=== PATIENT | male | born 1950 | race Caucasian/White ===

== ENCOUNTER 2016-04-27 16:00 | Inpatient (IN) | payer OTHER ==
[~2016-04-27] VITALS: Ht 177.8 cm; Wt 84.8 kg
[~2016-04-27 16:00] MED LIST: ALBUAER2 INH; BRVIN INH; FLUT1INH7 INH; GABA-113 PO; GLC5 PO; IPRASOL4 INH; LEVO50TA PO; OXGN; PRFINS INH; PRLSR20 PO; VERA120T2 PO
[2016-04-27] MEDS ORDERED: IPRA1AER2 PO (16:24)
[2016-04-27] MEDS ORDERED: ALBUT/IPRATROP 3MG/0.5MG NEB 3 ML VIAL INH ONE (16:30)
[2016-04-27 16:40] VITALS: PULSE 87; O2SAT 92
[2016-04-27 17:07] LABS: BASO % 0.5 %; BASO ABS # 0.04 K/uL (0-0.2); COMPLETE YES; EOS % 0.7 %; HEMATOCRIT 43.2 % (42-52); IG% 0.1 %; LYMPH % 16.2 %; LYMPH ABS # 1.19 K/uL (1.2-3.4); MEAN CELL VOLUME 98.6 fL (80-100); MEAN CORPUSCULAR HEMOGLOBIN 35.2 pg (25-34); MEAN CORPUSCULAR HGB CONC 35.6 g/dl (32-36); MEAN PLATELET VOLUME 11.7 fL (7.4-10.4); MONO % 8.3 %; NEUT % 74.2 %; PLATELET COUNT 124 K/uL (130-400); RED BLOOD COUNT 4.38 M/uL (4.7-6.1); WHITE BLOOD COUNT 7.36 K/uL (4.8-10.8)
--- NOTE | 2016-04-27 17:10 | DIAGNOSTIC IMAGING REPORT ---
CHEST ONE VIEW PORTABLE CLINICAL HISTORY: cough/sob dyspnea COMPARISON STUDY: 01/31/2015 FINDINGS: Chronic emphysematous change. Interstitial prominence considered chronic. No acute infiltrate. IMPRESSION: Emphysematous change. Mild chronic interstitial prominence. Electronically signed by: Adrián Vincent M.D. 04/27/2016 5:09 PM Dictated Date/Time: 04/27/2016 5:08 PM
[2016-04-27 17:19] LABS: PARTIAL THROMBOPLASTIN RATIO 1.1; PROTHROMBIN TIME (PATIENT) 10.5 SECONDS (9.0-12.0)
[2016-04-27] MEDS ORDERED: CEFTRIAXONE SOD INJ 1 GM ADDVIAL IV STA (17:22)
[2016-04-27 17:29] LABS: ALT/SGPT 52 U/L (12-78); BLOOD UREA NITROGEN 14 mg/dl (7-18); BUN/CREATININE RATIO 13.1 (10-20); CALCIUM 8.9 mg/dl (8.5-10.1); CARBON DIOXIDE 30 mmol/L (21-32); CHLORIDE 96 mmol/L (98-107); GLUCOSE 119 mg/dl (70-99); POTASSIUM 3.6 mmol/L (3.5-5.1); SODIUM 135 mmol/L (136-145)
[2016-04-27 17:34] LABS: ALB/GLOB RATIO 0.9 (0.9-2); ALKALINE PHOSPHATASE 84 U/L (45-117); AST/SGOT 51 U/L (15-37); CKMB/CK RATIO 2.8 (0-3.0)
--- NOTE | 2016-04-27 18:54 | EMERGENCY ROOM VISIT NOTE ---
History Report prepared by Saad: Shaq Freire Under the Supervision of: Dr. Rajinder Ritchie D.O. First contact with patient: 16:09 Chief Complaint: RESPIRATORY PROBLEMS Stated Complaint: SOB/WHEEZING Nursing Triage Summary: Pt to ED via ALS. Pt reports SOB since Saturday. Hx COPD and wears 4.5l NC at home. SOB increased since Saturday without relief. Upon stroke coordinator arrival, pt SPO2 88-89% 4.5LNC. Given duoneb, albuterol and 125mg solumedrol. Upon arrival to ED, wheezes ascultated bilaterally. Breathing labored. History of Present Illness The patient is a 66 year old male with a history of COPD who presents to the Emergency Room via ALS with complaints of worsening shortness of breath beginning three days prior to arrival. He associates a worsening productive cough for the past four days with today's symptoms. The patient states his symptoms worsen with exertion. It is noted the patient wears 4.5 L nasal canula of oxygen at home. As per EMS, the patient had an oxygen saturation of 88-89% on his 4.5 L NC of oxygen. EMS notes they gave the patient Duoneb, Albuterol, and 125 mg Solu-Medrol. The patient states he uses nebulizers at home. Source of History: patient, EMS Onset: 3 days [facility] Position: other (global) Quality: other (SOB) Timing: worsening Modifying Factors (Worsening): exertion Associated Symptoms: + SOB, + cough (worsening productive) Review of Systems See HPI for pertinent positives & negatives. A total of 10 systems reviewed and were otherwise negative. Past Medical & Surgical Medical Problems: (1) Acute respiratory failure (2) Bronchitis (3) Calculus Of Kidney (4) Diab Willa Wo Compl, Type Ii Or Unspec Type, Not Uncntrld (5) Low blood pressure Family History Cancer Diabetes mellitus Kidney disease Kidney stones Lung disease Social History Smoking Status: Current Every Day Smoker Alcohol Use: heavy Housing Status: lives alone Occupation Status: retired Current/Historical Medications Scheduled Albuterol (Ventolin), 2 PUFFS INH QID Arformoterol Tartrate (Brovana 15MCG/2ML Soln), 15 MCG INH BID Fluticasone Furoate-Vilanterol (Breo Ellipta 200-25 Mcg/INH), 1 PUFF INH QAM Formoterol Fumarate (Perforomist), 20 MCG INH BID Gabapentin (Neurontin), 300 MG PO HS Glipizide (Glipizide), 5 MG PO DAILY Ipratropium-Albuterol (Combivent Respimat), 2 PUFFS PO Q6 Levothyroxine Sodium (Synthroid), 50 MCG PO DAILY Omeprazole (Prilosec), 20 MG PO DAILY Oxygen (Oxygen), 4.5 LITERS NA CONTINOUS Verapamil Sust Rel (Calan Sr Ext Rel), 120 MG PO DAILY Allergies Coded Allergies: Poultry Meal (Verified Allergy, Intermediate, TURKEY - HIVES, RASH, NAUSEA , 04/27/16) Physical Exam Vital Signs Date Time Temp Pulse Resp B/P Pulse Ox O2 Delivery O2 Flow Rate FiO2 04/27/16 18:00 100 22 129/92 96 04/27/16 17:03 87 04/27/16 16:40 87 22 92 Nasal Cannula 5.0 04/27/16 16:22 98 Nasal Cannula 4.5 04/27/16 16:16 98 Nasal Cannula 4.5 04/27/16 16:09 99 Nasal Cannula 4.5 04/27/16 16:09 36.6 86 36 144/86 98 Nasal Cannula 4.5 Physical Exam CONSTITUTIONAL/VITAL SIGNS: Reviewed / noted above. GENERAL: Non-toxic in appearance. INTEGUMENTARY: Warm, dry, and [place]. HEAD: Normocephalic. EYES: without scleral icterus or trauma. ENT/OROPHARYNX: clear and moist. LYMPHADENOPATHY/NECK: Is supple without lymphadenopathy or meningismus. RESPIRATORY: Increased work of breathing. Bilateral expiratory wheezing. CARDIOVASCULAR: Regular rate and rhythm. GI/ABDOMEN: Soft and nontender. No organomegaly or pulsatile mass. No rebound or guarding. Normal bowel sounds. EXTREMITIES: Warm and well perfused. BACK: No CVA tenderness. NEUROLOGICAL: Intact without focal deficits. PSYCHIATRIC: normal affect. MUSCULOSKELETAL: Normally developed with good muscle tone. Medical Decision & Procedures ER Provider Diagnostic Interpretation: X ray results and stated below per my interpretation and radiology interpretation. CHEST ONE VIEW PORTABLE CLINICAL HISTORY: cough/sob dyspnea COMPARISON STUDY: 01/31/2015 FINDINGS: Chronic emphysematous change. Interstitial prominence considered chronic. No acute infiltrate. IMPRESSION: Emphysematous change. Mild chronic interstitial prominence. Electronically signed by: Adrián Vincent M.D. 04/27/2016 5:09 PM Laboratory Results 04/27/16 16:51 Red Blood Count 4.38, Mean Corpuscular Volume 98.6, Mean Corpuscular Hemoglobin 35.2, Mean Corpuscular Hemoglobin Concent 35.6, Mean Platelet Volume 11.7, Neutrophils (%) (Auto) 74.2, Lymphocytes (%) (Auto) 16.2, Monocytes (%) (Auto) 8.3, Eosinophils (%) (Auto) 0.7, Basophils (%) (Auto) 0.5, Neutrophils # (Auto) 5.46, Lymphocytes # (Auto) 1.19, Monocytes # (Auto) 0.61, Eosinophils # (Auto) 0.05, Basophils # (Auto) 0.04 04/27/16 16:51 Test 04/27/16 16:51 White Blood Count 7.36 K/uL (4.8-10.8) Red Blood Count 4.38 M/uL (4.7-6.1) Hemoglobin 15.4 g/dL (14.0-18.0) Hematocrit 43.2 % (42-52) Mean Corpuscular Volume 98.6 fL (80-100) Mean Corpuscular Hemoglobin 35.2 pg (25-34) Mean Corpuscular Hemoglobin Concent 35.6 g/dl (32-36) Platelet Count 124 K/uL (130-400) Mean Platelet Volume 11.7 fL (7.4-10.4) Neutrophils (%) (Auto) 74.2 % Lymphocytes (%) (Auto) 16.2 % Monocytes (%) (Auto) 8.3 % Eosinophils (%) (Auto) 0.7 % Basophils (%) (Auto) 0.5 % Neutrophils # (Auto) 5.46 K/uL (1.4-6.5) Lymphocytes # (Auto) 1.19 K/uL (1.2-3.4) Monocytes # (Auto) 0.61 K/uL (0.11-0.59) Eosinophils # (Auto) 0.05 K/uL (0-0.5) Basophils # (Auto) 0.04 K/uL (0-0.2) RDW Standard Deviation 44.5 fL (36.4-46.3) RDW Coefficient of Variation 12.4 % (11.5-14.5) Immature Granulocyte % (Auto) 0.1 % Immature Granulocyte # (Auto) 0.01 K/uL (0.00-0.02) Prothrombin Time 10.5 SECONDS (9.0-12.0) Prothromb Time International Ratio 1.0 (0.9-1.1) Activated Partial Thromboplast Time 28.1 SECONDS (21.0-31.0) Partial Thromboplastin Ratio 1.1 Anion Gap 9.0 mmol/L (3-11) Est Creatinine Clear Calc Drug Dose 70.1 ml/min Estimated GFR () 81.8 Estimated GFR (Non- 70.6 BUN/Creatinine Ratio 13.1 (10-20) Calcium Level 8.9 mg/dl (8.5-10.1) Total Bilirubin 0.9 mg/dl (0.2-1) Aspartate Amino Transf (AST/SGOT) 51 U/L (15-37) Alanine Aminotransferase (ALT/SGPT) 52 U/L (12-78) Alkaline Phosphatase 84 U/L (45-117) Total Creatine Kinase 130 U/L (39-308) Creatine Kinase MB 3.7 ng/ml (0.5-3.6) Creatine Kinase MB Ratio 2.8 (0-3.0) Troponin I < 0.015 ng/ml (0-0.045) Total Protein 7.5 gm/dl (6.4-8.2) Albumin 3.5 gm/dl (3.4-5.0) Globulin 4.0 gm/dl (2.5-4.0) Albumin/Globulin Ratio 0.9 (0.9-2) Laboratory results as stated above per my review. Medications Administered Medications (Trade) Dose Ordered Sig/Fadi Route Start Time Stop Time Status Last Admin Dose Admin Albuterol/ Ipratropium (Duoneb) 12 ml ONE ONCE INH 04/27/16 16:30 04/27/16 16:31 DC 04/27/16 16:40 12 ML Ceftriaxone Sodium (Rocephin Inj) 1 gm NOW STAT IV 04/27/16 17:22 04/27/16 17:24 DC 04/27/16 18:15 1 GM ECG Indication: SOB/dyspnea Rate (beats per minute): 83 Rhythm: normal sinus Findings: no ectopy, other (no acute injury) ED Course 1616: Previous medical records were reviewed. The patient was evaluated in room B5. A complete history and physical examination was performed. 163: Ordered Duoneb 12 ml INH. 172: Ordered Rocephin Inj 1 gm IV. 184: Reevaluated the patient at this time, and he is feeling better but does not feel comfortable going home. 1851: I spoke to Marissa Geller (Hospitalist) about the patient's case , and she will follow the patient for further evaluation. Medical Decision The differential was considered includes acute myocardial infarction, acute coronary syndrome, myocarditis, pericarditis, pericardial effusions /tamponad, esophageal perforation, pulmonary embolism, pneumonia, pneumothorax, cardiomyopathy, congestive heart, anemia , COPD/asthma exacerbation. This is a 66-year-old male who presents to the ED with a chief complaint of shortness of breath. The patient states that he developed a cough on Saturday, 4 days ago. He also reports increasing shortness of breath over the past several days. He normally uses 4.5 L of nasal cannula oxygen at home. His oxygen saturations at home were 88-99% when EMS arrived on his 4.5 L. The patient received Solu-Medrol IV as well as a DuoNeb treatment in route to the hospital. The reports his cough as being productive but he swallows it. He has not seen what looks like. The patient's physical exam reveals stable vital signs. His oxygen saturations are adequate on his 4.5 L although he does appear to have increased work of breathing and tachypnea and he has expiratory wheezing on exam. A chest x-ray did not show acute disease or pneumonia. EKG shows a normal sinus rhythm. CBC and complete metabolic panel were normal. Troponin is negative. The patient was treated with a one hour DuoNeb treatment here. He was also given IV Rocephin. He was not given steroids because of his diabetes. The patient's saturations did improve during his ED stay. He was still having some mild respiratory complaints at the time of disposition. He did not feel comfortable going home at this point. I spoke with the hospitalist , who will see the patient for further inpatient observation. Consults Time Called: 1850 Consulting Physician: Marissa Geller (Hospitalist) Returned Call: 1851 I spoke to Marissa Geller (Hospitalist) about the patient's case, and she will follow the patient for further evaluation. Impression Primary Impression: COPD (chronic obstructive pulmonary disease) Additional Impression: Bronchitis Scribe Attestation The scribe's documentation has been prepared under my direction and personally reviewed by me in its entirety. I confirm that the note above accurately reflects all work, treatment, procedures, and medical decision making performed by me. Departure Information Dispostion Being Evaluated By Hospitalist (Marissa Geller (Hospitalist)) Referrals Freedom Taylor M.D. (PCP) Problem Qualifiers
[2016-04-27] MEDS ORDERED: METHYLPREDNISOLONE IV 40 MG in SYRINGE 0 ML IV ONE (20:00)
[2016-04-27 20:09] LABS: MAGNESIUM 2.1 mg/dl (1.8-2.4); THYROID STIMULATING HORMONE 0.326 uIu/ml (0.300-4.500)
[2016-04-27 20:17] LABS: ARTERIAL BLD GAS O2 SATURATION 97.2 % (90-95); ARTERIAL BLOOD GAS BASE EXCESS 2.8 mEq/L (-9-1.8); ARTERIAL BLOOD GAS HCO3 29 mmol/L (19-24); ARTERIAL BLOOD GAS PO2 95 mm/Hg (80-95); ARTERIAL BLOOD GAS pH 7.39 (7.35-7.45)
[2016-04-27 20:18] LABS: ALLEN TEST POS (POS); O2 ADMINISTRATION 5 L
[2016-04-27] MEDS ORDERED: ACETAMINOPHEN 325 MG TAB PO PRN (20:30)
[2016-04-27] MEDS ORDERED: LORAZEPAM 2 MG/ML 1 ML VIAL IV PRN ×2 (20:30→22:30)
[2016-04-27] MEDS ORDERED: PROMETHAZINE HCL INJ 12.5 MG in SODIUM CHLORIDE 0.9% 50ML 50 ML IV PRN (20:30)
[2016-04-27] MEDS ORDERED: NITROGLYCERIN 0.4 MG SL PER TAB CHARGE SL PRN (20:30)
[2016-04-27] MEDS ORDERED: GLUCAGON FOR INJ 1 MG VIAL SQ PRN (20:30)
[2016-04-27] MEDS ORDERED: GLUCOSE 40% GEL 15 GM TUBE PO PRN (20:30)
[2016-04-27] MEDS ORDERED: GLUCOSE 10 TABS/TUBE PO PRN (20:30)
[2016-04-27] MEDS ORDERED: DEXTROSE 50% 50 ML SYR IV PRN (20:30)
[2016-04-27] MEDS ORDERED: ONDANSETRON INJ 2 MG/ML 2 ML VIAL IV PRN (20:30)
[2016-04-27] MEDS ORDERED: MoRPHine SULFATE 2 MG/ML CARP IV PRN (20:30)
[2016-04-27] MEDS ORDERED: TRAMADOL HCL 50 MG TAB PO PRN (20:30)
[2016-04-27] MEDS ORDERED: LEVALBUTEROL/IPRATROPIUM NEB INH PRN (20:30)
[2016-04-27] MEDS: IPRATROPIUM BROMIDE NEB SOLN 0.02% 2.5 ML VIAL INH SCH (21:00)
[2016-04-27] MEDS: LEVALBUTEROL 1.25MG/0.5ML NEB INH SCH (21:00)
[2016-04-27] MEDS: INSULIN ASPART 100 UNITS/ML 3 ML PEN SC SCH (21:00)
[2016-04-27] MEDS ORDERED: LEVALBUTEROL/IPRATROPIUM NEB INH SCH (21:00)
[2016-04-27 21:24] VITALS: BP 145/83; PULSE 94; TEMP 36.6; O2SAT 96; Ht 177.8 cm; Wt 84.8 kg
[2016-04-27] MEDS ORDERED: AMPICILLIN/SULBACTAM SOD INJ 3,000 MG in SODIUM CHLORIDE 0.9% 100ML 100 ML IV ONE (21:45)
[2016-04-27] MEDS ORDERED: NSS + 20MEQ KCL 1000ML 1,000 ML IV ONE (22:00)
[2016-04-27] MEDS ORDERED: LORAZEPAM INJ 0.25 MG in SYRINGE 0.125 ML IV PRN (22:30)
[2016-04-27] MEDS ORDERED: IPRATROPIUM BROMIDE NEB SOLN 0.02% 2.5 ML VIAL INH PRN (22:30)
[2016-04-27] MEDS ORDERED: LEVALBUTEROL 1.25MG/0.5ML NEB INH PRN (22:30)
[2016-04-27] MEDS ORDERED: POLYETHYLENE (MIRALAX) 17 GM PACK PO PRN (22:30)
[2016-04-27] MEDS ORDERED: POLYETHYLENE (MIRALAX) 17 GM PACK PO ONE (22:45)
[2016-04-27] MEDS ORDERED: PANTOprazole SOD 40 MG TAB PO ONE (22:53)
[2016-04-27] MEDS ORDERED: DOCUSATE SODIUM 100 MG CAP PO ONE (23:00)
[2016-04-27] MEDS: GABAPENTIN 300 MG CAP PO SCH (23:09)
[2016-04-27 23:15] VITALS: BP 145/81; PULSE 80; TEMP 36.5; O2SAT 95
[2016-04-28] VITALS (10 sets, daily range): BP systolic 126–153; BP diastolic 72–83; PULSE 64–82; TEMP 36.3–36.7; O2SAT 94–97
[2016-04-28] MEDS: LEVALBUTEROL 1.25MG/0.5ML NEB INH SCH ×4 (02:19→19:10)
[2016-04-28] MEDS: IPRATROPIUM BROMIDE NEB SOLN 0.02% 2.5 ML VIAL INH SCH ×4 (02:19→19:10)
[2016-04-28] MEDS ORDERED: INSULIN GLARGINE SOLOSTAR 100 UNITS/ML 3 ML PEN SC ONE (04:53)
[2016-04-28 05:28] LABS: BASO % 0.2 %; BASO ABS # 0.01 K/uL (0-0.2); COMPLETE YES; HEMATOCRIT 38.6 % (42-52); IG% 0.2 %; LYMPH % 9.7 %; LYMPH ABS # 0.42 K/uL (1.2-3.4); MEAN CELL VOLUME 95.5 fL (80-100); MEAN CORPUSCULAR HEMOGLOBIN 34.7 pg (25-34); MEAN CORPUSCULAR HGB CONC 36.3 g/dl (32-36); MEAN PLATELET VOLUME 10.9 fL (7.4-10.4); MONO % 3.2 %; NEUT % 86.7 %; PLATELET COUNT 116 K/uL (130-400); RED BLOOD COUNT 4.04 M/uL (4.7-6.1); WHITE BLOOD COUNT 4.33 K/uL (4.8-10.8)
[2016-04-28 05:55] LABS: BLOOD UREA NITROGEN 17 mg/dl (7-18); BUN/CREATININE RATIO 17.4 (10-20); CALCIUM 8.6 mg/dl (8.5-10.1); CARBON DIOXIDE 34 mmol/L (21-32); CHLORIDE 100 mmol/L (98-107); GLUCOSE 155 mg/dl (70-99); POTASSIUM 4.3 mmol/L (3.5-5.1); SODIUM 139 mmol/L (136-145)
[2016-04-28] MEDS: LEVOTHYROXINE 50 MCG TAB PO SCH (06:06)
--- NOTE | 2016-04-28 06:18 | HISTORY & PHYSICAL EXAMINATION ---
DATE OF ADMISSION: 04/27/2016 PRIMARY CARE DOCTOR: Dr. Schmidt. CHIEF COMPLAINT: Worsening cough, shortness of breath. HISTORY OF PRESENT ILLNESS: Medical history significant for chronic respiratory failure secondary to COPD on home O2, ongoing tobacco abuse, PAT as per records, DM2 on oral meds, hypothyroidism. episodic thrombocytopenia. Recent confinement last January 2015 for COPD exacerbation. Last few days px noted worsening junky cough, sob symptoms. Admits to some coughing w/meals. Describes chest pain described as burning, heartburn like. As per EMS, O2 sats 80s on 4 liters. At the Emergency Room, the patient noted to be in respiratory distress. Px received ceftriaxone and albuterol for COPD exacerbation. MEDICAL HISTORY: As above. Recent visit at [facility] last April 2016. Very severe COPD as per records with FEV 27%. Chest CT contrast January 2016 showed interval resolution, small nodular ground-glass opacities in the lung, probable fibrosis right apex; [address] recommended to assure stability. As per recent [facility] note, ipratropium to added to albuterol nebs. ENT referral for dysphagia swallowing. Patient counseled about smoking cessation> Chest CT in 6 months. Pulmonary rehab routinely. Consider obtaining alpha 1 antitrypsin. Consider NPO versus PSG to rule out sleep apnea to determine oxygen need. SURGERIES: Urologic procedures. HOME MEDICATIONS: IVentolin, Neurontin, glipizide, Combivent, Synthroid, oxygen. Px stopped taking Prilosec weeks ago because he reflux was better. ALLERGIES: poultry. FAMILY HISTORY: Family history of heart disease. PERSONAL AND SOCIAL HISTORY: Pack a day. No chronic intake of alcoholic beverages. 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 REVIEW OF SYSTEMS: As per HPI, all other ROS negative. PHYSICAL EXAMINATION: VITAL SIGNS: Blood pressure noted to be 144/86 pulse rate 86, RR 36 and later 22, temperature 36.6, sats 98 on 4 liters. GENERAL: Noted to be in respiratory distress, looks older for stated age. SKIN: Normal. HEENT: [place] palpebral conjunctivae. Dry mucosa. NECK: Short neck. RESPIRATORY: Expiratory wheezes. CHEST: Regular rate and rhythm. ABDOMEN: Some distention, nontender. EXTREMITIES: No edema. no tenderness NEUROLOGIC: No gross focality. LABS: Hemoglobin 15.1, white cell count 7.3, platelets 124. Sodium 136, potassium 4.6, chloride 96, CO2 of 30, BUN 40, creatinine 1.1, glucose was noted to be 119. trop 0 Hemoglobin A1c from September 2015 was 5.4. Chest x-ray showed emphysema, interstitial prominence. ABG: pH 7.39, pCO2 of 49, pO2 of 95 on 5 liters. EKG: Rate 85, normal sinus rhythm, incomplete right bundle branch block. ASSESSMENT: 1. Acute on chronic hypoxemic respiratory failure secondary to chronic obstructive pulmonary disease exacerbation poss aspiration pneumonitis no sepsis 2. ongoing tobacco abuse 3. DM2 on oral meds, well controlled as of recent HgA1C. 4. chronic thrombocytopenia 5. GERD/heartburn sx px stopped taking home PPI for some weeks now PLAN: PCU supplemental O2 Augmentin for possible aspiration pneumonitis, nebs, steroids. Pulmonary consult for COPD exacerbation, resp failure. Swallow eval. ISS BG goal 140-180, may need basal insulin. Patient due for hemoglobin A1c recheck. Nicotine patch. resume home PPI DVT prophylaxis, SCDs RE thrombocytopenia. Full code. MTDD
[2016-04-28 06:40] LABS: ESTIMATED AVERAGE GLUCOSE 108 mg/dl; HA1C FLAG Normal (Normal)
[2016-04-28] MEDS: INSULIN ASPART 100 UNITS/ML 3 ML PEN SC SCH ×4 (08:55→20:37)
[2016-04-28] MEDS: AMOXICILLIN/CLAVULANATE TAB 875 MG TAB PO SCH ×2 (08:58→16:50)
[2016-04-28] MEDS: VERAPAMIL HCL 120 MG TABCR PO SCH (08:58)
[2016-04-28] MEDS: DOCUSATE SODIUM 100 MG CAP PO SCH (08:58)
[2016-04-28] MEDS: NICOTINE 21 MG/24 HR TDSY TD SCH (08:58)
[2016-04-28] MEDS: PANTOprazole SOD 40 MG TAB PO SCH (08:59)
[2016-04-28] MEDS ORDERED: CONSULT PHARMACY SCH (09:00)
--- NOTE | 2016-04-28 10:29 | Pulmonary Consultation ---
History General Date of Service: Apr 28, 2016. Stated Complaint: Respiratory Failure HPI The patient is a 66 year old male who presents to [facility] with complaints of Respiratory Failure. The patient's primary care provider is Derrell Schmidt M.D.(SÁNCHEZ). 66-year-old male with very severe COPD admitted with acute on chronic respiratory insufficiency/failure. The patient has been experiencing fever, rhinitis, sore throat and progressive dyspnea on exertion/at rest over the last 3-4 days. He is also noted increasing cough but inability to clear her mucous secretions. During our interview the patient denied: Pleurisy, cardiac chest pain, chills or hemoptysis. EMS records note SaO2 of 80s on 4L ED treatment: Ceftriaxone Abulterol AB.39/49/95/295LAa gradient 91 Serum Bicarb: 34 (baseline PaCO2: 60) CXR: hilar fullness with no acute intra-parenchymal changes compared to 2014 CT thorax (01/18/15) emphysema with RUL bronchiectasis vs. nodule Treatment: Incoterm patch Prednisone 40mg Augmentin 875/125 BID Xopenex/Atrovent Nebs Q4 prn Xopenex/Atrovent Nebs Q6 Historian: patient, EMS Review of Systems Constitutional: reports: malaise, weakness Eyes: reports: no symptoms ENT: reports: rhinorrhea, sore throat Cardiovascular: reports: no symptoms Respiratory: reports: MCGILL, cough, shortness of breath Gastrointestinal: reports: other (dysphagia) Genitourinary - Male: reports: no symptoms Musculoskeletal: reports: myalgias Integumentary: reports: no symptoms Neurologic: reports: no symptoms Psychiatric: reports: no symptoms Endocrine: no symptoms Hematologic / Lymphatic: no symptoms Allergic / Immunologic: no symptoms Past Medical History Past Medical History: 1)Very Sever COPD (FEV1: 19%-01/18/15) a.Pulm Rehab: () b.Oximetry (03/14/12) <=88% 40sec 2)ACOS: FEV1 (0.67/19%--0.94/27%) post-bronchodilator 3)O2 dependent3.5L 4)MIRANDA 5)Tobacco abuse 6)DM II 7)Hypothyroidism 8)HTN 9)Neuropathy 10)Colonic poly Past Medical History: COPD, diabetes, hypothyroidism, other Past Surgical History: 1)Urologic 2)Bronchoscopy 3)Colonoscopy/polypectomy 4)PTCA (03/19/08) Sandi Past Surgical History: other Family History Cancer Diabetes mellitus Kidney disease Kidney stones Lung disease Social History Hx Tobacco Use In Past Year?: Yes Smoking Status: Current Every Day Smoker Alcohol: socially, daily, other Drug Use: none Housing status: lives alone Occupational Status: retired Immunizations History of Influenza Vaccine: N/A History of Tetanus Vaccine?: Yes Tetanus Immunization Date: Jul 17, 2010 History of Pneumococcal: Yes Pneumococcal Date: Dec 06, 2008 History of Hepatitis B Vaccine: No History of MDRO History of MDRO: No Allergies Coded Allergies: Poultry Meal (Verified Allergy, Intermediate, TURKEY - HIVES, RASH, NAUSEA , 04/27/16) Current Medications Reported Home Medications Medications Dose Route/Sig Max Daily Dose Days Date Category Combivent Respimat (Ipratropium-Albuterol) 1 Aer Aer 2 Puffs PO Q6 04/27/16 Reported Brovana 15MCG/2ML Soln (Arformoterol Tartrate) Nebu 15 Mcg INH BID 02/02/15 Rx Perforomist (Formoterol Fumarate) 20 Mcg/2 Ml Nebu 20 Mcg INH BID 02/02/15 Rx Breo Ellipta 200-25 Mcg/INH (Fluticasone Furoate-Vilanterol) 1 Inh Inh 1 Puff INH QAM 01/27/15 Reported Glipizide 5 Mg Tab 5 Mg PO DAILY 01/27/15 Reported Calan Sr Ext Rel (Verapamil HCl) 120 Mg Tabcr 120 Mg PO DAILY 07/19/12 Rx Ventolin (Albuterol) Inh 2 Puffs INH QID 5 07/17/12 Reported Synthroid (Levothyroxine Sodium) 50 Mcg Tab 50 Mcg PO DAILY 03/10/12 Reported Oxygen Gas 4.5 Liters NA CONTINOUS 06/14/11 Reported Neurontin (Gabapentin) 300 Mg Cap 300 Mg PO HS 06/14/11 Reported Prilosec (Omeprazole) 20 Mg Capcr 20 Mg PO DAILY 06/28/09 Reported Physical Physical Exam Vital Signs: Date Time Temp Pulse Resp B/P Pulse Ox O2 Delivery O2 Flow Rate FiO2 04/28/16 08:00 Nasal Cannula 4.5 04/28/16 07:48 36.7 82 16 126/76 95 Nasal Cannula 5.0 04/28/16 07:37 81 18 95 Nasal Cannula 5.0 04/28/16 04:21 36.7 82 20 130/74 94 4.5 04/28/16 04:00 Nasal Cannula 4.5 04/28/16 02:20 81 18 97 Nasal Cannula 5.0 04/28/16 00:00 Nasal Cannula 5.0 04/27/16 23:15 36.5 80 18 145/81 95 Room Air 04/27/16 21:24 36.6 94 20 145/83 96 Nasal Cannula 5.0 04/27/16 20:24 98 16 157/82 92 Nasal Cannula 4.5 04/27/16 18:00 100 22 129/92 96 04/27/16 17:03 87 04/27/16 16:40 87 22 92 Nasal Cannula 5.0 04/27/16 16:22 98 Nasal Cannula 4.5 04/27/16 16:16 98 Nasal Cannula 4.5 04/27/16 16:09 99 Nasal Cannula 4.5 04/27/16 16:09 36.6 86 36 144/86 98 Nasal Cannula 4.5 General Appearance: mild distress Head: NORMOCEPHALIC, ATRAUMATIC Eyes: PERRLA, NO DISCHARGE, EOMI, SCLERAE NORMAL ENT: NORMAL EAR EXAM, NORMAL NASAL EXAM, other (posterior pharyngeal erythema) Neck: NORMAL RANGE OF MOTION, NO TENDERNESS, TRACHEA MIDLINE, NO STRIDOR Respiratory: other (decreased breath sounds bilaterally) Cardiovasular: REGULAR RATE/RHYTHM, NORMAL S1S2, NO M/G/R, NO MURMUR, NO GALLOP Abdomen: NON TENDER, NORMAL BOWEL SOUNDS, NO REBOUND, NO MASSES, NO GUARDING, NO ORGANOMEGALY Genitourinary - Male: EXTERNAL GENITALIA NORMAL Back: NORMAL INSPECTION, NO MIDLINE TENDERNESS, NO CVA TENDERNESS, NO PARAVERTEBRAL TTP Upper Extremities: NO EDEMA, NO DEFORMITY, NORMAL ROM Lower Extremities: NO EDEMA, NO DEFORMITY, NORMAL ROM Pulses: carotid (R) (2+), carotid (L) (2+), posterior tibial (R), posterior tibial (L) Neuro: ALERT, ORIENTED x 3, NORMAL MOTOR EXAM, NORMAL SENSATION, NORMAL CEREBELLAR EXAM Reflexes: biceps (R) (2+), bicpes (L) (2+), patellar (R) (2+), patellar (L) (2+ ) Babinski Testing: right (downgoing), left (downgoing) Psychiatric: NORMAL AFFECT, NO SUICIDAL IDEATION, CONTRACTS FOR SAFETY Diagnostics Labs Results Past 24 Hours Test 04/27/16 16:51 04/27/16 20:07 04/27/16 22:55 04/28/16 05:10 Range/Units White Blood Count 7.36 4.33 4.8-10.8 K/uL Red Blood Count 4.38 4.04 4.7-6.1 M/uL Hemoglobin 15.4 14.0 14.0-18.0 g/dL Hematocrit 43.2 38.6 42-52 % Mean Corpuscular Volume 98.6 95.5 80-100 fL Mean Corpuscular Hemoglobin 35.2 34.7 25-34 pg Mean Corpuscular Hemoglobin Concent 35.6 36.3 32-36 g/dl Platelet Count 124 116 130-400 K/uL Mean Platelet Volume 11.7 10.9 7.4-10.4 fL Neutrophils (%) (Auto) 74.2 86.7 % Lymphocytes (%) (Auto) 16.2 9.7 % Monocytes (%) (Auto) 8.3 3.2 % Eosinophils (%) (Auto) 0.7 0.0 % Basophils (%) (Auto) 0.5 0.2 % Neutrophils # (Auto) 5.46 3.75 1.4-6.5 K/uL Lymphocytes # (Auto) 1.19 0.42 1.2-3.4 K/uL Monocytes # (Auto) 0.61 0.14 0.11-0.59 K/uL Eosinophils # (Auto) 0.05 0.00 0-0.5 K/uL Basophils # (Auto) 0.04 0.01 0-0.2 K/uL RDW Standard Deviation 44.5 42.3 36.4-46.3 fL RDW Coefficient of Variation 12.4 12.1 11.5-14.5 % Immature Granulocyte % (Auto) 0.1 0.2 % Immature Granulocyte # (Auto) 0.01 0.01 0.00-0.02 K/uL Prothrombin Time 10.5 9.0-12.0 SECONDS Prothromb Time International Ratio 1.0 0.9-1.1 Activated Partial Thromboplast Time 28.1 21.0-31.0 SECONDS Partial Thromboplastin Ratio 1.1 Sodium Level 135 139 136-145 mmol/L Potassium Level 3.6 4.3 3.5-5.1 mmol/L Chloride Level 96 100 98-107 mmol/L Carbon Dioxide Level 30 34 21-32 mmol/L Anion Gap 9.0 5.0 3-11 mmol/L Blood Urea Nitrogen 14 17 7-18 mg/dl Creatinine 1.10 1.00 0.60-1.40 mg/dl Est Creatinine Clear Calc Drug Dose 70.1 77.1 ml/min Estimated GFR () 81.8 91.8 Estimated GFR (Non- 70.6 79.2 BUN/Creatinine Ratio 13.1 17.4 10-20 Random Glucose 119 155 70-99 mg/dl Estimated Average Glucose 108 mg/dl Hemoglobin A1c 5.4 4.5-5.6 % Calcium Level 8.9 8.6 8.5-10.1 mg/dl Magnesium Level 2.1 1.8-2.4 mg/dl Total Bilirubin 0.9 0.2-1 mg/dl Aspartate Amino Transf (AST/SGOT) 51 15-37 U/L Alanine Aminotransferase (ALT/SGPT) 52 12-78 U/L Alkaline Phosphatase 84 45-117 U/L Total Creatine Kinase 130 39-308 U/L Creatine Kinase MB 3.7 0.5-3.6 ng/ml Creatine Kinase MB Ratio 2.8 0-3.0 Troponin I < 0.015 < 0.015 0-0.045 ng/ml Pro-B-Type Natriuretic Peptide 456 0-900 pg/ml Total Protein 7.5 6.4-8.2 gm/dl Albumin 3.5 3.4-5.0 gm/dl Globulin 4.0 2.5-4.0 gm/dl Albumin/Globulin Ratio 0.9 0.9-2 Thyroid Stimulating Hormone (TSH) 0.326 0.300-4.500 uIu/ml Hepatitis C Antibody Screen NEG NEG Arterial Blood pH 7.39 7.35-7.45 Arterial Blood Partial Pressure CO2 49 35-46 mmHg Arterial Blood Partial Pressure O2 95 80-95 mm/Hg Arterial Blood HCO3 29 19-24 mmol/L Arterial Blood Oxygen Saturation 97.2 90-95 % Arterial Blood Base Excess 2.8 -9-1.8 mEq/L Arterial Blood Gas Delivery 5 L Hussein Test POS POS Bedside Glucose 256 70-99 mg/dl Test 04/28/16 07:25 Range/Units Bedside Glucose 147 70-99 mg/dl Microbiology Results 04/27/16 Blood Culture, Received Pending 04/27/16 Blood Culture, Received Pending Diagnostic Radiology CXR: hilar fullness with no acute intra-parenchymal changes compared to 2014 EKG Interpretation: NORMAL EKG Impression Assessment and Plan 66-year-old male admitted with acute on chronic respiratory insufficiency: #1 Acute COPD/ACOS (Asthma Combined Obstructive Syndrom) flare: At this time agree with continuing prednisone dosing and nebulizers as scheduled. I do suggest as the patient has a history of possibly dysphagia which could cause minimal aspiration and exacerbation that we get more aggressive with his antibiotic regimen and switch to ceftriaxone/Flagyl at this time. Also suggest that we initiate Dornase therapy as well as Tamiflu, obtaining nasal swab for influenza this patient has clinical history suggestive of influenza. Sputum samples are currently pending the patient is unable to produce at this time. Continuation of oxygen support maintaining SaO2 between 88 and 92% #2 Chronic COPD/ACOS: We'll monitor the patient for 24 hours then we initiate outpatient chronic therapy. I will require the [facility] reports. But at this time LAMA/LABA therapy with addition of inhaled corticosteroids would be recommended. Patient is on these then initiation of Daliresp or also be warranted. #3 ID: This patient has history of possible dysphagia/aspiration and clinical history suggestive of influenza we will initiate more aggressive antibiotic regimen as well as Tamiflu. Also place patient in droplet precaution until he is been ruled out for influenza. #4. nodule: Patient does have a history of pulmonary nodule/bronchiectasis previously seen on CAT scan from 01/18/2015. He notes that in the [facility] system is had follow-up CTs which would be nice to obtain. He has also been worked up by bronchoscopy possibly even a/ENB. Patient reports would be helpful to guide future treatment/follow-up. Thank you for this consultation.
[2016-04-28] MEDS: CEFTRIAXONE SOD INJ 2,000 MG in DEXTROSE 5% 50ML 50 ML IV SCH (12:48)
[2016-04-28] MEDS: METRONIDAZOLE / NSS 500 MG in PREMIXED NSS 100 ML IV SCH ×2 (13:45→19:40)
[2016-04-28 14:28] LABS: INFLUENZA A PCR Neg for Influ A (NEG); INFLUENZA B PCR Neg for Influ B (NEG)
--- NOTE | 2016-04-28 14:52 | Progress Note ---
Internal Med Progress Note Date of Service: Apr 28, 2016. Provider Documentation: SUBJECTIVE: Patient is seen and examined at bedside. States having SOB and wheezing associated with dry cough. Denies any chest pain, nausea, dizziness, hemoptysis. Admits to continued smoking at home. OBJECTIVE: Vital Signs-as noted below Physical Exam: General Appearance:Moderately built and nourished, mild resp. distress Head: normocephalic, Atraumatic Eyes: normal inspection, EOMI, PERRLA Neck: supple, Trachea midline Respiratory/Chest: Decreased breath sounds, Expiratory wheezes Cardiovascular: S1, S2, No murmur Abdomen/GI:Soft, Non tender, Bowel sounds present Extremities/Musculoskelatal:normal inspection, no edema Neurologic/Psych:AAOX3, grossly no focal neurological deficits Skin: normal color, warm Lab data as noted below. ASSESSMENT & PLAN: Acute on chronic hypoxemic respiratory failure Acute COPD/Asthma Combined Obstructive Syndrome Exacerbation Current smoker On 4.5L NC oxygen at home PCR influenza:Negative; DC Tamiflu CXR:Emphysematous change. Mild chronic interstitial prominence Continue IV antibiotics, bronchodilators, glucocorticoids Appreciate Pulmonology help Continue oxygen support, Dornase therapy per Pulm Follow up cultures Possible aspiration Swallow eval Continue IV antibiotics Hypothyroidism Continue levothyroxine Tobacco abuse use disorder States tried to quit multiple times but was not successful Nicotine patch. Counselled to quit smoking DM II Well controlled Last A1c:5.4 Hold oral meds ISS, Accu checks Chronic Thrombocytopenia: Continue to monitor DVT PX: SCDs CODE STATUS: Full code. DISPOSITION: continue to monitor PROCEDURES: CT CHEST: JAN 2016: Impression: Interval resolution of small nodular ground glass opacities in the lungs. The patient has developed probable fibrosis in the right apex but [address] scan is recommended to assure stability. Vital Signs: Date Time Temp Pulse Resp B/P Pulse Ox O2 Delivery O2 Flow Rate FiO2 04/28/16 15:54 Nasal Cannula 4.5 04/28/16 14:55 36.3 72 16 138/76 97 Nasal Cannula 4.5 04/28/16 14:40 69 18 96 Nasal Cannula 5.0 04/28/16 12:21 Nasal Cannula 4.5 04/28/16 11:49 36.6 70 16 149/83 96 Nasal Cannula 4.5 04/28/16 08:00 Nasal Cannula 4.5 04/28/16 07:48 36.7 82 16 126/76 95 Nasal Cannula 5.0 04/28/16 07:37 81 18 95 Nasal Cannula 5.0 04/28/16 04:21 36.7 82 20 130/74 94 4.5 04/28/16 04:00 Nasal Cannula 4.5 04/28/16 02:20 81 18 97 Nasal Cannula 5.0 04/28/16 00:00 Nasal Cannula 5.0 04/27/16 23:15 36.5 80 18 145/81 95 Room Air 04/27/16 21:24 36.6 94 20 145/83 96 Nasal Cannula 5.0 04/27/16 20:24 98 16 157/82 92 Nasal Cannula 4.5 04/27/16 18:00 100 22 129/92 96 Lab Results: Results Past 24 Hours Test 04/27/16 20:07 04/27/16 22:55 04/28/16 05:10 04/28/16 07:25 Range/Units Arterial Blood pH 7.39 7.35-7.45 Arterial Blood Partial Pressure CO2 49 35-46 mmHg Arterial Blood Partial Pressure O2 95 80-95 mm/Hg Arterial Blood HCO3 29 19-24 mmol/L Arterial Blood Oxygen Saturation 97.2 90-95 % Arterial Blood Base Excess 2.8 -9-1.8 mEq/L Arterial Blood Gas Delivery 5 L Hussein Test POS POS Bedside Glucose 256 147 70-99 mg/dl White Blood Count 4.33 4.8-10.8 K/uL Red Blood Count 4.04 4.7-6.1 M/uL Hemoglobin 14.0 14.0-18.0 g/dL Hematocrit 38.6 42-52 % Mean Corpuscular Volume 95.5 80-100 fL Mean Corpuscular Hemoglobin 34.7 25-34 pg Mean Corpuscular Hemoglobin Concent 36.3 32-36 g/dl Platelet Count 116 130-400 K/uL Mean Platelet Volume 10.9 7.4-10.4 fL Neutrophils (%) (Auto) 86.7 % Lymphocytes (%) (Auto) 9.7 % Monocytes (%) (Auto) 3.2 % Eosinophils (%) (Auto) 0.0 % Basophils (%) (Auto) 0.2 % Neutrophils # (Auto) 3.75 1.4-6.5 K/uL Lymphocytes # (Auto) 0.42 1.2-3.4 K/uL Monocytes # (Auto) 0.14 0.11-0.59 K/uL Eosinophils # (Auto) 0.00 0-0.5 K/uL Basophils # (Auto) 0.01 0-0.2 K/uL RDW Standard Deviation 42.3 36.4-46.3 fL RDW Coefficient of Variation 12.1 11.5-14.5 % Immature Granulocyte % (Auto) 0.2 % Immature Granulocyte # (Auto) 0.01 0.00-0.02 K/uL Sodium Level 139 136-145 mmol/L Potassium Level 4.3 3.5-5.1 mmol/L Chloride Level 100 98-107 mmol/L Carbon Dioxide Level 34 21-32 mmol/L Anion Gap 5.0 3-11 mmol/L Blood Urea Nitrogen 17 7-18 mg/dl Creatinine 1.00 0.60-1.40 mg/dl Est Creatinine Clear Calc Drug Dose 77.1 ml/min Estimated GFR () 91.8 Estimated GFR (Non- 79.2 BUN/Creatinine Ratio 17.4 10-20 Random Glucose 155 70-99 mg/dl Calcium Level 8.6 8.5-10.1 mg/dl Troponin I < 0.015 0-0.045 ng/ml Test 04/28/16 11:00 04/28/16 11:25 04/28/16 16:06 Range/Units Influenza Type A (RT-PCR) Neg for Influ A NEG Influenza Type A Antigen Neg for Influ A NEG Influenza Type B Antigen Neg for Influ B NEG Influenza Type B (RT-PCR) Neg for Influ B NEG Bedside Glucose 116 155 70-99 mg/dl
[2016-04-28] MEDS: DORNASE ALFA (2500U) 2.5MG/2.5ML INH SCH (19:10)
[2016-04-28] MEDS: GABAPENTIN 300 MG CAP PO SCH (20:36)
[2016-04-28] MEDS ORDERED: OSELTAMIVIR PHOSPHATE SUSP 75 MG/12.5 ML UDP PO SCH (21:00)
[2016-04-29] VITALS (11 sets, daily range): BP systolic 128–161; BP diastolic 75–88; PULSE 68–93; TEMP 36.3–36.7; O2SAT 93–98
[2016-04-29] MEDS: METRONIDAZOLE / NSS 500 MG in PREMIXED NSS 100 ML IV SCH ×4 (02:07→20:02)
[2016-04-29] MEDS: IPRATROPIUM BROMIDE NEB SOLN 0.02% 2.5 ML VIAL INH SCH ×4 (02:23→19:14)
[2016-04-29] MEDS: LEVALBUTEROL 1.25MG/0.5ML NEB INH SCH ×4 (02:23→19:14)
[2016-04-29 05:29] LABS: BASO % 0.1 %; BASO ABS # 0.01 K/uL (0-0.2); COMPLETE YES; EOS % 0.1 %; HEMATOCRIT 39.1 % (42-52); IG% 0.2 %; LYMPH % 7.9 %; LYMPH ABS # 1.12 K/uL (1.2-3.4); MEAN CELL VOLUME 98.2 fL (80-100); MEAN CORPUSCULAR HEMOGLOBIN 34.2 pg (25-34); MEAN CORPUSCULAR HGB CONC 34.8 g/dl (32-36); MEAN PLATELET VOLUME 11.5 fL (7.4-10.4); NEUT % 84.7 %; PLATELET COUNT 119 K/uL (130-400); RED BLOOD COUNT 3.98 M/uL (4.7-6.1); WHITE BLOOD COUNT 14.13 K/uL (4.8-10.8)
[2016-04-29] MEDS: LEVOTHYROXINE 50 MCG TAB PO SCH (05:50)
[2016-04-29 05:55] LABS: BUN/CREATININE RATIO 21.8 (10-20); CALCIUM 8.4 mg/dl (8.5-10.1); POTASSIUM 3.8 mmol/L (3.5-5.1)
[2016-04-29] MEDS: DORNASE ALFA (2500U) 2.5MG/2.5ML INH SCH ×2 (07:29→19:14)
[2016-04-29] MEDS: DOCUSATE SODIUM 100 MG CAP PO SCH (08:15)
[2016-04-29] MEDS: PANTOprazole SOD 40 MG TAB PO SCH (08:16)
[2016-04-29] MEDS: VERAPAMIL HCL 120 MG TABCR PO SCH (08:16)
[2016-04-29] MEDS: INSULIN ASPART 100 UNITS/ML 3 ML PEN SC SCH ×4 (08:17→20:24)
[2016-04-29] MEDS: NICOTINE 21 MG/24 HR TDSY TD SCH (08:19)
[2016-04-29] MEDS ORDERED: INSULIN GLARGINE SOLOSTAR 100 UNITS/ML 3 ML PEN SC SCH (09:00)
[2016-04-29] MEDS: CEFTRIAXONE SOD INJ 2,000 MG in DEXTROSE 5% 50ML 50 ML IV SCH (13:05)
--- NOTE | 2016-04-29 16:38 | Progress Note ---
Internal Med Progress Note Date of Service: Apr 29, 2016. Provider Documentation: SUBJECTIVE: Patient is seen and examined at bedside. Patient says he subjectively feels SOB , wheezing is slightly better. Denies any chest pain. Persistent dry cough. Eager to get discharged. OBJECTIVE: Vital Signs-as noted below Physical Exam: General Appearance:Moderately built and nourished, mild resp. distress Head: normocephalic, Atraumatic Eyes: normal inspection, EOMI, PERRLA Neck: supple, Trachea midline Respiratory/Chest: Decreased breath sounds, Expiratory wheezes Cardiovascular: S1, S2, No murmur Abdomen/GI:Soft, Non tender, Bowel sounds present Extremities/Musculoskelatal:normal inspection, no edema Neurologic/Psych:AAOX3, grossly no focal neurological deficits Skin: normal color, warm Lab data as noted below. ASSESSMENT & PLAN: Acute on chronic hypoxemic respiratory failure Acute COPD/Asthma Combined Obstructive Syndrome Exacerbation Current smoker On 4.5L NC oxygen at home PCR influenza:Negative CXR:Emphysematous change. Mild chronic interstitial prominence Continue IV antibiotics, bronchodilators, glucocorticoids Appreciate Pulmonology help Continue oxygen support, Dornase therapy per Pulm Follow up cultures:Pending Possible aspiration Swallow eval done Continue IV antibiotics Hypothyroidism Continue levothyroxine Tobacco abuse use disorder States tried to quit multiple times but was not successful Nicotine patch. Counselled to quit smoking DM II Well controlled Last A1c:5.4 Hold oral meds ISS, Accu checks Chronic Thrombocytopenia: Continue to monitor DVT PX: SCDs CODE STATUS: Full code. DISPOSITION: continue to monitor PROCEDURES: CT CHEST: JAN 2016: Impression: Interval resolution of small nodular ground glass opacities in the lungs. The patient has developed probable fibrosis in the right apex but [address] scan is recommended to assure stability. Vital Signs: Date Time Temp Pulse Resp B/P Pulse Ox O2 Delivery O2 Flow Rate FiO2 04/29/16 16:00 Nasal Cannula 3.0 04/29/16 15:30 36.3 72 18 128/79 98 Nasal Cannula 4.0 04/29/16 14:39 70 18 96 Nasal Cannula 4.0 04/29/16 12:00 Nasal Cannula 3.0 04/29/16 11:50 36.6 76 20 157/83 97 4.0 04/29/16 08:23 93 18 147/75 94 Nasal Cannula 3.0 04/29/16 08:00 94 Nasal Cannula 3.0 04/29/16 07:22 69 18 94 Nasal Cannula 4.0 04/29/16 07:21 36.3 73 20 131/77 93 4.0 04/29/16 04:00 Nasal Cannula 4.0 04/29/16 03:10 36.7 84 22 131/75 93 Nasal Cannula 4.0 04/29/16 02:24 82 18 98 Nasal Cannula 4.0 04/29/16 00:05 Nasal Cannula 4.0 04/28/16 23:28 36.4 67 18 153/72 94 Nasal Cannula 4.0 04/28/16 20:15 Nasal Cannula 4.0 04/28/16 19:38 36.5 64 18 129/80 95 Nasal Cannula 4.0 04/28/16 19:11 78 18 97 Nasal Cannula 4.0 Lab Results: Results Past 24 Hours Test 04/28/16 19:45 04/29/16 05:15 04/29/16 07:32 04/29/16 11:31 Range/Units Bedside Glucose 221 107 100 70-99 mg/dl White Blood Count 14.13 4.8-10.8 K/uL Red Blood Count 3.98 4.7-6.1 M/uL Hemoglobin 13.6 14.0-18.0 g/dL Hematocrit 39.1 42-52 % Mean Corpuscular Volume 98.2 80-100 fL Mean Corpuscular Hemoglobin 34.2 25-34 pg Mean Corpuscular Hemoglobin Concent 34.8 32-36 g/dl Platelet Count 119 130-400 K/uL Mean Platelet Volume 11.5 7.4-10.4 fL Neutrophils (%) (Auto) 84.7 % Lymphocytes (%) (Auto) 7.9 % Monocytes (%) (Auto) 7.0 % Eosinophils (%) (Auto) 0.1 % Basophils (%) (Auto) 0.1 % Neutrophils # (Auto) 11.97 1.4-6.5 K/uL Lymphocytes # (Auto) 1.12 1.2-3.4 K/uL Monocytes # (Auto) 0.99 0.11-0.59 K/uL Eosinophils # (Auto) 0.01 0-0.5 K/uL Basophils # (Auto) 0.01 0-0.2 K/uL RDW Standard Deviation 44.9 36.4-46.3 fL RDW Coefficient of Variation 12.5 11.5-14.5 % Immature Granulocyte % (Auto) 0.2 % Immature Granulocyte # (Auto) 0.03 0.00-0.02 K/uL Sodium Level 141 136-145 mmol/L Potassium Level 3.8 3.5-5.1 mmol/L Chloride Level 102 98-107 mmol/L Carbon Dioxide Level 33 21-32 mmol/L Anion Gap 6.0 3-11 mmol/L Blood Urea Nitrogen 22 7-18 mg/dl Creatinine 1.00 0.60-1.40 mg/dl Est Creatinine Clear Calc Drug Dose 77.1 ml/min Estimated GFR () 91.8 Estimated GFR (Non- 79.2 BUN/Creatinine Ratio 21.8 10-20 Random Glucose 136 70-99 mg/dl Calcium Level 8.4 8.5-10.1 mg/dl Test 04/29/16 16:23 Range/Units Bedside Glucose 131 70-99 mg/dl Microbiology Results 04/29/16 Gram Stain, Received Pending 04/29/16 Sputum Culture, Received Pending
[2016-04-29] MEDS: GABAPENTIN 300 MG CAP PO SCH (21:09)
[2016-04-30] VITALS (11 sets, daily range): BP systolic 143–188; BP diastolic 78–100; PULSE 61–88; TEMP 36.3–36.6; O2SAT 90–99
[2016-04-30] MEDS: METRONIDAZOLE / NSS 500 MG in PREMIXED NSS 100 ML IV SCH ×2 (01:40→07:49)
[2016-04-30] MEDS: IPRATROPIUM BROMIDE NEB SOLN 0.02% 2.5 ML VIAL INH SCH ×4 (02:15→20:15)
[2016-04-30] MEDS: LEVALBUTEROL 1.25MG/0.5ML NEB INH SCH ×4 (02:15→20:15)
[2016-04-30] MEDS ORDERED: SODIUM CHLORIDE 0.65% NA SOLN 45 ML (OCEAN) ONE (03:25)
[2016-04-30 06:11] LABS: BASO % 0.2 %; BASO ABS # 0.02 K/uL (0-0.2); COMPLETE YES; EOS % 0.1 %; IG% 0.3 %; LYMPH % 15.6 %; LYMPH ABS # 1.73 K/uL (1.2-3.4); MEAN CELL VOLUME 97.6 fL (80-100); MEAN CORPUSCULAR HEMOGLOBIN 33.6 pg (25-34); MEAN CORPUSCULAR HGB CONC 34.4 g/dl (32-36); MEAN PLATELET VOLUME 11.4 fL (7.4-10.4); NEUT % 74.8 %; PLATELET COUNT 131 K/uL (130-400)
[2016-04-30] MEDS: DORNASE ALFA (2500U) 2.5MG/2.5ML INH SCH ×2 (07:21→20:15)
[2016-04-30] MEDS: INSULIN ASPART 100 UNITS/ML 3 ML PEN SC SCH ×4 (07:53→20:59)
[2016-04-30] MEDS: LEVOTHYROXINE 50 MCG TAB PO SCH (07:54)
--- NOTE | 2016-04-30 08:00 | PULMONARY PROGRESS NOTE ---
DATE: 04/30/2016 The patient is comfortable this morning, although he continues to have wheezing and states he generally wheezes all the time. He states he feels 100% better than he did at the time of admission. He has not had any significant cough. States his shortness of breath is improved. When I reviewed his records, he has severe chronic obstructive lung disease on PFTs done last year. He denies any aspiration. He has not had any significant sputum production but occasionally will cough with eating. He also complains of some nasal stuffiness and wondered whether he could use a nasal spray. He continues to smoke at least a pack of cigarettes on a daily basis, had been on pulmonary rehab last year as well. PHYSICAL EXAMINATION: VITAL SIGNS: Stable. His blood pressure is 148/85, oxygen saturation 93% on 4 liters. His weight is 84.3 kilograms. I\T\O's, 845 in, 1250 out. According to nurses' notes, he had a fairly good night last night and is on oxygen at 4 liters per minute. Continues to have some chest congestion, started nasal spray last night. HEENT: Reveals some hyperemia of the nasal mucosa. Posterior pharynx reveals no evidence of thrush. NECK: There is no neck vein distention or HJR. No nodes are noted. Significant hyperinflation of the thorax is noted. CHEST: Muscular hypertrophy of the accessory muscles is noted as well. BREASTS: Normal. No axillary adenopathy noted. HEART: Regular rate and rhythm. No murmurs are heard. LUNGS: Continue to reveal some rhonchi bilateral, wheezing with inspiration and expiration. ABDOMEN: Soft, nontender. EXTREMITIES: He has no cyanosis, clubbing or edema. He did have a PET scan done in 2013 to evaluate a solitary pulmonary nodule, showed no uptake. Apparently, repeat CT scan showed that the left upper lobe nodular density had resolved. Chest x-ray now reveals changes consistent with hyperinflation with some interstitial thickening, especially at the lung bases. No pneumothorax is noted. LABORATORY DATA: White count is 11.1, hemoglobin 14.1, platelet count of 131,000. Blood gas revealed pH 7.39, pCO2 of 49, pO2 of 95 on 5 liters. His CO2 is elevated at 33 on the electrolytes and was 30 at the time of admission. Sugars have been in the 155-221 range. His TSH was normal at 0.326. Liver function studies are unremarkable. IMPRESSION: 1. Respiratory failure with hypercapnia secondary to chronic obstructive pulmonary disease. 2. Severe emphysema GOLD class 4. 3. Diabetes mellitus. RECOMMENDATIONS: 1. At this point, I would continue with his present medications including the prednisone 40 mg daily, Protonix for good reflux prevention and ulcer prophylaxis, and good control of his sugars. 2. At this point, I believe I would continue on the antimicrobial agents, although the blood cultures from 04/27/2016 are unremarkable and there is no evidence of any pneumonia and his white count was normal at the time of admission. I think 5-7 days of metronidazole and ceftriaxone would be appropriate. If there is no evidence of any aspiration pneumonia, then I think the metronidazole could be discontinued, ceftriaxone probably could be reduced to 1 gram daily. 3. Smoking cessation. We discussed this at great length. 4. Consider adding on a long-acting bronchodilator with an inhaled steroid such as Symbicort 160/4.5 two puffs b.i.d. It may help to improve the wheezing, airway edema, and help as a long-acting bronchodilator. Overall, at this point he is stable.
[2016-04-30] MEDS: VERAPAMIL HCL 120 MG TABCR PO SCH (08:06)
[2016-04-30] MEDS: DOCUSATE SODIUM 100 MG CAP PO SCH (08:06)
[2016-04-30] MEDS: NICOTINE 21 MG/24 HR TDSY TD SCH (08:06)
[2016-04-30] MEDS: PANTOprazole SOD 40 MG TAB PO SCH (08:07)
--- NOTE | 2016-04-30 12:54 | Progress Note ---
Internal Med Progress Note Date of Service: Apr 30, 2016. Provider Documentation: SUBJECTIVE: Patient is seen and examined at bedside. SOB, cough, wheezing are improving. Reports chest tightness intermittently. No other complaints. OBJECTIVE: Vital Signs-as noted below Physical Exam: General Appearance:Moderately built and nourished, mild resp. distress Head: normocephalic, Atraumatic Eyes: normal inspection, EOMI, PERRLA Neck: supple, Trachea midline Respiratory/Chest: Decreased breath sounds, Expiratory wheezes Cardiovascular: S1, S2, No murmur Abdomen/GI:Soft, Non tender, Bowel sounds present Extremities/Musculoskelatal:normal inspection, no edema Neurologic/Psych:AAOX3, grossly no focal neurological deficits Skin: normal color, warm Lab data as noted below. ASSESSMENT & PLAN: Acute on chronic hypoxemic respiratory failure Acute COPD/Asthma Combined Obstructive Syndrome Exacerbation Current smoker On 4.5L [place] oxygen at home PCR influenza:Negative CXR:Emphysematous change. Mild chronic interstitial prominence Continue IV antibiotics, bronchodilators, glucocorticoids Appreciate Pulmonology help Continue oxygen support, Dornase therapy per Pulm Blood cultures:No growth to date Follow up sputum cultures Start Symbicort BID DC flagyl as speech eval: no signs of aspiration Hypothyroidism Continue levothyroxine Tobacco abuse use disorder States tried to quit multiple times but was not successful Nicotine patch. Counselled to quit smoking DM II Well controlled Last A1c:5.4 Hold oral meds ISS, Accu checks Chronic Thrombocytopenia: Continue to monitor DVT PX: SCDs CODE STATUS: Full code. DISPOSITION: continue to monitor PROCEDURES: CT CHEST: JAN 2016: Impression: Interval resolution of small nodular ground glass opacities in the lungs. The patient has developed probable fibrosis in the right apex but [address] scan is recommended to assure stability. Vital Signs: Date Time Temp Pulse Resp B/P Pulse Ox O2 Delivery O2 Flow Rate FiO2 04/30/16 12:13 36.6 74 18 159/94 90 Room Air 04/30/16 08:26 36.5 66 18 146/78 99 Room Air 04/30/16 08:00 Nasal Cannula 2.5 04/30/16 07:15 88 18 98 Nasal Cannula 4.0 04/30/16 04:00 Nasal Cannula 4.0 04/30/16 03:58 36.6 69 24 148/85 93 Nasal Cannula 4.0 04/30/16 02:15 74 18 98 Nasal Cannula 4.0 04/30/16 00:08 36.4 67 20 168/82 98 Room Air 04/30/16 00:00 Nasal Cannula 4.0 04/29/16 20:00 Nasal Cannula 3.0 04/29/16 19:27 36.4 68 18 161/88 98 Nasal Cannula 4.0 04/29/16 19:17 75 18 97 Nasal Cannula 4.0 04/29/16 16:00 Nasal Cannula 3.0 04/29/16 15:30 36.3 72 18 128/79 98 Nasal Cannula 4.0 04/29/16 14:39 70 18 96 Nasal Cannula 4.0 Lab Results: Results Past 24 Hours Test 04/29/16 16:23 04/29/16 20:08 04/30/16 05:50 04/30/16 07:52 Range/Units Bedside Glucose 131 167 87 70-99 mg/dl White Blood Count 11.10 4.8-10.8 K/uL Red Blood Count 4.20 4.7-6.1 M/uL Hemoglobin 14.1 14.0-18.0 g/dL Hematocrit 41.0 42-52 % Mean Corpuscular Volume 97.6 80-100 fL Mean Corpuscular Hemoglobin 33.6 25-34 pg Mean Corpuscular Hemoglobin Concent 34.4 32-36 g/dl Platelet Count 131 130-400 K/uL Mean Platelet Volume 11.4 7.4-10.4 fL Neutrophils (%) (Auto) 74.8 % Lymphocytes (%) (Auto) 15.6 % Monocytes (%) (Auto) 9.0 % Eosinophils (%) (Auto) 0.1 % Basophils (%) (Auto) 0.2 % Neutrophils # (Auto) 8.31 1.4-6.5 K/uL Lymphocytes # (Auto) 1.73 1.2-3.4 K/uL Monocytes # (Auto) 1.00 0.11-0.59 K/uL Eosinophils # (Auto) 0.01 0-0.5 K/uL Basophils # (Auto) 0.02 0-0.2 K/uL RDW Standard Deviation 44.6 36.4-46.3 fL RDW Coefficient of Variation 12.4 11.5-14.5 % Immature Granulocyte % (Auto) 0.3 % Immature Granulocyte # (Auto) 0.03 0.00-0.02 K/uL Test 04/30/16 11:44 Range/Units Bedside Glucose 120 70-99 mg/dl
[2016-04-30] MEDS: CEFTRIAXONE SOD INJ 2,000 MG in DEXTROSE 5% 50ML 50 ML IV SCH (13:13)
[2016-04-30] MEDS: GABAPENTIN 300 MG CAP PO SCH (19:45)
[2016-04-30] MEDS: BUDESONIDE/FORMOTEROL FUMARATE 160/4.5 60 PUFFS/INHALER INH SCH (21:04)
[2016-05-01] VITALS (9 sets, daily range): BP systolic 134–180; BP diastolic 76–98; PULSE 59–105; TEMP 36.4–36.6; O2SAT 96–99
[2016-05-01] MEDS: IPRATROPIUM BROMIDE NEB SOLN 0.02% 2.5 ML VIAL INH SCH ×3 (02:08→14:23)
[2016-05-01] MEDS: LEVALBUTEROL 1.25MG/0.5ML NEB INH SCH ×3 (02:08→14:23)
[2016-05-01] MEDS: LEVOTHYROXINE 50 MCG TAB PO SCH (06:12)
[2016-05-01 07:22] LABS: BASO % 0.3 %; BASO ABS # 0.03 K/uL (0-0.2); COMPLETE YES; EOS % 0.7 %; HEMATOCRIT 38.5 % (42-52); IG% 0.3 %; LYMPH % 23.2 %; LYMPH ABS # 2.25 K/uL (1.2-3.4); MEAN CELL VOLUME 98.5 fL (80-100); MEAN CORPUSCULAR HEMOGLOBIN 34.8 pg (25-34); MEAN CORPUSCULAR HGB CONC 35.3 g/dl (32-36); MEAN PLATELET VOLUME 11.5 fL (7.4-10.4); MONO % 9.3 %; NEUT % 66.2 %; PLATELET COUNT 132 K/uL (130-400); RED BLOOD COUNT 3.91 M/uL (4.7-6.1); WHITE BLOOD COUNT 9.68 K/uL (4.8-10.8)
[2016-05-01] MEDS: DORNASE ALFA (2500U) 2.5MG/2.5ML INH SCH (07:30)
--- NOTE | 2016-05-01 07:38 | PROGRESS NOTE ---
DATE: 05/01/2016 PULMONARY PROGRESS NOTE SUBJECTIVE: The patient is very comfortable this morning. He has oxygen at home, has been ambulating in the hallway without difficulty. He states he wants to push himself before possibly going home today. He denies shortness of breath. States he feels as good as he did 6 years ago. He slept very well last night. OBJECTIVE: VITAL SIGNS: Stable. Oxygen saturation 96% on 3 liters. His blood pressure 134/76. I\T\O is 5 in, 192 out. Weight is stable at 84.9 kilograms. He was 86 kilograms on the . HEENT: Unremarkable. No thrush is noted. No adenopathy noted. There is hyperinflation of the thorax with some mild hypertrophy of the accessory muscles of respiration. HEART: Regular rate and rhythm, second heart sound normal. No murmurs heard. LUNGS: Clear with decreased breath sounds. No fremitus is noted. ABDOMEN: Soft, nontender. EXTREMITIES: He has no cyanosis, clubbing or edema. LABORATORY DATA: CBC is pending for today. Yesterday, white count was 11. Sugars have been in the 87 to 211 range. Blood gas did reveal pH 7.39, pCO2 of 49, pO2 of 95 on 5 liters. Chest film showed some hyperinflation with some mild interstitial changes. IMPRESSION: 1. Respiratory failure with hypercapnia, markedly improved. 2. Chronic obstructive pulmonary disease with exacerbation. RECOMMENDATIONS: 1. At this point, I think the ceftriaxone could be discontinued. I continue on Symbicort. Dornase could be discontinued and certainly, we could place him on 40 of prednisone and taper that down over about 7-10 days. 2. Smoking cessation. We discussed this at great length. Overall, he is stable.
[2016-05-01] MEDS: INSULIN ASPART 100 UNITS/ML 3 ML PEN SC SCH ×2 (08:12→11:00)
[2016-05-01] MEDS: VERAPAMIL HCL 120 MG TABCR PO SCH (08:15)
[2016-05-01] MEDS: PANTOprazole SOD 40 MG TAB PO SCH (08:15)
[2016-05-01] MEDS: DOCUSATE SODIUM 100 MG CAP PO SCH (08:15)
[2016-05-01] MEDS: BUDESONIDE/FORMOTEROL FUMARATE 160/4.5 60 PUFFS/INHALER INH SCH (08:15)
[2016-05-01] MEDS: NICOTINE 21 MG/24 HR TDSY TD SCH (08:16)
--- NOTE | 2016-05-01 11:06 | Progress Note ---
Internal Med Progress Note Date of Service: May 01, 2016. Provider Documentation: SUBJECTIVE: The patient was seen and examined Breathing is much better Ambulating well and feels like going home OBJECTIVE: Vital Signs-as noted below Exam: General-No distress at rest Eyes-Normal ENT-normal Neck-Supple Lungs-decreased breath sound bilaterally No crackles Heart-Regular,no murmur appreciated Abdomen-Benign,no masses,bowel sound present Extremities-Trace edema bilaterally Neuro-AAOx3 Lab data as noted below. ASSESSMENT & PLAN: Acute on chronic hypoxemic respiratory failure Secondary to Acute COPD/Asthma Current smoker ,On 4.5L [place] oxygen at home CXR:Emphysematous change. Mild chronic interstitial prominence Has been on IV antibiotics, bronchodilators, glucocorticoids Appreciate Pulmonology input and recommendation Blood cultures:No growth to date Follow up sputum cultures-pin point growth Antibiotic Discontinued,Dornase Discontinued On oral Prednisone -tapering Clinically much better Home this afternoon Tobacco abuse use disorder States tried to quit multiple times but was not successful Continue Nicotine patch. Counselled to quit smoking Hypothyroidism Continue levothyroxine DM I\-type II Well controlled Last A1c:5.4 Hold oral meds ISS, Accu checks Chronic Thrombocytopenia: Platelet count -132 05/01/16 DVT PX: SCDs CODE STATUS: Full code. DISPOSITION: Home this afternoon Vital Signs: Date Time Temp Pulse Resp B/P Pulse Ox O2 Delivery O2 Flow Rate FiO2 05/01/16 08:00 Nasal Cannula 2.5 05/01/16 07:30 80 18 96 Nasal Cannula 4.0 05/01/16 07:07 36.5 63 20 180/90 99 Nasal Cannula 3.0 05/01/16 04:00 Nasal Cannula 2.5 05/01/16 03:44 36.6 105 20 134/76 96 3.0 05/01/16 02:08 80 18 96 Nasal Cannula 4.0 05/01/16 00:21 36.5 85 20 156/78 96 3.0 05/01/16 00:01 Nasal Cannula 2.5 04/30/16 21:04 65 144/93 04/30/16 20:15 73 18 98 Nasal Cannula 4.0 04/30/16 20:00 Nasal Cannula 2.5 04/30/16 19:58 36.3 61 16 188/79 99 188/100 04/30/16 16:00 Nasal Cannula 2.5 04/30/16 15:45 36.6 67 16 143/84 94 04/30/16 14:06 65 18 98 Nasal Cannula 4.0 04/30/16 12:13 36.6 74 18 159/94 90 Room Air 04/30/16 12:00 Nasal Cannula 2.5 Lab Results: Results Past 24 Hours Test 04/30/16 11:44 04/30/16 16:44 05/01/16 06:25 05/01/16 07:23 Range/Units Bedside Glucose 120 211 82 70-99 mg/dl White Blood Count 9.68 4.8-10.8 K/uL Red Blood Count 3.91 4.7-6.1 M/uL Hemoglobin 13.6 14.0-18.0 g/dL Hematocrit 38.5 42-52 % Mean Corpuscular Volume 98.5 80-100 fL Mean Corpuscular Hemoglobin 34.8 25-34 pg Mean Corpuscular Hemoglobin Concent 35.3 32-36 g/dl Platelet Count 132 130-400 K/uL Mean Platelet Volume 11.5 7.4-10.4 fL Neutrophils (%) (Auto) 66.2 % Lymphocytes (%) (Auto) 23.2 % Monocytes (%) (Auto) 9.3 % Eosinophils (%) (Auto) 0.7 % Basophils (%) (Auto) 0.3 % Neutrophils # (Auto) 6.40 1.4-6.5 K/uL Lymphocytes # (Auto) 2.25 1.2-3.4 K/uL Monocytes # (Auto) 0.90 0.11-0.59 K/uL Eosinophils # (Auto) 0.07 0-0.5 K/uL Basophils # (Auto) 0.03 0-0.2 K/uL RDW Standard Deviation 44.4 36.4-46.3 fL RDW Coefficient of Variation 12.4 11.5-14.5 % Immature Granulocyte % (Auto) 0.3 % Immature Granulocyte # (Auto) 0.03 0.00-0.02 K/uL
[2016-05-01] MEDS ORDERED: CEFTRIAXONE SOD INJ 1 GM in DEXTROSE 5% ADD-VANTAGE 50ML 50 ML IV SCH (12:45)
[2016-05-01] MEDS ORDERED: PRD20 PO (14:08)
[2016-05-01] MEDS ORDERED: NCDT21 TD (14:08)
[2016-05-01] MEDS ORDERED: SYMIN INH (14:08)
--- NOTE | 2016-05-01 14:12 | Discharge Instructions ---
Discharge Instructions Date of Service May 01, 2016. Admission Reason for Admission: Respiratory Failure Discharge Discharge Diagnosis / Problem: Acute Respiratory failure,COPD ,On home Oxygen Discharge Goals Goal(s): Prevent Disease Progression Activity Recommendations Activity Limitations: resume your previous activity . Instructions / Follow-Up Instructions / Follow-Up Dr Schmidt on 05/08/16 at 1:00PM .Keep /make appointment with your Lung Doctor. Current Hospital Diet Patient's current hospital diet: Diabetes Type 2 Diet Discharge Diet Recommended Diet: Diabetes Type 2 Diet Pending Studies Studies pending at discharge: no Laboratory Results Hemoglobin A1c Test 04/27/16 16:51 Range/Units Estimated Average Glucose 108 mg/dl Hemoglobin A1c 5.4 4.5-5.6 % Medical Emergencies . Who to Call and When: Medical Emergencies: If at any time you feel your situation is an emergency, please call 911 immediately. . Non-Emergent Contact Non-Emergency issues call your: Primary Care Provider . Past History Medical & Surgical History: (1) COPD (chronic obstructive pulmonary disease) (2) Acute respiratory failure (3) Bronchitis (4) Diab Willa Wo Compl, Type Ii Or Unspec Type, Not Uncntrld . "Provider Documentation" section prepared by Shalini Madsen. VTE Core Measure Inpt VTE Proph given/why not?: SCD's (Thrombocytopenia)
--- NOTE | 2016-05-01 16:59 | Discharge Summary ---
Discharge Summary Date of Service May 01, 2016. Discharge Summary Admission Date: Apr 27, 2016 at 19:49 Discharge Date: May 01, 2016 Discharge Disposition: Home Principal Diagnosis: Acute Respiratory failure,COPD ,On home Oxygen Secondary Diagnoses/Problems: Please see H&P Consultations: Pulmonary Medication Reconciliation New Medications: Budesonide/Formoterol Fumarate (Symbicort 160-4.5 Mcg/Act) 60 Puffs/Inhaler Aero 2 PUFFS INH BID for 30 Days, #60 DOSE Nicotine (Nicotine) 1 Patch Tdsy 1 PATCH TD QAM for 30 Days, #30 Prednisone (Prednisone) 20 Mg Tab 40 MG PO UD for 10 Days, #13 TAB 2 po daily for 2 days,1 and a 1/2 po daily for 3 days,1 po daily for 3 days,1/2 podaily for 3 days Continued Medications: Albuterol (Ventolin) Inh 2 PUFFS INH QID for 5 Days, INHALER Arformoterol Tartrate (Brovana 15MCG/2ML Soln) Nebu 15 MCG INH BID, #60 AMP Formoterol Fumarate (Perforomist) 20 Mcg/2 Ml Nebu 20 MCG INH BID, #60 AMP Gabapentin (Neurontin) 300 Mg Cap 300 MG PO HS, 0 Refills Glipizide (Glipizide) 5 Mg Tab 5 MG PO DAILY Ipratropium-Albuterol (Combivent Respimat) 1 Aer Aer 2 PUFFS PO Q6, #4 Levothyroxine Sodium (Synthroid) 50 Mcg Tab 50 MCG PO DAILY, TAB Omeprazole (Prilosec) 20 Mg Capcr 20 MG PO DAILY, 0 Refills Oxygen (Oxygen) Gas 4.5 LITERS NA CONTINOUS Verapamil Sust Rel (Calan Sr Ext Rel) 120 Mg Tabcr 120 MG PO DAILY, #30 TAB 2 Refills Discontinued Medications: Fluticasone Furoate-Vilanterol (Breo Ellipta 200-25 Mcg/INH) 1 Inh Inh 1 PUFF INH QAM Admission Information HPI (per Admitting provider): DATE OF ADMISSION: 04/27/2016 PRIMARY CARE DOCTOR: Dr. Schmidt. CHIEF COMPLAINT: Worsening cough, shortness of breath. HISTORY OF PRESENT ILLNESS: Medical history significant for chronic respiratory failure secondary to COPD on home O2, ongoing tobacco abuse, PAT as per records, DM2 on oral meds, hypothyroidism. episodic thrombocytopenia. Recent confinement last January 2015 for COPD exacerbation. Last few days px noted worsening junky cough, sob symptoms. Admits to some coughing w/meals. Describes chest pain described as burning, heartburn like. As per EMS, O2 sats 80s on 4 liters. At the Emergency Room, the patient noted to be in respiratory distress. Px received ceftriaxone and albuterol for COPD exacerbation. MEDICAL HISTORY: As above. Recent visit at [facility] last April 2016. Very severe COPD as per records with FEV 27%. Chest CT contrast January 2016 showed interval resolution, small nodular ground-glass opacities in the lung, probable fibrosis right apex; [address] recommended to assure stability. As per recent [facility] note, ipratropium to added to albuterol nebs. ENT referral for dysphagia swallowing. Patient counseled about smoking cessation> Chest CT in 6 months. Pulmonary rehab routinely. Consider obtaining alpha 1 antitrypsin. Consider NPO versus PSG to rule out sleep apnea to determine oxygen need. SURGERIES: Urologic procedures. HOME MEDICATIONS: IVentolin, Neurontin, glipizide, Combivent, Synthroid, oxygen. Px stopped taking Prilosec weeks ago because he reflux was better. ALLERGIES: poultry. FAMILY HISTORY: Family history of heart disease. PERSONAL AND SOCIAL HISTORY: Pack a day. No chronic intake of alcoholic beverages. 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 REVIEW OF SYSTEMS: As per HPI, all other ROS negative. PHYSICAL EXAMINATION: VITAL SIGNS: Blood pressure noted to be 144/86 pulse rate 86, RR 36 and later 22, temperature 36.6, sats 98 on 4 liters. GENERAL: Noted to be in respiratory distress, looks older for stated age. SKIN: Normal. HEENT: [place] palpebral conjunctivae. Dry mucosa. NECK: Short neck. RESPIRATORY: Expiratory wheezes. CHEST: Regular rate and rhythm. ABDOMEN: Some distention, nontender. EXTREMITIES: No edema. no tenderness NEUROLOGIC: No gross focality. LABS: Hemoglobin 15.1, white cell count 7.3, platelets 124. Sodium 136, potassium 4.6, chloride 96, CO2 of 30, BUN 40, creatinine 1.1, glucose was noted to be 119. trop 0 Hemoglobin A1c from September 2015 was 5.4. Chest x-ray showed emphysema, interstitial prominence. ABG: pH 7.39, pCO2 of 49, pO2 of 95 on 5 liters. EKG: Rate 85, normal sinus rhythm, incomplete right bundle branch block. ASSESSMENT: 1. Acute on chronic hypoxemic respiratory failure secondary to chronic obstructive pulmonary disease exacerbation poss aspiration pneumonitis no sepsis 2. ongoing tobacco abuse 3. DM2 on oral meds, well controlled as of recent HgA1C. 4. chronic thrombocytopenia 5. GERD/heartburn sx px stopped taking home PPI for some weeks now PLAN: PCU supplemental O2 Augmentin for possible aspiration pneumonitis, nebs, steroids. Pulmonary consult for COPD exacerbation, resp failure. Swallow eval. ISS BG goal 140-180, may need basal insulin. Patient due for hemoglobin A1c recheck. Nicotine patch. resume home PPI DVT prophylaxis, SCDs RE thrombocytopenia. Full code. Dictated: 04/28/16 0503 Transcribed: 04/28/16 0614 <Electronically signed by Dell Hamilton M.D.> Signed: 04/28/16 1728 ES Dell Hamilton M.D. Hospital Course Acute on chronic hypoxemic respiratory failure Secondary to Acute COPD/Asthma Current smoker ,On 4.5L [place] oxygen at home CXR:Emphysematous change. Mild chronic interstitial prominence Has been on IV antibiotics, bronchodilators, glucocorticoids Appreciate Pulmonology input and recommendation Blood cultures:No growth to date Follow up sputum cultures-pin point growth Antibiotic Discontinued,Dornase Discontinued On oral Prednisone -tapering Clinically much better Home this afternoon Tobacco abuse use disorder States tried to quit multiple times but was not successful Continue Nicotine patch. Counselled to quit smoking Hypothyroidism Continue levothyroxine DM I\\-type II Well controlled Last A1c:5.4 Hold oral meds ISS, Accu checks Chronic Thrombocytopenia: Platelet count -132 05/01/16 DVT PX: SCDs CODE STATUS: Full code. DISPOSITION: Home this afternoon Total time spent on discharge = 35 minutes This includes examination of the patient, discharge planning, medication reconciliation, and communication with other providers. Discharge Instructions Date of Service May 01, 2016. Admission Reason for Admission: Respiratory Failure Discharge Discharge Diagnosis / Problem: Acute Respiratory failure,COPD ,On home Oxygen Discharge Goals Goal(s): Prevent Disease Progression Activity Recommendations Activity Limitations: resume your previous activity . Instructions / Follow-Up Instructions / Follow-Up Dr Schmidt on 05/08/16 at 1:00PM .Keep /make appointment with your Lung Doctor. Current Hospital Diet Patient's current hospital diet: Diabetes Type 2 Diet Discharge Diet Recommended Diet: Diabetes Type 2 Diet Pending Studies Studies pending at discharge: no Laboratory Results Hemoglobin A1c Test 04/27/16 16:51 Range/Units Estimated Average Glucose 108 mg/dl Hemoglobin A1c 5.4 4.5-5.6 % Medical Emergencies . Who to Call and When: Medical Emergencies: If at any time you feel your situation is an emergency, please call 911 immediately. . Non-Emergent Contact Non-Emergency issues call your: Primary Care Provider . Past History Medical & Surgical History: (1) COPD (chronic obstructive pulmonary disease) (2) Acute respiratory failure (3) Bronchitis (4) Diab Willa Wo Compl, Type Ii Or Unspec Type, Not Uncntrld . "Provider Documentation" section prepared by Shalini Madsen. VTE Core Measure Inpt VTE Proph given/why not?: SCD's (Thrombocytopenia) <Electronically signed by Shalini Madsen M.D.> Additional Copies To Derrell Schmidt M.D.(SÁNCHEZ)
[2016-06-30] MEDS ORDERED: Nicotine TD ×2 (09:19→09:55)
[2016-06-30] MEDS ORDERED: FLNIN (09:19)
[2016-06-30] MEDS ORDERED: NYSS5 PO (09:19)
[2016-06-30] MEDS ORDERED: SPRIN INH ×2 (09:19→09:55)
[2016-06-30] MEDS ORDERED: LISI20TA3 PO (09:19)
[2016-06-30] MEDS ORDERED: PRD20 PO (09:25)
== END 2016-05-01 16:00 | disposition home or self-care (01) | DRG 189 ==
LOC: ENRESERVTM → ENRESERVDT → EDBD 16:00 → C.EDB 16:01 → C.MED 19:49
PROVIDERS: ADMIT Internal Medicine; ATTEND Internal Medicine
DX: J96.21 Acute and chronic respiratory failure with hypoxia (principal); J69.0 Pneumonitis due to inhalation of food and vomit; J44.1 Chronic obstructive pulmonary disease with (acute) exacerbation; J44.0 Chronic obstructive pulmonary disease with (acute) lower respiratory infection; J96.22 Acute and chronic respiratory failure with hypercapnia; E03.9 Hypothyroidism, unspecified; E11.40 Type 2 diabetes mellitus with diabetic neuropathy, unspecified; F17.210 Nicotine dependence, cigarettes, uncomplicated; I10 Essential (primary) hypertension; D69.6 Thrombocytopenia, unspecified; G47.33 Obstructive sleep apnea (adult) (pediatric); R91.1 Solitary pulmonary nodule; Z99.81 Dependence on supplemental oxygen; Z79.899 Other long term (current) drug therapy; Z79.84 Long term (current) use of oral hypoglycemic drugs; Z79.51 Long term (current) use of inhaled steroids

== ENCOUNTER 2016-06-22 09:25 | Inpatient (IN) | payer OTHER ==
[2016-06-22] VITALS (8 sets, daily range): BP systolic 132–165; BP diastolic 68–83; PULSE 71–91; TEMP 36.5–37.3; O2SAT 91–98; Ht 172.7 cm; Wt 88.4 kg
[~2016-06-22] VITALS: Ht 172.7 cm; Wt 88.4 kg
[~2016-06-22 09:25] MED LIST changes: -FLUT1INH7 INH; +IPRA1AER2 PO; -IPRASOL4 INH; +NCDT21 TD; +PRD20 PO; +SYMIN INH
[2016-06-22] MEDS ORDERED: ALBUT/IPRATROP 3MG/0.5MG NEB 3 ML VIAL INH ONE (09:45)
[2016-06-22] MEDS ORDERED: WLLSR100 PO (10:07)
[2016-06-22] MEDS ORDERED: LPT40 PO (10:07)
[2016-06-22] MEDS ORDERED: PRED20TA PO (10:07)
[2016-06-22] MEDS ORDERED: VNTHFA/IN PO (10:07)
[2016-06-22] MEDS ORDERED: FLUT115A PO (10:07)
[2016-06-22 10:25] LABS: VEN BLD GAS O2 SATURATION 70.7 %; VEN BLOOD GAS BASE EXCESS 9.1 mmol/L
--- NOTE | 2016-06-22 10:26 | DIAGNOSTIC IMAGING REPORT ---
CHEST ONE VIEW PORTABLE CLINICAL HISTORY: EVALUATE RESPIRATORY DISTRESS. DYSPNEA COMPARISON STUDY: 04/27/2016 FINDINGS: The bones soft tissues and hemidiaphragms are normal. The cardiomediastinal silhouette is normal. The lungs are clear. The pulmonary vasculature is normal. IMPRESSION: Negative chest. Electronically signed by: Adrián Vincent M.D. 06/22/2016 10:25 AM Dictated Date/Time: 06/22/2016 10:24 AM
[2016-06-22 10:31] LABS: BASO % 0.1 %; BASO ABS # 0.01 K/uL (0-0.2); COMPLETE YES; EOS % 0.1 %; HEMATOCRIT 45.7 % (42-52); IG% 0.3 %; LYMPH % 3.7 %; LYMPH ABS # 0.53 K/uL (1.2-3.4); MEAN CELL VOLUME 100.2 fL (80-100); MEAN CORPUSCULAR HEMOGLOBIN 34.6 pg (25-34); MEAN CORPUSCULAR HGB CONC 34.6 g/dl (32-36); MEAN PLATELET VOLUME 11.6 fL (7.4-10.4); MONO % 4.4 %; NEUT % 91.4 %; PLATELET COUNT 158 K/uL (130-400); RED BLOOD COUNT 4.56 M/uL (4.7-6.1); WHITE BLOOD COUNT 14.17 K/uL (4.8-10.8)
[2016-06-22 10:58] LABS: ALT/SGPT 67 U/L (12-78); AST/SGOT 38 U/L (15-37); BLOOD UREA NITROGEN 21 mg/dl (7-18); BUN/CREATININE RATIO 20.7 (10-20); CARBON DIOXIDE 37 mmol/L (21-32); CHLORIDE 98 mmol/L (98-107); GLUCOSE 126 mg/dl (70-99); POTASSIUM 3.9 mmol/L (3.5-5.1); SODIUM 138 mmol/L (136-145)
[2016-06-22 11:07] LABS: ALB/GLOB RATIO 0.9 (0.9-2); ALKALINE PHOSPHATASE 89 U/L (45-117); CKMB/CK RATIO 6.4 (0-3.0)
--- NOTE | 2016-06-22 11:12 | EMERGENCY ROOM VISIT NOTE ---
History Report prepared by Saad: Margie Doyle Under the Supervision of: Dr. Bill Oneal M.D. First contact with patient: 09:38 Chief Complaint: RESPIRATORY PROBLEMS Stated Complaint: SHORTNESS OF BREATH Nursing Triage Summary: pt has copd wears 4 litters of oxygen at all times pt reports more sob since Saturday pt given duoneb and albuterol, 125mg solumedrol prehospital pt has difficulty speaking in complete sentences tachypnea History of Present Illness The patient is a 66 year old male who presents to the Emergency Room via EMS with complaints of worsening shortness of breath starting about 6 days ago. He has a chronic cough. He has a mild chest pain with coughing. He has worsening symptoms with exertion. He was given Albuterol, DuoNeb, and 125 mg Solu Medrol by EMS with some relief. The patient has a history of COPD. He wears 4 L of oxygen at all times. He was admitted in April for similar symptoms. He was recently placed on Combivent. He started having bilateral lower extremity edema about 3-4 days ago. Pt denies LOC, headache, fevers, chills, diaphoresis, visual changes, neck pain, nausea, vomiting, abdominal pain, back pain, melena, hematochezia, urinary symptoms, numbness, weakness, rash, or other complaints. Source of History: patient Onset: about 6 days ago Position: other (global) Quality: other (shortness of breath) Timing: worsening Modifying Factors (Worsening): exertion Modifying Factors (Relieving): other (Albuterol, DuoNeb, and 125 mg Solu Medrol with some relief) Associated Symptoms: + chest pain (with coughing), + cough (chronic) Review of Systems See HPI for pertinent positives and negatives. A total of ten systems were reviewed and were otherwise negative. Past Medical & Surgical Medical Problems: (1) Acute respiratory failure (2) Bronchitis (3) Calculus Of Kidney (4) COPD (chronic obstructive pulmonary disease) (5) Diab Willa Wo Compl, Type Ii Or Unspec Type, Not Uncntrld (6) Low blood pressure (7) Respiratory failure Family History Cancer Diabetes mellitus Kidney disease Kidney stones Lung disease Social History Smoking Status: Current Every Day Smoker Alcohol Use: heavy Housing Status: lives alone Occupation Status: retired Current/Historical Medications Scheduled Arformoterol Tartrate (Brovana 15MCG/2ML Soln), 15 MCG INH BID Atorvastatin (Atorvastatin Calcium), 40 MG PO DAILY Budesonide/Formoterol Fumarate (Symbicort 160-4.5 Mcg/Act), 2 PUFFS INH BID Bupropion HCl (Bupropion HCl Sr), 100 MG PO BID Fluticasone-Salmeterol 115/21 Mcg (Advair Hfa 115/21 Mcg), 2 PUFFS PO DIRECTED Formoterol Fumarate (Perforomist), 20 MCG INH BID Gabapentin (Neurontin), 300 MG PO QAM Glipizide (Glipizide), 2.5 MG PO DAILY Ipratropium-Albuterol (Combivent Respimat), 2 PUFFS PO Q6 Levothyroxine Sodium (Synthroid), 50 MCG PO DAILY Nicotine (Nicotine), 1 PATCH TD QAM Omeprazole (Prilosec), 20 MG PO DAILY Oxygen (Oxygen), 4 LITERS NA CONTINOUS Verapamil Sust Rel (Calan Sr Ext Rel), 120 MG PO DAILY Scheduled PRN Albuterol Hfa (Ventolin Hfa), 2 PUFFS PO QID PRN for Shortness of Breath Allergies Coded Allergies: Poultry Meal (Verified Allergy, Intermediate, TURKEY - HIVES, RASH, NAUSEA , 06/22/16) Physical Exam Vital Signs Date Time Temp Pulse Resp B/P Pulse Ox O2 Delivery O2 Flow Rate FiO2 06/22/16 10:15 93 22 140/97 97 Nebulizer 8.0 06/22/16 10:10 95 Nasal Cannula 4.0 06/22/16 10:04 84 18 94 Nasal Cannula 4.0 06/22/16 09:36 95 Nasal Cannula 4.0 06/22/16 09:35 84 06/22/16 09:29 Nasal Cannula 4.0 06/22/16 09:29 36.7 86 32 162/88 92 Nasal Cannula Physical Exam GENERAL: Awake, alert, uncomfortable appearing, in moderate distress. HENT: Normocephalic, atraumatic. Oropharynx unremarkable. EYES: Normal conjunctiva. Sclera non-icteric. NECK: Supple. No nuchal rigidity. FROM. No JVD. RESPIRATORY: Expiratory wheezes bilaterally. Tachypnea. CARDIAC: Regular rate, normal rhythm. Extremities warm and well perfused. Pulses equal. ABDOMEN: Soft, non-distended. No tenderness to palpation. No rebound or guarding. No masses. RECTAL: Deferred. MUSCULOSKELETAL: Chest examination reveals no tenderness. The back is symmetrical on inspection without obvious abnormality. There is no CVA tenderness to palpation. No joint edema. LOWER EXTREMITIES: Calves are equal size bilaterally and non-tender. 2+ lower extremity edema. No discoloration. NEURO: Normal sensorium. No sensory or motor deficits noted. SKIN: No rash or jaundice noted. Medical Decision & Procedures ER Provider Diagnostic Interpretation: X-ray results as stated below per my and radiologist interpretation: CHEST ONE VIEW PORTABLE CLINICAL HISTORY: EVALUATE RESPIRATORY DISTRESS. DYSPNEA COMPARISON STUDY: 04/27/2016 FINDINGS: The bones soft tissues and hemidiaphragms are normal. The cardiomediastinal silhouette is normal. The lungs are clear. The pulmonary vasculature is normal. IMPRESSION: Negative chest. Electronically signed by: Adrián Vincent M.D. 06/22/2016 10:25 AM Dictated Date/Time: 06/22/2016 10:24 AM Laboratory Results 06/22/16 10:10 Red Blood Count 4.56, Mean Corpuscular Volume 100.2, Mean Corpuscular Hemoglobin 34.6, Mean Corpuscular Hemoglobin Concent 34.6, Mean Platelet Volume 11.6, Neutrophils (%) (Auto) 91.4, Lymphocytes (%) (Auto) 3.7, Monocytes (%) ( Auto) 4.4, Eosinophils (%) (Auto) 0.1, Basophils (%) (Auto) 0.1, Neutrophils # ( Auto) 12.96, Lymphocytes # (Auto) 0.53, Monocytes # (Auto) 0.62, Eosinophils # ( Auto) 0.01, Basophils # (Auto) 0.01 06/22/16 10:10 Test 06/22/16 10:10 White Blood Count 14.17 K/uL (4.8-10.8) Red Blood Count 4.56 M/uL (4.7-6.1) Hemoglobin 15.8 g/dL (14.0-18.0) Hematocrit 45.7 % (42-52) Mean Corpuscular Volume 100.2 fL (80-100) Mean Corpuscular Hemoglobin 34.6 pg (25-34) Mean Corpuscular Hemoglobin Concent 34.6 g/dl (32-36) Platelet Count 158 K/uL (130-400) Mean Platelet Volume 11.6 fL (7.4-10.4) Neutrophils (%) (Auto) 91.4 % Lymphocytes (%) (Auto) 3.7 % Monocytes (%) (Auto) 4.4 % Eosinophils (%) (Auto) 0.1 % Basophils (%) (Auto) 0.1 % Neutrophils # (Auto) 12.96 K/uL (1.4-6.5) Lymphocytes # (Auto) 0.53 K/uL (1.2-3.4) Monocytes # (Auto) 0.62 K/uL (0.11-0.59) Eosinophils # (Auto) 0.01 K/uL (0-0.5) Basophils # (Auto) 0.01 K/uL (0-0.2) RDW Standard Deviation 45.2 fL (36.4-46.3) RDW Coefficient of Variation 12.4 % (11.5-14.5) Immature Granulocyte % (Auto) 0.3 % Immature Granulocyte # (Auto) 0.04 K/uL (0.00-0.02) Venous Blood pH 7.39 (7.36-7.41) Venous Blood Partial Pressure CO2 61 mmHg (38.0-50.0) Venous Blood Partial Pressure O2 38 mmHg Venous Blood HCO3 36 mmol/L Venous Blood Oxygen Saturation 70.7 % Venous Blood Base Excess 9.1 mmol/L Anion Gap 3.0 mmol/L (3-11) Est Creatinine Clear Calc Drug Dose 77.1 ml/min Estimated GFR () 91.8 Estimated GFR (Non- 79.2 BUN/Creatinine Ratio 20.7 (10-20) Calcium Level 9.0 mg/dl (8.5-10.1) Total Bilirubin 0.9 mg/dl (0.2-1) Aspartate Amino Transf (AST/SGOT) 38 U/L (15-37) Alanine Aminotransferase (ALT/SGPT) 67 U/L (12-78) Alkaline Phosphatase 89 U/L (45-117) Total Creatine Kinase 44 U/L (39-308) Creatine Kinase MB 2.8 ng/ml (0.5-3.6) Creatine Kinase MB Ratio 6.4 (0-3.0) Troponin I < 0.015 ng/ml (0-0.045) Pro-B-Type Natriuretic Peptide 391 pg/ml (0-900) Total Protein 7.2 gm/dl (6.4-8.2) Albumin 3.4 gm/dl (3.4-5.0) Globulin 3.8 gm/dl (2.5-4.0) Albumin/Globulin Ratio 0.9 (0.9-2) Laboratory results reviewed by me Medications Administered Medications (Trade) Dose Ordered Sig/Fadi Route Start Time Stop Time Status Last Admin Dose Admin Albuterol/ Ipratropium (Duoneb) 12 ml ONE ONCE INH 06/22/16 09:45 06/22/16 09:46 DC 06/22/16 10:04 12 ML ECG Indication: SOB/dyspnea Rate (beats per minute): 77 Rhythm: sinus with SA Findings: no acute ischemic change, no ectopy ED Course 0938: The patient was evaluated in room C06. A complete history and physical exam was performed. 0945: DuoNeb 12 ml INH 1025: I reevaluated the patient who is resting comfortably. 1051: I discussed the patient's case with Dr. Madsen, from [facility]. 1059: Upon reexamination, the patient was feeling better. I discussed the test results and treatment plan with him. The patient will be evaluated for further management. Medical Decision Triage Nursing notes reviewed. The patient's presentation and history were concerning for breathing difficulties. Etiologies such as pneumonia, COPD, reactive airway disease, CHF, cardiac ischemia, pulmonary embolism, pneumothorax, musculoskeletal, infections, gastrointestinal, as well as others were entertained. The patient presented to the emergency department via EMS and was in respiratory distress. He received breathing treatments and steroids prehospital. Nurse called me into the room when the patient arrived as he was having significant wheezing and work of breathing. The patient has a significant history for COPD. He states he feels like this is similar but worse. He was started on an hour-long treatment and responded very well to this. BiPAP was initially ordered but canceled as the patient did turn around. His chest x-ray revealed no evidence of pneumonia. The patient did have a slight leukocytosis. His LFTs were unremarkable. Troponin and BNP were negative. Venous blood gas did reveal mild CO2 retention. The patient was reassessed several times and was incrementally doing better. ECG was unremarkable. A consultation was made with the [facility] service. The patient was evaluated in the Emergency Room for admission and further treatment of his respiratory distress and COPD exacerbation. The chart was completed utilizing [employer] Speech voice recognition software. Grammatical errors, random word insertions, pronoun errors, and incomplete sentences are an occasional consequence of this system due to software limitations, ambient noise, and hardware issues. Any formal questions or concerns about the content, text, or information contained within the body of this dictation should be directly addressed to the physician for clarification. Consults Time Called: 1050 Consulting Physician: Dr. Madsen, from [facility] Returned Call: 1051 I discussed the patient's case with Dr. Madsen, from [facility]. Impression Primary Impression: Respiratory distress Additional Impression: COPD exacerbation Critical Care I have personally spent greater than 30 minutes of critical care time in the direct management of this patient. This includes bedside care, interpretation of diagnostic studies, and testing, discussion with consultants, patient, and other required patient management activities. This 30 minutes is in excess of all separately billable procedures. Scribe Attestation The scribe's documentation has been prepared under my direction and personally reviewed by me in its entirety. I confirm that the note above accurately reflects all work, treatment, procedures, and medical decision making performed by me. Departure Information Dispostion Being Evaluated By Hospitalist Referrals Derrell Schmidt M.D.([facility]) (PCP) Patient Instructions My [facility] Problem Qualifiers
[2016-06-22] MEDS ORDERED: ONDANSETRON INJ 2 MG/ML 2 ML VIAL IV PRN (11:45)
[2016-06-22] MEDS ORDERED: ACETAMINOPHEN 325 MG TAB PO PRN (11:45)
[2016-06-22] MEDS ORDERED: FUROSEMIDE 40 MG/4 ML VIAL IV STA (11:50)
[2016-06-22] MEDS: IPRATROPIUM BROMIDE/ALBUTEROL respimat INH INH SCH ×3 (12:00→23:15)
[2016-06-22] MEDS ORDERED: ALBUTEROL HFA 8 GM INHALER INH PRN (12:00)
--- NOTE | 2016-06-22 12:33 | HISTORY & PHYSICAL EXAMINATION ---
DATE OF ADMISSION: 06/22/2016 PRIMARY CARE PHYSICIAN: Dr. Schmidt. CHIEF COMPLAINT: Increasing shortness of breath with cough and feeling of chills, since Saturday last. HISTORY OF PRESENT COMPLAINT: He is a 66-year-old male with significant past medical history including end-stage COPD on home oxygen, major depression, tobacco use disorder, benign prostatic hypertrophy, GERD, hypothyroidism, type 2 diabetes, apparently has been complaining of shortness of breath since Saturday last. His increasing has been getting to the point that he could hardly walk a few steps before he gets very short of breath. He does have cough with yellowish phlegm that was noted on Saturday. He denies to have any fever, but he complains to have chills. The condition got worse this morning, he called 911 and was brought to the Emergency Room. He denies to have any chest pain, any palpitation. He does not have any abdominal pain, nausea or vomiting. He denies to have any fever as mentioned earlier, no problem with urine and/or bowel habits, but he does have swelling of the legs which has been getting worse. He denies to any numbness or tingling in the extremities and he does not have any weakness involving any side of the body. In the ER, he was noted to have very short of breath. X-ray did not show any pneumonia, but he was given nebulized bronchodilator, intravenous Solu-Medrol ,antibiotic and will be admitted to telemetry floor. PAST MEDICAL HISTORY: Significant for severe COPD on home oxygen 3.5 liters all the time, major depression, tobacco use disorder with ongoing tobacco use, GERD, benign prostatic hypertrophy, type 2 diabetes and hypothyroidism. PAST SURGICAL HISTORY: Significant for right-sided kidney stone removal and bronchoscopy, years ago. FAMILY HISTORY: Brother has diabetes. Mother had diabetes. SOCIAL HISTORY: He lives alone. He smokes about one pack per day, drinks occasionally and he has been reasonably ambulant. REVIEW OF SYSTEMS: Other systemic review unremarkable except those mentioned in history of present illness. ALLERGIES: POULTRY MEDICATIONS: As an outpatient, he has been on albuterol 2 puffs q.i.d. as needed, Brovana 15 mcg as directed, atorvastatin 40 mg daily, Symbicort 2 puffs b.i.d., bupropion 100 mg b.i.d., Perforomist 20 mcg b.i.d., Neurontin 300 mg in the morning, glipizide 2.5 mg daily, Combivent Respimat 2 puffs q. 6 hourly, Synthroid 50 mcg daily, supposed to take nicotine patch, verapamil SR 120 mg daily, Advair 115/21 two puffs twice daily, omeprazole 20 mg daily, oxygen gas 3.5-4 liters continuous. PHYSICAL EXAMINATION: GENERAL: On examination in the Emergency Room, still having moderate shortness of breath. VITAL SIGNS: Temperature 36.7, pulse is 93, blood pressure 140/97, saturation 97% on 4 liters nasal cannula. HEENT: Unremarkable. NECK: Supple. No JVD, no bruit. CHEST: Decreased breath sounds with wheezing all over. Minimal crackles at the bases. HEART: S1, S2 regular. ABDOMEN: Distended, soft, benign, nontender, no organomegaly. Bowel sounds present. EXTREMITIES: 1+ edema bilaterally. MUSCULOSKELETAL SYSTEM: No acute arthritis involving any joint. CENTRAL NERVOUS SYSTEM: Alert, awake, oriented x3. LABORATORY DATA: Noted today white count was 14.14, H\T\H 15.8/45.7, platelets was 158. Venous blood gas - pH 7.39, pCO2 61 and pO2 38. Chemistry: Sodium 138, potassium 3.9, chloride 98, carbon dioxide 37, BUN 21, creatinine 1.0, random glucose 126. LFTs unremarkable. Troponin less than 0.04. IMAGING DATA: Chest x-ray reported as negative chest. EKG was in sinus rhythm, partial right bundle block, 77 per minute and nonspecific ST-T wave changes. IMPRESSION AND PLAN: 1. Chronic obstructive pulmonary disease exacerbation, most likely secondary to bronchitis of viral etiology. No definite pneumonia. He will be admitted to telemetry unit. He was started with intravenous Solu-Medrol, will continue with that and nebulized bronchodilator and also will give oral Levaquin, as possible infection. Continue his oxygen. 2. Bilateral leg swelling. He may have a component of right heart failure. We will give a small dose of Lasix while in the hospital. Will do an echocardiogram if it not done in the last year or so, to document ventricular function. 3. Major depression. No acute condition at this time. Continue current medications. 4. Diabetes type 2 on oral medications. Will continue with that and put him on sliding scale coverage and check hemoglobin A1c. 5. Gastroesophageal reflux disease. Continue with proton pump inhibitor. 6. Tobacco use disorder. Would give nicotine patch and tobacco cessation program. 7. Deep vein thrombosis prophylaxis with Lovenox. 8. CODE STATUS, he will be a full code. In my clinical judgment, the beneficiary meets criteria as per CMS for two midnights in the hospital. ANNEMARIE
[2016-06-22] MEDS ORDERED: METHYLPREDNISOLONE IV 60 MG in SYRINGE 0 ML IV ONE (14:00)
[2016-06-22] MEDS ORDERED: LEVOFLOXACIN 750 MG TAB PO ONE (14:00)
[2016-06-22] MEDS ORDERED: FUROSEMIDE INJ 40 MG in SYRINGE 0 ML IV ONE (14:00)
[2016-06-22] MEDS: LEVALBUTEROL 1.25MG/0.5ML NEB INH SCH ×3 (14:21→20:40)
[2016-06-22 15:15] LABS: URINE APPEARANCE CLEAR (CLEAR); URINE COLOR ORANGE; URINE NITRITE NEG (NEG); URINE PH 5.5 (4.5-7.5); URINE SPECIFIC GRAVITY 1.028 (1.000-1.030); UROBILINOGEN NEG (NEG)
[2016-06-22 15:24] LABS: MANUAL MICROSCOPIC REQUIRED? NO; REVIEW REQ? NO; URINE BILIRUBIN NEG (NEG)
[2016-06-22] MEDS ORDERED: PNEUMOCOCCAL ADMINISTRATION CHARGE ONE (16:45)
[2016-06-22] MEDS ORDERED: PNEUMOCOCCAL POLYSACCHARIDES 25 MCG/0.5 ML VIAL/SYR IM. ONE (16:45)
[2016-06-22] MEDS: ENOXAPARIN 40 MG/0.4 ML SYR SC SCH (17:15)
[2016-06-22] MEDS: ARFORMOTEROL TART 15MCG/2ML VIAL INH SCH (20:00)
[2016-06-22] MEDS: FORMOTEROL FUMA NEBULIZER SOLN 20 MCG/2 ML VIAL INH SCH (20:00)
[2016-06-22] MEDS: BuPROPion SR 100 MG TABCR PO SCH (20:51)
[2016-06-22] MEDS: METHYLPREDNISOLONE IV 60 MG in SYRINGE 0 ML IV SCH (20:51)
[2016-06-22] MEDS: BUDESONIDE/FORMOTEROL FUMARATE 160/4.5 60 PUFFS/INHALER INH SCH (20:51)
[2016-06-23] VITALS (13 sets, daily range): BP systolic 137–161; BP diastolic 63–80; PULSE 70–84; TEMP 36.5–37.1; O2SAT 95–98
[2016-06-23] MEDS: LEVALBUTEROL 1.25MG/0.5ML NEB INH SCH ×4 (01:59→19:44)
[2016-06-23] MEDS: LEVOTHYROXINE 50 MCG TAB PO SCH (05:43)
[2016-06-23] MEDS: METHYLPREDNISOLONE IV 60 MG in SYRINGE 0 ML IV SCH ×3 (05:44→21:28)
[2016-06-23] MEDS: IPRATROPIUM BROMIDE/ALBUTEROL respimat INH INH SCH ×4 (05:44→23:36)
[2016-06-23] MEDS: ARFORMOTEROL TART 15MCG/2ML VIAL INH SCH ×2 (07:06→19:44)
[2016-06-23] MEDS: FORMOTEROL FUMA NEBULIZER SOLN 20 MCG/2 ML VIAL INH SCH ×2 (07:06→19:44)
[2016-06-23 07:41] LABS: HEMATOCRIT 42.5 % (42-52); MEAN CELL VOLUME 99.8 fL (80-100); MEAN CORPUSCULAR HEMOGLOBIN 33.8 pg (25-34); MEAN CORPUSCULAR HGB CONC 33.9 g/dl (32-36); PLATELET COUNT 144 K/uL (130-400); RED BLOOD COUNT 4.26 M/uL (4.7-6.1); WHITE BLOOD COUNT 13.77 K/uL (4.8-10.8)
[2016-06-23] MEDS: BUDESONIDE/FORMOTEROL FUMARATE 160/4.5 60 PUFFS/INHALER INH SCH ×2 (07:55→20:30)
[2016-06-23] MEDS: NICOTINE 21 MG/24 HR TDSY TD SCH (07:56)
[2016-06-23] MEDS: ENOXAPARIN 40 MG/0.4 ML SYR SC SCH (07:57)
[2016-06-23] MEDS: VERAPAMIL HCL 120 MG TABCR PO SCH (07:59)
[2016-06-23] MEDS: ATORVASTATIN 40 MG TAB PO SCH (08:00)
[2016-06-23] MEDS: PANTOprazole SOD 40 MG TAB PO SCH (08:00)
[2016-06-23] MEDS: BuPROPion SR 100 MG TABCR PO SCH ×2 (08:00→20:30)
[2016-06-23] MEDS: GABAPENTIN 300 MG CAP PO SCH (08:00)
[2016-06-23 08:12] LABS: BUN/CREATININE RATIO 22.7 (10-20); CREATININE 1.2 mg/dl (0.60-1.40); MAGNESIUM 2.3 mg/dl (1.8-2.4); PHOSPHORUS 3.3 mg/dl (2.5-4.9); POTASSIUM 4.2 mmol/L (3.5-5.1)
[2016-06-23 08:27] LABS: CALCIUM 9.1 mg/dl (8.5-10.1)
--- NOTE | 2016-06-23 10:51 | Progress Note ---
Subjective Date of Service: June 23, 2016. Subjective Pt evaluation today including: conversation w/ patient, physical exam, lab review, review of studies, review of inpatient medication list Saw/examined the patient in room 275 +respiratory distress, +SOB states he has been using 4L of O2 at home continuously Today he feels much better than yesterday Denies chest pain, fevers/chills, nausea/vomiting Problem List Medical Problems: (1) Acute bronchitis Status: Acute (2) COPD exacerbation Status: Acute (3) COPD exacerbation Status: Acute (4) Respiratory distress Status: Acute (5) Shortness of breath Status: Acute Review of Systems Constitutional: No chills, No fever, No weakness Respiratory: + cough, + dyspnea at rest, + dyspnea on exertion, + shortness of breath, + sputum, + wheezing, No hemoptysis Cardiac: No chest pain, No edema, No palpitations Abdomen: No diarrhea, No nausea, No vomiting Medications Current Inpatient Medications Medications (Trade) Dose Ordered Sig/Fadi Route Start Time Stop Time Status Last Admin Dose Admin Enoxaparin Sodium (Lovenox Inj) 40 mg QAM SC 06/22/16 14:00 07/22/16 13:59 06/23/16 07:57 40 MG Acetaminophen (Tylenol Tab) 650 mg Q4H PRN PO 06/22/16 11:45 07/22/16 11:44 Ondansetron HCl (Zofran Inj) 4 mg Q6H PRN IV 06/22/16 11:45 07/22/16 11:44 Arformoterol Tartrate (Brovana 15MCG/ 2ML Neb Soln) 15 mcg BIDR INH 06/22/16 20:00 07/22/16 19:59 06/23/16 07:06 15 MCG Atorvastatin Calcium (Lipitor Tab) 40 mg DAILY PO 06/23/16 09:00 07/23/16 08:59 06/23/16 08:00 40 MG Budesonide/ Formoterol Fumarate (Symbicort 160/ 4.5 Inh) 2 puffs BID INH 06/22/16 21:00 07/22/16 20:59 06/23/16 07:55 2 PUFFS Bupropion HCl (Wellbutrin-Sr Tab) 100 mg BID PO 06/22/16 21:00 6/11/17 20:59 06/23/16 08:00 100 MG Formoterol Fumarate (Perforomist 20MCG/2ML Neb Soln) 20 mcg BIDR INH 06/22/16 20:00 07/22/16 19:59 06/23/16 07:06 20 MCG Gabapentin (Neurontin Cap) 300 mg QAM PO 06/23/16 09:00 07/23/16 08:59 06/23/16 08:00 300 MG Glipizide (Glucotrol Tab) 2.5 mg DAILY PO 06/23/16 09:00 07/23/16 08:59 06/23/16 07:59 2.5 MG Albuterol/ Ipratropium (Combivent Respimat Inh) 1 puffs Q6 INH 06/22/16 12:00 07/22/16 11:59 06/22/16 23:15 1 PUFFS Levothyroxine Sodium (Synthroid Tab) 50 mcg DAILYBB PO 06/23/16 06:30 07/23/16 06:29 06/23/16 05:43 50 MCG Nicotine (Nicoderm Cq 21MG Patch) 1 patch QAM TD 06/23/16 09:00 07/23/16 08:59 06/23/16 07:56 1 PATCH Verapamil HCl (Calan-Sr Tab) 120 mg DAILY PO 06/23/16 09:00 07/23/16 08:59 06/23/16 07:59 120 MG Miscellaneous Information (Order Awaiting Action) 1 ea QS N/A 06/22/16 16:00 07/22/16 15:59 Pantoprazole Sodium (Protonix Tab) 40 mg DAILY PO 06/23/16 09:00 07/23/16 08:59 06/23/16 08:00 40 MG Miscellaneous (Remove Nicoderm Patch) 1 ea HS N/A 06/22/16 21:00 07/22/16 20:59 Levalbuterol 1.25 mg 1.25 mg Q6R INH 06/22/16 15:00 07/22/16 14:59 06/23/16 01:59 1.25 MG Methylprednisolone Sodium Succinate/ Syringe (Solu-Medrol IV/ Syringe) 0.96 ml @ 1.5 mls/min Q8H IV 06/22/16 22:00 07/22/16 21:59 06/23/16 05:44 1.5 MLS/MIN Levofloxacin (Levaquin Tab) 750 mg DAILY@11 PO 06/23/16 11:00 06/29/16 10:59 Objective Vital Signs Date Time Temp Pulse Resp B/P Pulse Ox O2 Delivery O2 Flow Rate FiO2 06/23/16 07:33 36.5 78 18 138/76 98 Nasal Cannula 4.0 06/23/16 07:06 82 20 98 Nasal Cannula 4.0 06/23/16 05:05 36.5 76 22 139/78 98 Nasal Cannula 4.0 06/23/16 04:04 Nasal Cannula 4.0 06/23/16 01:59 79 18 95 Nasal Cannula 4.0 06/23/16 00:32 Nasal Cannula 4.0 06/22/16 23:28 36.5 71 22 165/71 97 Nasal Cannula 4.0 06/22/16 20:34 91 18 98 Nasal Cannula 4.0 06/22/16 20:00 Nasal Cannula 4.0 06/22/16 19:20 36.5 84 20 149/83 97 Nasal Cannula 4.0 06/22/16 16:00 95 Nasal Cannula 4.0 06/22/16 15:37 95 Nasal Cannula 4.0 06/22/16 15:05 37.3 77 20 132/68 91 4.0 06/22/16 14:21 78 18 96 Nasal Cannula 4.0 06/22/16 12:12 92 26 132/77 94 Nasal Cannula 4.0 Physical Exam General Appearance: + mild distress (respiratory distress) Respiratory/Chest: no respiratory distress, no accessory muscle use, + respiratory distress, + decreased breath sounds, + wheezing (diffuse end expiratory wheezing) Cardiovascular: regular rate, rhythm, no edema, no murmur Abdomen: normal bowel sounds, non tender, soft, + hernia (reducible, non- tender ventral hernia) Extremities: normal inspection, no pedal edema Neurologic/Psychiatric: no motor/sensory deficits, alert, normal mood/affect Laboratory Results Last 24 Hours Test 06/22/16 15:00 06/23/16 07:14 Urine Color ORANGE Urine Appearance CLEAR Urine pH 5.5 Urine Specific [place] 1.028 Urine Protein 1+ Urine Glucose (UA) TRACE Urine Ketones TRACE Urine Occult Blood NEG Urine Nitrite NEG Urine Bilirubin NEG Urine Urobilinogen NEG Urine Leukocyte Esterase NEG Urine WBC (Auto) 1-5 /hpf Urine RBC (Auto) 0-4 /hpf Urine Hyaline Casts (Auto) 5-10 /lpf Urine Epithelial Cells (Auto) 10-20 /lpf Urine Bacteria (Auto) NEG White Blood Count 13.77 K/uL Red Blood Count 4.26 M/uL Hemoglobin 14.4 g/dL Hematocrit 42.5 % Mean Corpuscular Volume 99.8 fL Mean Corpuscular Hemoglobin 33.8 pg Mean Corpuscular Hemoglobin Concent 33.9 g/dl RDW Standard Deviation 44.0 fL RDW Coefficient of Variation 12.2 % Platelet Count 144 K/uL Mean Platelet Volume 11.0 fL Sodium Level 137 mmol/L Potassium Level 4.2 mmol/L Chloride Level 94 mmol/L Carbon Dioxide Level 40 mmol/L Anion Gap 3.0 mmol/L Blood Urea Nitrogen 27 mg/dl Creatinine 1.20 mg/dl Est Creatinine Clear Calc Drug Dose 65.8 ml/min Estimated GFR () 73.6 Estimated GFR (Non- 63.5 BUN/Creatinine Ratio 22.7 Random Glucose 172 mg/dl Calcium Level 9.1 mg/dl Phosphorus Level 3.3 mg/dl Magnesium Level 2.3 mg/dl Assessment and Plan This is a 66 year old male with a PMH of severe COPD and chronic respiratory failure requiring continuous O2 use at home, tobacco use disorder, depression, ectopic atrial tachycardia, DM2, hypothyroidism, GERD presents with worsening shortness of breath Acute COPD exacerbation Acute on Chronic Respiratory Failure patient presents with significant COPD (he has very severe COPD as per PFTs) uses 3.5L of O2 at home, he bumped it up to 4L continuously still felt significantly short of breath He was given IV solu-medrol, I agree with 60mg q8 for now continue IV Levaquin nebulizers as needed continue inhalers including Brovana, Symbicort, Formoterol, Combivent possible addition of Spiriva as outpatient Tobacco Use Disorder still smokes about 1/2 PPD currently has a nicotine patch on counseled on tobacco cessation Ectopic Atrial Tachycardia monitor for tachycardia with solu-medrol use continue Verapamil monitor in tele for another day or two, as we taper solu-medrol, we can d/c tele DM2 Ha1c in May 2016 = 5.6% well controlled continue low dose glipizide for now Hypothyroid continue Synthroid DVT ppx Lovenox FULL CODE
[2016-06-23] MEDS ORDERED: PERFLUTREN LIPID MICROSPHERE (DEFINITY) IV ONE (11:35)
[2016-06-23] MEDS: LEVOFLOXACIN 750 MG TAB PO SCH ×2 (11:47→12:26)
--- NOTE | 2016-06-23 13:14 | ECHOCARDIOGRAM REPORT ---
*NOTICE TO RECEIVING LIBERTARIAN AGENCY This information is strictly Confidential and protected under [place] law. [place] law prohibits you from making any further disclosure of this information unless further disclosure is expressly permitted by the written consent of the person to whom it pertains or is authorized by law. A general authorization for the release of medical or other information is not sufficient for this purpose. Hospital accepts no responsibility if the information is made available to any other person, INCLUDING THE PATIENT. Interpretation Summary * Name: BRYNN QUIROGA Study Date: 06/23/2016 10:57 AM BP: 132/77 mmHg * Patient Location: [facility]\S\N275\S\2 HR: 92 * : 1950 (M/d/yyyy) Gender: Male Height: 70 in * Age: 66 yrs Ethnicity: [place] Weight: 193 lb * Ordering Physician: Shalini Madsen * Performed By: Ana Almanzar * * Reason For Study: CHF * BSA: 2.1 m2 * The study was technically limited. * Grossly normal valvular structure and function. * -- Conclusions -- * The left ventricular cavity is small. * There is borderline concentric left ventricular hypertrophy. * Left ventricular systolic function is normal. * Ejection Fraction = >70 %. * Grossly normal valvular structure and function. * The study was technically limited. Procedure Details * A complete two-dimensional transthoracic echocardiogram was performed (2D, M-mode, Doppler and color flow Doppler). * The study was technically difficult. * Limited views were obtained. * There were technical limitations due to patient'sPoor acoustic windows secondary to severe lung disease. * A contrast injection of Definity was performed to improve assessment of LV function. * Contrast was injected into an intravenous site in the left arm. * One vial of Definity ultrasound contrast was diluted in normal saline to a total volume of 10 ml. A total of '2' ml of solution was administered during imaging. * Lot # [id number] of Definity utilized for procedure. * Expiration date 05/29. * The attending nurse who injected the contrast agent was TONIE BRAR RN. Left Ventricle * The left ventricular cavity is small. * There is borderline concentric left ventricular hypertrophy. * Ejection Fraction = >70 %. * Left ventricular systolic function is normal. * The left ventricular wall motion is normal. Right Ventricle * The right ventricle is normal size. * The right ventricular systolic function is normal. Atria * The left atrial size is normal. * Right atrial size is normal. * The interatrial septum is intact with no evidence for an atrial septal defect. Mitral Valve * The mitral valve anatomy is normal. * Significant mitral regurgitation is absent. Tricuspid Valve * The tricuspid valve anatomy is normal. * Significant tricuspid regurgitation is absent. Aortic Valve * The aortic valve is not well visualized. * No hemodynamically significant valvular aortic stenosis. * There is no significant aortic regurgitation. Pulmonic Valve * The pulmonic valve is not well visualized. * There is no significant pulmonary regurgitation. Pericardium/Pleural * There is no pericardial effusion. MMode 2D Measurements and Calculations IVSd 1.1 cm IVSs 1.8 cm LVIDd 4.7 cm LVIDs 2.8 cm LVPWd 1.2 cm LVPWs 2.1 cm IVS/LVPW 0.92 FS 40.8 % EDV(Teich) 103.1 ml ESV(Teich) 29.3 ml EF(Teich) 71.6 % EDV(cubed) 104.8 ml ESV(cubed) 21.7 ml EF(cubed) 79.3 % % IVS thick 58.7 % % LVPW thick 72.8 % LV mass(C)d 205.5 grams LV mass(C)dI 100.0 grams/m\S\2 LV mass(C)s 230.1 grams LV mass(C)sI 111.9 grams/m\S\2 SV(Teich) 73.8 ml SI(Teich) 35.9 ml/m\S\2 SV(cubed) 83.1 ml SI(cubed) 40.4 ml/m\S\2 LVOT diam 1.8 cm LVOT area 2.4 cm\S\2 LVAd ap4 33.7 cm\S\2 LVLd ap4 8.3 cm EDV(MOD-sp4) 112.4 ml EDV(sp4-el) 115.7 ml LVAs ap4 17.0 cm\S\2 LVLs ap4 7.3 cm ESV(MOD-sp4) 31.7 ml ESV(sp4-el) 33.3 ml EF(MOD-sp4) 71.8 % EF(sp4-el) 71.2 % LVAd ap2 36.6 cm\S\2 LVLd ap2 8.8 cm EDV(MOD-sp2) 123.0 ml EDV(sp2-el) 129.5 ml LVAs ap2 17.8 cm\S\2 LVLs ap2 7.5 cm ESV(MOD-sp2) 35.8 ml ESV(sp2-el) 36.1 ml EF(MOD-sp2) 70.9 % EF(sp2-el) 72.2 % LVLd %diff 5.2 % EDV(MOD-bp) 120.8 ml LVLs %diff 1.6 % ESV(MOD-bp) 33.1 ml EF(MOD-bp) 72.6 % SV(MOD-sp4) 80.7 ml SI(MOD-sp4) 39.3 ml/m\S\2 SV(MOD-sp2) 87.3 ml SI(MOD-sp2) 42.4 ml/m\S\2 SV(MOD-bp) 87.7 ml SI(MOD-bp) 42.7 ml/m\S\2 SV(sp4-el) 82.4 ml SI(sp4-el) 40.1 ml/m\S\2 SV(sp2-el) 93.5 ml SI(sp2-el) 45.5 ml/m\S\2 Doppler Measurements and Calculations MV E max deborah 108.2 cm/sec MV A max deborah 63.7 cm/sec MV E/A 1.7 MV dec time 0.21 sec Ao V2 max 127.2 cm/sec Ao max PG 6.5 mmHg Ao max PG (full) 3.3 mmHg JANICE(V,A) 1.7 cm\S\2 JANICE(V,D) 1.7 cm\S\2 LV V1 max PG 3.2 mmHg LV V1 max 88.9 cm/sec PA V2 max 100.3 cm/sec PA max PG 4.0 mmHg
[2016-06-24] VITALS (14 sets, daily range): BP systolic 152–177; BP diastolic 69–89; PULSE 67–81; TEMP 36.3–36.7; O2SAT 96–99
[2016-06-24] MEDS: LEVALBUTEROL 1.25MG/0.5ML NEB INH SCH ×5 (01:50→23:03)
[2016-06-24] MEDS: METHYLPREDNISOLONE IV 60 MG in SYRINGE 0 ML IV SCH (05:49)
[2016-06-24] MEDS: LEVOTHYROXINE 50 MCG TAB PO SCH (05:49)
[2016-06-24] MEDS: IPRATROPIUM BROMIDE/ALBUTEROL respimat INH INH SCH (05:50)
[2016-06-24] MEDS: ARFORMOTEROL TART 15MCG/2ML VIAL INH SCH ×2 (06:49→19:00)
[2016-06-24] MEDS: FORMOTEROL FUMA NEBULIZER SOLN 20 MCG/2 ML VIAL INH SCH ×2 (06:49→19:00)
[2016-06-24 07:30] LABS: HEMATOCRIT 42.2 % (42-52); MEAN CELL VOLUME 100.7 fL (80-100); MEAN CORPUSCULAR HEMOGLOBIN 33.4 pg (25-34); MEAN CORPUSCULAR HGB CONC 33.2 g/dl (32-36); MEAN PLATELET VOLUME 11.2 fL (7.4-10.4); PLATELET COUNT 161 K/uL (130-400); RED BLOOD COUNT 4.19 M/uL (4.7-6.1); WHITE BLOOD COUNT 18.05 K/uL (4.8-10.8)
[2016-06-24 07:57] LABS: BUN/CREATININE RATIO 31.5 (10-20); CALCIUM 8.8 mg/dl (8.5-10.1)
[2016-06-24] MEDS: ENOXAPARIN 40 MG/0.4 ML SYR SC SCH (08:46)
[2016-06-24] MEDS: BUDESONIDE/FORMOTEROL FUMARATE 160/4.5 60 PUFFS/INHALER INH SCH ×2 (08:46→20:52)
[2016-06-24] MEDS: NICOTINE 21 MG/24 HR TDSY TD SCH (08:47)
[2016-06-24] MEDS: PANTOprazole SOD 40 MG TAB PO SCH (08:47)
[2016-06-24] MEDS: GABAPENTIN 300 MG CAP PO SCH (08:48)
[2016-06-24] MEDS: VERAPAMIL HCL 120 MG TABCR PO SCH (08:48)
[2016-06-24] MEDS: BuPROPion SR 100 MG TABCR PO SCH ×2 (08:48→20:54)
[2016-06-24] MEDS: ATORVASTATIN 40 MG TAB PO SCH (08:48)
--- NOTE | 2016-06-24 08:54 | Progress Note ---
Subjective Date of Service: June 24, 2016. Subjective Pt evaluation today including: conversation w/ patient, physical exam, lab review, review of studies, review of inpatient medication list Saw/examined the patient in room 275 Still has dyspnea at rest, wheezing denies chest pain/fevers in no acute distress Problem List Medical Problems: (1) Acute bronchitis Status: Acute (2) COPD exacerbation Status: Acute (3) COPD exacerbation Status: Acute (4) Respiratory distress Status: Acute (5) Shortness of breath Status: Acute Review of Systems Constitutional: No chills, No fever Respiratory: + dyspnea at rest, + dyspnea on exertion, + shortness of breath, + wheezing, No cough, No hemoptysis, No sputum Cardiac: No chest pain, No edema, No palpitations Medications Current Inpatient Medications Medications (Trade) Dose Ordered Sig/Fadi Route Start Time Stop Time Status Last Admin Dose Admin Enoxaparin Sodium (Lovenox Inj) 40 mg QAM SC 06/22/16 14:00 07/22/16 13:59 06/23/16 07:57 40 MG Acetaminophen (Tylenol Tab) 650 mg Q4H PRN PO 06/22/16 11:45 07/22/16 11:44 Ondansetron HCl (Zofran Inj) 4 mg Q6H PRN IV 06/22/16 11:45 07/22/16 11:44 Arformoterol Tartrate (Brovana 15MCG/ 2ML Neb Soln) 15 mcg BIDR INH 06/22/16 20:00 07/22/16 19:59 06/24/16 06:49 15 MCG Atorvastatin Calcium (Lipitor Tab) 40 mg DAILY PO 06/23/16 09:00 07/23/16 08:59 06/23/16 08:00 40 MG Budesonide/ Formoterol Fumarate (Symbicort 160/ 4.5 Inh) 2 puffs BID INH 06/22/16 21:00 07/22/16 20:59 06/23/16 20:30 2 PUFFS Bupropion HCl (Wellbutrin-Sr Tab) 100 mg BID PO 06/22/16 21:00 07/22/16 20:59 06/23/16 20:30 100 MG Formoterol Fumarate (Perforomist 20MCG/2ML Neb Soln) 20 mcg BIDR INH 06/22/16 20:00 07/22/16 19:59 06/24/16 06:49 20 MCG Gabapentin (Neurontin Cap) 300 mg QAM PO 06/23/16 09:00 07/23/16 08:59 06/23/16 08:00 300 MG Glipizide (Glucotrol Tab) 2.5 mg DAILY PO 06/23/16 09:00 07/23/16 08:59 06/23/16 07:59 2.5 MG Albuterol/ Ipratropium (Combivent Respimat Inh) 1 puffs Q6 INH 06/22/16 12:00 07/22/16 11:59 06/22/16 23:15 1 PUFFS Levothyroxine Sodium (Synthroid Tab) 50 mcg DAILYBB PO 06/23/16 06:30 07/23/16 06:29 06/24/16 05:49 50 MCG Nicotine (Nicoderm Cq 21MG Patch) 1 patch QAM TD 06/23/16 09:00 07/23/16 08:59 06/23/16 07:56 1 PATCH Verapamil HCl (Calan-Sr Tab) 120 mg DAILY PO 06/23/16 09:00 07/23/16 08:59 06/23/16 07:59 120 MG Miscellaneous Information (Order Awaiting Action) 1 ea QS N/A 06/22/16 16:00 07/22/16 15:59 Pantoprazole Sodium (Protonix Tab) 40 mg DAILY PO 06/23/16 09:00 07/23/16 08:59 06/23/16 08:00 40 MG Miscellaneous (Remove Nicoderm Patch) 1 ea HS N/A 06/22/16 21:00 07/22/16 20:59 06/23/16 20:30 1 EA Levalbuterol (Xopenex 1.25MG/ 0.5ML Neb) 1.25 mg Q6R INH 06/22/16 15:00 07/22/16 14:59 06/24/16 01:50 1.25 MG Levofloxacin 750 mg 750 mg DAILY@11 PO 06/23/16 11:00 06/29/16 10:59 06/23/16 12:26 750 MG Methylprednisolone Sodium Succinate/ Syringe (Solu-Medrol IV/ Syringe) 0.64 ml @ 1.5 mls/min Q8H IV 06/24/16 14:00 07/24/16 13:59 Objective Vital Signs Date Time Temp Pulse Resp B/P Pulse Ox O2 Delivery O2 Flow Rate FiO2 06/24/16 07:31 36.5 72 18 164/89 97 4.0 06/24/16 06:49 71 18 99 Nasal Cannula 4.0 06/24/16 04:10 Nasal Cannula 4.0 06/24/16 02:57 36.6 76 22 167/83 98 Nasal Cannula 4.0 06/24/16 01:50 80 16 96 Nasal Cannula 4.0 06/24/16 00:28 Nasal Cannula 4.0 06/23/16 23:33 36.5 75 22 154/79 97 Nasal Cannula 4.0 06/23/16 20:02 Nasal Cannula 4.0 06/23/16 19:44 84 20 98 Nasal Cannula 4.0 06/23/16 19:14 36.6 70 22 161/80 98 Nasal Cannula 4.0 06/23/16 16:00 95 Nasal Cannula 4.0 06/23/16 15:01 37.1 80 18 137/74 95 06/23/16 14:20 77 20 98 Nasal Cannula 4.0 06/23/16 12:00 95 Nasal Cannula 4.0 06/23/16 11:30 36.5 74 18 153/63 97 Nasal Cannula 4.0 Physical Exam General Appearance: no apparent distress Respiratory/Chest: no respiratory distress, no accessory muscle use, + decreased breath sounds, + wheezing (diffuse end expiratory wheezing) Cardiovascular: regular rate, rhythm, no edema, no murmur Extremities: normal inspection, no pedal edema Skin: normal color Laboratory Results Last 24 Hours Test 06/24/16 07:02 White Blood Count 18.05 K/uL Red Blood Count 4.19 M/uL Hemoglobin 14.0 g/dL Hematocrit 42.2 % Mean Corpuscular Volume 100.7 fL Mean Corpuscular Hemoglobin 33.4 pg Mean Corpuscular Hemoglobin Concent 33.2 g/dl RDW Standard Deviation 44.4 fL RDW Coefficient of Variation 12.1 % Platelet Count 161 K/uL Mean Platelet Volume 11.2 fL Sodium Level 138 mmol/L Potassium Level 4.0 mmol/L Chloride Level 97 mmol/L Carbon Dioxide Level 39 mmol/L Anion Gap 2.0 mmol/L Blood Urea Nitrogen 32 mg/dl Creatinine 1.00 mg/dl Est Creatinine Clear Calc Drug Dose 79.1 ml/min Estimated GFR () 91.8 Estimated GFR (Non- 79.2 BUN/Creatinine Ratio 31.5 Random Glucose 150 mg/dl Calcium Level 8.8 mg/dl Assessment and Plan This is a 66 year old male with a PMH of severe COPD and chronic respiratory failure requiring continuous O2 use at home, tobacco use disorder, depression, ectopic atrial tachycardia, DM2, hypothyroidism, GERD presents with worsening shortness of breath Acute COPD exacerbation Acute on Chronic Respiratory Failure 06/24 severe COPD at this point, we can continue Solu-medrol; I'll taper it to 40mg q8 for now continue IV Levaquin breathing treatments help, can continue nebulizers hold Combivent continue Brovana, Symbicort, Formoterol 06/23 patient presents with significant COPD (he has very severe COPD as per PFTs) uses 3.5L of O2 at home, he bumped it up to 4L continuously still felt significantly short of breath He was given IV solu-medrol, I agree with 60mg q8 for now continue IV Levaquin nebulizers as needed continue inhalers including Brovana, Symbicort, Formoterol, Combivent possible addition of Spiriva as outpatient Tobacco Use Disorder still smokes about 1/2 PPD currently has a nicotine patch on counseled on tobacco cessation Ectopic Atrial Tachycardia monitor for tachycardia with solu-medrol use continue Verapamil monitor in tele for another day or two, as we taper solu-medrol, we can d/c tele DM2 Ha1c in May 2016 = 5.6% well controlled continue low dose glipizide for now Hypothyroid continue Synthroid DVT ppx Lovenox FULL CODE
[2016-06-24] MEDS ORDERED: NURSING VERBAL MED ORDER ONE ×2 (10:00→10:45)
[2016-06-24] MEDS: LEVOFLOXACIN 750 MG TAB PO SCH (10:57)
[2016-06-24] MEDS: METHYLPREDNISOLONE IV 40 MG in SYRINGE 0 ML IV SCH ×2 (13:18→20:55)
[2016-06-24] MEDS ORDERED: LISINOPRIL 5 MG TAB PO ONE (13:45)
[2016-06-25] VITALS (7 sets, daily range): BP systolic 137–175; BP diastolic 74–93; PULSE 70–99; TEMP 36.3–36.7; O2SAT 96–100
[2016-06-25] MEDS: METHYLPREDNISOLONE IV 40 MG in SYRINGE 0 ML IV SCH ×3 (06:12→21:24)
[2016-06-25] MEDS: LEVOTHYROXINE 50 MCG TAB PO SCH (06:13)
[2016-06-25] MEDS: ARFORMOTEROL TART 15MCG/2ML VIAL INH SCH ×2 (07:00→19:59)
[2016-06-25] MEDS: LEVALBUTEROL 1.25MG/0.5ML NEB INH SCH ×4 (07:23→23:27)
[2016-06-25] MEDS: FORMOTEROL FUMA NEBULIZER SOLN 20 MCG/2 ML VIAL INH SCH ×2 (07:23→20:00)
[2016-06-25 07:28] LABS: HEMATOCRIT 44.9 % (42-52); MEAN CELL VOLUME 101.8 fL (80-100); MEAN CORPUSCULAR HGB CONC 33.4 g/dl (32-36); MEAN PLATELET VOLUME 10.9 fL (7.4-10.4); PLATELET COUNT 149 K/uL (130-400); RED BLOOD COUNT 4.41 M/uL (4.7-6.1); WHITE BLOOD COUNT 17.84 K/uL (4.8-10.8)
[2016-06-25] MEDS: BUDESONIDE/FORMOTEROL FUMARATE 160/4.5 60 PUFFS/INHALER INH SCH ×2 (07:49→20:30)
[2016-06-25] MEDS: VERAPAMIL HCL 120 MG TABCR PO SCH (07:49)
[2016-06-25] MEDS: GABAPENTIN 300 MG CAP PO SCH (07:50)
[2016-06-25] MEDS: ATORVASTATIN 40 MG TAB PO SCH (07:50)
[2016-06-25] MEDS: PANTOprazole SOD 40 MG TAB PO SCH (07:50)
[2016-06-25] MEDS: ENOXAPARIN 40 MG/0.4 ML SYR SC SCH (07:50)
[2016-06-25] MEDS: BuPROPion SR 100 MG TABCR PO SCH ×2 (07:50→20:31)
[2016-06-25] MEDS: NICOTINE 21 MG/24 HR TDSY TD SCH (07:50)
[2016-06-25 08:00] LABS: BUN/CREATININE RATIO 31.2 (10-20); CALCIUM 8.9 mg/dl (8.5-10.1); CREATININE 1.1 mg/dl (0.60-1.40); POTASSIUM 4.6 mmol/L (3.5-5.1)
--- NOTE | 2016-06-25 08:33 | Progress Note ---
Subjective Date of Service: June 25, 2016. Subjective Pt evaluation today including: conversation w/ patient, physical exam, lab review, review of studies, review of inpatient medication list Saw/examined the patient in room 275 His breathing is slowly improving; still has productive cough, dyspnea with exertion, back on home O2 Denies chest pain/palpitations Problem List Medical Problems: (1) Acute bronchitis Status: Acute (2) COPD exacerbation Status: Acute (3) COPD exacerbation Status: Acute (4) Respiratory distress Status: Acute (5) Shortness of breath Status: Acute Review of Systems Constitutional: No chills, No fever Respiratory: + cough, + dyspnea on exertion, + shortness of breath, + sputum, + wheezing, No dyspnea at rest, No hemoptysis Cardiac: No chest pain, No palpitations Abdomen: No diarrhea, No nausea, No pain, No vomiting Medications Current Inpatient Medications Medications (Trade) Dose Ordered Sig/Fadi Route Start Time Stop Time Status Last Admin Dose Admin Enoxaparin Sodium (Lovenox Inj) 40 mg QAM SC 06/22/16 14:00 07/22/16 13:59 06/25/16 07:50 40 MG Acetaminophen (Tylenol Tab) 650 mg Q4H PRN PO 06/22/16 11:45 07/22/16 11:44 Ondansetron HCl (Zofran Inj) 4 mg Q6H PRN IV 06/22/16 11:45 07/22/16 11:44 Arformoterol Tartrate (Brovana 15MCG/ 2ML Neb Soln) 15 mcg BIDR INH 06/22/16 20:00 07/22/16 19:59 06/25/16 07:00 15 MCG Atorvastatin Calcium (Lipitor Tab) 40 mg DAILY PO 06/23/16 09:00 07/23/16 08:59 06/25/16 07:50 40 MG Budesonide/ Formoterol Fumarate (Symbicort 160/ 4.5 Inh) 2 puffs BID INH 06/22/16 21:00 07/22/16 20:59 06/25/16 07:49 2 PUFFS Bupropion HCl (Wellbutrin-Sr Tab) 100 mg BID PO 06/22/16 21:00 07/22/16 20:59 06/25/16 07:50 100 MG Formoterol Fumarate (Perforomist 20MCG/2ML Neb Soln) 20 mcg BIDR INH 06/22/16 20:00 07/22/16 19:59 06/24/16 19:00 20 MCG Gabapentin (Neurontin Cap) 300 mg QAM PO 06/23/16 09:00 07/23/16 08:59 06/25/16 07:50 300 MG Glipizide (Glucotrol Tab) 2.5 mg DAILY PO 06/23/16 09:00 07/23/16 08:59 06/25/16 07:50 2.5 MG Albuterol/ Ipratropium (Combivent Respimat Inh) 1 puffs Q6 INH 06/22/16 12:00 07/22/16 11:59 Future Hold 06/22/16 23:15 1 PUFFS Levothyroxine Sodium (Synthroid Tab) 50 mcg DAILYBB PO 06/23/16 06:30 07/23/16 06:29 06/25/16 06:13 50 MCG Nicotine (Nicoderm Cq 21MG Patch) 1 patch QAM TD 06/23/16 09:00 07/23/16 08:59 06/25/16 07:50 1 PATCH Verapamil HCl (Calan-Sr Tab) 120 mg DAILY PO 06/23/16 09:00 07/23/16 08:59 06/25/16 07:49 120 MG Miscellaneous Information (Order Awaiting Action) 1 ea QS N/A 06/22/16 16:00 07/22/16 15:59 Pantoprazole Sodium (Protonix Tab) 40 mg DAILY PO 06/23/16 09:00 07/23/16 08:59 06/25/16 07:50 40 MG Miscellaneous (Remove Nicoderm Patch) 1 ea HS N/A 06/22/16 21:00 07/22/16 20:59 06/23/16 20:30 1 EA Levalbuterol (Xopenex 1.25MG/ 0.5ML Neb) 1.25 mg Q6R INH 06/22/16 15:00 07/22/16 14:59 Future hold 06/24/16 23:03 1.25 MG Levofloxacin 750 mg 750 mg DAILY@11 PO 06/23/16 11:00 06/29/16 10:59 06/24/16 10:57 750 MG Methylprednisolone Sodium Succinate/ Syringe (Solu-Medrol IV/ Syringe) 0.64 ml @ 1.5 mls/min Q8H IV 06/24/16 14:00 07/24/16 13:59 06/25/16 06:12 1.5 MLS/MIN Objective Vital Signs Date Time Temp Pulse Resp B/P Pulse Ox O2 Delivery O2 Flow Rate FiO2 06/25/16 07:12 36.6 81 18 175/93 97 Nasal Cannula 4.0 06/25/16 07:01 77 18 98 Nasal Cannula 4.0 06/25/16 04:28 36.7 99 18 137/74 96 Nasal Cannula 4.0 06/25/16 04:00 Nasal Cannula 4.0 06/25/16 00:00 Nasal Cannula 4.0 06/24/16 23:56 36.6 72 18 165/88 98 Nasal Cannula 4.0 06/24/16 23:03 67 22 98 Nasal Cannula 4.0 06/24/16 20:00 Nasal Cannula 4.0 06/24/16 19:32 36.4 74 18 161/85 99 Nasal Cannula 4.0 06/24/16 19:00 73 22 97 Nasal Cannula 4.0 06/24/16 15:45 99 Nasal Cannula 4.0 06/24/16 15:30 36.7 72 16 152/69 99 4.0 06/24/16 13:50 73 22 97 Nasal Cannula 4.0 06/24/16 12:46 36.3 81 16 177/84 97 Nasal Cannula 4.0 06/24/16 12:00 97 Nasal Cannula 4.0 Physical Exam General Appearance: no apparent distress Respiratory/Chest: no respiratory distress, no accessory muscle use, + decreased breath sounds, + wheezing Cardiovascular: regular rate, rhythm, no edema, no murmur Abdomen: normal bowel sounds, non tender, soft Extremities: normal inspection, no pedal edema Laboratory Results Last 24 Hours Test 06/25/16 07:06 White Blood Count 17.84 K/uL Red Blood Count 4.41 M/uL Hemoglobin 15.0 g/dL Hematocrit 44.9 % Mean Corpuscular Volume 101.8 fL Mean Corpuscular Hemoglobin 34.0 pg Mean Corpuscular Hemoglobin Concent 33.4 g/dl RDW Standard Deviation 45.8 fL RDW Coefficient of Variation 12.2 % Platelet Count 149 K/uL Mean Platelet Volume 10.9 fL Sodium Level 140 mmol/L Potassium Level 4.6 mmol/L Chloride Level 99 mmol/L Carbon Dioxide Level 40 mmol/L Anion Gap 1.0 mmol/L Blood Urea Nitrogen 34 mg/dl Creatinine 1.10 mg/dl Est Creatinine Clear Calc Drug Dose 73.3 ml/min Estimated GFR () 81.8 Estimated GFR (Non- 70.6 BUN/Creatinine Ratio 31.2 Random Glucose 189 mg/dl Calcium Level 8.9 mg/dl Assessment and Plan This is a 66 year old male with a PMH of severe COPD and chronic respiratory failure requiring continuous O2 use at home, tobacco use disorder, depression, ectopic atrial tachycardia, DM2, hypothyroidism, GERD presents with worsening shortness of breath Acute COPD exacerbation Acute on Chronic Respiratory Failure 06/25 Continue Solu-medrol 40mg q8 taper down in 1-2 days continue abx for five days (#3/) continue Brovana, Symbicort, Formoterol nebulizers restart Combivent on discharge would like to discuss Chantix usage prior to discharge for tobacco cessation 06/24 severe COPD at this point, we can continue Solu-medrol; I'll taper it to 40mg q8 for now continue IV Levaquin breathing treatments help, can continue nebulizers hold Combivent continue Brovana, Symbicort, Formoterol 06/23 patient presents with significant COPD (he has very severe COPD as per PFTs) uses 3.5L of O2 at home, he bumped it up to 4L continuously still felt significantly short of breath He was given IV solu-medrol, I agree with 60mg q8 for now continue IV Levaquin nebulizers as needed continue inhalers including Brovana, Symbicort, Formoterol, Combivent possible addition of Spiriva as outpatient Tobacco Use Disorder still smokes about 1/2 PPD currently has a nicotine patch on counseled on tobacco cessation Ectopic Atrial Tachycardia monitor for tachycardia with solu-medrol use continue Verapamil monitor in tele for another day or two, as we taper solu-medrol, we can d/c tele DM2 Ha1c in May 2016 = 5.6% well controlled continue low dose glipizide for now Hypothyroid continue Synthroid DVT ppx Lovenox FULL CODE
[2016-06-25] MEDS ORDERED: LISINOPRIL 5 MG TAB PO ONE (09:00)
[2016-06-25] MEDS: LISINOPRIL 10 MG TAB PO SCH (09:19)
[2016-06-25] MEDS: LEVOFLOXACIN 750 MG TAB PO SCH (11:09)
[2016-06-25] MEDS ORDERED: BENZONATATE 100MG CAP PO ONE (15:00)
[2016-06-25] MEDS: BENZONATATE 100MG CAP PO SCH (20:30)
[2016-06-26] MEDS: METHYLPREDNISOLONE IV 40 MG in SYRINGE 0 ML IV SCH ×3 (05:33→21:38)
[2016-06-26] MEDS: LEVOTHYROXINE 50 MCG TAB PO SCH (05:33)
[2016-06-26 05:54] LABS: HEMATOCRIT 44.5 % (42-52); MEAN CELL VOLUME 101.1 fL (80-100); MEAN CORPUSCULAR HEMOGLOBIN 32.7 pg (25-34); MEAN CORPUSCULAR HGB CONC 32.4 g/dl (32-36); MEAN PLATELET VOLUME 11.1 fL (7.4-10.4); PLATELET COUNT 148 K/uL (130-400); WHITE BLOOD COUNT 14.55 K/uL (4.8-10.8)
[2016-06-26 06:36] LABS: BUN/CREATININE RATIO 33.9 (10-20); CREATININE 0.95 mg/dl (0.60-1.40); POTASSIUM 4.4 mmol/L (3.5-5.1)
[2016-06-26] MEDS: NICOTINE 21 MG/24 HR TDSY TD SCH (07:46)
[2016-06-26] MEDS: LISINOPRIL 10 MG TAB PO SCH (07:46)
[2016-06-26] MEDS: PANTOprazole SOD 40 MG TAB PO SCH (07:46)
[2016-06-26] MEDS: VERAPAMIL HCL 120 MG TABCR PO SCH (07:46)
[2016-06-26] MEDS: BENZONATATE 100MG CAP PO SCH ×3 (07:47→21:37)
[2016-06-26] MEDS: GABAPENTIN 300 MG CAP PO SCH (07:47)
[2016-06-26] MEDS: ENOXAPARIN 40 MG/0.4 ML SYR SC SCH (07:47)
[2016-06-26] MEDS: ATORVASTATIN 40 MG TAB PO SCH (07:47)
[2016-06-26] MEDS: BuPROPion SR 100 MG TABCR PO SCH ×2 (07:47→21:38)
[2016-06-26] MEDS: BUDESONIDE/FORMOTEROL FUMARATE 160/4.5 60 PUFFS/INHALER INH SCH ×2 (07:48→21:36)
[2016-06-26] MEDS: ARFORMOTEROL TART 15MCG/2ML VIAL INH SCH ×2 (07:53→19:37)
[2016-06-26 07:54] VITALS: BP 163/83; PULSE 71; PULSE 76; TEMP 36.7; O2SAT 97; O2SAT 98
[2016-06-26] MEDS: FORMOTEROL FUMA NEBULIZER SOLN 20 MCG/2 ML VIAL INH SCH ×2 (08:00→19:37)
[2016-06-26 09:13] VITALS: O2SAT 97
[2016-06-26] MEDS: LEVOFLOXACIN 750 MG TAB PO SCH (14:17)
[2016-06-26] MEDS: LEVALBUTEROL 1.25MG/0.5ML NEB INH SCH ×3 (14:40→23:07)
[2016-06-26 14:41] VITALS: PULSE 74; O2SAT 99
[2016-06-26 15:45] VITALS: BP 154/88; PULSE 75; TEMP 36.4; O2SAT 98
[2016-06-26] MEDS ORDERED: GLUCOSE 10 TABS/TUBE PO PRN (18:45)
[2016-06-26] MEDS ORDERED: GLUCOSE 40% GEL 15 GM TUBE PO PRN (18:45)
[2016-06-26] MEDS ORDERED: GLUCAGON FOR INJ 1 MG VIAL SQ PRN (18:45)
[2016-06-26] MEDS ORDERED: DEXTROSE 50% 50 ML SYR IV PRN (18:45)
[2016-06-26] MEDS ORDERED: PHARMACY GLYCEMIC MGMT CONSULT PRN (19:09)
[2016-06-26 19:37] VITALS: PULSE 72; O2SAT 99
--- NOTE | 2016-06-26 20:39 | Progress Note ---
Medicine Progress Note Date & Time of Visit: June 26, 2016 at 13:08. Subjective 66 yo M admitted for acute on chronic resp failure 2/2 acute COPD exacerbation -tolerating PO feels "a hair" better than yesterday BM this am ambulatory but dyspnea with exertion is evident Objective Last 8 Hrs Date Time Temp Pulse Resp B/P Pulse Ox O2 Delivery O2 Flow Rate FiO2 06/26/16 09:13 97 Nasal Cannula 4.5 06/26/16 07:54 76 20 97 Nasal Cannula 4.0 06/26/16 07:54 36.7 71 20 163/83 98 Physical Exam: GEN: WNWD, in no acute distress, alert and appropriate, appears easily winded but has no overt conversational dyspnea. Sitting up in bedside chair HEENT: NC/AT, pupils are equal, normal sclerae/conjunctivae, MMM CARDIO: reg rate, S1/2 heard without m/g/r LUNGS: poor air movement with wheezing throughout all lung stevens. ABD: soft, non-tender, non-distended EXTREMITY: 2+ edema bilaterally, extremities are warm and well-perfused NEURO: CN 2-12 grossly intact, sensation intact throughout MUSC: 5/5 strength throughout, no focal deficits SKIN: warm and dry Laboratory Results: 06/26/16 05:20 06/26/16 05:20 Test 06/22/16 10:10 06/22/16 15:00 06/23/16 07:14 06/26/16 05:20 Immature Granulocyte % (Auto) 0.3 % White Blood Count 14.17 K/uL (4.8-10.8) Red Blood Count 4.56 M/uL (4.7-6.1) 4.40 M/uL (4.7-6.1) Hemoglobin 15.8 g/dL (14.0-18.0) Hematocrit 45.7 % (42-52) Mean Corpuscular Volume 100.2 fL (80-100) 101.1 fL (80-100) Mean Corpuscular Hemoglobin 34.6 pg (25-34) 32.7 pg (25-34) Mean Corpuscular Hemoglobin Concent 34.6 g/dl (32-36) 32.4 g/dl (32-36) Platelet Count 158 K/uL (130-400) Mean Platelet Volume 11.6 fL (7.4-10.4) 11.1 fL (7.4-10.4) Neutrophils (%) (Auto) 91.4 % Lymphocytes (%) (Auto) 3.7 % Monocytes (%) (Auto) 4.4 % Eosinophils (%) (Auto) 0.1 % Basophils (%) (Auto) 0.1 % Neutrophils # (Auto) 12.96 K/uL (1.4-6.5) Lymphocytes # (Auto) 0.53 K/uL (1.2-3.4) Monocytes # (Auto) 0.62 K/uL (0.11-0.59) Eosinophils # (Auto) 0.01 K/uL (0-0.5) Basophils # (Auto) 0.01 K/uL (0-0.2) Immature Granulocyte # (Auto) 0.04 K/uL (0.00-0.02) Venous Blood pH 7.39 (7.36-7.41) Venous Blood Partial Pressure CO2 61 mmHg (38.0-50.0) Venous Blood Partial Pressure O2 38 mmHg Venous Blood HCO3 36 mmol/L Venous Blood Oxygen Saturation 70.7 % Venous Blood Base Excess 9.1 mmol/L Total Bilirubin 0.9 mg/dl (0.2-1) Aspartate Amino Transf (AST/SGOT) 38 U/L (15-37) Alanine Aminotransferase (ALT/SGPT) 67 U/L (12-78) Alkaline Phosphatase 89 U/L (45-117) Total Creatine Kinase 44 U/L (39-308) Creatine Kinase MB 2.8 ng/ml (0.5-3.6) Creatine Kinase MB Ratio 6.4 (0-3.0) Troponin I < 0.015 ng/ml (0-0.045) Pro-B-Type Natriuretic Peptide 391 pg/ml (0-900) Total Protein 7.2 gm/dl (6.4-8.2) Albumin 3.4 gm/dl (3.4-5.0) Globulin 3.8 gm/dl (2.5-4.0) Albumin/Globulin Ratio 0.9 (0.9-2) Urine Color ORANGE Urine Appearance CLEAR (CLEAR) Urine pH 5.5 (4.5-7.5) Urine Specific Friedens 1.028 (1.000-1.030) Urine Protein 1+ (NEG) Urine Glucose (UA) TRACE (NEG) Urine Ketones TRACE (NEG) Urine Occult Blood NEG (NEG) Urine Nitrite NEG (NEG) Urine Bilirubin NEG (NEG) Urine Urobilinogen NEG (NEG) Urine Leukocyte Esterase NEG (NEG) Urine WBC (Auto) 1-5 /hpf (0-5) Urine RBC (Auto) 0-4 /hpf (0-4) Urine Hyaline Casts (Auto) 5-10 /lpf (0-5) Urine Epithelial Cells (Auto) 10-20 /lpf (0-5) Urine Bacteria (Auto) NEG (NEG) Phosphorus Level 3.3 mg/dl (2.5-4.9) Magnesium Level 2.3 mg/dl (1.8-2.4) RDW Standard Deviation 44.4 fL (36.4-46.3) RDW Coefficient of Variation 12.0 % (11.5-14.5) Anion Gap 3.0 mmol/L (3-11) Est Creatinine Clear Calc Drug Dose 84.9 ml/min Estimated GFR () 97.7 Estimated GFR (Non- 84.3 BUN/Creatinine Ratio 33.9 (10-20) Calcium Level 9.0 mg/dl (8.5-10.1) Test 06/26/16 20:13 Bedside Glucose 278 mg/dl (70-99) Date/Time Source Procedure Growth Status 06/22/16 10:10 Blood Blood Culture - Preliminary NO GROWTH TO DATE. Resulted Last 24 Hours Test 06/26/16 05:20 White Blood Count 14.55 K/uL Red Blood Count 4.40 M/uL Hemoglobin 14.4 g/dL Hematocrit 44.5 % Mean Corpuscular Volume 101.1 fL Mean Corpuscular Hemoglobin 32.7 pg Mean Corpuscular Hemoglobin Concent 32.4 g/dl RDW Standard Deviation 44.4 fL RDW Coefficient of Variation 12.0 % Platelet Count 148 K/uL Mean Platelet Volume 11.1 fL Sodium Level 139 mmol/L Potassium Level 4.4 mmol/L Chloride Level 97 mmol/L Carbon Dioxide Level 39 mmol/L Anion Gap 3.0 mmol/L Blood Urea Nitrogen 32 mg/dl Creatinine 0.95 mg/dl Est Creatinine Clear Calc Drug Dose 84.9 ml/min Estimated GFR () 97.7 Estimated GFR (Non- 84.3 BUN/Creatinine Ratio 33.9 Random Glucose 217 mg/dl Calcium Level 9.0 mg/dl Assessment & Plan This is a 66 year old male with a PMH of severe COPD and chronic respiratory failure requiring continuous O2 use at home, tobacco use disorder, depression, ectopic atrial tachycardia, DM2, hypothyroidism, GERD presents with worsening shortness of breath Acute on Chronic Respiratory Failure 2/2 Acute COPD exacerbation: still symptomatic with diffuse wheezing on exam. Cont IV steroids, antibiotics, scheduled nebs, home inhalers and avoidance of tobacco. Pulm was consulted as patient is on multiple redundant inhalers and not clinically improving. Tobacco Use Disorder: still smokes about 1/2 PPD, currently has a nicotine patch on, counseled on tobacco cessation Ectopic Atrial Tachycardia: continue Verapamil DM2: HbA1c in May 2016 = 5.6%, stop glipizide and use ISS and Lantus with ongoing IV steroids for better control. Appreciate glycemic pharmacy recs. Hypothyroid: stable, continue Synthroid Leukocytosis: poss 2/2 steroid use vs infection DVT ppx Lovenox FULL CODE Bernie Carey DO [facility] Hospitalist Current Inpatient Medications: Current Inpatient Medications Medications (Trade) Dose Ordered Sig/Fadi Route Start Time Stop Time Status Last Admin Dose Admin Enoxaparin Sodium (Lovenox Inj) 40 mg QAM SC 06/22/16 14:00 07/22/16 13:59 06/26/16 07:47 40 MG Acetaminophen (Tylenol Tab) 650 mg Q4H PRN PO 06/22/16 11:45 07/22/16 11:44 Ondansetron HCl (Zofran Inj) 4 mg Q6H PRN IV 06/22/16 11:45 07/22/16 11:44 Arformoterol Tartrate (Brovana 15MCG/ 2ML Neb Soln) 15 mcg BIDR INH 06/22/16 20:00 07/22/16 19:59 06/26/16 07:53 15 MCG Atorvastatin Calcium (Lipitor Tab) 40 mg DAILY PO 06/23/16 09:00 07/23/16 08:59 06/26/16 07:47 40 MG Budesonide/ Formoterol Fumarate (Symbicort 160/ 4.5 Inh) 2 puffs BID INH 06/22/16 21:00 07/22/16 20:59 06/26/16 07:48 2 PUFFS Bupropion HCl (Wellbutrin-Sr Tab) 100 mg BID PO 06/22/16 21:00 07/22/16 20:59 06/26/16 07:47 100 MG Formoterol Fumarate (Perforomist 20MCG/2ML Neb Soln) 20 mcg BIDR INH 06/22/16 20:00 07/22/16 19:59 06/24/16 19:00 20 MCG Gabapentin (Neurontin Cap) 300 mg QAM PO 06/23/16 09:00 07/23/16 08:59 06/26/16 07:47 300 MG Glipizide (Glucotrol Tab) 2.5 mg DAILY PO 06/23/16 09:00 07/23/16 08:59 06/26/16 07:46 2.5 MG Albuterol/ Ipratropium (Combivent Respimat Inh) 1 puffs Q6 INH 06/22/16 12:00 07/22/16 11:59 Future Hold 06/22/16 23:15 1 PUFFS Levothyroxine Sodium (Synthroid Tab) 50 mcg DAILYBB PO 06/23/16 06:30 07/23/16 06:29 06/26/16 05:33 50 MCG Nicotine (Nicoderm Cq 21MG Patch) 1 patch QAM TD 06/23/16 09:00 07/23/16 08:59 06/26/16 07:46 1 PATCH Verapamil HCl (Calan-Sr Tab) 120 mg DAILY PO 06/23/16 09:00 07/23/16 08:59 06/26/16 07:46 120 MG Miscellaneous Information (Order Awaiting Action) 1 ea QS N/A 06/22/16 16:00 07/22/16 15:59 Pantoprazole Sodium (Protonix Tab) 40 mg DAILY PO 06/23/16 09:00 07/23/16 08:59 06/26/16 07:46 40 MG Miscellaneous (Remove Nicoderm Patch) 1 ea HS N/A 06/22/16 21:00 07/22/16 20:59 06/25/16 20:30 1 EA Levalbuterol (Xopenex 1.25MG/ 0.5ML Neb) 1.25 mg Q6R INH 06/22/16 15:00 07/22/16 14:59 Future hold 06/25/16 23:27 1.25 MG Levofloxacin 750 mg 750 mg DAILY@11 PO 06/23/16 11:00 06/29/16 10:59 06/25/16 11:09 750 MG Methylprednisolone Sodium Succinate/ Syringe (Solu-Medrol IV/ Syringe) 0.64 ml @ 1.5 mls/min Q8H IV 06/24/16 14:00 07/24/16 13:59 06/26/16 05:33 1.5 MLS/MIN Lisinopril (Zestril Tab) 10 mg QAM PO 06/25/16 09:00 07/25/16 08:59 06/26/16 07:46 10 MG Benzonatate (Tessalon Perles Cap) 100 mg TID PO 06/25/16 21:00 07/25/16 20:59 06/26/16 07:47 100 MG
[2016-06-26] MEDS ORDERED: INSULIN GLARGINE SOLOSTAR 100 UNITS/ML 3 ML PEN SC SCH (21:00)
[2016-06-26] MEDS: INSULIN ASPART 100 UNITS/ML 3 ML PEN SC SCH (21:43)
[2016-06-26 23:07] VITALS: PULSE 76; O2SAT 98
[2016-06-27] VITALS (8 sets, daily range): BP systolic 135–183; BP diastolic 70–97; PULSE 70–87; TEMP 36.2–36.5; O2SAT 94–99
[2016-06-27] MEDS: METHYLPREDNISOLONE IV 40 MG in SYRINGE 0 ML IV SCH ×3 (06:09→21:20)
[2016-06-27] MEDS: LEVOTHYROXINE 50 MCG TAB PO SCH (06:09)
[2016-06-27] MEDS: ATORVASTATIN 40 MG TAB PO SCH (07:55)
[2016-06-27] MEDS: GABAPENTIN 300 MG CAP PO SCH (07:55)
[2016-06-27] MEDS: VERAPAMIL HCL 120 MG TABCR PO SCH (07:56)
[2016-06-27] MEDS: FORMOTEROL FUMA NEBULIZER SOLN 20 MCG/2 ML VIAL INH SCH ×2 (07:56→19:07)
[2016-06-27] MEDS: LEVALBUTEROL 1.25MG/0.5ML NEB INH SCH ×3 (07:56→19:07)
[2016-06-27] MEDS: BuPROPion SR 100 MG TABCR PO SCH ×2 (07:56→21:19)
[2016-06-27] MEDS: BENZONATATE 100MG CAP PO SCH (07:56)
[2016-06-27] MEDS: ARFORMOTEROL TART 15MCG/2ML VIAL INH SCH ×2 (07:56→19:07)
[2016-06-27] MEDS: PANTOprazole SOD 40 MG TAB PO SCH (07:57)
[2016-06-27] MEDS: ENOXAPARIN 40 MG/0.4 ML SYR SC SCH (07:58)
[2016-06-27] MEDS: NICOTINE 21 MG/24 HR TDSY TD SCH (07:58)
[2016-06-27] MEDS: LISINOPRIL 10 MG TAB PO SCH (08:01)
[2016-06-27] MEDS: BUDESONIDE/FORMOTEROL FUMARATE 160/4.5 60 PUFFS/INHALER INH SCH ×2 (08:02→21:17)
[2016-06-27] MEDS: INSULIN ASPART 100 UNITS/ML 3 ML PEN SC SCH ×4 (08:07→21:22)
--- NOTE | 2016-06-27 08:17 | Pulmonary Consultation ---
History General Date of Service: June 27, 2016. Stated Complaint: Copd Exacerbation HPI The patient is a 66 year old male who presents to [facility] with complaints of Copd Exacerbation. The patient's primary care provider is Derrell Schmidt M.D.([facility]). 66y/o male with very sever COPD (FEV1: 19%) admitted for COPD on 06/22/2016 with l continued dyspnea. The patient notes dyspnea at rest, non-productive cough, vertigo with standing and chronic rhinitis/sinusitis. I should also not help status episodes of dysphagia. He currently denies: cardiac chest pain, pleurisy , fever, chills, and hemoptysis. Current Work-Up WBC: [id number] VBG (06/22/16) 7.39/61---corrected to7.42/51 CO2: 40 BUN/Cr: 27/1.2------32/0.95 BNP: 391 CXR (06/22/16) WNL EKG (06/22/16) sinus rhythm with RBBB Echo Cardiogram (06/23/2016) LV: EF=>70%, cavity size is decreased, RV: WNL Blood Cx: no growth Previous Work-Up PFT (05/10/15) Spirometry: sever OVD Significant Bronchodilator reversibility Lung volumes show significant air trapping Diffusion capacity moderately reduced CT Thorax (01/18/2015) RUL bronchiectasis Treatment: Solu-Medrol: current dosing 40mg Q8 Levaquin 750mg day 5 of 7 Nicoderm patch Symbicort 160/4.5 2 puffs BID Brovana 15mcg BID (LABA & LAMA) Wellbutrin Perforomist BID if on D/C (LABA) Xopenex I/Os -900 Historian: patient, EMS Review of Systems Constitutional: reports: malaise, weakness Eyes: reports: no symptoms ENT: reports: nasal congestion, rhinorrhea Cardiovascular: reports: no symptoms Respiratory: reports: as stated in HPI Gastrointestinal: reports: no symptoms Genitourinary - Male: reports: no symptoms Musculoskeletal: reports: no symptoms Integumentary: reports: no symptoms Neurologic: reports: no symptoms Psychiatric: reports: no symptoms Endocrine: no symptoms Hematologic / Lymphatic: no symptoms Allergic / Immunologic: no symptoms Past Medical History Past Medical History: 1) Very Sever COPD (FEV1: 19%-01/18/15) a. Pulm Rehab: () b. Oximetry (03/14/12) longest continuous time with SaO2 <=88% was 40sec 2) ACOS: FEV1 (0.67/19%--0.94/27%) post-bronchodilator 3) O2 dependent3.5L 4) MIRANDA 5) Tobacco abuse 6) DM II 7) Hypothyroidism 8) HTN 9) Neuropathy 10) Colonic poly 11) Depression Past Medical History: COPD, diabetes, hypothyroidism, other Past Surgical History: 1) Urologic 2) Bronchoscopy 3) Colonoscopy/polypectomy 4) PTCA (03/19/08) aRaza WNL Past Surgical History: other Family History Cancer Diabetes mellitus Kidney disease Kidney stones Lung disease Cancer Diabetes mellitus Kidney disease Kidney stones Lung disease Social History Hx Tobacco Use In Past Year?: Yes Smoking Status: Current Every Day Smoker Alcohol: socially, daily, other Drug Use: none Housing status: lives alone Occupational Status: retired Hx Tobacco Use In Past Year?: Yes Smoking Status: Current Every Day Smoker Alcohol: socially, daily, other Drug Use: none Housing status: lives alone Occupational Status: retired Immunizations History of Influenza Vaccine: N/A History of Tetanus Vaccine?: Yes Tetanus Immunization Date: Jul 17, 2010 History of Pneumococcal: Yes Pneumococcal Date: Dec 06, 2008 History of Hepatitis B Vaccine: No History of MDRO History of MDRO: No Allergies Coded Allergies: Poultry Meal (Verified Allergy, Intermediate, TURKEY - HIVES, RASH, NAUSEA , 06/24/16) NOT CHICKEN, ONLY TURKEY Current Medications Reported Home Medications Medications Dose Route/Sig Max Daily Dose Days Date Category Ventolin Hfa (Albuterol) 200 Puffs/74859 Mcg Aers 2 Puffs PO QID PRN 06/22/16 Reported Advair Hfa 115/21 Mcg (Fluticasone-Salmeterol 115/21 Mcg) 1 Aer Aer 2 Puffs PO DIRECTED 06/22/16 Reported Bupropion HCl Sr (Bupropion HCl) 100 Mg Tabcr 100 Mg PO BID 06/22/16 Reported Atorvastatin Calcium (Atorvastatin) 40 Mg Tab 40 Mg PO DAILY 06/22/16 Reported Symbicort 160-4.5 Mcg/Act (Budesonide/Formoterol Fumarate) 60 Puffs/Inhaler Aero 2 Puffs INH BID 30 05/01/16 Rx Nicotine 1 Patch Tdsy 1 Patch TD QAM 30 05/01/16 Rx Combivent Respimat (Ipratropium-Albuterol) 1 Aer Aer 2 Puffs PO Q6 04/27/16 Reported Brovana 15MCG/2ML Soln (Arformoterol Tartrate) Nebu 15 Mcg INH BID 02/02/15 Rx Perforomist (Formoterol Fumarate) 20 Mcg/2 Ml Nebu 20 Mcg INH BID 02/02/15 Rx Glipizide 5 Mg Tab 2.5 Mg PO DAILY 01/27/15 Reported Calan Sr Ext Rel (Verapamil HCl) 120 Mg Tabcr 120 Mg PO DAILY 07/19/12 Rx Synthroid (Levothyroxine Sodium) 50 Mcg Tab 50 Mcg PO DAILY 03/10/12 Reported Oxygen Gas 4 Liters NA CONTINOUS 06/14/11 Reported Neurontin (Gabapentin) 300 Mg Cap 300 Mg PO QAM 06/14/11 Reported Prilosec (Omeprazole) 20 Mg Capcr 20 Mg PO DAILY 06/28/09 Reported Physical Physical Exam Vital Signs: Date Time Temp Pulse Resp B/P Pulse Ox O2 Delivery O2 Flow Rate FiO2 06/27/16 00:38 36.4 75 22 183/97 98 Nasal Cannula 4.0 06/27/16 00:00 Nasal Cannula 4.0 06/26/16 23:07 76 20 98 Nasal Cannula 4.0 06/26/16 19:37 72 20 99 Nasal Cannula 4.0 06/26/16 16:20 Nasal Cannula 4.5 06/26/16 15:45 36.4 75 20 154/88 98 4.0 06/26/16 14:41 74 16 99 Nasal Cannula 5.0 06/26/16 09:13 97 Nasal Cannula 4.5 06/26/16 07:54 76 20 97 Nasal Cannula 4.0 06/26/16 07:54 36.7 71 20 163/83 98 General Appearance: moderate distress Head: NORMOCEPHALIC, ATRAUMATIC Eyes: PERRLA, NO DISCHARGE, EOMI, SCLERAE NORMAL, CONJUNCTIVAE NORMAL ENT: NORMAL EAR EXAM, sinus tenderness, sinus erythema Neck: NORMAL RANGE OF MOTION, NO TENDERNESS, TRACHEA MIDLINE, NO STRIDOR, SUPPLE Respiratory: other (Decreased BS bilaterally/thoracic US shows diffuse b-lines globally) Cardiovasular: REGULAR RATE/RHYTHM, NORMAL S1S2, NO M/G/R Abdomen: NON TENDER, NORMAL BOWEL SOUNDS, NO REBOUND, NO MASSES Genitourinary - Male: EXTERNAL GENITALIA NORMAL Back: NORMAL INSPECTION, NO MIDLINE TENDERNESS, NO CVA TENDERNESS, NO PARAVERTEBRAL TTP Upper Extremities: NO EDEMA, NO DEFORMITY, NORMAL ROM Lower Extremities: edema Edema: Bilateral LE (2+) Pulses: carotid (R) (2+), carotid (L) (2+), dorsalis pedis (R) (1+), dorsalis pedis (L) (1+) Neuro: ALERT, ORIENTED x 3, NORMAL MOTOR EXAM, NORMAL SENSATION, NORMAL CEREBELLAR EXAM Reflexes: biceps (R) (2+), bicpes (L) (2+), achilles (R) (2+), achilles (L) (2+ ) Babinski Testing: right (downgoing), left (downgoing) Psychiatric: NORMAL AFFECT, NO SUICIDAL IDEATION, CONTRACTS FOR SAFETY Diagnostics Labs Results Past 24 Hours Test 06/26/16 20:13 06/27/16 07:34 Range/Units Bedside Glucose 278 202 70-99 mg/dl Diagnostic Radiology CXR (06/22/16) WNL EKG EKG (06/22/16) sinus rhythm with RBBB Impression Assessment and Plan 66 y/o male with very sever COPD admitted with acute on chronic respiratory failure: 1) COPD: I agree with is current drug regime but will d/c his Perforomist as it is a LAMA and he already being treated with one. we should also look at other sources of COPD exacerbations in this patient with dysphagia, rhinitis/ sinusitis and history of bronchiectatic changes on CT of the thorax. a) CT of the Thorax b) Nocturnal Oximetry study to evaluate for BiPAP benefit c) Possible bronchoscopy as an out-patient for evaluation of recurrent COPD flairs d) CT sinuses and start on Flonase one puff each nostril BID e) Diuresis: The thoracic US, cardiac echo and physical exam notable for bilateral lower ext edema consistent with volume overload f) Vertigo: lets obtain ortho-static BP (lying, sitting, standing) 2) Smoking: After discussion smoking cessation the patient is still not ready to quite. This is a notable reason for his re-exacerbations 3) MIRANDA: Hx of MIRANDA will obtain the previous study
[2016-06-27] MEDS ORDERED: INSULIN GLARGINE SOLOSTAR 100 UNITS/ML 3 ML PEN SC SCH ×2 (09:00→21:00)
[2016-06-27] MEDS: FLUTICASONE PROPIONATE NA SPR 16 GM BTL SCH ×2 (09:24→21:18)
--- NOTE | 2016-06-27 09:45 | DIAGNOSTIC IMAGING REPORT ---
SINUS CT CT DOSE: HISTORY: Sinusitis. Bronchiectasis. chronic sinusitis with flare TECHNIQUE: Multiaxial CT images of the paranasal sinuses were performed and reformatted in the coronal plane without the use of contrast. COMPARISON: None. FINDINGS: Moderate mucosal thickening of the left maxillary sinus. Minimal mucosal thickening of the ethmoid sinuses. Soft tissue occlusion left ostiomeatal unit. Right ostiomeatal unit is patent. Mild nasal septal displacement to the right. All remaining sinuses are clear. There is no significant bony destructive process. The mastoid air cells are clear. The orbits are unremarkable. IMPRESSION: 1. Moderate mucosal thickening of left maxillary sinus with minimal changes seen within the ethmoids. 2. Soft tissue occlusion left ostiomeatal unit. 3. Sinuses are otherwise clear. Electronically signed by: Adrián Vincent M.D. 06/27/2016 9:44 AM Dictated Date/Time: 06/27/2016 9:41 AM
--- NOTE | 2016-06-27 10:13 | Progress Note ---
Medicine Progress Note Date & Time of Visit: June 27, 2016 at 10:03. Subjective 66 yo M with COPD exacerbation -no improvement from yesterday -pulm saw this morning and ordered CT sinus, CT chest and Flonase -persistent swelling in legs, no worse, but suspect diastolic dysfunction with body wall edema also seen on bedside us performed by pulm this am. -denies cough, fevers, chills overnight -tolerating PO Objective Last 8 Hrs Date Time Temp Pulse Resp B/P Pulse Ox O2 Delivery O2 Flow Rate FiO2 06/27/16 08:05 36.5 78 20 164/82 98 4.0 06/27/16 08:00 Nasal Cannula 4.0 06/27/16 07:57 74 20 99 Nasal Cannula 4.0 Physical Exam: GEN: WNWD, conversational dyspnea, alert and appropriate. Sitting up in bedside chair HEENT: NC/AT, pupils are equal, normal sclerae/conjunctivae, MMM CARDIO: reg rate, S1/2 heard without m/g/r LUNGS: poor air movement with wheezing throughout all lung stevens. ABD: soft, non-tender, non-distended EXTREMITY: 2+ edema bilaterally, extremities are warm and well-perfused NEURO: CN 2-12 grossly intact, sensation intact throughout MUSC: 5/5 strength throughout, no focal deficits SKIN: warm and dry Laboratory Results: 06/26/16 05:20 06/26/16 05:20 Test 06/22/16 10:10 06/22/16 15:00 06/23/16 07:14 06/26/16 05:20 Immature Granulocyte % (Auto) 0.3 % White Blood Count 14.17 K/uL (4.8-10.8) Red Blood Count 4.56 M/uL (4.7-6.1) 4.40 M/uL (4.7-6.1) Hemoglobin 15.8 g/dL (14.0-18.0) Hematocrit 45.7 % (42-52) Mean Corpuscular Volume 100.2 fL (80-100) 101.1 fL (80-100) Mean Corpuscular Hemoglobin 34.6 pg (25-34) 32.7 pg (25-34) Mean Corpuscular Hemoglobin Concent 34.6 g/dl (32-36) 32.4 g/dl (32-36) Platelet Count 158 K/uL (130-400) Mean Platelet Volume 11.6 fL (7.4-10.4) 11.1 fL (7.4-10.4) Neutrophils (%) (Auto) 91.4 % Lymphocytes (%) (Auto) 3.7 % Monocytes (%) (Auto) 4.4 % Eosinophils (%) (Auto) 0.1 % Basophils (%) (Auto) 0.1 % Neutrophils # (Auto) 12.96 K/uL (1.4-6.5) Lymphocytes # (Auto) 0.53 K/uL (1.2-3.4) Monocytes # (Auto) 0.62 K/uL (0.11-0.59) Eosinophils # (Auto) 0.01 K/uL (0-0.5) Basophils # (Auto) 0.01 K/uL (0-0.2) Immature Granulocyte # (Auto) 0.04 K/uL (0.00-0.02) Venous Blood pH 7.39 (7.36-7.41) Venous Blood Partial Pressure CO2 61 mmHg (38.0-50.0) Venous Blood Partial Pressure O2 38 mmHg Venous Blood HCO3 36 mmol/L Venous Blood Oxygen Saturation 70.7 % Venous Blood Base Excess 9.1 mmol/L Total Bilirubin 0.9 mg/dl (0.2-1) Aspartate Amino Transf (AST/SGOT) 38 U/L (15-37) Alanine Aminotransferase (ALT/SGPT) 67 U/L (12-78) Alkaline Phosphatase 89 U/L (45-117) Total Creatine Kinase 44 U/L (39-308) Creatine Kinase MB 2.8 ng/ml (0.5-3.6) Creatine Kinase MB Ratio 6.4 (0-3.0) Troponin I < 0.015 ng/ml (0-0.045) Pro-B-Type Natriuretic Peptide 391 pg/ml (0-900) Total Protein 7.2 gm/dl (6.4-8.2) Albumin 3.4 gm/dl (3.4-5.0) Globulin 3.8 gm/dl (2.5-4.0) Albumin/Globulin Ratio 0.9 (0.9-2) Urine Color ORANGE Urine Appearance CLEAR (CLEAR) Urine pH 5.5 (4.5-7.5) Urine Specific [place] 1.028 (1.000-1.030) Urine Protein 1+ (NEG) Urine Glucose (UA) TRACE (NEG) Urine Ketones TRACE (NEG) Urine Occult Blood NEG (NEG) Urine Nitrite NEG (NEG) Urine Bilirubin NEG (NEG) Urine Urobilinogen NEG (NEG) Urine Leukocyte Esterase NEG (NEG) Urine WBC (Auto) 1-5 /hpf (0-5) Urine RBC (Auto) 0-4 /hpf (0-4) Urine Hyaline Casts (Auto) 5-10 /lpf (0-5) Urine Epithelial Cells (Auto) 10-20 /lpf (0-5) Urine Bacteria (Auto) NEG (NEG) Phosphorus Level 3.3 mg/dl (2.5-4.9) Magnesium Level 2.3 mg/dl (1.8-2.4) RDW Standard Deviation 44.4 fL (36.4-46.3) RDW Coefficient of Variation 12.0 % (11.5-14.5) Anion Gap 3.0 mmol/L (3-11) Est Creatinine Clear Calc Drug Dose 84.9 ml/min Estimated GFR () 97.7 Estimated GFR (Non- 84.3 BUN/Creatinine Ratio 33.9 (10-20) Calcium Level 9.0 mg/dl (8.5-10.1) Test 06/27/16 07:34 Bedside Glucose 202 mg/dl (70-99) Date/Time Source Procedure Growth Status 06/22/16 10:10 Blood Blood Culture - Preliminary NO GROWTH TO DATE. Resulted Last 24 Hours Test 06/26/16 20:13 06/27/16 07:34 Bedside Glucose 278 mg/dl 202 mg/dl Assessment & Plan This is a 66 year old male with a PMH of severe COPD and chronic respiratory failure requiring continuous O2 use at home, tobacco use disorder, depression, ectopic atrial tachycardia, DM2, hypothyroidism, GERD presents with worsening shortness of breath Acute on Chronic Respiratory Failure 2/2 Acute COPD exacerbation: poss 2/2 sinus infection?-still symptomatic with diffuse wheezing on exam. Cont IV steroids, antibiotics, scheduled nebs, home inhalers and avoidance of tobacco. Pulm was consulted and agreed with HEATHER English (Advair order was placed and was dc'd). cont Symbicort and Performist. CT chest and sinuses ordered this am and Flonase added for suspected sinus infection. Hypertension: he doesn't carry a diagnosis as outpatient and is not on antihypertensives typically, however, he is elevated here poss 2/2 steroid use and stress from inability to smoke along with inability to breathe well. Will order PRN hydralazine PO >SBP 160, Lasix one dose was given this morning already so will hold off on any antihypertensives, and then will also put some clonazepam PRN to help with craving anxiety. Tobacco Use Disorder: still smokes about 1/2 PPD, currently has a nicotine patch on, counseled on tobacco cessation Ectopic Atrial Tachycardia: continue Verapamil DM2: HbA1c in May 2016 = 5.6%, stop glipizide and use ISS and Lantus with ongoing IV steroids for better control. Appreciate glycemic pharmacy recs. Hypothyroid: stable, continue Synthroid Leukocytosis: poss 2/2 steroid use vs infection DVT ppx Lovenox FULL CODE Dispo-uncertain at this time. Bernie Carey DO [facility] Hospitalist Consultants: Pulm Current Inpatient Medications: Current Inpatient Medications Medications (Trade) Dose Ordered Sig/Fadi Route Start Time Stop Time Status Last Admin Dose Admin Enoxaparin Sodium (Lovenox Inj) 40 mg QAM SC 06/22/16 14:00 07/22/16 13:59 06/27/16 07:58 40 MG Acetaminophen (Tylenol Tab) 650 mg Q4H PRN PO 06/22/16 11:45 07/22/16 11:44 Ondansetron HCl (Zofran Inj) 4 mg Q6H PRN IV 06/22/16 11:45 07/22/16 11:44 Arformoterol Tartrate (Brovana 15MCG/ 2ML Neb Soln) 15 mcg BIDR INH 06/22/16 20:00 07/22/16 19:59 06/27/16 07:56 15 MCG Atorvastatin Calcium (Lipitor Tab) 40 mg DAILY PO 06/23/16 09:00 07/23/16 08:59 06/27/16 07:55 40 MG Budesonide/ Formoterol Fumarate (Symbicort 160/ 4.5 Inh) 2 puffs BID INH 06/22/16 21:00 07/22/16 20:59 06/27/16 08:02 2 PUFFS Bupropion HCl (Wellbutrin-Sr Tab) 100 mg BID PO 06/22/16 21:00 07/22/16 20:59 06/27/16 07:56 100 MG Formoterol Fumarate (Perforomist 20MCG/2ML Neb Soln) 20 mcg BIDR INH 06/22/16 20:00 07/22/16 19:59 06/24/16 19:00 20 MCG Gabapentin (Neurontin Cap) 300 mg QAM PO 06/23/16 09:00 07/23/16 08:59 06/27/16 07:55 300 MG Albuterol/ Ipratropium (Combivent Respimat Inh) 1 puffs Q6 INH 06/22/16 12:00 07/22/16 11:59 Future Hold 06/22/16 23:15 1 PUFFS Levothyroxine Sodium (Synthroid Tab) 50 mcg DAILYBB PO 06/23/16 06:30 07/23/16 06:29 06/27/16 06:09 50 MCG Nicotine (Nicoderm Cq 21MG Patch) 1 patch QAM TD 06/23/16 09:00 07/23/16 08:59 06/27/16 07:58 1 PATCH Verapamil HCl (Calan-Sr Tab) 120 mg DAILY PO 06/23/16 09:00 07/23/16 08:59 06/27/16 07:56 120 MG Pantoprazole Sodium (Protonix Tab) 40 mg DAILY PO 06/23/16 09:00 07/23/16 08:59 06/27/16 07:57 40 MG Miscellaneous (Remove Nicoderm Patch) 1 ea HS N/A 06/22/16 21:00 07/22/16 20:59 06/26/16 21:00 1 EA Levalbuterol (Xopenex 1.25MG/ 0.5ML Neb) 1.25 mg Q6R INH 06/22/16 15:00 07/22/16 14:59 Future hold 06/26/16 23:07 1.25 MG Levofloxacin 750 mg 750 mg DAILY@11 PO 06/23/16 11:00 06/29/16 10:59 06/26/16 14:17 750 MG Methylprednisolone Sodium Succinate/ Syringe (Solu-Medrol IV/ Syringe) 0.64 ml @ 1.5 mls/min Q8H IV 06/24/16 14:00 07/24/16 13:59 06/27/16 06:09 1.5 MLS/MIN Lisinopril (Zestril Tab) 10 mg QAM PO 06/25/16 09:00 07/25/16 08:59 06/27/16 08:01 10 MG Insulin Aspart (novoLOG ASPART) SLIDING SCALE If C... ACHS SC 06/26/16 21:00 07/26/16 20:59 06/27/16 08:07 17 UNITS Glucose (Glucose 40% Gel) 15-30 GRAMS 15 GRAMS... UD PRN PO 06/26/16 18:45 07/26/16 18:44 Glucose (Glucose Chew Tab) 4-8 Tablets 4 Tabl... UD PRN PO 06/26/16 18:45 07/26/16 18:44 Dextrose (Dextrose 50% 50ML Syringe) 25-50ML OF 50% DW IV FOR... UD PRN IV 06/26/16 18:45 07/26/16 18:44 Glucagon (Glucagon Inj) 1 mg UD PRN SQ 06/26/16 18:45 07/26/16 18:44 Miscellaneous Information (Consult Glycemic Management Pharmacy) 1 ea DAILY PRN N/A 06/26/16 19:09 07/26/16 19:08 Fluticasone Propionate (Flonase Nasal [place]) 1 sprays BID NA 06/27/16 09:00 07/27/16 08:59 06/27/16 09:24 1 SPRAYS Insulin Glargine (Lantus Solostar Pen) 20 unit DAILY SC 06/27/16 09:00 07/27/16 08:59 06/27/16 09:25 20 UNIT Benzonatate 100 mg 100 mg TID PRN PO 06/27/16 14:00 07/27/16 13:59 UNV Furosemide/Syringe (Lasix Inj/ Syringe) 2 ml @ 4 mls/min ONE IV 06/27/16 09:45 07/27/16 09:44 UNV
[2016-06-27] MEDS ORDERED: POTASSIUM CHLORIDE 10 MEQ TABCR PO STA (10:14)
[2016-06-27] MEDS ORDERED: CLONAZEPAM 0.5 MG TAB PO PRN (10:15)
[2016-06-27] MEDS ORDERED: HydrALAZINE 10 MG TAB PO PRN (10:15)
--- NOTE | 2016-06-27 10:21 | DIAGNOSTIC IMAGING REPORT ---
CHEST CT WITHOUT CONTRAST CT DOSE: 1787.13 mGy.cm HISTORY: chronic bronchectasis TECHNIQUE: Multiaxial CT images of the chest were performed without contrast. COMPARISON: Chest CT 01/18/2015. FINDINGS: Mild motion artifact. The central airways are patent. No pleural effusions. No pneumothorax. Emphysema. Right apical scarlike density remains unchanged. There is a tiny linear scarlike density within the left lung apex. There are few subcentimeter nodular densities at the base of the right lower lobe. No mediastinal or hilar lymphadenopathy. Normal caliber thoracic aorta. The heart is normal in size. The visualized liver, spleen, and adrenal glands are unremarkable. Bilateral nephrolithiasis. IMPRESSION: 1. A few subcentimeter nodular densities at the base of the right lower lobe. This favors mild inflammatory/infectious change. 2. Emphysema. 3. Stable scarlike density within the right lung apex. 4. Bilateral nephrolithiasis. Electronically signed by: Joshua Guzman M.D. 06/27/2016 10:20 AM Dictated Date/Time: 06/27/2016 10:15 AM
[2016-06-27] MEDS: LEVOFLOXACIN 750 MG TAB PO SCH (10:38)
--- NOTE | 2016-06-27 10:41 | Pharmacy Progress Note ---
Glycemic Control Intl Consult Date of Service June 27, 2016. Scope Glycemic Pharmacist consulted by Dr Carey on 06/26/16 for glycemic control and to write orders per [facility] inpatient glycemic control protocol Objective Weight (Kilograms): 88.400 Accuchecks BSG (last 24hrs): Test 06/26/16 20:13 06/27/16 07:34 Bedside Glucose 278 mg/dl (70-99) 202 mg/dl (70-99) Recent Pertinent Medications Outpatient Anti-diabetic Regimen: * glipizide 2.5 mg qDay * A1c = 5.6 % 05/2016 Risk Factors for Insulin Resistance: * Steroids: Solu-Medrol 40 mg IV q8 hours * Infection: Levofloxacin 750 mg PO daily for COPD exacerbation * Diet: changed to type 2 diabetic diet Assessment & Plan ASSESSMENT: * ADA & AACE recommend a goal blood sugar range 140-180 mg/dl for the majority of critically ill & non-critically ill patients. However, more stringent targets may be selected in individual cases. Will utilize more stringent goal of 100-140 mg/dl based on patient age & comorbidities. Additionally, tighter glycemic control is warranted to facilitate wound/infection healing. * Mr Villareal was admitted 06/22/16 for a COPD exacerbation. His blood sugars were not checked except for morning fastings which increased each day secondary to steroids use (150 mg/dL, 189 mg/dL, and 217 mg/dL on day of consult). The patient is currently on Solu-Medrol 40 mg IV q8 hours since 06/24/16. Per Dr Carey, the patient has not improved much overnight and will continue IV steroids. * Last night, his blood sugar was 278 mg/dL which improved to 202 mg/L with 7 units of Novolog. Will start aggressive dosing with high dose steroids and several days of hyperglycemia. A weight based stress of 3 was utilized for correctional insulin as well as dosing of Lantus with the understanding that the patient is reasonably insulin sensitive. A scale of Lantus was added in the evening as the patient remained hyperglycemic at lunchtime. A stress of 2 was utilized for blood sugar less than 180 mg/dL and stress of 3 for greater than or equal to 180 mg/dL. PLAN FOR INPATIENT GLYCEMIC CONTROL: * Basal insulin with LANTUS 20 units SQ daily plus scale of Lantus at bedtime. * Correctional Insulin with NOVOLOG per scale ACHS * Goal Range: Low 100 mg/dL - High 140 mg/dL * Correction Factor: 20 mg/dL/unit * Nutritional / Prandial insulin per carb ratio of 1 unit per 6 grams CHO consumed * Please note that the plan above was derived based on current level of insulin resistance and hospital stress. These recommendations are appropriate for inpatient admission only. Plan of care upon discharge will need to be reassessed to avoid potential outpatient hypo/hyperglycemia. Thank you.
[2016-06-27] MEDS ORDERED: FUROSEMIDE INJ 20 MG in SYRINGE 0 ML IV ONE (11:00)
[2016-06-27] MEDS ORDERED: BENZONATATE 100MG CAP PO PRN (14:00)
[2016-06-28] VITALS (12 sets, daily range): BP systolic 123–184; BP diastolic 45–93; PULSE 66–98; TEMP 36.3–36.5; O2SAT 86–99
[2016-06-28] MEDS: LEVALBUTEROL 1.25MG/0.5ML NEB INH SCH ×4 (01:57→19:04)
[2016-06-28] MEDS: METHYLPREDNISOLONE IV 40 MG in SYRINGE 0 ML IV SCH ×3 (06:03→21:57)
[2016-06-28] MEDS: LEVOTHYROXINE 50 MCG TAB PO SCH (06:03)
[2016-06-28 06:17] LABS: HEMATOCRIT 43.4 % (42-52); MEAN CELL VOLUME 99.5 fL (80-100); MEAN CORPUSCULAR HEMOGLOBIN 33.9 pg (25-34); MEAN CORPUSCULAR HGB CONC 34.1 g/dl (32-36); MEAN PLATELET VOLUME 11.1 fL (7.4-10.4); PLATELET COUNT 126 K/uL (130-400); RED BLOOD COUNT 4.36 M/uL (4.7-6.1); WHITE BLOOD COUNT 13.95 K/uL (4.8-10.8)
[2016-06-28 07:16] LABS: BUN/CREATININE RATIO 31.3 (10-20); CALCIUM 8.4 mg/dl (8.5-10.1); CREATININE 0.91 mg/dl (0.60-1.40); MAGNESIUM 2.6 mg/dl (1.8-2.4); POTASSIUM 4.5 mmol/L (3.5-5.1)
[2016-06-28] MEDS: FORMOTEROL FUMA NEBULIZER SOLN 20 MCG/2 ML VIAL INH SCH ×2 (07:16→19:04)
[2016-06-28] MEDS: ARFORMOTEROL TART 15MCG/2ML VIAL INH SCH ×2 (07:16→19:03)
[2016-06-28] MEDS: LISINOPRIL 10 MG TAB PO SCH (07:54)
[2016-06-28] MEDS: BUDESONIDE/FORMOTEROL FUMARATE 160/4.5 60 PUFFS/INHALER INH SCH ×2 (07:54→21:12)
[2016-06-28] MEDS: BuPROPion SR 100 MG TABCR PO SCH ×2 (07:55→21:14)
[2016-06-28] MEDS: PANTOprazole SOD 40 MG TAB PO SCH (07:55)
[2016-06-28] MEDS: GABAPENTIN 300 MG CAP PO SCH (07:56)
[2016-06-28] MEDS: VERAPAMIL HCL 120 MG TABCR PO SCH (07:56)
[2016-06-28] MEDS: ATORVASTATIN 40 MG TAB PO SCH (07:56)
[2016-06-28] MEDS: ENOXAPARIN 40 MG/0.4 ML SYR SC SCH (07:57)
[2016-06-28] MEDS: NICOTINE 21 MG/24 HR TDSY TD SCH (07:58)
[2016-06-28] MEDS: FLUTICASONE PROPIONATE NA SPR 16 GM BTL SCH ×2 (07:58→21:14)
[2016-06-28] MEDS: INSULIN ASPART 100 UNITS/ML 3 ML PEN SC SCH ×4 (08:01→21:21)
[2016-06-28] MEDS: INSULIN GLARGINE SOLOSTAR 100 UNITS/ML 3 ML PEN SC SCH (08:02)
--- NOTE | 2016-06-28 10:08 | Pharmacy Progress Note ---
Glycemic Control: Progress Nt Date of Service June 28, 2016. Scope Glycemic Pharmacist consulted for glycemic control and to write orders per [facility] inpatient glycemic control protocol. Objective Accuchecks BSG (last 24hrs): Test 06/27/16 11:22 06/27/16 16:43 06/27/16 20:19 06/28/16 05:13 Bedside Glucose 232 mg/dl (70-99) 109 mg/dl (70-99) 174 mg/dl (70-99) Random Glucose 220 mg/dl (70-99) Test 06/28/16 07:48 Bedside Glucose 170 mg/dl (70-99) Laboratory Data (last 24hrs) Test 06/28/16 05:13 Anion Gap 2.0 mmol/L BUN/Creatinine Ratio 31.3 Blood Urea Nitrogen 29 mg/dl Creatinine 0.91 mg/dl Potassium Level 4.5 mmol/L Sodium Level 138 mmol/L White Blood Count 13.95 K/uL Recent Pertinent Medications Outpatient Anti-diabetic Regimen: * Glipizide 2.5 mg po daily * A1c = 5.6 % 05/2016 The patient is currently receiving: * Basal insulin: Lantus 20 units qAM with 15-20 units qPM per BSG * Correctional Insulin: Novolog Correction per scale ACHS Goal Range: Low 100 mg/dL - High 140 mg/dL Correction Factor: 20 mg/dL/unit * Prandial insulin: Per carb ratio of 1 unit per 6 grams CHO consumed * Oral Agents: On hold Risk Factors for Insulin Resistance: * Steroids: Methylprednisolone 40 mg IV q8 hours * Infection: Levofloxacin for COPD exacerbation * Diet: T2DM Assessment & Plan ASSESSMENT: 06/27/16 * ADA & AACE recommend a goal blood sugar range 140-180 mg/dl for the majority of critically ill & non-critically ill patients. However, more stringent targets may be selected in individual cases. Will utilize more stringent goal of 100-140 mg/dl based on patient age & comorbidities. Additionally, tighter glycemic control is warranted to facilitate wound/infection healing. * Mr Villareal was admitted 06/22/16 for a COPD exacerbation. His blood sugars were not checked except for morning fastings which increased each day secondary to steroids use (150 mg/dL, 189 mg/dL, and 217 mg/dL on day of consult). The patient is currently on Solu-Medrol 40 mg IV q8 hours since 06/24/16. Per Dr Carey, the patient has not improved much overnight and will continue IV steroids. * Last night, his blood sugar was 278 mg/dL which improved to 202 mg/L with 7 units of Novolog. Will start aggressive dosing with high dose steroids and several days of hyperglycemia. A weight based stress of 3 was utilized for correctional insulin as well as dosing of Lantus with the understanding that the patient is reasonably insulin sensitive. A scale of Lantus was added in the evening as the patient remained hyperglycemic at lunchtime. A stress of 2 was utilized for blood sugar less than 180 mg/dL and stress of 3 for greater than or equal to 180 mg/dL. 06/28/16 * Good outpatient control on orals alone, currently with steroid-induced hyperglycemia. No change to steroids ordered, yet. * BSG's ranging 109-232 mg/dL over the last 24 hours. Total of 77 units of insulin administered yesterday. * Do not anticipate need for basal insulin long-term. But will increase x1 this AM for fasting BSG of 170 mg/dL. Will utilize evening Lantus at lower dose , based on BSG. * No change to Novolog needed for now * Patient will require significant change to regimen if/when steroids tapered PLAN FOR INPATIENT GLYCEMIC CONTROL: * Continue to hold glipizide * Increase Basal insulin with LANTUS * 22 units SQ qAM (1/2 for BSG < 120 mg/dL) * 20 units SQ qPM (hold for BSG < 100 mg/dL, 1/2 for BSG 100-180 mg/dL) * Correctional Insulin with NOVOLOG per scale ACHS or Q6hrs while NPO * Goal Range: Low 100 mg/dL - High 140 mg/dL * Correction Factor: 20 mg/dL/unit * Nutritional / Prandial insulin per carb ratio of 1 unit per 6 grams CHO consumed * Please note that the plan above was derived based on current level of insulin resistance and hospital stress. These recommendations are appropriate for inpatient admission only. Plan of care upon discharge will need to be reassessed to avoid potential outpatient hypo/hyperglycemia. Thank you.
[2016-06-28] MEDS: LEVOFLOXACIN 750 MG TAB PO SCH (10:36)
[2016-06-28] MEDS ORDERED: FENTANYL CITRATE INJ 50 MCG/1 ML 2 ML VIAL ONE (17:46)
[2016-06-28] MEDS ORDERED: MIDAZOLAM HCL 1 MG/ML 2ML VIAL ONE (17:46)
--- NOTE | 2016-06-28 17:46 | Gastrointestinal Consultation ---
Gastrointestinal Consultation Date of Consultation: June 28, 2016 Attending Physician: Dr. Carey Consulting Physician: Case Reason for Consultation: Acute dysphagia secondary to food impaction. History of Present Illness Patient is a 66 year old male who presented to the [facility] on 06/22 secondary to COPD exacerbation. He has been improving from a pulmonary standpoint throughout his hospitalization. He was eating dinner this evening consisting of a pork chop, and developed acute dysphagia and sialorrhea. Dr. Carey contacted me regarding his acute issues. At the time I saw him, he was sitting at his bedside spitting into a bag that contained undigested pieces of food. He was still unable to drink any liquids without regurgitating them. He states that some days he has had difficulty swallowing his pills, however, he has never had a food impaction. He further denies any history of having an EGD. He states that he had previously taken medications for GERD, however, has not had any issues with this in many years. He denies any melena, hematochezia or hematemesis. He has no further complaints. Past Medical/Surgical History Medical Problems: (1) Acute bronchitis Status: Acute (2) COPD exacerbation Status: Acute (3) COPD exacerbation Status: Acute (4) Respiratory distress Status: Acute (5) Shortness of breath Status: Acute Past Medical History: COPD MIRANDA DM II HTN Hypothyroidism Depression Past Surgical History: PTCA in 2008 (WNL) Colonoscopy with polypectomy Family History Cancer Diabetes mellitus Kidney disease Kidney stones Lung disease Social History Smoking Status: Current Every Day Smoker Alcohol Use: heavy Housing Status: lives alone Occupation Status: retired Allergies Coded Allergies: Poultry Meal (Verified Allergy, Intermediate, TURKEY - HIVES, RASH, NAUSEA , 06/24/16) NOT CHICKEN, ONLY TURKEY Current Medications Home Meds and Scripts Medications Dose Route/Sig Max Daily Dose Days Date Category Ventolin Hfa (Albuterol) 200 Puffs/39154 Mcg Aers 2 Puffs PO QID PRN 06/22/16 Reported Advair Hfa 115/21 Mcg (Fluticasone-Salmeterol 115/21 Mcg) 1 Aer Aer 2 Puffs PO DIRECTED 06/22/16 Reported Bupropion HCl Sr (Bupropion HCl) 100 Mg Tabcr 100 Mg PO BID 06/22/16 Reported Atorvastatin Calcium (Atorvastatin) 40 Mg Tab 40 Mg PO DAILY 06/22/16 Reported Symbicort 160-4.5 Mcg/Act (Budesonide/Formoterol Fumarate) 60 Puffs/Inhaler Aero 2 Puffs INH BID 30 05/01/16 Rx Nicotine 1 Patch Tdsy 1 Patch TD QAM 30 05/01/16 Rx Combivent Respimat (Ipratropium-Albuterol) 1 Aer Aer 2 Puffs PO Q6 04/27/16 Reported Brovana 15MCG/2ML Soln (Arformoterol Tartrate) Nebu 15 Mcg INH BID 02/02/15 Rx Perforomist (Formoterol Fumarate) 20 Mcg/2 Ml Nebu 20 Mcg INH BID 02/02/15 Rx Glipizide 5 Mg Tab 2.5 Mg PO DAILY 01/27/15 Reported Calan Sr Ext Rel (Verapamil HCl) 120 Mg Tabcr 120 Mg PO DAILY 07/19/12 Rx Synthroid (Levothyroxine Sodium) 50 Mcg Tab 50 Mcg PO DAILY 03/10/12 Reported Oxygen Gas 4 Liters NA CONTINOUS 06/14/11 Reported Neurontin (Gabapentin) 300 Mg Cap 300 Mg PO QAM 06/14/11 Reported Prilosec (Omeprazole) 20 Mg Capcr 20 Mg PO DAILY 06/28/09 Reported Review of Systems Constitutional: No chills, No fever Eyes: No eye pain ENT: + trouble swallowing, No unusual epistaxis Respiratory: + cough, + dyspnea on exertion, No shortness of breath Cardiac: No chest pain, No edema Abdomen: + dysphagia, + vomiting, No GI bleeding, No diarrhea, No jaundice, No nausea Male : No dysuria, No hematuria Psych: No anxiety Endo: + fatigue Skin: No rash Physical Exam Date Time Temp Pulse Resp B/P Pulse Ox O2 Delivery O2 Flow Rate FiO2 06/28/16 16:38 99 Nasal Cannula 4.0 06/28/16 15:43 36.5 75 18 155/84 98 Nasal Cannula 4.0 06/28/16 14:21 66 18 98 Nasal Cannula 4.0 06/28/16 09:02 69 172/80 74 176/83 84 135/72 06/28/16 08:01 36.5 76 20 184/93 99 4.0 06/28/16 08:00 99 Nasal Cannula 4.0 06/28/16 07:17 68 20 99 Nasal Cannula 4.0 06/28/16 00:00 Nasal Cannula 2.0 06/27/16 23:03 36.5 79 19 158/80 94 86 146/80 84 135/70 06/27/16 20:33 36.4 70 20 154/96 98 73 144/90 86 142/75 06/27/16 19:07 87 20 96 Nasal Cannula 4.0 General Appearance: + mild distress Eyes: normal inspection ENT: normal ENT inspection Neck: supple Respiratory/Chest: + decreased breath sounds (Bilateral bases) Cardiovascular: regular rate, rhythm Abdomen: normal bowel sounds, non tender, soft Extremities: no pedal edema Laboratory Results Last 24 Hours Test 06/27/16 20:19 06/28/16 05:13 06/28/16 07:48 06/28/16 11:26 Bedside Glucose 174 mg/dl 170 mg/dl 201 mg/dl White Blood Count 13.95 K/uL Red Blood Count 4.36 M/uL Hemoglobin 14.8 g/dL Hematocrit 43.4 % Mean Corpuscular Volume 99.5 fL Mean Corpuscular Hemoglobin 33.9 pg Mean Corpuscular Hemoglobin Concent 34.1 g/dl RDW Standard Deviation 43.1 fL RDW Coefficient of Variation 11.8 % Platelet Count 126 K/uL Mean Platelet Volume 11.1 fL Sodium Level 138 mmol/L Potassium Level 4.5 mmol/L Chloride Level 96 mmol/L Carbon Dioxide Level 40 mmol/L Anion Gap 2.0 mmol/L Blood Urea Nitrogen 29 mg/dl Creatinine 0.91 mg/dl Est Creatinine Clear Calc Drug Dose 88.6 ml/min Estimated GFR () 102.9 Estimated GFR (Non- 88.8 BUN/Creatinine Ratio 31.3 Random Glucose 220 mg/dl Calcium Level 8.4 mg/dl Magnesium Level 2.6 mg/dl Test 06/28/16 16:13 Bedside Glucose 201 mg/dl Impression Patient is a 66 year old male who presented for COPD exacerbation with improving symptoms, who developed acute dysphagia from food impaction. Plan Discussed case with Dr. Lainez. Patient will be taken to OR and undergo emergent EGD with removal of food impaction.
--- NOTE | 2016-06-28 17:50 | Progress Note ---
Medicine Progress Note Date & Time of Visit: June 28, 2016 at 17:46. Subjective 66 yo M with COPD exacerbation -pt is doing better today WRT breathing -he is moving air better on exam with still some slight wheezing -he is otherwise asymptomatic --Lasix given yesterday with increased output over the day Objective Last 8 Hrs Date Time Temp Pulse Resp B/P Pulse Ox O2 Delivery O2 Flow Rate FiO2 06/28/16 16:38 99 Nasal Cannula 4.0 06/28/16 15:43 36.5 75 18 155/84 98 Nasal Cannula 4.0 06/28/16 14:21 66 18 98 Nasal Cannula 4.0 Physical Exam: GEN: WNWD, no conversational dyspnea, alert and appropriate. Sitting up in bedside chair, nasal canula in place. HEENT: NC/AT, pupils are equal, normal sclerae/conjunctivae, MMM CARDIO: reg rate, S1/2 heard without m/g/r LUNGS: slight wheezing heard in RLL, otherwise clear and moving air throughout other stevens, although still slightly diminished. ABD: soft, non-tender, non-distended EXTREMITY: edema has resolved bilaterally, extremities are warm and well- perfused NEURO: CN 2-12 grossly intact, sensation intact throughout MUSC: 5/5 strength throughout, no focal deficits SKIN: warm and dry Laboratory Results: 06/28/16 05:13 06/28/16 05:13 Test 06/22/16 10:10 06/22/16 15:00 06/23/16 07:14 06/28/16 05:13 Immature Granulocyte % (Auto) 0.3 % White Blood Count 14.17 K/uL (4.8-10.8) Red Blood Count 4.56 M/uL (4.7-6.1) 4.36 M/uL (4.7-6.1) Hemoglobin 15.8 g/dL (14.0-18.0) Hematocrit 45.7 % (42-52) Mean Corpuscular Volume 100.2 fL (80-100) 99.5 fL (80-100) Mean Corpuscular Hemoglobin 34.6 pg (25-34) 33.9 pg (25-34) Mean Corpuscular Hemoglobin Concent 34.6 g/dl (32-36) 34.1 g/dl (32-36) Platelet Count 158 K/uL (130-400) Mean Platelet Volume 11.6 fL (7.4-10.4) 11.1 fL (7.4-10.4) Neutrophils (%) (Auto) 91.4 % Lymphocytes (%) (Auto) 3.7 % Monocytes (%) (Auto) 4.4 % Eosinophils (%) (Auto) 0.1 % Basophils (%) (Auto) 0.1 % Neutrophils # (Auto) 12.96 K/uL (1.4-6.5) Lymphocytes # (Auto) 0.53 K/uL (1.2-3.4) Monocytes # (Auto) 0.62 K/uL (0.11-0.59) Eosinophils # (Auto) 0.01 K/uL (0-0.5) Basophils # (Auto) 0.01 K/uL (0-0.2) Immature Granulocyte # (Auto) 0.04 K/uL (0.00-0.02) Venous Blood pH 7.39 (7.36-7.41) Venous Blood Partial Pressure CO2 61 mmHg (38.0-50.0) Venous Blood Partial Pressure O2 38 mmHg Venous Blood HCO3 36 mmol/L Venous Blood Oxygen Saturation 70.7 % Venous Blood Base Excess 9.1 mmol/L Total Bilirubin 0.9 mg/dl (0.2-1) Aspartate Amino Transf (AST/SGOT) 38 U/L (15-37) Alanine Aminotransferase (ALT/SGPT) 67 U/L (12-78) Alkaline Phosphatase 89 U/L (45-117) Total Creatine Kinase 44 U/L (39-308) Creatine Kinase MB 2.8 ng/ml (0.5-3.6) Creatine Kinase MB Ratio 6.4 (0-3.0) Troponin I < 0.015 ng/ml (0-0.045) Pro-B-Type Natriuretic Peptide 391 pg/ml (0-900) Total Protein 7.2 gm/dl (6.4-8.2) Albumin 3.4 gm/dl (3.4-5.0) Globulin 3.8 gm/dl (2.5-4.0) Albumin/Globulin Ratio 0.9 (0.9-2) Urine Color ORANGE Urine Appearance CLEAR (CLEAR) Urine pH 5.5 (4.5-7.5) Urine Specific [place] 1.028 (1.000-1.030) Urine Protein 1+ (NEG) Urine Glucose (UA) TRACE (NEG) Urine Ketones TRACE (NEG) Urine Occult Blood NEG (NEG) Urine Nitrite NEG (NEG) Urine Bilirubin NEG (NEG) Urine Urobilinogen NEG (NEG) Urine Leukocyte Esterase NEG (NEG) Urine WBC (Auto) 1-5 /hpf (0-5) Urine RBC (Auto) 0-4 /hpf (0-4) Urine Hyaline Casts (Auto) 5-10 /lpf (0-5) Urine Epithelial Cells (Auto) 10-20 /lpf (0-5) Urine Bacteria (Auto) NEG (NEG) Phosphorus Level 3.3 mg/dl (2.5-4.9) RDW Standard Deviation 43.1 fL (36.4-46.3) RDW Coefficient of Variation 11.8 % (11.5-14.5) Anion Gap 2.0 mmol/L (3-11) Est Creatinine Clear Calc Drug Dose 88.6 ml/min Estimated GFR () 102.9 Estimated GFR (Non- 88.8 BUN/Creatinine Ratio 31.3 (10-20) Calcium Level 8.4 mg/dl (8.5-10.1) Magnesium Level 2.6 mg/dl (1.8-2.4) Test 06/28/16 16:13 Bedside Glucose 201 mg/dl (70-99) Date/Time Source Procedure Growth Status 06/22/16 10:10 Blood Blood Culture - Final NO GROWTH Complete Last 24 Hours Test 06/27/16 20:19 06/28/16 05:13 06/28/16 07:48 06/28/16 11:26 Bedside Glucose 174 mg/dl 170 mg/dl 201 mg/dl White Blood Count 13.95 K/uL Red Blood Count 4.36 M/uL Hemoglobin 14.8 g/dL Hematocrit 43.4 % Mean Corpuscular Volume 99.5 fL Mean Corpuscular Hemoglobin 33.9 pg Mean Corpuscular Hemoglobin Concent 34.1 g/dl RDW Standard Deviation 43.1 fL RDW Coefficient of Variation 11.8 % Platelet Count 126 K/uL Mean Platelet Volume 11.1 fL Sodium Level 138 mmol/L Potassium Level 4.5 mmol/L Chloride Level 96 mmol/L Carbon Dioxide Level 40 mmol/L Anion Gap 2.0 mmol/L Blood Urea Nitrogen 29 mg/dl Creatinine 0.91 mg/dl Est Creatinine Clear Calc Drug Dose 88.6 ml/min Estimated GFR () 102.9 Estimated GFR (Non- 88.8 BUN/Creatinine Ratio 31.3 Random Glucose 220 mg/dl Calcium Level 8.4 mg/dl Magnesium Level 2.6 mg/dl Test 06/28/16 16:13 Bedside Glucose 201 mg/dl Assessment & Plan This is a 66 year old male with a PMH of severe COPD and chronic respiratory failure requiring continuous O2 use at home, tobacco use disorder, depression, ectopic atrial tachycardia, DM2, hypothyroidism, GERD presents with worsening shortness of breath Acute on Chronic Respiratory Failure 2/2 Acute COPD exacerbation: poss 2/2 sinus infection?-still symptomatic with diffuse wheezing on exam. Cont IV steroids, antibiotics, scheduled nebs, home inhalers and avoidance of tobacco. Pulm was consulted and agreed with HEATHER English (Advair order was placed and was dc'd). cont Symbicort and Performist. CT chest and sinuses ordered this am and Flonase added for suspected sinus infection. Hypertension: he doesn't carry a diagnosis as outpatient and is not on antihypertensives typically, however, he is elevated here poss 2/2 steroid use and stress from inability to smoke along with inability to breathe well. Will order PRN hydralazine PO >SBP 160, Lasix one dose was given this morning already so will hold off on any antihypertensives, and then will also put some clonazepam PRN to help with craving anxiety. Tobacco Use Disorder: still smokes about 1/2 PPD, currently has a nicotine patch on, counseled on tobacco cessation Ectopic Atrial Tachycardia: continue Verapamil DM2: HbA1c in May 2016 = 5.6%, stop glipizide and use ISS and Lantus with ongoing IV steroids for better control. Appreciate glycemic pharmacy recs. Hypothyroid: stable, continue Synthroid Leukocytosis: poss 2/2 steroid use vs infection DVT ppx Lovenox FULL CODE Dispo-uncertain at this time. Bernie Carey DO [facility] Hospitalist ADDENDUM: I received a call from the nurse who states that the patient has a pork bolus stuck in his throat that is causing him to regurgitate liquids and causing him discomfort. He has tried to wash it down but can't. Dr. Camp was notified from GI and will see the patient. Nursing staff is aware. DO [facility]: Pulm Current Inpatient Medications: Current Inpatient Medications Medications (Trade) Dose Ordered Sig/Fadi Route Start Time Stop Time Status Last Admin Dose Admin Enoxaparin Sodium (Lovenox Inj) 40 mg QAM SC 06/22/16 14:00 07/22/16 13:59 06/28/16 07:57 40 MG Acetaminophen (Tylenol Tab) 650 mg Q4H PRN PO 06/22/16 11:45 07/22/16 11:44 Ondansetron HCl (Zofran Inj) 4 mg Q6H PRN IV 06/22/16 11:45 07/22/16 11:44 06/28/16 09:59 4 MG Arformoterol Tartrate (Brovana 15MCG/ 2ML Neb Soln) 15 mcg BIDR INH 06/22/16 20:00 07/22/16 19:59 06/28/16 07:16 15 MCG Atorvastatin Calcium (Lipitor Tab) 40 mg DAILY PO 06/23/16 09:00 07/23/16 08:59 06/28/16 07:56 40 MG Budesonide/ Formoterol Fumarate (Symbicort 160/ 4.5 Inh) 2 puffs BID INH 06/22/16 21:00 07/22/16 20:59 06/28/16 07:54 2 PUFFS Bupropion HCl (Wellbutrin-Sr Tab) 100 mg BID PO 06/22/16 21:00 07/22/16 20:59 06/28/16 07:55 100 MG Formoterol Fumarate (Perforomist 20MCG/2ML Neb Soln) 20 mcg BIDR INH 06/22/16 20:00 07/22/16 19:59 06/24/16 19:00 20 MCG Gabapentin (Neurontin Cap) 300 mg QAM PO 06/23/16 09:00 07/23/16 08:59 06/28/16 07:56 300 MG Albuterol/ Ipratropium (Combivent Respimat Inh) 1 puffs Q6 INH 06/22/16 12:00 07/22/16 11:59 Future Hold 06/22/16 23:15 1 PUFFS Levothyroxine Sodium (Synthroid Tab) 50 mcg DAILYBB PO 06/23/16 06:30 07/23/16 06:29 06/28/16 06:03 50 MCG Nicotine (Nicoderm Cq 21MG Patch) 1 patch QAM TD 06/23/16 09:00 07/23/16 08:59 06/28/16 07:58 1 PATCH Verapamil HCl (Calan-Sr Tab) 120 mg DAILY PO 06/23/16 09:00 07/23/16 08:59 06/28/16 07:56 120 MG Pantoprazole Sodium (Protonix Tab) 40 mg DAILY PO 06/23/16 09:00 07/23/16 08:59 06/28/16 07:55 40 MG Miscellaneous (Remove Nicoderm Patch) 1 ea HS N/A 06/22/16 21:00 07/22/16 20:59 06/27/16 21:23 1 EA Levalbuterol (Xopenex 1.25MG/ 0.5ML Neb) 1.25 mg Q6R INH 06/22/16 15:00 07/22/16 14:59 Future hold 06/28/16 14:21 1.25 MG Levofloxacin 750 mg 750 mg DAILY@11 PO 06/23/16 11:00 06/29/16 10:59 06/28/16 10:36 750 MG Methylprednisolone Sodium Succinate/ Syringe (Solu-Medrol IV/ Syringe) 0.64 ml @ 1.5 mls/min Q8H IV 06/24/16 14:00 07/24/16 13:59 06/28/16 13:51 1.5 MLS/MIN Lisinopril (Zestril Tab) 10 mg QAM PO 06/25/16 09:00 07/25/16 08:59 06/28/16 07:54 10 MG Insulin Aspart (novoLOG ASPART) SLIDING SCALE If C... ACHS SC 06/26/16 21:00 07/26/16 20:59 06/28/16 12:08 17 UNITS Glucose (Glucose 40% Gel) 15-30 GRAMS 15 GRAMS... UD PRN PO 06/26/16 18:45 07/26/16 18:44 Glucose (Glucose Chew Tab) 4-8 Tablets 4 Tabl... UD PRN PO 5/16/17 18:45 07/26/16 18:44 Dextrose (Dextrose 50% 50ML Syringe) 25-50ML OF 50% DW IV FOR... UD PRN IV 06/26/16 18:45 07/26/16 18:44 Glucagon (Glucagon Inj) 1 mg UD PRN SQ 06/26/16 18:45 07/26/16 18:44 Miscellaneous Information (Consult Glycemic Management Pharmacy) 1 ea DAILY PRN N/A 06/26/16 19:09 07/26/16 19:08 Fluticasone Propionate (Flonase Nasal [place]) 1 sprays BID NA 06/27/16 09:00 07/27/16 08:59 06/28/16 07:58 1 SPRAYS Benzonatate (Tessalon Perles Cap) 100 mg TID PRN PO 06/27/16 14:00 07/27/16 13:59 Clonazepam (Klonopin Tab) 0.5 mg TID PRN PO 06/27/16 10:15 07/27/16 10:14 Hydralazine HCl (Apresoline Tab) 10 mg Q6H PRN PO 06/27/16 10:15 07/27/16 10:14 Insulin Glargine (Lantus Solostar Pen) DAILY SC 06/28/16 09:00 07/28/16 08:59 06/28/16 08:02 22 UNIT Insulin Glargine (Lantus Solostar Pen) HS ONCE SC 06/28/16 21:00 06/28/16 21:01
[2016-06-28] MEDS ORDERED: ONDANSETRON INJ 2 MG/ML 2 ML VIAL ONE (18:06)
[2016-06-28] MEDS ORDERED: SUCCINYLCHOLINE CHLORIDE 20 MG/ML 10 ML VIAL IV ONE (18:09)
[2016-06-28] MEDS ORDERED: PROPOFOL IV EMULSION 10 MG/ML 20 ML VIAL IV ONE (18:09)
[2016-06-28] MEDS ORDERED: LIDOCAINE HCL 2% 2 ML VIAL (20MG/ML) ONE (18:09)
--- NOTE | 2016-06-28 18:28 | GI REPORT ---
Procedure Date: 06/28/2016 5:53 PM Procedure: Upper GI endoscopy Indications: Foreign body in the esophagus Medicines: Monitored Anesthesia Care Complications: No immediate complications. Estimated Blood Loss: Estimated blood loss: none. Estimated blood loss was minimal. Procedure: Pre-Anesthesia Assessment: - Prior to the procedure, a History and Physical was performed, and patient medications and allergies were reviewed. The patient's tolerance of previous anesthesia was also reviewed. The risks and benefits of the procedure and the sedation options and risks were discussed with the patient. All questions were answered, and informed consent was obtained. Prior Anticoagulants: The patient has taken no previous anticoagulant or antiplatelet agents. ASA Grade Assessment: E - Emergency. After reviewing the risks and benefits, the patient was deemed in satisfactory condition to undergo the procedure. After obtaining informed consent, the endoscope was passed under direct vision. Throughout the procedure, the patient's blood pressure, pulse, and oxygen saturations were monitored continuously. The Scope was introduced through the mouth, and advanced to the antrum of the stomach. The upper GI endoscopy was accomplished without difficulty. The patient tolerated the procedure well. Findings: Food was found in the middle third of the esophagus. Food bolus was advanced with gentle push technique into the stomach. One moderate benign-appearing, intrinsic stenosis was found. This measured 1.2 cm (inner diameter) x 1 cm (in length) and was traversed. A TTS dilator was passed through the scope. Dilation with a 12-13.5-15 mm balloon (to a maximum balloon size of 15 mm) dilator was performed. The dilation site was examined and showed moderate improvement in luminal narrowing. Multiple plaques were found in the upper third of the esophagus. Cells for cytology were obtained by brushing. A medium amount of food (residue) was found in the entire examined stomach. Impression: - Food in the middle third of the esophagus. - Benign-appearing esophageal stenosis. Dilated. - Multiple plaques in the upper third of the esophagus. Cells for cytology obtained. - A medium amount of food (residue) in the stomach. Recommendation: - Return patient to [facility] for ongoing care. - Advance diet as tolerated. - Use Protonix (pantoprazole) 40 mg PO daily. Kirt Camp DO 06/28/2016 6:27:47 PM This report has been signed electronically. Note Initiated On: 06/28/2016 5:53 PM I attest to the content of the Intraoperative Record and orders documented therein, exceptions below
[2016-06-28] MEDS ORDERED: NovoLIN-R INSULIN PER UNIT CHARGE ONE (18:36)
[2016-06-28] MEDS ORDERED: LACTATED RINGER'S 1000ML 1,000 ML IV PRN (18:36)
[2016-06-28] MEDS ORDERED: INSULIN HUMAN REGULAR SC ONE (18:45)
[2016-06-28] MEDS ORDERED: ONDANSETRON INJ 2 MG/ML 2 ML VIAL IV PRN (18:45)
--- NOTE | 2016-06-28 19:08 | Anesthesiology Progress Note ---
Anesthesia Post Op Note Date & Time June 28, 2016 at 19:07 Vital Signs Pain Intensity: 0 Vital Signs Past 12 Hours Date Time Temp Pulse Resp B/P Pulse Ox O2 Delivery O2 Flow Rate FiO2 06/28/16 19:01 133/77 06/28/16 18:58 78 23 06/28/16 18:58 83 23 99 06/28/16 18:56 134/84 06/28/16 18:53 89 21 06/28/16 18:53 93 21 100 06/28/16 18:51 129/72 06/28/16 18:48 94 17 99 06/28/16 18:48 84 17 06/28/16 18:47 94 26 99 06/28/16 18:47 94 26 06/28/16 18:46 128/69 06/28/16 18:42 95 18 06/28/16 18:42 95 18 98 06/28/16 18:41 125/74 06/28/16 18:37 90 27 06/28/16 18:37 91 27 100 06/28/16 18:36 128/73 06/28/16 18:33 126/77 06/28/16 18:32 36.7 90 24 126/77 99 Mask 10 06/28/16 18:32 89 29 99 06/28/16 18:32 85 29 06/28/16 16:38 99 Nasal Cannula 4.0 06/28/16 15:43 36.5 75 18 155/84 98 Nasal Cannula 4.0 06/28/16 14:21 66 18 98 Nasal Cannula 4.0 06/28/16 09:02 69 172/80 74 176/83 84 135/72 06/28/16 08:01 36.5 76 20 184/93 99 4.0 06/28/16 08:00 99 Nasal Cannula 4.0 06/28/16 07:17 68 20 99 Nasal Cannula 4.0 Notes Mental Status: alert / awake / arousable, participated in evaluation Pt Amnestic to Procedure: Yes Nausea / Vomiting: adequately controlled Pain: adequately controlled Airway Patency, RR, SpO2: stable & adequate BP & HR: stable & adequate Hydration State: stable & adequate Anesthetic Complications: no major complications apparent Pt doing well. Back to baseline sat (high 90s on 4L NC). Breathing as labored as at baseline. Gave 10 units regular insulin SQ for glucose 228. Will continue to monitor.
[2016-06-28] MEDS ORDERED: INSULIN GLARGINE SOLOSTAR 100 UNITS/ML 3 ML PEN SC ONE (21:00)
[2016-06-29] VITALS (7 sets, daily range): BP systolic 129–188; BP diastolic 78–82; PULSE 67–88; TEMP 36.5–36.7; O2SAT 90–100
[2016-06-29] MEDS: LEVALBUTEROL 1.25MG/0.5ML NEB INH SCH ×3 (02:22→14:48)
[2016-06-29] MEDS: METHYLPREDNISOLONE IV 40 MG in SYRINGE 0 ML IV SCH ×2 (06:29→14:21)
[2016-06-29] MEDS: LEVOTHYROXINE 50 MCG TAB PO SCH (06:30)
[2016-06-29] MEDS: ARFORMOTEROL TART 15MCG/2ML VIAL INH SCH (07:58)
[2016-06-29] MEDS: FORMOTEROL FUMA NEBULIZER SOLN 20 MCG/2 ML VIAL INH SCH (07:58)
[2016-06-29] MEDS: VERAPAMIL HCL 120 MG TABCR PO SCH (08:25)
[2016-06-29] MEDS: PANTOprazole SOD 40 MG TAB PO SCH (08:25)
[2016-06-29] MEDS: LISINOPRIL 10 MG TAB PO SCH (08:25)
[2016-06-29] MEDS: GABAPENTIN 300 MG CAP PO SCH (08:25)
[2016-06-29] MEDS: ATORVASTATIN 40 MG TAB PO SCH (08:25)
[2016-06-29] MEDS: FLUTICASONE PROPIONATE NA SPR 16 GM BTL SCH ×2 (08:26→21:23)
[2016-06-29] MEDS: BUDESONIDE/FORMOTEROL FUMARATE 160/4.5 60 PUFFS/INHALER INH SCH ×2 (08:26→21:22)
[2016-06-29] MEDS: INSULIN ASPART 100 UNITS/ML 3 ML PEN SC SCH ×4 (08:31→21:31)
[2016-06-29] MEDS: NICOTINE 21 MG/24 HR TDSY TD SCH (08:37)
[2016-06-29] MEDS: ENOXAPARIN 40 MG/0.4 ML SYR SC SCH (08:38)
[2016-06-29] MEDS: INSULIN GLARGINE SOLOSTAR 100 UNITS/ML 3 ML PEN SC SCH ×2 (08:48→21:30)
--- NOTE | 2016-06-29 09:54 | Gastroenterology Progress Note ---
Progress Note Date of Service: June 29, 2016 Subjective Pt evaluation today including: conversation w/ patient, physical exam, chart review, lab review, review of studies, review of inpatient medication list Patient is status post EGD last evening for food bolus. He states that today he is having mild odynophagia in the mid-chest. Mild persistent dysphagia. Findings on EGD of moderate stenosis and possible denisse. Esophageal brushings with rare hyphae. Continues Protonix 40 mg daily. Denies any significant chest pain. Baseline shortness of breath. Review of Systems Constitutional: No chills, No fever Respiratory: + see HPI Cardiac: + see HPI Abdomen: + see HPI Psych: No problem reported Medications Current Inpatient Medications Medications (Trade) Dose Ordered Sig/Fadi Route Start Time Stop Time Status Last Admin Dose Admin Enoxaparin Sodium (Lovenox Inj) 40 mg QAM SC 06/22/16 14:00 07/22/16 13:59 06/29/16 08:38 40 MG Acetaminophen (Tylenol Tab) 650 mg Q4H PRN PO 06/22/16 11:45 07/22/16 11:44 Ondansetron HCl (Zofran Inj) 4 mg Q6H PRN IV 06/22/16 11:45 07/22/16 11:44 06/28/16 09:59 4 MG Arformoterol Tartrate (Brovana 15MCG/ 2ML Neb Soln) 15 mcg BIDR INH 06/22/16 20:00 07/22/16 19:59 06/29/16 07:58 15 MCG Atorvastatin Calcium (Lipitor Tab) 40 mg DAILY PO 06/23/16 09:00 07/23/16 08:59 06/29/16 08:25 40 MG Budesonide/ Formoterol Fumarate (Symbicort 160/ 4.5 Inh) 2 puffs BID INH 06/22/16 21:00 07/22/16 20:59 06/29/16 08:26 2 PUFFS Bupropion HCl (Wellbutrin-Sr Tab) 100 mg BID PO 06/22/16 21:00 07/22/16 20:59 06/28/16 21:14 100 MG Formoterol Fumarate (Perforomist 20MCG/2ML Neb Soln) 20 mcg BIDR INH 06/22/16 20:00 6/11/17 19:59 06/24/16 19:00 20 MCG Gabapentin (Neurontin Cap) 300 mg QAM PO 06/23/16 09:00 07/23/16 08:59 06/29/16 08:25 300 MG Albuterol/ Ipratropium (Combivent Respimat Inh) 1 puffs Q6 INH 06/22/16 12:00 07/22/16 11:59 Future Hold 06/22/16 23:15 1 PUFFS Levothyroxine Sodium (Synthroid Tab) 50 mcg DAILYBB PO 06/23/16 06:30 07/23/16 06:29 06/29/16 06:30 50 MCG Nicotine (Nicoderm Cq 21MG Patch) 1 patch QAM TD 06/23/16 09:00 07/23/16 08:59 06/29/16 08:37 1 PATCH Verapamil HCl (Calan-Sr Tab) 120 mg DAILY PO 06/23/16 09:00 07/23/16 08:59 06/29/16 08:25 120 MG Pantoprazole Sodium (Protonix Tab) 40 mg DAILY PO 06/23/16 09:00 07/23/16 08:59 06/29/16 08:25 40 MG Miscellaneous (Remove Nicoderm Patch) 1 ea HS N/A 06/22/16 21:00 07/22/16 20:59 06/28/16 21:26 1 EA Levalbuterol (Xopenex 1.25MG/ 0.5ML Neb) 1.25 mg Q6R INH 06/22/16 15:00 07/22/16 14:59 Future hold 06/28/16 14:21 1.25 MG Levofloxacin 750 mg 750 mg DAILY@11 PO 06/23/16 11:00 06/29/16 10:59 06/28/16 10:36 750 MG Methylprednisolone Sodium Succinate/ Syringe (Solu-Medrol IV/ Syringe) 0.64 ml @ 1.5 mls/min Q8H IV 06/24/16 14:00 07/24/16 13:59 06/29/16 06:29 1.5 MLS/MIN Lisinopril (Zestril Tab) 10 mg QAM PO 06/25/16 09:00 07/25/16 08:59 06/29/16 08:25 10 MG Insulin Aspart (novoLOG ASPART) SLIDING SCALE If C... ACHS SC 06/26/16 21:00 07/26/16 20:59 06/29/16 08:31 6 UNITS Glucose (Glucose 40% Gel) 15-30 GRAMS 15 GRAMS... UD PRN PO 06/26/16 18:45 07/26/16 18:44 Glucose (Glucose Chew Tab) 4-8 Tablets 4 Tabl... UD PRN PO 06/26/16 18:45 07/26/16 18:44 Dextrose (Dextrose 50% 50ML Syringe) 25-50ML OF 50% DW IV FOR... UD PRN IV 06/26/16 18:45 07/26/16 18:44 Glucagon (Glucagon Inj) 1 mg UD PRN SQ 06/26/16 18:45 07/26/16 18:44 Miscellaneous Information (Consult Glycemic Management Pharmacy) 1 ea DAILY PRN N/A 06/26/16 19:09 07/26/16 19:08 Fluticasone Propionate (Flonase Nasal [place]) 1 sprays BID NA 06/27/16 09:00 07/27/16 08:59 06/29/16 08:26 1 SPRAYS Benzonatate (Tessalon Perles Cap) 100 mg TID PRN PO 06/27/16 14:00 07/27/16 13:59 Clonazepam (Klonopin Tab) 0.5 mg TID PRN PO 06/27/16 10:15 07/27/16 10:14 Hydralazine HCl (Apresoline Tab) 10 mg Q6H PRN PO 06/27/16 10:15 07/27/16 10:14 Insulin Glargine (Lantus Solostar Pen) DAILY SC 06/28/16 09:00 07/28/16 08:59 06/29/16 08:48 22 UNIT Objective Vital Signs Date Time Temp Pulse Resp B/P Pulse Ox O2 Delivery O2 Flow Rate FiO2 06/29/16 07:58 68 18 98 Nasal Cannula 4.0 06/29/16 07:39 36.5 68 18 188/81 100 06/29/16 00:19 36.7 74 20 132/78 90 Room Air 06/29/16 00:00 Nasal Cannula 4.0 5/18/17 21:16 36.5 91 24 134/72 86 Nasal Cannula 4.0 18/17 21:15 36.5 86 20 123/45 97 Nasal Cannula 4.0 18/17 21:14 36.5 73 20 152/77 98 Nasal Cannula 4.0 18/17 20:00 36.3 76 18 137/78 90 Nasal Cannula 4.0 98 18/17 19:30 36.4 85 18 138/78 91 Nasal Cannula 4.0 18/17 19:17 77 22 518/17 19:17 76 22 96 18/17 19:16 139/75 18/17 19:12 79 22 97 18/17 19:12 78 22 18/17 19:11 137/76 18/17 19:09 36.6 18/17 19:07 89 24 18/17 19:07 90 24 97 18/17 19:06 134/78 18/17 19:02 93 29 18/17 19:02 92 29 97 18/17 19:01 133/77 18/17 18:58 78 23 518/17 18:58 83 23 99 18/17 18:56 134/84 18/17 18:53 89 21 18/17 18:53 93 21 100 18/17 18:51 129/72 518/17 18:48 94 17 99 18/17 18:48 84 17 18/17 18:47 94 26 99 518/17 18:47 94 26 518/17 18:46 128/69 518/17 18:42 95 18 5/18/17 18:42 95 18 98 518/17 18:41 125/74 518/17 18:37 90 27 518/17 18:37 91 27 100 518/17 18:36 128/73 518/17 18:33 126/77 518/17 18:32 36.7 90 24 126/77 99 Mask 10 518/17 18:32 89 29 99 518/17 18:32 85 29 518/17 16:38 99 Nasal Cannula 4.0 18/17 15:43 36.5 75 18 155/84 98 Nasal Cannula 4.0 06/28/16 14:21 66 18 98 Nasal Cannula 4.0 Physical Exam General Appearance: no apparent distress Eyes: EOMI ENT: hearing grossly normal Respiratory/Chest: + decreased breath sounds (diffusely) Cardiovascular: regular rate, rhythm, no murmur Abdomen: normal bowel sounds, non tender, soft Neurologic/Psych: alert, normal mood/affect, oriented x 3 Skin: warm/dry Laboratory Results Last 24 Hours Test 06/28/16 11:26 06/28/16 16:13 06/28/16 18:34 06/28/16 20:30 Bedside Glucose 201 mg/dl 201 mg/dl 228 mg/dl 221 mg/dl Test 06/29/16 07:30 Bedside Glucose 138 mg/dl Assessment and Plan Patient is a 66 year old male who presented for COPD exacerbation with improving symptoms, who developed acute dysphagia from food impaction with findings of esophageal stenosis s/p esophageal dilation as well as white, mucosal plaques with rare yeast on brushing. 1. As patient is at high risk for denisse esophagitis with corticosteroid use and rare hyphae on brushing will start Nystatin swish/swallow 5 ml QID x 3 weeks in lieu of Diflucan due to concurrent Lipitor use. 2. Continue Protonix 40 mg daily. 3. Diet as tolerated. 4. Repeat EGD with dilation in the near future if symptoms of dysphagia progress as moderate stenosis was noted. Agree with VIVIEN Gardiner as above Abd: Soft, NT, ND, +BS Continue current therapy Followup in our office if symptoms persist.
[2016-06-29] MEDS: BuPROPion SR 100 MG TABCR PO SCH ×2 (10:06→21:25)
--- NOTE | 2016-06-29 11:39 | Pharmacy Progress Note ---
Glycemic Control: Progress Nt Date of Service June 29, 2016. Scope Glycemic Pharmacist consulted for glycemic control and to write orders per [facility] inpatient glycemic control protocol. Objective Accuchecks BSG (last 24hrs): Test 06/28/16 16:13 06/28/16 18:34 06/28/16 20:30 06/29/16 07:30 Bedside Glucose 201 mg/dl (70-99) 228 mg/dl (70-99) 221 mg/dl (70-99) 138 mg/dl (70-99) Test 06/29/16 11:16 Bedside Glucose 205 mg/dl (70-99) Recent Pertinent Medications Outpatient Anti-diabetic Regimen: * Glipizide 2.5 mg po daily * A1c = 5.6 % 05/2016 The patient is currently receiving: * Basal insulin: Lantus 22 units qAM with 10-20 units qPM per BSG * Correctional Insulin: Novolog Correction per scale ACHS Goal Range: Low 100 mg/dL - High 140 mg/dL Correction Factor: 20 mg/dL/unit * Prandial insulin: Per carb ratio of 1 unit per 6 grams CHO consumed * Oral Agents: On hold Risk Factors for Insulin Resistance: * Steroids: Methylprednisolone 40 mg IV q8 hours * Infection: completed 7 day course of levofloxacin for COPD exacerbation * Diet: T2DM/AHA Assessment & Plan ASSESSMENT: 06/28/16 * Good outpatient control on orals alone, currently with steroid-induced hyperglycemia. No change to steroids ordered, yet. * BSG's ranging 109-232 mg/dL over the last 24 hours. Total of 77 units of insulin administered yesterday. * Do not anticipate need for basal insulin long-term. But will increase x1 this AM for fasting BSG of 170 mg/dL. Will utilize evening Lantus at lower dose , based on BSG. * No change to Novolog needed for now * Patient will require significant change to regimen if/when steroids tapered 06/29/16 * Patient s/p EGD yesterday for food bolus (pork). Received 10 units regular insulin SC in OR - depending on dinner CHO, may have not been enough which contributed to HS hyperglycemia. * No change to steroids ordered today * AM fasting BSG good at 138 mg/dL after receiving a total of 42 units of Lantus yesterday. OK to schedule BID (weight based but decreased dose based on BSG's and stress level) * Most post-prandial BSG's are elevated. Will tighten CHO ratio slightly. PLAN FOR INPATIENT GLYCEMIC CONTROL: * Continue to hold glipizide * Basal insulin with LANTUS 22 units SQ BID * 15 units for BSG 100-119 mg/dL * 8 units for BSG < 100 mg/dL * Correctional Insulin with NOVOLOG per scale ACHS or Q6hrs while NPO * Goal Range: Low 110 mg/dL - High 140 mg/dL * Correction Factor: 20 mg/dL/unit * Nutritional / Prandial insulin per carb ratio of 1 unit per 5 grams CHO consumed * Please note that the plan above was derived based on current level of insulin resistance and hospital stress. These recommendations are appropriate for inpatient admission only. Plan of care upon discharge will need to be reassessed to avoid potential outpatient hypo/hyperglycemia. Thank you.
[2016-06-29] MEDS: NYSTATIN SUSP 500,000 U/5 ML UDC PO SCH ×3 (12:32→21:24)
--- NOTE | 2016-06-29 14:31 | Pulmonology Progress Note ---
Pulmonary Progress Note Date of Service June 29, 2016. Attending Dr. Stoddard Subjective Patient was sleep when I arrived and notes improvement in his SOB today Objective Patietn showing no signs of respiratory compromise at this time VS: Stable on 4L RESP: decreased BS bilaterally CARD: S1 S2 unable to asculated for M/R/G Assessment & Plan 66 y/o male with very sever COPD and admitted for acute on chronic respiratory compromise: 1) COPD: a) CT of the Thorax 06/27/16 compared to 01/18/2015 Emphysema Stable scare density in the RUL ( will need two year f/u: 01/2017) Bilateral nephrolithiasis RLL scar vs. nodule 8mm: high risk patient requires 6-12 month f/u if stable then 18-24 month follow-up b) Nocturnal Oximetry study to evaluate for BiPAP benefit Maximum duration of SaO2 < 89% 350 sec (> 5mins) Now needs arterial PaCO2 > 52 while awake (VB.39/61 corrected 7.43/50 ) requires ABG to determine if he meets criteria c) Possible bronchoscopy as an out-patient for evaluation of recurrent COPD flairs d) Rhinitis/Sinusitis: continue Flonase but advance to two puff each nostril BID CT and obtain out-patient ENT evaluation CT sinus (06/27/16) Moderate mucosal thickening of the left maxillary sinus Soft tissue occlusion of the left ostiomeatal unite e) Diuresis: -2.1L negative at this time. Continue diureses f) Vertigo: lets obtain ortho-static BP (lying, sitting, standing) Diastolic Bp drop of >10mmHg from 96 to 75 Per the [place] [employer] and the [place] [employer] the patient has orthostatic hypotension. I suggest we ask cardiology or neurology for further guidance. g) Medications D/C Brovana and Perforomist as they are LABAs and already in Symbicort and start Spiriva Change Solu Medrol to Prednisone and if stable can be d/c 2) Smoking: Patient is still not ready to d/c smoking. This also makes him ineligible for a lung transplant, this has been explained to him. 3) MIRANDA: Hx of MIRANDA still waiting on previous study but this is not an emergent work-up 4) Dysphagia: EGD (06/28/2016) Food bolus obstruction the middle third of the esophagus and advanced Dilation of benign appearing intrinsic stricture Upper esophageal plagues underwent cytology brushing Rare Hyphae seen on cytologic brushing and patient start on Nystatin Data Medications: Current Inpatient Medications Medications (Trade) Dose Ordered Sig/Fadi Route Start Time Stop Time Status Last Admin Dose Admin Enoxaparin Sodium (Lovenox Inj) 40 mg QAM SC 06/22/16 14:00 07/22/16 13:59 06/29/16 08:38 40 MG Acetaminophen (Tylenol Tab) 650 mg Q4H PRN PO 06/22/16 11:45 07/22/16 11:44 Ondansetron HCl (Zofran Inj) 4 mg Q6H PRN IV 06/22/16 11:45 07/22/16 11:44 06/28/16 09:59 4 MG Arformoterol Tartrate (Brovana 15MCG/ 2ML Neb Soln) 15 mcg BIDR INH 06/22/16 20:00 07/22/16 19:59 06/29/16 07:58 15 MCG Atorvastatin Calcium (Lipitor Tab) 40 mg DAILY PO 06/23/16 09:00 07/23/16 08:59 06/29/16 08:25 40 MG Budesonide/ Formoterol Fumarate (Symbicort 160/ 4.5 Inh) 2 puffs BID INH 06/22/16 21:00 07/22/16 20:59 06/29/16 08:26 2 PUFFS Bupropion HCl (Wellbutrin-Sr Tab) 100 mg BID PO 06/22/16 21:00 07/22/16 20:59 06/29/16 10:06 100 MG Formoterol Fumarate (Perforomist 20MCG/2ML Neb Soln) 20 mcg BIDR INH 06/22/16 20:00 07/22/16 19:59 06/24/16 19:00 20 MCG Gabapentin (Neurontin Cap) 300 mg QAM PO 06/23/16 09:00 07/23/16 08:59 06/29/16 08:25 300 MG Albuterol/ Ipratropium (Combivent Respimat Inh) 1 puffs Q6 INH 06/22/16 12:00 07/22/16 11:59 Future Hold 06/22/16 23:15 1 PUFFS Levothyroxine Sodium (Synthroid Tab) 50 mcg DAILYBB PO 06/23/16 06:30 07/23/16 06:29 06/29/16 06:30 50 MCG Nicotine (Nicoderm Cq 21MG Patch) 1 patch QAM TD 06/23/16 09:00 07/23/16 08:59 06/29/16 08:37 1 PATCH Verapamil HCl (Calan-Sr Tab) 120 mg DAILY PO 06/23/16 09:00 07/23/16 08:59 06/29/16 08:25 120 MG Pantoprazole Sodium (Protonix Tab) 40 mg DAILY PO 06/23/16 09:00 07/23/16 08:59 06/29/16 08:25 40 MG Miscellaneous (Remove Nicoderm Patch) 1 ea HS N/A 06/22/16 21:00 07/22/16 20:59 06/28/16 21:26 1 EA Levalbuterol 1.25 mg 1.25 mg Q6R INH 06/22/16 15:00 07/22/16 14:59 Future hold 06/28/16 14:21 1.25 MG Methylprednisolone Sodium Succinate/ Syringe (Solu-Medrol IV/ Syringe) 0.64 ml @ 1.5 mls/min Q8H IV 06/24/16 14:00 07/24/16 13:59 06/29/16 06:29 1.5 MLS/MIN Lisinopril (Zestril Tab) 10 mg QAM PO 06/25/16 09:00 07/25/16 08:59 06/29/16 08:25 10 MG Insulin Aspart (novoLOG ASPART) SLIDING SCALE If C... ACHS SC 06/26/16 21:00 07/26/16 20:59 06/29/16 12:35 16 UNITS Glucose (Glucose 40% Gel) 15-30 GRAMS 15 GRAMS... UD PRN PO 06/26/16 18:45 07/26/16 18:44 Glucose (Glucose Chew Tab) 4-8 Tablets 4 Tabl... UD PRN PO 06/26/16 18:45 07/26/16 18:44 Dextrose (Dextrose 50% 50ML Syringe) 25-50ML OF 50% DW IV FOR... UD PRN IV 06/26/16 18:45 07/26/16 18:44 Glucagon (Glucagon Inj) 1 mg UD PRN SQ 06/26/16 18:45 07/26/16 18:44 Miscellaneous Information (Consult Glycemic Management Pharmacy) 1 ea DAILY PRN N/A 06/26/16 19:09 07/26/16 19:08 Fluticasone Propionate (Flonase Nasal [place]) 1 sprays BID NA 06/27/16 09:00 07/27/16 08:59 06/29/16 08:26 1 SPRAYS Benzonatate (Tessalon Perles Cap) 100 mg TID PRN PO 06/27/16 14:00 07/27/16 13:59 Clonazepam (Klonopin Tab) 0.5 mg TID PRN PO 06/27/16 10:15 07/27/16 10:14 Hydralazine HCl (Apresoline Tab) 10 mg Q6H PRN PO 06/27/16 10:15 07/27/16 10:14 Nystatin (Mycostatin Susp) 5 ml QID PO 06/29/16 13:00 07/09/16 12:59 06/29/16 12:32 5 ML Insulin Glargine (Lantus Solostar Pen) BID SC 06/29/16 21:00 07/29/16 20:59 I & O: 24-Hour Column 06/29/16 07:59 Intake Total 1375 ml Output Total 1150 ml Balance 225 ml Vital Signs: Date Time Temp Pulse Resp B/P Pulse Ox O2 Delivery O2 Flow Rate FiO2 06/29/16 10:11 67 20 146/78 97 Nasal Cannula 4.0 06/29/16 09:58 98 Nasal Cannula 4.0 06/29/16 07:58 68 18 98 Nasal Cannula 4.0 06/29/16 07:39 36.5 68 18 188/81 100 06/29/16 00:19 36.7 74 20 132/78 90 Room Air 06/29/16 00:00 Nasal Cannula 4.0 06/28/16 21:16 36.5 91 24 134/72 86 Nasal Cannula 4.0 06/28/16 21:15 36.5 86 20 123/45 97 Nasal Cannula 4.0 06/28/16 21:14 36.5 73 20 152/77 98 Nasal Cannula 4.0 5/18/17 20:00 36.3 76 18 137/78 90 Nasal Cannula 4.0 98 18/17 19:30 36.4 85 18 138/78 91 Nasal Cannula 4.0 18/17 19:17 77 22 18/17 19:17 76 22 96 18/17 19:16 139/75 18/17 19:12 79 22 97 18/17 19:12 78 22 18/17 19:11 137/76 18/17 19:09 36.6 18/17 19:07 89 24 18/17 19:07 90 24 97 18/17 19:06 134/78 1817 19:02 93 29 18/17 19:02 92 29 97 18/17 19:01 133/77 18/17 18:58 78 23 18/17 18:58 83 23 99 18/17 18:56 134/84 18/17 18:53 89 21 18/17 18:53 93 21 100 18/17 18:51 129/72 18/17 18:48 94 17 99 18/17 18:48 84 17 06/28/17 18:47 94 26 99 18/17 18:47 94 26 18/17 18:46 128/69 18/17 18:42 95 18 18/17 18:42 95 18 98 18/17 18:41 125/74 18/17 18:37 90 27 18/17 18:37 91 27 100 18/17 18:36 128/73 18/17 18:33 126/77 18/17 18:32 36.7 90 24 126/77 99 Mask 10 18/17 18:32 89 29 99 18/17 18:32 85 29 18/17 16:38 99 Nasal Cannula 4.0 18/17 15:43 36.5 75 18 155/84 98 Nasal Cannula 4.0 18/17 14:21 66 18 98 Nasal Cannula 4.0 Laboratory Results: Last 24 Hours Test 18/17 16:13 18/17 18:34 18/17 20:30 5/19/17 07:30 Bedside Glucose 201 mg/dl 228 mg/dl 221 mg/dl 138 mg/dl Test 06/29/16 11:16 Bedside Glucose 205 mg/dl
[2016-06-29] MEDS ORDERED: LEVALBUTEROL/IPRATROPIUM NEB INH PRN (18:00)
--- NOTE | 2016-06-29 18:05 | Progress Note ---
Medicine Progress Note Date & Time of Visit: June 29, 2016 at 1300. Subjective This is a 66 year old male with a PMH of severe COPD and chronic respiratory failure requiring continuous O2 use at home, tobacco use disorder, depression, ectopic atrial tachycardia, DM2, hypothyroidism, GERD presents with worsening shortness of breath -feels better today -appears breathing is at baseline -s/p food bolus last night and required OR for removal -plaque found with washings consistent with denisse and nystatin swallow was started -EGD dilation of incidental stenosis was found -pt denies pain and is tolerating PO Objective Last 8 Hrs Date Time Temp Pulse Resp B/P Pulse Ox O2 Delivery O2 Flow Rate FiO2 06/29/16 14:51 36.7 88 18 129/79 97 4.0 06/29/16 10:11 67 20 146/78 97 Nasal Cannula 4.0 06/29/16 09:58 98 Nasal Cannula 4.0 Physical Exam: GEN: WNWD, no conversational dyspnea, alert and appropriate. HEENT: NC/AT, pupils are equal, normal sclerae/conjunctivae, MMM CARDIO: reg rate, S1/2 heard without m/g/r LUNGS: slight wheezing heard in RLL, otherwise clear and moving air throughout other stevens, still slightly diminished. ABD: soft, non-tender, non-distended EXTREMITY: edema has resolved bilaterally, extremities are warm and well- perfused NEURO: CN 2-12 grossly intact, sensation intact throughout MUSC: 5/5 strength throughout, no focal deficits SKIN: warm and dry Laboratory Results: 06/28/16 05:13 06/28/16 05:13 Test 06/22/16 10:10 06/22/16 15:00 06/23/16 07:14 06/28/16 05:13 Immature Granulocyte % (Auto) 0.3 % White Blood Count 14.17 K/uL (4.8-10.8) Red Blood Count 4.56 M/uL (4.7-6.1) 4.36 M/uL (4.7-6.1) Hemoglobin 15.8 g/dL (14.0-18.0) Hematocrit 45.7 % (42-52) Mean Corpuscular Volume 100.2 fL (80-100) 99.5 fL (80-100) Mean Corpuscular Hemoglobin 34.6 pg (25-34) 33.9 pg (25-34) Mean Corpuscular Hemoglobin Concent 34.6 g/dl (32-36) 34.1 g/dl (32-36) Platelet Count 158 K/uL (130-400) Mean Platelet Volume 11.6 fL (7.4-10.4) 11.1 fL (7.4-10.4) Neutrophils (%) (Auto) 91.4 % Lymphocytes (%) (Auto) 3.7 % Monocytes (%) (Auto) 4.4 % Eosinophils (%) (Auto) 0.1 % Basophils (%) (Auto) 0.1 % Neutrophils # (Auto) 12.96 K/uL (1.4-6.5) Lymphocytes # (Auto) 0.53 K/uL (1.2-3.4) Monocytes # (Auto) 0.62 K/uL (0.11-0.59) Eosinophils # (Auto) 0.01 K/uL (0-0.5) Basophils # (Auto) 0.01 K/uL (0-0.2) Immature Granulocyte # (Auto) 0.04 K/uL (0.00-0.02) Venous Blood pH 7.39 (7.36-7.41) Venous Blood Partial Pressure CO2 61 mmHg (38.0-50.0) Venous Blood Partial Pressure O2 38 mmHg Venous Blood HCO3 36 mmol/L Venous Blood Oxygen Saturation 70.7 % Venous Blood Base Excess 9.1 mmol/L Total Bilirubin 0.9 mg/dl (0.2-1) Aspartate Amino Transf (AST/SGOT) 38 U/L (15-37) Alanine Aminotransferase (ALT/SGPT) 67 U/L (12-78) Alkaline Phosphatase 89 U/L (45-117) Total Creatine Kinase 44 U/L (39-308) Creatine Kinase MB 2.8 ng/ml (0.5-3.6) Creatine Kinase MB Ratio 6.4 (0-3.0) Troponin I < 0.015 ng/ml (0-0.045) Pro-B-Type Natriuretic Peptide 391 pg/ml (0-900) Total Protein 7.2 gm/dl (6.4-8.2) Albumin 3.4 gm/dl (3.4-5.0) Globulin 3.8 gm/dl (2.5-4.0) Albumin/Globulin Ratio 0.9 (0.9-2) Urine Color ORANGE Urine Appearance CLEAR (CLEAR) Urine pH 5.5 (4.5-7.5) Urine Specific [place] 1.028 (1.000-1.030) Urine Protein 1+ (NEG) Urine Glucose (UA) TRACE (NEG) Urine Ketones TRACE (NEG) Urine Occult Blood NEG (NEG) Urine Nitrite NEG (NEG) Urine Bilirubin NEG (NEG) Urine Urobilinogen NEG (NEG) Urine Leukocyte Esterase NEG (NEG) Urine WBC (Auto) 1-5 /hpf (0-5) Urine RBC (Auto) 0-4 /hpf (0-4) Urine Hyaline Casts (Auto) 5-10 /lpf (0-5) Urine Epithelial Cells (Auto) 10-20 /lpf (0-5) Urine Bacteria (Auto) NEG (NEG) Phosphorus Level 3.3 mg/dl (2.5-4.9) RDW Standard Deviation 43.1 fL (36.4-46.3) RDW Coefficient of Variation 11.8 % (11.5-14.5) Anion Gap 2.0 mmol/L (3-11) Est Creatinine Clear Calc Drug Dose 88.6 ml/min Estimated GFR () 102.9 Estimated GFR (Non- 88.8 BUN/Creatinine Ratio 31.3 (10-20) Calcium Level 8.4 mg/dl (8.5-10.1) Magnesium Level 2.6 mg/dl (1.8-2.4) Test 06/29/16 16:06 Bedside Glucose 195 mg/dl (70-99) Date/Time Source Procedure Growth Status 06/22/16 10:10 Blood Blood Culture - Final NO GROWTH Complete 06/28/16 18:00 Throat Fungal Smear - Final Resulted 06/28/16 18:00 Throat Fungal Culture - Preliminary NO YEAST OR FUNGUS ISOLATED - REPORT ... Resulted Last 24 Hours Test 06/28/16 18:34 06/28/16 20:30 06/29/16 07:30 06/29/16 11:16 Bedside Glucose 228 mg/dl 221 mg/dl 138 mg/dl 205 mg/dl Test 06/29/16 16:06 Bedside Glucose 195 mg/dl Date/Time Source Procedure Growth Status 06/28/16 18:00 Throat Fungal Smear - Final Resulted 06/28/16 18:00 Throat Fungal Culture - Preliminary NO YEAST OR FUNGUS ISOLATED - REPORT ... Resulted Assessment & Plan This is a 66 year old male with a PMH of severe COPD and chronic respiratory failure requiring continuous O2 use at home, tobacco use disorder, depression, ectopic atrial tachycardia, DM2, hypothyroidism, GERD presents with worsening shortness of breath Acute on Chronic Respiratory Failure 2/2 Acute COPD exacerbation: poss 2/2 sinus infection vs denisse esophagitis found incidentally on EGD performed yesterday -still with some SOB and slight wheezing on exam but moving air better. Known FEV1 of 19% on outpatient PFTs. Per pulm, transition IV steroids to PO Prednisone with likely dc in am once stable for 24 hours. Cont Symbicort, add spiriva and flonase, and stop Brovana and Performist. Dc'd Combivent, Started Spiriva and changed nebs to PRN. Strongly recommended quitting smoking. Will need both f/u with pulm and GI as outpatient. Cont Nystatin for denisse esophagitis Dysphagia to solids: food bolus removal in OR last night with findings of esophageal stenosis s/p dilation. Nystatin was started in lieu of fluconazole in setting of concurrent statin use. Repeat EGD as outpatient in a few weeks to ensure resolution of yeast as this is likely cause of recurrent COPD flares. Denisse esophagitis: as above. Hypertension: Cont verapamil and lisinopril (started here) with increase dose to 20mg daily and cont prn hydralazine. BP is elevated here poss 2/2 steroid use and stress from inability to smoke along with inability to breathe well. Will order PRN hydralazine PO >SBP 160. Cont clonazepam PRN to help with craving anxiety. Tobacco Use Disorder: still smokes about 1/2 PPD, currently has a nicotine patch on, counseled on tobacco cessation, benzos prn Ectopic Atrial Tachycardia: continue Verapamil DM2: HbA1c in May 2016 = 5.6%, stop glipizide and use ISS and Lantus with ongoing IV steroids for better control. Appreciate glycemic pharmacy recs. Hypothyroid: stable, continue Synthroid Leukocytosis: poss 2/2 steroid use vs infection DVT ppx Lovenox FULL CODE Dispo-to home in am Bernie Carey DO [facility] Hospitalist ADDENDUM: I received a call from the nurse who states that the patient has a pork bolus stuck in his throat that is causing him to regurgitate liquids and causing him discomfort. He has tried to wash it down but can't. Dr. Camp was notified from GI and will see the patient. Nursing staff is aware. DO [facility]: [place] Current Inpatient Medications: Current Inpatient Medications Medications (Trade) Dose Ordered Sig/Fadi Route Start Time Stop Time Status Last Admin Dose Admin Enoxaparin Sodium (Lovenox Inj) 40 mg QAM SC 06/22/16 14:00 07/22/16 13:59 06/29/16 08:38 40 MG Acetaminophen (Tylenol Tab) 650 mg Q4H PRN PO 06/22/16 11:45 07/22/16 11:44 Ondansetron HCl (Zofran Inj) 4 mg Q6H PRN IV 06/22/16 11:45 07/22/16 11:44 06/28/16 09:59 4 MG Arformoterol Tartrate (Brovana 15MCG/ 2ML Neb Soln) 15 mcg BIDR INH 06/22/16 20:00 07/22/16 19:59 06/29/16 07:58 15 MCG Atorvastatin Calcium (Lipitor Tab) 40 mg DAILY PO 06/23/16 09:00 07/23/16 08:59 06/29/16 08:25 40 MG Budesonide/ Formoterol Fumarate (Symbicort 160/ 4.5 Inh) 2 puffs BID INH 06/22/16 21:00 07/22/16 20:59 06/29/16 08:26 2 PUFFS Bupropion HCl (Wellbutrin-Sr Tab) 100 mg BID PO 06/22/16 21:00 07/22/16 20:59 06/29/16 10:06 100 MG Gabapentin (Neurontin Cap) 300 mg QAM PO 06/23/16 09:00 07/23/16 08:59 06/29/16 08:25 300 MG Albuterol/ Ipratropium (Combivent Respimat Inh) 1 puffs Q6 INH 06/22/16 12:00 07/22/16 11:59 Future Hold 06/22/16 23:15 1 PUFFS Levothyroxine Sodium (Synthroid Tab) 50 mcg DAILYBB PO 06/23/16 06:30 07/23/16 06:29 5/19/17 06:30 50 MCG Nicotine (Nicoderm Cq 21MG Patch) 1 patch QAM TD 06/23/16 09:00 07/23/16 08:59 06/29/16 08:37 1 PATCH Verapamil HCl (Calan-Sr Tab) 120 mg DAILY PO 06/23/16 09:00 07/23/16 08:59 06/29/16 08:25 120 MG Pantoprazole Sodium (Protonix Tab) 40 mg DAILY PO 06/23/16 09:00 07/23/16 08:59 06/29/16 08:25 40 MG Miscellaneous (Remove Nicoderm Patch) 1 ea HS N/A 06/22/16 21:00 07/22/16 20:59 06/28/16 21:26 1 EA Levalbuterol 1.25 mg 1.25 mg Q6R INH 06/22/16 15:00 07/22/16 14:59 Future hold 06/28/16 14:21 1.25 MG Methylprednisolone Sodium Succinate/ Syringe (Solu-Medrol IV/ Syringe) 0.64 ml @ 1.5 mls/min Q8H IV 06/24/16 14:00 07/31/16 13:59 06/29/16 14:21 1.5 MLS/MIN Lisinopril (Zestril Tab) 10 mg QAM PO 06/25/16 09:00 07/25/16 08:59 06/29/16 08:25 10 MG Insulin Aspart (novoLOG ASPART) SLIDING SCALE If C... ACHS SC 06/26/16 21:00 07/26/16 20:59 06/29/16 12:35 16 UNITS Glucose (Glucose 40% Gel) 15-30 GRAMS 15 GRAMS... UD PRN PO 06/26/16 18:45 07/26/16 18:44 Glucose (Glucose Chew Tab) 4-8 Tablets 4 Tabl... UD PRN PO 06/26/16 18:45 07/26/16 18:44 Dextrose (Dextrose 50% 50ML Syringe) 25-50ML OF 50% DW IV FOR... UD PRN IV 06/26/16 18:45 07/26/16 18:44 Glucagon (Glucagon Inj) 1 mg UD PRN SQ 06/26/16 18:45 07/26/16 18:44 Miscellaneous Information (Consult Glycemic Management Pharmacy) 1 ea DAILY PRN N/A 06/26/16 19:09 07/26/16 19:08 Benzonatate (Tessalon Perles Cap) 100 mg TID PRN PO 06/27/16 14:00 07/27/16 13:59 Clonazepam (Klonopin Tab) 0.5 mg TID PRN PO 06/27/16 10:15 07/27/16 10:14 Hydralazine HCl (Apresoline Tab) 10 mg Q6H PRN PO 06/27/16 10:15 07/27/16 10:14 Nystatin (Mycostatin Susp) 5 ml QID PO 06/29/16 13:00 07/09/16 12:59 06/29/16 16:15 5 ML Insulin Glargine (Lantus Solostar Pen) BID SC 06/29/16 21:00 07/29/16 20:59 Fluticasone Propionate (Flonase Nasal [place]) 2 sprays BID NA 06/29/16 21:00 07/29/16 20:59
[2016-06-29] MEDS ORDERED: IPRATROPIUM BROMIDE NEB SOLN 0.02% 2.5 ML VIAL INH PRN (18:15)
[2016-06-29] MEDS ORDERED: LEVALBUTEROL 1.25MG/0.5ML NEB INH PRN (18:15)
[2016-06-30] MEDS: LEVOTHYROXINE 50 MCG TAB PO SCH (06:00)
[2016-06-30 07:53] VITALS: BP_SYST 170; BP_SYST 172; BP_DIAS 83; BP_DIAS 84; PULSE 70; TEMP 36.5; O2SAT 98
[2016-06-30] MEDS: INSULIN ASPART 100 UNITS/ML 3 ML PEN SC SCH ×2 (08:24→11:00)
[2016-06-30] MEDS: INSULIN GLARGINE SOLOSTAR 100 UNITS/ML 3 ML PEN SC SCH (08:25)
[2016-06-30] MEDS: BUDESONIDE/FORMOTEROL FUMARATE 160/4.5 60 PUFFS/INHALER INH SCH (08:36)
[2016-06-30] MEDS: FLUTICASONE PROPIONATE NA SPR 16 GM BTL SCH (08:39)
[2016-06-30] MEDS: ENOXAPARIN 40 MG/0.4 ML SYR SC SCH (08:43)
[2016-06-30] MEDS: NICOTINE 21 MG/24 HR TDSY TD SCH (08:49)
[2016-06-30] MEDS: VERAPAMIL HCL 120 MG TABCR PO SCH (08:59)
[2016-06-30] MEDS: ATORVASTATIN 40 MG TAB PO SCH (08:59)
[2016-06-30] MEDS ORDERED: TIOTROPIUM BROMIDE 5 PUFF/90 MCG INH INH SCH (09:00)
[2016-06-30] MEDS: GABAPENTIN 300 MG CAP PO SCH (09:00)
[2016-06-30] MEDS: PANTOprazole SOD 40 MG TAB PO SCH (09:00)
[2016-06-30] MEDS ORDERED: LISINOPRIL 10 MG TAB PO SCH (09:00)
[2016-06-30] MEDS: BuPROPion SR 100 MG TABCR PO SCH (09:01)
[2016-06-30] MEDS: NYSTATIN SUSP 500,000 U/5 ML UDC PO SCH ×2 (09:07→13:05)
[2016-06-30 09:18] VITALS: O2SAT 98
[2016-06-30] MEDS ORDERED: Nicotine TD ×2 (09:19→09:55)
[2016-06-30] MEDS ORDERED: SPRIN INH ×2 (09:19→09:55)
[2016-06-30] MEDS ORDERED: FLNIN (09:19)
[2016-06-30] MEDS ORDERED: NYSS5 PO (09:19)
[2016-06-30] MEDS ORDERED: LISI20TA3 PO (09:19)
[2016-06-30] MEDS ORDERED: PRD20 PO (09:25)
--- NOTE | 2016-06-30 09:37 | Discharge Instructions ---
Discharge Instructions Date of Service June 30, 2016. Admission Reason for Admission: Copd Exacerbation Discharge Discharge Diagnosis / Problem: COPD exacerbation 2/2 esophageal candidiasis Discharge Goals Goal(s): Prevent Disease Progression Activity Recommendations Activity Limitations: per Instructions/Follow-up section . Instructions / Follow-Up Instructions / Follow-Up Please take all medications as instructed. Please note multiple changes in your inhaler therapy. You will need an outpatient follow-up with your lung doctor within one week of discharge from the hospital. You will need monitoring of lung function and progress with multiple changes to your inhaler therapy. Additionally, lung doctor may consider bronchoscopy in setting of recurrent COPD flares. You will need a repeat CT scan in 6 months for tracking of a lung nodule and an area of scarring that was seen on CT scan of the chest. This can be coordinated through your PCP office. You will need a close follow-up with your primary care physician (PCP) within one week of discharge. Things that need follow-up include deciding if nightly BIPAP or CPAP would be beneficial for you, orchestrating repeat EGD with outpatient referral to [facility] for repeat upper endoscopy in 6 weeks. This will be to re-evaluate your esophageal candidal plaques and ensure they have resolved on the Nystatin therapy. It is possible that your recurrent COPD flares (and hospitalizations) may be caused from this infection. You will need monitoring of your blood pressure with increased Lisinopril in the hospital to 20mg once daily. You will also need some non-fasting bloodwork in two weeks to ensure your kidney function and electrolytes are fine on the higher dose. A script was provided for you to get this labwork. Someone will contact you on Saturday with the date/time of your follow-up with PCP. It is STRONGLY recommended that you quit smoking. Studies have shown this can extend your life. You have been provided with nicotine replacement, and are highly encouraged to work with your PCP to help you quit. It was a pleasure taking care of you! Call if you have any questions or problems. You can reach a [facility] hospitalist on duty at [facility] 24 hours a day by calling [phone]. Take care of yourself. Bernie Carey, [facility] Hospitalist Current Hospital Diet Patient's current hospital diet: AHA Diet (Heart Healthy), Diabetes Type 2 Diet Discharge Diet Recommended Diet: AHA Diet (Heart Healthy), Diabetes Type 2 Diet Procedures Procedures Performed: esophagogastroduodenoscopy, with removal of food impaction, balloon esophageal dilatation, esophageal brushing Pending Studies Studies pending at discharge: yes List of pending studies: Throat fungal smear Laboratory Results Hemoglobin A1c Test 04/27/16 16:51 Range/Units Estimated Average Glucose 108 mg/dl Hemoglobin A1c 5.4 4.5-5.6 % Medical Emergencies . Who to Call and When: Medical Emergencies: If at any time you feel your situation is an emergency, please call 911 immediately. . Non-Emergent Contact Non-Emergency issues call your: Primary Care Provider . . "Provider Documentation" section prepared by Bernie Carey. . VTE Core Measure Inpt VTE Proph given/why not?: Enoxaparin (Lovenox)SQ
--- NOTE | 2016-06-30 09:40 | Discharge Summary ---
Discharge Summary Date of Service June 30, 2016. Discharge Summary Admission Date: June 22, 2016 at 11:46 Discharge Date: June 30, 2016 Discharge Disposition: Home with services Principal Diagnosis: Acute on Chronic Respiratory Failure 2/2 Acute COPD exacerbation Dysphagia to solids Denisse esophagitis Hypertension Tobacco Use Disorder Ectopic Atrial Tachycardia DM2 Hypothyroid Leukocytosis Procedures: EGD 06/28 Vaccinations: Pneumococcal -refused Consultations: Pulm Pending Studies/Follow-Up: see instructions below Medication Reconciliation New Medications: Prednisone (Prednisone) 20 Mg Tab 40 MG PO DAILY for 5 Days, #10 TAB 0 Refills Fluticasone Propionate (Fluticasone Propionate) 50 Mcg/Act Spr 2 SPRAYS NA BID for 30 Days, #1 EA Lisinopril (Prinivil) 20 Mg Tab 1 TAB PO DAILY for 30 Days, #30 TAB 0 Refills Nystatin (Nystatin) 5 Ml Susp 5 ML PO QID for 12 Days, #480 ML 0 Refills Swish in mouth and swallow four times daily for 12 days Tiotropium [place] (Spiriva Handihaler) 5 Puff/90 Mcg Aerp 1 PUFF INH QAM for 30 Days, #30 EA [Nicotine] () TDSY 1 PATCH TD QAM for 10 Days, #1 BOX 3 Refills Continued Medications: Albuterol Hfa (Ventolin Hfa) 200 Puffs/59424 Mcg Aers 2 PUFFS PO QID PRN for Shortness of Breath, #18 Atorvastatin (Atorvastatin Calcium) 40 Mg Tab 40 MG PO DAILY, #30 Budesonide/Formoterol Fumarate (Symbicort 160-4.5 Mcg/Act) 60 Puffs/Inhaler Aero 2 PUFFS INH BID for 30 Days, #60 DOSE Bupropion HCl (Bupropion HCl Sr) 100 Mg Tabcr 100 MG PO BID, #60 Gabapentin (Neurontin) 300 Mg Cap 300 MG PO QAM, 0 Refills Glipizide (Glipizide) 5 Mg Tab 2.5 MG PO DAILY Ipratropium-Albuterol (Combivent Respimat) 1 Aer Aer 2 PUFFS PO Q6, #4 Levothyroxine Sodium (Synthroid) 50 Mcg Tab 50 MCG PO DAILY, TAB Omeprazole (Prilosec) 20 Mg Capcr 20 MG PO DAILY, 0 Refills Oxygen (Oxygen) Gas 4 LITERS NA CONTINOUS Verapamil Sust Rel (Calan Sr Ext Rel) 120 Mg Tabcr 120 MG PO DAILY, #30 TAB 2 Refills Discontinued Medications: Arformoterol Tartrate (Brovana 15MCG/2ML Soln) Nebu 15 MCG INH BID, #60 AMP Fluticasone-Salmeterol 115/21 Mcg (Advair Hfa 115/21 Mcg) 1 Aer Aer 2 PUFFS PO DIRECTED, #12 Formoterol Fumarate (Perforomist) 20 Mcg/2 Ml Nebu 20 MCG INH BID, #60 AMP Nicotine (Nicotine) 1 Patch Tdsy 1 PATCH TD QAM for 30 Days, #30 Admission Information HPI (per Admitting provider): HISTORY OF PRESENT COMPLAINT: He is a 66-year-old male with significant past medical history including end-stage COPD on home oxygen, major depression, tobacco use disorder, benign prostatic hypertrophy, GERD, hypothyroidism, type 2 diabetes, apparently has been complaining of shortness of breath since Saturday last. His increasing has been getting to the point that he could hardly walk a few steps before he gets very short of breath. He does have cough with yellowish phlegm that was noted on Saturday. He denies to have any fever, but he complains to have chills. The condition got worse this morning, he called 911 and was brought to the Emergency Room. He denies to have any chest pain, any palpitation. He does not have any abdominal pain, nausea or vomiting. He denies to have any fever as mentioned earlier, no problem with urine and/or bowel habits, but he does have swelling of the legs which has been getting worse. He denies to any numbness or tingling in the extremities and he does not have any weakness involving any side of the body. In the ER, he was noted to have very short of breath. X-ray did not show any pneumonia, but he was given nebulized bronchodilator, intravenous Solu-Medrol ,antibiotic and will be admitted to telemetry floor. Physical Exam (per Admitting): PHYSICAL EXAMINATION: GENERAL: On examination in the Emergency Room, still having moderate shortness of breath. VITAL SIGNS: Temperature 36.7, pulse is 93, blood pressure 140/97, saturation 97% on 4 liters nasal cannula. HEENT: Unremarkable. NECK: Supple. No JVD, no bruit. CHEST: Decreased breath sounds with wheezing all over. Minimal crackles at the bases. HEART: S1, S2 regular. ABDOMEN: Distended, soft, benign, nontender, no organomegaly. Bowel sounds present. EXTREMITIES: 1+ edema bilaterally. MUSCULOSKELETAL SYSTEM: No acute arthritis involving any joint. CENTRAL NERVOUS SYSTEM: Alert, awake, oriented x3. Hospital Course This is a 66 year old male with a PMH of severe COPD and chronic respiratory failure requiring continuous O2 use at home, tobacco use disorder, depression, ectopic atrial tachycardia, DM2, hypothyroidism, GERD presents with worsening shortness of breath Acute on Chronic Respiratory Failure 2/2 Acute COPD exacerbation: poss 2/2 sinus infection vs denisse esophagitis found incidentally on EGD performed yesterday -still with some SOB and slight wheezing on exam but moving air better. Known FEV1 of 19% on outpatient PFTs. Per pulm, transition IV steroids to PO Prednisone with likely dc in am once stable for 24 hours. Cont Symbicort, add spiriva and flonase, and stop Brovana and Performist. Dc'd Combivent, Started Spiriva and changed nebs to PRN. Strongly recommended quitting smoking. Will need both f/u with pulm and GI as outpatient. Cont Nystatin for denisse esophagitis Dysphagia to solids: food bolus removal in OR last night with findings of esophageal stenosis s/p dilation. Nystatin was started in lieu of fluconazole in setting of concurrent statin use. Repeat EGD as outpatient in a few weeks to ensure resolution of yeast as this is likely cause of recurrent COPD flares. Denisse esophagitis: as above. Hypertension: Cont verapamil and lisinopril (started here) with increase dose to 20mg daily and cont prn hydralazine. BP is elevated here poss 2/2 steroid use and stress from inability to smoke along with inability to breathe well. Will order PRN hydralazine PO >SBP 160. Cont clonazepam PRN to help with craving anxiety. Tobacco Use Disorder: still smokes about 1/2 PPD, currently has a nicotine patch on, counseled on tobacco cessation, benzos prn Ectopic Atrial Tachycardia: continue Verapamil DM2: HbA1c in May 2016 = 5.6%, stop glipizide and use ISS and Lantus with ongoing IV steroids for better control. Appreciate glycemic pharmacy recs. Hypothyroid: stable, continue Synthroid Leukocytosis: poss 2/2 steroid use vs infection On day of discharge the patient was ambulating, oxygenating and mentating at baseline. He was tolerating PO. He was afebrile and hemodynamically stable and physical exam was unremarkable. He was discharged in stable condition with close PCP follow-up. Total time spent on discharge = 60 minutes This includes examination of the patient, discharge planning, medication reconciliation, and communication with other providers. Discharge Instructions Discharge Instructions Date of Service June 30, 2016. Admission Reason for Admission: Copd Exacerbation Discharge Discharge Diagnosis / Problem: COPD exacerbation 2/2 esophageal candidiasis Discharge Goals Goal(s): Prevent Disease Progression Activity Recommendations Activity Limitations: per Instructions/Follow-up section . Instructions / Follow-Up Instructions / Follow-Up Please take all medications as instructed. Please note multiple changes in your inhaler therapy. You will need an outpatient follow-up with your lung doctor within one week of discharge from the hospital. You will need monitoring of lung function and progress with multiple changes to your inhaler therapy. Additionally, lung doctor may consider bronchoscopy in setting of recurrent COPD flares. You will need a repeat CT scan in 6 months for tracking of a lung nodule and an area of scarring that was seen on CT scan of the chest. This can be coordinated through your PCP office. You will need a close follow-up with your primary care physician (PCP) within one week of discharge. Things that need follow-up include deciding if nightly BIPAP or CPAP would be beneficial for you, orchestrating repeat EGD with outpatient referral to [facility] for repeat upper endoscopy in 6 weeks. This will be to re-evaluate your esophageal candidal plaques and ensure they have resolved on the Nystatin therapy. It is possible that your recurrent COPD flares (and hospitalizations) may be caused from this infection. You will need monitoring of your blood pressure with increased Lisinopril in the hospital to 20mg once daily. You will also need some non-fasting bloodwork in two weeks to ensure your kidney function and electrolytes are fine on the higher dose. A script was provided for you to get this labwork. Someone will contact you on Saturday with the date/time of your follow-up with PCP. It is STRONGLY recommended that you quit smoking. Studies have shown this can extend your life. You have been provided with nicotine replacement, and are highly encouraged to work with your PCP to help you quit. It was a pleasure taking care of you! Call if you have any questions or problems. You can reach a [facility]ist on duty at [facility] 24 hours a day by calling [phone]. Take care of yourself. Bernie Carey, DO [facility] Hospitalist Additional Copies To Derrell Schmidt M.D.(SÁNCHEZ); Zahcary Stoddard MD
[2016-06-30 09:59] VITALS: O2SAT 98
[2016-06-30 10:34] VITALS: BP 134/98; PULSE 76
[2016-06-30 10:36] LABS: ALLEN TEST POS (POS); ARTERIAL BLD GAS O2 SATURATION 98.7 % (90-95); ARTERIAL BLOOD GAS BASE EXCESS 8.8 mEq/L (-9-1.8); ARTERIAL BLOOD GAS HCO3 35 mmol/L (19-24); ARTERIAL BLOOD GAS PO2 131 mm/Hg (80-95); ARTERIAL BLOOD GAS pH 7.43 (7.35-7.45); O2 ADMINISTRATION 4 L
[2016-06-30 11:39] VITALS: BP 134/98; PULSE 76; TEMP 36.5; O2SAT 98
--- NOTE | 2016-06-30 13:28 | Pharmacy Progress Note ---
Glycemic: Assessment & Plan Date of Service June 30, 2016. Assessment & Plan The patient is currently receiving 83 units of insulin per day. BSGs ranging 33 - 206 mg/dl over the past 24hrs. * Basal insulin: Lantus 8,15,or 22 units depending on BSG every 12 hours * Correctional Insulin: Novolog Correction per scale ACHS Goal Range: Low 110 mg/dL - High 140 mg/dL Correction Factor: 20 mg/dL/unit * Prandial insulin: Per carb ratio of 1 unit per 5 grams CHO consumed ASSESSMENT: * Fasting BSG was acceptable this AM and I knew that the patient would get a lower dose of Lantus based upon this * His last dose of prednisone was yesterday afternoon so I expected postprandial BSGs to still be affected by this for potentially up to 24 hours, which is why I did not adjust the Novolog parameters * The patient then had a severe hypoglycemic episode after breakfast this AM - most likely due to the tighter Novolog parameters and the effects of the prednisone must have dissipated already PLAN: * RN has already talked to the physician and held the lunch time dose of Novolog * The patient is to be discharged today on a short prednisone taper * I have d/c'd the Lantus altogether * I have also loosened the CF to 30 and the CR to 10 DISCHARGE RECOMMENDATIONS: * Resume glipizide 2.5 mg daily * BSGs may be slightly elevated while on the prednisone but this is a short course
--- NOTE | 2016-07-01 12:55 | Progress Note ---
Progress Note Date of Service July 01, 2016. Progress Note Called and left message for followup appt with Dr. Schmidt on 07/05 @ [facility]. Aurelio
[2016-11-21] MEDS ORDERED: GLC500 PO (14:14)
[2016-11-21] MEDS ORDERED: MULT-1042 PO (14:14)
[2016-11-21] MEDS ORDERED: THIA50TA3 PO (14:14)
[2017-01-10] MEDS ORDERED: LISI-725 PO (10:46)
[2017-01-10] MEDS ORDERED: VERA120T15 PO (10:46)
[2017-01-10] MEDS ORDERED: MULT-506 PO (10:47)
== END 2016-06-30 14:45 | disposition home health service (06) | DRG 189 ==
LOC: ENRESERVTM → ENRESERVDT → EDBD 09:25 → C.EDC 09:26 → C.MED 11:46 → C.MS2W 06-25 10:21
PROVIDERS: ADMIT Internal Medicine; ATTEND Hospitalist
PROC: 0D728ZZ Dilation of Middle Esophagus, Via Natural or Artificial Opening Endoscopic (ICD-10-PCS; principal; 2016-06-28 18:00)
DX: J96.20 Acute and chronic respiratory failure, unspecified whether with hypoxia or hypercapnia (principal); J44.1 Chronic obstructive pulmonary disease with (acute) exacerbation; B37.81 Candidal esophagitis; R06.82 Tachypnea, not elsewhere classified; F17.200 Nicotine dependence, unspecified, uncomplicated; F10.10 Alcohol abuse, uncomplicated; R06.00 Dyspnea, unspecified; Z83.3 Family history of diabetes mellitus; Z99.81 Dependence on supplemental oxygen; F32.9 Major depressive disorder, single episode, unspecified; K21.9 Gastro-esophageal reflux disease without esophagitis; E11.9 Type 2 diabetes mellitus without complications; E03.9 Hypothyroidism, unspecified; I49.1 Atrial premature depolarization; R13.10 Dysphagia, unspecified; I10 Essential (primary) hypertension; D72.829 Elevated white blood cell count, unspecified; T18.108A Unspecified foreign body in esophagus causing other injury, initial encounter

== ENCOUNTER 2016-07-14 19:52 | Emergency (ER) | payer OTHER ==
[~2016-07-14] VITALS: Ht 180.3 cm; Wt 88.0 kg
[2016-07-14 19:52] VITALS: TEMP 36.7; O2SAT 94; Ht 180.3 cm; Wt 88.0 kg
[~2016-07-14 19:52] MED LIST changes: -ALBUAER2 INH; -BRVIN INH; +FLNIN; +LISI20TA3 PO; +LPT40 PO; -NCDT21 TD; +NYSS5 PO; +Nicotine TD; -PRFINS INH; +SPRIN INH; +VNTHFA/IN PO; +WLLSR100 PO
[2016-07-14] MEDS ORDERED: METHYLPREDNISOLONE 125 MG VIAL IV STA (20:04)
--- NOTE | 2016-07-14 20:15 | EMERGENCY ROOM VISIT NOTE ---
History Report prepared by Saad: Ravin Jones Under the Supervision of: Dr. Fahad Griffin M.D. First contact with patient: 19:56 Stated Complaint: SOB/CHEST TIGHTNESS History of Present Illness The patient is a 66 year old male who presents to the Emergency Room with complaints of persistent shortness of breath all day today. The patient has shortness of breath at baseline which is increased. He normally wears 4L of oxygen at home. The patient had 4 nebulizer treatments at home, but he states that only one of them helped. Per nursing, the patient had another duo neb in the ambulance as well as 2 albuterol treatments. The patient states that his breathing wasn't as bad yesterday. He saw his doctor yesterday for his throat. The patient picked up prescriptions for Zithromax and Prednisone today. He states that he was not on antibiotics or steroids prior to today. The patient had a CT scan of his throat yesterday. The patient notes that his legs have been swollen for the past 1-2 weeks. He denies any fevers or increased cough from baseline. He is not on any diuretics. The patient smokes 10-12 cigarettes per day. He is not on blood thinners. Source of History: patient Onset: today Position: other (respiratory) Quality: other (shortness of breath) Timing: other (persistent) Modifying Factors (Relieving): other (relief from only one of his nebulizer treatments) Associated Symptoms: No fevers, No cough Note: + leg swelling. Review of Systems See HPI for pertinent positives & negatives. A total of 10 systems reviewed and were otherwise negative. Past Medical & Surgical Medical Problems: (1) Acute bronchitis (2) Acute respiratory failure (3) Bronchitis (4) Calculus Of Kidney (5) COPD (chronic obstructive pulmonary disease) (6) Diab Willa Wo Compl, Type Ii Or Unspec Type, Not Uncntrld (7) Edema (8) Low blood pressure (9) Respiratory failure Family History Cancer Diabetes mellitus Kidney disease Kidney stones Lung disease Social History Smoking Status: Current Every Day Smoker Alcohol Use: heavy Housing Status: lives alone Occupation Status: retired Current/Historical Medications Scheduled Albuterol Sulf (Proventil 0.083% 2.5MG/3ML), 2.5 MG INH QID Atorvastatin (Atorvastatin Calcium), 40 MG PO DAILY Azithromycin (Zithromax Z-Jayy), 0 PO UD Azithromycin (Zithromax), 250 MG PO MWF Budesonide/Formoterol Fumarate (Symbicort 160-4.5 Mcg/Act), 2 PUFFS INH BID Bupropion HCl (Bupropion HCl Sr), 100 MG PO BID Fluticasone Propionate (Fluticasone Propionate), 2 SPRAYS NA BID Gabapentin (Neurontin), 300 MG PO QAM Ipratropium [place] (Ipratropium [place]), 1 VIAL NEB QID Ipratropium-Albuterol (Combivent Respimat), 2 PUFFS PO Q6 Levothyroxine Sodium (Synthroid), 50 MCG PO DAILY Lisinopril (Prinivil), 1 TAB PO DAILY Omeprazole (Prilosec), 20 MG PO DAILY Oxygen (Oxygen), 4 LITERS NA CONTINOUS Prednisone (Prednisone), 3 TAB PO DAILY Prednisone Tab (Prednisone), 10 MG PO UD Verapamil Sust Rel (Calan Sr Ext Rel), 120 MG PO DAILY Scheduled PRN Albuterol Hfa (Ventolin Hfa), 2 PUFFS PO QID PRN for Shortness of Breath Docusate Sodium (Colace), 1 CAP PO BID PRN for Constipation Allergies Coded Allergies: Poultry Meal (Verified Allergy, Intermediate, TURKEY - HIVES, RASH, NAUSEA , 06/24/16) NOT CHICKEN, ONLY TURKEY Physical Exam Vital Signs Date Time Temp Pulse Resp B/P (MAP) Pulse Ox O2 Delivery O2 Flow Rate FiO2 07/14/16 22:51 85 20 159/87 98 Nasal Cannula 4.0 07/14/16 20:53 75 25 144/87 98 Nasal Cannula 4.0 07/14/16 20:07 84 07/14/16 19:52 36.7 73 23 127/82 94 Nasal Cannula 4.0 07/14/16 19:52 94 Nasal Cannula 4.0 07/14/16 19:52 95 Nasal Cannula 4.0 07/14/16 19:52 93 Nasal Cannula 4.0 Physical Exam GENERAL: Patient is in no acute distress. HEENT: No acute trauma, normocephalic atraumatic, mucous membranes moist, no nasal congestion, no scleral icterus. NECK: No stridor, no adenopathy, no meningismus, trachea is midline. LUNGS: Significantly diminished breath sounds, breath sounds are equal, no wheezing or rhonchi, no current respiratory distress. HEART: Without murmurs gallops or rubs, regular rate and rhythm. ABDOMEN: Soft, nontender, bowel sounds positive, no hernias, no peritonitis. EXTREMITIES: No cyanosis, moderate bilateral pedal edema, full range of motion of all the joints without pain or difficulty, no signs for acute trauma. NEUROLOGIC: Oriented x 3, no acute motor or sensory deficits, no focal weakness. SKIN: No rash, no jaundice, no diaphoresis. Medical Decision & Procedures ER Provider Diagnostic Interpretation: X-ray results as stated below per interpretation by me and the radiologist: Radiology results as stated below per my review and radiologist interpretation: ULTRASOUND BILATERAL LOWER EXTREMITY VENOUS CLINICAL HISTORY: Lower extremity edema. COMPARISON STUDY: Bilateral lower extremity venous ultrasound dated 07/17/2012. TECHNIQUE: Real-time, grayscale, and color Doppler sonography of the deep veins of the right and left lower extremity was performed from the inguinal crease to the calf. Compression and augmentation were utilized. FINDINGS: There is no sonographic evidence of deep venous thrombosis identified in the right or left lower extremity. The common femoral, superficial femoral, and popliteal veins are patent and normally compressible bilaterally. The greater saphenous vein and the profunda femoris vein at the junction with the common femoral vein are clear in both legs. The visualized calf veins are patent bilaterally. A small right popliteal cyst measures 2.1 x 0.7 x 1.4 cm. Subcutaneous soft tissue edema is present in both. IMPRESSION: 1. There is no sonographic evidence of deep venous thrombosis identified in the right or left lower extremity. 2. Small right-sided Valverde's cyst. Electronically signed by: Fahad Hammond M.D. 07/14/2016 10:16 PM Dictated Date/Time: 07/14/2016 10:16 PM SINGLE VIEW CHEST CLINICAL HISTORY: Dyspnea. FINDINGS: An AP, portable, upright chest radiograph is compared to study dated 06/22/2016 and correlated with chest CT dated 06/27/2016. The examination is degraded by portable technique , apical lordotic positioning, and patient rotation. The cardiomediastinal silhouette is unremarkable. There is atherosclerotic calcification of the thoracic aorta. Advanced emphysema and chronic additional thickening are similar to previous. Right upper lobe scarring is again noted. No airspace consolidation or pleural effusion is identified. There is biapical scarring. No pneumothorax is seen. The bony thorax is grossly intact. IMPRESSION: Advanced emphysema with no acute cardiopulmonary abnormality. No change from recent prior examinations. Electronically signed by: Fahad Hammond M.D. 07/14/2016 8:43 PM Dictated Date/Time: 07/14/2016 8:42 PM Laboratory Results 07/14/16 19:35 Red Blood Count 4.44, Mean Corpuscular Volume 100.0, Mean Corpuscular Hemoglobin 32.4, Mean Corpuscular Hemoglobin Concent 32.4, Mean Platelet Volume 10.7, Neutrophils (%) (Auto) 75.7, Lymphocytes (%) (Auto) 15.3, Monocytes (%) ( Auto) 6.8, Eosinophils (%) (Auto) 1.6, Basophils (%) (Auto) 0.2, Neutrophils # ( Auto) 7.53, Lymphocytes # (Auto) 1.52, Monocytes # (Auto) 0.68, Eosinophils # ( Auto) 0.16, Basophils # (Auto) 0.02 07/14/16 19:35 Test 07/14/16 19:35 White Blood Count 9.95 K/uL (4.8-10.8) Red Blood Count 4.44 M/uL (4.7-6.1) Hemoglobin 14.4 g/dL (14.0-18.0) Hematocrit 44.4 % (42-52) Mean Corpuscular Volume 100.0 fL (80-100) Mean Corpuscular Hemoglobin 32.4 pg (25-34) Mean Corpuscular Hemoglobin Concent 32.4 g/dl (32-36) Platelet Count 131 K/uL (130-400) Mean Platelet Volume 10.7 fL (7.4-10.4) Neutrophils (%) (Auto) 75.7 % Lymphocytes (%) (Auto) 15.3 % Monocytes (%) (Auto) 6.8 % Eosinophils (%) (Auto) 1.6 % Basophils (%) (Auto) 0.2 % Neutrophils # (Auto) 7.53 K/uL (1.4-6.5) Lymphocytes # (Auto) 1.52 K/uL (1.2-3.4) Monocytes # (Auto) 0.68 K/uL (0.11-0.59) Eosinophils # (Auto) 0.16 K/uL (0-0.5) Basophils # (Auto) 0.02 K/uL (0-0.2) RDW Standard Deviation 46.2 fL (36.4-46.3) RDW Coefficient of Variation 12.6 % (11.5-14.5) Immature Granulocyte % (Auto) 0.4 % Immature Granulocyte # (Auto) 0.04 K/uL (0.00-0.02) Prothrombin Time 9.5 SECONDS (9.0-12.0) Prothromb Time International Ratio 0.9 (0.9-1.1) Activated Partial Thromboplast Time 23.1 SECONDS (21.0-31.0) Partial Thromboplastin Ratio 0.9 Anion Gap 4.0 mmol/L (3-11) Est Creatinine Clear Calc Drug Dose 79.4 ml/min Estimated GFR () 91.8 Estimated GFR (Non- 79.2 BUN/Creatinine Ratio 17.3 (10-20) Calcium Level 8.6 mg/dl (8.5-10.1) Troponin I < 0.015 ng/ml (0-0.045) Pro-B-Type Natriuretic Peptide 305 pg/ml (0-900) Thyroid Stimulating Hormone (TSH) 0.785 uIu/ml (0.300-4.500) Free Thyroxine 1.16 ng/dl (0.80-1.60) Laboratory results reviewed by me. Medications Administered Medications (Trade) Dose Ordered Sig/Fadi Route Start Time Stop Time Status Last Admin Dose Admin Methylprednisolone Sodium Succinate (Solu-Medrol IV) 125 mg NOW STAT IV 07/14/16 20:04 07/14/16 20:07 DC 07/14/16 20:53 125 MG Azithromycin (Zithromax Tab) 500 mg NOW STAT PO 07/14/16 21:00 07/14/16 21:02 DC 07/14/16 21:05 500 MG ECG Indication: SOB/dyspnea Rate (beats per minute): 80 Rhythm: sinus rhythm (with baseline artifact) Findings: PAC, no acute ischemic change ED Course 1957: The patient was evaluated in room C5. A complete history and physical exam was performed. 2004: Solu-Medrol 125 mg IV. 2100: Zithromax 500 mg PO. 2199: Reassessed the patient. He feels back at baseline. Discussed the discharge instructions with him. He verbalized understanding and agreement. The patient is ready for discharge. Medical Decision Differential diagnosis includes DVT or PE, CHF, bronchitis or pneumonia, exacerbation of COPD, anemia, electrolyte imbalance, cardiac ischemia / [place]. There is no leukocytosis or concerning anemia. No significant electrolyte abnormality, kidney failure. Chest x-ray does not show pneumonia, pneumothorax or CHF. BNP is not elevated making CHF unlikely. Bilateral lower extremity ultrasound does not show DVT. EKG shows a sinus rhythm with some artifact, no acute ischemia. Cardiac enzyme testing times one is not consistent with acute cardiac injury. The patient was given IV Solu-Medrol and oral Zithromax. He has done well here. He had received 3 breathing treatments prior to arrival, no additional treatments were given in the emergency room. The patient is on is typical 4 liters of oxygen. He feels at baseline. He does feel stable for discharge home. He does have a Z-Jayy and a prescription of prednisone to start taking tomorrow. I have advised he started these as directed. He was encouraged to use his albuterol nebulizer every 4-6 hours. If things are worsening for him, he should report back to the ER. He appears to have an acute bronchitis with an exacerbation of COPD. The leg edema is likely from venous insufficiency, his medications and his diet. Impression Primary Impression: Acute bronchitis Additional Impressions: COPD exacerbation Pedal edema Scribe Attestation The scribe's documentation has been prepared under my direction and personally reviewed by me in its entirety. I confirm that the note above accurately reflects all work, treatment, procedures, and medical decision making performed by me. Departure Information Dispostion Home / Self-Care Referrals Derrell Schmidt M.D.(HUGH) (PCP) Forms HOME CARE DOCUMENTATION FORM, IMPORTANT VISIT INFORMATION Additional Instructions all meds as before avoid salt in the diet try to keep the legs elevated start the zithromax your doctor prescribed tomorrow start the prednisone your doctor prescribed tomorrow albuterol neb every 4-6 hours for the next few days return for worsening symptoms see your doctor for a recheck saturday or saturday testing today was all ok as we discussed Problem Qualifiers
[2016-07-14 20:30] LABS: BASO % 0.2 %; BASO ABS # 0.02 K/uL (0-0.2); COMPLETE YES; EOS % 1.6 %; HEMATOCRIT 44.4 % (42-52); IG% 0.4 %; LYMPH % 15.3 %; LYMPH ABS # 1.52 K/uL (1.2-3.4); MEAN CORPUSCULAR HEMOGLOBIN 32.4 pg (25-34); MEAN CORPUSCULAR HGB CONC 32.4 g/dl (32-36); MEAN PLATELET VOLUME 10.7 fL (7.4-10.4); MONO % 6.8 %; NEUT % 75.7 %; PLATELET COUNT 131 K/uL (130-400); RED BLOOD COUNT 4.44 M/uL (4.7-6.1); WHITE BLOOD COUNT 9.95 K/uL (4.8-10.8)
[2016-07-14 20:42] LABS: INR 0.9 (0.9-1.1); PARTIAL THROMBOPLASTIN RATIO 0.9; PROTHROMBIN TIME (PATIENT) 9.5 SECONDS (9.0-12.0)
[2016-07-14 20:45] LABS: BLOOD UREA NITROGEN 17 mg/dl (7-18); BUN/CREATININE RATIO 17.3 (10-20); CALCIUM 8.6 mg/dl (8.5-10.1); CARBON DIOXIDE 38 mmol/L (21-32); CHLORIDE 98 mmol/L (98-107); GLUCOSE 144 mg/dl (70-99); POTASSIUM 4.4 mmol/L (3.5-5.1); SODIUM 140 mmol/L (136-145)
--- NOTE | 2016-07-14 20:45 | DIAGNOSTIC IMAGING REPORT ---
SINGLE VIEW CHEST CLINICAL HISTORY: Dyspnea. FINDINGS: An AP, portable, upright chest radiograph is compared to study dated 06/22/2016 and correlated with chest CT dated 06/27/2016. The examination is degraded by portable technique , apical lordotic positioning, and patient rotation. The cardiomediastinal silhouette is unremarkable. There is atherosclerotic calcification of the thoracic aorta. Advanced emphysema and chronic additional thickening are similar to previous. Right upper lobe scarring is again noted. No airspace consolidation or pleural effusion is identified. There is biapical scarring. No pneumothorax is seen. The bony thorax is grossly intact. IMPRESSION: Advanced emphysema with no acute cardiopulmonary abnormality. No change from recent prior examinations. Electronically signed by: Fahad Hammond M.D. 07/14/2016 8:43 PM Dictated Date/Time: 07/14/2016 8:42 PM
[2016-07-14 20:56] LABS: THYROID STIMULATING HORMONE 0.785 uIu/ml (0.300-4.500)
[2016-07-14] MEDS ORDERED: PRED10TA PO (20:58)
[2016-07-14] MEDS ORDERED: PRED20TA PO (20:58)
[2016-07-14] MEDS ORDERED: ATRINS NEB (20:58)
[2016-07-14] MEDS ORDERED: ALBINS/ INH (20:58)
[2016-07-14] MEDS ORDERED: AZIT250T PO (20:58)
[2016-07-14] MEDS ORDERED: AZITTAB PO (20:58)
[2016-07-14] MEDS ORDERED: DOCU-94 PO (20:59)
[2016-07-14] MEDS ORDERED: AZITHROMYCIN 250 MG TAB PO STA (21:00)
--- NOTE | 2016-07-14 22:18 | DIAGNOSTIC IMAGING REPORT ---
ULTRASOUND BILATERAL LOWER EXTREMITY VENOUS CLINICAL HISTORY: Lower extremity edema. COMPARISON STUDY: Bilateral lower extremity venous ultrasound dated 07/17/2012. TECHNIQUE: Real-time, grayscale, and color Doppler sonography of the deep veins of the right and left lower extremity was performed from the inguinal crease to the calf. Compression and augmentation were utilized. FINDINGS: There is no sonographic evidence of deep venous thrombosis identified in the right or left lower extremity. The common femoral, superficial femoral, and popliteal veins are patent and normally compressible bilaterally. The greater saphenous vein and the profunda femoris vein at the junction with the common femoral vein are clear in both legs. The visualized calf veins are patent bilaterally. A small right popliteal cyst measures 2.1 x 0.7 x 1.4 cm. Subcutaneous soft tissue edema is present in both. IMPRESSION: 1. There is no sonographic evidence of deep venous thrombosis identified in the right or left lower extremity. 2. Small right-sided Valverde's cyst. Electronically signed by: Fahad Hammond M.D. 07/14/2016 10:16 PM Dictated Date/Time: 07/14/2016 10:16 PM
[2016-07-14 22:51] VITALS: BP 159/87; PULSE 85; O2SAT 98
[2016-11-21] MEDS ORDERED: THIA50TA3 PO (14:14)
[2016-11-21] MEDS ORDERED: GLC500 PO (14:14)
[2016-11-21] MEDS ORDERED: MULT-1042 PO (14:14)
[2017-01-10] MEDS ORDERED: LISI-725 PO (10:46)
[2017-01-10] MEDS ORDERED: VERA120T15 PO (10:46)
[2017-01-10] MEDS ORDERED: MULT-506 PO (10:47)
== END 2016-07-14 23:18 | disposition home or self-care (01) ==
LOC: EDBD 19:52 → C.EDC 19:53
DX: J20.9 Acute bronchitis, unspecified (principal); J44.1 Chronic obstructive pulmonary disease with (acute) exacerbation; R60.0 Localized edema; Z87.442 Personal history of urinary calculi; E11.9 Type 2 diabetes mellitus without complications; Z80.9 Family history of malignant neoplasm, unspecified; Z83.3 Family history of diabetes mellitus; Z84.1 Family history of disorders of kidney and ureter; Z83.6 Family history of other diseases of the respiratory system; F17.210 Nicotine dependence, cigarettes, uncomplicated; Z79.52 Long term (current) use of systemic steroids; Z79.899 Other long term (current) drug therapy; Z99.81 Dependence on supplemental oxygen

== ENCOUNTER 2016-11-16 14:04 | Inpatient (IN) | payer OTHER ==
[~2016-11-16] VITALS: Ht 175.3 cm; Wt 82.0 kg
[~2016-11-16 14:04] MED LIST changes: +ALBINS/ INH; +ATRINS NEB; +AZIT250T PO; +AZITTAB PO; +DOCU-94 PO; -GLC5 PO; -NYSS5 PO; -Nicotine TD; -PRD20 PO; +PRED10TA PO; +PRED20TA PO; -SPRIN INH
--- NOTE | 2016-11-16 14:37 | EMERGENCY ROOM VISIT NOTE ---
History Report prepared by Saad: Dana oGdinez Under the Supervision of: Dr. Bill Oneal M.D. First contact with patient: 14:13 Stated Complaint: CARDIAC ASSESSMENT History of Present Illness The patient is a 66 year old male who presents to the Emergency Room with complaints of intermittent chest pain for the past 4 days. He reports when he gets up in the morning, he feels extremely diaphoretic, short of breath and dizzy. He will sit down to drink his coffee when he develops a sharp pain in his chest. He rates the pain as a 9/10 in severity. The episode can last from 5 minutes to 30 minutes. Tums has provided no relief. He has not experienced any syncopal episodes but states he has "almost passed out" during these episodes of chest pain. His pain does not radiate to his jaw or arms, but he admits to some numbness in his left arm. He denies any nausea or vomiting. The patient is a current smoker. He denies any abdominal pain. He does admit to some increased swelling in his legs. He notes he has experienced a chronic cough for "years". He also complains of neck pain but states this is chronic as well. Pt denies any headache, fevers, chills, visual changes, nausea, vomiting, back pain, melena, hematochezia, urinary symptoms, weakness, lymphadenopathy, rash, or other complaints. The patient does admit to a history of DVT in his legs and atrial fibrillation. He has been taking his medications as prescribed and denies missing any recent doses. 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 A total of ten systems were reviewed and were otherwise negative. Past Medical & Surgical Medical Problems: (1) Acute bronchitis (2) Acute respiratory failure (3) Bronchitis (4) Calculus Of Kidney (5) Chest pain (6) COPD (chronic obstructive pulmonary disease) (7) Diab Willa Wo Compl, Type Ii Or Unspec Type, Not Uncntrld (8) Edema (9) Low blood pressure (10) Respiratory failure Family History Cancer Diabetes mellitus Kidney disease Kidney stones Lung disease Social History Smoking Status: Current Every Day Smoker Alcohol Use: heavy Drug Use: none Marital Status: single Housing Status: lives alone Occupation Status: retired Current/Historical Medications Scheduled Arformoterol Tartrate (Brovana), 15 MCG INH BID Atorvastatin (Atorvastatin Calcium), 40 MG PO DAILY Azithromycin (Zithromax), 250 MG PO MWF Budesonide (Budesonide), 1 VIAL NEB BID Docusate Sodium (Colace), PO BID Furosemide (Lasix), 20 MG PO DAILY Gabapentin (Neurontin), 300 MG PO QAM Home O2 Therapy (Oxygen), 3 LITERS NA CONTINOUS Levothyroxine Sodium (Synthroid), 50 MCG PO DAILY Lisinopril (Prinivil), 1 TAB PO DAILY Sildenafil Citrate (Viagra), 100 MG PO PRN Verapamil Sust Rel (Calan Sr Ext Rel), 120 MG PO DAILY Scheduled PRN Albuterol Hfa (Ventolin Hfa), 2 PUFFS PO QID PRN for Shortness of Breath Albuterol Sulf (Proventil 0.083% 2.5MG/3ML), 2.5 MG INH QID PRN for SOB/Wheezing Ipratropium-Albuterol (Combivent Respimat), 2 PUFFS PO Q6 PRN for SOB/Wheezing Allergies Coded Allergies: Poultry Meal (Verified Allergy, Intermediate, TURKEY - HIVES, RASH, NAUSEA , 11/16/16) NOT CHICKEN, ONLY TURKEY Physical Exam Vital Signs Date Time Temp Pulse Resp B/P (MAP) Pulse Ox O2 Delivery O2 Flow Rate FiO2 11/16/16 17:43 76 20 134/112 100 Nasal Cannula 3.0 11/16/16 16:00 73 21 124/80 94 Room Air 11/16/16 15:29 69 11/16/16 15:22 96 Room Air 11/16/16 15:22 96 Room Air 11/16/16 14:27 36.5 84 28 91/63 96 Room Air 11/16/16 14:19 96 Room Air Physical Exam GENERAL: Awake, alert, well-appearing, in no distress HENT: Normocephalic, atraumatic. Oropharynx unremarkable. EYES: Normal conjunctiva. Sclera non-icteric. NECK: Supple. No nuchal rigidity. FROM. No JVD. RESPIRATORY: Scattered rhonchi. CARDIAC: Regular rate, normal rhythm. Extremities warm and well perfused. Pulses equal. ABDOMEN: Soft, non-distended. No tenderness to palpation. No rebound or guarding. No masses. RECTAL: Deferred. MUSCULOSKELETAL: Chest examination reveals no tenderness. The back is symmetrical on inspection without obvious abnormality. There is no CVA tenderness to palpation. No joint edema. LOWER EXTREMITIES: Calves are equal size bilaterally and non-tender. 2+ LE edema. No discoloration. NEURO: Normal sensorium. No sensory or motor deficits noted. SKIN: No rash or jaundice noted. Medical Decision & Procedures ER Provider Diagnostic Interpretation: Radiology results as stated below per my review and radiologist interpretation: CHEST ONE VIEW PORTABLE HISTORY: 66 years-old Male CHEST PAIN acute atypical chest pain COMPARISON: Chest radiograph 07/14/2016, CT chest 06/27/2016 TECHNIQUE: Portable upright AP view of the chest FINDINGS: Cardiomediastinal and hilar silhouettes are within normal limits. Moderate to severe upper lobe predominant emphysema is seen with hyperinflation. Mild biapical pleural parenchymal scarring redemonstrated, right greater than left. The bones appear grossly intact. IMPRESSION: 1. No acute cardiopulmonary process. 2. Moderate to severe emphysema with unchanged biapical pleural-parenchymal scarring, right greater than left. The above report was generated using voice recognition software. It may contain grammatical, syntax or spelling errors. Electronically signed by: Shalom Wills M.D. 11/16/2016 3:17 PM Laboratory Results 11/16/16 14:30 Red Blood Count 3.91, Mean Corpuscular Volume 95.4, Mean Corpuscular Hemoglobin 33.2, Mean Corpuscular Hemoglobin Concent 34.9, Mean Platelet Volume 11.3, Neutrophils (%) (Auto) 68.3, Lymphocytes (%) (Auto) 19.1, Monocytes (%) (Auto) 10.3, Eosinophils (%) (Auto) 1.5, Basophils (%) (Auto) 0.6, Neutrophils # (Auto ) 5.75, Lymphocytes # (Auto) 1.61, Monocytes # (Auto) 0.87, Eosinophils # (Auto ) 0.13, Basophils # (Auto) 0.05 11/16/16 14:30 Test 11/16/16 14:30 11/16/16 18:04 White Blood Count 8.43 K/uL (4.8-10.8) Red Blood Count 3.91 M/uL (4.7-6.1) Hemoglobin 13.0 g/dL (14.0-18.0) Hematocrit 37.3 % (42-52) Mean Corpuscular Volume 95.4 fL (80-100) Mean Corpuscular Hemoglobin 33.2 pg (25-34) Mean Corpuscular Hemoglobin Concent 34.9 g/dl (32-36) Platelet Count 155 K/uL (130-400) Mean Platelet Volume 11.3 fL (7.4-10.4) Neutrophils (%) (Auto) 68.3 % Lymphocytes (%) (Auto) 19.1 % Monocytes (%) (Auto) 10.3 % Eosinophils (%) (Auto) 1.5 % Basophils (%) (Auto) 0.6 % Neutrophils # (Auto) 5.75 K/uL (1.4-6.5) Lymphocytes # (Auto) 1.61 K/uL (1.2-3.4) Monocytes # (Auto) 0.87 K/uL (0.11-0.59) Eosinophils # (Auto) 0.13 K/uL (0-0.5) Basophils # (Auto) 0.05 K/uL (0-0.2) RDW Standard Deviation 42.6 fL (36.4-46.3) RDW Coefficient of Variation 12.3 % (11.5-14.5) Immature Granulocyte % (Auto) 0.2 % Immature Granulocyte # (Auto) 0.02 K/uL (0.00-0.02) Prothrombin Time 10.3 SECONDS (9.0-12.0) Prothromb Time International Ratio 1.0 (0.9-1.1) Activated Partial Thromboplast Time 24.5 SECONDS (21.0-31.0) Partial Thromboplastin Ratio 0.9 Anion Gap 6.0 mmol/L (3-11) Est Creatinine Clear Calc Drug Dose 67.3 ml/min Estimated GFR () 73.6 Estimated GFR (Non- 63.5 BUN/Creatinine Ratio 13.8 (10-20) Calcium Level 9.3 mg/dl (8.5-10.1) Total Bilirubin 0.5 mg/dl (0.2-1) Direct Bilirubin 0.3 mg/dl (0-0.2) Aspartate Amino Transf (AST/SGOT) 37 U/L (15-37) Alanine Aminotransferase (ALT/SGPT) 48 U/L (12-78) Alkaline Phosphatase 74 U/L (45-117) Total Creatine Kinase 48 U/L (39-308) Creatine Kinase MB 3.5 ng/ml (0.5-3.6) Creatine Kinase MB Ratio 7.3 (0-3.0) Troponin I 0.023 ng/ml (0-0.045) Total Protein 6.5 gm/dl (6.4-8.2) Albumin 3.2 gm/dl (3.4-5.0) Lipase 170 U/L (73-393) Laboratory results reviewed by me Medications Administered Medications (Trade) Dose Ordered Sig/Fdai Route Start Time Stop Time Status Last Admin Dose Admin Albuterol/ Ipratropium (Duoneb) 3 ml STK-MED ONCE .ROUTE 11/16/16 17:34 11/16/16 17:35 DC 11/16/16 17:34 3 ML Aspirin (Aspirin Chew) 324 mg STK-MED ONCE .ROUTE 11/16/16 17:34 11/16/16 17:35 DC 11/16/16 17:34 324 MG ECG Indication: chest pain Rate (beats per minute): 80 Rhythm: normal sinus Findings: no acute ischemic change, no ectopy Change: Pre Hospital EKG on 11/16/2016: Normal sinus rhythm, rate of 73, no ischemia, no ectopy ED Course 1419: The patient was evaluated in room B11B. A complete history and physical exam was performed. 1604: I discussed the patients case with Rani Rock PA-C, [facility] Hospitalist. The patient will be further evaluated. 1609: I reevaluated the patient. He is resting comfortably. I discussed my recommendation he remain in the hospital for further evaluation and management and he verbalized complete understanding and agreement. Medical Decision Triage Nursing notes reviewed. The patient's presentation and history were concerning for chest pain and SOB. Etiologies such as cardiac ischemia, aortic dissection, pulmonary embolism, pneumonia, pneumothorax, musculoskeletal, infections, gastrointestinal, as well as others were entertained. The patient was evaluated. His history was very concerning. His ECG showed no ischemia. Chest x-ray and blood work were ordered. The patient states that he cannot take aspirin but is unsure why. The patient had an unremarkable CBC and chemistry panel. Cardiac markers negative. Chest x-ray was unremarkable for any acute process. [facility] The patient was evaluated in the Emergency Room for further management. Medication Reconcilliation Current Medication List: was personally reviewed by me Blood Pressure Screening Patient's blood pressure: Low blood pressure Consults Time Called: 1603 Consulting Physician[facility] Returned Call: 1604 I discussed the patients case with [facility]. The patient will be further evaluated. Impression Primary Impression: Precordial chest pain Additional Impression: Shortness of breath Scribe Attestation The scribe's documentation has been prepared under my direction and personally reviewed by me in its entirety. I confirm that the note above accurately reflects all work, treatment, procedures, and medical decision making performed by me. Departure Information Dispostion Being Evaluated By Hospitalist Referrals Derrell Schmidt M.D.([facility]) (PCP) Problem Qualifiers
[2016-11-16 14:55] LABS: BASO % 0.6 %; BASO ABS # 0.05 K/uL (0-0.2); COMPLETE YES; EOS % 1.5 %; HEMATOCRIT 37.3 % (42-52); IG% 0.2 %; LYMPH % 19.1 %; LYMPH ABS # 1.61 K/uL (1.2-3.4); MEAN CELL VOLUME 95.4 fL (80-100); MEAN CORPUSCULAR HEMOGLOBIN 33.2 pg (25-34); MEAN CORPUSCULAR HGB CONC 34.9 g/dl (32-36); MEAN PLATELET VOLUME 11.3 fL (7.4-10.4); MONO % 10.3 %; NEUT % 68.3 %; PLATELET COUNT 155 K/uL (130-400); RED BLOOD COUNT 3.91 M/uL (4.7-6.1); WHITE BLOOD COUNT 8.43 K/uL (4.8-10.8)
[2016-11-16] MEDS ORDERED: FURO-85 PO (14:56)
[2016-11-16 15:02] LABS: PARTIAL THROMBOPLASTIN RATIO 0.9; PROTHROMBIN TIME (PATIENT) 10.3 SECONDS (9.0-12.0)
[2016-11-16 15:11] LABS: BUN/CREATININE RATIO 13.8 (10-20); CALCIUM 9.3 mg/dl (8.5-10.1); CREATININE 1.2 mg/dl (0.60-1.40)
[2016-11-16 15:17] LABS: CKMB/CK RATIO 7.3 (0-3.0)
--- NOTE | 2016-11-16 15:18 | DIAGNOSTIC IMAGING REPORT ---
CHEST ONE VIEW PORTABLE HISTORY: 66 years-old Male CHEST PAIN acute atypical chest pain COMPARISON: Chest radiograph 07/14/2016, CT chest 06/27/2016 TECHNIQUE: Portable upright AP view of the chest FINDINGS: Cardiomediastinal and hilar silhouettes are within normal limits. Moderate to severe upper lobe predominant emphysema is seen with hyperinflation. Mild biapical pleural parenchymal scarring redemonstrated, right greater than left. The bones appear grossly intact. IMPRESSION: 1. No acute cardiopulmonary process. 2. Moderate to severe emphysema with unchanged biapical pleural-parenchymal scarring, right greater than left. The above report was generated using voice recognition software. It may contain grammatical, syntax or spelling errors. Electronically signed by: Shalom Wills M.D. 11/16/2016 3:17 PM Dictated Date/Time: 11/16/2016 3:15 PM
[2016-11-16] MEDS ORDERED: ACETAMINOPHEN 325 MG TAB PO PRN (16:45)
[2016-11-16] MEDS ORDERED: NITROGLYCERIN 0.4 MG SL PER TAB CHARGE SL PRN (16:45)
[2016-11-16] MEDS ORDERED: ONDANSETRON INJ 2 MG/ML 2 ML VIAL IV PRN (16:45)
[2016-11-16] MEDS ORDERED: IV FLUIDS COMPLETED PRN (17:00)
[2016-11-16] MEDS ORDERED: ASPIRIN 81 MG CHEW PO STA (17:16)
[2016-11-16] MEDS ORDERED: ALBUT/IPRATROP 3MG/0.5MG NEB 3 ML VIAL INH ONE (17:30)
[2016-11-16] MEDS ORDERED: ALBUT/IPRATROP 3MG/0.5MG NEB 3 ML VIAL ONE (17:34)
[2016-11-16] MEDS ORDERED: ASPIRIN 324 MG CHEW ONE (17:34)
[2016-11-16] MEDS ORDERED: ARFO15NE INH (17:56)
[2016-11-16] MEDS ORDERED: PLMINS NEB (17:56)
[2016-11-16] MEDS ORDERED: DOCU-94 PO (17:56)
[2016-11-16] MEDS ORDERED: SILD100T PO (17:56)
[2016-11-16] MEDS ORDERED: ALBUTEROL HFA 8 GM INHALER INH PRN (18:00)
[2016-11-16] MEDS ORDERED: IPRATROPIUM BROMIDE/ALBUTEROL respimat INH INH PRN (18:00)
[2016-11-16] MEDS ORDERED: GLUCOSE 10 TABS/TUBE PO PRN (18:15)
[2016-11-16] MEDS ORDERED: GLUCAGON FOR INJ 1 MG VIAL SQ PRN (18:15)
[2016-11-16] MEDS ORDERED: LORAZEPAM 1 MG TAB PO PRN (18:15)
[2016-11-16] MEDS ORDERED: DEXTROSE 50% 50 ML SYR IV PRN (18:15)
[2016-11-16] MEDS ORDERED: GLUCOSE 40% GEL 15 GM TUBE PO PRN (18:15)
[2016-11-16] MEDS ORDERED: GABAPENTIN 600 MG TAB PO SCH (18:15)
--- NOTE | 2016-11-16 18:53 | History and Physical ---
History & Physical Date & Time of Service: Nov 16, 2016 at 18:08 Chief Complaint: Cardiac Assessment Primary Care Physician: Derrell Schmidt M.D.(SÁNCHEZ) History of Present Illness Source: patient, clinic records This is a 66 y/o male with PMH of severe COPD on chronic O2 and chronic Azithromycin, continued tobacco abuse, DM type 2, paroxysmal atrial fibrillation , and other problems listed below who presents to the ED with chest pain. Patient states pain started 4 days ago. Has intermitted episodes of substernal pain "jabbing" or "pressure" exacerbated by movement/ activity. Episodes last 30 minutes and improve with rest. No radiation of pain but has associated left arm tingling. He reports associated diaphoresis and lightheadedness. Denies relation to eating or swallowing. Tried Tums at home without relief. Called PCP today and was instructed to call 911. Transported to ER by ambulance. Currently chest pain free. Has chronic cough. Producing yellow sputum. Has chronic MCGILL, denies worsening from baseline. Has chronic bilat LE edema- unchanged. Has chronic bilateral calf pain. Denies orthopnea, dyspnea at rest, abdominal pain, reflux, N/V/D, dysuria. No hx of abnormal bleeding. States he was on blood thinner years ago for blood clot in leg- superficial thrombophlebitis as per hospital notes. Not on anticoagulation currently. No hx of CAD. Followed by Dr. Michael for cardiology. Past Medical/Surgical History Medical Problems: (1) BPH (benign prostatic hyperplasia) Status: Chronic (2) Chronic respiratory failure Status: Chronic (3) COPD (chronic obstructive pulmonary disease) Status: Chronic (4) Depression Status: Chronic (5) Diab Willa Wo Compl, Type Ii Or Unspec Type, Not Uncntrld Status: Chronic (6) Esophageal stenosis Permanent Comment: s/p dilation June 2016 Status: Chronic (7) GERD (gastroesophageal reflux disease) Status: Chronic (8) Hypothyroidism Status: Chronic (9) Superficial thrombophlebitis Permanent Comment: 2009 Status: Chronic (10) TIA (transient ischemic attack) Permanent Comment: 1982 Status: Chronic Surgical Problems: (1) S/P bronchoscopy Status: Chronic Family History Cancer Diabetes mellitus Kidney disease Kidney stones Lung disease Social History Smoking Status: Current Every Day Smoker (3/4 to 1 ppid. smoking for >40 years. cessation counselling provided) Alcohol Use: 5 beers per day. had 2 sips this morning, last drink prior was 1 am. no hx withdrawal. Marital Status: single Housing status: lives alone Occupational Status: retired Immunizations History of Influenza Vaccine: N/A History of Tetanus Vaccine?: Yes Tetanus Immunization Date: Jul 17, 2010 History of Pneumococcal: Yes Pneumococcal Date: Dec 06, 2008 History of Hepatitis B Vaccine: No Multi-Drug Resistant Organisms History of MDRO: No Allergies Coded Allergies: Poultry Meal (Verified Allergy, Intermediate, TURKEY - HIVES, RASH, NAUSEA , 11/16/16) NOT CHICKEN, ONLY TURKEY Home Medications Scheduled Arformoterol Tartrate (Brovana), 15 MCG INH BID Atorvastatin (Atorvastatin Calcium), 40 MG PO DAILY Azithromycin (Zithromax), 250 MG PO MWF Budesonide (Budesonide), 1 VIAL NEB BID Docusate Sodium (Colace), PO BID Furosemide (Lasix), 20 MG PO DAILY Gabapentin (Neurontin), 300 MG PO QAM Home O2 Therapy (Oxygen), 3 LITERS NA CONTINOUS Levothyroxine Sodium (Synthroid), 50 MCG PO DAILY Lisinopril (Prinivil), 1 TAB PO DAILY Sildenafil Citrate (Viagra), 100 MG PO PRN Verapamil Sust Rel (Calan Sr Ext Rel), 120 MG PO DAILY Scheduled PRN Albuterol Hfa (Ventolin Hfa), 2 PUFFS PO QID PRN for Shortness of Breath Albuterol Sulf (Proventil 0.083% 2.5MG/3ML), 2.5 MG INH QID PRN for SOB/Wheezing Ipratropium-Albuterol (Combivent Respimat), 2 PUFFS PO Q6 PRN for SOB/Wheezing Review of Systems Constitutional: + chills, + sweats, No fever ENT: No nasal symptoms, No sore throat Respiratory: + cough, + sputum, + dyspnea on exertion, No dyspnea at rest Cardiovascular: + chest pain, + edema (chronic bilat LE unchnaged) Abdomen: No pain, No nausea, No vomiting, No diarrhea Musculoskeletal: + calf pain (chronic bilateral) Genitourinary - Male: No dysuria Neurologic: + numbness/tingling (left arm tingling with chest pain episodes), No problem reported (no tremor) Hematologic / Lymphatic: No abnormal bleeding/bruising Integumentary: No new/changing skin lesions Physical Exam Vital Signs Date Time Temp Pulse Resp B/P (MAP) Pulse Ox O2 Delivery O2 Flow Rate FiO2 11/16/16 17:43 76 20 134/112 100 Nasal Cannula 3.0 11/16/16 16:00 73 21 124/80 94 Room Air 11/16/16 15:29 69 11/16/16 15:22 96 Room Air 11/16/16 15:22 96 Room Air 11/16/16 14:27 36.5 84 28 91/63 96 Room Air 11/16/16 14:19 96 Room Air General Appearance: WD/WN, no apparent distress, + pertinent finding (alert cooperative 66 year old male) Head: normocephalic, atraumatic Eyes: normal inspection, sclerae normal ENT: hearing grossly normal, pharynx normal Neck: supple, trachea midline Respiratory/Chest: no accessory muscle use, + wheezing (expiratory wheezing throughout), + pertinent finding (dyspnea with minimal exertion (changing position in bed), resolves with rest) Cardiovascular: regular rate, rhythm, no murmur Abdomen/GI: normal bowel sounds, non tender, soft Extremities/Musculoskelatal: no calf tenderness, + pertinent finding (1+ pretibial edema bilaterally- chronic. anterior lower legs tender to palpation bilaterally. ) Neurologic/Psych: alert, normal mood/affect, oriented x 3 Skin: normal color, warm/dry Diagnostics Laboratory Results Results Past 24 Hours Test 11/16/16 14:30 Range/Units White Blood Count 8.43 4.8-10.8 K/uL Red Blood Count 3.91 4.7-6.1 M/uL Hemoglobin 13.0 14.0-18.0 g/dL Hematocrit 37.3 42-52 % Mean Corpuscular Volume 95.4 80-100 fL Mean Corpuscular Hemoglobin 33.2 25-34 pg Mean Corpuscular Hemoglobin Concent 34.9 32-36 g/dl Platelet Count 155 130-400 K/uL Mean Platelet Volume 11.3 7.4-10.4 fL Neutrophils (%) (Auto) 68.3 % Lymphocytes (%) (Auto) 19.1 % Monocytes (%) (Auto) 10.3 % Eosinophils (%) (Auto) 1.5 % Basophils (%) (Auto) 0.6 % Neutrophils # (Auto) 5.75 1.4-6.5 K/uL Lymphocytes # (Auto) 1.61 1.2-3.4 K/uL Monocytes # (Auto) 0.87 0.11-0.59 K/uL Eosinophils # (Auto) 0.13 0-0.5 K/uL Basophils # (Auto) 0.05 0-0.2 K/uL RDW Standard Deviation 42.6 36.4-46.3 fL RDW Coefficient of Variation 12.3 11.5-14.5 % Immature Granulocyte % (Auto) 0.2 % Immature Granulocyte # (Auto) 0.02 0.00-0.02 K/uL Prothrombin Time 10.3 9.0-12.0 SECONDS Prothromb Time International Ratio 1.0 0.9-1.1 Activated Partial Thromboplast Time 24.5 21.0-31.0 SECONDS Partial Thromboplastin Ratio 0.9 Sodium Level 140 136-145 mmol/L Potassium Level 4.0 3.5-5.1 mmol/L Chloride Level 102 98-107 mmol/L Carbon Dioxide Level 32 21-32 mmol/L Anion Gap 6.0 3-11 mmol/L Blood Urea Nitrogen 17 7-18 mg/dl Creatinine 1.20 0.60-1.40 mg/dl Est Creatinine Clear Calc Drug Dose 67.3 ml/min Estimated GFR () 73.6 Estimated GFR (Non- 63.5 BUN/Creatinine Ratio 13.8 10-20 Random Glucose 112 70-99 mg/dl Calcium Level 9.3 8.5-10.1 mg/dl Total Bilirubin 0.5 0.2-1 mg/dl Direct Bilirubin 0.3 0-0.2 mg/dl Aspartate Amino Transf (AST/SGOT) 37 15-37 U/L Alanine Aminotransferase (ALT/SGPT) 48 12-78 U/L Alkaline Phosphatase 74 45-117 U/L Total Creatine Kinase 48 39-308 U/L Creatine Kinase MB 3.5 0.5-3.6 ng/ml Creatine Kinase MB Ratio 7.3 0-3.0 Troponin I 0.023 0-0.045 ng/ml Total Protein 6.5 6.4-8.2 gm/dl Albumin 3.2 3.4-5.0 gm/dl Lipase 170 73-393 U/L Diagnostic Radiology CHEST ONE VIEW PORTABLE HISTORY: 66 years-old Male CHEST PAIN acute atypical chest pain COMPARISON: Chest radiograph 07/14/2016, CT chest 06/27/2016 TECHNIQUE: Portable upright AP view of the chest FINDINGS: Cardiomediastinal and hilar silhouettes are within normal limits. Moderate to severe upper lobe predominant emphysema is seen with hyperinflation. Mild biapical pleural parenchymal scarring redemonstrated, right greater than left. The bones appear grossly intact. IMPRESSION: 1. No acute cardiopulmonary process. 2. Moderate to severe emphysema with unchanged biapical pleural-parenchymal scarring, right greater than left. EKG NSR, 80 bpm, Incomplete RBBB, when compared to prior EKG 14-JUL-2016 19:58, premature supraventricular complexes are no longer Present, as confirmed by cardiology, also reviewed by me Impression Assessment and Plan CHEST PAIN R/o ACS; at risk due to DM, smoking Currently chest pain free Initial troponin negative; EKG- no ischemic findings; CXR- no acute findings,+ emphysematous lungs Give aspirin 234 mg now, then daily ASA 81 mg Trend serial cardiac enzymes Check echo Repeat EKG in am Consult cardiology May benefit from dobutamine stress echo CHRONIC RESPIRATORY FAILURE/ COPD Not in exacerbation Continue home nebs/ inhalers On chronic Azithromycin MWF- continue Continue chronic supplemental O2 HYPERTENSION BP initially 90s systolic- improved Hold furosemide Continue lisinopril, verapamil H/O PAROXYSMAL ATRIAL FIBRILLATION Not on anticoagulation Currently in NSR Continue verapamil HYPOTHYROIDISM Check TSH Continue levothyroxine DM TYPE 2 Diet controlled Novolog sliding scale Check A1c in am ALCOHOL USE Monitor for withdrawal Gabapentin protocol for withdrawal prevention, then resume his usual dose of gabapentin 300 mg daily Banana bag, thiamine ordered Check thiamine and folic acid DVT PROPHYLAXIS Heparin SQ Patient seen in collaboration with Dr. Arita. Please see his addendum. Attending Physician Addendum Dr. Arita I have seen and examined the patient with MANUEL Rock. Patient is not in acute distress on room air but is oxygen dependent at home for COPD. Here because of worsening dyspnea with chest discomfort. When examined at bedside, patient became winded just by moving from sitting position to lying down. Plans to continue treatment with nebulizer and oxygen for COPD, avoid titration of oxygen above 92% in COPD patient. Initial tests negative for myocardial infarction however given his cardiac risk factors, will rule out acute coronary syndrome with serial troponins and obtain Transthoracic echo to look for wall motion abnormalities concerning for ischemia vs valvular disease associated with COPD. Will ask cardiology consult if need further risk stratification for coronary artery disease. If further stress testing needed, patient unlikely to be able to run on the treadmill given dyspnea. Monitor on telemetry for now Level of Care Telemetry Resuscitation Status FULL RESUSCITATION VTE Prophylaxis VTE Risk Assessment Done? Y/N: Yes Risk Level: Moderate Given or contraindicated: Unfractionated heparin SQ
[2016-11-16 19:03] VITALS: BP 124/84; PULSE 112; TEMP 36.3; O2SAT 98
[2016-11-16] MEDS ORDERED: MULTI-VITAMIN INFUSION INJ 10 ML, THIAMINE HCL INJ 100 MG, FoLIC ACID INJ 1 MG in SODIU... IV ONE (19:30)
[2016-11-16] MEDS ORDERED: GABAPENTIN 1200MG LOADING DOSE PO ONE (20:00)
[2016-11-16 20:08] VITALS: PULSE 88; O2SAT 97
[2016-11-16] MEDS: BUDESONIDE 0.5 MG/2 ML VIAL (PULMICORT) INH SCH (20:08)
[2016-11-16] MEDS: ALBUTEROL 0.083% NEBU SOLN 3 ML VIAL INH PRN (20:08)
[2016-11-16] MEDS: ARFORMOTEROL TART 15MCG/2ML VIAL INH SCH (20:08)
[2016-11-16] MEDS: THIAMINE HCL 100 MG TAB PO SCH (20:20)
[2016-11-16] MEDS: DOCUSATE SODIUM 100 MG CAP PO SCH (20:21)
[2016-11-16 20:26] LABS: CKMB/CK RATIO 6.6 (0-3.0)
[2016-11-16] MEDS: INSULIN ASPART 100 UNITS/ML 3 ML PEN SC SCH (21:39)
[2016-11-16] MEDS: HEPARIN SOD 5000 UNIT/0.5 ML CARP SQ SCH (21:40)
[2016-11-16 22:00] VITALS: BP 124/84; PULSE 112; TEMP 36.3; O2SAT 97; Ht 175.3 cm; Wt 82.0 kg
[2016-11-16 23:09] VITALS: BP 100/63; PULSE 71; TEMP 36.6; O2SAT 96
[2016-11-17] VITALS (8 sets, daily range): BP systolic 98–132; BP diastolic 56–83; PULSE 63–82; TEMP 36.3–36.9; O2SAT 96–100
[2016-11-17 02:24] LABS: CKMB/CK RATIO 6.7 (0-3.0)
[2016-11-17] MEDS ORDERED: INFLUENZA ADMINISTRATION CHARGE ONE (03:45)
[2016-11-17] MEDS ORDERED: INFLUENZA VIRUS QUAD VACCINE 0.5 ML SYR IM. ONE (03:45)
[2016-11-17] MEDS: HEPARIN SOD 5000 UNIT/0.5 ML CARP SQ SCH ×3 (05:39→19:39)
[2016-11-17] MEDS: GABAPENTIN 600MG Q6H DOSE PO SCH ×2 (05:41→12:13)
[2016-11-17] MEDS: LEVOTHYROXINE 50 MCG TAB PO SCH (05:42)
[2016-11-17] MEDS: NICOTINE 21 MG/24 HR TDSY TD SCH ×2 (06:22→08:04)
[2016-11-17] MEDS: ARFORMOTEROL TART 15MCG/2ML VIAL INH SCH ×2 (07:19→19:16)
[2016-11-17] MEDS: BUDESONIDE 0.5 MG/2 ML VIAL (PULMICORT) INH SCH ×2 (07:19→19:16)
[2016-11-17] MEDS: DOCUSATE SODIUM 100 MG CAP PO SCH ×2 (08:09→19:38)
[2016-11-17] MEDS: ASPIRIN 81 MG ECTAB PO SCH (08:09)
[2016-11-17] MEDS: LISINOPRIL 20 MG TAB PO SCH (08:10)
[2016-11-17] MEDS: ATORVASTATIN 40 MG TAB PO SCH (08:10)
[2016-11-17] MEDS: VERAPAMIL HCL 120 MG TABCR PO SCH (08:10)
[2016-11-17] MEDS: INSULIN ASPART 100 UNITS/ML 3 ML PEN SC SCH ×4 (08:16→21:00)
[2016-11-17] MEDS ORDERED: GABAPENTIN 300 MG CAP PO SCH (09:00)
[2016-11-17] MEDS ORDERED: FUROSEMIDE 20 MG TAB PO SCH (09:00)
[2016-11-17] MEDS ORDERED: PERFLUTREN LIPID MICROSPHERE (DEFINITY) IV ONE (09:08)
--- NOTE | 2016-11-17 13:20 | ECHOCARDIOGRAM REPORT ---
*NOTICE TO RECEIVING DEMOCRAT AGENCY This information is strictly Confidential and protected under [place] law. [place] law prohibits you from making any further disclosure of this information unless further disclosure is expressly permitted by the written consent of the person to whom it pertains or is authorized by law. A general authorization for the release of medical or other information is not sufficient for this purpose. Hospital accepts no responsibility if the information is made available to any other person, INCLUDING THE PATIENT. Interpretation Summary * Name: BRYNN QUIROGA Study Date: 11/17/2016 08:41 AM BP: 106/56 mmHg * Patient Location: [facility]\S\N276\S\1 HR: 67 * : 1950 (M/d/yyyy) Gender: Male Height: 69 in * Age: 66 yrs Ethnicity: [place] Weight: 188 lb * Ordering Physician: Rani Rock * Referring Physician: Derrell Schmidt M.D.(SÁNCHEZ) * Performed By: Ana Almanzar * * Reason For Study: CHEST PAIN * BSA: 2.0 m2 * -- Conclusions -- * Normal LV chamber size with midl concentric LVH. * Hyperdynamic LV systolic function, EF >70%. * No segmental left ventricular wall motion abnormalities are noted. * Grade II diastolic dysfunction. * No significant valvular pathology. * Small, loculated anterior pericardial effusion with stranding to suggest chronicity. Unchanged compared to study of 06/23/16. Procedure Details * A complete two-dimensional transthoracic echocardiogram was performed (2D, M-mode, Doppler and color flow Doppler). * The study was technically difficult. * There were technical limitations due to patient'sPoor acoustic windows secondary to severe lung disease. * A contrast injection of Definity was performed to improve assessment of LV function. * Contrast was injected into an intravenous site in the left arm. * One vial of Definity ultrasound contrast was diluted in normal saline to a total volume of 10 ml. A total of '3' ml of solution was administered during imaging. * Lot # [id number] of Definity utilized for procedure. * Expiration date 11/28. * The attending nurse who injected the contrast agent was SHERRI MERLOS RN. Left Ventricle * The left ventricle is normal in size. * There is mild concentric left ventricular hypertrophy. * Ejection Fraction = >70 %. * The left ventricle is hyperdynamic. * No segmental left ventricular wall motion abnormalities are noted. * The left ventricular wall motion is normal. Right Ventricle * The right ventricular cavity size is normal (basal dimension <4.2 cm in right ventricular apical 4-chamber view). * The right ventricular systolic function is normal as assessed by tricuspid annular plane systolic excursion (TAPSE) (normal >1.5 cm). Atria * The left atrium is mildly dilated. * Right atrial size is normal. * No ASD detected; PFO is not assessed. Mitral Valve * The mitral valve is normal in structure and function. Tricuspid Valve * The tricuspid valve is normal in structure and function. Aortic Valve * The aortic valve is not well visualized. * No hemodynamically significant valvular aortic stenosis. * There is no significant aortic regurgitation. Pulmonic Valve * The pulmonary valve is not well seen, but the Doppler examination is normal without significant regurgitation or stenosis. Great Vessels * The aortic root is normal size. Pericardium/Pleural * Small, loculated anterior pericardial effusion with stranding to suggest chronicity. Unchanged compared to study of 06/23/16. Left Ventricular Diastolic Function * Diastolic dysfunction, Grade II (pseudonormalization pattern). MMode 2D Measurements and Calculations IVSd 1.3 cm IVSs 2.1 cm LVIDd 5.3 cm LVIDs 2.9 cm LVPWd 1.1 cm LVPWs 2.0 cm IVS/LVPW 1.3 FS 45.8 % EDV(Teich) 138.3 ml ESV(Teich) 32.2 ml EF(Teich) 76.7 % EDV(cubed) 153.1 ml ESV(cubed) 24.4 ml EF(cubed) 84.1 % % IVS thick 58.6 % % LVPW thick 90.1 % LV mass(C)d 259.6 grams LV mass(C)dI 129.0 grams/m\S\2 LV mass(C)s 269.6 grams LV mass(C)sI 134.0 grams/m\S\2 CO(Teich) 7.0 l/min CI(Teich) 3.5 l/min/m\S\2 SV(Teich) 106.1 ml SI(Teich) 52.7 ml/m\S\2 CO(cubed) 8.5 l/min CI(cubed) 4.2 l/min/m\S\2 SV(cubed) 128.7 ml SI(cubed) 64.0 ml/m\S\2 ACS 1.8 cm asc Aorta Diam 3.7 cm LVOT diam 2.0 cm LVOT area 3.2 cm\S\2 LVAd ap4 35.4 cm\S\2 LVLd ap4 8.7 cm EDV(MOD-sp4) 115.0 ml LVAs ap4 13.8 cm\S\2 LVLs ap4 5.9 cm ESV(MOD-sp4) 26.6 ml EF(MOD-sp4) 76.9 % LVAd ap2 29.4 cm\S\2 LVLd ap2 7.5 cm EDV(MOD-sp2) 94.1 ml LVAs ap2 13.1 cm\S\2 LVLs ap2 5.6 cm ESV(MOD-sp2) 25.3 ml EF(MOD-sp2) 73.1 % CO(MOD-sp4) 5.8 l/min CI(MOD-sp4) 2.9 l/min/m\S\2 SV(MOD-sp4) 88.4 ml SI(MOD-sp4) 43.9 ml/m\S\2 CO(MOD-sp2) 4.5 l/min CI(MOD-sp2) 2.3 l/min/m\S\2 SV(MOD-sp2) 68.8 ml SI(MOD-sp2) 34.2 ml/m\S\2 Doppler Measurements and Calculations MV E max deborah 107.7 cm/sec MV A max deborah 72.3 cm/sec MV E/A 1.5 MV dec time 0.24 sec Ao V2 max 117.3 cm/sec Ao max PG 5.5 mmHg Ao max PG (full) 1.6 mmHg JANICE(V,A) 2.7 cm\S\2 JANICE(V,D) 2.7 cm\S\2 LV V1 max PG 3.9 mmHg LV V1 max 98.5 cm/sec MR max deborah 385.5 cm/sec MR max PG 59.4 mmHg PA V2 max 86.3 cm/sec PA max PG 3.0 mmHg
--- NOTE | 2016-11-17 15:33 | Progress Note ---
Internal Med Progress Note Date of Service: Nov 17, 2016. Provider Documentation: SUBJECTIVE: patient denies chest pain today. continues to be having shortness of breath especially when ambulating from bed to bathroom. unclear as to whether he is near his respiratory baseline OBJECTIVE: General Appearance: no distress when at rest on room air Head: normocephalic, atraumatic Eyes: normal inspection, sclerae normal ENT: hearing grossly normal, pharynx normal Neck: supple, trachea midline Respiratory/Chest: no accessory muscle use, no wheezing, moderate level of air entry on inspiration and expiration Cardiovascular: regular rate, rhythm, no murmur Abdomen/GI: normal bowel sounds, non tender, soft Extremities: no calf tenderness Neurologic/Psych: alert, normal mood/affect, oriented x 3 Skin: normal color, warm/dry ASSESSMENT & PLAN: Chest pain: negative troponins x 3, chest pain resolved Transthoracic Echo 11/17/16 Normal LV chamber size with midl concentric LVH. Hyperdynamic LV systolic function, EF >70%. No segmental left ventricular wall motion abnormalities are noted. Grade II diastolic dysfunction. No significant valvular pathology. Small, loculated anterior pericardial effusion with stranding to suggest chronicity. Unchanged compared to study of 06/23/16 cardiology planning to keep patient as inpatient until dobutamine stress echo can be performed after this weekend continue with aspirin, verapamil, lisinopril, and atorvastatin for cardiovascular issues including blood pressure control appears euvolemic and blood pressure on low normal ranges, hold lasix for now CHRONIC RESPIRATORY FAILURE/ COPD Continue home nebs/ inhalers On chronic Azithromycin MWF- continue Continue chronic supplemental O2 H/O PAROXYSMAL ATRIAL FIBRILLATION Not on anticoagulation Currently in NSR Continue verapamil HYPOTHYROIDISM Check TSH Continue levothyroxine DM TYPE 2 Diet controlled Novolog sliding scale while inpatient ALCOHOL USE Monitor for withdrawal Gabapentin protocol for withdrawal prevention, then resume his usual dose of gabapentin 300 mg daily history of varices? will need to have cardiac health assessed fully and respiratory symptoms stable before further workup on this issue DVT PROPHYLAXIS Heparin SQ Vital Signs: Date Time Temp Pulse Resp B/P (MAP) Pulse Ox O2 Delivery O2 Flow Rate FiO2 11/17/16 12:07 Nasal Cannula 3.0 11/17/16 11:46 36.3 63 18 101/67 (78) 98 3.0 11/17/16 08:00 Nasal Cannula 3.0 11/17/16 07:30 36.4 63 18 100/56 (71) 100 3.0 11/17/16 07:19 82 18 97 Nasal Cannula 3.0 11/17/16 04:00 36.6 67 14 106/56 (73) 96 11/17/16 04:00 Nasal Cannula 3.0 11/17/16 00:00 Nasal Cannula 3.0 11/16/16 23:09 36.6 71 18 100/63 (75) 96 Nasal Cannula 3.0 11/16/16 22:00 36.3 112 22 124/84 97 Nasal Cannula 3.0 11/16/16 20:08 88 22 97 Nasal Cannula 3.0 11/16/16 19:03 36.3 112 22 124/84 (97) 98 Room Air 11/16/16 17:43 76 20 134/112 100 Nasal Cannula 3.0 11/16/16 16:00 73 21 124/80 94 Room Air Lab Results: Results Past 24 Hours Test 11/16/16 19:46 11/16/16 20:15 11/17/16 01:37 11/17/16 08:00 Range/Units Total Creatine Kinase 50 48 39-308 U/L Creatine Kinase MB 3.3 3.2 0.5-3.6 ng/ml Creatine Kinase MB Ratio 6.6 6.7 0-3.0 Troponin I 0.041 0.031 0-0.045 ng/ml Vitamin B12 Level 262 211-911 pg/mL Folate 19.85 >5.38 ng/mL Bedside Glucose 116 78 70-99 mg/dl Estimated Average Glucose 154 mg/dl Hemoglobin A1c 7.0 4.5-5.6 % Test 11/17/16 11:31 Range/Units Bedside Glucose 113 70-99 mg/dl
--- NOTE | 2016-11-17 15:40 | CARDIOLOGY CONSULTATION ---
DATE OF CONSULTATION: 11/17/2016 CONSULTATION REQUESTED BY: Bernie Carey DO REASON FOR CONSULTATION: Chest pain. HISTORY OF PRESENT ILLNESS: Mr. Villareal is a very pleasant 66-year-old gentleman who presented to [facility] on 11/16/2016 with a complaint of chest pain. The patient normally follows with Dr. Michael of our cardiology practice. The patient states he was in his normal state of health until approximately 4 days ago, he started developing some substernal pain. It was initially a sharp stabbing sensation, but it later progressed to a substernal pressure sensation. He states that the pressure would then occur anytime he exerted himself and with only minimal exertion. The patient is not significantly ambulatory to begin with, but he states even trying to get up and walk across his apartment, he would develop substernal pressure sensation and severe diaphoresis. He called his PCP on the to alert them of his discomfort and he was recommended to go to the Emergency Department. 911 was called and he was brought into the ER. His initial workup was unremarkable and he was admitted to telemetry. Of note, patient also thought this might have been an upset stomach and he tried taking Tums at home without any relief. PAST SURGICAL HISTORY: 1. Bronchoscopy. 2. Open renal calculi extraction. MEDICAL ILLNESSES: 1. Chronic respiratory failure on home O2. 2. Severe COPD. 3. Continued tobacco abuse. 4. Paroxysmal atrial fibrillation. 5. Diabetes. FAMILY HISTORY: Noncontributory. SOCIAL HISTORY: The patient is a lifelong smoker, continues to smoke on a daily basis. He drinks beer daily, usually 5. Denies any recreational drug use. He is currently not . He lives by himself. He is retired. REVIEW OF SYSTEMS: As per HPI. All other review of systems reviewed and negative at this time. ALLERGIES AN OUTPATIENT: No known drug allergies. MEDICATIONS AN OUTPATIENT: 1. Atorvastatin 40 mg daily. 2. Lisinopril 20 mg daily. 3. Lasix 20 mg daily as needed for edema. 4. Verapamil 120 mg daily. 5. Multiple inhalers. 6. Oxygen 4 liters via nasal cannula. 7. Omeprazole daily. 8. Wellbutrin b.i.d. PHYSICAL EXAMINATION: VITALS: Temperature 36.3, pulse 63, respiratory rate 12, blood pressure 101/67. GENERAL: Awake, alert, oriented x3. Mild conversational dyspnea. HEENT: Normocephalic, atraumatic. Pupils equal, round, and reactive to light and accommodation. Extraocular muscles intact. Anicteric sclerae. Moist mucous membranes. NECK: No JVD, no bruit. CARDIOVASCULAR: Regular but distant. Unable to appreciate murmurs, rubs or gallops. PULMONARY: Poor air movement bilaterally with no rales, rhonchi or wheezing. ABDOMEN: Bowel sounds x4, soft. No rebound, guarding, tenderness. No organomegaly. EXTREMITIES: No clubbing, cyanosis or edema. +2 pedal pulses bilaterally. SKIN: Warm and dry. TEST RESULTS: A 12-lead EKG performed in the Emergency Department, independently reviewed at this time shows normal sinus rhythm at 80 beats per minute, incomplete right bundle branch block, no active ischemia, no significant change compared to previous studies. A 2D echocardiogram was read as normal LV chamber size with mild concentric LVH, hyperdynamic LV systolic function, EF greater than 70%, no segmental left ventricle wall motion abnormalities are noted, grade 2 diastolic dysfunction, no significant valvular pathology, small loculated anterior pericardial effusion with stranding to suggest chronicity, unchanged compared to previous study of June 2016. IMPRESSION: 1. Chest pain. 2. Ongoing shortness of breath. 3. Chronic respiratory failure. 4. Tobacco abuse, ongoing. 5. Severe chronic obstructive pulmonary disease. 6. Hypertension. 7. Dyslipidemia. 8. Paroxysmal atrial fibrillation. RECOMMENDATIONS: It was my pleasure to see Mr. Villareal in consultation today. Given these comorbidities and his ongoing smoking, I have absolutely no doubt that he does have atherosclerotic disease; but given his ongoing symptoms, I do believe an ischemic evaluation is warranted at this time. So, patient will be monitored on telemetry and a dobutamine stress echocardiogram will be performed first thing Saturday morning, and further recommendation will be made at that time. In the meantime, he has been started on aspirin, which I agree with and should be continued on his outpatient verapamil, lisinopril and atorvastatin.
[2016-11-17] MEDS: THIAMINE HCL 100 MG TAB PO SCH (19:38)
[2016-11-17] MEDS: GABAPENTIN 600MG Q8H DOSE PO SCH (19:39)
[2016-11-18] VITALS (8 sets, daily range): BP systolic 110–139; BP diastolic 56–87; PULSE 56–84; TEMP 36.5–36.8; O2SAT 94–100
[2016-11-18] MEDS: ALBUTEROL 0.083% NEBU SOLN 3 ML VIAL INH PRN (04:28)
[2016-11-18] MEDS: HEPARIN SOD 5000 UNIT/0.5 ML CARP SQ SCH ×3 (05:07→21:07)
[2016-11-18] MEDS: LEVOTHYROXINE 50 MCG TAB PO SCH (06:06)
[2016-11-18] MEDS: GABAPENTIN 600MG Q8H DOSE PO SCH ×2 (06:06→12:18)
[2016-11-18] MEDS: ARFORMOTEROL TART 15MCG/2ML VIAL INH SCH ×2 (07:05→19:32)
[2016-11-18] MEDS: BUDESONIDE 0.5 MG/2 ML VIAL (PULMICORT) INH SCH ×2 (07:05→19:32)
[2016-11-18] MEDS: DOCUSATE SODIUM 100 MG CAP PO SCH ×2 (08:54→21:09)
[2016-11-18] MEDS: VERAPAMIL HCL 120 MG TABCR PO SCH (08:54)
[2016-11-18] MEDS: LISINOPRIL 20 MG TAB PO SCH (08:54)
[2016-11-18] MEDS: ASPIRIN 81 MG ECTAB PO SCH (08:55)
[2016-11-18] MEDS: NICOTINE 21 MG/24 HR TDSY TD SCH (08:55)
[2016-11-18] MEDS: ATORVASTATIN 40 MG TAB PO SCH (08:55)
[2016-11-18] MEDS: INSULIN ASPART 100 UNITS/ML 3 ML PEN SC SCH ×4 (08:57→21:00)
--- NOTE | 2016-11-18 12:38 | Cardiology Follow-Up ---
Subjective Subjective Date of Service: Nov 18, 2016. Pt evaluation today including: conversation w/ patient, physical exam, chart review, lab review, review of studies, review of inpatient medication list Additional Details: Pt seen and examined, states that he's feeling ok. Still dyspnic with minimal exertion: shaving. But no further chest pain. Denies palpitations, lightheadedness or dizziness. Tele reviewed: sinus rhythm without arrhythmia or significant ectopy. Problem List Medical Problems: (1) Acute bronchitis Status: Acute (2) COPD exacerbation Status: Acute (3) COPD exacerbation Status: Acute (4) COPD exacerbation Status: Acute (5) Pedal edema Status: Acute (6) Precordial chest pain Status: Acute (7) Respiratory distress Status: Acute (8) Shortness of breath Status: Acute Review of Systems Respiratory: + see HPI, + shortness of breath, + dyspnea on exertion, No cough , No sputum, No wheezing, No dyspnea at rest, No hemoptysis, No problem reported Cardiac: + see HPI, No chest pain, No orthopnea, No PND, No edema, No claudication, No palpitations, No problem reported Endo: + fatigue Objective Vital Signs Last Vital Signs Documentation Date Time Temp Pulse Resp B/P (MAP) Pulse Ox O2 Delivery O2 Flow Rate FiO2 11/18/16 12:30 Nasal Cannula 3.0 11/18/16 11:48 36.5 77 20 123/72 (89) 97 Physical Exam: General Appearance: WD/WN, no apparent distress, + pertinent finding (mild conversational dyspnea) Eyes: bilateral eyes normal inspection, bilateral eyes PERRL, bilateral eyes EOMI ENT: normal ENT inspection, hearing grossly normal, pharynx normal Neck: supple, no adenopathy, thyroid normal, no JVD, no carotid bruits, trachea midline Respiratory/Chest: no respiratory distress, no accessory muscle use, + decreased breath sounds, + rhonchi, + wheezing Cardiovascular: regular rate, rhythm, no edema, no JVD Abdomen: normal bowel sounds, non tender, soft Extremities: non-tender, normal inspection, no pedal edema, no calf tenderness Neurologic/Psychiatric: garbage person II-XII nml as tested, no motor/sensory deficits, alert, normal mood/affect, oriented x 3 Skin: normal color, warm/dry, no rash Lymphatic: no adenopathy Assessment and Plan 1. chest pain resolved ischemic work up unremarkable to this point for stress in AM 2. dyspnea severe underlying lung disease but worse from baseline stress in AM npo after midnight
[2016-11-18] MEDS: THIAMINE HCL 100 MG TAB PO SCH (17:40)
--- NOTE | 2016-11-18 19:01 | Progress Note ---
Internal Med Progress Note Date of Service: Nov 18, 2016. Provider Documentation: SUBJECTIVE: patient denies chest pain today. continues to be having shortness of breath when ambulating. denies chest pain. has cough OBJECTIVE: General Appearance: no distress when at rest on room air Head: normocephalic, atraumatic Eyes: normal inspection, sclerae normal ENT: hearing grossly normal, pharynx normal Neck: supple, trachea midline Respiratory/Chest: no accessory muscle use, no wheezing, moderate level of air entry on inspiration and expiration Cardiovascular: regular rate, rhythm, no murmur Abdomen/GI: normal bowel sounds, non tender, soft Extremities: no calf tenderness Neurologic/Psych: alert, normal mood/affect, oriented x 3 Skin: normal color, warm/dry ASSESSMENT & PLAN: Chest pain: negative troponins x 3, chest pain resolved Transthoracic Echo 11/17/16 Normal LV chamber size with midl concentric LVH. Hyperdynamic LV systolic function, EF >70%. No segmental left ventricular wall motion abnormalities are noted. Grade II diastolic dysfunction. No significant valvular pathology. Small, loculated anterior pericardial effusion with stranding to suggest chronicity. Unchanged compared to study of 06/23/16 cardiology planning to keep patient as inpatient until dobutamine stress echo can be performed, is NPO after midnight for stress test in the AM continue with aspirin, verapamil, lisinopril, and atorvastatin for cardiovascular issues including blood pressure control restart home dose lasix CHRONIC RESPIRATORY FAILURE/ COPD Continue home nebs/ inhalers On chronic Azithromycin MWF- continue Continue chronic supplemental O2 H/O PAROXYSMAL ATRIAL FIBRILLATION Not on anticoagulation Currently in NSR Continue verapamil HYPOTHYROIDISM Check TSH Continue levothyroxine DM TYPE 2 Diet controlled Novolog sliding scale while inpatient ALCOHOL USE Monitor for withdrawal Gabapentin protocol for withdrawal prevention, then resume his usual dose of gabapentin 300 mg daily history of varices? will need to have cardiac health assessed fully and respiratory symptoms stable before further workup on this issue DVT PROPHYLAXIS Heparin SQ Vital Signs: Date Time Temp Pulse Resp B/P (MAP) Pulse Ox O2 Delivery O2 Flow Rate FiO2 11/18/16 16:13 Nasal Cannula 3.0 11/18/16 14:57 36.5 65 20 112/69 (83) 98 3.0 11/18/16 12:30 Nasal Cannula 3.0 11/18/16 11:48 36.5 77 20 123/72 (89) 97 3.0 11/18/16 08:45 Nasal Cannula 3.0 11/18/16 07:41 36.5 78 18 128/56 (80) 100 3.0 11/18/16 07:05 56 18 98 Nasal Cannula 3.0 11/18/16 05:10 36.6 72 18 128/83 (98) 99 Nasal Cannula 4.0 11/18/16 04:28 84 22 99 Nasal Cannula 3.0 11/18/16 04:00 Nasal Cannula 3.0 11/18/16 00:00 Nasal Cannula 3.0 11/17/16 22:34 36.9 67 16 98/56 (70) 100 Nasal Cannula 4.0 11/17/16 20:00 Nasal Cannula 3.0 Lab Results: Results Past 24 Hours Test 11/17/16 20:26 11/18/16 07:27 11/18/16 11:34 11/18/16 16:12 Range/Units Bedside Glucose 93 113 96 103 70-99 mg/dl
[2016-11-18] MEDS ORDERED: FUROSEMIDE 20 MG TAB PO ONE (19:30)
[2016-11-18] MEDS: GABAPENTIN 600MG Q12H DOSE PO SCH (23:11)
[2016-11-19] VITALS (10 sets, daily range): BP systolic 106–149; BP diastolic 58–80; PULSE 60–77; TEMP 36.4–36.6; O2SAT 95–99
[2016-11-19] MEDS: HEPARIN SOD 5000 UNIT/0.5 ML CARP SQ SCH ×3 (05:47→20:41)
[2016-11-19] MEDS: LEVOTHYROXINE 50 MCG TAB PO SCH (06:24)
[2016-11-19] MEDS: ARFORMOTEROL TART 15MCG/2ML VIAL INH SCH ×2 (07:10→19:36)
[2016-11-19] MEDS: BUDESONIDE 0.5 MG/2 ML VIAL (PULMICORT) INH SCH ×2 (07:10→19:37)
[2016-11-19] MEDS: ALBUTEROL 0.083% NEBU SOLN 3 ML VIAL INH PRN (07:11)
[2016-11-19] MEDS: INSULIN ASPART 100 UNITS/ML 3 ML PEN SC SCH ×4 (07:50→20:42)
[2016-11-19 08:09] LABS: BASO % 0.7 %; BASO ABS # 0.05 K/uL (0-0.2); EOS % 5.8 %; HEMATOCRIT 36.1 % (42-52); IG% 0.3 %; LYMPH % 28.7 %; LYMPH ABS # 2.02 K/uL (1.2-3.4); MEAN CELL VOLUME 97.6 fL (80-100); MEAN CORPUSCULAR HEMOGLOBIN 33.5 pg (25-34); MEAN PLATELET VOLUME 11.2 fL (7.4-10.4); MONO % 10.1 %; NEUT % 54.4 %; PLATELET COUNT 142 K/uL (130-400); WHITE BLOOD COUNT 7.03 K/uL (4.8-10.8)
[2016-11-19 08:19] LABS: COMPLETE YES; MEAN CORPUSCULAR HGB CONC 34.3 g/dl (32-36)
[2016-11-19 08:40] LABS: BUN/CREATININE RATIO 16.8 (10-20); CALCIUM 9.6 mg/dl (8.5-10.1); CREATININE 1.3 mg/dl (0.60-1.40); MAGNESIUM 2.1 mg/dl (1.8-2.4); POTASSIUM 4.4 mmol/L (3.5-5.1)
[2016-11-19] MEDS: NICOTINE 21 MG/24 HR TDSY TD SCH (09:00)
[2016-11-19] MEDS: DOCUSATE SODIUM 100 MG CAP PO SCH ×2 (09:00→20:39)
[2016-11-19] MEDS ORDERED: DOBUTamine 500MG / 250ML D5W ONE (09:03)
[2016-11-19] MEDS ORDERED: METOPROLOL TARTRATE 1 MG/ML VIAL ONE (09:04)
[2016-11-19] MEDS ORDERED: ATROPINE SULFATE 0.1 MG/ML 5ML SYR ONE (09:04)
--- NOTE | 2016-11-19 10:20 | DOBUTAMINE ECHO ---
*NOTICE TO RECEIVING GREEN PARTY AGENCY This information is strictly Confidential and protected under [place] law. [place] law prohibits you from making any further disclosure of this information unless further disclosure is expressly permitted by the written consent of the person to whom it pertains or is authorized by law. A general authorization for the release of medical or other information is not sufficient for this purpose. Hospital accepts no responsibility if the information is made available to any other person, INCLUDING THE PATIENT. Interpretation Summary * Name: BRYNN QUIROGA Study Date: 11/19/2016 08:03 AM BP: 122/70 mmHg * Patient Location: [facility]\\S\\N276\\S\\1 HR: 58 * : 1950 (M/d/yyyy) Gender: Male Height: 69 in * Age: 66 yrs Ethnicity: [place] Weight: 188 lb * Ordering Physician: Naveen Buchanan DO * Referring Physician: Derrell Schmidt M.D.(SÁNCHEZ) * Performed By: Ana Almanzar * * Reason For Study: CHEST PAIN * BSA: 2.0 m2 * STRESS STUDY: Normal pharmacologic stress echocardiogram. No echocardiographic or ECG evidence of myocardial ischemia having achieved heart rate adequate for diagnostic purposes. * -- Conclusions -- * The patient had atypical chest pain throughout the study. * The stress ECG response was normal * Stress ECG: No ST changes. No arrhythmias. * STRESS STUDY: Normal pharmacologic stress echocardiogram. No echocardiographic or ECG evidence of myocardial ischemia having achieved heart rate adequate for diagnostic purposes. Procedure Details * DOBUTAMINE ECHO, CPT#15174 * A contrast injection of Definity was performed to improve assessment of LV function. * Contrast was injected into an intravenous site in the left arm. * One vial of Definity ultrasound contrast was diluted in normal saline to a total volume of 10 ml. A total of '6' ml of solution was administered during imaging. * Lot # [id number] of Definity utilized for procedure. * Expiration date 11/28. * The attending nurse who injected the contrast agent was JEAN CLAUDE MENSAH RN. Stress Parameters * Baseline ECG was essentially normal. No symptoms were noted. * The stress ECG response was normal * Stress ECG: No ST changes. No arrhythmias. * Rest heart rate was '58' BPM. * Rest blood pressure was '122/70' * Maximum heart rate achieved was 144 bpm. * Maximum heart rate was 92 % of maximum age-predicted heart rate. * Maximum blood pressure was '211/75' * Maximum Dobutamine infusion rate was '50' mcg/kg/min. * A total of 0.25 mg of intravenous Atropine was used to supplement Dobutamine for heart rate response. * Dobutamine infusion was terminated due to symptoms * A total of 5 mg of IV Metoprolol was administered to reverse Dobutamine-induced tachycardia. * The patient exhibited chest pain during exercise. * Normal blood pressure response to exercise. * The drug infusion was stopped due to chest pain. * Target heart rate achieved. Patient had heart burn and "sharp pains during the test."
--- NOTE | 2016-11-19 11:05 | CARDIOLOGY CONSULTATION ---
DATE OF CONSULTATION: 11/19/2016 FOLLOWUP VISIT SUBJECTIVE: The patient is a 66-year-old male who I follow in my clinic. He has severe tobacco associated COPD and continues to smoke cigarettes. I last saw him in September at which time he was traveling in a motorized wheelchair on chronic oxygen, but still smoking. He has had 2 previous hospital admissions this year due to COPD exacerbation. He presented this admission with chest pain and was admitted. His cardiac markers were negative. This morning he underwent a dobutamine stress echocardiogram that is low probability for coronary artery disease. This patient is not very mobile due to his underlying lung disease. I would recommend that he be discharged to outpatient followup with close supervision due to his recent multiple hospital admissions.
[2016-11-19] MEDS: ASPIRIN 81 MG ECTAB PO SCH (13:29)
[2016-11-19] MEDS: GABAPENTIN 600MG Q12H DOSE PO SCH (13:29)
[2016-11-19] MEDS: ATORVASTATIN 40 MG TAB PO SCH (13:29)
[2016-11-19] MEDS: LISINOPRIL 20 MG TAB PO SCH (13:30)
[2016-11-19] MEDS: AZITHROMYCIN 250 MG TAB PO SCH (13:30)
[2016-11-19] MEDS: VERAPAMIL HCL 120 MG TABCR PO SCH (13:31)
[2016-11-19] MEDS: FUROSEMIDE 20 MG TAB PO SCH (13:32)
[2016-11-19 14:55] LABS: ARTERIAL BLD GAS O2 SATURATION 98.3 % (90-95); ARTERIAL BLOOD GAS BASE EXCESS 9.7 mEq/L (-9-1.8); ARTERIAL BLOOD GAS HCO3 36 mmol/L (19-24); ARTERIAL BLOOD GAS PO2 118 mm/Hg (80-95); ARTERIAL BLOOD GAS pH 7.41 (7.35-7.45)
[2016-11-19 14:56] LABS: ALLEN TEST POS (POS); O2 ADMINISTRATION 3L
[2016-11-19] MEDS ORDERED: POLYETHYLENE (MIRALAX) 17 GM PACK PO PRN (16:15)
--- NOTE | 2016-11-19 18:02 | Progress Note ---
Internal Med Progress Note Date of Service: Nov 19, 2016. Provider Documentation: SUBJECTIVE: patient denies chest pain today. continues to be having shortness of breath when ambulating such as from bed to bathroom. had negative stress test. ABG sent to continue evaluation for dyspnea as cardiac issues have been evaluated. Asked for pulmonary consult to evaluate dyspnea OBJECTIVE: General Appearance: no distress when at rest on room air Head: normocephalic, atraumatic Eyes: normal inspection, sclerae normal ENT: hearing grossly normal, pharynx normal Neck: supple, trachea midline Respiratory/Chest: no accessory muscle use, no wheezing, moderate level of air entry on inspiration and expiration Cardiovascular: regular rate, rhythm, no murmur Abdomen/GI: normal bowel sounds, non tender, soft Extremities: no calf tenderness Neurologic/Psych: alert, normal mood/affect, oriented x 3 Skin: normal color, warm/dry ASSESSMENT & PLAN: Chest pain: negative troponins x 3, chest pain resolved Transthoracic Echo 11/17/16 Normal LV chamber size with midl concentric LVH. Hyperdynamic LV systolic function, EF >70%. No segmental left ventricular wall motion abnormalities are noted. Grade II diastolic dysfunction. No significant valvular pathology. Small, loculated anterior pericardial effusion with stranding to suggest chronicity. Unchanged compared to study of 06/23/16 dobutamine stress echocardiogram 11/19/16 that is low probability for coronary artery disease continue with aspirin, verapamil, lisinopril, and atorvastatin for cardiovascular issues including blood pressure control continue home dose lasix CHRONIC RESPIRATORY FAILURE/ COPD Continue home nebs/ inhalers On chronic Azithromycin MWF- continue Continue chronic supplemental O2 ABG obtained, had requested that ABG be done on room air, appears to have been obtained on 3 liters/min nasal cannula pulmonary consult placed H/O PAROXYSMAL ATRIAL FIBRILLATION Not on anticoagulation Currently in NSR Continue verapamil HYPOTHYROIDISM Continue levothyroxine DM TYPE 2 Diet controlled Novolog sliding scale while inpatient ALCOHOL USE Monitor for withdrawal Gabapentin protocol for withdrawal prevention, then resume his usual dose of gabapentin 300 mg daily history of varices? will need to have cardiac health assessed fully and respiratory symptoms stable before further workup on this issue DVT PROPHYLAXIS Heparin SQ Vital Signs: Date Time Temp Pulse Resp B/P (MAP) Pulse Ox O2 Delivery O2 Flow Rate FiO2 11/19/16 16:00 Nasal Cannula 3.0 11/19/16 15:42 36.4 61 18 106/58 (74) 99 Nasal Cannula 3.0 11/19/16 12:00 95 Nasal Cannula 3.0 11/19/16 11:25 36.4 72 16 129/80 (96) 95 Nasal Cannula 3.0 11/19/16 08:00 96 Nasal Cannula 3.0 11/19/16 07:22 36.6 66 16 134/79 (97) 96 Nasal Cannula 3.0 11/19/16 07:11 77 18 98 Nasal Cannula 3.0 11/19/16 04:32 36.6 60 17 149/74 (99) 98 Nasal Cannula 3.0 11/19/16 04:00 Nasal Cannula 3.0 11/19/16 00:09 36.6 63 18 138/60 (86) 98 Nasal Cannula 3.0 11/19/16 00:00 Nasal Cannula 3.0 11/18/16 20:04 36.7 67 18 139/87 (104) 98 Nasal Cannula 3.0 11/18/16 20:00 Nasal Cannula 3.0 11/18/16 19:34 66 18 99 Nasal Cannula 3.0 Lab Results: Results Past 24 Hours Test 11/18/16 20:28 11/19/16 07:33 11/19/16 07:52 11/19/16 11:35 Range/Units Bedside Glucose 118 91 89 70-99 mg/dl White Blood Count 7.03 4.8-10.8 K/uL Red Blood Count 3.70 4.7-6.1 M/uL Hemoglobin 12.4 14.0-18.0 g/dL Hematocrit 36.1 42-52 % Mean Corpuscular Volume 97.6 80-100 fL Mean Corpuscular Hemoglobin 33.5 25-34 pg Mean Corpuscular Hemoglobin Concent 34.3 32-36 g/dl Platelet Count 142 130-400 K/uL Mean Platelet Volume 11.2 7.4-10.4 fL Neutrophils (%) (Auto) 54.4 % Lymphocytes (%) (Auto) 28.7 % Monocytes (%) (Auto) 10.1 % Eosinophils (%) (Auto) 5.8 % Basophils (%) (Auto) 0.7 % Neutrophils # (Auto) 3.82 1.4-6.5 K/uL Lymphocytes # (Auto) 2.02 1.2-3.4 K/uL Monocytes # (Auto) 0.71 0.11-0.59 K/uL Eosinophils # (Auto) 0.41 0-0.5 K/uL Basophils # (Auto) 0.05 0-0.2 K/uL RDW Standard Deviation 43.8 36.4-46.3 fL RDW Coefficient of Variation 12.3 11.5-14.5 % Immature Granulocyte % (Auto) 0.3 % Immature Granulocyte # (Auto) 0.02 0.00-0.02 K/uL Sodium Level 141 136-145 mmol/L Potassium Level 4.4 3.5-5.1 mmol/L Chloride Level 101 98-107 mmol/L Carbon Dioxide Level 38 21-32 mmol/L Anion Gap 2.0 3-11 mmol/L Blood Urea Nitrogen 22 7-18 mg/dl Creatinine 1.30 0.60-1.40 mg/dl Est Creatinine Clear Calc Drug Dose 57.4 ml/min Estimated GFR () 66.8 Estimated GFR (Non- 57.7 BUN/Creatinine Ratio 16.8 11-30 Random Glucose 96 70-99 mg/dl Calcium Level 9.6 8.5-10.1 mg/dl Magnesium Level 2.1 1.8-2.4 mg/dl Total Bilirubin 0.3 0.2-1 mg/dl Aspartate Amino Transf (AST/SGOT) 34 15-37 U/L Alanine Aminotransferase (ALT/SGPT) 43 12-78 U/L Alkaline Phosphatase 111 45-117 U/L Total Protein 6.5 6.4-8.2 gm/dl Albumin 3.2 3.4-5.0 gm/dl Globulin 3.3 2.5-4.0 gm/dl Albumin/Globulin Ratio 1.0 0.9-2 Test 11/19/16 14:34 11/19/16 16:43 Range/Units Arterial Blood pH 7.41 7.35-7.45 Arterial Blood Partial Pressure CO2 58 35-46 mmHg Arterial Blood Partial Pressure O2 118 80-95 mm/Hg Arterial Blood HCO3 36 19-24 mmol/L Arterial Blood Oxygen Saturation 98.3 90-95 % Arterial Blood Base Excess 9.7 -9-1.8 mEq/L Arterial Blood Gas Delivery 3L Hussein Test POS POS Bedside Glucose 99 70-99 mg/dl
[2016-11-19] MEDS: THIAMINE HCL 100 MG TAB PO SCH (19:23)
[2016-11-20] VITALS (8 sets, daily range): BP systolic 98–131; BP diastolic 61–77; PULSE 57–71; TEMP 36.4–36.6; O2SAT 94–100
[2016-11-20] MEDS: HEPARIN SOD 5000 UNIT/0.5 ML CARP SQ SCH ×3 (05:52→20:33)
[2016-11-20] MEDS: LEVOTHYROXINE 50 MCG TAB PO SCH (05:53)
[2016-11-20] MEDS: ARFORMOTEROL TART 15MCG/2ML VIAL INH SCH ×2 (07:27→19:28)
[2016-11-20] MEDS: BUDESONIDE 0.5 MG/2 ML VIAL (PULMICORT) INH SCH ×2 (07:27→19:29)
[2016-11-20] MEDS: FUROSEMIDE 20 MG TAB PO SCH (08:15)
[2016-11-20] MEDS: ASPIRIN 81 MG ECTAB PO SCH (08:15)
[2016-11-20] MEDS: LISINOPRIL 20 MG TAB PO SCH (08:15)
[2016-11-20] MEDS: ATORVASTATIN 40 MG TAB PO SCH (08:16)
[2016-11-20] MEDS: NICOTINE 21 MG/24 HR TDSY TD SCH (08:16)
[2016-11-20] MEDS: DOCUSATE SODIUM 100 MG CAP PO SCH ×2 (08:16→20:32)
[2016-11-20] MEDS: VERAPAMIL HCL 120 MG TABCR PO SCH (08:17)
[2016-11-20] MEDS: INSULIN ASPART 100 UNITS/ML 3 ML PEN SC SCH ×5 (08:21→22:00)
--- NOTE | 2016-11-20 10:31 | Pulmonary Consultation ---
History General Date of Service: Nov 20, 2016. Stated Complaint: Chest Pain HPI The patient is a 66 year old male who presents to [facility] with complaints of Chest Pain. The patient's primary care provider is Derrell Schmidt M.D.(SÁNCHEZ). Mr. Villareal is a 66-year-old gentleman with history of severe COPD (FEV1 19%), long-term oxygen therapy at 3 L and chronic azithromycin (Saturday), chronic tobacco user with 40 pack year history, paroxysmal atrial fibrillation who presents to the ER on 11/16/2016 with complaints of 4 day history of intermittent substernal chest pain/pressure exacerbated with movement and activity. Episodes last usually about 30 minutes and improved with rest. He tried Tums without relief. Per patient he has chronic shortness of breath worse with dyspnea on exertion. His exercise tolerance is_and unchanged., His normal sputum production is white to yellow in color which is also unchanged. He denies any fevers, chills, palpitations, hemoptysis, recent travel or sick contacts. He denies any orthopnea,paroxysmal nocturnal dyspnea, lower extremity pain, but does admit to chronic lower extremity swelling. He denies any GI or genitourinary symptoms. He also has history of chronic rhinitis and sinusitis. He follows with Dr. Abbasi at the [facility] pulmonary group. His last PFT showed severe obstructive ventilatory defect. This is significant bronchodilator response. Lung volumes demonstrate air trapping and hyperinflation. DLCO was moderately reduced. He was started in the pulmonary rehabilitation program in June 2015. His last admission was in June 2016. At that time he did have CT chest which showed subcentimeter nodules at the right base with emphysematous changes. It was also notable for a scarlike density was in the right lung apex. His current respiratory medications include Brovana 15 g inhaler twice a day, azithromycin 250 mg Saturday, budesonide nebulizer twice a day, albuterol 2 puffs 4 times a day, albuterol nebulizer every 4 hours when necessary shortness of breath, Combivent Respimat every 4 hours when necessary. Her In the ER his initial vital signs were 36.5, pulse 84, respiratory rate 28, blood pressure 91/63, 96% on room air. At the time of his evaluation in the ER he was pain-free. His respiratory exam was significant for scattered rhonchi. He was also noted to have 2+ bilateral edema. Initial chest x-ray on 2015 showed moderate to severe emphysema with hyperinflation of the lungs, unchanged biapical pleural parenchymal scarring greater on the right than left. No pneumothorax or pleural effusion. No evidence of pulmonary edema. Initial laboratory data showed a white blood cell count of 8.43, hemoglobin of 13/hematocrit 37.3, platelet 155. Chemistry was significant for a creatinine of 1.2 and glucose of 112. Lactic acid was 6.7. Troponin 0.023. Initial EKG on 11/16/2016 showed normal sinus rhythm 80 bpm with no ischemic changes. He was admitted to rule out ACS. He was continued on Combivent Respimat, Brovana 15 g nebulized twice a day, Pulmicort 0.5 mg twice a day, azithromycin 250 mg on Saturday, Saturday, and Saturday schedule as well as nicotine patch. Blood culture from 11/16/2016 showed no growth to date. He will he was also continued on Lasix 20 mg every morning by mouth. Echocardiogram from 09/05/2016 showed greater diastolic dysfunction with an EF 70% with a small chronic loculated anterior pericardial effusion. He was transferred to the telemetry on 11/18/2016 on 4-6 L nasal cannula with O2 saturation between 92-95%, with BiPAP at night. Patient had just stress echocardiogram done on 11/19/2016 that showed no echographic or ECG evidence of myocardial ischemia. ABG from 11/19/2016 showed 7.41/58/118/36/98.3% on 3L. Historian: patient, other (EMR) Onset: just prior to arrival Severity: moderate Complaint Status: improved, intermittent Review of Systems Constitutional: reports: as stated in HPI Eyes: reports: as stated in HPI ENT: reports: as stated in HPI Cardiovascular: reports: as stated in HPI Respiratory: reports: as stated in HPI Gastrointestinal: reports: as stated in HPI Genitourinary - Male: reports: as stated in HPI Musculoskeletal: reports: as stated in HPI Integumentary: reports: as stated in HPI Neurologic: reports: as stated in HPI Psychiatric: reports: as stated in HPI Endocrine: as stated in HPI Hematologic / Lymphatic: as stated in HPI (past) Allergic / Immunologic: as stated in HPI Past Medical History Past Medical History: Very severe COPD with FEV1 of about 19% from January 2015. (Enrolled in pulmonary rehabilitation program in June 2015. Oximetry from March 2012 showed SaO2 equal 88% was greater than 40 seconds ACOS, with FEV1 of 0.67/19% with a postbronchodilator response of 0.9/27% O2 dependent on 2.5 L) MIRANDA Tobacco use disorder Diabetes type 2 Hypothyroidism Hypertension number colonic polyps Depression Past Medical History: COPD, diabetes, hypothyroidism, other Past Surgical History: Urology procedure Bronchoscopy Colonoscopy/polypectomy PTCA in March 2008 Past Surgical History: other Family History Cancer Diabetes mellitus Kidney disease Kidney stones Lung disease Cancer, diabetes, kidney disease, lung disease Social History He is a current everyday smoker. PPD 40 pack years Alcohol socially, lives alone and is retired. Hx Tobacco Use In Past Year?: Yes Smoking Status: Current Every Day Smoker Alcohol: socially, daily, other Drug Use: none Marital status: single Housing status: lives alone Occupational Status: retired Immunizations History of Influenza Vaccine: N/A History of Tetanus Vaccine?: Yes Tetanus Immunization Date: Jul 17, 2010 History of Pneumococcal: Yes Pneumococcal Date: Dec 06, 2008 History of Hepatitis B Vaccine: No History of MDRO History of MDRO: No Allergies Coded Allergies: Poultry Meal (Verified Allergy, Intermediate, TURKEY - HIVES, RASH, NAUSEA , 11/16/16) NOT CHICKEN, ONLY TURKEY Current Medications Reported Home Medications Medications Dose Route/Sig Max Daily Dose Days Date Category Dose Instructions Viagra (Sildenafil Citrate) 100 Mg Tab 100 Mg PO PRN 11/16/16 Reported Colace (Docusate Sodium) 100 Mg Cap PO BID 15 11/16/16 Reported Budesonide 0.5 Mg/2 Ml Nebu 1 Vial NEB BID 30 11/16/16 Reported Brovana (Arformoterol Tartrate) 15 Mcg/2 Ml Neb 15 Mcg INH BID 11/16/16 Reported Lasix (Furosemide) 20 Mg Tab 20 Mg PO DAILY 11/16/16 Reported Proventil 0.083% 2.5MG/3ML (Albuterol Sulf) 2.5 Mg/3 Ml Nebu 2.5 Mg INH QID PRN 07/14/16 Reported Zithromax (Azithromycin) 250 Mg Tab 250 Mg PO MWF 07/14/16 Reported Prinivil (Lisinopril) 20 Mg Tab 1 Tab PO DAILY 30 06/30/16 Rx Ventolin Hfa (Albuterol) 200 Puffs/41827 Mcg Aers 2 Puffs PO QID PRN 06/22/16 Reported Atorvastatin Calcium (Atorvastatin) 40 Mg Tab 40 Mg PO DAILY 06/22/16 Reported Combivent Respimat (Ipratropium-Albuterol) 1 Aer Aer 2 Puffs PO Q6 PRN 04/27/16 Reported Calan Sr Ext Rel (Verapamil HCl) 120 Mg Tabcr 120 Mg PO DAILY 07/19/12 Rx Synthroid (Levothyroxine Sodium) 50 Mcg Tab 50 Mcg PO DAILY 03/10/12 Reported TAKE FIRST THING IN THE MORNING. AT LEAST 30 MINUTES BEFORE BREAKFAST. Oxygen Gas 3 Liters NA CONTINOUS 06/14/11 Reported Neurontin (Gabapentin) 300 Mg Cap 300 Mg PO QAM 06/14/11 Reported Physical Physical Exam Vital Signs: Date Time Temp Pulse Resp B/P (MAP) Pulse Ox O2 Delivery O2 Flow Rate FiO2 11/20/16 07:31 67 19 97 Nasal Cannula 3.0 11/20/16 07:21 36.4 61 18 120/65 (83) 97 3.0 11/20/16 04:00 36.6 57 18 98/61 (73) 100 2.0 11/20/16 04:00 Nasal Cannula 3.0 11/20/16 00:05 36.4 71 22 104/65 (78) 95 Nasal Cannula 3.0 11/20/16 00:00 Nasal Cannula 3.0 11/19/16 20:20 36.5 63 18 115/70 (85) 97 3.0 11/19/16 20:00 Nasal Cannula 3.0 11/19/16 19:37 72 18 97 Nasal Cannula 3.0 11/19/16 16:00 Nasal Cannula 3.0 11/19/16 15:42 36.4 61 18 106/58 (74) 99 Nasal Cannula 3.0 11/19/16 12:00 95 Nasal Cannula 3.0 11/19/16 11:25 36.4 72 16 129/80 (96) 95 Nasal Cannula 3.0 General Appearance: NO APPARENT DISTRESS Head: NORMOCEPHALIC, ATRAUMATIC Eyes: PERRLA, NO DISCHARGE, EOMI, SCLERAE NORMAL ENT: NORMAL NASAL EXAM, NORMAL MOUTH EXAM Neck: NORMAL RANGE OF MOTION, NO TENDERNESS (he) Respiratory: other (decreased breath sounds bilaterally) Cardiovasular: REGULAR RATE/RHYTHM, NORMAL S1S2 (1) Abdomen: NON TENDER, NORMAL BOWEL SOUNDS, NO REBOUND Genitourinary - Male: EXTERNAL GENITALIA NORMAL Back: NORMAL INSPECTION, NO MIDLINE TENDERNESS, NO CVA TENDERNESS Upper Extremities: NO EDEMA, NO DEFORMITY (no clubbing or cyanosis) Lower Extremities: edema Edema: Bilateral LE (2+) Pulses: dorsalis pedis (R) (1+), dorsalis pedis (L) (1+) Neuro: ALERT, ORIENTED x 3 Reflexes: triceps (L) Diagnostics Labs Results Past 24 Hours Test 11/19/16 11:35 11/19/16 14:34 11/19/16 16:43 11/19/16 20:10 Range/Units Bedside Glucose 89 99 88 70-99 mg/dl Arterial Blood pH 7.41 7.35-7.45 Arterial Blood Partial Pressure CO2 58 35-46 mmHg Arterial Blood Partial Pressure O2 118 80-95 mm/Hg Arterial Blood HCO3 36 19-24 mmol/L Arterial Blood Oxygen Saturation 98.3 90-95 % Arterial Blood Base Excess 9.7 -9-1.8 mEq/L Arterial Blood Gas Delivery 3L Hussein Test POS POS Diagnostic Radiology Dobutamine echo 11/19/2016 -- Conclusions -- * The patient had atypical chest pain throughout the study. * The stress ECG response was normal * Stress ECG: No ST changes. No arrhythmias. * STRESS STUDY: Normal pharmacologic stress echocardiogram. No echocardiographic or ECG evidence of myocardial ischemia having achieved heart rate adequate for diagnostic purposes. TTE 11/17/2016 * -- Conclusions -- * Normal LV chamber size with mildl concentric LVH. * Hyperdynamic LV systolic function, EF >70%. * No segmental left ventricular wall motion abnormalities are noted. * Grade II diastolic dysfunction. * No significant valvular pathology. * Small, loculated anterior pericardial effusion with stranding to suggest chronicity. Unchanged compared to study of Impression Assessment and Plan Severe COPD Diastolic dysfunction Chronic hypoxic and hypercapnic respiratory failure History of MIRANDA Tobacco use disorder Patient admitted for intermittent substernal chest pain. Troponin negative EKG and stress to do an echo is negative for ischemic changes. Patient has history of COPD, is still a current smoker on long-term oxygen therapy and chronic azithromycin for anti-inflammatory action. ABG suggestive of chronic Respiratory failure. CO2 = 58. His last PFT is suggestive of significant amount of air trapping which can cause increased dyspnea. He as been enrolled in pulmonary rehabilitation program. At the current time I would continue the current management. Continue supplemental oxygen Co to maintain SaO2 between 80-92%. Patient does qualify for BiPAP with a PCO2 58 mmgHg, Continue with azithromycin Saturday Continue with Brovana 15 g and Pulmicort twice a day Continue with albuterol and Combivent when necessary Smoking cessation counseling provided, continue with nicotine patch. Continue with Lasix as he does have a component of diastolic dysfunction which may be worsening his dyspnea. TTE shows no signs of right heart failure. He should follow with pulmonary upon discharge. I will ad Crispin respimat to his current management.
[2016-11-20] MEDS ORDERED: GABAPENTIN 600MG X1 DOSE PO SCH (12:00)
[2016-11-20] MEDS: THIAMINE HCL 100 MG TAB PO SCH (19:47)
--- NOTE | 2016-11-20 20:09 | Progress Note ---
Internal Med Progress Note Date of Service: Nov 20, 2016. Provider Documentation: SUBJECTIVE: resting comfortably says he ambulated fine 'sob improving no chest pain afebrile want to go home OBJECTIVE: Vital Signs-as noted below Exam: General-alert and awake. Not in distress Neck-no neck masses Lungs-cta b/l no wheezing or crackles Heart-s1 and s2 heard regular rate and rhythm no murmurs Abdomen-soft bowel sounds present non tender no distension Extremities-no edema or erythema Neuro-alert and awake moves extremities Lab data as noted below. ASSESSMENT & PLAN: Chest pain: negative troponins x 3, chest pain resolved echo no new changes dobutamine stress echocardiogram 11/19/16- low probability for coronary artery disease To continue with aspirin, verapamil, lisinopril, and atorvastatin currently asymptomatic Chronic diastolic chf continue home dose Lasix and lisinopril. CHRONIC RESPIRATORY FAILURE/ COPD Continue home nebs/ inhalers On chronic Azithromycin MWF- continue Continue chronic supplemental O2 appreciate pulmonary inputs qualifies fore home bipap H/O PAROXYSMAL ATRIAL FIBRILLATION Not on anticoagulation Currently in NSR Continue verapamil HYPOTHYROIDISM Continue levothyroxine DM TYPE 2 Diet controlled Novolog sliding scale while inpatient ALCOHOL USE Monitor for withdrawal Gabapentin protocol for withdrawal prevention, then resume his usual dose of gabapentin 300 mg daily history of varices? will need to have cardiac health assessed fully and respiratory symptoms stable before further workup on this issue DVT PROPHYLAXIS Heparin SQ DISPOSITION possible d/c in am if stable Vital Signs: Date Time Temp Pulse Resp B/P (MAP) Pulse Ox O2 Delivery O2 Flow Rate FiO2 11/20/16 19:29 63 16 98 Nasal Cannula 3.0 11/20/16 19:04 36.4 64 22 130/77 (94) 94 Nasal Cannula 3.0 11/20/16 15:30 Nasal Cannula 3.0 11/20/16 15:08 36.5 61 18 131/76 (94) 97 3.0 11/20/16 08:00 97 Nasal Cannula 3.0 11/20/16 07:31 67 19 97 Nasal Cannula 3.0 11/20/16 07:21 36.4 61 18 120/65 (83) 97 3.0 11/20/16 04:00 36.6 57 18 98/61 (73) 100 2.0 11/20/16 04:00 Nasal Cannula 3.0 11/20/16 00:05 36.4 71 22 104/65 (78) 95 Nasal Cannula 3.0 11/20/16 00:00 Nasal Cannula 3.0 11/19/16 20:20 36.5 63 18 115/70 (85) 97 3.0 Lab Results: Results Past 24 Hours Test 11/19/16 20:10 11/20/16 07:35 11/20/16 11:40 11/20/16 16:30 Range/Units Bedside Glucose 88 104 94 102 70-99 mg/dl Test 11/20/16 18:56 Range/Units Bedside Glucose 142 70-99 mg/dl
[2016-11-21 00:11] VITALS: BP 146/81; PULSE 64; TEMP 36.7; O2SAT 99
[2016-11-21] MEDS: HEPARIN SOD 5000 UNIT/0.5 ML CARP SQ SCH ×2 (05:54→13:06)
[2016-11-21] MEDS: LEVOTHYROXINE 50 MCG TAB PO SCH (05:54)
[2016-11-21 07:33] VITALS: BP 119/76; PULSE 78; TEMP 36.5; O2SAT 97
[2016-11-21] MEDS: NICOTINE 21 MG/24 HR TDSY TD SCH (08:00)
[2016-11-21 08:14] VITALS: PULSE 67; O2SAT 97
[2016-11-21] MEDS: ARFORMOTEROL TART 15MCG/2ML VIAL INH SCH (08:14)
[2016-11-21] MEDS: BUDESONIDE 0.5 MG/2 ML VIAL (PULMICORT) INH SCH (08:14)
[2016-11-21] MEDS: LISINOPRIL 20 MG TAB PO SCH (08:52)
[2016-11-21] MEDS: ATORVASTATIN 40 MG TAB PO SCH (08:52)
[2016-11-21] MEDS: ASPIRIN 81 MG ECTAB PO SCH (08:52)
[2016-11-21] MEDS: DOCUSATE SODIUM 100 MG CAP PO SCH (08:52)
[2016-11-21] MEDS: AZITHROMYCIN 250 MG TAB PO SCH (08:53)
[2016-11-21] MEDS: FUROSEMIDE 20 MG TAB PO SCH (08:53)
[2016-11-21] MEDS: VERAPAMIL HCL 120 MG TABCR PO SCH (08:53)
[2016-11-21] MEDS: INSULIN ASPART 100 UNITS/ML 3 ML PEN SC SCH ×2 (09:01→12:57)
[2016-11-21] MEDS ORDERED: MULT-1042 PO (14:14)
[2016-11-21] MEDS ORDERED: THIA50TA3 PO (14:14)
[2016-11-21] MEDS ORDERED: GLC500 PO (14:14)
--- NOTE | 2016-11-21 14:18 | Discharge Instructions ---
Discharge Instructions Date of Service Nov 21, 2016. Admission Reason for Admission: Chest Pain Discharge Discharge Diagnosis / Problem: chest pain, diabetes Discharge Goals Goal(s): Decrease discomfort, Improve function Activity Recommendations Activity Limitations: resume your previous activity . Instructions / Follow-Up Instructions / Follow-Up FOLLOWUP WITH FAMILY DOCTOR ON Nov AT 11:05AM. KINDLY TRY TO KEEP APPOINTMENT WITH PULMONARY TOMORROW SCHEDULED. TO CHECK FOR QUALIFICATION OF BIPAP WITH PULMONARY. FOLLOWUP WITH FAMILY DOCTOR FOR DIABETES. HBA1C LEVEL 7.0 STRONGLY ADVICE FOR SMOKING AND ALCOHOL CESSATION. Current Hospital Diet Patient's current hospital diet: AHA Diet (Heart Healthy), Diabetes Type 2 Diet Discharge Diet Recommended Diet: AHA Diet (Heart Healthy), Diabetes Type 2 Diet Pending Studies Studies pending at discharge: no Laboratory Results Hemoglobin A1c Test 11/17/16 01:37 Range/Units Estimated Average Glucose 154 mg/dl Hemoglobin A1c 7.0 H 4.5-5.6 % Medical Emergencies . Who to Call and When: Medical Emergencies: If at any time you feel your situation is an emergency, please call 911 immediately. . Non-Emergent Contact Non-Emergency issues call your: Primary Care Provider . . "Provider Documentation" section prepared by Chapincito Diamond. . VTE Core Measure Inpt VTE Proph given/why not?: Unfractionated heparin SQ
[2016-11-21 14:19] VITALS: BP 119/76; PULSE 67; TEMP 36.5; O2SAT 97
--- NOTE | 2016-11-21 18:51 | Progress Note ---
Internal Med Progress Note Date of Service: Nov 21, 2016. Provider Documentation: SUBJECTIVE: patient dressed up and want to leave requested one more day to complete nocturnal pulse ox study to see if the darcy qualifies for bipap but darcy refused to stay and says he already went through that process and did not qualify and he wants to go home ambulated ok denies sob afebrile OBJECTIVE: Vital Signs-as noted below Exam: General-alert and awake. Not in distress Neck-no neck masses Lungs-cta b/l no wheezing or crackles Heart-s1 and s2 heard regular rate and rhythm no murmurs Abdomen-soft bowel sounds present non tender no distension Extremities-no edema or erythema Neuro-alert and awake moves extremities Lab data as noted below. ASSESSMENT & PLAN: Chest pain: negative troponins x 3, chest pain resolved echo no new changes dobutamine stress echocardiogram 11/19/16- low probability for coronary artery disease To continue with aspirin, verapamil, lisinopril, and atorvastatin currently asymptomatic Chronic diastolic chf continue home dose Lasix and lisinopril. CHRONIC RESPIRATORY FAILURE/ COPD Continue home nebs/ inhalers On chronic Azithromycin MWF- continue Continue chronic supplemental O2 appreciate pulmonary inputs based on abg qualifies for bipap but needs to complete nocturnal pulse ox study on current 3lts oxygen but darcy refused to stay and says he already went through the process and did not qualified for it advised to keep up the appointment with his pulmonary. H/O PAROXYSMAL ATRIAL FIBRILLATION Not on anticoagulation Currently in NSR Continue verapamil HYPOTHYROIDISM Continue levothyroxine DM TYPE 2 Diet controlled Novolog sliding scale while inpatient hba1c 7.0 followup with pcp ALCOHOL USE Monitor for withdrawal Gabapentin protocol for withdrawal prevention, then resume his usual dose of gabapentin 300 mg daily history of varices? will need to have cardiac health assessed fully and respiratory symptoms stable before further workup on this issue discharged home Vital Signs: Date Time Temp Pulse Resp B/P (MAP) Pulse Ox O2 Delivery O2 Flow Rate FiO2 11/21/16 14:19 36.5 67 16 97 Nasal Cannula 11/21/16 08:14 67 16 97 Nasal Cannula 3.0 11/21/16 08:00 Nasal Cannula 3.0 11/21/16 07:33 36.5 78 24 119/76 (90) 97 Nasal Cannula 3.0 11/21/16 00:11 36.7 64 22 146/81 (102) 99 Nasal Cannula 3.0 11/20/16 23:59 Nasal Cannula 3.0 11/20/16 19:29 63 16 98 Nasal Cannula 3.0 11/20/16 19:04 36.4 64 22 130/77 (94) 94 Nasal Cannula 3.0 Lab Results: Results Past 24 Hours Test 11/20/16 18:56 11/20/16 20:22 11/21/16 07:41 11/21/16 11:35 Range/Units Bedside Glucose 142 87 101 77 70-99 mg/dl
--- NOTE | 2016-11-21 18:54 | Discharge Summary ---
Discharge Summary Date of Service Nov 21, 2016. Discharge Summary Admission Date: Nov 19, 2016 at 21:01 Discharge Date: Nov 21, 2016 Discharge Disposition: Home with services Principal Diagnosis: CHEST PAIN CHRONIC RESP FAILURE DM Secondary Diagnoses/Problems: 1) BPH (benign prostatic hyperplasia) Status: Chronic (2) Chronic respiratory failure Status: Chronic (3) COPD (chronic obstructive pulmonary disease) Status: Chronic (4) Depression Status: Chronic (5) Diab Willa Wo Compl, Type Ii Or Unspec Type, Not Uncntrld Status: Chronic (6) Esophageal stenosis Permanent Comment: s/p dilation June 2016 Status: Chronic (7) GERD (gastroesophageal reflux disease) Status: Chronic (8) Hypothyroidism Status: Chronic (9) Superficial thrombophlebitis Permanent Comment: 2009 Status: Chronic (10) TIA (transient ischemic attack) Permanent Comment: 1982 Status: Chronic Procedures: CXR: 1. No acute cardiopulmonary process. 2. Moderate to severe emphysema with unchanged biapical pleural-parenchymal scarring, right greater than left. ECHO: * Normal LV chamber size with midl concentric LVH. * Hyperdynamic LV systolic function, EF >70%. * No segmental left ventricular wall motion abnormalities are noted. * Grade II diastolic dysfunction. * No significant valvular pathology. * Small, loculated anterior pericardial effusion with stranding to suggest chronicity. Unchanged compared to study of 06/23/16. * * S/P DOBUTAMINE STRESS ECHO: UNREMARKABLE Consultations: CARDIOLOGY PULMONARY Medication Reconciliation New Medications: Multiple Vitamins W/ Minerals (Multi Vitamin and Mineral) 1 Tab Tab 1 TAB PO DAILY, #30 1 Refill Thiamine Hcl (Vitamin B-1) 50 Mg Tab 50 MG PO DAILY for 30 Days, TAB Continued Medications: Albuterol Hfa (Ventolin Hfa) 200 Puffs/29801 Mcg Aers 2 PUFFS PO QID PRN for Shortness of Breath, #18 Albuterol Sulf (Proventil 0.083% 2.5MG/3ML) 2.5 Mg/3 Ml Nebu 2.5 MG INH QID PRN for SOB/Wheezing, EA Arformoterol Tartrate (Brovana) 15 Mcg/2 Ml Neb 15 MCG INH BID, INHALER Atorvastatin (Atorvastatin Calcium) 40 Mg Tab 40 MG PO DAILY, #30 Azithromycin (Zithromax) 250 Mg Tab 250 MG PO MWF, #4 TAB Budesonide (Budesonide) 0.5 Mg/2 Ml Nebu 1 VIAL NEB BID for 30 Days, #120 ML 3 Refills Docusate Sodium (Colace) 100 Mg Cap PO BID for 15 Days, CAP Furosemide (Lasix) 20 Mg Tab 20 MG PO DAILY, TAB Gabapentin (Neurontin) 300 Mg Cap 300 MG PO QAM, 0 Refills Home O2 Therapy (Oxygen) Gas 3 LITERS NA CONTINOUS Ipratropium-Albuterol (Combivent Respimat) 1 Aer Aer 2 PUFFS PO Q6 PRN for SOB/Wheezing, #4 Levothyroxine Sodium (Synthroid) 50 Mcg Tab 50 MCG PO DAILY TAKE FIRST THING IN THE MORNING. AT LEAST 30 MINUTES BEFORE BREAKFAST. Lisinopril (Prinivil) 20 Mg Tab 1 TAB PO DAILY for 30 Days, #30 TAB 0 Refills Sildenafil Citrate (Viagra) 100 Mg Tab 100 MG PO PRN, TAB Verapamil Sust Rel (Calan Sr Ext Rel) 120 Mg Tabcr 120 MG PO DAILY, #30 TAB 2 Refills Admission Information HPI (per Admitting provider): This is a 66 y/o male with PMH of severe COPD on chronic O2 and chronic Azithromycin, continued tobacco abuse, DM type 2, paroxysmal atrial fibrillation , and other problems listed below who presents to the ED with chest pain. Patient states pain started 4 days ago. Has intermitted episodes of substernal pain "jabbing" or "pressure" exacerbated by movement/ activity. Episodes last 30 minutes and improve with rest. No radiation of pain but has associated left arm tingling. He reports associated diaphoresis and lightheadedness. Denies relation to eating or swallowing. Tried Tums at home without relief. Called PCP today and was instructed to call 911. Transported to ER by ambulance. Currently chest pain free. Has chronic cough. Producing yellow sputum. Has chronic MCGILL, denies worsening from baseline. Has chronic bilat LE edema- unchanged. Has chronic bilateral calf pain. Denies orthopnea, dyspnea at rest, abdominal pain, reflux, N/V/D, dysuria. No hx of abnormal bleeding. States he was on blood thinner years ago for blood clot in leg- superficial thrombophlebitis as per hospital notes. Not on anticoagulation currently. No hx of CAD. Followed by Dr. Michael for cardiology. Physical Exam (per Admitting): General Appearance: WD/WN, no apparent distress, + pertinent finding (alert cooperative 66 year old male) Head: normocephalic, atraumatic Eyes: normal inspection, sclerae normal ENT: hearing grossly normal, pharynx normal Neck: supple, trachea midline Respiratory/Chest: no accessory muscle use, + wheezing (expiratory wheezing throughout), + pertinent finding (dyspnea with minimal exertion (changing position in bed), resolves with rest) Cardiovascular: regular rate, rhythm, no murmur Abdomen/GI: normal bowel sounds, non tender, soft Extremities/Musculoskelatal: no calf tenderness, + pertinent finding (1+ pretibial edema bilaterally- chronic. anterior lower legs tender to palpation bilaterally. ) Neurologic/Psych: alert, normal mood/affect, oriented x 3 Skin: normal color, warm/dry Hospital Course Chest pain: negative troponins x 3, chest pain resolved echo no new changes dobutamine stress echocardiogram 11/19/16- low probability for coronary artery disease To continue with aspirin, verapamil, lisinopril, and atorvastatin currently asymptomatic Chronic diastolic chf continue home dose Lasix and lisinopril. CHRONIC RESPIRATORY FAILURE/ COPD Continue home nebs/ inhalers On chronic Azithromycin MWF- continue Continue chronic supplemental O2 appreciate pulmonary inputs based on abg qualifies for bipap but needs to complete nocturnal pulse ox study on current 3lts oxygen but darcy refused to stay and says he already went through the process and did not qualified for it advised to keep up the appointment with his pulmonary. H/O PAROXYSMAL ATRIAL FIBRILLATION Not on anticoagulation Currently in NSR Continue verapamil HYPOTHYROIDISM Continue levothyroxine DM TYPE 2 Diet controlled Novolog sliding scale while inpatient hba1c 7.0 followup with pcp ALCOHOL USE Monitor for withdrawal Gabapentin protocol for withdrawal prevention, then resume his usual dose of gabapentin 300 mg daily history of varices? will need to have cardiac health assessed fully and respiratory symptoms stable before further workup on this issue discharged home Total time spent on discharge = 35MINUTES This includes examination of the patient, discharge planning, medication reconciliation, and communication with other providers. Discharge Instructions Discharge Instructions Date of Service Nov 21, 2016. Admission Reason for Admission: Chest Pain Discharge Discharge Diagnosis / Problem: chest pain, diabetes Discharge Goals Goal(s): Decrease discomfort, Improve function Activity Recommendations Activity Limitations: resume your previous activity . Instructions / Follow-Up Instructions / Follow-Up FOLLOWUP WITH FAMILY DOCTOR ON Nov AT 11:05AM. KINDLY TRY TO KEEP APPOINTMENT WITH PULMONARY TOMORROW SCHEDULED. TO CHECK FOR QUALIFICATION OF BIPAP WITH PULMONARY. FOLLOWUP WITH FAMILY DOCTOR FOR DIABETES. HBA1C LEVEL 7.0 STRONGLY ADVICE FOR SMOKING AND ALCOHOL CESSATION. Current Hospital Diet Patient's current hospital diet: AHA Diet (Heart Healthy), Diabetes Type 2 Diet Discharge Diet Recommended Diet: AHA Diet (Heart Healthy), Diabetes Type 2 Diet Pending Studies Studies pending at discharge: no Laboratory Results Hemoglobin A1c Test 11/17/16 01:37 Range/Units Estimated Average Glucose 154 mg/dl Hemoglobin A1c 7.0 H 4.5-5.6 % Medical Emergencies . Who to Call and When: Medical Emergencies: If at any time you feel your situation is an emergency, please call 911 immediately. . Non-Emergent Contact Non-Emergency issues call your: Primary Care Provider . . "Provider Documentation" section prepared by Chapincito Diamond. . VTE Core Measure Inpt VTE Proph given/why not?: Unfractionated heparin SQ
== END 2016-11-21 14:39 | disposition home or self-care (01) | DRG 189 ==
LOC: EDBD 14:04 → C.EDB 14:05 → C.MED 16:43 → ENRESERV 17:06 → C.MED 18:10 → UNDOADMOB 18:10 → INTOOBSV 18:10 → OBSVTOIN 11-19 21:01 → C.MS4W 11-20 21:49
PROVIDERS: ADMIT Hospitalist; ATTEND Internal Medicine
DX: J96.11 Chronic respiratory failure with hypoxia (principal); I50.32 Chronic diastolic (congestive) heart failure; R07.2 Precordial pain; J96.12 Chronic respiratory failure with hypercapnia; I11.0 Hypertensive heart disease with heart failure; E11.9 Type 2 diabetes mellitus without complications; J44.9 Chronic obstructive pulmonary disease, unspecified; I48.0 Paroxysmal atrial fibrillation; E03.9 Hypothyroidism, unspecified; K21.9 Gastro-esophageal reflux disease without esophagitis; G47.33 Obstructive sleep apnea (adult) (pediatric); F10.10 Alcohol abuse, uncomplicated; F17.200 Nicotine dependence, unspecified, uncomplicated; Z79.2 Long term (current) use of antibiotics; Z79.899 Other long term (current) drug therapy; Z99.81 Dependence on supplemental oxygen

== ENCOUNTER 2017-02-18 16:21 | Inpatient (IN) | payer OTHER ==
[~2017-02-18] VITALS: Ht 177.8 cm; Wt 78.0 kg
[~2017-02-18 16:21] MED LIST changes: -ALBINS/ INH; -ATRINS NEB; -AZIT250T PO; -AZITTAB PO; -DOCU-94 PO; -FLNIN; +FURO-85 PO; -IPRA1AER2 PO; -LEVO50TA PO; +LISI-725 PO; -LISI20TA3 PO; +MULT-506 PO; -PRED10TA PO; -PRED20TA PO; -PRLSR20 PO; -SYMIN INH; +VERA120T15 PO; -VERA120T2 PO; +VNTHFA/IN INH; -VNTHFA/IN PO; -WLLSR100 PO
[2017-02-18] MEDS ORDERED: IPRA1AER2 PO (16:24)
[2017-02-18] MEDS ORDERED: METHYLPREDNISOLONE 125 MG VIAL IV STA (16:30)
[2017-02-18] MEDS ORDERED: ALBUT/IPRATROP 3MG/0.5MG NEB 3 ML VIAL INH ONE (16:30)
--- NOTE | 2017-02-18 16:48 | DIAGNOSTIC IMAGING REPORT ---
SINGLE VIEW CHEST CLINICAL HISTORY: Pneumonia. FINDINGS: An AP, portable, upright chest radiograph is compared to study dated 11/16/2016 and correlated with chest CT dated 06/27/2016. The examination is degraded by portable technique and apical lordotic positioning. The cardiomediastinal silhouette is unremarkable. There is atherosclerotic calcification of the thoracic aorta. Emphysema and chronic interstitial thickening are similar to previous. Patchy airspace consolidation is identified in the right midlung peripherally. There is also patchy consolidative change at the right lung base. No large pleural effusion is seen. The left lung is grossly clear. No pneumothorax is seen. The skeletal structures are osteopenic. The bony thorax is grossly intact. IMPRESSION: 1. There are foci of patchy consolidative change in the right lung typical in appearance for pneumonia. Clinical correlation will be required and radiographic follow-up to resolution is recommended. 2. The left lung appears clear. 3. Emphysema. Electronically signed by: Fahad Hammond M.D. 02/18/2017 4:47 PM Dictated Date/Time: 02/18/2017 4:45 PM
[2017-02-18] MEDS ORDERED: LEVAQUIN 750MG / 150ML D5W IV STA (17:03)
[2017-02-18 17:40] VITALS: PULSE 84; O2SAT 95
[2017-02-18 17:45] LABS: BASO % 0.2 %; BASO ABS # 0.02 K/uL (0-0.2); EOS % 0.4 %; EOS ABS # 0.05 K/uL (0-0.5); HEMATOCRIT 36.3 % (42-52); HEMOGLOBIN 12.6 g/dL (14.0-18.0); IG# 0.05 K/uL (0.00-0.02); LYMPH % 6.1 %; LYMPH ABS # 0.73 K/uL (1.2-3.4); MEAN CELL VOLUME 96.3 fL (80-100); MEAN CORPUSCULAR HEMOGLOBIN 33.4 pg (25-34); MEAN CORPUSCULAR HGB CONC 34.7 g/dl (32-36); MEAN PLATELET VOLUME 10.5 fL (7.4-10.4); MONO % 4.1 %; MONO ABS # 0.49 K/uL (0.11-0.59); NEUT % 88.8 %; PLATELET COUNT 210 K/uL (130-400); RED CELL DISTRIBUTION WIDTH CV 12.2 % (11.5-14.5); WHITE BLOOD COUNT 11.94 K/uL (4.8-10.8)
[2017-02-18 17:55] LABS: INR 0.9 (0.9-1.1)
[2017-02-18] MEDS ORDERED: ARFO15NE NEB (17:56)
[2017-02-18] MEDS ORDERED: DOCU-94 PO (17:56)
[2017-02-18] MEDS ORDERED: PLMINS NEB (17:56)
[2017-02-18 18:01] LABS: CALCIUM 9.4 mg/dl (8.5-10.1); CREATININE 1.04 mg/dl (0.60-1.40); POTASSIUM 4.2 mmol/L (3.5-5.1)
[2017-02-18 19:21] LABS: INFLUENZA B ANTIGEN Neg for Influ B (NEG)
[2017-02-18] MEDS ORDERED: SODIUM CHLORIDE 0.9% 1000ML 1,000 ML IV STA (20:05)
[2017-02-18] MEDS ORDERED: ALBINS/ NEB (20:58)
--- NOTE | 2017-02-18 21:31 | EMERGENCY ROOM VISIT NOTE ---
History Report prepared by Saad: Nilesh Boyd Under the Supervision of: Dr. Zachary Fowler M.D. First contact with patient: 16:24 Chief Complaint: SHORTNESS OF BREATH Stated Complaint: SOB, CHEST PAIN History of Present Illness The patient is a 67 year old male with a history of COPD, who presents to the Emergency Room with complaints of constant SOB beginning 5-6 days ago. The patient notes that he feels as though he cannot catch his breath. Along with his SOB, he also complains of a sharp pain along the right side of his chest and a productive white cough. He notes that his chest pain started this afternoon, and occurs when he lays down. He reports that he has had similar pain on the left side of his chest due to problems with his lungs resulting from his COPD. He denies any vomiting, leg swelling, and pain. The patient states that he takes 3.5 liters of oxygen at home. He notes that he has a previous history of a blood clot in his left leg occurring many years ago due to a cast. He reports that he is not on any Coumadin or other blood thinners. Source of History: patient Onset: 5-6 days ago Position: other (global) Symptom Intensity: moderate Quality: other (shortness of breath) Timing: constant, worsening Associated Symptoms: + cough (productive, white), + chest pain (right-sided) , No vomiting Review of Systems I did review 10 or more systems which are negative unless otherwise indicated on the chart or HPI. Past Medical & Surgical Medical Problems: (1) BPH (benign prostatic hyperplasia) (2) Chest pain (3) Chronic respiratory failure (4) COPD (chronic obstructive pulmonary disease) (5) COPD exacerbation (6) Deep vein blood clot of left lower extremity (7) Depression (8) Diab Willa Wo Compl, Type Ii Or Unspec Type, Not Uncntrld (9) Edema (10) Esophageal stenosis (11) GERD (gastroesophageal reflux disease) (12) Hypothyroidism (13) Superficial thrombophlebitis (14) TIA (transient ischemic attack) Surgical Problems: (1) S/P bronchoscopy Family History Cancer Diabetes mellitus Kidney disease Kidney stones Lung disease Social History Smoking Status: Current Every Day Smoker Alcohol Use: heavy Marital Status: single Housing Status: lives alone Occupation Status: retired Current/Historical Medications Scheduled Arformoterol Tartrate (Brovana), 15 MCG NEB BID Atorvastatin (Atorvastatin Calcium), 40 MG PO DAILY Budesonide (Budesonide), 1 VIAL NEB BID Docusate Sodium (Colace), 100 MG PO QAM Furosemide (Lasix), 20 MG PO DAILY Gabapentin (Neurontin), 300 MG PO QAM Home O2 Therapy (Oxygen), 3.5 LITERS NA CONTINOUS Levothyroxine Sodium (Synthroid), 50 MCG PO DAILY Lisinopril (Zestril), 20 MG PO QAM Multivitamin (Multivitamin), 1 TAB PO QAM Verapamil (Calan), 120 MG PO QAM Scheduled PRN Albuterol Hfa (Ventolin Hfa), 2 PUFFS INH QID PRN for Shortness of Breath Albuterol Sulf (Proventil 0.083% 2.5MG/3ML), 2.5 MG NEB QID PRN for SOB/Wheezing Ipratropium-Albuterol (Combivent Respimat), 2 PUFFS PO Q6H PRN for SOB/Wheezing Allergies Coded Allergies: Poultry Meal (Verified Allergy, Intermediate, TURKEY - HIVES, RASH, NAUSEA , 01/10/17) NOT CHICKEN, ONLY TURKEY Physical Exam Vital Signs Date Time Temp Pulse Resp B/P (MAP) Pulse Ox O2 Delivery O2 Flow Rate FiO2 02/18/17 20:48 94 02/18/17 19:08 96 20 91/57 99 Nebulizer 02/18/17 17:40 84 24 95 Nasal Cannula 2.0 02/18/17 17:39 82 18 107/62 98 Nebulizer 02/18/17 16:47 88 02/18/17 16:42 99 Nasal Cannula 3.0 02/18/17 16:40 97 Nasal Cannula 3.0 02/18/17 16:34 36.8 91 20 117/66 99 Room Air Physical Exam Constitutional: Vital signs reviewed. Eyes: Pupils are equal round reactive to light. Conjunctiva are noninjected. ENT: Pharynx is clear without erythema or exudate. Mucous membranes are moist. Neck supple without meningeal signs. Respiratory: Breath sounds are equal bilaterally. Diffuse expiratory wheezing bilaterally, difficulty speaking in full sentences, retractions present. Cardiovascular: Regular rate and rhythm. No rubs or gallops. GI: Soft, nondistended and nontender. Bowel sounds are present. Musculoskeletal: No peripheral edema. No lower extremity tenderness. Integumentary: No cyanosis. Neurological: The patient is awake and alert. No focal deficits. Psychiatric: Normal affect. Medical Decision & Procedures ER Provider Diagnostic Interpretation: Radiology results as stated below per my review and the radiologist's interpretation: SINGLE VIEW CHEST CLINICAL HISTORY: Pneumonia. FINDINGS: An AP, portable, upright chest radiograph is compared to study dated 11/16/2016 and correlated with chest CT dated 06/27/2016. The examination is degraded by portable technique and apical lordotic positioning. The cardiomediastinal silhouette is unremarkable. There is atherosclerotic calcification of the thoracic aorta. Emphysema and chronic interstitial thickening are similar to previous. Patchy airspace consolidation is identified in the right midlung peripherally. There is also patchy consolidative change at the right lung base. No large pleural effusion is seen. The left lung is grossly clear. No pneumothorax is seen. The skeletal structures are osteopenic. The bony thorax is grossly intact. IMPRESSION: 1. There are foci of patchy consolidative change in the right lung typical in appearance for pneumonia. Clinical correlation will be required and radiographic follow-up to resolution is recommended. 2. The left lung appears clear. 3. Emphysema. Electronically signed by: Fahad Hammond M.D. 02/18/2017 4:47 PM Laboratory Results 02/18/17 17:29 Red Blood Count 3.77, Mean Corpuscular Volume 96.3, Mean Corpuscular Hemoglobin 33.4, Mean Corpuscular Hemoglobin Concent 34.7, Mean Platelet Volume 10.5, Neutrophils (%) (Auto) 88.8, Lymphocytes (%) (Auto) 6.1, Monocytes (%) (Auto) 4.1, Eosinophils (%) (Auto) 0.4, Basophils (%) (Auto) 0.2, Neutrophils # (Auto) 10.60, Lymphocytes # (Auto) 0.73, Monocytes # (Auto) 0.49, Eosinophils # (Auto) 0.05, Basophils # (Auto) 0.02 02/18/17 17:29 Test 02/18/17 16:59 02/18/17 17:29 02/18/17 17:36 02/18/17 20:45 Influenza Type A Antigen Neg for Influ A (NEG) Influenza Type B Antigen Neg for Influ B (NEG) White Blood Count 11.94 K/uL (4.8-10.8) Red Blood Count 3.77 M/uL (4.7-6.1) Hemoglobin 12.6 g/dL (14.0-18.0) Hematocrit 36.3 % (42-52) Mean Corpuscular Volume 96.3 fL (80-100) Mean Corpuscular Hemoglobin 33.4 pg (25-34) Mean Corpuscular Hemoglobin Concent 34.7 g/dl (32-36) Platelet Count 210 K/uL (130-400) Mean Platelet Volume 10.5 fL (7.4-10.4) Neutrophils (%) (Auto) 88.8 % Lymphocytes (%) (Auto) 6.1 % Monocytes (%) (Auto) 4.1 % Eosinophils (%) (Auto) 0.4 % Basophils (%) (Auto) 0.2 % Neutrophils # (Auto) 10.60 K/uL (1.4-6.5) Lymphocytes # (Auto) 0.73 K/uL (1.2-3.4) Monocytes # (Auto) 0.49 K/uL (0.11-0.59) Eosinophils # (Auto) 0.05 K/uL (0-0.5) Basophils # (Auto) 0.02 K/uL (0-0.2) RDW Standard Deviation 43.0 fL (36.4-46.3) RDW Coefficient of Variation 12.2 % (11.5-14.5) Immature Granulocyte % (Auto) 0.4 % Immature Granulocyte # (Auto) 0.05 K/uL (0.00-0.02) Prothrombin Time 9.6 SECONDS (9.0-12.0) Prothromb Time International Ratio 0.9 (0.9-1.1) Activated Partial Thromboplast Time 24.0 SECONDS (21.0-31.0) Partial Thromboplastin Ratio 0.9 Anion Gap 7.0 mmol/L (3-11) Est Creatinine Clear Calc Drug Dose 66.2 ml/min Estimated GFR () 86.9 Estimated GFR (Non- 75.0 BUN/Creatinine Ratio 14.5 (10-20) Calcium Level 9.4 mg/dl (8.5-10.1) Magnesium Level 1.9 mg/dl (1.8-2.4) Bedside Troponin I < 0.030 ng/ml (0-0.045) Test 02/18/17 21:21 Laboratory results as reviewed by me. Medications Administered Medications (Trade) Dose Ordered Sig/Fadi Route Start Time Stop Time Status Last Admin Dose Admin Methylprednisolone Sodium Succinate (Solu-Medrol IV) 125 mg NOW STAT IV 02/18/17 16:30 02/18/17 16:32 DC 02/18/17 16:30 125 MG Albuterol/ Ipratropium (Duoneb) 12 ml ONE ONCE INH 02/18/17 16:30 02/18/17 16:32 DC 02/18/17 17:37 12 ML Levofloxacin (Levaquin / D5W) 750 mg NOW STAT IV 02/18/17 17:03 02/18/17 17:04 DC 02/18/17 17:38 750 MG Sodium Chloride 1,000 ml @ 500 mls/hr Q2H STAT IV 02/18/17 20:05 02/18/17 22:04 02/18/17 20:55 500 MLS/HR ECG Indication: SOB/dyspnea Rate (beats per minute): 81 Rhythm: sinus rhythm Findings: no acute ischemic change, no ectopy, other (Short AK, no delta waves) ED Course 162: The patient was evaluated in room A12. A complete history and physical exam was performed. 0: Albuterol/Ipratropium 12 ml INH, Solu-Medrol IV 125mg IV 1702: Levofloxacin 750mg IV 1706: I reevaluated and updated the patient. I notified him that he has a pneumonia on his X-RAY. He is still waiting on his nebulizer. 1952: The patient's O2 saturation is 94, but he is still wheezing quite a bit. 1956: Upon reevaluation, the patient appears stable. I discussed the treatment plan with him and he agrees. I discussed the patient's case with Dr. Hamilton - HospitalistMarissa. The patient will be evaluated for further management and care. Medical Decision This is a 67-year-old male who presents with shortness of breath and right- sided chest pain. Differential diagnosis includes pneumonia, bronchitis, pleurisy, COPD exacerbation, pulmonary embolism, TN. I did perform a limited focused review of portions of the patient's old chart on the electronic medical record. The patient was last seen in November of last year for chest pain and chronic respiratory failure. I did evaluate the patient as noted above. IV access was established. The patient was placed on a continuous rn cardiac rehab. I did treat him with an hour-long continuous DuoNeb. He is also given Solu-Medrol IV. I did order and personally review the patient's 12-lead EKG and chest x-ray as described above. He does have a right-sided pneumonia which would explain his right-sided chest pain. Blood cultures were ordered. I did treat him with Levaquin IV. I did order and review the patient's blood work as noted in the electronic medical record. His white blood cell count is slightly elevated. His troponin is negative. Rapid flu testing is negative. I did reexamine the patient. He still has wheezing on auscultation. His O2 saturations 94%. I did recommend hospitalization for further care and evaluation. I did discuss case with the hospitalist and case picker. Medication Reconcilliation Current Medication List: was personally reviewed by me Blood Pressure Screening Patient's blood pressure: Normal blood pressure Blood pressure disposition: Did not require urgent referral Consults Time Called: 1952 Consulting Physician: Marissa Coleman Returned Call: 1956 I discussed the patient's case with Marissa Coleman. The patient will be evaluated for further management and care. Impression Primary Impression: Pneumonia involving right lung Additional Impression: COPD exacerbation Scribe Attestation The scribe's documentation has been prepared under my direct and personally reviewed by me in its entirety. I confirm that the note above accurately reflects all work, treatment, procedures, and medical decision making performed by me. Departure Information Dispostion Being Evaluated By Hospitalist Referrals Derrell Schmidt M.D. ([facility]) (PCP) Patient Instructions My [facility] Problem Qualifiers Primary Impression: Pneumonia involving right lung Pneumonia type: due to unspecified organism Lung location: middle lobe of lung Qualified Codes: J18.1 - Lobar pneumonia, unspecified organism
[2017-02-18] MEDS ORDERED: LEVALBUTEROL/IPRATROPIUM NEB INH STA (21:55)
[2017-02-18] MEDS ORDERED: AMPICILLIN/SULBACTAM SOD INJ 3,000 MG in SODIUM CHLORIDE 0.9% 100ML 100 ML IV STA (21:55)
[2017-02-18] MEDS ORDERED: LEVALBUTEROL/IPRATROPIUM NEB INH PRN (22:00)
[2017-02-18] MEDS ORDERED: GLUCOSE 40% GEL 15 GM TUBE PO PRN (22:00)
[2017-02-18] MEDS ORDERED: GLUCOSE 10 TABS/TUBE PO PRN (22:00)
[2017-02-18] MEDS ORDERED: GABAPENTIN 600 MG TAB PO SCH (22:00)
[2017-02-18] MEDS ORDERED: MoRPHine SULFATE 4 MG/ML 1 ML CARP\\VIAL IV PRN (22:00)
[2017-02-18] MEDS ORDERED: LORAZEPAM 2 MG/ML 1 ML VIAL IV PRN (22:00)
[2017-02-18] MEDS ORDERED: OXYCODONE/ACETAMINOPHEN 5-325 TAB PO PRN (22:00)
[2017-02-18] MEDS ORDERED: ACETAMINOPHEN 325 MG TAB PO PRN (22:00)
[2017-02-18] MEDS ORDERED: GLUCAGON FOR INJ 1 MG VIAL SQ PRN (22:00)
[2017-02-18] MEDS ORDERED: DEXTROSE 50% 50 ML SYR IV PRN (22:00)
[2017-02-18] MEDS ORDERED: PROCHLORPERAZINE INJ 5 MG in SYRINGE 4 ML IV PRN (22:00)
[2017-02-18] MEDS ORDERED: LEVALBUTEROL 1.25MG/0.5ML NEB INH STA (22:08)
[2017-02-18] MEDS ORDERED: IPRATROPIUM BROMIDE NEB SOLN 0.02% 2.5 ML VIAL INH STA (22:08)
[2017-02-18] MEDS ORDERED: INSULIN GLARGINE SOLOSTAR 100 UNITS/ML 3 ML PEN SC STA (22:09)
[2017-02-18] MEDS ORDERED: INSULIN ASPART 100 UNITS/ML 3 ML PEN SC STA (22:09)
[2017-02-18] MEDS ORDERED: LEVO50TA PO (22:14)
[2017-02-18] MEDS ORDERED: LEVALBUTEROL 1.25MG/0.5ML NEB INH PRN (22:15)
[2017-02-18] MEDS ORDERED: OPTIRAY 320 IV PRN (22:15)
[2017-02-18] MEDS ORDERED: IPRATROPIUM BROMIDE NEB SOLN 0.02% 2.5 ML VIAL INH PRN (22:15)
[2017-02-18 22:41] VITALS: BP 105/64; PULSE 84; TEMP 36.6; O2SAT 95; BMI 24.7; BMI 27.1
[2017-02-18] MEDS ORDERED: MULTI-VITAMIN INFUSION INJ 10 ML, THIAMINE HCL INJ 100 MG, FoLIC ACID INJ 1 MG in SODIU... IV ONE (23:00)
[2017-02-19] VITALS (7 sets, daily range): BP systolic 99–118; BP diastolic 60–71; PULSE 60–91; TEMP 36.4–36.8; O2SAT 96–99
[2017-02-19] MEDS ORDERED: GABAPENTIN 1200MG LOADING DOSE PO SCH (00:15)
[2017-02-19] MEDS ORDERED: GABAPENTIN 1200MG LOADING DOSE PO STA (00:19)
[2017-02-19] MEDS ORDERED: INSULIN GLARGINE SOLOSTAR 100 UNITS/ML 3 ML PEN SC ONE (02:27)
[2017-02-19] MEDS ORDERED: LEVALBUTEROL/IPRATROPIUM NEB INH SCH (03:00)
[2017-02-19] MEDS: LEVALBUTEROL 1.25MG/0.5ML NEB INH SCH ×4 (03:00→20:20)
[2017-02-19] MEDS: IPRATROPIUM BROMIDE NEB SOLN 0.02% 2.5 ML VIAL INH SCH ×4 (03:00→20:20)
[2017-02-19] MEDS ORDERED: INFLUENZA ADMINISTRATION CHARGE ONE (03:30)
[2017-02-19] MEDS ORDERED: INFLUENZA VACCINE HIGH DOSE 65+ 0.5 ML SYR IM. ONE (03:30)
[2017-02-19 04:25] LABS: HEMATOCRIT 31.5 % (42-52); HEMOGLOBIN 10.7 g/dL (14.0-18.0); IG# 0.02 K/uL (0.00-0.02); LYMPH % 4.8 %; LYMPH ABS # 0.38 K/uL (1.2-3.4); MEAN CORPUSCULAR HEMOGLOBIN 32.6 pg (25-34); MEAN PLATELET VOLUME 10.4 fL (7.4-10.4); MONO % 1.4 %; MONO ABS # 0.11 K/uL (0.11-0.59); NEUT % 93.5 %; NEUT ABS # 7.49 K/uL (1.4-6.5); PLATELET COUNT 198 K/uL (130-400); RED CELL DISTRIBUTION WIDTH CV 12.1 % (11.5-14.5); RED CELL DISTRIBUTION WIDTH SD 42.6 fL (36.4-46.3)
[2017-02-19 04:43] LABS: CALCIUM 8.8 mg/dl (8.5-10.1); CREATININE 1.34 mg/dl (0.60-1.40); POTASSIUM 4.8 mmol/L (3.5-5.1)
--- NOTE | 2017-02-19 04:51 | HISTORY & PHYSICAL EXAMINATION ---
DATE OF ADMISSION: 02/18/2017 PRIMARY CARE DOCTOR: Dr. Schmidt. CHIEF COMPLAINT: Shortness of breath. HISTORY OF PRESENT ILLNESS: History obtained from patient and records. Medical history significant for chronic respiratory failure secondary to COPD on home O2, ongoing tobacco abuse, hypertension, alcohol abuse as per records, DM2, diet controlled, esophageal stenosis status post dilatation, history of TIA as per records, chronic anemia (baseline hemoglobin of 12), mood disorder. Recent confinement last November 2016 for chest pain. Negative dobutamine stress test. In the last couple of days, increasing shortness of breath on exertion, cough productive of clear sputum, right-sided chest pain, pleuritic, increased wheezing. Denies sick contact. Admits to some coughing "choking" with some meals. At the Emergency Room, the patient received Levaquin, Solu-Medrol, neb treatment for COPD exacerbation. MEDICAL HISTORY: As above. SURGERIES: Urologic procedures. HOME MEDICATIONS: Include Ventolin, Proventil, Brovana, atorvastatin, budesonide, Colace, Lasix, Neurontin, home O2, Combivent, Synthroid, Zestril, multivitamins, Calan. ALLERGIES: Poultry. FAMILY HISTORY: There is a family history of heart disease. PERSONAL AND SOCIAL HISTORY: A pack to 1-1/2 pack daily. Alcohol abuse per records. Disabled. REVIEW OF SYSTEMS: As per HPI, all 10 systems reviewed, all other ROS negative. PHYSICAL EXAMINATION: VITAL SIGNS: Blood pressure was noted to be 107/62, pulse rate 84, RR 24, temperature 36.8, sats 97 on 3 liters. GENERAL: Noted to be in minimal respiratory distress. Slightly anxious. SKIN: Pallor. Warm. HEENT: Pale palpebral conjunctive. No ptosis. Dry mucosa. NECK: Supple. No tenderness. CHEST: Expiratory wheezes, no tenderness. HEART: Regular rate and rhythm. No murmur. ABDOMEN: Soft, nontender. EXTREMITIES: No edema. No gross deformities. No tenderness. NEUROLOGIC: Coherent. No gross focality. LABORATORY DATA: Hemoglobin was noted to be 12.6, hematocrit 36.2, white cell count 11.9, platelets noted to be 210. Sodium noted to be 136, potassium 4.2, chloride 96, CO2 32, BUN 15, creatinine 1, glucose 112, lactic acid was noted to be 2.1. Chest x-ray showed patchy consolidation right lung, emphysema. EKG as per my interpretation, rate 80, normal sinus rhythm, incomplete right bundle branch block. ABG: pH 7.39, pCO2 47, pO2 103, 97% on 3 liters. ASSESSMENT: 1. Chronic obstructive pulmonary disease exacerbation secondary to possible aspiration pneumonia, possible sepsis Rule out pulmonary embolism as etiology of pleuritic chest pain. 2. chronic respiratory failure, oxygenation seems to be at baseline. 3. Ongoing tobacco abuse. 3. Hypertension, blood pressure on the lower side. 4. DM2 diet controlled, well controlled as of recent outpatient A1c of 5.9 last January 2017. 5. Alcohol abuse as per records. 6. Chronic anemia, hemoglobin at baseline PLAN: GMF Continue supplemental O2. Unasyn, nebs, steroids. Swallow eval CT chest, PE study. May need Pulmonary consult for COPD exacerbation if without improvement following initial intervention IVF, follow lactic acid ISS BG goal 140-180, may need basal insulin to attain goal with anticipated hyperglycemia from steroid therapy. Nicotine patch. DT precautions DVT prophylaxis Lovenox subcutaneous Full code. MTDD
[2017-02-19] MEDS: INSULIN ASPART 100 UNITS/ML 3 ML PEN SC SCH ×4 (06:30→21:15)
[2017-02-19] MEDS: LEVOTHYROXINE 50 MCG TAB PO SCH (06:32)
[2017-02-19] MEDS: AMPICILLIN/SULBACTAM SOD INJ 3,000 MG in SODIUM CHLORIDE 0.9% 100ML 100 ML IV SCH ×3 (06:32→18:10)
[2017-02-19] MEDS: GABAPENTIN 600MG Q6H DOSE PO SCH ×2 (06:32→12:16)
--- NOTE | 2017-02-19 06:42 | DIAGNOSTIC IMAGING REPORT ---
(CHEST FOR PE) ANGIO WITH CT DOSE: 496.96 mGycm HISTORY: Chest pain dyspnea TECHNIQUE: Multiaxial CT images of the chest were performed following the intravenous administration of contrast to evaluate the pulmonary arteries. Maximal intensity projection images were also obtained. A dose lowering technique was utilized adhering to the principles of ALARA. COMPARISON STUDY: 06/27/2016 FINDINGS: The pulmonary vasculature enhances appropriately. No significant filling defect. Bilateral emphysematous change. Peripheral parenchymal infiltrative process peripheral aspect right midlung. Slight peribronchial thickening. Lungs otherwise are clear. IMPRESSION: 1. Emphysematous change. 2. Study is negative for pulmonary embolus. 3. Focal patchy parenchymal infiltrate peripheral aspect right mid lung. The above report was generated using voice recognition software. It may contain grammatical, syntax or spelling errors. Electronically signed by: Adrián Vincent M.D. 02/19/2017 6:40 AM Dictated Date/Time: 02/19/2017 6:39 AM
[2017-02-19] MEDS: ATORVASTATIN 40 MG TAB PO SCH (07:58)
[2017-02-19] MEDS: MULTIVITAMIN TAB PO SCH (07:58)
[2017-02-19] MEDS: LISINOPRIL 20 MG TAB PO SCH (07:58)
[2017-02-19] MEDS: VERAPAMIL HCL 120 MG TABCR PO SCH (07:58)
[2017-02-19] MEDS: ENOXAPARIN 40 MG/0.4 ML SYR SQ SCH (07:58)
[2017-02-19] MEDS: DOCUSATE SODIUM 100 MG CAP PO SCH (07:59)
[2017-02-19] MEDS ORDERED: AMPICILLIN/SULBACTAM CONSULT ACTIVE PRN (09:00)
--- NOTE | 2017-02-19 14:10 | Progress Note ---
Internal Med Progress Note Date of Service: Feb 19, 2017. Provider Documentation: SUBJECTIVE: The patient was seen and examined Remains SOB with minimal improvement OBJECTIVE: Vital Signs-as noted below Exam: General-Moderate distress at rest Eyes-normal ENT-normal Neck-Supple Lungs-Severely decreased breath sound Minimal wheezing all over Heart-Regular Abdomen-Benign,no masses,bowel sound present Extremities-No edema Neuro-AAOx3 Lab data as noted below. ASSESSMENT & PLAN: Chronic obstructive pulmonary disease exacerbation secondary to possible aspiration pneumonia, Possible sepsis CTA::1. Emphysematous change. 2. Study is negative for pulmonary embolus. 3. Focal patchy parenchymal infiltrate peripheral aspect right mid lung. Continue Unasyn,Steroid and Bronchodilators Swallowing Evaluation Clinically a little better and Lactic acid improved Acute on chronic respiratory failure, oxygenation seems to be at baseline. Continue supplemental O2. Ongoing tobacco abuse. Hypertension, blood pressure on the lower side. DM2 diet controlled, well controlled as of recent outpatient A1c of 5.9 last January 2017. ISS BG goal 140-180, may need basal insulin to attain goal with anticipated hyperglycemia from steroid therapy. Alcohol abuse as per records. DT precautions DVT prophylaxis Lovenox subcutaneous Full code. Vital Signs: Date Time Temp Pulse Resp B/P (MAP) Pulse Ox O2 Delivery O2 Flow Rate FiO2 02/19/17 13:44 68 16 96 Nasal Cannula 3.5 02/19/17 08:00 Nasal Cannula 4.0 02/19/17 07:43 36.4 65 18 118/71 (87) 99 Nasal Cannula 4.0 02/19/17 07:27 60 18 98 Nasal Cannula 3.5 02/19/17 00:46 Nasal Cannula 3.0 02/18/17 22:41 36.6 84 18 105/64 95 Nasal Cannula 4.0 02/18/17 22:26 90 22 100/61 94 02/18/17 21:46 99 22 95/60 95 Room Air 3.0 Nasal Cannula 02/18/17 20:48 94 02/18/17 19:08 96 20 91/57 99 Nebulizer 02/18/17 17:40 84 24 95 Nasal Cannula 2.0 02/18/17 17:39 82 18 107/62 98 Nebulizer 02/18/17 16:47 88 02/18/17 16:42 99 Nasal Cannula 3.0 02/18/17 16:40 97 Nasal Cannula 3.0 02/18/17 16:34 36.8 91 20 117/66 99 Room Air Lab Results: Results Past 24 Hours Test 02/18/17 16:59 02/18/17 17:29 02/18/17 17:36 02/18/17 20:45 Range/Units Influenza Type A Antigen Neg for Influ A NEG Influenza Type B Antigen Neg for Influ B NEG White Blood Count 11.94 4.8-10.8 K/uL Red Blood Count 3.77 4.7-6.1 M/uL Hemoglobin 12.6 14.0-18.0 g/dL Hematocrit 36.3 42-52 % Mean Corpuscular Volume 96.3 80-100 fL Mean Corpuscular Hemoglobin 33.4 25-34 pg Mean Corpuscular Hemoglobin Concent 34.7 32-36 g/dl Platelet Count 210 130-400 K/uL Mean Platelet Volume 10.5 7.4-10.4 fL Neutrophils (%) (Auto) 88.8 % Lymphocytes (%) (Auto) 6.1 % Monocytes (%) (Auto) 4.1 % Eosinophils (%) (Auto) 0.4 % Basophils (%) (Auto) 0.2 % Neutrophils # (Auto) 10.60 1.4-6.5 K/uL Lymphocytes # (Auto) 0.73 1.2-3.4 K/uL Monocytes # (Auto) 0.49 0.11-0.59 K/uL Eosinophils # (Auto) 0.05 0-0.5 K/uL Basophils # (Auto) 0.02 0-0.2 K/uL RDW Standard Deviation 43.0 36.4-46.3 fL RDW Coefficient of Variation 12.2 11.5-14.5 % Immature Granulocyte % (Auto) 0.4 % Immature Granulocyte # (Auto) 0.05 0.00-0.02 K/uL Prothrombin Time 9.6 9.0-12.0 SECONDS Prothromb Time International Ratio 0.9 0.9-1.1 Activated Partial Thromboplast Time 24.0 21.0-31.0 SECONDS Partial Thromboplastin Ratio 0.9 Sodium Level 135 136-145 mmol/L Potassium Level 4.2 3.5-5.1 mmol/L Chloride Level 96 98-107 mmol/L Carbon Dioxide Level 32 21-32 mmol/L Anion Gap 7.0 3-11 mmol/L Blood Urea Nitrogen 15 7-18 mg/dl Creatinine 1.04 0.60-1.40 mg/dl Est Creatinine Clear Calc Drug Dose 66.2 ml/min Estimated GFR () 86.9 Estimated GFR (Non- 75.0 BUN/Creatinine Ratio 14.5 10-20 Random Glucose 112 70-99 mg/dl Calcium Level 9.4 8.5-10.1 mg/dl Magnesium Level 1.9 1.8-2.4 mg/dl Bedside Troponin I < 0.030 0-0.045 ng/ml Lactic Acid Level 2.1 0.4-2.0 mmol/L Test 02/18/17 21:35 02/18/17 23:02 02/19/17 03:05 02/19/17 04:15 Range/Units Arterial Blood pH 7.39 7.35-7.45 Arterial Blood Partial Pressure CO2 47 35-46 mmHg Arterial Blood Partial Pressure O2 103 80-95 mm/Hg Arterial Blood HCO3 28 19-24 mmol/L Arterial Blood Oxygen Saturation 97.4 90-95 % Arterial Blood Base Excess 2.1 -9-1.8 mEq/L Arterial Blood Gas Delivery 3.5 L Hussein Test POS POS Bedside Glucose 298 129 70-99 mg/dl White Blood Count 8.00 4.8-10.8 K/uL Red Blood Count 3.28 4.7-6.1 M/uL Hemoglobin 10.7 14.0-18.0 g/dL Hematocrit 31.5 42-52 % Mean Corpuscular Volume 96.0 80-100 fL Mean Corpuscular Hemoglobin 32.6 25-34 pg Mean Corpuscular Hemoglobin Concent 34.0 32-36 g/dl Platelet Count 198 130-400 K/uL Mean Platelet Volume 10.4 7.4-10.4 fL Neutrophils (%) (Auto) 93.5 % Lymphocytes (%) (Auto) 4.8 % Monocytes (%) (Auto) 1.4 % Eosinophils (%) (Auto) 0.0 % Basophils (%) (Auto) 0.0 % Neutrophils # (Auto) 7.49 1.4-6.5 K/uL Lymphocytes # (Auto) 0.38 1.2-3.4 K/uL Monocytes # (Auto) 0.11 0.11-0.59 K/uL Eosinophils # (Auto) 0.00 0-0.5 K/uL Basophils # (Auto) 0.00 0-0.2 K/uL RDW Standard Deviation 42.6 36.4-46.3 fL RDW Coefficient of Variation 12.1 11.5-14.5 % Immature Granulocyte % (Auto) 0.3 % Immature Granulocyte # (Auto) 0.02 0.00-0.02 K/uL Sodium Level 133 136-145 mmol/L Potassium Level 4.8 3.5-5.1 mmol/L Chloride Level 97 98-107 mmol/L Carbon Dioxide Level 32 21-32 mmol/L Anion Gap 4.0 3-11 mmol/L Blood Urea Nitrogen 22 7-18 mg/dl Creatinine 1.34 0.60-1.40 mg/dl Est Creatinine Clear Calc Drug Dose 56.7 ml/min Estimated GFR () 64.0 Estimated GFR (Non- 55.2 BUN/Creatinine Ratio 16.2 10-20 Random Glucose 108 70-99 mg/dl Lactic Acid Level 1.4 0.4-2.0 mmol/L Calcium Level 8.8 8.5-10.1 mg/dl Test 02/19/17 07:25 02/19/17 11:07 Range/Units Bedside Glucose 151 192 70-99 mg/dl Microbiology Results 02/18/17 Blood Culture, Received Pending 02/18/17 Blood Culture, Received Pending
[2017-02-19] MEDS ORDERED: INSULIN GLARGINE SOLOSTAR 100 UNITS/ML 3 ML PEN SC SCH (21:00)
[2017-02-19] MEDS: GABAPENTIN 600MG Q8H DOSE PO SCH (21:16)
[2017-02-20] VITALS (7 sets, daily range): BP systolic 112–136; BP diastolic 64–70; PULSE 68–91; TEMP 36.4–37; O2SAT 81–99
[2017-02-20] MEDS: AMPICILLIN/SULBACTAM SOD INJ 3,000 MG in SODIUM CHLORIDE 0.9% 100ML 100 ML IV SCH ×5 (00:13→23:31)
[2017-02-20] MEDS: IPRATROPIUM BROMIDE NEB SOLN 0.02% 2.5 ML VIAL INH SCH ×4 (02:12→21:07)
[2017-02-20] MEDS: LEVALBUTEROL 1.25MG/0.5ML NEB INH SCH ×4 (02:13→21:07)
[2017-02-20] MEDS: GABAPENTIN 600MG Q8H DOSE PO SCH ×2 (04:01→11:45)
[2017-02-20] MEDS: LEVOTHYROXINE 50 MCG TAB PO SCH (06:20)
[2017-02-20] MEDS: INSULIN ASPART 100 UNITS/ML 3 ML PEN SC SCH ×4 (06:30→20:52)
[2017-02-20] MEDS: VERAPAMIL HCL 120 MG TABCR PO SCH (07:48)
[2017-02-20] MEDS: DOCUSATE SODIUM 100 MG CAP PO SCH (07:48)
[2017-02-20] MEDS: THIAMINE HCL 100 MG TAB PO SCH (07:48)
[2017-02-20] MEDS: MULTIVITAMIN TAB PO SCH (07:48)
[2017-02-20] MEDS: LISINOPRIL 20 MG TAB PO SCH (07:48)
[2017-02-20] MEDS: ATORVASTATIN 40 MG TAB PO SCH (07:48)
[2017-02-20] MEDS: FLINTSTONES COMPLETE CHEWABLE TAB PO SCH (07:48)
[2017-02-20] MEDS: ENOXAPARIN 40 MG/0.4 ML SYR SQ SCH (07:49)
[2017-02-20] MEDS: INSULIN GLARGINE SOLOSTAR 100 UNITS/ML 3 ML PEN SC SCH (07:51)
[2017-02-20 08:40] LABS: CALCIUM 9.3 mg/dl (8.5-10.1); CREATININE 1.25 mg/dl (0.60-1.40); POTASSIUM 4.3 mmol/L (3.5-5.1)
--- NOTE | 2017-02-20 13:42 | Progress Note ---
Internal Med Progress Note Date of Service: Feb 20, 2017. Provider Documentation: SUBJECTIVE: The patient was seen and examined Remains SOB with minimal improvement Complains of Cough and can not bring it up OBJECTIVE: Vital Signs-as noted below Exam: General-Moderate distress at rest Eyes-normal ENT-normal Neck-Supple Lungs-Severely decreased breath sound Minimal wheezing all over Heart-Regular Abdomen-Benign,no masses,bowel sound present Extremities-No edema Neuro-AAOx3 Lab data as noted below. ASSESSMENT & PLAN: Chronic obstructive pulmonary disease exacerbation secondary to possible aspiration pneumonia, Possible sepsis CTA::1. Emphysematous change. 2. Study is negative for pulmonary embolus. 3. Focal patchy parenchymal infiltrate peripheral aspect right mid lung. Continue Unasyn,Steroid and Bronchodilators Swallowing Evaluation-appreciate Input Clinically a little better and Lactic acid improved Much better today Will try Mucomyst for more expectoration Acute on chronic respiratory failure, oxygenation seems to be at baseline. Continue supplemental O2. Ongoing tobacco abuse. Nicotine patch Hypertension, blood pressure on the lower side. DM2 diet controlled, well controlled as of recent outpatient A1c of 5.9 last January 2017. ISS BG goal 140-180, may need basal insulin to attain goal with anticipated hyperglycemia from steroid therapy. Blood sugar is maintaining Alcohol abuse as per records. DT precautions DVT prophylaxis Lovenox subcutaneous Full code. Vital Signs: Date Time Temp Pulse Resp B/P (MAP) Pulse Ox O2 Delivery O2 Flow Rate FiO2 02/20/17 08:00 Nasal Cannula 3.0 02/20/17 07:36 91 18 98 Nasal Cannula 3.5 02/20/17 07:05 36.4 68 20 112/64 (80) 99 Nasal Cannula 3.0 02/20/17 00:05 Nasal Cannula 3.0 02/19/17 23:55 36.6 72 20 102/60 (74) 97 Nasal Cannula 3.5 02/19/17 20:20 91 18 98 Nasal Cannula 3.5 02/19/17 16:20 96 Nasal Cannula 3.5 02/19/17 14:56 36.8 62 18 99/60 (73) 96 3.5 02/19/17 13:44 68 16 96 Nasal Cannula 3.5 Lab Results: Results Past 24 Hours Test 02/19/17 16:12 02/19/17 19:40 02/20/17 07:24 02/20/17 07:57 Range/Units Bedside Glucose 163 199 152 70-99 mg/dl Sodium Level 140 136-145 mmol/L Potassium Level 4.3 3.5-5.1 mmol/L Chloride Level 102 98-107 mmol/L Carbon Dioxide Level 31 21-32 mmol/L Anion Gap 6.0 3-11 mmol/L Blood Urea Nitrogen 30 7-18 mg/dl Creatinine 1.25 0.60-1.40 mg/dl Est Creatinine Clear Calc Drug Dose 60.8 ml/min Estimated GFR () 69.6 Estimated GFR (Non- 60.0 BUN/Creatinine Ratio 24.2 10-20 Random Glucose 118 70-99 mg/dl Calcium Level 9.3 8.5-10.1 mg/dl Magnesium Level 2.4 1.8-2.4 mg/dl Test 02/20/17 11:39 Range/Units Bedside Glucose 136 70-99 mg/dl
[2017-02-20] MEDS ORDERED: POLYETHYLENE (MIRALAX) 17 GM PACK PO ONE (17:00)
[2017-02-20] MEDS ORDERED: BISACODYL 10 MG SUPP PR ONE (17:00)
[2017-02-20] MEDS: ACETYLCYSTEINE 20% INHAL SOLN ***DISPENSED BY RESP. INH SCH (21:00)
[2017-02-20] MEDS: GABAPENTIN 600MG Q12H DOSE PO SCH (23:31)
[2017-02-21 01:34] VITALS: PULSE 69; O2SAT 99
[2017-02-21] MEDS: LEVALBUTEROL 1.25MG/0.5ML NEB INH SCH ×3 (01:34→19:48)
[2017-02-21] MEDS: IPRATROPIUM BROMIDE NEB SOLN 0.02% 2.5 ML VIAL INH SCH ×3 (01:34→19:48)
[2017-02-21] MEDS: LEVOTHYROXINE 50 MCG TAB PO SCH (05:53)
[2017-02-21] MEDS: AMPICILLIN/SULBACTAM SOD INJ 3,000 MG in SODIUM CHLORIDE 0.9% 100ML 100 ML IV SCH ×3 (05:53→19:01)
[2017-02-21 07:26] VITALS: BP 138/76; PULSE 60; TEMP 36.3; O2SAT 98
[2017-02-21 07:37] VITALS: PULSE 63; O2SAT 98
[2017-02-21] MEDS: INSULIN ASPART 100 UNITS/ML 3 ML PEN SC SCH ×4 (07:58→21:35)
[2017-02-21] MEDS: FLINTSTONES COMPLETE CHEWABLE TAB PO SCH (08:00)
[2017-02-21] MEDS: MULTIVITAMIN TAB PO SCH (08:01)
[2017-02-21] MEDS: DOCUSATE SODIUM 100 MG CAP PO SCH (08:01)
[2017-02-21] MEDS: THIAMINE HCL 100 MG TAB PO SCH (08:01)
[2017-02-21] MEDS: ATORVASTATIN 40 MG TAB PO SCH (08:01)
[2017-02-21] MEDS: VERAPAMIL HCL 120 MG TABCR PO SCH (08:01)
[2017-02-21] MEDS: LISINOPRIL 20 MG TAB PO SCH (08:01)
[2017-02-21] MEDS: ENOXAPARIN 40 MG/0.4 ML SYR SQ SCH (08:01)
[2017-02-21] MEDS ORDERED: POLYETHYLENE (MIRALAX) 17 GM PACK ONE (08:04)
[2017-02-21] MEDS: ACETYLCYSTEINE 20% INHAL SOLN ***DISPENSED BY RESP. INH SCH ×2 (08:06→19:52)
[2017-02-21] MEDS: POLYETHYLENE (MIRALAX) 17 GM PACK PO SCH (08:06)
[2017-02-21] MEDS: INSULIN GLARGINE SOLOSTAR 100 UNITS/ML 3 ML PEN SC SCH ×2 (08:06→21:36)
[2017-02-21 08:53] VITALS: Ht 177.8 cm; Wt 78.0 kg
[2017-02-21] MEDS: GABAPENTIN 600MG Q12H DOSE PO SCH (12:13)
--- NOTE | 2017-02-21 15:17 | Progress Note ---
Internal Med Progress Note Date of Service: Feb 21, 2017. Provider Documentation: SUBJECTIVE: The patient was seen and examined Remains SOB with minimal improvement Complains of Cough and can not bring it up Clinically not any better OBJECTIVE: Vital Signs-as noted below Exam: General-Distress with minimal activity Eyes-normal ENT-normal Neck-Supple Lungs-Severely decreased breath sound ,more on the right side than left Minimal wheezing all over Heart-Regular Abdomen-Benign,no masses,bowel sound present Extremities-No edema Neuro-AAOx3 Lab data as noted below. ASSESSMENT & PLAN: Chronic obstructive pulmonary disease exacerbation secondary to possible aspiration pneumonia, Possible sepsis CTA::1. Emphysematous change. 2. Study is negative for pulmonary embolus. 3. Focal patchy parenchymal infiltrate peripheral aspect right mid lung. Continue Unasyn,Steroid and Bronchodilators Swallowing Evaluation-appreciate Input Clinically a little better and Lactic acid improved Will try Mucomyst for more expectoration Not any better -Pulmonary consulted IV Methylprednisone and IV Azithromycin added Likely home in AM Acute on chronic respiratory failure, oxygenation seems to be at baseline. Continue supplemental O2. OP pulmonary follow ups Ongoing tobacco abuse. Nicotine patch Hypertension, blood pressure on the lower side. DM2 diet controlled, well controlled as of recent outpatient A1c of 5.9 last January 2017. ISS BG goal 140-180, may need basal insulin to attain goal with anticipated hyperglycemia from steroid therapy. Blood sugar is maintaining Alcohol abuse as per records. DT precautions DVT prophylaxis Lovenox subcutaneous Full code. Vital Signs: Date Time Temp Pulse Resp B/P (MAP) Pulse Ox O2 Delivery O2 Flow Rate FiO2 02/21/17 08:30 Nasal Cannula 4.0 02/21/17 07:37 63 18 98 Nasal Cannula 4.0 02/21/17 07:26 36.3 60 18 138/76 (96) 98 3.5 02/21/17 01:34 69 18 99 Nasal Cannula 4.0 02/20/17 23:44 36.5 74 20 123/70 (87) 98 Nasal Cannula 3.5 02/20/17 23:27 Nasal Cannula 4.0 02/20/17 19:50 69 18 94 Nasal Cannula 3.5 02/20/17 16:22 96 Nasal Cannula 3.0 02/20/17 15:39 37.0 76 18 136/64 (88) 98 Nasal Cannula 3.0 Lab Results: Results Past 24 Hours Test 02/20/17 16:21 1/10/18 20:06 02/21/17 07:22 02/21/17 11:26 Range/Units Bedside Glucose 313 236 127 205 70-99 mg/dl
[2017-02-21 15:30] VITALS: BP 120/69; PULSE 74; TEMP 36.3; O2SAT 98
[2017-02-21] MEDS: METHYLPREDNISOLONE IV 40 MG in SYRINGE 0 ML IV SCH ×2 (15:59→21:32)
[2017-02-21] MEDS: AZITHROMYCIN IV 500 MG in DEXTROSE 5% 250ML 250 ML IV SCH (15:59)
--- NOTE | 2017-02-21 18:07 | Pulmonary Consultation ---
History General Date of Service: Feb 21, 2017. Stated Complaint: Copd Exacerbation HPI The patient is a 67 year old male who presents to [facility] with complaints of Copd Exacerbation. The patient's primary care provider is Derrell Schmidt M.D.(S[facility]NCHE[facility]). Patient has a long history of COPD, dependent on oxygen at home, with poor exercise tolerance, still smoking heavily came to the hospital for worsening of his symptoms, having severe dyspnea even at rest. Denies fever or chills, denies increased sputum production. Denies chest pain or LE swelling Today he was only able to ambulate about 50 ft, with severe shortness of breath Historian: patient Review of Systems Per HPI Past Medical History Past Medical History: COPD, diabetes, hypothyroidism, other Past Surgical History: other Family History Cancer Diabetes mellitus Kidney disease Kidney stones Lung disease Social History Hx Tobacco Use In Past Year?: Yes (1 PPD) Smoking Status: Current Every Day Smoker Alcohol: socially, daily, other Drug Use: none Marital status: single Housing status: lives alone Occupational Status: retired Immunizations History of Influenza Vaccine: N/A History of Tetanus Vaccine?: Yes Tetanus Immunization Date: Jul 17, 2010 History of Pneumococcal: Yes Pneumococcal Date: Dec 06, 2008 History of Hepatitis B Vaccine: No History of MDRO History of MDRO: No Allergies Coded Allergies: Poultry Meal (Verified Allergy, Intermediate, TURKEY - HIVES, RASH, NAUSEA , 01/10/17) NOT CHICKEN, ONLY TURKEY Current Medications Reported Home Medications Medications Dose Route/Sig Max Daily Dose Days Date Category Dose Instructions Multivitamin (Multivitamins) Tab 1 Tab PO QAM 01/10/17 Reported Calan (Verapamil HCl) 120 Mg Tab 120 Mg PO QAM 01/10/17 Reported Zestril (Lisinopril) 20 Mg Tab 20 Mg PO QAM 01/10/17 Reported Colace (Docusate Sodium) 100 Mg Cap 100 Mg PO QAM 11/16/16 Reported Budesonide 0.5 Mg/2 Ml Nebu 1 Vial NEB BID 11/16/16 Reported Brovana (Arformoterol Tartrate) 15 Mcg/2 Ml Neb 15 Mcg NEB BID 11/16/16 Reported Lasix (Furosemide) 20 Mg Tab 20 Mg PO DAILY 11/16/16 Reported Proventil 0.083% 2.5MG/3ML (Albuterol Sulf) 2.5 Mg/3 Ml Nebu 2.5 Mg NEB QID PRN 07/14/16 Reported Ventolin Hfa (Albuterol) 200 Puffs/48368 Mcg Aers 2 Puffs INH QID PRN 06/22/16 Reported Atorvastatin Calcium (Atorvastatin) 40 Mg Tab 40 Mg PO DAILY 06/22/16 Reported Combivent Respimat (Ipratropium-Albuterol) 1 Aer Aer 2 Puffs PO Q6H PRN 04/27/16 Reported Synthroid (Levothyroxine Sodium) 50 Mcg Tab 50 Mcg PO DAILY 03/10/12 Reported TAKE THIS MEDICATION AT LEAST 30 MINUTES BEFORE BREAKFAST OR ANY OTHER MEDICATIONS Oxygen Gas 3.5 Liters NA CONTINOUS 06/14/11 Reported Neurontin (Gabapentin) 300 Mg Cap 300 Mg PO QAM 06/14/11 Reported Physical Physical Exam Vital Signs: Date Time Temp Pulse Resp B/P (MAP) Pulse Ox O2 Delivery O2 Flow Rate FiO2 02/21/17 16:00 Nasal Cannula 3.5 02/21/17 15:30 36.3 74 20 120/69 (86) 98 4.0 02/21/17 08:30 Nasal Cannula 4.0 02/21/17 07:37 63 18 98 Nasal Cannula 4.0 02/21/17 07:26 36.3 60 18 138/76 (96) 98 3.5 02/21/17 01:34 69 18 99 Nasal Cannula 4.0 02/20/17 23:44 36.5 74 20 123/70 (87) 98 Nasal Cannula 3.5 02/20/17 23:27 Nasal Cannula 4.0 02/20/17 19:50 69 18 94 Nasal Cannula 3.5 General: moderate respiratory distress Lungs: Very diminished b/l, with faint expiratory wheezing and prolonged expiratory phase CVS: S1S2 reg Abd: soft Ext: no edema on LE Diagnostics Labs Results Past 24 Hours Test 02/20/17 20:06 02/21/17 07:22 02/21/17 11:26 02/21/17 16:23 Range/Units Bedside Glucose 236 127 205 247 70-99 mg/dl Diagnostic Radiology CT chest 02/19/17: FINDINGS: The pulmonary vasculature enhances appropriately. No significant filling defect. Bilateral emphysematous change. Peripheral parenchymal infiltrative process peripheral aspect right midlung. Slight peribronchial thickening. Lungs otherwise are clear. IMPRESSION: 1. Emphysematous change. 2. Study is negative for pulmonary embolus. 3. Focal patchy parenchymal infiltrate peripheral aspect right mid lung. Impression Assessment and Plan COPD exacerbation Active smoker Plan: Increase steroids to Solumedrol 40 mg every 6 hours Add azithromycin to cover atypical bacteria Continue bronchodilators Reinstitute Tudorza prior to discharge OOB to chair Per patient, he takes Breo and Serevent at home, not very clear though about his regimen. Would keep him on Breo Ellipta eventually. For now, on IV steroids Ambulate patient as tolerated Counseled for smoking cessation DVT prophylaxis: Lovenox
[2017-02-21 19:52] VITALS: PULSE 65; O2SAT 98
[2017-02-21] MEDS ORDERED: PHARMACY GLYCEMIC MGMT CONSULT SCH (20:58)
[2017-02-21 23:25] VITALS: BP 135/69; PULSE 63; TEMP 36.4; O2SAT 94
[2017-02-22] VITALS (7 sets, daily range): BP systolic 144–151; BP diastolic 68–72; PULSE 64–91; TEMP 36.4–36.9; O2SAT 92–100
[2017-02-22] MEDS: AMPICILLIN/SULBACTAM SOD INJ 3,000 MG in SODIUM CHLORIDE 0.9% 100ML 100 ML IV SCH ×5 (00:33→23:51)
[2017-02-22] MEDS ORDERED: INSULIN ASPART 100 UNITS/ML 3 ML PEN SC SCH (02:00)
[2017-02-22] MEDS: IPRATROPIUM BROMIDE NEB SOLN 0.02% 2.5 ML VIAL INH SCH ×4 (02:01→19:26)
[2017-02-22] MEDS: LEVALBUTEROL 1.25MG/0.5ML NEB INH SCH ×4 (02:01→19:26)
[2017-02-22] MEDS: METHYLPREDNISOLONE IV 40 MG in SYRINGE 0 ML IV SCH ×4 (04:45→21:39)
[2017-02-22] MEDS: LEVOTHYROXINE 50 MCG TAB PO SCH (05:31)
[2017-02-22] MEDS: ACETYLCYSTEINE 20% INHAL SOLN ***DISPENSED BY RESP. INH SCH ×2 (07:03→19:27)
[2017-02-22 08:09] LABS: BASO % 0.1 %; BASO ABS # 0.01 K/uL (0-0.2); HEMOGLOBIN 11.2 g/dL (14.0-18.0); IG# 0.07 K/uL (0.00-0.02); LYMPH % 3.6 %; LYMPH ABS # 0.47 K/uL (1.2-3.4); MEAN CELL VOLUME 97.7 fL (80-100); MEAN CORPUSCULAR HEMOGLOBIN 32.2 pg (25-34); MEAN CORPUSCULAR HGB CONC 32.9 g/dl (32-36); MEAN PLATELET VOLUME 10.5 fL (7.4-10.4); MONO % 1.2 %; MONO ABS # 0.15 K/uL (0.11-0.59); NEUT % 94.6 %; NEUT ABS # 12.28 K/uL (1.4-6.5); PLATELET COUNT 225 K/uL (130-400); RED CELL DISTRIBUTION WIDTH CV 12.2 % (11.5-14.5); RED CELL DISTRIBUTION WIDTH SD 43.3 fL (36.4-46.3); WHITE BLOOD COUNT 12.98 K/uL (4.8-10.8)
[2017-02-22] MEDS: MULTIVITAMIN TAB PO SCH (08:26)
[2017-02-22] MEDS: THIAMINE HCL 100 MG TAB PO SCH (08:26)
[2017-02-22] MEDS: DOCUSATE SODIUM 100 MG CAP PO SCH (08:27)
[2017-02-22] MEDS: FLINTSTONES COMPLETE CHEWABLE TAB PO SCH (08:27)
[2017-02-22] MEDS: VERAPAMIL HCL 120 MG TABCR PO SCH (08:27)
[2017-02-22] MEDS: ENOXAPARIN 40 MG/0.4 ML SYR SQ SCH (08:27)
[2017-02-22] MEDS: LISINOPRIL 20 MG TAB PO SCH (08:27)
[2017-02-22] MEDS: ATORVASTATIN 40 MG TAB PO SCH (08:28)
[2017-02-22] MEDS: INSULIN ASPART 100 UNITS/ML 3 ML PEN SC SCH ×4 (08:32→21:40)
[2017-02-22] MEDS: INSULIN GLARGINE SOLOSTAR 100 UNITS/ML 3 ML PEN SC SCH ×2 (08:33→21:41)
[2017-02-22] MEDS: POLYETHYLENE (MIRALAX) 17 GM PACK PO SCH (08:33)
--- NOTE | 2017-02-22 10:05 | Pharmacy Progress Note ---
Glycemic Control Intl Consult Date of Service Feb 22, 2017. Scope Glycemic Pharmacist consulted by Dr Arita on 02/21/17 for glycemic control and to write orders per [facility] inpatient glycemic control protocol Objective Weight (Kilograms): 78.000 Accuchecks BSG (last 24hrs): Test 02/21/17 11:26 02/21/17 16:23 02/21/17 20:26 02/22/17 02:03 Bedside Glucose 205 mg/dl (70-99) 247 mg/dl (70-99) 335 mg/dl (70-99) 250 mg/dl (70-99) Test 02/22/17 07:35 Bedside Glucose 223 mg/dl (70-99) Laboratory Data (last 24hrs) Test 02/22/17 07:45 White Blood Count 12.98 K/uL Red Blood Count 3.48 M/uL Hemoglobin 11.2 g/dL Hematocrit 34.0 % Mean Corpuscular Volume 97.7 fL Mean Corpuscular Hemoglobin 32.2 pg Mean Corpuscular Hemoglobin Concent 32.9 g/dl Platelet Count 225 K/uL Mean Platelet Volume 10.5 fL Neutrophils (%) (Auto) 94.6 % Lymphocytes (%) (Auto) 3.6 % Monocytes (%) (Auto) 1.2 % Eosinophils (%) (Auto) 0.0 % Basophils (%) (Auto) 0.1 % Neutrophils # (Auto) 12.28 K/uL Lymphocytes # (Auto) 0.47 K/uL Monocytes # (Auto) 0.15 K/uL Eosinophils # (Auto) 0.00 K/uL Basophils # (Auto) 0.01 K/uL HbA1c 7% on 11/17/16 Recent Pertinent Medications Outpatient Anti-diabetic Regimen: * N/A The patient is currently receiving: * Basal insulin: Lantus 10 units every 12 hours * Correctional Insulin: Novolog Correction per scale ACHS Goal Range: Low 140 mg/dL - High 180 mg/dL Correction Factor: 20 mg/dL/unit * Prandial insulin: Per carb ratio of 1 unit per 7 grams CHO consumed Risk Factors for Insulin Resistance: * Steroids * Infection * Diet * Baseline DM - untreated Assessment & Plan ASSESSMENT: * 67yo male with "diet controlled" diabetes, now with moderate/severe steroid induced hyperglycemia. * Patient is insulin naive - will use weight based dosing * Since total daily dose of Solumedrol is >80mg/day will use weight and stress of 3 and titrate based on BSG trends and step down in steroid dosing PLAN FOR INPATIENT GLYCEMIC CONTROL: * Basal insulin * Lantus 30 units (0.38units/kg) SQ x 1 dose this AM then, * Lantus 13-19 units SQ BID * Bolus insulin * NovoLog per scale ACHS or Q6hrs while NPO * Goal Range: Low 110 mg/dL - High 140 mg/dL * Correction Factor: 20 mg/dL/unit * Nutritional / Prandial insulin per carb ratio of 1 unit per 7 grams CHO consumed Looking ahead to discharge: * Patient may benefit from starting metformin at discharge to help prevent the progression of diabetes * Pt may require a short term course of NPH to cover steroid induced hyperglycemia if prednisone taper is continued at discharge * Please note that the plan above was derived based on current level of insulin resistance and hospital stress. These recommendations are appropriate for inpatient admission only. Plan of care upon discharge will need to be reassessed to avoid potential outpatient hypo/hyperglycemia. Thank you.
[2017-02-22] MEDS ORDERED: INSULIN GLARGINE SOLOSTAR 100 UNITS/ML 3 ML PEN SC SCH (11:30)
[2017-02-22] MEDS ORDERED: GABAPENTIN 600MG Q24H DOSE PO SCH (12:00)
[2017-02-22] MEDS: AZITHROMYCIN IV 500 MG in DEXTROSE 5% 250ML 250 ML IV SCH (15:53)
--- NOTE | 2017-02-22 16:04 | Progress Note ---
Internal Med Progress Note Date of Service: Feb 22, 2017. Provider Documentation: SUBJECTIVE: The patient was seen and examined Remains SOB with minimal improvement Complains of Cough and can not bring it up Remains weak and lethargic OBJECTIVE: Vital Signs-as noted below Exam: General-Distress with minimal activity No distress at rest Eyes-normal ENT-normal Neck-Supple Lungs-Severely decreased breath sound ,more on the right side than left Minimal wheezing all over Heart-Regular Abdomen-Benign,no masses,bowel sound present Extremities-No edema Neuro-AAOx3 Lab data as noted below. ASSESSMENT & PLAN: Chronic obstructive pulmonary disease exacerbation secondary to possible aspiration pneumonia, Possible sepsis CTA::1. Emphysematous change. 2. Study is negative for pulmonary embolus. 3. Focal patchy parenchymal infiltrate peripheral aspect right mid lung. Continue Unasyn,Steroid and Bronchodilators Swallowing Evaluation-appreciate Input Clinically a little better and Lactic acid improved Will try Mucomyst for more expectoration Not any better -Pulmonary consulted IV Methylprednisone and IV Azithromycin added Clinically a little better Likely discharge tomorrow Acute on chronic respiratory failure, oxygenation seems to be at baseline. Continue supplemental O2. OP pulmonary follow ups-made already Ongoing tobacco abuse. Nicotine patch Hypertension, blood pressure on the lower side. DM2 diet controlled, well controlled as of recent outpatient A1c of 5.9 last January 2017. ISS BG goal 140-180, may need basal insulin to attain goal with anticipated hyperglycemia from steroid therapy. Blood sugar is maintaining Alcohol abuse as per records. DT precautions DVT prophylaxis Lovenox subcutaneous Full code. will discharge tomorrow Vital Signs: Date Time Temp Pulse Resp B/P (MAP) Pulse Ox O2 Delivery O2 Flow Rate FiO2 02/22/17 15:18 36.9 64 20 144/68 (93) 100 4.0 02/22/17 14:08 91 20 95 Nasal Cannula 4.0 02/22/17 08:30 Nasal Cannula 4.0 02/22/17 07:47 36.4 84 20 145/70 (95) 99 6.0 02/22/17 07:03 91 20 92 Nasal Cannula 5.0 02/22/17 02:01 71 20 97 Nasal Cannula 3.5 02/22/17 00:25 Nasal Cannula 4.0 02/21/17 23:25 36.4 63 22 135/69 (91) 94 Nasal Cannula 3.5 02/21/17 19:52 65 24 98 Nasal Cannula 3.5 Lab Results: Results Past 24 Hours Test 02/21/17 16:23 02/21/17 20:26 02/22/17 02:03 02/22/17 07:35 Range/Units Bedside Glucose 247 335 250 223 70-99 mg/dl Test 02/22/17 07:45 02/22/17 11:31 Range/Units White Blood Count 12.98 4.8-10.8 K/uL Red Blood Count 3.48 4.7-6.1 M/uL Hemoglobin 11.2 14.0-18.0 g/dL Hematocrit 34.0 42-52 % Mean Corpuscular Volume 97.7 80-100 fL Mean Corpuscular Hemoglobin 32.2 25-34 pg Mean Corpuscular Hemoglobin Concent 32.9 32-36 g/dl Platelet Count 225 130-400 K/uL Mean Platelet Volume 10.5 7.4-10.4 fL Neutrophils (%) (Auto) 94.6 % Lymphocytes (%) (Auto) 3.6 % Monocytes (%) (Auto) 1.2 % Eosinophils (%) (Auto) 0.0 % Basophils (%) (Auto) 0.1 % Neutrophils # (Auto) 12.28 1.4-6.5 K/uL Lymphocytes # (Auto) 0.47 1.2-3.4 K/uL Monocytes # (Auto) 0.15 0.11-0.59 K/uL Eosinophils # (Auto) 0.00 0-0.5 K/uL Basophils # (Auto) 0.01 0-0.2 K/uL RDW Standard Deviation 43.3 36.4-46.3 fL RDW Coefficient of Variation 12.2 11.5-14.5 % Immature Granulocyte % (Auto) 0.5 % Immature Granulocyte # (Auto) 0.07 0.00-0.02 K/uL Bedside Glucose 207 70-99 mg/dl
[2017-02-23] MEDS: IPRATROPIUM BROMIDE NEB SOLN 0.02% 2.5 ML VIAL INH SCH ×3 (01:58→14:23)
[2017-02-23 01:59] VITALS: PULSE 93; O2SAT 95
[2017-02-23] MEDS: LEVALBUTEROL 1.25MG/0.5ML NEB INH SCH ×3 (01:59→14:23)
[2017-02-23] MEDS: METHYLPREDNISOLONE IV 40 MG in SYRINGE 0 ML IV SCH ×2 (03:39→11:01)
[2017-02-23] MEDS: LEVOTHYROXINE 50 MCG TAB PO SCH (05:37)
[2017-02-23] MEDS: AMPICILLIN/SULBACTAM SOD INJ 3,000 MG in SODIUM CHLORIDE 0.9% 100ML 100 ML IV SCH ×2 (05:37→11:01)
[2017-02-23] MEDS: ACETYLCYSTEINE 20% INHAL SOLN ***DISPENSED BY RESP. INH SCH (07:22)
[2017-02-23 07:53] VITALS: PULSE 60; O2SAT 99
[2017-02-23 07:55] VITALS: BP 168/83; PULSE 67; TEMP 36.4; O2SAT 100
[2017-02-23] MEDS: FLINTSTONES COMPLETE CHEWABLE TAB PO SCH (08:17)
[2017-02-23] MEDS: VERAPAMIL HCL 120 MG TABCR PO SCH (08:17)
[2017-02-23] MEDS: DOCUSATE SODIUM 100 MG CAP PO SCH (08:17)
[2017-02-23] MEDS: MULTIVITAMIN TAB PO SCH (08:18)
[2017-02-23] MEDS: POLYETHYLENE (MIRALAX) 17 GM PACK PO SCH (08:18)
[2017-02-23] MEDS: ATORVASTATIN 40 MG TAB PO SCH (08:18)
[2017-02-23] MEDS: LISINOPRIL 20 MG TAB PO SCH (08:18)
[2017-02-23] MEDS: THIAMINE HCL 100 MG TAB PO SCH (08:18)
[2017-02-23] MEDS: INSULIN ASPART 100 UNITS/ML 3 ML PEN SC SCH ×2 (08:23→12:34)
[2017-02-23] MEDS: INSULIN GLARGINE SOLOSTAR 100 UNITS/ML 3 ML PEN SC SCH (08:24)
[2017-02-23] MEDS: ENOXAPARIN 40 MG/0.4 ML SYR SQ SCH (08:24)
--- NOTE | 2017-02-23 10:09 | Pharmacy Progress Note ---
Pharmacy Glycemic Short Note 2 Date of Service Feb 23, 2017. OUTPATIENT ANTIDIABETIC REGIMEN: * N/A --> diet controlled? ASSESSMENT: * 67yo male with "diet controlled" diabetes, now with moderate/severe steroid induced hyperglycemia. * 02/22/17: Started weight based high stress SQ basal bolus insulin dosing for high dose RTC steroids. Since total daily dose of Solumedrol is >80mg/day will use weight and stress of 3 and titrate based on BSG trends and step down in steroid dosing * 02/23/17: Patient has received 86 units of SQ insulin over the past 24 hrs * AM fasting BSG is in goal range at 146 mg/dl --> no changes needed to basal insulin * Post-prandial BSGs slightly elevated at 207, 194, 203 --> will tighten CF/CR * Will continue to titrate doses daily and decrease insulin regimen with each step down in steroid dosing PLAN FOR INPATIENT GLYCEMIC CONTROL: * Basal insulin: no change * Lantus 13-19 units SQ BID * Bolus insulin: tighten CR * NovoLog per scale ACHS or Q6hrs while NPO * Goal Range: Low 110 mg/dL - High 140 mg/dL * Correction Factor: 20 mg/dL/unit * Nutritional / Prandial insulin per carb ratio of 1 unit per 6 grams CHO consumed Looking ahead to discharge: * Patient may benefit from starting metformin at discharge to help prevent the progression of diabetes * Pt may require a short term course of NPH to cover steroid induced hyperglycemia if prednisone taper is continued at discharge
[2017-02-23 11:26] LABS: CALCIUM 9.1 mg/dl (8.5-10.1); CREATININE 0.99 mg/dl (0.60-1.40); POTASSIUM 4.2 mmol/L (3.5-5.1)
--- NOTE | 2017-02-23 13:24 | Progress Note ---
Internal Med Progress Note Date of Service: Feb 23, 2017. Provider Documentation: SUBJECTIVE: The patient was seen and examined Remains SOB with minimal improvement Remains stable and ready to be discharged OBJECTIVE: Vital Signs-as noted below Exam: General-Distress with minimal activity No distress at rest Eyes-normal ENT-normal Neck-Supple Lungs-Severely decreased breath sound ,more on the right side than left No wheezing Heart-Regular Abdomen-Benign,no masses,bowel sound present Extremities-No edema Neuro-AAOx3 Lab data as noted below. ASSESSMENT & PLAN: Chronic obstructive pulmonary disease exacerbation secondary to possible aspiration pneumonia, Possible sepsis CTA::1. Emphysematous change. 2. Study is negative for pulmonary embolus. 3. Focal patchy parenchymal infiltrate peripheral aspect right mid lung. Continue Unasyn,Steroid and Bronchodilators Swallowing Evaluation-appreciate Input Clinically a little better and Lactic acid improved Will try Mucomyst for more expectoration Not any better -Pulmonary consulted IV Methylprednisone and IV Azithromycin added Clinically stable to be discharged Prednisone taper and oral Azithromycin Acute on chronic respiratory failure, oxygenation seems to be at baseline. Continue supplemental O2. OP pulmonary follow ups-made already Ongoing tobacco abuse. Nicotine patch Hypertension, blood pressure on the lower side. DM2 diet controlled, well controlled as of recent outpatient A1c of 5.9 last January 2017. ISS BG goal 140-180, may need basal insulin to attain goal with anticipated hyperglycemia from steroid therapy. Blood sugar is maintaining Alcohol abuse as per records. DT precautions DVT prophylaxis Lovenox subcutaneous Full code. Discharge today Vital Signs: Date Time Temp Pulse Resp B/P (MAP) Pulse Ox O2 Delivery O2 Flow Rate FiO2 02/23/17 08:20 Nasal Cannula 4.0 02/23/17 07:55 36.4 67 168/83 (111) 100 Nasal Cannula 4.0 02/23/17 07:53 60 16 99 Nasal Cannula 4.0 02/23/17 01:59 93 20 95 Nasal Cannula 4.0 02/23/17 00:01 Nasal Cannula 4.0 02/22/17 22:37 36.9 70 18 151/72 (98) 97 Nasal Cannula 3.0 02/22/17 19:30 89 20 98 Nasal Cannula 4.0 02/22/17 16:00 Nasal Cannula 4.0 02/22/17 15:18 36.9 64 20 144/68 (93) 100 4.0 02/22/17 14:08 91 20 95 Nasal Cannula 4.0 Lab Results: Results Past 24 Hours Test 02/22/17 16:47 02/22/17 19:46 02/23/17 07:37 02/23/17 10:27 Range/Units Bedside Glucose 194 203 146 70-99 mg/dl Sodium Level 137 136-145 mmol/L Potassium Level 4.2 3.5-5.1 mmol/L Chloride Level 98 98-107 mmol/L Carbon Dioxide Level 38 21-32 mmol/L Anion Gap 1.0 3-11 mmol/L Blood Urea Nitrogen 28 7-18 mg/dl Creatinine 0.99 0.60-1.40 mg/dl Est Creatinine Clear Calc Drug Dose 76.8 ml/min Estimated GFR () 92.2 Estimated GFR (Non- 79.6 BUN/Creatinine Ratio 28.4 10-20 Random Glucose 207 70-99 mg/dl Calcium Level 9.1 8.5-10.1 mg/dl Phosphorus Level 3.0 2.5-4.9 mg/dl Magnesium Level 2.4 1.8-2.4 mg/dl Test 02/23/17 11:45 Range/Units Bedside Glucose 232 70-99 mg/dl
[2017-02-23] MEDS ORDERED: PRED10TA PO (13:29)
[2017-02-23] MEDS ORDERED: AZIT-57 PO (13:29)
[2017-02-23] MEDS ORDERED: THM100 PO (13:29)
[2017-02-23] MEDS ORDERED: FLV1 PO (13:29)
--- NOTE | 2017-02-23 13:33 | Discharge Instructions ---
Discharge Instructions Date of Service Feb 23, 2017. Admission Reason for Admission: Copd Exacerbation Discharge Discharge Diagnosis / Problem: COPD exacerbation,Pneumionia Discharge Goals Goal(s): Prevent Disease Progression Activity Recommendations Activity Limitations: resume your previous activity . Instructions / Follow-Up Instructions / Follow-Up Dr Schmidt in 1 week-will call with appointment.pl keep appointment with Pulmonary Current Hospital Diet Patient's current hospital diet: AHA Diet (Heart Healthy), Diabetes Type 2 Diet Discharge Diet Recommended Diet: AHA Diet (Heart Healthy), Diabetes Type 2 Diet Fluid Restriction: 1500 ml (6 cups) Pending Studies Studies pending at discharge: no Medical Emergencies . Who to Call and When: Medical Emergencies: If at any time you feel your situation is an emergency, please call 911 immediately. . Non-Emergent Contact Non-Emergency issues call your: Primary Care Provider . Past History Medical & Surgical History: (1) Pneumonia involving right lung (2) COPD exacerbation (3) Diab Willa Wo Compl, Type Ii Or Unspec Type, Not Uncntrld (4) Chronic respiratory failure (5) TIA (transient ischemic attack) (6) GERD (gastroesophageal reflux disease) (7) Esophageal stenosis (8) Superficial thrombophlebitis (9) BPH (benign prostatic hyperplasia) (10) Hypothyroidism (11) Depression . "Provider Documentation" section prepared by Shalini Madsen. . VTE Core Measure Inpt VTE Proph given/why not?: Enoxaparin (Lovenox)SQ
[2017-02-23] MEDS ORDERED: GLC500 PO (13:34)
[2017-02-23 13:43] VITALS: BP 168/83; PULSE 67; TEMP 36.4; O2SAT 100
[2017-02-23 14:23] VITALS: PULSE 78; O2SAT 98
--- NOTE | 2017-02-24 08:29 | Discharge Summary ---
Discharge Summary Date of Service Feb 24, 2017. Discharge Summary Admission Date: Feb 18, 2017 at 21:24 Discharge Date: Feb 23, 2017 Discharge Disposition: Home with services Principal Diagnosis: COPD exacerbation,Pneumonia Secondary Diagnoses/Problems: Please see H&P and Hospital progress note Consultations: Pulmonary Medication Reconciliation New Medications: Azithromycin (Azithromycin) 250 Mg Tab 250 MG PO DAILY, #3 Metformin HCl (Metformin HCl) 500 Mg Tab 500 MG PO BID, #60 Prednisone Tab (Prednisone) 10 Mg Tab 10 MG PO UD for 12 Days, #30 TAB 4 po daily for 3 days,3 po daily for 3 days,2 po daily for 3 dasy and then 1 po daily for 3 days Folic Acid (Folic Acid) 1 Mg Tab 1 MG PO QAM for 30 Days, #30 TAB Thiamine HCl (Vitamin B-1) 100 Mg Tab 100 MG PO QAM for 30 Days, #30 TAB Continued Medications: Albuterol Hfa (Ventolin Hfa) 200 Puffs/04667 Mcg Aers 2 PUFFS INH QID PRN for Shortness of Breath Albuterol Sulf (Proventil 0.083% 2.5MG/3ML) 2.5 Mg/3 Ml Nebu 2.5 MG NEB QID PRN for SOB/Wheezing, EA Arformoterol Tartrate (Brovana) 15 Mcg/2 Ml Neb 15 MCG NEB BID, INHALER Atorvastatin (Lipitor) 40 Mg Tab 40 MG PO DAILY Budesonide (Budesonide) 0.5 Mg/2 Ml Nebu 1 VIAL NEB BID, ML Docusate Sodium (Colace) 100 Mg Cap 100 MG PO QAM, CAP Furosemide (Lasix) 20 Mg Tab 20 MG PO DAILY, TAB Gabapentin (Neurontin) 300 Mg Cap 300 MG PO QAM Home O2 Therapy (Oxygen) Gas 3.5 LITERS NA CONTINOUS Ipratropium-Albuterol (Combivent Respimat) 1 Aer Aer 2 PUFFS PO Q6H PRN for SOB/Wheezing Levothyroxine Sodium (Synthroid) 50 Mcg Tab 50 MCG PO DAILY TAKE THIS MEDICATION AT LEAST 30 MINUTES BEFORE BREAKFAST OR ANY OTHER MEDICATIONS Lisinopril (Zestril) 20 Mg Tab 20 MG PO QAM, TAB Multivitamin (Multivitamin) Tab 1 TAB PO QAM, TAB Verapamil (Calan) 120 Mg Tab 120 MG PO QAM, TAB Admission Information HPI (per Admitting provider): DATE OF ADMISSION: 02/18/2017 PRIMARY CARE DOCTOR: Dr. Schmidt. CHIEF COMPLAINT: Shortness of breath. HISTORY OF PRESENT ILLNESS: History obtained from patient and records. Medical history significant for chronic respiratory failure secondary to COPD on home O2, ongoing tobacco abuse, hypertension, alcohol abuse as per records, DM2, diet controlled, esophageal stenosis status post dilatation, history of TIA as per records, chronic anemia (baseline hemoglobin of 12), mood disorder. Recent confinement last November 2016 for chest pain. Negative dobutamine stress test. In the last couple of days, increasing shortness of breath on exertion, cough productive of clear sputum, right-sided chest pain, pleuritic, increased wheezing. Denies sick contact. Admits to some coughing "choking" with some meals. At the Emergency Room, the patient received Levaquin, Solu-Medrol, neb treatment for COPD exacerbation. MEDICAL HISTORY: As above. SURGERIES: Urologic procedures. HOME MEDICATIONS: Include Ventolin, Proventil, Brovana, atorvastatin, budesonide, Colace, Lasix, Neurontin, home O2, Combivent, Synthroid, Zestril, multivitamins, Calan. ALLERGIES: Poultry. FAMILY HISTORY: There is a family history of heart disease. PERSONAL AND SOCIAL HISTORY: A pack to 1-1/2 pack daily. Alcohol abuse per records. Disabled. REVIEW OF SYSTEMS: As per HPI, all 10 systems reviewed, all other ROS negative. PHYSICAL EXAMINATION: VITAL SIGNS: Blood pressure was noted to be 107/62, pulse rate 84, RR 24, temperature 36.8, sats 97 on 3 liters. GENERAL: Noted to be in minimal respiratory distress. Slightly anxious. SKIN: Pallor. Warm. HEENT: Pale palpebral conjunctive. No ptosis. Dry mucosa. NECK: Supple. No tenderness. CHEST: Expiratory wheezes, no tenderness. HEART: Regular rate and rhythm. No murmur. ABDOMEN: Soft, nontender. EXTREMITIES: No edema. No gross deformities. No tenderness. NEUROLOGIC: Coherent. No gross focality. LABORATORY DATA: Hemoglobin was noted to be 12.6, hematocrit 36.2, white cell count 11.9, platelets noted to be 210. Sodium noted to be 136, potassium 4.2, chloride 96, CO2 32, BUN 15, creatinine 1, glucose 112, lactic acid was noted to be 2.1. Chest x-ray showed patchy consolidation right lung, emphysema. EKG as per my interpretation, rate 80, normal sinus rhythm, incomplete right bundle branch block. ABG: pH 7.39, pCO2 47, pO2 103, 97% on 3 liters. ASSESSMENT: 1. Chronic obstructive pulmonary disease exacerbation secondary to possible aspiration pneumonia, possible sepsis Rule out pulmonary embolism as etiology of pleuritic chest pain. 2. chronic respiratory failure, oxygenation seems to be at baseline. 3. Ongoing tobacco abuse. 3. Hypertension, blood pressure on the lower side. 4. DM2 diet controlled, well controlled as of recent outpatient A1c of 5.9 last January 2017. 5. Alcohol abuse as per records. 6. Chronic anemia, hemoglobin at baseline PLAN: GMF Continue supplemental O2. Unasyn, nebs, steroids. Swallow eval CT chest, PE study. May need Pulmonary consult for COPD exacerbation if without improvement following initial intervention IVF, follow lactic acid ISS BG goal 140-180, may need basal insulin to attain goal with anticipated hyperglycemia from steroid therapy. Nicotine patch. DT precautions DVT prophylaxis Lovenox subcutaneous Full code. Hospital Course Chronic obstructive pulmonary disease exacerbation secondary to possible aspiration pneumonia, Possible sepsis CTA::1. Emphysematous change. 2. Study is negative for pulmonary embolus. 3. Focal patchy parenchymal infiltrate peripheral aspect right mid lung. Continue Unasyn,Steroid and Bronchodilators Swallowing Evaluation-appreciate Input Clinically a little better and Lactic acid improved Will try Mucomyst for more expectoration Not any better -Pulmonary consulted IV Methylprednisone and IV Azithromycin added Clinically stable to be discharged Prednisone taper and oral Azithromycin Acute on chronic respiratory failure, oxygenation seems to be at baseline. Continue supplemental O2. OP pulmonary follow ups-made already Ongoing tobacco abuse. Nicotine patch Hypertension, blood pressure on the lower side. DM2 diet controlled, well controlled as of recent outpatient A1c of 5.9 last January 2017. ISS BG goal 140-180, may need basal insulin to attain goal with anticipated hyperglycemia from steroid therapy. Blood sugar is maintaining Alcohol abuse as per records. DT precautions DVT prophylaxis Lovenox subcutaneous Full code. Discharge today Total time spent on discharge = 35 minutes This includes examination of the patient, discharge planning, medication reconciliation, and communication with other providers. Discharge Instructions Date of Service Feb 23, 2017. Admission Reason for Admission: Copd Exacerbation Discharge Discharge Diagnosis / Problem: COPD exacerbation,Pneumionia Discharge Goals Goal(s): Prevent Disease Progression Activity Recommendations Activity Limitations: resume your previous activity . Instructions / Follow-Up Instructions / Follow-Up Dr Schmidt in 1 week-will call with appointment.pl keep appointment with Pulmonary Current Hospital Diet Patient's current hospital diet: AHA Diet (Heart Healthy), Diabetes Type 2 Diet Discharge Diet Recommended Diet: AHA Diet (Heart Healthy), Diabetes Type 2 Diet Fluid Restriction: 1500 ml (6 cups) Pending Studies Studies pending at discharge: no Medical Emergencies . Who to Call and When: Medical Emergencies: If at any time you feel your situation is an emergency, please call 911 immediately. . Non-Emergent Contact Non-Emergency issues call your: Primary Care Provider . Past History Medical & Surgical History: (1) Pneumonia involving right lung (2) COPD exacerbation (3) Diab Willa Wo Compl, Type Ii Or Unspec Type, Not Uncntrld (4) Chronic respiratory failure (5) TIA (transient ischemic attack) (6) GERD (gastroesophageal reflux disease) (7) Esophageal stenosis (8) Superficial thrombophlebitis (9) BPH (benign prostatic hyperplasia) (10) Hypothyroidism (11) Depression . "Provider Documentation" section prepared by Shalini Madsen. . VTE Core Measure Inpt VTE Proph given/why not?: Enoxaparin (Lovenox)SQ <Electronically signed by Shalini Madsen M.D.> Signed: 02/23/17 7424 Additional Copies To Derrell Schmidt M.D.(SÁNCHEZ)
== END 2017-02-23 15:34 | disposition home or self-care (01) | DRG 871 ==
LOC: EDBD 16:21 → C.EDA 16:23 → C.MS2W 21:24 → ENRESERV 22:04
PROVIDERS: ADMIT Internal Medicine; ATTEND Internal Medicine
DX: A41.9 Sepsis, unspecified organism (principal); J69.0 Pneumonitis due to inhalation of food and vomit; J96.20 Acute and chronic respiratory failure, unspecified whether with hypoxia or hypercapnia; J44.1 Chronic obstructive pulmonary disease with (acute) exacerbation; N40.0 Benign prostatic hyperplasia without lower urinary tract symptoms; F32.9 Major depressive disorder, single episode, unspecified; E11.9 Type 2 diabetes mellitus without complications; K21.9 Gastro-esophageal reflux disease without esophagitis; D64.9 Anemia, unspecified; F10.10 Alcohol abuse, uncomplicated; E03.9 Hypothyroidism, unspecified; F17.200 Nicotine dependence, unspecified, uncomplicated; Z86.73 Personal history of transient ischemic attack (TIA), and cerebral infarction without residual deficits; Z80.9 Family history of malignant neoplasm, unspecified; Z83.3 Family history of diabetes mellitus; Z99.81 Dependence on supplemental oxygen

== ENCOUNTER → 2017-03-05 | Day surgery (SDC) | payer OTHER ==
[2017-01-10 10:47] VITALS: BMI 27.0
[2017-03-01 15:13] VITALS: Ht 177.8 cm; Wt 80.9 kg
[~2017-03-05] VITALS: Ht 177.8 cm; Wt 80.9 kg
[~2017-03-05] MED LIST changes: +500ML BSS 0.3ML EPI 1:1000PF IRRIG ONE; +ACETAMINOPHEN 325 MG TAB PO PRN; +ALBINS/ NEB; +AMVISC PLUS 0.8ML SYRINGE INT OCU ONE; +ARFO15NE NEB; +ATROPINE SULFATE 0.1 MG/ML 5ML SYR IV PRN; +AZIT250T PO; +BSS FLUSH ONE; +CYCLOPENTOLATE HCL 1% OP SOLN PER DROP CHARGE OPR SCH; +DOCU-94 PO; +EpHEDrine SULFATE INJ 50 MG/ML AMP IV PRN; +EpINEphrine INJ 1MG/ML AMP 1 MG/ML AMP ONE; +FOLI1TAB8 PO; +GATIFLOXACIN OP SOLN PER DROP CHARGE OPR SCH; +IPRA1AER2 PO; +KETOROLAC 0.5% OP SOLN PER DROP CHARGE OPR SCH; +LACTATED RINGER'S 1000ML 500 ML IV SCH; +LEVO50TA PO; +LIDOCAINE 3.5% OPH GEL PER APPLICATION CHARGE ONE; +LIDOCAINE HCL 1% MPF 2 ML VIAL ONE; +MIDAZOLAM HCL 1 MG/ML 2ML VIAL ONE; -MULT-506 PO; +OCUCOAT 1 ML SOLN IO ONE; +PHENYLEPHRINE HCL 2.5% OP SOLN PER DROP CHARGE OPR SCH; +PLMINS NEB; +POVIDONE-IODINE OP SOLN 30 ML BTL ONE; +PRED10TA PO; +PROPARACAINE 0.5% OP SOLN PER DROP CHARGE OPR SCH; +THIA100T11 PO; +TOBRAMYCIN/DEXAMETHASONE OPH OINT PER APPLN CHARGE ONE; +TROPICAMIDE 1% OP SOLN PER DROP CHARGE OPR SCH
[2017-03-05] MEDS: PHENYLEPHRINE HCL 2.5% OP SOLN PER DROP CHARGE OPR SCH ×2 (10:08→10:14)
[2017-03-05] MEDS: TROPICAMIDE 1% OP SOLN PER DROP CHARGE OPR SCH ×2 (10:09→10:15)
[2017-03-05] MEDS: CYCLOPENTOLATE HCL 1% OP SOLN PER DROP CHARGE OPR SCH ×2 (10:10→10:16)
[2017-03-05] MEDS: KETOROLAC 0.5% OP SOLN PER DROP CHARGE OPR SCH ×2 (10:11→10:17)
[2017-03-05] MEDS: GATIFLOXACIN OP SOLN PER DROP CHARGE OPR SCH ×2 (10:13→10:25)
--- NOTE | 2017-03-05 10:29 | History & Physical Bridge - SC ---
H&P Re-Evaluation Bridge Note: I have examined the patient, reviewed the History & Physical and in the interval since the performance of the History & Physical I have noted the following changes of clinical significance: No changes noted
--- NOTE | 2017-03-05 11:16 | [facility] Operative Report ---
Operative Report Date of Service Mar 05, 2017. Operative Report 1. PREOPERATIVE DIAGNOSIS: Cataract of the right eye. 2. POSTOPERATIVE DIAGNOSIS: Same. 3. PROCEDURE: Phacoemulsification with intraocular lens implantation of the right eye. SURGEON: Dr. Mike Degroot. ANESTHESIA: Topical Lidocaine gel, 1% Non- Preserved intracameral Lidocaine, and monitored intravenous sedation. INDICATIONS FOR THE PROCEDURE: The patient is a 67 - year-old male with a history of cataract of the right eye causing significant visual impairment. The details of the proposed procedure were explained to the patient who asked appropriate questions and following discussion of all risks, benefits and alternatives agreed to have the procedure done. 4. OPERATION AND FINDINGS: DESCRIPTION OF PROCEDURE: After informed consent was obtained, the patient was brought to the Operating Room at the [facility]. The patient was placed in a supine position and then the right eye was prepped and draped in the usual sterile fashion for intraocular surgery. A drop of topical Lidocaine gel was placed in the operative eye. A wire lid speculum was then placed in the fornices. A corneal paracentesis was then created temporally. The Non-Preserved Lidocaine was then instilled into the anterior chamber. The anterior chamber was then pressurized with viscoelastic. A 2.0 mm clear corneal incision was then created temporally. A cystotome was inserted into the anterior chamber and used to create a tear in the anterior lens capsule. This capsular tear was then used to create a small flap and the flap was dragged in a counterclockwise direction in order to create a continuous curvilinear capsulorrhexis. Hydrodissection was accomplished with balanced salt solution. Phacoemulsification of the lens nucleus was then performed in a standard [id number] technique. The phaco time was 30 seconds with an average power of 22 %. The remaining cortical material was removed using irrigation aspiration. The capsular bag was then filled with viscoelastic. A B[employer]ch [employer] Lomb MI60L +18.0 diopters lens was then loaded into the injector and injected into the capsular bag. The remaining viscoelastic was removed with the irrigation aspiration handpiece. The wound was hydrated and then checked and found to be watertight. The intraocular pressure was checked and found to be adequate. The wire lid speculum was removed and the patient's face was cleaned and dried. TobraDex ointment was placed in the inferior fornix. The patient was discharged to the Recovery Room having tolerated the procedure well. There were no complications. The patient will be seen tomorrow in the office for follow-up. I attest to the content of the Intraoperative Record and any orders documented therein. Any exceptions are noted below.
--- NOTE | 2017-03-05 11:17 | Discharge Instructions-SurgCtr ---
Discharge Instructions Date of Service Mar 05, 2017. Visit Reason for Visit: Cataract Right Eye Discharge Discharge Diagnosis / Problem: cataract Discharge Goals Goal(s): Improve function Medications Stopped Medications Name(s): lasix Activity Recommendations Activity Limitations: per Instructions/Follow-up section Anesthesia . Post Anesthesia Instructions: If you have had General Anesthesia or IV Sedation: * Do not drive today. * Resume driving when surgeon permits. * Do not make important decisions or sign legal documents today. * Call surgeon for: 1. Temperature elevations greater than 101 degrees F. 2. Uncontrollable pain. 3. Excessive bleeding. 4. Persistent nausea and vomiting. 5. Medication intolerance (nausea, vomiting or rash). * For nausea and vomiting use only clear liquids such as: tea, soda, bouillon until nausea subsides, then gradually increase diet as tolerated. * If you have any concerns or questions, call your surgeon's office. If physician is unavailable and it is an emergency, call 911 or go to the nearest emergency room. . Diet Recommendations Home Diet: resume previous diet Procedures Procedures Performed: Right Cataract Phacoemulsification With Intraocular Lens Implant Pending Studies Studies pending at discharge: no Medical Emergencies . Who to Call and When: Medical Emergencies: If at any time you feel your situation is an emergency, please call 911 immediately. . Non-Emergent Contact Non-Emergency issues call your: Manager Financial Reporting . . "Provider Documentation" section prepared by Mike Degroot. .
[2017-03-05 11:20] VITALS: TEMP 37.1
--- NOTE | 2017-03-05 11:36 | Anesthesia Progress Nt - [facility] ---
Anesthesia Post Op Note Date & Time Mar 05, 2017 at 11:36 Vital Signs Pain Intensity: 0 Vital Signs Past 12 Hours Date Time Temp Pulse Resp B/P (MAP) Pulse Ox O2 Delivery O2 Flow Rate FiO2 03/05/17 11:20 37.1 67 18 93/61 (72) 100 Room Air 3 03/05/17 09:58 36.7 73 22 110/65 (80) 97 Room Air Notes Mental Status: alert / awake / arousable, participated in evaluation Pt Amnestic to Procedure: Yes Nausea / Vomiting: adequately controlled Pain: adequately controlled Airway Patency, RR, SpO2: stable & adequate BP & HR: stable & adequate Hydration State: stable & adequate Anesthetic Complications: no major complications apparent
[2017-03-05 11:43] VITALS: BP 118/58; PULSE 73; O2SAT 98
== END | disposition home or self-care (01) ==
LOC: X.SURG 08:32
PROVIDERS: ATTEND Ophthalmology
DX: H26.9 Unspecified cataract (principal); J44.9 Chronic obstructive pulmonary disease, unspecified; I10 Essential (primary) hypertension; E11.9 Type 2 diabetes mellitus without complications; E03.9 Hypothyroidism, unspecified; E78.5 Hyperlipidemia, unspecified; Z99.81 Dependence on supplemental oxygen; Z86.73 Personal history of transient ischemic attack (TIA), and cerebral infarction without residual deficits

== ENCOUNTER → 2017-03-26 | Day surgery (SDC) | payer OTHER ==
[2017-03-15 14:48] VITALS: Ht 177.8 cm; Wt 80.9 kg
[~2017-03-26] VITALS: Ht 177.8 cm; Wt 80.9 kg
[~2017-03-26] MED LIST changes: -AZIT250T PO; -CYCLOPENTOLATE HCL 1% OP SOLN PER DROP CHARGE OPR SCH; +FENTANYL CITRATE INJ 50 MCG/1 ML 2 ML VIAL ONE; -GATIFLOXACIN OP SOLN PER DROP CHARGE OPR SCH; -KETOROLAC 0.5% OP SOLN PER DROP CHARGE OPR SCH; -OCUCOAT 1 ML SOLN IO ONE; +ONDANSETRON INJ 2 MG/ML 2 ML VIAL IV PRN; -PHENYLEPHRINE HCL 2.5% OP SOLN PER DROP CHARGE OPR SCH; -PRED10TA PO; +PROPARACAINE 0.5% OP SOLN PER DROP CHARGE OPL SCH; -PROPARACAINE 0.5% OP SOLN PER DROP CHARGE OPR SCH; -TROPICAMIDE 1% OP SOLN PER DROP CHARGE OPR SCH
[2017-03-26 09:27] VITALS: TEMP 36.5
[2017-03-26] MEDS: PHENYLEPHRINE HCL 2.5% OP SOLN PER DROP CHARGE OPL SCH ×2 (09:37→09:42)
[2017-03-26] MEDS: TROPICAMIDE 1% OP SOLN PER DROP CHARGE OPL SCH ×2 (09:38→09:43)
[2017-03-26] MEDS: CYCLOPENTOLATE HCL 1% OP SOLN PER DROP CHARGE OPL SCH ×2 (09:39→09:44)
[2017-03-26] MEDS: KETOROLAC 0.5% OP SOLN PER DROP CHARGE OPL SCH ×2 (09:40→09:45)
[2017-03-26] MEDS: GATIFLOXACIN OP SOLN PER DROP CHARGE OPL SCH ×2 (09:41→09:53)
--- NOTE | 2017-03-26 11:09 | [facility] Operative Report ---
Operative Report Date of Service Mar 26, 2017. Operative Report 1. PREOPERATIVE DIAGNOSIS: Cataract of the left eye. 2. POSTOPERATIVE DIAGNOSIS: Same. 3. PROCEDURE: Phacoemulsification with intraocular lens implantation of the left eye. SURGEON: Dr. Mike Degroot. ANESTHESIA: Topical Lidocaine gel, 1% Non- Preserved intracameral Lidocaine, and monitored intravenous sedation. INDICATIONS FOR THE PROCEDURE: The patient is a 67 - year-old male with a history of cataract of the left eye causing significant visual impairment. The details of the proposed procedure were explained to the patient who asked appropriate questions and following discussion of all risks, benefits and alternatives agreed to have the procedure done. 4. OPERATION AND FINDINGS: DESCRIPTION OF PROCEDURE: After informed consent was obtained, the patient was brought to the Operating Room at the [facility]. The patient was placed in a supine position and then the left eye was prepped and draped in the usual sterile fashion for intraocular surgery. A drop of topical Lidocaine gel was placed in the operative eye. A wire lid speculum was then placed in the fornices. A corneal paracentesis was then created temporally. The Non-Preserved Lidocaine was then instilled into the anterior chamber. The anterior chamber was then pressurized with viscoelastic. A 2.0 mm clear corneal incision was then created temporally. A cystotome was inserted into the anterior chamber and used to create a tear in the anterior lens capsule. This capsular tear was then used to create a small flap and the flap was dragged in a counterclockwise direction in order to create a continuous curvilinear capsulorrhexis. Hydrodissection was accomplished with balanced salt solution. Phacoemulsification of the lens nucleus was then performed in a standard [id number] technique. The phaco time was 25 seconds with an average power of 19 %. The remaining cortical material was removed using irrigation aspiration. The capsular bag was then filled with viscoelastic. A [employer]ch [employer] Lomb MI60L +16.5 diopters lens was then loaded into the injector and injected into the capsular bag. The remaining viscoelastic was removed with the irrigation aspiration handpiece. The wound was hydrated and then checked and found to be watertight. The intraocular pressure was checked and found to be adequate. The wire lid speculum was removed and the patient's face was cleaned and dried. TobraDex ointment was placed in the inferior fornix. The patient was discharged to the Recovery Room having tolerated the procedure well. There were no complications. The patient will be seen tomorrow in the office for follow-up. I attest to the content of the Intraoperative Record and any orders documented therein. Any exceptions are noted below.
--- NOTE | 2017-03-26 11:10 | Discharge Instructions-[facility] ---
Discharge Instructions Date of Service Mar 26, 2017. Visit Reason for Visit: Left Cataract Discharge Discharge Diagnosis / Problem: cataract Discharge Goals Goal(s): Improve function Medications Stopped Medications Name(s): lasix, last dose approx 1 month ago Activity Recommendations Activity Limitations: per Instructions/Follow-up section Anesthesia . Post Anesthesia Instructions: If you have had General Anesthesia or IV Sedation: * Do not drive today. * Resume driving when surgeon permits. * Do not make important decisions or sign legal documents today. * Call surgeon for: 1. Temperature elevations greater than 101 degrees F. 2. Uncontrollable pain. 3. Excessive bleeding. 4. Persistent nausea and vomiting. 5. Medication intolerance (nausea, vomiting or rash). * For nausea and vomiting use only clear liquids such as: tea, soda, bouillon until nausea subsides, then gradually increase diet as tolerated. * If you have any concerns or questions, call your surgeon's office. If physician is unavailable and it is an emergency, call 911 or go to the nearest emergency room. . Diet Recommendations Home Diet: resume previous diet Procedures Procedures Performed: Left Cataract Phacoemulsification With Intraocular Lens Implant Pending Studies Studies pending at discharge: no Medical Emergencies . Who to Call and When: Medical Emergencies: If at any time you feel your situation is an emergency, please call 911 immediately. . Non-Emergent Contact Non-Emergency issues call your: Gastroenterology Nurse . . "Provider Documentation" section prepared by Mike Degroot. .
--- NOTE | 2017-03-26 11:27 | Anesthesia Progress Nt - [facility] ---
Anesthesia Post Op Note Date & Time Mar 26, 2017 at 11:27 Vital Signs Pain Intensity: 0 Vital Signs Past 12 Hours Date Time Temp Pulse Resp B/P (MAP) Pulse Ox O2 Delivery O2 Flow Rate FiO2 03/26/17 11:11 80 16 113/69 (84) 99 Room Air 03/26/17 09:27 36.5 79 24 91/63 (72) 100 Nasal Cannula 3.5 Notes Mental Status: alert / awake / arousable, participated in evaluation Pt Amnestic to Procedure: No Nausea / Vomiting: adequately controlled Pain: adequately controlled Airway Patency, RR, SpO2: stable & adequate BP & HR: stable & adequate Hydration State: stable & adequate Anesthetic Complications: no major complications apparent Non distressing recall as discussed preop
[2017-03-26 11:29] VITALS: BP 100/64; PULSE 77; O2SAT 95
--- NOTE | 2017-03-27 14:41 | DIAGNOSTIC IMAGING REPORT ---
SURGICNTR CHEST 1 VIEW PORTABL CLINICAL HISTORY: Dyspnea. COMPARISON STUDY: Chest radiograph and chest CT February 18, 2017. FINDINGS: Severe emphysema is noted. There is no pneumothorax or pleural effusion. There is no evidence for pulmonary edema. Cardiomediastinal silhouette is normal. Suspected right apical scarring is unchanged. Mild right upper lobe airspace opacity shown on prior CT and chest radiograph February 18, 2017 has improved. There is residual linear opacity. IMPRESSION: 1. Mild right upper lobe airspace opacity, improved since prior chest CT of February 18, 2017. This likely reflects resolving pneumonia. Follow-up chest radiograph in one month to ensure complete resolution is recommended. 2. Severe emphysema. Electronically signed by: Cam Perez M.D. 03/27/2017 2:39 PM Dictated Date/Time: 03/27/2017 2:36 PM
== END | disposition home or self-care (01) ==
LOC: X.SURG 08:18
PROVIDERS: ATTEND Ophthalmology
DX: H26.9 Unspecified cataract (principal); J44.9 Chronic obstructive pulmonary disease, unspecified; I48.91 Unspecified atrial fibrillation; E11.9 Type 2 diabetes mellitus without complications; I10 Essential (primary) hypertension; E03.9 Hypothyroidism, unspecified; K21.9 Gastro-esophageal reflux disease without esophagitis; E78.5 Hyperlipidemia, unspecified; Z86.73 Personal history of transient ischemic attack (TIA), and cerebral infarction without residual deficits; Z87.442 Personal history of urinary calculi; Z99.81 Dependence on supplemental oxygen

== ENCOUNTER 2018-02-21 00:43 | Inpatient (IN) ==
[2018-02-21] MEDS ORDERED: MAGNESIUM SULFATE 1GM / D5W BAG IV ONE (00:49)
[2018-02-21] MEDS ORDERED: MAGNESIUM SULFATE / D5W 1 GM/100 ML BAG IV STA (00:50)
[2018-02-21] MEDS ORDERED: ALBUT/IPRATROP 3MG/0.5MG NEB 3 ML VIAL INH STA (00:50)
[2018-02-21 01:00] LABS: Basophils # (auto) 0.01 K/uL (0-0.2); Basophils % (auto) 0.1 %; Eosinophils # (auto) 0.13 K/uL (0-0.5); Eosinophils % (auto) 1.1 %; Hematocrit (blood only) 40.7 % (42-52); Hemoglobin 13.2 g/dL (14.0-18.0); Immature Granulocytes # (auto) 0.03 K/uL (0.00-0.02); Immature Granulocytes % (auto) 0.2 %; Lymphocytes # (auto) 2.65 K/uL (1.2-3.4); Mean Corpuscular Hgb Conc 32.4 g/dL (32-36); Mean Corpuscular Volume 103.6 fL (80-100); Mean Platelet Volume 11.4 fL (7.4-10.4); Monocytes # (auto) 0.97 K/uL (0.11-0.59); Monocytes % (auto) 8.1 %; Neutrophils # (auto) 8.25 K/uL (1.4-6.5); Neutrophils % (auto) 68.5 %; Platelet Count 168 K/uL (130-400); RDW Coefficient of Variation 12.8 % (11.5-14.5); RDW Standard Deviation 48.8 fL (36.4-46.3); Red Blood Count 3.93 M/uL (4.7-6.1); White Blood Count 12.04 K/uL (4.8-10.8)
--- NOTE | 2018-02-21 01:19 | Emergency Department Note ---
History of Present Illness General Chief complaint: Shortness of Breath/Dyspnea History of Present Illness This 68-year-old presents to the ER complaining of shortness of breath Location: Chest Quality: Short of breath Severity: Severe Duration: Past 3 weeks steadily getting worse Timin weeks ago Context: Symptoms got worse and patient called EMS Modifying factors: better with nebulizers; worse with nothing Patient seen here 3 weeks ago and placed on prednisone and doxycycline. No improvement. Symptoms got worse tonight and called EMS. He continues to smoke. He tried his inhalers with no improvement. He wears 3-1/2 L of oxygen. He denies chest pain, abdominal pain, fevers, productive cough, increasing leg pain or swelling. Home Medications Home Medications Medication Instructions Recorded Confirmed Type albuterol sulfate 2.5 mg INHALATION QID PRN 01/28/18 02/21/18 History albuterol sulfate [Ventolin HFA] 2 puff INHALATION QID 01/28/18 02/21/18 History atorvastatin 40 mg PO QAM 01/28/18 02/21/18 History docusate sodium [Colace] 100 mg PO BID 01/28/18 02/21/18 History folic acid 1 mg PO QAM 01/28/18 02/21/18 History furosemide 20 mg PO QAM 01/28/18 02/21/18 History gabapentin 300 mg PO HS 01/28/18 02/21/18 History ipratropium-albuterol [Combivent 2 puff INHALATION QID 01/28/18 02/21/18 History Respimat] levothyroxine 50 mcg PO QAM 01/28/18 02/21/18 History lisinopril 20 mg PO QAM 01/28/18 02/21/18 History thiamine HCl (vitamin B1) 100 mg PO QAM 01/28/18 02/21/18 History verapamil 120 mg PO QAM 01/28/18 02/21/18 History doxycycline monohydrate 100 mg PO BID 02/21/18 02/21/18 History fluticasone-vilanterol [Breo 1 inh INHALATION DAILY 02/21/18 02/21/18 History Ellipta] omeprazole 20 mg PO DAILY 02/21/18 02/21/18 History Allergies Allergy/AdvReac Type Severity Reaction Status Date / Time Poultry Allergy Intermediate TURKEY - Verified 02/21/18 02:24 HIVES, RASH, NAUSEA Past Med/Surg History Medical History Chronic respiratory failure (Chronic) TIA (transient ischemic attack) (Chronic) "1982" GERD (gastroesophageal reflux disease) (Chronic) COPD (chronic obstructive pulmonary disease) (Chronic) Esophageal stenosis (Chronic) "s/p dilation June 2016" 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" BPH (benign prostatic hyperplasia) (Chronic) Hypothyroidism (Chronic) Depression (Chronic) Surgical History S/P bronchoscopy (Chronic) Social History Feels Safe at Home: Yes Smoking Status: Current every day smoker Communication Ability: Effective Review of Systems All systems reviewed & are unremarkable except as noted in HPI & below Physical Exam Vital Signs Vital Signs - 24 hr 02/21/18 00:48 02/21/18 00:54 02/21/18 00:55 Temperature 36.6 C Temperature Source Oral Sepsis Recent Fever Within 48 Hours No Sepsis Action Taken by Nursing No Action Required Pulse Rate 68 100 H Pulse Rate [Right Finger] 83 Respiratory Rate 21 28 H 20 Respiratory Effort / Characteristics Spontaneous Accessory Muscle Use Labored Short of Breath SOB on Exertion Non-Labored Spontaneous Respiratory Depth Blood Pressure 128/72 128/72 Blood Pressure [Right Arm] Blood Pressure Mean 90 90 Blood Pressure Mean [Right Arm] Blood Pressure Position Lying Pulse Oximetry 100 97 99 Oxygen Delivery Method Nasal Cannula Nasal Cannula Oxygen Flow Rate 4 3 02/21/18 01:02 02/21/18 02:01 02/21/18 02:03 Temperature Temperature Source Sepsis Recent Fever Within 48 Hours Sepsis Action Taken by Nursing Pulse Rate 83 Pulse Rate [Right Finger] 89 Respiratory Rate 16 18 Respiratory Effort / Characteristics Non-Labored Spontaneous Respiratory Depth Normal Blood Pressure 147/118 H 121/57 L Blood Pressure [Right Arm] 121/57 L Blood Pressure Mean 127 78 Blood Pressure Mean [Right Arm] 78 Blood Pressure Position Pulse Oximetry 97 100 100 Oxygen Delivery Method Nasal Cannula Nebulizer Oxygen Flow Rate 4 8 02/21/18 02:31 Temperature Temperature Source Sepsis Recent Fever Within 48 Hours Sepsis Action Taken by Nursing Pulse Rate 87 Pulse Rate [Right Finger] Respiratory Rate 22 Respiratory Effort / Characteristics Respiratory Depth Blood Pressure 105/64 Blood Pressure [Right Arm] Blood Pressure Mean 77 Blood Pressure Mean [Right Arm] Blood Pressure Position Pulse Oximetry 100 Oxygen Delivery Method Oxygen Flow Rate PHYSICAL EXAM: Vital Signs: Reviewed Nurse's notes. Oxygen saturation was 97% on 4 L of oxygen. GENERAL: White male with tobacco odor struggling to breathe, Alert, oriented and coherent. The patient not able to speak in complete sentences. NECK: Supple, non-tender. CHEST: Symmetrical expansion. + retractions + accessory muscle use. HEART: Regular rate and normal heart sounds LUNGS: Breath sounds equal but significantly diminished in intensity on both sides. Bilateral wheezes heard but no rales or pleuritic rub. SKIN: The skin was without rashes, erythema or bruising. There is no tenting of the skin. Capillary reflex less than 2 seconds. HEAD: Normocephalic atraumatic. EARS: External auditory canals clear, tympanic membranes pearly martinez without erythema or effusion bilaterally. EYES: Pupils equal round and reactive to light and accommodation. Conjunctivae without injection, sclerae without icterus. Extraocular movements intact. NOSE: Patent, turbinates without inflammation or discharge. No sinus tenderness. MOUTH: Mucous membranes moist. Pharynx without erythema or exudate. Uvula midline. Airway patent. Tongue does not deviate. ABDOMEN: Positive bowel sounds x 4. Normal tympanic percussion. Soft, nontender, without masses or organomegaly. Monk sign negative. No guarding or rebound tenderness. MUSCULOSKELETAL: No muscle atrophy, erythema, noted. +1 lower extremity edema bilaterally. NEURO: Patient was alert and oriented to person place and time. Normal sensation to light and sharp touch. No focal neurological deficits. Course Administered Medications Discontinued Medications Albuterol (Duoneb) 12 ml INH ONE STA Stop: 02/21/18 00:51 Last Admin: 02/21/18 00:55 Dose: 12 ml Magnesium Sulfate/Dextrose (Magnesium Sulfate / D5w) 1 gm in 100 mls @ 100 mls/ hr IV ONE STA Stop: 02/21/18 01:49 Last Admin: 02/21/18 00:52 Dose: Not Given Magnesium Sulfate/Dextrose (Magnesium Sulfate / D5w) Confirm Administered Dose 1 gm IV .STK-MED ONE Stop: 02/21/18 00:50 Last Admin: 02/21/18 00:51 Dose: 1 gm Medical Decision Making Medical Records Attestation: I reviewed the patient's medical records. Home Medications Current Medication List: was personally reviewed by me Laboratory Data Attestation: I reviewed the patient's lab results. Result diagrams: 02/21/18 00:25 02/21/18 00:25 Lab Results 02/21/18 02/21/18 02/21/18 Range/Units 00:25 00:25 00:25 WBC 12.04 H (4.8-10.8) K/uL RBC 3.93 L (4.7-6.1) M/uL Hgb 13.2 L (14.0-18.0) g/dL Hct 40.7 L (42-52) % MCV 103.6 H (80-100) fL MCH 33.6 (25-34) pg MCHC 32.4 (32-36) g/dL RDW Std Deviation 48.8 H (36.4-46.3) fL RDW Coeff of Daquan 12.8 (11.5-14.5) % Plt Count 168 (130-400) K/uL MPV 11.4 H (7.4-10.4) fL Immature Gran % (Auto) 0.2 % Neut % (Auto) 68.5 % Lymph % (Auto) 22.0 % Fallon % (Auto) 8.1 % Eos % (Auto) 1.1 % Baso % (Auto) 0.1 % Immature Gran # (Auto) 0.03 H (0.00-0.02) K/uL Neut # (Auto) 8.25 H (1.4-6.5) K/uL Lymph # (Auto) 2.65 (1.2-3.4) K/uL Fallon # (Auto) 0.97 H (0.11-0.59) K/uL Eos # (Auto) 0.13 (0-0.5) K/uL Baso # (Auto) 0.01 (0-0.2) K/uL PT Cancelled INR Cancelled APTT Cancelled PTT Ratio Cancelled ABG pH (7.35-7.45) ABG pCO2 (35-46) mmHg ABG pO2 (80-95) mm/Hg ABG HCO3 (19-24) mmol/L ABG O2 Saturation (90-95) % ABG Base Excess (-9-1.8) mEq/L Hussein Test (Pos) Barometric Pressure mm/Hg Oxygen Given Sodium 140 (136-145) mmol/L Potassium 3.8 (3.5-5.1) mmol/L Chloride 100 (98-107) mmol/L Carbon Dioxide 40 H (21-32) mmol/L Anion Gap 0 L (3-11) BUN 19 H (7-18) mg/dl Creatinine 1.08 (0.6-1.4) mg/dl Est Cr Clr Drug Dosing 60.2 ml/min Est GFR ( Amer) 82.5 Est GFR (Non-Af Amer) 71.1 BUN/Creatinine Ratio 17.9 (10-20) Glucose 92 (70-99) mg/dl Calcium 9.1 (8.5-10.1) mg/dl Magnesium 2.5 H (1.8-2.4) mg/dl Total Bilirubin 0.4 (0.2-1) mg/dl AST 14 L (15-37) U/L ALT 28 (12-78) U/L Alkaline Phosphatase 91 (45-117) U/L Troponin I < 0.015 (0-0.045) ng/ml Total Protein 7.1 (6.4-8.2) gm/dl Albumin 3.9 (3.4-5.0) gm/dl Globulin 3.2 (2.5-4.0) gm/dl Albumin/Globulin Ratio 1.2 (0.9-2) Influenza Type A (PCR) (Neg) Influenza Type B (PCR) (Neg) 02/21/18 02/21/18 Range/Units 00:55 01:09 WBC (4.8-10.8) K/uL RBC (4.7-6.1) M/uL Hgb (14.0-18.0) g/dL Hct (42-52) % MCV (80-100) fL MCH (25-34) pg MCHC (32-36) g/dL RDW Std Deviation (36.4-46.3) fL RDW Coeff of Daquan (11.5-14.5) % Plt Count (130-400) K/uL MPV (7.4-10.4) fL Immature Gran % (Auto) % Neut % (Auto) % Lymph % (Auto) % Fallon % (Auto) % Eos % (Auto) % Baso % (Auto) % Immature Gran # (Auto) (0.00-0.02) K/uL Neut # (Auto) (1.4-6.5) K/uL Lymph # (Auto) (1.2-3.4) K/uL Fallon # (Auto) (0.11-0.59) K/uL Eos # (Auto) (0-0.5) K/uL Baso # (Auto) (0-0.2) K/uL PT INR APTT PTT Ratio ABG pH 7.33 L (7.35-7.45) ABG pCO2 75 H (35-46) mmHg ABG pO2 209 H (80-95) mm/Hg ABG HCO3 39 H (19-24) mmol/L ABG O2 Saturation 99.5 H (90-95) % ABG Base Excess 10.6 H (-9-1.8) mEq/L Hussein Test POS (Pos) Barometric Pressure 735.6 mm/Hg Oxygen Given 8 L Sodium (136-145) mmol/L Potassium (3.5-5.1) mmol/L Chloride (98-107) mmol/L Carbon Dioxide (21-32) mmol/L Anion Gap (3-11) BUN (7-18) mg/dl Creatinine (0.6-1.4) mg/dl Est Cr Clr Drug Dosing ml/min Est GFR ( Amer) Est GFR (Non-Af Amer) BUN/Creatinine Ratio (10-20) Glucose (70-99) mg/dl Calcium (8.5-10.1) mg/dl Magnesium (1.8-2.4) mg/dl Total Bilirubin (0.2-1) mg/dl AST (15-37) U/L ALT (12-78) U/L Alkaline Phosphatase (45-117) U/L Troponin I (0-0.045) ng/ml Total Protein (6.4-8.2) gm/dl Albumin (3.4-5.0) gm/dl Globulin (2.5-4.0) gm/dl Albumin/Globulin Ratio (0.9-2) Influenza Type A (PCR) Neg for Influ A (Neg) Influenza Type B (PCR) Neg for Influ B (Neg) MDM Narrative Prior records/ancillary studies reviewed. Triage Nursing notes reviewed. Additional history obtained from the EMS The patient's history was concerning for respiratory difficulties. Differential diagnosis: Etiologies such as infections, reactive airway disease, pneumonia, pneumothorax , COPD, CHF, cardiac ischemia, pulmonary embolism, musculoskeletal, gastrointestinal, as well as others were entertained. Physical examination: As above. ER treatment provided: Hour-long nebulizer, magnesium. Patient was given Solu-Medrol and nebulizers by EMS. On reassessment the patient felt better. Diagnostic interpretation by me: The electrocardiogram was negative for acute ischemic or pathologic change. Poor baseline, normal sinus, normal intervals, no acute ST-T wave changes. Impression normal sinus rhythm interpreted by myself I think arrhythmia is unlikely. EKG shows normal sinus rhythm with no interval abnormalities such as QT prolongation or WPW. There are no findings to suggest Brugada syndrome. Cardiac monitoring in the emergency department reveals no tachycardic or bradycardic dysrhythmia. Hypertrophic cardiomyopathy was considered but there are no clear historical elements pointing toward this. EKG is not suggestive. The QRS voltage is not extremely large and there are no suggestive Q waves. The labs revealed ABG was reviewed Leukocytosis, most likely stress reaction from the prednisone Imaging studies: Chest x-ray with no acute consolidation, pneumothorax or free air per my interpretation. Consultation: A consultation was placed with fito Chatterjee. The case was discussed and diagnostics were reviewed. The patient was evaluated in the ER for further treatment. This appears to be consistent with COPD exacerbation. Patient was still working to breathe. He was retaining CO2 and O2. Bicarb is elevated. Medicine was consulted and will evaluate the patient for admission. No pneumonia on x-ray. Patient was recently on antibiotics of doxycycline from last ER visit. By the evaluation outlined above emergent etiologies such as CHF , cardiac ischemia, pulmonary embolism, pneumonia, pneumothorax, musculoskeletal, serious bacterial infections, as well as others were deemed relatively unlikely. The pt informed about the findings as listed above. All questions were answered and pleased with the treatment. Case reviewed with my attending The chart was completed utilizing [employer] voice recognition software. Grammatical errors, random word insertions, pronoun errors, and incomplete sentences are an occassional consequence of this system due to software limitations, ambient noise, and hardware issues. Any formal questions or concerns about the content, text, or information contained within the body of this dictation should be directly addressed to the physician anesthesiologist assistant for clarification. Impression & Plan COPD exacerbation Discharge Plan Visit Data Chief Complaint: Shortness of Breath/Dyspnea ED Provider: Tammy Chinchilla ED Midlevel Provider: Tami Peralta Discharge Problem: COPD exacerbation Patient Disposition: Being Evaluated by Hospitalist Condition: Fair Forms Stand Alone Forms: My [facility] App[employer] Prescriptions Prescriptions: No Action omeprazole 20 mg Capsule,Delayed Release(Dr/Ec) 20 mg PO DAILY RF: 0 doxycycline monohydrate 100 mg Capsule 100 mg PO BID RF: 0 fluticasone-vilanterol [Breo Ellipta] 100-25 mcg/dose Blister With Device 1 inh INHALATION DAILY RF: 0 verapamil 120 mg tablet extended release 120 mg PO QAM RF: 0 atorvastatin 40 mg tablet 40 mg PO QAM RF: 0 albuterol sulfate 2.5 mg /3 mL (0.083 %) Solution For Nebulization 2.5 mg INHALATION QID PRN (Reason: Shortness Of Breath Or Wheezing) RF: 0 lisinopril 20 mg tablet 20 mg PO QAM RF: 0 thiamine HCl (vitamin B1) 100 mg Tablet 100 mg PO QAM RF: 0 levothyroxine 50 mcg tablet 50 mcg PO QAM RF: 0 docusate sodium [Colace] 100 mg Capsule 100 mg PO BID RF: 0 gabapentin 300 mg capsule 300 mg PO HS RF: 0 folic acid 1 mg Tablet 1 mg PO QAM RF: 0 furosemide 20 mg tablet 20 mg PO QAM RF: 0 albuterol sulfate [Ventolin HFA] 90 mcg/actuation HFA aerosol inhaler 2 puff Inhalation QID RF: 0 ipratropium-albuterol [Combivent Respimat] 20-100 mcg/actuation mist 2 puff Inhalation QID RF: 0 Referrals Referrals: Derrell Schmidt MD [Primary Care Provider] -
[2018-02-21 01:27] LABS: HCO3 ABG 39 mmol/L (19-24); Oxygen Saturation ABG 99.5 % (90-95); PCO2 ABG 75 mmHg (35-46); PO2 ABG 209 mm/Hg (80-95); pH ABG 7.33 (7.35-7.45)
[2018-02-21 01:28] LABS: Alanine Aminotransferase 28 U/L (12-78); Albumin Level 3.9 gm/dl (3.4-5.0); Anion Gap 0 (3-11); Aspartate Aminotransferase 14 U/L (15-37); BUN Creatinine Ratio 17.9 (10-20); Blood Urea Nitrogen 19 mg/dl (7-18); Calcium 9.1 mg/dl (8.5-10.1); Carbon Dioxide 40 mmol/L (21-32); Chloride 100 mmol/L (98-107); Creatinine Clr Calc Pharmacy 60.2 ml/min; Est GFR (African American) 82.5; Est GFR (Non-African American) 71.1; Glucose 92 mg/dl (70-99); Magnesium 2.5 mg/dl (1.8-2.4); Potassium 3.8 mmol/L (3.5-5.1); Sodium 140 mmol/L (136-145)
[2018-02-21 01:32] LABS: Albumin Globulin Ratio 1.2 (0.9-2); Alkaline Phosphatase 91 U/L (45-117); Bilirubin,Total 0.4 mg/dl (0.2-1); Globulin 3.2 gm/dl (2.5-4.0); Total Protein 7.1 gm/dl (6.4-8.2); Troponin I < 0.015 ng/ml (0-0.045)
[2018-02-21 01:42] LABS: Allen Test POS (Pos)
[2018-02-21 01:43] LABS: Influenza A virus by PCR Neg for Influ A (Neg); Influenza B virus by PCR Neg for Influ B (Neg)
[2018-02-21] MEDS ORDERED: ONDANSETRON INJ 2 MG/ML 2 ML VIAL IV PRN (04:24)
[2018-02-21] MEDS ORDERED: NITROGLYCERIN SL 0.4 MG/TAB TAB SL PRN (04:24)
[2018-02-21] MEDS ORDERED: ACETAMINOPHEN 325 MG TAB PO PRN (04:24)
[2018-02-21] MEDS ORDERED: CARBOHYDRATES FOR HYPOGLYCEMIA PO PRN (04:59)
[2018-02-21] MEDS ORDERED: GLUCAGON FOR INJ 1 MG VIAL SQ PRN (04:59)
[2018-02-21] MEDS ORDERED: GLUCOSE 40% GEL 15 GM TUBE PO PRN (04:59)
[2018-02-21] MEDS ORDERED: GLUCOSE 10 TABS/TUBE PO PRN (04:59)
[2018-02-21] MEDS ORDERED: DEXTROSE 50% 50 ML SYRINGE IV PRN (04:59)
--- NOTE | 2018-02-21 04:59 | History and Physical Report ---
DATE OF ADMISSION: 02/21/2018 CHIEF COMPLAINT: Shortness of breath. HISTORY OF PRESENT ILLNESS: This is a 68-year-old male with past medical history significant for COPD, ongoing tobacco use disorder, chronic respiratory failure on 3 L oxygen all the time, BPH, ectopic atrial tachycardia, GERD, hypothyroidism, diabetes not on medications, hyperlipidemia who presents with shortness of breath. The patient was in the ER in the second week of January with COPD as the patient was discharged on prednisone taper. The patient states since then he is not doing good and he is still getting short of breath and cough, bringing up yellowish phlegm, not much, but his short of breath is getting worse. Walking a few steps make him short of breath. Not able ambulate too much in the house.He lives alone. He cooks his own food but lately he is using only microwavable food. He does not drive. He goes outside with his scooter and gets his stuffs. Denies any chest pain, no nausea, no vomiting. No headache, no dizziness. Some ringing noise in the ear. No blurred visions. Has some runny nose, has some sore throat from coughing, no abdominal pain, constipated and takes stool softeners. No burning micturition. Has chronic lower extremity edema, takes Lasix. Currently, having dry coughing spells in the ER. ALLERGIES: TURKEY. PAST MEDICAL HISTORY: As mentioned above. PAST SURGICAL HISTORY: Bronchoscopy, cataract surgery, surgery for right kidney stone. MEDICATIONS: The patient is on albuterol nebulization every 4 hours p.r.n., Lasix 20 mg daily, Atrovent nebulization with with albuterol 4 times daily, Combivent Respimat 1 dose inhalation every 6 hours p.r.n., Lipitor 40 mg p.o. daily, Brief Ellipta 1 puff daily, verapamil SR 120 mg p.o. daily, levothyroxine 50 mcg p.o. daily, gabapentin 300 mg p.o. at bedtime, lisinopril 20 mg p.o. daily, albuterol p.r.n., azithromycin 500 mg on Saturday, Saturday, and Saturday for acute COPD exacerbation, omeprazole 20 mg p.o. daily, Colace 100 mg p.o. b.i.d., oxygen 3.5-4 L continuous. FAMILY HISTORY: Brother has diabetes. Sister has diabetes. Mother has diabetes. SOCIAL HISTORY: , lives alone. Smokes one and half packs every day. 1-2 beers a week. No drug use. REVIEW OF SYMPTOMS: As per HPI. Rest of review of systems negative. PHYSICAL EXAMINATION: GENERAL: The patient is of moderate built, seems to be in mild respiratory distress. VITAL SIGNS: Temperature 36.6, pulse 87, respiratory rate 22, blood pressure 105/64, oxygen 100% on 8 L. HEENT: No pallor, no icterus. Pupils equal, round, and reactive to light. NECK: No JVD, no neck masses, no carotid bruits. CARDIOVASCULAR: S1, S2 heard, regular rate and rhythm, no murmur, no gallop. RESPIRATORY SYSTEM: Normal AP diameter. No accessory muscle use. Bilateral mild wheezing heard, no crackles. ABDOMEN: Soft, bowel sounds present. Mild discomfort in the right lower quadrant. No distention, no guarding, no rigidity. CENTRAL NERVOUS SYSTEM: Cranial nerves II-XII grossly intact. Nonfocal. EXTREMITIES: Lower extremity pedal edema present, no erythema seen. LABORATORIES: WBC 12, hemoglobin 13.2, hematocrit 40.7, platelets 168. ABG pH of 7.3, pCO2 of 75, pO2 of 209, bicarbonate 39 and oxygen 99% on 8 L. Sodium 140, potassium 3.8, chloride 100, bicarbonate 40, BUN 19, creatinine 1.08, serum glucose 92, calcium 9.1, magnesium 2.5, total bilirubin 0.4, AST 14, ALT 28, alkaline phosphatase 91. Troponin I less than 0.015. Influenza A and B, PCR negative. Chest x-ray, no acute findings seen. EKG: Undetermined rhythm, rate of 78, no acute ST changes seen. ASSESSMENT AND PLAN: This is a 58-year-old male who presents with chronic obstructive pulmonary disease exacerbation. 1. Chronic obstructive pulmonary disease exacerbation. Acute on Chronic respiratory failure.No obvious infiltrate on chest x-ray. We will place him on IV Solu-Medrol 40 t.i.d. and p.o. azithromycin, nebs around the clock every 6 hours and as-needed. He has mild carbon dioxide retention on ABG. We will place him on BiPAP. Repeat ABG in morning. If any concerns, we will consult pulmonary in morning. Continue breo ellipta 2. Hyperlipidemia. Continue statin. 3. Ectopic atrial tachycardia on verapamil. 4. Hypothyroidism. Continue on Synthroid. 5. Hypertension, on lisinopril and verapamil. We will monitor the blood pressure. 6. Diabetes, not on medications. We will check his hemoglobin A1c level. We will place him on insulin sliding scale as the patient is getting steroids. 7. Lower extremity edema, on Lasix. No echo on file. May consider getting an echocardiogram while the patient is in the hospital. 8. Ongoing tobacco abuse. needs counselling. Nicotine patch. 9. Deep venous thrombosis prophylaxis, heparin subcutaneously. DISPOSITION: Closely monitor in tele floor. Expect to discharge home and follow with family doctor. Level I full code. MTDD
[2018-02-21] MEDS: LEVOTHYROXINE SODIUM 50 MCG TABLET PO SCH (05:37)
[2018-02-21] MEDS: methylPREDNISolone 40 MG in SYRINGE 0 ML IV SCH ×3 (05:37→21:36)
[2018-02-21 06:53] LABS: Hematocrit (blood only) 36.4 % (42-52); Hemoglobin 11.7 g/dL (14.0-18.0); Immature Granulocytes # (auto) 0.02 K/uL (0.00-0.02); Immature Granulocytes % (auto) 0.3 %; Lymphocytes # (auto) 0.19 K/uL (1.2-3.4); Lymphocytes % (auto) 2.4 %; Mean Corpuscular Hgb Conc 32.1 g/dL (32-36); Mean Corpuscular Volume 103.4 fL (80-100); Mean Platelet Volume 11.1 fL (7.4-10.4); Monocytes # (auto) 0.09 K/uL (0.11-0.59); Monocytes % (auto) 1.1 %; Neutrophils # (auto) 7.56 K/uL (1.4-6.5); Neutrophils % (auto) 96.2 %; Platelet Count 137 K/uL (130-400); RDW Standard Deviation 48.5 fL (36.4-46.3); Red Blood Count 3.52 M/uL (4.7-6.1); White Blood Count 7.86 K/uL (4.8-10.8)
--- NOTE | 2018-02-21 07:10 | XRay Report ---
XR chest 1V portable CLINICAL HISTORY: Dyspnea. COMPARISON STUDY: Chest radiograph January 28, [address] February 18, 2017. FINDINGS: Emphysema is noted. There is no pneumothorax or pleural effusion. There is no consolidation or evidence for pulmonary edema. Cardiac size is normal. Mediastinal contours are normal. Right apic al scarring is unchanged. IMPRESSION: 1. No acute cardiopulmonary findings. 2. Emphysema. Electronically signed by: Cam Perez M.D. 02/21/2018 7:09 AM
[2018-02-21 07:13] LABS: Prothrombin Time 9.8 Seconds (9.0-12.0)
[2018-02-21 07:27] LABS: BUN Creatinine Ratio 17.8 (10-20); Calcium 8.7 mg/dl (8.5-10.1); Creatinine Clr Calc Pharmacy 61.5 ml/min; Est GFR (African American) 71.2; Est GFR (Non-African American) 61.4; Magnesium 2.5 mg/dl (1.8-2.4); Potassium 4.2 mmol/L (3.5-5.1)
[2018-02-21] MEDS: ALBUT/IPRATROP 3MG/0.5MG NEB 3 ML VIAL NEB SCH ×3 (07:34→19:24)
[2018-02-21 07:55] LABS: Estimated Average Glucose 134 mg/dl
[2018-02-21] MEDS: FUROSEMIDE 20 MG TAB PO SCH (08:06)
[2018-02-21] MEDS: ATORVASTATIN 40 MG TAB PO SCH (08:06)
[2018-02-21] MEDS: DOCUSATE SODIUM 100 MG CAP PO SCH ×2 (08:07→20:14)
[2018-02-21] MEDS: LISINOPRIL 20 MG TAB PO SCH (08:07)
[2018-02-21] MEDS: VERAPAMIL HCL 120 MG TABCR PO SCH (08:07)
[2018-02-21] MEDS: AZITHROMYCIN 250 MG TAB PO SCH (08:07)
[2018-02-21] MEDS: NICOTINE 21 MG/24 HR TDSY TD SCH (08:08)
[2018-02-21] MEDS: PANTOprazole 40 MG TAB PO SCH (08:08)
[2018-02-21] MEDS: INSULIN ASPART 100 UNITS/ML 3 ML PEN SC SCH ×4 (08:16→20:53)
[2018-02-21 08:20] LABS: Allen Test Pos (Pos); HCO3 ABG 36 mmol/L (19-24); Oxygen Saturation ABG 97.3 % (90-95); PCO2 ABG 59 mmHg (35-46); PO2 ABG 97 mm/Hg (80-95)
[2018-02-21 10:30] LABS: Appearance Urine Clear (Clear); Bacteria Urine Automated Negative (Negative); Bilirubin Urine Negative (Negative); Color Urine Dark Yellow; Glucose Urine UA 3+ (Negative); Ketones Urine Trace (Negative); Leukocyte Esterase Urine Negative (Negative); Nitrite Urine Negative (Negative); Protein Urine Trace (Negative); Urobilinogen Urine Negative (Negative); pH Urine 5.5 (4.5-7.5)
[2018-02-21] MEDS: HEPARIN SOD 5,000 UNIT/0.5 ML VIAL SQ SCH ×2 (12:23→21:38)
--- NOTE | 2018-02-21 19:21 | Hospitalist Progress Note ---
Date of Service February 21, 2018 Assessment & Plan (1) COPD exacerbation: This is a 58-year-old male who presents with chronic obstructive pulmonary disease exacerbation. Chronic obstructive pulmonary disease exacerbation. Acute on Chronic respiratory failure -IV Solu-Medrol 40 t.i.d. and p.o. azithromycin, nebs around the clock every 6 hours and as-needed. -CPAP with sleep -Continue breo ellipta Hyperlipidemia. Continue statin. Ectopic atrial tachycardia on verapamil. Hypothyroidism. Continue on Synthroid. Hypertension -on lisinopril and verapamil Diabetes Mellitus history HbA1c 6.3 - on insulin sliding scale as the patient is getting steroids Bilateral Lower extremity edema -on Lasix -patient could not ultrasound of lower extremities, will send D-dimer test Ongoing tobacco abuse -Nicotine patch. Deep venous thrombosis prophylaxis, heparin subcutaneously. Subjective Patient seen and examined at bedside. Has coughing. On nasal cannula. denies chest pain. denies abdominal pain. has leg swelling that is chronic Physical Exam 2 Vital Signs (Past 24 Hours): Last Vital Signs Temp 36.8 C 02/21/18 16:14 Pulse 80 02/21/18 16:14 Resp 16 02/21/18 16:14 BP 99/59 L 02/21/18 16:14 Pulse Ox 97 02/21/18 16:14 Physical Exam: HEENT: No pallor, no icterus. Pupils equal, round, and reactive to light. NECK: No JVD, no neck masses, no carotid bruits. CARDIOVASCULAR: S1, S2 heard, regular rate and rhythm, no murmur, no gallop. RESPIRATORY SYSTEM: Normal AP diameter. No accessory muscle use. Bilateral mild wheezing heard, no crackles. ABDOMEN: Soft, bowel sounds present. No distention, no guarding, no rigidity. CENTRAL NERVOUS SYSTEM: Cranial nerves II-XII grossly intact. Nonfocal. EXTREMITIES: Lower extremity pedal edema present
[2018-02-21] MEDS ORDERED: OPTIRAY 320 125ml IV PRN (20:43)
--- NOTE | 2018-02-21 21:23 | CT Scan Report ---
CHEST CTA for PULMONARY ARTERIES CT DOSE: 500.95 mGy.cm HISTORY: Short of breath. TECHNIQUE: Multiaxial CT images of the chest were performed following the intravenous administration of contrast to evaluate the pulmonary arteries. Maximal intensity projection images were also obtaine d. A dose lowering technique was utilized adhering to the principles of ALARA. COMPARISON STUDY: Chest CTA 02/18/2017. FINDINGS: There is a new mild superior endplate compression deformity at T12 compared to the 2018 exa mination. However, this is likely old given the lack of paravertebral soft tissue edema. There is 3 m m of retropulsion of the posterior superior corner of T12 resulting in mild central canal narrowing a t this level. Otherwise, no acute fractures identified within the visualized osseous structures of th e chest. No pneumothorax. Trace fluid material within the bronchus intermedius and mild bronchial wal l thickening. There is moderate narrowing of the proximal right middle lobe bronchus, unchanged. Scar like density within the right lung apex persists. Advanced emphysema is again noted. Punctate calcifi ed granuloma within the left upper lobe. No new focal lung consolidations to suggest pneumonia. The e sophagus is normal and course and caliber. The visualized liver, spleen, and right adrenal gland are unremarkable. Stable 12 mm left adrenal gland nodule consistent with a benign adenoma. Bilateral neph rolithiasis. The heart is normal in size. No pleural or pericardial effusions. No mediastinal or rochelle r lymphadenopathy. Normal caliber thoracic aorta with no evidence for dissection. No filling defects within the pulmonary arteries to suggest pulmonary embolus. IMPRESSION: 1. No evidence for pulmonary embolus. 2. Mild superior endplate compression deformity at T12. This is test age-indeterminate but likely old . 3. Severe emphysema. 4. Bilateral nephrolithiasis. 5. Additional chronic findings as described above. Electronically signed by: Joshua Guzman M.D. 02/21/2018 9:20 PM
[2018-02-22] MEDS: HEPARIN SOD 5,000 UNIT/0.5 ML VIAL SQ SCH ×3 (05:18→21:52)
[2018-02-22] MEDS: methylPREDNISolone 40 MG in SYRINGE 0 ML IV SCH ×3 (05:18→22:00)
[2018-02-22] MEDS: ALBUT/IPRATROP 3MG/0.5MG NEB 3 ML VIAL NEB SCH ×7 (05:29→21:33)
[2018-02-22] MEDS: LEVOTHYROXINE SODIUM 50 MCG TABLET PO SCH (05:45)
[2018-02-22 06:18] LABS: Basophils # (auto) 0.01 K/uL (0-0.2); Basophils % (auto) 0.1 %; Hematocrit (blood only) 34.7 % (42-52); Hemoglobin 11.2 g/dL (14.0-18.0); Immature Granulocytes # (auto) 0.03 K/uL (0.00-0.02); Immature Granulocytes % (auto) 0.2 %; Lymphocytes # (auto) 0.42 K/uL (1.2-3.4); Lymphocytes % (auto) 2.9 %; Mean Corpuscular Hgb Conc 32.3 g/dL (32-36); Mean Platelet Volume 11.5 fL (7.4-10.4); Monocytes # (auto) 0.53 K/uL (0.11-0.59); Monocytes % (auto) 3.7 %; Neutrophils # (auto) 13.33 K/uL (1.4-6.5); Neutrophils % (auto) 93.1 %; Platelet Count 136 K/uL (130-400); RDW Coefficient of Variation 13.1 % (11.5-14.5); RDW Standard Deviation 49.4 fL (36.4-46.3); Red Blood Count 3.37 M/uL (4.7-6.1); White Blood Count 14.32 K/uL (4.8-10.8)
[2018-02-22 06:48] LABS: BUN Creatinine Ratio 25.1 (10-20); Creatinine Clr Calc Pharmacy 52.5 ml/min; Est GFR (African American) 58.7; Est GFR (Non-African American) 50.7; Magnesium 2.5 mg/dl (1.8-2.4); Potassium 4.2 mmol/L (3.5-5.1)
[2018-02-22] MEDS: DOCUSATE SODIUM 100 MG CAP PO SCH ×2 (08:54→21:47)
[2018-02-22] MEDS: PANTOprazole 40 MG TAB PO SCH (08:54)
[2018-02-22] MEDS: VERAPAMIL HCL 120 MG TABCR PO SCH (08:54)
[2018-02-22] MEDS: FUROSEMIDE 20 MG TAB PO SCH (08:54)
[2018-02-22] MEDS: LISINOPRIL 20 MG TAB PO SCH (08:54)
[2018-02-22] MEDS: ATORVASTATIN 40 MG TAB PO SCH (08:55)
[2018-02-22] MEDS: AZITHROMYCIN 250 MG TAB PO SCH (08:55)
[2018-02-22] MEDS: NICOTINE 21 MG/24 HR TDSY TD SCH (08:55)
[2018-02-22] MEDS: SODIUM CHLORIDE 0.9% 500 ML IV SCH ×2 (08:57→20:26)
[2018-02-22] MEDS: INSULIN ASPART 100 UNITS/ML 3 ML PEN SC SCH ×4 (09:02→21:52)
--- NOTE | 2018-02-22 09:58 | Hospitalist Progress Note ---
Date of Service February 22, 2018 Assessment & Plan (1) COPD exacerbation: This is a 58-year-old male who presents with chronic obstructive pulmonary disease exacerbation. Chronic obstructive pulmonary disease exacerbation. Acute on Chronic respiratory failure -IV Solu-Medrol 40 t.i.d. and p.o. azithromycin, nebs around the clock every 6 hours and as-needed. -CPAP with sleep -Continue breo ellipta -CTA chest "There is a new mild superior endplate compression deformity at T12 compared to the 2018 examination. However, this is likely old given the lack of paravertebral soft tissue edema. There is 3 mm of retropulsion of the posterior superior corner of T12 resulting in mild central canal narrowing at this level. Otherwise, no acute fractures identified within the visualized osseous structures of the chest. No pneumothorax. Trace fluid material within the bronchus intermedius and mild bronchial wall thickening. There is moderate narrowing of the proximal right middle lobe bronchus, unchanged. Scarlike density within the right lung apex persists. Advanced emphysema is again noted. Punctate calcified granuloma within the left upper lobe. No new focal lung consolidations to suggest pneumonia. The esophagus is normal and course and caliber. The visualized liver, spleen, and right adrenal gland are unremarkable. Stable 12 mm left adrenal gland nodule consistent with a benign adenoma. Bilateral nephrolithiasis. The heart is normal in size. No pleural or pericardial effusions. No mediastinal or hilar lymphadenopathy. Normal caliber thoracic aorta with no evidence for dissection. No filling defects within the pulmonary arteries to suggest pulmonary embolus." -outpatient monitoring of left adrenal gland nodule (benign adenoma), and outpatient monitoring of Bilateral nephrolithiasis will be needed Bilateral Lower extremity edema -on Lasix -patient could not ultrasound of lower extremities, D-dimer positive, no thromboembolism of the lungs on CTA -mild erythema likely from chronic venous stasis -monitor -will need PT/OT Diabetes Mellitus history HbA1c 6.3 - on insulin sliding scale as the patient is getting steroids for respiratory reasons Hyperlipidemia. Continue statin. Ectopic atrial tachycardia on verapamil. Hypothyroidism. Continue on Synthroid. Hypertension -on lisinopril and verapamil Ongoing tobacco abuse -Nicotine patch. Deep venous thrombosis prophylaxis, heparin subcutaneously. Disposition: stable heart rates while on telemetry monitoring, can transfer to telemetry garay Subjective Patient seen and examined at bedside while on telemetry garay. Woken from sleep. Reports that the coughing is about the same denies chest pain. denies abdominal pain. has leg swelling that is chronic, some tenderness on palpation Physical Exam 2 Vital Signs (Past 24 Hours): Last Vital Signs Temp 36.6 C 02/22/18 07:41 Pulse 64 02/22/18 07:41 Resp 18 02/22/18 07:41 BP 125/66 02/22/18 07:41 Pulse Ox 95 02/22/18 07:41 Constitutional: WD/WN, vitals as above Eyes: PERRL, conjunctivae normal, anicteric sclerae ENMT: external ear and nose normal, oropharynx normal Neck: trachea midline, no thyromegaly Respiratory: normal respiratory effort (coughing, wheezes) Cardiovascular: Rate/Rhythm: regular rhythm and + bradycardic Gastrointestinal (Abdomen): normal bowel sounds, soft, nontender, no hepatosplenomegaly Musculoskeletal: Head/Neck/Chest: normocephalic and head atraumatic Extremities: strength 5/5 throughout (bilateral lower extremity edema with some redness, mild tenderness to palpation) Neurologic: PERRL, EOMI, accommodation nl, no face palsy, no dysarthria CN' s II-XI intact bilaterally
[2018-02-22] MEDS: GABAPENTIN 300 MG CAP PO SCH (21:47)
--- NOTE | 2018-02-22 22:05 | XRay Report ---
XR chest 1V portable CLINICAL HISTORY: Shortness of breath COMPARISON STUDY: 02/21/2018 FINDINGS: The cardiac and mediastinal contours are normal. There is no focal pulmonary consolidation. There is no failure. There are no pleural effusions. There is underlying pulmonary emphysema.[ IMPRESSION: Pulmonary emphysema. No acute findings. Electronically signed by: Vladimir Parmar M.D. 02/22/2018 10:04 PM
[2018-02-23] MEDS ORDERED: methylPREDNISolone 40 MG in SYRINGE 0 ML IV SCH (02:15)
[2018-02-23 06:06] LABS: Basophils # (auto) 0.01 K/uL (0-0.2); Basophils % (auto) 0.1 %; Hematocrit (blood only) 31.9 % (42-52); Hemoglobin 10.7 g/dL (14.0-18.0); Immature Granulocytes # (auto) 0.04 K/uL (0.00-0.02); Immature Granulocytes % (auto) 0.3 %; Lymphocytes # (auto) 0.29 K/uL (1.2-3.4); Lymphocytes % (auto) 2.4 %; Mean Corpuscular Hgb Conc 33.5 g/dL (32-36); Mean Corpuscular Volume 101.6 fL (80-100); Mean Platelet Volume 11.1 fL (7.4-10.4); Monocytes % (auto) 2.4 %; Neutrophils # (auto) 11.67 K/uL (1.4-6.5); Neutrophils % (auto) 94.8 %; Platelet Count 108 K/uL (130-400); RDW Coefficient of Variation 13.3 % (11.5-14.5); RDW Standard Deviation 48.6 fL (36.4-46.3); Red Blood Count 3.14 M/uL (4.7-6.1); White Blood Count 12.31 K/uL (4.8-10.8)
[2018-02-23] MEDS: LEVOTHYROXINE SODIUM 50 MCG TABLET PO SCH (06:15)
[2018-02-23] MEDS: methylPREDNISolone 40 MG in SYRINGE 0 ML IV SCH ×3 (06:16→21:36)
[2018-02-23] MEDS: HEPARIN SOD 5,000 UNIT/0.5 ML VIAL SQ SCH ×3 (06:16→21:46)
[2018-02-23 06:42] LABS: Creatinine Clr Calc Pharmacy 62.5 ml/min; Est GFR (African American) 72.6; Est GFR (Non-African American) 62.6; Potassium 4.4 mmol/L (3.5-5.1)
[2018-02-23] MEDS: ALBUT/IPRATROP 3MG/0.5MG NEB 3 ML VIAL NEB SCH ×4 (07:32→19:29)
[2018-02-23] MEDS: DOCUSATE SODIUM 100 MG CAP PO SCH ×2 (07:56→21:44)
[2018-02-23] MEDS: PANTOprazole 40 MG TAB PO SCH ×2 (07:56→21:45)
[2018-02-23] MEDS: LISINOPRIL 20 MG TAB PO SCH (07:56)
[2018-02-23] MEDS: FOLIC ACID 1 MG TAB PO SCH (07:56)
[2018-02-23] MEDS: VERAPAMIL HCL 120 MG TABCR PO SCH (07:56)
[2018-02-23] MEDS: ATORVASTATIN 40 MG TAB PO SCH (07:56)
[2018-02-23] MEDS: NICOTINE 21 MG/24 HR TDSY TD SCH (07:57)
[2018-02-23] MEDS: FUROSEMIDE 20 MG TAB PO SCH (07:57)
[2018-02-23] MEDS: AZITHROMYCIN 250 MG TAB PO SCH (07:57)
[2018-02-23] MEDS: THIAMINE HCL 100 MG TAB PO SCH (07:58)
[2018-02-23] MEDS: INSULIN ASPART 100 UNITS/ML 3 ML PEN SC SCH ×4 (08:50→21:38)
--- NOTE | 2018-02-23 15:18 | Pulmonary Consultation ---
Date of Consultation February 23, 2018 Assessment & Plan (1) COPD exacerbation: Impression: 1. Acute exacerbation of COPD, gold level 3, grade C. 2. Esophageal stricture, contributing to recurrent exacerbation of COPD. 3. Severe anxiety. 4. Cor pulmonale. Plan: 1. Continue systemic steroids increase the frequency to every 6 hours. 2. Bronchodilators. 3. Obtain echocardiogram, evaluation for pulmonary hypertension.. 4. Continue with oxygen. 5. Xanax 0.25 twice daily. Anxiety will contribute negatively to his COPD exacerbation. 6. Change PPI to twice daily due to history of severe GERD. 7. The patient has bronchoscopy in the past, doubt any benefit of repeating it at this point. 8. Once the patient is ready to be discharged, discharging him to inpatient rehab rather than to home. Thank you, will follow. History of Present Illness Reason for Consultation: COPD exacerbation Requesting Physician: Dr. Arita Attending Physician: Wero Arita MD History of Present Illness Dear Dr. Arita: Thank you for the kind referral of Mr. Vilalreal to pulmonary service. This is 68-year-old gentleman with history of COPD, gold level 3, home O2 dependent 3 L , active smoker, history of MAT, GERD, hyperlipidemia, anxiety, has been in and out of the hospital almost every 3 weeks with COPD exacerbation. Presented this time also with increasing shortness of breath and inability even to walk to the bathroom. The patient claims has been having cough with sputum production that. The yellow in color, no hemoptysis reported. He has been feeling sick for the past several months and admitted to the hospital and discharged 3 weeks ago. The patient denies any chest pain, no orthopnea or paroxysmal nocturnal symptoms. He denies increased swelling in his lower extremities or pain in his calves. No near syncopal episodes, denies any dizziness, no recent falls, he has no nocturnal symptoms, appears very anxious about his breathing, chronic heartburn, no epigastric pain, no abdominal pain, no diarrhea, no recent sick contacts, the patient lives alone at home, he does not have any visitors, and according to him he does not receive even phone calls from anybody, and cigarettes were his only friend. He continues to smoke a pack a day. And he has more than [id number]. He has no history of industrial lung, family history also does not contribute to his current illness. His parents were non-smoker. The patient was admitted to the hospital, started on systemic steroids as well as bronchodilators, in addition to oxygen. And we were asked to evaluate the patient due to his recurrent admission to the hospital with COPD. Allergies Allergy/AdvReac Type Severity Reaction Status Date / Time Poultry Allergy Intermediate TURKEY - Verified 02/21/18 02:24 HIVES, RASH, NAUSEA Home Medications Home Medications Medication Instructions Recorded Confirmed Type albuterol sulfate 2.5 mg INHALATION QID PRN 01/28/18 02/21/18 History albuterol sulfate [Ventolin HFA] 2 puff INHALATION QID 01/28/18 02/21/18 History atorvastatin 40 mg PO QAM 01/28/18 02/21/18 History docusate sodium [Colace] 100 mg PO BID 01/28/18 02/21/18 History folic acid 1 mg PO QAM 01/28/18 02/21/18 History furosemide 20 mg PO QAM 01/28/18 02/21/18 History gabapentin 300 mg PO HS 01/28/18 02/21/18 History ipratropium-albuterol [Combivent 2 puff INHALATION QID 01/28/18 02/21/18 History Respimat] levothyroxine 50 mcg PO QAM 01/28/18 02/21/18 History lisinopril 20 mg PO QAM 01/28/18 02/21/18 History thiamine HCl (vitamin B1) 100 mg PO QAM 01/28/18 02/21/18 History verapamil 120 mg PO QAM 01/28/18 02/21/18 History doxycycline monohydrate 100 mg PO BID 02/21/18 02/21/18 History fluticasone-vilanterol [Breo 1 inh INHALATION DAILY 02/21/18 02/21/18 History Ellipta] omeprazole 20 mg PO DAILY 02/21/18 02/21/18 History Patient History Medical History Chronic respiratory failure (Chronic) TIA (transient ischemic attack) (Chronic) "1982" GERD (gastroesophageal reflux disease) (Chronic) COPD (chronic obstructive pulmonary disease) (Chronic) Esophageal stenosis (Chronic) "s/p dilation June 2016" 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" BPH (benign prostatic hyperplasia) (Chronic) Hypothyroidism (Chronic) Depression (Chronic) Surgical History S/P bronchoscopy (Chronic) Social History Current Living Situation: Alone Other Information That Helps Us Care for You: No Feels Safe at Home: No Smoking Status: Current every day smoker Cigarettes per Day: 30-40 Hx Alcohol Use: Yes Alcohol type: beer Alcohol Intake Frequency: 3 or more drinks per day Hx Substance Use: No Beliefs That Will Affect Care: None Communication Ability: Effective Review of Systems Review of systems was unremarkable, 14 systems has been reviewed, except for the above in the first section. Physical Exam 2 Vital Signs (Past 24 Hours): Last Vital Signs Temp 36.8 C 02/23/18 13:44 Pulse 65 02/23/18 14:24 Resp 18 02/23/18 14:24 BP 126/78 02/23/18 13:44 Pulse Ox 98 02/23/18 14:24 Physical Exam: Vital signs are stable with O2 sat of 98%. S1-S2 regular rate and rhythm. Lungs with bilateral wheezing. Abdomen is benign. Trace edema in the periphery. Neurologically is nonfocal. Skin erythema due to chronic steroids use. Psychiatrically he appeared anxious but appropriate for his age. Results & Data Laboratory Results Labs were noted for leukocytosis, hematocrit is stable, platelets are slightly low at 108. His bicarb is 38 and BUN and creatinine are acceptable. Diagnostic Findings Chest x-ray and a CAT scan of the chest showed emphysematous changes, compression fracture at level of T12, nephrolithiasis, no hiatal hernia and no PE.
[2018-02-23] MEDS ORDERED: ALBUTEROL 0.5% NEB SOLN 2.5 MG/0.5 ML VIAL NEB STA (16:23)
--- NOTE | 2018-02-23 16:27 | Hospitalist Progress Note ---
Date of Service February 23, 2018 Assessment & Plan (1) COPD exacerbation: This is a 58-year-old male who presents with chronic obstructive pulmonary disease exacerbation. Chronic obstructive pulmonary disease exacerbation, Acute exacerbation of COPD, gold level 3, grade C Acute on Chronic respiratory failure with hypoxia and carbon dioxide retention -CTA chest 02/21/18 "There is a new mild superior endplate compression deformity at T12 compared to the 2018 examination. However, this is likely old given the lack of paravertebral soft tissue edema. There is 3 mm of retropulsion of the posterior superior corner of T12 resulting in mild central canal narrowing at this level. Otherwise, no acute fractures identified within the visualized osseous structures of the chest. No pneumothorax. Trace fluid material within the bronchus intermedius and mild bronchial wall thickening. There is moderate narrowing of the proximal right middle lobe bronchus, unchanged. Scarlike density within the right lung apex persists. Advanced emphysema is again noted. Punctate calcified granuloma within the left upper lobe. No new focal lung consolidations to suggest pneumonia. The esophagus is normal and course and caliber. The visualized liver, spleen, and right adrenal gland are unremarkable. Stable 12 mm left adrenal gland nodule consistent with a benign adenoma. Bilateral nephrolithiasis. The heart is normal in size. No pleural or pericardial effusions. No mediastinal or hilar lymphadenopathy. Normal caliber thoracic aorta with no evidence for dissection. No filling defects within the pulmonary arteries to suggest pulmonary embolus." -outpatient monitoring of left adrenal gland nodule (benign adenoma), and outpatient monitoring of Bilateral nephrolithiasis will be needed -Continue IV Solumedrol and increase the frequency from q8 hours to q6 hours. -scheduled duonebs q4 hours, given stat or prn nebulizer treatments as needed -pulmonary consult ordered echocardiogram to evaluate for pulmonary hypertension. -Xanax 0.25 twice daily. Anxiety will contribute negatively to his COPD exacerbation. -Change PPI to twice daily due to history of severe GERD. -Continue with oxygen perhaps to target 88 to 92% saturation as tolerated in context of COPD -BIPAP if needed Bilateral Lower extremity edema -on Lasix -patient could not tolerate ultrasound of lower extremities, D-dimer positive, no thromboembolism of the lungs on CTA -mild erythema likely from chronic venous stasis -monitor -will need PT/OT Diabetes Mellitus history HbA1c 6.3 - on insulin sliding scale and start Lantus 5 units daily as the patient is getting steroids for respiratory reasons Hyperlipidemia. Continue statin. Ectopic atrial tachycardia on verapamil. Hypothyroidism. Continue on Synthroid. Hypertension -on lisinopril and verapamil Ongoing tobacco abuse -Nicotine patch. Deep venous thrombosis prophylaxis, heparin subcutaneously Full Code Subjective Patient seen and examined at bedside while medical garay overnight he had desaturation when trying to stand and urinate and was given nebulizer treatment and BIPAP seen again this morning on nasal cannula Hospitalist asked pulmonary consult to see the patient. When hospitalist returned, patient speaking with audible wheezing. denies chest pain. denies abdominal pain. has leg swelling that is chronic, some tenderness on palpation Physical Exam 2 Vital Signs (Past 24 Hours): Last Vital Signs Temp 36.8 C 02/23/18 13:44 Pulse 65 02/23/18 14:24 Resp 18 02/23/18 14:24 BP 126/78 02/23/18 13:44 Pulse Ox 98 02/23/18 14:24 Constitutional: WD/WN, vitals as above Eyes: PERRL, conjunctivae normal, anicteric sclerae ENMT: external ear and nose normal, oropharynx normal Neck: trachea midline, no thyromegaly Respiratory: + labored breathing and + audible wheezes Cardiovascular: Rate/Rhythm: regular rhythm and + bradycardic Gastrointestinal (Abdomen): normal bowel sounds, soft, nontender, no hepatosplenomegaly Musculoskeletal: Head/Neck/Chest: normocephalic and head atraumatic Extremities: strength 5/5 throughout (bilateral lower extremity edema with some redness, mild tenderness to palpation) Neurologic: PERRL, EOMI, accommodation nl, no face palsy, no dysarthria CN' s II-XI intact bilaterally
[2018-02-23] MEDS: POLYETHYLENE (MIRALAX) 17 GM PACK PO PRN (17:34)
[2018-02-23] MEDS: ALPRAZolam 0.25 MG TABLET PO SCH (17:42)
[2018-02-23] MEDS: INSULIN GLARGINE SOLOSTAR 100 UNITS/ML 3 ML PEN SC SCH (17:45)
[2018-02-23] MEDS: GABAPENTIN 300 MG CAP PO SCH (21:44)
[2018-02-24] MEDS: ALBUT/IPRATROP 3MG/0.5MG NEB 3 ML VIAL NEB SCH ×6 (01:05→18:58)
[2018-02-24] MEDS: methylPREDNISolone 40 MG in SYRINGE 0 ML IV SCH ×4 (01:07→20:46)
[2018-02-24 05:04] LABS: Albumin Level 3.1 gm/dl (3.4-5.0); BUN Creatinine Ratio 30.5 (10-20); Creatinine Clr Calc Pharmacy 52.1 ml/min; Est GFR (African American) 58.2; Est GFR (Non-African American) 50.2; Magnesium 2.5 mg/dl (1.8-2.4)
[2018-02-24 05:07] LABS: Albumin Globulin Ratio 1.1 (0.9-2); Bilirubin,Total 0.4 mg/dl (0.2-1); Globulin 2.7 gm/dl (2.5-4.0); Total Protein 5.8 gm/dl (6.4-8.2)
[2018-02-24] MEDS: HEPARIN SOD 5,000 UNIT/0.5 ML VIAL SQ SCH ×3 (06:24→20:52)
[2018-02-24] MEDS: LEVOTHYROXINE SODIUM 50 MCG TABLET PO SCH (06:25)
[2018-02-24] MEDS ORDERED: SODIUM CHLORIDE 0.9% 500 ML IV SCH (07:15)
[2018-02-24] MEDS ORDERED: SODIUM CHLORIDE 0.9% 1000ML 1,000 ML IV SCH (07:45)
[2018-02-24] MEDS: LISINOPRIL 20 MG TAB PO SCH (08:33)
[2018-02-24] MEDS: FOLIC ACID 1 MG TAB PO SCH (08:33)
[2018-02-24] MEDS: VERAPAMIL HCL 120 MG TABCR PO SCH (08:34)
[2018-02-24] MEDS: NICOTINE 21 MG/24 HR TDSY TD SCH (08:34)
[2018-02-24] MEDS: AZITHROMYCIN 250 MG TAB PO SCH (08:34)
[2018-02-24] MEDS: ATORVASTATIN 40 MG TAB PO SCH (08:34)
[2018-02-24] MEDS: THIAMINE HCL 100 MG TAB PO SCH (08:34)
[2018-02-24] MEDS: INSULIN GLARGINE SOLOSTAR 100 UNITS/ML 3 ML PEN SC SCH ×2 (08:35→20:48)
[2018-02-24] MEDS: PANTOprazole 40 MG TAB PO SCH ×2 (08:36→20:50)
[2018-02-24] MEDS: INSULIN ASPART 100 UNITS/ML 3 ML PEN SC SCH ×4 (08:38→20:55)
[2018-02-24] MEDS: POLYETHYLENE (MIRALAX) 17 GM PACK PO PRN (08:45)
[2018-02-24] MEDS: DOCUSATE SODIUM 100 MG CAP PO SCH ×2 (08:45→20:59)
[2018-02-24] MEDS: ALPRAZolam 0.25 MG TABLET PO SCH ×2 (08:45→20:59)
--- NOTE | 2018-02-24 09:31 | Progress Note ---
DATE: 02/24/2018 PULMONARY PROGRESS NOTE TIME: 9:00 a.m. SUBJECTIVE: The patient remains short of breath at rest. Last night, he became short of breath during the night when urinating. Nursing staff once again had to put the BiPAP on. He struggles with the BiPAP. He states that he has a lot of leaks from his mask. The patient tells me that a machine was delivered to his home sometime last week. He could not tell me the name of the home care company. He may have only had it a night or two. He did not know who had ordered this. The patient's cough is still present. It is nonproductive. He has not coughed up any blood. He denies chills, fevers, or sweats. He denies chest pains. The patient does complain of difficulty swallowing. He gets some shortness of breath when he swallows either liquids or solids and this did occur when I was present as he swallowed some coffee. The patient relates that at home, he lives in an apartment. He uses a scooter to get around. He does not drive. 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 He states he has a few beers early in the morning with his buddies. He then goes back home and has coffee. He states he wheezes daily. OBJECTIVE: GENERAL: The patient appears somewhat short of breath at rest. Wheezes could be heard without a stethoscope. VITAL SIGNS: Temperature today is 36.6. He has had no fevers since admission. Cardiac rate is 69 per minute. The rhythm was regular. Blood pressure 119/69. LUNGS: Auscultation of the lung stevens revealed severely diminished breath sounds with wheezes being heard. There was marked prolongation to the expiratory phase of respiration. Respiratory rate currently is 18 breaths per minute. Oxygen saturation is 97% on 2.5-liter nasal cannula. ABDOMEN: Somewhat obese. Bowel sounds were present. EXTREMITIES: Reveals +2 edema of both lower extremities. LABORATORY DATA: White count yesterday was 12.31. Hemoglobin 10.7. Platelets 108,000. This was lower than on admission when he was 168,000. I reviewed the patient's blood gases. At first presentation on the , pH was 7.33 with pCO2 of 75 and pO2 of 209. Repeat 7 hours later showed pH 7.40 with a pCO2 of 59, pO2 of 97. Electrolytes today show sodium 140, potassium 5.0, chloride 101, bicarbonate 38. BUN is 44 with a creatinine of 1.44. Creatinine on the was 1.2. However, on the , the creatinine was 1.43. Blood sugars are elevated. This morning, it was 203. I did review the patient's x-rays including the CAT scan of the chest. Emphysema was the predominant finding. Sputum samples have been sent twice and appear to be contaminated with upper airway secretions as there were many epithelial cells noted. IMPRESSION: 1. Respiratory failure - acute on chronic with hypoxia and hypercarbia. 2. Exacerbation of chronic obstructive pulmonary disease. 3. Emphysema. 4. Cor pulmonale. 5. Esophageal stricture. 6. Anxiety. COMMENTS AND RECOMMENDATIONS: The patient remains extremely tight. I believe the patient should be wearing BiPAP every night. I would not wait until he becomes short of breath, he should be trying to adapt to wear it as he goes to bed every night. His oxygen levels are too high considering his degree of hypercarbia. Would suggest keeping the oxygen saturations between 88% and 92%. He was ordered some saline this morning presumably because of the elevated creatinine. There will be a fine line between not enough fluid and excessive fluid. Ideally, we would like to taper the methylprednisolone as soon as feasible in light of the significant elevations of blood sugar. The patient was ordered alprazolam. I would use this only very short term. It has the potential to worsen his hypercarbia. Also, review of prior records suggests that he may have had some issues with these meds in the past. There was a report of questionable overdose of meds from the remote past. I did speak with the patient at length about the need to totally abstain from smoking. He has cravings even while in the hospital. There is a nicotine patch ordered for him. Prognosis is guarded.
[2018-02-24] MEDS ORDERED: LEVALBUTEROL 1.25MG/0.5ML NEB NEB STA (13:22)
--- NOTE | 2018-02-24 14:47 | Hospitalist Progress Note ---
Date of Service February 24, 2018 Assessment & Plan (1) COPD exacerbation: This is a 58-year-old male who presents with chronic obstructive pulmonary disease exacerbation. Chronic obstructive pulmonary disease exacerbation, Acute exacerbation of COPD, gold level 3, grade C Acute on Chronic respiratory failure with hypoxia and carbon dioxide retention -CTA chest 02/21/18 "There is a new mild superior endplate compression deformity at T12 compared to the 2018 examination. However, this is likely old given the lack of paravertebral soft tissue edema. There is 3 mm of retropulsion of the posterior superior corner of T12 resulting in mild central canal narrowing at this level. Otherwise, no acute fractures identified within the visualized osseous structures of the chest. No pneumothorax. Trace fluid material within the bronchus intermedius and mild bronchial wall thickening. There is moderate narrowing of the proximal right middle lobe bronchus, unchanged. Scarlike density within the right lung apex persists. Advanced emphysema is again noted. Punctate calcified granuloma within the left upper lobe. No new focal lung consolidations to suggest pneumonia. The esophagus is normal and course and caliber. The visualized liver, spleen, and right adrenal gland are unremarkable. Stable 12 mm left adrenal gland nodule consistent with a benign adenoma. Bilateral nephrolithiasis. The heart is normal in size. No pleural or pericardial effusions. No mediastinal or hilar lymphadenopathy. Normal caliber thoracic aorta with no evidence for dissection. No filling defects within the pulmonary arteries to suggest pulmonary embolus." -outpatient monitoring of left adrenal gland nodule (benign adenoma), and outpatient monitoring of Bilateral nephrolithiasis will be needed -Continue IV Solumedrol and increase the frequency from q8 hours -scheduled duonebs q4 hours, given stat or prn nebulizer treatments as needed -Xanax 0.25 twice daily. Anxiety will contribute negatively to his COPD exacerbation. -Continue PPI to twice daily due to history of severe GERD. -Continue with oxygen perhaps to target 88 to 92% saturation as tolerated in context of COPD -BIPAP as needed, follow ABG Bilateral Lower extremity edema -on Lasix -patient could not tolerate ultrasound of lower extremities, D-dimer positive, no thromboembolism of the lungs on CTA -mild erythema likely from chronic venous stasis -echocardiogram on 02/24/18 with EF of 65 to 70% Diabetes Mellitus history HbA1c 6.3, not on insulin or other anti-hyperglycemics at home - on insulin sliding scale, continue -because of high dose steroids, will increase Lantus to 10 units BID Hyperlipidemia. Continue statin. Ectopic atrial tachycardia on verapamil. Hypothyroidism. Continue on Synthroid. Hypertension -on lisinopril and verapamil Ongoing tobacco abuse -Nicotine patch. Deep venous thrombosis prophylaxis, heparin subcutaneously Full Code Subjective Patient seen and examined at bedside while medical garay Initially seen on nasal cannula. More shortness of breath and coughing while speaking with medical doctor. denies chest pain. denies abdominal pain. has leg swelling that is chronic, some tenderness on palpation Patient did not respond well to stat nebulizer treatment. BIPAP started. Physical Exam 2 Vital Signs (Past 24 Hours): Last Vital Signs Temp 36.6 C 02/24/18 07:24 Pulse 96 H 02/24/18 13:39 Resp 24 02/24/18 13:39 BP 119/69 02/24/18 07:24 Pulse Ox 95 02/24/18 14:20 Constitutional: WD/WN, vitals as above Eyes: PERRL, conjunctivae normal, anicteric sclerae ENMT: external ear and nose normal, oropharynx normal Neck: trachea midline, no thyromegaly Respiratory: normal respiratory effort (coughing, wheezes), + labored breathing and + audible wheezes Cardiovascular: Rate/Rhythm: regular rhythm and + bradycardic Gastrointestinal (Abdomen): normal bowel sounds, soft, nontender, no hepatosplenomegaly Musculoskeletal: Head/Neck/Chest: normocephalic and head atraumatic Extremities: strength 5/5 throughout (bilateral lower extremity edema with some redness, mild tenderness to palpation) Neurologic: PERRL, EOMI, accommodation nl, no face palsy, no dysarthria CN' s II-XI intact bilaterally
[2018-02-24 15:46] LABS: HCO3 ABG 36 mmol/L (19-24); Oxygen Saturation ABG 83.9 % (90-95); PCO2 ABG 57 mmHg (35-46); PO2 ABG 51 mm/Hg (80-95); pH ABG 7.42 (7.35-7.45)
[2018-02-24 16:04] LABS: Allen Test POS (Pos)
[2018-02-24] MEDS: GABAPENTIN 300 MG CAP PO SCH (20:50)
[2018-02-25] MEDS: methylPREDNISolone 40 MG in SYRINGE 0 ML IV SCH ×4 (03:21→20:03)
[2018-02-25] MEDS: HEPARIN SOD 5,000 UNIT/0.5 ML VIAL SQ SCH ×3 (05:31→20:54)
[2018-02-25] MEDS: LEVOTHYROXINE SODIUM 50 MCG TABLET PO SCH (05:31)
[2018-02-25] MEDS: ALBUT/IPRATROP 3MG/0.5MG NEB 3 ML VIAL NEB SCH ×6 (06:57→19:42)
[2018-02-25] MEDS: INSULIN ASPART 100 UNITS/ML 3 ML PEN SC SCH ×4 (08:22→20:42)
[2018-02-25] MEDS: INSULIN GLARGINE SOLOSTAR 100 UNITS/ML 3 ML PEN SC SCH ×2 (08:28→20:41)
[2018-02-25] MEDS: FOLIC ACID 1 MG TAB PO SCH (09:10)
[2018-02-25] MEDS: ATORVASTATIN 40 MG TAB PO SCH (09:10)
[2018-02-25] MEDS: VERAPAMIL HCL 120 MG TABCR PO SCH (09:10)
[2018-02-25] MEDS: DOCUSATE SODIUM 100 MG CAP PO SCH ×2 (09:10→20:05)
[2018-02-25] MEDS: NICOTINE 21 MG/24 HR TDSY TD SCH (09:10)
[2018-02-25] MEDS: PANTOprazole 40 MG TAB PO SCH ×2 (09:11→20:04)
[2018-02-25] MEDS: ALPRAZolam 0.25 MG TABLET PO SCH ×2 (09:11→20:41)
[2018-02-25] MEDS: THIAMINE HCL 100 MG TAB PO SCH (09:11)
[2018-02-25] MEDS: LISINOPRIL 20 MG TAB PO SCH (09:11)
[2018-02-25] MEDS: AZITHROMYCIN 250 MG TAB PO SCH (09:11)
--- NOTE | 2018-02-25 11:00 | Progress Note ---
DATE: 02/25/2018 PULMONARY PROGRESS NOTE TIME: 10:10 a.m. SUBJECTIVE: The patient remains quite short of breath. He currently has a BiPAP on. Nursing staff stated that when he was being bathed this morning after just being part way through, he became severely short of breath and had to put the BiPAP back on. He overall thinks that he feels a little better and indeed he looks a little better today. He feels that he has phlegm to bring up, but he is not bringing any phlegm out. He denies chest pains. The history was somewhat limited by the patient being on BiPAP. OBJECTIVE: GENERAL: The patient is more alert than yesterday. He was oriented. He did not appear in distress at present, but he has the BiPAP in place. He apparently is tolerating it better. VITAL SIGNS: Temperature is 36.6. He has had no fevers. Heart rate is 77 per minute. The rhythm was regular. Blood pressure 159/80. Respiratory rate is 22 breaths per minute. CHEST: The breath sounds are severely diminished. There was poor aeration throughout. No wheezes were heard, but it may be because his airflow is so poor. Saturation currently is 94% on the BiPAP. BiPAP pressures are 10/5. EXTREMITIES: Showed no change in the +2 edema bilaterally. LABORATORY DATA: The intake for the prior 24 hours was 1261 and the output was 1025. The patient did have an arterial blood gas done yesterday afternoon. This was with BiPAP in place. A pH was 7.42 with pCO2 of 57 and a pO2 of 51. Blood sugar this morning was 177. IMPRESSION: 1. Respiratory failure - acute on chronic with hypoxia and hypercarbia. 2. Chronic obstructive pulmonary disease exacerbation. 3. Emphysema. 4. Cor pulmonale. 5. Esophageal stricture. COMMENTS AND RECOMMENDATIONS: The patient at least is tolerating the BiPAP a little better. Respiratory therapy was in when I was seeing the patient. We are going to boost his BiPAP pressures up a bit if tolerated. He was at 10/5 and will try 12/5 and see how that goes for him. The patient plans to come off of BiPAP. He feels in another half hour or so and then he would like to stay off for a bit. It seems reasonable. Would continue with his current medications which include methylprednisolone, DuoNebs, Zithromax, Lasix, and subQ heparin. Status remains very marginal.
--- NOTE | 2018-02-25 17:54 | Hospitalist Progress Note ---
Date of Service February 25, 2018 Assessment & Plan (1) COPD exacerbation: This is a 58-year-old male who presents with chronic obstructive pulmonary disease exacerbation. Chronic obstructive pulmonary disease exacerbation, Acute exacerbation of COPD, gold level 3, grade C Acute on Chronic respiratory failure with hypoxia and carbon dioxide retention -CTA chest 02/21/18 "There is a new mild superior endplate compression deformity at T12 compared to the 2018 examination. However, this is likely old given the lack of paravertebral soft tissue edema. There is 3 mm of retropulsion of the posterior superior corner of T12 resulting in mild central canal narrowing at this level. Otherwise, no acute fractures identified within the visualized osseous structures of the chest. No pneumothorax. Trace fluid material within the bronchus intermedius and mild bronchial wall thickening. There is moderate narrowing of the proximal right middle lobe bronchus, unchanged. Scarlike density within the right lung apex persists. Advanced emphysema is again noted. Punctate calcified granuloma within the left upper lobe. No new focal lung consolidations to suggest pneumonia. The esophagus is normal and course and caliber. The visualized liver, spleen, and right adrenal gland are unremarkable. Stable 12 mm left adrenal gland nodule consistent with a benign adenoma. Bilateral nephrolithiasis. The heart is normal in size. No pleural or pericardial effusions. No mediastinal or hilar lymphadenopathy. Normal caliber thoracic aorta with no evidence for dissection. No filling defects within the pulmonary arteries to suggest pulmonary embolus." -outpatient monitoring of left adrenal gland nodule (benign adenoma), and outpatient monitoring of Bilateral nephrolithiasis will be needed -Continue IV Solumedrol and increase the frequency from q8 hours -scheduled duonebs q4 hours, given stat or prn nebulizer treatments as needed -Xanax 0.25 twice daily. Anxiety will contribute negatively to his COPD exacerbation. -Continue PPI to twice daily due to history of severe GERD. -Continue with oxygen perhaps to target 88 to 92% saturation as tolerated in context of COPD -BIPAP as needed, follow ABG -pulmonary continues to follow the patient Bilateral Lower extremity edema -patient could not tolerate ultrasound of lower extremities, D-dimer positive, no thromboembolism of the lungs on CTA -mild erythema likely from chronic venous stasis -echocardiogram on 02/24/18 with EF of 65 to 70% Acute kidney Injury -creatinine 1.44, hold the Lasix for the leg edema. hold off IV fluids for now as the focus is on the respiratory status. trend renal function on tomorrow's labs Diabetes Mellitus history HbA1c 6.3, not on insulin or other anti-hyperglycemics at home - on insulin sliding scale, continue -because of high dose steroids, will increase Lantus to 10 units BID Hyperlipidemia. Continue statin. Ectopic atrial tachycardia on verapamil. Hypothyroidism. Continue on Synthroid. Hypertension -on lisinopril and verapamil Ongoing tobacco abuse -Nicotine patch. Deep venous thrombosis prophylaxis, heparin subcutaneously Full Code Subjective Patient was more comfortable when seen and examined earlier today on nasal cannula. When re-assessed after pulmonary service and made recommendations to changes to BIPAP settings, patient was heard screaming for help while on the BIPAP and reporting that he felt like he cannot breath. He could not ring the call lindsey and the nurse panel button was on the floor and he could not reach for it. Patient saturating 93 % on this BIPAP setting. will have respiratory therapist adjust the BIPAP. will get ABG, will have patient transferred from medical garay to telemetry for closer monitoring Physical Exam 2 Vital Signs (Past 24 Hours): Last Vital Signs Temp 36.4 C L 02/25/18 15:01 Pulse 71 02/25/18 15:01 Resp 22 02/25/18 15:01 BP 149/74 H 02/25/18 15:01 Pulse Ox 96 02/25/18 15:01 Constitutional: WD/WN, vitals as above Eyes: PERRL, conjunctivae normal, anicteric sclerae ENMT: external ear and nose normal, oropharynx normal Neck: trachea midline, no thyromegaly Respiratory: + labored breathing Auscultation: lungs clear to auscultation bilaterally Cardiovascular: Rate/Rhythm: regular rhythm and + bradycardic Gastrointestinal (Abdomen): normal bowel sounds, soft, nontender, no hepatosplenomegaly Musculoskeletal: Head/Neck/Chest: normocephalic and head atraumatic Extremities: strength 5/5 throughout (bilateral lower extremity edema with some redness, mild tenderness to palpation) Neurologic: PERRL, EOMI, accommodation nl, no face palsy, no dysarthria CN' s II-XI intact bilaterally
[2018-02-25 18:35] LABS: HCO3 ABG 35 mmol/L (19-24); Oxygen Saturation ABG 98.2 % (90-95); PCO2 ABG 59 mmHg (35-46); PO2 ABG 117 mm/Hg (80-95)
[2018-02-25 18:38] LABS: Allen Test Pos (Pos)
[2018-02-25] MEDS: GABAPENTIN 300 MG CAP PO SCH (20:04)
[2018-02-25] MEDS: FLUTICASONE/SALMETEROL (ADVAIR) 500/50 INH 14 PUFF INH SCH (21:53)
[2018-02-26] MEDS: methylPREDNISolone 40 MG in SYRINGE 0 ML IV SCH ×2 (03:05→07:48)
[2018-02-26] MEDS: HEPARIN SOD 5,000 UNIT/0.5 ML VIAL SQ SCH ×3 (05:36→20:37)
[2018-02-26] MEDS: LEVOTHYROXINE SODIUM 50 MCG TABLET PO SCH (05:37)
[2018-02-26 06:20] LABS: Hematocrit (blood only) 34.3 % (42-52); Hemoglobin 11.2 g/dL (14.0-18.0); Immature Granulocytes # (auto) 0.04 K/uL (0.00-0.02); Immature Granulocytes % (auto) 0.3 %; Lymphocytes # (auto) 0.35 K/uL (1.2-3.4); Mean Corpuscular Hgb Conc 32.7 g/dL (32-36); Mean Corpuscular Volume 101.8 fL (80-100); Mean Platelet Volume 11.7 fL (7.4-10.4); Monocytes # (auto) 0.19 K/uL (0.11-0.59); Monocytes % (auto) 1.6 %; Neutrophils # (auto) 11.24 K/uL (1.4-6.5); Neutrophils % (auto) 95.1 %; Platelet Count 116 K/uL (130-400); RDW Standard Deviation 48.6 fL (36.4-46.3); Red Blood Count 3.37 M/uL (4.7-6.1); White Blood Count 11.82 K/uL (4.8-10.8)
[2018-02-26 07:05] LABS: Albumin Globulin Ratio 1.3 (0.9-2); Albumin Level 3.1 gm/dl (3.4-5.0); BUN Creatinine Ratio 40.5 (10-20); Bilirubin,Total 0.5 mg/dl (0.2-1); Calcium 8.9 mg/dl (8.5-10.1); Creatinine Clr Calc Pharmacy 75.8 ml/min; Est GFR (African American) 91.6; Globulin 2.4 gm/dl (2.5-4.0); Magnesium 2.7 mg/dl (1.8-2.4); Potassium 4.7 mmol/L (3.5-5.1); Total Protein 5.5 gm/dl (6.4-8.2)
[2018-02-26] MEDS: ALBUT/IPRATROP 3MG/0.5MG NEB 3 ML VIAL NEB SCH ×5 (07:27→23:08)
[2018-02-26] MEDS: AZITHROMYCIN 250 MG TAB PO SCH (07:48)
[2018-02-26] MEDS: FLUTICASONE/SALMETEROL (ADVAIR) 500/50 INH 14 PUFF INH SCH ×2 (07:48→20:28)
[2018-02-26] MEDS: THIAMINE HCL 100 MG TAB PO SCH (07:49)
[2018-02-26] MEDS: NICOTINE 21 MG/24 HR TDSY TD SCH (07:49)
[2018-02-26] MEDS: FOLIC ACID 1 MG TAB PO SCH (07:49)
[2018-02-26] MEDS: VERAPAMIL HCL 120 MG TABCR PO SCH (07:49)
[2018-02-26] MEDS: LISINOPRIL 20 MG TAB PO SCH (07:49)
[2018-02-26] MEDS: ATORVASTATIN 40 MG TAB PO SCH (07:49)
[2018-02-26] MEDS: INSULIN GLARGINE SOLOSTAR 100 UNITS/ML 3 ML PEN SC SCH ×2 (07:50→20:28)
[2018-02-26] MEDS: PANTOprazole 40 MG TAB PO SCH ×2 (07:51→20:27)
[2018-02-26] MEDS: ALPRAZolam 0.25 MG TABLET PO SCH ×2 (07:53→20:27)
[2018-02-26] MEDS: DOCUSATE SODIUM 100 MG CAP PO SCH ×2 (07:53→20:27)
[2018-02-26] MEDS: INSULIN ASPART 100 UNITS/ML 3 ML PEN SC SCH ×4 (07:54→20:31)
[2018-02-26] MEDS ORDERED: ACETYLCYSTEINE 10% INHAL SOLN **DISPENSED FROM RESP. INH SCH (09:15)
[2018-02-26] MEDS ORDERED: methylPREDNISolone 125 MG/2 ML VIAL ONE (11:47)
[2018-02-26] MEDS ORDERED: methylPREDNISolone 125 MG in SYRINGE 0 ML IV STA (11:53)
[2018-02-26 12:20] LABS: iSTAT Allen Test Pass; iSTAT Arterial Blood Gas HCO3 36 meg/L (19-24); iSTAT Carbon Dioxide 38 mEq/l (24-31); iSTAT FiO2 30 %
[2018-02-26] MEDS ORDERED: PHARMACY GLYCEMIC MGMT CONSULT PRN (12:41)
--- NOTE | 2018-02-26 12:44 | Progress Note ---
DATE: 02/26/2018 PULMONARY PROGRESS NOTE TIME: 12:15 p.m. SUBJECTIVE: The patient is currently seen in a degree of respiratory distress. I was called by Dr. Hammond regarding the patient. He was at the bedside. The patient reportedly had refused BiPAP overnight. This morning, things were going fairly good. Then, physical therapy came. All they did was some leg lifts on the bed. Soon after doing the physical therapy, the patient became severely tight. According to nursing staff, he became cyanotic. They did get BiPAP and put it on him. He is currently on the BiPAP 01/16 and tolerating it okay. He was not able to speak in clear sentences. Currently, he is able to verbalize without difficulty. I believe he has been on the BiPAP probably 10 minutes or thereabouts. The patient indicates that he feels that he cannot bring up phlegm. He does not sound loose, however. When he gets a sensation of severe tightness, he goes into distress quite quickly OBJECTIVE: GENERAL: The patient is seen in the sitting far forward position. He is obviously doing this for mechanical advantage. VITAL SIGNS: Temperature is 36.5. He has not had any fevers. Heart rate was 79. Rhythm was regular. Blood pressure 144/88. Respiratory rate is 30. LUNGS: Breath sounds are severely diminished. It is hard to hear any breath sounds on the patient at all and it has been that way for the 3 days I have seen him. He does have marked prolongation to the expiratory phase of respiration. Saturation was 99% on the BiPAP. Even when he was in distress, apparently, his saturations were acceptable. ABDOMEN: Somewhat obese. It was soft. EXTREMITIES: Revealed the edema in both lower extremities seems to be better. He is now between a +1 and +2, but they clearly looked less edematous than prior. This is somewhat surprising as the intake and output for the past 24 hours did not show any significant diuresis if it was collected accurately. LABORATORY DATA: Stat arterial blood gas was done. This showed a pH of 7.34 with a pCO2 of 66.7 and a pO2 of 63. This blood gas is a little worse than the blood gas done on the . White count today is 11.82. Hemoglobin 11.2. Platelets 116,000. The BUN is 40 today with a creatinine of 0.99. On the , the BUN was 44 with a creatinine of 1.44. Thus, the renal functions are a little better. Sodium was 140, potassium 4.7, chloride 104, bicarbonate 34. IMPRESSION: 1. Respiratory failure - acute on chronic with hypercarbia and hypoxia. 2. Exacerbation of chronic obstructive pulmonary disease. 3. Emphysema. 4. Esophageal stricture by history. 5. Cor pulmonale. COMMENTS AND RECOMMENDATIONS: The patient I believe was just being given a bolus of 125 of the methylprednisolone. I do agree with that. Would suggest increasing the methylprednisolone to 60 IV q. 6 for now. We will have to continue to maintain diligence on the blood sugars. I believe there is a chest x-ray pending. Consideration could be given to transfer to ICU depending upon his clinical course. Hopefully, the patient is taking his DuoNeb treatments every 4 hours. Consider a trial of Mucinex for the patient at 1200 mg q. 12 hours.
--- NOTE | 2018-02-26 13:11 | XRay Report ---
XR chest 1V portable CLINICAL HISTORY: tachypnea, hypoxia dyspnea COMPARISON STUDY: 02/22/2018 FINDINGS: The bones soft tissues and hemidiaphragms are normal. The cardiomediastinal silhouette is n ormal. The lungs are clear. The pulmonary vasculature is normal. IMPRESSION: Negative chest. The above report was generated using voice recognition software. It may contain grammatical, syntax or spelling errors. Electronically signed by: Adrián Vincent M.D. 02/26/2018 1:10 PM
--- NOTE | 2018-02-26 14:38 | Pharmacy Report ---
Pharmacy Glycemic Short Note 2 - Date of Service February 26, 2018 - Glycemic Short BSG Results (Last 24 hours): 02/25/18 02/25/18 02/26/18 16:49 20:34 06:10 Glucose 185 H POC Glucose 228 H 243 H 02/26/18 02/26/18 07:26 11:24 Glucose POC Glucose 187 H 212 H OUTPATIENT ANTIDIABETIC REGIMEN: * none * A1c 6.3% (02/21/18) ASSESSMENT: * Mr. Villareal is a 68 yr old male with h/o of diabetes admitted for COPD exacerbation. He is not on any anti-diabetic agents at home. * Patient is experiencing steroid induced hyperglycemia; solu medrol dose was escalated today to 60 mg IV q6h. * He was started on SQ basal + bolus insulin on admission. * Fasting BSG of 187 mg/dL is above goal. I will increase basal insulin based on weight/stress 2 * Post prandial BSGs are all > 200 mg/dL. Patient is currently is ordered Novolog per correction factor only. I will add carb coverage since steroids have the most profound effect on post prandial BSGs. PLAN FOR INPATIENT GLYCEMIC CONTROL: * Basal insulin - increase * Lantus per scale SQ BID * 10 units for BSG < 140 mg/dL * 15 units for BSG 140 mg/dL or more * Bolus insulin - add carb coverage * NovoLog per scale ACHS or Q6hrs while NPO * Goal Range: Low 110 mg/dL - High 140 mg/dL * Correction Factor: 20 mg/dL/unit * Nutritional / Prandial insulin per carb ratio of 1 unit per 8 grams CHO consumed PLAN FOR DISCHARGE: * A1c of 6.3 % meets criteria for pre-diabetes * Patient is currently not on anti-diabetic agents as an outpatient * Recommend lifestyle/dietary modifications * May consider starting metformin ER 500 mg PO daily with dinner * can increase by 500 mg per week as tolerated to a max of 1000 mg BID
--- NOTE | 2018-02-26 17:11 | Hospitalist Progress Note ---
Date of Service February 26, 2018 Assessment & Plan (1) COPD exacerbation: This is a 58-year-old male who presents with chronic obstructive pulmonary disease exacerbation. Chronic obstructive pulmonary disease exacerbation, Acute exacerbation of COPD, gold level 3, grade C Acute on Chronic respiratory failure with hypoxia and carbon dioxide retention -CTA chest 02/21/18: no PE - repeat CXR noted - discussed with Dr. Odonnell will increase Solumedrol to 60mg Q6h Nebs changed to q4h encouraged patient to wear CPAP Bilateral Lower extremity edema, likely from Cor Pulmonale -patient could not tolerate ultrasound of lower extremities, D-dimer only 560 CT chest no PE -echocardiogram on 02/24/18 with EF of 65 to 70% - continuie Lasix 20mg po daily Acute kidney Injury - crea back to normal Diabetes Mellitus history HbA1c 6.3, not on insulin or other anti-hyperglycemics at home - Pharmacy Glycemic control consult Hyperlipidemia. Continue statin. Ectopic atrial tachycardia on verapamil. Hypothyroidism. Continue on Synthroid. Hypertension -on lisinopril and verapamil Ongoing tobacco abuse -Nicotine patch. Deep venous thrombosis prophylaxis, heparin subcutaneously Full Code Disposition pending Subjective seen on ff up for copd exacerbation initially seen in AM, patient sitting up in bed, comfortable states breathing is about the same has occasional dry cough denies chest pain called by RN as patient became tachypneic after PT in his room seen leaning forward, tachypneic, breath sounds tight ordered CPAP to be placed STAT, Solumedrol 125mg, CXR, ABG Dr. Odonnell called as well, who evaluated patient shortly patient improved can continue monitoring in Tele as per Dr. Odonnell repeat CXR and ABG reviewed continued on Bipap called by RN as patient said next time, he does not want to go to the hospital Palliative care consult placed called by RN as patient apparently requesting to be transferred to [facility] patient seen in his room, now on nasal cannula, at 4L, appears less dyspneic compared to earlier but still has some tachypnea and mild accessory muscle use while speaking inquiredwhy he wants to be transferred, states he is frustrated because RN kept on asking him if takes Breo, also, it takes a long time for RN to respond to his callbell i informed patient that it is not a good idea to transfer him today because of his unstable respiratory status and also reassered him to address his concerns while he is admitted to [facility] talked to charge operator, will transfer patient to room 204 informed patient, and he is comfortable and agreeable with the plan, he said he will stay in [facility] Physical Exam 2 Vital Signs (Past 24 Hours): Last Vital Signs Temp 36.5 C 02/26/18 15:55 Pulse 89 02/26/18 16:27 Resp 22 02/26/18 15:55 BP 155/73 H 02/26/18 15:55 Pulse Ox 98 02/26/18 15:55 Physical Exam: General- oriented x 3, mild tachypne and accessory muscle use when talking, speaks in sentences Eyes- anicteric Neck- no JVD Lungs- diminished breath sound bilaterally, no wheezing Heart- normal rate, regular rhythm; no murmurs Abdomen- normal bowel sounds, nondistended, soft, nontender Extremities- mild lower leg edema, no calf tenderness Neuro- alert, oriented x 2; no gross focal neurologic deficits Skin- warm & dry Results & Data Laboratory Results Laboratory Results - last 24 hr 02/25/18 02/25/18 02/26/18 18:19 20:34 06:10 WBC 11.82 H RBC 3.37 L Hgb 11.2 L Hct 34.3 L MCV 101.8 H MCH 33.2 MCHC 32.7 RDW Std Deviation 48.6 H RDW Coeff of Daquan 13.0 Plt Count 116 L MPV 11.7 H Immature Gran % (Auto) 0.3 Neut % (Auto) 95.1 Lymph % (Auto) 3.0 [place] % (Auto) 1.6 Eos % (Auto) 0.0 Baso % (Auto) 0.0 Immature Gran # (Auto) 0.04 H Neut # (Auto) 11.24 H Lymph # (Auto) 0.35 L [place] # (Auto) 0.19 Eos # (Auto) 0.00 Baso # (Auto) 0.00 Sample Site POC pH POC pCO2 POC pO2 POC HCO3 POC Total CO2 POC Base Excess ABG pH 7.40 ABG pCO2 59 H ABG pO2 117 H ABG HCO3 35 H POC ABG O2 Sat ABG O2 Saturation 98.2 H ABG Base Excess 8.9 H Hussein Test Pos Barometric Pressure 734.3 Oxygen Given 4 LITERS O2 Delivery Device POC O2 Rate POC FiO2 IPAP Sodium Potassium Chloride Carbon Dioxide Anion Gap BUN Creatinine Est Cr Clr Drug Dosing Est GFR ( Amer) Est GFR (Non-Af Amer) BUN/Creatinine Ratio Glucose POC Glucose 243 H Calcium Magnesium Total Bilirubin AST ALT Alkaline Phosphatase Total Protein Albumin Globulin Albumin/Globulin Ratio 02/26/18 02/26/18 02/26/18 06:10 07:26 11:24 WBC RBC Hgb Hct MCV MCH MCHC RDW Std Deviation RDW Coeff of Daquan Plt Count MPV Immature Gran % (Auto) Neut % (Auto) Lymph % (Auto) [place] % (Auto) Eos % (Auto) Baso % (Auto) Immature Gran # (Auto) Neut # (Auto) Lymph # (Auto) [place] # (Auto) Eos # (Auto) Baso # (Auto) Sample Site POC pH POC pCO2 POC pO2 POC HCO3 POC Total CO2 POC Base Excess ABG pH ABG pCO2 ABG pO2 ABG HCO3 POC ABG O2 Sat ABG O2 Saturation ABG Base Excess Hussein Test Barometric Pressure Oxygen Given O2 Delivery Device POC O2 Rate POC FiO2 IPAP Sodium 140 Potassium 4.7 Chloride 104 Carbon Dioxide 34 H Anion Gap 2.0 L BUN 40 H Creatinine 0.99 Est Cr Clr Drug Dosing 75.8 Est GFR ( Amer) 91.6 Est GFR (Non-Af Amer) 79.0 BUN/Creatinine Ratio 40.5 H Glucose 185 H POC Glucose 187 H 212 H Calcium 8.9 Magnesium 2.7 H Total Bilirubin 0.5 AST 19 ALT 41 Alkaline Phosphatase 68 Total Protein 5.5 L Albumin 3.1 L Globulin 2.4 L Albumin/Globulin Ratio 1.3 02/26/18 02/26/18 12:09 16:18 WBC RBC Hgb Hct MCV MCH MCHC RDW Std Deviation RDW Coeff of Daquan Plt Count MPV Immature Gran % (Auto) Neut % (Auto) Lymph % (Auto) [place] % (Auto) Eos % (Auto) Baso % (Auto) Immature Gran # (Auto) Neut # (Auto) Lymph # (Auto) [place] # (Auto) Eos # (Auto) Baso # (Auto) Sample Site R Radial POC pH 7.34 L POC pCO2 67 H POC pO2 63 L POC HCO3 36 H POC Total CO2 38 H POC Base Excess 11.0 H ABG pH ABG pCO2 ABG pO2 ABG HCO3 POC ABG O2 Sat 90.0 ABG O2 Saturation ABG Base Excess Hussein Test Pass Barometric Pressure Oxygen Given O2 Delivery Device BIPAP POC O2 Rate 12 POC FiO2 30 IPAP 12 Sodium Potassium Chloride Carbon Dioxide Anion Gap BUN Creatinine Est Cr Clr Drug Dosing Est GFR ( Amer) Est GFR (Non-Af Amer) BUN/Creatinine Ratio Glucose POC Glucose 263 H Calcium Magnesium Total Bilirubin AST ALT Alkaline Phosphatase Total Protein Albumin Globulin Albumin/Globulin Ratio
[2018-02-26] MEDS: methylPREDNISolone 60 MG in SYRINGE 0 ML IV SCH ×2 (17:53→23:27)
[2018-02-26] MEDS: GABAPENTIN 300 MG CAP PO SCH (20:27)
[2018-02-26] MEDS: guaiFENesin 600 MG TABCR PO SCH (20:27)
[2018-02-27] MEDS: ALBUT/IPRATROP 3MG/0.5MG NEB 3 ML VIAL NEB SCH ×6 (03:40→23:08)
[2018-02-27] MEDS: LEVOTHYROXINE SODIUM 50 MCG TABLET PO SCH (06:25)
[2018-02-27] MEDS: HEPARIN SOD 5,000 UNIT/0.5 ML VIAL SQ SCH ×3 (06:26→21:14)
[2018-02-27] MEDS: methylPREDNISolone 60 MG in SYRINGE 0 ML IV SCH ×4 (06:41→23:48)
[2018-02-27] MEDS: guaiFENesin 600 MG TABCR PO SCH ×2 (08:48→20:26)
[2018-02-27] MEDS: FLUTICASONE/SALMETEROL (ADVAIR) 500/50 INH 14 PUFF INH SCH ×2 (08:48→20:26)
[2018-02-27] MEDS: LISINOPRIL 20 MG TAB PO SCH (08:49)
[2018-02-27] MEDS: VERAPAMIL HCL 120 MG TABCR PO SCH (08:49)
[2018-02-27] MEDS: THIAMINE HCL 100 MG TAB PO SCH (08:49)
[2018-02-27] MEDS: PANTOprazole 40 MG TAB PO SCH ×2 (08:50→21:14)
[2018-02-27] MEDS: ATORVASTATIN 40 MG TAB PO SCH (08:50)
[2018-02-27] MEDS: FOLIC ACID 1 MG TAB PO SCH (08:50)
[2018-02-27] MEDS: NICOTINE 21 MG/24 HR TDSY TD SCH (08:51)
[2018-02-27] MEDS: DOCUSATE SODIUM 100 MG CAP PO SCH ×2 (08:52→21:14)
[2018-02-27] MEDS: INSULIN GLARGINE SOLOSTAR 100 UNITS/ML 3 ML PEN SC SCH ×2 (08:54→21:15)
[2018-02-27] MEDS: ALPRAZolam 0.25 MG TABLET PO SCH ×2 (08:55→21:14)
[2018-02-27] MEDS: INSULIN ASPART 100 UNITS/ML 3 ML PEN SC SCH ×4 (08:56→21:15)
[2018-02-27 10:07] LABS: Hematocrit (blood only) 34.4 % (42-52); Hemoglobin 11.2 g/dL (14.0-18.0); Immature Granulocytes # (auto) 0.06 K/uL (0.00-0.02); Immature Granulocytes % (auto) 0.4 %; Lymphocytes % (auto) 0.7 %; Mean Corpuscular Hgb Conc 32.6 g/dL (32-36); Mean Corpuscular Volume 103.3 fL (80-100); Mean Platelet Volume 11.4 fL (7.4-10.4); Monocytes # (auto) 0.29 K/uL (0.11-0.59); Monocytes % (auto) 1.9 %; Platelet Count 110 K/uL (130-400); RDW Coefficient of Variation 12.8 % (11.5-14.5); RDW Standard Deviation 48.5 fL (36.4-46.3); Red Blood Count 3.33 M/uL (4.7-6.1); White Blood Count 15.25 K/uL (4.8-10.8)
[2018-02-27 10:40] LABS: BUN Creatinine Ratio 34.7 (10-20); Calcium 8.7 mg/dl (8.5-10.1); Creatinine Clr Calc Pharmacy 58.6 ml/min; Est GFR (African American) 67.1; Est GFR (Non-African American) 57.9; Potassium 4.6 mmol/L (3.5-5.1)
--- NOTE | 2018-02-27 10:44 | Hospitalist Progress Note ---
Date of Service February 27, 2018 Assessment & Plan (1) COPD exacerbation: This is a 58-year-old male who presents with chronic obstructive pulmonary disease exacerbation. Chronic obstructive pulmonary disease exacerbation, Acute exacerbation of COPD, gold level 3, grade C Acute on Chronic respiratory failure with hypoxia and carbon dioxide retention -CTA chest 02/21/18: no PE - repeat CXR noted - improved compared to yesterday - discussed with Dr. Odonnell continue Solumedrol to 60mg Q6h Nebs q4h encouraged patient to wear CPAP Bilateral Lower extremity edema, likely from Cor Pulmonale -patient could not tolerate ultrasound of lower extremities, D-dimer only 560 CT chest no PE -echocardiogram on 02/24/18 with EF of 65 to 70% - improving - continuie Lasix 20mg po daily Acute kidney Injury - crea back to normal Diabetes Mellitus history HbA1c 6.3, not on insulin or other anti-hyperglycemics at home - Pharmacy Glycemic control consult Hyperlipidemia. Continue statin. Ectopic atrial tachycardia on verapamil. Hypothyroidism. Continue on Synthroid. Hypertension -on lisinopril and verapamil Ongoing tobacco abuse -Nicotine patch. Deep venous thrombosis prophylaxis, heparin subcutaneously Full Code Disposition pending Subjective ff up for COPD exacerbation resting in bed, comfortable, watching TV states he feels improved compared to previous day did not use Bipap overnight, states he does not want to has occasional cough, dry denies other symptoms Physical Exam 2 Vital Signs (Past 24 Hours): Last Vital Signs Temp 36.6 C 02/27/18 06:41 Pulse 79 02/27/18 07:18 Resp 20 02/27/18 07:18 BP 151/84 H 02/27/18 06:41 Pulse Ox 97 02/27/18 07:18 Physical Exam: General- oriented x 3, not in distress, speaks in sentences with no effort or accessory muscle use Eyes- anicteric Neck- no JVD Lungs- diminished breath sounds bilaterally, slightly improved compared to yesterday mild wheeze b/l Heart- normal rate, regular rhythm; no murmurs Abdomen- normal bowel sounds, nondistended, soft, nontender Extremities- trace lower leg edema, no calf tenderness Neuro- alert, oriented x 3; no gross focal neurologic deficits Skin- warm & dry Results & Data Laboratory Results Laboratory Results - last 24 hr 02/26/18 02/27/18 02/27/18 23:14 07:18 09:52 WBC 15.25 H RBC 3.33 L Hgb 11.2 L Hct 34.4 L MCV 103.3 H MCH 33.6 MCHC 32.6 RDW Std Deviation 48.5 H RDW Coeff of Daquan 12.8 Plt Count 110 L MPV 11.4 H Immature Gran % (Auto) 0.4 Neut % (Auto) 97.0 Lymph % (Auto) 0.7 [place] % (Auto) 1.9 Eos % (Auto) 0.0 Baso % (Auto) 0.0 Immature Gran # (Auto) 0.06 H Neut # (Auto) 14.80 H Lymph # (Auto) 0.10 L [place] # (Auto) 0.29 Eos # (Auto) 0.00 Baso # (Auto) 0.00 Sodium Potassium Chloride Carbon Dioxide Anion Gap BUN Creatinine Est Cr Clr Drug Dosing Est GFR ( Amer) Est GFR (Non-Af Amer) BUN/Creatinine Ratio Glucose POC Glucose 149 H 250 H Calcium 02/27/18 02/27/18 02/27/18 09:52 10:53 16:11 WBC RBC Hgb Hct MCV MCH MCHC RDW Std Deviation RDW Coeff of Daquan Plt Count MPV Immature Gran % (Auto) Neut % (Auto) Lymph % (Auto) [place] % (Auto) Eos % (Auto) Baso % (Auto) Immature Gran # (Auto) Neut # (Auto) Lymph # (Auto) [place] # (Auto) Eos # (Auto) Baso # (Auto) Sodium 141 Potassium 4.6 Chloride 102 Carbon Dioxide 35 H Anion Gap 4.0 BUN 44 H Creatinine 1.28 Est Cr Clr Drug Dosing 58.6 Est GFR ( Amer) 67.1 Est GFR (Non-Af Amer) 57.9 BUN/Creatinine Ratio 34.7 H Glucose 291 H POC Glucose 266 H 190 H Calcium 8.7 02/27/18 20:18 WBC RBC Hgb Hct MCV MCH MCHC RDW Std Deviation RDW Coeff of Daquan Plt Count MPV Immature Gran % (Auto) Neut % (Auto) Lymph % (Auto) [place] % (Auto) Eos % (Auto) Baso % (Auto) Immature Gran # (Auto) Neut # (Auto) Lymph # (Auto) [place] # (Auto) Eos # (Auto) Baso # (Auto) Sodium Potassium Chloride Carbon Dioxide Anion Gap BUN Creatinine Est Cr Clr Drug Dosing Est GFR ( Amer) Est GFR (Non-Af Amer) BUN/Creatinine Ratio Glucose POC Glucose 238 H Calcium
--- NOTE | 2018-02-27 12:36 | Palliative Care Consultation ---
Date of Consultation February 27, 2018 Assessment & Plan (1) Goals of care, counseling/discussion: -68 year old male with PMH COPD, chronic respiratory failure, esophageal stenosis, GERD, TIA, and others, presented to the hospital with COPD exacerbation. No evidence of pneumonia or infection but started on azithromycin empyrically and treated with nebs and steroids. Patient also had hypercarbia on ABG, so is on Bipap during the night. Patient lives at home alone, has had multiple trips to the hospital recently for his chronic respiratory failure and COPD. Patient wears oxygen around the clock and continues to smoke daily. Patient states he has no friends or family, so smoking is the only thing he has to look forward to. He has been complaining about wearing the bipap here in the hospital. Stating he just wants "to ." Palliative care consulted to discuss goals of care. -Met with patient in room 204. Patient states that he dislikes the bipap because he can't get the mask on and off easily. He wakes up during sleep and has to urinate urgently and almost wets himself because he is "fighting with the mask." He states that if we could get him an easier mask to take on and off he would consider continuing it. -Uncertain if patient will need bipap at home, but perhaps the nose-only mask would work for him. We also discussed getting him a urinal for the bedside at home. -Patient does not have a plan for himself if/when he is unable to care for himself at home. He does not want to go to a facility and wants to remain home. We talked about hospice care for the future, but he is not interested at this time. -Discussed code status. Patient wants to remain a full code at this time, but does not want to be on machines long-term. Would not want a feeding tube. -POLST form completed as follows: Full code, Full treatment with clause "Trial of full treatment until no hope of meaningful recovery. Then, please make me DNR and comfortable," abx if life can be prolonged, and trial period of IVF but NO feeding tube. -Patient does not want to name a surrogate decision maker and would be comfortable the physicians deciding if he was end-stage and carrying out his wishes to be made comfortable at the end of life. -For now, continue with full treatment. (2) COPD exacerbation: (3) Chronic respiratory failure: Supervising Physician Co-Signing Physician Notes Chart reviewed, patient seen and examined PE: Patient resting comfortably, Respiratory: Respiratory rate 20, mild increased work of breathing, patient comfortable on O2 via nasal cannula CV: Regular rate Abdomen: Nondistended Agree with above note, assessment and plan as per ALAN Hassan P-we will continue to follow during this hospitalization to assist with medical decision making as needed. History of Present Illness Attending Physician: Semaj Hammond MD History of Present Illness This 68 year old male with PMH COPD, chronic respiratory failure, esophageal stenosis, GERD, TIA, and others, presented to the hospital with COPD exacerbation. No evidence of pneumonia or infection but started on azithromycin empyrically and treated with nebs and steroids. Patient also had hypercarbia on ABG, so is on Bipap during the night. Patient lives at home alone, has had multiple trips to the hospital recently for his chronic respiratory failure and COPD. Patient wears oxygen around the clock and continues to smoke daily. Patient states he has no friends or family, so smoking is the only thing he has to look forward to. He has been complaining about wearing the bipap here in the hospital. Stating he just wants "to ." Palliative care consulted to discuss goals of care. See A&P for details. Thank you kindly for this consult. I will follow as needed. Allergies Allergy/AdvReac Type Severity Reaction Status Date / Time Poultry Allergy Intermediate TURKEY - Verified 02/21/18 02:24 HIVES, RASH, NAUSEA Home Medications Home Medications Medication Instructions Recorded Confirmed Type albuterol sulfate 2.5 mg INHALATION QID PRN 01/28/18 02/21/18 History albuterol sulfate [Ventolin HFA] 2 puff INHALATION QID 01/28/18 02/21/18 History atorvastatin 40 mg PO QAM 01/28/18 02/21/18 History docusate sodium [Colace] 100 mg PO BID 01/28/18 02/21/18 History folic acid 1 mg PO QAM 01/28/18 02/21/18 History furosemide 20 mg PO QAM 01/28/18 02/21/18 History gabapentin 300 mg PO HS 01/28/18 02/21/18 History ipratropium-albuterol [Combivent 2 puff INHALATION QID 01/28/18 02/21/18 History Respimat] levothyroxine 50 mcg PO QAM 01/28/18 02/21/18 History lisinopril 20 mg PO QAM 01/28/18 02/21/18 History thiamine HCl (vitamin B1) 100 mg PO QAM 01/28/18 02/21/18 History verapamil 120 mg PO QAM 01/28/18 02/21/18 History doxycycline monohydrate 100 mg PO BID 02/21/18 02/21/18 History fluticasone-vilanterol [Breo 1 inh INHALATION DAILY 02/21/18 02/21/18 History Ellipta] omeprazole 20 mg PO DAILY 02/21/18 02/21/18 History Patient History Medical History Chronic respiratory failure (Chronic) TIA (transient ischemic attack) (Chronic) "1982" GERD (gastroesophageal reflux disease) (Chronic) COPD (chronic obstructive pulmonary disease) (Chronic) Esophageal stenosis (Chronic) "s/p dilation June 2016" 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" BPH (benign prostatic hyperplasia) (Chronic) Hypothyroidism (Chronic) Depression (Chronic) Surgical History S/P bronchoscopy (Chronic) Social History Current Living Situation: Alone Other Information That Helps Us Care for You: No Feels Safe at Home: No Smoking Status: Current every day smoker Cigarettes per Day: 30-40 Hx Alcohol Use: Yes Alcohol type: beer Alcohol Intake Frequency: 3 or more drinks per day Hx Substance Use: No Beliefs That Will Affect Care: None Communication Ability: Effective Review of Systems Constitutional: no weakness Ear, Nose, Mouth, Throat: + dysphagia (occasionally has problems swallowing) Respiratory: + cough, + dyspnea and + dyspnea on exertion Cardiovascular: + edema; no chest pain Gastrointestinal: no abdominal pain, no nausea and no vomiting Neurologic: no confusion Psychiatric: + depression and + anxiety (was started on xanax PRN) Physical Exam 2 Vital Signs (Past 24 Hours): Last Vital Signs Temp 36.7 C 02/27/18 10:54 Pulse 71 02/27/18 11:18 Resp 17 02/27/18 11:18 BP 140/69 02/27/18 10:54 Pulse Ox 95 02/27/18 11:18 Constitutional: average body habitus; no acute distress and + not healthy appearing ENMT: Ears: no hearing impairment Neck: normal visual inspection and trachea midline Respiratory: + labored breathing and + uses accessory muscles; no respiratory distress Auscultation: + diminished lung sounds, + rhonchi and + wheezes ( expiratory) Cardiovascular: Rate/Rhythm: regular rate and regular rhythm Vessels: dorsalis pedis pulses present Extremities: + edema (+2 pitting edema to BLE) Gastrointestinal (Abdomen): Inspection/Auscultation: abdomen normal to inspection and normal bowel sounds; abdomen not distended Percussion/ Palpation: abdomen soft; abdomen nontender Neurologic: awake; not confused Psychiatric: A+Ox3, euthymic affect Time Spent Midlevel 70 minutes with >50% of time spent at bedside with patient discussing condition , goals of care and POLST form.
[2018-02-27] MEDS ORDERED: INSULIN ASPART 100 UNITS/ML 3 ML PEN SC SCH ×2 (16:30)
--- NOTE | 2018-02-27 18:33 | Progress Note ---
DATE: 02/27/2018 TIME: 6:00 p.m. SUBJECTIVE: The patient remains very short of breath. He may be slightly better than yesterday. He has refused using BiPAP any longer. He is not eating very much. The patient remains generally somewhat uncomfortable and slightly agitated. OBJECTIVE: GENERAL: The patient was awake, alert, and oriented. He did not appear in acute distress. VITAL SIGNS: Temperature is 36.7. CARDIOVASCULAR: The patient has a heart rate of 79 per minute. Rhythm is regular. Blood pressure 136/66. RESPIRATORY: The patient remains very tight. Aeration might be slightly better than yesterday but markedly diminished. A little wheeze was heard today, which is probably reflecting some improvement in his airflow. Saturation is 96% on 4 L. VASCULAR: Extremities continue to show +1 to +2 edema. LABORATORY DATA: White count today 15.25, hemoglobin 11.2, platelets 110,000. These results are all holding steady. Electrolytes show sodium 141, potassium 4.6, chloride 102, bicarbonate 35, blood sugar today was as high as 291, Bun is 44, with a creatinine of 1.28, these are slightly higher than yesterday. MICROBIOLOGY: Sputum culture reports normal mic. IMPRESSION: 1. Respiratory failure, acute on chronic, with hypoxia and hypercarbia. 2. Exacerbation of chronic obstructive pulmonary disease. 3. Emphysema. 4. Esophageal stricture. 5. Cor pulmonale. COMMENTS AND RECOMMENDATIONS: The patient remains about the same. Still has very poor airflow. The patient is to continue with the nebulizer treatments as current.
[2018-02-27] MEDS: GABAPENTIN 300 MG CAP PO SCH (20:26)
[2018-02-28] MEDS: INSULIN ASPART 100 UNITS/ML 3 ML PEN SC SCH ×7 (01:18→23:58)
[2018-02-28] MEDS: ALBUT/IPRATROP 3MG/0.5MG NEB 3 ML VIAL NEB SCH ×6 (03:13→23:24)
[2018-02-28] MEDS: LEVOTHYROXINE SODIUM 50 MCG TABLET PO SCH (07:46)
[2018-02-28] MEDS: HEPARIN SOD 5,000 UNIT/0.5 ML VIAL SQ SCH ×3 (07:46→21:07)
[2018-02-28] MEDS: THIAMINE HCL 100 MG TAB PO SCH (08:20)
[2018-02-28] MEDS: ATORVASTATIN 40 MG TAB PO SCH (08:21)
[2018-02-28] MEDS: LISINOPRIL 20 MG TAB PO SCH (08:21)
[2018-02-28] MEDS: FOLIC ACID 1 MG TAB PO SCH (08:21)
[2018-02-28] MEDS: guaiFENesin 600 MG TABCR PO SCH ×2 (08:21→21:09)
[2018-02-28] MEDS: PANTOprazole 40 MG TAB PO SCH ×2 (08:21→21:08)
[2018-02-28] MEDS: VERAPAMIL HCL 120 MG TABCR PO SCH (08:21)
[2018-02-28] MEDS: NICOTINE 21 MG/24 HR TDSY TD SCH (08:21)
[2018-02-28] MEDS: FLUTICASONE/SALMETEROL (ADVAIR) 500/50 INH 14 PUFF INH SCH ×2 (08:22→12:03)
[2018-02-28] MEDS: INSULIN GLARGINE SOLOSTAR 100 UNITS/ML 3 ML PEN SC SCH ×2 (08:23→21:10)
[2018-02-28] MEDS: ALPRAZolam 0.25 MG TABLET PO SCH ×2 (08:25→21:25)
[2018-02-28] MEDS: DOCUSATE SODIUM 100 MG CAP PO SCH ×2 (08:25→21:25)
[2018-02-28] MEDS: methylPREDNISolone 60 MG in SYRINGE 0 ML IV SCH ×4 (11:41→23:51)
[2018-02-28] MEDS ORDERED: POTASSIUM CHLORIDE 10 MEQ TABCR PO STA (12:04)
--- NOTE | 2018-02-28 12:09 | Progress Note ---
DATE: 02/28/2018 PULMONARY PROGRESS NOTE TIME: 11:50 a.m. SUBJECTIVE: The patient feels slightly better. He remains very short of breath with any exertion at all. He has again refused to wear the BiPAP. He is coughing, but no sputum being produced. OBJECTIVE: GENERAL: The patient appears fairly comfortable at rest. VITAL SIGNS: Temperature is 36.6. Heart rate is 77 per minute. Rhythm is regular. Blood pressure 173/89. LUNGS: Auscultation of the lung stevens reveals some wheeze. The aeration is slightly improved compared with yesterday. Overall, the airflow is severely diminished. The wheezing is on expiration and there was prolongation to the expiratory phase. Saturation was 91% on 3.5-liter nasal cannula. ABDOMEN: Soft. It was nontender. EXTREMITIES: Again reveal edema +1 to +2 bilaterally. Intake and output yesterday were almost the same with 1052 in and 1000 out. LABORATORY DATA: Blood sugar today was 242. IMPRESSION: 1. Respiratory failure - acute on chronic with hypoxia and hypercarbia. 2. Exacerbation of chronic obstructive pulmonary disease. 3. Emphysema. 4. Cor pulmonale. 5. Esophageal stricture by history. COMMENTS: The patient is slightly improved, but not significantly. He continues to refuse the BiPAP. He is still on steroids in high dose. The patient has requested that the Advair be discontinued. I have no objection to that. We would continue with his other interventions. The patient does not seem to be getting worse and seems slightly better. The only other alternative in the short run would be if he worsened to transfer to ICU and perhaps have intubation. It is possible the patient has secretions that cannot be cleared. He would not be a candidate for bronchoscopy without being intubated. Prognosis is guarded. MTDD
--- NOTE | 2018-02-28 13:16 | Pharmacy Report ---
Pharmacy Glycemic Short Note 2 - Date of Service February 28, 2018 - Glycemic Short BSG Results (Last 24 hours): 02/27/18 02/27/18 02/28/18 16:11 20:18 00:01 POC Glucose 190 H 238 H 254 H 02/28/18 02/28/18 02/28/18 04:47 07:16 11:22 POC Glucose 174 H 149 H 242 H OUTPATIENT ANTIDIABETIC REGIMEN: * none * A1c 6.3% (02/21/18) ASSESSMENT: 02/28 * Solu-medrol 60 mg IV q6H continues today * BSG this morning 149, improved but still slightly above goal (also received bolus doses overnight)- will increase dosage max on scale conservatively * Post prandial BSGs continue to be elevated, however, carb ratio/correction factor tightened yesterday night and have not see effects of these dosages yet therefore will continue current CF/CR. Will tighten further if continue to be elevated. 02/26 * Mr. Villareal is a 68 yr old male with h/o of diabetes admitted for COPD exacerbation. He is not on any anti-diabetic agents at home. * Patient is experiencing steroid induced hyperglycemia; solu medrol dose was escalated today to 60 mg IV q6h. * He was started on SQ basal + bolus insulin on admission. * Fasting BSG of 187 mg/dL is above goal. I will increase basal insulin based on weight/stress 2 * Post prandial BSGs are all > 200 mg/dL. Patient is currently is ordered Novolog per correction factor only. I will add carb coverage since steroids have the most profound effect on post prandial BSGs. PLAN FOR INPATIENT GLYCEMIC CONTROL: * Basal insulin - increase * Lantus per scale SQ BID * 10 units for BSG < 110 mg/dL * 15 units for BSG 110- 250 mg/dL * 20 units for BSG >250 * Bolus insulin - no change * NovoLog per scale ACHS or Q6hrs while NPO * Goal Range: Low 110 mg/dL - High 140 mg/dL * Correction Factor: 15 mg/dL/unit * Nutritional / Prandial insulin per carb ratio of 1 unit per 6 grams CHO consumed PLAN FOR DISCHARGE: * A1c of 6.3 % meets criteria for pre-diabetes * Patient is currently not on anti-diabetic agents as an outpatient * Recommend lifestyle/dietary modifications * May consider starting metformin ER 500 mg PO daily with dinner * can increase by 500 mg per week as tolerated to a max of 1000 mg BID
--- NOTE | 2018-02-28 18:08 | Hospitalist Progress Note ---
Date of Service February 28, 2018 Assessment & Plan (1) COPD exacerbation: This is a 58-year-old male who presents with chronic obstructive pulmonary disease exacerbation. Chronic obstructive pulmonary disease exacerbation, Acute exacerbation of COPD, gold level 3, grade C Acute on Chronic respiratory failure with hypoxia and carbon dioxide retention -CTA chest 02/21/18: no PE - repeat CXR noted - clinically, seems to be slightly improved compared to yesterday - discussed with Dr. Odonnell continue Solumedrol 60mg Q6h Nebs q4h Advair, discussed with darcy encouraged patient to wear CPAP Bilateral Lower extremity edema, likely from Cor Pulmonale -patient could not tolerate ultrasound of lower extremities, D-dimer only 560 CT chest no PE -echocardiogram on 02/24/18 with EF of 65 to 70% - improving - continue Lasix 20mg po daily Acute kidney Injury - crea back to normal Diabetes Mellitus history HbA1c 6.3, not on insulin or other anti-hyperglycemics at home - Pharmacy Glycemic control consult Hyperlipidemia. Continue statin. Ectopic atrial tachycardia on verapamil. Hypothyroidism. Continue on Synthroid. Hypertension -on lisinopril and verapamil Ongoing tobacco abuse -Nicotine patch. Deep venous thrombosis prophylaxis, heparin subcutaneously Full Code Disposition pending will need Rehab/SNF upon discharge Subjective ff up for respiratory failure seen sitting at the edge of the bed not in distress on 3 L o2 via NC able to speak in sentences with less effort states he feels improved today compared to yesterday less cough able to walk to the commode with less dyspnea no other symptoms Physical Exam 2 Vital Signs (Past 24 Hours): Last Vital Signs Temp 36.9 C 02/28/18 15:41 Pulse 20 L 02/28/18 15:41 Resp 28 H 02/28/18 15:24 BP 138/72 02/28/18 15:41 Pulse Ox 98 02/28/18 15:41 Physical Exam: General- oriented x 3, not in distress, speaks in sentences very minimal effort, no accessory muscle use Eyes- anicteric Neck- no JVD Lungs-diminished breath sounds bilaterally no rales/wheezes Heart- normal rate, regular rhythm; no murmurs Abdomen- normal bowel sounds, nondistended, soft, nontender Extremities- no pretibial edema, no calf tenderness Neuro- alert, oriented x 3; no gross focal neurologic deficits Skin- warm & dry Results & Data Laboratory Results Laboratory Results - last 24 hr 02/27/18 02/28/18 02/28/18 20:18 00:01 04:47 POC Glucose 238 H 254 H 174 H 02/28/18 02/28/18 02/28/18 07:16 11:22 16:38 POC Glucose 149 H 242 H 209 H
[2018-02-28] MEDS: GABAPENTIN 300 MG CAP PO SCH (21:08)
[2018-03-01] MEDS: ALBUT/IPRATROP 3MG/0.5MG NEB 3 ML VIAL NEB SCH ×6 (03:16→23:11)
[2018-03-01] MEDS: INSULIN ASPART 100 UNITS/ML 3 ML PEN SC SCH ×5 (04:04→20:56)
[2018-03-01] MEDS: methylPREDNISolone 60 MG in SYRINGE 0 ML IV SCH ×4 (05:51→22:56)
[2018-03-01] MEDS: LEVOTHYROXINE SODIUM 50 MCG TABLET PO SCH (05:51)
[2018-03-01] MEDS: HEPARIN SOD 5,000 UNIT/0.5 ML VIAL SQ SCH ×3 (05:52→20:57)
[2018-03-01] MEDS: LISINOPRIL 20 MG TAB PO SCH (08:14)
[2018-03-01] MEDS: PANTOprazole 40 MG TAB PO SCH ×2 (08:14→20:23)
[2018-03-01] MEDS: guaiFENesin 600 MG TABCR PO SCH ×2 (08:14→20:22)
[2018-03-01] MEDS: VERAPAMIL HCL 120 MG TABCR PO SCH (08:15)
[2018-03-01] MEDS: NICOTINE 21 MG/24 HR TDSY TD SCH (08:15)
[2018-03-01] MEDS: INSULIN GLARGINE SOLOSTAR 100 UNITS/ML 3 ML PEN SC SCH ×2 (08:15→20:55)
[2018-03-01] MEDS: FOLIC ACID 1 MG TAB PO SCH (08:15)
[2018-03-01] MEDS: THIAMINE HCL 100 MG TAB PO SCH (08:15)
[2018-03-01] MEDS: ATORVASTATIN 40 MG TAB PO SCH (08:15)
[2018-03-01] MEDS: DOCUSATE SODIUM 100 MG CAP PO SCH ×2 (08:16→20:21)
[2018-03-01] MEDS: ALPRAZolam 0.25 MG TABLET PO SCH ×2 (08:19→22:55)
[2018-03-01] MEDS ORDERED: INSULIN GLARGINE SOLOSTAR 100 UNITS/ML 3 ML PEN SC STA (10:08)
[2018-03-01] MEDS: FLUTICASONE/SALMETEROL (ADVAIR) 500/50 INH 14 PUFF INH SCH (20:21)
[2018-03-01] MEDS: GABAPENTIN 300 MG CAP PO SCH (20:22)
--- NOTE | 2018-03-01 21:25 | Hospitalist Progress Note ---
Date of Service March 01, 2018 Assessment & Plan (1) COPD exacerbation: This is a 58-year-old male who presents with chronic obstructive pulmonary disease exacerbation. Chronic obstructive pulmonary disease exacerbation, Acute exacerbation of COPD, gold level 3, grade C Acute on Chronic respiratory failure with hypoxia and carbon dioxide retention -CTA chest 02/21/18: no PE - repeat CXR noted - seems to be improving slowly continue Solumedrol 60mg Q6h Nebs q4h Advair, discussed with patient and encouraged use encouraged patient to wear CPAP Bilateral Lower extremity edema, likely from Cor Pulmonale -patient could not tolerate ultrasound of lower extremities, D-dimer only 560 CT chest no PE -echocardiogram on 02/24/18 with EF of 65 to 70% - improved - continue Lasix 20mg po daily Acute kidney Injury - crea back to normal Diabetes Mellitus history HbA1c 6.3, not on insulin or other anti-hyperglycemics at home - Pharmacy Glycemic control consult Hyperlipidemia. Continue statin. Ectopic atrial tachycardia on verapamil. Hypothyroidism. Continue on Synthroid. Hypertension -on lisinopril and verapamil Ongoing tobacco abuse -Nicotine patch. Deep venous thrombosis prophylaxis, heparin subcutaneously Full Code Disposition pending will need Rehab/SNF upon discharge Subjective ff up for respiratory failure seen sitting in bed comfortable on 3 L o2 via NC speaks in sentences with less effort feels about the same as yesterday no other symptoms Physical Exam 2 Vital Signs (Past 24 Hours): Last Vital Signs Temp 36.5 C 03/01/18 19:24 Pulse 73 03/01/18 19:24 Resp 20 03/01/18 19:24 BP 153/78 H 03/01/18 19:24 Pulse Ox 98 03/01/18 19:24 Results & Data Laboratory Results Laboratory Results - last 24 hr 02/28/18 03/01/18 03/01/18 23:54 04:03 07:15 POC Glucose 239 H 172 H 140 H 03/01/18 03/01/18 03/01/18 11:35 11:37 16:30 POC Glucose 409 H* 215 H 216 H 03/01/18 20:47 POC Glucose 205 H
[2018-03-02] MEDS: ALBUT/IPRATROP 3MG/0.5MG NEB 3 ML VIAL NEB SCH ×6 (03:33→23:11)
[2018-03-02] MEDS: LEVOTHYROXINE SODIUM 50 MCG TABLET PO SCH (05:50)
[2018-03-02] MEDS: methylPREDNISolone 60 MG in SYRINGE 0 ML IV SCH ×4 (05:50→23:22)
[2018-03-02] MEDS: HEPARIN SOD 5,000 UNIT/0.5 ML VIAL SQ SCH ×3 (05:50→20:57)
[2018-03-02] MEDS: INSULIN ASPART 100 UNITS/ML 3 ML PEN SC SCH ×4 (08:37→20:58)
[2018-03-02] MEDS: INSULIN GLARGINE SOLOSTAR 100 UNITS/ML 3 ML PEN SC SCH ×2 (08:38→20:57)
[2018-03-02] MEDS: FOLIC ACID 1 MG TAB PO SCH (08:39)
[2018-03-02] MEDS: THIAMINE HCL 100 MG TAB PO SCH (08:39)
[2018-03-02] MEDS: FLUTICASONE/SALMETEROL (ADVAIR) 500/50 INH 14 PUFF INH SCH ×2 (08:39→20:19)
[2018-03-02] MEDS: guaiFENesin 600 MG TABCR PO SCH ×2 (08:39→20:20)
[2018-03-02] MEDS: VERAPAMIL HCL 120 MG TABCR PO SCH (08:39)
[2018-03-02] MEDS: LISINOPRIL 20 MG TAB PO SCH (08:39)
[2018-03-02] MEDS: PANTOprazole 40 MG TAB PO SCH ×2 (08:39→20:20)
[2018-03-02] MEDS: NICOTINE 21 MG/24 HR TDSY TD SCH (08:40)
[2018-03-02] MEDS: ATORVASTATIN 40 MG TAB PO SCH (08:40)
[2018-03-02] MEDS: DOCUSATE SODIUM 100 MG CAP PO SCH ×2 (08:41→20:21)
[2018-03-02] MEDS: ALPRAZolam 0.25 MG TABLET PO SCH ×2 (08:41→23:22)
--- NOTE | 2018-03-02 11:37 | Pharmacy Report ---
Pharmacy Glycemic Short Note 2 - Date of Service March 02, 2018 - Glycemic Short BSG Results (Last 24 hours): 03/01/18 03/01/18 03/01/18 11:35 11:37 16:30 POC Glucose 409 H* 215 H 216 H 03/01/18 03/02/18 03/02/18 20:47 07:23 11:26 POC Glucose 205 H 195 H 126 H ASSESSMENT: 03/02 * I adjusted his lantus scale for yesterday evening. 20 units of lantus seems to provide improved BSGs while on steroids. FBS was high this morning at 195mg/ dL; however, lunch BSG normalized 126mg/dL. Steroids continue. 02/28 * Solu-medrol 60 mg IV q6H continues today * BSG this morning 149, improved but still slightly above goal (also received bolus doses overnight)- will increase dosage max on scale conservatively * Post prandial BSGs continue to be elevated, however, carb ratio/correction factor tightened yesterday night and have not see effects of these dosages yet therefore will continue current CF/CR. Will tighten further if continue to be elevated. 02/26 * Mr. Villareal is a 68 yr old male with h/o of diabetes admitted for COPD exacerbation. He is not on any anti-diabetic agents at home. * Patient is experiencing steroid induced hyperglycemia; solu medrol dose was escalated today to 60 mg IV q6h. * He was started on SQ basal + bolus insulin on admission. * Fasting BSG of 187 mg/dL is above goal. I will increase basal insulin based on weight/stress 2 * Post prandial BSGs are all > 200 mg/dL. Patient is currently is ordered Novolog per correction factor only. I will add carb coverage since steroids have the most profound effect on post prandial BSGs. PLAN FOR INPATIENT GLYCEMIC CONTROL: * Basal insulin - increase * Lantus per scale SQ BID * 10 units for BSG < 110 mg/dL * 15 units for BSG 110- 180 mg/dL * 20 units for BSG >180 * Bolus insulin - no change * NovoLog per scale ACHS or Q6hrs while NPO * Goal Range: Low 110 mg/dL - High 140 mg/dL * Correction Factor: 15 mg/dL/unit * Nutritional / Prandial insulin per carb ratio of 1 unit per 6 grams CHO consumed PLAN FOR DISCHARGE: * A1c of 6.3 % meets criteria for pre-diabetes * Patient is currently not on anti-diabetic agents as an outpatient * Recommend lifestyle/dietary modifications * May consider starting metformin ER 500 mg PO daily with dinner * can increase by 500 mg per week as tolerated to a max of 1000 mg BID
--- NOTE | 2018-03-02 12:35 | Hospitalist Progress Note ---
Date of Service March 02, 2018 delayed entry date of service as noted above Assessment & Plan (1) COPD exacerbation: This is a 58-year-old male who presents with chronic obstructive pulmonary disease exacerbation. Chronic obstructive pulmonary disease exacerbation, Acute exacerbation of COPD, gold level 3, grade C Acute on Chronic respiratory failure with hypoxia and carbon dioxide retention -CTA chest 02/21/18: no PE - repeat CXR noted - improving slowly continue Solumedrol 60mg Q6h Nebs q4h Advair, discussed with patient and encouraged use encouraged patient to wear CPAP Bilateral Lower extremity edema, likely from Cor Pulmonale -patient could not tolerate ultrasound of lower extremities, D-dimer only 560 CT chest no PE -echocardiogram on 02/24/18 with EF of 65 to 70% - improved - continue Lasix 20mg po daily Acute kidney Injury - crea back to normal Diabetes Mellitus history HbA1c 6.3, not on insulin or other anti-hyperglycemics at home - Pharmacy Glycemic control consult Hyperlipidemia. Continue statin. Ectopic atrial tachycardia on verapamil. Hypothyroidism. Continue on Synthroid. Hypertension -on lisinopril and verapamil Ongoing tobacco abuse -Nicotine patch. Deep venous thrombosis prophylaxis, heparin subcutaneously Full Code Disposition pending will need Rehab/SNF upon discharge Subjective ff up for copd exacerbation seen resting in bed, comfortable states breathing is improving able to ambulate in the room with less dyspnea less cough no other symptoms Physical Exam 2 Vital Signs (Past 24 Hours): Last Vital Signs Temp 36.6 C 03/02/18 11:08 Pulse 77 03/02/18 11:10 Resp 22 03/02/18 11:10 BP 124/68 03/02/18 11:08 Pulse Ox 98 03/02/18 11:10 Physical Exam: General- oriented x 2, not in distress, speaks in sentences with no effort or accessory muscle use Eyes- anicteric Neck- no JVD Lungs- distant breath sounds but clear bl Heart- normal rate, regular rhythm; no murmurs Abdomen- normal bowel sounds, nondistended, soft, nontender Extremities- mild lower leg edema, no calf tenderness Neuro- alert, oriented x 3; no gross focal neurologic deficits Skin- warm & dry Results & Data Laboratory Results noted and reviewed
[2018-03-02] MEDS: GABAPENTIN 300 MG CAP PO SCH (20:20)
[2018-03-03] MEDS: ALBUT/IPRATROP 3MG/0.5MG NEB 3 ML VIAL NEB SCH ×6 (03:43→23:24)
[2018-03-03] MEDS: LEVOTHYROXINE SODIUM 50 MCG TABLET PO SCH (05:41)
[2018-03-03] MEDS: methylPREDNISolone 60 MG in SYRINGE 0 ML IV SCH ×3 (05:41→17:11)
[2018-03-03] MEDS: HEPARIN SOD 5,000 UNIT/0.5 ML VIAL SQ SCH ×3 (05:42→21:05)
[2018-03-03] MEDS: FLUTICASONE/SALMETEROL (ADVAIR) 500/50 INH 14 PUFF INH SCH ×2 (08:19→19:42)
[2018-03-03] MEDS: THIAMINE HCL 100 MG TAB PO SCH (08:20)
[2018-03-03] MEDS: VERAPAMIL HCL 120 MG TABCR PO SCH (08:20)
[2018-03-03] MEDS: guaiFENesin 600 MG TABCR PO SCH ×2 (08:20→19:42)
[2018-03-03] MEDS: PANTOprazole 40 MG TAB PO SCH ×2 (08:20→19:41)
[2018-03-03] MEDS: ATORVASTATIN 40 MG TAB PO SCH (08:21)
[2018-03-03] MEDS: NICOTINE 21 MG/24 HR TDSY TD SCH (08:21)
[2018-03-03] MEDS: FOLIC ACID 1 MG TAB PO SCH (08:21)
[2018-03-03] MEDS: LISINOPRIL 20 MG TAB PO SCH (08:21)
[2018-03-03] MEDS: INSULIN ASPART 100 UNITS/ML 3 ML PEN SC SCH ×4 (08:28→21:05)
[2018-03-03] MEDS: ALPRAZolam 0.25 MG TABLET PO SCH ×2 (08:28→19:41)
[2018-03-03] MEDS: DOCUSATE SODIUM 100 MG CAP PO SCH ×2 (08:30→19:41)
[2018-03-03] MEDS ORDERED: INSULIN GLARGINE SOLOSTAR 100 UNITS/ML 3 ML PEN SC SCH (09:00)
--- NOTE | 2018-03-03 11:33 | Pharmacy Report ---
Pharmacy Glycemic Short Note 2 - Date of Service March 03, 2018 - Glycemic Short BSG Results (Last 24 hours): 03/02/18 03/02/18 03/02/18 11:26 16:38 20:37 POC Glucose 126 H 132 H 222 H 03/03/18 03/03/18 07:27 11:21 POC Glucose 123 H 158 H ASSESSMENT: 03/03 * It appears that this patient requires 70-80 units of insulin per day to reach adequate glycemic control while receiving the current dose of IV Solu-Medrol and tolerating a diet. * Will give 20 units of Lantus this AM as fasting BSG at goal w/ 40 units of Lantus on board. Will continue to use a dosing scale for Lantus this PM should provider reduce steroid dose today. * CF and CR are performing well - will continue the same 03/02 * I adjusted his lantus scale for yesterday evening. 20 units of lantus seems to provide improved BSGs while on steroids. FBS was high this morning at 195mg/ dL; however, lunch BSG normalized 126mg/dL. Steroids continue. 02/28 * Solu-medrol 60 mg IV q6H continues today * BSG this morning 149, improved but still slightly above goal (also received bolus doses overnight)- will increase dosage max on scale conservatively * Post prandial BSGs continue to be elevated, however, carb ratio/correction factor tightened yesterday night and have not see effects of these dosages yet therefore will continue current CF/CR. Will tighten further if continue to be elevated. PLAN FOR INPATIENT GLYCEMIC CONTROL: * Basal insulin - increase * Lantus per scale SQ BID * 0 units if BSG less than 100 * 8 units for BSG 100-120 mg/dL * 14 units for BSG 121-140 mg/dL * 20 units for BSG >140 * Bolus insulin - no change * NovoLog per scale ACHS or Q6hrs while NPO * Goal Range: Low 110 mg/dL - High 140 mg/dL * Correction Factor: 15 mg/dL/unit * Nutritional / Prandial insulin per carb ratio of 1 unit per 6 grams CHO consumed PLAN FOR DISCHARGE: * A1c of 6.3 % meets criteria for pre-diabetes * Patient is currently not on anti-diabetic agents as an outpatient * Recommend lifestyle/dietary modifications * May consider starting metformin ER 500 mg PO daily with dinner
--- NOTE | 2018-03-03 13:13 | Progress Note ---
DATE: 03/01/2018 PROBLEM LIST: Includes 1. Respiratory failure, acute on chronic, hypoxia and hypercarbia. 2. Exacerbation of chronic obstructive pulmonary disease. 3. Emphysema. 4. Cor pulmonale. 5. Esophageal stricture by history. SUBJECTIVE: Patient feels about the same today as he did yesterday. Continues to refuse to wear BiPAP. He continues to be short of breath with any type of exertion. I did ask him about the possibility of using a vibration vest as he does have some cough with some congestion. He refused this. He states that he has had it before. He was able to produce a sputum sample to see if we can get that sent for a culture and Gram stain. Denies any headache or lightheadedness, denies any dizziness. He states that he is tired today. Denies any other concerns or problems at this time. OBJECTIVE: GENERAL: Patient is a 68-year-old male, lying in bed. He was sleeping when I entered, he aroused easily. No acute distress. Once awoken, he is alert and oriented x3. Mood and affect are good. VITAL SIGNS: Temperature 36.6, pulse is 79, respirations 20, blood pressure is 142/78, pulse oximetry 93% on 3.5 L of oxygen via nasal cannula. HEENT: Normocephalic and atraumatic. Pupils equal, round, reactive to light and accommodation. NECK: Supple. There is no mass, no adenopathy, no bruit. CHEST: He does have some faint wheezing throughout. Poor to fair air movement throughout, which is apparently his baseline per discussion with Dr. Odonnell yesterday. No rales or rhonchi noted. CARDIOVASCULAR: Regular rate and rhythm. No appreciated murmurs, gallops, or rubs. ABDOMEN: Soft and nontender. No guarding or rigidity. EXTREMITIES: +1 edema bilaterally, no erythema, no tenderness. LABORATORY DATA: No new lab data. IMAGING: No new imaging. IMPRESSION AND PLAN: 1. Acute on chronic respiratory failure with hypoxia and hypercarbia. At this point, patient continues on oxygen and continues to refuse BiPAP even though it would be beneficial for him. At this point, we will continue with the same course of treatment with steroids and inhalers. He was agreeable to go back on Advair to see if it would be helpful for him. 2. Exacerbation of chronic obstructive pulmonary disease. Continue current medications as they are. 3. Emphysema. Patient's emphysema is very severe. At this point, he is not compliant with medications, although he did agree to use his Advair while he is in the hospital. He has not used Advair at home in several years. 4. Cor pulmonale, stable. 5. Esophageal stricture by history. In reviewing Dr. Odonnell's note from yesterday, he does make a note that if the patient does worsen at all and he cannot clear the secretions, he may benefit from being transferred to ICU and perhaps being intubated with the potential for bronchoscopy done under intubation. Continue to monitor at this point.
--- NOTE | 2018-03-03 19:18 | Pulmonology Progress Note ---
Date of Service March 03, 2018 Assessment & Plan (1) COPD exacerbation: Impression: 1. COPD exacerbation, gold level 3, grade C, improving. 2. Esophageal strictures, could be contributing to his symptoms. 3. Cor pulmonale. 4. Chronic hypoxic respiratory failure. Plan: 1. Change steroids to p.o. prednisone. 2. Continue current bronchodilators. 3. Continue with PPI twice daily. 4. Continue with Xanax. 5. Placement at pulmonary rehab. Thank you, will follow. Subjective The patient is feeling better however he continues to have difficulty raising his sputum. He has been in the hospital for over a week but he is definitely better than I saw him a week ago. Review of system otherwise unremarkable. Physical Exam 2 Vital Signs (Past 24 Hours): Last Vital Signs Temp 36.5 C 03/03/18 15:30 Pulse 77 03/03/18 17:25 Resp 20 03/03/18 15:30 BP 140/73 03/03/18 15:30 Pulse Ox 95 03/03/18 15:30 Physical Exam: Vital signs are stable, S1-S2 regular rate and rhythm, 95% on nasal cannula. No wheezing, minimal rhonchi bilaterally. Abdomen is benign no edema. Results & Data Laboratory Results No new labs. Diagnostic Findings No new imaging.
[2018-03-03] MEDS: GABAPENTIN 300 MG CAP PO SCH (19:41)
[2018-03-03] MEDS: predniSONE 20 MG TAB PO SCH (20:37)
[2018-03-03] MEDS: INSULIN GLARGINE SOLOSTAR 100 UNITS/ML 3 ML PEN SC SCH (21:05)
--- NOTE | 2018-03-03 22:38 | Hospitalist Progress Note ---
Date of Service March 03, 2018 Assessment & Plan (1) COPD exacerbation: This is a 58-year-old male who presents with chronic obstructive pulmonary disease exacerbation. Chronic obstructive pulmonary disease exacerbation, Acute exacerbation of COPD, gold level 3, grade C Acute on Chronic respiratory failure with hypoxia and carbon dioxide retention -CTA chest 02/21/18: no PE - repeat CXR noted - improving overall, though rather slowly Solumedrol 60mg Q6h changed to Prednisone 40mg BID Nebs q4h Advair, discussed with patient and encouraged use Bilateral Lower extremity edema, likely from Cor Pulmonale -patient could not tolerate ultrasound of lower extremities, D-dimer only 560 CT chest no PE -echocardiogram on 02/24/18 with EF of 65 to 70% - improved - continue Lasix 20mg po daily Acute kidney Injury - crea back to normal Diabetes Mellitus history HbA1c 6.3, not on insulin or other anti-hyperglycemics at home - Pharmacy Glycemic control consult Hyperlipidemia. Continue statin. Ectopic atrial tachycardia on verapamil. Hypothyroidism. Continue on Synthroid. Hypertension -on lisinopril and verapamil Ongoing tobacco abuse -Nicotine patch. Deep venous thrombosis prophylaxis, heparin subcutaneously Full Code Disposition pending will need Rehab/SNF upon discharge Subjective ff up for copd exacerbation seen resting in bed, having his nebs comfortable states breathing continues to improve, less cough able to ambulate with PT today with less dyspnea no other symptoms Physical Exam 2 Vital Signs (Past 24 Hours): Last Vital Signs Temp 36.6 C 03/03/18 19:35 Pulse 78 03/03/18 19:35 Resp 24 03/03/18 19:35 BP 164/81 H 03/03/18 19:35 Pulse Ox 96 03/03/18 19:35 Physical Exam: General- oriented x 3, not in distress, speaks in sentences with no effort or accessory muscle use Eyes- anicteric Neck- no JVD Lungs- distant breath sounds, no wheezing bl Heart- normal rate, regular rhythm; no murmurs Abdomen- normal bowel sounds, nondistended, soft, nontender Extremities- trace lower legl edema, no calf tenderness Neuro- alert, oriented x 3; no gross focal neurologic deficits Skin- warm & dry Results & Data Laboratory Results noted and reviewed
[2018-03-04] MEDS: ALBUT/IPRATROP 3MG/0.5MG NEB 3 ML VIAL NEB SCH ×6 (03:48→23:04)
[2018-03-04] MEDS: LEVOTHYROXINE SODIUM 50 MCG TABLET PO SCH (05:43)
[2018-03-04] MEDS: HEPARIN SOD 5,000 UNIT/0.5 ML VIAL SQ SCH ×3 (05:43→21:03)
[2018-03-04] MEDS: FOLIC ACID 1 MG TAB PO SCH (08:06)
[2018-03-04] MEDS: ATORVASTATIN 40 MG TAB PO SCH (08:06)
[2018-03-04] MEDS: PANTOprazole 40 MG TAB PO SCH ×2 (08:06→20:44)
[2018-03-04] MEDS: guaiFENesin 600 MG TABCR PO SCH ×2 (08:06→20:43)
[2018-03-04] MEDS: THIAMINE HCL 100 MG TAB PO SCH (08:06)
[2018-03-04] MEDS: predniSONE 20 MG TAB PO SCH ×2 (08:06→20:44)
[2018-03-04] MEDS: VERAPAMIL HCL 120 MG TABCR PO SCH (08:07)
[2018-03-04] MEDS: FLUTICASONE/SALMETEROL (ADVAIR) 500/50 INH 14 PUFF INH SCH ×2 (08:07→20:41)
[2018-03-04] MEDS: LISINOPRIL 20 MG TAB PO SCH (08:07)
[2018-03-04] MEDS: NICOTINE 21 MG/24 HR TDSY TD SCH (08:07)
[2018-03-04] MEDS: DOCUSATE SODIUM 100 MG CAP PO SCH ×2 (08:09→20:42)
[2018-03-04] MEDS: INSULIN ASPART 100 UNITS/ML 3 ML PEN SC SCH ×4 (08:11→21:02)
[2018-03-04] MEDS: INSULIN GLARGINE SOLOSTAR 100 UNITS/ML 3 ML PEN SC SCH ×2 (08:13→21:00)
[2018-03-04] MEDS: ALPRAZolam 0.25 MG TABLET PO SCH ×2 (08:19→23:29)
--- NOTE | 2018-03-04 10:04 | Pharmacy Report ---
Pharmacy Glycemic Short Note 2 - Date of Service March 04, 2018 - Glycemic Short BSG Results (Last 24 hours): 03/03/18 03/03/18 03/03/18 11:21 16:36 20:55 POC Glucose 158 H 149 H 178 H 03/04/18 07:35 POC Glucose 169 H ASSESSMENT: 03/04 * All BSGs less than 180 over the last 24 hrs. * Steroid dose decreased last PM (Solu-Medrol 60mg Q 6 hrs --> Prednisone 40mg BID) - would expect improving insulin sensitivity today * Will trial current CF and CR w/ breakfast today as needs may still be quite high with current steroid dose 03/03 * It appears that this patient requires 70-80 units of insulin per day to reach adequate glycemic control while receiving the current dose of IV Solu-Medrol and tolerating a diet. * Will give 20 units of Lantus this AM as fasting BSG at goal w/ 40 units of Lantus on board. Will continue to use a dosing scale for Lantus this PM should provider reduce steroid dose today. * CF and CR are performing well - will continue the same PLAN FOR INPATIENT GLYCEMIC CONTROL: * Basal insulin - decrease * Lantus per scale SQ BID * 0 units if BSG less than 110 * 8 units for BSG 110-120 mg/dL * 14 units for BSG 121-200 mg/dL * 20 units for BSG 200 * Bolus insulin - no change * NovoLog per scale ACHS or Q6hrs while NPO * Goal Range: Low 110 mg/dL - High 140 mg/dL * Correction Factor: 15 mg/dL/unit * Nutritional / Prandial insulin per carb ratio of 1 unit per 6 grams CHO consumed PLAN FOR DISCHARGE: * A1c of 6.3 % meets criteria for pre-diabetes * Patient is currently not on anti-diabetic agents as an outpatient * Recommend lifestyle/dietary modifications * May consider starting metformin 500 mg PO daily with dinner
--- NOTE | 2018-03-04 18:03 | Pulmonology Progress Note ---
Date of Service March 04, 2018 Assessment & Plan (1) COPD exacerbation: Impression: 1. COPD exacerbation, gold level 3, grade C, improving. 2. Esophageal strictures, could be contributing to his symptoms. 3. Cor pulmonale. 4. Chronic hypoxic respiratory failure. Plan: 1. Change steroids to p.o. prednisone 40 mg p.o. twice daily taper by 10 mg every 4 days. 2. Continue current bronchodilators. 3. Continue with PPI twice daily given his severe GERD with hiatal hernia. 4. Continue with Xanax. 5. Placement at pulmonary rehab. Physical therapy is evaluating the patient, appreciated. Thank you, will follow as needed, please call me with any questions. Subjective The patient is feeling better, his O2 saturation remained at 96% on 3 L, denies any chest pain, he was ambulatory with physical therapy. Physical Exam 2 Vital Signs (Past 24 Hours): Last Vital Signs Temp 36.5 C 03/04/18 16:00 Pulse 73 03/04/18 16:00 Resp 20 03/04/18 16:00 BP 136/69 03/04/18 16:00 Pulse Ox 96 03/04/18 16:00 Physical Exam: Vital signs are stable, S1-S2 regular rate and rhythm, distant breath sounds, abdomen is benign, peripheral edema, neurologically nonfocal. Results & Data Laboratory Results No new labs, glucose being controlled. Diagnostic Findings No new imaging.
--- NOTE | 2018-03-04 20:29 | Hospitalist Progress Note ---
Date of Service March 04, 2018 Assessment & Plan (1) COPD exacerbation: This is a 58-year-old male who presents with chronic obstructive pulmonary disease exacerbation. Chronic obstructive pulmonary disease exacerbation, Acute exacerbation of COPD, gold level 3, grade C Acute on Chronic respiratory failure with hypoxia and carbon dioxide retention -CTA chest 02/21/18: no PE - repeat CXR noted - improving gradually Solumedrol 60mg Q6h changed to Prednisone 40mg BID , tolerating well Nebs q4h Advair, discussed with patient and encouraged use Bilateral Lower extremity edema, likely from Cor Pulmonale -patient could not tolerate ultrasound of lower extremities, D-dimer only 560 CT chest no PE -echocardiogram on 02/24/18 with EF of 65 to 70% - improved - continue Lasix 20mg po daily Acute kidney Injury - crea back to normal Diabetes Mellitus history HbA1c 6.3, not on insulin or other anti-hyperglycemics at home - Pharmacy Glycemic control consult Hyperlipidemia. Continue statin. Ectopic atrial tachycardia on verapamil. Hypothyroidism. Continue on Synthroid. Hypertension -on lisinopril and verapamil Ongoing tobacco abuse -Nicotine patch. Deep venous thrombosis prophylaxis, heparin subcutaneously Full Code Disposition pending will need Rehab/SNF upon discharge Subjective ff up for copd exacerbation seen resting in bed comfortably watching tV breathing continues to improve gradually ambulated to RN station, less dyspneic no other symptoms Physical Exam 2 Vital Signs (Past 24 Hours): Last Vital Signs Temp 36.7 C 03/04/18 19:06 Pulse 83 03/04/18 19:33 Resp 16 03/04/18 19:33 BP 137/67 03/04/18 19:06 Pulse Ox 98 03/04/18 19:33 Physical Exam: General- oriented x 3, not in distress, speaks in sentences with no effort or accessory muscle use Eyes- anicteric Neck- no JVD Lungs- diminished but clear BS bilaterally Heart- normal rate, regular rhythm; no murmurs Abdomen- normal bowel sounds, nondistended, soft, nontender Extremities-mild lower leg edema Neuro- alert, oriented x 3; no gross focal neurologic deficits Skin- warm & dry Results & Data Laboratory Results Laboratory Results - last 24 hr 03/03/18 03/04/18 03/04/18 20:55 07:35 11:28 POC Glucose 178 H 169 H 83 03/04/18 03/04/18 16:25 20:10 POC Glucose 140 H 209 H
[2018-03-04] MEDS: GABAPENTIN 300 MG CAP PO SCH (20:43)
[2018-03-05] MEDS: ALBUT/IPRATROP 3MG/0.5MG NEB 3 ML VIAL NEB SCH ×6 (03:10→23:01)
[2018-03-05] MEDS: LEVOTHYROXINE SODIUM 50 MCG TABLET PO SCH (05:34)
[2018-03-05] MEDS: HEPARIN SOD 5,000 UNIT/0.5 ML VIAL SQ SCH (05:35)
[2018-03-05] MEDS: FLUTICASONE/SALMETEROL (ADVAIR) 500/50 INH 14 PUFF INH SCH ×2 (09:27→21:04)
[2018-03-05] MEDS: predniSONE 20 MG TAB PO SCH ×2 (09:28→21:03)
[2018-03-05] MEDS: ATORVASTATIN 40 MG TAB PO SCH (09:28)
[2018-03-05] MEDS: FOLIC ACID 1 MG TAB PO SCH (09:28)
[2018-03-05] MEDS: LISINOPRIL 20 MG TAB PO SCH (09:28)
[2018-03-05] MEDS: PANTOprazole 40 MG TAB PO SCH ×2 (09:29→21:02)
[2018-03-05] MEDS: NICOTINE 21 MG/24 HR TDSY TD SCH (09:29)
[2018-03-05] MEDS: VERAPAMIL HCL 120 MG TABCR PO SCH (09:29)
[2018-03-05] MEDS: THIAMINE HCL 100 MG TAB PO SCH (09:29)
[2018-03-05] MEDS: INSULIN GLARGINE SOLOSTAR 100 UNITS/ML 3 ML PEN SC SCH ×2 (09:31→21:03)
[2018-03-05] MEDS: INSULIN ASPART 100 UNITS/ML 3 ML PEN SC SCH ×4 (09:32→21:04)
[2018-03-05] MEDS: ALPRAZolam 0.25 MG TABLET PO SCH ×2 (09:35→21:01)
[2018-03-05] MEDS ORDERED: HEPARIN 25000 UNIT/500 ML D5W IV ONE (09:48)
[2018-03-05] MEDS ORDERED: dilTIAZem HCl 5 MG/ML 5 ML VIAL IV STA (09:59)
[2018-03-05] MEDS ORDERED: WARFARIN SOD 5 MG TAB PO STA (09:59)
[2018-03-05] MEDS ORDERED: Heparin IV Standard *NO* Bolus SCH (10:00)
[2018-03-05] MEDS: guaiFENesin 600 MG TABCR PO SCH ×2 (10:13→21:02)
[2018-03-05] MEDS: DOCUSATE SODIUM 100 MG CAP PO SCH ×2 (10:13→21:06)
[2018-03-05] MEDS: HEPARIN SODIUM/DEXTROSE 25,000 UNITS/500 ML BAG IV SCH (10:14)
[2018-03-05] MEDS: dilTIAZem HCl 125 MG in DEXTROSE 5% 100 ML IV SCH ×2 (10:16→21:01)
--- NOTE | 2018-03-05 11:35 | Pharmacy Report ---
Pharmacy Glycemic Short Note 2 - Date of Service March 05, 2018 - Glycemic Short BSG Results (Last 24 hours): 03/04/18 03/04/18 03/04/18 11:28 16:25 20:10 POC Glucose 83 140 H 209 H 03/05/18 03/05/18 07:18 10:57 POC Glucose 227 H 240 H ASSESSMENT: 03/05 * Glycemic control has deteriorated since patient was transitioned to Prednisone 40mg BID - this was despite receiving the same prandial insulin doses but did receive a lesser basal insulin dose yesterday AM * Will increase basal insulin scaled doses only slightly as it is unusual to see BSGs climb when steroid dose is decreased by > 50%. Plus there is always uncertainty as to whether provider will decrease steroid dose - so a scale will provide an element of safety. * Will continue to use yesterday's CF/CR rather than scaling back at this time. * Two IV's mixed in D5W were added today that will likely worsen glycemic control (diltiazem + heparin mixed in D5W) 03/04 * All BSGs less than 180 over the last 24 hrs. * Steroid dose decreased last PM (Solu-Medrol 60mg Q 6 hrs --> Prednisone 40mg BID) - would expect improving insulin sensitivity today * Will trial current CF and CR w/ breakfast today as needs may still be quite high with current steroid dose 03/03 * It appears that this patient requires 70-80 units of insulin per day to reach adequate glycemic control while receiving the current dose of IV Solu-Medrol and tolerating a diet. * Will give 20 units of Lantus this AM as fasting BSG at goal w/ 40 units of Lantus on board. Will continue to use a dosing scale for Lantus this PM should provider reduce steroid dose today. * CF and CR are performing well - will continue the same PLAN FOR INPATIENT GLYCEMIC CONTROL: * Basal insulin - no change * Lantus per scale SQ BID * 0 units if BSG less than 110 * 8 units for BSG 110-120 mg/dL * 14 units for BSG 121-150 mg/dL * 20 units for BSG 151 or greater * Bolus insulin - no change * NovoLog per scale ACHS or Q6hrs while NPO * Goal Range: Low 110 mg/dL - High 140 mg/dL * Correction Factor: 15 mg/dL/unit * Nutritional / Prandial insulin per carb ratio of 1 unit per 6 grams CHO consumed PLAN FOR DISCHARGE: * A1c of 6.3 % meets criteria for pre-diabetes * Patient is currently not on anti-diabetic agents as an outpatient * Recommend lifestyle/dietary modifications * May consider starting metformin 500 mg PO daily with dinner
--- NOTE | 2018-03-05 12:55 | Cardiology Consultation ---
Date of Consultation March 05, 2018 Assessment & Plan (1) Paroxysmal atrial fibrillation with rapid ventricular response: Patient has been slowly recovering from an acute exacerbation of chronic obstructive pulmonary disease. He has severe underlying baseline lung disease. He has now developed recurrent atrial fibrillation with rapid ventricular response. He is treated with oral verapamil at baseline. He is not on anticoagulation prophylaxis for stroke at baseline. I am not certain if this is due to concerns of his past risk for bleeding. He does have a history of having to have fluid removed from his esophagus due to an esophageal stricture in the past. Most recent hemoglobin was stable at 11.2. His [id number] score is at least 2 for age of 68 , and h/o Diabetes. At this time proceed with treatment with heparin and Coumadin for stroke prophylaxis. Diltiazem infusion has been ordered. Do not think we need to order a repeat echo at this time because he had one earlier this admission when he was in sinus rhythm. History of Present Illness Attending Physician: Wero Arita MD History of Present Illness Turner Villareal is a 68-year-old male seen in cardiology consultation per the request of Dr. Wero Arita of the [facility] service for the evaluation of atrial fibrillation with rapid ventricular response. The patient' s primary dimensional integration engineer is Dr. Michael. The patient is a chart history of past paroxysmal atrial fibrillation for which she is on verapamil sustained release 120 mg daily. He is also on atorvastatin for dyslipidemia. Patient is a long- standing history of severe COPD typically is on supplemental oxygen and his mobility is limited to a authorized wheelchair. The patient was admitted for an acute exacerbation of COPD on 02/21/18. He had been having steady progression toward improvement and had tentatively been scheduled to be transferred to [facility] rehab today however developed atrial fibrillation this morning. Review of telemetry today 03/05/18 reveals conversion from sinus rhythm to atrial fibrillation with rapid ventricular response this morning at 3: 02 AM. He then spontaneously converted from atrial fibrillation back to sinus rhythm at 6:44 AM, before converting again to atrial fibrillation 8:38 AM. During my assessment of the patient in room 204 he was in no acute distress and did not have any subjective sensation that his heart rate was racing. His history is otherwise notable for past esophageal stricture for which she has undergone previous EGD. Allergies Allergy/AdvReac Type Severity Reaction Status Date / Time Poultry Allergy Intermediate TURKEY - Verified 02/21/18 02:24 HIVES, RASH, NAUSEA Home Medications Home Medications Medication Instructions Recorded Confirmed Type albuterol sulfate 2.5 mg INHALATION QID PRN 01/28/18 02/21/18 History albuterol sulfate [Ventolin HFA] 2 puff INHALATION QID 01/28/18 02/21/18 History atorvastatin 40 mg PO QAM 01/28/18 02/21/18 History docusate sodium [Colace] 100 mg PO BID 01/28/18 02/21/18 History folic acid 1 mg PO QAM 01/28/18 02/21/18 History furosemide 20 mg PO QAM 01/28/18 02/21/18 History gabapentin 300 mg PO HS 01/28/18 02/21/18 History ipratropium-albuterol [Combivent 2 puff INHALATION QID 01/28/18 02/21/18 History Respimat] levothyroxine 50 mcg PO QAM 01/28/18 02/21/18 History lisinopril 20 mg PO QAM 01/28/18 02/21/18 History thiamine HCl (vitamin B1) 100 mg PO QAM 01/28/18 02/21/18 History verapamil 120 mg PO QAM 01/28/18 02/21/18 History doxycycline monohydrate 100 mg PO BID 02/21/18 02/21/18 History fluticasone-vilanterol [Breo 1 inh INHALATION DAILY 02/21/18 02/21/18 History Ellipta] omeprazole 20 mg PO DAILY 02/21/18 02/21/18 History Patient History Medical History Chronic respiratory failure (Chronic) TIA (transient ischemic attack) (Chronic) "1982" GERD (gastroesophageal reflux disease) (Chronic) COPD (chronic obstructive pulmonary disease) (Chronic) Esophageal stenosis (Chronic) "s/p dilation June 2016" 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" BPH (benign prostatic hyperplasia) (Chronic) Hypothyroidism (Chronic) Depression (Chronic) Surgical History S/P bronchoscopy (Chronic) Social History Current Living Situation: Alone Other Information That Helps Us Care for You: No Feels Safe at Home: No Smoking Status: Current every day smoker Cigarettes per Day: 30-40 Hx Alcohol Use: Yes Alcohol type: beer Alcohol Intake Frequency: 3 or more drinks per day Hx Substance Use: No Beliefs That Will Affect Care: None Communication Ability: Effective Review of Systems 10 point review of systems is reviewed and is negative, the patient describes that his respiratory status has improved over the last week. He denies any chest discomfort, denies any subjective palpitations Physical Exam 2 Vital Signs (Past 24 Hours): Last Vital Signs Temp 36.6 C 03/05/18 11:34 Pulse 152 H 03/05/18 11:34 Resp 22 03/05/18 11:34 BP 128/80 03/05/18 11:34 Pulse Ox 98 03/05/18 11:34 Physical Exam: General: no acute distress and stated age, chronically ill in appearance Eyes: conjunctiva are pink and non-injected, sclera clear Neck: normal jugular venous pulse, no hepatojugular reflux Chest: normal shape and normal respiratory effort Lungs: Mild inspiratory wheezing Cardiac Exam: -Irregular rhythm, tachycardic, no murmurs Abdomen: abdomen soft, non-tender, no abnormal masses and no hepatosplenomegaly Musculoskeletal: no gait disturbance, no weakness Extremities: no edema and no cyanosis Neuro:awake, coversant, follows commands, no focal motor deficits Psych: appropriate affect and insight. Results & Data Diagnostic Findings Chest CTA had previously been performed this admission on 02/21/18, the radiology report describes the following: No evidence of pulmonary embolism Mild superior endplate compression deformity at T12 Severe emphysema Bilateral nephrolithiasis EKG performed today 03/05/18 at 9:14 AM revealed atrial fibrillation with rapid ventricular response of [address] changes, incomplete right bundle branch block morphology noted, compared to the prior tracing dated atrial fibrillation has replaced sinus rhythm. Echocardiogram performed earlier this admission 02/24/18: Left ventricular ejection fraction was normal at 65-70% The right ventricular systolic function was normal. No significant valvular heart disease was noted. No Doppler evidence of pulmonary hypertension noted, per my personal review of the images
[2018-03-05 16:40] LABS: Partial Thromboplastin Ratio 2.1
[2018-03-05 16:56] LABS: Partial Thromboplastin Time 53.8 Seconds (21.0-31.0)
--- NOTE | 2018-03-05 20:04 | Hospitalist Progress Note ---
Date of Service March 05, 2018 Assessment & Plan (1) COPD exacerbation: This is a 58-year-old male who presents with chronic obstructive pulmonary disease exacerbation. Chronic obstructive pulmonary disease exacerbation, Acute exacerbation of COPD, gold level 3, grade C Acute on Chronic respiratory failure with hypoxia and carbon dioxide retention -CTA chest 02/21/18: no PE - repeat CXR noted - Prednisone 40mg BID Nebs [id number] Advair Bilateral Lower extremity edema, likely from Cor Pulmonale -patient could not tolerate ultrasound of lower extremities, D-dimer only 560 CT chest no PE -echocardiogram on 02/24/18 with EF of 65 to 70% - monitor off Lasix as patient has less edema now Acute kidney Injury -resolved Diabetes Mellitus history HbA1c 6.3, not on insulin or other anti-hyperglycemics at home - Pharmacy Glycemic control consult Hyperlipidemia. Continue statin. Paroxysmal atrial fibrillation with rapid ventricular response on verapamil. Patient developed atrial fibrillation overnight, was in sinus in the morning and then went into atrial fibrillation with rapid ventricular response Currently still in atrial fibrillation with heart rate conrtolled by the diltiazem drip also on heparin drip as per cardiology service Hypothyroidism. Continue on Synthroid. Hypertension -on lisinopril and verapamil Ongoing tobacco abuse -Nicotine patch. Deep venous thrombosis prophylaxis, heparin subcutaneously Full Code Disposition pending will need Rehab/SNF upon discharge Subjective Patient developed atrial fibrillation overnight, was in sinus in the morning and then went into atrial fibrillation with rapid ventricular response Currently still in atrial fibrillation with heart rate conrtolled by the diltiazem drip also on heparin drip as per cardiology service patient denies worsening shortness of breath. denies palpitations or chest pain. denies other symptoms Physical Exam 2 Vital Signs (Past 24 Hours): Last Vital Signs Temp 36.6 C 03/05/18 14:53 Pulse 85 03/05/18 19:15 Resp 20 03/05/18 16:00 BP 107/84 03/05/18 19:15 Pulse Ox 98 03/05/18 16:00 Constitutional: WD/WN, vitals as above Eyes: PERRL, conjunctivae normal, anicteric sclerae ENMT: external ear and nose normal, oropharynx normal Neck: trachea midline, no thyromegaly Respiratory: normal respiratory effort (coughing, wheezes), + labored breathing and + audible wheezes Auscultation: lungs clear to auscultation bilaterally Cardiovascular: Rate/Rhythm: regular rhythm and + bradycardic Gastrointestinal (Abdomen): normal bowel sounds, soft, nontender, no hepatosplenomegaly Musculoskeletal: Head/Neck/Chest: normocephalic and head atraumatic Extremities: strength 5/5 throughout (bilateral lower extremity edema with some redness, mild tenderness to palpation) Neurologic: PERRL, EOMI, accommodation nl, no face palsy, no dysarthria CN' s II-XI intact bilaterally
[2018-03-05] MEDS: GABAPENTIN 300 MG CAP PO SCH (21:02)
[2018-03-06] MEDS: HEPARIN SODIUM/DEXTROSE 25,000 UNITS/500 ML BAG IV SCH ×2 (03:27→10:08)
[2018-03-06] MEDS: LEVOTHYROXINE SODIUM 50 MCG TABLET PO SCH (06:11)
[2018-03-06] MEDS: ALBUT/IPRATROP 3MG/0.5MG NEB 3 ML VIAL NEB SCH ×3 (07:04→18:50)
[2018-03-06] MEDS: dilTIAZem HCl 125 MG in DEXTROSE 5% 100 ML IV SCH ×2 (08:25→10:56)
[2018-03-06] MEDS: INSULIN ASPART 100 UNITS/ML 3 ML PEN SC SCH ×4 (08:26→20:56)
[2018-03-06] MEDS: THIAMINE HCL 100 MG TAB PO SCH (08:27)
[2018-03-06] MEDS: FLUTICASONE/SALMETEROL (ADVAIR) 500/50 INH 14 PUFF INH SCH ×2 (08:27→21:24)
[2018-03-06] MEDS: ATORVASTATIN 40 MG TAB PO SCH (08:27)
[2018-03-06] MEDS: LISINOPRIL 20 MG TAB PO SCH (08:27)
[2018-03-06] MEDS: predniSONE 20 MG TAB PO SCH (08:28)
[2018-03-06] MEDS: guaiFENesin 600 MG TABCR PO SCH ×2 (08:28→20:53)
[2018-03-06] MEDS: PANTOprazole 40 MG TAB PO SCH ×2 (08:28→20:55)
[2018-03-06] MEDS: NICOTINE 21 MG/24 HR TDSY TD SCH (08:28)
[2018-03-06] MEDS: FOLIC ACID 1 MG TAB PO SCH (08:28)
[2018-03-06] MEDS: VERAPAMIL HCL 120 MG TABCR PO SCH (08:28)
[2018-03-06] MEDS: INSULIN GLARGINE SOLOSTAR 100 UNITS/ML 3 ML PEN SC SCH ×2 (08:29→20:55)
[2018-03-06] MEDS: DOCUSATE SODIUM 100 MG CAP PO SCH ×2 (08:30→21:25)
[2018-03-06] MEDS: ALPRAZolam 0.25 MG TABLET PO SCH ×2 (08:31→20:53)
[2018-03-06 09:32] LABS: Hematocrit (blood only) 34.1 % (42-52); Hemoglobin 11.3 g/dL (14.0-18.0); Immature Granulocytes # (auto) 0.07 K/uL (0.00-0.02); Immature Granulocytes % (auto) 0.5 %; Lymphocytes # (auto) 0.41 K/uL (1.2-3.4); Mean Corpuscular Hgb Conc 33.1 g/dL (32-36); Mean Corpuscular Volume 101.5 fL (80-100); Mean Platelet Volume 11.2 fL (7.4-10.4); Monocytes # (auto) 0.09 K/uL (0.11-0.59); Monocytes % (auto) 0.7 %; Neutrophils # (auto) 13.11 K/uL (1.4-6.5); Neutrophils % (auto) 95.8 %; Platelet Count 103 K/uL (130-400); RDW Coefficient of Variation 12.7 % (11.5-14.5); RDW Standard Deviation 46.6 fL (36.4-46.3); Red Blood Count 3.36 M/uL (4.7-6.1); White Blood Count 13.68 K/uL (4.8-10.8)
[2018-03-06 09:36] LABS: INR 1.2 (0.9-1.1); Partial Thromboplastin Ratio 3.5
[2018-03-06 09:49] LABS: Partial Thromboplastin Time 90.5 Seconds (21.0-31.0)
--- NOTE | 2018-03-06 10:25 | Cardiology Progress Note ---
Date of Service March 06, 2018 Assessment & Plan (1) Paroxysmal atrial fibrillation with rapid ventricular response: Patient received verapamil sustained release 120 mg this morning. Discontinue long-acting verapamil, start 80 mg p.o. every 6 hours of short acting verapamil to allow for titration. Wean diltiazem infusion as tolerated. I am going to consider adding digoxin for further rate control, but need to obtain repeat chemistry panel first. Stroke prophylaxis: Continue heparin infusion.First dose of Coumadin administered yesterday. Due for repeat today. Subjective Chief complaint: Patient comfortable, resting, no subjective palpitations Subjective:Patient comfortable this morning. Atrial fibrillation in the range of 90-100 bpm Noted on diltiazem infusion 12.5 mg/h. Remains on heparin infusion. Physical Exam 2 Vital Signs (Past 24 Hours): Last Vital Signs Temp 36.5 C 03/06/18 03:09 Pulse 80 03/06/18 07:31 Resp 24 03/06/18 07:31 BP 121/64 03/06/18 07:31 Pulse Ox 94 03/06/18 07:31 Physical Exam: General: no acute distress and stated age Eyes: conjunctiva are pink and non-injected, sclera clear Neck: normal jugular venous pulse, no hepatojugular reflux Chest: normal shape and normal respiratory effort Lungs: Mild apical wheezing Cardiac Exam: - Irregular rhythm, no murmurs, rubs, or gallops, no jugular venous distention Abdomen: abdomen soft, non-tender, no abnormal masses and no hepatosplenomegaly Extremities: no edema and no cyanosis Neuro:awake, coversant, follows commands, no focal motor deficits
[2018-03-06 11:12] LABS: Albumin Level 2.6 gm/dl (3.4-5.0); BUN Creatinine Ratio 29.2 (10-20); Calcium 8.6 mg/dl (8.5-10.1); Est GFR (African American) 78.9; Est GFR (Non-African American) 68.1; Potassium 4.7 mmol/L (3.5-5.1)
[2018-03-06 11:15] LABS: Albumin Globulin Ratio 1.2 (0.9-2); Bilirubin,Total 0.5 mg/dl (0.2-1); Globulin 2.2 gm/dl (2.5-4.0); Total Protein 4.8 gm/dl (6.4-8.2)
[2018-03-06] MEDS ORDERED: VERAPAMIL HCL 40 MG TAB PO SCH (12:00)
--- NOTE | 2018-03-06 12:26 | Pharmacy Report ---
Pharmacy Glycemic Short Note 2 - Date of Service March 06, 2018 - Glycemic Short BSG Results (Last 24 hours): 03/05/18 03/05/18 03/06/18 16:08 20:14 07:28 Glucose POC Glucose 107 H 159 H 143 H 03/06/18 03/06/18 10:23 11:11 Glucose 236 H POC Glucose 200 H ASSESSMENT: 03/06 * Glycemic control improved the second half of the day yesterday * Insulin sensitivity really has not changed greatly since transitioning to Prednisone 40mg BID * Will continue same orders for next 24 hrs as Prednisone continues at same dose 03/05 * Glycemic control has deteriorated since patient was transitioned to Prednisone 40mg BID - this was despite receiving the same prandial insulin doses but did receive a lesser basal insulin dose yesterday AM * Will increase basal insulin scaled doses only slightly as it is unusual to see BSGs climb when steroid dose is decreased by > 50%. Plus there is always uncertainty as to whether provider will decrease steroid dose - so a scale will provide an element of safety. * Will continue to use yesterday's CF/CR rather than scaling back at this time. * Two IV's mixed in D5W were added today that will likely worsen glycemic control (diltiazem + heparin mixed in D5W) 03/04 * All BSGs less than 180 over the last 24 hrs. * Steroid dose decreased last PM (Solu-Medrol 60mg Q 6 hrs --> Prednisone 40mg BID) - would expect improving insulin sensitivity today * Will trial current CF and CR w/ breakfast today as needs may still be quite high with current steroid dose PLAN FOR INPATIENT GLYCEMIC CONTROL: * Basal insulin - no change * Lantus per scale SQ BID * 0 units if BSG less than 110 * 8 units for BSG 110-120 mg/dL * 14 units for BSG 121-150 mg/dL * 20 units for BSG 151 or greater * Bolus insulin - no change * NovoLog per scale ACHS or Q6hrs while NPO * Goal Range: Low 110 mg/dL - High 140 mg/dL * Correction Factor: 15 mg/dL/unit * Nutritional / Prandial insulin per carb ratio of 1 unit per 6 grams CHO consumed PLAN FOR DISCHARGE: * A1c of 6.3 % meets criteria for pre-diabetes * Patient is currently not on anti-diabetic agents as an outpatient * Recommend lifestyle/dietary modifications * May consider starting metformin 500 mg PO daily with dinner
[2018-03-06 16:00] LABS: Partial Thromboplastin Ratio 2.5
[2018-03-06 16:04] LABS: Partial Thromboplastin Time 64.3 Seconds (21.0-31.0)
[2018-03-06] MEDS: WARFARIN SOD 5 MG TAB PO SCH (16:58)
--- NOTE | 2018-03-06 17:19 | Hospitalist Progress Note ---
Date of Service March 06, 2018 Assessment & Plan (1) COPD exacerbation: This is a 58-year-old male who presents with chronic obstructive pulmonary disease exacerbation. Chronic obstructive pulmonary disease exacerbation, Acute exacerbation of COPD, gold level 3, grade C Acute on Chronic respiratory failure with hypoxia and carbon dioxide retention -CTA chest 02/21/18: no PE - Prednisone 40mg BID to be changed to 30 mg BID and taper Nebs q12 hours Advair Bilateral Lower extremity edema, likely from Cor Pulmonale -patient could not tolerate ultrasound of lower extremities, D-dimer only 560 CT chest no PE -echocardiogram on 02/24/18 with EF of 65 to 70% - monitor off Lasix as patient has less edema now Acute kidney Injury -resolved Diabetes Mellitus history HbA1c 6.3, not on insulin or other anti-hyperglycemics at home - Pharmacy Glycemic control consult Hyperlipidemia. Continue statin. Paroxysmal atrial fibrillation with rapid ventricular response on verapamil. Patient developed atrial fibrillation with rapid ventricular response 03/06/18 still in atrial fibrillation. heart rate is controlled and plans to continue to downtitrate the cardiazem drip while the oral medications have been adjusted Patient received verapamil sustained release 120 mg this morning. Discontinue long-acting verapamil, start 80 mg p.o. every 6 hours of short acting verapamil to allow for titration. continue heparin drip and coumadin Hypothyroidism. Continue on Synthroid. Hypertension -on lisinopril and verapamil Ongoing tobacco abuse -Nicotine patch. Deep venous thrombosis prophylaxis, heparin drip and coumadin INR is 1.2 Full Code Disposition will need Rehab/SNF upon discharge Subjective patient denies worsening shortness of breath. denies palpitations or chest pain. denies other symptoms still in atrial fibrillation. heart rate is controlled and plans to continue to downtitrate the cardiazem drip while the oral medications have been adjusted Physical Exam 2 Vital Signs (Past 24 Hours): Last Vital Signs Temp 36.7 C 03/06/18 14:48 Pulse 57 L 03/06/18 14:48 Resp 21 03/06/18 14:48 BP 107/55 L 03/06/18 14:48 Pulse Ox 30 L 03/06/18 14:48 Constitutional: WD/WN, vitals as above Eyes: PERRL, conjunctivae normal, anicteric sclerae ENMT: external ear and nose normal, oropharynx normal Neck: trachea midline, no thyromegaly Respiratory: normal respiratory effort, lungs clear to auscultation Cardiovascular: Rate/Rhythm: regular rate (atrial fibrillation) Gastrointestinal (Abdomen): normal bowel sounds, soft, nontender, no hepatosplenomegaly Musculoskeletal: Head/Neck/Chest: normocephalic and head atraumatic Extremities: strength 5/5 throughout (bilateral lower extremity edema with some redness, mild tenderness to palpation) Neurologic: PERRL, EOMI, accommodation nl, no face palsy, no dysarthria CN' s II-XI intact bilaterally
[2018-03-06] MEDS: VERAPAMIL HCL 40 MG TAB PO SCH ×2 (17:58→23:50)
[2018-03-06] MEDS: predniSONE 10 MG TABLET PO SCH (20:53)
[2018-03-06] MEDS: GABAPENTIN 300 MG CAP PO SCH (21:25)
[2018-03-07] MEDS: HEPARIN SODIUM/DEXTROSE 25,000 UNITS/500 ML BAG IV SCH (03:09)
[2018-03-07] MEDS: dilTIAZem HCl 125 MG in DEXTROSE 5% 100 ML IV SCH (03:41)
[2018-03-07] MEDS: LEVOTHYROXINE SODIUM 50 MCG TABLET PO SCH (05:43)
[2018-03-07] MEDS: VERAPAMIL HCL 40 MG TAB PO SCH ×3 (05:44→16:54)
[2018-03-07 05:52] LABS: Hematocrit (blood only) 33.2 % (42-52); Immature Granulocytes # (auto) 0.08 K/uL (0.00-0.02); Immature Granulocytes % (auto) 0.4 %; Lymphocytes # (auto) 0.52 K/uL (1.2-3.4); Lymphocytes % (auto) 2.9 %; Mean Corpuscular Hgb Conc 33.1 g/dL (32-36); Mean Corpuscular Volume 100.3 fL (80-100); Mean Platelet Volume 11.4 fL (7.4-10.4); Monocytes # (auto) 0.31 K/uL (0.11-0.59); Monocytes % (auto) 1.7 %; Neutrophils # (auto) 16.95 K/uL (1.4-6.5); Platelet Count 107 K/uL (130-400); RDW Coefficient of Variation 12.8 % (11.5-14.5); RDW Standard Deviation 46.7 fL (36.4-46.3); Red Blood Count 3.31 M/uL (4.7-6.1); White Blood Count 17.86 K/uL (4.8-10.8)
[2018-03-07 06:16] LABS: INR 1.5 (0.9-1.1); Partial Thromboplastin Ratio 2.6; Prothrombin Time 15.2 Seconds (9.0-12.0)
[2018-03-07 06:24] LABS: BUN Creatinine Ratio 30.6 (10-20); Calcium 8.2 mg/dl (8.5-10.1); Creatinine Clr Calc Pharmacy 69.5 ml/min; Est GFR (African American) 82.5; Est GFR (Non-African American) 71.1; Potassium 4.7 mmol/L (3.5-5.1)
[2018-03-07 06:27] LABS: Partial Thromboplastin Time 68.5 Seconds (21.0-31.0)
[2018-03-07] MEDS: ALBUT/IPRATROP 3MG/0.5MG NEB 3 ML VIAL NEB SCH (07:07)
[2018-03-07] MEDS: PANTOprazole 40 MG TAB PO SCH ×2 (08:46→20:50)
[2018-03-07] MEDS: guaiFENesin 600 MG TABCR PO SCH ×2 (08:46→20:50)
[2018-03-07] MEDS: FLUTICASONE/SALMETEROL (ADVAIR) 500/50 INH 14 PUFF INH SCH ×2 (08:46→20:50)
[2018-03-07] MEDS: DOCUSATE SODIUM 100 MG CAP PO SCH ×2 (08:47→20:53)
[2018-03-07] MEDS: FOLIC ACID 1 MG TAB PO SCH (08:47)
[2018-03-07] MEDS: ATORVASTATIN 40 MG TAB PO SCH (08:48)
[2018-03-07] MEDS: THIAMINE HCL 100 MG TAB PO SCH (08:48)
[2018-03-07] MEDS: LISINOPRIL 20 MG TAB PO SCH (08:48)
[2018-03-07] MEDS: NICOTINE 21 MG/24 HR TDSY TD SCH (08:49)
[2018-03-07] MEDS: ALPRAZolam 0.25 MG TABLET PO SCH ×2 (08:49→20:50)
[2018-03-07] MEDS: predniSONE 10 MG TABLET PO SCH ×2 (08:50→20:50)
[2018-03-07] MEDS: INSULIN ASPART 100 UNITS/ML 3 ML PEN SC SCH ×4 (08:52→20:51)
[2018-03-07] MEDS: INSULIN GLARGINE SOLOSTAR 100 UNITS/ML 3 ML PEN SC SCH ×2 (08:53→20:51)
--- NOTE | 2018-03-07 09:56 | Cardiology Progress Note ---
Date of Service March 07, 2018 Assessment & Plan (1) Paroxysmal atrial fibrillation with rapid ventricular response: Pt now in SR. DC short acting verapamil this evening. Resume long acting verapamil tomorrow am, at 180 mg instead of his prior to hospital dose of 120 mg daily. Debated increasing verapamil to 240 mg daily, however, PT is in SR at 60 bpm, and was concerned about inducing bradycardia. If on further monitoring , it appears 240 mg dose would be tolerated, this may be a good consideration. Digoxin not necessary now that he is in SR. Avoiding beta blockers, sotalol, and amiodarone due to lung disease. Likely poor Tikosyn candidated due to need for future antibiotics for his lung disease. Stroke prevention: continue heparin infusion, to goal INR of at least 2. Receiving coumadin 5 mg. Repeat INR in AM. Subjective CC: follow up atrial fibrillation Subjective: Pt feeling well. Converted from AF to SR on 03/06/18 at 23:09. No pauses. EKG revealed SR, baseline artifact, frequent PACs. The frequent atrial ectopy has since improved. Physical Exam 2 Vital Signs (Past 24 Hours): Last Vital Signs Temp 36.7 C 03/07/18 07:04 Pulse 63 03/07/18 07:07 Resp 16 03/07/18 07:07 BP 100/71 03/07/18 07:04 Pulse Ox 96 03/07/18 07:07 Constitutional: + ill appearing (chronically ill in appearance); no acute distress Respiratory: + audible wheezes (mild apical wheezing); does not use accessory muscles Auscultation: no diminished lung sounds and no crackles Cardiovascular: Rate/Rhythm: regular rate and regular rhythm Heart Sounds: no murmur Extremities: + edema (trace LE edema) Skin: no rashes, warm and dry Neurologic: no focal deficits Results & Data Laboratory Results INR =1.5
[2018-03-07] MEDS: FUROSEMIDE 20 MG TAB PO SCH (10:52)
--- NOTE | 2018-03-07 14:38 | Pharmacy Report ---
Pharmacy Glycemic Short Note 2 - Date of Service March 07, 2018 - Glycemic Short BSG Results (Last 24 hours): 03/06/18 03/06/18 03/07/18 15:56 20:48 05:30 Glucose 98 POC Glucose 178 H 270 H 03/07/18 11:39 Glucose POC Glucose 105 H ASSESSMENT: 03/07 * Steroids tapered from 40 to 30 mg po BID * AM fasting BSG below goal at 98 mg/dL - will decrease Lantus * Anticipated increased sensitivity in prandial insulin adminsitered - will loosen Novolog parameters 03/06 * Glycemic control improved the second half of the day yesterday * Insulin sensitivity really has not changed greatly since transitioning to Prednisone 40mg BID * Will continue same orders for next 24 hrs as Prednisone continues at same dose PLAN FOR INPATIENT GLYCEMIC CONTROL: * Basal insulin Lantus per scale SQ BID * 8 units for BSG less than 110 mg/dL * 14 units for BSG 110 mg/dL or greater * Bolus insulin * NovoLog per scale ACHS or Q6hrs while NPO * Goal Range: Low 110 mg/dL - High 140 mg/dL * Correction Factor: 20 mg/dL/unit * Nutritional / Prandial insulin per carb ratio of 1 unit per 7 grams CHO consumed PLAN FOR DISCHARGE: * A1c of 6.3 % meets criteria for pre-diabetes * Patient is currently not on anti-diabetic agents as an outpatient * Recommend lifestyle/dietary modifications * May consider starting metformin 500 mg PO daily with dinner
--- NOTE | 2018-03-07 16:42 | Hospitalist Progress Note ---
Date of Service March 07, 2018 Assessment & Plan (1) COPD exacerbation: This is a 58-year-old male who presents with chronic obstructive pulmonary disease exacerbation. Chronic obstructive pulmonary disease exacerbation, Acute exacerbation of COPD, gold level 3, grade C Acute on Chronic respiratory failure with hypoxia and carbon dioxide retention -CTA chest 02/21/18: no PE -had been on high dose steroids, currently on Prednisone since 03/06/18 as 30 mg BID (taper by 10 mg every 4 days) -Nebs as prn -Advair, continue Bilateral Lower extremity edema, likely from Cor Pulmonale -patient could not tolerate ultrasound of lower extremities, D-dimer only 560 at beginning of admission, CT chest no PE -echocardiogram on 02/24/18 with EF of 65 to 70% - resumed Lasix as patient received additional IV fluids on this admission from medications which has worsened leg edema Acute kidney Injury -resolved Diabetes Mellitus history HbA1c 6.3, not on insulin or other anti-hyperglycemics at home - Pharmacy Glycemic control consult Hyperlipidemia. Continue statin. Paroxysmal atrial fibrillation with rapid ventricular response Patient developed atrial fibrillation with rapid ventricular response 03/05/18 and patient has been on anticoagulation the IV calcium channel john had been transitioned to oral calciul channel john went back to sinus rhythm on night of 03/06/18 DC short acting verapamil this evening. Resume long acting verapamil tomorrow am, at 180 mg instead of his prior to hospital dose of 120 mg daily Hypothyroidism. Continue on Synthroid. Hypertension -on lisinopril and calcium channel blockers Ongoing tobacco abuse -Nicotine patch. Deep venous thrombosis prophylaxis, heparin drip and coumadin INR is 1.5 Full Code Disposition will need Rehab/SNF upon discharge Physical Exam 2 Vital Signs (Past 24 Hours): Last Vital Signs Temp 36.4 C L 03/07/18 15:00 Pulse 71 03/07/18 15:00 Resp 19 03/07/18 15:00 BP 116/73 03/07/18 15:00 Pulse Ox 99 03/07/18 15:00 Constitutional: WD/WN, vitals as above Eyes: PERRL, conjunctivae normal, anicteric sclerae ENMT: external ear and nose normal, oropharynx normal Neck: trachea midline, no thyromegaly Respiratory: normal respiratory effort, lungs clear to auscultation Auscultation: lungs clear to auscultation bilaterally Cardiovascular: Rate/Rhythm: regular rate (atrial fibrillation), regular rhythm and + bradycardic Gastrointestinal (Abdomen): normal bowel sounds, soft, nontender, no hepatosplenomegaly Musculoskeletal: Head/Neck/Chest: normocephalic and head atraumatic Extremities: strength 5/5 throughout (bilateral lower extremity edema) Neurologic: PERRL, EOMI, accommodation nl, no face palsy, no dysarthria CN' s II-XI intact bilaterally
[2018-03-07] MEDS: WARFARIN SOD 5 MG TAB PO SCH (16:50)
[2018-03-07] MEDS: GABAPENTIN 300 MG CAP PO SCH (20:50)
[2018-03-07] MEDS: ALBUT/IPRATROP 3MG/0.5MG NEB 3 ML VIAL NEB PRN (22:10)
[2018-03-08] MEDS: HEPARIN SODIUM/DEXTROSE 25,000 UNITS/500 ML BAG IV SCH (01:52)
[2018-03-08] MEDS: LEVOTHYROXINE SODIUM 50 MCG TABLET PO SCH (05:45)
[2018-03-08 06:17] LABS: INR 2.3 (0.9-1.1); Partial Thromboplastin Ratio 3.9; Prothrombin Time 22.4 Seconds (9.0-12.0)
[2018-03-08 06:28] LABS: Partial Thromboplastin Time 101.9 Seconds (21.0-31.0)
[2018-03-08] MEDS: predniSONE 10 MG TABLET PO SCH ×2 (07:35→20:47)
[2018-03-08] MEDS: VERAPAMIL HCL 180 MG TABCR PO SCH (07:35)
[2018-03-08] MEDS: LISINOPRIL 20 MG TAB PO SCH (07:36)
[2018-03-08] MEDS: guaiFENesin 600 MG TABCR PO SCH ×2 (07:36→20:47)
[2018-03-08] MEDS: PANTOprazole 40 MG TAB PO SCH ×2 (07:36→20:47)
[2018-03-08] MEDS: FOLIC ACID 1 MG TAB PO SCH (07:37)
[2018-03-08] MEDS: THIAMINE HCL 100 MG TAB PO SCH (07:38)
[2018-03-08] MEDS: INSULIN ASPART 100 UNITS/ML 3 ML PEN SC SCH ×4 (07:38→20:48)
[2018-03-08] MEDS: INSULIN GLARGINE SOLOSTAR 100 UNITS/ML 3 ML PEN SC SCH (07:39)
[2018-03-08] MEDS: FUROSEMIDE 20 MG TAB PO SCH (07:39)
[2018-03-08] MEDS: ATORVASTATIN 40 MG TAB PO SCH (07:39)
[2018-03-08] MEDS: NICOTINE 21 MG/24 HR TDSY TD SCH (07:40)
[2018-03-08] MEDS: FLUTICASONE/SALMETEROL (ADVAIR) 500/50 INH 14 PUFF INH SCH ×2 (07:40→20:47)
--- NOTE | 2018-03-08 08:02 | Pharmacy Report ---
Pharmacy Glycemic Short Note 2 - Date of Service March 08, 2018 - Glycemic Short BSG Results (Last 24 hours): 03/07/18 03/07/18 03/07/18 11:39 16:25 20:46 POC Glucose 105 H 141 H 166 H 03/08/18 07:36 POC Glucose 234 H ASSESSMENT: * Stressors stable. Prednisone continues at 30 mg po BID * BSG's ranged 98-166 mg/dL yesterday. Slight trend up in BSG's over the course of the day noted. However, since all BSG's <170 mg/dL, will not adjust regimen for now. Patient may require tighter CHO ratio (assuming stable steroid dose) * AM fasting BSG elevated to 234 mg/dL this AM - spoke w RN. Patient had already started eating breakfast when BSG obtained today. Therefore will not make adjustments based on this number as it is not the patient's fasting BSG. However, will decrease Lantus scale tonight as patient received higher dose of Lantus this AM based on a non-fasting BSG which may not have been needed based on true fasting BSG. PLAN FOR INPATIENT GLYCEMIC CONTROL: * Basal insulin Lantus per scale SQ BID (for tonight only) * 5 units for BSG less than 110 mg/dL * 10 units for BSG 110 mg/dL or greater * Basal insulin Lantus per scale SQ BID (starting tomorrow AM and ongoing) * 8 units for BSG less than 110 mg/dL * 14 units for BSG 110 mg/dL or greater * Bolus insulin * NovoLog per scale ACHS or Q6hrs while NPO * Goal Range: Low 110 mg/dL - High 140 mg/dL * Correction Factor: 20 mg/dL/unit * Nutritional / Prandial insulin per carb ratio of 1 unit per 7 grams CHO consumed PLAN FOR DISCHARGE: * A1c of 6.3 % meets criteria for pre-diabetes * Patient is currently not on anti-diabetic agents as an outpatient * Recommend lifestyle/dietary modifications * May consider starting metformin 500 mg PO daily with dinner
[2018-03-08] MEDS: ALPRAZolam 0.25 MG TABLET PO SCH ×2 (08:06→20:47)
[2018-03-08] MEDS: DOCUSATE SODIUM 100 MG CAP PO SCH ×2 (08:06→20:47)
--- NOTE | 2018-03-08 16:00 | Hospitalist Progress Note ---
Date of Service March 08, 2018 Assessment & Plan (1) COPD exacerbation: This is a 58-year-old male who presents with chronic obstructive pulmonary disease exacerbation. Chronic obstructive pulmonary disease exacerbation, Acute exacerbation of COPD, gold level 3, grade C Acute on Chronic respiratory failure with hypoxia and carbon dioxide retention -CTA chest 02/21/18: no PE -had been on high dose steroids, currently on Prednisone since 03/06/18 as 30 mg BID (taper by 10 mg every 4 days) -Nebs as prn -Advair, continue Bilateral Lower extremity edema, likely from Cor Pulmonale -patient could not tolerate ultrasound of lower extremities, D-dimer only 560 at beginning of admission, CT chest no PE -echocardiogram on 02/24/18 with EF of 65 to 70% - on Lasix for leg edema Acute kidney Injury -resolved Diabetes Mellitus history HbA1c 6.3, not on insulin or other anti-hyperglycemics at home - Pharmacy Glycemic control consult Hyperlipidemia. Continue statin. Paroxysmal atrial fibrillation with rapid ventricular response Patient developed atrial fibrillation with rapid ventricular response 03/05/18 and patient has been on anticoagulation the IV calcium channel john had been transitioned to oral calcium channel john went back to sinus rhythm on night of 03/06/18 03/08/18 INR is at goal of 2.3 and heparin drip discontinued continue long acting verapamil as 180 mg daily Hypothyroidism. Continue on Synthroid. Hypertension -on lisinopril and calcium channel blockers Ongoing tobacco abuse -Nicotine patch. Deep venous thrombosis prophylaxis: coumadin INR is 2.3 Full Code Disposition INR is at goal of 2.3 on 03/08/18 however as per case management there is no bed available at the [facility] [place] today Subjective INR is at goal of 2.3 on 03/08/18 however as per case management there is no bed available at the [facility] [place] today heparin drip discontinued Patient denies acute shortness of breath. denies chest pain. denies palpitations. denies abdominal pain. denies vomiting Physical Exam 2 Vital Signs (Past 24 Hours): Last Vital Signs Temp 36.7 C 03/08/18 15:44 Pulse 71 03/08/18 15:44 Resp 20 03/08/18 15:44 BP 132/74 03/08/18 15:44 Pulse Ox 99 03/08/18 15:44 Constitutional: WD/WN, vitals as above Eyes: PERRL, conjunctivae normal, anicteric sclerae ENMT: external ear and nose normal, oropharynx normal Neck: trachea midline, no thyromegaly Respiratory: normal respiratory effort, lungs clear to auscultation normal respiratory effort (coughing, wheezes), + labored breathing and + audible wheezes Auscultation: lungs clear to auscultation bilaterally Cardiovascular: Rate/Rhythm: regular rate (atrial fibrillation), regular rhythm and + bradycardic Gastrointestinal (Abdomen): normal bowel sounds, soft, nontender, no hepatosplenomegaly Musculoskeletal: Head/Neck/Chest: normocephalic and head atraumatic Extremities: strength 5/5 throughout (bilateral lower extremity edema) Neurologic: PERRL, EOMI, accommodation nl, no face palsy, no dysarthria CN' s II-XI intact bilaterally
[2018-03-08] MEDS: WARFARIN SOD 5 MG TAB PO SCH (16:47)
[2018-03-08] MEDS: ALBUT/IPRATROP 3MG/0.5MG NEB 3 ML VIAL NEB PRN (20:24)
[2018-03-08] MEDS: GABAPENTIN 300 MG CAP PO SCH (20:47)
[2018-03-08] MEDS ORDERED: INSULIN GLARGINE SOLOSTAR 100 UNITS/ML 3 ML PEN SC SCH (21:00)
[2018-03-08] MEDS ORDERED: VERAPAMIL HCL 40 MG TAB PO STA (21:27)
[2018-03-08] MEDS ORDERED: METOPROLOL TARTRATE 1 MG/ML VIAL IV PRN (21:28)
[2018-03-09] MEDS: LEVOTHYROXINE SODIUM 50 MCG TABLET PO SCH (05:40)
[2018-03-09 06:24] LABS: INR 2.7 (0.9-1.1); Prothrombin Time 25.4 Seconds (9.0-12.0)
[2018-03-09] MEDS: PANTOprazole 40 MG TAB PO SCH ×2 (07:36→20:32)
[2018-03-09] MEDS: predniSONE 10 MG TABLET PO SCH (07:36)
[2018-03-09] MEDS: ATORVASTATIN 40 MG TAB PO SCH (07:36)
[2018-03-09] MEDS: guaiFENesin 600 MG TABCR PO SCH ×2 (07:37→20:32)
[2018-03-09] MEDS: NICOTINE 21 MG/24 HR TDSY TD SCH (07:37)
[2018-03-09] MEDS: FLUTICASONE/SALMETEROL (ADVAIR) 500/50 INH 14 PUFF INH SCH ×2 (07:37→20:32)
[2018-03-09] MEDS: VERAPAMIL HCL 180 MG TABCR PO SCH (07:38)
[2018-03-09] MEDS: LISINOPRIL 20 MG TAB PO SCH (07:38)
[2018-03-09] MEDS: FOLIC ACID 1 MG TAB PO SCH (07:38)
[2018-03-09] MEDS: THIAMINE HCL 100 MG TAB PO SCH (07:38)
[2018-03-09] MEDS: FUROSEMIDE 20 MG TAB PO SCH (07:38)
[2018-03-09] MEDS: DOCUSATE SODIUM 100 MG CAP PO SCH ×2 (07:39→20:28)
[2018-03-09] MEDS: INSULIN GLARGINE SOLOSTAR 100 UNITS/ML 3 ML PEN SC SCH ×2 (07:39→20:33)
[2018-03-09] MEDS: INSULIN ASPART 100 UNITS/ML 3 ML PEN SC SCH ×4 (07:41→20:33)
--- NOTE | 2018-03-09 08:42 | Pharmacy Report ---
Pharmacy Glycemic Short Note 2 - Date of Service March 09, 2018 - Glycemic Short BSG Results (Last 24 hours): 03/08/18 03/08/18 03/08/18 11:23 16:19 20:18 POC Glucose 141 H 255 H 163 H 03/09/18 07:11 POC Glucose 131 H ASSESSMENT: * Stressors stable. Prednisone continues at 30 mg po BID * BSG's ranged 141-255 mg/dL yesterday - better control desired. * As anticipated, AM BSG yesterday elevated to 234 mg/dL was not the patient's fasting BSG, based on noted CHO consumption when BSG was obtained and supported by significant difference from AM fasting today with minimal change to Lantus dose * Yesterday, despite the AM BSG not being a fasting BSG, it was still corrected as such and lunch BSG was the best of the day. Furthermore, significant increase in BSG from lunch to dinner noted after significant CHO intake of 62 g at lunch. Also, patient did not eat dinner and BSG trended down significantly at bedtime. All of this suggests insufficient CHO ratio/coverage. Will tighten today. * AM fasting BSG 131 mg/dL - no changes to Lantus needed PLAN FOR INPATIENT GLYCEMIC CONTROL: * Basal insulin Lantus per scale SQ BID * 8 units for BSG less than 110 mg/dL * 14 units for BSG 110 mg/dL or greater * Bolus insulin * NovoLog per scale ACHS or Q6hrs while NPO * Goal Range: Low 110 mg/dL - High 140 mg/dL * Correction Factor: 20 mg/dL/unit * Nutritional / Prandial insulin per carb ratio of 1 unit per 6 grams CHO consumed PLAN FOR DISCHARGE: * A1c of 6.3 % meets criteria for pre-diabetes * Patient is currently not on anti-diabetic agents as an outpatient * Recommend lifestyle/dietary modifications * May consider starting metformin 500 mg PO daily with dinner
[2018-03-09] MEDS: ALPRAZolam 0.25 MG TABLET PO SCH ×2 (09:30→20:31)
[2018-03-09] MEDS ORDERED: WARFARIN SOD 4 MG TAB PO SCH (16:00)
--- NOTE | 2018-03-09 19:32 | Hospitalist Progress Note ---
Date of Service March 09, 2018 Assessment & Plan (1) COPD exacerbation: This is a 58-year-old male who presents with chronic obstructive pulmonary disease exacerbation. Chronic obstructive pulmonary disease exacerbation, Acute exacerbation of COPD, gold level 3, grade C Acute on Chronic respiratory failure with hypoxia and carbon dioxide retention -CTA chest 02/21/18: no PE -had been on high dose steroids, currently on Prednisone. prednisone as 20 mg BID and taper by 10 mg every 4 days for the COPD -Nebs as prn -Advair, continue Bilateral Lower extremity edema, likely from Cor Pulmonale -patient could not tolerate ultrasound of lower extremities, D-dimer only 560 at beginning of admission, CT chest no PE -echocardiogram on 02/24/18 with EF of 65 to 70% - on Lasix for leg edema Acute kidney Injury -resolved Diabetes Mellitus history HbA1c 6.3, not on insulin or other anti-hyperglycemics at home - Pharmacy Glycemic control consult Hyperlipidemia. Continue statin. Paroxysmal atrial fibrillation with rapid ventricular response Patient developed atrial fibrillation with rapid ventricular response 03/05/18 and patient has been on anticoagulation the IV calcium channel john had been transitioned to oral calcium channel john went back to sinus rhythm on night of 03/06/18 03/08/18 INR is at goal of 2.3 and heparin drip discontinued while on long acting verapamil as 180 mg daily Patient's heart rhythm went from sinus to atrial fibrillation around 7:30 PM on 03/08/18 and with subsequent mild rapid ventricular response heart rates stable by noon 03/09/18; Medical doctor have increased the verapamil from 180 mg daily to 240 mg daily for tomorrow as per discussion from cardiology service. Hypothyroidism. Continue on Synthroid. Hypertension -on lisinopril and calcium channel blockers Ongoing tobacco abuse -Nicotine patch. Deep venous thrombosis prophylaxis: coumadin to be 4 mg daily INR is 2.7 Full Code Subjective Patient's heart rhythm went from sinus to atrial fibrillation around 7:30 PM on 03/08/18 and with subsequent mild rapid ventricular response. Although this improved by noon time today in terms of rate control, casework supervisor reported that [facility] physical rehabilitation did not deem patient to be ready for a bed for physical therapy given recent tachycardia Patient became very upset of recent health set back and not being able to go to physical rehabilitation center today. He expressed frustration as if hospital medical team is causing him to stay in hospital longer than he should be Medical doctor have increased the verapamil from 180 mg daily to 240 mg daily for tomorrow as per discussion from cardiology service. Patient denies acute shortness of breath or wheezing. denies pain. denies lightheadedness Physical Exam 2 Vital Signs (Past 24 Hours): Last Vital Signs Temp 36.8 C 03/09/18 15:10 Pulse 82 03/09/18 15:10 Resp 27 H 03/09/18 15:10 BP 120/56 L 03/09/18 15:10 Pulse Ox 97 03/09/18 15:10 Constitutional: WD/WN, vitals as above Eyes: PERRL, conjunctivae normal, anicteric sclerae ENMT: external ear and nose normal, oropharynx normal Neck: trachea midline, no thyromegaly Respiratory: normal respiratory effort, lungs clear to auscultation Cardiovascular: Rate/Rhythm: regular rate Gastrointestinal (Abdomen): normal bowel sounds, soft, nontender, no hepatosplenomegaly Musculoskeletal: Head/Neck/Chest: normocephalic and head atraumatic Extremities: strength 5/5 throughout (bilateral lower extremity edema) Neurologic: PERRL, EOMI, accommodation nl, no face palsy, no dysarthria CN' s II-XI intact bilaterally
[2018-03-09] MEDS ORDERED: COUGH DROP (SUGAR FREE) LOZ 24 LOZ/1 BOX BUCCAL STA (20:23)
[2018-03-09] MEDS: predniSONE 20 MG TAB PO SCH (20:31)
[2018-03-09] MEDS: GABAPENTIN 300 MG CAP PO SCH (20:32)
[2018-03-09] MEDS ORDERED: dilTIAZem HCl 60 MG TAB PO SCH (21:00)
[2018-03-10] MEDS: LEVOTHYROXINE SODIUM 50 MCG TABLET PO SCH (06:20)
[2018-03-10 08:09] LABS: INR 3.4 (0.9-1.1); Prothrombin Time 32.1 Seconds (9.0-12.0)
[2018-03-10] MEDS: FLUTICASONE/SALMETEROL (ADVAIR) 500/50 INH 14 PUFF INH SCH (08:22)
[2018-03-10] MEDS: LISINOPRIL 20 MG TAB PO SCH (08:23)
[2018-03-10] MEDS: DOCUSATE SODIUM 100 MG CAP PO SCH (08:23)
[2018-03-10] MEDS: FUROSEMIDE 20 MG TAB PO SCH (08:24)
[2018-03-10] MEDS: predniSONE 20 MG TAB PO SCH (08:24)
[2018-03-10] MEDS: THIAMINE HCL 100 MG TAB PO SCH (08:24)
[2018-03-10] MEDS: FOLIC ACID 1 MG TAB PO SCH (08:24)
[2018-03-10] MEDS: ATORVASTATIN 40 MG TAB PO SCH (08:24)
[2018-03-10] MEDS: PANTOprazole 40 MG TAB PO SCH (08:25)
[2018-03-10] MEDS: INSULIN GLARGINE SOLOSTAR 100 UNITS/ML 3 ML PEN SC SCH (08:25)
[2018-03-10] MEDS: guaiFENesin 600 MG TABCR PO SCH (08:25)
[2018-03-10] MEDS: INSULIN ASPART 100 UNITS/ML 3 ML PEN SC SCH ×2 (08:27→12:42)
[2018-03-10] MEDS: NICOTINE 21 MG/24 HR TDSY TD SCH (08:27)
[2018-03-10] MEDS: ALPRAZolam 0.25 MG TABLET PO SCH (08:31)
[2018-03-10] MEDS: ALBUT/IPRATROP 3MG/0.5MG NEB 3 ML VIAL NEB PRN ×2 (08:43→13:53)
[2018-03-10] MEDS ORDERED: VERAPAMIL HCL 240 MG TABCR PO SCH (09:00)
--- NOTE | 2018-03-10 12:21 | Pharmacy Report ---
Pharmacy Glycemic Short Note 2 - Date of Service March 10, 2018 - Glycemic Short BSG Results (Last 24 hours): 03/09/18 03/09/18 03/10/18 16:00 20:25 07:08 POC Glucose 98 216 H 137 H 03/10/18 03/10/18 11:20 11:20 POC Glucose 50 L* 72 ASSESSMENT: 03/10 * Prednisone decreased to 20 mg BID * BSGs ranged from 98-216 yesterday * Fasting AM today 137, lantus was decreased to 12 units from previous sliding scale which would have provided 14 units given lower dinner BSG (uncertain of BSG at lunch yesterday) * Hypoglycemic today at lunch- will loosen carb ratio/correction factor and decrease lantus for tonight- will only receive for BSGs >180 03/09 * Stressors stable. Prednisone continues at 30 mg po BID * BSG's ranged 141-255 mg/dL yesterday - better control desired. * As anticipated, AM BSG yesterday elevated to 234 mg/dL was not the patient's fasting BSG, based on noted CHO consumption when BSG was obtained and supported by significant difference from AM fasting today with minimal change to Lantus dose * Yesterday, despite the AM BSG not being a fasting BSG, it was still corrected as such and lunch BSG was the best of the day. Furthermore, significant increase in BSG from lunch to dinner noted after significant CHO intake of 62 g at lunch. Also, patient did not eat dinner and BSG trended down significantly at bedtime. All of this suggests insufficient CHO ratio/coverage. Will tighten today. * AM fasting BSG 131 mg/dL - no changes to Lantus needed PLAN FOR INPATIENT GLYCEMIC CONTROL: * Basal insulin Lantus per scale SQ BID * 0 units for BSG less than 180 mg/dL * 5 units for BSG 180 mg/dL or greater * Bolus insulin * NovoLog per scale ACHS or Q6hrs while NPO * Goal Range: Low 110 mg/dL - High 140 mg/dL * Correction Factor: 25 mg/dL/unit * Nutritional / Prandial insulin per carb ratio of 1 unit per 12 grams CHO consumed PLAN FOR DISCHARGE: * A1c of 6.3 % meets criteria for pre-diabetes * Patient is currently not on anti-diabetic agents as an outpatient * Recommend lifestyle/dietary modifications * May consider starting metformin 500 mg PO daily with dinner
--- NOTE | 2018-03-10 12:41 | Hospitalist Progress Note ---
Date of Service March 10, 2018 Assessment & Plan (1) COPD exacerbation: This is a 58-year-old male who presents with chronic obstructive pulmonary disease exacerbation. Chronic obstructive pulmonary disease exacerbation, Acute exacerbation of COPD, gold level 3, grade C Acute on Chronic respiratory failure with hypoxia and carbon dioxide retention -CTA chest 02/21/18: no PE -had been on high dose steroids, currently on Prednisone. prednisone as 20 mg BID and taper by 10 mg every 4 days for the COPD -Nebs as prn -Advair, continue Bilateral Lower extremity edema, likely from Cor Pulmonale -patient could not tolerate ultrasound of lower extremities, D-dimer only 560 at beginning of admission, CT chest no PE -echocardiogram on 02/24/18 with EF of 65 to 70% - on Lasix for leg edema Acute kidney Injury -resolved Diabetes Mellitus history HbA1c 6.3, not on insulin or other anti-hyperglycemics at home - Pharmacy Glycemic control consult had arranged insulin as needed when patient was on high dose steroids -will not need insulin while on steroid taper as outpatient Hyperlipidemia. Continue statin. Paroxysmal atrial fibrillation with rapid ventricular response -Patient developed atrial fibrillation with rapid ventricular response 03/05/18 and patient has been on anticoagulation -the IV calcium channel john had been transitioned to oral calcium channel john -went back to sinus rhythm on night of 03/06/18 -03/08/18 INR is at goal of 2.3 and heparin drip discontinued while on long acting verapamil as 180 mg daily Patient's heart rhythm went from sinus to atrial fibrillation around 7:30 PM on -03/08/18 and with subsequent mild rapid ventricular response heart rates stable by noon 03/09/18; Medical doctor have increased the verapamil from 180 mg daily to 240 mg daily for 03/10/18 and ongoing -01/17/19 Patient returned to sinus rhythm yesterday night. Heart rate is controlled -in regards to anticoagulation, the patient had therapeutic INR as 2.7 on day time of 03/09/18 while on coumadin 5 mg daily, 4 mg warfarin given on 03/09/18 evening and INR is 3.4 on 03/10/18 -as in discharge instructions: Hold coumadin today and may resume coumadin by or depending on repeat outpatient INR which ever comes first Patient will be followed up by primary care at [facility] physical rehab. Have recommended that the medical doctor follow him within 3 days for INR check Hypothyroidism. Continue on Synthroid. Hypertension -on lisinopril and calcium channel blockers Ongoing tobacco abuse -Nicotine patch. Deep venous thrombosis prophylaxis: coumadin Discharge diagnosis acute exacerbation of chronic obstructive pulmonary disease, acute and chronic respiratory failure, paroxysmal atrial fibrillation, anticoagulated by anticoagulation treatment, Tobacco use Discharge Instructions prednisone as 20 mg BID and taper by 10 mg every 4 days for the COPD verapamil 240 mg daily for rate control of atrial fibrillation warfarin 4 mg daily for anticoagulation of the atrial fibrillation. INR is 3.4 on 03/10/18. Hold coumadin today and may resume coumadin by 03/12/18 or depending on repeat outpatient INR which ever comes first Patient will be followed up by primary care at [facility] physical rehab. Have recommended that the medical doctor follow him within 3 days for INR check 03/20/2018 3:00 PM Provider Adrián Ross PA-C Department Cardiology, [facility] 03/26/2018 11:30 AM Provider VIVIEN Carl Department Pulmonary Medicine, [facility] regular primary care doctor appointment Dr. Schmidt 04/01/17 12:55 PM [facility] take nicoderm patch daily. avoid smoking Subjective Patient returned to sinus rhythm yesterday night. Heart rate is controlled Patient denies shortness of breath. denies chest pain. denies palpitations. denies vomiting Arranging for discharge to [facility] for physical rehabilitation. At request of our case work aide have communicated patient's follow up plans with the physical rehabilitation's Dr. Zarate Physical Exam 2 Vital Signs (Past 24 Hours): Last Vital Signs Temp 36.4 C L 03/10/18 12:02 Pulse 85 03/10/18 12:02 Resp 28 H 03/10/18 12:02 BP 97/61 L 03/10/18 12:02 Pulse Ox 98 03/10/18 12:02 Constitutional: WD/WN, vitals as above Eyes: PERRL, conjunctivae normal, anicteric sclerae ENMT: external ear and nose normal, oropharynx normal Neck: trachea midline, no thyromegaly Respiratory: normal respiratory effort, lungs clear to auscultation Auscultation: lungs clear to auscultation bilaterally Cardiovascular: RRR, no murmur, no edema Gastrointestinal (Abdomen): normal bowel sounds, soft, nontender, no hepatosplenomegaly Musculoskeletal: Head/Neck/Chest: normocephalic and head atraumatic Extremities: strength 5/5 throughout (bilateral lower extremity edema) Neurologic: PERRL, EOMI, accommodation nl, no face palsy, no dysarthria CN' s II-XI intact bilaterally
--- NOTE | 2018-03-10 12:49 | Discharge Summary ---
Date of Service March 10, 2018 Admission HPI Per Admitting Provider DATE OF ADMISSION: 02/21/2018 CHIEF COMPLAINT: Shortness of breath. HISTORY OF PRESENT ILLNESS: This is a 68-year-old male with past medical history significant for COPD, ongoing tobacco use disorder, chronic respiratory failure on 3 L oxygen all the time, BPH, ectopic atrial tachycardia, GERD, hypothyroidism, diabetes not on medications, hyperlipidemia who presents with shortness of breath. The patient was in the ER in the second week of January with COPD as the patient was discharged on prednisone taper. The patient states since then he is not doing good and he is still getting short of breath and cough, bringing up yellowish phlegm, not much, but his short of breath is getting worse. Walking a few steps make him short of breath. Not able ambulate too much in the house.He lives alone. He cooks his own food but lately he is using only microwavable food. He does not drive. He goes outside with his scooter and gets his stuffs. Denies any chest pain, no nausea, no vomiting. No headache, no dizziness. Some ringing noise in the ear. No blurred visions. Has some runny nose, has some sore throat from coughing, no abdominal pain, constipated and takes stool softeners. No burning micturition. Has chronic lower extremity edema, takes Lasix. Currently, having dry coughing spells in the ER. ALLERGIES: TURKEY. PAST MEDICAL HISTORY: As mentioned above. PAST SURGICAL HISTORY: Bronchoscopy, cataract surgery, surgery for right kidney stone. MEDICATIONS: The patient is on albuterol nebulization every 4 hours p.r.n., Lasix 20 mg daily, Atrovent nebulization with with albuterol 4 times daily, Combivent Respimat 1 dose inhalation every 6 hours p.r.n., Lipitor 40 mg p.o. daily, Brief Ellipta 1 puff daily, verapamil SR 120 mg p.o. daily, levothyroxine 50 mcg p.o. daily, gabapentin 300 mg p.o. at bedtime, lisinopril 20 mg p.o. daily, albuterol p.r.n., azithromycin 500 mg on Saturday, Saturday, and Saturday for acute COPD exacerbation, omeprazole 20 mg p.o. daily, Colace 100 mg p.o. b.i.d., oxygen 3.5-4 L continuous. FAMILY HISTORY: Brother has diabetes. Sister has diabetes. Mother has diabetes. SOCIAL HISTORY: , lives alone. Smokes one and half packs every day. 1-2 beers a week. No drug use. REVIEW OF SYMPTOMS: As per HPI. Rest of review of systems negative. Admission Exam Per Admitting Provider PHYSICAL EXAMINATION: GENERAL: The patient is of moderate built, seems to be in mild respiratory distress. VITAL SIGNS: Temperature 36.6, pulse 87, respiratory rate 22, blood pressure 105/64, oxygen 100% on 8 L. HEENT: No pallor, no icterus. Pupils equal, round, and reactive to light. NECK: No JVD, no neck masses, no carotid bruits. CARDIOVASCULAR: S1, S2 heard, regular rate and rhythm, no murmur, no gallop. RESPIRATORY SYSTEM: Normal AP diameter. No accessory muscle use. Bilateral mild wheezing heard, no crackles. ABDOMEN: Soft, bowel sounds present. Mild discomfort in the right lower quadrant. No distention, no guarding, no rigidity. CENTRAL NERVOUS SYSTEM: Cranial nerves II-XII grossly intact. Nonfocal. EXTREMITIES: Lower extremity pedal edema present, no erythema seen. Principal Diagnosis acute exacerbation of chronic obstructive pulmonary disease, acute and chronic respiratory failure, paroxysmal atrial fibrillation, anticoagulated by anticoagulation treatment, Tobacco use Discharge Exam Constitutional WD/WN, vitals as above Eyes PERRL, conjunctivae normal, anicteric sclerae ENMT external ear and nose normal, oropharynx normal Neck trachea midline, no thyromegaly Respiratory normal respiratory effort, lungs clear to auscultation Cardiovascular RRR, no murmur, no edema Gastrointestinal (Abdomen) normal bowel sounds, soft, nontender, no hepatosplenomegaly Musculoskeletal Head/Neck/Chest: normocephalic and head atraumatic Extremities: strength 5/5 throughout (bilateral lower extremity edema) Neurologic PERRL, EOMI, accommodation nl, no face palsy, no dysarthria CN's II-XI intact bilaterally Discharge Data Allergies Allergy/AdvReac Type Severity Reaction Status Date / Time Poultry Allergy Intermediate TURKEY - Verified 02/21/18 02:24 HIVES, RASH, NAUSEA Consultations 02/21/18 02:39 ED Decision to Admit Stat 02/21/18 04:24 Consult Case Management - Discharge Planning Routine 02/23/18 07:38 Consult Pulmonology Routine 02/26/18 14:31 Consult Palliative Care Routine 03/05/18 09:37 Consult Cardiology Routine 03/05/18 09:54 Consult Case Management - Discharge Planning Routine Ordered Studies 02/21/18 20:08 CT angio chest PE protocol Urgent Hospital Course (1) COPD exacerbation: This is a 58-year-old male who presents with chronic obstructive pulmonary disease exacerbation. Chronic obstructive pulmonary disease exacerbation, Acute exacerbation of COPD, gold level 3, grade C Acute on Chronic respiratory failure with hypoxia and carbon dioxide retention -CTA chest 02/21/18: no PE -had been on high dose steroids, currently on Prednisone. prednisone as 20 mg BID and taper by 10 mg every 4 days for the COPD -Nebs as prn -Advair, continue Bilateral Lower extremity edema, likely from Cor Pulmonale -patient could not tolerate ultrasound of lower extremities, D-dimer only 560 at beginning of admission, CT chest no PE -echocardiogram on 02/24/18 with EF of 65 to 70% - on Lasix for leg edema Acute kidney Injury -resolved Diabetes Mellitus history HbA1c 6.3, not on insulin or other anti-hyperglycemics at home - Pharmacy Glycemic control consult had arranged insulin as needed when patient was on high dose steroids -will not need insulin while on steroid taper as outpatient Hyperlipidemia. Continue statin. Paroxysmal atrial fibrillation with rapid ventricular response -Patient developed atrial fibrillation with rapid ventricular response 03/05/18 and patient has been on anticoagulation -the IV calcium channel john had been transitioned to oral calcium channel john -went back to sinus rhythm on night of 03/06/18 -03/08/18 INR is at goal of 2.3 and heparin drip discontinued while on long acting verapamil as 180 mg daily Patient's heart rhythm went from sinus to atrial fibrillation around 7:30 PM on -03/08/18 and with subsequent mild rapid ventricular response heart rates stable by noon 03/09/18; Medical doctor have increased the verapamil from 180 mg daily to 240 mg daily for 03/10/18 and ongoing -01/17/19 Patient returned to sinus rhythm yesterday night. Heart rate is controlled -in regards to anticoagulation, the patient had therapeutic INR as 2.7 on day time of 03/09/18 while on coumadin 5 mg daily, 4 mg warfarin given on 03/09/18 evening and INR is 3.4 on 03/10/18 -as in discharge instructions: Hold coumadin today and may resume coumadin by or depending on repeat outpatient INR which ever comes first Patient will be followed up by primary care at [facility] physical rehab. Have recommended that the medical doctor follow him within 3 days for INR check Hypothyroidism. Continue on Synthroid. Hypertension -on lisinopril and calcium channel blockers Ongoing tobacco abuse -Nicotine patch. Deep venous thrombosis prophylaxis: coumadin Discharge diagnosis acute exacerbation of chronic obstructive pulmonary disease, acute and chronic respiratory failure, paroxysmal atrial fibrillation, anticoagulated by anticoagulation treatment, Tobacco use Discharge Instructions prednisone as 20 mg BID and taper by 10 mg every 4 days for the COPD verapamil 240 mg daily for rate control of atrial fibrillation warfarin 4 mg daily for anticoagulation of the atrial fibrillation. INR is 3.4 on 03/10/18. Hold coumadin today and may resume coumadin by 03/12/18 or depending on repeat outpatient INR which ever comes first Patient will be followed up by primary care at [facility] physical rehab. Have recommended that the medical doctor follow him within 3 days for INR check 03/20/2018 3:00 PM Provider Adrián Ross PA-C Department Cardiology, [facility] 03/26/2018 11:30 AM Provider VIVIEN Carl Department Pulmonary Medicine, [facility] regular primary care doctor appointment Dr. Schmidt 04/01/17 12:55 PM [facility] take nicoderm patch daily. avoid smoking Total Time Total Time Spent Total Time Spent (In Minutes): 40 minutes Total Time Includes: Examination of the Patient, Discharge Planning and Medication Reconciliation Discharge Plan Discharge Items Patient Disposition: Transfer Inpatient Rehab Fac Reason For Visit: COPD EX Discharge Diagnosis: acute exacerbation of chronic obstructive pulmonary disease , acute and chronic respiratory failure, paroxysmal atrial fibrillation, anticoagulated by anticoagulation treatment, Tobacco use Condition: Fair Discharge Goals: Improve disease control and Improve function Activity: Resume your previous activity Non-emergency contact: Primary Care Provider, Specialist and Truck Driver Helper Call non-emergency contact if: you have any medication questions Diet: Carb Consistent or DM2 Addtl Provider Instructions: prednisone as 20 mg BID and taper by 10 mg every 4 days for the COPD verapamil 240 mg daily for rate control of atrial fibrillation warfarin 4 mg daily for anticoagulation of the atrial fibrillation. INR is 3.4 on 03/10/18. Hold coumadin today and may resume coumadin by 03/12/18 or depending on repeat outpatient INR which ever comes first Patient will be followed up by primary care at [facility] physical rehab. Have recommended that the medical doctor follow him within 3 days for INR check 03/20/2018 3:00 PM Provider Adrián Ross PA-C Department Cardiology, [facility] 03/26/2018 11:30 AM Provider VIVIEN Carl Department Pulmonary Medicine, [facility] regular primary care doctor appointment Dr. Schmidt 04/01/17 12:55 PM [facility] take nicoderm patch daily. avoid smoking Prescriptions: New warfarin [Coumadin] 4 mg Tablet 4 mg PO DAILY@1600 30 Days Qty: 30 RF: 0 alprazolam 0.25 mg Tablet 0.25 mg PO BID 4 Days Qty: 8 RF: 0 nicotine [Nicoderm CQ] 21 mg/24 hr Patch 24 Hour 21 mg Transdermal QAM 30 Days Qty: 30 RF: 0 furosemide 20 mg Tablet 20 mg PO QAM 10 Days Qty: 10 RF: 0 verapamil 240 mg Tablet Extended Release 240 mg PO QAM 30 Days Qty: 30 RF: 0 prednisone 20 mg Tablet 20 mg PO BID 12 Days Qty: 20 RF: 0 Continue omeprazole 20 mg Capsule,Delayed Release(Dr/Ec) 20 mg PO DAILY RF: 0 fluticasone-vilanterol [Breo Ellipta] 100-25 mcg/dose Blister With Device 1 inh INHALATION DAILY RF: 0 atorvastatin 40 mg tablet 40 mg PO QAM RF: 0 albuterol sulfate 2.5 mg /3 mL (0.083 %) Solution For Nebulization 2.5 mg INHALATION QID PRN (Reason: Shortness Of Breath Or Wheezing) RF: 0 lisinopril 20 mg tablet 20 mg PO QAM RF: 0 thiamine HCl (vitamin B1) 100 mg Tablet 100 mg PO QAM RF: 0 levothyroxine 50 mcg tablet 50 mcg PO QAM RF: 0 docusate sodium [Colace] 100 mg Capsule 100 mg PO BID RF: 0 gabapentin 300 mg capsule 300 mg PO HS RF: 0 folic acid 1 mg Tablet 1 mg PO QAM RF: 0 furosemide 20 mg tablet 20 mg PO QAM RF: 0 albuterol sulfate [Ventolin HFA] 90 mcg/actuation HFA aerosol inhaler 2 puff Inhalation QID RF: 0 ipratropium-albuterol [Combivent Respimat] 20-100 mcg/actuation mist 2 puff Inhalation QID RF: 0 Discontinued doxycycline monohydrate 100 mg Capsule 100 mg PO BID RF: 0 verapamil 120 mg tablet extended release 120 mg PO QAM RF: 0 Stand-Alone Forms: [facility] Discharge Orders: Discharge Order (Routine); Ordered 03/10/18 Ordered By: Wero Arita Skilled Items Patient informed of condition?: Yes DNR: No Discharge Level of Care: Acute rehab Communicable Disease: No Discharge Prognosis: Stable Admission Data Admit Date/Time: 02/21/18 02:57 Attending Provider: Wero Arita Admit Provider: Chapincito Diamond Primary Care Provider: Derrell Schmidt Other Providers: Chapincito Diamond ; Guille Phillip ; Wero Arita ; Caitie Shi ; Semaj Hammond ; Surendra Wooten Service: Telemetry
== END 2018-03-10 16:25 | DRG 190 ==
LOC: ED 00:43 → SUATTDRO 02:57 → 2S 02:57 → 4E 02-22 12:12 → 2S 02-25 17:47 → 2E 02-26 16:02

== ENCOUNTER 2018-04-23 01:32 | Inpatient (IN) ==
[2018-04-23] MEDS ORDERED: methylPREDNISolone 125 MG/2 ML VIAL IV STA (02:27)
[2018-04-23] MEDS ORDERED: ALBUT/IPRATROP 3MG/0.5MG NEB 3 ML VIAL INH STA (02:27)
[2018-04-23 02:50] LABS: Basophils # (auto) 0.04 K/uL (0-0.2); Basophils % (auto) 0.4 %; Eosinophils # (auto) 0.19 K/uL (0-0.5); Eosinophils % (auto) 1.8 %; Hematocrit (blood only) 33.1 % (42-52); Hemoglobin 11.3 g/dL (14.0-18.0); Immature Granulocytes # (auto) 0.07 K/uL (0.00-0.02); Immature Granulocytes % (auto) 0.6 %; Lymphocytes # (auto) 2.73 K/uL (1.2-3.4); Lymphocytes % (auto) 25.2 %; Mean Corpuscular Hgb Conc 34.1 g/dL (32-36); Mean Corpuscular Volume 96.2 fL (80-100); Mean Platelet Volume 9.9 fL (7.4-10.4); Monocytes # (auto) 0.94 K/uL (0.11-0.59); Monocytes % (auto) 8.7 %; Neutrophils # (auto) 6.88 K/uL (1.4-6.5); Neutrophils % (auto) 63.3 %; Platelet Count 248 K/uL (130-400); RDW Coefficient of Variation 13.8 % (11.5-14.5); RDW Standard Deviation 47.8 fL (36.4-46.3); Red Blood Count 3.44 M/uL (4.7-6.1); White Blood Count 10.85 K/uL (4.8-10.8)
[2018-04-23 03:13] LABS: Albumin Level 2.8 gm/dl (3.4-5.0); Calcium 8.8 mg/dl (8.5-10.1); Creatinine Clr Calc Pharmacy 67.6 ml/min; Est GFR (African American) 79.8; Est GFR (Non-African American) 68.8
[2018-04-23 03:14] LABS: Partial Thromboplastin Ratio 1.8; Prothrombin Time 78.4 Seconds (9.0-12.0)
[2018-04-23 03:16] LABS: Albumin Globulin Ratio 0.7 (0.9-2); Bilirubin,Total 0.2 mg/dl (0.2-1); Globulin 4.2 gm/dl (2.5-4.0)
[2018-04-23] MEDS ORDERED: AZITHROMYCIN 500 MG in DEXTROSE 5% 250 ML IV ONE (04:07)
[2018-04-23] MEDS ORDERED: cefTRIAXone SODIUM 1,000 MG/50 ML BAG IV STA (04:07)
[2018-04-23] MEDS ORDERED: PHYTONADIONE 5 MG TAB PO STA (04:27)
[2018-04-23 04:38] LABS: Magnesium 1.5 mg/dl (1.8-2.4)
--- NOTE | 2018-04-23 05:09 | History & Physical Report ---
Date of Service April 23, 2018 Assessment & Plan (1) Respiratory failure, acute and chronic: Secondary to COPD exacerbation secondary to complicated bronchitis No overt sepsis UGIB secondary to Coumadin coagulopathy Differentials include gastritis, PUD hypertension, BP on the lower side PAF on Coumadin, patient NSR, INR supratherapeutic Abdominal, back pain ruled out intra-abdominal/retroperitoneal bleed from Coumadin coagulopathy DM2, diet controlled, well controlled as of recent hemoglobin A1c of 6.3 last February 2018 history of TIA as per records chronic anemia, hemoglobin at baseline Medical telemetry Supplemental O2 Baseline ABG Doxycycline, nebs, steroids (baseline hemoglobin of 11) Pulmonary consult RE respiratory failure IV PPI Hold Coumadin IV vitamin K to reverse coagulopathy Serial H&H, transfuse PRBC to maintain hemoglobin greater than 8 (hx TIA as per records) GI consult RE UGI B (Patient known to Dr. Camp.) CT abdomen pelvis RE abdominal/back pain Basal insulin, ISS BG goal 140-180 DT precautions Nicotine patch DVT prophylaxis. SCDs while Coumadin on hold if INR less than 2 RE UGIB History of Present Illness Chief Complaint: Shortness of breath Primary Care Provider: Derrell Schmidt MD History obtained from patient and records. Medical history significant for chronic respiratory failure secondary to COPD on home O2, ongoing tobacco abuse, hypertension, A. fib on Coumadin, alcohol abuse as per records, DM2, diet controlled, esophageal stenosis status post dilatation, history of TIA as per records, chronic anemia (baseline hemoglobin of 11) Recent confinement last February 2018 for COPD exacerbation. Patient discharged to [facility] facility where he stayed for 3 weeks. Patient discharged home about 2 weeks ago. Started smoking again. Patient noticed worsening shortness of breath on exertion, junky cough symptoms. Denies aspiration, fever, chills. Denies chest pain, fluid retention. Patient also noted achy right-sided abdominal pain going to the back, dark stools noted the last 4 days. At the ER, patient given IV Solu-Medrol, Ceftriaxone and Azithromycin for COPD exacerbation. Medical History as above Surgical History : Eye surgery, urologic procedures Family History : Heart disease, diabetes Personal/Social history : One pack daily, alcohol abuse as per records, disabled Allergies Allergy/AdvReac Type Severity Reaction Status Date / Time Poultry Allergy Intermediate TURKEY - Verified 02/21/18 02:24 HIVES, RASH, NAUSEA Home Medications Home Medications Medication Instructions Recorded Confirmed Type albuterol sulfate 2.5 mg INHALATION Q4 PRN 01/28/18 04/23/18 History atorvastatin 40 mg PO QAM 01/28/18 04/23/18 History docusate sodium [Colace] 100 mg PO BID 01/28/18 04/23/18 History folic acid 1 mg PO QAM 01/28/18 04/23/18 History furosemide 20 - 40 mg PO DAILY PRN 01/28/18 04/23/18 History gabapentin 300 mg PO HS 01/28/18 04/23/18 History levothyroxine 50 mcg PO QAM 01/28/18 04/23/18 History thiamine HCl (vitamin B1) 100 mg PO QAM 01/28/18 04/23/18 History Breo Ellipta 1 inh INHALATION DAILY 02/21/18 04/23/18 History omeprazole 20 mg PO DAILY 02/21/18 04/23/18 History azithromycin 500 mg PO 3XWK 04/23/18 04/23/18 History ipratropium bromide 1 vial CONTINUOUS NEBULIZATION Q4 04/23/18 04/23/18 History ipratropium-albuterol [Combivent 1 puff INHALATION Q6 PRN MDD 3 04/23/18 04/23/18 History Respimat] doses a day lisinopril 20 mg PO DAILY 04/23/18 04/23/18 History metformin 1,000 mg PO DAILY 04/23/18 04/23/18 History varenicline [Chantix Continuing 1 mg PO BID 04/23/18 04/23/18 History Month Box] verapamil 120 mg PO DAILY 04/23/18 04/23/18 History Past Med/Surg History Medical History Chronic respiratory failure (Chronic) TIA (transient ischemic attack) (Chronic) "1982" GERD (gastroesophageal reflux disease) (Chronic) COPD (chronic obstructive pulmonary disease) (Chronic) Esophageal stenosis (Chronic) "s/p dilation June 2016" 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" BPH (benign prostatic hyperplasia) (Chronic) Hypothyroidism (Chronic) Depression (Chronic) Surgical History S/P bronchoscopy (Chronic) Social History Preferred Language: Faroese Communication Ability: Effective Lookback Coordinator Required: No Beliefs That Will Affect Care: None Current Living Situation: Alone Other Information That Helps Us Care for You: No Feels Safe at Home: Yes Safety Concerns: Feels Safe At This Time Smoking Status: Current every day smoker Hx Alcohol Use: Yes Hx Substance Use: No Review of Systems As per HPI, all 10 systems reviewed, all other ROS negative Physical Exam Vital Signs (Past 24 Hours): Last Vital Signs Temp 36.3 C L 04/23/18 01:39 Pulse 95 H 04/23/18 04:48 Resp 16 04/23/18 04:48 BP 98/60 L 04/23/18 04:48 Pulse Ox 94 04/23/18 04:48 Physical Exam: GENERAL: Comfortable, no respiratory distress, tremulous SKIN: Pallor, warm HEENT: Bespectacled, pale palpebral conjunctivae, no ptosis, dry buccal mucosa, nasal cannula in place NECK : Supple, no tenderness CHEST : Decreased breath sounds, expiratory wheezes, no tenderness HEART : RRR, no obvious murmurs ABDOMEN: Some distention, nontender Rectal exam: Intact sphincter, dark stool, heme-positive EXTREMITIES : No LE swelling/tenderness, no other conspicuous deformities noted NEUROLOGIC : Coherent, no facial asymmetry, tremulous, gait and stance not assessed Results & Data Laboratory Results Laboratory Results WBC 10.85 K/uL (4.8-10.8) H 04/23/18 02:35 RBC 3.44 M/uL (4.7-6.1) L 04/23/18 02:35 Hgb 11.3 g/dL (14.0-18.0) L 04/23/18 02:35 Hct 33.1 % (42-52) L 04/23/18 02:35 MCV 96.2 fL (80-100) 04/23/18 02:35 MCH 32.8 pg (25-34) 04/23/18 02:35 MCHC 34.1 g/dL (32-36) 04/23/18 02:35 RDW Std Deviation 47.8 fL (36.4-46.3) H 04/23/18 02:35 RDW Coeff of Daquan 13.8 % (11.5-14.5) 04/23/18 02:35 Plt Count 248 K/uL (130-400) 04/23/18 02:35 MPV 9.9 fL (7.4-10.4) 04/23/18 02:35 Immature Gran % (Auto) 0.6 % 04/23/18 02:35 Neut % (Auto) 63.3 % 04/23/18 02:35 Lymph % (Auto) 25.2 % 04/23/18 02:35 Payne % (Auto) 8.7 % 04/23/18 02:35 Eos % (Auto) 1.8 % 04/23/18 02:35 Baso % (Auto) 0.4 % 04/23/18 02:35 Immature Gran # (Auto) 0.07 K/uL (0.00-0.02) H 04/23/18 02:35 Neut # (Auto) 6.88 K/uL (1.4-6.5) H 04/23/18 02:35 Lymph # (Auto) 2.73 K/uL (1.2-3.4) 04/23/18 02:35 Payne # (Auto) 0.94 K/uL (0.11-0.59) H 04/23/18 02:35 Eos # (Auto) 0.19 K/uL (0-0.5) 04/23/18 02:35 Baso # (Auto) 0.04 K/uL (0-0.2) 04/23/18 02:35 PT 78.4 Seconds (9.0-12.0) H 04/23/18 02:35 INR 9.0 (0.9-1.1) H* 04/23/18 02:35 APTT 48.0 Seconds (21.0-31.0) H* 04/23/18 02:35 PTT Ratio 1.8 04/23/18 02:35 Sodium 136 mmol/L (136-145) 04/23/18 02:35 Potassium 4.0 mmol/L (3.5-5.1) 04/23/18 02:35 Chloride 97 mmol/L (98-107) L 04/23/18 02:35 Carbon Dioxide 34 mmol/L (21-32) H 04/23/18 02:35 Anion Gap 5.0 (3-11) 04/23/18 02:35 BUN 21 mg/dl (7-18) H 04/23/18 02:35 Creatinine 1.11 mg/dl (0.6-1.4) 04/23/18 02:35 Est Cr Clr Drug Dosing 67.6 ml/min 04/23/18 02:35 Est GFR ( Amer) 79.8 04/23/18 02:35 Est GFR (Non-Af Amer) 68.8 04/23/18 02:35 BUN/Creatinine Ratio 19.0 (10-20) 04/23/18 02:35 Glucose 80 mg/dl (70-99) 04/23/18 02:35 Lactate 1.5 mmol/L (0.4-2.0) 04/23/18 04:22 Calcium 8.8 mg/dl (8.5-10.1) 04/23/18 02:35 Magnesium 1.5 mg/dl (1.8-2.4) L 04/23/18 02:35 Total Bilirubin 0.2 mg/dl (0.2-1) 04/23/18 02:35 AST 19 U/L (15-37) 04/23/18 02:35 ALT 19 U/L (12-78) 04/23/18 02:35 Alkaline Phosphatase 86 U/L (45-117) 04/23/18 02:35 Total Protein 7.0 gm/dl (6.4-8.2) 04/23/18 02:35 Albumin 2.8 gm/dl (3.4-5.0) L 04/23/18 02:35 Globulin 4.2 gm/dl (2.5-4.0) H 04/23/18 02:35 Albumin/Globulin Ratio 0.7 (0.9-2) L 04/23/18 02:35 Diagnostic Findings Chest x-ray as per my interpretation, COPD, possible infiltrate right EKG as per my interpretation : Rate rate 80, NSR, right bundle branch block, no ischemia
[2018-04-23] MEDS ORDERED: NITROGLYCERIN SL 0.4 MG/TAB TAB SL PRN (05:14)
[2018-04-23] MEDS ORDERED: SODIUM CHLORIDE 0.9% 1000ML 1,000 ML IV SCH (05:15)
[2018-04-23 05:21] LABS: HCO3 ABG 29 mmol/L (19-24); PCO2 ABG 46 mmHg (35-46); PO2 ABG 70 mm/Hg (80-95); pH ABG 7.42 (7.35-7.45)
[2018-04-23 05:29] LABS: Allen Test Pos (Pos)
[2018-04-23] MEDS ORDERED: PANTOprazole 80 MG in DEXTROSE 5% 100 ML IV ONE (05:30)
[2018-04-23] MEDS ORDERED: PHYTONADIONE 10 MG in SODIUM CHLORIDE 0.9% 50 ML IV ONE (05:30)
[2018-04-23] MEDS ORDERED: IOVERSOL 100ml IV PRN (05:50)
[2018-04-23] MEDS: PANTOprazole 40 MG in DEXTROSE 5% 100 ML IV SCH ×4 (06:27→21:34)
[2018-04-23] MEDS ORDERED: OXYCODONE HCL IR 5 MG TAB (IMMEDIATE RELEASE) PO PRN (06:51)
[2018-04-23] MEDS ORDERED: GLUCOSE 10 TABS/TUBE PO PRN (06:51)
[2018-04-23] MEDS ORDERED: GLUCAGON FOR INJ 1 MG VIAL SQ PRN (06:51)
[2018-04-23] MEDS ORDERED: CARBOHYDRATES FOR HYPOGLYCEMIA PO PRN (06:51)
[2018-04-23] MEDS ORDERED: ATIVAN IV ALCOHOL WITHDRAWL IV SCH (06:51)
[2018-04-23] MEDS ORDERED: MoRPHine SULFATE 4 MG/ML 1 ML CARP\\VIAL IV PRN (06:51)
[2018-04-23] MEDS ORDERED: GLUCOSE 40% GEL 15 GM TUBE PO PRN (06:51)
[2018-04-23] MEDS ORDERED: PROCHLORPERAZINE 5 MG in SYRINGE 4 ML IV PRN (06:51)
[2018-04-23] MEDS ORDERED: GABAPENTIN 1200MG ALCOHOL WITHDRAWAL LOAD PO STA (06:51)
[2018-04-23] MEDS ORDERED: LORazepam 2 MG/4 ML VIAL IV PRN (06:51)
[2018-04-23] MEDS ORDERED: DEXTROSE 50% 50 ML SYRINGE IV PRN (06:51)
[2018-04-23] MEDS ORDERED: LORazepam 3 MG/6 ML VIAL IV PRN (06:51)
[2018-04-23] MEDS ORDERED: LORazepam 1 MG/2 ML VIAL IV PRN (06:51)
--- NOTE | 2018-04-23 07:03 | CT Scan Report ---
CT abd pelvis IV con only CLINICAL HISTORY: R abd/back pain RIGHT-SIDED ABDOMINAL PAIN COMPARISON STUDY: July 2012 TECHNIQUE: The patient was scanned in a dynamic helical fashion during intravenous administration of 92 cc of Optiray 320. A dose lowering technique was utilized adhering to the principles of ALARA. CT DOSE: 349.53 mGy.cm FINDINGS: Lower chest: There is pulmonary emphysema. There are right lower lobe nodular airspace opacities incl uding an irregular 2 cm right lower lung zone nodule. The findings are likely inflammatory. A two-mon th follow-up studies subsequent to antibiotic therapy is recommended. Small nodules are also visualiz ed the left lung base, also likely inflammatory Liver: The contrast-enhanced liver is normal in size, contour, and attenuation. There is no intrahepa tic biliary ductal dilatation. The hepatic veins and portal veins are patent. Gallbladder: Unremarkable. Spleen: Normal in size and attenuation. Pancreas: Unremarkable. Adrenal glands: There is nodular thickening of the left adrenal gland, similar to the prior study. Kidneys: There are bilateral renal calculi. No solid renal masses are visualized. There is no hydrone phrosis. Bowel: There are no transition zones indicate bowel obstruction. There is no acute diverticulitis. Th e appendix appears normal. Peritoneum: There is no intraperitoneal free air or abdominal ascites. Vasculature: The abdominal aorta is normal in course and caliber. Adenopathy: None. Pelvic viscera: The bladder, and pelvic viscera are unremarkable. Skeletal structures: There is a superior endplate T12 compression fracture. IMPRESSION: 1. No evidence of bowel obstruction. No evidence of free air 2. Bilateral nephrolithiasis 3. Normal appendix no evidence of acute diverticulitis 4. Superior endplate T12 compression fracture 5. Emphysema and lower lobe nodular airspace opacities, statistically infectious/inflammatory. A foll ow-up chest CT subsequent to antibiotic therapy is recommended Electronically signed by: Vladimir Parmar M.D. 04/23/2018 7:02 AM
--- NOTE | 2018-04-23 07:13 | XRay Report ---
SINGLE VIEW CHEST CLINICAL HISTORY: Dyspnea. FINDINGS: An AP, portable, upright chest radiograph is compared to study dated 02/26/2018 and correlat ed with chest CT dated 02/21/2018. The examination is degraded by portable technique and patient rotat ion. The cardiomediastinal silhouette is unremarkable comment noting atherosclerotic calcification o f the thoracic aorta. Enlargement of the central pulmonary arteries suggests pulmonary artery hyperte nsion. Advanced emphysema and chronic interstitial thickening are similar to previous. There is patch y airspace consolidation identified at the right lung base, new from previous. No large pleural effus ion or pneumothorax is seen. The bony thorax is grossly intact. IMPRESSION: 1. Advanced emphysema. 2. There is developing patchy airspace consolidation at the right lung base, new from February of 2018 . The appearance is typical for pneumonia/aspiration pneumonitis. Clinical correlation will be requir ed and radiographic follow-up to resolution is recommended. Electronically signed by: Fahad Hammond M.D. 04/23/2018 7:12 AM
[2018-04-23] MEDS ORDERED: INSULIN GLARGINE SOLOSTAR 100 UNITS/ML 3 ML PEN SQ STA (07:21)
[2018-04-23] MEDS ORDERED: DOXYCYCLINE HYCLATE 100 MG in DEXTROSE 5% 100 ML IV STA (07:22)
[2018-04-23] MEDS ORDERED: GABAPENTIN 600 MG TAB PO ONE (07:30)
[2018-04-23] MEDS: IPRATROPIUM BROMIDE NEB SOLN 0.02% 2.5 ML VIAL INH SCH ×3 (07:45→19:25)
[2018-04-23] MEDS: LEVALBUTEROL 1.25MG/0.5ML NEB INH SCH ×3 (07:45→19:25)
[2018-04-23] MEDS: MAGNESIUM SULFATE / D5W 1 GM/100 ML BAG IV SCH ×2 (07:51→08:54)
[2018-04-23] MEDS: ATORVASTATIN 40 MG TAB PO SCH (07:55)
[2018-04-23] MEDS: FOLIC ACID 1 MG TAB PO SCH (07:55)
[2018-04-23] MEDS: DOCUSATE SODIUM 100 MG CAP PO SCH ×2 (07:55→20:48)
[2018-04-23] MEDS: LEVOTHYROXINE SODIUM 50 MCG TABLET PO SCH (07:55)
[2018-04-23] MEDS: THIAMINE HCL 100 MG TAB PO SCH (07:55)
[2018-04-23] MEDS ORDERED: XOPENEX/ATROVENT 1.25mg/0.5MG NEB COMBO NEB SCH (08:00)
--- NOTE | 2018-04-23 08:02 | Emergency Department Note ---
Entered by Angelica Parker acting as a scribe for History of Present Illness General Chief complaint: Shortness of Breath/Dyspnea Time Seen by Provider: 04/23/18 02:00 Source: patient Mode of arrival: ambulatory Limitations: no limitations History of Present Illness Onset (ago): hour(s) (a few hours ago) Location: chest Severity: similar to prior episodes Pain Consistency: + other (persistent ) Maximum Pain Intensity: 3 Quality: + other (SOB) Associated symptoms: + cough and + other (dizziness, abdominal pain, and lower extremity swelling) Treatments prior to arrival: other (nebulizer) The patient is a 68 year old male who presents to the Emergency Room with complaints persistent SOB that began a few hours ago. The patient reports that the symptoms feel similar to previous episode, noting it "feels the exact same as the last time he was here." The patient complains of dizziness, coughing up phlegm, abdominal pain, and lower extremity swelling. He reports that his symptoms have made walking difficult. He states that he was given a nebulizer by EMS [employer]. The patient reports that he lives alone and spokes cigarettes daily. He states that he wears 4L of oxygen at home, noting that he sometimes takes off the oxygen to smoke. Home Medications Home Medications Medication Instructions Recorded Confirmed Type albuterol sulfate 2.5 mg INHALATION Q4 PRN 01/28/18 04/23/18 History atorvastatin 40 mg PO QAM 01/28/18 04/23/18 History docusate sodium [Colace] 100 mg PO BID 01/28/18 04/23/18 History folic acid 1 mg PO QAM 01/28/18 04/23/18 History furosemide 20 - 40 mg PO DAILY PRN 01/28/18 04/23/18 History gabapentin 300 mg PO HS 01/28/18 04/23/18 History levothyroxine 50 mcg PO QAM 01/28/18 04/23/18 History thiamine HCl (vitamin B1) 100 mg PO QAM 01/28/18 04/23/18 History Breo Ellipta 1 inh INHALATION DAILY 02/21/18 04/23/18 History omeprazole 20 mg PO DAILY 02/21/18 04/23/18 History azithromycin 500 mg PO [id number] 04/23/18 04/23/18 History ipratropium bromide 1 vial CONTINUOUS NEBULIZATION Q4 04/23/18 04/23/18 History ipratropium-albuterol [Combivent 1 puff INHALATION Q6 PRN MDD 3 04/23/18 04/23/18 History Respimat] doses a day lisinopril 20 mg PO DAILY 04/23/18 04/23/18 History metformin 1,000 mg PO DAILY 04/23/18 04/23/18 History varenicline [Chantix Continuing 1 mg PO BID 04/23/18 04/23/18 History Month Box] verapamil 120 mg PO DAILY 04/23/18 04/23/18 History Allergies Allergy/AdvReac Type Severity Reaction Status Date / Time Poultry Allergy Intermediate TURKEY - Verified 02/21/18 02:24 HIVES, RASH, NAUSEA Past Med/Surg History Medical History Chronic respiratory failure (Chronic) TIA (transient ischemic attack) (Chronic) "1982" GERD (gastroesophageal reflux disease) (Chronic) COPD (chronic obstructive pulmonary disease) (Chronic) Esophageal stenosis (Chronic) "s/p dilation June 2016" 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" BPH (benign prostatic hyperplasia) (Chronic) Hypothyroidism (Chronic) Depression (Chronic) Surgical History S/P bronchoscopy (Chronic) Social History Preferred Language: Nigerien Communication Ability: Effective Printing Manager Required: No Beliefs That Will Affect Care: None Current Living Situation: Alone Other Information That Helps Us Care for You: No Feels Safe at Home: Yes Safety Concerns: Feels Safe At This Time Smoking Status: Current every day smoker Hx Alcohol Use: Yes Hx Substance Use: No Review of Systems See HPI for pertinent positives & negatives. and A total of 10 systems reviewed and were otherwise negative Physical Exam Vital Signs Vital Signs - 24 hr 04/23/18 02:37 04/23/18 02:44 04/23/18 03:35 Temperature Temperature Source Pulse Rate Pulse Rate [Apical] 74 73 92 H Pulse Rate [Finger] Pulse Rate [Radial] Pulse Rhythm [Apical] Regular Regular Pulse Strength [Apical] Normal Respiratory Rate 20 24 18 Respiratory Effort / Characteristics Non-Labored Non-Labored Respiratory Depth Normal Respiratory Pattern Regular Blood Pressure Blood Pressure [Right Arm] 101/80 101/80 Blood Pressure Mean [Right Arm] 87 87 Blood Pressure Position [Right Arm] Lying Pulse Oximetry 96 100 99 Oxygen Delivery Method Nasal Cannula Nebulizer Nebulizer Oxygen Flow Rate 3.5 6 04/23/18 04:48 04/23/18 06:00 04/23/18 06:39 Temperature Temperature Source Pulse Rate 71 Pulse Rate [Apical] 95 H Pulse Rate [Finger] Pulse Rate [Radial] Pulse Rhythm [Apical] Regular Pulse Strength [Apical] Normal Respiratory Rate 16 18 16 Respiratory Effort / Characteristics Non-Labored Non-Labored Respiratory Depth Normal Normal Respiratory Pattern Regular Regular Blood Pressure 120/74 Blood Pressure [Right Arm] 98/60 L 121/81 Blood Pressure Mean [Right Arm] 72 94 Blood Pressure Position [Right Arm] Lying Pulse Oximetry 94 96 96 Oxygen Delivery Method Room Air Nasal Cannula Nasal Cannula Oxygen Flow Rate 4 4 04/23/18 07:00 04/23/18 07:45 04/23/18 08:07 Temperature 36.8 C 36.9 C Temperature Source Oral Oral Pulse Rate 94 H Pulse Rate [Apical] Pulse Rate [Finger] Pulse Rate [Radial] 92 H 119 H 92 H Pulse Rhythm [Apical] Pulse Strength [Apical] Respiratory Rate 20 16 16 Respiratory Effort / Characteristics Non-Labored Non-Labored Spontaneous Respiratory Depth Normal Respiratory Pattern Regular Blood Pressure Blood Pressure [Right Arm] 111/67 99/52 L Blood Pressure Mean [Right Arm] 81 67 Blood Pressure Position [Right Arm] Lying Lying Pulse Oximetry 98 96 97 Oxygen Delivery Method Nasal Cannula Nasal Cannula Nasal Cannula Oxygen Flow Rate 4 4 4 04/23/18 11:26 04/23/18 11:35 04/23/18 13:59 Temperature 37.1 C Temperature Source Oral Pulse Rate Pulse Rate [Apical] Pulse Rate [Finger] Pulse Rate [Radial] 76 81 76 Pulse Rhythm [Apical] Pulse Strength [Apical] Respiratory Rate 16 20 Respiratory Effort / Characteristics Spontaneous Respiratory Depth Respiratory Pattern Blood Pressure Blood Pressure [Right Arm] 88/43 L 92/57 L Blood Pressure Mean [Right Arm] 58 68 Blood Pressure Position [Right Arm] Lying Pulse Oximetry 96 96 Oxygen Delivery Method Nasal Cannula Nasal Cannula Oxygen Flow Rate 4 4 04/23/18 19:28 04/23/18 19:51 04/23/18 19:53 Temperature 36.6 C Temperature Source Oral Pulse Rate 70 Pulse Rate [Apical] Pulse Rate [Finger] Pulse Rate [Radial] 78 73 Pulse Rhythm [Apical] Pulse Strength [Apical] Respiratory Rate 16 20 Respiratory Effort / Characteristics Non-Labored Spontaneous Respiratory Depth Respiratory Pattern Blood Pressure Blood Pressure [Right Arm] 116/65 Blood Pressure Mean [Right Arm] 82 Blood Pressure Position [Right Arm] Pulse Oximetry 95 98 Oxygen Delivery Method Nasal Cannula Oxygen Flow Rate 4 04/23/18 20:15 04/23/18 23:00 Temperature 36.5 C Temperature Source Oral Pulse Rate Pulse Rate [Apical] Pulse Rate [Finger] 77 Pulse Rate [Radial] Pulse Rhythm [Apical] Pulse Strength [Apical] Respiratory Rate 19 Respiratory Effort / Characteristics Spontaneous Short of Breath SOB on Exertion Respiratory Depth Respiratory Pattern Regular Blood Pressure Blood Pressure [Right Arm] 134/69 Blood Pressure Mean [Right Arm] 90 Blood Pressure Position [Right Arm] Pulse Oximetry 96 Oxygen Delivery Method Nasal Cannula Oxygen Flow Rate 4 HEENT: Head - normocephalic and atraumatic Pupils are equal, round, and reactive to light. Extraocular eye muscles are intact, and sclera are anicteric. Nose - moist nasal mucosa without discharge. Mouth - moist buccal mucosa. Oropharynx is nonerythematous and there is no tonsillar exudate or edema noted. Neck: Supple; no JVD, nuchal rigidity, cervical lymphadenopathy. Heart: Regular rate and rhythm. There is a normal S1 and S2 with no murmurs, clicks, or gallops appreciated. Lungs: Inspiratory and expiratory wheezes. Rhonchi in all lung stevens. Abdomen: Soft, completely nontender, nondistended, with good bowel sounds. There are no palpable pulsatile masses or hepatosplenomegaly. There is no guarding, rigidity, or rebound noted. Extremities: No evidence of cyanosis or clubbing. There are easily palpable peripheral pulses. 2+ lower extremity edema bilaterally. Skin: warm and dry with good turgor and no rashes. Course 0220: Past medical records reviewed. The patient was evaluated in room C06, and a complete history and physical examination were performed. Laboratory studies were drawn as above. A twelve-lead EKG was obtained as described above. A chest x-ray was obtained. 0227: Solumedrol 125 mg IV, Duoneb 12 ml INH 0403: I checked on the patient. His breathing appeared much improved. 0407: I ordered Rocephin 1000 mg in 50 ml IV, Zithromax 500 mg IV for right lower lobe nodular infiltrates concerning for pneumonia. 0409: I spoke with Dr. Hamilton, [facility] hospitalist, about the patient's case. He will further evaluate the patient. Consultations Consultation #1: [facility]. He will further evaluate the patient. Time: 04:09 Administered Medications Atorvastatin Calcium (Lipitor) 40 mg PO QAM [facility] Stop: 05/23/18 08:59 Last Admin: 04/23/18 07:55 Dose: 40 mg Documented by: [id number] Docusate Sodium (Colace) 100 mg PO BID [facility] Stop: 05/23/18 08:59 Last Admin: 04/23/18 20:48 Dose: 100 mg Documented by: [id number] Admin: 04/23/18 07:55 Dose: 100 mg Documented by: [id number] Doxycycline Hyclate (Vibramycin) 100 mg PO BID [facility] Stop: 04/30/18 20:59 Last Admin: 04/23/18 20:48 Dose: 100 mg Documented by: [id number] Folic Acid (Folvite) 1 mg PO QAM [facility] Stop: 05/23/18 08:59 Last Admin: 04/23/18 07:55 Dose: 1 mg Documented by: [id number] Pantoprazole Sodium 40 mg/ (Dextrose) 100 mls @ 20 mls/hr IV Q5H [facility] Stop: 05/23/18 05:44 Last Admin: 04/23/18 21:34 Dose: 8 mg/hr, 20 mls/hr Documented by: [id number] Infusion: 04/23/18 21:34 Dose: 8 mg/hr, 20 mls/hr Documented by: [id number] Admin: 04/23/18 17:15 Dose: 8 mg/hr, 20 mls/hr Documented by: [id number] Infusion: 04/23/18 17:11 Dose: 8 mg/hr, 20 mls/hr Documented by: [id number] Admin: 04/23/18 12:11 Dose: 8 mg/hr, 20 mls/hr Documented by: [id number] Infusion: 04/23/18 11:27 Dose: 8 mg/hr, 20 mls/hr Documented by: [id number] Admin: 04/23/18 06:27 Dose: 8 mg/hr, 20 mls/hr Documented by: [id number] Sodium Chloride (Nss 1000ml) 1,000 mls @ 50 mls/hr IV .Q20H [facility] Stop: 05/23/18 11:59 Last Infusion: 04/23/18 23:18 Dose: 50 mls/hr Documented by: [id number] Admin: 04/23/18 18:44 Dose: 125 mls/hr Documented by: [id number] Infusion: 04/23/18 18:44 Dose: 125 mls/hr Documented by: [id number] Admin: 04/23/18 12:07 Dose: 125 mls/hr Documented by: [id number] Insulin Aspart (Novolog Flexpen) 0 units SC ACHS [facility] Stop: 05/23/18 07:29 Last Admin: 04/23/18 20:49 Dose: 3 units Documented by: [id number] Cosigned by: [id number] Admin: 04/23/18 18:10 Dose: 9 units Documented by: [id number] Cosigned by: [id number] Admin: 04/23/18 13:31 Dose: 2 units Documented by: [id number] Cosigned by: [id number] Admin: 04/23/18 08:23 Dose: 3 units Documented by: [id number] Cosigned by: [id number] Ioversol (Optiray 320 100ml) 100 ml IV ONCE PRN PRN Reason: Interaction Checking Stop: 04/27/18 05:49 Last Admin: 04/23/18 05:51 Dose: 92 ml Documented by: [id number] Ipratropium [place] (Atrovent 0.02% 0.5mg/2.5ml) 0.5 mg INH Q6R [facility] Stop: 05/23/18 07:59 Last Admin: 04/23/18 19:25 Dose: 0.5 mg Documented by: [id number] Admin: 04/23/18 13:56 Dose: 0.5 mg Documented by: [id number] Admin: 04/23/18 07:45 Dose: 0.5 mg Documented by: [id number] Levalbuterol HCl (Xopenex 1.25mg/0.5ml Neb) 1.25 mg INH Q6R [facility] Stop: 05/23/18 07:59 Last Admin: 04/23/18 19:25 Dose: 1.25 mg Documented by: [id number] Admin: 04/23/18 13:56 Dose: 1.25 mg Documented by: [id number] Admin: 04/23/18 07:45 Dose: 1.25 mg Documented by: [id number] Levothyroxine Sodium (Synthroid) 50 mcg PO DAILYBB [facility] Stop: 05/23/18 07:29 Last Admin: 04/23/18 07:55 Dose: 50 mcg Documented by: [id number] Multivitamins (Multivitamin Tab) 1 tab PO QAM [facility] Stop: 05/23/18 08:59 Last Admin: 04/23/18 08:23 Dose: 1 tab Documented by: [id number] Nicotine (Nicoderm Cq) 21 mg TD QAM [facility] Stop: 05/23/18 08:59 Last Admin: 04/23/18 08:23 Dose: 21 mg Documented by: [id number] Prednisone (Prednisone) 40 mg PO DAILY [facility] Stop: 04/27/18 08:59 Last Admin: 04/23/18 08:23 Dose: 40 mg Documented by: [id number] Thiamine HCl (Vitamin B-1) 100 mg PO QAM [facility] Stop: 05/23/18 08:59 Last Admin: 04/23/18 07:55 Dose: 100 mg Documented by: [id number] Verapamil HCl (Calan Sr) 120 mg PO DAILY [facility] Stop: 05/23/18 08:59 Last Admin: 04/23/18 08:23 Dose: 120 mg Documented by: [id number] Discontinued Medications Albuterol (Duoneb) 12 ml INH ONE STA Stop: 04/23/18 02:28 Last Admin: 04/23/18 02:36 Dose: 12 ml Documented by: [id number] Gabapentin (Neurontin) 1,200 mg PO 0730 ONE Stop: 04/23/18 07:31 Last Admin: 04/23/18 07:55 Dose: 1,200 mg Documented by: [id number] Gabapentin (Neurontin) 600 mg PO Q6H [facility] Stop: 04/23/18 19:01 Last Admin: 04/23/18 18:09 Dose: 600 mg Documented by: [id number] Admin: 04/23/18 13:31 Dose: 600 mg Documented by: [id number] Ceftriaxone Sodium (Rocephin) 1,000 mg in 50 mls @ 100 mls/hr IV NOW STA Stop: 04/23/18 04:36 Last Infusion: 04/23/18 05:17 Dose: 0 mls/hr Documented by: [id number] Admin: 04/23/18 04:36 Dose: 100 mls/hr Documented by: [id number] Azithromycin 500 mg/ Dextrose 255 mls @ 125 mls/hr IV ONE ONE Stop: 04/23/18 06:09 Last Infusion: 04/23/18 07:14 Dose: 0 mls/hr Documented by: [id number] Admin: 04/23/18 04:46 Dose: 125 mls/hr Documented by: [id number] Pantoprazole Sodium 80 mg/ (Dextrose) 120 mls @ 400 mls/hr IV NOW ONE Stop: 04/23/18 05:47 Last Admin: 04/23/18 07:55 Dose: Not Given Documented by: [id number] Phytonadione 10 mg/ Sodium (Chloride) 51 mls @ 102 mls/hr IV ONE ONE Stop: 04/23/18 05:59 Last Infusion: 04/23/18 07:14 Dose: 0 mls/hr Documented by: [id number] Admin: 04/23/18 06:15 Dose: 102 mls/hr Documented by: [id number] Sodium Chloride (Nss 1000ml) 1,000 mls @ 60 mls/hr IV .[id number] [facility] Stop: 05/23/18 05:14 Last Infusion: 04/23/18 11:56 Dose: 0 mls/hr Documented by: [id number] Admin: 04/23/18 07:28 Dose: 60 mls/hr Documented by: [id number] Doxycycline Hyclate 100 mg/ (Dextrose) 110 mls @ 50 mls/hr IV NOW STA Stop: 04/23/18 09:33 Last Infusion: 04/23/18 10:05 Dose: 0 mls/hr Documented by: [id number] Admin: 04/23/18 07:47 Dose: 50 mls/hr Documented by: [id number] Magnesium Sulfate/Dextrose (Magnesium Sulfate / D5w) 1 gm in 100 mls @ 100 mls/hr IV Q1H [facility] Stop: 04/23/18 09:29 Last Infusion: 04/23/18 10:05 Dose: 0 mls/hr Documented by: [id number] Admin: 04/23/18 08:54 Dose: 100 mls/hr Documented by: [id number] Infusion: 04/23/18 08:51 Dose: 100 mls/hr Documented by: [id number] Admin: 04/23/18 07:51 Dose: 100 mls/hr Documented by: [id number] Insulin Glargine (Lantus Solostar Pen) 5 units SQ NOW STA Stop: 04/23/18 07:22 Last Admin: 04/23/18 08:23 Dose: 5 units Documented by: [id number] Cosigned by: [id number] Methylprednisolone (Solumedrol) 125 mg IV NOW STA Stop: 04/23/18 02:28 Last Admin: 04/23/18 02:41 Dose: 125 mg Documented by: [id number] Phytonadione (Mephyton) 2.5 mg PO NOW STA Stop: 04/23/18 04:28 Last Admin: 04/23/18 04:46 Dose: 2.5 mg Documented by: [id number] Medical Decision Making Differential Diagnosis The differential diagnosis includes: Pneumonia, COPD exacerbation, respiratory failure, and CHF Medical Records Attestation: I reviewed the patient's medical records. Home Medications Current Medication List: was personally reviewed by me Laboratory Data Attestation: I reviewed the patient's lab results. Result diagrams: 04/23/18 14:24 04/23/18 02:35 Lab Results 04/23/18 04/23/18 04/23/18 Range/Units 02:35 02:35 02:35 WBC 10.85 H (4.8-10.8) K/uL RBC 3.44 L (4.7-6.1) M/uL Hgb 11.3 L (14.0-18.0) g/dL Hct 33.1 L (42-52) % MCV 96.2 (80-100) fL MCH 32.8 (25-34) pg MCHC 34.1 (32-36) g/dL RDW Std Deviation 47.8 H (36.4-46.3) fL RDW Coeff of Daquan 13.8 (11.5-14.5) % Plt Count 248 (130-400) K/uL MPV 9.9 (7.4-10.4) fL Immature Gran % (Auto) 0.6 % Neut % (Auto) 63.3 % Lymph % (Auto) 25.2 % Wy[place] % (Auto) 8.7 % Eos % (Auto) 1.8 % Baso % (Auto) 0.4 % Immature Gran # (Auto) 0.07 H (0.00-0.02) K/uL Neut # (Auto) 6.88 H (1.4-6.5) K/uL Lymph # (Auto) 2.73 (1.2-3.4) K/uL [place] # (Auto) 0.94 H (0.11-0.59) K/uL Eos # (Auto) 0.19 (0-0.5) K/uL Baso # (Auto) 0.04 (0-0.2) K/uL PT 78.4 H (9.0-12.0) Seconds INR 9.0 H* (0.9-1.1) APTT 48.0 H* (21.0-31.0) Seconds PTT Ratio 1.8 ABG pH (7.35-7.45) ABG pCO2 (35-46) mmHg ABG pO2 (80-95) mm/Hg ABG HCO3 (19-24) mmol/L ABG O2 Saturation (90-95) % ABG Base Excess (-9-1.8) mEq/L Hussein Test (Pos) Barometric Pressure mm/Hg Oxygen Given Sodium 136 (136-145) mmol/L Potassium 4.0 (3.5-5.1) mmol/L Chloride 97 L (98-107) mmol/L Carbon Dioxide 34 H (21-32) mmol/L Anion Gap 5.0 (3-11) BUN 21 H (7-18) mg/dl Creatinine 1.11 (0.6-1.4) mg/dl Est Cr Clr Drug Dosing 67.6 ml/min Est GFR ( Amer) 79.8 Est GFR (Non-Af Amer) 68.8 BUN/Creatinine Ratio 19.0 (10-20) Glucose 80 (70-99) mg/dl POC Glucose (70-99) Lactate (0.4-2.0) mmol/L Calcium 8.8 (8.5-10.1) mg/dl Magnesium 1.5 L (1.8-2.4) mg/dl Total Bilirubin 0.2 (0.2-1) mg/dl AST 19 (15-37) U/L ALT 19 (12-78) U/L Alkaline Phosphatase 86 (45-117) U/L Total Protein 7.0 (6.4-8.2) gm/dl Albumin 2.8 L (3.4-5.0) gm/dl Globulin 4.2 H (2.5-4.0) gm/dl Albumin/Globulin Ratio 0.7 L (0.9-2) Procalcitonin (0-0.5) ng/ml Ethyl Alcohol mg/dL (0-3) mg/dl Blood Type Antibody Screen 04/23/18 04/23/18 04/23/18 Range/Units 04:22 05:07 05:07 WBC (4.8-10.8) K/uL RBC (4.7-6.1) M/uL Hgb (14.0-18.0) g/dL Hct (42-52) % MCV (80-100) fL MCH (25-34) pg MCHC (32-36) g/dL RDW Std Deviation (36.4-46.3) fL RDW Coeff of Daquan (11.5-14.5) % Plt Count (130-400) K/uL MPV (7.4-10.4) fL Immature Gran % (Auto) % Neut % (Auto) % Lymph % (Auto) % [place] % (Auto) % Eos % (Auto) % Baso % (Auto) % Immature Gran # (Auto) (0.00-0.02) K/uL Neut # (Auto) (1.4-6.5) K/uL Lymph # (Auto) (1.2-3.4) K/uL [place] # (Auto) (0.11-0.59) K/uL Eos # (Auto) (0-0.5) K/uL Baso # (Auto) (0-0.2) K/uL PT (9.0-12.0) Seconds INR (0.9-1.1) APTT (21.0-31.0) Seconds PTT Ratio ABG pH 7.42 (7.35-7.45) ABG pCO2 46 (35-46) mmHg ABG pO2 70 L (80-95) mm/Hg ABG HCO3 29 H (19-24) mmol/L ABG O2 Saturation 94.0 (90-95) % ABG Base Excess 4.2 H (-9-1.8) mEq/L Hussein Test Pos (Pos) Barometric Pressure 737.7 mm/Hg Oxygen Given 4L Sodium (136-145) mmol/L Potassium (3.5-5.1) mmol/L Chloride (98-107) mmol/L Carbon Dioxide (21-32) mmol/L Anion Gap (3-11) BUN (7-18) mg/dl Creatinine (0.6-1.4) mg/dl Est Cr Clr Drug Dosing ml/min Est GFR ( Amer) Est GFR (Non-Af Amer) BUN/Creatinine Ratio (10-20) Glucose (70-99) mg/dl POC Glucose (70-99) Lactate 1.5 (0.4-2.0) mmol/L Calcium (8.5-10.1) mg/dl Magnesium (1.8-2.4) mg/dl Total Bilirubin (0.2-1) mg/dl AST (15-37) U/L ALT (12-78) U/L Alkaline Phosphatase (45-117) U/L Total Protein (6.4-8.2) gm/dl Albumin (3.4-5.0) gm/dl Globulin (2.5-4.0) gm/dl Albumin/Globulin Ratio (0.9-2) Procalcitonin (0-0.5) ng/ml Ethyl Alcohol mg/dL < 3.0 (0-3) mg/dl Blood Type Antibody Screen 04/23/18 04/23/18 04/23/18 Range/Units 05:08 07:46 08:35 WBC (4.8-10.8) K/uL RBC (4.7-6.1) M/uL Hgb 10.0 L (14.0-18.0) g/dL Hct 29.6 L (42-52) % MCV (80-100) fL MCH (25-34) pg MCHC (32-36) g/dL RDW Std Deviation (36.4-46.3) fL RDW Coeff of Daquan (11.5-14.5) % Plt Count (130-400) K/uL MPV (7.4-10.4) fL Immature Gran % (Auto) % Neut % (Auto) % Lymph % (Auto) % [place] % (Auto) % Eos % (Auto) % Baso % (Auto) % Immature Gran # (Auto) (0.00-0.02) K/uL Neut # (Auto) (1.4-6.5) K/uL Lymph # (Auto) (1.2-3.4) K/uL [place] # (Auto) (0.11-0.59) K/uL Eos # (Auto) (0-0.5) K/uL Baso # (Auto) (0-0.2) K/uL PT (9.0-12.0) Seconds INR (0.9-1.1) APTT (21.0-31.0) Seconds PTT Ratio ABG pH (7.35-7.45) ABG pCO2 (35-46) mmHg ABG pO2 (80-95) mm/Hg ABG HCO3 (19-24) mmol/L ABG O2 Saturation (90-95) % ABG Base Excess (-9-1.8) mEq/L Hussein Test (Pos) Barometric Pressure mm/Hg Oxygen Given Sodium (136-145) mmol/L Potassium (3.5-5.1) mmol/L Chloride (98-107) mmol/L Carbon Dioxide (21-32) mmol/L Anion Gap (3-11) BUN (7-18) mg/dl Creatinine (0.6-1.4) mg/dl Est Cr Clr Drug Dosing ml/min Est GFR ( Amer) Est GFR (Non-Af Amer) BUN/Creatinine Ratio (10-20) Glucose (70-99) mg/dl POC Glucose 253 H (70-99) Lactate (0.4-2.0) mmol/L Calcium (8.5-10.1) mg/dl Magnesium (1.8-2.4) mg/dl Total Bilirubin (0.2-1) mg/dl AST (15-37) U/L ALT (12-78) U/L Alkaline Phosphatase (45-117) U/L Total Protein (6.4-8.2) gm/dl Albumin (3.4-5.0) gm/dl Globulin (2.5-4.0) gm/dl Albumin/Globulin Ratio (0.9-2) Procalcitonin (0-0.5) ng/ml Ethyl Alcohol mg/dL (0-3) mg/dl Blood Type B Positive Antibody Screen NEGATIVE 04/23/18 04/23/18 04/23/18 Range/Units 11:41 14:24 14:24 WBC (4.8-10.8) K/uL RBC (4.7-6.1) M/uL Hgb 10.2 L (14.0-18.0) g/dL Hct 30.1 L (42-52) % MCV (80-100) fL MCH (25-34) pg MCHC (32-36) g/dL RDW Std Deviation (36.4-46.3) fL RDW Coeff of Daquan (11.5-14.5) % Plt Count (130-400) K/uL MPV (7.4-10.4) fL Immature Gran % (Auto) % Neut % (Auto) % Lymph % (Auto) % [place] % (Auto) % Eos % (Auto) % Baso % (Auto) % Immature Gran # (Auto) (0.00-0.02) K/uL Neut # (Auto) (1.4-6.5) K/uL Lymph # (Auto) (1.2-3.4) K/uL [place] # (Auto) (0.11-0.59) K/uL Eos # (Auto) (0-0.5) K/uL Baso # (Auto) (0-0.2) K/uL PT 14.1 H (9.0-12.0) Seconds INR 1.4 H (0.9-1.1) APTT (21.0-31.0) Seconds PTT Ratio ABG pH (7.35-7.45) ABG pCO2 (35-46) mmHg ABG pO2 (80-95) mm/Hg ABG HCO3 (19-24) mmol/L ABG O2 Saturation (90-95) % ABG Base Excess (-9-1.8) mEq/L Hussein Test (Pos) Barometric Pressure mm/Hg Oxygen Given Sodium (136-145) mmol/L Potassium (3.5-5.1) mmol/L Chloride (98-107) mmol/L Carbon Dioxide (21-32) mmol/L Anion Gap (3-11) BUN (7-18) mg/dl Creatinine (0.6-1.4) mg/dl Est Cr Clr Drug Dosing ml/min Est GFR ( Amer) Est GFR (Non-Af Amer) BUN/Creatinine Ratio (10-20) Glucose (70-99) mg/dl POC Glucose 226 H (70-99) Lactate (0.4-2.0) mmol/L Calcium (8.5-10.1) mg/dl Magnesium (1.8-2.4) mg/dl Total Bilirubin (0.2-1) mg/dl AST (15-37) U/L ALT (12-78) U/L Alkaline Phosphatase (45-117) U/L Total Protein (6.4-8.2) gm/dl Albumin (3.4-5.0) gm/dl Globulin (2.5-4.0) gm/dl Albumin/Globulin Ratio (0.9-2) Procalcitonin (0-0.5) ng/ml Ethyl Alcohol mg/dL (0-3) mg/dl Blood Type Antibody Screen 04/23/18 04/23/18 04/23/18 Range/Units 14:24 14:24 14:24 WBC (4.8-10.8) K/uL RBC (4.7-6.1) M/uL Hgb 10.4 L (14.0-18.0) g/dL Hct (42-52) % MCV (80-100) fL MCH (25-34) pg MCHC (32-36) g/dL RDW Std Deviation (36.4-46.3) fL RDW Coeff of Daquan (11.5-14.5) % Plt Count (130-400) K/uL MPV (7.4-10.4) fL Immature Gran % (Auto) % Neut % (Auto) % Lymph % (Auto) % Wy[place] % (Auto) % Eos % (Auto) % Baso % (Auto) % Immature Gran # (Auto) (0.00-0.02) K/uL Neut # (Auto) (1.4-6.5) K/uL Lymph # (Auto) (1.2-3.4) K/uL Wythe # (Auto) (0.11-0.59) K/uL Eos # (Auto) (0-0.5) K/uL Baso # (Auto) (0-0.2) K/uL PT (9.0-12.0) Seconds INR (0.9-1.1) APTT (21.0-31.0) Seconds PTT Ratio ABG pH (7.35-7.45) ABG pCO2 (35-46) mmHg ABG pO2 (80-95) mm/Hg ABG HCO3 (19-24) mmol/L ABG O2 Saturation (90-95) % ABG Base Excess (-9-1.8) mEq/L Hussein Test (Pos) Barometric Pressure mm/Hg Oxygen Given Sodium (136-145) mmol/L Potassium (3.5-5.1) mmol/L Chloride (98-107) mmol/L Carbon Dioxide (21-32) mmol/L Anion Gap (3-11) BUN (7-18) mg/dl Creatinine (0.6-1.4) mg/dl Est Cr Clr Drug Dosing ml/min Est GFR ( Amer) Est GFR (Non-Af Amer) BUN/Creatinine Ratio (10-20) Glucose (70-99) mg/dl POC Glucose (70-99) Lactate (0.4-2.0) mmol/L Calcium (8.5-10.1) mg/dl Magnesium 2.3 (1.8-2.4) mg/dl Total Bilirubin (0.2-1) mg/dl AST (15-37) U/L ALT (12-78) U/L Alkaline Phosphatase (45-117) U/L Total Protein (6.4-8.2) gm/dl Albumin (3.4-5.0) gm/dl Globulin (2.5-4.0) gm/dl Albumin/Globulin Ratio (0.9-2) Procalcitonin < 0.05 (0-0.5) ng/ml Ethyl Alcohol mg/dL (0-3) mg/dl Blood Type Antibody Screen 04/23/18 04/23/18 Range/Units 17:35 19:58 WBC (4.8-10.8) K/uL RBC (4.7-6.1) M/uL Hgb (14.0-18.0) g/dL Hct (42-52) % MCV (80-100) fL MCH (25-34) pg MCHC (32-36) g/dL RDW Std Deviation (36.4-46.3) fL RDW Coeff of Daquan (11.5-14.5) % Plt Count (130-400) K/uL MPV (7.4-10.4) fL Immature Gran % (Auto) % Neut % (Auto) % Lymph % (Auto) % Wy[place] % (Auto) % Eos % (Auto) % Baso % (Auto) % Immature Gran # (Auto) (0.00-0.02) K/uL Neut # (Auto) (1.4-6.5) K/uL Lymph # (Auto) (1.2-3.4) K/uL Wythe # (Auto) (0.11-0.59) K/uL Eos # (Auto) (0-0.5) K/uL Baso # (Auto) (0-0.2) K/uL PT (9.0-12.0) Seconds INR (0.9-1.1) APTT (21.0-31.0) Seconds PTT Ratio ABG pH (7.35-7.45) ABG pCO2 (35-46) mmHg ABG pO2 (80-95) mm/Hg ABG HCO3 (19-24) mmol/L ABG O2 Saturation (90-95) % ABG Base Excess (-9-1.8) mEq/L Hussein Test (Pos) Barometric Pressure mm/Hg Oxygen Given Sodium (136-145) mmol/L Potassium (3.5-5.1) mmol/L Chloride (98-107) mmol/L Carbon Dioxide (21-32) mmol/L Anion Gap (3-11) BUN (7-18) mg/dl Creatinine (0.6-1.4) mg/dl Est Cr Clr Drug Dosing ml/min Est GFR ( Amer) Est GFR (Non-Af Amer) BUN/Creatinine Ratio (10-20) Glucose (70-99) mg/dl POC Glucose 308 H 237 H (70-99) Lactate (0.4-2.0) mmol/L Calcium (8.5-10.1) mg/dl Magnesium (1.8-2.4) mg/dl Total Bilirubin (0.2-1) mg/dl AST (15-37) U/L ALT (12-78) U/L Alkaline Phosphatase (45-117) U/L Total Protein (6.4-8.2) gm/dl Albumin (3.4-5.0) gm/dl Globulin (2.5-4.0) gm/dl Albumin/Globulin Ratio (0.9-2) Procalcitonin (0-0.5) ng/ml Ethyl Alcohol mg/dL (0-3) mg/dl Blood Type Antibody Screen Imaging Data Attestation: I personally reviewed and interpreted this imaging study as follows: My Impression: XR CHEST 1V: Emphysematous changes with a new right lower lobe infiltrate. ECG Data Attestation: I personally reviewed and interpreted this ECG as follows: Indication: SOB/dyspnea Rate (beats per minute): 80 Rhythm: normal sinus Findings: + other (no ischemia); no ectopy Blood Pressure Blood Pressure Findings: Low blood pressure Blood Pressure Disposition: further management by hospitalist PAULO Andersen The patient is a 68 year old male who presents to the Emergency Room with complaints persistent SOB that began a few hours ago. The patient has a long- standing history of COPD and continues to smoke. He was admitted here at this hospital for approximately 3 weeks during last month. At that time, he had been diagnosed with new onset A. fib and was placed on Coumadin upon discharge to [facility]. The patient is noted to have an INR today of 9. He presents with increasing shortness of breath. He was found to have significant inspiratory and expiratory wheezing. He was given an hour-long DuoNeb which did seem to give him some relief. The patient was found to have a new right lower lobe infiltrate. He was treated with IV antibiotics and steroids. I discussed the case with the hospitalist and they will evaluate for further management. Impression & Plan Pneumonia, COPD exacerbation, Supratherapeutic INR Discharge Plan Visit Data *Final* Discharge Date/Time: 04/23/18 06:39 Chief Complaint: Shortness of Breath/Dyspnea ED Provider: Gisele Rodriguez Discharge Problem: Pneumonia, COPD exacerbation, Supratherapeutic INR Patient Disposition: Admitted As Inpatient Discharge Instructions Interventions: ED Discharge Assessment Last Done: 04/23/18 06:39 Discharge Problem: Pneumonia Qualifiers: Pneumonia type: due to unspecified organism Laterality: right Lung location: lower lobe of lung Qualified Code(s): J18.1 - Lobar pneumonia, unspecified organism The scribe's documentation has been prepared under my direction and personally reviewed by me in its entirety. I confirm that the note above accurately reflects all work, treatment, procedures, and medical decision making performed by me.
[2018-04-23] MEDS: NICOTINE 21 MG/24 HR TDSY TD SCH (08:23)
[2018-04-23] MEDS: MULTIVITAMIN TAB PO SCH (08:23)
[2018-04-23] MEDS: predniSONE 20 MG TAB PO SCH (08:23)
[2018-04-23] MEDS: INSULIN ASPART 100 UNITS/ML 3 ML PEN SC SCH ×4 (08:23→20:49)
[2018-04-23] MEDS: VERAPAMIL HCL 120 MG TABCR PO SCH (08:23)
[2018-04-23 08:52] LABS: Hematocrit (blood only) 29.6 % (42-52)
--- NOTE | 2018-04-23 11:15 | Consultation Report ---
DATE OF CONSULTATION: 04/23/2018 REASON FOR CONSULTATION: [id number] respiratory failure and COPD exacerbation. HISTORY OF PRESENT ILLNESS: A 68-year-old white male with severe chronic obstructive pulmonary disease/emphysema, on oxygen at 4 liters by nasal cannula at home, who apparently lives by himself, was admitted on to Dr. Hamilton's service last evening. He states he has numerous problems including a very bad equilibrium stating that he cannot stand for more than a few minutes without becoming dizzy and losing his balance. He also states for the past several years in the morning when he starts to initiate a conversation, he experiences strong paroxysms of coughing with great difficulty expectorating. He denies pleuritic pain or hemoptysis. He has had a history of upper GI bleed secondary to Coumadin coagulopathy, presumably secondary to gastritis or peptic ulcer disease. He has a history of paroxysmal atrial fibrillation that is the reason he has been on Coumadin therapy and has had a history of a retroperitoneal bleed on Coumadin, as he is diabetic and has had a previous TIA and history of chronic anemia as well. I have asked to see patient in consultation. In review of the record, he was most recently discharged on 03/10/2018. The records suggested he is on 3 L of oxygen. He has a history of BPH, atrial tachycardia along with GERD and hypothyroidism. He had a COPD exacerbation in the second week of January and was seen in our ER as well. He cannot ambulate without severe dyspnea. He has a nebulizer at home utilizing albuterol every 4 hours and Atrovent. He also has a Breo Ellipta and has a Combivent Respimat that he uses as needed. There is a strong family history for diabetes. He continues to smoke one and half pack of cigarettes a day and drinks on a daily basis, although he states not to excess. He states that I saw him in consultation last hospitalization, though I do not have the note on the chart that would suggest that I did. He has undergone CTA of the chest in 02/2018 with no evidence of pulmonary thromboembolic disease. He developed atrial fibrillation with a rapid ventricular response during that admission. He was placed on IV calcium channel john then converted to oral dosing. His Coumadin was adjusted for therapeutic INR. For details of past medical history, medications, family history and social history, I refer you to current and past record. PHYSICAL EXAMINATION: GENERAL: Well-developed, well-nourished, disheveled white male who is a somewhat poor historian and coughing sporadically but the cough appears to be intractable. VITAL SIGNS: Blood pressure 128/74, pulse 71 and regular, respiratory rate 16, temperature 36.3, O2 sat 96% on 4 L. SKIN: Without lesion. HEENT: Atraumatic, normocephalic. PERRLA. LUNGS: Scattered wheeze, but cannot make a full inspiratory effort without coughing. CARDIAC: Regular rate and rhythm. I do not appreciate a gallop. ABDOMEN: Soft, protuberant. EXTREMITIES: No significant pedal edema, clubbing or cyanosis. NEUROLOGIC: Intact. No lateralizing signs. EKG shows sinus rhythm. Chest x-ray developing patchy airspace consolidation in the right base, which you can see on the CAT of the abdomen and pelvis. Severe emphysema is noted and the right lower lobe area of infiltrate looks to be approximately 2 cm and looks inflammatory, though neoplastic process seem less likely given that on 02/21/2018. A dedicated CT showed severe emphysema. There is moderate narrowing of the right middle lobe bronchus, which appeared unchanged. There were secretions within the bronchus intermedius at that time, but I do not see the present infiltrate at 20 degree therefore I doubt if it represents neoplasm. LABORATORY DATA: White count 10,000, H and H 11.3 and 33.1. Blood cultures pending. PT/INR 9.0! ABGs pH 7.42, pCO2 of 46, pO2 of 70 on 4 L. Magnesium 1.5. PCR for influenza type A and B are negative. OVERALL ASSESSMENT: A 68-year-old white male with severe end-stage, chronic obstructive pulmonary disease/emphysema/chronic bronchitis, presents with [id number] respiratory failure, O2 dependent and continues to smoke and I suspect drink with equilibrium issues and persistent respiratory symptomatology. I suspect the right lower lobe infiltrate represents mucoid impaction with a pneumonitis and we are not dealing with a neoplastic process though it was certainly possible even in 2-3 months for aggressive neoplasm to establish itself. It think that would be less likely. The patient is not a candidate for bronchoscopic intervention and would just apply vigorous pulmonary toilet and I will see once again discuss smoking cessation. [facility]
[2018-04-23] MEDS: SODIUM CHLORIDE 0.9% 1000ML 1,000 ML IV SCH ×2 (12:07→18:44)
[2018-04-23] MEDS: GABAPENTIN 600 MG TAB PO SCH ×2 (13:31→18:09)
[2018-04-23 14:44] LABS: Hematocrit (blood only) 30.1 % (42-52); Hemoglobin 10.2 g/dL (14.0-18.0)
[2018-04-23 14:52] LABS: INR 1.4 (0.9-1.1); Prothrombin Time 14.1 Seconds (9.0-12.0)
--- NOTE | 2018-04-23 19:53 | Hospitalist Progress Note ---
Date of Service April 23, 2018 Assessment & Plan (1) Respiratory failure, acute and chronic: acute on Chronic obstructive pulmonary disease exacerbation Tobacco abuse -previously hospitalized in between February 2018 -then discharged to physical therapy -apparently returned home from inpatient physical therapy facility and then has respiratory decompensation -admission CXR 1. Advanced emphysema. 2. There is developing patchy airspace consolidation at the right lung base, new from February of 2018. (The appearance is typical for pneumonia/aspiration pneumonitis as per radiology read) -admitting hospitalist started on doxcycline with nebulizer treatments for COPD exacerbation / bronchitis, continue current respiratory treatments as q 6 hours, continue prednisone daily, Nicotine patch, oxygen supplementation to maintain oxygen saturation between 88 to 92 % Paroxysmal atrial fibrillation -was last discharged with Verapamil 180 mg daily, currently on 120 mg daily and heart rate appears controlled -was discharged on coumadin -came to hospital on admission with supratherapeutic INR of 9, this was reversed with vitamin K and now INR is less than 2 Possible GI bleed -as per admitting hospitalist exam -supratherapeutic INR has been reversed -awaiting Gastroneterology recommendations -patient will be NPO after midnight in case there is acute blood loss or need of gastroenterology interventions CT abdomen 1. No evidence of bowel obstruction. No evidence of free air 2. Bilateral nephrolithiasis 3. Normal appendix no evidence of acute diverticulitis 4. Superior endplate T12 compression fracture 5. Emphysema and lower lobe nodular airspace opacities, statistically infectious/inflammatory. Hypertension -hold antihypertensives for now while workup for possible GI bleed -on IV fluids and blood pressure is not hypertensive DM2, diet controlled, well controlled as of recent hemoglobin A1c of 6.3 last February 2018 -Basal insulin, ISS BG goal 140-180 Hypothyroidism -Continue on Synthroid. Alcohol use no signs of alcohol withdrawl, on gabapentin withdrawal protocol as prec autionary DVT prophylaxis. SCDs Subjective Patient did not seem to have any gross bleeding today His INR has been reversed. Patient able to eat a liquid diet Patient reports seeing gastroenterology doctor but gastroenterology service has not communicated any plans patient will be NPO after midnight in case there is acute blood loss or need of gastroenterology interventions Patient appears to be breathing on nasal cannula comfortably. denies chest pain or palpitations. denies abdominal pain Physical Exam Vital Signs (Past 24 Hours): Last Vital Signs Temp 36.6 C 04/23/18 19:51 Pulse 73 04/23/18 19:51 Resp 20 04/23/18 19:51 BP 116/65 04/23/18 19:51 Pulse Ox 98 04/23/18 19:51 Constitutional: WD/WN, vitals as above Eyes: PERRL, conjunctivae normal, anicteric sclerae EOM intact bilaterally ENMT: external ear and nose normal, oropharynx normal Respiratory: normal respiratory effort, lungs clear to auscultation (on nasal cannula) Cardiovascular: RRR, no murmur, no edema Gastrointestinal (Abdomen): normal bowel sounds, soft, nontender, no hepatosplenomegaly Musculoskeletal: Head/Neck/Chest: normocephalic and head atraumatic Neurologic: PERRL, EOMI, accommodation nl, no face palsy, no dysarthria CN's II-XI intact bilaterally Psychiatric: A+Ox3, euthymic affect
[2018-04-23] MEDS: DOXYCYCLINE HYCLATE 100 MG CAP PO SCH (20:48)
[2018-04-24] MEDS: IPRATROPIUM BROMIDE NEB SOLN 0.02% 2.5 ML VIAL INH SCH ×4 (02:07→19:46)
[2018-04-24] MEDS: LEVALBUTEROL 1.25MG/0.5ML NEB INH SCH ×3 (02:09→13:41)
[2018-04-24 02:10] LABS: Appearance Urine Clear (Clear); Bilirubin Urine Negative (Negative); Blood Urine Negative (Negative); Color Urine Yellow; Glucose Urine UA Negative (Negative); Ketones Urine Negative (Negative); Leukocyte Esterase Urine Negative (Negative); Nitrite Urine Negative (Negative); Protein Urine Negative (Negative); Specific Gravity Urine 1.012 (1.000-1.030); Urobilinogen Urine Negative (Negative)
--- NOTE | 2018-04-24 02:37 | Consultation Report ---
DATE OF CONSULTATION: 04/23/2018 ATTENDING PHYSICIAN: Dell Hamilton MD CONSULTING PHYSICIAN: Kirt Camp DO REASON FOR CONSULTATION: Upper GI bleed. HISTORY OF PRESENT ILLNESS: Turner Villareal is a 68-year-old male with an extensive past medical history that includes end-stage COPD and chronic respiratory failure. He presented to the Department of Emergency Medicine earlier today with complaints of shortness of breath and dyspnea. He also was noted to have some cough. He does require home O2 at 4 L per minute and does continue to smoke heavily. Upon arrival to the Department of Emergency Medicine, he was noted to have an H and H of 11.3 and 33.1, white blood cell count of 10.85 with a platelet count of 248. His BUN and creatinine were 21 and 1.1. His liver panel was unremarkable. His blood glucose was 253. He did have a chest x-ray today showing advanced emphysema and airspace consolidation at the right lung base, which was new from 02/2018 and was felt to be secondary to pneumonia versus an aspiration pneumonitis. It should be noted that the patient did complain of some mild abdominal pain in the right upper quadrant and does have a chronic anemia, which was felt to be at baseline, though his PT and INR were elevated as he is on chronic Coumadin therapy and his INR was noted to be 9.0. He did receive vitamin K in the ER, both IV as well as p.o. and a repeat level later today revealed INR of 1.4. He subsequently was admitted and started on IV antibiotics due to the patient's anemia and right upper quadrant abdominal pain. Consultation was placed. At the time that I saw the patient, he was sitting at his bedside. He complained of continued shortness of breath and generalized weakness though denied any abdominal pain at the time that I saw him. He states previously he was having right-sided pain which he described as 3/10 in intensity, nonradiating without alleviating or exacerbating factors. He did have some dark stool per the patient, though has had no further bowel movements since his arrival to the Department of Emergency Medicine. He further denied any hematemesis or hematochezia. Nursing staff reports that he has not had any bowel movements as well. He was seen by Dr. Abbasi of Pulmonary Medicine and Dr. Abbasi felt that he was not a candidate for bronchoscopic intervention due to his chronic medical comorbidities. The patient did state that he had some mild dysphagia to solids greater than liquids and did undergo an EGD in 2017 and was noted to have a food bolus at that time as well as retained gastric contents. Dilation was performed to 15 mm. The patient is unaware as to whether or not he has been taking his prescribed PPI therapy at home. He denied any further complaints including fevers, chills, nausea, vomiting, jaundice, acholic stools, dark urine, or pruritus and had no further complaints. PAST MEDICAL HISTORY: Extensive and includes COPD with chronic respiratory failure on home O2, TIA, GERD, COPD, history of esophageal stenosis, superficial thrombophlebitis on chronic Coumadin therapy with a supratherapeutic INR, BPH, hypothyroidism, depression. PAST SURGICAL HISTORY: Includes aforementioned EGD, history of bronchoscopy. ALLERGIES: POULTRY FOODS. Medication allergies are none. MEDICATIONS AT PRESENT: Include Tylenol 650 mg p.o. q. 4 hours p.r.n. pain or fever, Ativan therapy for alcohol withdrawal as needed as per the primary team Lipitor 40 mg p.o. q.a.m., Phenergan 5 mg IV q. 6, docusate sodium 100 mg p.o. b.i.d., doxycycline 100 mg p.o. b.i.d., folic acid 1 mg p.o. q.a.m., gabapentin as per the primary team, sliding scale insulin as per the primary team, Xopenex 1.25 mg via nebulizer q. 6 hours p.r.n., ipratropium 0.5 mg via nebulizer q. 6 hours, morphine 2 mg IV q. 3 p.r.n. pain, multivitamin 1 tab p.o. q.a.m., nicotine 21 mg transdermally applied q.a.m., nitroglycerin 0.4 mg sublingual tablets as directed p.r.n. chest pain, oxycodone 5 mg p.o. q. 4 p.r.n. pain, prednisone 40 mg daily, Protonix drip at 8 mg per hour, thiamine 100 mg p.o. q.a.m., verapamil 120 mg p.o. daily. SOCIAL HISTORY: Lives alone, smokes daily, chronic alcohol use. No illicit drug use. FAMILY HISTORY: Negative for GI malignancy or inflammatory bowel disease. REVIEW OF SYSTEMS: Negative x12 system review other than pertinent positives listed in the HPI. PHYSICAL EXAMINATION: VITAL SIGNS: Temp 36.6, pulse 70, respirations 20, blood pressure 116/65, pulse ox 98% on 4 L via nasal cannula. GENERAL: Chronic ill appearing, no acute distress. HEAD: Normocephalic, atraumatic. EYES: Pupils equal, round. Extraocular muscles are intact. ENT: External evaluation of ears and nose are normal. Oropharynx is clear. NECK: Soft, supple. No JVD or lymphadenopathy. CHEST: Decreased breath sounds throughout. CARDIOVASCULAR SYSTEM: Regular rate and rhythm. ABDOMEN: Soft, nontender, nondistended. There is positive bowel sounds. There is no appreciable hepatosplenomegaly. EXTREMITIES: No edema. SKIN: Multiple areas of ecchymosis. Thin and friable. LABORATORY STUDIES: Reviewed in the HPI. IMPRESSION: A 68-year-old male with chronic respiratory failure secondary to chronic obstructive pulmonary disease, chronic home oxygen therapy a questionable pneumonia, abdominal pain, anemia and supratherapeutic INR. PLAN: At the present time, I would recommend that the patient continue to receive Protonix drip at 8 mg per hour. I would also recommend adding Carafate 1 g p.o. q.i.d. for 10 days. Clearly, he is not a candidate for endoscopic workup at this time secondary to his chronic medical comorbidities as well as his [id number] respiratory failure and questionable pneumonia. I will follow his clinical course and make further recommendations as needed. Once again, thank you for allowing me to participate in the care of this patient. If you have any further questions, please do not hesitate in contacting me.
[2018-04-24] MEDS: PANTOprazole 40 MG in DEXTROSE 5% 100 ML IV SCH ×5 (02:41→23:25)
[2018-04-24] MEDS: GABAPENTIN 600 MG TAB PO SCH ×3 (02:43→21:09)
[2018-04-24] MEDS: LEVOTHYROXINE SODIUM 50 MCG TABLET PO SCH (06:03)
[2018-04-24 07:54] LABS: Hematocrit (blood only) 27.4 % (42-52); Hemoglobin 9.2 g/dL (14.0-18.0); Immature Granulocytes # (auto) 0.04 K/uL (0.00-0.02); Immature Granulocytes % (auto) 0.3 %; Lymphocytes # (auto) 1.48 K/uL (1.2-3.4); Mean Corpuscular Hgb Conc 33.6 g/dL (32-36); Mean Corpuscular Volume 95.8 fL (80-100); Mean Platelet Volume 9.7 fL (7.4-10.4); Monocytes % (auto) 7.4 %; Neutrophils # (auto) 10.99 K/uL (1.4-6.5); Neutrophils % (auto) 81.3 %; Platelet Count 200 K/uL (130-400); RDW Coefficient of Variation 13.9 % (11.5-14.5); RDW Standard Deviation 48.5 fL (36.4-46.3); Red Blood Count 2.86 M/uL (4.7-6.1); White Blood Count 13.51 K/uL (4.8-10.8)
[2018-04-24 08:03] LABS: INR 1.1 (0.9-1.1); Prothrombin Time 10.9 Seconds (9.0-12.0)
[2018-04-24] MEDS: SODIUM CHLORIDE 0.9% 1000ML 1,000 ML IV SCH (08:06)
[2018-04-24] MEDS: INSULIN ASPART 100 UNITS/ML 3 ML PEN SC SCH ×4 (08:07→21:09)
[2018-04-24] MEDS: INSULIN GLARGINE SOLOSTAR 100 UNITS/ML 3 ML PEN SQ SCH (08:09)
[2018-04-24] MEDS: NICOTINE 21 MG/24 HR TDSY TD SCH (08:14)
[2018-04-24 08:30] LABS: BUN Creatinine Ratio 15.3 (10-20); Calcium 8.6 mg/dl (8.5-10.1); Creatinine Clr Calc Pharmacy 98.6 ml/min; Est GFR (African American) 78.9; Est GFR (Non-African American) 68.1; Magnesium 2.1 mg/dl (1.8-2.4); Potassium 4.3 mmol/L (3.5-5.1)
--- NOTE | 2018-04-24 13:41 | Hospitalist Progress Note ---
Date of Service April 24, 2018 Assessment & Plan (1) Respiratory failure, acute and chronic: acute on Chronic obstructive pulmonary disease exacerbation Tobacco abuse CXR 1. Advanced emphysema. 2. There is developing patchy airspace consolidation at the right lung base, new from February of 2018. (The appearance is typical for pneumonia/aspiration pneumonitis as per radiology read) --Improving gradually Remains on 4 L of nasal cannula Continue doxycycline Continue prednisone taper Continue nebs but decrease the albuterol to 0.6 to avoid SVTs Ordered Advair for today while waiting for patient's usual [facility] pulmonary service recommendations Episode of SVT Patient has a history of atrial tachycardia and paroxysmal A. fib Resolved with 1 dose of IV adenosine Dose dose of levalbuterol Check TSH, electrolytes, hemoglobin We will update echocardiogram Already on verapamil p.o. Paroxysmal atrial fibrillation -was last discharged with Verapamil 180 mg daily, currently on 120 mg daily Coumadin reversed, INR is 1.1 in light of GI bleed Monitor closely Possible GI bleed -supratherapeutic INR has been reversed CT abdomen 1. No evidence of bowel obstruction. No evidence of free air 2. Bilateral nephrolithiasis 3. Normal appendix no evidence of acute diverticulitis 4. Superior endplate T12 compression fracture 5. Emphysema and lower lobe nodular airspace opacities, statistically infectious/inflammatory. -[place] neurologist Dr. Camp consulted, in light of COPD exacerbation EGD not recommended at this time Recommend medical management including Protonix drip and sucralfate 4 times daily for now Monitor closely Dr. Camp recommends to hold Coumadin at this point Hypertension Blood pressure on the lower side this afternoon in light of SVT Gentle IV fluids, monitor while on verapamil DM2, diet controlled, well controlled as of recent hemoglobin A1c of 6.3 last February 2018 -Basal insulin, ISS BG goal 140-180 Hypothyroidism -Continue on Synthroid. Alcohol use no signs of alcohol withdrawl, on gabapentin withdrawal protocol as precautionary DVT prophylaxis. SCDs space only in light of GI bleed Disposition pending lives at home Will need PT and OT evaluations Subjective Follow-up for COPD exacerbation, GI bleed Seen resting in bed, comfortable, watching TV States breathing continues to improve, has occasional cough Denies abdominal pain, no bowel movements today Denies chest pain, shortness of breath, dizziness Called by RN around 430 blood patient's heart rate being in the 160s, sinus Seen patient at the bedside, not in distress but does report palpitations and heartburn sensation Systolic blood pressure 88 Heart rate 160s regular Stat twelve-lead EKG showing SVT Patient given adenosine 6 mg IV 1 dose with portable security monitor, also given 500 cc of IV normal saline bolus Patient converted to heart rate 80s, sinus rhythm blood pressure systolic 120s States he is feeling improved, palpitations and heartburn sensation resolved No other symptoms Physical Exam Vital Signs (Past 24 Hours): Last Vital Signs Temp 36.8 C 04/24/18 07:01 Pulse 63 04/24/18 07:36 Resp 18 04/24/18 07:36 BP 115/64 04/24/18 07:01 Pulse Ox 96 04/24/18 07:36 Physical Exam: General- oriented x 3, not in distress, speaks in sentences with no effort or accessory muscle use Eyes- anicteric Neck- no JVD Lungs-mild scattered wheeze bilaterally, no crackles Heart- normal rate, regular rhythm; no murmurs Abdomen- normal bowel sounds, nondistended, soft, nontender Extremities- no pretibial edema, no calf tenderness Neuro- alert, oriented x 3; no gross focal neurologic deficits Skin- warm & dry Results & Data Laboratory Results Laboratory Results - last 24 hr 04/23/18 04/23/18 04/24/18 17:35 19:58 02:00 WBC RBC Hgb Hct MCV MCH MCHC RDW Std Deviation RDW Coeff of Daquan Plt Count MPV Immature Gran % (Auto) Neut % (Auto) Lymph % (Auto) [place] % (Auto) Eos % (Auto) Baso % (Auto) Immature Gran # (Auto) Neut # (Auto) Lymph # (Auto) [place] # (Auto) Eos # (Auto) Baso # (Auto) PT INR Sodium Potassium Chloride Carbon Dioxide Anion Gap BUN Creatinine Est Cr Clr Drug Dosing Est GFR ( Amer) Est GFR (Non-Af Amer) BUN/Creatinine Ratio Glucose POC Glucose 308 H 237 H Calcium Magnesium TSH Urine Color Yellow Urine Appearance Clear Urine pH 6.0 Ur Specific [place] 1.012 Urine Protein Negative Urine Glucose (UA) Negative Urine Ketones Negative Urine Blood Negative Urine Nitrite Negative Urine Bilirubin Negative Urine Urobilinogen Negative Ur Leukocyte Esterase Negative 04/24/18 04/24/18 04/24/18 07:38 07:38 07:38 WBC 13.51 H RBC 2.86 L Hgb 9.2 L Hct 27.4 L MCV 95.8 MCH 32.2 MCHC 33.6 RDW Std Deviation 48.5 H RDW Coeff of Daquan 13.9 Plt Count 200 MPV 9.7 Immature Gran % (Auto) 0.3 Neut % (Auto) 81.3 Lymph % (Auto) 11.0 [place] % (Auto) 7.4 Eos % (Auto) 0.0 Baso % (Auto) 0.0 Immature Gran # (Auto) 0.04 H Neut # (Auto) 10.99 H Lymph # (Auto) 1.48 [place] # (Auto) 1.00 H Eos # (Auto) 0.00 Baso # (Auto) 0.00 PT 10.9 INR 1.1 Sodium 141 Potassium 4.3 Chloride 105 Carbon Dioxide 31 Anion Gap 4.0 BUN 17 Creatinine 1.12 Est Cr Clr Drug Dosing 98.6 Est GFR ( Amer) 78.9 Est GFR (Non-Af Amer) 68.1 BUN/Creatinine Ratio 15.3 Glucose 125 H POC Glucose Calcium 8.6 Magnesium 2.1 TSH Urine Color Urine Appearance Urine pH Ur Specific [place]wen Urine Protein Urine Glucose (UA) Urine Ketones Urine Blood Urine Nitrite Urine Bilirubin Urine Urobilinogen Ur Leukocyte Esterase 04/24/18 04/24/18 04/24/18 07:38 11:22 16:44 WBC 13.17 H RBC 2.95 L Hgb 9.6 L Hct 28.7 L MCV 97.3 MCH 32.5 MCHC 33.4 RDW Std Deviation 49.5 H RDW Coeff of Daquan 14.1 Plt Count 200 MPV 9.8 Immature Gran % (Auto) 0.2 Neut % (Auto) 74.8 Lymph % (Auto) 15.9 [place] % (Auto) 8.8 Eos % (Auto) 0.2 Baso % (Auto) 0.1 Immature Gran # (Auto) 0.03 H Neut # (Auto) 9.85 H Lymph # (Auto) 2.09 [place] # (Auto) 1.16 H Eos # (Auto) 0.03 Baso # (Auto) 0.01 PT INR Sodium Potassium Chloride Carbon Dioxide Anion Gap BUN Creatinine Est Cr Clr Drug Dosing Est GFR ( Amer) Est GFR (Non-Af Amer) BUN/Creatinine Ratio Glucose POC Glucose 152 H 118 H Calcium Magnesium TSH Urine Color Urine Appearance Urine pH Ur Specific [place]wen Urine Protein Urine Glucose (UA) Urine Ketones Urine Blood Urine Nitrite Urine Bilirubin Urine Urobilinogen Ur Leukocyte Esterase 04/24/18 04/24/18 16:44 16:44 WBC RBC Hgb Hct MCV MCH MCHC RDW Std Deviation RDW Coeff of Daquan Plt Count MPV Immature Gran % (Auto) Neut % (Auto) Lymph % (Auto) [place] % (Auto) Eos % (Auto) Baso % (Auto) Immature Gran # (Auto) Neut # (Auto) Lymph # (Auto) [place] # (Auto) Eos # (Auto) Baso # (Auto) PT INR Sodium 143 Potassium 4.2 Chloride 109 H Carbon Dioxide 31 Anion Gap 4.0 BUN 14 Creatinine 1.34 Est Cr Clr Drug Dosing 82.4 Est GFR ( Amer) 63.5 Est GFR (Non-Af Amer) 54.8 BUN/Creatinine Ratio 10.7 Glucose 137 H POC Glucose Calcium 8.4 L Magnesium 1.8 TSH Cancelled Urine Color Urine Appearance Urine pH Ur Specific [place]wen Urine Protein Urine Glucose (UA) Urine Ketones Urine Blood Urine Nitrite Urine Bilirubin Urine Urobilinogen Ur Leukocyte Esterase
[2018-04-24] MEDS: MULTIVITAMIN TAB PO SCH (14:50)
[2018-04-24] MEDS: ATORVASTATIN 40 MG TAB PO SCH (14:50)
[2018-04-24] MEDS: predniSONE 20 MG TAB PO SCH (14:50)
[2018-04-24] MEDS: DOCUSATE SODIUM 100 MG CAP PO SCH ×2 (14:51→21:08)
[2018-04-24] MEDS: FOLIC ACID 1 MG TAB PO SCH (14:51)
[2018-04-24] MEDS: THIAMINE HCL 100 MG TAB PO SCH (14:51)
[2018-04-24] MEDS: VERAPAMIL HCL 120 MG TABCR PO SCH (14:51)
[2018-04-24] MEDS: DOXYCYCLINE HYCLATE 100 MG CAP PO SCH ×2 (14:51→21:08)
[2018-04-24] MEDS: SUCRALFATE 1 GM/10 ML UDC PO SCH ×3 (14:53→22:39)
[2018-04-24] MEDS ORDERED: METOPROLOL TARTRATE 1 MG/ML VIAL IV ONE (16:34)
[2018-04-24] MEDS ORDERED: SODIUM CHLORIDE 0.9% 500 ML IV SCH (16:45)
[2018-04-24 16:54] LABS: Basophils # (auto) 0.01 K/uL (0-0.2); Basophils % (auto) 0.1 %; Eosinophils # (auto) 0.03 K/uL (0-0.5); Eosinophils % (auto) 0.2 %; Hematocrit (blood only) 28.7 % (42-52); Hemoglobin 9.6 g/dL (14.0-18.0); Immature Granulocytes # (auto) 0.03 K/uL (0.00-0.02); Immature Granulocytes % (auto) 0.2 %; Lymphocytes # (auto) 2.09 K/uL (1.2-3.4); Lymphocytes % (auto) 15.9 %; Mean Corpuscular Volume 97.3 fL (80-100); Mean Platelet Volume 9.8 fL (7.4-10.4); Monocytes # (auto) 1.16 K/uL (0.11-0.59); Monocytes % (auto) 8.8 %; Neutrophils # (auto) 9.85 K/uL (1.4-6.5); Neutrophils % (auto) 74.8 %; Platelet Count 200 K/uL (130-400); RDW Coefficient of Variation 14.1 % (11.5-14.5); RDW Standard Deviation 49.5 fL (36.4-46.3); Red Blood Count 2.95 M/uL (4.7-6.1); White Blood Count 13.17 K/uL (4.8-10.8)
[2018-04-24] MEDS ORDERED: ADENOSINE IV SOLN 3 MG/ML 2 ML VIAL IV STA (17:00)
[2018-04-24 17:11] LABS: BUN Creatinine Ratio 10.7 (10-20); Calcium 8.4 mg/dl (8.5-10.1); Creatinine Clr Calc Pharmacy 82.4 ml/min; Est GFR (African American) 63.5; Est GFR (Non-African American) 54.8; Magnesium 1.8 mg/dl (1.8-2.4); Potassium 4.2 mmol/L (3.5-5.1)
[2018-04-24] MEDS ORDERED: [UNRECOGNIZED DRUG - OTHER] INH SCH (17:30)
[2018-04-24] MEDS ORDERED: VILANTEROL INH SCH (17:30)
[2018-04-24 17:31] LABS: Mean Corpuscular Hgb Conc 33.4 g/dL (32-36)
[2018-04-24 17:44] LABS: Troponin I < 0.015 ng/ml (0-0.045)
[2018-04-24] MEDS: FLUTICASONE/SALMETEROL (ADVAIR) 500/50 INH 14 PUFF INH SCH (18:30)
[2018-04-24] MEDS: LEVALBUTEROL HCL 0.63 MG/3 ML NEB NEB SCH (19:46)
[2018-04-24] MEDS ORDERED: Nursing to Pharmacy Communication ONE (20:31)
[2018-04-25] MEDS: LEVALBUTEROL HCL 0.63 MG/3 ML NEB NEB SCH ×4 (01:49→19:29)
[2018-04-25] MEDS: IPRATROPIUM BROMIDE NEB SOLN 0.02% 2.5 ML VIAL INH SCH ×4 (01:49→19:29)
[2018-04-25] MEDS: SODIUM CHLORIDE 0.9% 1000ML 1,000 ML IV SCH (05:40)
[2018-04-25] MEDS: PANTOprazole 40 MG in DEXTROSE 5% 100 ML IV SCH ×4 (05:41→20:17)
[2018-04-25] MEDS: LEVOTHYROXINE SODIUM 25 MCG TABLET PO SCH (05:47)
[2018-04-25] MEDS ORDERED: Nursing to Pharmacy Communication ONE (06:26)
[2018-04-25 07:13] LABS: Hematocrit (blood only) 29.9 % (42-52); Hemoglobin 9.8 g/dL (14.0-18.0); Immature Granulocytes # (auto) 0.07 K/uL (0.00-0.02); Immature Granulocytes % (auto) 0.6 %; Lymphocytes # (auto) 1.34 K/uL (1.2-3.4); Lymphocytes % (auto) 11.1 %; Mean Corpuscular Hgb Conc 32.8 g/dL (32-36); Mean Platelet Volume 9.8 fL (7.4-10.4); Monocytes # (auto) 0.62 K/uL (0.11-0.59); Monocytes % (auto) 5.1 %; Neutrophils # (auto) 10.09 K/uL (1.4-6.5); Neutrophils % (auto) 83.2 %; Platelet Count 215 K/uL (130-400); RDW Coefficient of Variation 14.1 % (11.5-14.5); RDW Standard Deviation 50.7 fL (36.4-46.3); Red Blood Count 3.02 M/uL (4.7-6.1); White Blood Count 12.12 K/uL (4.8-10.8)
[2018-04-25 07:53] LABS: BUN Creatinine Ratio 14.3 (10-20); Calcium 8.6 mg/dl (8.5-10.1); Creatinine Clr Calc Pharmacy 58.2 ml/min; Est GFR (African American) 66.5; Est GFR (Non-African American) 57.4; Potassium 4.6 mmol/L (3.5-5.1)
[2018-04-25] MEDS: VERAPAMIL HCL 120 MG TABCR PO SCH ×3 (08:17→23:30)
[2018-04-25] MEDS: DOXYCYCLINE HYCLATE 100 MG CAP PO SCH ×2 (08:17→20:09)
[2018-04-25] MEDS: FOLIC ACID 1 MG TAB PO SCH (08:17)
[2018-04-25] MEDS: predniSONE 20 MG TAB PO SCH (08:18)
[2018-04-25] MEDS: FLUTICASONE/SALMETEROL (ADVAIR) 500/50 INH 14 PUFF INH SCH ×2 (08:18→20:10)
[2018-04-25] MEDS: ATORVASTATIN 40 MG TAB PO SCH (08:18)
[2018-04-25] MEDS: DOCUSATE SODIUM 100 MG CAP PO SCH ×2 (08:18→21:30)
[2018-04-25] MEDS: MULTIVITAMIN TAB PO SCH (08:18)
[2018-04-25] MEDS: SUCRALFATE 1 GM/10 ML UDC PO SCH ×4 (08:18→21:31)
[2018-04-25] MEDS: GABAPENTIN 600 MG TAB PO SCH ×2 (08:19→20:10)
[2018-04-25] MEDS: INSULIN ASPART 100 UNITS/ML 3 ML PEN SC SCH ×4 (08:19→21:30)
[2018-04-25] MEDS: NICOTINE 21 MG/24 HR TDSY TD SCH (08:20)
[2018-04-25] MEDS: INSULIN GLARGINE SOLOSTAR 100 UNITS/ML 3 ML PEN SQ SCH (08:20)
[2018-04-25] MEDS ORDERED: PERFLUTREN LIPID MICROSPHERE (DEFINITY) IV ONE (08:58)
[2018-04-25] MEDS: THIAMINE HCL 100 MG TAB PO SCH (09:39)
[2018-04-25] MEDS ORDERED: INSULIN GLARGINE SOLOSTAR 100 UNITS/ML 3 ML PEN SQ SCH (12:00)
--- NOTE | 2018-04-25 19:25 | Hospitalist Progress Note ---
Date of Service April 25, 2018 Assessment & Plan (1) Respiratory failure, acute and chronic: acute on Chronic obstructive pulmonary disease exacerbation Tobacco abuse CXR 1. Advanced emphysema. 2. There is developing patchy airspace consolidation at the right lung base, new from February of 2018. (The appearance is typical for pneumonia/aspiration pneumonitis as per radiology read) --Continues to improve gradually Remains on 4 L of nasal cannula Continue doxycycline Continue prednisone taper Continue nebs but decrease the albuterol to 0.6 to avoid SVTs Ordered Adv[facility] Episode of [facility]T Patient has a history of atrial tachycardia and paroxysmal A. fib Resolved with 1 dose of IV adenosine Reduced dose of levalbuterol TSH low, levothyroxine reduced to 25 mcg daily from 50 mg daily Will need repeat TFTs in outpatient 4-6 weeks Echocardiogram noted, essentially unchanged compared to February 2018 Already on verapamil p.o. No recurrence of SVT, continue to monitor telemetry Paroxysmal atrial fibrillation -was last discharged with Verapamil 180 mg daily, currently on 120 mg daily Coumadin reversed, INR is 1.1 in light of GI bleed Monitor closely Possible GI bleed -supratherapeutic INR has been reversed CT abdomen 1. No evidence of bowel obstruction. No evidence of free air 2. Bilateral nephrolithiasis 3. Normal appendix no evidence of acute diverticulitis 4. Superior endplate T12 compression fracture 5. Emphysema and lower lobe nodular airspace opacities, statistically infectious/inflammatory. -[place] neurologist Dr. Camp consulted, in light of COPD exacerbation EGD not recommended at this time Recommend medical management including Protonix drip and sucralfate 4 times daily for now Monitor closely Dr. Camp recommends to hold Coumadin at this point --Will complete 3 days of IV Protonix drip Then convert to Protonix twice a day and continue sulfate Continue to hold anti-coagulation at this time per GI service Hypertension Blood pressure stable monitor while on verapamil DM2, diet controlled, well controlled as of recent hemoglobin A1c of 6.3 last February 2018 -Basal insulin, ISS BG goal 140-180 Hypothyroidism -Continue on Synthroid. Alcohol use no signs of alcohol withdrawl, on gabapentin withdrawal protocol as precautionary DVT prophylaxis. SCDs space only in light of GI bleed Disposition pending lives at home Will need PT and OT evaluations Subjective Follow-up for COPD exacerbation, GI bleed Seen resting in bedside chair, comfortable States he feels better compared to yesterday Breathing interval change to improve Cough nonproductive Denies chest pain, palpitations, dizziness No abdominal pain, no BM today, no nausea Denies other symptoms Physical Exam Vital Signs (Past 24 Hours): Last Vital Signs Temp 36.4 C L 04/25/18 15:51 Pulse 70 04/25/18 15:51 Resp 16 04/25/18 15:51 BP 126/71 04/25/18 15:51 Pulse Ox 98 04/25/18 15:51 Physical Exam: General- oriented x 3, not in distress, speaks in sentences with no effort or accessory muscle use Eyes- anicteric Neck- no JVD Lungs-distant breath sounds bilaterally, but clear today no crackles or wheezing noted Heart- normal rate, regular rhythm; no murmurs Abdomen- normal bowel sounds, nondistended, soft, nontender Extremities- no pretibial edema, no calf tenderness Neuro- alert, oriented x 3; no gross focal neurologic deficits Skin- warm & dry Results & Data Laboratory Results Laboratory Results - last 24 hr 04/24/18 04/25/18 04/25/18 21:06 06:54 06:54 WBC 12.12 H RBC 3.02 L Hgb 9.8 L Hct 29.9 L MCV 99.0 MCH 32.5 MCHC 32.8 RDW Std Deviation 50.7 H RDW Coeff of Daquan 14.1 Plt Count 215 MPV 9.8 Immature Gran % (Auto) 0.6 Neut % (Auto) 83.2 Lymph % (Auto) 11.1 [place] % (Auto) 5.1 Eos % (Auto) 0.0 Baso % (Auto) 0.0 Immature Gran # (Auto) 0.07 H Neut # (Auto) 10.09 H Lymph # (Auto) 1.34 [place] # (Auto) 0.62 H Eos # (Auto) 0.00 Baso # (Auto) 0.00 Sodium 142 Potassium 4.6 Chloride 108 H Carbon Dioxide 31 Anion Gap 3.0 BUN 19 H Creatinine 1.29 Est Cr Clr Drug Dosing 58.2 Est GFR ( Amer) 66.5 Est GFR (Non-Af Amer) 57.4 BUN/Creatinine Ratio 14.3 Glucose 175 H POC Glucose 236 H Calcium 8.6 04/25/18 04/25/18 04/25/18 07:28 11:04 16:18 WBC RBC Hgb Hct MCV MCH MCHC RDW Std Deviation RDW Coeff of Daquan Plt Count MPV Immature Gran % (Auto) Neut % (Auto) Lymph % (Auto) [place] % (Auto) Eos % (Auto) Baso % (Auto) Immature Gran # (Auto) Neut # (Auto) Lymph # (Auto) [place] # (Auto) Eos # (Auto) Baso # (Auto) Sodium Potassium Chloride Carbon Dioxide Anion Gap BUN Creatinine Est Cr Clr Drug Dosing Est GFR ( Amer) Est GFR (Non-Af Amer) BUN/Creatinine Ratio Glucose POC Glucose 189 H 278 H 259 H Calcium
[2018-04-25] MEDS ORDERED: dilTIAZem HCl 5 MG/ML 5 ML VIAL IV STA (22:22)
[2018-04-25] MEDS ORDERED: DIGOXIN 500 MCG/2 ML AMP IV ONE (22:23)
[2018-04-25] MEDS ORDERED: SODIUM CHLORIDE 0.45 % 1,000 ML IV SCH (22:30)
[2018-04-25] MEDS ORDERED: DIGOXIN 250 MCG in SYRINGE 9 ML IV ONE (22:30)
[2018-04-25 23:30] LABS: Partial Thromboplastin Ratio 0.8
[2018-04-25 23:34] LABS: Calcium 8.1 mg/dl (8.5-10.1); Magnesium 1.5 mg/dl (1.8-2.4); Potassium 4.2 mmol/L (3.5-5.1)
[2018-04-25] MEDS: MAGNESIUM SULFATE / D5W 1 GM/100 ML BAG IV SCH (23:49)
[2018-04-25 23:56] LABS: BUN Creatinine Ratio 13.2 (10-20); Creatinine Clr Calc Pharmacy 67.6 ml/min; Est GFR (African American) 79.8; Est GFR (Non-African American) 68.8
[2018-04-26] MEDS: MAGNESIUM SULFATE / D5W 1 GM/100 ML BAG IV SCH (00:46)
[2018-04-26] MEDS: PANTOprazole 40 MG in DEXTROSE 5% 100 ML IV SCH ×3 (00:50→09:32)
[2018-04-26] MEDS: IPRATROPIUM BROMIDE NEB SOLN 0.02% 2.5 ML VIAL INH SCH ×4 (01:47→19:50)
[2018-04-26] MEDS: LEVALBUTEROL HCL 0.63 MG/3 ML NEB NEB SCH ×4 (01:47→19:50)
[2018-04-26] MEDS: LEVOTHYROXINE SODIUM 25 MCG TABLET PO SCH (05:39)
[2018-04-26] MEDS: FOLIC ACID 1 MG TAB PO SCH (07:46)
[2018-04-26] MEDS: FLUTICASONE/SALMETEROL (ADVAIR) 500/50 INH 14 PUFF INH SCH ×2 (07:46→21:00)
[2018-04-26] MEDS: DOXYCYCLINE HYCLATE 100 MG CAP PO SCH ×2 (07:46→21:01)
[2018-04-26] MEDS: ATORVASTATIN 40 MG TAB PO SCH (07:47)
[2018-04-26] MEDS: THIAMINE HCL 100 MG TAB PO SCH (07:47)
[2018-04-26] MEDS: VERAPAMIL HCL 120 MG TABCR PO SCH ×2 (07:47→21:01)
[2018-04-26] MEDS: MULTIVITAMIN TAB PO SCH (07:48)
[2018-04-26] MEDS: predniSONE 20 MG TAB PO SCH (07:48)
[2018-04-26] MEDS: NICOTINE 21 MG/24 HR TDSY TD SCH (07:49)
[2018-04-26] MEDS: DOCUSATE SODIUM 100 MG CAP PO SCH ×2 (07:51→21:04)
[2018-04-26] MEDS: INSULIN GLARGINE SOLOSTAR 100 UNITS/ML 3 ML PEN SQ SCH (07:56)
[2018-04-26] MEDS: INSULIN ASPART 100 UNITS/ML 3 ML PEN SC SCH ×4 (07:58→21:02)
[2018-04-26] MEDS: SUCRALFATE 1 GM/10 ML UDC PO SCH ×4 (10:08→21:01)
[2018-04-26] MEDS ORDERED: XOPENEX/ATROVENT 1.25mg/0.5MG NEB COMBO NEB PRN (11:36)
[2018-04-26] MEDS ORDERED: IPRATROPIUM BROMIDE NEB SOLN 0.02% 2.5 ML VIAL INH PRN (11:45)
[2018-04-26] MEDS ORDERED: LEVALBUTEROL 1.25MG/0.5ML NEB INH PRN (11:45)
[2018-04-26] MEDS ORDERED: FUROSEMIDE 20 MG in SYRINGE 0 ML IV STA (11:46)
[2018-04-26 12:11] LABS: Basophils # (auto) 0.01 K/uL (0-0.2); Basophils % (auto) 0.1 %; Eosinophils # (auto) 0.04 K/uL (0-0.5); Eosinophils % (auto) 0.3 %; Hematocrit (blood only) 29.2 % (42-52); Hemoglobin 9.6 g/dL (14.0-18.0); Immature Granulocytes # (auto) 0.08 K/uL (0.00-0.02); Immature Granulocytes % (auto) 0.6 %; Lymphocytes # (auto) 1.11 K/uL (1.2-3.4); Lymphocytes % (auto) 8.4 %; Mean Corpuscular Hgb Conc 32.9 g/dL (32-36); Mean Corpuscular Volume 99.7 fL (80-100); Mean Platelet Volume 9.8 fL (7.4-10.4); Monocytes # (auto) 0.66 K/uL (0.11-0.59); Neutrophils # (auto) 11.31 K/uL (1.4-6.5); Neutrophils % (auto) 85.6 %; Nucleated RBC # (auto) 0.02 K/uL (0-0); Nucleated RBC % (auto) 0.1 %; Platelet Count 221 K/uL (130-400); RDW Coefficient of Variation 14.2 % (11.5-14.5); Red Blood Count 2.93 M/uL (4.7-6.1); White Blood Count 13.21 K/uL (4.8-10.8)
--- NOTE | 2018-04-26 12:26 | XRay Report ---
SINGLE VIEW CHEST CLINICAL HISTORY: Follow-up right basilar consolidation. FINDINGS: 2 AP, portable, upright chest radiographs are compared to study dated 04/23/2018 and correla [place] with chest CT dated 02/21/2018. The examination is degraded by portable technique and patient rota tion. The cardiomediastinal silhouette is unremarkable comment noting atherosclerotic calcification of the thoracic aorta. Enlargement of the central pulmonary arteries suggests pulmonary artery hypert ension. Advanced emphysema and chronic interstitial thickening are similar to previous. Patchy airspa ce consolidation is again seen at the right lung base. Trace right pleural effusion is suspected. No pneumothorax is seen. The bony thorax is grossly intact. IMPRESSION: 1. Advanced emphysema. 2. There is unchanged appearance of patchy airspace consolidation at the right lung base with a trace right pleural effusion. The appearance remains typical for pneumonia/aspiration pneumonitis. Continu ed follow-up to complete resolution is recommended. Electronically signed by: Fahad Hammond M.D. 04/26/2018 12:25 PM
[2018-04-26 12:32] LABS: BUN Creatinine Ratio 11.8 (10-20); Calcium 8.3 mg/dl (8.5-10.1); Creatinine Clr Calc Pharmacy 68.8 ml/min; Est GFR (African American) 81.5; Est GFR (Non-African American) 70.4; Potassium 4.1 mmol/L (3.5-5.1)
[2018-04-26] MEDS ORDERED: GABAPENTIN 600 MG TAB PO SCH (17:20)
--- NOTE | 2018-04-26 17:44 | Hospitalist Progress Note ---
Date of Service April 26, 2018 Assessment & Plan (1) Respiratory failure, acute and chronic: acute on Chronic obstructive pulmonary disease exacerbation Tobacco abuse CXR 1. Advanced emphysema. 2. There is developing patchy airspace consolidation at the right lung base, new from February of 2018. (The appearance is typical for pneumonia/aspiration pneumonitis as per radiology read) --Positive wheezing this afternoon 1 dose of Lasix 20 mg IV given Remains on 4 L of nasal cannula Continue doxycycline Continue prednisone taper Continue nebs but decrease the albuterol to 0.6 to avoid SVTs Ordered Advair while waiting for patient's usual [facility] pulmonary service recommendations Episode of SVT Patient has a history of atrial tachycardia and paroxysmal A. fib Resolved with 1 dose of IV adenosine Reduced dose of levalbuterol TSH low, levothyroxine reduced to 25 mcg daily from 50 mg daily Will need repeat TFTs in outpatient 4-6 weeks Echocardiogram noted, essentially unchanged compared to February 2018 Verapamil p.o. twice a day Continue to monitor Paroxysmal atrial fibrillation Continue verapamil Coumadin reversed, INR is 1.1 in light of GI bleed Monitor closely Possible GI bleed -supratherapeutic INR has been reversed CT abdomen 1. No evidence of bowel obstruction. No evidence of free air 2. Bilateral nephrolithiasis 3. Normal appendix no evidence of acute diverticulitis 4. Superior endplate T12 compression fracture 5. Emphysema and lower lobe nodular airspace opacities, statistically infectious/inflammatory. -[place] neurologist Dr. Camp consulted, in light of COPD exacerbation EGD not recommended at this time Recommend medical management including Protonix drip and sucralfate 4 times daily for now Monitor closely Dr. Camp recommends to hold Coumadin at this point --Patient completed 3 days of IV Protonix drip, transitioned to Protonix IV twice a day Continue sucralfate Continue to hold anti-coagulation at this time per GI service Hypertension Blood pressure stable monitor while on verapamil DM2, diet controlled, well controlled as of recent hemoglobin A1c of 6.3 last February 2018 -Basal insulin, ISS BG goal 140-180 Hypothyroidism -Continue on Synthroid. Alcohol use no signs of alcohol withdrawl, on gabapentin withdrawal protocol as precaut ionary DVT prophylaxis. SCDs space only in light of GI bleed Disposition pending lives at home Will need PT and OT evaluations Subjective Follow-up for respiratory failure, COPD exacerbation Overnight developed SVT Resolved with Cardizem IV After he also had some shortness of breath Resolved with additional albuterol Seen resting in bed, comfortable, not in distress Has some mild dyspnea this afternoon Chest pain, dizziness Other symptoms Physical Exam Vital Signs (Past 24 Hours): Last Vital Signs Temp 36.7 C 04/26/18 15:06 Pulse 73 04/26/18 15:06 Resp 16 04/26/18 15:06 BP 121/65 04/26/18 15:06 Pulse Ox 97 04/26/18 15:06 Results & Data Laboratory Results General- oriented x 3, not in distress, speaks in sentences with no effort or accessory muscle use Eyes- anicteric Neck- no JVD Lungs-faint scattered wheeze bilaterally, mild rales, Heart- normal rate, regular rhythm; no murmurs Abdomen- normal bowel sounds, nondistended, soft, nontender Extremities- no pretibial edema, no calf tenderness Neuro- alert, oriented x 3; no gross focal neurologic deficits Skin- warm & dry Diagnostic Findings Laboratory Results - last 24 hr 04/25/18 04/25/18 04/25/18 21:26 22:59 22:59 WBC RBC Hgb Hct MCV MCH MCHC RDW Std Deviation RDW Coeff of Daquan Plt Count MPV Immature Gran % (Auto) Neut % (Auto) Lymph % (Auto) [place] % (Auto) Eos % (Auto) Baso % (Auto) Immature Gran # (Auto) Neut # (Auto) Lymph # (Auto) [place] # (Auto) Eos # (Auto) Baso # (Auto) Absolute Nucleated RBC Nucleated RBC % (auto) APTT 21.0 PTT Ratio 0.8 Sodium 139 Potassium 4.2 Chloride 106 Carbon Dioxide 31 Anion Gap 2.0 L BUN 15 Creatinine 1.11 Est Cr Clr Drug Dosing 67.6 Est GFR ( Amer) 79.8 Est GFR (Non-Af Amer) 68.8 BUN/Creatinine Ratio 13.2 Glucose 257 H POC Glucose 277 H Calcium 8.1 L Magnesium 1.5 L 04/26/18 04/26/18 04/26/18 07:40 11:35 11:42 WBC 13.21 H RBC 2.93 L Hgb 9.6 L Hct 29.2 L MCV 99.7 MCH 32.8 MCHC 32.9 RDW Std Deviation 51.0 H RDW Coeff of Daquan 14.2 Plt Count 221 MPV 9.8 Immature Gran % (Auto) 0.6 Neut % (Auto) 85.6 Lymph % (Auto) 8.4 [place] % (Auto) 5.0 Eos % (Auto) 0.3 Baso % (Auto) 0.1 Immature Gran # (Auto) 0.08 H Neut # (Auto) 11.31 H Lymph # (Auto) 1.11 L [place] # (Auto) 0.66 H Eos # (Auto) 0.04 Baso # (Auto) 0.01 Absolute Nucleated RBC 0.02 H Nucleated RBC % (auto) 0.1 APTT PTT Ratio Sodium Potassium Chloride Carbon Dioxide Anion Gap BUN Creatinine Est Cr Clr Drug Dosing Est GFR ( Amer) Est GFR (Non-Af Amer) BUN/Creatinine Ratio Glucose POC Glucose 179 H 206 H Calcium Magnesium 04/26/18 04/26/18 11:42 16:07 WBC RBC Hgb Hct MCV MCH MCHC RDW Std Deviation RDW Coeff of Daquan Plt Count MPV Immature Gran % (Auto) Neut % (Auto) Lymph % (Auto) [place] % (Auto) Eos % (Auto) Baso % (Auto) Immature Gran # (Auto) Neut # (Auto) Lymph # (Auto) [place] # (Auto) Eos # (Auto) Baso # (Auto) Absolute Nucleated RBC Nucleated RBC % (auto) APTT PTT Ratio Sodium 140 Potassium 4.1 Chloride 107 Carbon Dioxide 30 Anion Gap 3.0 BUN 13 Creatinine 1.09 Est Cr Clr Drug Dosing 68.8 Est GFR ( Amer) 81.5 Est GFR (Non-Af Amer) 70.4 BUN/Creatinine Ratio 11.8 Glucose 189 H POC Glucose 310 H Calcium 8.3 L Magnesium 2.0
[2018-04-26] MEDS: PANTOprazole 40 MG in SYRINGE 0 ML IV SCH (21:01)
[2018-04-27] MEDS: LEVALBUTEROL HCL 0.63 MG/3 ML NEB NEB SCH ×4 (01:44→20:07)
[2018-04-27] MEDS: IPRATROPIUM BROMIDE NEB SOLN 0.02% 2.5 ML VIAL INH SCH ×4 (01:45→20:07)
[2018-04-27] MEDS: LEVOTHYROXINE SODIUM 25 MCG TABLET PO SCH (06:05)
[2018-04-27] MEDS: FLUTICASONE/SALMETEROL (ADVAIR) 500/50 INH 14 PUFF INH SCH ×2 (07:32→20:42)
[2018-04-27] MEDS: FOLIC ACID 1 MG TAB PO SCH (07:33)
[2018-04-27] MEDS: DOXYCYCLINE HYCLATE 100 MG CAP PO SCH ×2 (07:33→20:42)
[2018-04-27] MEDS: NICOTINE 21 MG/24 HR TDSY TD SCH (07:34)
[2018-04-27] MEDS: THIAMINE HCL 100 MG TAB PO SCH (07:35)
[2018-04-27] MEDS: MULTIVITAMIN TAB PO SCH (07:35)
[2018-04-27] MEDS: VERAPAMIL HCL 120 MG TABCR PO SCH ×2 (07:35→20:43)
[2018-04-27] MEDS: ATORVASTATIN 40 MG TAB PO SCH (07:36)
[2018-04-27] MEDS: DOCUSATE SODIUM 100 MG CAP PO SCH ×2 (07:38→20:44)
[2018-04-27] MEDS: INSULIN GLARGINE SOLOSTAR 100 UNITS/ML 3 ML PEN SQ SCH (07:52)
[2018-04-27] MEDS: INSULIN ASPART 100 UNITS/ML 3 ML PEN SC SCH ×4 (07:52→20:41)
[2018-04-27] MEDS: PANTOprazole 40 MG in SYRINGE 0 ML IV SCH ×2 (08:21→20:40)
[2018-04-27] MEDS: SUCRALFATE 1 GM/10 ML UDC PO SCH ×4 (09:39→20:42)
[2018-04-27 12:46] LABS: BUN Creatinine Ratio 17.3 (10-20); Calcium 8.4 mg/dl (8.5-10.1); Creatinine Clr Calc Pharmacy 75.8 ml/min; Est GFR (African American) 91.6; Potassium 3.9 mmol/L (3.5-5.1)
[2018-04-27] MEDS ORDERED: methylPREDNISolone 40 MG in SYRINGE 0 ML IV ONE (19:15)
[2018-04-27] MEDS ORDERED: FUROSEMIDE 20 MG in SYRINGE 0 ML IV ONE (19:30)
[2018-04-27] MEDS: ACETAMINOPHEN 325 MG TAB PO PRN (19:43)
[2018-04-28] MEDS: IPRATROPIUM BROMIDE NEB SOLN 0.02% 2.5 ML VIAL INH SCH ×4 (02:04→19:43)
[2018-04-28] MEDS: LEVALBUTEROL HCL 0.63 MG/3 ML NEB NEB SCH ×4 (02:04→19:43)
[2018-04-28] MEDS: LEVOTHYROXINE SODIUM 25 MCG TABLET PO SCH (05:10)
--- NOTE | 2018-04-28 07:26 | Hospitalist Progress Note ---
Date of Service April 28, 2018 delayed entry date of service 04/27/18 Assessment & Plan (1) Respiratory failure, acute and chronic: acute on Chronic obstructive pulmonary disease exacerbation Tobacco abuse CXR 1. Advanced emphysema. 2. There is developing patchy airspace consolidation at the right lung base, new from February of 2018. (The appearance is typical for pneumonia/aspiration pneumonitis as per radiology read) --Positive wheezing this afternoon 1 dose of Lasix 20 mg IV given Remains on 4 L of nasal cannula given Lasix IV and Solumedrol 1 dose Continue doxycycline Continue prednisone taper Continue nebs but decrease the albuterol to 0.6 to avoid SVTs Ordered Advair while waiting for patient's usual [facility] pulmonary service recommendations Episode of SVT Patient has a history of atrial tachycardia and paroxysmal A. fib Resolved with 1 dose of IV adenosine Reduced dose of levalbuterol TSH low, levothyroxine reduced to 25 mcg daily from 50 mg daily Will need repeat TFTs in outpatient 4-6 weeks Echocardiogram noted, essentially unchanged compared to February 2018 Verapamil p.o. twice a day Continue to monitor Paroxysmal atrial fibrillation Continue verapamil Coumadin reversed, INR is 1.1 in light of GI bleed Monitor closely Possible GI bleed -supratherapeutic INR has been reversed CT abdomen 1. No evidence of bowel obstruction. No evidence of free air 2. Bilateral nephrolithiasis 3. Normal appendix no evidence of acute diverticulitis 4. Superior endplate T12 compression fracture 5. Emphysema and lower lobe nodular airspace opacities, statistically infectious/inflammatory. -[place] neurologist Dr. Camp consulted, in light of COPD exacerbation EGD not recommended at this time Recommend medical management including Protonix drip and sucralfate 4 times daily for now Monitor closely Dr. Camp recommends to hold Coumadin at this point --Patient completed 3 days of IV Protonix drip, transitioned to Protonix IV twice a day Continue sucralfate Continue to hold anti-coagulation at this time per GI service Hypertension Blood pressure stable monitor while on verapamil DM2, diet controlled, well controlled as of recent hemoglobin A1c of 6.3 last February 2018 -Basal insulin, ISS BG goal 140-180 Hypothyroidism -Continue on Synthroid. Alcohol use no signs of alcohol withdrawl, on gabapentin withdrawal protocol as precautionary DVT prophylaxis. SCDs space only in light of GI bleed Disposition pending lives at home Will need PT and OT evaluations Subjective Follow-up for respiratory failure, COPD exacerbation seen resting in bed, comfortable does report some dyspnea, wheeze cough about the same no other symptom Physical Exam Vital Signs (Past 24 Hours): Last Vital Signs Temp 36.5 C 04/28/18 02:32 Pulse 69 04/28/18 06:58 Resp 14 04/28/18 06:58 BP 123/69 04/28/18 02:32 Pulse Ox 99 04/28/18 06:58 Physical Exam: General- oriented x 3, not in distress, speaks in sentences with no effort or accessory muscle use Eyes- anicteric Neck- no JVD Lungs- mild wheeze bilaterally Heart- normal rate, regular rhythm; no murmurs Abdomen- normal bowel sounds, nondistended, soft, nontender Extremities-mild pretibial edema, no calf tenderness Neuro- alert, oriented x 3; no gross focal neurologic deficits Skin- warm & dry Results & Data Laboratory Results all noted and reviewed
[2018-04-28] MEDS: PANTOprazole 40 MG in SYRINGE 0 ML IV SCH (08:51)
[2018-04-28] MEDS: NICOTINE 21 MG/24 HR TDSY TD SCH (08:51)
[2018-04-28] MEDS: FLUTICASONE/SALMETEROL (ADVAIR) 500/50 INH 14 PUFF INH SCH ×2 (08:52→20:22)
[2018-04-28] MEDS: ATORVASTATIN 40 MG TAB PO SCH (08:52)
[2018-04-28] MEDS: THIAMINE HCL 100 MG TAB PO SCH (08:52)
[2018-04-28] MEDS: SUCRALFATE 1 GM/10 ML UDC PO SCH ×4 (08:52→21:07)
[2018-04-28] MEDS: VERAPAMIL HCL 120 MG TABCR PO SCH ×2 (08:52→20:23)
[2018-04-28] MEDS: INSULIN GLARGINE SOLOSTAR 100 UNITS/ML 3 ML PEN SQ SCH (08:52)
[2018-04-28] MEDS: INSULIN ASPART 100 UNITS/ML 3 ML PEN SC SCH ×4 (08:52→20:26)
[2018-04-28] MEDS: MULTIVITAMIN TAB PO SCH (08:52)
[2018-04-28] MEDS: FOLIC ACID 1 MG TAB PO SCH (08:52)
[2018-04-28] MEDS: DOCUSATE SODIUM 100 MG CAP PO SCH ×2 (08:53→20:29)
[2018-04-28] MEDS: DOXYCYCLINE HYCLATE 100 MG CAP PO SCH ×2 (08:53→20:24)
[2018-04-28 14:55] LABS: Hematocrit (blood only) 30.1 % (42-52)
--- NOTE | 2018-04-28 17:03 | Pulmonology Progress Note ---
Date of Service April 28, 2018 Assessment & Plan (1) Respiratory failure, acute and chronic: Impression: 1. COPD, home O2 dependent, prednisone dependent as well. 2. The patient recently was admitted to the hospital and went to [facility] return back again to our institution with COPD exacerbation. 3. Nicotine addiction and ongoing smoking. 4. Acute on chronic hypoxic respiratory failure on 4 L of oxygen. Plan: 1. The patient showing signs of conversion to pulmonary fibrosis. 2. Noted that the patient was taken off the Solu-Medrol, I placed him back again on prednisone 40 mg p.o. daily. Will taper by 10 mg every week until his prednisone at 10 mg daily. 3. The patient is not interested in going back to [facility], he wants to go home, likely he would smoke again. 4. I encouraged the patient to quit smoking however he failed multiple times. He should continue to attempt. His lung reserve is very poor. 5. Placement per the principal team. 6. Continue bronchodilators and oxygen. Thank you, will follow as needed. Subjective The patient continued to have shortness of breath, even walking to the bathroom, he does have occasional wheezing, no cough no sputum production. Physical Exam Vital Signs (Past 24 Hours): Last Vital Signs Temp 36.6 C 04/28/18 15:16 Pulse 65 04/28/18 16:36 Resp 18 04/28/18 15:16 BP 136/70 04/28/18 15:16 Pulse Ox 99 04/28/18 15:16 Physical Exam: Vital signs are stable, O2 saturation 99% on 4 L, this is at rest. He does have occasional wheezing, abdomen is benign, trace edema in the periphery, no oral thrush, no lymphadenopathy in the neck area, no JVD. Results & Data Laboratory Results Labs were reviewed personally. Diagnostic Findings Chest x-ray reviewed personally also the patient does have extensive COPD with conversion to normal fibrosis.
[2018-04-28] MEDS: predniSONE 20 MG TAB PO SCH (17:57)
[2018-04-28] MEDS: PANTOprazole 40 MG TAB PO SCH (20:24)
--- NOTE | 2018-04-28 23:48 | Hospitalist Progress Note ---
Date of Service April 28, 2018 Assessment & Plan (1) Respiratory failure, acute and chronic: acute on Chronic obstructive pulmonary disease exacerbation Tobacco abuse CXR 1. Advanced emphysema. 2. There is developing patchy airspace consolidation at the right lung base, new from February of 2018. (The appearance is typical for pneumonia/aspiration pneumonitis as per radiology read) --Positive wheezing this afternoon 1 dose of Lasix 20 mg IV given Remains on 4 L of nasal cannula given Lasix IV and Solumedrol 1 dose--improved Continue doxycycline Continue prednisone taper Continue nebs Ordered Advair while waiting for patient's usual [facility] Appreciate pulmonary service recommendations Episode of SVT Patient has a history of atrial tachycardia and paroxysmal A. fib Resolved with 1 dose of IV adenosine Reduced dose of levalbuterol TSH low, levothyroxine reduced to 25 mcg daily from 50 mg daily Will need repeat TFTs in outpatient 4-6 weeks Echocardiogram noted, essentially unchanged compared to February 2018 Verapamil p.o. twice a day Continue to monitor Paroxysmal atrial fibrillation Continue verapamil Coumadin reversed, INR is 1.1 in light of GI bleed Monitor closely Possible GI bleed -supratherapeutic INR has been reversed CT abdomen 1. No evidence of bowel obstruction. No evidence of free air 2. Bilateral nephrolithiasis 3. Normal appendix no evidence of acute diverticulitis 4. Superior endplate T12 compression fracture 5. Emphysema and lower lobe nodular airspace opacities, statistically infectious/inflammatory. -[place] neurologist Dr. Camp consulted, in light of COPD exacerbation EGD not recommended at this time Recommend medical management including Protonix drip and sucralfate 4 times daily for now Monitor closely Dr. Camp recommends to hold Coumadin at this point --Patient completed 3 days of IV Protonix drip, transitioned to Protonix IV twice a day Continue sucralfate Continue to hold anti-coagulation at this time per GI service Hypertension Blood pressure stable monitor while on verapamil DM2, diet controlled, well controlled as of recent hemoglobin A1c of 6.3 last February 2018 -Basal insulin, ISS BG goal 140-180 Hypothyroidism -Continue on Synthroid. Alcohol use no signs of alcohol withdrawl, on gabapentin withdrawal protocol as precaut ionary DVT prophylaxis. SCDs space only in light of GI bleed Disposition pending lives at home Will need PT and OT evaluations Subjective Follow-up for respiratory failure, COPD exacerbation seen resting in bed, comfortable states he feels improved compared to previous day less dyspnea, would like to ambulate in the hallway no other symptoms Physical Exam Vital Signs (Past 24 Hours): Last Vital Signs Temp 36.7 C 04/28/18 19:06 Pulse 77 04/28/18 19:44 Resp 22 04/28/18 19:44 BP 149/76 H 04/28/18 19:06 Pulse Ox 97 04/28/18 19:44 Physical Exam: General- oriented x 3, not in distress, speaks in sentences with no effort or accessory muscle use Eyes- anicteric Neck- no JVD Lungs- distant breath sounds, intermittent wheeze Heart- normal rate, regular rhythm; no murmurs Abdomen- normal bowel sounds, nondistended, soft, nontender Extremities- no pretibial edema, no calf tenderness Neuro- alert, oriented x 3; no gross focal neurologic deficits Skin- warm & dry Results & Data Laboratory Results Laboratory Results - last 24 hr 04/28/18 04/28/18 04/28/18 07:16 11:14 14:41 Hgb 10.0 L Hct 30.1 L POC Glucose 212 H 213 H 04/28/18 04/28/18 16:08 20:14 Hgb Hct POC Glucose 111 H 151 H
[2018-04-29] MEDS: ACETAMINOPHEN 325 MG TAB PO PRN (01:42)
[2018-04-29] MEDS: LEVALBUTEROL HCL 0.63 MG/3 ML NEB NEB SCH ×4 (02:02→19:48)
[2018-04-29] MEDS: IPRATROPIUM BROMIDE NEB SOLN 0.02% 2.5 ML VIAL INH SCH ×4 (02:02→19:47)
[2018-04-29] MEDS: LEVOTHYROXINE SODIUM 25 MCG TABLET PO SCH (06:28)
[2018-04-29] MEDS: INSULIN GLARGINE SOLOSTAR 100 UNITS/ML 3 ML PEN SQ SCH (08:20)
[2018-04-29] MEDS: INSULIN ASPART 100 UNITS/ML 3 ML PEN SC SCH ×4 (08:20→21:18)
[2018-04-29] MEDS: THIAMINE HCL 100 MG TAB PO SCH (08:22)
[2018-04-29] MEDS: predniSONE 20 MG TAB PO SCH (08:22)
[2018-04-29] MEDS: ATORVASTATIN 40 MG TAB PO SCH (08:23)
[2018-04-29] MEDS: PANTOprazole 40 MG TAB PO SCH ×2 (08:23→21:18)
[2018-04-29] MEDS: MULTIVITAMIN TAB PO SCH (08:23)
[2018-04-29] MEDS: VERAPAMIL HCL 120 MG TABCR PO SCH ×2 (08:23→21:18)
[2018-04-29] MEDS: FOLIC ACID 1 MG TAB PO SCH (08:23)
[2018-04-29] MEDS: NICOTINE 21 MG/24 HR TDSY TD SCH (08:24)
[2018-04-29] MEDS: DOXYCYCLINE HYCLATE 100 MG CAP PO SCH ×2 (08:24→21:18)
[2018-04-29] MEDS: FLUTICASONE/SALMETEROL (ADVAIR) 500/50 INH 14 PUFF INH SCH ×2 (08:25→21:18)
[2018-04-29] MEDS: DOCUSATE SODIUM 100 MG CAP PO SCH ×2 (09:24→21:20)
[2018-04-29] MEDS: SUCRALFATE 1 GM/10 ML UDC PO SCH ×4 (09:25→21:18)
[2018-04-29] MEDS ORDERED: LEVALBUTEROL HCL 0.63 MG/3 ML NEB NEB STA (09:57)
[2018-04-29] MEDS ORDERED: IPRATROPIUM BROMIDE NEB SOLN 0.02% 2.5 ML VIAL NEB STA (09:58)
--- NOTE | 2018-04-29 18:13 | Pulmonology Progress Note ---
Date of Service April 29, 2018 Assessment & Plan (1) Respiratory failure, acute and chronic: Impression: 1. COPD, home O2 dependent, prednisone dependent as well. 2. The patient recently was admitted to the hospital and went to [facility] return back again to our institution with COPD exacerbation. 3. Nicotine addiction and ongoing smoking. 4. Acute on chronic hypoxic respiratory failure on 4 L of oxygen. Plan: 1. The patient showing signs of conversion to pulmonary fibrosis. 2. Continue prednisone 40 mg p.o. daily, taper by 10 mg every week. 3. The patient is not interested in going back to [facility], he wants to go home, likely he will continue to smoke. 4. I encouraged the patient to quit smoking however he failed multiple times. 5. He is not interested in remaining continuing Chantix, he does have it at home but he is not willing to quit smoking. This is his main problem which will likely cause him near future admission to the hospital with COPD exacerbation. 6. Continue bronchodilators and oxygen. Thank you, will follow as needed. Subjective The patient continued to have shortness of breath even with minimal exertion, but he is determined to go home in the morning, he wants to go home and smoke ci garettes, he said that he does have a nicotine patch and Chantix at home but he is not willing to quit at this moment. He has been frequent flyer to our institution with admission almost every 2 weeks due to COPD exacerbation. Physical Exam Vital Signs (Past 24 Hours): Last Vital Signs Temp 36.3 C L 04/29/18 15:17 Pulse 74 04/29/18 15:17 Resp 20 04/29/18 15:17 BP 167/76 H 04/29/18 15:17 Pulse Ox 99 04/29/18 15:17 Physical Exam: Vital signs remained stable, O2 saturation 99% on 4 L at rest, S1-S2 regular rate and rhythm, lungs are distant and diminished breath sounds, abdomen is benign, no edema, skin changes due to steroids, no oral thrush. Results & Data Laboratory Results No new labs. Diagnostic Findings No new imaging.
[2018-04-30] MEDS: LEVALBUTEROL HCL 0.63 MG/3 ML NEB NEB SCH ×3 (01:44→13:07)
[2018-04-30] MEDS: IPRATROPIUM BROMIDE NEB SOLN 0.02% 2.5 ML VIAL INH SCH ×3 (01:44→13:07)
[2018-04-30] MEDS: LEVOTHYROXINE SODIUM 25 MCG TABLET PO SCH (06:22)
[2018-04-30] MEDS: INSULIN ASPART 100 UNITS/ML 3 ML PEN SC SCH (08:28)
[2018-04-30] MEDS: INSULIN GLARGINE SOLOSTAR 100 UNITS/ML 3 ML PEN SQ SCH (08:29)
[2018-04-30] MEDS: predniSONE 20 MG TAB PO SCH (08:35)
[2018-04-30] MEDS: PANTOprazole 40 MG TAB PO SCH (08:35)
[2018-04-30] MEDS: MULTIVITAMIN TAB PO SCH (08:36)
[2018-04-30] MEDS: FOLIC ACID 1 MG TAB PO SCH (08:36)
[2018-04-30] MEDS: ATORVASTATIN 40 MG TAB PO SCH (08:36)
[2018-04-30] MEDS: THIAMINE HCL 100 MG TAB PO SCH (08:36)
[2018-04-30] MEDS: FLUTICASONE/SALMETEROL (ADVAIR) 500/50 INH 14 PUFF INH SCH (08:37)
[2018-04-30] MEDS: DOXYCYCLINE HYCLATE 100 MG CAP PO SCH (08:37)
[2018-04-30] MEDS: NICOTINE 21 MG/24 HR TDSY TD SCH (08:38)
[2018-04-30] MEDS: SUCRALFATE 1 GM/10 ML UDC PO SCH (09:01)
[2018-04-30] MEDS: VERAPAMIL HCL 120 MG TABCR PO SCH (09:01)
[2018-04-30] MEDS: DOCUSATE SODIUM 100 MG CAP PO SCH (09:01)
--- NOTE | 2018-04-30 10:35 | Hospitalist Progress Note ---
Date of Service April 30, 2018 Delayed entry date of service April 29, 2018 Assessment & Plan (1) Respiratory failure, acute and chronic: acute on Chronic obstructive pulmonary disease exacerbation Tobacco abuse CXR 1. Advanced emphysema. 2. There is developing patchy airspace consolidation at the right lung base, new from February of 2018. (The appearance is typical for pneumonia/aspiration pneumonitis as per radiology read) --Positive wheezing this afternoon 1 dose of Lasix 20 mg IV given Remains on 4 L of nasal cannula given Lasix IV and Solumedrol 1 dose--improved Continue doxycycline Continue prednisone taper Continue nebs Ordered Advair while waiting for patient's usual [facility] Appreciate pulmonary service recommendations Improving Anticipate discharge home tomorrow Episode of SVT Patient has a history of atrial tachycardia and paroxysmal A. fib Resolved with 1 dose of IV adenosine Reduced dose of levalbuterol TSH low, levothyroxine reduced to 25 mcg daily from 50 mg daily Will need repeat TFTs in outpatient 4-6 weeks Echocardiogram noted, essentially unchanged compared to February 2018 Verapamil p.o. twice a day Continue to monitor Paroxysmal atrial fibrillation Continue verapamil Coumadin reversed, INR is 1.1 in light of GI bleed Monitor closely Possible GI bleed -supratherapeutic INR has been reversed CT abdomen 1. No evidence of bowel obstruction. No evidence of free air 2. Bilateral nephrolithiasis 3. Normal appendix no evidence of acute diverticulitis 4. Superior endplate T12 compression fracture 5. Emphysema and lower lobe nodular airspace opacities, statistically infectious/inflammatory. -Help Desk Technician Dr. Camp consulted, in light of COPD exacerbation EGD not recommended at this time Recommend medical management including Protonix drip and sucralfate 4 times daily for now Monitor closely Dr. Camp recommends to hold Coumadin at this point --Patient completed 3 days of IV Protonix drip, transitioned to Protonix Twice a day Continue sucralfate Hypertension Blood pressure stable monitor while on verapamil DM2, diet controlled, well controlled as of recent hemoglobin A1c of 6.3 last February 2018 -Basal insulin, ISS BG goal 140-180 Hypothyroidism -Continue on Synthroid. Alcohol use no signs of alcohol withdrawl, on gabapentin withdrawal protocol as precautionary DVT prophylaxis. SCDs space only in light of GI bleed Disposition pending lives at home Patient declines physical therapy and rehab Would like to go home with home health services Subjective Follow-up for respiratory failure, COPD exacerbation Resting in bed comfortable Not in distress Breathing continues to improve Less cough Like to ambulate more No other symptoms Physical Exam Vital Signs (Past 24 Hours): Last Vital Signs Temp 36.5 C 04/30/18 07:31 Pulse 64 04/30/18 07:31 Resp 21 04/30/18 07:31 BP 127/71 04/30/18 07:31 Pulse Ox 99 04/30/18 07:31 Physical Exam: General- oriented x 3, not in distress, speaks in sentences with no effort or accessory muscle use Eyes- anicteric Neck- no JVD Lungs-Distant but clear presents bilaterally, no crackles or wheezing Heart- normal rate, regular rhythm; no murmurs Abdomen- normal bowel sounds, nondistended, soft, nontender Extremities- no pretibial edema, no calf tenderness Neuro- alert, oriented x 3; no gross focal neurologic deficits Skin- warm & dry Results & Data Laboratory Results All noted and reviewed
--- NOTE | 2018-04-30 10:40 | Hospitalist Progress Note ---
Date of Service April 30, 2018 Assessment & Plan (1) Respiratory failure, acute and chronic: acute on Chronic obstructive pulmonary disease exacerbation Tobacco abuse CXR 1. Advanced emphysema. 2. There is developing patchy airspace consolidation at the right lung base, new from February of 2018. (The appearance is typical for pneumonia/aspiration pneumonitis as per radiology read) Pulmonary consulted Patient placed on doxycycline, IV steroids, nebulizers scheduled Patient showed gradual improvement Transition to prednisone taper Completed antibiotic course of doxycycline times 7 days Pulmonary cleared patient for discharge Discharge plan: Prednisone 40 mg x3 more days to complete 1 week of therapy, then taper by 10 mg weekly Continue scheduled nebulizers Continue usual [facility] Patient encouraged to quit smoking Follow-up with PCP in 3-5 days Episode of SVT Patient has a history of atrial tachycardia and paroxysmal A. fib Resolved with 1 dose of IV adenosine Reduced dose of levalbuterol TSH low, levothyroxine reduced to 25 mcg daily from 50 mg daily Will need repeat TFTs in outpatient 4-6 weeks Echocardiogram noted, essentially unchanged compared to February 2018 Verapamil p.o. twice a day No recurrence since patient was placed on his usual verapamil twice a day Paroxysmal atrial fibrillation Continue verapamil Coumadin reversed, INR is 1.1 in light of GI bleed CHADSVASC at least 3 GI cleared patient to resume Coumadin Will need to monitor INR more closely to prevent supratherapeutic INR We will start with Coumadin 3 mg p.o. daily, repeat INR on Saturday care of home health nurse, patient will need to establish Coumadin clinic Possible GI bleed -supratherapeutic INR More than [address] abdomen 1. No evidence of bowel obstruction. No evidence of free air 2. Bilateral nephrolithiasis 3. Normal appendix no evidence of acute diverticulitis 4. Superior endplate T12 compression fracture 5. Emphysema and lower lobe nodular airspace opacities, statistically infectious/inflammatory. -Head Of Quality Dr. Camp consulted, in light of COPD exacerbation EGD not recommended at this time Recommend medical management including Protonix drip and sucralfate 4 times daily for now Monitor closely Discussed with Dr. Camp,Patient completed 3 days of IV Protonix drip, transition to Protonix twice a day Completed 7 days of Sucralfate hemoglobin has remained stable around 10 during admission Discuss[address] with Dr. Camp discussed with neurologist, okay to resume Coumadin, but will need close monitoring of INR Continue Protonix 40 mg p.o. twice a day, and sulfa x3 more days, monitor H&H during follow-up with PCP Hypertension Blood pressure stable DM2, diet controlled, well controlled as of recent hemoglobin A1c of 6.3 last February 2018 -Basal insulin, ISS BG goal 140-180 Hypothyroidism -Continue on Synthroid. Alcohol use no signs of alcohol withdrawl, on gabapentin withdrawal protocol as precautionary Advised to quit alcohol use Disposition lives at home Patient declines physical therapy inpatient rehab Would like to go home with home health services Subjective Follow-up for respiratory failure, COPD exacerbation Seen resting in bed, comfortable not in distress Tolerated ambulate in hallways this morning States breathing is much better No cough, no phlegm Denies other symptoms States he is ready would like to be discharged today Physical Exam Vital Signs (Past 24 Hours): Last Vital Signs Temp 36.5 C 04/30/18 07:31 Pulse 64 04/30/18 07:31 Resp 21 04/30/18 07:31 BP 127/71 04/30/18 07:31 Pulse Ox 99 04/30/18 07:31 Physical Exam: General- oriented x 3, not in distress, speaks in sentences with no effort or accessory muscle use Eyes- anicteric Neck- no JVD Lungs- Breath sounds, but clear, no wheezing or crackles Heart- normal rate, regular rhythm; no murmurs Abdomen- normal bowel sounds, nondistended, soft, nontender Extremities- no pretibial edema, no calf tenderness Neuro- alert, oriented x 3; no gross focal neurologic deficits Skin- warm & dry Results & Data Laboratory Results Laboratory Results - last 24 hr 04/29/18 04/29/18 04/29/18 11:09 16:14 20:20 POC Glucose 193 H 98 194 H 04/30/18 07:33 POC Glucose 107 H
--- NOTE | 2018-04-30 11:30 | Discharge Summary ---
Date of Service April 30, 2018 Admission HPI Per Admitting Provider History obtained from patient and records. Medical history significant for chronic respiratory failure secondary to COPD on home O2, ongoing tobacco abuse, hypertension, A. fib on Coumadin, alcohol abuse as per records, DM2, diet controlled, esophageal stenosis status post dilatation, history of TIA as per records, chronic anemia (baseline hemoglobin of 11) Recent confinement last February 2018 for COPD exacerbation. Patient discharged to [facility] facility where he stayed for 3 weeks. Patient discharged home about 2 weeks ago. Started smoking again. Patient noticed worsening shortness of breath on exertion, junky cough symptoms. Denies aspiration, fever, chills. Denies chest pain, fluid retention. Patient also noted achy right-sided abdominal pain going to the back, dark stools noted the last 4 days. At the ER, patient given IV Solu-Medrol, Ceftriaxone and Azithromycin for COPD exacerbation. Medical History as above Surgical History : Eye surgery, urologic procedures Family History : Heart disease, diabetes Personal/Social history : One pack daily, alcohol abuse as per records, disabled Admission Exam Per Admitting Provider Vital Signs (Past 24 Hours): Last Vital Signs Temp 36.3 C L 04/23/18 01:39 Pulse 95 H 04/23/18 04:48 Resp 16 04/23/18 04:48 BP 98/60 L 04/23/18 04:48 Pulse Ox 94 04/23/18 04:48 Physical Exam: GENERAL: Comfortable, no respiratory distress, tremulous SKIN: Pallor, warm HEENT: Bespectacled, pale palpebral conjunctivae, no ptosis, dry buccal mucosa, nasal cannula in place NECK : Supple, no tenderness CHEST : Decreased breath sounds, expiratory wheezes, no tenderness HEART : RRR, no obvious murmurs ABDOMEN: Some distention, nontender Rectal exam: Intact sphincter, dark stool, heme-positive EXTREMITIES : No LE swelling/tenderness, no other conspicuous deformities noted NEUROLOGIC : Coherent, no facial asymmetry, tremulous, gait and stance not assessed Principal Diagnosis COPD EXACERBATION, MELENA POSSIBLE UPPER GI BLEED IN THE SETTING OF SUPRATHERAPEUTIC INR Discharge Exam Vital Signs (Past 24 Hours): Last Vital Signs Temp 36.5 C 04/30/18 07:31 Pulse 64 04/30/18 07:31 Resp 21 04/30/18 07:31 BP 127/71 04/30/18 07:31 Pulse Ox 99 04/30/18 07:31 Physical Exam: General- oriented x 3, not in distress, speaks in sentences with no effort or accessory muscle use Eyes- anicteric Neck- no JVD Lungs- Breath sounds, but clear, no wheezing or crackles Heart- normal rate, regular rhythm; no murmurs Abdomen- normal bowel sounds, nondistended, soft, nontender Extremities- no pretibial edema, no calf tenderness Neuro- alert, oriented x 3; no gross focal neurologic deficits Skin- warm & dry Discharge Data Allergies Allergy/AdvReac Type Severity Reaction Status Date / Time Poultry Allergy Intermediate TURKEY - Verified 02/21/18 02:24 HIVES, RASH, NAUSEA Consultations 04/23/18 04:09 ED Decision to Admit Stat 04/23/18 05:14 Consult Gastroenterology Routine Consult Pulmonology Routine 04/23/18 05:17 Consult Case Management - Discharge Planning Routine Ordered Studies 04/23/18 05:07 CT abd pelvis IV con only Urgent CT DOSE: 349.53 mGy.cm FINDINGS: Lower chest: There is pulmonary emphysema. There are right lower lobe nodular airspace opacities including an irregular 2 cm right lower lung zone nodule. The findings are likely inflammatory. A two-month follow-up studies subsequent to antibiotic therapy is recommended. Small nodules are also visualized the left lung base, also likely inflammatory Liver: The contrast-enhanced liver is normal in size, contour, and attenuation. There is no intrahepatic biliary ductal dilatation. The hepatic veins and portal veins are patent. Gallbladder: Unremarkable. Spleen: Normal in size and attenuation. Pancreas: Unremarkable. Adrenal glands: There is nodular thickening of the left adrenal gland, similar to the prior study. Kidneys: There are bilateral renal calculi. No solid renal masses are visualized. There is no hydronephrosis. Bowel: There are no transition zones indicate bowel obstruction. There is no acute diverticulitis. The appendix appears normal. Peritoneum: There is no intraperitoneal free air or abdominal ascites. Vasculature: The abdominal aorta is normal in course and caliber. Adenopathy: None. Pelvic viscera: The bladder, and pelvic viscera are unremarkable. Skeletal structures: There is a superior endplate T12 compression fracture. IMPRESSION: 1. No evidence of bowel obstruction. No evidence of free air 2. Bilateral nephrolithiasis 3. Normal appendix no evidence of acute diverticulitis 4. Superior endplate T12 compression fracture 5. Emphysema and lower lobe nodular airspace opacities, statistically infectious/inflammatory. A follow-up chest CT subsequent to antibiotic therapy is recommended SINGLE VIEW CHEST CLINICAL HISTORY: Follow-up right basilar consolidation. FINDINGS: 2 AP, portable, upright chest radiographs are compared to study dated 04/23/2018 and correlated with chest CT dated 02/21/2018. The examination is degraded by portable technique and patient rotation. The cardiomediastinal silhouette is unremarkable comment noting atherosclerotic calcification of the thoracic aorta. Enlargement of the central pulmonary arteries suggests pulmonary artery hypertension. Advanced emphysema and chronic interstitial thickening are similar to previous. Patchy airspace consolidation is again seen at the right lung base. Trace right pleural effusion is suspected. No pneumothorax is seen. The bony thorax is grossly intact. IMPRESSION: 1. Advanced emphysema. 2. There is unchanged appearance of patchy airspace consolidation at the right lung base with a trace right pleural effusion. The appearance remains typical for pneumonia/aspiration pneumonitis. Continued follow-up to complete resolution is recommended. Electronically signed by: Fahad Hammond M.D. 04/26/2018 12:25 PM Hospital Course (1) Respiratory failure, acute and chronic: Acute on Chronic obstructive pulmonary disease exacerbation Tobacco abuse CXR 1. Advanced emphysema. 2. There is developing patchy airspace consolidation at the right lung base, new from February of 2018. (The appearance is typical for pneumonia/aspiration pneumonitis as per radiology read) CT abd: Emphysema and lower lobe nodular airspace opacities, statistically infectious/inflammatory. A follow-up chest CT subsequent to antibiotic therapy is recommended Pulmonary consulted Dr Abbasi/Dr Phillip Patient placed on doxycycline, IV steroids, nebulizers scheduled Patient showed gradual improvement Transition to prednisone taper Completed antibiotic course of doxycycline times 7 days Pulmonary cleared patient for discharge Discharge plan: Prednisone 40 mg x3 more days to complete 1 week of therapy, then taper by 10 mg weekly Continue scheduled nebulizers Continue usual Brio Patient encouraged to quit smoking Follow-up with PCP in 3-5 days Possible GI bleed -supratherapeutic INR More than [address] abdomen 1. No evidence of bowel obstruction. No evidence of free air 2. Bilateral nephrolithiasis 3. Normal appendix no evidence of acute diverticulitis 4. Superior endplate T12 compression fracture 5. Emphysema and lower lobe nodular airspace opacities, statistically infectious/inflammatory. -Snow Removal/Plowing Dr. Camp consulted, in light of COPD exacerbation EGD not recommended at this time Recommend medical management including Protonix drip and sucralfate 4 times daily for now Monitor closely Discussed with Dr. Camp,Patient completed 3 days of IV Protonix drip, transition to Protonix twice a day Completed 7 days of Sucralfate hemoglobin has remained stable around 10 during admission Discussed with Dr. Camp discussed with neurologist, okay to resume Coumadin, but will need close monitoring of INR Continue Protonix 40 mg p.o. twice a day, and sulfa x3 more days, monitor H&H during follow-up with PCP Paroxysmal atrial fibrillation Continue verapamil Coumadin reversed, INR is 1.1 in light of GI bleed CHADSVASC at least 3 GI cleared patient to resume Coumadin Will need to monitor INR more closely to prevent supratherapeutic INR We will start with Coumadin 3 mg p.o. daily, repeat INR on Saturday care of home health nurse, patient will need to establish Coumadin clinic Episode of SVT Patient has a history of atrial tachycardia and paroxysmal A. fib Resolved with 1 dose of IV adenosine Reduced dose of levalbuterol TSH low, levothyroxine reduced to 25 mcg daily from 50 mg daily Will need repeat TFTs in outpatient 4-6 weeks Echocardiogram noted, essentially unchanged compared to February 2018 Verapamil p.o. twice a day No recurrence since patient was placed on his usual verapamil twice a day Hypertension Blood pressure stable DM2, diet controlled, well controlled as of recent hemoglobin A1c of 6.3 last February 2018 -Basal insulin, ISS BG goal 140-180 Hypothyroidism -Continue on Synthroid. Alcohol use no signs of alcohol withdrawl, on gabapentin withdrawal protocol as precautionary Advised to quit alcohol use Disposition lives at home Patient declines physical therapy inpatient rehab Would like to go home with home health services Total Time Total Time Spent Total Time Spent (In Minutes): 50 minutes Discharge Plan Discharge Items Patient Disposition: Home - Self-Care Reason For Visit: UGIB, RESP FAILURE Discharge Diagnosis: COPD exacerbation, upper GI bleed suspected in the setting of Coumadin use and supratherapeutic INR Discharge Goals: Diagnostic testing and Therapeutic intervention Activity: As commented below Activity Comment: No heavy exertion, always use oxygen 4 L via nasal cannula Lifting: Wait until after follow-up appointment Exercise/Sports: Wait until after follow-up appointment Driving/Machine Use Comment: No driving Non-emergency contact: Primary Care Provider Call non-emergency contact if: you have any medication questions, your symptoms worsen, your pain is not controlled and you have a fever Follow-up/Referrals: Derrell Schmidt MD [Primary Care Provider] - 05/05/18 11:05 am Diet: Carb Consistent or DM2 and Heart Healthy Addtl Provider Instructions: Please review new medication list and follow instructions very carefully. You Will be taking Coumadin which is a blood thinner. Return to ER immediately if with any head trauma for evaluation. If you have signs of bleeding, call primary care physician immediately. Blood work: INR to be done on Wednesday May 02, 2018 by ipadio. You will need to follow-up with the Coumadin clinic closely. Clinic will be calling you for the appointment and advice on Coumadin dose. Call primary care physician or return to the ER immediately if with worsening symptoms. Prescriptions: New verapamil 240 mg capsule,ext rel. pellets 24 hr 240 mg PO DAILY Qty: 30 RF: 1 pantoprazole 40 mg Tablet,Delayed Release (Dr/Ec) 40 mg PO BID 30 Days Qty: 60 RF: 1 sucralfate 100 mg/mL Suspension 1 gm PO 1000,1400,1800,2200 3 Days Qty: 120 RF: 0 levothyroxine [Synthroid] 25 mcg Tablet 25 mcg PO DAILYBB 30 Days Qty: 30 RF: 1 prednisone 10 mg tablet 10 mg PO DAILY Qty: 55 RF: 0 Continued Breo Ellipta 100-25 mcg/dose Blister With Device 1 inh INHALATION DAILY RF: 0 atorvastatin 40 mg tablet 40 mg PO QAM RF: 0 thiamine HCl (vitamin B1) 100 mg Tablet 100 mg PO QAM RF: 0 docusate sodium [Colace] 100 mg Capsule 100 mg PO BID RF: 0 gabapentin 300 mg capsule 300 mg PO HS RF: 0 folic acid 1 mg Tablet 1 mg PO QAM RF: 0 furosemide 20 mg tablet 20 - 40 mg PO DAILY PRN (Reason: Edema) RF: 0 metformin 1,000 mg Tablet Extended Release 24hr 1,000 mg PO DAILY RF: 0 Changed albuterol sulfate 2.5 mg /3 mL (0.083 %) Solution For Nebulization 2.5 mg INHALATION TID Qty: 0 RF: 0 ipratropium bromide 0.02 % solution 0.5 mg Inhalation TID Qty: 0 RF: 0 Discontinued omeprazole 20 mg Capsule,Delayed Release(Dr/Ec) 20 mg PO DAILY RF: 0 levothyroxine 50 mcg tablet 50 mcg PO QAM RF: 0 azithromycin 250 mg tablet 500 mg PO 3XWK RF: 0 Chantix Continuing Month Box 1 mg tablet 1 mg PO BID RF: 0 verapamil 120 mg tablet extended release 120 mg PO DAILY RF: 0 lisinopril 20 mg Tablet 20 mg PO DAILY RF: 0 Combivent Respimat 20-100 mcg/actuation Mist 1 puff INHALATION Q6 MDD 3 doses a day PRN (Reason: Shortness Of Breath Or Wheezing) RF: 0 Stand-Alone Forms: [facility] Discharge Orders: Discharge Order (Routine); Ordered 04/30/18 Ordered By: Semaj Hammond Admission Data Admit Date/Time: 04/23/18 05:13 Attending Provider: Semaj Hammond Admit Provider: Dell Hamilton Primary Care Provider: Derrell Schmidt Other Providers: Wero Arita ; Dell Hamilton ; Kirt Cmap ; Roscoe Abbasi ; Farzad Wise ; Lizbeth Singh ; Fahad Bowles Jessica L. ; Dell Odonnell ; Helen Oconnor ; Andrei Chan ; Rachell Duran ; Guille Phillip ; Naveen Meneses ; Puneet Palencia Service: Telemetry Other Interventions: Discharge Summary Assessment (RN) Last Done: 04/30/18 11:39 DC Date/Time DO NOT enter until pt leaves facility: 04/30/18 14:50
--- NOTE | 2018-05-06 09:36 | Coding Query ---
CODING QUERY To promote full compliance with coding requirements relating to patient care, provider participation is requested in all cases of manipulator operator uncertainty. Please assist us with the question(s) below: Coding Question(s): The H&P documents, " UGIB secondary to Coumadin coagulopathy" and shows the "IV vitamin K to reverse coagulopathy" and the Discharge Summary documents "MELENA POSSIBLE UPPER GI BLEED IN THE SETTING OF SUPRATHERAPEUTIC INR". Please clarify below, in your clinical opinion, regarding the Supratherapeutic INR and Coumadin Coagulopathy documentation. ( ) Coumadin Coagulopathy with Subtherapeudic INR ( ) Subtherapeudic INR with NO Coumadin Coagulopathy Physician's Response(s): Coumadin Coagulopathy with Supratherapeutic INR Thanks... Thank you Ann Marie Purvis Principal Diagnosis: "that condition established after study, to be chiefly responsible for occasioning the admission of the patient to the hospital for care." Co-Existing Principal Diagnosis: "when two or more diagnoses equally meet the criteria for principal diagnosis as determined by the circumstances of admission, diagnostic work up, and/or therapy provided, and the Alphabetic Index, Tabular List, or another coding guideline does not provide sequencing direction, any one of the diagnoses may be sequenced first." "When the physician has documented what appears to be a current diagnosis in the body of the record, but has not included the diagnosis in the final diagnostic statement, the physician should be asked whether the diagnosis should be added." ([facility] 2 QTR90. p3-4) ANNEMARIE
--- NOTE | 2018-05-19 08:35 | Coding Query ---
CODING QUERY To promote full compliance with coding requirements relating to patient care, provider participation is requested in all cases of circuit breaker supervisor uncertainty. Please assist us with the question(s) below: Coding Question(s): Your assistance is needed to clarify documentation regarding Pneumonia in this record. The ER H&P documents Pneumonia and the Pulmonary Consutation on 04/23/18 documents, "I suspect the right lower lobe infiltrate represents mucoid impaction with a pneumonitis" and the Progress Notes and the Discharge Summary show documentation regarding the CXR of findings of developing patchy airspace consolidation at the right lung base, new from February 2018 and says that the appearance is typical for pneumonia/aspiration pneumonitis as per radiology read). Please clarify below, in your clinical opinion, regarding the Pneumonia. ( ) Community Acquired Pneumonia VS Aspiration Pneumonia ( ) Possible Community Acquired Pneumonia and Aspiration Pneumonia ( ) Possible Aspiration Pneumonia (X ) Community Acquired Pneumonia with NO Aspiration Pneumonia - Aspiration Pneumonia is ruled-out ( ) No Pneumonia - it is ruled-out Physician's Response(s): Thank you Ann Marie Purvis Principal Diagnosis: "that condition established after study, to be chiefly responsible for occasioning the admission of the patient to the hospital for care." Co-Existing Principal Diagnosis: "when two or more diagnoses equally meet the criteria for principal diagnosis as determined by the circumstances of admission, diagnostic work up, and/or therapy provided, and the Alphabetic Index, Tabular List, or another coding guideline does not provide sequencing direction, any one of the diagnoses may be sequenced first." "When the physician has documented what appears to be a current diagnosis in the body of the record, but has not included the diagnosis in the final diagnostic statement, the physician should be asked whether the diagnosis should be added." ([facility] 2 QTR90. p3-4) ANNEMARIE
== END 2018-04-30 14:50 | disposition home or self-care (01) | DRG 377 ==
LOC: ED 01:32 → 2W 05:13 → SUATTDRO 05:13 → 2W 06:39 → 2S 04-24 17:15

== ENCOUNTER 2019-02-13 06:37 | Inpatient (IN) ==
[2019-02-13] MEDS ORDERED: HYDROmorphone INJ 0.5 MG/0.5 ML SYR IV PRN ×2 (06:56)
[2019-02-13] MEDS ORDERED: ALBUT/IPRATROP 3MG/0.5MG NEB 3 ML VIAL NEB STA (06:57)
[2019-02-13] MEDS ORDERED: LACTATED RINGER'S 1,000 ML IV SCH (07:00)
[2019-02-13 07:36] LABS: Basophils # (auto) 0.04 K/uL (0-0.2); Basophils % (auto) 0.6 %; Eosinophils # (auto) 0.27 K/uL (0-0.5); Hematocrit (blood only) 35.6 % (42-52); Hemoglobin 11.9 g/dL (14.0-18.0); Immature Granulocytes # (auto) 0.02 K/uL (0.00-0.02); Immature Granulocytes % (auto) 0.3 %; Lymphocytes # (auto) 1.57 K/uL (1.2-3.4); Lymphocytes % (auto) 23.2 %; Mean Corpuscular Hemoglobin 33.1 pg (25-34); Mean Corpuscular Hgb Conc 33.4 g/dL (32-36); Mean Corpuscular Volume 98.9 fL (80-100); Mean Platelet Volume 10.5 fL (7.4-10.4); Monocytes # (auto) 0.64 K/uL (0.11-0.59); Monocytes % (auto) 9.5 %; Neutrophils # (auto) 4.23 K/uL (1.4-6.5); Neutrophils % (auto) 62.4 %; Platelet Count 135 K/uL (130-400); RDW Coefficient of Variation 12.7 % (11.5-14.5); RDW Standard Deviation 45.8 fL (36.4-46.3); White Blood Count 6.77 K/uL (4.8-10.8)
[2019-02-13 07:48] LABS: INR 0.9 (0.9-1.1); Partial Thromboplastin Ratio 0.8; Partial Thromboplastin Time 22.8 Seconds (21.0-31.0); Prothrombin Time 9.4 Seconds (9.0-12.0)
[2019-02-13 07:52] LABS: BUN Creatinine Ratio 15.3 (10-20); Calcium 8.8 mg/dl (8.5-10.1); Creatinine Clr Calc Pharmacy 62.2 ml/min; Est GFR (African American) 78.4; Est GFR (Non-African American) 67.6
--- NOTE | 2019-02-13 08:08 | XRay Report ---
XR knee RT 1 or 2V routine CLINICAL HISTORY: Fall. COMPARISON: None FINDINGS: Alignment of the right knee is anatomic. There is no acute fracture or joint effusion. Nicolasa nt spaces are preserved. IMPRESSION: No acute fracture or joint effusion of the right knee. ACT 112: Negative or not required by law. Electronically signed by: Cam Perez M.D. 02/13/2019 8:07 AM
--- NOTE | 2019-02-13 08:11 | XRay Report ---
XR hip RT min 2V HISTORY: 69 years-old Male fall acute right hip pain status post fall COMPARISON: CT abdomen and pelvis 04/23/2017 TECHNIQUE: 2 views of the right hip FINDINGS: There is an acute transcervical fracture of the right proximal femur with only minimal associated dis placement best appreciated on the crosstable lateral view. Mild osteophyte is of the femoral acetabul ar joint. No avascular necrosis or significant soft tissue swelling. IMPRESSION: Acute transcervical fracture of the right femur with minimal displacement. ACT 112: Negative or not required by law. The above report was generated using voice recognition software. It may contain grammatical, syntax o r spelling errors. Electronically signed by: Shalom Wills M.D. 02/13/2019 8:10 AM
--- NOTE | 2019-02-13 08:12 | XRay Report ---
XR chest 1V portable CLINICAL HISTORY: fall, near syncope COMPARISON STUDY: Chest CT February 21, 2018. Chest radiograph April 26, 2018. FINDINGS: Lung volumes are normal. Lungs are clear. There is no pneumothorax or pleural effusion. Car diac size is normal. Mediastinal contours are normal. There is no evidence for pulmonary edema. There is underlying emphysema. Right apical scarring is unchanged. IMPRESSION: No acute cardiopulmonary findings. ACT 112: Negative or not required by law. Electronically signed by: Cam Perez M.D. 02/13/2019 8:11 AM
--- NOTE | 2019-02-13 10:11 | History & Physical Report ---
Date of Service February 13, 2019 Assessment & Plan (1) Fall: (2) Right femoral fracture: Pt is 69 y/o M with PMH COPD, chronic hypoxemic respiratory failure on 3.5-4 L oxygen, TIA, tobacco use, dyslipidemia, HTN, paroxysmal atrial fibrillation not on anticoagulation, DM II, BLE edema, hypothyroidism presented with c/o dizziness then fall onto right side and c/o right hip pain. Denies hitting head or LOC. In ER afebrile, P: 77, R: 22, BP: 109/48, 98% on 3.5L oxygen. No leukocytosis. H/H: 11.9/35.6 (baseline Hgb: 12.5), glucose: 84 R HIP XRAY: Acute transcervical fracture of the right femur with minimal displacement. R KNEE XRAY: No acute fracture or joint effusion of the right knee. -Pt moderate surgical risk with advanced COPD -Diluadid, oxycodone prn pain -N.p.o. for now -When hip repaired and able to sit up and ambulate consider orthostatics vital signs to rule out orthostatic hypotension -Ortho consult-ER discussed case with Johan Lock PA-C -Monitor CBC, BMP (3) Chronic respiratory failure: (4) COPD exacerbation: On chronic 3.5-4 L oxygen via nasal cannula Denies any increased cough, increased sputum production, increased shortness of breath Moderate wheezing on exam -Continue Trelegy Ellipta -Continue chronic oxygen 3.5-4 L -Duo nebs scheduled -Start doxycycline and prednisone 40 mg daily (5) Paroxysmal atrial fibrillation: History of paroxysmal atrial fibrillation occurring with COPD exacerbations. Not on anticoagulation. Follows with Dr. Michael-cardiology Current sinus rhythm -Continue verapamil with holding parameters (6) TIA (transient ischemic attack): H/O TIA in 1982. Patient not on aspirin -Continue atorvastatin (7) HTN (hypertension): SBP's in 100s -Hold lisinopril -Continue verapamil with holding parameters (8) Dyslipidemia: -Continue atorvastatin (9) Diabetes mellitus, type II: A1c: 5.8 on 10/17/2018 -Hold metformin -NovoLog sliding scale per protocol (10) Hypothyroidism: TSH: 0.6 on 10/17/2018 -Continue levothyroxine (11) GERD (gastroesophageal reflux disease): -Continue PPI (12) Tobacco use: -Smoking cessation encouraged -Patient unsure if wants nicotine patch currently. Nicotine patch ordered if patient decides (13) Alcohol use: Drinks 2 beers daily. Denies history of alcohol withdrawal -Continue thiamine, folic acid DVT Prophylaxis -SCDs for now in case of surgical procedure Full Code as per discussion with pt, however pt reports would not want prolonged life support if poor prognosis Follows with Dr Schmidt for routine care Pt was seen and care coordinated with Dr Shelby. See addendum History of Present Illness Chief Complaint: Fall, R hip pain Primary Care Provider: Derrell Schmidt MD Pt is 69 y/o M with PMH COPD, chronic hypoxemic respiratory failure on 3.5-4 L oxygen, TIA, tobacco use, dyslipidemia, HTN, paroxysmal atrial fibrillation not on anticoagulation, DM II, BLE edema, hypothyroidism presented to ER with complaint of fall and right hip pain. Patient states got up out of bed this morning and walked throughout house was trying to heat up some coffee when he started to get dizzy and his vision got blurry described as "cloudy vision". Patient states then fell onto right side. Patient denies hitting head and does not believe had any LOC. He reports was unable to get up secondary to right hip and leg pain. Denies any paresthesias, SOB, chest pain prior to fall. Patient reports chronic cough intermittently productive and denies any increased cough or sputum production. Denies any increased shortness of breath. Denies any other noted injury, denies neck pain, back pain, upper extremity pain, left lower extremity. Patient denies any current headache, dizziness, vision changes. Reports takes Lasix for BLE edema and denies any noted LE edema "for awhile". Currently c/o R hip pain, unable to move right leg and some paresthesias to right foot/toes. C/O anterior right knee pain also. Denies h/o prior injury to RLE or R hip in past. Denies fever/chills, diaphoresis, N/V/D/C, orthopnea, palpitations, sore throat, choking, otalgia, rhinorrhea, abdominal pain, rashes, urinary symptoms. Allergies Allergy/AdvReac Type Severity Reaction Status Date / Time turkey Allergy Verified 02/13/19 12:29 Home Medications Home Medications Medication Instructions Recorded Confirmed Type atorvastatin 40 mg PO QAM 01/28/18 02/13/19 History docusate sodium [Colace] 100 mg PO BID 01/28/18 02/13/19 History folic acid 1 mg PO QAM 01/28/18 02/13/19 History furosemide 20 mg PO DAILY PRN 01/28/18 02/13/19 History gabapentin 300 mg PO HS 01/28/18 02/13/19 History thiamine HCl (vitamin B1) 100 mg PO QAM 01/28/18 02/13/19 History metformin 1,000 mg PO DAILY 04/23/18 02/13/19 History albuterol sulfate 2.5 mg INHALATION TID #0 ml 04/30/18 02/13/19 Rx ipratropium bromide 0.5 mg INHALATION TID #0 ml 04/30/18 02/13/19 Rx ytzvpurvzdv-omptenxgx-iuieuzdl 1 inh INHALATION DAILY 02/13/19 02/13/19 History [Trelegy Ellipta] levothyroxine 50 mcg PO DAILY 02/13/19 02/13/19 History lisinopril 10 mg PO DAILY 02/13/19 02/13/19 History montelukast 10 mg PO PM 02/13/19 02/13/19 History pantoprazole 40 mg PO DAILY 02/13/19 02/13/19 History sertraline 100 mg PO DAILY 02/13/19 02/13/19 History verapamil 120 mg PO DAILY 02/13/19 02/13/19 History Past Med/Surg History Medical History Alcohol use BPH (benign prostatic hyperplasia) Chronic respiratory failure COPD (chronic obstructive pulmonary disease) Depression Diabetes mellitus, type II Dyslipidemia Esophageal stenosis "s/p dilation June 2016" GERD (gastroesophageal reflux disease) HTN (hypertension) Hypothyroidism Leg edema Paroxysmal atrial fibrillation Superficial thrombophlebitis "2009" TIA (transient ischemic attack) "1982" Surgical History History of cataract surgery S/P bronchoscopy Family History Other Diabetes Social History Preferred Language: Israeli Communication Ability: Effective 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: No Beliefs That Will Affect Care: None marital status: Single Current Living Situation: Alone Other Information That Helps Us Care for You: No Feels Safe at Home: Yes Safety Concerns: Feels Safe At This Time Smoking Status: Current every day smoker Tobacco Type: cigarettes ; Cigarettes Per Day: 20-30 ; Do You Dip or Chew Tobacco: Yes (former) ; Second Hand Exposure: No ; Tobacco Cessation Education Requested by Patient: No Hx Alcohol Use: Yes Alcohol type: beer Alcohol Intake Frequency Comment: 2 beers a day Hx Substance Use: No Review of Systems Review of Systems: All systems reviewed & are unremarkable except as noted in HPI & below Physical Exam Physical Exam: General: mild distress secondary to discomfort, chronic ill appearing, WDWN Head: normocephalic, atraumatic Eyes: PERRL, EOM's intact, conjunctiva non-injected, anicteric ENT: normal inspection external ears, nose, mucous membranes moist Neck: supple, trachea midline Lungs: On 4L oxygen via NC (chronic), +wheezing throughout, lungs diminished. unable to auscultate posteriorly secondary to limited mobility with current hip pain CV: RRR, no murmur, no pretibial edema Abd: normal BS, soft, non-tender Ext: no calf tenderness; RLE: right foot with external rotation, +tenderness to anterior right hip, +skin tear to anterior knee; no ROM of leg attempted, distal pulses palpable, sensation to light touch intact LLE: normal appearance, non-tender Neuro: A&O x 3, no focal deficits noted, normal affect Skin: warm, dry; moderate dry skin to BLE Results & Data Vital Signs (Past 12 Hours) Vital Signs Temp Pulse Pulse Resp BP BP Pulse Ox 02/13/19 09:49 66 16 106/59 L 100 02/13/19 08:50 70 16 90/70 L 91 02/13/19 07:41 64 20 106/59 L 100 02/13/19 07:39 68 24 96 02/13/19 06:49 98 02/13/19 06:44 36.5 C 77 22 109/48 L 98 Laboratory Results Short CBC 02/13/19 Range/Units 07:23 WBC 6.77 (4.8-10.8) K/uL Hgb 11.9 L (14.0-18.0) g/dL Hct 35.6 L (42-52) % Plt Count 135 (130-400) K/uL [facility] 02/13/19 07:23 Sodium 139 Potassium 4.0 Chloride 101 Carbon Dioxide 32 BUN 17 Creatinine 1.12 Glucose 84 Calcium 8.8 Diagnostic Findings CXR: IMPRESSION: No acute cardiopulmonary findings. R HIP XRAY: IMPRESSION: Acute transcervical fracture of the right femur with minimal displacement. R KNEE XRAY: IMPRESSION: No acute fracture or joint effusion of the right knee. ECG Rate (beats per minute): 64 Rhythm: sinus rhythm Additional Comments: incomplete RBBB Supervising Physician Co-Signing Physician Notes Patient is a 69-year-old male with H/O chronic respiratory failure--oxygen dependent, COPD ongoing tobacco use disorder and other problems presents with history of fall resulting in right hip fracture. He states having transient dizziness and blurred vision prior to the fall which currently resolved. He denies any head trauma, loss of consciousness. Please review HPI for complete history of presentation. Hip x-ray showed acute transcervical fracture of the right hip with minimal displacement. On exam patient is moderately built and nourished, mild distress secondary to pain, chronic ill-appearing, normocephalic atraumatic, lungs decreased breath sounds, bilateral wheezing, S1-S2, no murmur, abdomen soft nontender, trace pedal edema, grossly no focal neurologic deficits, right lower extremity shortened, externally rotated, decreased ROM due to pain, right hip tender. Patient is admitted for management of right hip fracture secondary to fall, mild COPD exacerbation. Agree with scheduled nebs, prednisone, doxycycline for COPD exacerbation. Pain control, bowel regimen to prevent constipation. Orthopedics consulted. Currently not on any anticoagulation for atrial fibrillation. I personally reviewed the record. Patient is interviewed and examined at bedside. Patient's care is coordinated with Elidia King PA-C. Please refer to the documentation above for details of patient's presentation and for discussion of other issues.
[2019-02-13] MEDS ORDERED: GLUCOSE 40% GEL 15 GM TUBE PO PRN (10:53)
[2019-02-13] MEDS ORDERED: NALOXONE HCL 0.4 MG/1 ML VIAL/CARP IV PRN (10:53)
[2019-02-13] MEDS ORDERED: DEXTROSE 50% 50 ML SYRINGE IV PRN (10:53)
[2019-02-13] MEDS ORDERED: MAGNESIUM HYDROXIDE SUSP 30 ML UDC PO PRN (10:53)
[2019-02-13] MEDS ORDERED: GLUCAGON FOR INJ 1 MG VIAL SQ PRN (10:53)
[2019-02-13] MEDS ORDERED: CARBOHYDRATES FOR HYPOGLYCEMIA PO PRN (10:53)
[2019-02-13] MEDS ORDERED: bisacodyL 10 MG SUPP PR PRN (10:53)
[2019-02-13] MEDS ORDERED: GLUCOSE 10 TABS/TUBE PO PRN (10:53)
[2019-02-13] MEDS ORDERED: OXYCODONE HCL IR 5 MG TAB (IMMEDIATE RELEASE) PO PRN (10:53)
[2019-02-13] MEDS: HYDROmorphone INJ 0.5 MG/0.5 ML SYR IV PRN ×3 (11:13→22:14)
[2019-02-13] MEDS: ALBUT/IPRATROP 3MG/0.5MG NEB 3 ML VIAL NEB SCH ×3 (11:21→19:51)
[2019-02-13 13:47] LABS: Appearance Urine Clear (Clear); Bilirubin Urine Negative (Negative); Blood Urine Negative (Negative); Color Urine Yellow; Glucose Urine UA Negative (Negative); Ketones Urine Negative (Negative); Leukocyte Esterase Urine Negative (Negative); Nitrite Urine Negative (Negative); Protein Urine Negative (Negative); Specific Gravity Urine 1.013 (1.000-1.030); Urobilinogen Urine Negative (Negative)
--- NOTE | 2019-02-13 14:02 | Emergency Department Note ---
Entered by Chapincito Coker acting as a scribe for ED Provider Note CHIEF COMPLAINT: Fall HISTORY OF PRESENT ILLNESS: The patient is a 69 year old male who presents to the Emergency Room after having a fall this morning just prior to arrival. The patient reports that preceding the incident he had blurry vision that he describes as "seeing a white light". The patient landed on his right side, injuring his right hip and knee. The patient rates the pain as an 8.5/10 and notes most of the pain is in his hip. The patient did receive a shot of pain medication en route but states his pain is still intense especially when he tried to move his right leg. The patient denies any head trauma or being on any blood thinners. The patient is a smoker with a history of COPD which requires him to wear oxygen at baseline. He also has a constant cough and uses nebulizers regularly. Pt denies LOC, headache, fevers, chills, diaphoresis, neck pain, chest pain, breathing difficulties, nausea, vomiting, abdominal pain, back pain, melena, hematochezia, urinary symptoms, numbness, weakness, lymphadenopathy, rash, or other complaints. REVIEW OF SYSTEMS: See HPI for pertinent positives and negatives. A total of ten systems were reviewed and were otherwise negative. PMHx/PSHx: COPD SOCIAL HISTORY: Patient lives at home. Daily smoker. PHYSICAL EXAM: GENERAL: Awake, alert, uncomfortable-appearing, in no distress HENT: Normocephalic, atraumatic. Oropharynx unremarkable. EYES: Normal conjunctiva. Sclera non-icteric. NECK: Inspection normal. Non-tender. Supple. No nuchal rigidity. FROM. No masses. RESPIRATORY: Clear to auscultation. No wheezes. No rales. Normal respiratory effort. CARDIAC: Normal rate. Normal rhythm. No murmurs. No rubs. Extremities warm and well perfused. Pulses equal. No JVD. GI: Soft, non-distended. No tenderness to palpation. No rebound or guarding. No masses. RECTAL: Deferred. MUSCULOSKELETAL: Chest examination reveals no tenderness. The back is symmetrical on inspection without obvious abnormality. There is no CVA tenderness to palpation. No joint edema. Bilateral upper extremities and RLE are atraumatic. LOWER EXTREMITIES: Calves are equal size bilaterally and non-tender. No edema. No discoloration. Skin tear and contusion to the anterior right knee. Slightly shortened and externally rotated RLE. ROM of the right hip and knee are limited secondary to pain. NEURO: Normal sensorium. No sensory or motor deficits noted. SKIN: No rash or jaundice noted. EMERGENCY DEPARTMENT COURSE: 0649: Past medical records reviewed. The patient was evaluated in room A09B, and a complete history and physical examination were performed. 0825: I discussed the patient's case with Elidia Ann PAC working under Dr. Heron Ann Hospitalist. They agreed to accept the patient for further evaluation. 0835: I reevaluated the patient and updated him with the test results. 0842: I spoke to Johan ORTIZ about the patient's case and he agreed to be on consult. MEDICAL DECISION MAKING: Triage Nursing notes reviewed and agree them. The patient's history was concerning for traumatic injury. Differential diagnosis: Etiologies such as fracture, dislocation, neurovascular compromise, compartment syndrome, soft tissue injury, as well as others were entertained. Physical examination: Consistent with an isolated hip injury. ER treatment provided: IV lock IV Dilaudid NPO Bedrest On reassessment the patient felt better. Diagnostics interpreted by me: ECG: No evidence of ischemia The labs revealed an unremarkable CBC, coags, and chemistry panel. Imaging studies: X-ray imaging of the right hip is concerning for fracture. X-ray imaging of the right knee is negative for fracture dislocation. Chest x-ray negative for acute process. The patient had a near syncopal episode and then suffered an isolated hip fracture and will need admission to the hospital. Consultation: A consultation was placed with hospital service and orthopedics. The case was discussed and diagnostics were reviewed. The patient was evaluated in the ER for further treatment. IMPRESSION: Closed right hip fracture Fall Near syncope PLAN: Being evaluated by the Hospitalist The scribe's documentation has been prepared under my direction and personally reviewed by me in its entirety. I confirm that the note above accurately reflects all work, treatment, procedures, and medical decision making performed by me. Impression & Plan Closed fracture of right hip, Fall, Near syncope Past Med/Surg History Medical History Alcohol use BPH (benign prostatic hyperplasia) Chronic respiratory failure COPD (chronic obstructive pulmonary disease) Depression Diabetes mellitus, type II Dyslipidemia Esophageal stenosis "s/p dilation June 2016" GERD (gastroesophageal reflux disease) HTN (hypertension) Hypothyroidism Leg edema Paroxysmal atrial fibrillation Superficial thrombophlebitis "2009" TIA (transient ischemic attack) "1982" Surgical History History of cataract surgery S/P bronchoscopy Family History Other Diabetes Social History Preferred Language: Bolivian Communication Ability: Effective 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: No Beliefs That Will Affect Care: None marital status: Single Current Living Situation: Alone Other Information That Helps Us Care for You: No Feels Safe at Home: Yes Safety Concerns: Feels Safe At This Time Smoking Status: Current every day smoker Tobacco Type: cigarettes ; Cigarettes Per Day: 20-30 ; Do You Dip or Chew Tobacco: Yes (former) ; Second Hand Exposure: No ; Tobacco Cessation Education Requested by Patient: No Hx Alcohol Use: Yes Alcohol type: beer Alcohol Intake Frequency Comment: 2 beers a day Hx Substance Use: No Results & Data Vital Signs Vital Signs - 24 hr 02/13/19 06:44 02/13/19 06:49 02/13/19 07:39 Temperature 36.5 C Temperature Source Oral Pulse Rate 77 Pulse Rate [Apical] 68 Respiratory Rate 22 24 Respiratory Effort / Characteristics Non-Labored Spontaneous Spontaneous Short of Breath Respiratory Depth Normal Blood Pressure 109/48 L Blood Pressure [Right Arm] Blood Pressure Mean 68 Blood Pressure Mean [Right Arm] Pulse Oximetry 98 98 96 Oxygen Delivery Method Nasal Cannula Nasal Cannula Nasal Cannula Oxygen Flow Rate 3.5 3.5 4 Sepsis Recent Fever Within 48 Hours No Sepsis Action Taken by Nursing No Action Required 02/13/19 07:41 02/13/19 08:50 02/13/19 09:49 Temperature Temperature Source Pulse Rate Pulse Rate [Apical] 64 70 66 Respiratory Rate 20 16 16 Respiratory Effort / Characteristics Respiratory Depth Blood Pressure Blood Pressure [Right Arm] 106/59 L 90/70 L 106/59 L Blood Pressure Mean Blood Pressure Mean [Right Arm] 74 76 74 Pulse Oximetry 100 91 100 Oxygen Delivery Method Nebulizer Nasal Cannula Oxygen Flow Rate 5 Sepsis Recent Fever Within 48 Hours Sepsis Action Taken by [facility] Medications Current Medication List: was personally reviewed by me Laboratory Data Attestation: I reviewed the patient's lab results. Result diagrams: 02/13/19 07:23 02/13/19 07:23 Lab Results 02/13/19 02/13/19 02/13/19 Range/Units 07:23 07:23 07:23 WBC 6.77 (4.8-10.8) K/uL RBC 3.60 L (4.7-6.1) M/uL Hgb 11.9 L (14.0-18.0) g/dL Hct 35.6 L (42-52) % MCV 98.9 (80-100) fL MCH 33.1 (25-34) pg MCHC 33.4 (32-36) g/dL RDW Std Deviation 45.8 (36.4-46.3) fL RDW Coeff of Daquan 12.7 (11.5-14.5) % Plt Count 135 (130-400) K/uL MPV 10.5 H (7.4-10.4) fL Immature Gran % (Auto) 0.3 % Neut % (Auto) 62.4 % Lymph % (Auto) 23.2 % [place] % (Auto) 9.5 % Eos % (Auto) 4.0 % Baso % (Auto) 0.6 % Immature Gran # (Auto) 0.02 (0.00-0.02) K/uL Neut # (Auto) 4.23 (1.4-6.5) K/uL Lymph # (Auto) 1.57 (1.2-3.4) K/uL [place] # (Auto) 0.64 H (0.11-0.59) K/uL Eos # (Auto) 0.27 (0-0.5) K/uL Baso # (Auto) 0.04 (0-0.2) K/uL PT 9.4 (9.0-12.0) Seconds INR 0.9 (0.9-1.1) APTT 22.8 (21.0-31.0) Seconds PTT Ratio 0.8 Sodium 139 (136-145) mmol/L Potassium 4.0 (3.5-5.1) mmol/L Chloride 101 (98-107) mmol/L Carbon Dioxide 32 (21-32) mmol/L Anion Gap 6.0 (3-11) BUN 17 (7-18) mg/dl Creatinine 1.12 (0.6-1.4) mg/dl Est Cr Clr Drug Dosing 62.2 ml/min Est GFR ( Amer) 78.4 Est GFR (Non-Af Amer) 67.6 BUN/Creatinine Ratio 15.3 (10-20) Glucose 84 (70-99) mg/dl Calcium 8.8 (8.5-10.1) mg/dl Blood Type Antibody Screen 02/13/19 Range/Units 07:23 WBC (4.8-10.8) K/uL RBC (4.7-6.1) M/uL Hgb (14.0-18.0) g/dL Hct (42-52) % MCV (80-100) fL MCH (25-34) pg MCHC (32-36) g/dL RDW Std Deviation (36.4-46.3) fL RDW Coeff of Daquan (11.5-14.5) % Plt Count (130-400) K/uL MPV (7.4-10.4) fL Immature Gran % (Auto) % Neut % (Auto) % Lymph % (Auto) % [place] % (Auto) % Eos % (Auto) % Baso % (Auto) % Immature Gran # (Auto) (0.00-0.02) K/uL Neut # (Auto) (1.4-6.5) K/uL Lymph # (Auto) (1.2-3.4) K/uL [place] # (Auto) (0.11-0.59) K/uL Eos # (Auto) (0-0.5) K/uL Baso # (Auto) (0-0.2) K/uL PT (9.0-12.0) Seconds INR (0.9-1.1) APTT (21.0-31.0) Seconds PTT Ratio Sodium (136-145) mmol/L Potassium (3.5-5.1) mmol/L Chloride (98-107) mmol/L Carbon Dioxide (21-32) mmol/L Anion Gap (3-11) BUN (7-18) mg/dl Creatinine (0.6-1.4) mg/dl Est Cr Clr Drug Dosing ml/min Est GFR ( Amer) Est GFR (Non-Af Amer) BUN/Creatinine Ratio (10-20) Glucose (70-99) mg/dl Calcium (8.5-10.1) mg/dl Blood Type B Positive Antibody Screen NEGATIVE Administered Medications Albuterol (Duoneb) 3 ml NEB QIDR SAE Stop: 03/15/19 10:59 Last Admin: 02/13/19 11:21 Dose: 3 ml Documented by: [id number] Hydromorphone HCl (Dilaudid) 0.25 mg IV Q3H PRN PRN Reason: Severe Pain Stop: 02/27/19 10:52 Last Admin: 02/13/19 11:13 Dose: 0.25 mg Documented by: [id number] Discontinued Medications Albuterol (Duoneb) 3 ml NEB NOW STA Stop: 02/13/19 06:58 Last Admin: 02/13/19 07:37 Dose: 3 ml Documented by: [id number] Hydromorphone HCl (Dilaudid) 0.25 mg IV Q20M PRN PRN Reason: Moderate Pain (Rating 3,4,5,6) Stop: 02/27/19 06:55 Last Admin: 02/13/19 07:40 Dose: 0.25 mg Documented by: [id number] Hydromorphone HCl (Dilaudid) 0.5 mg IV Q20M PRN PRN Reason: Severe Pain (Rating 7,8,9,10) Stop: 02/27/19 06:55 Last Admin: 02/13/19 07:05 Dose: 0.5 mg Documented by: [id number] Lactated Ringer's (Lr) 1,000 mls @ 75 mls/hr IV .[id number] SAE Stop: 03/15/19 06:59 Last Infusion: 02/13/19 11:49 Dose: 0 mls/hr Documented by: [id number] Admin: 02/13/19 08:15 Dose: 75 mls/hr Documented by: [id number] Imaging Data Radiologist's Impression: Radiology results as stated below per my review and the radiologist's interpretation: XR chest 1V portable CLINICAL HISTORY: fall, near syncope COMPARISON STUDY: Chest CT February 21, 2018. Chest radiograph April 26, 2018. FINDINGS: Lung volumes are normal. Lungs are clear. There is no pneumothorax or pleural effusion. Cardiac size is normal. Mediastinal contours are normal. There is no evidence for pulmonary edema. There is underlying emphysema. Right apical scarring is unchanged. IMPRESSION: No acute cardiopulmonary findings. ACT 112: Negative or not required by law. Electronically signed by: Cam Perez M.D. 02/13/2019 8:11 AM XR hip RT min 2V HISTORY: 69 years-old Male fall acute right hip pain status post fall COMPARISON: CT abdomen and pelvis 04/23/2017 TECHNIQUE: 2 views of the right hip FINDINGS: There is an acute transcervical fracture of the right proximal femur with only minimal associated displacement best appreciated on the crosstable lateral view. Mild osteophyte is of the femoral acetabular joint. No avascular necrosis or significant soft tissue swelling. IMPRESSION: Acute transcervical fracture of the right femur with minimal displacement. ACT 112: Negative or not required by law. The above report was generated using voice recognition software. It may contain grammatical, syntax or spelling errors. Electronically signed by: Shalom Wills M.D. 02/13/2019 8:10 AM XR knee RT 1 or 2V routine CLINICAL HISTORY: Fall. COMPARISON: None FINDINGS: Alignment of the right knee is anatomic. There is no acute fracture or joint effusion. Joint spaces are preserved. IMPRESSION: No acute fracture or joint effusion of the right knee. ACT 112: Negative or not required by law. Electronically signed by: Cam Perez M.D. 02/13/2019 8:07 AM ECG Data Attestation: I personally reviewed and interpreted this ECG as follows: Indication: + other (Trauma) Rate (beats per minute): 64 Rhythm: sinus rhythm ECG Intervals/blocks: + Incomplete right bundle branch block, + Normal QRS and + Short VA ECG [place]: + Normal ECG ST segments: no ST depression and no ST elevation Blood Pressure Blood Pressure Findings: Low blood pressure Blood Pressure Disposition: further management by hospitalist Discharge Plan Visit Data *Final* Discharge Date/Time: 02/13/19 10:35 Chief Complaint: Fall Stated Complaint: FALL/HIP PAIN Other Complaint: Hip Pain ED Provider: Bill Oneal Discharge Problem: Closed fracture of right hip, Fall, Near syncope Patient Disposition: Admitted As Inpatient Discharge Instructions Interventions: ED Discharge Assessment Last Done: 02/13/19 10:35 Discharge Problem: Closed fracture of right hip Qualifiers: Encounter type: initial encounter Qualified Code(s): S72.001A - Fracture of unspecified part of neck of right femur, initial encounter for closed fracture Fall Qualifiers: Encounter type: initial encounter Qualified Code(s): W19.XXXA - Unspecified fall, initial encounter The scribe's documentation has been prepared under my direction and personally reviewed by me in its entirety. I confirm that the note above accurately reflects all work, treatment, procedures, and medical decision making performed by me.
[2019-02-13] MEDS: NICOTINE 21 MG/24 HR TDSY TD SCH (14:04)
[2019-02-13] MEDS: predniSONE 20 MG TAB PO SCH (14:06)
[2019-02-13] MEDS: LEVOTHYROXINE SODIUM 50 MCG TABLET PO SCH (14:07)
[2019-02-13] MEDS: INSULIN ASPART 100 UNITS/ML 3 ML PEN SC SCH ×3 (14:08→20:24)
[2019-02-13] MEDS: DOXYCYCLINE HYCLATE 100 MG CAP PO SCH ×2 (14:08→20:20)
[2019-02-13] MEDS: VERAPAMIL HCL 120 MG TABCR PO SCH (14:08)
[2019-02-13] MEDS: ONDANSETRON INJ 2 MG/ML 2 ML VIAL IV PRN (14:53)
--- NOTE | 2019-02-13 15:52 | Orthopedic Consultation ---
Date of Consultation February 13, 2019 Assessment & Plan (1) Closed fracture of right hip: X-rays have been reviewed by Dr Zelaya and myself. Patient will likely require bipolar hemiarthroplasty versus total hip arthroplasty. Dr Zelaya to discuss with patient in AM. Anesthesia has been consulted for preop check prior to surgery for tomorrow. Plan for or tomorrow if patient has been optimized. Supervising Physician Co-Signing Physician Notes Patient seen and examined, agree with above assessment and plan. History of Present Illness Reason for Consultation: Right femoral neck fracture Attending Physician: Alejandro Shelby MD History of Present Illness Patient is a 69-year white male admitted with right hip fracture. Patient states that he was up and ambulating in his kitchen cooking breakfast this morning. He was moving about as usual while he was cooking. At one point, he turned to come back towards the stove to see how things were progressing when he started seeing stars and lights and then realized he was laying on the floor. He does not feel like he completely lost consciousness but he is unsure. He denies any chest pain prior to the fall or after. Patient has a history of chronic COPD but states that his breathing has not been any worse than it usually is. As he tried to get up, he had moderate pain in his right hip and groin and was unable to ambulate. He called 911 and was brought to the emergency room here at the hospital. X-rays were taken and was found that he had a displaced transcervical fracture of the right hip. He was admitted by [facility] service and we have been asked to see him for his fracture. Allergies Allergy/AdvReac Type Severity Reaction Status Date / Time turkey Allergy Verified 02/13/19 12:29 Home Medications Home Medications Medication Instructions Recorded Confirmed Type atorvastatin 40 mg PO QAM 01/28/18 02/13/19 History docusate sodium [Colace] 100 mg PO BID 01/28/18 02/13/19 History folic acid 1 mg PO QAM 01/28/18 02/13/19 History furosemide 20 mg PO DAILY PRN 01/28/18 02/13/19 History gabapentin 300 mg PO HS 01/28/18 02/13/19 History thiamine HCl (vitamin B1) 100 mg PO QAM 01/28/18 02/13/19 History metformin 1,000 mg PO DAILY 04/23/18 02/13/19 History albuterol sulfate 2.5 mg INHALATION TID #0 ml 04/30/18 02/13/19 Rx ipratropium bromide 0.5 mg INHALATION TID #0 ml 04/30/18 02/13/19 Rx [id number]-gxcqskbba-zxywomga 1 inh INHALATION DAILY 02/13/19 02/13/19 History [Trelegy Ellipta] levothyroxine 50 mcg PO DAILY 02/13/19 02/13/19 History lisinopril 10 mg PO DAILY 02/13/19 02/13/19 History montelukast 10 mg PO PM 02/13/19 02/13/19 History pantoprazole 40 mg PO DAILY 02/13/19 02/13/19 History sertraline 100 mg PO DAILY 02/13/19 02/13/19 History verapamil 120 mg PO DAILY 02/13/19 02/13/19 History Patient History Medical History Alcohol use BPH (benign prostatic hyperplasia) Chronic respiratory failure COPD (chronic obstructive pulmonary disease) Depression Diabetes mellitus, type II Dyslipidemia Esophageal stenosis "s/p dilation June 2016" GERD (gastroesophageal reflux disease) HTN (hypertension) Hypothyroidism Leg edema Paroxysmal atrial fibrillation Superficial thrombophlebitis "2009" TIA (transient ischemic attack) "1982" Surgical History History of cataract surgery S/P bronchoscopy Family History Other Diabetes Social History Preferred Language: Turkish Communication Ability: Effective Storage Manager Required: No Beliefs That Will Affect Care: None marital status: Single Current Living Situation: Alone Other Information That Helps Us Care for You: No Feels Safe at Home: Yes Safety Concerns: Feels Safe At This Time Smoking Status: Current every day smoker Tobacco Type: cigarettes ; Cigarettes Per Day: 20-30 ; Do You Dip or Chew Tobacco: Yes (former) ; Second Hand Exposure: No ; Tobacco Cessation Education Requested by Patient: No Hx Alcohol Use: Yes Alcohol type: beer Alcohol Intake Frequency Comment: 2 beers a day Hx Substance Use: No Review of Systems Review of Systems: Patient denies any recent fevers or chills. No recent flu or cold-like symptoms. No increased cough or sputum production. No unexplained weight loss or weight gain. Patient states that his breathing has been within normal limits for him. He is on home O2 daily for chronic COPD. No history of any recent chest pain, chest pressure. H/O afib. No recent abdominal pain, unusual nausea, vomiting, diarrhea. Denies any history of hematemesis, melena or hematochezia. History of esophageal stenosis and GERD. Patient has a history of BPH and no recent hematuria, pyuria, dysuria. History of renal calculi many years ago. History of TIA in the past. No history of CVA, vertig o, migraine headache. Physical Exam Physical Exam: Currently the patient is lying in bed sitting up. He is awake and alert and oriented x3. He is having some mild pain in the right hip but is in no acute distress. Focusing the exam on the right lower extremity, it is shortened and externally rotated compared to the left. No range of motion is done with the right hip or knee at this time due to right hip fracture. Thigh is soft and nontender and there is no overt bruising or abrasions noted. He has a mild abrasion noted over the right knee. Right knee is nontender on palpation. There is no effusion noted. He has good range of motion of his right ankle and toes but has bilateral neuropathy. Left lower extremity is unaffected at this time and he has good range of motion of his left hip knee and ankle. Upper extremities are unaffected at this time and he has good range of motion of his shoulders elbows wrists. They are nontender. Distal pulses are equal bilaterally of the upper lower extremities. He denies any neck, thoracic, lumbar pain at this time. Other than noted neuropathy he has no gross motor or sensory loss at this time. Results & Data Vital Signs (Past 12 Hours) Vital Signs Temp Pulse Pulse Resp BP BP Pulse Ox 02/13/19 15:42 36.6 C 81 20 100/64 98 02/13/19 15:09 75 18 98 02/13/19 14:03 85 97/63 L 02/13/19 11:27 36.6 C 74 20 91/58 L 97 02/13/19 11:22 82 22 97 02/13/19 10:35 71 16 108/58 L 96 02/13/19 09:49 66 16 106/59 L 100 02/13/19 08:50 70 16 90/70 L 91 02/13/19 07:41 64 20 106/59 L 100 02/13/19 07:39 68 24 96 02/13/19 06:49 98 02/13/19 06:44 36.5 C 77 22 109/48 L 98 Laboratory Results Laboratory Results WBC 6.77 K/uL (4.8-10.8) 02/13/19 07:23 RBC 3.60 M/uL (4.7-6.1) L 02/13/19 07:23 Hgb 11.9 g/dL (14.0-18.0) L 02/13/19 07:23 Hct 35.6 % (42-52) L 02/13/19 07:23 MCV 98.9 fL (80-100) 02/13/19 07:23 MCH 33.1 pg (25-34) 02/13/19 07:23 MCHC 33.4 g/dL (32-36) 02/13/19 07:23 RDW Std Deviation 45.8 fL (36.4-46.3) 02/13/19 07:23 RDW Coeff of Daquan 12.7 % (11.5-14.5) 02/13/19 07:23 Plt Count 135 K/uL (130-400) 02/13/19 07:23 MPV 10.5 fL (7.4-10.4) H 02/13/19 07:23 Immature Gran % (Auto) 0.3 % 02/13/19 07:23 Neut % (Auto) 62.4 % 02/13/19 07:23 Lymph % (Auto) 23.2 % 02/13/19 07:23 Lucas % (Auto) 9.5 % 02/13/19 07:23 Eos % (Auto) 4.0 % 02/13/19 07:23 Baso % (Auto) 0.6 % 02/13/19 07:23 Immature Gran # (Auto) 0.02 K/uL (0.00-0.02) 02/13/19 07:23 Neut # (Auto) 4.23 K/uL (1.4-6.5) 02/13/19 07:23 Lymph # (Auto) 1.57 K/uL (1.2-3.4) 02/13/19 07:23 Lucas # (Auto) 0.64 K/uL (0.11-0.59) H 02/13/19 07:23 Eos # (Auto) 0.27 K/uL (0-0.5) 02/13/19 07:23 Baso # (Auto) 0.04 K/uL (0-0.2) 02/13/19 07:23 PT 9.4 Seconds (9.0-12.0) 02/13/19 07:23 INR 0.9 (0.9-1.1) 02/13/19 07:23 APTT 22.8 Seconds (21.0-31.0) 02/13/19 07:23 PTT Ratio 0.8 02/13/19 07:23 Sodium 139 mmol/L (136-145) 02/13/19 07:23 Potassium 4.0 mmol/L (3.5-5.1) 02/13/19 07:23 Chloride 101 mmol/L (98-107) 02/13/19 07:23 Carbon Dioxide 32 mmol/L (21-32) 02/13/19 07:23 Anion Gap 6.0 (3-11) 02/13/19 07:23 BUN 17 mg/dl (7-18) 02/13/19 07:23 Creatinine 1.12 mg/dl (0.6-1.4) 02/13/19 07:23 Est Cr Clr Drug Dosing 62.2 ml/min 02/13/19 07:23 Est GFR ( Amer) 78.4 02/13/19 07:23 Est GFR (Non-Af Amer) 67.6 02/13/19 07:23 BUN/Creatinine Ratio 15.3 (10-20) 02/13/19 07:23 Glucose 84 mg/dl (70-99) 02/13/19 07:23 Calcium 8.8 mg/dl (8.5-10.1) 02/13/19 07:23 Urine Color Yellow 02/13/19 13:15 Urine Appearance Clear (Clear) 02/13/19 13:15 Urine pH 6.0 (4.5-7.5) 02/13/19 13:15 Ur Specific [place] 1.013 (1.000-1.030) 02/13/19 13:15 Urine Protein Negative (Negative) 02/13/19 13:15 Urine Glucose (UA) Negative (Negative) 02/13/19 13:15 Urine Ketones Negative (Negative) 02/13/19 13:15 Urine Blood Negative (Negative) 02/13/19 13:15 Urine Nitrite Negative (Negative) 02/13/19 13:15 Urine Bilirubin Negative (Negative) 02/13/19 13:15 Urine Urobilinogen Negative (Negative) 02/13/19 13:15 Ur Leukocyte Esterase Negative (Negative) 02/13/19 13:15 Nasal Screen MRSA (PCR) Negative (Negative) 02/13/19 11:47 Blood Type B Positive 02/13/19 07:23 Antibody Screen NEGATIVE 02/13/19 07:23 Diagnostic Findings atient: BRYNN QUIROGA EAdmit Date: 02/13/19 MR#: [id number]: [address] [facility] [address] Acct ID:[id number]: Date: [address] [place] [address] Zip: [place] [address] Age: 69Location: ED Sex: M Room/Bed: Att Phy:Diagnosis: FALL/HIP PAIN Rhiannon Phy: Derrell Schmidt MD(SÁNCHEZ)Service Date: 02/13/19 Fam Phy:Interpreting Phy: Leodan Wills Admit Phy: Ordering Phy: Bill Oneal MD cc: ~ XR hip RT min 2V HISTORY: 69 years-old Male fall acute right hip pain status post fall COMPARISON: CT abdomen and pelvis 04/23/2017 TECHNIQUE: 2 views of the right hip FINDINGS: There is an acute transcervical fracture of the right proximal femur with only minimal associated displacement best appreciated on the crosstable lateral view. Mild osteophyte is of the femoral acetabular joint. No avascular necrosis or significant soft tissue swelling. IMPRESSION: Acute transcervical fracture of the right femur with minimal displacement. (1) Closed fracture of right hip Encounter type: initial encounter Qualified Code(s): S72.001A - Fracture of unspecified part of neck of right femur, initial encounter for closed fracture
[2019-02-13] MEDS: OXYCODONE HCL IR 5 MG TAB (IMMEDIATE RELEASE) PO PRN ×2 (17:14→23:43)
[2019-02-13] MEDS: DOCUSATE SODIUM/SENNA 50/8.6MG TAB PO SCH (20:18)
[2019-02-13] MEDS: DOCUSATE SODIUM 100 MG CAP PO SCH (20:19)
[2019-02-13] MEDS: GABAPENTIN 300 MG CAP PO SCH (20:21)
[2019-02-13] MEDS: MONTELUKAST SODIUM 10 MG TABLET PO SCH (20:21)
--- NOTE | 2019-02-13 22:22 | XRay Report ---
XR femur RT 2V routine CLINICAL HISTORY: Right hip fracture COMPARISON STUDY: Right hip 02/13/2019. FINDINGS: There is again noted a slightly impacted transcervical fracture of the proximal right femur . No dislocation. The visualized pelvic bones and mid to distal right femur are intact. IMPRESSION: 1. No change in the impacted right femoral neck fracture. 2. The mid to distal right femur is intact. ACT 112: Negative or not required by law. Electronically signed by: Joshua Guzman M.D. 02/13/2019 10:20 PM
[2019-02-14] MEDS: HYDROmorphone INJ 0.5 MG/0.5 ML SYR IV PRN ×2 (01:28→09:36)
[2019-02-14] MEDS ORDERED: CEFAZOLIN 2000MG 2,000 MG/15 ML SYR IV SCH (06:00)
[2019-02-14] MEDS: LEVOTHYROXINE SODIUM 50 MCG TABLET PO SCH (06:06)
[2019-02-14 06:58] LABS: Hematocrit (blood only) 35.5 % (42-52); Hemoglobin 11.7 g/dL (14.0-18.0); Mean Corpuscular Hemoglobin 32.6 pg (25-34); Mean Corpuscular Volume 98.9 fL (80-100); Mean Platelet Volume 11.6 fL (7.4-10.4); Platelet Count 134 K/uL (130-400); RDW Coefficient of Variation 12.9 % (11.5-14.5); RDW Standard Deviation 46.9 fL (36.4-46.3); Red Blood Count 3.59 M/uL (4.7-6.1); White Blood Count 11.41 K/uL (4.8-10.8)
[2019-02-14] MEDS: ALBUT/IPRATROP 3MG/0.5MG NEB 3 ML VIAL NEB SCH ×4 (06:59→19:29)
[2019-02-14 07:31] LABS: BUN Creatinine Ratio 18.3 (10-20); Calcium 8.9 mg/dl (8.5-10.1); Creatinine Clr Calc Pharmacy 43.3 ml/min; Est GFR (African American) 51.7; Est GFR (Non-African American) 44.6; Magnesium 2.3 mg/dl (1.8-2.4); Potassium 4.5 mmol/L (3.5-5.1)
--- NOTE | 2019-02-14 07:31 | Electrocardiogram Report ---
Test Reason : Blood Pressure : / mmHG Vent. Rate : 064 BPM Atrial Rate : 064 BPM P-R Int : 106 ms QRS Dur : 094 ms QT Int : 440 ms P-R-T Axes : -17 076 075 degrees QTc Int : 453 ms Sinus rhythm with short MT Incomplete right bundle branch block Borderline ECG When compared with ECG of 25-APR-2018 21:58, MT interval has increased Vent. rate has decreased BY [address] no longer depressed in Anterolateral leads T wave inversion no longer evident in Anterior leads Confirmed by Helio Landeros ([id number]) on 02/14/2019 7:31:39 AM Referred By: REFERRED SELF Confirmed By:Ronnie Landeros
[2019-02-14] MEDS: INSULIN ASPART 100 UNITS/ML 3 ML PEN SC SCH ×4 (07:44→20:50)
[2019-02-14] MEDS: NICOTINE 21 MG/24 HR TDSY TD SCH (07:45)
[2019-02-14] MEDS: OXYCODONE HCL IR 5 MG TAB (IMMEDIATE RELEASE) PO PRN ×2 (07:46→17:08)
[2019-02-14] MEDS: predniSONE 20 MG TAB PO SCH (07:46)
[2019-02-14] MEDS: ATORVASTATIN 40 MG TAB PO SCH (07:47)
[2019-02-14] MEDS: SERTRALINE HCL 100 MG TABLET PO SCH (07:47)
[2019-02-14] MEDS: FOLIC ACID 1 MG TAB PO SCH (07:47)
[2019-02-14] MEDS: DOCUSATE SODIUM 100 MG CAP PO SCH ×2 (07:47→20:46)
[2019-02-14] MEDS: THIAMINE HCL 100 MG TAB PO SCH (07:47)
[2019-02-14] MEDS: DOXYCYCLINE HYCLATE 100 MG CAP PO SCH ×2 (07:47→20:48)
[2019-02-14] MEDS: VERAPAMIL HCL 120 MG TABCR PO SCH (07:47)
[2019-02-14] MEDS: PANTOprazole 40 MG TAB PO SCH (07:48)
[2019-02-14] MEDS ORDERED: SODIUM CHLORIDE 0.9% 1000ML 1,000 ML IV ONE (08:32)
[2019-02-14] MEDS ORDERED: PROPOFOL IV EMULSION 10 MG/ML 20 ML VIAL IV ONE ×3 (09:54→11:38)
[2019-02-14] MEDS ORDERED: MIDAZOLAM HCL 1 MG/ML 2ML VIAL ONE (09:55)
[2019-02-14] MEDS ORDERED: fentaNYL citrate 100 MCG/2 ML VIAL ONE (09:55)
[2019-02-14] MEDS ORDERED: BACITRACIN INJ 50,000 UNIT VIAL ONE (10:01)
--- NOTE | 2019-02-14 10:29 | Anesthesiology Consultation ---
Date of Service February 14, 2019 Assessment & Plan Chart Review Chart Review: Acceptable Risk for Surgery and Patient NOT seen in Pre Admission Testing Consults Requested none ASA ASA4 Proposed Anesthesia Anesthesia Type: MAC Spinal Anesthesia Line Insertion: Arterial line Risk / Benefits Reviewed With: PT / POA / Parent / Guardian, Accepts Plan and Informed Consent Obtained History Surgery Operation Date: 02/14/19 10:00 Proposed Procedures p Right Bipolar Hemiarthroplasty - Vadim Zelaya DO Height/Weight Height: 5 ft 10 in Weight: 67.5 kg Allergies Allergy/AdvReac Type Severity Reaction Status Date / Time turkey Allergy Verified 02/13/19 12:29 Medications Home Medications Medication Instructions Recorded Confirmed Last Taken atorvastatin 40 mg PO QAM 01/28/18 02/13/19 01/28/18 06:30 docusate sodium [Colace] 100 mg PO BID 01/28/18 02/13/19 01/28/18 06:30 folic acid 1 mg PO QAM 01/28/18 02/13/19 01/27/18 06:30 furosemide 20 mg PO DAILY PRN 01/28/18 02/13/19 01/28/18 06:00 gabapentin 300 mg PO HS 01/28/18 02/13/19 01/28/18 06:00 thiamine HCl (vitamin B1) 100 mg PO QAM 01/28/18 02/13/19 01/28/18 06:30 metformin 1,000 mg PO DAILY 04/23/18 02/13/19 Unknown albuterol sulfate 2.5 mg INHALATION TID #0 ml 04/30/18 02/13/19 Unknown ipratropium bromide 0.5 mg INHALATION TID #0 ml 04/30/18 02/13/19 Unknown dcjubqdxhvx-kkqblmmsa-amquxpxc 1 inh INHALATION DAILY 02/13/19 02/13/19 Unknown [Trelegy Ellipta] levothyroxine 50 mcg PO DAILY 02/13/19 02/13/19 Unknown lisinopril 10 mg PO DAILY 02/13/19 02/13/19 Unknown montelukast 10 mg PO PM 02/13/19 02/13/19 Unknown pantoprazole 40 mg PO DAILY 02/13/19 02/13/19 Unknown sertraline 100 mg PO DAILY 02/13/19 02/13/19 Unknown verapamil 120 mg PO DAILY 02/13/19 02/13/19 Unknown Active Medications Generic Name Dose Route Start Last Admin Trade Name Freq PRN Reason Stop Dose Admin Albuterol 3 ml 02/13/19 11:00 02/14/19 06:59 Duoneb NEB 03/15/19 10:59 3 ml QIDR SAE Administration Atorvastatin Calcium 40 mg 02/14/19 09:00 02/14/19 07:47 Lipitor PO 03/16/19 08:59 40 mg QAM SAE Administration Docusate Sodium 100 mg 02/13/19 21:00 02/14/19 07:47 Colace PO 03/15/19 20:59 100 mg BID SAE Administration Doxycycline Hyclate 100 mg 02/13/19 10:53 02/14/19 07:47 Vibramycin PO 02/20/19 10:52 100 mg BID SAE Administration Folic Acid 1 mg 02/14/19 09:00 02/14/19 07:47 Folvite PO 03/16/19 08:59 1 mg QAM SAE Administration Gabapentin 300 mg 02/13/19 21:00 02/13/19 20:21 Neurontin PO 03/15/19 20:59 300 mg HS SAE Administration Hydromorphone HCl 0.25 mg 02/13/19 10:53 02/14/19 09:36 Dilaudid IV 02/27/19 10:52 0.25 mg Q3H PRN Administration Severe Pain Sodium Chloride 1,000 mls @ 80 mls/hr 02/14/19 08:32 02/14/19 09:51 Nss 1000ml IV 02/14/19 21:01 80 mls/hr .[id number] Administration Insulin Aspart 0 units 02/13/19 11:30 02/14/19 07:44 Novolog Flexpen SC 03/15/19 11:29 Not Given ACHS SAE Levothyroxine Sodium 50 mcg 02/13/19 10:53 02/14/19 06:06 Synthroid PO 03/15/19 10:52 50 mcg DAILYBB SAE Administration Miscellaneous 1 ea 02/14/19 08:59 02/14/19 07:45 Remove Nicoderm Patch N/A 03/16/19 08:58 1 ea DAILY@0859 SAE Administration Miscellaneous 1 ea 02/13/19 16:00 02/14/19 07:44 Order Awaiting Action N/A 03/15/19 15:59 Not Given QS SAE Montelukast Sodium 10 mg 02/13/19 21:00 02/13/19 20:21 Singulair PO 03/15/19 20:59 10 mg PM SAE Administration Nicotine 21 mg 02/13/19 10:53 02/14/19 07:45 Nicoderm Cq TD 03/15/19 10:52 Not Given QAM SAE Ondansetron HCl 4 mg 02/13/19 10:53 02/13/19 14:53 Zofran IV 03/15/19 10:52 4 mg Q6H PRN Administration Nausea And Vomiting Oxycodone HCl 5 mg 02/13/19 16:44 02/14/19 07:46 Roxicodone Immediate Rel PO 02/27/19 10:52 5 mg Q4H PRN Administration Pain Pantoprazole Sodium 40 mg 02/14/19 09:00 02/14/19 07:48 Protonix PO 03/16/19 08:59 40 mg DAILY SAE Administration Prednisone 40 mg 02/13/19 10:53 02/14/19 07:46 Prednisone PO 03/15/19 10:52 40 mg DAILY SAE Administration Senna/Docusate Sodium 2 tab 02/13/19 21:00 02/13/19 20:18 Senokot S PO 03/15/19 20:59 2 tab HS SAE Administration Sertraline HCl 100 mg 02/14/19 09:00 02/14/19 07:47 Zoloft PO 03/16/19 08:59 100 mg DAILY SAE Administration Thiamine HCl 100 mg 02/14/19 09:00 02/14/19 07:47 Vitamin B-1 PO 03/16/19 08:59 100 mg QAM SAE Administration Verapamil HCl 120 mg 02/13/19 10:53 02/14/19 07:47 Calan Sr PO 03/15/19 10:52 120 mg DAILY SAE Administration NPO Date Last Intake of Fluids: 02/14/19 Time Last Intake of Fluids: 06:08 Last Intake of Fluids Comment: sip of water with AM pill Date Last Intake of Solids: 02/13/19 Time Last Intake of Solids: 17:30 Past Medical History Medical History Alcohol use BPH (benign prostatic hyperplasia) Chronic respiratory failure COPD (chronic obstructive pulmonary disease) Depression Diabetes mellitus, type II Dyslipidemia Esophageal stenosis "s/p dilation June 2016" GERD (gastroesophageal reflux disease) HTN (hypertension) Hypothyroidism Leg edema Paroxysmal atrial fibrillation Superficial thrombophlebitis "2009" TIA (transient ischemic attack) "1982" Exercise / Class Metabolic Activity III < 4 Walking/Shop/Light housework Past Family History Family History Other Diabetes Past Surgical History Surgical History History of cataract surgery S/P bronchoscopy Past Anesthesia History No Hx of Anesthesia Complications and No Family Hx of Anesthesia Complications History of PONV No Hx of PONV and No Hx of Motion Sickness Social History Smoking Status: Current every day smoker tobacco type: cigarettes Smoking cigarettes per day: 20-30 Do You Dip or Chew Tobacco: Yes (former) Hx Alcohol Use: Yes Alcohol type: beer alcohol intake frequency: other Alcohol Intake Frequency Comment: 3 beers a day Hx Substance Use: No substance use type: does not use Physical Exam Vital Signs Last Vital Signs Temp 37.1 C 02/14/19 10:11 Pulse 75 02/14/19 10:11 Resp 20 02/14/19 10:11 BP 109/50 L 02/14/19 10:11 Pulse Ox 95 02/14/19 10:11 Constitutional not obese ENMT Mouth: + edentulous Thyromental Distance: > or= 3.5 Finger Breadths Mallampati Class: II Neck normal visual inspection, trachea midline and + facial hair; neck extension not limited Respiratory + uses accessory muscles Auscultation: + diminished lung sounds and + wheezes Cardiovascular Rate/Rhythm: regular rate and regular rhythm Heart Sounds: no murmur Vessels: no carotid bruit Musculoskeletal Spine: lumbar spine normal to inspection; normal cervical ROM Neurologic moves all extremities Motor/Sensory: no sensory deficit Psychiatric Orientation: alert and oriented x 3 Testing Laboratory Results 02/14/19 06:21 02/14/19 06:21 PT 9.4 Seconds (9.0-12.0) 02/13/19 07:23 INR 0.9 (0.9-1.1) 02/13/19 07:23 APTT 22.8 Seconds (21.0-31.0) 02/13/19 07:23 Urine Color Yellow 02/13/19 13:15 Urine Appearance Clear (Clear) 02/13/19 13:15 Urine pH 6.0 (4.5-7.5) 02/13/19 13:15 Ur Specific [place] 1.013 (1.000-1.030) 02/13/19 13:15 Urine Protein Negative (Negative) 02/13/19 13:15 Urine Glucose (UA) Negative (Negative) 02/13/19 13:15 Urine Ketones Negative (Negative) 02/13/19 13:15 Urine Nitrite Negative (Negative) 02/13/19 13:15 Ur Leukocyte Esterase Negative (Negative) 02/13/19 13:15 Blood Type B Positive 02/13/19 07:23 Antibody Screen NEGATIVE 02/13/19 07:23 02/14/19 07:43 POC Glucose 112 H Electrocardiogram Date: 02/13/19 Findings: + NSR @ (SR at 64 w/ short IN) and + RBBB (IRBBBB) Chest X-Ray Date: 02/13/19 Findings: + NAD and + other (emphysema) Echocardiogram Date: 04/25/18 EF: 65 LV Function: normal RWMA: + none Valvular Disease: + no significant valvular disease
[2019-02-14] MEDS ORDERED: ROPIVACAINE 0.5% HCL/PF 150 MG, BUPIVACAINE 0.5% MPF 30 ML, EPINEPHrine 30MG/30ML (OR U... INFIL ONE (10:30)
--- NOTE | 2019-02-14 10:41 | History & Physical Bridge Note ---
Date of Service February 14, 2019 History & Physical Bridge Note I have examined the patient, reviewed the History & Physical and in the interval since the performance of the History & Physical I have noted the following changes of clinical significance: no changes noted
--- NOTE | 2019-02-14 10:42 | Orthopedic Progress Note ---
Date of Service February 14, 2019 Assessment & Plan (1) Closed fracture of right hip: The patient is a 69-year-old male with displaced right femoral neck fracture sustained after a fall from standing height. The patient has significant past medical history and a minimal ambulator. The patient was medically stabilized on 02/14/2019. I indicated the patient for right hip hemiarthroplasty. The patient was informed of the risks and benefits of surgery, which include but not limited to infection, bleeding, blood clots, damage to nerves, vessels, bone and soft tissue, dislocation, leg length discrepancy, need for additional surgery and . The patient chose to move forward with surgical intervention and informed consent was obtained. Subjective Patient seen in preoperative holding, comfortable, no acute issues overnight, pain well controlled. Denies fevers, chills, nausea, vomiting, shortness of breath or chest pain. Review of Systems Review of Systems: All systems reviewed & are unremarkable except as noted in HPI & below Constitutional: as per Subjective / HPI Physical Exam Physical Exam: RLE NVSI +EHL/FHL/TA/GS SILT grossly, +2 DP pulse, compartments soft NT, short and externally rotated. Constitutional: WD/WN, vitals as above Results & Data Vital Signs (Past 12 Hours) Vital Signs Temp Pulse Pulse Pulse Resp BP Pulse Ox 02/14/19 10:11 37.1 C 75 20 109/50 L 95 02/14/19 08:00 36.6 C 75 20 132/63 91 02/14/19 06:59 69 18 93 02/14/19 04:43 36.8 C 70 18 130/68 93 02/14/19 02:17 80 02/13/19 23:44 36.7 C 74 18 123/68 90 (1) Closed fracture of right hip Encounter type: initial encounter Qualified Code(s): S72.001A - Fracture of unspecified part of neck of right femur, initial encounter for closed fracture
[2019-02-14] MEDS ORDERED: KETAMINE HCL INJ 50 MG/ML 10 ML VIAL ONE (10:52)
[2019-02-14] MEDS ORDERED: BUPIVACAINE 0.5 % 5 MG/1 ML PF 10ML VIAL ONE (11:28)
[2019-02-14] MEDS ORDERED: GLYCOPYRROLATE 0.2 MG/ML VIAL ONE (11:39)
[2019-02-14] MEDS ORDERED: ONDANSETRON INJ 2 MG/ML 2 ML VIAL ONE (11:39)
--- NOTE | 2019-02-14 12:23 | Post Operative Brief Note ---
Immediate Post Op Note v1 Date of Surgery February 14, 2019 Pre & Post Diagnosis Operation Date: 02/14/19 10:00 Pre-Op Diagnosis: Displaced right femoral neck fracture I identified the patient and participated in the time-out.: Yes Procedure Operation Date: 02/14/19 10:00 Actual Procedures p Right Bipolar Hemiarthroplasty(Right) - Vadim Zelaya DO Surgeon Vadim Zelaya, Contract Clerk [employer] Adrián Lopez Estimated Blood Loss 125 Findings Consistent with Post-Op Diagnosis Fluids 1700 cc LR Specimens femoral head Drains Ortega Catheter (Ortega in place prior to entering OR room and is patent and draining concentrated yellow urine. Anesthesia to monitor urine output intraoperatively.) Anesthesia Type Spinal MAC Complications none Disposition Disposition: Recovery Room Overlapping Procedure I was present for: the critical portions of procedure. I was immediately available: during the entire case. Back up surgeon: was not required during procedure.
--- NOTE | 2019-02-14 12:33 | Operative Report ---
Post Operative Report Pre & Post Diagnosis Operation Date: 02/14/19 10:00 Pre-Op Diagnosis: Displaced right femoral neck fracture Post-Op Diagnosis: Displaced right femoral neck fracture I identified the patient and participated in the time-out.: Yes Procedure Operation Date: 02/14/19 10:00 Actual Procedures p Right Bipolar Hemiarthroplasty(Right) - Vadim Zelaya DO Surgeon Vadim Zelaya DO Living Supervisor Adrián Lopez Estimated Blood Loss 125 Findings Consistent with Post-Op Diagnosis Fluids 1700 cc LR Specimens Femoral head Anesthesia Type Spinal MAC Complications none Disposition Disposition: Recovery Room Indications The patient is a 62-year-old man with displaced right femoral neck fracture sustained after a fall from standing height. Patient has significant past medical history and is a minimal ambulator. The patient was medically stabilized on 02/14/2019. I indicated the patient for right hip hemiarthroplasty. The patient was informed of the risks and benefits of surgery, which include but not limited to infection, bleeding, blood clots, damage to nerves, vessels, bone and soft tissue, dislocation, leg length discrepancy, need for additional surgery and . The patient chose to move forward with surgical intervention and informed consent was obtained. Description of Procedure Following induction of adequate spinal anesthesia, the patient was transferred to the OR table and placed in the lateral decubitus position with left hip down. The right hip was prepped and draped in usual sterile manner. A posterior incision was made. Subcutaneous tissue was sharply dissected. Electro cautery was used for hemostasis. Fascia was incised throughout the length of the wound and the piriformis was identified. A #1 Vicryl suture was used to tage the piriformis. The short external rotators were divided from the posterior aspect of the femur and a capsulotomy was performed. A second #1 Vicryl suture was used to tag the capsule. Next, I turned my attention to the femoral neck fracture. The fracture was relatively high on the calcar and decision was made to proceed with the oscillating saw and create the calcar osteotomy. This bone fragment was removed. Following this, tenaculum and cob elevator was utilized to remove the femoral head. The head was measured on the back table and the 52 mm femoral head was chosen as the size to be used. Next, attention was turned to the acetabulum which was found to have no significant arthritis. All bony debris was removed. A sponge was placed in the acetabulum. Attention was then turned to the proximal femur where box osteotome was used to gain access to the femoral canal. A canal finder and power lateralizing reamer were utilized to further open. Sequential raspings were taken up to a size 6, which was sunk completely and trial reduction was carried out and a 28+0 mm femoral head was chosen the size to be used with the 52 bipolar cup. Following a trial reduction, the hip was found to be stable to 45 degrees of internal rotation and 90 degrees of flexion with equal leg lengths. The calcar reamer was utilized to smooth the calcar and the instruments and trial components were removed. The hip was thoroughly irrigated with pulsatile irrigation with bacitracin. The size 6 extended offset Avenir stem was impacted into place. Following insertion of final stem component another trial reduction was carried out and again a +0 neck size was chosen as the size to be used. The final head and neck was impacted into position and the hip was reduced and stability assess and was found to be stable to 45 degrees of internal rotation and 90 degrees of flexion. The wound was again irrigated. Cherelle-incisional soft tissue was injected with the [place] Orth[employer] which includes a combination of Ropivicaine 0.5% 150mg, Bupivicaine 0.5%/Epinephrine 1:200,000 30ml, Toradol 30mg, Dexamethasone 4mg, Ketamine 10mg, Clonidine 100mcg and NSS 30ml solution. The capsule was repaired using #5 fiberwire sutures through drill holes. Following this, the short external rotators were reapproximated to the posterior aspect of the femur also through drill holes and these were tied. Once again the wound was copiously irrigated with sterile saline solution with bacitracin. Fascia was closed using #1 Vicryl [id number] sutures, subcutaneous tissue was closed using 2-0 vicryl, and skin was closed with giles. Sterile dressings, Silverlon were applied and abduction pillow placed between the legs. The patient tolerated the procedure well and was taken to recovery room in stable condition. Due to the complex nature of the procedure, the entire surgery was performed with the operational assistance of Adrián Lopez PA-C. The research program assistant, under direct supervision, was involved in the actual performance of all aspects of the surgical procedure including patient positioning, hemostasis, tissue retraction, instrument management and wound closure. I attest to the content of the Intraoperative Record and any orders documented therein. Any exceptions are noted below.
[2019-02-14] MEDS ORDERED: ePHEDrine sulfate 50 MG/ML AMP IV PRN (12:49)
[2019-02-14] MEDS ORDERED: ATROPINE SULFATE 0.1 MG/ML 10ML SYR IV PRN (12:49)
--- NOTE | 2019-02-14 14:09 | XRay Report ---
XR hip RT min 2V CLINICAL HISTORY: Post-Operative implant position COMPARISON: 02/13/2019 DISCUSSION: Anatomic alignment posttotal right hip arthroplasty. Could contact between prosthetic and underlying bone. Expected soft tissue postoperative change IMPRESSION: Anatomic alignment posttotal right hip arthroplasty. ACT 112: Negative or not required by law. The above report was generated using voice recognition software. It may contain grammatical, syntax or spelling errors. Electronically signed by: Adrián Vincent M.D. 02/14/2019 2:08 PM
--- NOTE | 2019-02-14 14:23 | Anesthesiology Progress Note ---
Date of Service February 14, 2019 Anesthesia Post Procedure Vital Signs Vital Signs: Temp Pulse Pulse Pulse Resp BP BP 02/14/19 14:05 36.6 C 75 21 98/66 L 02/14/19 13:50 81 24 106/60 02/14/19 13:40 36.2 C L 81 20 94/57 L 02/14/19 13:30 78 14 101/66 02/14/19 13:20 77 14 104/63 02/14/19 13:10 73 14 92/55 L 02/14/19 13:00 75 18 109/62 02/14/19 12:54 36 C L 72 16 110/51 L 02/14/19 10:11 37.1 C 75 20 109/50 L 02/14/19 08:00 36.6 C 75 20 132/63 02/14/19 06:59 69 18 02/14/19 04:43 36.8 C 70 18 130/68 02/14/19 02:17 80 02/13/19 23:44 36.7 C 74 18 123/68 02/13/19 19:51 24 02/13/19 19:39 37 C 84 22 123/64 02/13/19 18:48 77 02/13/19 15:42 36.6 C 81 20 100/64 02/13/19 15:09 75 18 Pulse Ox 02/14/19 14:05 95 02/14/19 13:50 94 02/14/19 13:40 95 02/14/19 13:30 100 02/14/19 13:20 100 02/14/19 13:10 97 02/14/19 13:00 99 02/14/19 12:54 99 02/14/19 10:11 95 02/14/19 08:00 91 02/14/19 06:59 93 02/14/19 04:43 93 02/14/19 02:17 02/13/19 23:44 90 02/13/19 19:51 90 02/13/19 19:39 96 02/13/19 18:48 02/13/19 15:42 98 02/13/19 15:09 98 Pain Intensity Right Hip: Pain Intensity: 8 Transfer of Care Handoff Completed per policy Notes Mental Status: alert / awake / arousable Patient Amnestic to Procedure: Yes Nausea / Vomiting: adequately controlled Pain: adequately controlled Airway Patency, RR, SpO2: stable & adequate BP & HR: stable & adequate Hydration State: stable & adequate Neuraxial Anesthesia: was administered and sensory block is resolving Anesthetic Complications: no major complications apparent
[2019-02-14] MEDS ORDERED: NALOXONE HCL 0.4 MG/1 ML VIAL/CARP IV PRN (14:35)
--- NOTE | 2019-02-14 15:52 | Orthopedic Progress Note ---
Date of Service February 14, 2019 Assessment & Plan (1) Closed fracture of right hip: Status post right hip hemiarthroplasty -Ancef x24 -DVT prophylaxis: SCDs, teds, Lovenox 40 mg daily -Weight-bear as tolerated right lower extremity -PT/OT when medically stable -Postoperative x-ray demonstrates well aligned well fixed orthopedic prosthesis without fracture dislocation. -A.m. lab Subjective Post Operative Progress Note Patient seen sitting up in bed, comfortable, denies complaints, pain well controlled, no acute issues. Review of Systems Review of Systems: All systems reviewed & are unremarkable except as noted in HPI & below Constitutional: as per Subjective / HPI Physical Exam Physical Exam: RLE NVSI +EHL/FHL/TA/GS SILT grossly, +2 DP pulse, compartments soft NT, dressing cdi. Abduction pillow in place. Constitutional: WD/WN, vitals as above Results & Data Vital Signs (Past 12 Hours) Vital Signs Temp Pulse Pulse Resp BP Pulse Ox 02/14/19 15:30 36.4 C L 71 20 95/53 L 96 02/14/19 15:17 70 18 97 02/14/19 14:46 36.4 C L 73 18 93/55 L 100 02/14/19 14:30 36.4 C L 74 20 104/52 L 97 02/14/19 14:05 36.6 C 75 21 98/66 L 95 02/14/19 13:50 81 24 106/60 94 02/14/19 13:40 36.2 C L 81 20 94/57 L 95 02/14/19 13:30 78 14 101/66 100 02/14/19 13:20 77 14 104/63 100 02/14/19 13:10 73 14 92/55 L 97 02/14/19 13:00 75 18 109/62 99 02/14/19 12:54 36 C L 72 16 110/51 L 99 02/14/19 10:11 37.1 C 75 20 109/50 L 95 02/14/19 08:00 36.6 C 75 20 132/63 91 02/14/19 06:59 69 18 93 02/14/19 04:43 36.8 C 70 18 130/68 93 (1) Closed fracture of right hip Encounter type: initial encounter Qualified Code(s): S72.001A - Fracture of unspecified part of neck of right femur, initial encounter for closed fracture
[2019-02-14] MEDS: SODIUM CHLORIDE 0.9% 1000ML 1,000 ML IV SCH (17:08)
--- NOTE | 2019-02-14 18:03 | Hospitalist Progress Note ---
Date of Service February 14, 2019 Assessment & Plan (1) Fall: (2) Right femoral fracture: Patient is a 69 yr male with H/O COPD, chronic hypoxemic respiratory failure on 3.5-4 L oxygen, TIA, tobacco use, dyslipidemia, HTN, paroxysmal atrial fibrillation not on anticoagulation, DM II, BLE edema, hypothyroidism presented with c/o dizziness then fall onto right side and c/o right hip pain. Right femoral neck fracture S/P Right Bipolar Hemiarthroplasty POD #0 Right HIP XRAY: Acute transcervical fracture of the right femur with minimal displacement. Right KNEE XRAY: No acute fracture or joint effusion of the right knee. Appreciate orthopedics input Pain control Bowel regimen to prevent constipation PT OT Wound care, activity as per Ortho (3) Chronic respiratory failure: (4) COPD exacerbation: Mild COPD exacerbation On chronic 3.5-4 L oxygen via nasal cannula at baseline Denies any increased cough, increased sputum production, increased shortness of breath Moderate wheezing on exam Continue Trelegy Ellipta Continue supplemental oxygen 3.5-4 L Continue doxycycline, prednisone, nebs (5) Paroxysmal atrial fibrillation: H/O paroxysmal atrial fibrillation occurring with COPD exacerbations. Not on anticoagulation. Follows with Dr. Lozoya cardiology Continue verapamil (6) TIA (transient ischemic attack): H/O TIA in 1982. Patient not on aspirin Continue atorvastatin (7) HTN (hypertension): Hold lisinopril due to [place] Continue verapamil with holding parameters Acute kidney injury Creatinine: 1.5 Hold lisinopril, Metformin Continue IV fluids Check renal ultrasound Avoid nephrotoxic agents as able Monitor renal function (8) Dyslipidemia: Continue atorvastatin (9) Diabetes mellitus, type II: A1c: 5.8 on 10/17/2018 Hold metformin NovoLog sliding scale per protocol (10) Hypothyroidism: TSH: 0.6 on 10/17/2018 Continue levothyroxine (11) GERD (gastroesophageal reflux disease): Continue PPI (12) Tobacco use: Smoking cessation encouraged (13) Alcohol use: Drinks 2 beers daily. Denies history of alcohol withdrawal Continue thiamine, folic acid Monitor for withdrawal DVT Px: Heparin SQ CODE STATUS Full Code Disposition PT OT prior to discharge Likely will need rehab placement Subjective Patient been seen and examined at bedside Patient underwent right bipolar hemiarthroplasty today Denies any hip pain currently Also denies any chest pain, shortness of breath, nausea, abdominal pain, dizziness No family at bedside Review of Systems Review of Systems: All systems reviewed & are unremarkable except as noted in HPI & below Physical Exam Physical Exam: Physical Exam: Vitals signs as noted above General Appearance:Moderately built and nourished, chronic ill-appearing, no apparent distress, Head: normocephalic, Atraumatic Eyes: normal inspection, EOMI Neck: supple, Trachea midline Respiratory/Chest: Decreased breath sounds, bilateral wheezing Cardiovascular: S1, S2, No murmur Abdomen/GI:Soft, Non tender, Bowel sounds present Extremities/Musculoskelatal:normal inspection, no edema, right hip surgical dressing Neurologic/Psych:AAOX3, grossly no focal neurological deficits Skin: normal color, warm, right knee skin tear Results & Data Vital Signs (Past 12 Hours) Vital Signs Temp Pulse Pulse Pulse Resp BP Pulse Ox 02/14/19 17:39 36.8 C 77 19 119/64 91 02/14/19 16:30 36.6 C 75 18 103/61 95 02/14/19 15:51 36.3 C L 69 19 105/69 92 02/14/19 15:30 36.4 C L 71 20 95/53 L 96 02/14/19 15:17 70 18 97 02/14/19 15:00 72 02/14/19 14:46 36.4 C L 73 18 93/55 L 100 02/14/19 14:30 36.4 C L 74 20 104/52 L 97 02/14/19 14:05 36.6 C 75 21 98/66 L 95 02/14/19 13:50 81 24 106/60 94 02/14/19 13:40 36.2 C L 81 20 94/57 L 95 02/14/19 13:30 78 14 101/66 100 02/14/19 13:20 77 14 104/63 100 02/14/19 13:10 73 14 92/55 L 97 02/14/19 13:00 75 18 109/62 99 02/14/19 12:54 36 C L 72 16 110/51 L 99 02/14/19 10:11 37.1 C 75 20 109/50 L 95 02/14/19 08:00 36.6 C 74 75 20 132/63 91 02/14/19 06:59 69 18 93 Laboratory Results Short CBC 02/14/19 Range/Units 06:21 WBC 11.41 H (4.8-10.8) K/uL Hgb 11.7 L (14.0-18.0) g/dL Hct 35.5 L (42-52) % Plt Count 134 (130-400) K/uL BMP 02/14/19 06:21 Sodium 135 L Potassium 4.5 Chloride 99 Carbon Dioxide 33 H BUN 29 H D Creatinine 1.58 H D Glucose 99 Calcium 8.9
[2019-02-14] MEDS: CEFAZOLIN 2000MG 2,000 MG/15 ML SYR IV SCH (19:52)
[2019-02-14] MEDS: MONTELUKAST SODIUM 10 MG TABLET PO SCH (20:48)
[2019-02-14] MEDS: GABAPENTIN 300 MG CAP PO SCH (20:48)
[2019-02-14] MEDS: DOCUSATE SODIUM/SENNA 50/8.6MG TAB PO SCH (20:49)
--- NOTE | 2019-02-14 22:12 | Ultrasound Report ---
RENAL ULTRASOUND HISTORY: Acute kidney injury. COMPARISON: Abdomen and pelvis CT 04/23/2018. FINDINGS: Right kidney: 9.7 cm. Small stones identified measuring up to 4 mm. This is not significantly changed . No hydronephrosis. Normal corticomedullary differentiation and cortical thickness. Left kidney: 9.7 cm. There is a 4 mm stone within the lower pole, unchanged. No hydronephrosis. Shira l corticomedullary differentiation and cortical thickness. Bladder: Decompressed by Ortega catheter. IMPRESSION: Bilateral nephrolithiasis. No hydronephrosis. ACT 112: Negative or not required by law. Electronically signed by: Joshua Guzman M.D. 02/14/2019 10:10 PM
[2019-02-15] MEDS: OXYCODONE HCL IR 5 MG TAB (IMMEDIATE RELEASE) PO PRN ×3 (01:57→13:18)
[2019-02-15] MEDS: HYDROmorphone INJ 0.5 MG/0.5 ML SYR IV PRN ×2 (02:48→10:56)
[2019-02-15] MEDS: CEFAZOLIN 2000MG 2,000 MG/15 ML SYR IV SCH (04:04)
[2019-02-15] MEDS: SODIUM CHLORIDE 0.9% 1000ML 1,000 ML IV SCH (05:30)
[2019-02-15] MEDS: LEVOTHYROXINE SODIUM 50 MCG TABLET PO SCH (06:03)
[2019-02-15 06:06] LABS: Basophils # (auto) 0.01 K/uL (0-0.2); Basophils % (auto) 0.1 %; Eosinophils # (auto) 0.01 K/uL (0-0.5); Eosinophils % (auto) 0.1 %; Hematocrit (blood only) 30.9 % (42-52); Hemoglobin 9.9 g/dL (14.0-18.0); Immature Granulocytes # (auto) 0.03 K/uL (0.00-0.02); Immature Granulocytes % (auto) 0.2 %; Lymphocytes # (auto) 0.87 K/uL (1.2-3.4); Mean Corpuscular Hemoglobin 32.5 pg (25-34); Mean Corpuscular Volume 101.3 fL (80-100); Mean Platelet Volume 11.6 fL (7.4-10.4); Monocytes # (auto) 1.28 K/uL (0.11-0.59); Monocytes % (auto) 10.3 %; Neutrophils # (auto) 10.28 K/uL (1.4-6.5); Neutrophils % (auto) 82.3 %; Platelet Count 121 K/uL (130-400); RDW Coefficient of Variation 12.9 % (11.5-14.5); Red Blood Count 3.05 M/uL (4.7-6.1); White Blood Count 12.48 K/uL (4.8-10.8)
[2019-02-15] MEDS: ALBUT/IPRATROP 3MG/0.5MG NEB 3 ML VIAL NEB SCH ×4 (06:09→19:07)
[2019-02-15 06:31] LABS: BUN Creatinine Ratio 21.6 (10-20); Calcium 9.1 mg/dl (8.5-10.1); Creatinine Clr Calc Pharmacy 51.1 ml/min; Est GFR (African American) 63.1; Est GFR (Non-African American) 54.4; Potassium 4.8 mmol/L (3.5-5.1)
--- NOTE | 2019-02-15 08:00 | Orthopedic Progress Note ---
Date of Service February 15, 2019 Assessment & Plan (1) Closed fracture of right hip: POD #1 s/p right hip hemiarthroplasty -Ancef x24 -DVT prophylaxis: SCDs, teds, Lovenox 40 mg daily -Weight-bear as tolerated right lower extremity -PT/OT when medically stable -Postoperative x-ray demonstrates well aligned well fixed orthopedic prosthesis without fracture dislocation. Subjective POD #1 s/p right hip bipolar hemiarthroplasty Review of Systems Review of Systems: All systems reviewed & are unremarkable except as noted in HPI & below Constitutional: no fever and no chills Cardiovascular: no chest pain and no dyspnea Gastrointestinal: no nausea and no vomiting Physical Exam Physical Exam: Vital Signs Temp Pulse Pulse Pulse Resp BP Pulse Ox 02/15/19 07:29 36.7 C 85 22 110/67 90 02/15/19 06:11 78 26 H 94 02/15/19 04:31 36.9 C 71 19 145/78 H 93 02/14/19 23:14 57 L 02/14/19 22:34 36.9 C 59 L 21 124/76 98 02/14/19 19:33 36.3 C L 64 18 105/63 96 02/14/19 19:29 74 16 98 02/14/19 17:39 36.8 C 77 19 119/64 91 02/14/19 16:30 36.6 C 75 18 103/61 95 02/14/19 15:51 36.3 C L 69 19 105/69 92 02/14/19 15:30 36.4 C L 71 20 95/53 L 96 02/14/19 15:17 70 18 97 02/14/19 15:00 72 02/14/19 14:46 36.4 C L 73 18 93/55 L 100 02/14/19 14:30 36.4 C L 74 20 104/52 L 97 02/14/19 14:05 36.6 C 75 21 98/66 L 95 02/14/19 13:50 81 24 106/60 94 02/14/19 13:40 36.2 C L 81 20 94/57 L 95 02/14/19 13:30 78 14 101/66 100 02/14/19 13:20 77 14 104/63 100 02/14/19 13:10 73 14 92/55 L 97 01/04/20 13:00 75 18 109/62 99 02/14/19 12:54 36 C L 72 16 110/51 L 99 02/14/19 10:11 37.1 C 75 20 109/50 L 95 02/14/19 08:00 36.6 C 74 75 20 132/63 91 Intake and Output 02/14/19 02/15/19 02/15/19 22:59 06:59 14:59 Intake Total 865.167 / 3280.000 714.833 / 3280.000 Output Total 200 / 1125 400 / 1125 Balance 665.167 / 2155.000 314.833 / 2155.000 Intake: IV 505.167 / 1100.000 594.833 / 1100.000 Nss 1000ML 1,0 00 ml @ 85 mls/hr 505.167 / 1100.000 594.833 / 1100.000 IV .[id number] SC H Rx#:[id number] Oral 360 / 480 120 / 480 Output: Urine Amount (Ca theter) 200 / 1000 400 / 1000 castro 200 / 1000 400 / 1000 Other: Weight 74.8 kg Constitutional: WD/WN, vitals as above Musculoskeletal: right hip: silverlon clean and dry, no tenderness anterior thigh or calf, NVDI, able to wiggle toes/ankle without pain. DP palpable Results & Data Vital Signs (Past 12 Hours) Vital Signs Temp Pulse Pulse Pulse Resp BP Pulse Ox 02/15/19 07:29 36.7 C 85 22 110/67 90 02/15/19 06:11 78 26 H 94 02/15/19 04:31 36.9 C 71 19 145/78 H 93 02/14/19 23:14 57 L 02/14/19 22:34 36.9 C 59 L 21 124/76 98 Laboratory Results Laboratory Results WBC 12.48 K/uL (4.8-10.8) H 02/15/19 05:41 RBC 3.05 M/uL (4.7-6.1) L 02/15/19 05:41 Hgb 9.9 g/dL (14.0-18.0) L 02/15/19 05:41 Hct 30.9 % (42-52) L 02/15/19 05:41 MCV 101.3 fL (80-100) H 02/15/19 05:41 MCH 32.5 pg (25-34) 02/15/19 05:41 MCHC 32.0 g/dL (32-36) 02/15/19 05:41 RDW Std Deviation 48.0 fL (36.4-46.3) H 02/15/19 05:41 RDW Coeff of [place] 12.9 % (11.5-14.5) 02/15/19 05:41 Plt Count 121 K/uL (130-400) L 02/15/19 05:41 MPV 11.6 fL (7.4-10.4) H 02/15/19 05:41 Immature Gran % (Auto) 0.2 % 02/15/19 05:41 Neut % (Auto) 82.3 % 02/15/19 05:41 Lymph % (Auto) 7.0 % 02/15/19 05:41 [place] % (Auto) 10.3 % 02/15/19 05:41 Eos % (Auto) 0.1 % 02/15/19 05:41 Baso % (Auto) 0.1 % 02/15/19 05:41 Immature Gran # (Auto) 0.03 K/uL (0.00-0.02) H 02/15/19 05:41 Neut # (Auto) 10.28 K/uL (1.4-6.5) H 02/15/19 05:41 Lymph # (Auto) 0.87 K/uL (1.2-3.4) L 02/15/19 05:41 [place] # (Auto) 1.28 K/uL (0.11-0.59) H 02/15/19 05:41 Eos # (Auto) 0.01 K/uL (0-0.5) 02/15/19 05:41 Baso # (Auto) 0.01 K/uL (0-0.2) 02/15/19 05:41 PT 9.4 Seconds (9.0-12.0) 02/13/19 07:23 INR 0.9 (0.9-1.1) 02/13/19 07:23 APTT 22.8 Seconds (21.0-31.0) 02/13/19 07:23 PTT Ratio 0.8 02/13/19 07:23 Sodium 133 mmol/L (136-145) L 02/15/19 05:41 Potassium 4.8 mmol/L (3.5-5.1) 02/15/19 05:41 Chloride 99 mmol/L (98-107) 02/15/19 05:41 Carbon Dioxide 30 mmol/L (21-32) 02/15/19 05:41 Anion Gap 5.0 (3-11) 02/15/19 05:41 BUN 29 mg/dl (7-18) H 02/15/19 05:41 Creatinine 1.34 mg/dl (0.6-1.4) 02/15/19 05:41 Est Cr Clr Drug Dosing 51.1 ml/min 02/15/19 05:41 Est GFR ( Amer) 63.1 02/15/19 05:41 Est GFR (Non-Af Amer) 54.4 02/15/19 05:41 BUN/Creatinine Ratio 21.6 (10-20) H 02/15/19 05:41 Glucose 85 mg/dl (70-99) 02/15/19 05:41 POC Glucose 99 (70-99) 02/15/19 07:10 Calcium 9.1 mg/dl (8.5-10.1) 02/15/19 05:41 Magnesium 2.3 mg/dl (1.8-2.4) 02/14/19 06:21 Urine Color Yellow 02/13/19 13:15 Urine Appearance Clear (Clear) 02/13/19 13:15 Urine pH 6.0 (4.5-7.5) 02/13/19 13:15 Ur Specific [place] 1.013 (1.000-1.030) 02/13/19 13:15 Urine Protein Negative (Negative) 02/13/19 13:15 Urine Glucose (UA) Negative (Negative) 02/13/19 13:15 Urine Ketones Negative (Negative) 02/13/19 13:15 Urine Blood Negative (Negative) 02/13/19 13:15 Urine Nitrite Negative (Negative) 02/13/19 13:15 Urine Bilirubin Negative (Negative) 02/13/19 13:15 Urine Urobilinogen Negative (Negative) 02/13/19 13:15 Ur Leukocyte Esterase Negative (Negative) 02/13/19 13:15 Nasal Screen MRSA (PCR) Negative (Negative) 02/13/19 11:47 Blood Type B Positive 01/03/20 07:23 Antibody Screen NEGATIVE 02/13/19 07:23 Diagnostic Findings XR hip RT min 2V CLINICAL HISTORY: Post-Operative implant position COMPARISON: 02/13/2019 DISCUSSION: Anatomic alignment posttotal right hip arthroplasty. Could contact between prosthetic and underlying bone. Expected soft tissue postoperative change IMPRESSION: Anatomic alignment posttotal right hip arthroplasty. (1) Closed fracture of right hip Encounter type: initial encounter Qualified Code(s): S72.001A - Fracture of unspecified part of neck of right femur, initial encounter for closed fracture
[2019-02-15] MEDS: SERTRALINE HCL 100 MG TABLET PO SCH (08:20)
[2019-02-15] MEDS: ATORVASTATIN 40 MG TAB PO SCH (08:20)
[2019-02-15] MEDS: FOLIC ACID 1 MG TAB PO SCH (08:20)
[2019-02-15] MEDS: PANTOprazole 40 MG TAB PO SCH (08:20)
[2019-02-15] MEDS: VERAPAMIL HCL 120 MG TABCR PO SCH (08:20)
[2019-02-15] MEDS: predniSONE 20 MG TAB PO SCH (08:20)
[2019-02-15] MEDS: DOCUSATE SODIUM 100 MG CAP PO SCH ×2 (08:20→21:01)
[2019-02-15] MEDS: HEPARIN SOD 5,000 UNIT/0.5 ML VIAL SQ SCH ×2 (08:21→21:01)
[2019-02-15] MEDS: INSULIN ASPART 100 UNITS/ML 3 ML PEN SC SCH ×4 (08:21→21:02)
[2019-02-15] MEDS: DOXYCYCLINE HYCLATE 100 MG CAP PO SCH ×2 (08:21→21:03)
[2019-02-15] MEDS: THIAMINE HCL 100 MG TAB PO SCH (08:21)
[2019-02-15] MEDS: NICOTINE 21 MG/24 HR TDSY TD SCH (08:22)
[2019-02-15] MEDS ORDERED: ENOXAPARIN INJ 40 MG/0.4 ML SYR SQ SCH (09:00)
[2019-02-15 10:41] LABS: Base Excess ABG 3.5 mEq/L (-9-1.8); HCO3 ABG 29 mmol/L (19-24); Oxygen Saturation ABG 94.8 % (90-95); PCO2 ABG 49 mmHg (35-46); PO2 ABG 76 mm/Hg (80-95); pH ABG 7.39 (7.35-7.45)
[2019-02-15 10:45] LABS: Allen Test Pos (Pos)
[2019-02-15] MEDS: methylPREDNISolone 40 MG in SYRINGE 0 ML IV SCH ×2 (10:56→23:42)
--- NOTE | 2019-02-15 11:26 | XRay Report ---
XR chest 1V portable CLINICAL HISTORY: SOB COMPARISON STUDY: Chest CT February 21, 2018. Chest radiograph February 13, 2019. FINDINGS: No pneumothorax is noted. There are trace bilateral pleural effusions. Pulmonary vascular c ongestion is noted. There is underlying emphysema. Cardiomediastinal silhouette is stable. Kyphotic p ositioning is noted. IMPRESSION: 1. Pulmonary vascular congestion with suspected trace bilateral pleural effusions. 2. Emphysema. ACT 112: Negative or not required by law. Electronically signed by: Cam Perez M.D. 02/15/2019 11:25 AM
[2019-02-15] MEDS ORDERED: FUROSEMIDE 20 MG TAB PO ONE (12:31)
[2019-02-15] MEDS ORDERED: FUROSEMIDE 20 MG in SYRINGE 0 ML IV ONE (15:45)
--- NOTE | 2019-02-15 15:47 | Hospitalist Progress Note ---
Date of Service February 15, 2019 Assessment & Plan (1) Fall: (2) Right femoral fracture: Patient is a 69 yr male with H/O COPD, chronic hypoxemic respiratory failure on 3.5-4 L oxygen, TIA, tobacco use, dyslipidemia, HTN, paroxysmal atrial fibrillation not on anticoagulation, DM II, BLE edema, hypothyroidism presented with c/o dizziness then fall onto right side and c/o right hip pain. Right femoral neck fracture S/P Right Bipolar Hemiarthroplasty POD #1 Right HIP XRAY: Acute transcervical fracture of the right femur with minimal displacement. Right KNEE XRAY: No acute fracture or joint effusion of the right knee. Appreciate orthopedics input Pain control Bowel regimen to prevent constipation PT OT as able Wound care, activity as per Ortho Monitor CBC May Need Rehab placement (3) Chronic respiratory failure: (4) COPD exacerbation: Mild COPD exacerbation On chronic 3.5-4 L oxygen via nasal cannula at baseline Denies any increased cough, increased sputum production, increased shortness of breath Moderate wheezing on exam Continue Trelegy Ellipta Continue supplemental oxygen 3.5-4 L Continue doxycycline, Solumedrol, nebs Consider optical lathe operator evaluation if needed Pulmonary vascular congestion Likely secondary to IV fluids IV Lasix as needed IV fluids discontinued Monitor volume status closely (5) Paroxysmal atrial fibrillation: H/O paroxysmal atrial fibrillation occurring with COPD exacerbations. Not on anticoagulation. Follows with Dr. Lozoya cardiology Continue verapamil with Holding paramater (6) TIA (transient ischemic attack): H/O TIA in 1982. Patient not on aspirin Continue atorvastatin (7) HTN (hypertension): Hold lisinopril due to [place] Continue verapamil with holding parameters Acute kidney injury Creatinine: 1.5>>1.34 Renal USD:Bilateral nephrolithiasis. No hydronephrosis. Hold lisinopril, Metformin Received IV fluids Avoid nephrotoxic agents as able Monitor renal function (8) Dyslipidemia: Continue atorvastatin (9) Diabetes mellitus, type II: A1c: 5.8 on 10/17/2018 Hold metformin NovoLog sliding scale per protocol (10) Hypothyroidism: TSH: 0.6 on 10/17/2018 Continue levothyroxine (11) GERD (gastroesophageal reflux disease): Continue PPI (12) Tobacco use: Smoking cessation encouraged (13) Alcohol use: Drinks 2 beers daily. Denies history of alcohol withdrawal Continue thiamine, folic acid Monitor for withdrawal DVT Px: Heparin SQ CODE STATUS Full Code Disposition PT OT prior to discharge Likely will need rehab placement Subjective Patient been seen and examined at bedside Reports SOB on exertion Desaturates easily with exertion Has Right Hip pain with movement CXR today suggestive of pulmonary vascular congestion IV fluids discontinued Denies any chest pain, nausea, abdominal pain, dizziness Has chronic cough No family at bedside Review of Systems Review of Systems: All systems reviewed & are unremarkable except as noted in HPI & below Physical Exam Physical Exam: Physical Exam: Vitals signs as noted above General Appearance:Moderately built and nourished, chronic ill-appearing, no apparent distress, Head: normocephalic, Atraumatic Eyes: normal inspection, EOMI Neck: supple, Trachea midline Respiratory/Chest: Decreased breath sounds, bilateral wheezing Cardiovascular: S1, S2, No murmur Abdomen/GI:Soft, Non tender, Bowel sounds present Extremities/Musculoskelatal:normal inspection, no edema, right hip surgical dressing Neurologic/Psych:AAOX3, grossly no focal neurological deficits Skin: normal color, warm, right knee skin tear Results & Data Vital Signs (Past 12 Hours) Vital Signs Temp Pulse Pulse Resp BP Pulse Ox Pulse Ox 02/15/19 15:21 36.7 C 88 17 122/67 97 02/15/19 14:35 97 02/15/19 14:28 76 18 93 02/15/19 11:48 37.0 C 84 22 96/53 L 93 02/15/19 11:20 76 20 96 02/15/19 07:29 36.7 C 85 22 110/67 90 02/15/19 06:11 78 26 H 94 02/15/19 04:31 36.9 C 71 19 145/78 H 93 Pulse Ox 02/15/19 15:21 02/15/19 14:35 88 L 02/15/19 14:28 02/15/19 11:48 02/15/19 11:20 02/15/19 07:29 02/15/19 06:11 02/15/19 04:31 Laboratory Results Short CBC 02/15/19 Range/Units 05:41 WBC 12.48 H (4.8-10.8) K/uL Hgb 9.9 L (14.0-18.0) g/dL Hct 30.9 L (42-52) % Plt Count 121 L (130-400) K/uL BMP 02/15/19 05:41 Sodium 133 L Potassium 4.8 Chloride 99 Carbon Dioxide 30 BUN 29 H Creatinine 1.34 Glucose 85 Calcium 9.1
[2019-02-15] MEDS: GABAPENTIN 300 MG CAP PO SCH (21:02)
[2019-02-15] MEDS: MONTELUKAST SODIUM 10 MG TABLET PO SCH (21:03)
[2019-02-15] MEDS: DOCUSATE SODIUM/SENNA 50/8.6MG TAB PO SCH (21:03)
--- NOTE | 2019-02-16 04:28 | Communication Note ---
Date of Service: February 16, 2019 Patient noted to be very confused and restless overnight as per RN. No fever, no chills. U/A trace WBC esterase AP Encephalopathy ? Steroid-induced ? 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
[2019-02-16] MEDS ORDERED: OLANZapine 10 MG/2.1 ML SDV IM PRN (04:32)
[2019-02-16 05:52] LABS: Hematocrit (blood only) 28.1 % (42-52); Hemoglobin 9.3 g/dL (14.0-18.0); Immature Granulocytes # (auto) 0.03 K/uL (0.00-0.02); Immature Granulocytes % (auto) 0.3 %; Lymphocytes # (auto) 0.46 K/uL (1.2-3.4); Mean Corpuscular Hgb Conc 33.1 g/dL (32-36); Mean Corpuscular Volume 99.6 fL (80-100); Mean Platelet Volume 11.7 fL (7.4-10.4); Monocytes % (auto) 5.3 %; Neutrophils # (auto) 10.27 K/uL (1.4-6.5); Neutrophils % (auto) 90.4 %; Platelet Count 120 K/uL (130-400); RDW Coefficient of Variation 12.7 % (11.5-14.5); RDW Standard Deviation 46.4 fL (36.4-46.3); Red Blood Count 2.82 M/uL (4.7-6.1); White Blood Count 11.36 K/uL (4.8-10.8)
[2019-02-16 05:53] LABS: Base Excess ABG 7.3 mEq/L (-9-1.8); HCO3 ABG 33 mmol/L (19-24); Oxygen Saturation ABG 94.7 % (90-95); PCO2 ABG 50 mmHg (35-46); PO2 ABG 74 mm/Hg (80-95); pH ABG 7.43 (7.35-7.45)
[2019-02-16 05:54] LABS: Allen Test Pos (Pos)
[2019-02-16 06:03] LABS: Partial Thromboplastin Ratio 0.9; Partial Thromboplastin Time 24.8 Seconds (21.0-31.0)
[2019-02-16] MEDS: LEVOTHYROXINE SODIUM 50 MCG TABLET PO SCH (06:22)
[2019-02-16] MEDS: ACETAMINOPHEN 325 MG TAB PO PRN (06:22)
[2019-02-16 06:24] LABS: Albumin Level 2.5 gm/dl (3.4-5.0); BUN Creatinine Ratio 24.1 (10-20); Calcium 8.9 mg/dl (8.5-10.1); Creatinine Clr Calc Pharmacy 55.2 ml/min; Est GFR (African American) 63.1; Est GFR (Non-African American) 54.4; Magnesium 2.1 mg/dl (1.8-2.4); Potassium 4.6 mmol/L (3.5-5.1)
[2019-02-16 06:25] LABS: Appearance Urine Clear (Clear); Bacteria Urine Automated Negative (Negative); Bilirubin Urine Negative (Negative); Blood Urine 3+ (Negative); Color Urine Yellow; Glucose Urine UA Negative (Negative); Ketones Urine Negative (Negative); Leukocyte Esterase Urine Trace (Negative); Nitrite Urine Negative (Negative); Protein Urine 1+ (Negative); RBC Urine Automated >30 /hpf (0-4); Specific Gravity Urine 1.021 (1.000-1.030); Urobilinogen Urine Negative (Negative)
--- NOTE | 2019-02-16 06:25 | XRay Report ---
XR chest 1V portable CLINICAL HISTORY: low o2 COMPARISON STUDY: Chest radiograph February 15, 2019. FINDINGS: Lung volumes are normal. Lungs are clear. There is no pneumothorax or pleural effusion. Car diac size is normal. Mediastinal contours are normal. There is no evidence for pulmonary edema. Right apical scarring is unchanged. There is underlying emphysema. IMPRESSION: 1. No acute findings. 2. Emphysema. ACT 112: Negative or not required by law. Electronically signed by: Cam Perez M.D. 02/16/2019 6:24 AM
[2019-02-16 06:27] LABS: Albumin Globulin Ratio 0.7 (0.9-2); Bilirubin,Total 0.4 mg/dl (0.2-1); Globulin 3.6 gm/dl (2.5-4.0); Total Protein 6.1 gm/dl (6.4-8.2)
--- NOTE | 2019-02-16 06:32 | CT Scan Report ---
CT OF THE HEAD WITHOUT CONTRAST CLINICAL HISTORY: Altered mental status. COMPARISON STUDY: Head CT June 14, 2011. CT DOSE: 614.27 mGy.cm TECHNIQUE: Helical axial images of the head were obtained without IV contrast. Automated exposure con trol was utilized for the study. A dose lowering technique was utilized adhering to the principles o f ALARA. FINDINGS: No acute intracranial hemorrhage, midline shift or mass effect is present. The ventricular system is unremarkable. The basilar cisterns are patent. No extra-axial collections are present. Ther e are no findings to suggest acute dural sinus thrombosis or acute territorial infarct. No significan t calvarial abnormalities are present. Visualized portions of the sinuses and mastoid air cells are c lear. 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 IMPRESSION: No acute intracranial findings. No change in appearance of the brain. ACT 112: Negative or not required by law. Electronically signed by: Cam Perez M.D. 02/16/2019 6:30 AM
[2019-02-16] MEDS: ALBUT/IPRATROP 3MG/0.5MG NEB 3 ML VIAL NEB SCH ×4 (07:01→19:29)
[2019-02-16] MEDS: cefTRIAXone SODIUM 1,000 MG in DEXTROSE 5% 50 ML IV SCH (07:35)
[2019-02-16] MEDS: OXYCODONE HCL IR 5 MG TAB (IMMEDIATE RELEASE) PO PRN ×3 (07:36→20:46)
[2019-02-16] MEDS: DOXYCYCLINE HYCLATE 100 MG CAP PO SCH ×2 (07:37→20:48)
[2019-02-16] MEDS: THIAMINE HCL 100 MG TAB PO SCH (07:38)
[2019-02-16] MEDS: NICOTINE 21 MG/24 HR TDSY TD SCH (07:38)
[2019-02-16] MEDS: DOCUSATE SODIUM 100 MG CAP PO SCH ×2 (07:38→20:49)
[2019-02-16] MEDS: SERTRALINE HCL 100 MG TABLET PO SCH (07:38)
[2019-02-16] MEDS: PANTOprazole 40 MG TAB PO SCH (07:38)
[2019-02-16] MEDS: FOLIC ACID 1 MG TAB PO SCH (07:38)
[2019-02-16] MEDS: ATORVASTATIN 40 MG TAB PO SCH (07:38)
[2019-02-16] MEDS: VERAPAMIL HCL 120 MG TABCR PO SCH (07:39)
[2019-02-16] MEDS: INSULIN ASPART 100 UNITS/ML 3 ML PEN SC SCH ×4 (09:08→20:38)
[2019-02-16] MEDS: methylPREDNISolone 40 MG in SYRINGE 0 ML IV SCH ×2 (10:30→20:38)
--- NOTE | 2019-02-16 16:05 | Orthopedic Progress Note ---
Date of Service February 16, 2019 Assessment & Plan (1) Closed fracture of right hip: POD #2 s/p right hip hemiarthroplasty -Ancef x24 -DVT prophylaxis: SCDs, teds, Lovenox 40 mg daily -Weight-bear as tolerated right lower extremity -PT/OT when medically stable -Postoperative x-ray demonstrates well aligned well fixed orthopedic prosthesis without fracture dislocation. -am labs: Hgb 9.3 Subjective Post Operative Progress Note Patient seen sitting in chair at bedside eating lunch, comfortable, denies complaints, pain well controlled, no acute issues. Denies F/C/N/V/SOP/CP. Review of Systems Review of Systems: All systems reviewed & are unremarkable except as noted in HPI & below Constitutional: as per Subjective / HPI Physical Exam Physical Exam: RLE NVSI +EHL/FHL/TA/GS SILT grossly, +2 DP pulse, compartments soft NT, dressing cdi. Constitutional: WD/WN, vitals as above Results & Data Vital Signs (Past 12 Hours) Vital Signs Temp Pulse Pulse Resp BP Pulse Ox 02/16/19 15:24 36.7 C 77 18 107/62 91 02/16/19 15:17 92 H 18 93 02/16/19 15:00 66 02/16/19 13:34 95 02/16/19 12:30 36.5 C 69 20 99 02/16/19 11:15 68 20 97 02/16/19 08:15 36.6 C 59 L 20 121/72 97 02/16/19 08:00 56 L 02/16/19 07:03 64 18 98 (1) Closed fracture of right hip Encounter type: initial encounter Qualified Code(s): S72.001A - Fracture of unspecified part of neck of right femur, initial encounter for closed fracture
--- NOTE | 2019-02-16 17:53 | Hospitalist Progress Note ---
Date of Service February 16, 2019 Assessment & Plan (1) Fall: (2) Right femoral fracture: Patient is a 69 yr male with H/O COPD, chronic hypoxemic respiratory failure on 3.5-4 L oxygen, TIA, tobacco use, dyslipidemia, HTN, paroxysmal atrial fibrillation not on anticoagulation, DM II, BLE edema, hypothyroidism presented with c/o dizziness then fall onto right side and c/o right hip pain. Right femoral neck fracture S/P Right Bipolar Hemiarthroplasty POD #2 Right HIP XRAY: Acute transcervical fracture of the right femur with minimal displacement. Right KNEE XRAY: No acute fracture or joint effusion of the right knee. Appreciate orthopedics input Pain is controlled Bowel regimen to prevent constipation PT OT as able Wound care, activity as per Ortho Monitor CBC Needs Rehab placement Metabolic encephalopathy CT head:No acute intracranial findings. No change in appearance of the brain. Abnormal UA Normal ammonia levels Empirically started on Rocephin Follow-up urine cultures Reorient frequently to minimize delirium (3) Chronic respiratory failure: (4) COPD exacerbation: Mild COPD exacerbation On chronic 3.5-4 L oxygen via nasal cannula at baseline Denies any increased cough, increased sputum production, increased shortness of breath continue Trelegy Ellipta Continue supplemental oxygen 3.5-4 L Continue doxycycline, Solumedrol, nebs Respiratory status improved Pulmonary vascular congestion Likely secondary to IV fluids IV Lasix as needed IV fluids discontinued Volume status improved (5) Paroxysmal atrial fibrillation: H/O paroxysmal atrial fibrillation occurring with COPD exacerbations. Not on anticoagulation. Follows with Dr. Lozoya cardiology Continue verapamil with Holding paramater (6) TIA (transient ischemic attack): H/O TIA in 1982. Patient not on aspirin Continue atorvastatin (7) HTN (hypertension): Hold lisinopril due to [place] Continue verapamil with holding parameters Acute kidney injury Creatinine: 1.5>>1.34 Renal USD:Bilateral nephrolithiasis. No hydronephrosis. Hold lisinopril, Metformin Received IV fluids Avoid nephrotoxic agents as able Monitor renal function (8) Dyslipidemia: Continue atorvastatin (9) Diabetes mellitus, type II: A1c: 5.8 on 10/17/2018 Hold metformin Continue Insulin while hospitalized (10) Hypothyroidism: TSH: 0.6 on 10/17/2018 Continue levothyroxine (11) GERD (gastroesophageal reflux disease): Continue PPI (12) Tobacco use: Smoking cessation encouraged (13) Alcohol use: Drinks 2 beers daily. Denies history of alcohol withdrawal Continue thiamine, folic acid Monitor for withdrawal DVT Px: Heparin SQ CODE STATUS Full Code Disposition PT OT Needs rehab placement Subjective Patient been seen and examined at bedside Sitting in chair comfortably this morning Respiratory status much improved Hip pain at surgical site is controlled Mental status improved Denies any chest pain, nausea, abdominal pain, dizziness Has chronic cough Review of Systems Review of Systems: All systems reviewed & are unremarkable except as noted in HPI & below Physical Exam Physical Exam: Physical Exam: Vitals signs as noted above General Appearance:Moderately built and nourished, chronic ill-appearing, no apparent distress Head: normocephalic, Atraumatic Eyes: normal inspection, EOMI Neck: supple, Trachea midline Respiratory/Chest: Decreased breath sounds, CTA Cardiovascular: S1, S2, No murmur Abdomen/GI:Soft, Non tender, Bowel sounds present Extremities/Musculoskelatal:normal inspection, no edema, right hip surgical dressing Neurologic/Psych:AAOX3, grossly no focal neurological deficits Skin: normal color, warm, right knee skin tear Results & Data Vital Signs (Past 12 Hours) Vital Signs Temp Pulse Pulse Resp BP Pulse Ox 02/16/19 15:24 36.7 C 77 18 107/62 91 02/16/19 15:17 92 H 18 93 02/16/19 15:00 66 02/16/19 13:34 95 02/16/19 12:30 36.5 C 69 20 99 02/16/19 11:15 68 20 97 02/16/19 08:15 36.6 C 59 L 20 121/72 97 02/16/19 08:00 56 L 02/16/19 07:03 64 18 98 Laboratory Results Short CBC 02/16/19 Range/Units 05:22 WBC 11.36 H (4.8-10.8) K/uL Hgb 9.3 L (14.0-18.0) g/dL Hct 28.1 L (42-52) % Plt Count 120 L (130-400) K/uL BMP 02/16/19 05:22 Sodium 134 L Potassium 4.6 Chloride 100 Carbon Dioxide 32 BUN 32 H Creatinine 1.34 Glucose 174 H Calcium 8.9 Liver Function 02/16/19 Range/Units 05:22 Total Bilirubin 0.4 (0.2-1) mg/dl AST 48 H (15-37) U/L ALT 23 (12-78) U/L Alkaline Phosphatase 83 (45-117) U/L Albumin 2.5 L (3.4-5.0) gm/dl Urine 02/16/19 Range/Units 04:48 Urine Color Yellow Urine Appearance Clear (Clear) Urine pH 5.0 (4.5-7.5) Ur Specific [place] 1.021 (1.000-1.030) Urine Protein 1+ H (Negative) Urine Glucose (UA) Negative (Negative)
[2019-02-16] MEDS: FLUTICASONE/SALMETEROL 100/50 (ADVAIR) 14 PUFF/1 INHALER INH SCH (20:38)
[2019-02-16] MEDS: MONTELUKAST SODIUM 10 MG TABLET PO SCH (20:47)
[2019-02-16] MEDS: GABAPENTIN 300 MG CAP PO SCH (20:47)
[2019-02-16] MEDS: HEPARIN SOD 5,000 UNIT/0.5 ML VIAL SQ SCH (20:47)
[2019-02-16] MEDS: DOCUSATE SODIUM/SENNA 50/8.6MG TAB PO SCH (20:49)
[2019-02-16] MEDS: INSULIN GLARGINE SOLOSTAR 100 UNITS/ML 3 ML PEN SC SCH (21:36)
[2019-02-17] MEDS ORDERED: ALBUT/IPRATROP 3MG/0.5MG NEB 3 ML VIAL NEB STA (05:06)
[2019-02-17] MEDS ORDERED: MAGNESIUM SULFATE / D5W 1 GM/100 ML BAG IV ONE (05:09)
[2019-02-17] MEDS: ALBUT/IPRATROP 3MG/0.5MG NEB 3 ML VIAL NEB SCH ×2 (05:20→07:21)
[2019-02-17] MEDS: LEVOTHYROXINE SODIUM 50 MCG TABLET PO SCH (05:39)
[2019-02-17 05:46] LABS: Hematocrit (blood only) 26.9 % (42-52); Hemoglobin 9.1 g/dL (14.0-18.0); Immature Granulocytes # (auto) 0.06 K/uL (0.00-0.02); Immature Granulocytes % (auto) 0.5 %; Lymphocytes # (auto) 0.41 K/uL (1.2-3.4); Lymphocytes % (auto) 3.3 %; Mean Corpuscular Hemoglobin 32.7 pg (25-34); Mean Corpuscular Hgb Conc 33.8 g/dL (32-36); Mean Corpuscular Volume 96.8 fL (80-100); Mean Platelet Volume 11.4 fL (7.4-10.4); Monocytes % (auto) 8.1 %; Neutrophils # (auto) 10.91 K/uL (1.4-6.5); Neutrophils % (auto) 88.1 %; Platelet Count 141 K/uL (130-400); RDW Coefficient of Variation 12.9 % (11.5-14.5); RDW Standard Deviation 45.5 fL (36.4-46.3); Red Blood Count 2.78 M/uL (4.7-6.1); White Blood Count 12.38 K/uL (4.8-10.8)
[2019-02-17] MEDS ORDERED: methylPREDNISolone 20 MG in SYRINGE 0 ML IV STA (05:46)
[2019-02-17 05:52] LABS: Base Excess ABG 5.3 mEq/L (-9-1.8); HCO3 ABG 31 mmol/L (19-24); PCO2 ABG 50 mmHg (35-46); PO2 ABG 90 mm/Hg (80-95)
[2019-02-17 06:02] LABS: Allen Test Pos (Pos)
[2019-02-17] MEDS: cefTRIAXone SODIUM 1,000 MG in DEXTROSE 5% 50 ML IV SCH (06:16)
[2019-02-17 06:19] LABS: BUN Creatinine Ratio 35.5 (10-20); Calcium 9.1 mg/dl (8.5-10.1); Creatinine Clr Calc Pharmacy 63.5 ml/min; Est GFR (African American) 75.9; Est GFR (Non-African American) 65.5; Magnesium 2.3 mg/dl (1.8-2.4); Potassium 4.2 mmol/L (3.5-5.1)
--- NOTE | 2019-02-17 07:29 | XRay Report ---
XR chest 1V portable HISTORY: Shortness of breath. COMPARISON: Chest 02/16/2019. FINDINGS: Mild emphysema. The heart is normal in size. No pleural effusions. No pneumothorax. No evid ence for pulmonary edema. No new focal lung consolidations to suggest pneumonia. IMPRESSION: No significant change compared to the prior study. No acute process. ACT 112: Negative or not required by law. Electronically signed by: Joshua Guzman M.D. 02/17/2019 7:28 AM
[2019-02-17] MEDS ORDERED: METOPROLOL TARTRATE 1 MG/ML VIAL IV ONE (07:51)
[2019-02-17] MEDS ORDERED: NITROGLYCERIN SL 0.4 MG/TAB TAB ONE (07:52)
[2019-02-17] MEDS ORDERED: NITROGLYCERIN SL 0.4 MG/TAB TAB SL PRN (08:04)
[2019-02-17] MEDS ORDERED: METOPROLOL TARTRATE 1 MG/ML VIAL IV PRN ×2 (08:13→10:21)
[2019-02-17] MEDS ORDERED: Heparin IV Standard *NO* Bolus IV SCH (08:14)
[2019-02-17] MEDS: VERAPAMIL HCL 120 MG TABCR PO SCH (08:23)
[2019-02-17] MEDS: IPRATROPIUM BROMIDE NEB SOLN 0.02% 2.5 ML VIAL NEB SCH ×3 (08:55→18:01)
[2019-02-17] MEDS: LEVALBUTEROL HCL 0.63 MG/3 ML NEB NEB SCH ×3 (08:55→18:01)
[2019-02-17 09:02] LABS: INR 0.9 (0.9-1.1); Partial Thromboplastin Ratio 0.9; Partial Thromboplastin Time 23.1 Seconds (21.0-31.0); Prothrombin Time 9.4 Seconds (9.0-12.0)
--- NOTE | 2019-02-17 09:17 | Orthopedic Progress Note ---
Date of Service February 17, 2019 Assessment & Plan (1) Closed fracture of right hip: Postop day 3 status post right bipolar hemiarthroplasty A. fib with RVR -as per medicine service -DVT prophylaxis: SCDs, teds, Lovenox 40 mg daily -Weight-bear as tolerated right lower extremity -PT/OT -am labs as noted Ortho will sign off at this time. Instructions placed in the EHR. Please call with any questions. Supervising Physician Co-Signing Physician Notes Patient seen and examined, agree with above assessment and plan. Subjective Postop day 3 status post right bipolar hemiarthroplasty. Patient is currently sitting up at the bedside eating his breakfast. He has no complaints with his right hip and states that is feeling fine this morning. Pain is controlled. He denies any increased shortness of breath this morning and denies chest pain. I spoke to Dr Shelby this morning who stated that the patient having A. fib with RVR. Currently they are trying to control his heart rate. Patient states he otherwise feels well. He was hoping to go home today. Physical Exam Physical Exam: Silver[place] dressing is clean, dry, intact. Mild to moderate drainage in the dressing window. Noted ecchymosis around the Silverlon dressing itself which is not unusual for the surgery. Thigh is soft and nontender. Calves are soft nontender. Neurovascular is intact. Toes are mobile and he has good dorsiflexion/plantarflexion with his right ankle. Leg lengths appear equ al. Results & Data Vital Signs (Past 12 Hours) Vital Signs Temp Pulse Pulse Resp BP BP Pulse Ox 02/17/19 08:21 127 H 117/73 95 02/17/19 07:53 130 H 142/90 H 02/17/19 07:22 83 16 97 02/17/19 07:00 36.4 C L 67 18 149/80 H 97 02/17/19 05:23 66 16 99 02/17/19 03:13 36.4 C L 69 18 154/75 H 98 02/17/19 00:55 73 02/16/19 23:12 36.9 C 79 18 136/71 93 Laboratory Results Laboratory Results WBC 12.38 K/uL (4.8-10.8) H 02/17/19 05:38 RBC 2.78 M/uL (4.7-6.1) L 02/17/19 05:38 Hgb 9.1 g/dL (14.0-18.0) L 02/17/19 05:38 Hct 26.9 % (42-52) L 02/17/19 05:38 MCV 96.8 fL (80-100) 02/17/19 05:38 MCH 32.7 pg (25-34) 02/17/19 05:38 MCHC 33.8 g/dL (32-36) 02/17/19 05:38 RDW Std Deviation 45.5 fL (36.4-46.3) 02/17/19 05:38 RDW Coeff of [place] 12.9 % (11.5-14.5) 02/17/19 05:38 Plt Count 141 K/uL (130-400) 02/17/19 05:38 MPV 11.4 fL (7.4-10.4) H 02/17/19 05:38 Immature Gran % (Auto) 0.5 % 02/17/19 05:38 Neut % (Auto) 88.1 % 02/17/19 05:38 Lymph % (Auto) 3.3 % 02/17/19 05:38 [place] % (Auto) 8.1 % 02/17/19 05:38 Eos % (Auto) 0.0 % 02/17/19 05:38 Baso % (Auto) 0.0 % 02/17/19 05:38 Immature Gran # (Auto) 0.06 K/uL (0.00-0.02) H 02/17/19 05:38 Neut # (Auto) 10.91 K/uL (1.4-6.5) H 02/17/19 05:38 Lymph # (Auto) 0.41 K/uL (1.2-3.4) L 02/17/19 05:38 [place] # (Auto) 1.00 K/uL (0.11-0.59) H 02/17/19 05:38 Eos # (Auto) 0.00 K/uL (0-0.5) 02/17/19 05:38 Baso # (Auto) 0.00 K/uL (0-0.2) 02/17/19 05:38 PT 9.4 Seconds (9.0-12.0) 02/17/19 08:36 INR 0.9 (0.9-1.1) 02/17/19 08:36 APTT 23.1 Seconds (21.0-31.0) 02/17/19 08:36 PTT Ratio 0.9 02/17/19 08:36 ABG pH 7.40 (7.35-7.45) 02/17/19 05:38 ABG pCO2 50 mmHg (35-46) H 02/17/19 05:38 ABG pO2 90 mm/Hg (80-95) 02/17/19 05:38 ABG HCO3 31 mmol/L (19-24) H 02/17/19 05:38 ABG O2 Saturation 97.0 % (90-95) H 02/17/19 05:38 ABG Base Excess 5.3 mEq/L (-9-1.8) H 02/17/19 05:38 Hussein Test Pos (Pos) 02/17/19 05:38 Barometric Pressure 732.8 mm/Hg 02/17/19 05:38 Oxygen Given 4L 02/17/19 05:38 Sodium 137 mmol/L (136-145) 02/17/19 05:38 Potassium 4.2 mmol/L (3.5-5.1) 02/17/19 05:38 Chloride 103 mmol/L (98-107) 02/17/19 05:38 Carbon Dioxide 31 mmol/L (21-32) 02/17/19 05:38 Anion Gap 3.0 (3-11) 02/17/19 05:38 BUN 41 mg/dl (7-18) H 02/17/19 05:38 Creatinine 1.15 mg/dl (0.6-1.4) 02/17/19 05:38 Est Cr Clr Drug Dosing 63.5 ml/min 02/17/19 05:38 Est GFR ( Amer) 75.9 02/17/19 05:38 Est GFR (Non-Af Amer) 65.5 02/17/19 05:38 BUN/Creatinine Ratio 35.5 (10-20) H 02/17/19 05:38 Glucose 161 mg/dl (70-99) H 02/17/19 05:38 POC Glucose 182 (70-99) H 02/17/19 08:00 Calcium 9.1 mg/dl (8.5-10.1) 02/17/19 05:38 Magnesium 2.3 mg/dl (1.8-2.4) 02/17/19 05:38 Total Bilirubin 0.4 mg/dl (0.2-1) 02/16/19 05:22 AST 48 U/L (15-37) H 02/16/19 05:22 ALT 23 U/L (12-78) 02/16/19 05:22 Alkaline Phosphatase 83 U/L (45-117) 02/16/19 05:22 Ammonia 18.4 umol/L (11-32) 02/16/19 05:34 Troponin I < 0.015 ng/ml (0-0.045) 02/17/19 08:11 Total Protein 6.1 gm/dl (6.4-8.2) L 02/16/19 05:22 Albumin 2.5 gm/dl (3.4-5.0) L 02/16/19 05:22 Globulin 3.6 gm/dl (2.5-4.0) 02/16/19 05:22 Albumin/Globulin Ratio 0.7 (0.9-2) L 02/16/19 05:22 Urine Color Yellow 02/16/19 04:48 Urine Appearance Clear (Clear) 02/16/19 04:48 Urine pH 5.0 (4.5-7.5) 02/16/19 04:48 Ur Specific [place] 1.021 (1.000-1.030) 02/16/19 04:48 Urine Protein 1+ (Negative) H 02/16/19 04:48 Urine Glucose (UA) Negative (Negative) 02/16/19 04:48 Urine Ketones Negative (Negative) 02/16/19 04:48 Urine Blood 3+ (Negative) H 02/16/19 04:48 Urine Nitrite Negative (Negative) 02/16/19 04:48 Urine Bilirubin Negative (Negative) 02/16/19 04:48 Urine Urobilinogen Negative (Negative) 02/16/19 04:48 Ur Leukocyte Esterase Trace (Negative) H 02/16/19 04:48 Urine WBC (Auto) 1-5 /hpf (0-5) 02/16/19 04:48 Urine RBC (Auto) >30 /hpf (0-4) H 02/16/19 04:48 U Hyaline Cast (Auto) 1-5 /lpf (0-5) 02/16/19 04:48 U Epithel Cells (Auto) 5-10 /lpf (0-5) H 02/16/19 04:48 Urine Bacteria (Auto) Negative (Negative) 02/16/19 04:48 Nasal Screen MRSA (PCR) Negative (Negative) 02/13/19 11:47 Heparin-PF4 Ab Screen Negative (Negative) 02/16/19 05:22 Blood Type B Positive 02/13/19 07:23 Antibody Screen NEGATIVE 02/13/19 07:23 (1) Closed fracture of right hip Encounter type: initial encounter Qualified Code(s): S72.001A - Fracture of unspecified part of neck of right femur, initial encounter for closed fracture
[2019-02-17] MEDS: INSULIN ASPART 100 UNITS/ML 3 ML PEN SC SCH ×4 (09:27→20:52)
[2019-02-17] MEDS: INSULIN GLARGINE SOLOSTAR 100 UNITS/ML 3 ML PEN SC SCH ×2 (09:27→20:51)
[2019-02-17] MEDS: FLUTICASONE/SALMETEROL 100/50 (ADVAIR) 14 PUFF/1 INHALER INH SCH ×2 (09:30→20:43)
[2019-02-17] MEDS: DOCUSATE SODIUM 100 MG CAP PO SCH ×2 (09:31→20:43)
[2019-02-17] MEDS: DOXYCYCLINE HYCLATE 100 MG CAP PO SCH ×2 (09:32→20:44)
[2019-02-17] MEDS: FOLIC ACID 1 MG TAB PO SCH (09:32)
[2019-02-17] MEDS: PANTOprazole 40 MG TAB PO SCH (09:32)
[2019-02-17] MEDS: ATORVASTATIN 40 MG TAB PO SCH (09:32)
[2019-02-17] MEDS: SERTRALINE HCL 100 MG TABLET PO SCH (09:33)
[2019-02-17] MEDS: THIAMINE HCL 100 MG TAB PO SCH (09:33)
[2019-02-17] MEDS: NICOTINE 21 MG/24 HR TDSY TD SCH (09:34)
[2019-02-17] MEDS: methylPREDNISolone 40 MG in SYRINGE 0 ML IV SCH (09:38)
[2019-02-17] MEDS: HEPARIN SODIUM/DEXTROSE 25,000 UNITS/500 ML BAG IV SCH (09:40)
--- NOTE | 2019-02-17 10:21 | Electrocardiogram Report ---
Test Reason : Blood Pressure : / mmHG Vent. Rate : 131 BPM Atrial Rate : 000 BPM P-R Int : 000 ms QRS Dur : 090 ms QT Int : 270 ms P-R-T Axes : 000 075 053 degrees QTc Int : 398 ms Atrial fibrillation with rapid ventricular response RSR' or QR pattern in V1 suggests right ventricular conduction delay Nonspecific ST and T wave abnormality Abnormal ECG When compared with ECG of 13-FEB-2019 06:46, Atrial fibrillation has replaced Sinus rhythm Vent. rate has increased BY [address] now depressed in Inferior leads ST now depressed in Anterior leads Inverted T waves have replaced nonspecific T wave abnormality in Anterior leads Confirmed by Roscoe Gustafson ([id number] on 02/17/2019 10:21:07 AM Referred By: REFERRED SELF Confirmed By:Roscoe Gustafson
[2019-02-17 16:13] LABS: Partial Thromboplastin Ratio 1.3; Partial Thromboplastin Time 33.9 Seconds (21.0-31.0)
[2019-02-17] MEDS ORDERED: HEPARIN IV BOLUS 6,000 UNITS in SYRINGE 0 ML IV ONE (17:15)
--- NOTE | 2019-02-17 19:10 | Cardiology Consultation ---
Date of Consultation February 17, 2019 Assessment & Plan (1) Paroxysmal atrial fibrillation: Patient does have a history of paroxysmal atrial fibrillation, and given the stress of his recent hip fracture, and his chronic underlying lung disease, I do not think this is surprising, would however proceed with a lower extremity venous duplex to exclude the presence of DVT given his orthopedic surgery. He had previously been on subcutaneous heparin for DVT prophylaxis. Continue heparin infusion for now. Continue treatment with verapamil 120 mg p.o. daily. History of Present Illness Attending Physician: Alejandro Shelby MD History of Present Illness Turner Villareal is a 69 year old male seen in cardiology consultation per the request of Dr Cm and Dr Shelby for the evaluation of atrial fibrillation. 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 Waldemar ashby saw the pt in inpatient consultation a year ago in 02/2018 for paraxysmal atrial fibrillation. Besides paroxysmal atrial fibrillation his history is notable for severe underlying COPD for which she wears supplemental oxygen. Historically, when he has had exacerbations of his COPD, they have been exacerbated by atrial arrhythmias including the atrial fibrillation. He had previously been on anticoagulation with Coumadin, but had been hospitalized in April, with a GI bleed, and elevated INR. Per the discharge summary, he had been discharged on Coumadin, but it appears this is since been discontinued again and he was not on Coumadin at the time of his most recent cardiology follow-up visit in September,. He is on chronic verapamil for arrhythmia suppression. The patient presented with a fall and was diagnosed with a right femoral neck fracture, for which he underwent right bipolar hemiarthroplasty on 02/14/2019. He has been eager for discharge. But has been slow to progress with physical therapy. He typically uses a motorized wheelchair at baseline. This morning at 7:43 AM he was noted to revert to atrial fibrillation with rapid ventricular response, a heparin drip was started for stroke prophylaxis, and he converted back to sinus rhythm at 1554. Currently sinus rhythm in the mid 70 bpm range is noted. He denies any current cardiac symptoms. He has no complaints with the exception that he is eager to go home, but he is really not able to bear weight on his right hip, and is not ready for discharge. Allergies Allergy/AdvReac Type Severity Reaction Status Date / Time turkey Allergy Verified 02/13/19 12:29 Home Medications Home Medications Medication Instructions Recorded Confirmed Type atorvastatin 40 mg PO QAM 01/28/18 02/13/19 History docusate sodium [Colace] 100 mg PO BID 01/28/18 02/13/19 History folic acid 1 mg PO QAM 01/28/18 02/13/19 History furosemide 20 mg PO DAILY PRN 01/28/18 02/13/19 History gabapentin 300 mg PO HS 01/28/18 02/13/19 History thiamine HCl (vitamin B1) 100 mg PO QAM 01/28/18 02/13/19 History metformin 1,000 mg PO DAILY 04/23/18 02/13/19 History albuterol sulfate 2.5 mg INHALATION TID #0 ml 04/30/18 02/13/19 Rx ipratropium bromide 0.5 mg INHALATION TID #0 ml 04/30/18 02/13/19 Rx nmykbxarimf-[id number] 1 inh INHALATION DAILY 02/13/19 02/13/19 History [Trelegy Ellipta] levothyroxine 50 mcg PO DAILY 02/13/19 02/13/19 History lisinopril 10 mg PO DAILY 02/13/19 02/13/19 History montelukast 10 mg PO PM 02/13/19 02/13/19 History pantoprazole 40 mg PO DAILY 02/13/19 02/13/19 History sertraline 100 mg PO DAILY 02/13/19 02/13/19 History verapamil 120 mg PO DAILY 02/13/19 02/13/19 History Patient History Medical History Alcohol use BPH (benign prostatic hyperplasia) Chronic respiratory failure COPD (chronic obstructive pulmonary disease) Depression Diabetes mellitus, type II Dyslipidemia Esophageal stenosis "s/p dilation June 2016" GERD (gastroesophageal reflux disease) HTN (hypertension) Hypothyroidism Leg edema Paroxysmal atrial fibrillation Superficial thrombophlebitis "2009" TIA (transient ischemic attack) "1982" Surgical History History of cataract surgery S/P bronchoscopy Family History Other Diabetes Social History Preferred Language: Icelandic Communication Ability: Effective Entry Level Administrative Assistant Required: No Beliefs That Will Affect Care: None marital status: Single Current Living Situation: Alone Other Information That Helps Us Care for You: No Feels Safe at Home: Yes Safety Concerns: Feels Safe At This Time Smoking Status: Current every day smoker Tobacco Type: cigarettes ; Cigarettes Per Day: 20-30 ; Do You Dip or Chew Tobacco: Yes (former) ; Second Hand Exposure: No ; Tobacco Cessation Education Requested by Patient: No Hx Alcohol Use: Yes Alcohol type: beer Alcohol Intake Frequency Comment: 2 beers a day Hx Substance Use: No Review of Systems Review of Systems: All systems reviewed & are unremarkable except as noted in HPI & below Physical Exam Physical Exam: Temp Pulse Resp BP Pulse Ox 36.3 C L 90 20 124/80 95 02/17/19 15:09 02/17/19 18:02 02/17/19 18:02 02/17/19 15:09 02/17/19 18:02 Constitutional: WD/WN, vitals as above Respiratory: Coarse breath sounds throughout the lung stevens Cardiovascular: Rate/Rhythm: regular rate Gastrointestinal (Abdomen): normal bowel sounds, soft, nontender, no hepatosplenomegaly Neurologic: PERRL, EOMI, accommodation nl, no face palsy, no dysarthria Genitourinary: Ortega catheter in place draining cynthia urine Results & Data Vital Signs (Past 12 Hours) Vital Signs Temp Pulse Pulse Resp BP BP BP 02/17/19 18:02 90 20 02/17/19 16:00 114 H 02/17/19 15:09 36.3 C L 115 H 20 124/80 02/17/19 12:52 118 H 20 02/17/19 12:17 36.6 C 129 H 20 103/71 02/17/19 10:33 145 H 132/85 02/17/19 08:21 127 H 117/73 02/17/19 08:00 67 02/17/19 07:53 130 H 142/90 H 02/17/19 07:22 83 16 Pulse Ox 02/17/19 18:02 95 02/17/19 16:00 02/17/19 15:09 98 02/17/19 12:52 98 02/17/19 12:17 94 02/17/19 10:33 02/17/19 08:21 95 02/17/19 08:00 02/17/19 07:53 02/17/19 07:22 97 Diagnostic Findings EKG performed 02/17/2019 1185 revealed atrial fibrillation with rate of 131 bpm, right bundle branch block, mild ST segment depression noted in the anterior leads.
--- NOTE | 2019-02-17 20:30 | Hospitalist Progress Note ---
Date of Service February 17, 2019 Assessment & Plan (1) Fall: (2) Right femoral fracture: Patient is a 69 yr male with H/O COPD, chronic hypoxemic respiratory failure on 3.5-4 L oxygen, TIA, tobacco use, dyslipidemia, HTN, paroxysmal atrial fibrillation not on anticoagulation, DM II, BLE edema, hypothyroidism presented with c/o dizziness then fall onto right side and c/o right hip pain. Right femoral neck fracture S/P Right Bipolar Hemiarthroplasty POD #3 Right HIP XRAY: Acute transcervical fracture of the right femur with minimal displacement. Right KNEE XRAY: No acute fracture or joint effusion of the right knee. Appreciate orthopedics input Pain is controlled Bowel regimen to prevent constipation PT OT as able Wound care, activity as per Ortho Monitor CBC Needs Rehab placement Continue current management Metabolic encephalopathy CT head:No acute intracranial findings. No change in appearance of the brain. Urine culture : No growth today Normal ammonia levels Reorient frequently to minimize delirium (3) Chronic respiratory failure: (4) COPD exacerbation: Mild COPD exacerbation On chronic 3.5-4 L oxygen via nasal cannula at baseline Denies any increased cough, increased sputum production, increased shortness of breath continue Trelegy Ellipta Continue supplemental oxygen 3.5-4 L Continue doxycycline, Rocephin, Solumedrol, nebs Respiratory status better Titrate down steroids as able Pulmonary vascular congestion Likely secondary to IV fluids IV Lasix as needed Volume status improved (5) Paroxysmal atrial fibrillation: Afib RVR H/O paroxysmal atrial fibrillation occurring with COPD exacerbations. Not on anticoagulation at home Continue verapamil Started on IV heparin IV Lopressor PRN Appreciate cardiology input (6) TIA (transient ischemic attack): H/O TIA in 1982. Patient not on aspirin Continue atorvastatin (7) HTN (hypertension): Hold lisinopril due to [place] Continue verapamil with holding parameters Acute kidney injury Creatinine: 1.5>>1.15 Renal USD:Bilateral nephrolithiasis. No hydronephrosis. Hold lisinopril, Metformin Received IV fluids Avoid nephrotoxic agents as able Monitor renal function (8) Dyslipidemia: Continue atorvastatin (9) Diabetes mellitus, type II: A1c: 5.8 on 10/17/2018 Hold metformin Continue Insulin while hospitalized (10) Hypothyroidism: TSH: 0.6 on 10/17/2018 Continue levothyroxine (11) GERD (gastroesophageal reflux disease): Continue PPI (12) Tobacco use: Smoking cessation encouraged (13) Alcohol use: Drinks 2 beers daily. Denies history of alcohol withdrawal Continue thiamine, folic acid Monitor for withdrawal DVT Px: Heparin drip CODE STATUS Full Code Disposition PT OT Needs rehab placement Subjective Patient been seen and examined at bedside Patient is agitated this morning and prefers to be discharged Noted to be in A. fib RVR Also states having mild retrosternal pressure-like sensation associated with shortness of breath and dizziness Right Hip pain is controlled Has chronic cough Review of Systems Review of Systems: All systems reviewed & are unremarkable except as noted in HPI & below Physical Exam Physical Exam: Physical Exam: Vitals signs as noted above General Appearance:Moderately built and nourished, chronic ill-appearing, no apparent distress, Head: normocephalic, Atraumatic Eyes: normal inspection, EOMI Neck: supple, Trachea midline Respiratory/Chest: Coarse decreased breath sounds, scattered wheezing Cardiovascular: Irregularly irregular, tachycardia, No murmur Abdomen/GI:Soft, Non tender, Bowel sounds present Extremities/Musculoskelatal:normal inspection, no edema, right hip surgical dressing Neurologic/Psych:AAOX3, grossly no focal neurological deficits Skin: normal color, warm, right knee skin tear Results & Data Vital Signs (Past 12 Hours) Vital Signs Temp Pulse Pulse Resp BP BP BP 02/17/19 18:02 90 20 02/17/19 16:00 114 H 02/17/19 15:09 36.3 C L 115 H 20 124/80 02/17/19 12:52 118 H 20 02/17/19 12:17 36.6 C 129 H 20 103/71 02/17/19 10:33 145 H 132/85 Pulse Ox 02/17/19 18:02 95 02/17/19 16:00 02/17/19 15:09 98 02/17/19 12:52 98 02/17/19 12:17 94 02/17/19 10:33 Laboratory Results Short CBC 02/17/19 Range/Units 05:38 WBC 12.38 H (4.8-10.8) K/uL Hgb 9.1 L (14.0-18.0) g/dL Hct 26.9 L (42-52) % Plt Count 141 (130-400) K/uL BMP 02/17/19 05:38 Sodium 137 Potassium 4.2 Chloride 103 Carbon Dioxide 31 BUN 41 H Creatinine 1.15 Glucose 161 H Calcium 9.1 Cardiac Enzymes 02/17/19 02/17/19 Range/Units 08:11 15:45 Troponin I < 0.015 0.015 (0-0.045) ng/ml
[2019-02-17] MEDS: GABAPENTIN 300 MG CAP PO SCH (20:43)
[2019-02-17] MEDS: MONTELUKAST SODIUM 10 MG TABLET PO SCH (20:43)
[2019-02-17] MEDS: DOCUSATE SODIUM/SENNA 50/8.6MG TAB PO SCH (20:44)
--- NOTE | 2019-02-17 21:29 | Ultrasound Report ---
US venous doppler LE BI HISTORY: Pain. Edema. DVT, recent right hip fx,atrial fibrillation COMPARISON STUDY: None. FINDINGS: There is normal compressibility, flow, and augmentation within the bilateral lower extremit y deep venous systems. IMPRESSION: No DVT within the right or left lower extremity. ACT 112: Negative or not required by law. The above report was generated using voice recognition software. It may contain grammatical, syntax or spelling errors. Electronically signed by: Adrián Vincent M.D. 02/17/2019 9:28 PM
[2019-02-18] MEDS: IPRATROPIUM BROMIDE NEB SOLN 0.02% 2.5 ML VIAL NEB SCH ×4 (00:02→19:26)
[2019-02-18] MEDS: LEVALBUTEROL HCL 0.63 MG/3 ML NEB NEB SCH ×4 (00:03→19:27)
[2019-02-18 00:09] LABS: Partial Thromboplastin Time 81.7 Seconds (21.0-31.0)
[2019-02-18] MEDS: HEPARIN SODIUM/DEXTROSE 25,000 UNITS/500 ML BAG IV SCH (00:53)
[2019-02-18] MEDS: cefTRIAXone SODIUM 1,000 MG in DEXTROSE 5% 50 ML IV SCH (06:38)
[2019-02-18] MEDS: LEVOTHYROXINE SODIUM 50 MCG TABLET PO SCH (06:38)
[2019-02-18 07:12] LABS: Mean Corpuscular Hemoglobin 32.6 pg (25-34); Mean Corpuscular Hgb Conc 33.3 g/dL (32-36); Mean Corpuscular Volume 97.8 fL (80-100); Mean Platelet Volume 10.5 fL (7.4-10.4); Platelet Count 159 K/uL (130-400); RDW Coefficient of Variation 13.4 % (11.5-14.5); RDW Standard Deviation 47.6 fL (36.4-46.3); Red Blood Count 2.76 M/uL (4.7-6.1); White Blood Count 12.65 K/uL (4.8-10.8)
[2019-02-18 07:33] LABS: Partial Thromboplastin Ratio 1.7
[2019-02-18 07:37] LABS: Partial Thromboplastin Time 46.4 Seconds (21.0-31.0)
[2019-02-18 07:42] LABS: Calcium 8.9 mg/dl (8.5-10.1); Creatinine Clr Calc Pharmacy 64.4 ml/min; Est GFR (African American) 75.9; Est GFR (Non-African American) 65.5; Potassium 4.3 mmol/L (3.5-5.1)
[2019-02-18] MEDS: INSULIN ASPART 100 UNITS/ML 3 ML PEN SC SCH ×4 (08:23→20:40)
[2019-02-18] MEDS: INSULIN GLARGINE SOLOSTAR 100 UNITS/ML 3 ML PEN SC SCH ×2 (08:24→20:39)
[2019-02-18] MEDS: FLUTICASONE/SALMETEROL 100/50 (ADVAIR) 14 PUFF/1 INHALER INH SCH ×2 (08:29→19:59)
[2019-02-18] MEDS: VERAPAMIL HCL 120 MG TABCR PO SCH (08:35)
[2019-02-18] MEDS: ATORVASTATIN 40 MG TAB PO SCH (08:36)
[2019-02-18] MEDS: DOCUSATE SODIUM 100 MG CAP PO SCH ×2 (08:36→20:02)
[2019-02-18] MEDS: FOLIC ACID 1 MG TAB PO SCH (08:36)
[2019-02-18] MEDS: NICOTINE 21 MG/24 HR TDSY TD SCH (08:37)
[2019-02-18] MEDS: PANTOprazole 40 MG TAB PO SCH (08:37)
[2019-02-18] MEDS: methylPREDNISolone 40 MG in SYRINGE 0 ML IV SCH (08:38)
[2019-02-18] MEDS: DOXYCYCLINE HYCLATE 100 MG CAP PO SCH ×2 (08:39→20:02)
[2019-02-18] MEDS: THIAMINE HCL 100 MG TAB PO SCH (08:39)
[2019-02-18] MEDS: SERTRALINE HCL 100 MG TABLET PO SCH (08:40)
[2019-02-18] MEDS: ONDANSETRON INJ 2 MG/ML 2 ML VIAL IV PRN (09:34)
--- NOTE | 2019-02-18 10:16 | Electrocardiogram Report ---
Test Reason : Blood Pressure : / mmHG Vent. Rate : 068 BPM Atrial Rate : 068 BPM P-R Int : 098 ms QRS Dur : 112 ms QT Int : 410 ms P-R-T Axes : 079 074 073 degrees QTc Int : 435 ms Sinus rhythm with short [place] Incomplete right bundle branch block Borderline ECG When compared with ECG of 17-FEB-2019 07:55, Sinus rhythm has replaced Atrial fibrillation Vent. rate has decreased BY [address] no longer depressed in Inferior leads ST no longer depressed in Anterior leads Confirmed by Roscoe Gustafson ([id number]) on 02/18/2019 10:16:05 AM Referred By: REFERRED SELF Confirmed By:Roscoe Gustafson
--- NOTE | 2019-02-18 14:59 | Hospitalist Progress Note ---
Date of Service February 18, 2019 Assessment & Plan (1) Fall: (2) Right femoral fracture: Patient is a 69 yr male with H/O COPD, chronic hypoxemic respiratory failure on 3.5-4 L oxygen, TIA, tobacco use, dyslipidemia, HTN, paroxysmal atrial fibrillation not on anticoagulation, DM II, BLE edema, hypothyroidism presented with c/o dizziness then fall onto right side and c/o right hip pain. S/P Right Bipolar Hemiarthroplasty POD #3 Right HIP XRAY: Acute transcervical fracture of the right femur with minimal displacement. Right KNEE XRAY: No acute fracture or joint effusion of the right knee. Appreciate orthopedics input Pain is controlled Bowel regimen to prevent constipation PT OT as able Wound care, activity as per Ortho Clinically better Metabolic encephalopathy-resolved on 02/18/2019 CT head:No acute intracranial findings. No change in appearance of the brain. Urine culture : No growth today Normal ammonia levels Reorient frequently to minimize delirium Does not have any delirium as of today (3) Chronic respiratory failure: (4) COPD exacerbation: Mild COPD exacerbation On chronic 3.5-4 L oxygen via nasal cannula at baseline Denies any increased cough, increased sputum production, increased shortness of breath continue Trelegy Ellipta Continue supplemental oxygen 3.5-4 L Continue doxycycline, Rocephin, Solumedrol, nebs Respiratory status better We will discontinue intravenous steroid and put him on prednisone from tomorrow Pulmonary vascular congestion Likely secondary to IV fluids IV Lasix as needed Volume status improved (5) Paroxysmal atrial fibrillation: Afib RVR H/O paroxysmal atrial fibrillation occurring with COPD exacerbations. Not on anticoagulation at home Continue verapamil Started on IV heparin IV Lopressor PRN Appreciate cardiology input Seems to be in sinus rhythm today Management as per superintendent pressure (6) TIA (transient ischemic attack): H/O TIA in 1982. Patient not on aspirin Continue atorvastatin (7) HTN (hypertension): Hold lisinopril due to [place] Continue verapamil with holding parameters Acute kidney injury Creatinine: 1.5>>1.15 Renal USD:Bilateral nephrolithiasis. No hydronephrosis. Hold lisinopril, Metformin Received IV fluids Renal function is normalized We will start lisinopril from today (8) Dyslipidemia: Continue atorvastatin (9) Diabetes mellitus, type II: A1c: 5.8 on 10/17/2018 Hold metformin Continue Insulin while hospitalized (10) Hypothyroidism: TSH: 0.6 on 10/17/2018 Continue levothyroxine (11) GERD (gastroesophageal reflux disease): Continue PPI (12) Tobacco use: Smoking cessation encouraged (13) Alcohol use: Drinks 2 beers daily. Denies history of alcohol withdrawal Continue thiamine, folic acid Monitor for withdrawal DVT Px: Heparin drip CODE STATUS Full Code Disposition PT OT Needs rehab placement Subjective 02/18/2019 The patient was seen and examined in medical floor He seems to be stable and complains of shortness of breath on minimal exertion He is a status post catheter placement Review of Systems Review of Systems: All systems reviewed and are unremarkable except as noted below Respiratory: + dyspnea and + dyspnea on exertion Cardiovascular: no chest pain Genitourinary: + difficulty urinating (Status post placement of Ortega catheter) Physical Exam Physical Exam: Lying in bed with minimal shortness of breath Constitutional: WD/WN, vitals as above not obese Eyes: PERRL, conjunctivae normal, anicteric sclerae ENMT: Mouth: + edentulous Mallampati Class: II Neck: normal visual inspection, trachea midline and + facial hair; neck extension not limited Respiratory: + uses accessory muscles Auscultation: + diminished lung sounds and + wheezes Cardiovascular: Rate/Rhythm: regular rate and regular rhythm Heart Sounds: no murmur Vessels: no carotid bruit Gastrointestinal (Abdomen): normal bowel sounds, soft, nontender, no hepatosplenomegaly Musculoskeletal: Spine: lumbar spine normal to inspection; normal cervical ROM Neurologic: PERRL, EOMI, accommodation nl, no face palsy, no dysarthria moves all extremities Motor/Sensory: no sensory deficit Psychiatric: Orientation: alert and oriented x 3 Lymphatic: no cervical or axillary lymphadenopathy Results & Data Vital Signs (Past 12 Hours) Vital Signs Temp Pulse Resp BP BP Pulse Ox 02/18/19 14:45 36.8 C 73 18 113/64 96 02/18/19 13:54 73 16 97 02/18/19 11:34 36.3 C L 86 18 128/71 100 02/18/19 07:32 68 18 98 02/18/19 07:21 99 02/18/19 07:15 36.9 C 73 18 136/80 02/18/19 03:29 36.6 C 73 21 126/65 98 Laboratory Results Short CBC 02/18/19 Range/Units 07:02 WBC 12.65 H (4.8-10.8) K/uL Hgb 9.0 L (14.0-18.0) g/dL Hct 27.0 L (42-52) % Plt Count 159 (130-400) K/uL BMP 02/18/19 07:02 Sodium 140 Potassium 4.3 Chloride 107 Carbon Dioxide 30 BUN 43 H Creatinine 1.15 Glucose 84 Calcium 8.9 Cardiac Enzymes 02/17/19 02/18/19 Range/Units 15:45 00:11 Troponin I 0.015 < 0.015 (0-0.045) ng/ml Medications Administered Current Inpatient Medications Acetaminophen (Tylenol) 650 mg PO Q4H PRN PRN Reason: Pain or Fever Stop: 03/15/19 10:52 Last Admin: 02/16/19 06:22 Dose: 650 mg Documented by: Atorvastatin Calcium ([facility]) [facility] Stop: 03/16/19 08:59 Last Admin: 02/18/19 08:36 Dose: 40 mg Documented by: Bisacodyl (Dulcolax) 10 mg ID DAILY PRN PRN Reason: Constipation Stop: 03/15/19 10:52 Dextrose (Dextrose 50%) 25 - 50 ml IV UD PRN; Protocol PRN Reason: Hypoglycemia Protocol Stop: 03/15/19 10:52 Docusate Sodium (Colace) 100 mg PO BID [facility] Stop: 03/15/19 20:59 Last Admin: 02/18/19 08:36 Dose: 100 mg Documented by: Doxycycline Hyclate (Vibramycin) 100 mg PO BID [facility] Stop: 02/20/19 10:52 Last Admin: 02/18/19 08:39 Dose: 100 mg Documented by: Folic Acid (Folvite) 1 mg PO QAM [facility] Stop: 03/16/19 08:59 Last Admin: 02/18/19 08:36 Dose: 1 mg Documented by: Gabapentin (Neurontin) 300 mg PO [facility] Stop: 03/15/19 20:59 Last Admin: 02/17/19 20:43 Dose: 300 mg Documented by: Glucagon (Glucagen) 1 mg SQ UD PRN; Protocol PRN Reason: Hypoglycemia Protocol Stop: 03/15/19 10:52 Glucose (Dex4 Glucose) 4 - 8 tabs PO UD PRN; Protocol PRN Reason: Hypoglycemia Protocol Stop: 03/15/19 10:52 Glucose (Glucose 40%) 15 - 30 gm PO UD PRN; Protocol PRN Reason: Hypoglycemia Protocol Stop: 03/15/19 10:52 Hydromorphone HCl (Dilaudid) 0.25 mg IV Q3H PRN PRN Reason: Severe Pain Stop: 02/27/19 10:52 Last Admin: 02/15/19 10:56 Dose: 0.25 mg Documented by: Heparin Sodium/Dextrose (Heparin Sodium/Dextrose) 25,000 units in 500 mls @ 29 mls/hr IV .[id number] SAE; Protocol Stop: 03/19/19 08:14 Last Titration: 02/18/19 08:43 Dose: 1,450 units/hr, 29 mls/hr Documented by: Methylprednisolone 40 mg/ (Syringe) 0.64 mls @ 1.5 mls/min IV DAILY [facility] Stop: 03/19/19 08:59 Last Admin: 02/18/19 08:38 Dose: 1.5 mls/min Documented by: Insulin Aspart (Novolog Flexpen) 0 units SC ACHS [facility] Stop: 03/15/19 11:29 Last Admin: 02/18/19 13:00 Dose: 3 units Documented by: Insulin Glargine (Lantus Solostar Pen) 7 units SC BID [facility] Stop: 03/19/19 20:59 Last Admin: 02/18/19 08:24 Dose: 7 units Documented by: Ipratropium [place] (Atrovent 0.02% 0.5mg/2.5ml) 0.5 mg NEB Q6R [facility] Stop: 03/19/19 08:59 Last Admin: 02/18/19 13:51 Dose: 0.5 mg Documented by: Levalbuterol HCl (Xopenex 0.63 Mg/3 Ml Neb) 0.63 mg NEB Q6R [facility] Stop: 03/19/19 08:59 Last Admin: 02/18/19 13:51 Dose: 0.63 mg Documented by: Levothyroxine Sodium (Synthroid) 50 mcg PO DAILYBB [facility] Stop: 03/15/19 10:52 Last Admin: 02/18/19 06:38 Dose: 50 mcg Documented by: Lisinopril (Zestril) 10 mg PO DAILY [facility] Stop: 03/21/19 08:59 Magnesium Hydroxide (Milk Of Magnesia) 30 ml PO DAILY PRN PRN Reason: Constipation Stop: 03/15/19 10:52 Metoprolol Tartrate (Lopressor) 2.5 mg IV Q6H PRN PRN Reason: Tachycardia Stop: 03/19/19 08:12 Last Admin: 02/17/19 10:33 Dose: 2.5 mg Documented by: Miscellaneous (Remove Nicoderm Patch) 1 ea N/A DAILY@0859 [facility] Stop: 03/16/19 08:58 Last Admin: 02/18/19 08:19 Dose: Not Given Documented by: Miscellaneous (Carbohydrates For Hypoglycemia) 15 - 30 gm PO UD PRN PRN Reason: Hypoglycemia Protocol Stop: 03/15/19 10:52 Montelukast Sodium (Singulair) 10 mg PO PM [facility] Stop: 03/15/19 20:59 Last Admin: 02/17/19 20:43 Dose: 10 mg Documented by: Naloxone HCl (Narcan) 0.1 mg IV UD PRN PRN Reason: Opiate Overdose Stop: 03/15/19 10:52 Nicotine (Nicoderm Cq) 21 mg TD QAM [facility] Stop: 03/15/19 10:52 Last Admin: 02/18/19 08:37 Dose: 21 mg Documented by: Nitroglycerin (Nitrostat) 0.4 mg SL PRN PRN PRN Reason: Chest Pain Stop: 03/19/19 08:03 Olanzapine (Zyprexa) 2.5 mg IM Q4H PRN PRN Reason: Anxiety/Agitation Stop: 03/18/19 04:31 Ondansetron HCl (Zofran) 4 mg IV Q6H PRN PRN Reason: Nausea And Vomiting Stop: 03/15/19 10:52 Last Admin: 02/18/19 09:34 Dose: 4 mg Documented by: Oxycodone HCl (Roxicodone Immediate Rel) 5 mg PO Q4H PRN PRN Reason: Pain Stop: 02/27/19 10:52 Last Admin: 02/16/19 20:46 Dose: 5 mg Documented by: Pantoprazole Sodium (Protonix) 40 mg PO DAILY [facility] Stop: 03/16/19 08:59 Last Admin: 02/18/19 08:37 Dose: 40 mg Documented by: Fluticasone/Salmeterol (Advair Diskus 100/50) 1 puffs INH BID [facility] Stop: 03/18/19 20:59 Last Admin: 02/18/19 08:29 Dose: 1 puffs Documented by: Senna/Docusate Sodium (Senokot S) 2 tab PO HS [facility] Stop: 03/15/19 20:59 Last Admin: 02/17/19 20:44 Dose: 2 tab Documented by: Sertraline HCl (Zoloft) 100 mg PO DAILY [facility] Stop: 03/16/19 08:59 Last Admin: 02/18/19 08:40 Dose: 100 mg Documented by: Thiamine HCl (Vitamin B-1) 100 mg PO QAM [facility] Stop: 03/16/19 08:59 Last Admin: 02/18/19 08:39 Dose: 100 mg Documented by: Verapamil HCl (Calan Sr) 120 mg PO DAILY [facility] Stop: 03/15/19 10:52 Last Admin: 02/18/19 08:35 Dose: 120 mg Documented by:
[2019-02-18] MEDS ORDERED: PERFLUTREN LIPID MICROSPHERE (DEFINITY) IV ONE (15:21)
--- NOTE | 2019-02-18 16:19 | Cardiology Progress Note ---
Date of Service February 18, 2019 Assessment & Plan (1) Closed fracture of right hip: (2) Paroxysmal atrial fibrillation: Pt remains in SR on telemetry and EKG today. He went in to AF at 7:43 AM on 02/27/2019, and he converted back to sinus rhythm at 1554 on 02/17/2019. As noted , his anticoagulation had been stopped as outpt due to bleeding risks. Noted fall prompting this admission. Will DC heparin infusion. Resume DVT prophylaxis dose SQ heparin. Continue [employer] verapamil. Results & Data Vital Signs (Past 12 Hours) Vital Signs Temp Pulse Pulse Resp BP BP Pulse Ox 02/18/19 16:10 77 02/18/19 14:45 36.8 C 73 18 113/64 96 02/18/19 13:54 73 16 97 02/18/19 11:34 36.3 C L 86 18 128/71 100 02/18/19 07:32 68 18 98 02/18/19 07:21 99 02/18/19 07:15 36.9 C 73 18 136/80 (1) Closed fracture of right hip Encounter type: initial encounter Qualified Code(s): S72.001A - Fracture of unspecified part of neck of right femur, initial encounter for closed fracture
[2019-02-18] MEDS: DOCUSATE SODIUM/SENNA 50/8.6MG TAB PO SCH (20:01)
[2019-02-18] MEDS: MONTELUKAST SODIUM 10 MG TABLET PO SCH (20:02)
[2019-02-18] MEDS: GABAPENTIN 300 MG CAP PO SCH (20:02)
[2019-02-18] MEDS ORDERED: HEPARIN SOD 5,000 UNIT/0.5 ML VIAL SQ SCH (21:00)
[2019-02-19] MEDS: IPRATROPIUM BROMIDE NEB SOLN 0.02% 2.5 ML VIAL NEB SCH ×4 (00:39→19:36)
[2019-02-19] MEDS: LEVALBUTEROL HCL 0.63 MG/3 ML NEB NEB SCH ×4 (00:39→19:36)
[2019-02-19] MEDS: LEVOTHYROXINE SODIUM 50 MCG TABLET PO SCH (06:41)
[2019-02-19 07:02] LABS: Basophils # (auto) 0.01 K/uL (0-0.2); Basophils % (auto) 0.1 %; Eosinophils # (auto) 0.09 K/uL (0-0.5); Eosinophils % (auto) 0.9 %; Hematocrit (blood only) 26.1 % (42-52); Hemoglobin 8.8 g/dL (14.0-18.0); Immature Granulocytes # (auto) 0.07 K/uL (0.00-0.02); Immature Granulocytes % (auto) 0.7 %; Lymphocytes # (auto) 2.06 K/uL (1.2-3.4); Lymphocytes % (auto) 19.7 %; Mean Corpuscular Hemoglobin 33.5 pg (25-34); Mean Corpuscular Hgb Conc 33.7 g/dL (32-36); Mean Corpuscular Volume 99.2 fL (80-100); Mean Platelet Volume 10.6 fL (7.4-10.4); Monocytes # (auto) 1.45 K/uL (0.11-0.59); Monocytes % (auto) 13.9 %; Neutrophils # (auto) 6.77 K/uL (1.4-6.5); Neutrophils % (auto) 64.7 %; Platelet Count 174 K/uL (130-400); RDW Coefficient of Variation 13.4 % (11.5-14.5); RDW Standard Deviation 48.7 fL (36.4-46.3); Red Blood Count 2.63 M/uL (4.7-6.1); White Blood Count 10.45 K/uL (4.8-10.8)
[2019-02-19 07:31] LABS: BUN Creatinine Ratio 30.9 (10-20); Calcium 8.9 mg/dl (8.5-10.1); Est GFR (African American) 89.9; Est GFR (Non-African American) 77.5; Potassium 4.3 mmol/L (3.5-5.1)
[2019-02-19] MEDS: INSULIN ASPART 100 UNITS/ML 3 ML PEN SC SCH ×4 (08:19→21:41)
[2019-02-19] MEDS: ACETAMINOPHEN 325 MG TAB PO PRN ×2 (08:21→15:47)
[2019-02-19] MEDS: FLUTICASONE/SALMETEROL 100/50 (ADVAIR) 14 PUFF/1 INHALER INH SCH ×2 (08:21→21:38)
[2019-02-19] MEDS: HEPARIN SOD 5,000 UNIT/0.5 ML VIAL SQ SCH ×2 (08:22→21:39)
[2019-02-19] MEDS: INSULIN GLARGINE SOLOSTAR 100 UNITS/ML 3 ML PEN SC SCH ×2 (08:22→21:39)
[2019-02-19] MEDS: DOCUSATE SODIUM 100 MG CAP PO SCH ×2 (08:23→21:38)
[2019-02-19] MEDS: PANTOprazole 40 MG TAB PO SCH (08:25)
[2019-02-19] MEDS: DOXYCYCLINE HYCLATE 100 MG CAP PO SCH ×2 (08:25→21:41)
[2019-02-19] MEDS: FOLIC ACID 1 MG TAB PO SCH (08:26)
[2019-02-19] MEDS: NICOTINE 21 MG/24 HR TDSY TD SCH (08:26)
[2019-02-19] MEDS: ATORVASTATIN 40 MG TAB PO SCH (08:26)
[2019-02-19] MEDS: VERAPAMIL HCL 120 MG TABCR PO SCH (08:26)
[2019-02-19] MEDS: SERTRALINE HCL 100 MG TABLET PO SCH (08:27)
[2019-02-19] MEDS: THIAMINE HCL 100 MG TAB PO SCH (08:27)
[2019-02-19] MEDS: lisinopriL 10 MG TAB PO SCH (08:27)
[2019-02-19] MEDS: predniSONE 20 MG TAB PO SCH (08:53)
[2019-02-19] MEDS: OXYCODONE HCL IR 5 MG TAB (IMMEDIATE RELEASE) PO PRN ×2 (09:10→15:47)
--- NOTE | 2019-02-19 16:24 | Hospitalist Progress Note ---
Date of Service February 19, 2019 Assessment & Plan (1) Fall: (2) Right femoral fracture: Patient is a 69 yr male with H/O COPD, chronic hypoxemic respiratory failure on 3.5-4 L oxygen, TIA, tobacco use, dyslipidemia, HTN, paroxysmal atrial fibrillation not on anticoagulation, DM II, BLE edema, hypothyroidism presented with c/o dizziness then fall onto right side and c/o right hip pain. S/P Right Bipolar Hemiarthroplasty POD #3 Right HIP XRAY: Acute transcervical fracture of the right femur with minimal displacement. Right KNEE XRAY: No acute fracture or joint effusion of the right knee. Appreciate orthopedics input Pain is controlled Bowel regimen to prevent constipation PT OT as able Wound care, activity as per Ortho Clinically better and ready to be discharged Metabolic encephalopathy-resolved on 02/18/2019 CT head:No acute intracranial findings. No change in appearance of the brain. Urine culture : No growth today Normal ammonia levels Reorient frequently to minimize delirium Does not have any delirium as of today (3) Chronic respiratory failure: (4) COPD exacerbation: Mild COPD exacerbation On chronic 3.5-4 L oxygen via nasal cannula at baseline Denies any increased cough, increased sputum production, increased shortness of breath continue Trelegy Ellipta Continue supplemental oxygen 3.5-4 L Continue doxycycline, Rocephin, Solumedrol, nebs Respiratory status better We will discontinue intravenous steroid and put him on prednisone from tomorrow Remains a stable with minimal short of breath at rest Pulmonary vascular congestion Likely secondary to IV fluids IV Lasix as needed Volume status improved (5) Paroxysmal atrial fibrillation: Afib RVR H/O paroxysmal atrial fibrillation occurring with COPD exacerbations. 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 Patient not on aspirin Continue atorvastatin (7) HTN (hypertension): Hold lisinopril due to [place] Continue verapamil with holding parameters Acute kidney injury Creatinine: 1.5>>1.15 Renal USD:Bilateral nephrolithiasis. No hydronephrosis. Hold lisinopril, Metformin Received IV fluids Renal function is normalized We will start lisinopril from today (8) Dyslipidemia: Continue atorvastatin (9) Diabetes mellitus, type II: A1c: 5.8 on 10/17/2018 Hold metformin Continue Insulin while hospitalized (10) Hypothyroidism: TSH: 0.6 on 10/17/2018 Continue levothyroxine (11) GERD (gastroesophageal reflux disease): Continue PPI (12) Tobacco use: Smoking cessation encouraged (13) Alcohol use: Drinks 2 beers daily. Denies history of alcohol withdrawal Continue thiamine, folic acid Monitor for withdrawal DVT Px: Heparin drip discontinued Subcu heparin CODE STATUS Full Code Disposition PT OT Needs rehab placement Subjective 02/18/2019 The patient was seen and examined in medical floor He seems to be stable and complains of shortness of breath on minimal exertion He is a status post catheter placement 02/19/2019 The patient is seen and examined in medical floor He has been feeling a lot better with minimal shortness of breath at rest He denies any significant chest pain and/or palpitation Awaiting placement Review of Systems Review of Systems: All systems reviewed and are unremarkable except as noted below Respiratory: + dyspnea and + dyspnea on exertion Genitourinary: + difficulty urinating (Status post placement of Ortega cathet er) Physical Exam Physical Exam: Lying in bed with minimal shortness of breath Constitutional: well developed, well nourished and + acute distress (Mild shortness of breath); not obese Eyes: PERRL, conjunctivae normal, anicteric sclerae ENMT: Mouth: + edentulous Mallampati Class: II Neck: normal visual inspection, trachea midline and + facial hair; neck extension not limited Respiratory: + respiratory distress (Minimal) and + uses accessory muscles Auscultation: + diminished lung sounds and + wheezes Cardiovascular: Rate/Rhythm: regular rate and regular rhythm Heart Sounds: no murmur Vessels: no carotid bruit Gastrointestinal (Abdomen): Inspection/Auscultation: abdomen normal to inspection and normal bowel sounds Percussion/Palpation: abdomen soft; abdomen nontender Musculoskeletal: Spine: lumbar spine normal to inspection; normal cervical ROM Neurologic: PERRL, EOMI, accommodation nl, no face palsy, no dysarthria moves all extremities Motor/Sensory: no sensory deficit Psychiatric: Orientation: alert and oriented x 3 Lymphatic: no cervical or axillary lymphadenopathy Results & Data Vital Signs (Past 12 Hours) Vital Signs Temp Pulse Pulse Resp BP Pulse Ox 02/19/19 15:56 36.7 C 65 18 109/58 L 93 02/19/19 13:17 71 18 97 02/19/19 11:26 36.8 C 74 18 120/69 92 02/19/19 07:45 37.1 C 81 18 145/73 H 99 02/19/19 07:25 73 02/19/19 06:59 74 18 98 Laboratory Results Short CBC 02/19/19 Range/Units 06:37 WBC 10.45 (4.8-10.8) K/uL Hgb 8.8 L (14.0-18.0) g/dL Hct 26.1 L (42-52) % Plt Count 174 (130-400) K/uL BMP 02/19/19 06:37 Sodium 142 Potassium 4.3 Chloride 107 Carbon Dioxide 34 H BUN 31 H Creatinine 1.00 Glucose 87 Calcium 8.9 Medications Administered Current Inpatient Medications Acetaminophen (Tylenol) 650 mg PO Q4H PRN PRN Reason: Pain or Fever Stop: 03/15/19 10:52 Last Admin: 02/19/19 15:47 Dose: 650 mg Documented by: Atorvastatin [facility] (Lipitor) [facility] [place]: 03/16/19 08:59 Last Admin: 02/19/19 08:26 Dose: 40 mg Documented by: Bisacodyl (Dulcolax) 10 mg [place] DAILY PRN PRN Reason: Constipation Stop: 03/15/19 10:52 Dextrose (Dextrose 50%) 25 - 50 ml IV UD PRN; Protocol PRN Reason: Hypoglycemia Protocol Stop: 03/15/19 10:52 Docusate Sodium (Colace) 100 mg PO BID [facility] Stop: 03/15/19 20:59 Last Admin: 02/19/19 08:23 Dose: Not Given Documented by: Doxycycline Hyclate (Vibramycin) 100 mg PO BID [facility] Stop: 02/20/19 10:52 Last Admin: 02/19/19 08:25 Dose: 100 mg Documented by: Folic Acid (Folvite) 1 mg PO QAM [facility] Stop: 03/16/19 08:59 Last Admin: 02/19/19 08:26 Dose: 1 mg Documented by: Gabapentin (Neurontin) 300 mg PO [facility] Stop: 03/15/19 20:59 Last Admin: 02/18/19 20:02 Dose: 300 mg Documented by: Glucagon (Glucagen) 1 mg SQ UD PRN; Protocol PRN Reason: Hypoglycemia Protocol Stop: 03/15/19 10:52 Glucose (Dex4 Glucose) 4 - 8 tabs PO UD PRN; Protocol PRN Reason: Hypoglycemia Protocol Stop: 03/15/19 10:52 Glucose (Glucose 40%) 15 - 30 gm PO UD PRN; Protocol PRN Reason: Hypoglycemia Protocol Stop: 03/15/19 10:52 Heparin Sodium (Porcine) (Heparin Sodium (Porcine)) 5,000 units SQ Q12 [facility] Stop: 03/21/19 08:59 Last Admin: 02/19/19 08:22 Dose: 5,000 units Documented by: Hydromorphone HCl (Dilaudid) 0.25 mg IV Q3H PRN PRN Reason: Severe Pain Stop: 02/27/19 10:52 Last Admin: 02/15/19 10:56 Dose: 0.25 mg Documented by: Insulin Aspart (Novolog Flexpen) 0 units SC ACHS [facility] Stop: 03/15/19 11:29 Last Admin: 02/19/19 12:15 Dose: 5 units Documented by: Insulin Glargine (Lantus Solostar Pen) 7 units SC BID [facility] Stop: 03/19/19 20:59 Last Admin: 02/19/19 08:22 Dose: 7 units Documented by: Ipratropium [place] (Atrovent 0.02% 0.5mg/2.5ml) 0.5 mg NEB Q6R [facility] Stop: 03/19/19 08:59 Last Admin: 02/19/19 13:17 Dose: 0.5 mg Documented by: Levalbuterol HCl (Xopenex 0.63 Mg/3 Ml Neb) 0.63 mg NEB Q6R [facility] Stop: 03/19/19 08:59 Last Admin: 02/19/19 13:17 Dose: 0.63 mg Documented by: Levothyroxine Sodium (Synthroid) 50 mcg PO DAILYBB [facility] Stop: 03/15/19 10:52 Last Admin: 02/19/19 06:41 Dose: 50 mcg Documented by: Lisinopril (Zestril) 10 mg PO DAILY [facility] Stop: 03/21/19 08:59 Last Admin: 02/19/19 08:27 Dose: 10 mg Documented by: Magnesium Hydroxide (Milk Of Magnesia) 30 ml PO DAILY PRN PRN Reason: Constipation Stop: 03/15/19 10:52 Last Admin: 02/19/19 08:21 Dose: 30 ml Documented by: Metoprolol Tartrate (Lopressor) 2.5 mg IV Q6H PRN PRN Reason: Tachycardia Stop: 03/19/19 08:12 Last Admin: 02/17/19 10:33 Dose: 2.5 mg Documented by: Miscellaneous (Remove Nicoderm Patch) 1 ea N/A DAILY@0859 [facility] Stop: 03/16/19 08:58 Last Admin: 02/19/19 08:20 Dose: 1 ea Documented by: Miscellaneous (Carbohydrates For Hypoglycemia) 15 - 30 gm PO UD PRN PRN Reason: Hypoglycemia Protocol Stop: 03/15/19 10:52 Montelukast Sodium (Singulair) 10 mg PO PM [facility] Stop: 03/15/19 20:59 Last Admin: 02/18/19 20:02 Dose: 10 mg Documented by: Naloxone HCl (Narcan) 0.1 mg IV UD PRN PRN Reason: Opiate Overdose Stop: 03/15/19 10:52 Nicotine (Nicoderm Cq) 21 mg TD QAM [facility] Stop: 03/15/19 10:52 Last Admin: 02/19/19 08:26 Dose: 21 mg Documented by: Nitroglycerin (Nitrostat) 0.4 mg SL PRN PRN PRN Reason: Chest Pain Stop: 03/19/19 08:03 Olanzapine (Zyprexa) 2.5 mg IM Q4H PRN PRN Reason: Anxiety/Agitation Stop: 03/18/19 04:31 Ondansetron HCl (Zofran) 4 mg IV Q6H PRN PRN Reason: Nausea And Vomiting Stop: 03/15/19 10:52 Last Admin: 02/18/19 09:34 Dose: 4 mg Documented by: Oxycodone HCl (Roxicodone Immediate Rel) 5 mg PO Q4H PRN PRN Reason: Pain Stop: 02/27/19 10:52 Last Admin: 02/19/19 15:47 Dose: 5 mg Documented by: Pantoprazole Sodium (Protonix) 40 mg PO DAILY [facility] Stop: 03/16/19 08:59 Last Admin: 02/19/19 08:25 Dose: 40 mg Documented by: Prednisone (Prednisone) 40 mg PO DAILY [facility] Stop: 03/21/19 08:59 Last Admin: 02/19/19 08:53 Dose: 40 mg Documented by: Fluticasone/Salmeterol (Advair Diskus 100/50) 1 puffs INH BID [facility] Stop: 03/18/19 20:59 Last Admin: 02/19/19 08:21 Dose: 1 puffs Documented by: Senna/Docusate Sodium (Senokot S) 2 tab PO HS [facility] Stop: 03/15/19 20:59 Last Admin: 02/18/19 20:01 Dose: 2 tab Documented by: Sertraline HCl (Zoloft) 100 mg PO DAILY [facility] Stop: 03/16/19 08:59 Last Admin: 02/19/19 08:27 Dose: 100 mg Documented by: Thiamine HCl (Vitamin B-1) 100 mg PO QAM [facility] Stop: 03/16/19 08:59 Last Admin: 02/19/19 08:27 Dose: 100 mg Documented by: Verapamil HCl (Calan Sr) 120 mg PO DAILY [facility] Stop: 03/15/19 10:52 Last Admin: 02/19/19 08:26 Dose: 120 mg Documented by:
[2019-02-19] MEDS: GABAPENTIN 300 MG CAP PO SCH (21:40)
[2019-02-19] MEDS: DOCUSATE SODIUM/SENNA 50/8.6MG TAB PO SCH (21:41)
[2019-02-19] MEDS: MONTELUKAST SODIUM 10 MG TABLET PO SCH (21:41)
[2019-02-20] MEDS: LEVALBUTEROL HCL 0.63 MG/3 ML NEB NEB SCH ×4 (01:05→19:08)
[2019-02-20] MEDS: IPRATROPIUM BROMIDE NEB SOLN 0.02% 2.5 ML VIAL NEB SCH ×4 (01:05→19:08)
[2019-02-20] MEDS: LEVOTHYROXINE SODIUM 50 MCG TABLET PO SCH (05:52)
[2019-02-20 07:55] LABS: Hemoglobin 8.8 g/dL (14.0-18.0); Mean Corpuscular Hemoglobin 32.7 pg (25-34); Mean Corpuscular Hgb Conc 32.6 g/dL (32-36); Mean Corpuscular Volume 100.4 fL (80-100); Mean Platelet Volume 10.6 fL (7.4-10.4); Platelet Count 209 K/uL (130-400); RDW Coefficient of Variation 13.3 % (11.5-14.5); RDW Standard Deviation 48.3 fL (36.4-46.3); Red Blood Count 2.69 M/uL (4.7-6.1); White Blood Count 12.65 K/uL (4.8-10.8)
[2019-02-20] MEDS: INSULIN ASPART 100 UNITS/ML 3 ML PEN SC SCH ×4 (08:24→20:32)
[2019-02-20] MEDS: FLUTICASONE/SALMETEROL 100/50 (ADVAIR) 14 PUFF/1 INHALER INH SCH ×2 (08:24→21:28)
[2019-02-20] MEDS: DOCUSATE SODIUM 100 MG CAP PO SCH ×2 (08:25→20:16)
[2019-02-20] MEDS: INSULIN GLARGINE SOLOSTAR 100 UNITS/ML 3 ML PEN SC SCH (08:25)
[2019-02-20] MEDS: ATORVASTATIN 40 MG TAB PO SCH (08:25)
[2019-02-20] MEDS: PANTOprazole 40 MG TAB PO SCH (08:25)
[2019-02-20] MEDS: VERAPAMIL HCL 120 MG TABCR PO SCH (08:25)
[2019-02-20] MEDS: HEPARIN SOD 5,000 UNIT/0.5 ML VIAL SQ SCH ×2 (08:25→20:33)
[2019-02-20] MEDS: SERTRALINE HCL 100 MG TABLET PO SCH (08:26)
[2019-02-20] MEDS: FOLIC ACID 1 MG TAB PO SCH (08:26)
[2019-02-20] MEDS: NICOTINE 21 MG/24 HR TDSY TD SCH (08:26)
[2019-02-20] MEDS: predniSONE 20 MG TAB PO SCH (08:26)
[2019-02-20] MEDS: DOXYCYCLINE HYCLATE 100 MG CAP PO SCH (08:26)
[2019-02-20] MEDS: lisinopriL 10 MG TAB PO SCH (08:26)
[2019-02-20] MEDS: THIAMINE HCL 100 MG TAB PO SCH (08:26)
--- NOTE | 2019-02-20 11:23 | Hospitalist Progress Note ---
Date of Service February 20, 2019 Assessment & Plan (1) Fall: (2) Right femoral fracture: Patient is a 69 yr male with H/O COPD, chronic hypoxemic respiratory failure on 3.5-4 L oxygen, TIA, tobacco use, dyslipidemia, HTN, paroxysmal atrial fibrillation not on anticoagulation, DM II, BLE edema, hypothyroidism presented with c/o dizziness then fall onto right side and c/o right hip pain. S/P Right Bipolar Hemiarthroplasty POD #3 Right HIP XRAY: Acute transcervical fracture of the right femur with minimal displacement. Right KNEE XRAY: No acute fracture or joint effusion of the right knee. Appreciate orthopedics input Pain is controlled Bowel regimen to prevent constipation PT OT as able Wound care, activity as per Ortho Clinically better and ready to be discharged Metabolic encephalopathy-resolved on 02/18/2019 CT head:No acute intracranial findings. No change in appearance of the brain. Urine culture : No growth today Normal ammonia levels Reorient frequently to minimize delirium Does not have any delirium as of 02/20/2019 (3) Chronic respiratory failure: (4) COPD exacerbation: Mild COPD exacerbation On chronic 3.5-4 L oxygen via nasal cannula at baseline Denies any increased cough, increased sputum production, increased shortness of breath continue Trelegy Ellipta Continue supplemental oxygen 3.5-4 L Continue doxycycline, Rocephin, Solumedrol, nebs Respiratory status better We will discontinue intravenous steroid and put him on prednisone from tomorrow Remains a stable with minimal short of breath at rest Will have tapering dose of steroids on discharge Pulmonary vascular congestion Likely secondary to IV fluids IV Lasix as needed Volume status improved Doubt any CHF (5) Paroxysmal atrial fibrillation: Afib RVR H/O paroxysmal atrial fibrillation occurring with COPD exacerbations. 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 Patient not on aspirin Continue atorvastatin (7) HTN (hypertension): Hold lisinopril due to [place] Continue verapamil with holding parameters Acute kidney injury Creatinine: 1.5>>1.15 Renal USD:Bilateral nephrolithiasis. No hydronephrosis. Hold lisinopril, Metformin Received IV fluids Renal function is normalized Lisinopril has been restarted and the blood pressure seems to be reasonably controlled (8) Dyslipidemia: Continue atorvastatin (9) Diabetes mellitus, type II: A1c: 5.8 on 10/17/2018 Hold metformin Continue Insulin while hospitalized (10) Hypothyroidism: TSH: 0.6 on 10/17/2018 Continue levothyroxine (11) GERD (gastroesophageal reflux disease): Continue PPI (12) Tobacco use: Smoking cessation encouraged (13) Alcohol use: Drinks 2 beers daily. Denies history of alcohol withdrawal Continue thiamine, folic acid Monitor for withdrawal-no symptoms of withdrawal DVT Px: Heparin drip discontinued Subcu heparin CODE STATUS Full Code Disposition PT OT Needs rehab placement Awaiting acceptance from [facility] Subjective 02/18/2019 The patient was seen and examined in medical floor He seems to be stable and complains of shortness of breath on minimal exertion He is a status post catheter placement 02/19/2019 The patient is seen and examined in medical floor He has been feeling a lot better with minimal shortness of breath at rest He denies any significant chest pain and/or palpitation Awaiting placement 02/20/2019 Patient was seen and examined in medical floor He remains stable and ready to go to [facility] when accepted Still has shortness of breath at rest and with exertion but is back to his baseline His pain seems to be controlled Review of Systems Review of Systems: All systems reviewed and are unremarkable except as noted below Respiratory: + cough, + dyspnea and + dyspnea on exertion Musculoskeletal: No significant pain involving the hip joints Physical Exam Physical Exam: Sitting on a chair with moderate shortness of breath at rest Constitutional: WD/WN, vitals as above well developed, well nourished and + acute distress (Mild shortness of breath); not obese Eyes: PERRL, conjunctivae normal, anicteric sclerae ENMT: Mouth: + edentulous Mallampati Class: II Neck: normal visual inspection, trachea midline and + facial hair; neck extension not limited Respiratory: + respiratory distress (Minimal) and + uses accessory muscles Auscultation: + diminished lung sounds and + wheezes Cardiovascular: Rate/Rhythm: regular rate and regular rhythm Heart Sounds: no murmur Vessels: no carotid bruit Gastrointestinal (Abdomen): normal bowel sounds, soft, nontender, no hepatosplenomegaly Inspection/Auscultation: abdomen normal to inspection and normal bowel sounds Percussion/Palpation: abdomen soft; abdomen nontender Musculoskeletal: Spine: lumbar spine normal to inspection; normal cervical ROM Neurologic: PERRL, EOMI, accommodation nl, no face palsy, no dysarthria moves all extremities Motor/Sensory: no sensory deficit Psychiatric: Orientation: alert and oriented x 3 Lymphatic: no cervical or axillary lymphadenopathy Results & Data Vital Signs (Past 12 Hours) Vital Signs Temp Pulse Pulse Resp BP Pulse Ox 02/20/19 09:49 65 02/20/19 08:00 36.6 C 64 18 143/71 H 96 02/20/19 06:57 86 20 98 02/20/19 03:58 36.6 C 72 20 143/72 H 95 02/20/19 01:47 82 02/20/19 01:05 57 L 18 98 02/19/19 23:43 36.4 C L 61 18 137/74 97 Laboratory Results Short CBC 02/20/19 Range/Units 07:14 WBC 12.65 H (4.8-10.8) K/uL Hgb 8.8 L (14.0-18.0) g/dL Hct 27.0 L (42-52) % Plt Count 209 (130-400) K/uL Medications Administered Current Inpatient Medications Acetaminophen (Tylenol) 650 mg PO Q4H PRN PRN Reason: Pain or Fever Stop: 03/15/19 10:52 Last Admin: 02/19/19 15:47 Dose: 650 mg Documented by: Atorvastatin Calcium (Lipitor) 40 mg PO QAM [facility] Stop: 03/16/19 08:59 Last Admin: 02/20/19 08:25 Dose: 40 mg Documented by: Bisacodyl (Dulcolax) 10 mg [place] DAILY PRN PRN Reason: Constipation Stop: 03/15/19 10:52 Dextrose (Dextrose 50%) 25 - 50 ml IV UD PRN; Protocol PRN Reason: Hypoglycemia Protocol Stop: 03/15/19 10:52 Docusate Sodium (Colace) 100 mg PO BID [facility] Stop: 03/15/19 20:59 Last Admin: 02/20/19 08:25 Dose: 100 mg Documented by: Folic Acid (Folvite) 1 mg PO QAM [facility] Stop: 03/16/19 08:59 Last Admin: 02/20/19 08:26 Dose: 1 mg Documented by: Gabapentin (Neurontin) 300 mg PO HS [facility] Stop: 03/15/19 20:59 Last Admin: 02/19/19 21:40 Dose: 300 mg Documented by: Glucagon (Glucagen) 1 mg SQ UD PRN; Protocol PRN Reason: Hypoglycemia Protocol Stop: 03/15/19 10:52 Glucose (Dex4 Glucose) 4 - 8 tabs PO UD PRN; Protocol PRN Reason: Hypoglycemia Protocol Stop: 03/15/19 10:52 Glucose (Glucose 40%) 15 - 30 gm PO UD PRN; Protocol PRN Reason: Hypoglycemia Protocol Stop: 03/15/19 10:52 Heparin Sodium (Porcine) (Heparin Sodium (Porcine)) 5,000 units SQ Q12 [facility] Stop: 03/21/19 08:59 Last Admin: 02/20/19 08:25 Dose: 5,000 units Documented by: Hydromorphone HCl (Dilaudid) 0.25 mg IV Q3H PRN PRN Reason: Severe Pain Stop: 02/27/19 10:52 Last Admin: 02/15/19 10:56 Dose: 0.25 mg Documented by: Insulin Aspart (Novolog Flexpen) 0 units SC ACHS [facility] Stop: 03/15/19 11:29 Last Admin: 02/20/19 08:24 Dose: 6 units Documented by: Insulin Glargine (Lantus Solostar Pen) 7 units SC BID [facility] Stop: 03/19/19 20:59 Last Admin: 02/20/19 08:25 Dose: 7 units Documented by: Ipratropium [place] (Atrovent 0.02% 0.5mg/2.5ml) 0.5 mg NEB Q6R [facility] Stop: 03/19/19 08:59 Last Admin: 02/20/19 06:57 Dose: 0.5 mg Documented by: Levalbuterol HCl (Xopenex 0.63 Mg/3 Ml Neb) 0.63 mg NEB Q6R [facility] Stop: 03/19/19 08:59 Last Admin: 02/20/19 06:57 Dose: 0.63 mg Documented by: Levothyroxine Sodium (Synthroid) 50 mcg PO DAILYBB [facility] Stop: 03/15/19 10:52 Last Admin: 02/20/19 05:52 Dose: 50 mcg Documented by: Lisinopril (Zestril) 10 mg PO DAILY [facility] Stop: 03/21/19 08:59 Last Admin: 02/20/19 08:26 Dose: 10 mg Documented by: Magnesium Hydroxide (Milk Of Magnesia) 30 ml PO DAILY PRN PRN Reason: Constipation Stop: 03/15/19 10:52 Last Admin: 02/19/19 08:21 Dose: 30 ml Documented by: Metoprolol Tartrate (Lopressor) 2.5 mg IV Q6H PRN PRN Reason: Tachycardia Stop: 03/19/19 08:12 Last Admin: 02/17/19 10:33 Dose: 2.5 mg Documented by: Miscellaneous (Remove Nicoderm Patch) 1 ea N/A DAILY@0859 [facility] Stop: 03/16/19 08:58 Last Admin: 02/20/19 08:23 Dose: 1 ea Documented by: Miscellaneous (Carbohydrates For Hypoglycemia) 15 - 30 gm PO UD PRN PRN Reason: Hypoglycemia Protocol Stop: 03/15/19 10:52 Montelukast Sodium (Singulair) 10 mg PO PM [facility] Stop: 03/15/19 20:59 Last Admin: 02/19/19 21:41 Dose: 10 mg Documented by: Naloxone HCl (Narcan) 0.1 mg IV UD PRN PRN Reason: Opiate Overdose Stop: 03/15/19 10:52 Nicotine (Nicoderm Cq) 21 mg TD QAM [facility] Stop: 03/15/19 10:52 Last Admin: 02/20/19 08:26 Dose: 21 mg Documented by: Nitroglycerin (Nitrostat) 0.4 mg SL PRN PRN PRN Reason: Chest Pain Stop: 03/19/19 08:03 Olanzapine (Zyprexa) 2.5 mg IM Q4H PRN PRN Reason: Anxiety/Agitation Stop: 03/18/19 04:31 Ondansetron HCl (Zofran) 4 mg IV Q6H PRN PRN Reason: Nausea And Vomiting Stop: 03/15/19 10:52 Last Admin: 02/18/19 09:34 Dose: 4 mg Documented by: Oxycodone HCl (Roxicodone Immediate Rel) 5 mg PO Q4H PRN PRN Reason: Pain Stop: 02/27/19 10:52 Last Admin: 02/19/19 15:47 Dose: 5 mg Documented by: Pantoprazole Sodium (Protonix) 40 mg PO DAILY [facility] Stop: 03/16/19 08:59 Last Admin: 02/20/19 08:25 Dose: 40 mg Documented by: Prednisone (Prednisone) 40 mg PO DAILY [facility] Stop: 03/21/19 08:59 Last Admin: 02/20/19 08:26 Dose: 40 mg Documented by: Fluticasone/Salmeterol (Advair Diskus 100/50) 1 puffs INH BID [facility] Stop: 03/18/19 20:59 Last Admin: 02/20/19 08:24 Dose: 1 puffs Documented by: Senna/Docusate Sodium (Senokot S) 2 tab PO HS [facility] Stop: 03/15/19 20:59 Last Admin: 02/19/19 21:41 Dose: 2 tab Documented by: Sertraline HCl (Zoloft) 100 mg PO DAILY [facility] Stop: 03/16/19 08:59 Last Admin: 02/20/19 08:26 Dose: 100 mg Documented by: Thiamine HCl (Vitamin B-1) 100 mg PO QAM [facility] Stop: 03/16/19 08:59 Last Admin: 02/20/19 08:26 Dose: 100 mg Documented by: Verapamil HCl (Calan Sr) 120 mg PO DAILY [facility] Stop: 03/15/19 10:52 Last Admin: 02/20/19 08:25 Dose: 120 mg Documented by:
[2019-02-20] MEDS: GABAPENTIN 300 MG CAP PO SCH (20:16)
[2019-02-20] MEDS: MONTELUKAST SODIUM 10 MG TABLET PO SCH (20:16)
[2019-02-20] MEDS: DOCUSATE SODIUM/SENNA 50/8.6MG TAB PO SCH (20:16)
[2019-02-20] MEDS: OXYCODONE HCL IR 5 MG TAB (IMMEDIATE RELEASE) PO PRN (20:21)
[2019-02-21] MEDS: LEVALBUTEROL HCL 0.63 MG/3 ML NEB NEB SCH ×3 (00:54→13:19)
[2019-02-21] MEDS: IPRATROPIUM BROMIDE NEB SOLN 0.02% 2.5 ML VIAL NEB SCH ×3 (00:54→13:19)
[2019-02-21] MEDS: ACETAMINOPHEN 325 MG TAB PO PRN (03:17)
[2019-02-21] MEDS: LEVOTHYROXINE SODIUM 50 MCG TABLET PO SCH (05:47)
[2019-02-21] MEDS: predniSONE 20 MG TAB PO SCH (07:50)
[2019-02-21] MEDS: SERTRALINE HCL 100 MG TABLET PO SCH (07:50)
[2019-02-21] MEDS: DOCUSATE SODIUM 100 MG CAP PO SCH (07:51)
[2019-02-21] MEDS: ATORVASTATIN 40 MG TAB PO SCH (07:51)
[2019-02-21] MEDS: FLUTICASONE/SALMETEROL 100/50 (ADVAIR) 14 PUFF/1 INHALER INH SCH (07:52)
[2019-02-21] MEDS: FOLIC ACID 1 MG TAB PO SCH (07:52)
[2019-02-21] MEDS: VERAPAMIL HCL 120 MG TABCR PO SCH (07:52)
[2019-02-21] MEDS: lisinopriL 10 MG TAB PO SCH (07:53)
[2019-02-21] MEDS: THIAMINE HCL 100 MG TAB PO SCH (07:53)
[2019-02-21] MEDS: HEPARIN SOD 5,000 UNIT/0.5 ML VIAL SQ SCH (07:53)
[2019-02-21] MEDS: PANTOprazole 40 MG TAB PO SCH (07:53)
[2019-02-21] MEDS: NICOTINE 21 MG/24 HR TDSY TD SCH (07:59)
[2019-02-21] MEDS: INSULIN ASPART 100 UNITS/ML 3 ML PEN SC SCH ×2 (08:02→11:59)
[2019-02-21] MEDS ORDERED: INSULIN GLARGINE SOLOSTAR 100 UNITS/ML 3 ML PEN SC SCH (09:00)
[2019-02-21] MEDS ORDERED: ENOXAPARIN INJ 40 MG/0.4 ML SYR SQ SCH (11:00)
--- NOTE | 2019-02-21 11:00 | Hospitalist Progress Note ---
Date of Service February 21, 2019 Assessment & Plan (1) Fall: (2) Right femoral fracture: Patient is a 69 yr male with H/O COPD, chronic hypoxemic respiratory failure on 3.5-4 L oxygen, TIA, tobacco use, dyslipidemia, HTN, paroxysmal atrial fibrillation not on anticoagulation, DM II, BLE edema, hypothyroidism presented with c/o dizziness then fall onto right side and c/o right hip pain. S/P Right Bipolar Hemiarthroplasty POD #3 Right HIP XRAY: Acute transcervical fracture of the right femur with minimal displacement. Right KNEE XRAY: No acute fracture or joint effusion of the right knee. Appreciate orthopedics input Pain is controlled Bowel regimen to prevent constipation PT OT ongoing and will need to continue Wound care, activity as per Ortho Clinically better and ready to be discharged Will go to [facility] this afternoon Metabolic encephalopathy-resolved on 02/18/2019 CT head:No acute intracranial findings. No change in appearance of the brain. Urine culture : No growth today Normal ammonia levels Reorient frequently to minimize delirium Does not have any delirium as of 02/20/2019 (3) Chronic respiratory failure: (4) COPD exacerbation: Mild COPD exacerbation On chronic 3.5-4 L oxygen via nasal cannula at baseline Denies any increased cough, increased sputum production, increased shortness of breath continue Trelegy Ellipta Continue supplemental oxygen 3.5-4 L Continue doxycycline, Rocephin, Solumedrol, nebs Respiratory status better We will discontinue intravenous steroid and put him on prednisone from tomorrow Remains a stable with minimal short of breath at rest Will have tapering dose of steroids on discharge Pulmonary vascular congestion Likely secondary to IV fluids IV Lasix as needed Volume status improved Doubt any CHF-no crackles on examination and no orthopnea (5) Paroxysmal atrial fibrillation: Afib RVR H/O paroxysmal atrial fibrillation occurring with COPD exacerbations. 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 Patient not on aspirin Continue atorvastatin (7) HTN (hypertension): Hold lisinopril due to [place] Continue verapamil with holding parameters Acute kidney injury Creatinine: 1.5>>1.15 Renal USD:Bilateral nephrolithiasis. No hydronephrosis. Hold lisinopril, Metformin Received IV fluids Renal function is normalized Lisinopril has been restarted and the blood pressure seems to be reasonably controlled (8) Dyslipidemia: Continue atorvastatin (9) Diabetes mellitus, type II: A1c: 5.8 on 10/17/2018 Hold metformin Continue Insulin while hospitalized Blood sugar was running low normal and insulin doses have been decreased for that (10) Hypothyroidism: TSH: 0.6 on 10/17/2018 Continue levothyroxine (11) GERD (gastroesophageal reflux disease): Continue PPI (12) Tobacco use: Smoking cessation encouraged (13) Alcohol use: Drinks 2 beers daily. Denies history of alcohol withdrawal Continue thiamine, folic acid Monitor for withdrawal-no symptoms of withdrawal DVT Px: Heparin drip discontinued Subcu heparin CODE STATUS Full Code Disposition PT OT Needs rehab placement Awaiting acceptance from [facility] Has been accepted to [facility] and will be leaving [facility] at around 3 PM today Subjective 02/18/2019 The patient was seen and examined in medical floor He seems to be stable and complains of shortness of breath on minimal exertion He is a status post catheter placement 02/19/2019 The patient is seen and examined in medical floor He has been feeling a lot better with minimal shortness of breath at rest He denies any significant chest pain and/or palpitation Awaiting placement 02/20/2019 Patient was seen and examined in medical floor He remains stable and ready to go to [facility] when accepted Still has shortness of breath at rest and with exertion but is back to his baseline His pain seems to be controlled 02/21/2019 The patient was seen and examined in medical floor He has been stable for the last few days and his breathing is controlled Still complains to have some pain in the right hip but denies any significant symptoms He is ready to get out of the hospital Review of Systems Review of Systems: All systems reviewed and are unremarkable except as noted below Respiratory: + cough, + dyspnea and + wheezing Musculoskeletal: Pain in the right lower extremity especially right hip with movement Physical Exam Physical Exam: Lying in bed with minimal shortness of breath Constitutional: well developed, well nourished and + acute distress (Mild shortness of breath); not obese Eyes: PERRL, conjunctivae normal, anicteric sclerae ENMT: Mouth: + edentulous Mallampati Class: II Neck: normal visual inspection, trachea midline and + facial hair; neck extension not limited Respiratory: + respiratory distress (Minimal) and + uses accessory muscles (Minimal at rest) Auscultation: + diminished lung sounds and + wheezes Has been conversing normally Cardiovascular: Rate/Rhythm: regular rate and regular rhythm Heart Sounds: no murmur Vessels: no carotid bruit Extremities: + edema (1+ right lower extremity) Gastrointestinal (Abdomen): normal bowel sounds, soft, nontender, no hepatosplenomegaly Inspection/Auscultation: abdomen normal to inspection and normal bowel sounds Percussion/Palpation: abdomen soft; abdomen nontender Musculoskeletal: Spine: lumbar spine normal to inspection; normal cervical ROM Neurologic: PERRL, EOMI, accommodation nl, no face palsy, no dysarthria moves all extremities Motor/Sensory: no sensory deficit Psychiatric: Orientation: alert and oriented x 3 Lymphatic: no cervical or axillary lymphadenopathy Results & Data Vital Signs (Past 12 Hours) Vital Signs Temp Pulse Pulse Resp BP BP Pulse Ox 02/21/19 07:38 72 02/21/19 07:26 36.4 C L 69 16 103/60 99 02/21/19 05:58 67 22 98 02/21/19 03:50 36.9 C 61 17 127/69 94 02/21/19 00:55 71 18 91 02/20/19 23:55 37.0 C 61 17 139/59 L 98 02/20/19 23:05 58 L Medications Administered Current Inpatient Medications Acetaminophen (Tylenol) 650 mg PO Q4H PRN PRN Reason: Pain or Fever Stop: 03/15/19 10:52 Last Admin: 02/21/19 03:17 Dose: 650 mg Documented by: Atorvastatin Calcium (Lipitor) 40 mg PO QAM SAE Stop: 03/16/19 08:59 Last Admin: 02/21/19 07:51 Dose: 40 mg Documented by: Bisacodyl (Dulcolax) 10 mg [place] DAILY PRN PRN Reason: Constipation Stop: 03/15/19 10:52 Dextrose (Dextrose 50%) 25 - 50 ml IV UD PRN; Protocol PRN Reason: Hypoglycemia Protocol Stop: 03/15/19 10:52 Docusate Sodium (Colace) 100 mg PO BID [facility] Stop: 03/15/19 20:59 Last Admin: 02/21/19 07:51 Dose: 100 mg Documented by: Enoxaparin Sodium (Lovenox) 40 mg SQ QAM [facility] Stop: 03/23/19 10:59 Folic Acid (Folvite) 1 mg PO QAM [facility] Stop: 03/16/19 08:59 Last Admin: 02/21/19 07:52 Dose: 1 mg Documented by: Gabapentin (Neurontin) 300 mg PO HS [facility] Stop: 03/15/19 20:59 Last Admin: 02/20/19 20:16 Dose: 300 mg Documented by: Glucagon (Glucagen) 1 mg SQ UD PRN; Protocol PRN Reason: Hypoglycemia Protocol Stop: 03/15/19 10:52 Glucose (Dex4 Glucose) 4 - 8 tabs PO UD PRN; Protocol PRN Reason: Hypoglycemia Protocol Stop: 03/15/19 10:52 Glucose (Glucose 40%) 15 - 30 gm PO UD PRN; Protocol PRN Reason: Hypoglycemia Protocol Stop: 03/15/19 10:52 Hydromorphone HCl (Dilaudid) 0.25 mg IV Q3H PRN PRN Reason: Severe Pain Stop: 02/27/19 10:52 Last Admin: 02/15/19 10:56 Dose: 0.25 mg Documented by: Insulin Aspart (Novolog Flexpen) 0 units SC [facility] Stop: 03/15/19 11:29 Last Admin: 02/21/19 08:02 Dose: 7 units Documented by: Insulin Glargine (Lantus Solostar Pen) 7 units SC [facility] Stop: 03/23/19 08:59 Last Admin: 02/21/19 08:00 Dose: 7 units Documented by: Ipratropium [place] (Atrovent 0.02% 0.5mg/2.5ml) 0.5 mg NEB Q6R [facility] Stop: 03/19/19 08:59 Last Admin: 02/21/19 05:58 Dose: 0.5 mg Documented by: Levalbuterol HCl (Xopenex 0.63 Mg/3 Ml Neb) 0.63 mg NEB Q6R [facility] Stop: 03/19/19 08:59 Last Admin: 02/21/19 05:57 Dose: 0.63 mg Documented by: Levothyroxine Sodium (Synthroid) 50 mcg PO DAILYBB [facility] Stop: 03/15/19 10:52 Last Admin: 02/21/19 05:47 Dose: 50 mcg Documented by: Lisinopril (Zestril) 10 mg PO DAILY [facility] Stop: 03/21/19 08:59 Last Admin: 02/21/19 07:53 Dose: 10 mg Documented by: Magnesium Hydroxide (Milk Of Magnesia) 30 ml PO DAILY PRN PRN Reason: Constipation Stop: 03/15/19 10:52 Last Admin: 02/19/19 08:21 Dose: 30 ml Documented by: Metoprolol Tartrate (Lopressor) 2.5 mg IV Q6H PRN PRN Reason: Tachycardia Stop: 03/19/19 08:12 Last Admin: 02/17/19 10:33 Dose: 2.5 mg Documented by: Miscellaneous (Remove Nicoderm Patch) 1 ea N/A DAILY@[id number] [facility] Stop: 03/16/19 08:58 Last Admin: 02/21/19 07:59 Dose: 1 ea Documented by: Miscellaneous (Carbohydrates For Hypoglycemia) 15 - 30 gm PO UD PRN PRN Reason: Hypoglycemia Protocol Stop: 03/15/19 10:52 Montelukast Sodium (Singulair) 10 mg PO PM [facility] Stop: 03/15/19 20:59 Last Admin: 02/20/19 20:16 Dose: 10 mg Documented by: Naloxone HCl (Narcan) 0.1 mg IV UD PRN PRN Reason: Opiate Overdose Stop: 03/15/19 10:52 Nicotine (Nicoderm Cq) 21 mg TD QAM [facility] Stop: 03/15/19 10:52 Last Admin: 02/21/19 07:59 Dose: 21 mg Documented by: Nitroglycerin (Nitrostat) 0.4 mg SL PRN PRN PRN Reason: Chest Pain Stop: 03/19/19 08:03 Olanzapine (Zyprexa) 2.5 mg IM Q4H PRN PRN Reason: Anxiety/Agitation Stop: 03/18/19 04:31 Ondansetron HCl (Zofran) 4 mg IV Q6H PRN PRN Reason: Nausea And Vomiting Stop: 03/15/19 10:52 Last Admin: 02/18/19 09:34 Dose: 4 mg Documented by: Oxycodone HCl (Roxicodone Immediate Rel) 5 mg PO Q4H PRN PRN Reason: Pain Stop: 02/27/19 10:52 Last Admin: 02/20/19 20:21 Dose: 5 mg Documented by: Pantoprazole Sodium (Protonix) 40 mg PO DAILY SAE Stop: 03/16/19 08:59 Last Admin: 02/21/19 07:53 Dose: 40 mg Documented by: Prednisone (Prednisone) 40 mg PO DAILY SAE Stop: 03/21/19 08:59 Last Admin: 02/21/19 07:50 Dose: 40 mg Documented by: Fluticasone/Salmeterol (Advair Diskus 100/50) 1 puffs INH BID SAE Stop: 03/18/19 20:59 Last Admin: 02/21/19 07:52 Dose: 1 puffs Documented by: Senna/Docusate Sodium (Senokot S) 2 tab PO HS [facility] Stop: 03/15/19 20:59 Last Admin: 02/20/19 20:16 Dose: 2 tab Documented by: Sertraline HCl (Zoloft) 100 mg PO DAILY SAE Stop: 03/16/19 08:59 Last Admin: 02/21/19 07:50 Dose: 100 mg Documented by: Thiamine HCl (Vitamin B-1) 100 mg PO QAM [facility] Stop: 03/16/19 08:59 Last Admin: 02/21/19 07:53 Dose: 100 mg Documented by: Verapamil HCl (Calan Sr) 120 mg PO DAILY [facility] Stop: 03/15/19 10:52 Last Admin: 02/21/19 07:52 Dose: 120 mg Documented by:
[2019-02-21] MEDS ORDERED: IPRATROPIUM BROMIDE NEB SOLN 0.02% 2.5 ML VIAL NEB STA (14:21)
[2019-02-21] MEDS ORDERED: LEVALBUTEROL HCL 0.63 MG/3 ML NEB NEB STA (14:22)
--- NOTE | 2019-02-22 08:22 | Discharge Summary ---
Date of Service February 22, 2019 Admission HPI Per Admitting Provider Pt is 69 y/o M with PMH COPD, chronic hypoxemic respiratory failure on 3.5-4 L oxygen, TIA, tobacco use, dyslipidemia, HTN, paroxysmal atrial fibrillation not on anticoagulation, DM II, BLE edema, hypothyroidism presented to ER with complaint of fall and right hip pain. Patient states got up out of bed this morning and walked throughout house was trying to heat up some coffee when he started to get dizzy and his vision got blurry described as "cloudy vision". Patient states then fell onto right side. Patient denies hitting head and does not believe had any LOC. He reports was unable to get up secondary to right hip and leg pain. Denies any paresthesias, SOB, chest pain prior to fall. Patient reports chronic cough intermittently productive and denies any increased cough or sputum production. Denies any increased shortness of breath. Denies any other noted injury, denies neck pain, back pain, upper extremity pain, left lower extremity. Patient denies any current headache, dizziness, vision changes. Reports takes Lasix for BLE edema and denies any noted LE edema "for awhile". Currently c/o R hip pain, unable to move right leg and some paresthesias to right foot/toes. C/O anterior right knee pain also. Denies h/o prior injury to RLE or R hip in past. Denies fever/chills, diaphoresis, N/V/D/C, orthopnea, palpitations, sore throat, choking, otalgia, rhinorrhea, abdominal pain, rashes, urinary symptoms. Admission Exam Per Admitting Provider Physical Exam: General: mild distress secondary to discomfort, chronic ill appearing, WDWN Head: normocephalic, atraumatic Eyes: PERRL, EOM's intact, conjunctiva non-injected, anicteric ENT: normal inspection external ears, nose, mucous membranes moist Neck: supple, trachea midline Lungs: On 4L oxygen via NC (chronic), +wheezing throughout, lungs diminished. unable to auscultate posteriorly secondary to limited mobility with current hip pain CV: RRR, no murmur, no pretibial edema Abd: normal BS, soft, non-tender Ext: no calf tenderness; RLE: right foot with external rotation, +tenderness to anterior right hip, +skin tear to anterior knee; no ROM of leg attempted, distal pulses palpable, sensation to light touch intact LLE: normal appearance, non-tender Neuro: A&O x 3, no focal deficits noted, normal affect Skin: warm, dry; moderate dry skin to BLE Principal Diagnosis Displaced right femoral neck fracture, status post right bipolar hemiarthroplasty, paroxysmal atrial fibrillation, COPD exacerbation, hypertens ion and history of TIA Discharge Exam Constitutional WD/WN, vitals as above well developed, well nourished and + acute distress (Mild shortness of breath); not obese Eyes PERRL, conjunctivae normal, anicteric sclerae ENMT Mouth: + edentulous Mallampati Class: II Neck normal visual inspection, trachea midline and + facial hair; neck extension not limited Respiratory + respiratory distress (Minimal) and + uses accessory muscles (Minimal at rest) Auscultation: + diminished lung sounds and + wheezes Cardiovascular Rate/Rhythm: regular rate and regular rhythm Heart Sounds: no murmur Vessels: no carotid bruit Extremities: + edema (1+ right lower extremity) Gastrointestinal (Abdomen) normal bowel sounds, soft, nontender, no hepatosplenomegaly Inspection/Auscultation: abdomen normal to inspection and normal bowel sounds Percussion/Palpation: abdomen soft; abdomen nontender Musculoskeletal Spine: lumbar spine normal to inspection; normal cervical ROM Neurologic PERRL, EOMI, accommodation nl, no face palsy, no dysarthria moves all extremities Motor/Sensory: no sensory deficit Psychiatric Orientation: alert and oriented x 3 Lymphatic no cervical or axillary lymphadenopathy Discharge Data Allergies Allergy/AdvReac Type Severity Reaction Status Date / Time turkey Allergy Unknown Verified 02/22/19 02:08 Consultations 02/13/19 08:19 ED Decision to Admit Stat 02/13/19 10:53 Consult Anesthesiology Routine Consult Case Management - Discharge Planning Routine Consult Orthopedic Surgery Routine 02/13/19 15:33 Consult Anesthesiology Routine 02/14/19 14:35 Consult Case Management - Discharge Planning Routine 02/17/19 08:00 Consult Cardiology Routine Procedures Performed Operation Date: 02/14/19 10:00 Actual Procedures p Right Bipolar Hemiarthroplasty(Right) - Vadim Zelaya DO Ordered Studies 02/14/19 08:34 US renal/blad retro comp Routine 02/16/19 05:54 CT head/brain wo con Urgent 02/17/19 19:08 US venous doppler LE Routine Hospital Course (1) Fall: (2) Right femoral fracture: Patient is a 69 yr male with H/O COPD, chronic hypoxemic respiratory failure on 3.5-4 L oxygen, TIA, tobacco use, dyslipidemia, HTN, paroxysmal atrial fibrillation not on anticoagulation, DM II, BLE edema, hypothyroidism presented with c/o dizziness then fall onto right side and c/o right hip pain. S/P Right Bipolar Hemiarthroplasty POD #3 Right HIP XRAY: Acute transcervical fracture of the right femur with minimal displacement. Right KNEE XRAY: No acute fracture or joint effusion of the right knee. Appreciate orthopedics input Pain is controlled Bowel regimen to prevent constipation PT OT ongoing and will need to continue Wound care, activity as per Ortho Clinically better and ready to be discharged Will go to [facility] this afternoon Metabolic encephalopathy-resolved on 02/18/2019 CT head:No acute intracranial findings. No change in appearance of the brain. Urine culture : No growth today Normal ammonia levels Reorient frequently to minimize delirium Does not have any delirium as of 02/20/2019 (3) Chronic respiratory failure: (4) COPD exacerbation: Mild COPD exacerbation On chronic 3.5-4 L oxygen via nasal cannula at baseline Denies any increased cough, increased sputum production, increased shortness of breath continue Trelegy Ellipta Continue supplemental oxygen 3.5-4 L Continue doxycycline, Rocephin, Solumedrol, nebs Respiratory status better We will discontinue intravenous steroid and put him on prednisone from tomorrow Remains a stable with minimal short of breath at rest Will have tapering dose of steroids on discharge Pulmonary vascular congestion Likely secondary to IV fluids IV Lasix as needed Volume status improved Doubt any CHF-no crackles on examination and no orthopnea (5) Paroxysmal atrial fibrillation: Afib RVR H/O paroxysmal atrial fibrillation occurring with COPD exacerbations. Not on anticoagulation at home Continue verapamil Started on IV heparin IV Lopressor PRN Appreciate cardiology input Seems to be in sinus rhythm today Management as per research agricultural engineer Echo-no significant change compared with prior test, EF 60 to 65%, mild concentric LV hypertrophy without any wall motion abnormalities and no pericardial effusion Does not require prolonged anticoagulation Cardiac garcia stable to be discharged (6) TIA (transient ischemic attack): H/O TIA in 1982. Patient not on aspirin Continue atorvastatin (7) HTN (hypertension): Hold lisinopril due to [place] Continue verapamil with holding parameters Acute kidney injury Creatinine: 1.5>>1.15 Renal USD:Bilateral nephrolithiasis. No hydronephrosis. Hold lisinopril, Metformin Received IV fluids Renal function is normalized Lisinopril has been restarted and the blood pressure seems to be reasonably controlled (8) Dyslipidemia: Continue atorvastatin (9) Diabetes mellitus, type II: A1c: 5.8 on 10/17/2018 Hold metformin Continue Insulin while hospitalized Blood sugar was running low normal and insulin doses have been decreased for that (10) Hypothyroidism: TSH: 0.6 on 10/17/2018 Continue levothyroxine (11) GERD (gastroesophageal reflux disease): Continue PPI (12) Tobacco use: Smoking cessation encouraged (13) Alcohol use: Drinks 2 beers daily. Denies history of alcohol withdrawal Continue thiamine, folic acid Monitor for withdrawal-no symptoms of withdrawal DVT Px: Heparin drip discontinued Subcu heparin CODE STATUS Full Code Disposition PT OT Needs rehab placement Awaiting acceptance from [facility] Has been accepted to [facility] and will be leaving [facility] at around 3 PM today Total Time Total Time Spent Total Time Spent (In Minutes): 40 minutes Total Time Includes: Examination of the Patient, Discharge Planning, Medication Reconciliation and Communication With Other Providers Discharge Plan Discharge Items Patient Disposition: Transfer Shelter Fac Reason For Visit: RT FEMUR FRACTURE Discharge Diagnosis: Displaced right femoral neck fracture, status post right bipolar hemiarthroplasty, paroxysmal atrial fibrillation, COPD exacerbation, hypertension and history of TIA Condition on Discharge: Fair Activity: Per Instructions section Weightbearing: Right weightbearing Weightbearing Comment: As tolerated with walker or crutches Non-emergency contact: Surgeon Call non-emergency contact if: your pain is not controlled, your temperature is above 101.5, your wound has increased redness and your wound has increased drainage Follow-up/Referrals: Derrell Schmidt MD [Primary Care Provider] - (Please make an appointment with the your primary care physician in 1 week. Keep appointment with orthopedic surgeon) Diet: Carb Consistent or DM2 Addtl Attending Provider Instructions: Please take precaution to avoid fall. Avoid respiratory stimulants as advised to keep your breathing under control Use oxygen as before Addtl Audio Visual Secretary Provider Instructions: ACTIVITY RECOMMENDATIONS: SELF CARE INSTRUCTIONS AFTER TOTAL HIP REPLACEMENT Until the incision and soft tissues around your hip have healed, there is a possibility that the hip prosthesis could dislocate. A. Observe the following precautions to prevent dislocation: 1. Don't bend your hip greater than 90 degrees. 2. Avoid crossing your legs or ankles while standing or lying. 3. Sit with your feet placed 6 inches apart. 4. When sitting, keep your knees below your hips. Sit on a firm surface, avoid deep, soft chairs and couches. Use an elevated toilet seat in the bathroom. 5. Don't bend over at the waist. Use a long handled shoehorn and a sock aid to help you put on your shoes and socks. A evaporative cooler installer can help you lease picker objects that are too high or too low to reach. 6. Keep car riding to a minimum for at least one month after surgery. B. Your balance may be shaky for a while. Use crutches or a walker until directed by your doctor. C. Use hand rails when walking on stairs. D. Wear low heeled shoes with non-slip soles. E. Be sure that your floors are free of things that could trip you - throw rugs, electrical cords, small objects. Avoid wet and waxed floors, especially with crutches and canes. F. Try to walk several times a day with rest periods between. G. Continue with all the exercises taught to you in the hospital. Again, make walking a part of your daily routine. SPECIAL CARE INSTRUCTIONS: VERY IMPORTANT TO READ AND REVIEW A. You may still be at risk for phlebitis and blood clots. 1. Wear surgical stockings (DAVIN hose) for 2 weeks after surgery to improve circulation and reduce swelling. 2. TAKE BLOOD THINNING MEDICATION RECOMMENDED BY YOUR PHYSICIAN. YOU WILL NEED TO REMAIN ON THIS MEDICATION FOR UP TO 4 WEEKS. B. You must take antibiotics before having dental work, bladder, bowel and other surgery. Your doctor will provide you with a permanent card to carry describing precautions. C. Call [facility] if you have a fever, redness or swelling around the incision, cloudy drainage from incision, or sudden increase in pain in your hip, not relieved by your regular pain medication. D. Please call the office at if you have any concerns or questions about your operation or recovery. * YOU MAY SHOWER, NO TUB BATHS UNTIL CLEARED BY YOUR DOCTOR. * WEAR DAVIN HOSE 20 HOURS PER DAY FOR 2 WEEKS. * YOU SHOULD USE A WALKER OR CRUTCHES FOR 2-4 WEEKS. THIS WILL HELP PREVENT STRAIN ON YOUR HIP MUSCLE AND ALLOW IT TO HEAL PROPERLY. YOU MAY WEAN TO A CANE TOLERATED. * MOST PATIENTS WILL HAVE HOME NURSING FOR THERAPY. IF YOU DECIDE TO DO OUTPATIENT PHYSICAL THERAPY, PLEASE SCHEDULE THIS 3 TIMES PER WEEK. * Silverlon- This is a large adhesive bandage that contains silver ions. This helps your incision heal by fighting off bacteria and protecting it from the outside environment. You are permitted to shower with this dressing. This will remain on your incision for 7 days and then should be removed. Some visible blood or drainage through the dressing window is normal. If there is significant drainage or leaking noted before the 7 days notify your doctor's office immediately. Once removed, keep incision clean and dry. If there is any drainage or redness noted, please call your surgeon. . FOLLOW UP VISIT: If appointment is not already scheduled: Please call [facility] to make a follow-up appointment for 2 weeks after your surgery at . Pending Studies at Discharge: No Stand-Alone Forms: My [facility] Skilled Items Patient informed of condition?: Yes DNR: No Discharge Level of Care: Skilled Communicable Disease: No Discharge Prognosis: Stable Lines: None Urinary Catheter: No Medications and DC Order Prescriptions: New nicotine [Nicoderm CQ] 21 mg/24 hr Patch 24 Hour 21 mg transdermal QAM 30 Days Qty: 30 RF: 0 enoxaparin 40 mg/0.4 mL Syringe 40 mg subcut QAM 30 Days Qty: 12 RF: 0 prednisone 10 mg tablet 10 mg PO UD Qty: 42 RF: 0 Continued verapamil 120 mg Tablet Extended Release 120 mg PO DAILY RF: 0 levothyroxine 50 mcg Tablet 50 mcg PO DAILY RF: 0 pantoprazole 40 mg Tablet,Delayed Release (Dr/Ec) 40 mg PO DAILY RF: 0 lisinopril 10 mg Tablet 10 mg PO DAILY RF: 0 Trelegy Ellipta 100-62.5-25 mcg Blister With Device 1 inh INHALATION DAILY RF: 0 sertraline 100 mg Tablet 100 mg PO DAILY RF: 0 montelukast 10 mg Tablet 10 mg PO PM RF: 0 atorvastatin 40 mg tablet 40 mg PO QAM RF: 0 thiamine HCl (vitamin B1) 100 mg Tablet 100 mg PO QAM RF: 0 docusate sodium [Colace] 100 mg Capsule 100 mg PO BID RF: 0 gabapentin 300 mg capsule 300 mg PO HS RF: 0 folic acid 1 mg Tablet 1 mg PO QAM RF: 0 metformin 1,000 mg Tablet Extended Release 24hr 1,000 mg PO DAILY RF: 0 albuterol sulfate 2.5 mg /3 mL (0.083 %) Solution For Nebulization 2.5 mg INHALATION TID Qty: 0 RF: 0 ipratropium bromide 0.02 % solution 0.5 mg Inhalation TID Qty: 0 RF: 0 No Action hydroxyzine HCl 50 mg Tablet 50 mg PO Q6 PRN (Reason: anxiety/agitation) RF: 0 albuterol sulfate 2.5 mg /3 mL (0.083 %) solution for nebulization 2.5 mg continuous nebulization Q4 PRN (Reason: Shortness Of Breath Or Wheezing) RF: 0 acetaminophen 325 mg Tablet 650 mg PO Q6 MDD 3g/24hr PRN (Reason: temp>101) RF: 0 acetaminophen 325 mg Tablet 650 mg PO Q6 MDD 3g/24hr PRN (Reason: pain scale 1-4) RF: 0 oxycodone 5 mg tablet 5 mg PO Q4H PRN (Reason: PAIN SCALE 5-10) RF: 0 ipratropium bromide 0.02 % solution 0.5 mg continuous nebulization Q4 PRN (Reason: Shortness Of Breath Or Wheezing) RF: 0 Discharge Orders: Discharge Order (Routine); Ordered 02/21/19 Ordered By: Shalini Madsen Admission Data Admit Date/Time: 02/13/19 09:58 Attending Provider: Shalini Madsen Admit Provider: Alejandro Shelby Primary Care Provider: Derrell Schmidt Other Providers: [facility] ; Alejandro Shelby ; Eugene Sarah ; Stephane Kirk ; Bravo David ; Surendra Wooten ; [facility], Other Interventions: Discharge Summary Assessment (RN) Last Done: 02/21/19 11:23 DC Date/Time DO NOT enter until pt leaves facility: 02/21/19 14:58
== END 2019-02-21 14:58 | DRG 469 ==
LOC: ED 06:37 → SUATTDRO 09:58 → 2N 09:58

== ENCOUNTER 2019-02-22 00:28 | Observation (INO) ==
--- NOTE | 2019-02-22 00:52 | Emergency Department Note ---
ED Provider Note Name: BRYNN QUIROGA Age: 69 Arrives Via: Ambulance Informant: Patient, EMS, Case Management CC: Rehab Placement HPI: 69M arrives for evaluation following issues at rehab. Patient notes he was discharged from this facility 6 hours ago following 1 week in hospital s/p right hip surgery. Notes he has been feeling better this week than he has in several months. Admits chronic SOB but that COPD is at baseline and feeling well with normal 4 L NC. Reportedly he was hypoxic at [place] though patient had no hypoxia for EMS. Notes ambulation is difficult due to pain right hip post surgery but using Oxy IR with improvement. Denies further falls/injuries. Denies headache, neck pain, cp, nausea, vomiting, back pain, urinary symptoms, nor other symptoms. Patient admits he was surprised this evening when he was transferred to [facility] as he thought he was [facility]. He states he did not feel safe at [facility] and feels he would likely "" there. Denies any miss treatment other than he had difficulty getting any staff to talk to him. No medications nor treatments prior to arrival. EMS states patient without any complaints nor issues while en route. Admits previously being on oral anticoagulation though this has been stopped in the past. He believes he has been getting Lovenox shots however. ROS: See above HPI for pertinent positives & negatives. A total of 6 systems reviewed and were otherwise negative. Past Medical History:COPD, TIA, DMII, PAF, DLP, HTN, GERD, BPH Past Surgical History:Right Hip Family History:Father DMII Social History:Single, lives at [place], daily smoker, daily 2 beers etoh, no drugs, retired Home Medications:See Below Allergies:[place] Vitals:Blood Pressure 118/68, Pulse 72, Resp 18, T 36.8C, O2 99% on 4L NC Physical Exam: GENERAL: Patient is chronically unwell appearing and in no acute distress. EYES: No scleral icterus, unremarkable pupils. RESPIRATORY: No dyspnea. Clear to auscultation and equal bilaterally. No wheeze, no rhonchi. CARDIOVASCULAR: Regular rate and rhythm.No murmurs, rubs, gallops appreciated. EXTREMITIES: Wound dressing over right hip. Extensive bruising right hip and lower abdomen. Minimal TTP right hip. Moderate pain with ROM right hip. Distal right leg with mild edema compared to left, no TTP. Pulses intact all 4. NEUROLOGIC: Alert and oriented, no acute motor or sensory deficits, no focal weakness, cranial nerves grossly intact. SKIN: No rash, no jaundice, no diaphoresis. ED Course: Prior Medical Record, Triage/Nursing Notes, Medications, Allergies reviewed by Me Vital Signs: reviewed and remarkable for no significant abnormalities Imaging:[facility] Radiologist interpretation reviewed by me: US Doppler right lower leg: No acute DVT Consults:Dr Dara Ann [facility] accepts to his service Reassessments/Times: Multiple, stable, no complaints Blood pressure:Normal.No Referral necessary Disposition:Hospitalization Medical Decision Makin yr old male with recent right hip fracture requiring surgery that was transferred to [facility] from this facility last night, however on arriving there he realized he was not where he thought he was going. This eventually lead to 911 being called and patient brought back here. He has no complaints other than refusing to return to [place] he had been sent to. On exam some edema right lower leg likely all due to post surgical of right hip, but US was done which ruled out DVT. No indication for repeating labs at this time. He declines any need for pain medications at this time. Due to inability to place at this time hospitalist was consulted for further management. 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 Required: No Beliefs That Will Affect Care: None marital status: Single Current Living Situation: Alone Feels Safe at Home: Yes Safety Concerns: Feels Safe At This Time Smoking Status: Current every day smoker Tobacco Type: cigarettes ; Cigarettes Per Day: 20 to 30 ; Second Hand Exposure: No ; Hx Alcohol Use: Yes Alcohol type: beer Alcohol Intake Frequency Comment: 2 beers a day Hx Substance Use: No Results & Data Vital Signs Vital Signs - 24 hr 02/22/19 00:41 02/22/19 02:24 Temperature 36.8 C Temperature Source Oral Pulse Rate 72 Pulse Rate [Finger] 92 H Respiratory Rate 18 18 Respiratory Effort / Characteristics Non-Labored Normal for Patient Respiratory Depth Normal Normal Blood Pressure 118/68 Blood Pressure [Right Arm] 116/88 Blood Pressure Mean 84 Blood Pressure Mean [Right Arm] 97 Pulse Oximetry 99 97 Oxygen Delivery Method Room Air Nasal Cannula Oxygen Flow Rate 4 Sepsis Recent Fever Within 48 Hours No Sepsis Action Taken by Nursing No Action Required Administered Medications Discontinued Medications Albuterol (Ventolin Hfa) 2 puffs INH NOW STA Stop: 02/22/19 02:57 Last Admin: 02/22/19 03:06 Dose: 2 puffs Documented by: [id number] Discharge Plan Visit Data *Final* Discharge Date/Time: 02/22/19 04:11 Chief Complaint: Referred by Doctor Stated Complaint: RETURN VISIT ED Provider: All Deng Discharge Problem: Ambulatory dysfunction, Localized swelling of right lower extremity Patient Disposition: Admitted As Inpatient Discharge Instructions Interventions: ED Discharge Assessment Last Done: 02/22/19 04:11
[2019-02-22] MEDS ORDERED: ALBUTEROL HFA 8 GM INHALER INH STA (02:56)
[2019-02-22] MEDS ORDERED: ACETAMINOPHEN 325 MG TAB PO PRN (04:28)
[2019-02-22] MEDS ORDERED: POLYETHYLENE (MIRALAX) 17 GM PACK PO PRN (04:28)
[2019-02-22] MEDS ORDERED: ONDANSETRON INJ 2 MG/ML 2 ML VIAL IV PRN (04:28)
[2019-02-22] MEDS ORDERED: OXYCODONE HCL IR 5 MG TAB (IMMEDIATE RELEASE) PO PRN (04:43)
--- NOTE | 2019-02-22 05:34 | History and Physical Report ---
DATE OF ADMISSION: 02/22/2019 CHIEF COMPLAINT: The patient was recently discharged to [facility], did not like the [facility] and is coming for placement. HISTORY OF PRESENT ILLNESS: This is a 69-year-old male with past medical history significant for COPD, chronic hypoxic respiratory failure, on 3.5-4 liters oxygen, history of TIA, tobacco abuse, hyperlipidemia, hypertension, paroxysmal atrial fibrillation, not on anticoagulation, diabetes type 2, bilateral lower extremity edema, hypothyroidism, GERD, alcohol use, who was recently in the hospital, admitted on 02/13/2019 with fall and right femur fracture. The patient is status post right bipolar hemiarthroplasty and he was discharged to [facility] on 02/21/2019. The patient says after going there he did not like the place, he cannot use their walker and his walker is at home and he cannot walk more than 10-15 feet and the bathroom was far away, unable to go to the bathroom and he did not like the place and he has just called the police couple of times and finally he was brought into the ER and the plan was to place him to [facility] on Saturday, so we are called to admit the patient for observation. The patient is currently resting comfortably and hemodynamically stable. Has a chronic cough, occasionally brings whitish phlegm. Denies any chest pain. He says he is somewhat short of breath because he is not walking, not moving from the bed for the last several days. Denies any chest pain, no nausea, no vomiting, no abdominal pain, somewhat constipated. Denies any blood in stools or black stools. He says he is micturating frequently, not emptying bladder completely.. Denies any hematuria or burning micturition. He has some soreness at surgical site, says sometimes legs swell and sometimes comes back to normal. Denies any fever, chills, no headache, no earache, no runny nose. Appetite is okay. Swallows okay. ALLERGIES: TURKEY. PAST MEDICAL HISTORY: As mentioned above. PAST SURGICAL HISTORY: Cataract surgery, status post bronchoscopy, status post right bipolar hemiarthroplasty. FAMILY HISTORY: Significant for diabetes. SOCIAL HISTORY: Currently lives alone. Smokes tobacco 20/30 cigarettes a day, alcohol 2 beers a day. No drug use. Currently coming from [facility]. REVIEW OF SYMPTOMS: As per HPI. Rest of review of symptoms are negative. PHYSICAL EXAMINATION: GENERAL: The patient is of moderate build, not in acute distress. VITAL SIGNS: Temperature 36.8, pulse 72, respiratory rate 18, blood pressure 116/88, oxygen 97% on 4 liters. HEENT: No pallor, no icterus. Pupils equal, round, reactive to light. NECK: No JVD, no neck masses, no carotid bruit. CARDIOVASCULAR: S1, S2 heard, regular rate and rhythm, no murmur, no gallop. RESPIRATORY SYSTEM: Normal AP diameter. No accessory muscle use. Mild diminished bilateral breath sounds. No wheezing, no crackles. ABDOMEN: Soft, bowel sounds present, nontender. No distention. CENTRAL NERVOUS SYSTEM: Alert, awake and oriented. Obeys commands. Moves extremities. EXTREMITIES: Right hip surgical site dressing, clean, no drainage seen. LABORATORIES Unavailable at this time. ASSESSMENT AND PLAN: This is a 69-year-old male with past medical history significant for chronic obstructive pulmonary disease, chronic hypoxic respiratory failure on 3.5-4 liter of oxygen, history of transient ischemic attack, ongoing tobacco abuse, hyperlipidemia, hypertension, paroxysmal atrial fibrillation, not on anticoagulation, type 2 diabetes, lower extremity edema, hypothyroidism, was recently in the hospital for fall and right femur fracture status post right bipolar hemiarthroplasty, was discharged to [facility]. din't liked the [facility] and was brought into the ER. Plan to send him to [facility]. The patient is agreeable to go to [facility]. We will observe the patient in the hospital until the patient is placed. 1. Status post right hip hemiarthroplasty on day 4. PT, OT while in the hospital. Plan for [facility] placement. Social Service to help with placement. 2. Chronic respiratory failure with chronic obstructive pulmonary disease: The patient while in the hospital was treated for mild chronic obstructive pulmonary disease exacerbation. Was placed on tapering steroids at discharge. We will continue steroids. Continue his home inhalers and nebs p.r.n. 3. History of paroxysmal atrial fibrillation: The patient had a brief episode of rapid atrial fibrillation during last admission. Not on anticoagulation, currently he is on verapamil. An echo was okay during last admission. 4. History of transient ischemic attack: On statin. 5. Hypertension: On verapamil and lisinopril with holding parameters. 6. Gastroesophageal reflux disease: On PPI. 7. Depression: On sertraline. 8. History of alcoholism, no thiamine. 9. Diabetes. Holding metformin, place on insulin sliding scale, monitor his blood sugars while in the hospital. 10. Hypothyroidism. Continue Synthroid. 11. Hyperlipidemia: Continue statin, 12. Deep venous thrombosis prophylaxis, currently on Lovenox. 13. Disposition: Observation in medical floor. PT and OT. Social Service to help with placement. Plan for [facility]. Code status. Full code. MTDD
[2019-02-22] MEDS: LEVOTHYROXINE SODIUM 50 MCG TABLET PO SCH (06:09)
--- NOTE | 2019-02-22 06:31 | Ultrasound Report ---
US venous doppler LE RT CLINICAL HISTORY: Right leg swelling status post hip surgery COMPARISON STUDY: 02/17/2019 FINDINGS: Real-time and color flow Doppler imaging were performed. Flow was seen within the femoral, popliteal and calf veins with no intraluminal thrombus demonstrated. The saphenous vein is patent. IMPRESSION: No evidence of right lower extremity DVT. ACT 112: Negative or not required by law. Electronically signed by: Vladimir Parmar M.D. 02/22/2019 6:30 AM
[2019-02-22] MEDS ORDERED: ALBUTEROL 0.5% NEB SOLN 2.5 MG/0.5 ML VIAL INH SCH (07:00)
[2019-02-22] MEDS: IPRATROPIUM BROMIDE NEB SOLN 0.02% 2.5 ML VIAL INH SCH ×3 (07:45→19:53)
[2019-02-22] MEDS: LEVALBUTEROL 1.25MG/0.5ML NEB NEB SCH ×3 (07:45→19:54)
[2019-02-22] MEDS: THIAMINE HCL 100 MG TAB PO SCH (10:03)
[2019-02-22] MEDS: DOCUSATE SODIUM 100 MG CAP PO SCH ×2 (10:03→21:07)
[2019-02-22] MEDS: PANTOprazole 40 MG TAB PO SCH (10:03)
[2019-02-22] MEDS: predniSONE 20 MG TAB PO SCH (10:03)
[2019-02-22] MEDS: ATORVASTATIN 40 MG TAB PO SCH (10:03)
[2019-02-22] MEDS: SERTRALINE HCL 100 MG TABLET PO SCH (10:03)
[2019-02-22] MEDS: lisinopriL 10 MG TAB PO SCH (10:04)
[2019-02-22] MEDS: FOLIC ACID 1 MG TAB PO SCH (10:04)
[2019-02-22] MEDS: ENOXAPARIN INJ 40 MG/0.4 ML SYR SQ SCH (10:05)
[2019-02-22] MEDS: VERAPAMIL HCL 120 MG TABCR PO SCH (10:05)
[2019-02-22] MEDS: NICOTINE 21 MG/24 HR TDSY TD SCH (10:05)
--- NOTE | 2019-02-22 14:23 | Hospitalist Progress Note ---
Date of Service February 22, 2019 Assessment & Plan (1) Fall: (1) Fall: (2) Right femoral fracture: Patient is a 69 yr male with H/O COPD, chronic hypoxemic respiratory failure on 3.5-4 L oxygen, TIA, tobacco use, dyslipidemia, HTN, paroxysmal atrial fibrillation not on anticoagulation, DM II, BLE edema, hypothyroidism presented with c/o dizziness then fall onto right side and c/o right hip pain. S/P Right Bipolar Hemiarthroplasty POD #3 Right HIP XRAY: Acute transcervical fracture of the right femur with minimal displacement. Right KNEE XRAY: No acute fracture or joint effusion of the right knee. Appreciate orthopedics input Pain is controlled Bowel regimen to prevent constipation PT OT ongoing and will need to continue Wound care, activity as per Ortho At discharge to [facility] yesterday and came back up to 6 hours To symptoms and/or findings on examination We will try to send him back to skilled care when accepted Metabolic encephalopathy-resolved on 02/18/2019 CT head:No acute intracranial findings. No change in appearance of the brain. Urine culture : No growth today Normal ammonia levels Reorient frequently to minimize delirium Does not have any delirium as of 02/20/2019 (3) Chronic respiratory failure: (4) COPD exacerbation: Mild COPD exacerbation On chronic 3.5-4 L oxygen via nasal cannula at baseline Denies any increased cough, increased sputum production, increased shortness of breath continue Trelegy Ellipta Continue supplemental oxygen 3.5-4 L Continue doxycycline, Rocephin, Solumedrol, nebs Respiratory status better We will discontinue intravenous steroid and was discharged on tapering dose of steroid We will continue current medications and oxygen administration Pulmonary vascular congestion Likely secondary to IV fluids IV Lasix as needed Volume status improved Doubt any CHF-no crackles on examination and no orthopnea (5) Paroxysmal atrial fibrillation: Afib RVR H/O paroxysmal atrial fibrillation occurring with COPD exacerbations. Not on anticoagulation at home Continue verapamil Started on IV heparin IV Lopressor PRN Appreciate cardiology input Seems to be in sinus rhythm today Management as per load blocker Echo-no significant change compared with prior test, EF 60 to 65%, mild concentric LV hypertrophy without any wall motion abnormalities and no pericardial effusion Does not require prolonged anticoagulation No new symptoms (6) TIA (transient ischemic attack): H/O TIA in 1982. Patient not on aspirin Continue atorvastatin (7) HTN (hypertension): Hold lisinopril due to [place] Continue verapamil with holding parameters Acute kidney injury Creatinine: 1.5>>1.15 Renal USD:Bilateral nephrolithiasis. No hydronephrosis. Hold lisinopril, Metformin Received IV fluids Renal function is normalized Lisinopril has been restarted and the blood pressure seems to be reasonably controlled (8) Dyslipidemia: Continue atorvastatin (9) Diabetes mellitus, type II: A1c: 5.8 on 10/17/2018 Hold metformin Continue Insulin while hospitalized Blood sugar was running low normal and insulin doses have been decreased for that (10) Hypothyroidism: TSH: 0.6 on 10/17/2018 Continue levothyroxine (11) GERD (gastroesophageal reflux disease): Continue PPI (12) Tobacco use: Smoking cessation encouraged (13) Alcohol use: Drinks 2 beers daily. Denies history of alcohol withdrawal Continue thiamine, folic acid Monitor for withdrawal-no symptoms of withdrawal DVT Px: Heparin drip discontinued Subcu heparin CODE STATUS Full Code Disposition PT OT Needs rehab placement The above note was copied from recent hospitalization Subjective 02/22/2019 The patient was seen and examined in medical floor he has been back from [facility] after 6 hours of discharge As per note he did not like the place and he was noted to have hypoxia and he was thinking that he will if he has been there Denies any symptoms in the hospital Review of Systems Review of Systems: All systems reviewed and are unremarkable except as noted below Respiratory: Minimal shortness of breath at rest without any desaturation on 4 L Physical Exam Physical Exam: Lying in bed comfortably Constitutional: well developed, well nourished, + acute distress (Minimal shortness of breath at rest) and + ill appearing Eyes: PERRL, conjunctivae normal, anicteric sclerae ENMT: external ear and nose normal, oropharynx normal Neck: trachea midline, no thyromegaly Respiratory: + respiratory distress (Minimal at rest) Auscultation: + diminished lung sounds and + wheezes (Occasional wheezing bilaterally) Cardiovascular: Rate/Rhythm: regular rate and regular rhythm Heart Sounds: no murmur Gastrointestinal (Abdomen): Inspection/Auscultation: abdomen normal to inspection and normal bowel sounds Musculoskeletal: Pain in the right hip with movement Neurologic: moves all extremities Lymphatic: no cervical or axillary lymphadenopathy Results & Data Vital Signs (Past 12 Hours) Vital Signs Temp Pulse Pulse Resp BP BP Pulse Ox 02/22/19 13:33 67 22 97 02/22/19 12:27 02/22/19 08:00 36.7 C 64 19 112/55 L 98 02/22/19 07:45 77 18 97 02/22/19 04:31 36.7 C 76 16 115/62 95 02/22/19 04:11 72 22 107/53 L 94 02/22/19 02:24 92 H 18 116/88 97 Pulse Ox 02/22/19 13:33 02/22/19 12:27 97 02/22/19 08:00 02/22/19 07:45 02/22/19 04:31 02/22/19 04:11 02/22/19 02:24 Medications Administered Current Inpatient Medications Acetaminophen (Tylenol) 650 mg PO Q4H PRN PRN Reason: pain/fever Stop: 03/24/19 04:27 Last Admin: 02/22/19 06:11 Dose: 650 mg Documented by: Albuterol (Ventolin 0.083% 2.5mg/3ml) 2.5 mg INH Q4 PRN PRN Reason: Shortness Of Breath Or Wheezing Stop: 03/24/19 04:27 Atorvastatin Calcium (Lipitor) 40 mg PO QAM [facility] Stop: 03/24/19 08:59 Last Admin: 02/22/19 10:03 Dose: 40 mg Documented by: Docusate Sodium (Colace) 100 mg PO BID [facility] Stop: 03/24/19 08:59 Last Admin: 02/22/19 10:03 Dose: 100 mg Documented by: Enoxaparin Sodium (Lovenox) 40 mg SQ Q24H [facility] Stop: 03/24/19 08:59 Last Admin: 02/22/19 10:05 Dose: 40 mg Documented by: Folic Acid (Folvite) 1 mg PO QAM [facility] Stop: 03/24/19 08:59 Last Admin: 02/22/19 10:04 Dose: 1 mg Documented by: Gabapentin (Neurontin) 300 mg PO HS [facility] Stop: 03/24/19 20:59 Hydroxyzine HCl (Vistaril) 50 mg PO Q6 PRN PRN Reason: anxiety/agitation Stop: 03/24/19 04:27 Ipratropium [place] (Atrovent 0.02% 0.5mg/2.5ml) 0.5 mg NEB Q4 PRN PRN Reason: Shortness Of Breath Or Wheezing Stop: 03/24/19 04:27 Ipratropium [place] (Atrovent 0.02% 0.5mg/2.5ml) 0.5 mg INH TIDR [facility] Stop: 03/24/19 06:59 Last Admin: 02/22/19 13:30 Dose: 0.5 mg Documented by: Levalbuterol HCl (Xopenex 1.25mg/0.5ml Neb) 1.25 mg NEB TIDR [facility] Stop: 03/24/19 06:59 Last Admin: 02/22/19 13:30 Dose: 1.25 mg Documented by: Levothyroxine Sodium (Synthroid) 50 mcg PO DAILYBB [facility] Stop: 03/24/19 06:29 Last Admin: 02/22/19 06:09 Dose: 50 mcg Documented by: Lisinopril (Zestril) 10 mg PO DAILY [facility] Stop: 03/24/19 08:59 Last Admin: 02/22/19 10:04 Dose: 10 mg Documented by: Miscellaneous (Order Awaiting Action) 1 ea N/A QS [facility] Stop: 03/24/19 07:59 Last Admin: 02/22/19 10:00 Dose: Not Given Documented by: Miscellaneous (Remove Nicoderm Patch) 1 ea N/A DAILY@0859 [facility] Stop: 03/24/19 08:58 Last Admin: 02/22/19 10:06 Dose: 1 ea Documented by: Montelukast Sodium (Singulair) 10 mg PO PM [facility] Stop: 03/24/19 20:59 Nicotine (Nicoderm Cq) 21 mg TD QAM [facility] Stop: 03/24/19 08:59 Last Admin: 02/22/19 10:05 Dose: 21 mg Documented by: Ondansetron HCl (Zofran) 4 mg IV Q6H PRN PRN Reason: Nausea Stop: 03/24/19 04:27 Oxycodone HCl (Roxicodone Immediate Rel) 5 mg PO Q4H PRN PRN Reason: Pain Stop: 03/08/19 04:42 Pantoprazole Sodium (Protonix) 40 mg PO DAILY [facility] Stop: 03/24/19 08:59 Last Admin: 02/22/19 10:03 Dose: 40 mg Documented by: Polyethylene Glycol (Miralax Powder Packet) 17 gm PO DAILY PRN PRN Reason: Constipation Stop: 03/24/19 04:27 Prednisone (Prednisone) 40 mg PO DAILY [facility] Stop: 03/24/19 08:59 Last Admin: 02/22/19 10:03 Dose: 40 mg Documented by: Sertraline HCl (Zoloft) 100 mg PO DAILY [facility] Stop: 03/24/19 08:59 Last Admin: 02/22/19 10:03 Dose: 100 mg Documented by: Thiamine HCl (Vitamin B-1) 100 mg PO QAM [facility] Stop: 03/24/19 08:59 Last Admin: 02/22/19 10:03 Dose: 100 mg Documented by: Verapamil HCl (Calan Sr) 120 mg PO DAILY [facility] Stop: 03/24/19 08:59 Last Admin: 02/22/19 10:05 Dose: 120 mg Documented by: (1) Fall Encounter type: initial encounter Qualified Code(s): W19.XXXA - Unspecified fall, initial encounter
[2019-02-22] MEDS ORDERED: MONTELUKAST SODIUM 10 MG TABLET PO SCH (21:00)
[2019-02-22] MEDS ORDERED: GABAPENTIN 300 MG CAP PO SCH (21:00)
[2019-02-22] MEDS: INSULIN ASPART 100 UNITS/ML 3 ML PEN SC SCH (21:14)
[2019-02-23] MEDS: IPRATROPIUM BROMIDE NEB SOLN 0.02% 2.5 ML VIAL NEB PRN ×2 (00:42→10:28)
[2019-02-23] MEDS: ALBUTEROL 0.083% NEBU SOLN 3 ML VIAL INH PRN ×2 (00:42→10:26)
[2019-02-23 05:15] LABS: Eosinophils % (auto) 0.9 %; Hematocrit (blood only) 25.5 % (42-52); Hemoglobin 8.4 g/dL (14.0-18.0); Immature Granulocytes # (auto) 0.07 K/uL (0.00-0.02); Immature Granulocytes % (auto) 0.6 %; Lymphocytes # (auto) 2.02 K/uL (1.2-3.4); Lymphocytes % (auto) 18.7 %; Mean Corpuscular Hemoglobin 33.2 pg (25-34); Mean Corpuscular Hgb Conc 32.9 g/dL (32-36); Mean Corpuscular Volume 100.8 fL (80-100); Mean Platelet Volume 9.9 fL (7.4-10.4); Monocytes # (auto) 1.17 K/uL (0.11-0.59); Monocytes % (auto) 10.8 %; Neutrophils # (auto) 7.43 K/uL (1.4-6.5); Platelet Count 232 K/uL (130-400); RDW Coefficient of Variation 13.4 % (11.5-14.5); RDW Standard Deviation 48.8 fL (36.4-46.3); Red Blood Count 2.53 M/uL (4.7-6.1); White Blood Count 10.79 K/uL (4.8-10.8)
[2019-02-23 05:43] LABS: BUN Creatinine Ratio 19.6 (10-20); Calcium 8.3 mg/dl (8.5-10.1); Creatinine Clr Calc Pharmacy 69.8 ml/min; Est GFR (African American) 83.8; Est GFR (Non-African American) 72.3; Magnesium 2.3 mg/dl (1.8-2.4)
[2019-02-23 05:44] LABS: Phosphorus 3.6 mg/dl (2.5-4.9)
[2019-02-23] MEDS: LEVOTHYROXINE SODIUM 50 MCG TABLET PO SCH (06:22)
[2019-02-23] MEDS: IPRATROPIUM BROMIDE NEB SOLN 0.02% 2.5 ML VIAL INH SCH ×2 (06:59→13:54)
[2019-02-23] MEDS: LEVALBUTEROL 1.25MG/0.5ML NEB NEB SCH ×2 (06:59→13:54)
[2019-02-23] MEDS: DOCUSATE SODIUM 100 MG CAP PO SCH (07:55)
[2019-02-23] MEDS: predniSONE 20 MG TAB PO SCH (07:55)
[2019-02-23] MEDS: SERTRALINE HCL 100 MG TABLET PO SCH (07:56)
[2019-02-23] MEDS: lisinopriL 10 MG TAB PO SCH (07:56)
[2019-02-23] MEDS: ATORVASTATIN 40 MG TAB PO SCH (07:56)
[2019-02-23] MEDS: PANTOprazole 40 MG TAB PO SCH (07:56)
[2019-02-23] MEDS: THIAMINE HCL 100 MG TAB PO SCH (07:57)
[2019-02-23] MEDS: VERAPAMIL HCL 120 MG TABCR PO SCH (07:57)
[2019-02-23] MEDS: FOLIC ACID 1 MG TAB PO SCH (07:57)
[2019-02-23] MEDS: ENOXAPARIN INJ 40 MG/0.4 ML SYR SQ SCH (07:57)
[2019-02-23] MEDS: NICOTINE 21 MG/24 HR TDSY TD SCH (07:58)
[2019-02-23] MEDS: INSULIN ASPART 100 UNITS/ML 3 ML PEN SC SCH ×2 (08:49→13:04)
--- NOTE | 2019-02-23 14:07 | Hospitalist Progress Note ---
Date of Service February 23, 2019 Assessment & Plan (1) Fall: (1) Fall: (2) Right femoral fracture: Patient is a 69 yr male with H/O COPD, chronic hypoxemic respiratory failure on 3.5-4 L oxygen, TIA, tobacco use, dyslipidemia, HTN, paroxysmal atrial fibrillation not on anticoagulation, DM II, BLE edema, hypothyroidism presented with c/o dizziness then fall onto right side and c/o right hip pain. S/P Right Bipolar Hemiarthroplasty POD #3 Right HIP XRAY: Acute transcervical fracture of the right femur with minimal displacement. Right KNEE XRAY: No acute fracture or joint effusion of the right knee. Appreciate orthopedics input Pain is controlled Bowel regimen to prevent constipation PT OT ongoing and will need to continue Wound care, activity as per Ortho At discharge to [facility] yesterday and came back up to 6 hours To symptoms and/or findings on examination We will try to send him back to skilled care when accepted He has been waiting acceptance from [facility] Medically stable to be discharged Continue physical therapy, use of narcotics as less as possible Metabolic encephalopathy-resolved on 02/18/2019 CT head:No acute intracranial findings. No change in appearance of the brain. Urine culture : No growth today Normal ammonia levels Reorient frequently to minimize delirium Does not have any delirium as of 02/20/2019 (3) Chronic respiratory failure: (4) COPD exacerbation: Mild COPD exacerbation On chronic 3.5-4 L oxygen via nasal cannula at baseline Denies any increased cough, increased sputum production, increased shortness of breath continue Trelegy Ellipta Continue supplemental oxygen 3.5-4 L Continue doxycycline, Rocephin, Solumedrol, nebs Respiratory status better We will discontinue intravenous steroid and was discharged on tapering dose of steroid We will continue current medications and oxygen administration Will need to continue current dose of oxygen Pulmonary vascular congestion Likely secondary to IV fluids IV Lasix as needed Volume status improved Doubt any CHF-no crackles on examination and no orthopnea (5) Paroxysmal atrial fibrillation: Afib RVR H/O paroxysmal atrial fibrillation occurring with COPD exacerbations. Not on anticoagulation at home Continue verapamil Started on IV heparin IV Lopressor PRN Appreciate cardiology input Seems to be in sinus rhythm today Management as per tablet repair Echo-no significant change compared with prior test, EF 60 to 65%, mild concentric LV hypertrophy without any wall motion abnormalities and no pericardial effusion Does not require prolonged anticoagulation No new symptoms (6) TIA (transient ischemic attack): H/O TIA in 1982. Patient not on aspirin Continue atorvastatin (7) HTN (hypertension): Hold lisinopril due to [place] Continue verapamil with holding parameters Acute kidney injury Creatinine: 1.5>>1.15 Renal USD:Bilateral nephrolithiasis. No hydronephrosis. Hold lisinopril, Metformin Received IV fluids Renal function is normalized Lisinopril has been restarted and the blood pressure seems to be reasonably controlled (8) Dyslipidemia: Continue atorvastatin (9) Diabetes mellitus, type II: A1c: 5.8 on 10/17/2018 Hold metformin Continue Insulin while hospitalized Blood sugar was running low normal and insulin doses have been decreased for that (10) Hypothyroidism: TSH: 0.6 on 10/17/2018 Continue levothyroxine (11) GERD (gastroesophageal reflux disease): Continue PPI (12) Tobacco use: Smoking cessation encouraged (13) Alcohol use: Drinks 2 beers daily. Denies history of alcohol withdrawal Continue thiamine, folic acid Monitor for withdrawal-no symptoms of withdrawal DVT Px: Heparin drip discontinued Subcu heparin CODE STATUS Full Code Disposition PT OT Needs rehab placement The above note was copied from recent hospitalization Subjective 02/22/2019 The patient was seen and examined in medical floor he has been back from [facility] after 6 hours of discharge As per note he did not like the place and he was noted to have hypoxia and he was thinking that he will if he has been there Denies any symptoms in the hospital 02/23/2019 The patient was seen and examined in medical floor He remains stable and denies any significant symptoms He is waiting to be accepted from [facility] Denies any significant symptoms Review of Systems Review of Systems: All systems reviewed and are unremarkable except as noted below Respiratory: Minimal shortness of breath at rest without any desaturation on 4 L Physical Exam Physical Exam: Lying in bed with minimal shortness of breath Constitutional: well developed, well nourished, + acute distress (Minimal shortness of breath at rest) and + ill appearing Eyes: PERRL, conjunctivae normal, anicteric sclerae ENMT: external ear and nose normal, oropharynx normal Neck: trachea midline, no thyromegaly Respiratory: + respiratory distress (Minimal at rest) Auscultation: + diminished lung sounds and + wheezes (Occasional wheezing bilaterally) Cardiovascular: Rate/Rhythm: regular rate and regular rhythm Heart Sounds: no murmur Gastrointestinal (Abdomen): Inspection/Auscultation: abdomen normal to inspection and normal bowel sounds Musculoskeletal: Pain with movement of the right lower extremity Neurologic: moves all extremities Lymphatic: no cervical or axillary lymphadenopathy Results & Data Vital Signs (Past 12 Hours) Vital Signs Temp Pulse Resp BP Pulse Ox 02/23/19 13:54 65 16 98 02/23/19 10:28 74 18 98 02/23/19 07:34 36.5 C 60 16 115/56 L 99 02/23/19 07:02 65 18 98 Laboratory Results Short CBC 02/23/19 Range/Units 04:51 WBC 10.79 (4.8-10.8) K/uL Hgb 8.4 L (14.0-18.0) g/dL Hct 25.5 L (42-52) % Plt Count 232 (130-400) K/uL BMP 02/23/19 04:51 Sodium 142 Potassium 4.0 Chloride 106 Carbon Dioxide 35 H BUN 21 H Creatinine 1.06 Glucose 96 Calcium 8.3 L Medications Administered Current Inpatient Medications Acetaminophen (Tylenol) 650 mg PO Q4H PRN PRN Reason: pain/fever Stop: 03/24/19 04:27 Last Admin: 02/22/19 06:11 Dose: 650 mg Documented by: Albuterol (Ventolin 0.083% 2.5mg/3ml) 2.5 mg INH Q4 PRN PRN Reason: Shortness Of Breath Or Wheezing Stop: 03/24/19 04:27 Last Admin: 02/23/19 10:26 Dose: 2.5 mg Documented by: Atorvastatin Calcium (Lipitor) [facility] [place]: 03/24/19 08:59 Last Admin: 02/23/19 07:56 Dose: 40 mg Documented by: Docusate Sodium (Colace) 100 mg PO BID [facility] Stop: 03/24/19 08:59 Last Admin: 02/23/19 07:55 Dose: 100 mg Documented by: Enoxaparin Sodium (Lovenox) 40 mg SQ Q24H [facility] Stop: 03/24/19 08:59 Last Admin: 02/23/19 07:57 Dose: 40 mg Documented by: Folic Acid (Folvite) 1 mg PO QAM [facility] Stop: 03/24/19 08:59 Last Admin: 02/23/19 07:57 Dose: 1 mg Documented by: Gabapentin (Neurontin) 300 mg PO HS [facility] Stop: 03/24/19 20:59 Last Admin: 02/22/19 21:08 Dose: 300 mg Documented by: Hydroxyzine HCl (Vistaril) 50 mg PO Q6 PRN PRN Reason: anxiety/agitation Stop: 03/24/19 04:27 Insulin Aspart (Novolog Flexpen) 0 units SC ACHS [facility] Stop: 03/24/19 20:59 Last Admin: 02/23/19 13:04 Dose: 7 units Documented by: Ipratropium [place] (Atrovent 0.02% 0.5mg/2.5ml) 0.5 mg NEB Q4 PRN PRN Reason: Shortness Of Breath Or Wheezing Stop: 03/24/19 04:27 Last Admin: 02/23/19 10:28 Dose: 0.5 mg Documented by: Ipratropium [place] (Atrovent 0.02% 0.5mg/2.5ml) 0.5 mg INH TIDR [facility] Stop: 03/24/19 06:59 Last Admin: 02/23/19 13:54 Dose: 0.5 mg Documented by: Levalbuterol HCl (Xopenex 1.25mg/0.5ml Neb) 1.25 mg NEB TIDR [facility] Stop: 03/24/19 06:59 Last Admin: 02/23/19 13:54 Dose: 1.25 mg Documented by: Levothyroxine Sodium (Synthroid) 50 mcg PO DAILYBB [facility] Stop: 03/24/19 06:29 Last Admin: 02/23/19 06:22 Dose: 50 mcg Documented by: Lisinopril (Zestril) 10 mg PO DAILY [facility] Stop: 03/24/19 08:59 Last Admin: 02/23/19 07:56 Dose: 10 mg Documented by: Miscellaneous (Order Awaiting Action) 1 ea N/A QS [facility] Stop: 03/24/19 07:59 Last Admin: 02/23/19 08:02 Dose: Not Given Documented by: Miscellaneous (Remove Nicoderm Patch) 1 ea N/A DAILY@0859 [facility] Stop: 03/24/19 08:58 Last Admin: 02/23/19 08:02 Dose: 1 ea Documented by: Montelukast Sodium (Singulair) 10 mg PO PM [facility] Stop: 03/24/19 20:59 Last Admin: 02/22/19 21:07 Dose: 10 mg Documented by: Nicotine (Nicoderm Cq) 21 mg TD QAM [facility] Stop: 03/24/19 08:59 Last Admin: 02/23/19 07:58 Dose: 21 mg Documented by: Ondansetron HCl (Zofran) 4 mg IV Q6H PRN PRN Reason: Nausea Stop: 03/24/19 04:27 Oxycodone HCl (Roxicodone Immediate Rel) 5 mg PO Q4H PRN PRN Reason: Pain Stop: 03/08/19 04:42 Last Admin: 02/22/19 23:59 Dose: 5 mg Documented by: Pantoprazole Sodium (Protonix) 40 mg PO DAILY [facility] Stop: 03/24/19 08:59 Last Admin: 02/23/19 07:56 Dose: 40 mg Documented by: Polyethylene Glycol (Miralax Powder Packet) 17 gm PO DAILY PRN PRN Reason: Constipation Stop: 03/24/19 04:27 Prednisone (Prednisone) 40 mg PO DAILY [facility] Stop: 03/24/19 08:59 Last Admin: 02/23/19 07:55 Dose: 40 mg Documented by: Sertraline HCl (Zoloft) 100 mg PO DAILY [facility] Stop: 03/24/19 08:59 Last Admin: 02/23/19 07:56 Dose: 100 mg Documented by: Thiamine HCl (Vitamin B-1) 100 mg PO QAM [facility] Stop: 03/24/19 08:59 Last Admin: 02/23/19 07:57 Dose: 100 mg Documented by: Verapamil HCl (Calan Sr) 120 mg PO DAILY [facility] Stop: 03/24/19 08:59 Last Admin: 02/23/19 07:57 Dose: 120 mg Documented by: (1) Fall Encounter type: initial encounter Qualified Code(s): W19.XXXA - Unspecified fall, initial encounter
--- NOTE | 2019-02-24 08:58 | Discharge Summary ---
Date of Service February 24, 2019 Admission HPI Per Admitting Provider DICTATED BY: Chapincito Diamond MD DATE OF ADMISSION: 02/22/2019 CHIEF COMPLAINT: The patient was recently discharged to [facility], did not like the [facility] and is coming for placement. HISTORY OF PRESENT ILLNESS: This is a 69-year-old male with past medical history significant for COPD, chronic hypoxic respiratory failure, on 3.5-4 liters oxygen, history of TIA, tobacco abuse, hyperlipidemia, hypertension, paroxysmal atrial fibrillation, not on anticoagulation, diabetes type 2, bilateral lower extremity edema, hypothyroidism, GERD, alcohol use, who was recently in the hospital, admitted on 02/13/2019 with fall and right femur fracture. The patient is status post right bipolar hemiarthroplasty and he was discharged to [facility] on 02/21/2019. The patient says after going there he did not like the place, he cannot use their walker and his walker is at home and he cannot walk more than 10-15 feet and the bathroom was far away, unable to go to the bathroom and he did not like the place and he has just called the police couple of times and finally he was brought into the ER and the plan was to place him to [facility] on Saturday, so we are called to admit the patient for observation. The patient is currently resting comfortably and hemodynamically stable. Has a chronic cough, occasionally brings whitish phlegm. Denies any chest pain. He says he is somewhat short of breath because he is not walking, not moving from the bed for the last several days. Denies any chest pain, no nausea, no vomiting, no abdominal pain, somewhat constipated. Denies any blood in stools or black stools. He says he is micturating frequently, not emptying bladder completely.. Denies any hematuria or burning micturition. He has some soreness at surgical site, says sometimes legs swell and sometimes comes back to normal. Denies any fever, chills, no headache, no earache, no runny nose. Appetite is okay. Swallows okay. Admission Exam Per Admitting Provider GENERAL: The patient is of moderate build, not in acute distress. VITAL SIGNS: Temperature 36.8, pulse 72, respiratory rate 18, blood pressure 116/88, oxygen 97% on 4 liters. HEENT: No pallor, no icterus. Pupils equal, round, reactive to light. NECK: No JVD, no neck masses, no carotid bruit. CARDIOVASCULAR: S1, S2 heard, regular rate and rhythm, no murmur, no gallop. RESPIRATORY SYSTEM: Normal AP diameter. No accessory muscle use. Mild diminished bilateral breath sounds. No wheezing, no crackles. ABDOMEN: Soft, bowel sounds present, nontender. No distention. CENTRAL NERVOUS SYSTEM: Alert, awake and oriented. Obeys commands. Moves extremities. EXTREMITIES: Right hip surgical site dressing, clean, no drainage seen. Principal Diagnosis Fall with right femoral fracture status post right bipolar hemiarthroplasty, COPD exacerbation on oxygen, paroxysmal atrial fibrillation not for any long anticoagulation, TIA Discharge Exam Constitutional well developed, well nourished, + acute distress (Minimal shortness of breath at rest) and + ill appearing Eyes PERRL, conjunctivae normal, anicteric sclerae ENMT external ear and nose normal, oropharynx normal Neck trachea midline, no thyromegaly Respiratory + respiratory distress (Minimal at rest) Auscultation: + diminished lung sounds and + wheezes (Occasional wheezing bilaterally) Cardiovascular Rate/Rhythm: regular rate and regular rhythm Heart Sounds: no murmur Gastrointestinal (Abdomen) Inspection/Auscultation: abdomen normal to inspection and normal bowel sounds Neurologic moves all extremities Lymphatic no cervical or axillary lymphadenopathy Discharge Data Allergies Allergy/AdvReac Type Severity Reaction Status Date / Time turkey Allergy Unknown Verified 02/22/19 02:08 Consultations 02/22/19 02:30 ED Decision to Admit Stat 02/22/19 04:28 Consult Case Management - Discharge Planning Routine Ordered Studies 02/22/19 00:44 US venous doppler LE RT Urgent Hospital Course (1) Fall: (1) Fall: (2) Right femoral fracture: Patient is a 69 yr male with H/O COPD, chronic hypoxemic respiratory failure on 3.5-4 L oxygen, TIA, tobacco use, dyslipidemia, HTN, paroxysmal atrial fibrillation not on anticoagulation, DM II, BLE edema, hypothyroidism presented with c/o dizziness then fall onto right side and c/o right hip pain. S/P Right Bipolar Hemiarthroplasty POD #3 Right HIP XRAY: Acute transcervical fracture of the right femur with minimal displacement. Right KNEE XRAY: No acute fracture or joint effusion of the right knee. Appreciate orthopedics input Pain is controlled Bowel regimen to prevent constipation PT OT ongoing and will need to continue Wound care, activity as per Ortho At discharge to [facility] yesterday and came back up to 6 hours To symptoms and/or findings on examination We will try to send him back to skilled care when accepted He has been waiting acceptance from [facility] Medically stable to be discharged Continue physical therapy, use of narcotics as less as possible Metabolic encephalopathy-resolved on 02/18/2019 CT head:No acute intracranial findings. No change in appearance of the brain. Urine culture : No growth today Normal ammonia levels Reorient frequently to minimize delirium Does not have any delirium as of 02/20/2019 (3) Chronic respiratory failure: (4) COPD exacerbation: Mild COPD exacerbation On chronic 3.5-4 L oxygen via nasal cannula at baseline Denies any increased cough, increased sputum production, increased shortness of breath continue Trelegy Ellipta Continue supplemental oxygen 3.5-4 L Continue doxycycline, Rocephin, Solumedrol, nebs Respiratory status better We will discontinue intravenous steroid and was discharged on tapering dose of steroid We will continue current medications and oxygen administration Will need to continue current dose of oxygen Pulmonary vascular congestion Likely secondary to IV fluids IV Lasix as needed Volume status improved Doubt any CHF-no crackles on examination and no orthopnea (5) Paroxysmal atrial fibrillation: Afib RVR H/O paroxysmal atrial fibrillation occurring with COPD exacerbations. Not on anticoagulation at home Continue verapamil Started on IV heparin IV Lopressor PRN Appreciate cardiology input Seems to be in sinus rhythm today Management as per solar sales advisor Echo-no significant change compared with prior test, EF 60 to 65%, mild concentric LV hypertrophy without any wall motion abnormalities and no pericardial effusion Does not require prolonged anticoagulation No new symptoms (6) TIA (transient ischemic attack): H/O TIA in 1982. Patient not on aspirin Continue atorvastatin (7) HTN (hypertension): Hold lisinopril due to [place] Continue verapamil with holding parameters Acute kidney injury Creatinine: 1.5>>1.15 Renal USD:Bilateral nephrolithiasis. No hydronephrosis. Hold lisinopril, Metformin Received IV fluids Renal function is normalized Lisinopril has been restarted and the blood pressure seems to be reasonably controlled (8) Dyslipidemia: Continue atorvastatin (9) Diabetes mellitus, type II: A1c: 5.8 on 10/17/2018 Hold metformin Continue Insulin while hospitalized Blood sugar was running low normal and insulin doses have been decreased for that (10) Hypothyroidism: TSH: 0.6 on 10/17/2018 Continue levothyroxine (11) GERD (gastroesophageal reflux disease): Continue PPI (12) Tobacco use: Smoking cessation encouraged (13) Alcohol use: Drinks 2 beers daily. Denies history of alcohol withdrawal Continue thiamine, folic acid Monitor for withdrawal-no symptoms of withdrawal DVT Px: Heparin drip discontinued Subcu heparin CODE STATUS Full Code Disposition PT OT Needs rehab placement The above note was copied from recent hospitalization Total Time Total Time Spent Total Time Spent (In Minutes): 35 minutes Total Time Includes: Examination of the Patient, Discharge Planning, Medication Reconciliation and Communication With Other Providers Discharge Plan Discharge Items Patient Disposition: Transfer [facility] Care Fac Reason For Visit: PLACEMENT Discharge Diagnosis: Fall with right femoral fracture status post right bipolar hemiarthroplasty, COPD exacerbation on oxygen, paroxysmal atrial fibrillation not for any long anticoagulation, TIA Condition on Discharge: Fair Activity: Per Instructions section Weightbearing: Right weightbearing Weightbearing Comment: As tolerated with walker or crutches Non-emergency contact: Primary Care Provider and Surgeon Call non-emergency contact if: you have any medication questions Follow-up/Referrals: Derrell Schmidt MD [Primary Care Provider] - (Please make an appointment within 7 days with the PCP following discharge from the skilled care facility) Diet: Carb Consistent or DM2 and Heart Healthy Addtl Attending Provider Instructions: Try to use less narcotics for pain control Continue oxygen as before Avoid any stimulants of bronchospasm as discussed Precaution to avoid falls and continue PT and OT Addtl Landscape Crew Leader Provider Instructions: ACTIVITY RECOMMENDATIONS: SELF CARE INSTRUCTIONS AFTER TOTAL HIP REPLACEMENT Until the incision and soft tissues around your hip have healed, there is a possibility that the hip prosthesis could dislocate. A. Observe the following precautions to prevent dislocation: 1. Don't bend your hip greater than 90 degrees. 2. Avoid crossing your legs or ankles while standing or lying. 3. Sit with your feet placed 6 inches apart. 4. When sitting, keep your knees below your hips. Sit on a firm surface, avoid deep, soft chairs and couches. Use an elevated toilet seat in the bathroom. 5. Don't bend over at the waist. Use a long handled shoehorn and a sock aid to help you put on your shoes and socks. A plastic welding machine operator can help you picker tender objects that are too high or too low to reach. 6. Keep car riding to a minimum for at least one month after surgery. B. Your balance may be shaky for a while. Use crutches or a walker until directed by your doctor. C. Use hand rails when walking on stairs. D. Wear low heeled shoes with non-slip soles. E. Be sure that your floors are free of things that could trip you - throw rugs, electrical cords, small objects. Avoid wet and waxed floors, especially with crutches and canes. F. Try to walk several times a day with rest periods between. G. Continue with all the exercises taught to you in the hospital. Again, make walking a part of your daily routine. SPECIAL CARE INSTRUCTIONS: VERY IMPORTANT TO READ AND REVIEW A. You may still be at risk for phlebitis and blood clots. 1. Wear surgical stockings (DAVIN hose) for 2 weeks after surgery to improve circulation and reduce swelling. 2. TAKE BLOOD THINNING MEDICATION RECOMMENDED BY YOUR PHYSICIAN. YOU WILL NEED TO REMAIN ON THIS MEDICATION FOR UP TO 4 WEEKS. B. You must take antibiotics before having dental work, bladder, bowel and other surgery. Your doctor will provide you with a permanent card to carry describing precautions. C. Call [facility] if you have a fever, redness or swelling around the incision, cloudy drainage from incision, or sudden increase in pain in your hip, not relieved by your regular pain medication. D. Please call the office at if you have any concerns or questions about your operation or recovery. * YOU MAY SHOWER, NO TUB BATHS UNTIL CLEARED BY YOUR DOCTOR. * WEAR DAVIN HOSE 20 HOURS PER DAY FOR 2 WEEKS. * YOU SHOULD USE A WALKER OR CRUTCHES FOR 2-4 WEEKS. THIS WILL HELP PREVENT STRAIN ON YOUR HIP MUSCLE AND ALLOW IT TO HEAL PROPERLY. YOU MAY WEAN TO A CANE TOLERATED. * MOST PATIENTS WILL HAVE HOME NURSING FOR THERAPY. IF YOU DECIDE TO DO OUTPATIENT PHYSICAL THERAPY, PLEASE SCHEDULE THIS 3 TIMES PER WEEK. * Silverlon- This is a large adhesive bandage that contains silver ions. This helps your incision heal by fighting off bacteria and protecting it from the outside environment. You are permitted to shower with this dressing. This will remain on your incision for 7 days and then should be removed. Some visible blood or drainage through the dressing window is normal. If there is si gnificant drainage or leaking noted before the 7 days notify your doctor's office immediately. Once removed, keep incision clean and dry. If there is any drainage or redness noted, please call your surgeon. . FOLLOW UP VISIT: If appointment is not already scheduled: Please call [facility] to make a follow-up appointment for 2 weeks after your surgery at . Pending Studies at Discharge: No Stand-Alone Forms: [facility] Skilled Items Patient informed of condition?: Yes DNR: No Discharge Level of Care: Skilled Communicable Disease: No Discharge Prognosis: Stable Lines: None Urinary Catheter: No Medications and DC Order Prescriptions: Continued verapamil 120 mg Tablet Extended Release 120 mg PO DAILY RF: 0 levothyroxine 50 mcg Tablet 50 mcg PO DAILY RF: 0 pantoprazole 40 mg Tablet,Delayed Release (Dr/Ec) 40 mg PO DAILY RF: 0 lisinopril 10 mg Tablet 10 mg PO DAILY RF: 0 Trelegy Ellipta 100-62.5-25 mcg Blister With Device 1 inh INHALATION DAILY RF: 0 sertraline 100 mg Tablet 100 mg PO DAILY RF: 0 montelukast 10 mg Tablet 10 mg PO PM RF: 0 atorvastatin 40 mg tablet 40 mg PO QAM RF: 0 thiamine HCl (vitamin B1) 100 mg Tablet 100 mg PO QAM RF: 0 docusate sodium [Colace] 100 mg Capsule 100 mg PO BID RF: 0 gabapentin 300 mg capsule 300 mg PO HS RF: 0 folic acid 1 mg Tablet 1 mg PO QAM RF: 0 metformin 1,000 mg Tablet Extended Release 24hr 1,000 mg PO DAILY RF: 0 albuterol sulfate 2.5 mg /3 mL (0.083 %) Solution For Nebulization 2.5 mg INHALATION TID Qty: 0 RF: 0 ipratropium bromide 0.02 % solution 0.5 mg Inhalation TID Qty: 0 RF: 0 hydroxyzine HCl 50 mg Tablet 50 mg PO Q6 PRN (Reason: anxiety/agitation) RF: 0 albuterol sulfate 2.5 mg /3 mL (0.083 %) solution for nebulization 2.5 mg continuous nebulization Q4 PRN (Reason: Shortness Of Breath Or Wheezing) RF: 0 acetaminophen 325 mg Tablet 650 mg PO Q6 MDD 3g/24hr PRN (Reason: temp>101) RF: 0 acetaminophen 325 mg Tablet 650 mg PO Q6 MDD 3g/24hr PRN (Reason: pain scale 1-4) RF: 0 ipratropium bromide 0.02 % solution 0.5 mg continuous nebulization Q4 PRN (Reason: Shortness Of Breath Or Wheezing) RF: 0 prednisone 10 mg tablet 10 mg PO UD Qty: 42 RF: 0 nicotine [Nicoderm CQ] 21 mg/24 hr Patch 24 Hour 21 mg transdermal QAM 30 Days Qty: 30 RF: 0 enoxaparin 40 mg/0.4 mL Syringe 40 mg subcut QAM 30 Days Qty: 12 RF: 0 oxycodone 5 mg tablet 5 mg PO Q4H PRN (Reason: PAIN SCALE 5-10) 5 Days Qty: 20 RF: 0 Discontinued oxycodone 5 mg tablet 5 mg PO Q4H PRN (Reason: PAIN SCALE 5-10) RF: 0 Discharge Orders: Discharge Order (Routine); Ordered 02/23/19 Ordered By: Shalini Conroy/Other Patient Handouts: Arthroscopy Hip After Surgery Admission Data Admit Date/Time: 02/22/19 03:00 Attending Provider: Shalini Madsen Admit Provider: Chapincito Diamond Primary Care Provider: Derrell Schmidt Other Providers: Chapincito Diamond Jacob Barrera Other Interventions: Discharge Summary Assessment (RN) Last Done: 02/23/19 14:42 DC Date/Time DO NOT enter until pt leaves facility: 02/23/19 15:35
== END 2019-02-23 15:35 ==
LOC: ED 00:28 → 3N 00:28

== ENCOUNTER 2019-03-22 07:27 | Inpatient (IN) ==
[2019-03-22] MEDS ORDERED: fentaNYL citrate 100 MCG/2 ML VIAL ONE (07:34)
--- NOTE | 2019-03-22 07:45 | Emergency Department Note ---
History of Present Illness General Chief complaint: Hip Pain Time Seen by Provider: 03/22/19 07:34 History of Present Illness Maximum Pain Intensity: 9 This is a 69-year-old male that presents to the emergency department via ambulance with complaints of "right hip pain". Patient states that he underwent right hip surgery last month. Records show he underwent right bipolar hemiarthroplasty by Dr. Zelaya on 02/14/2019. This was secondary to a fracture. He was in rehabilitation and then was discharged home. He was doing well. This morning, he was attempting to lower himself onto the toilet while using the vanity as stabilization and notes that he missed to the vanity and fell striking the toilet. He notes pain in the right hip since that time. He had paramedics note that the right leg is shortened. Patient received 200 mcg of fentanyl in route. Patient notes that the pain is minimal at this time secondary to the pain medication. He denies striking the head or loss of consciousness. No numbness or tingling. Home Medications Home Medications Medication Instructions Recorded Confirmed Type atorvastatin 40 mg PO QAM 01/28/18 03/22/19 History docusate sodium [Colace] 100 mg PO DAILY 01/28/18 03/22/19 History gabapentin 300 mg PO HS 01/28/18 03/22/19 History metformin 1,000 mg PO DAILY 04/23/18 03/22/19 History albuterol sulfate 2.5 mg INHALATION TID #0 ml 04/30/18 03/22/19 Rx ipratropium bromide 0.5 mg INHALATION TID #0 ml 04/30/18 03/22/19 Rx Trelegy Ellipta 1 inh INHALATION DAILY 02/13/19 03/22/19 History levothyroxine 50 mcg PO DAILY 02/13/19 03/22/19 History lisinopril 10 mg PO DAILY 02/13/19 03/22/19 History montelukast 10 mg PO PM 02/13/19 03/22/19 History pantoprazole 40 mg PO DAILY 02/13/19 03/22/19 History sertraline 100 mg PO DAILY 02/13/19 03/22/19 History verapamil 120 mg PO DAILY 02/13/19 03/22/19 History acetaminophen 650 mg PO Q6 PRN MDD 3g/24hr 02/22/19 03/22/19 History hydroxyzine HCl 50 mg PO Q6 PRN 02/22/19 03/22/19 History Allergies Allergy/AdvReac Type Severity Reaction Status Date / Time turkey Allergy Unknown Verified 03/22/19 11:08 Past Med/Surg History Medical History Alcohol use BPH (benign prostatic hyperplasia) Chronic respiratory failure with hypoxia COPD (chronic obstructive pulmonary disease) Depression Diabetes mellitus, type II Dyslipidemia Esophageal stenosis "s/p dilation June 2016" GERD (gastroesophageal reflux disease) HTN (hypertension) Hypothyroidism Leg edema Mood disorder Paroxysmal atrial fibrillation Superficial thrombophlebitis "2009" TIA (transient ischemic attack) "1982" Surgical History History of cataract surgery S/P bronchoscopy Family History Other Diabetes Social History Preferred Language: Kyrgyz Communication Ability: Effective 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 Beliefs That Will Affect Care: None marital status: Single Current Living Situation: Personal Care Facility Current Living Situation Comment: [facility] Other Information That Helps Us Care for You: No Feels Safe at Home: Yes Safety Concerns: Feels Safe At This Time Smoking Status: Current every day smoker Tobacco Type: cigarettes ; Cigarettes Per Day: 20 to 30 ; Second Hand Exposure: No ; Hx Alcohol Use: Yes Alcohol type: beer Alcohol Intake Frequency Comment: 2 beers a day Hx Substance Use: No Review of Systems A total of 10 systems reviewed and were otherwise negative Physical Exam Vital Signs Vital Signs - 24 hr 03/22/19 07:35 03/22/19 07:41 03/22/19 07:43 Temperature 36.5 C Temperature Source Oral Pulse Rate 68 67 65 Pulse Rate [Apical] Pulse Rate from SpO2 Sensor 68 67 Pulse Rhythm Regular Regular Pulse Rhythm [Apical] Pulse Strength Normal Respiratory Rate 22 17 16 Respiratory Effort / Characteristics Non-Labored Spontaneous Respiratory Depth Normal Respiratory Pattern Regular Blood Pressure 118/66 Blood Pressure [Left Arm] Blood Pressure Mean 81 Blood Pressure Mean [Left Arm] Blood Pressure Position Sitting Blood Pressure Position [Left Arm] Pulse Oximetry 100 100 99 Oxygen Delivery Method Nasal Cannula Nasal Cannula Oxygen Flow Rate 4 4 Sepsis Recent Fever Within 48 Hours No Sepsis New/Unexplained Change in Mental Status No Sepsis Action Taken by Nursing No Action Required End-Tidal CO2 End Tidal CO2 (18-54mmHg) 03/22/19 07:50 03/22/19 08:00 03/22/19 08:01 Temperature Temperature Source Pulse Rate 70 75 70 Pulse Rate [Apical] Pulse Rate from SpO2 Sensor 65 Pulse Rhythm Pulse Rhythm [Apical] Pulse Strength Respiratory Rate 23 12 17 Respiratory Effort / Characteristics Respiratory Depth Respiratory Pattern Blood Pressure 123/73 Blood Pressure [Left Arm] Blood Pressure Mean 93 Blood Pressure Mean [Left Arm] Blood Pressure Position Blood Pressure Position [Left Arm] Pulse Oximetry 100 Oxygen Delivery Method Oxygen Flow Rate Sepsis Recent Fever Within 48 Hours Sepsis New/Unexplained Change in Mental Status Sepsis Action Taken by Nursing End-Tidal CO2 End Tidal CO2 (18-54mmHg) 03/22/19 08:13 03/22/19 08:22 03/22/19 08:23 Temperature Temperature Source Pulse Rate 93 H 66 62 Pulse Rate [Apical] Pulse Rate from SpO2 Sensor 63 Pulse Rhythm Pulse Rhythm [Apical] Pulse Strength Respiratory Rate Respiratory Effort / Characteristics Respiratory Depth Respiratory Pattern Blood Pressure 123/61 Blood Pressure [Left Arm] Blood Pressure Mean 79 Blood Pressure Mean [Left Arm] Blood Pressure Position Blood Pressure Position [Left Arm] Pulse Oximetry 97 Oxygen Delivery Method Oxygen Flow Rate Sepsis Recent Fever Within 48 Hours Sepsis New/Unexplained Change in Mental Status Sepsis Action Taken by Nursing End-Tidal CO2 End Tidal CO2 (18-54mmHg) 03/22/19 08:30 03/22/19 08:35 03/22/19 08:40 Temperature Temperature Source Pulse Rate 63 62 60 Pulse Rate [Apical] Pulse Rate from SpO2 Sensor 63 62 60 Pulse Rhythm Pulse Rhythm [Apical] Pulse Strength Respiratory Rate Respiratory Effort / Characteristics Respiratory Depth Respiratory Pattern Blood Pressure 125/62 116/66 114/57 L Blood Pressure [Left Arm] Blood Pressure Mean 81 83 69 Blood Pressure Mean [Left Arm] Blood Pressure Position Blood Pressure Position [Left Arm] Pulse Oximetry 98 99 99 Oxygen Delivery Method Oxygen Flow Rate Sepsis Recent Fever Within 48 Hours Sepsis New/Unexplained Change in Mental Status Sepsis Action Taken by Nursing End-Tidal CO2 35 25 End Tidal CO2 (18-54mmHg) 03/22/19 08:45 03/22/19 08:50 03/22/19 08:52 Temperature Temperature Source Pulse Rate 59 L 61 56 L Pulse Rate [Apical] Pulse Rate from SpO2 Sensor 59 L 60 Pulse Rhythm Pulse Rhythm [Apical] Pulse Strength Respiratory Rate 24 Respiratory Effort / Characteristics Spontaneous Respiratory Depth Respiratory Pattern Blood Pressure 119/59 L 116/58 L Blood Pressure [Left Arm] 116/58 L Blood Pressure Mean 75 69 Blood Pressure Mean [Left Arm] Blood Pressure Position Blood Pressure Position [Left Arm] Pulse Oximetry 99 100 100 Oxygen Delivery Method Nasal Cannula Oxygen Flow Rate 6 Sepsis Recent Fever Within 48 Hours Sepsis New/Unexplained Change in Mental Status Sepsis Action Taken by Nursing End-Tidal CO2 27 23 End Tidal CO2 (18-54mmHg) 37 03/22/19 08:55 03/22/19 09:00 03/22/19 09:05 Temperature Temperature Source Pulse Rate 62 68 66 Pulse Rate [Apical] Pulse Rate from SpO2 Sensor 63 68 67 Pulse Rhythm Pulse Rhythm [Apical] Pulse Strength Respiratory Rate Respiratory Effort / Characteristics Respiratory Depth Respiratory Pattern Blood Pressure 132/64 110/71 103/54 L Blood Pressure [Left Arm] Blood Pressure Mean 80 96 56 Blood Pressure Mean [Left Arm] Blood Pressure Position Blood Pressure Position [Left Arm] Pulse Oximetry 100 99 96 Oxygen Delivery Method Oxygen Flow Rate Sepsis Recent Fever Within 48 Hours Sepsis New/Unexplained Change in Mental Status Sepsis Action Taken by Nursing End-Tidal CO2 22 25 28 End Tidal CO2 (18-54mmHg) 03/22/19 09:10 03/22/19 09:16 03/22/19 09:20 Temperature Temperature Source Pulse Rate 67 70 62 Pulse Rate [Apical] Pulse Rate from SpO2 Sensor 67 64 58 L Pulse Rhythm Pulse Rhythm [Apical] Pulse Strength Respiratory Rate Respiratory Effort / Characteristics Respiratory Depth Respiratory Pattern Blood Pressure 93/56 L 100/56 L 106/60 Blood Pressure [Left Arm] Blood Pressure Mean 68 82 78 Blood Pressure Mean [Left Arm] Blood Pressure Position Blood Pressure Position [Left Arm] Pulse Oximetry 100 100 100 Oxygen Delivery Method Oxygen Flow Rate Sepsis Recent Fever Within 48 Hours Sepsis New/Unexplained Change in Mental Status Sepsis Action Taken by Nursing End-Tidal CO2 16 29 22 End Tidal CO2 (18-54mmHg) 03/22/19 09:25 03/22/19 09:30 03/22/19 09:46 Temperature Temperature Source Pulse Rate 58 L 60 67 Pulse Rate [Apical] Pulse Rate from SpO2 Sensor 58 L 61 66 Pulse Rhythm Pulse Rhythm [Apical] Pulse Strength Respiratory Rate Respiratory Effort / Characteristics Respiratory Depth Respiratory Pattern Blood Pressure 114/83 120/57 L Blood Pressure [Left Arm] Blood Pressure Mean 89 72 Blood Pressure Mean [Left Arm] Blood Pressure Position Blood Pressure Position [Left Arm] Pulse Oximetry 100 100 100 Oxygen Delivery Method Oxygen Flow Rate Sepsis Recent Fever Within 48 Hours Sepsis New/Unexplained Change in Mental Status Sepsis Action Taken by Nursing End-Tidal CO2 28 28 End Tidal CO2 (18-54mmHg) 03/22/19 09:47 03/22/19 09:50 03/22/19 09:55 Temperature Temperature Source Pulse Rate 61 55 L 59 L Pulse Rate [Apical] Pulse Rate from SpO2 Sensor 61 55 L 58 L Pulse Rhythm Pulse Rhythm [Apical] Pulse Strength Respiratory Rate Respiratory Effort / Characteristics Respiratory Depth Respiratory Pattern Blood Pressure 115/56 L 112/60 111/59 L Blood Pressure [Left Arm] Blood Pressure Mean 74 80 81 Blood Pressure Mean [Left Arm] Blood Pressure Position Blood Pressure Position [Left Arm] Pulse Oximetry 98 98 98 Oxygen Delivery Method Oxygen Flow Rate Sepsis Recent Fever Within 48 Hours Sepsis New/Unexplained Change in Mental Status Sepsis Action Taken by Nursing End-Tidal CO2 End Tidal CO2 (18-54mmHg) 03/22/19 10:00 03/22/19 10:05 03/22/19 10:10 Temperature Temperature Source Pulse Rate 55 L 56 L 55 L Pulse Rate [Apical] Pulse Rate from SpO2 Sensor 55 L 57 L 55 L Pulse Rhythm Pulse Rhythm [Apical] Pulse Strength Respiratory Rate Respiratory Effort / Characteristics Respiratory Depth Respiratory Pattern Blood Pressure 115/61 108/57 L 108/57 L Blood Pressure [Left Arm] Blood Pressure Mean 73 75 76 Blood Pressure Mean [Left Arm] Blood Pressure Position Blood Pressure Position [Left Arm] Pulse Oximetry 98 98 98 Oxygen Delivery Method Oxygen Flow Rate 4 Sepsis Recent Fever Within 48 Hours Sepsis New/Unexplained Change in Mental Status Sepsis Action Taken by Nursing End-Tidal CO2 End Tidal CO2 (18-54mmHg) 03/22/19 10:15 03/22/19 10:20 03/22/19 10:25 Temperature Temperature Source Pulse Rate 62 58 L 57 L Pulse Rate [Apical] Pulse Rate from SpO2 Sensor 59 L 59 L 57 L Pulse Rhythm Pulse Rhythm [Apical] Pulse Strength Respiratory Rate Respiratory Effort / Characteristics Respiratory Depth Respiratory Pattern Blood Pressure 109/61 107/65 115/60 Blood Pressure [Left Arm] Blood Pressure Mean 79 81 78 Blood Pressure Mean [Left Arm] Blood Pressure Position Blood Pressure Position [Left Arm] Pulse Oximetry 98 98 98 Oxygen Delivery Method Oxygen Flow Rate 4 4 4 Sepsis Recent Fever Within 48 Hours Sepsis New/Unexplained Change in Mental Status Sepsis Action Taken by Nursing End-Tidal CO2 End Tidal CO2 (18-54mmHg) 03/22/19 10:30 03/22/19 10:35 03/22/19 10:40 Temperature Temperature Source Pulse Rate 57 L 65 61 Pulse Rate [Apical] Pulse Rate from SpO2 Sensor 57 L 64 61 Pulse Rhythm Pulse Rhythm [Apical] Pulse Strength Respiratory Rate Respiratory Effort / Characteristics Respiratory Depth Respiratory Pattern Blood Pressure 110/60 107/71 115/62 Blood Pressure [Left Arm] Blood Pressure Mean 83 87 78 Blood Pressure Mean [Left Arm] Blood Pressure Position Blood Pressure Position [Left Arm] Pulse Oximetry 97 98 99 Oxygen Delivery Method Oxygen Flow Rate 4 4 4 Sepsis Recent Fever Within 48 Hours Sepsis New/Unexplained Change in Mental Status Sepsis Action Taken by Nursing End-Tidal CO2 End Tidal CO2 (18-54mmHg) 03/22/19 10:45 03/22/19 10:50 03/22/19 10:56 Temperature Temperature Source Pulse Rate 66 63 70 Pulse Rate [Apical] Pulse Rate from SpO2 Sensor 68 63 69 Pulse Rhythm Pulse Rhythm [Apical] Pulse Strength Respiratory Rate Respiratory Effort / Characteristics Respiratory Depth Respiratory Pattern Blood Pressure 109/69 107/61 98/77 L Blood Pressure [Left Arm] Blood Pressure Mean 75 73 92 Blood Pressure Mean [Left Arm] Blood Pressure Position Blood Pressure Position [Left Arm] Pulse Oximetry 97 95 99 Oxygen Delivery Method Oxygen Flow Rate 4 4 4 Sepsis Recent Fever Within 48 Hours Sepsis New/Unexplained Change in Mental Status Sepsis Action Taken by Nursing End-Tidal CO2 End Tidal CO2 (18-54mmHg) 03/22/19 11:00 03/22/19 11:05 03/22/19 11:14 Temperature Temperature Source Pulse Rate 62 65 Pulse Rate [Apical] 64 Pulse Rate from SpO2 Sensor 62 62 Pulse Rhythm Pulse Rhythm [Apical] Regular Pulse Strength Respiratory Rate 15 Respiratory Effort / Characteristics Respiratory Depth Respiratory Pattern Blood Pressure 116/62 108/61 Blood Pressure [Left Arm] 110/61 Blood Pressure Mean 87 76 Blood Pressure Mean [Left Arm] 77 Blood Pressure Position Blood Pressure Position [Left Arm] Sitting Pulse Oximetry 97 98 97 Oxygen Delivery Method Nasal Cannula Oxygen Flow Rate 4 4 4 Sepsis Recent Fever Within 48 Hours Sepsis New/Unexplained Change in Mental Status Sepsis Action Taken by Nursing End-Tidal CO2 End Tidal CO2 (18-54mmHg) VITAL SIGNS - Vital signs and nursing notes were reviewed. Stable and afebrile. GENERAL -69-year-old male appearing his stated age who is in no acute distress. Communicates well with provider and answers questions appropriately. SKIN - Without rashes. No meningeal or petechial rash. The integument overlying the right hip is intact. There is obvious deformity to the right hip, noting of the right lower extremity is shortened and slightly externally rotated. HEAD - NC/AT. No alvarenga signs or raccoon's eyes. EYES - PERRL with EOMI bilaterally. Sclera anicteric. No hyphema. EARS - No deformities of external structures noted on gross examination bi laterally. NOSE - Midline and without cyanosis. No epistaxis or purulent drainage noted. MOUTH/OROPHARYNX - Without perioral cyanosis. NECK - Neck with FROM. No C-spine tenderness. LUNGS - Chest wall symmetric without accessory muscle use, intercostals retractions, or central cyanosis. Normal vesicular breath sounds CTA B/L. No wheezes, rales, or rhonchi appreciated. CARDIAC - RRR with S1/S2. No murmur, rubs, or gallops appreciated. MUSCULOSKELETAL: The right leg is shortened, and there is deformity to the right hip. Suspected dislocation. There is tenderness overlying the right greater trochanter region. EXTREMITIES - No clubbing or peripheral cyanosis. No pretibial edema present. +5/5 strength noted in UE/LE bilaterally. NEUROLOGIC - Cranial nerves II through XII grossly intact. Sensory intact to light touch throughout. PSYCH - A&O, and cooperates fully with examiner. Pt is very pleasant and interacts well with examiner. Course Administered Medications Albuterol (Duoneb) 3 ml NEB TID [facility] Stop: 04/21/19 13:59 Last Admin: 03/22/19 14:13 Dose: 3 ml Documented by: [id number] Discontinued Medications Fentanyl Citrate (Fentanyl Citrate) Confirm Administered Dose 200 mcg .ROUTE .STK-MED ONE Stop: 03/22/19 07:35 Last Admin: 03/22/19 08:36 Dose: Not Given Documented by: [id number] Fentanyl Citrate (Fentanyl Citrate) 50 mcg IV NOW [facility] Stop: 03/22/19 07:59 Last Admin: 03/22/19 08:10 Dose: 50 mcg Documented by: [id number] Oxycodone HCl (Roxicodone Immediate Rel) Confirm Administered Dose 5 mg .ROUTE .STK-MED ONE Stop: 03/22/19 12:44 Last Admin: 03/22/19 12:45 Dose: 5 mg Documented by: [id number] Propofol (Diprivan) Confirm Administered Dose 400 mg IV .STK-MED ONE Stop: 03/22/19 08:27 Last Admin: 03/22/19 09:36 Dose: 130 mg Documented by: [id number] Cosigned by: [id number] Medical Decision Making Laboratory Data Result diagrams: 03/22/19 07:49 03/22/19 07:49 Lab Results 03/22/19 03/22/19 03/22/19 Range/Units 07:49 07:49 07:49 WBC 9.13 (4.8-10.8) K/uL RBC 3.59 L (4.7-6.1) M/uL Hgb 11.7 L (14.0-18.0) g/dL Hct 35.2 L (42-52) % MCV 98.1 (80-100) fL MCH 32.6 (25-34) pg MCHC 33.2 (32-36) g/dL RDW Std Deviation 48.3 H (36.4-46.3) fL RDW Coeff of Daquan 13.5 (11.5-14.5) % Plt Count 222 (130-400) K/uL MPV 9.7 (7.4-10.4) fL Immature Gran % (Auto) 0.4 % Neut % (Auto) 63.0 % Lymph % (Auto) 22.7 % [place] % (Auto) 11.5 % Eos % (Auto) 2.0 % Baso % (Auto) 0.4 % Immature Gran # (Auto) 0.04 H (0.00-0.02) K/uL Neut # (Auto) 5.75 (1.4-6.5) K/uL Lymph # (Auto) 2.07 (1.2-3.4) K/uL [place] # (Auto) 1.05 H (0.11-0.59) K/uL Eos # (Auto) 0.18 (0-0.5) K/uL Baso # (Auto) 0.04 (0-0.2) K/uL APTT 22.1 (21.0-31.0) Seconds PTT Ratio 0.8 Sodium 139 (136-145) mmol/L Potassium 4.1 (3.5-5.1) mmol/L Chloride 103 (98-107) mmol/L Carbon Dioxide 33 H (21-32) mmol/L Anion Gap 3.0 (3-11) BUN 18 (7-18) mg/dl Creatinine 0.93 (0.6-1.4) mg/dl Est Cr Clr Drug Dosing 67.7 ml/min Est GFR ( Amer) 98.1 Est GFR (Non-Af Amer) 84.6 BUN/Creatinine Ratio 18.8 (10-20) Glucose 117 H (70-99) mg/dl Calcium 8.8 (8.5-10.1) mg/dl Total Bilirubin 0.2 (0.2-1) mg/dl AST 21 (15-37) U/L ALT 24 (12-78) U/L Alkaline Phosphatase 151 H (45-117) U/L Total Protein 6.2 L (6.4-8.2) gm/dl Albumin 2.9 L (3.4-5.0) gm/dl Globulin 3.3 (2.5-4.0) gm/dl Albumin/Globulin Ratio 0.9 (0.9-2) Imaging Data Radiologist's Impression: XR pelvis 1-2V routine CLINICAL HISTORY: Fall, R hip deformity COMPARISON: Right hip radiographs February 14, 2019. FINDINGS: Note is made of interval superior and lateral dislocation of the right hip arthroplasty with respect to the acetabulum. Femoral component remains within the acetabular cup. Irregularity with possible bone fragment of the right acetabulum is noted. IMPRESSION: Superior dislocation of the right hip arthroplasty from the acetabulum. The acetabular component is displaced from the acetabulum superiorly and laterally. Femoral component remains seated within the acetabular cup. Possible age-indeterminate acetabular fracture. ACT 112: Negative or not required by law. Electronically signed by: Cam Perez M.D. 03/22/2019 8:03 AM XR femur RT 2V routine CLINICAL HISTORY: Fall, R hip pain COMPARISON: Right hip radiographs February 14, 2019. FINDINGS: Note is made of posterior superior dislocation of the right hip arthroplasty with respect to the acetabulum. There is cortical irregularity of the acetabulum, likely involving the anterolateral acetabular wall. No acute fracture of the right femur is noted. There is no suspicious osseous lesion. IMPRESSION: 1. Posterior superior dislocation of the right hip arthroplasty with respect to the acetabulum. No acute fracture of the right femur. 2. Cortical irregularity involving the anterolateral right acetabular wall. This may reflect an age indeterminate fracture. ACT 112: Negative or not required by law. Electronically signed by: Cam Perez M.D. 03/22/2019 8:14 AM XR hip RT min 2V CLINICAL HISTORY: Reduction COMPARISON: Pelvis and right femur radiographs performed earlier today. FINDINGS: Alignment of the right hip arthroplasty is now anatomic post reduction. The acetabular component is well-seated within the acetabulum. No fracture is visualized on this exam. The tip of the femoral component was not imaged on this study. IMPRESSION: Anatomic alignment of the right hip arthroplasty post reduction. ACT 112: Negative or not required by law. Electronically signed by: Cam Perez M.D. 03/22/2019 9:[address] OF THE RIGHT HIP WITHOUT CONTRAST CLINICAL HISTORY: R hip dislocation, reduction. Hardware view COMPARISON STUDY: CT of the abdomen and pelvis April 23, 2018. Right hip, pelvis and right femur radiographs performed earlier today. TECHNIQUE: Axial images of the right hip were obtained without IV contrast. Sagittal and coronal reconstructions were viewed. Automated exposure control was utilized for the study. A dose lowering technique was utilized adhering to the principles of ALARA. FINDINGS: Evaluation of the right hip is suboptimal given streak artifact from the right hip arthroplasty. Alignment of the total right hip arthroplasty is anatomic following reduction. The acetabular component is located within the acetabulum. No proximal right femoral fracture is noted. There are numerous small radiodensities posterior to the proximal right femur. Note is made of a 2.1 x 0.3 cm bone fragment along the posterior acetabulum. This is age indeterminate. IMPRESSION: 1. Anatomic alignment of the total right hip arthroplasty following reduction. 2. Suboptimal evaluation given streak artifact from the hardware. 2.1 x 0.3 cm bone fragment along the posterior acetabulum. This finding is age indeterminate but probably subacute to chronic. Numerous additional small ossific/calcific densities posterior to the proximal right femur are not acute. ACT 112: Negative or not required by law. Electronically signed by: Cam Perez M.D. 03/22/2019 10:15 AM MDM Narrative Patient was seen and evaluated as above in room A3. Review was performed of nursing notes and vital signs. After obtaining a thorough history and physical examination the above work up was performed. He presents to us today status post fall with what appears to be a right hip dislocation. This is prosthetic. He had surgery just over 1 month ago. X-rays were obtained. There is dislocation. I spoke to the orthopedic surgeon who performed the surgery. This is Dr. Zelaya. He came to the department and the patient was sedated and this was reduced. Recommendations were posterior hip precautions, nonweightbearing with light toe-touch x2 weeks until follow-up in the office with Dr. Zelaya. Unfortunately, given the day of the week patient will likely require staying in the hospital overnight with then likely placement to rehab facility tomorrow. Patient was in agreement. Hospitalist was consulted. Please refer to further documentation regarding his stay. Case discussed with the attending physician. I attest that I have personally reviewed the patient medication list. GCS: 15 In the evaluation and treatment of this patient, the following differential diagnoses were considered: Hip Fracture, Hip Dislocation, Greater Trochanteric Bursitis, Musculoskeletal Pain, Lumbar Radiculopathy. Impression & Plan Dislocation of hip, right, closed Discharge Plan Visit Data *Final* Discharge Date/Time: 03/22/19 13:01 Chief Complaint: Hip Pain ED Provider: [facility] ED Midlevel Provider: Yuri Conteh Discharge Problem: Dislocation of hip, right, closed Patient Disposition: Admitted As Inpatient Condition: Good Discharge Instructions Interventions: ED Discharge Assessment Last Done: 03/22/19 13:01
[2019-03-22 07:55] LABS: Basophils # (auto) 0.04 K/uL (0-0.2); Basophils % (auto) 0.4 %; Eosinophils # (auto) 0.18 K/uL (0-0.5); Hematocrit (blood only) 35.2 % (42-52); Hemoglobin 11.7 g/dL (14.0-18.0); Immature Granulocytes # (auto) 0.04 K/uL (0.00-0.02); Immature Granulocytes % (auto) 0.4 %; Lymphocytes # (auto) 2.07 K/uL (1.2-3.4); Lymphocytes % (auto) 22.7 %; Mean Corpuscular Hemoglobin 32.6 pg (25-34); Mean Corpuscular Hgb Conc 33.2 g/dL (32-36); Mean Corpuscular Volume 98.1 fL (80-100); Mean Platelet Volume 9.7 fL (7.4-10.4); Monocytes # (auto) 1.05 K/uL (0.11-0.59); Monocytes % (auto) 11.5 %; Neutrophils # (auto) 5.75 K/uL (1.4-6.5); Platelet Count 222 K/uL (130-400); RDW Coefficient of Variation 13.5 % (11.5-14.5); RDW Standard Deviation 48.3 fL (36.4-46.3); Red Blood Count 3.59 M/uL (4.7-6.1); White Blood Count 9.13 K/uL (4.8-10.8)
[2019-03-22] MEDS ORDERED: fentaNYL citrate 100 MCG/2 ML VIAL IV STA (07:58)
--- NOTE | 2019-03-22 08:05 | XRay Report ---
XR pelvis 1-2V routine CLINICAL HISTORY: Fall, R hip deformity COMPARISON: Right hip radiographs February 14, 2019. FINDINGS: Note is made of interval superior and lateral dislocation of the right hip arthroplasty wi th respect to the acetabulum. Femoral component remains within the acetabular cup. Irregularity with possible bone fragment of the right acetabulum is noted. IMPRESSION: Superior dislocation of the right hip arthroplasty from the acetabulum. The acetabular co mponent is displaced from the acetabulum superiorly and laterally. Femoral component remains seated w ithin the acetabular cup. Possible age-indeterminate acetabular fracture. ACT 112: Negative or not required by law. Electronically signed by: Cam Perez M.D. 03/22/2019 8:03 AM
[2019-03-22 08:06] LABS: Partial Thromboplastin Ratio 0.8; Partial Thromboplastin Time 22.1 Seconds (21.0-31.0)
--- NOTE | 2019-03-22 08:11 | Emergency Department Note ---
ED Visit Note Physician Evaluation Note: I have personally evaluated and examined this patient. I agree with assessment and plan of Yuri Conteh PA-C. 69 yr old male with right hip pain s/p sitting down this morning. Right hip replaced last month without issues. He feels much better after pain meds. Xrays with dislocation entire right hip arthroplasty with age indeterminate acetabular fracture. Ortho in to reduce hip while I did procedural sedation (see note below). I will note patient high risk patient for sedation but given need for urgent reduction after discussion with ortho will go ahead with sedation in ED rather than waiting longer on bringing in anesthesia. Patient tolerated sedation well without incident. Hip reduced by ortho. Patient lives alone and is unable to ambulate following this. Hospitalist consulted for management. Procedural Sedation Indication: Right Hip reduction by Ortho. Last Ate: Last evening 8+ hours ago. Sip coffee 1 hour ago Previous issues with sedation: None Snore/Sleep Apnea: Yes and supposed to use CPAP, Chronic O2 Use Smoker: Yes Emergent: Yes ASA: 4, requires 4L NC, PAF Dentures: None Time Out: 8:52am Time Recovered: 9:12am Total time: 20 minutes Written consent was obtained after the risks and benefits were explained to the Patient, including, but not limited to aspiration, allergic reaction, breathing difficulties, cardiac complications, vomiting, pain, event recall, bleeding, and/or infection. Pre-sedation examination and paperwork completed. The pa tiemargret was on 100% oxygen via NRB prior to the procedure. Continuos end tidal CO2 monitoring, pulse oximetry, and cardiac monitoring were utilized. Suction, airway equipment, medications, respiratory equipment, and appropriate personnel were prepared prior to the initiation of the procedure. A time out was taken. Sedation was achieved utilizing 130 mg of Propofol. After I observed the patient had reached the appropriate level of sedation the main procedure was performed without complication. Sedation was discontinued and the monitoring continued. The patient recovered quickly from the effects of the medication without complication or adverse event. All Deng MD
[2019-03-22 08:13] LABS: Albumin Level 2.9 gm/dl (3.4-5.0); BUN Creatinine Ratio 18.8 (10-20); Calcium 8.8 mg/dl (8.5-10.1); Creatinine Clr Calc Pharmacy 67.7 ml/min; Est GFR (African American) 98.1; Est GFR (Non-African American) 84.6; Potassium 4.1 mmol/L (3.5-5.1)
--- NOTE | 2019-03-22 08:15 | XRay Report ---
XR femur RT 2V routine CLINICAL HISTORY: Fall, R hip pain COMPARISON: Right hip radiographs February 14, 2019. FINDINGS: Note is made of posterior superior dislocation of the right hip arthroplasty with respect to the acetabulum. There is cortical irregularity of the acetabulum, likely involving the anterolater al acetabular wall. No acute fracture of the right femur is noted. There is no suspicious osseous les ion. IMPRESSION: 1. Posterior superior dislocation of the right hip arthroplasty with respect to the acetabulum. No ac jose fracture of the right femur. 2. Cortical irregularity involving the anterolateral right acetabular wall. This may reflect an age i ndeterminate fracture. ACT 112: Negative or not required by law. Electronically signed by: Cam Perez M.D. 03/22/2019 8:14 AM
[2019-03-22 08:16] LABS: Albumin Globulin Ratio 0.9 (0.9-2); Bilirubin,Total 0.2 mg/dl (0.2-1); Globulin 3.3 gm/dl (2.5-4.0); Total Protein 6.2 gm/dl (6.4-8.2)
[2019-03-22] MEDS ORDERED: PROPOFOL IV EMULSION 10 MG/ML 20 ML VIAL IV ONE (08:26)
--- NOTE | 2019-03-22 08:28 | Emergency Department Note ---
Pre Sedation Assessment Vital Signs Temp Pulse Resp BP Pulse Ox 03/22/19 07:43 65 16 99 03/22/19 07:35 36.5 C 67 18 118/66 99 Pre-Sedation Airway Assessment Smoking Status: Current every day smoker Notes The planned sedation has been discussed with the patient. Informed Consent was obtained. I have identified the patient, determined the appropriateness of sedation and have assessed the patient immediately prior to the procedure. All medicine(s) and interventions are by my order.
--- NOTE | 2019-03-22 09:13 | Emergency Department Note ---
Post Sedation Assessment Vital Signs Temp Pulse Resp BP Pulse Ox 03/22/19 08:30 63 125/62 98 03/22/19 08:23 62 123/61 97 03/22/19 08:22 66 03/22/19 08:13 93 H 03/22/19 08:01 70 17 123/73 03/22/19 08:00 75 12 03/22/19 07:50 70 23 100 03/22/19 07:43 65 16 99 03/22/19 07:41 67 17 100 03/22/19 07:35 36.5 C 68 22 118/66 100 Post Sedation Plan On clinical assessment, the patient appears to have tolerated the sedation without complications. Patient is recovering as anticipated. Patient will continue to be monitored by nursing and may be discharged when sedation discharge criteria are met per below protocol. Upon Completions of procedure up to 15 minutes continue every 5 minute vital signs and the P.A.R. score; then discharge to a Phase I or Fast Track to Phase II per the following guidelines: * Discharge Patient to appropriate Phase II area if PAR is 8 or greater or return to pre- procedure baseline. The post - procedure orders will be as directed. * If PAR score is less than 8 or not return to pre-procedure baseline then patient will follow Phase I monitoring till PAR is reached for Phase II. The Phase I may be done in procedure room or may call to secure a Phase I area. * If naloxone or flumazenil are used for reversal, hold in Phase I for continued monitoring from when last reversal dose was given for a minimum of 60 minutes or longer pending the nurse and/or physician discretion of patient condition before discharge to Phase II. Please call the Sedation Physician to re-evaluate and complete post-note for discharge to Phase II area. Do NOT discharge from procedure sedation or Phase 1 until post- sedation evaluation note is complete by procedure /sedation MD Sedation Discharge Instructions to be given to the patient at discharge to home.
--- NOTE | 2019-03-22 09:19 | XRay Report ---
XR hip RT min 2V CLINICAL HISTORY: Reduction COMPARISON: Pelvis and right femur radiographs performed earlier today. FINDINGS: Alignment of the right hip arthroplasty is now anatomic post reduction. The acetabular com ponent is well-seated within the acetabulum. No fracture is visualized on this exam. The tip of the f emoral component was not imaged on this study. IMPRESSION: Anatomic alignment of the right hip arthroplasty post reduction. ACT 112: Negative or not required by law. Electronically signed by: Cam Perez M.D. 03/22/2019 9:18 AM
--- NOTE | 2019-03-22 09:58 | Orthopedic Consultation ---
Date of Consultation March 22, 2019 Assessment & Plan (1) Dislocation of hip prosthesis: I have indicated the patient for closed reduction of right hip hemiarthroplasty. The risks, benefits, complications and alternatives of the procedure were explained to the patient detail which include however not limited to injury to surrounding nerves, bone, vessels, soft tissue, chronic pain, arthrofibrosis, malunion nonunion of the acetabular fracture, recurrent instability and dislocation, leg length discrepancy, need for surgery/procedures, loss of limb and loss of life. Alternatives include no reduction which would result in worsening clinical picture and inability to ambulate, patient wished to proceed with closed reduction at this time and informed consent was obtained. Patient tolerated the procedure well and postreduction x-rays confirmed concentric reduction of the acetabulum with no obvious intra-articular bone fragments from acetabular fracture. Post reduction physical exam right lower extremity is neurovascularly and sensory intact grossly, leg lengths equal, hip was stable through full range of motion. We will obtain CT to confirm no intra-articular acetabular fracture fragment. Patient is to maintain toe-touch nonweightbearing right lower extremity, knee immobilizer to right lower extremity at all times. We would like to see the patient back in 1 to 2 weeks follow-up in the office, will need to call for appointment with Dr. Zelaya at [phone]. Thank you for the consultation. History of Present Illness Reason for Consultation: Fracture dislocation of right hip hemiarthroplasty History of Present Illness The patient is a 69-year-old male with significant past surgical history for recent right hip hemiarthroplasty performed on February 14, 2019. Patient was doing well postoperatively. This morning while the patient was using the bathroom he sustained a mechanical fall onto his right side subsequent pain and inability to ambulate and was seen at the [facility] emergency department. X-rays in the emergency department confirmed fracture dislocation of right hip hemiarthroplasty with small posterior wall fracture. Patient denies any associated injuries. Denies hitting his head or loss of consciousness. Denies any numbness and tingling to right lower extremity. Allergies Allergy/AdvReac Type Severity Reaction Status Date / Time turkey Allergy Unknown Verified 02/22/19 02:08 Home Medications Home Medications Medication Instructions Recorded Confirmed Type atorvastatin 40 mg PO QAM 01/28/18 02/22/19 History docusate sodium [Colace] 100 mg PO BID 01/28/18 02/22/19 History folic acid 1 mg PO QAM 01/28/18 02/22/19 History gabapentin 300 mg PO HS 01/28/18 02/22/19 History thiamine HCl (vitamin B1) 100 mg PO QAM 01/28/18 02/22/19 History metformin 1,000 mg PO DAILY 04/23/18 02/22/19 History albuterol sulfate 2.5 mg INHALATION TID #0 ml 04/30/18 02/22/19 Rx ipratropium bromide 0.5 mg INHALATION TID #0 ml 04/30/18 02/22/19 Rx Trelegy Ellipta 1 inh INHALATION DAILY 02/13/19 02/22/19 History levothyroxine 50 mcg PO DAILY 02/13/19 02/22/19 History lisinopril 10 mg PO DAILY 02/13/19 02/22/19 History montelukast 10 mg PO PM 02/13/19 02/22/19 History pantoprazole 40 mg PO DAILY 02/13/19 02/22/19 History sertraline 100 mg PO DAILY 02/13/19 02/22/19 History verapamil 120 mg PO DAILY 02/13/19 02/22/19 History acetaminophen 650 mg PO Q6 PRN MDD 3g/24hr 02/22/19 02/22/19 History acetaminophen 650 mg PO Q6 PRN MDD 3g/24hr 02/22/19 02/22/19 History albuterol sulfate 2.5 mg CONTINUOUS NEBULIZATION Q4 02/22/19 02/22/19 History PRN hydroxyzine HCl 50 mg PO Q6 PRN 02/22/19 02/22/19 History ipratropium bromide 0.5 mg CONTINUOUS NEBULIZATION Q4 02/22/19 02/22/19 History PRN enoxaparin 40 mg SUBCUT QAM 30 Days #12 ml 02/23/19 Rx nicotine [Nicoderm CQ] 21 mg TRANSDERMAL QAM 30 Days #30 02/23/19 Rx ea oxycodone 5 mg PO Q4H PRN 5 Days #20 tab 02/23/19 Rx prednisone 10 mg PO UD #42 tab 02/23/19 Rx Patient History Medical History Alcohol use BPH (benign prostatic hyperplasia) Chronic respiratory failure COPD (chronic obstructive pulmonary disease) Depression Diabetes mellitus, type II Dyslipidemia Esophageal stenosis "s/p dilation June 2016" GERD (gastroesophageal reflux disease) HTN (hypertension) Hypothyroidism Leg edema Paroxysmal atrial fibrillation Superficial thrombophlebitis "2009" TIA (transient ischemic attack) "1982" Surgical History History of cataract surgery S/P bronchoscopy Family History Other Diabetes Social History Preferred Language: French Communication Ability: Effective Marriage And Family Counselor Required: No Beliefs That Will Affect Care: None marital status: Single Current Living Situation: Alone Feels Safe at Home: Yes Smoking Status: Current every day smoker Tobacco Type: cigarettes ; Cigarettes Per Day: 20 to 30 ; Second Hand Exposure: No ; Hx Alcohol Use: Yes Alcohol type: beer Alcohol Intake Frequency Comment: 2 beers a day Hx Substance Use: No Review of Systems Review of Systems: All systems reviewed & are unremarkable except as noted in HPI & below Constitutional: as per Subjective / HPI Physical Exam Physical Exam: RLE NVSI +EHL/FHL/TA/GS SILT grossly, +2 DP pulse, compartments soft NT, right lower extremity was shortened internally rotated Constitutional: WD/WN, vitals as above Results & Data ([facility]) Vital Signs (Past 12 Hours) Vital Signs Temp Pulse Resp BP BP Pulse Ox 03/22/19 09:47 61 115/56 L 98 03/22/19 09:46 67 100 03/22/19 09:30 60 120/57 L 100 03/22/19 09:25 58 L 114/83 100 03/22/19 09:20 62 106/60 100 03/22/19 09:16 70 100/56 L 100 03/22/19 09:10 67 93/56 L 100 03/22/19 09:05 66 103/54 L 96 03/22/19 09:00 68 110/71 99 03/22/19 08:55 62 132/64 100 03/22/19 08:52 56 L 24 116/58 L 100 03/22/19 08:50 61 116/58 L 100 03/22/19 08:45 59 L 119/59 L 99 03/22/19 08:40 60 114/57 L 99 03/22/19 08:35 62 116/66 99 03/22/19 08:30 63 125/62 98 03/22/19 08:23 62 123/61 97 03/22/19 08:22 66 03/22/19 08:13 93 H 03/22/19 08:01 70 17 123/73 03/22/19 08:00 75 12 03/22/19 07:50 70 23 100 03/22/19 07:43 65 16 99 03/22/19 07:41 67 17 100 03/22/19 07:35 36.5 C 68 22 118/66 100 Diagnostic Findings XR pelvis 1-2V routine CLINICAL HISTORY: Fall, R hip deformity COMPARISON: Right hip radiographs February 14, 2019. FINDINGS: Note is made of interval superior and lateral dislocation of the right hip arthroplasty with respect to the acetabulum. Femoral component remains within the acetabular cup. Irregularity with possible bone fragment of the right acetabulum is noted. IMPRESSION: Superior dislocation of the right hip arthroplasty from the acetabulum. The acetabular component is displaced from the acetabulum superiorly and laterally. Femoral component remains seated within the acetabular cup. Possible age-indeterminate acetabular fracture. XR femur RT 2V routine CLINICAL HISTORY: Fall, R hip pain COMPARISON: Right hip radiographs February 14, 2019. FINDINGS: Note is made of posterior superior dislocation of the right hip arthroplasty with respect to the acetabulum. There is cortical irregularity of the acetabulum, likely involving the anterolateral acetabular wall. No acute fracture of the right femur is noted. There is no suspicious osseous lesion. IMPRESSION: 1. Posterior superior dislocation of the right hip arthroplasty with respect to the acetabulum. No acute fracture of the right femur. 2. Cortical irregularity involving the anterolateral right acetabular wall. This may reflect an age indeterminate fracture.
--- NOTE | 2019-03-22 09:58 | Procedure Note ---
Procedure Note Date of Service March 22, 2019 The patient was seen in emergency department room A1. After the patient received adequate anesthesia leg lengths were assessed and the right lower extremity was found to be short and internally rotated. A timeout was performed, extremity verified. Prereduction x-rays demonstrated a posterior superior fracture dislocation of the right hip hemiarthroplasty. Small displaced posterior wall fracture. A gentle reduction maneuver was performed with traction, flexion, adduction of the hip and a combination of internal and external rotation was applied to the right leg. A appreciable clunk was felt and leg lengths were assessed once more and found to be equal. X-ray was brought in once more and images were taken confirming reduction of the right hip hemiarthroplasty. The patient tolerated the procedure well and knee immobilizer was applied to the right lower extremity. Post reduction physical exam right lower extremity neurovascular sensory intact +2 dorsalis pedis pulse, compartment soft nontender, leg lengths equal. Coding
--- NOTE | 2019-03-22 10:16 | CT Scan Report ---
CT OF THE RIGHT HIP WITHOUT CONTRAST CLINICAL HISTORY: R hip dislocation, reduction. Hardware view COMPARISON STUDY: CT of the abdomen and pelvis April 23, 2018. Right hip, pelvis and right femur rad iographs performed earlier today. TECHNIQUE: Axial images of the right hip were obtained without IV contrast. Sagittal and coronal jose nstructions were viewed. Automated exposure control was utilized for the study. A dose lowering tech nique was utilized adhering to the principles of ALARA. FINDINGS: Evaluation of the right hip is suboptimal given streak artifact from the right hip arthropl asty. Alignment of the total right hip arthroplasty is anatomic following reduction. The acetabular c omponent is located within the acetabulum. No proximal right femoral fracture is noted. There are num erous small radiodensities posterior to the proximal right femur. Note is made of a 2.1 x 0.3 cm bone fragment along the posterior acetabulum. This is age indeterminate. IMPRESSION: 1. Anatomic alignment of the total right hip arthroplasty following reduction. 2. Suboptimal evaluation given streak artifact from the hardware. 2.1 x 0.3 cm bone fragment along th e posterior acetabulum. This finding is age indeterminate but probably subacute to chronic. Numerous additional small ossific/calcific densities posterior to the proximal right femur are not acute. ACT 112: Negative or not required by law. Electronically signed by: Cam Perez M.D. 03/22/2019 10:15 AM
--- NOTE | 2019-03-22 11:00 | History & Physical Report ---
Date of Service March 22, 2019 Assessment & Plan (1) Dislocation of hip prosthesis: (2) Ambulatory dysfunction: This is a 69yo M with a PMH of COPD with chronic respiratory failure on 4L NC O2, DM II, HTN, tobacco use disorder, paroxysmal A Fib, recent right hip fracture s/p hemiarthroplasty on 02/14/[address] Zelaya who had a mechanical fall this morning and was found to have a dislocation of the right hip arthroplasty. -Mechanical fall this morning, found to have dislocation of the right hip arthroplasty on XR, s/p reduction by Dr. Gaffney -Per ortho, patient is to maintain toe-touch nonweightbearing right lower extremity, knee immobilizer to right lower extremity at all times -Will need to follow up with at [facility] clinic in 1-2 weeks - call for appointment with Dr. Zelaya at [phone] -Pain control, PT, OT, discharge planning for rehab (3) COPD (chronic obstructive pulmonary disease): (4) Chronic respiratory failure with hypoxia: Oxygen saturation at baseline with 98% on 4 L nasal cannula -Continue home nebulizer as needed, Atrovent and Trelegy Ellipta (5) Diabetes mellitus, type II: A1c of 5.8 in Oct 2018. Repeat a1c -Hold home agents -SSI while in-patient -BSG AC HS (6) HTN (hypertension): Normotensive. Continue lisinopril (7) Paroxysmal atrial fibrillation: Continue Verapamil (8) Hypothyroidism: Continue levothyroxine (9) Mood disorder: Continue sertraline, hydroxyzine PRN (10) Tobacco use: Smokes 1 PPD. Not interested in cessation or nicotine patch (11) Alcohol use: H/o heavy alcohol use. Currently endorsing 2-3 beers daily. At risk alcohol precautions ordered DVT Ppx: SQ lovenox Code status: FULL PCP: Roxana Dispo: Admitted to med/surg. Discharge planning ordered. Patient seen in collaboration with Dr. Hunter. Please see addendum. History of Present Illness Chief Complaint: R hip pain Primary Care Provider: Derrell Schmidt MD This is a 69yo M with a PMH of COPD with chronic respiratory failure on 4L NC O2, DM II, HTN, tobacco use disorder, paroxysmal A Fib, recent right hip fracture s/p hemiarthroplasty on 02/14/[address] Zelaya who had a mechanical fall this morning. Earlier today, patient was ambulating in bathroom using walker when he lost his balance and fell on hip. Was able to reach to reach his phone and call EMS. XR in ED revealed posterior superior dislocation of the right hip arthroplasty with respect to the acetabulum. No acute fracture of the right femur. Denies any head trauma or LOC with fall. No numbness and tingling to right lower extremity. Was evaluated by Dr. Gaffney with successful reduction maneuver performed. Patient now with RLE in knee immobilizer. Denies any fever, chills, lightheadedness, visual changes, chest pain, palpitations, SOB, nausea, vomiting, abdominal pain, dysuria, diarrhea or constipation. Allergies Allergy/AdvReac Type Severity Reaction Status Date / Time turkey Allergy Unknown Verified 03/22/19 11:08 Home Medications Home Medications Medication Instructions Recorded Confirmed Type atorvastatin 40 mg PO QAM 01/28/18 03/22/19 History docusate sodium [Colace] 100 mg PO DAILY 01/28/18 03/22/19 History gabapentin 300 mg PO HS 01/28/18 03/22/19 History metformin 1,000 mg PO DAILY 04/23/18 03/22/19 History albuterol sulfate 2.5 mg INHALATION TID #0 ml 04/30/18 03/22/19 Rx ipratropium bromide 0.5 mg INHALATION TID #0 ml 04/30/18 03/22/19 Rx Trelegy Ellipta 1 inh INHALATION DAILY 02/13/19 03/22/19 History levothyroxine 50 mcg PO DAILY 02/13/19 03/22/19 History lisinopril 10 mg PO DAILY 02/13/19 03/22/19 History montelukast 10 mg PO PM 02/13/19 03/22/19 History pantoprazole 40 mg PO DAILY 02/13/19 03/22/19 History sertraline 100 mg PO DAILY 02/13/19 03/22/19 History verapamil 120 mg PO DAILY 02/13/19 03/22/19 History acetaminophen 650 mg PO Q6 PRN MDD 3g/24hr 02/22/19 03/22/19 History hydroxyzine HCl 50 mg PO Q6 PRN 02/22/19 03/22/19 History Past Med/Surg History Medical History Alcohol use BPH (benign prostatic hyperplasia) Chronic respiratory failure with hypoxia COPD (chronic obstructive pulmonary disease) Depression Diabetes mellitus, type II Dyslipidemia Esophageal stenosis "s/p dilation June 2016" GERD (gastroesophageal reflux disease) HTN (hypertension) Hypothyroidism Leg edema Mood disorder Paroxysmal atrial fibrillation Superficial thrombophlebitis "2009" TIA (transient ischemic attack) "1982" Surgical History History of cataract surgery S/P bronchoscopy Family History Other Diabetes Social History Preferred Language: Sami Communication Ability: Effective Correctional Officer Required: No Beliefs That Will Affect Care: None marital status: Single Current Living Situation: Personal Care Facility Current Living Situation Comment: [facility] Other Information That Helps Us Care for You: No Feels Safe at Home: Yes Safety Concerns: Feels Safe At This Time Smoking Status: Current every day smoker Tobacco Type: cigarettes ; Cigarettes Per Day: 20 to 30 ; Second Hand Exposure: No ; Hx Alcohol Use: Yes Alcohol type: beer Alcohol Intake Frequency Comment: 2 beers a day Hx Substance Use: No Review of Systems Review of Systems: At least ten systems reviewed and negative except as noted in the HPI. Physical Exam Physical Exam: Please see Dr. Hunter's addendum for physical exam Results & Data Vital Signs (Past 12 Hours) Vital Signs Temp Pulse Resp BP BP Pulse Ox 03/22/19 10:10 55 L 108/57 L 98 03/22/19 10:05 56 L 108/57 L 98 03/22/19 10:00 55 L 115/61 98 03/22/19 09:55 59 L 111/59 L 98 03/22/19 09:50 55 L 112/60 98 03/22/19 09:47 61 115/56 L 98 03/22/19 09:46 67 100 03/22/19 09:30 60 120/57 L 100 03/22/19 09:25 58 L 114/83 100 03/22/19 09:20 62 106/60 100 03/22/19 09:16 70 100/56 L 100 03/22/19 09:10 67 93/56 L 100 03/22/19 09:05 66 103/54 L 96 03/22/19 09:00 68 110/71 99 03/22/19 08:55 62 132/64 100 03/22/19 08:52 56 L 24 116/58 L 100 03/22/19 08:50 61 116/58 L 100 03/22/19 08:45 59 L 119/59 L 99 03/22/19 08:40 60 114/57 L 99 03/22/19 08:35 62 116/66 99 03/22/19 08:30 63 125/62 98 03/22/19 08:23 62 123/61 97 03/22/19 08:22 66 03/22/19 08:13 93 H 03/22/19 08:01 70 17 123/73 03/22/19 08:00 75 12 03/22/19 07:50 70 23 100 03/22/19 07:43 65 16 99 03/22/19 07:41 67 17 100 03/22/19 07:35 36.5 C 68 22 118/66 100 Laboratory Results Short CBC 03/22/19 Range/Units 07:49 WBC 9.13 (4.8-10.8) K/uL Hgb 11.7 L (14.0-18.0) g/dL Hct 35.2 L (42-52) % Plt Count 222 (130-400) K/uL BMP 03/22/19 07:49 Sodium 139 Potassium 4.1 Chloride 103 Carbon Dioxide 33 H BUN 18 Creatinine 0.93 Glucose 117 H Calcium 8.8 Liver Function 03/22/19 Range/Units 07:49 Total Bilirubin 0.2 (0.2-1) mg/dl AST 21 (15-37) U/L ALT 24 (12-78) U/L Alkaline Phosphatase 151 H (45-117) U/L Albumin 2.9 L (3.4-5.0) gm/dl Diagnostic Findings Pelvis XR: IMPRESSION: Superior dislocation of the right hip arthroplasty from the acetabulum. The acetabular component is displaced from the acetabulum superiorly and laterally. Femoral component remains seated within the acetabular cup. Possible age-indeterminate acetabular fracture. R Femur XR: IMPRESSION: 1. Posterior superior dislocation of the right hip arthroplasty with respect to the acetabulum. No acute fracture of the right femur. 2. Cortical irregularity involving the anterolateral right acetabular wall. This may reflect an age indeterminate fracture. Hip CT: IMPRESSION: 1. Anatomic alignment of the total right hip arthroplasty following reduction. 2. Suboptimal evaluation given streak artifact from the hardware. 2.1 x 0.3 cm bone fragment along the posterior acetabulum. This finding is age indeterminate but probably subacute to chronic. Numerous additional small ossific/calcific densities posterior to the proximal right femur are not acute. Hip XR: IMPRESSION: Anatomic alignment of the right hip arthroplasty post reduction. Supervising Physician Co-Signing Physician Notes This is a 69-year-old male who lives alone at home and came to the ER after a mechanical fall. He recently had right hip replacement due to fracture and that too was after a mechanical fall. In the ER today he was found to have dislocation of the replaced hip which was reduced in the ER by orthopedic surgery. He was advised to be only toe-touch weightbearing on the right hip. Given that and the fact that he lives alone, admission to medicine was req uested. He will likely need to be placed in a rehab and he will need to follow- up with orthopedic surgery and 2 weeks. We will provide pain control and order PT/OT. Physical exam: General: Alert and oriented x 3. NAD HENT: Normocephalic, atraumatic, pupils round and equally reactive to light, oral mucosa: moist Neck: Supple, no lymph nodes palpated, no thyromegaly CVS: Normal S1, S2. No murmur, rub or gallop. PMI non displaced. Peripheral pulses normal. Resp: Normal percussion. Normal breath sounds bilaterally. No wheezing or rales heard Abdomen: Soft, non tender, no hepatosplenomegaly. Bowel sounds positive Extremities: No pitting edema Neuro: Power 5/5 throughout except right leg which was not tested because of recent reduction he was able to wiggle toes, grossly normal sensations, DTR's normal Psychiatry: Normal mood, normal thought process
[2019-03-22] MEDS ORDERED: OXYCODONE HCL IR 5 MG TAB (IMMEDIATE RELEASE) ONE (12:43)
[2019-03-22] MEDS ORDERED: CARBOHYDRATES FOR HYPOGLYCEMIA PO PRN (13:16)
[2019-03-22] MEDS ORDERED: DEXTROSE 50% 50 ML SYRINGE IV PRN (13:16)
[2019-03-22] MEDS ORDERED: GLUCOSE 10 TABS/TUBE PO PRN (13:16)
[2019-03-22] MEDS ORDERED: GLUCOSE 40% GEL 15 GM TUBE PO PRN (13:16)
[2019-03-22] MEDS ORDERED: GLUCAGON FOR INJ 1 MG VIAL SQ PRN (13:16)
[2019-03-22] MEDS ORDERED: POLYETHYLENE (MIRALAX) 17 GM PACK PO PRN (13:16)
[2019-03-22] MEDS ORDERED: LORazepam 1 MG TAB PO PRN (13:52)
[2019-03-22] MEDS ORDERED: IPRATROPIUM BROMIDE NEB SOLN 0.02% 2.5 ML VIAL INH SCH (14:00)
[2019-03-22] MEDS ORDERED: ALBUTEROL 0.083% NEBU SOLN 3 ML VIAL INH SCH (14:00)
[2019-03-22] MEDS: ALBUT/IPRATROP 3MG/0.5MG NEB 3 ML VIAL NEB SCH ×2 (14:13→19:35)
[2019-03-22] MEDS: ENOXAPARIN INJ 40 MG/0.4 ML SYR SQ SCH (14:45)
[2019-03-22] MEDS: ACETAMINOPHEN 325 MG TAB PO PRN ×2 (16:34→23:10)
[2019-03-22] MEDS: OXYCODONE HCL IR 5 MG TAB (IMMEDIATE RELEASE) PO PRN ×2 (16:34→23:19)
[2019-03-22] MEDS: INSULIN ASPART 100 UNITS/ML 3 ML PEN SC SCH ×2 (18:20→21:39)
[2019-03-22] MEDS ORDERED: XOPENEX/ATROVENT 1.25mg/0.5MG NEB COMBO NEB PRN (19:50)
[2019-03-22] MEDS: GABAPENTIN 300 MG CAP PO SCH (21:27)
[2019-03-22] MEDS: MONTELUKAST SODIUM 10 MG TABLET PO SCH (21:27)
[2019-03-23] MEDS: LEVALBUTEROL 1.25MG/0.5ML NEB INH PRN ×2 (04:52→15:37)
[2019-03-23] MEDS: IPRATROPIUM BROMIDE NEB SOLN 0.02% 2.5 ML VIAL INH PRN ×2 (04:53→15:37)
[2019-03-23 05:12] LABS: Hematocrit (blood only) 34.2 % (42-52); Hemoglobin 11.1 g/dL (14.0-18.0); Mean Corpuscular Hemoglobin 32.6 pg (25-34); Mean Corpuscular Hgb Conc 32.5 g/dL (32-36); Mean Corpuscular Volume 100.6 fL (80-100); Mean Platelet Volume 10.3 fL (7.4-10.4); Platelet Count 200 K/uL (130-400); RDW Coefficient of Variation 13.6 % (11.5-14.5); RDW Standard Deviation 50.2 fL (36.4-46.3); White Blood Count 10.36 K/uL (4.8-10.8)
[2019-03-23] MEDS: LEVOTHYROXINE SODIUM 50 MCG TABLET PO SCH (05:21)
[2019-03-23] MEDS: ACETAMINOPHEN 325 MG TAB PO PRN ×3 (05:27→23:13)
[2019-03-23 05:40] LABS: BUN Creatinine Ratio 20.4 (10-20); Calcium 8.6 mg/dl (8.5-10.1); Creatinine Clr Calc Pharmacy 58.8 ml/min; Est GFR (African American) 82.8; Est GFR (Non-African American) 71.5; Potassium 4.4 mmol/L (3.5-5.1)
[2019-03-23] MEDS: OXYCODONE HCL IR 5 MG TAB (IMMEDIATE RELEASE) PO PRN ×3 (06:49→23:31)
--- NOTE | 2019-03-23 07:07 | Orthopedic Progress Note ---
Date of Service March 23, 2019 Assessment & Plan (1) Dislocation of hip prosthesis: Status post closed reduction of right hip hemiarthroplasty Strict posterior hip precaution Toe-touch nonweightbearing right lower extremity Knee immobilizer to right lower extremity, may remove for hygiene purposes. When in bed we would like knee immobilizer or abduction pillow in place PT/OT Upon discharge patient will need to follow-up in the office in 1 to [address] shelton, . Subjective Patient seen sitting up in bed, comfortable, denies complaints, pain well controlled, no acute issues overnight. Review of Systems Review of Systems: All systems reviewed & are unremarkable except as noted in HPI & below Constitutional: as per Subjective / HPI Physical Exam Physical Exam: RLE NVSI +EHL/FHL/TA/GS SILT grossly, +2 DP pulse, compartments soft NT Constitutional: WD/WN, vitals as above Results & Data ([facility]) Vital Signs (Past 12 Hours) Vital Signs Temp Pulse Resp BP Pulse Ox 03/23/19 04:53 78 20 99 03/22/19 23:05 36.8 C 70 20 128/69 99 03/22/19 19:38 78 22 97 03/22/19 19:06 36.6 C 73 18 111/55 L 97
[2019-03-23 07:14] LABS: Estimated Average Glucose 108 mg/dl; Hemoglobin A1C 5.4 % (4.5-5.6)
[2019-03-23] MEDS: ALBUT/IPRATROP 3MG/0.5MG NEB 3 ML VIAL NEB SCH ×3 (07:26→19:17)
[2019-03-23] MEDS: FLUTICASONE/VILANTEROL 100/25MCG 14 PUFFS/INHALER INH SCH (08:55)
[2019-03-23] MEDS: VERAPAMIL HCL 120 MG TABCR PO SCH (08:55)
[2019-03-23] MEDS: DOCUSATE SODIUM 100 MG CAP PO SCH (08:56)
[2019-03-23] MEDS: ATORVASTATIN 40 MG TAB PO SCH (08:58)
[2019-03-23] MEDS: UMECLIDINIUM BROMIDE 62.5MCG/BLISTER 7 PUFFS/INHALER INH SCH (08:58)
[2019-03-23] MEDS: lisinopriL 10 MG TAB PO SCH (08:58)
[2019-03-23] MEDS: PANTOprazole 40 MG TAB PO SCH (08:59)
[2019-03-23] MEDS: SERTRALINE HCL 100 MG TABLET PO SCH (08:59)
[2019-03-23] MEDS ORDERED: NON-FORMULARY MEDICATION (Fluticasone-Umeclidin-Vilanter [Trelegy Ellipta] 1 PUFFS) INH SCH (09:00)
[2019-03-23] MEDS: INSULIN ASPART 100 UNITS/ML 3 ML PEN SC SCH ×4 (09:08→21:35)
[2019-03-23] MEDS: ENOXAPARIN INJ 40 MG/0.4 ML SYR SQ SCH (15:31)
--- NOTE | 2019-03-23 16:20 | Hospitalist Progress Note ---
Date of Service March 23, 2019 Assessment & Plan (1) Dislocation of hip prosthesis: (2) Ambulatory dysfunction: This is a 69yo M with a PMH of COPD with chronic respiratory failure on 4L NC O2, DM II, HTN, tobacco use disorder, paroxysmal A Fib, recent right hip fracture s/p hemiarthroplasty on 02/14/[address] Zelaya who had a mechanical fall this morning and was found to have a dislocation of the right hip arthroplasty. -Mechanical fall this morning, found to have dislocation of the right hip arthroplasty on XR, s/p reduction by Dr. Gaffney -Per ortho, patient is to maintain toe-touch nonweightbearing right lower extremity, knee immobilizer to right lower extremity at all times -Will need to follow up with at [facility] in 1-2 weeks - call for appointment with Dr. Zelaya at [phone] -Pain control, PT, OT, discharge planning for rehab -Complains extreme pain with any movement of the right lower extremity -Continue PT and OT and will likely need to go to rehab (3) COPD (chronic obstructive pulmonary disease): Does not have any exacerbation Minimal wheezing requiring oxygen as before (4) Chronic respiratory failure with hypoxia: Oxygen saturation at baseline with 98% on 4 L nasal cannula -Continue home nebulizer as needed, Atrovent and Trelegy Ellipta (5) Diabetes mellitus, type II: A1c of 5.8 in Oct 2018. Repeat a1c -Hold home agents -SSI while in-patient -BSG AC HS (6) HTN (hypertension): Normotensive. Continue lisinopril Remains the lower side of normal (7) Paroxysmal atrial fibrillation: Continue Verapamil (8) Hypothyroidism: Continue levothyroxine (9) Mood disorder: Continue sertraline, hydroxyzine PRN (10) Tobacco use: Smokes 1 PPD. Not interested in cessation or nicotine patch (11) Alcohol use: H/o heavy alcohol use. Currently endorsing 2-3 beers daily. At risk alcohol precautions ordered DVT Ppx: SQ lovenox Code status: FULL PCP: Roxana Dispo: Admitted to med/surg. Discharge planning ordered. Medically stable Admission and Anticipated Discharge Date Admission Date: March 22, 2019 Anticipated date of discharge: 03/25/19 Subjective 03/23/2019 Patient was seen and examined in medical floor He is a status post hemiarthroplasty of the right hip on 14 February he has had a fall the morning of admission and dislocated the same joint Disposition by Ortho Complains lots of pain Denies any other significant symptoms Review of Systems Review of Systems: All systems reviewed and are unremarkable except as noted below Respiratory: + cough, + dyspnea and + wheezing Musculoskeletal: Pain in the right hip with any movement of the right lower extremity Physical Exam Physical Exam: Lying in bed with minimal distress due to shortness of breath Constitutional: well developed, well nourished and + acute distress; not ill appearing Eyes: PERRL, conjunctivae normal, anicteric sclerae ENMT: external ear and nose normal, oropharynx normal Neck: trachea midline, no thyromegaly Respiratory: + respiratory distress Auscultation: + diminished lung sounds, + crackles (At the base) and + wheezes Cardiovascular: Rate/Rhythm: regular rate and regular rhythm Heart Sounds: no murmur Gastrointestinal (Abdomen): Inspection/Auscultation: abdomen normal to inspection and normal bowel sounds Percussion/Palpation: abdomen soft; abdomen nontender Musculoskeletal: Extreme pain right hip with any movement of the right lower extremity Results & Data ([facility]) Vital Signs (Past 12 Hours) Vital Signs Temp Pulse Pulse Resp BP Pulse Ox 03/23/19 15:37 69 16 96 03/23/19 15:18 36.8 C 68 16 99/61 L 97 03/23/19 12:28 63 18 98 03/23/19 07:52 36.6 C 68 17 112/60 98 03/23/19 07:27 67 16 99 03/23/19 04:53 78 20 99 Laboratory Results Short CBC 03/23/19 Range/Units 04:48 WBC 10.36 (4.8-10.8) K/uL Hgb 11.1 L (14.0-18.0) g/dL Hct 34.2 L (42-52) % Plt Count 200 (130-400) K/uL BMP 03/23/19 04:48 Sodium 136 Potassium 4.4 Chloride 102 Carbon Dioxide 32 BUN 22 H Creatinine 1.07 Glucose 105 H Calcium 8.6 Medications Administered Current Inpatient Medications Acetaminophen (Tylenol) 650 mg PO Q4H PRN PRN Reason: pain/fever Stop: 04/21/19 13:15 Last Admin: 03/23/19 13:05 Dose: 650 mg Documented by: Albuterol (Duoneb) 3 ml NEB TID [facility] Stop: 04/21/19 13:59 Last Admin: 03/23/19 12:26 Dose: 3 ml Documented by: Atorvastatin Calcium (Lipitor) 40 mg PO QAM [facility] Stop: 04/22/19 08:59 Last Admin: 03/23/19 08:58 Dose: 40 mg Documented by: Dextrose (Dextrose 50%) 25 - 50 ml IV UD PRN; Protocol PRN Reason: Hypoglycemia Protocol Stop: 04/21/19 13:15 Docusate Sodium (Colace) 100 mg PO DAILY [facility] Stop: 04/22/19 08:59 Last Admin: 03/23/19 08:56 Dose: 100 mg Documented by: Enoxaparin Sodium (Lovenox) 40 mg SQ Q24H [facility] Stop: 04/21/19 13:15 Last Admin: 03/23/19 15:31 Dose: 40 mg Documented by: Fluticasone/Vilanterol (Breo Ellipta 100/25 Mcg Inh) 1 puffs INH DAILY [facility]; Protocol Stop: 04/22/19 08:59 Last Admin: 03/23/19 08:55 Dose: 1 puffs Documented by: Gabapentin (Neurontin) 300 mg PO HS [facility] Stop: 04/21/19 20:59 Last Admin: 03/22/19 21:27 Dose: 300 mg Documented by: Glucagon (Glucagen) 1 mg SQ UD PRN; Protocol PRN Reason: Hypoglycemia Protocol Stop: 04/21/19 13:15 Glucose (Dex4 Glucose) 4 - 8 tabs PO UD PRN; Protocol PRN Reason: Hypoglycemia Protocol Stop: 04/21/19 13:15 Glucose (Glucose 40%) 15 - 30 gm PO UD PRN; Protocol PRN Reason: Hypoglycemia Protocol Stop: 04/21/19 13:15 Hydroxyzine HCl (Vistaril) 50 mg PO Q6 PRN PRN Reason: anxiety/agitation Stop: 04/21/19 13:47 Insulin Aspart (Novolog Flexpen) 0 units SC ACHS [facility] Stop: 04/21/19 16:29 Last Admin: 03/23/19 13:10 Dose: 3 units Documented by: Ipratropium Philpot (Atrovent 0.02% 0.5mg/2.5ml) 0.5 mg INH Q4H PRN PRN Reason: Shortness Of Breath Or Wheezing Stop: 04/21/19 19:59 Last Admin: 03/23/19 15:37 Dose: 0.5 mg Documented by: Levalbuterol HCl (Xopenex 1.25mg/0.5ml Neb) 1.25 mg INH Q4H PRN PRN Reason: Shortness Of Breath Or Wheezing Stop: 04/21/19 19:59 Last Admin: 03/23/19 15:37 Dose: 1.25 mg Documented by: Levothyroxine Sodium (Synthroid) 50 mcg PO DAILYBB SAE Stop: 04/22/19 06:29 Last Admin: 03/23/19 05:21 Dose: 50 mcg Documented by: Lisinopril (Zestril) 10 mg PO DAILY [facility] Stop: 04/22/19 08:59 Last Admin: 03/23/19 08:58 Dose: 10 mg Documented by: Lorazepam (Ativan) 1 mg PO ONE PRN; Protocol PRN Reason: EtoH Withdrawal AWSS 6-10 Miscellaneous (Carbohydrates For Hypoglycemia) 15 - 30 gm PO UD PRN PRN Reason: Hypoglycemia Protocol Stop: 04/21/19 13:15 Montelukast Sodium (Singulair) 10 mg PO PM [facility]E Stop: 04/21/19 20:59 Last Admin: 03/22/19 21:27 Dose: 10 mg Documented by: Oxycodone HCl (Roxicodone Immediate Rel) 5 mg PO Q6H PRN PRN Reason: Pain Stop: 04/05/19 13:15 Last Admin: 03/23/19 14:16 Dose: 5 mg Documented by: Pantoprazole Sodium (Protonix) 40 mg PO DAILY [facility] Stop: 04/22/19 08:59 Last Admin: 03/23/19 08:59 Dose: 40 mg Documented by: Polyethylene Glycol (Miralax Powder Packet) 17 gm PO DAILY PRN PRN Reason: Constipation Stop: 04/21/19 13:15 Sertraline HCl (Zoloft) 100 mg PO DAILY [facility] Stop: 04/22/19 08:59 Last Admin: 03/23/19 08:59 Dose: 100 mg Documented by: Umeclidinium Philpot (Incruse Ellipta) 1 puffs INH DAILY [facility]; Protocol Stop: 04/22/19 08:59 Last Admin: 03/23/19 08:58 Dose: Not Given Documented by: Verapamil HCl (Calan Sr) 120 mg PO DAILY [facility] Stop: 04/22/19 08:59 Last Admin: 03/23/19 08:55 Dose: 120 mg Documented by:
[2019-03-23] MEDS: MONTELUKAST SODIUM 10 MG TABLET PO SCH (21:08)
[2019-03-23] MEDS: GABAPENTIN 300 MG CAP PO SCH (21:08)
[2019-03-24] MEDS: LEVALBUTEROL 1.25MG/0.5ML NEB INH PRN ×2 (00:01→17:15)
[2019-03-24] MEDS: IPRATROPIUM BROMIDE NEB SOLN 0.02% 2.5 ML VIAL INH PRN ×2 (00:01→17:15)
[2019-03-24 05:26] LABS: Hematocrit (blood only) 28.3 % (42-52); Hemoglobin 9.5 g/dL (14.0-18.0); Mean Corpuscular Hemoglobin 32.5 pg (25-34); Mean Corpuscular Hgb Conc 33.6 g/dL (32-36); Mean Corpuscular Volume 96.9 fL (80-100); Mean Platelet Volume 9.8 fL (7.4-10.4); Platelet Count 187 K/uL (130-400); RDW Coefficient of Variation 13.3 % (11.5-14.5); RDW Standard Deviation 47.4 fL (36.4-46.3); Red Blood Count 2.92 M/uL (4.7-6.1)
[2019-03-24 05:54] LABS: BUN Creatinine Ratio 17.7 (10-20); Calcium 8.6 mg/dl (8.5-10.1); Creatinine Clr Calc Pharmacy 57.8 ml/min; Est GFR (Non-African American) 69.9; Potassium 4.1 mmol/L (3.5-5.1)
[2019-03-24] MEDS: LEVOTHYROXINE SODIUM 50 MCG TABLET PO SCH (06:12)
[2019-03-24] MEDS: ALBUT/IPRATROP 3MG/0.5MG NEB 3 ML VIAL NEB SCH ×3 (07:18→20:16)
[2019-03-24] MEDS: INSULIN ASPART 100 UNITS/ML 3 ML PEN SC SCH ×4 (08:36→21:41)
[2019-03-24] MEDS: UMECLIDINIUM BROMIDE 62.5MCG/BLISTER 7 PUFFS/INHALER INH SCH (08:39)
[2019-03-24] MEDS: FLUTICASONE/VILANTEROL 100/25MCG 14 PUFFS/INHALER INH SCH (08:39)
[2019-03-24] MEDS: SERTRALINE HCL 100 MG TABLET PO SCH (08:40)
[2019-03-24] MEDS: ATORVASTATIN 40 MG TAB PO SCH (08:40)
[2019-03-24] MEDS: PANTOprazole 40 MG TAB PO SCH (08:40)
[2019-03-24] MEDS: VERAPAMIL HCL 120 MG TABCR PO SCH (08:40)
[2019-03-24] MEDS: lisinopriL 10 MG TAB PO SCH (08:41)
[2019-03-24] MEDS: DOCUSATE SODIUM 100 MG CAP PO SCH (08:41)
[2019-03-24] MEDS: ENOXAPARIN INJ 40 MG/0.4 ML SYR SQ SCH (13:02)
--- NOTE | 2019-03-24 14:32 | Hospitalist Progress Note ---
Date of Service March 24, 2019 Assessment & Plan (1) Dislocation of hip prosthesis: Status post reduction of the right hip hemiarthroplasty Appreciate orthopedic input and recommendation Participating in PT Will need to be placed to continue physical therapy in a rehab facility (2) Ambulatory dysfunction: This is a 69yo M with a PMH of COPD with chronic respiratory failure on 4L NC O2, DM II, HTN, tobacco use disorder, paroxysmal A Fib, recent right hip fracture s/p hemiarthroplasty on 02/14/[address] Zelaya who had a mechanical fall this morning and was found to have a dislocation of the right hip arthroplasty. -Mechanical fall this morning, found to have dislocation of the right hip arthroplasty on XR, s/p reduction by Dr. Gaffney -Per ortho, patient is to maintain toe-touch nonweightbearing right lower extremity, knee immobilizer to right lower extremity at all times -Will need to follow up with at [facility] in 1-2 weeks - call for appointment with Dr. Zelaya at [phone] -Pain control, PT, OT, discharge planning for rehab -Complains extreme pain with any movement of the right lower extremity -Continue PT and OT and will likely need to go to rehab (3) COPD (chronic obstructive pulmonary disease): Does not have any exacerbation Minimal wheezing requiring oxygen as before Respiratory symptoms remain stable No acute shortness of breath at rest Has wheezing and minimal crackles at the bases (4) Chronic respiratory failure with hypoxia: Oxygen saturation at baseline with 98% on 4 L nasal cannula -Continue home nebulizer as needed, Atrovent and Trelegy Ellipta (5) Diabetes mellitus, type II: A1c of 5.8 in Oct 2018. Repeat a1c -Hold home agents -SSI while in-patient -BSG AC HS (6) HTN (hypertension): Normotensive. Continue lisinopril Remains the lower side of normal (7) Paroxysmal atrial fibrillation: Continue Verapamil (8) Hypothyroidism: Continue levothyroxine (9) Mood disorder: Continue sertraline, hydroxyzine PRN (10) Tobacco use: Smokes 1 PPD. Not interested in cessation or nicotine patch (11) Alcohol use: H/o heavy alcohol use. Currently endorsing 2-3 beers daily. At risk alcohol precautions ordered DVT Ppx: SQ lovenox Code status: FULL PCP: Roxana Dispo: Admitted to med/surg. Discharge planning ordered. Medically stable to be transferred Admission and Anticipated Discharge Date Admission Date: March 22, 2019 Anticipated date of discharge: 03/25/19 Subjective 03/23/2019 Patient was seen and examined in medical floor He is a status post hemiarthroplasty of the right hip on 14 February he has had a fall the morning of admission and dislocated the same joint Disposition by Ortho Complains lots of pain Denies any other significant symptoms 03/24/2019 Patient was seen and examined in medical floor He is lying in bed comfortably without any significant shortness of breath Complains to pain involving the right leg with any movement Has been getting physical therapy and recommended rehab Review of Systems Review of Systems: All systems reviewed and are unremarkable except as noted below Respiratory: + cough, + dyspnea and + wheezing Musculoskeletal: Pain in the right hip with any movement of the right lower extremity Physical Exam Physical Exam: Lying in bed with minimal distress due to shortness of breath Constitutional: well developed, well nourished and + acute distress; not ill appearing Eyes: PERRL, conjunctivae normal, anicteric sclerae ENMT: external ear and nose normal, oropharynx normal Neck: trachea midline, no thyromegaly Respiratory: normal respiratory effort; no respiratory distress Auscultation: + diminished lung sounds, + crackles (At the base) and + wheezes Cardiovascular: Rate/Rhythm: regular rate and regular rhythm Heart Sounds: no murmur Gastrointestinal (Abdomen): Inspection/Auscultation: abdomen normal to inspection and normal bowel sounds Percussion/Palpation: abdomen soft; abdomen nontender Musculoskeletal: Right leg is painful with any movement Neurologic: Alert, awake and oriented x3 Results & Data ([facility]) Vital Signs (Past 12 Hours) Vital Signs Temp Pulse Resp BP Pulse Ox 03/24/19 13:09 82 22 98 03/24/19 07:19 73 20 98 03/24/19 07:05 36.7 C 60 18 115/65 99 Laboratory Results Short CBC 03/24/19 Range/Units 05:00 WBC 9.60 (4.8-10.8) K/uL Hgb 9.5 L (14.0-18.0) g/dL Hct 28.3 L (42-52) % Plt Count 187 (130-400) K/uL BMP 03/24/19 05:00 Sodium 136 Potassium 4.1 Chloride 102 Carbon Dioxide 33 H BUN 19 H Creatinine 1.09 Glucose 117 H Calcium 8.6 Medications Administered Current Inpatient Medications Acetaminophen (Tylenol) 650 mg PO Q4H PRN PRN Reason: pain/fever Stop: 04/21/19 13:15 Last Admin: 03/23/19 23:13 Dose: 650 mg Documented by: Albuterol (Duoneb) 3 ml NEB TID [facility] Stop: 04/21/19 13:59 Last Admin: 03/24/19 13:08 Dose: 3 ml Documented by: Atorvastatin Calcium (Lipitor) 40 mg PO QAM [facility] Stop: 04/22/19 08:59 Last Admin: 03/24/19 08:40 Dose: 40 mg Documented by: Dextrose (Dextrose 50%) 25 - 50 ml IV UD PRN; Protocol PRN Reason: Hypoglycemia Protocol Stop: 04/21/19 13:15 Docusate Sodium (Colace) 100 mg PO DAILY [facility] Stop: 04/22/19 08:59 Last Admin: 03/24/19 08:41 Dose: 100 mg Documented by: Enoxaparin Sodium (Lovenox) 40 mg SQ Q24H [facility] Stop: 04/21/19 13:15 Last Admin: 03/24/19 13:02 Dose: 40 mg Documented by: Fluticasone/Vilanterol (Breo Ellipta 100/25 Mcg Inh) 1 puffs INH DAILY [facility]; Protocol Stop: 04/22/19 08:59 Last Admin: 03/24/19 08:39 Dose: 1 puffs Documented by: Gabapentin (Neurontin) 300 mg PO HS [facility] Stop: 04/21/19 20:59 Last Admin: 03/23/19 21:08 Dose: 300 mg Documented by: Glucagon (Glucagen) 1 mg SQ UD PRN; Protocol PRN Reason: Hypoglycemia Protocol Stop: 04/21/19 13:15 Glucose (Dex4 Glucose) 4 - 8 tabs PO UD PRN; Protocol PRN Reason: Hypoglycemia Protocol Stop: 04/21/19 13:15 Glucose (Glucose 40%) 15 - 30 gm PO UD PRN; Protocol PRN Reason: Hypoglycemia Protocol Stop: 04/21/19 13:15 Hydroxyzine HCl (Vistaril) 50 mg PO Q6 PRN PRN Reason: anxiety/agitation Stop: 04/21/19 13:47 Insulin Aspart (Novolog Flexpen) 0 units SC ACHS SAE Stop: 04/21/19 16:29 Last Admin: 03/24/19 12:59 Dose: 3 units Documented by: Ipratropium [place] (Atrovent 0.02% 0.5mg/2.5ml) 0.5 mg INH Q4H PRN PRN Reason: Shortness Of Breath Or Wheezing Stop: 04/21/19 19:59 Last Admin: 03/24/19 00:01 Dose: 0.5 mg Documented by: Levalbuterol HCl (Xopenex 1.25mg/0.5ml Neb) 1.25 mg INH Q4H PRN PRN Reason: Shortness Of Breath Or Wheezing Stop: 04/21/19 19:59 Last Admin: 03/24/19 00:01 Dose: 1.25 mg Documented by: Levothyroxine Sodium (Synthroid) 50 mcg PO DAILYBB [facility] Stop: 04/22/19 06:29 Last Admin: 03/24/19 06:12 Dose: 50 mcg Documented by: Lisinopril (Zestril) 10 mg PO DAILY [facility] Stop: 04/22/19 08:59 Last Admin: 03/24/19 08:41 Dose: 10 mg Documented by: Lorazepam (Ativan) 1 mg PO ONE PRN; Protocol PRN Reason: EtoH Withdrawal AWSS 6-10 Miscellaneous (Carbohydrates For Hypoglycemia) 15 - 30 gm PO UD PRN PRN Reason: Hypoglycemia Protocol Stop: 04/21/19 13:15 Montelukast Sodium (Singulair) 10 mg PO PM SAE Stop: 04/21/19 20:59 Last Admin: 03/23/19 21:08 Dose: 10 mg Documented by: Oxycodone HCl (Roxicodone Immediate Rel) 5 mg PO Q6H PRN PRN Reason: Pain Stop: 04/05/19 13:15 Last Admin: 03/23/19 23:31 Dose: 5 mg Documented by: Pantoprazole Sodium (Protonix) 40 mg PO DAILY [facility] Stop: 04/22/19 08:59 Last Admin: 03/24/19 08:40 Dose: 40 mg Documented by: Polyethylene Glycol (Miralax Powder Packet) 17 gm PO DAILY PRN PRN Reason: Constipation Stop: 04/21/19 13:15 Sertraline HCl (Zoloft) 100 mg PO DAILY [facility] Stop: 04/22/19 08:59 Last Admin: 03/24/19 08:40 Dose: 100 mg Documented by: Umeclidinium [place] (Incruse Ellipta) 1 puffs INH DAILY [facility]; Protocol Stop: 04/22/19 08:59 Last Admin: 03/24/19 08:39 Dose: 1 puffs Documented by: Verapamil HCl (Calan Sr) 120 mg PO DAILY [facility] Stop: 04/22/19 08:59 Last Admin: 03/24/19 08:40 Dose: 120 mg Documented by:
[2019-03-24] MEDS: OXYCODONE HCL IR 5 MG TAB (IMMEDIATE RELEASE) PO PRN (21:37)
[2019-03-24] MEDS: MONTELUKAST SODIUM 10 MG TABLET PO SCH (21:38)
[2019-03-24] MEDS: GABAPENTIN 300 MG CAP PO SCH (21:38)
[2019-03-24] MEDS: ACETAMINOPHEN 325 MG TAB PO PRN (21:38)
[2019-03-25] MEDS: LEVOTHYROXINE SODIUM 50 MCG TABLET PO SCH (05:55)
[2019-03-25 06:34] LABS: Creatinine Clr Calc Pharmacy 54.3 ml/min; Est GFR (African American) 75.1; Est GFR (Non-African American) 64.8
[2019-03-25] MEDS: ALBUT/IPRATROP 3MG/0.5MG NEB 3 ML VIAL NEB SCH ×2 (06:48→12:55)
[2019-03-25] MEDS: FLUTICASONE/VILANTEROL 100/25MCG 14 PUFFS/INHALER INH SCH (09:08)
[2019-03-25] MEDS: VERAPAMIL HCL 120 MG TABCR PO SCH (09:08)
[2019-03-25] MEDS: DOCUSATE SODIUM 100 MG CAP PO SCH (09:09)
[2019-03-25] MEDS: PANTOprazole 40 MG TAB PO SCH (09:10)
[2019-03-25] MEDS: UMECLIDINIUM BROMIDE 62.5MCG/BLISTER 7 PUFFS/INHALER INH SCH (09:10)
[2019-03-25] MEDS: ATORVASTATIN 40 MG TAB PO SCH (09:10)
[2019-03-25] MEDS: SERTRALINE HCL 100 MG TABLET PO SCH (09:11)
[2019-03-25] MEDS: lisinopriL 10 MG TAB PO SCH (09:11)
[2019-03-25] MEDS: INSULIN ASPART 100 UNITS/ML 3 ML PEN SC SCH ×2 (09:18→12:42)
--- NOTE | 2019-03-25 11:58 | Discharge Summary ---
Date of Service March 25, 2019 Admission HPI Per Admitting Provider This is a 69yo M with a PMH of COPD with chronic respiratory failure on 4L NC O2, DM II, HTN, tobacco use disorder, paroxysmal A Fib, recent right hip fracture s/p hemiarthroplasty on 02/14/[address] Zelaya who had a mechanical fall this morning. Earlier today, patient was ambulating in bathroom using walker when he lost his balance and fell on hip. Was able to reach to reach his phone and call EMS. XR in ED revealed posterior superior dislocation of the right hip arthroplasty with respect to the acetabulum. No acute fracture of the right femur. Denies any head trauma or LOC with fall. No numbness and tingling to right lower extremity. Was evaluated by Dr. Gaffney with successful reduction maneuver performed. Patient now with RLE in knee immobilizer. Denies any fever, chills, lightheadedness, visual changes, chest pain, palpitations, SOB, nausea, vomiting, abdominal pain, dysuria, diarrhea or constipation. Admission Exam Per Admitting Provider General: Alert and oriented x 3. NAD HENT: Normocephalic, atraumatic, pupils round and equally reactive to light, oral mucosa: moist Neck: Supple, no lymph nodes palpated, no thyromegaly CVS: Normal S1, S2. No murmur, rub or gallop. PMI non displaced. Peripheral pulses normal. Resp: Normal percussion. Normal breath sounds bilaterally. No wheezing or rales heard Abdomen: Soft, non tender, no hepatosplenomegaly. Bowel sounds positive Extremities: No pitting edema Neuro: Power 5/5 throughout except right leg which was not tested because of recent reduction he was able to wiggle toes, grossly normal sensations, DTR's normal Psychiatry: Normal mood, normal thought process Principal Diagnosis Dislocation of Right hip prosthesis s/p reduction Discharge Exam Physical Exam: Lying in bed in NAD, on NC Constitutional: well developed, well nourished, not ill appearing, not in d istress Eyes: PERRL, EOMI, conjunctivae normal, anicteric sclerae ENMT: external ear and nose normal, oropharynx normal Neck: trachea midline, no thyromegaly Respiratory: normal respiratory effort; no respiratory distress Auscultation: + diminished lung sounds, + crackles (At the base) and + mild wheezes Cardiovascular: Rate/Rhythm: regular rate and regular rhythm Heart Sounds: no murmur Gastrointestinal (Abdomen): Inspection/Auscultation: abdomen normal to inspection and normal bowel sounds Percussion/Palpation: abdomen soft; abdomen nontender Musculoskeletal: Right leg is painful with any movement, RLE is warm, well perfused, no sensory loss, knee immobilizer placed, LLE moves w/o difficulty Neurologic: Alert, awake and oriented x3 Discharge Data Allergies Allergy/AdvReac Type Severity Reaction Status Date / Time turkey Allergy Unknown Verified 03/22/19 11:08 Consultations 03/22/19 10:37 ED Decision to Admit Stat 03/22/19 13:16 Consult Case Management - Discharge Planning Routine Consult Orthopedic Surgery Routine Ordered Studies 03/22/19 09:09 CT hip RT wo con Stat IMPRESSION: 1. Anatomic alignment of the total right hip arthroplasty following reduction. 2. Suboptimal evaluation given streak artifact from the hardware. 2.1 x 0.3 cm bone fragment along the posterior acetabulum. This finding is age indeterminate but probably subacute to chronic. Numerous additional small ossific/calcific densities posterior to the proximal right femur are not acute. Hospital Course (1) Dislocation of hip prosthesis: Status post reduction of the right hip hemiarthroplasty Appreciate orthopedic input and recommendation Participating in PT Will need to be placed to continue physical therapy in a rehab facility (2) Ambulatory dysfunction: This is a 69yo M with a PMH of COPD with chronic respiratory failure on 4L NC O2, DM II, HTN, tobacco use disorder, paroxysmal A Fib, recent right hip fracture s/p hemiarthroplasty on 02/14/[address] Zelaya who had a mechanical fall in the morning of admission and was found to have a dislocation of the right hip arthroplasty. -Mechanical fall, found to have dislocation of the right hip arthroplasty on XR, s/p reduction by Dr. Curry -Per ortho, patient is to maintain toe-touch nonweightbearing right lower extremity, knee immobilizer to right lower extremity at all times (except for routine hygiene) -Will need to follow up with at [facility] in 1-2 weeks - call for appointment with Dr. Zelaya at [phone] -Pain control, PT, OT, discharge planning for rehab -Complains of pain with any movement of the right lower extremity -Continue PT and OT while inpt, plan to D/C to rehab (3) COPD (chronic obstructive pulmonary disease): Does not have any exacerbation Minimal wheezing requiring oxygen as before Respiratory symptoms remain stable No acute shortness of breath at rest Has wheezing and minimal crackles at the bases (4) Chronic respiratory failure with hypoxia: Oxygen saturation at baseline with 98% on 4 L nasal cannula -Continue home nebulizer as needed, Atrovent and Trelegy Ellipta -given his COPD, keep O2 sats at 88-92% (5) Diabetes mellitus, type II: A1c of 5.8 in Oct 2018. Repeat a1c -Hold home agents while inpt, resume on d/c -SSI while in-patient -BSG AC HS (6) HTN (hypertension): Normotensive. Continue lisinopril Remains the lower side of normal (7) Paroxysmal atrial fibrillation: Continue Verapamil (8) Hypothyroidism: Continue levothyroxine (9) Mood disorder: Continue sertraline, hydroxyzine PRN (10) Tobacco use: Smokes 1 PPD. Not interested in cessation or nicotine patch Says he tried to quit smoking several times before. Smoking cessation counseling provided. (11) Alcohol use: H/o heavy alcohol use. Currently endorsing 2-3 beers daily. At risk alcohol precautions ordered DVT Ppx: SQ lovenox Code status: FULL PCP: Roxana Dispo: Admitted to med/surg. Plan to d/c to rehab Total Time Total Time Spent Total Time Spent (In Minutes): 40 Total Time Includes: Examination of the Patient, Discharge Planning, Medication Reconciliation and Communication With Other Providers Discharge Plan Discharge Items Patient Disposition: Transfer Inpatient Rehab Fac Reason For Visit: R HIP DISLOCATION Discharge Diagnosis: Dislocation of Right hip prosthesis s/p reduction Condition on Discharge: Good Activity: Per Instructions section Non-emergency contact: Surgeon Call non-emergency contact if: your symptoms worsen Follow-up/Referrals: Derrell Schmidt MD [Primary Care Provider] - Diet: Carb Consistent or DM2 and Heart Healthy Addtl Attending Provider Instructions: Please see detailed instructions from your orthopedic surgeon below. For pain you can take Tylenol 1000 mg 3 times a day, max dose is 3000 mg. For more severe pain, you can take oxycodone 5 mg as prescribed. You will need to follow-up with Dr. Zelaya in 1-2 weeks, please make sure to make an appointment at the # . Because of your COPD, your oxygen saturations should be kept at 88-92%. Consider to quit smoking, please call 1800 quit now - free smoking cessation line. Addtl Supervisor Joiners Provider Instructions: ACTIVITY RECOMMENDATIONS: SELF CARE INSTRUCTIONS AFTER HIP DISLOCATION Until the soft tissues around your hip have healed, there is a possibility that the hip prosthesis could dislocate. A. Observe the following precautions to prevent dislocation: 1. Don't bend your hip greater than 90 degrees. 2. Avoid crossing your legs or ankles while standing or lying. 3. Sit with your feet placed 6 inches apart. 4. When sitting, keep your knees below your hips. Sit on a firm surface, avoid deep, soft chairs and couches. Use an elevated toilet seat in the bathroom. 5. Don't bend over at the waist. Use a long handled shoehorn and a sock aid to help you put on your shoes and socks. A shift foreman can help you roller picker objects that are too high or too low to reach. 6. Keep car riding to a minimum for at least one month after surgery. B. Your balance may be shaky for a while. Use crutches or a walker until directed by your doctor. C. Use hand rails when walking on stairs. D. Wear low heeled shoes with non-slip soles. E. Be sure that your floors are free of things that could trip you - throw rugs, electrical cords, small objects. Avoid wet and waxed floors, especially with crutches and canes. F. Try to walk several times a day with rest periods between. G. Continue with all the exercises taught to you in the hospital. Again, make walking a part of your daily routine. SPECIAL CARE INSTRUCTIONS: VERY IMPORTANT TO READ AND REVIEW A. You may still be at risk for phlebitis and blood clots. Your physician may keep you on a blood thinner for several weeks after your dislocation. This will be at his or her discretion. B. You must take antibiotics before having dental work, bladder, bowel and ot her surgery. Your doctor will provide you with a permanent card to carry describing precautions. C. Call [facility] [place] if you have a fever, redness or swelling around the incision, cloudy drainage from incision, or sudden increase in pain in your hip, not relieved by your regular pain medication. D. Please call the office at if you have any concerns or questions about your operation or recovery. * YOU MAY SHOWER, * YOU SHOULD USE A WALKER OR CRUTCHES FOR 2-4 WEEKS. THIS WILL HELP PREVENT STRAIN ON YOUR HIP MUSCLE AND ALLOW IT TO HEAL PROPERLY. YOU MAY WEAN TO A CANE TOLERATED. * MOST PATIENTS WILL HAVE HOME NURSING FOR THERAPY. IF YOU DECIDE TO DO OUTPATIENT PHYSICAL THERAPY, PLEASE SCHEDULE THIS 3 TIMES PER WEEK. FOLLOW UP VISIT: If appointment is not already scheduled: Please call [facility] [place] to make a follow-up appointment for 2 weeks after your surgery at . Pending Studies at Discharge: No Stand-Alone Forms: My [facility] Skilled Items Patient informed of condition?: Yes DNR: No Discharge Level of Care: Acute rehab Communicable Disease: No Discharge Prognosis: Stable Lines: None Urinary Catheter: No Medications and DC Order Prescriptions: New oxycodone 5 mg Tablet 5 mg PO Q6H PRN (Reason: pain) 5 Days Qty: 14 RF: 0 enoxaparin 40 mg/0.4 mL Syringe 40 mg subcut Q24H 5 Days Qty: 2 RF: 0 polyethylene glycol 3350 [Miralax] 17 gram Powder In Packet 17 g PO DAILY PRN (Reason: constipation) 5 Days Qty: 5 RF: 0 Continued verapamil 120 mg Tablet Extended Release 120 mg PO DAILY RF: 0 levothyroxine 50 mcg Tablet 50 mcg PO DAILY RF: 0 pantoprazole 40 mg Tablet,Delayed Release (Dr/Ec) 40 mg PO DAILY RF: 0 lisinopril 10 mg Tablet 10 mg PO DAILY RF: 0 Trelegy Ellipta 100-62.5-25 mcg Blister With Device 1 inh INHALATION DAILY RF: 0 sertraline 100 mg Tablet 100 mg PO DAILY RF: 0 montelukast 10 mg Tablet 10 mg PO PM RF: 0 atorvastatin 40 mg tablet 40 mg PO QAM RF: 0 docusate sodium [Colace] 100 mg Capsule 100 mg PO DAILY RF: 0 gabapentin 300 mg capsule 300 mg PO HS RF: 0 metformin 1,000 mg Tablet Extended Release 24hr 1,000 mg PO DAILY RF: 0 albuterol sulfate 2.5 mg /3 mL (0.083 %) Solution For Nebulization 2.5 mg INHALATION TID Qty: 0 RF: 0 ipratropium bromide 0.02 % solution 0.5 mg Inhalation TID Qty: 0 RF: 0 hydroxyzine HCl 50 mg Tablet 50 mg PO Q6 PRN (Reason: anxiety/agitation) RF: 0 acetaminophen 325 mg Tablet 650 mg PO Q6 MDD 3g/24hr PRN (Reason: pain scale 1-4) RF: 0 Discharge Orders: Discharge Order (Routine); Ordered 03/25/19 Ordered By: Adiel Conroy/Other Patient Handouts: Quit Smoking Plan, Smoking Health Effects Admission Data Admit Date/Time: 03/22/19 11:42 Attending Provider: Adiel Garrison Admit Provider: Yajaira Hunter Primary Care Provider: Derrell Schmidt Other Providers: Vadim Zelaya ; Yajaira Hunter ; Jacob Barrera ; Shalini Madsen
[2019-03-25] MEDS: ENOXAPARIN INJ 40 MG/0.4 ML SYR SQ SCH (12:16)
== END 2019-03-25 16:10 | DRG 560 ==
LOC: ED 07:27 → 3N 11:42 → SUATTDRO 11:42 → 3N 13:01

== ENCOUNTER 2019-04-19 09:13 | Inpatient (IN) ==
--- NOTE | 2019-04-19 09:37 | Emergency Department Note ---
Entered by Placido Goodwin acting as a scribe for Bravo Riley MD History of Present Illness General Chief complaint: Rib Injury/Pain Stated complaint: Rib pain Time Seen by Provider: 04/19/19 09:18 Source: patient Limitations: no limitations History of Present Illness Onset (ago): hour(s) (this morning) Location: chest Pain Consistency: + constant Quality: + sharp Exacerbated By: + other (taking deep breaths) Associated symptoms: + denies other symptoms (abdominal pain, calf tenderness, increased cough, increased SOB, black and bloody stools); no fever/chills (fevers) The patient is a 69 year old male who presents to the Emergency Room with complaints of constant left chest pain under his left armpit starting this morning. The patient states he rolled over in bed today when he started having the sharp pain. He states he had a hip fracture in February and hip dislocation i n March. He states he has been in rehab at [facility]. He notes his pain is slightly worse when he takes a deep breath. The patient denies having calf tenderness, increased cough, increased SOB, fevers, flu-like symptoms, abdominal pain, black or bloody stools, previous blood clots, history of heart problems, and previous collapsed lungs. He states he smokes. He states he occasionally drinks, and notes the last time he drank was about 2 months ago. He states he has COPD. Home Medications Home Medications Medication Instructions Recorded Confirmed Type atorvastatin 40 mg PO QAM 01/28/18 04/19/19 History docusate sodium [Colace] 100 mg PO DAILY 01/28/18 04/19/19 History gabapentin 300 mg PO HS 01/28/18 04/19/19 History metformin 1,000 mg PO DAILY 04/23/18 04/19/19 History albuterol sulfate 2.5 mg INHALATION TID #0 ml 04/30/18 04/19/19 Rx ipratropium bromide 0.5 mg INHALATION TID #0 ml 04/30/18 04/19/19 Rx Trelegy Ellipta 1 inh INHALATION DAILY 02/13/19 04/19/19 History levothyroxine 50 mcg PO DAILY 02/13/19 04/19/19 History lisinopril 10 mg PO DAILY 02/13/19 04/19/19 History montelukast 10 mg PO PM 02/13/19 04/19/19 History pantoprazole 40 mg PO DAILY 02/13/19 04/19/19 History sertraline 100 mg PO DAILY 02/13/19 04/19/19 History verapamil 120 mg PO DAILY 02/13/19 04/19/19 History acetaminophen 650 mg PO Q6 PRN MDD 3g/24hr 02/22/19 04/19/19 History hydroxyzine HCl 50 mg PO Q6 PRN 02/22/19 04/19/19 History Allergies Allergy/AdvReac Type Severity Reaction Status Date / Time turkey Allergy Unknown Verified 03/22/19 11:08 Past Med/Surg History Medical History Alcohol use BPH (benign prostatic hyperplasia) Chronic respiratory failure with hypoxia COPD (chronic obstructive pulmonary disease) Depression Diabetes mellitus, type II Dyslipidemia Esophageal stenosis "s/p dilation June 2016" GERD (gastroesophageal reflux disease) HTN (hypertension) Hypothyroidism Leg edema Mood disorder Paroxysmal atrial fibrillation Superficial thrombophlebitis "2009" TIA (transient ischemic attack) "1982" Surgical History History of cataract surgery S/P bronchoscopy Family History Other Diabetes Social History Preferred Language: Amharic Communication Ability: Effective Ammonia Worker Required: No Beliefs That Will Affect Care: None marital status: Single [facility] Current Living Situation Comment: [facility] Other Information That Helps Us Care for You: No Feels Safe at Home: Yes Safety Concerns: Feels Safe At This Time Smoking Status: Current every day smoker Tobacco Type: cigarettes ; Cigarettes Per Day: 20 ; Do You Dip or Chew Tobacco: No (quit) ; Second Hand Exposure: No ; Tobacco Cessation Education Requested by Patient: No Hx Alcohol Use: Yes Alcohol type: beer Alcohol Intake Frequency Comment: 2 beers a day Hx Substance Use: No Review of Systems See HPI for pertinent positives & negatives. and A total of 10 systems reviewed and were otherwise negative Physical Exam Vital Signs Vital Signs - 24 hr 04/19/19 09:03 04/19/19 09:40 04/19/19 09:41 Temperature 36.4 C L Temperature Source Oral Pulse Rate 76 Pulse Rate from SpO2 Sensor Respiratory Rate 18 Respiratory Effort / Characteristics Non-Labored Respiratory Depth Normal Blood Pressure 111/62 Blood Pressure Mean 78 Blood Pressure Position Sitting Pulse Oximetry 96 Oxygen Delivery Method Nasal Cannula Nasal Cannula Nasal Cannula Oxygen Flow Rate 4 Sepsis Recent Fever Within 48 Hours No Sepsis Action Taken by Nursing No Action Required 04/19/19 10:54 04/19/19 12:12 04/19/19 12:31 Temperature Temperature Source Pulse Rate 61 59 L 61 Pulse Rate from SpO2 Sensor 62 60 60 Respiratory Rate 21 24 20 Respiratory Effort / Characteristics Respiratory Depth Blood Pressure 113/53 L 132/80 133/76 Blood Pressure Mean 71 110 89 Blood Pressure Position Pulse Oximetry 96 97 100 Oxygen Delivery Method Nasal Cannula Nasal Cannula Oxygen Flow Rate 4 4 Sepsis Recent Fever Within 48 Hours Sepsis Action Taken by Nursing 04/19/19 13:00 04/19/19 13:30 Temperature Temperature Source Pulse Rate 62 62 Pulse Rate from SpO2 Sensor 62 64 Respiratory Rate 24 26 H Respiratory Effort / Characteristics Respiratory Depth Blood Pressure Blood Pressure Mean Blood Pressure Position Pulse Oximetry 99 99 Oxygen Delivery Method Oxygen Flow Rate Sepsis Recent Fever Within 48 Hours Sepsis Action Taken by Nursing General: Chronically-ill appearing older male but not acutely ill appearing, in no acute distress. Wearing baseline oxygen. HEENT: Normal cephalic atraumatic. Pupils are equal round and reactive to light. Extraocular movements are intact. Oropharynx is pink with moist mucous membranes. No swelling of the mouth lips or tongue. Neck: Supple with a midline trachea. No meningeal signs or stiffness, no JVD or bruits. No Stridor. Chest: Clear to auscultation bilaterally. No wheezes or rhonchi. No increased work of breathing. Left chest is mildly tender laterally. No crepitus. Lung sounds diminished bilaterally. Heart: regular rate and rhythm. Abdomen: Soft nontender, nondistended without rebound guarding or rigidity. Extremities: No cyanosis clubbing or edema. No calf tenderness or asymmetry Spine/Back. Non tender to palpation. No CVA tenderness Skin: Good turgor without rashes. Neurologic exam: Cranial nerves two through 12 are intact. Motor and sensation a re intact and symmetrical throughout. Course Course 0918: The patient was evaluated in room B7, and a complete history and physical examination were performed. 0952: The patient states he had a PET scan about 3-4 weeks ago. 1029: The patient is resting comfortably. He denies having fevers, urinary symptoms, nausea, and vomiting. He states he has a chronic unproductive cough that is unchanged. 1148: I discussed the patient's case with Dr. Tena Ann Hospitalist. He will evaluate the patient for further management. Administered Medications Levofloxacin/Dextrose (Levaquin/D5w) 750 mg in 150 mls @ 100 mls/hr IV Q24H SAE Stop: 04/19/19 14:00 Last Admin: 04/19/19 12:16 Dose: 100 mls/hr Documented by: [id number] Ioversol (Optiray 320 125ml) 120 ml IV ONCE PRN PRN Reason: Interaction Checking Stop: 04/23/19 10:40 Last Admin: 04/19/19 10:42 Dose: 120 ml Documented by: [id number] Discontinued Medications Sodium Chloride (Nss 1000ml) 1,000 mls @ 999 mls/hr IV .Q1H1M ONE Stop: 04/19/19 12:40 Last Infusion: 04/19/19 13:16 Dose: 0 mls/hr Documented by: [id number] Admin: 04/19/19 12:15 Dose: 999 mls/hr Documented by: [id number] Medical Decision Making Differential Diagnosis Differential Diagnosis includes but is not limited to cardiac disease, pneumothorax, PE, musculoskeletal, infection, and trauma. Medical Records Attestation: I reviewed the patient's medical records. Home Medications Current Medication List: was personally reviewed by me Laboratory Data Attestation: I reviewed the patient's lab results. Result diagrams: 04/19/19 09:48 04/19/19 09:48 Lab Results 04/19/19 04/19/19 04/19/19 Range/Units 09:48 09:48 09:48 WBC 23.33 H (4.8-10.8) K/uL RBC 3.53 L (4.7-6.1) M/uL Hgb 11.2 L (14.0-18.0) g/dL Hct 33.8 L (42-52) % MCV 95.8 (80-100) fL MCH 31.7 (25-34) pg MCHC 33.1 (32-36) g/dL RDW Std Deviation 46.8 H (36.4-46.3) fL RDW Coeff of Daquan 13.5 (11.5-14.5) % Plt Count 376 (130-400) K/uL MPV 9.6 (7.4-10.4) fL Immature Gran % (Auto) 0.3 % Neut % (Auto) 89.6 % Lymph % (Auto) 5.1 % Charles % (Auto) 4.3 % Eos % (Auto) 0.6 % Baso % (Auto) 0.1 % Immature Gran # (Auto) 0.06 H (0.00-0.02) K/uL Neut # (Auto) 20.88 H (1.4-6.5) K/uL Lymph # (Auto) 1.20 (1.2-3.4) K/uL Charles # (Auto) 1.01 H (0.11-0.59) K/uL Eos # (Auto) 0.15 (0-0.5) K/uL Baso # (Auto) 0.03 (0-0.2) K/uL Absolute Nucleated RBC 0.00 (0-0) K/uL Nucleated RBC % (auto) 0.0 % PT 11.3 (9.0-12.0) Seconds INR 1.1 (0.9-1.1) APTT 25.2 (21.0-31.0) Seconds PTT Ratio 0.9 D-Dimer 1380 H* (0-500) ug/L FEU Sodium 137 (136-145) mmol/L Potassium 4.6 (3.5-5.1) mmol/L Chloride 103 (98-107) mmol/L Carbon Dioxide 28 (21-32) mmol/L Anion Gap 5.0 (3-11) BUN 19 H (7-18) mg/dl Creatinine 1.02 (0.6-1.4) mg/dl Est Cr Clr Drug Dosing 68.2 ml/min Est GFR ( Amer) 87.7 Est GFR (Non-Af Amer) 75.7 BUN/Creatinine Ratio 18.6 (10-20) Glucose 100 H (70-99) mg/dl Lactate (0.4-2.0) mmol/L Calcium 8.8 (8.5-10.1) mg/dl Total Bilirubin 0.3 (0.2-1) mg/dl AST 17 (15-37) U/L ALT 28 (12-78) U/L Alkaline Phosphatase 137 H (45-117) U/L Troponin I < 0.015 (0-0.045) ng/ml Total Protein 6.9 (6.4-8.2) gm/dl Albumin 2.7 L (3.4-5.0) gm/dl Globulin 4.2 H (2.5-4.0) gm/dl Albumin/Globulin Ratio 0.6 L (0.9-2) Lipase 66 L (73-393) U/L 04/19/19 Range/Units 12:02 WBC (4.8-10.8) K/uL RBC (4.7-6.1) M/uL Hgb (14.0-18.0) g/dL Hct (42-52) % MCV (80-100) fL MCH (25-34) pg MCHC (32-36) g/dL RDW Std Deviation (36.4-46.3) fL RDW Coeff of Daquan (11.5-14.5) % Plt Count (130-400) K/uL MPV (7.4-10.4) fL Immature Gran % (Auto) % Neut % (Auto) % Lymph % (Auto) % Charles % (Auto) % Eos % (Auto) % Baso % (Auto) % Immature Gran # (Auto) (0.00-0.02) K/uL Neut # (Auto) (1.4-6.5) K/uL Lymph # (Auto) (1.2-3.4) K/uL Charles # (Auto) (0.11-0.59) K/uL Eos # (Auto) (0-0.5) K/uL Baso # (Auto) (0-0.2) K/uL Absolute Nucleated RBC (0-0) K/uL Nucleated RBC % (auto) % PT (9.0-12.0) Seconds INR (0.9-1.1) APTT (21.0-31.0) Seconds PTT Ratio D-Dimer (0-500) ug/L FEU Sodium (136-145) mmol/L Potassium (3.5-5.1) mmol/L Chloride (98-107) mmol/L Carbon Dioxide (21-32) mmol/L Anion Gap (3-11) BUN (7-18) mg/dl Creatinine (0.6-1.4) mg/dl Est Cr Clr Drug Dosing ml/min Est GFR ( Amer) Est GFR (Non-Af Amer) BUN/Creatinine Ratio (10-20) Glucose (70-99) mg/dl Lactate 1.1 (0.4-2.0) mmol/L Calcium (8.5-10.1) mg/dl Total Bilirubin (0.2-1) mg/dl AST (15-37) U/L ALT (12-78) U/L Alkaline Phosphatase (45-117) U/L Troponin I (0-0.045) ng/ml Total Protein (6.4-8.2) gm/dl Albumin (3.4-5.0) gm/dl Globulin (2.5-4.0) gm/dl Albumin/Globulin Ratio (0.9-2) Lipase (73-393) U/L Imaging Data Radiologist's Impression: Radiology results as stated below per my review and the radiologist's interpretation: XR chest 1V portable HISTORY: Atypical Chest Pain COMPARISON: Chest 02/17/2019. FINDINGS: No pneumothorax. No pleural effusions. The heart is normal in size. Patchy hazy airspace opacities within the left midlung zone and right lung base. This is new from the prior study. No evidence for pulmonary edema. IMPRESSION: There are new hazy airspace opacities within the left midlung zone and right lung base likely representing a pneumonia. Recommend follow-up to ensure reso lution. ACT 112: Negative or not required by law. Electronically signed by: Joshua Guzman M.D. 04/19/2019 9:46 AM CHEST CTA for PULMONARY ARTERIES CT DOSE: 303.58 mGy.cm HISTORY: PE, left pleuritic chest pain TECHNIQUE: Multiaxial CT images of the chest were performed following the intravenous administration of contrast to evaluate the pulmonary arteries. Maximal intensity projection images were also obtained. A dose lowering technique was utilized adhering to the principles of ALARA. COMPARISON STUDY: Chest CT 02/21/2018. FINDINGS: There is again noted an old mild superior endplate compression deformity at T12. Stable 1 cm sclerotic focus at T11. Left-sided nephrolithiasis. The visualized liver and spleen are unremarkable. Bilateral adrenal gland thickening. This could be age-related. Small right and trace left pleural effusions. No mediastinal lymphadenopathy. No definite hilar lymphadenopathy. Mild soft tissue thickening surrounding the right middle and lower lobe bronchi. This results in mild narrowing of the right lower lobe bronchus and approximately the 60% narrowing of the right middle lobe bronchus best seen image 155. No filling defects within the pulmonary arteries to suggest pulmonary embolus. Normal caliber thoracic area with no evidence for dissection. Emphysema. No pneumothorax. Stable linear scarlike density within the right lung apex. Small focal areas consolidation seen within the bilateral lower lobes posteriorly and within the left upper lobe. This likely represents a pneumonia. This is new from the prior study. IMPRESSION: 1. No evidence for pulmonary embolus. 2. There are new focal areas of consolidation seen within the lower lobes and left upper lobe. This likely represents a pneumonia. 3. Soft tissue thickening surrounding the right middle lobe and lower lobe bronchi with moderate narrowing of the right middle lobe bronchus. Follow-up bronchoscopy recommended to exclude the possibility of an underlying lesion. 4. Emphysema. 5. Bilateral pleural effusions. 6. Additional stable findings as described above. ACT 112: Negative or not required by law. Electronically signed by: Joshua Guzman M.D. 04/19/2019 11:32 AM ECG Data Attestation: I personally reviewed and interpreted this ECG as follows: Indication: + chest pain Rate (beats per minute): 66 Rhythm: + normal sinus ECG Intervals/blocks: + Normal QRS, + Short [place] and + Normal QT ECG ST segments: no ST depression and no ST elevation Comparison ECG Date: from (03/02/19) Change: no significant change Blood Pressure Blood Pressure Findings: Elevated blood pressure Blood Pressure Disposition: further management by hospitalist PAULO Narrative This patient comes in as described above peers placed in room B7. He has a history of severe COPD with chronic oxygen requirements and comes in after having left-sided chest pain this occurred this morning when he rolled over he felt something in his left chest. There was no trauma. It does hurt when he breathes. There is no crepitus. He appears in no distress. He has no shortness of breath compared to baseline. He has no lower extremity edema. He has had chronic problems with his hip and wears a brace and is much more mobile lately. No history of blood clots. He is not on any blood thinners. He is a diabetic however after losing weight recently tells me is been taken off his meds. IV access was established, chest x-ray and EKG were obtained multiple blood testing was obtained. He was reassessed frequently. His white count came back significantly elevated at 23,000. He has had no recent fever. He has a chronic cough but is unchanged nonproductive he has no urinary symptoms or any other obvious source of infection. His chest x-ray is concerning for possible infiltrates. I did review a PET scan that he had done at [facility] on 04-13-19 which showed new hypermetabolic bilateral right greater than left lower lobe opacities with small right and left trace pleural effusions most likely representing infection/aspiration inflammation. I did do a CTA here to evaluate for PE given his symptoms and also the elevation d-dimer. The CTA shows b ilateral pneumonia but no evidence of PE. Given his underlying lung disease as well as his elevated white count and his bilateral pneumonia I do think he needs to be admitted. He was given IV Levaquin and blood cultures were obtained as well as lactic acid. I have consulted the [facility] hospitalist to see him for these measures. Continuous Cardiac Monitoring: An order was placed for continuous cardiac monitoring. The monitor shows a rate of 65 with a normal sinus rhythm. Impression & Plan Pneumonia, COPD (chronic obstructive pulmonary disease), Left-sided chest pain, Oxygen dependent Discharge Plan Visit Data Chief Complaint: Rib Injury/Pain Stated Complaint: Rib pain ED Provider: Bravo Riley Discharge Problem: Pneumonia, COPD (chronic obstructive pulmonary disease), Left-sided chest pain, Oxygen dependent Patient Disposition: Being Evaluated by Hospitalist Forms Stand Alone Forms: My [facility] Prescriptions Prescriptions: No Action verapamil 120 mg Tablet Extended Release 120 mg PO DAILY RF: 0 levothyroxine 50 mcg Tablet 50 mcg PO DAILY RF: 0 pantoprazole 40 mg Tablet,Delayed Release (Dr/Ec) 40 mg PO DAILY RF: 0 lisinopril 10 mg Tablet 10 mg PO DAILY RF: 0 Trelegy Ellipta 100-62.5-25 mcg Blister With Device 1 inh INHALATION DAILY RF: 0 sertraline 100 mg Tablet 100 mg PO DAILY RF: 0 montelukast 10 mg Tablet 10 mg PO PM RF: 0 atorvastatin 40 mg tablet 40 mg PO QAM RF: 0 docusate sodium [Colace] 100 mg Capsule 100 mg PO DAILY RF: 0 gabapentin 300 mg capsule 300 mg PO HS RF: 0 metformin 1,000 mg Tablet Extended Release 24hr 1,000 mg PO DAILY RF: 0 albuterol sulfate 2.5 mg /3 mL (0.083 %) Solution For Nebulization 2.5 mg INHALATION TID Qty: 0 RF: 0 ipratropium bromide 0.02 % solution 0.5 mg Inhalation TID Qty: 0 RF: 0 hydroxyzine HCl 50 mg Tablet 50 mg PO Q6 PRN (Reason: anxiety/agitation) RF: 0 acetaminophen 325 mg Tablet 650 mg PO Q6 MDD 3g/24hr PRN (Reason: pain scale 1-4) RF: 0 Referrals Referrals: Stephenson,Jacob [Primary Care Provider] - Discharge Problem: Pneumonia Qualifiers: Pneumonia type: due to unspecified organism Laterality: bilateral Lung location: unspecified part of lung Qualified Code(s): J18.9 - Pneumonia, unspecified organism COPD (chronic obstructive pulmonary disease) Qualifiers: COPD type: unspecified COPD Qualified Code(s): J44.9 - Chronic obstructive pulmonary disease, unspecified The scribe's documentation has been prepared under my direction and personally reviewed by me in its entirety. I confirm that the note above accurately reflects all work, treatment, procedures, and medical decision making performed by me.
--- NOTE | 2019-04-19 09:47 | XRay Report ---
XR chest 1V portable HISTORY: Atypical Chest Pain COMPARISON: Chest 02/17/2019. FINDINGS: No pneumothorax. No pleural effusions. The heart is normal in size. Patchy hazy airspace op acities within the left midlung zone and right lung base. This is new from the prior study. No eviden ce for pulmonary edema. IMPRESSION: There are new hazy airspace opacities within the left midlung zone and right lung base likely represe nting a pneumonia. Recommend follow-up to ensure resolution. ACT 112: Negative or not required by law. Electronically signed by: Joshua Guzman M.D. 04/19/2019 9:46 AM
[2019-04-19 10:14] LABS: Hematocrit (blood only) 33.8 % (42-52); Hemoglobin 11.2 g/dL (14.0-18.0); Mean Corpuscular Hemoglobin 31.7 pg (25-34); Mean Corpuscular Hgb Conc 33.1 g/dL (32-36); Mean Corpuscular Volume 95.8 fL (80-100); Mean Platelet Volume 9.6 fL (7.4-10.4); Platelet Count 376 K/uL (130-400); RDW Coefficient of Variation 13.5 % (11.5-14.5); RDW Standard Deviation 46.8 fL (36.4-46.3); Red Blood Count 3.53 M/uL (4.7-6.1); White Blood Count 23.33 K/uL (4.8-10.8)
[2019-04-19 10:20] LABS: INR 1.1 (0.9-1.1); Partial Thromboplastin Ratio 0.9; Partial Thromboplastin Time 25.2 Seconds (21.0-31.0); Prothrombin Time 11.3 Seconds (9.0-12.0)
[2019-04-19 10:22] LABS: Alanine Aminotransferase 28 U/L (12-78); Albumin Level 2.7 gm/dl (3.4-5.0); Aspartate Aminotransferase 17 U/L (15-37); BUN Creatinine Ratio 18.6 (10-20); Blood Urea Nitrogen 19 mg/dl (7-18); Calcium 8.8 mg/dl (8.5-10.1); Carbon Dioxide 28 mmol/L (21-32); Chloride 103 mmol/L (98-107); Creatinine Clr Calc Pharmacy 68.2 ml/min; Est GFR (African American) 87.7; Est GFR (Non-African American) 75.7; Glucose 100 mg/dl (70-99); Lipase 66 U/L (73-393); Potassium 4.6 mmol/L (3.5-5.1); Sodium 137 mmol/L (136-145)
[2019-04-19 10:27] LABS: Albumin Globulin Ratio 0.6 (0.9-2); Alkaline Phosphatase 137 U/L (45-117); Bilirubin,Total 0.3 mg/dl (0.2-1); Globulin 4.2 gm/dl (2.5-4.0); Total Protein 6.9 gm/dl (6.4-8.2); Troponin I < 0.015 ng/ml (0-0.045)
[2019-04-19 10:31] LABS: D Dimer 1380 ug/L FEU (0-500)
[2019-04-19 10:37] LABS: Basophils # (auto) 0.03 K/uL (0-0.2); Basophils % (auto) 0.1 %; Eosinophils # (auto) 0.15 K/uL (0-0.5); Eosinophils % (auto) 0.6 %; Immature Granulocytes # (auto) 0.06 K/uL (0.00-0.02); Immature Granulocytes % (auto) 0.3 %; Lymphocytes % (auto) 5.1 %; Monocytes # (auto) 1.01 K/uL (0.11-0.59); Monocytes % (auto) 4.3 %; Neutrophils # (auto) 20.88 K/uL (1.4-6.5); Neutrophils % (auto) 89.6 %
[2019-04-19] MEDS ORDERED: OPTIRAY 320 125ml IV PRN (10:41)
--- NOTE | 2019-04-19 11:33 | CT Scan Report ---
CHEST CTA for PULMONARY ARTERIES CT DOSE: 303.58 mGy.cm HISTORY: PE, left pleuritic chest pain TECHNIQUE: Multiaxial CT images of the chest were performed following the intravenous administration of contrast to evaluate the pulmonary arteries. Maximal intensity projection images were also obtaine d. A dose lowering technique was utilized adhering to the principles of ALARA. COMPARISON STUDY: Chest CT 02/21/2018. FINDINGS: There is again noted an old mild superior endplate compression deformity at T12. Stable 1 c m sclerotic focus at T11. Left-sided nephrolithiasis. The visualized liver and spleen are unremarkabl e. Bilateral adrenal gland thickening. This could be age-related. Small right and trace left pleural effusions. No mediastinal lymphadenopathy. No definite hilar lymphadenopathy. Mild soft tissue thicke wanda surrounding the right middle and lower lobe bronchi. This results in mild narrowing of the right lower lobe bronchus and approximately the 60% narrowing of the right middle lobe bronchus best seen image 155. No filling defects within the pulmonary arteries to suggest pulmonary embolus. Normal cr jose antonio thoracic area with no evidence for dissection. Emphysema. No pneumothorax. Stable linear scarlike density within the right lung apex. Small focal areas consolidation seen within the bilateral lower lobes posteriorly and within the left upper lobe. This likely represents a pneumonia. This is new fro m the prior study. IMPRESSION: 1. No evidence for pulmonary embolus. 2. There are new focal areas of consolidation seen within the lower lobes and left upper lobe. This l ikely represents a pneumonia. 3. Soft tissue thickening surrounding the right middle lobe and lower lobe bronchi with moderate narr owing of the right middle lobe bronchus. Follow-up bronchoscopy recommended to exclude the possibilit y of an underlying lesion. 4. Emphysema. 5. Bilateral pleural effusions. 6. Additional stable findings as described above. ACT 112: Negative or not required by law. Electronically signed by: Joshua Guzman M.D. 04/19/2019 11:32 AM
[2019-04-19] MEDS ORDERED: SODIUM CHLORIDE 0.9% 1000ML 1,000 ML IV ONE (11:40)
[2019-04-19] MEDS ORDERED: LEVOFLOXACIN/D5W 750 MG/150 ML BAG IV SCH (11:45)
--- NOTE | 2019-04-19 12:31 | History & Physical Report ---
Date of Service April 19, 2019 Assessment & Plan (1) Pneumonia: Presented with cough with phlegm, pleuritic chest pain and increased shortness of breath CT of the chest showed left upper and lower lobe infiltrate Blood cultures have been taken Received intravenous levofloxacin and will continue-no QT prolongation Has been feeling better in the emergency room Present on Admission?: Yes (2) Left-sided chest pain: Likely secondary to pleurisy Left-sided chest pain mostly with deep breathing No pneumothorax (3) COPD (chronic obstructive pulmonary disease): History of severe COPD on 4 L of oxygen continuously Doubt any exacerbation at this time We will continue current treatment (4) Diabetes mellitus, type II: We will continue current medications We will put him on sliding scale insulin coverage (5) Paroxysmal atrial fibrillation: Heart rate is controlled He is not on any anticoagulation (6) HTN (hypertension): Continue current medication (7) Hypothyroidism: Continue supplement (8) Depression: (9) Chronic right hip pain: History of right hip fracture in February and status post repair History of dislocation in March and status post repositioned Instructions from Ortho: Strict posterior hip precaution Toe-touch nonweightbearing right lower extremity Knee immobilizer to right lower extremity, may remove for hygiene purposes. When in bed we would like knee immobilizer or abduction pillow in place PT/OT DVT prophylaxis Subcu heparin CODE STATUS DNR/DNI (10) Alcohol use: History of Present Illness Chief Complaint: Left-sided chest pain with coughing and shortness of breath Primary Care Provider: [facility] He is a 69-year-old male with significant past medical history including severe COPD with chronic respiratory failure on 4 L nasal cannula oxygen continuously, type 2 diabetes, hypertension, paroxysmal atrial fibrillation and recent right hip fracture status post hemiarthroplasty on 14 February of this year followed by dislocation and repositioned by Ortho in March and was in [facility] for rehab, was brought into the emergency room with left-sided chest pain and associated shortness of breath. Left-sided sharp pain started following deep breathing this morning and associated with increasing shortness of breath. He has chronic cough which has been worse and the pain gets worse with deep breathing. He denies any fever and/or chills, has cough with productive of yellowish phlegm, denies any abdominal pain nausea and or vomiting, denies any increasing pain in the right hip and no numbness and/or tingling involving any extremities. He was noted to have left bilobar pneumonia with chest x-ray and elevated white count of 23,000. Blood cultures were taken and he was started with intravenous Levaquin and was admitted to medical floor for continuation of care Allergies Allergy/AdvReac Type Severity Reaction Status Date / Time turkey Allergy Unknown Verified 03/22/19 11:08 Home Medications Home Medications Medication Instructions Recorded Confirmed Type atorvastatin 40 mg PO QAM 01/28/18 04/19/19 History docusate sodium [Colace] 100 mg PO DAILY 01/28/18 04/19/19 History gabapentin 300 mg PO HS 01/28/18 04/19/19 History metformin 1,000 mg PO DAILY 04/23/18 04/19/19 History albuterol sulfate 2.5 mg INHALATION TID #0 ml 04/30/18 04/19/19 Rx ipratropium bromide 0.5 mg INHALATION TID #0 ml 04/30/18 04/19/19 Rx Trelegy Ellipta 1 inh INHALATION DAILY 02/13/19 04/19/19 History levothyroxine 50 mcg PO DAILY 02/13/19 04/19/19 History lisinopril 10 mg PO DAILY 02/13/19 04/19/19 History montelukast 10 mg PO PM 02/13/19 04/19/19 History pantoprazole 40 mg PO DAILY 02/13/19 04/19/19 History sertraline 100 mg PO DAILY 02/13/19 04/19/19 History verapamil 120 mg PO DAILY 02/13/19 04/19/19 History acetaminophen 650 mg PO Q6 PRN MDD 3g/24hr 02/22/19 04/19/19 History hydroxyzine HCl 50 mg PO Q6 PRN 02/22/19 04/19/19 History Past Med/Surg History Medical History Alcohol use BPH (benign prostatic hyperplasia) Chronic respiratory failure with hypoxia COPD (chronic obstructive pulmonary disease) Depression Diabetes mellitus, type II Dyslipidemia Esophageal stenosis "s/p dilation June 2016" GERD (gastroesophageal reflux disease) HTN (hypertension) Hypothyroidism Leg edema Mood disorder Paroxysmal atrial fibrillation Superficial thrombophlebitis "2009" TIA (transient ischemic attack) "1982" Surgical History History of cataract surgery S/P bronchoscopy Family History Other Diabetes Social History Preferred Language: Macedonian Communication Ability: Effective 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 Machine Operator Required: No Beliefs That Will Affect Care: None marital status: Single Current Living Situation: [facility] Current Living Situation Comment: [facility] Other Information That Helps Us Care for You: No Feels Safe at Home: Yes Safety Concerns: Feels Safe At This Time Smoking Status: Current every day smoker Tobacco Type: cigarettes ; Cigarettes Per Day: 20 ; Do You Dip or Chew Tobacco: No (quit) ; Second Hand Exposure: No ; Tobacco Cessation Education Requested by Patient: No Hx Alcohol Use: Yes Alcohol type: beer Alcohol Intake Frequency Comment: 2 beers a day Hx Substance Use: No Review of Systems Review of Systems: All systems reviewed & are unremarkable except as noted in HPI & below Physical Exam Physical Exam: Lying in bed with minimal discomfort and pain with deep breathing Constitutional: well developed, well nourished, + acute distress (Minimal shortness of breath) and + ill appearing Eyes: PERRL, conjunctivae normal, anicteric sclerae ENMT: external ear and nose normal, oropharynx normal Neck: trachea midline, no thyromegaly Respiratory: + respiratory distress (Minimal distress with pain) Auscultation: + diminished lung sounds and + crackles (Right base and left lung) Cardiovascular: Rate/Rhythm: regular rate and regular rhythm Heart Sounds: no murmur Gastrointestinal (Abdomen): Inspection/Auscultation: abdomen normal to inspection and normal bowel sounds Percussion/Palpation: abdomen soft; abdomen nontender Musculoskeletal: Moderate to severe pain with movement of the right hip Neurologic: moves all extremities; no focal motor deficits Lymphatic: no cervical or axillary lymphadenopathy Results & Data Vital Signs (Past 12 Hours) Vital Signs Temp Pulse Resp BP Pulse Ox 04/19/19 12:12 59 L 24 132/80 97 04/19/19 10:54 61 21 113/53 L 96 04/19/19 09:03 36.4 C L 76 18 111/62 96 Diagnostic Findings PET Scan:04/13/2019 Previously seen spiculated left upper lobe nodular opacity is not well seen on this exam, likely resolved. New hypermetabolic bilateral, right greater than left lower lobe opacities with small right and trace left pleural effusions most likely representing infection/aspiration or inflammation in the acute setting. Follow-up to resolution is recommended. No FDG avid malignancy in the abdomen or pelvis. (1) COPD (chronic obstructive pulmonary disease) COPD type: unspecified COPD Qualified Code(s): J44.9 - Chronic obstructive pulmonary disease, unspecified (2) Pneumonia Laterality: bilateral Lung location: unspecified part of lung Pneumonia type: due to unspecified organism Qualified Code(s): J18.9 - Pneumonia, unspecified organism
[2019-04-19] MEDS ORDERED: ACETAMINOPHEN 325 MG TAB PO PRN (14:11)
[2019-04-19] MEDS: PANTOprazole 40 MG TAB PO SCH (14:34)
[2019-04-19] MEDS: lisinopriL 10 MG TAB PO SCH (14:35)
[2019-04-19] MEDS: DOCUSATE SODIUM 100 MG CAP PO SCH (14:35)
[2019-04-19] MEDS: VERAPAMIL HCL 120 MG TABCR PO SCH (14:35)
[2019-04-19] MEDS: ENOXAPARIN INJ 40 MG/0.4 ML SYR SQ SCH (16:17)
[2019-04-19] MEDS: LACTOBACILLUS ACIDOPHILUS (FLORANEX) TAB PO SCH (16:18)
[2019-04-19] MEDS: ALBUTEROL 0.083% NEBU SOLN 3 ML VIAL NEB PRN (17:11)
[2019-04-19] MEDS: INSULIN ASPART 100 UNITS/ML 3 ML PEN SC SCH ×2 (17:24→21:09)
[2019-04-19] MEDS: IPRATROPIUM BROMIDE NEB SOLN 0.02% 2.5 ML VIAL INH SCH (18:57)
[2019-04-19] MEDS: ALBUTEROL 0.083% NEBU SOLN 3 ML VIAL INH SCH (18:57)
[2019-04-19] MEDS: MONTELUKAST SODIUM 10 MG TABLET PO SCH (20:15)
[2019-04-19] MEDS: GABAPENTIN 300 MG CAP PO SCH (20:15)
[2019-04-20] MEDS: ALBUTEROL 0.083% NEBU SOLN 3 ML VIAL NEB PRN ×2 (00:29→10:53)
[2019-04-20] MEDS: LEVOTHYROXINE SODIUM 50 MCG TABLET PO SCH (05:06)
[2019-04-20 06:05] LABS: Hematocrit (blood only) 31.2 % (42-52); Hemoglobin 10.5 g/dL (14.0-18.0); Mean Corpuscular Hemoglobin 32.3 pg (25-34); Mean Corpuscular Hgb Conc 33.7 g/dL (32-36); Mean Platelet Volume 10.1 fL (7.4-10.4); Platelet Count 326 K/uL (130-400); RDW Coefficient of Variation 13.5 % (11.5-14.5); RDW Standard Deviation 47.3 fL (36.4-46.3); Red Blood Count 3.25 M/uL (4.7-6.1); White Blood Count 25.52 K/uL (4.8-10.8)
[2019-04-20 06:30] LABS: Basophils # (auto) 0.02 K/uL (0-0.2); Basophils % (auto) 0.1 %; Eosinophils # (auto) 0.09 K/uL (0-0.5); Eosinophils % (auto) 0.4 %; Immature Granulocytes # (auto) 0.11 K/uL (0.00-0.02); Immature Granulocytes % (auto) 0.4 %; Lymphocytes # (auto) 1.76 K/uL (1.2-3.4); Lymphocytes % (auto) 6.9 %; Monocytes % (auto) 7.4 %; Neutrophils # (auto) 21.64 K/uL (1.4-6.5); Neutrophils % (auto) 84.8 %; Ovalocytes 1+
[2019-04-20 06:35] LABS: BUN Creatinine Ratio 15.1 (10-20); Calcium 8.8 mg/dl (8.5-10.1); Creatinine Clr Calc Pharmacy 63.1 ml/min; Est GFR (African American) 85.7; Est GFR (Non-African American) 73.9; Magnesium 1.5 mg/dl (1.8-2.4); Potassium 4.2 mmol/L (3.5-5.1)
[2019-04-20] MEDS: IPRATROPIUM BROMIDE NEB SOLN 0.02% 2.5 ML VIAL INH SCH ×3 (07:16→19:19)
[2019-04-20] MEDS: ALBUTEROL 0.083% NEBU SOLN 3 ML VIAL INH SCH ×3 (07:16→19:19)
[2019-04-20] MEDS: UMECLIDINIUM/VILANTEROL 62.5/25MCG 7 PUFFS/INHALER INH SCH (07:37)
[2019-04-20] MEDS: DOCUSATE SODIUM 100 MG CAP PO SCH (07:38)
[2019-04-20] MEDS: LACTOBACILLUS ACIDOPHILUS (FLORANEX) TAB PO SCH ×3 (07:38→16:21)
[2019-04-20] MEDS: PANTOprazole 40 MG TAB PO SCH (07:38)
[2019-04-20] MEDS: lisinopriL 10 MG TAB PO SCH (07:38)
[2019-04-20] MEDS: FLUTICASONE FUROATE 100MCG 14 PUFFS/INHALER INH SCH (07:39)
[2019-04-20] MEDS: ATORVASTATIN 40 MG TAB PO SCH (07:39)
[2019-04-20] MEDS: SERTRALINE HCL 100 MG TABLET PO SCH (07:40)
[2019-04-20] MEDS: VERAPAMIL HCL 120 MG TABCR PO SCH (07:40)
[2019-04-20] MEDS: INSULIN ASPART 100 UNITS/ML 3 ML PEN SC SCH ×4 (08:44→20:54)
[2019-04-20] MEDS: MAGNESIUM SULFATE / D5W 1 GM/100 ML BAG IV SCH ×2 (10:55→11:57)
[2019-04-20] MEDS: LEVOFLOXACIN/D5W 750 MG/150 ML BAG IV SCH (13:04)
--- NOTE | 2019-04-20 14:12 | Electrocardiogram Report ---
Test Reason : Blood Pressure : / mmHG Vent. Rate : 066 BPM Atrial Rate : 066 BPM P-R Int : 094 ms QRS Dur : 084 ms QT Int : 416 ms P-R-T Axes : -17 080 070 degrees QTc Int : 436 ms Sinus rhythm with short NC Incomplete right bundle branch block Otherwise normal ECG When compared with ECG of 18-FEB-2019 07:23, No significant change Confirmed by Onel Sanchez ([id number]) on 04/20/2019 2:12:29 PM Referred By: [facility] Confirmed By:Onel Sanchez
[2019-04-20] MEDS: ENOXAPARIN INJ 40 MG/0.4 ML SYR SQ SCH (16:21)
--- NOTE | 2019-04-20 17:23 | Hospitalist Progress Note ---
Date of Service April 20, 2019 Assessment & Plan (1) Pneumonia: Presented with cough with phlegm, pleuritic chest pain and increased shortness of breath CT of the chest showed left upper and lower lobe infiltrate Patient was started with levofloxacin Follow blood cultures, monitor clinically Chronic hypoxemic respiratory failure: Underlying advanced COPD on 4 L oxygen continuous No evidence of COPD exacerbation, no wheeze Continue nebulizer treatment Patient continues to smoke 8-10 cigarettes a day Strongly encouraged smoking cessation (2) Left-sided chest pain: Symptom has resolved Secondary to pneumonia No evidence of any acute cardiac issue (3) COPD (chronic obstructive pulmonary disease): History of severe COPD on 4 L of oxygen continuously (4) Diabetes mellitus, type II: Insulin sliding scale coverage (5) Paroxysmal atrial fibrillation: Heart rate is controlled He is not on any anticoagulation (6) HTN (hypertension): Continue current medication (7) Hypothyroidism: Continue supplement (8) Depression: (9) Chronic right hip pain: History of right hip fracture in February and status post repair History of dislocation in March and status post repositioned Instructions from Ortho: Strict posterior hip precaution Toe-touch nonweightbearing right lower extremity Knee immobilizer to right lower extremity, may remove for hygiene purposes. When in bed we would like knee immobilizer or abduction pillow in place -PT/OT-evaluation requested, appreciate input Commence skilled rehab Patient was at [facility] for recent hip surgery Does not want to return back to [facility] for rehab Adamant about returning back to his independent apartment with home health home PT DVT prophylaxis Subcu heparin CODE STATUS DNR/DNI (10) Alcohol use: Admission and Anticipated Discharge Date Admission Date: April 19, 2019 Subjective Continues to have nonproductive cough On 4 L oxygen via nasal cannula, patient's baseline Patient reports of feeling better since admission No fever or chills Review of Systems Review of Systems: All systems reviewed & are unremarkable except as noted in HPI & below Respiratory: + cough and + wheezing; no dyspnea, no dyspnea on exertion, no pain with cough and no sputum production Cardiovascular: no chest pain, no orthopnea, no palpitations and no lightheadedness Gastrointestinal: no abdominal pain, no nausea and no vomiting Neurologic: no dizziness, no syncope, no headache(s), no abnormal speech and no confusion Physical Exam Constitutional: WD/WN, vitals as above + ill appearing; no acute distress Eyes: PERRL, conjunctivae normal, anicteric sclerae ENMT: external ear and nose normal, oropharynx normal Neck: trachea midline, no thyromegaly Respiratory: + cough Auscultation: + diminished lung sounds, + crackles, + rales, + rhonchi and + wheezes Cardiovascular: RRR, no murmur, no edema Gastrointestinal (Abdomen): normal bowel sounds, soft, nontender, no hepatosplenomegaly Musculoskeletal: no cyanosis or clubbing, extremities motor strength 5/5 Skin: no rashes, warm and dry Neurologic: PERRL, EOMI, accommodation nl, no face palsy, no dysarthria Psychiatric: A+Ox3, euthymic affect Results & Data ([facility]) Vital Signs (Past 12 Hours) Vital Signs Temp Pulse Pulse Resp BP Pulse Ox 04/20/19 16:00 60 04/20/19 15:32 36.6 C 66 18 120/74 93 04/20/19 12:49 73 18 98 04/20/19 12:03 36.4 C L 61 20 109/65 96 04/20/19 10:53 60 18 97 04/20/19 08:00 68 04/20/19 07:44 36.6 C 68 20 110/64 94 04/20/19 07:16 67 18 96 Diagnostic Findings PET Scan:04/13/2019 Previously seen spiculated left upper lobe nodular opacity is not well seen on this exam, likely resolved. New hypermetabolic bilateral, right greater than left lower lobe opacities with small right and trace left pleural effusions most likely representing infection/aspiration or inflammation in the acute setting. Follow-up to resolution is recommended. No FDG avid malignancy in the abdomen or pelvis. (1) COPD (chronic obstructive pulmonary disease) COPD type: unspecified COPD Qualified Code(s): J44.9 - Chronic obstructive pulmonary disease, unspecified (2) Pneumonia Laterality: bilateral Lung location: unspecified part of lung Pneumonia type: due to unspecified organism Qualified Code(s): J18.9 - Pneumonia, unspecified organism
[2019-04-20] MEDS: GABAPENTIN 300 MG CAP PO SCH (20:55)
[2019-04-20] MEDS: MONTELUKAST SODIUM 10 MG TABLET PO SCH (20:56)
[2019-04-21] MEDS: LEVOTHYROXINE SODIUM 50 MCG TABLET PO SCH (06:02)
[2019-04-21] MEDS: IPRATROPIUM BROMIDE NEB SOLN 0.02% 2.5 ML VIAL INH SCH (07:10)
[2019-04-21] MEDS: ALBUTEROL 0.083% NEBU SOLN 3 ML VIAL INH SCH (07:11)
[2019-04-21 07:20] LABS: Basophils # (auto) 0.01 K/uL (0-0.2); Basophils % (auto) 0.1 %; Eosinophils # (auto) 0.21 K/uL (0-0.5); Eosinophils % (auto) 1.4 %; Hematocrit (blood only) 31.9 % (42-52); Hemoglobin 10.4 g/dL (14.0-18.0); Immature Granulocytes # (auto) 0.04 K/uL (0.00-0.02); Immature Granulocytes % (auto) 0.3 %; Lymphocytes # (auto) 1.23 K/uL (1.2-3.4); Lymphocytes % (auto) 8.1 %; Mean Corpuscular Hemoglobin 30.7 pg (25-34); Mean Corpuscular Hgb Conc 32.6 g/dL (32-36); Mean Corpuscular Volume 94.1 fL (80-100); Mean Platelet Volume 9.9 fL (7.4-10.4); Monocytes # (auto) 1.53 K/uL (0.11-0.59); Neutrophils # (auto) 12.21 K/uL (1.4-6.5); Neutrophils % (auto) 80.1 %; Platelet Count 318 K/uL (130-400); RDW Coefficient of Variation 13.5 % (11.5-14.5); RDW Standard Deviation 46.9 fL (36.4-46.3); Red Blood Count 3.39 M/uL (4.7-6.1); White Blood Count 15.23 K/uL (4.8-10.8)
[2019-04-21 07:47] LABS: BUN Creatinine Ratio 12.8 (10-20); Calcium 8.8 mg/dl (8.5-10.1); Creatinine Clr Calc Pharmacy 56.4 ml/min; Est GFR (African American) 76.7; Est GFR (Non-African American) 66.2; Potassium 4.3 mmol/L (3.5-5.1)
[2019-04-21] MEDS: ATORVASTATIN 40 MG TAB PO SCH (08:09)
[2019-04-21] MEDS: INSULIN ASPART 100 UNITS/ML 3 ML PEN SC SCH ×4 (08:09→21:26)
[2019-04-21] MEDS: SERTRALINE HCL 100 MG TABLET PO SCH (08:09)
[2019-04-21] MEDS: PANTOprazole 40 MG TAB PO SCH (08:09)
[2019-04-21] MEDS: LACTOBACILLUS ACIDOPHILUS (FLORANEX) TAB PO SCH ×3 (08:10→17:24)
[2019-04-21] MEDS: DOCUSATE SODIUM 100 MG CAP PO SCH (08:10)
[2019-04-21] MEDS: lisinopriL 10 MG TAB PO SCH (08:10)
[2019-04-21] MEDS: VERAPAMIL HCL 120 MG TABCR PO SCH (08:10)
[2019-04-21] MEDS: UMECLIDINIUM/VILANTEROL 62.5/25MCG 7 PUFFS/INHALER INH SCH (08:11)
[2019-04-21] MEDS: FLUTICASONE FUROATE 100MCG 14 PUFFS/INHALER INH SCH (08:11)
[2019-04-21] MEDS: LEVOFLOXACIN/D5W 750 MG/150 ML BAG IV SCH (12:25)
[2019-04-21] MEDS: ALBUT/IPRATROP 3MG/0.5MG NEB 3 ML VIAL NEB SCH ×2 (13:20→19:31)
[2019-04-21] MEDS: ENOXAPARIN INJ 40 MG/0.4 ML SYR SQ SCH (17:19)
--- NOTE | 2019-04-21 18:10 | Hospitalist Progress Note ---
Date of Service April 21, 2019 Assessment & Plan (1) Pneumonia: Presented with cough with phlegm, pleuritic chest pain and increased shortness of breath CT of the chest showed left upper and lower lobe infiltrate Patient was started with levofloxacin-changed to p.o. Levaquin complete total 10 days of treatment Patient clinically continues to improve, hypoxia resolved, respiratory status to his baseline Leukocytosis continues to improve No fever or chills Chronic hypoxemic respiratory failure: Underlying advanced COPD on 4 L oxygen continuous No evidence of COPD exacerbation, no wheeze Continue nebulizer treatment Patient continues to smoke 8-10 cigarettes a day Strongly encouraged smoking cessation (2) Left-sided chest pain: Symptom has resolved Secondary to pneumonia No evidence of any acute cardiac issue (3) COPD (chronic obstructive pulmonary disease): History of severe COPD on 4 L of oxygen continuously With ongoing smoking history (4) Diabetes mellitus, type II: Insulin sliding scale coverage (5) Paroxysmal atrial fibrillation: Heart rate is controlled He is not on any anticoagulation- (6) HTN (hypertension): Continue current medication (7) Hypothyroidism: Continue supplement (8) Depression: (9) Chronic right hip pain: History of right hip fracture in February and status post repair History of dislocation in March and status post repositioned Instructions from Ortho: Strict posterior hip precaution Toe-touch nonweightbearing right lower extremity Knee immobilizer to right lower extremity, may remove for hygiene purposes. 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 Plan to discharge home in next 1-2 days once respiratory status improves to baseline (10) Alcohol use: Admission and Anticipated Discharge Date Admission Date: April 19, 2019 Subjective Patient sitting up on edge of bed, appears to be comfortable Has nonproductive cough, which is chronic per patient he had this cough for" years"(history of chronic heavy smoking/current smoker as well) No fever or chills, Denies of any shortness of breath with activity Vitals been stable On 4 L oxygen via nasal cannula,-at his home setting Does not have pain or discomfort on hip Wants to return home after discharge from hospital Adamant about not returning back to [facility] for rehab Review of Systems Review of Systems: All systems reviewed & are unremarkable except as noted in HPI & below Constitutional: no fever, no chills, no fatigue and no weakness Respiratory: + cough (Chronic); no dyspnea on exertion, no sputum production and no wheezing Cardiovascular: no chest pain, no dyspnea, no orthopnea, no palpitations, no lightheadedness, no syncope and no edema Physical Exam Constitutional: WD/WN, vitals as above + ill appearing; no acute distress Eyes: PERRL, conjunctivae normal, anicteric sclerae ENMT: external ear and nose normal, oropharynx normal Neck: trachea midline, no thyromegaly Respiratory: + cough Auscultation: + diminished lung sounds Cardiovascular: RRR, no murmur, no edema Gastrointestinal (Abdomen): normal bowel sounds, soft, nontender, no hepatosplenomegaly Musculoskeletal: no cyanosis or clubbing, extremities motor strength 5/5 Skin: no rashes, warm and dry Neurologic: PERRL, EOMI, accommodation nl, no face palsy, no dysarthria Psychiatric: A+Ox3, euthymic affect Results & Data ([facility]) Vital Signs (Past 12 Hours) Vital Signs Temp Pulse Pulse Resp BP BP Pulse Ox 04/21/19 16:43 74 04/21/19 15:56 36.8 C 65 18 92/56 L 96 04/21/19 13:20 71 20 99 04/21/19 11:37 36.5 C 77 20 101/63 97 04/21/19 08:28 63 04/21/19 07:41 36.6 C 68 16 116/58 L 94 04/21/19 07:11 63 18 97 (1) Pneumonia Laterality: bilateral Lung location: unspecified part of lung Pneumonia type: due to unspecified organism Qualified Code(s): J18.9 - Pneumonia, unspecified organism (2) COPD (chronic obstructive pulmonary disease) COPD type: unspecified COPD Qualified Code(s): J44.9 - Chronic obstructive pulmonary disease, unspecified
[2019-04-21] MEDS: GABAPENTIN 300 MG CAP PO SCH (20:59)
[2019-04-21] MEDS: MONTELUKAST SODIUM 10 MG TABLET PO SCH (20:59)
[2019-04-22] MEDS: LEVOTHYROXINE SODIUM 50 MCG TABLET PO SCH (05:54)
[2019-04-22] MEDS: ALBUT/IPRATROP 3MG/0.5MG NEB 3 ML VIAL NEB SCH ×2 (07:05→13:25)
[2019-04-22 07:14] LABS: Basophils # (auto) 0.03 K/uL (0-0.2); Basophils % (auto) 0.3 %; Eosinophils # (auto) 0.25 K/uL (0-0.5); Eosinophils % (auto) 2.2 %; Hematocrit (blood only) 32.3 % (42-52); Hemoglobin 10.6 g/dL (14.0-18.0); Immature Granulocytes # (auto) 0.03 K/uL (0.00-0.02); Immature Granulocytes % (auto) 0.3 %; Lymphocytes # (auto) 1.36 K/uL (1.2-3.4); Lymphocytes % (auto) 12.2 %; Mean Corpuscular Hemoglobin 30.8 pg (25-34); Mean Corpuscular Hgb Conc 32.8 g/dL (32-36); Mean Corpuscular Volume 93.9 fL (80-100); Mean Platelet Volume 9.8 fL (7.4-10.4); Monocytes % (auto) 9.9 %; Neutrophils # (auto) 8.35 K/uL (1.4-6.5); Neutrophils % (auto) 75.1 %; Platelet Count 364 K/uL (130-400); RDW Coefficient of Variation 13.6 % (11.5-14.5); RDW Standard Deviation 46.8 fL (36.4-46.3); Red Blood Count 3.44 M/uL (4.7-6.1); White Blood Count 11.12 K/uL (4.8-10.8)
[2019-04-22 07:48] LABS: BUN Creatinine Ratio 14.8 (10-20); Creatinine Clr Calc Pharmacy 59.5 ml/min; Est GFR (African American) 81.9; Est GFR (Non-African American) 70.6; Potassium 4.1 mmol/L (3.5-5.1)
[2019-04-22] MEDS: LACTOBACILLUS ACIDOPHILUS (FLORANEX) TAB PO SCH ×2 (08:03→11:41)
[2019-04-22] MEDS: DOCUSATE SODIUM 100 MG CAP PO SCH (08:03)
[2019-04-22] MEDS: PANTOprazole 40 MG TAB PO SCH (08:03)
[2019-04-22] MEDS: VERAPAMIL HCL 120 MG TABCR PO SCH (08:03)
[2019-04-22] MEDS: ATORVASTATIN 40 MG TAB PO SCH (08:03)
[2019-04-22] MEDS: lisinopriL 10 MG TAB PO SCH (08:03)
[2019-04-22] MEDS: UMECLIDINIUM/VILANTEROL 62.5/25MCG 7 PUFFS/INHALER INH SCH (08:04)
[2019-04-22] MEDS: FLUTICASONE FUROATE 100MCG 14 PUFFS/INHALER INH SCH (08:04)
[2019-04-22] MEDS: SERTRALINE HCL 100 MG TABLET PO SCH (08:04)
[2019-04-22] MEDS: INSULIN ASPART 100 UNITS/ML 3 ML PEN SC SCH ×2 (08:07→11:59)
[2019-04-22] MEDS ORDERED: levoFLOXacin 750 MG TAB PO SCH (12:00)
--- NOTE | 2019-04-22 17:08 | Discharge Summary ---
Date of Service April 22, 2019 Admission HPI Per Admitting Provider He is a 69-year-old male with significant past medical history including severe COPD with chronic respiratory failure on 4 L nasal cannula oxygen continuously, type 2 diabetes, hypertension, paroxysmal atrial fibrillation and recent right hip fracture status post hemiarthroplasty on 14 February of this year followed by dislocation and repositioned by Ortho in March and was in [facility] for rehab, was brought into the emergency room with left-sided chest pain and associated shortness of breath. Left-sided sharp pain started following deep breathing this morning and associated with increasing shortness of breath. He has chronic cough which has been worse and the pain gets worse with deep breathing. He denies any fever and/or chills, has cough with productive of yellowish phlegm, denies any abdominal pain nausea and or vomiting, denies any increasing pain in the right hip and no numbness and/or tingling involving any extremities. He was noted to have left bilobar pneumonia with chest x-ray and elevated white count of 23,000. Blood cultures were taken and he was started with intravenous Levaquin and was admitted to medical floor for continuation of care Admission Exam Per Admitting Provider Physical Exam: Lying in bed with minimal discomfort and pain with deep breathing Constitutional: well developed, well nourished, + acute distress (Minimal shortness of breath) and + ill appearing Eyes: PERRL, conjunctivae normal, anicteric sclerae ENMT: external ear and nose normal, oropharynx normal Neck: trachea midline, no thyromegaly Respiratory: + respiratory distress (Minimal distress with pain) Auscultation: + diminished lung sounds and + crackles (Right base and left lung) Cardiovascular: Rate/Rhythm: regular rate and regular rhythm Heart Sounds: no murmur Gastrointestinal: Inspection/Auscultation: abdomen normal to inspection and normal bowel sounds Percussion/Palpation: abdomen soft; abdomen nontender Musculoskeletal: Moderate to severe pain with movement of the right hip Neurologic: moves all extremities; no focal motor deficits Lymphatic: no cervical or axillary lymphadenopathy Principal Diagnosis Pneumonia: Chronic hypoxemic respiratory failure: Left-sided chest pain: COPD (chronic obstructive pulmonary disease): Diabetes mellitus, type II: Paroxysmal atrial fibrillation: HTN (hypertension): Hypothyroidism: Depression: Chronic right hip pain: Discharge Exam Constitutional: WD/WN, vitals as above + ill appearing; no acute distress Eyes: PERRL, conjunctivae normal, anicteric sclerae ENMT: external ear and nose normal, oropharynx normal Neck: trachea midline, no thyromegaly Respiratory: + cough Auscultation: + diminished lung sounds Cardiovascular: RRR, no murmur, no edema Gastrointestinal: normal bowel sounds, soft, nontender, no hepatosplenomegaly Musculoskeletal: no cyanosis or clubbing, extremities motor strength 5/5 Skin: no rashes, warm and dry Neurologic: PERRL, EOMI, accommodation nl, no face palsy, no dysarthria Psychiatric: A+Ox3, euthymic affect Discharge Data Allergies Allergy/AdvReac Type Severity Reaction Status Date / Time turkey Allergy Unknown Verified 03/22/19 11:08 Consultations 04/19/19 11:51 ED Decision to Admit Stat Ordered Studies 04/19/19 10:30 CT angio chest PE protocol Stat XR chest 1V portable HISTORY: Atypical Chest Pain COMPARISON: Chest 02/17/2019. FINDINGS: No pneumothorax. No pleural effusions. The heart is normal in size. Patchy hazy airspace opacities within the left midlung zone and right lung base. This is new from the prior study. No evidence for pulmonary edema. IMPRESSION: There are new hazy airspace opacities within the left midlung zone and right lung base likely representing a pneumonia. Recommend follow-up to ensure resolution. ACT 112: Negative or not required by law. Electronically signed by: Joshua Guzman M.D. 04/19/2019 9:46 AM Dictated: 04/19/19 0945 Transcribed: 04/19/1945 CHEST CTA for PULMONARY ARTERIES CT DOSE: 303.58 mGy.cm HISTORY: PE, left pleuritic chest pain TECHNIQUE: Multiaxial CT images of the chest were performed following the intravenous administration of contrast to evaluate the pulmonary arteries. Maximal intensity projection images were also obtained. A dose lowering technique was utilized adhering to the principles of ALARA. COMPARISON STUDY: Chest CT 02/21/2018. FINDINGS: There is again noted an old mild superior endplate compression deformity at T12. Stable 1 cm sclerotic focus at T11. Left-sided nephrolithiasis. The visualized liver and spleen are unremarkable. Bilateral adrenal gland thickening. This could be age-related. Small right and trace left pleural effusions. No mediastinal lymphadenopathy. No definite hilar lymphadenopathy. Mild soft tissue thickening surrounding the right middle and lower lobe bronchi. This results in mild narrowing of the right lower lobe bronchus and approximately the 60% narrowing of the right middle lobe bronchus best seen image 155. No filling defects within the pulmonary arteries to suggest pulmonary embolus. Normal caliber thoracic area with no evidence for dissection. Emphysema. No pneumothorax. Stable linear scarlike density within the right lung apex. Small focal areas consolidation seen within the bilateral lower lobes posteriorly and within the left upper lobe. This likely represents a pneumonia. This is new from the prior study. IMPRESSION: 1. No evidence for pulmonary embolus. 2. There are new focal areas of consolidation seen within the lower lobes and left upper lobe. This likely represents a pneumonia. 3. Soft tissue thickening surrounding the right middle lobe and lower lobe bronchi with moderate narrowing of the right middle lobe bronchus. Follow-up bronchoscopy recommended to exclude the possibility of an underlying lesion. 4. Emphysema. 5. Bilateral pleural effusions. 6. Additional stable findings as described above. ACT 112: Negative or not required by law. Electronically signed by: Joshua Guzman M.D. 04/19/2019 11:32 AM Dictated: 04/19/19 1115 Transcribed: 04/19/19 1115 Hospital Course (1) Pneumonia: Presented with cough with phlegm, pleuritic chest pain and increased shortness of breath CT of the chest showed left upper and lower lobe infiltrate Patient was started with levofloxacin-changed to p.o. Will continue Levaquin on discharge. Patient clinically continues to improve, hypoxia resolved, respiratory status to his baseline Leukocytosis continues to improve No fever or chills Chronic hypoxemic respiratory failure: Underlying advanced COPD on 4 L oxygen continuous No evidence of COPD exacerbation, no wheeze Continue nebulizer treatment Patient continues to smoke 8-10 cigarettes a day Strongly encouraged smoking cessation (2) Left-sided chest pain: Symptom has resolved Secondary to pneumonia No evidence of any acute cardiac issue (3) COPD (chronic obstructive pulmonary disease): History of severe COPD on 4 L of oxygen continuously With ongoing smoking history (4) Diabetes mellitus, type II: Insulin sliding scale coverage (5) Paroxysmal atrial fibrillation: Heart rate is controlled He is not on any anticoagulation- (6) HTN (hypertension): Continue current medication (7) Hypothyroidism: Continue supplement (8) Depression: (9) Chronic right hip pain: History of right hip fracture in February and status post repair History of dislocation in March and status post repositioned Instructions from Ortho: Strict posterior hip precaution Toe-touch nonweightbearing right lower extremity Knee immobilizer to right lower extremity, may remove for hygiene purposes. When in bed we would like knee immobilizer or abduction pillow in place Refused to go back to rehab Discussed with patient that it is not safe to go home since he had 2 admission due to fall that led to injury He understands that there is a risk that he can have a major fall again He said that he has been to his appartment for 3 months, his rent his behind and he had some stuff that need to take care at home Will discharge home with home health services DVT prophylaxis Subcu Lovenox CODE STATUS DNR/DNI Disposition: Patient was at [facility] for recent hip surgery Does not want to return back to [facility] for rehab Adamant about returning back to his independent apartment with home health home PT (10) Alcohol use: Total Time Total Time Spent Total Time Spent (In Minutes): 35 minutes Total Time Includes: Examination of the Patient, Discharge Planning, Medication Reconciliation, Communication With Other Providers and Other Discharge Plan Discharge Items Patient Disposition: Home - Home Health Services Reason For Visit: LT SIDED CHEST PAIN-PLEURISY,PNEUMONIA Discharge Diagnosis: Pneumonia: Chronic hypoxemic respiratory failure: Left-sided chest pain: COPD (chronic obstructive pulmonary disease): Diabetes mellitus, type II: Paroxysmal atrial fibrillation: HTN (hypertension): Hypothyroidism: Depression: Chronic right hip pain: Activity: As commented below Non-emergency contact: Primary Care Provider Call non-emergency contact if: you have any medication questions Follow-up/Referrals: [facility] [Primary Care Provider] - Diet: Heart Healthy Addtl Attending Provider Instructions: Refused to go back to rehab Follow up with your primary care provider within 1 week Continue physical and occupational therapy Continue oxygen supplement Fall precaution Complete the course of the antibiotic Counseling on smoking cessation Toe-touch nonweightbearing right lower extremity Knee immobilizer to right lower extremity, may remove for hygiene purposes. When in bed we would like knee immobilizer or abduction pillow in place Pending Studies at Discharge: No Stand-Alone Forms: [employer], Smoking Cessation Medications and DC Order Prescriptions: New levofloxacin 750 mg Tablet 750 mg PO Q24H 5 Days Qty: 5 RF: 0 Lactobacillus acidoph-L.bulgar [Floranex] 1 million cell Tablet 4 tab PO TIDM 5 Days Qty: 20 RF: 0 guaifenesin 200 mg tablet 200 mg PO TID PRN (Reason: cough) Qty: 15 RF: 0 Continued verapamil 120 mg Tablet Extended Release 120 mg PO DAILY RF: 0 levothyroxine 50 mcg Tablet 50 mcg PO DAILY RF: 0 pantoprazole 40 mg Tablet,Delayed Release (Dr/Ec) 40 mg PO DAILY RF: 0 lisinopril 10 mg Tablet 10 mg PO DAILY RF: 0 Trelegy Ellipta 100-62.5-25 mcg Blister With Device 1 inh INHALATION DAILY RF: 0 sertraline 100 mg Tablet 100 mg PO DAILY RF: 0 montelukast 10 mg Tablet 10 mg PO PM RF: 0 atorvastatin 40 mg tablet 40 mg PO QAM RF: 0 docusate sodium [Colace] 100 mg Capsule 100 mg PO DAILY RF: 0 gabapentin 300 mg capsule 300 mg PO HS RF: 0 metformin 1,000 mg Tablet Extended Release 24hr 1,000 mg PO DAILY RF: 0 albuterol sulfate 2.5 mg /3 mL (0.083 %) Solution For Nebulization 2.5 mg INHALATION TID Qty: 0 RF: 0 ipratropium bromide 0.02 % solution 0.5 mg Inhalation TID Qty: 0 RF: 0 hydroxyzine HCl 50 mg Tablet 50 mg PO Q6 PRN (Reason: anxiety/agitation) RF: 0 acetaminophen 325 mg Tablet 650 mg PO Q6 MDD 3g/24hr PRN (Reason: pain scale 1-4) RF: 0 Discharge Orders: Discharge Order (Routine); Ordered 04/22/19 Ordered By: Rory Pollard Admission Data Admit Date/Time: 04/19/19 12:32 Attending Provider: Rory Pollard Admit Provider: Shalini Madsen Primary Care Provider: Jacob Barrera Other Providers: Shalini Madsen ; Ria Hammer Other Interventions: Discharge Summary Assessment (RN) Last Done: 04/22/19 16:31 DC Date/Time DO NOT enter until pt leaves facility: 04/22/19 17:00
== END 2019-04-22 17:00 | disposition home or self-care (01) | DRG 194 ==
LOC: ED 09:13 → 2N 12:32 → SUATTDRO 12:32 → 2N 14:00

== ENCOUNTER 2020-05-24 03:52 | Inpatient (IN) ==
[2020-05-24] MEDS ORDERED: ALBUT/IPRATROP 3MG/0.5MG NEB 3 ML VIAL NEB ONE (04:04)
[2020-05-24] MEDS ORDERED: methylPREDNISolone 125 MG/2 ML VIAL ONE (04:05)
[2020-05-24] MEDS ORDERED: MAGNESIUM SULFATE / D5W 1 GM/100 ML BAG IV STA (04:05)
--- NOTE | 2020-05-24 04:09 | Emergency Department Note ---
Impression & Plan Acute exacerbation of chronic obstructive pulmonary disease ED Provider Note Name: BRYNN QUIROGA Age: 70 Sex: M Arrives Via: Ambulance Informant: Patient ED Provider: All Deng MD Chief Complaint: shortness of breath Impression: Acute Exacerbation of Chronic Obstructive Pulmonary Disease Medical Decision Makin yr old male with severe emphysema known to me from previous visit last year. Worsening shortness of breath over the last few weeks, acuity worse this weekend. Very tight wheezing on evaluation. Hour neb with improvement along w ith mag IV, already had solu-medrol IV by EMS. Despite improvement he is still breathing quite hard and is not at level for discharge. He is not hypoxic on his normal NC O2 and other vitals OK. I do not feel this is consistent with PE nor dissection. He is not septic. No evidence ACS at this time. Will given single dose Doxy IV, though without fever, wbc elevation I do not feel blood cultures indicated. Prior Medical Record and Triage/Nursing Notes reviewed by Me Additional history obtained from chart Differentials:Reactive airway disease, pneumonia, pneumothorax, COPD, CHF, infections, cardiac ischemia, pulmonary embolism, musculoskeletal, gastroi ntestinal, as well as other pathologies. Vital Signs: reviewed and remarkable for no significant abnormalities Interventions: saline lock, magnesium iv, doxy iv, duoneb 1hr neb Labs:Reviewed and remarkable for no significant abnormalities Imaging:X ray results are stated below per my interpretation: Chest: 1 view: No infiltrate, no effusion, normal cardiac border. Emphysema EKG:Per My Interpretation: Indication SOB: NSR 70 bpm, qtc 440. No Ectopy. No Ischemia. Compared to EKG 04/19/19, no significant changes. Cardiac/Tele Monitoring: Cardiac Monitoring: An Order was placed for continuous cardiac monitoring. The monitor shows a rate of 70 with a normal sinus rhythm. Consults:Dr Alfonso Ann Hospitalist Plan: Disposition:Hospitalization. Condition: Good History of Present Illness:70 yr old male arrives for evaluation of shortness of breath. Patient with long history of COPD and emphysema who chronically is on 3.5-4 L NC O2 at home. He notes over the last month worsening difficulty breathing. Over the last few days significantly worse. Today without ability to even walk down the [place] without severe shortness of breath. With sitting he feels much better. Exertion makes worse. Nebs at home not helping. Neb and Solumedrol by EMS [employer]. Denies fevers, chills, productive cough, chest pain, leg swelling, abdominal pain, back pain, syncope, headache, nor other symptoms. He has not yet received covid vaccination. ROS: See above HPI for pertinent positives & negatives. A total of 10 systems reviewed and were otherwise negative. Past Medical History:Depression, COPD, GERD, DMII, BPH, P-Afib, HTN Past Surgical History:hip surgery Family History:See Below Social History:See Below Home Medications:See Below Allergies:[place] Vitals:Blood Pressure: 116/49, Pulse 80, RR 22, T 36.7C, O2 100% on 3.5L NC Physical Exam: GENERAL: Patient is chronically unwell appearing and in moderate distress. EYES: No scleral icterus, unremarkable pupils. ENT: Mucous membranes moist, no nasal congestion. NECK: No masses appreciated, nomeningismus, trachea is midline. RESPIRATORY: Very tight lung sounds with diffuse wheezing. Tachypnea and dyspnea CARDIOVASCULAR: Regular rate and rhythm.No murmurs, rubs, gallops appreciated. GASTROINTESTINAL: Abdomen soft, non-tender, no peritonitis.Bowel sounds positive.No masses appreciated. BACK: No midline tenderness, no CVA tenderness EXTREMITIES: Normal motion all extremities, no cyanosis, no edema. NEUROLOGIC: Alert and oriented, no acute motor or sensory deficits, no focal weakness, cranial nerves grossly intact. SKIN: No rash, no jaundice, no diaphoresis. PSYCH: Appropriate GCS: 15 ED Course: Times/Reassessments: much improved symptoms with neb but still very tight lung sounds All Deng MD Past Med/Surg History Medical History (Updated 05/24/20 @ 05:29 by All Deng MD) Alcohol use BPH (benign prostatic hyperplasia) Chronic respiratory failure with hypoxia COPD (chronic obstructive pulmonary disease) Depression Diabetes mellitus, type II Dyslipidemia Esophageal stenosis "s/p dilation June 2016" GERD (gastroesophageal reflux disease) HTN (hypertension) Hypothyroidism Leg edema Mood disorder Paroxysmal atrial fibrillation Superficial thrombophlebitis "2009" TIA (transient ischemic attack) "1982" Surgical History History of cataract surgery S/P bronchoscopy Family History Other Diabetes Social History Smoking Status: Former smoker Tobacco Type: Cigarettes Cigarettes Per Day: 20; Second Hand Exposure: No; Hx Alcohol Use: Yes Alcohol type: beer Alcohol Intake Frequency Comment: 2 beers a day Hx Substance Use: No Preferred Language: Kazakh Communication Ability: Effective Vault Person Required: No Beliefs That Will Affect Care: None marital status: Single Current Living Situation: [facility] Current Living Situation Comment: [facility] How many Children do You have: 0 Feels Safe at Home: Yes Assistive Devices: Oxygen - Continuous and Walker Allergies Allergies Allergy/AdvReac Type Severity Reaction Status Date / Time turkey Allergy Unknown Verified 03/22/19 11:08 Home Meds Home Medications Medication Instructions Recorded Confirmed atorvastatin 40 mg PO QAM 01/28/18 05/24/20 docusate sodium [Colace] 100 mg PO DAILY 01/28/18 05/24/20 gabapentin 300 mg PO HS 01/28/18 05/24/20 metformin 1,000 mg PO DAILY 04/23/18 05/24/20 Trelegy Ellipta 1 inh INHALATION DAILY 02/13/19 05/24/20 levothyroxine 50 mcg PO DAILY 02/13/19 05/24/20 montelukast 10 mg PO PM 02/13/19 05/24/20 pantoprazole 40 mg PO DAILY 02/13/19 05/24/20 sertraline 100 mg PO DAILY 02/13/19 05/24/20 verapamil 120 mg PO DAILY 02/13/19 05/24/20 acetaminophen 650 mg PO Q6 PRN MDD 3g/24hr 02/22/19 05/24/20 hydroxyzine HCl 50 mg PO Q6 PRN 02/22/19 05/24/20 Previous Rx's Medication Instructions Recorded albuterol sulfate 2.5 mg INHALATION TID #0 ml 04/30/18 ipratropium bromide 0.5 mg INHALATION TID #0 ml 04/30/18 guaifenesin 200 mg PO TID PRN #15 tab 04/22/19 Results & Data (ED) Vital Signs Vital Signs - 24 hr 05/24/20 04:08 05/24/20 04:16 05/24/20 04:17 Temperature 36.7 C Temperature Source Oral Pulse Rate 70 Pulse Rate [Right Finger] 68 Pulse Rhythm Regular Pulse Strength Normal Respiratory Rate 30 H 18 Respiratory Effort / Characteristics Non-Labored Spontaneous Accessory Muscle Use Non-Labored Spontaneous Respiratory Depth Deep Respiratory Pattern Tachypnea Blood Pressure 162/116 H Blood Pressure [Right Arm] Blood Pressure Mean 131 Blood Pressure Mean [Right Arm] Blood Pressure Position Sitting Pulse Oximetry 100 100 Oxygen Delivery Method Nasal Cannula Nasal Cannula Nasal Cannula Oxygen Flow Rate 3.5 3.5 4 Sepsis Recent Fever Within 48 Hours No Sepsis New/Unexplained Change in Mental Status N/A Sepsis Action Taken by Nursing No Action Required 05/24/20 04:50 05/24/20 06:22 Temperature Temperature Source Pulse Rate 80 Pulse Rate [Right Finger] 69 Pulse Rhythm Pulse Strength Respiratory Rate 26 H 22 Respiratory Effort / Characteristics Respiratory Depth Respiratory Pattern Blood Pressure 116/49 L Blood Pressure [Right Arm] 120/61 Blood Pressure Mean Blood Pressure Mean [Right Arm] 80 Blood Pressure Position Pulse Oximetry 100 100 Oxygen Delivery Method Nebulizer Nasal Cannula Oxygen Flow Rate 3.5 Sepsis Recent Fever Within 48 Hours Sepsis New/Unexplained Change in Mental Status Sepsis Action Taken by Nursing Laboratory Data Result diagrams: 05/24/20 04:00 05/24/20 04:00 Lab Results 05/24/20 05/24/20 05/24/20 Range/Units 04:00 04:00 04:00 WBC 12.32 H (4.8-10.8) K/uL RBC 3.60 L (4.7-6.1) M/uL Hgb 12.5 L (14.0-18.0) g/dL Hct 36.9 L (42-52) % MCV 102.5 H (80-100) fL MCH 34.7 H (25-34) pg MCHC 33.9 (32-36) g/dL RDW Std Deviation 48.6 H (36.4-46.3) fL RDW Coeff of Daquan 12.9 (11.5-14.5) % Plt Count 152 (130-400) K/uL MPV 11.5 H (7.4-10.4) fL Immature Gran % (Auto) 0.1 % Neut % (Auto) 71.9 % Lymph % (Auto) 12.8 % [place] % (Auto) 11.3 % Eos % (Auto) 3.7 % Baso % (Auto) 0.2 % Neut # (Auto) 8.85 H (1.4-6.5) K/uL Lymph # (Auto) 1.58 (1.2-3.4) K/uL [place] # (Auto) 1.39 H (0.11-0.59) K/uL Eos # (Auto) 0.46 (0-0.5) K/uL Baso # (Auto) 0.03 (0-0.2) K/uL Immature Gran # (Auto) 0.01 (0.00-0.02) K/uL APTT 24.8 (21.0-31.0) Seconds PTT Ratio 0.9 Sodium 143 (136-145) mmol/L Potassium 4.4 (3.5-5.1) mmol/L Chloride 106 (98-107) mmol/L Carbon Dioxide 33 H (21-32) mmol/L Anion Gap 4.0 (3-11) BUN 15 (7-18) mg/dl Creatinine 0.85 (0.6-1.4) mg/dl Est Cr Clr Drug Dosing 73.9 ml/min Est GFR ( Amer) 103.8 Est GFR (Non-Af Amer) 89.5 BUN/Creatinine Ratio 18.1 (10-20) Glucose 131 H (70-99) mg/dl Calcium 8.7 (8.5-10.1) mg/dl Magnesium 2.2 (1.8-2.4) mg/dl Total Bilirubin 0.5 (0.2-1) mg/dl Direct Bilirubin 0.2 (0-0.2) mg/dl AST 18 (15-37) U/L ALT 23 (12-78) U/L Alkaline Phosphatase 194 H (45-117) U/L Troponin I < 0.015 (0-0.045) ng/ml Total Protein 7.0 (6.4-8.2) gm/dl Albumin 3.4 (3.4-5.0) gm/dl COVID-19 Eval Order SARS-CoV-2 (PCR) (Negative) Influenza Type A (PCR) (Neg) Influenza Type B (PCR) (Neg) RSV (RT-PCR) (Neg) 05/24/20 05/24/20 Range/Units 04:15 04:15 WBC (4.8-10.8) K/uL RBC (4.7-6.1) M/uL Hgb (14.0-18.0) g/dL Hct (42-52) % MCV (80-100) fL MCH (25-34) pg MCHC (32-36) g/dL RDW Std Deviation (36.4-46.3) fL RDW Coeff of Daquan (11.5-14.5) % Plt Count (130-400) K/uL MPV (7.4-10.4) fL Immature Gran % (Auto) % Neut % (Auto) % Lymph % (Auto) % [place] % (Auto) % Eos % (Auto) % Baso % (Auto) % Neut # (Auto) (1.4-6.5) K/uL Lymph # (Auto) (1.2-3.4) K/uL [place] # (Auto) (0.11-0.59) K/uL Eos # (Auto) (0-0.5) K/uL Baso # (Auto) (0-0.2) K/uL Immature Gran # (Auto) (0.00-0.02) K/uL APTT (21.0-31.0) Seconds PTT Ratio Sodium (136-145) mmol/L Potassium (3.5-5.1) mmol/L Chloride (98-107) mmol/L Carbon Dioxide (21-32) mmol/L Anion Gap (3-11) BUN (7-18) mg/dl Creatinine (0.6-1.4) mg/dl Est Cr Clr Drug Dosing ml/min Est GFR ( Amer) Est GFR (Non-Af Amer) BUN/Creatinine Ratio (10-20) Glucose (70-99) mg/dl Calcium (8.5-10.1) mg/dl Magnesium (1.8-2.4) mg/dl Total Bilirubin (0.2-1) mg/dl Direct Bilirubin (0-0.2) mg/dl AST (15-37) U/L ALT (12-78) U/L Alkaline Phosphatase (45-117) U/L Troponin I (0-0.045) ng/ml Total Protein (6.4-8.2) gm/dl Albumin (3.4-5.0) gm/dl COVID-19 Eval Order CovFluRsv at [facility] SARS-CoV-2 (PCR) NEGATIVE (Negative) Influenza Type A (PCR) Negative (Neg) Influenza Type B (PCR) Negative (Neg) RSV (RT-PCR) Negative (Neg) Administered Medications Doxycycline Hyclate 100 mg/ (Dextrose) 110 mls @ 50 mls/hr IV NOW STA Stop: 05/24/20 07:14 Last Admin: 05/24/20 05:32 Dose: 50 mls/hr Documented by: [id number] Discontinued Medications Albuterol (Albut/Ipratrop 3mg/0.5mg Neb 3 Ml Vial) 12 ml NEB ONE ONE Stop: 05/24/20 04:05 Last Admin: 05/24/20 04:17 Dose: 12 ml Documented by: [id number] Magnesium Sulfate/Dextrose (Magnesium Sulfate / D5w) 1 gm in 100 mls @ 100 mls/hr IV NOW STA Stop: 05/24/20 05:04 Last Infusion: 05/24/20 05:31 Dose: 0 mls/hr Documented by: [id number] Admin: 05/24/20 04:12 Dose: 100 mls/hr Documented by: [id number] Methylprednisolone 40 mg/ (Syringe) 0.64 mls @ 1.5 mls/min IV NOW STA Stop: 05/24/20 05:22 Last Admin: 05/24/20 05:35 Dose: Not Given Documented by: [id number] Discharge Plan Visit Data Chief Complaint: Shortness of Breath/Dyspnea Stated Complaint: SOB ED Provider: All Deng Discharge Problem: Acute exacerbation of chronic obstructive pulmonary disease Patient Disposition: Admitted As Inpatient Discharge Instructions Interventions: ED Discharge Assessment Last Done: 05/24/20 06:22 Forms Stand Alone Forms: [facility] Prescriptions Prescriptions: No Action verapamil 120 mg Tablet Extended Release 120 mg PO DAILY RF: 0 levothyroxine 50 mcg Tablet 50 mcg PO DAILY RF: 0 pantoprazole 40 mg Tablet,Delayed Release (Dr/Ec) 40 mg PO DAILY RF: 0 Trelegy Ellipta 100-62.5-25 mcg Blister With Device 1 inh INHALATION DAILY RF: 0 sertraline 100 mg Tablet 100 mg PO DAILY RF: 0 montelukast 10 mg Tablet 10 mg PO PM RF: 0 guaifenesin 200 mg tablet 200 mg PO TID PRN (Reason: cough) Qty: 15 RF: 0 atorvastatin 40 mg tablet 40 mg PO QAM RF: 0 docusate sodium [Colace] 100 mg Capsule 100 mg PO DAILY RF: 0 gabapentin 300 mg capsule 300 mg PO HS RF: 0 metformin 1,000 mg Tablet Extended Release 24hr 1,000 mg PO DAILY RF: 0 albuterol sulfate 2.5 mg /3 mL (0.083 %) Solution For Nebulization 2.5 mg INHALATION TID Qty: 0 RF: 0 ipratropium bromide 0.02 % solution 0.5 mg Inhalation TID Qty: 0 RF: 0 hydroxyzine HCl 50 mg Tablet 50 mg PO Q6 PRN (Reason: anxiety/agitation) RF: 0 acetaminophen 325 mg Tablet 650 mg PO Q6 MDD 3g/24hr PRN (Reason: pain scale 1-4) RF: 0 Referrals Referrals: PCP,NO [Primary Care Provider] -
[2020-05-24 04:20] LABS: Basophils # (auto) 0.03 K/uL (0-0.2); Basophils % (auto) 0.2 %; Eosinophils # (auto) 0.46 K/uL (0-0.5); Eosinophils % (auto) 3.7 %; Hematocrit (blood only) 36.9 % (42-52); Hemoglobin 12.5 g/dL (14.0-18.0); Immature Granulocytes # (auto) 0.01 K/uL (0.00-0.02); Immature Granulocytes % (auto) 0.1 %; Lymphocytes # (auto) 1.58 K/uL (1.2-3.4); Lymphocytes % (auto) 12.8 %; Mean Corpuscular Hemoglobin 34.7 pg (25-34); Mean Corpuscular Hgb Conc 33.9 g/dL (32-36); Mean Corpuscular Volume 102.5 fL (80-100); Mean Platelet Volume 11.5 fL (7.4-10.4); Monocytes # (auto) 1.39 K/uL (0.11-0.59); Monocytes % (auto) 11.3 %; Neutrophils # (auto) 8.85 K/uL (1.4-6.5); Neutrophils % (auto) 71.9 %; Platelet Count 152 K/uL (130-400); RDW Coefficient of Variation 12.9 % (11.5-14.5); RDW Standard Deviation 48.6 fL (36.4-46.3); White Blood Count 12.32 K/uL (4.8-10.8)
[2020-05-24 04:37] LABS: BUN Creatinine Ratio 18.1 (10-20); Blood Urea Nitrogen 15 mg/dl (7-18); Calcium 8.7 mg/dl (8.5-10.1); Carbon Dioxide 33 mmol/L (21-32); Chloride 106 mmol/L (98-107); Creatinine Clr Calc Pharmacy 73.9 ml/min; Est GFR (African American) 103.8; Est GFR (Non-African American) 89.5; Glucose 131 mg/dl (70-99); Magnesium 2.2 mg/dl (1.8-2.4); Potassium 4.4 mmol/L (3.5-5.1); Sodium 143 mmol/L (136-145)
[2020-05-24 04:42] LABS: Troponin I < 0.015 ng/ml (0-0.045)
[2020-05-24] MEDS ORDERED: DOXYCYCLINE HYCLATE 100 MG in DEXTROSE 5% 100 ML IV STA (05:03)
[2020-05-24 05:18] LABS: Influenza A virus by PCR Negative (Neg); Influenza B virus by PCR Negative (Neg); RSV by PCR Negative (Neg); SARS CoV2 RNA(COVID-19) InHosp NEGATIVE (Negative)
[2020-05-24] MEDS ORDERED: methylPREDNISolone 40 MG in SYRINGE 0 ML IV STA (05:21)
--- NOTE | 2020-05-24 05:34 | History & Physical Report ---
Date of Service May 24, 2020 Assessment & Plan (1) Acute exacerbation of chronic obstructive pulmonary disease: Complicated bronchitis secondary to above Rule out pulmonary embolism as contributory factor to worsening shortness of breath the last few days Right flank pain a few weeks duration rule out kidney stone, history urolithiasis hypertension, BP stable PAF, off Coumadin since 2019 secondary to GI bleed and patient compliant issues, patient NSR DM2, on oral medications, well controlled as of recent hemoglobin A1c of 5.1 last April 2020 history of TIA as per records chronic anemia, hemoglobin at baseline Ongoing tobacco abuse Medical telemetry Doxycycline, nebs RTC, steroids CT chest PE study CT abdomen pelvis RE flank pain Pulmonary consult if without improvement Basal insulin, ISS BG goal 140-180, carb count coverage DT precautions/MELY S Nicotine patch as needed DVT prophylaxis. Lovenox subcu Full code Text document was generated using [employer] voice recognition software. It may contain grammatical or spelling errors. Kindly contact undersigned for clarification of any documentation item in question. History of Present Illness Chief Complaint: Worsening shortness of breath Primary Care Provider: Dr. Rizzo History obtained from patient and records. Medical history significant for chronic respiratory failure secondary to COPD on home O2, ongoing tobacco abuse, hypertension, PAF off anticoagulation secondary to GI bleed/patient compliance issues, History TIA as per records, DM2, on oral medications, chronic anemia (baseline hemoglobin of 11), hx urolithiasis, ongoing tobacco/alcohol abuse Recent confinement April 2019 for pneumonia. Patient not feeling well since last month. Junky cough symptoms and worsening shortness of breath mostly on exertion. Denies chest pain or fluid retention. Denies aspiration. No fever, no chills. Did not want to go to the ER to get checked out because he was afraid of Covid. No known recent COVID-19 contacts. Patient seen at PCP's office 3 weeks ago. Right flank pain symptoms somewhat worse with motion. Symptoms attributed to musculoskeletal pathology as per documentation. Worsening symptoms the last few days. Nebs and Solu-Medrol administered by EMS on route to the hospital. Doxycycline administered at the ER. Medical History as above Surgical History : Eye surgery, urologic procedures, hip replacement Family History : Heart disease, diabetes Personal/Social history : One pack daily, alcohol abuse as per records, disabled Allergies Allergy/AdvReac Type Severity Reaction Status Date / Time turkey Allergy Unknown Verified 03/22/19 11:08 Home Medications Medication Instructions Recorded Confirmed Type atorvastatin 40 mg PO QAM 01/28/18 05/24/20 History docusate sodium [Colace] 100 mg PO DAILY 01/28/18 05/24/20 History gabapentin 300 mg PO HS 01/28/18 05/24/20 History metformin 1,000 mg PO DAILY 04/23/18 05/24/20 History albuterol sulfate 2.5 mg INHALATION TID #0 ml 04/30/18 05/24/20 Rx ipratropium bromide 0.5 mg INHALATION TID #0 ml 04/30/18 05/24/20 Rx Trelegy Ellipta 1 inh INHALATION DAILY 02/13/19 05/24/20 History levothyroxine 50 mcg PO DAILY 02/13/19 05/24/20 History montelukast 10 mg PO PM 02/13/19 05/24/20 History pantoprazole 40 mg PO DAILY 02/13/19 05/24/20 History sertraline 100 mg PO DAILY 02/13/19 05/24/20 History verapamil 120 mg PO DAILY 02/13/19 05/24/20 History acetaminophen 650 mg PO Q6 PRN MDD 3g/24hr 02/22/19 05/24/20 History hydroxyzine HCl 50 mg PO Q6 PRN 02/22/19 05/24/20 History guaifenesin 200 mg PO TID PRN #15 tab 04/22/19 05/24/20 Rx Past Med/Surg History Medical History (Updated 05/24/20 @ 05:29 by All Deng MD) Alcohol use BPH (benign prostatic hyperplasia) Chronic respiratory failure with hypoxia COPD (chronic obstructive pulmonary disease) Depression Diabetes mellitus, type II Dyslipidemia Esophageal stenosis "s/p dilation June 2016" GERD (gastroesophageal reflux disease) HTN (hypertension) Hypothyroidism Leg edema Mood disorder Paroxysmal atrial fibrillation Superficial thrombophlebitis "2009" TIA (transient ischemic attack) "1982" Surgical History History of cataract surgery S/P bronchoscopy Family History Other Diabetes Social History Smoking Status: Former smoker Tobacco Type: Cigarettes Cigarettes Per Day: 20; Second Hand Exposure: No; Hx Alcohol Use: Yes Alcohol type: beer Alcohol Intake Frequency Comment: 2 beers a day Hx Substance Use: No Preferred Language: Tamazight Communication Ability: Effective Supervisor Type Photography Required: No Beliefs That Will Affect Care: None marital status: Single Current Living Situation: [facility] Current Living Situation Comment: [facility] How many Children do You have: 0 Feels Safe at Home: Yes Assistive Devices: Oxygen - Continuous and Walker Review of Systems Review of Systems: As per HPI, all 10 systems reviewed, all other ROS negative Physical Exam Physical Exam: GENERAL: Comfortable, pleasant, minimal respiratory distress SKIN: Pallor, warm HEENT: Pale palpebral conjunctivae, no ptosis, dry buccal mucosa, O2 mask in place NECK : Supple, no tenderness CHEST : Decreased breath sounds, no tenderness HEART : RRR, no obvious murmurs ABDOMEN: Some distention, nontender BACK : Minimal flank tenderness EXTREMITIES : No LE swelling/tenderness, no other conspicuous deformities noted NEUROLOGIC : Coherent, no facial asymmetry, no other gross focality Results & Data Results & Data ([facility]) Vital Signs (Past 12 Hours) Vital Signs Temp Pulse Pulse Resp BP BP Pulse Ox 05/24/20 04:50 69 26 H 120/61 100 05/24/20 04:17 68 18 100 05/24/20 04:08 36.7 C 70 30 H 162/116 H 100 Laboratory Results Laboratory Results WBC 12.32 K/uL (4.8-10.8) H 05/24/20 04:00 RBC 3.60 M/uL (4.7-6.1) L 05/24/20 04:00 Hgb 12.5 g/dL (14.0-18.0) L 05/24/20 04:00 Hct 36.9 % (42-52) L 05/24/20 04:00 MCV 102.5 fL (80-100) H 05/24/20 04:00 MCH 34.7 pg (25-34) H 05/24/20 04:00 MCHC 33.9 g/dL (32-36) 05/24/20 04:00 RDW Std Deviation 48.6 fL (36.4-46.3) H 05/24/20 04:00 RDW Coeff of Daquan 12.9 % (11.5-14.5) 05/24/20 04:00 Plt Count 152 K/uL (130-400) 05/24/20 04:00 MPV 11.5 fL (7.4-10.4) H 05/24/20 04:00 Immature Gran % (Auto) 0.1 % 05/24/20 04:00 Neut % (Auto) 71.9 % 05/24/20 04:00 Lymph % (Auto) 12.8 % 05/24/20 04:00 [place] % (Auto) 11.3 % 05/24/20 04:00 Eos % (Auto) 3.7 % 05/24/20 04:00 Baso % (Auto) 0.2 % 05/24/20 04:00 Neut # (Auto) 8.85 K/uL (1.4-6.5) H 05/24/20 04:00 Lymph # (Auto) 1.58 K/uL (1.2-3.4) 05/24/20 04:00 [place] # (Auto) 1.39 K/uL (0.11-0.59) H 05/24/20 04:00 Eos # (Auto) 0.46 K/uL (0-0.5) 05/24/20 04:00 Baso # (Auto) 0.03 K/uL (0-0.2) 05/24/20 04:00 Immature Gran # (Auto) 0.01 K/uL (0.00-0.02) 05/24/20 04:00 Sodium 143 mmol/L (136-145) 05/24/20 04:00 Potassium 4.4 mmol/L (3.5-5.1) 05/24/20 04:00 Chloride 106 mmol/L (98-107) 05/24/20 04:00 Carbon Dioxide 33 mmol/L (21-32) H 05/24/20 04:00 Anion Gap 4.0 (3-11) 05/24/20 04:00 BUN 15 mg/dl (7-18) 05/24/20 04:00 Creatinine 0.85 mg/dl (0.6-1.4) 05/24/20 04:00 Est Cr Clr Drug Dosing 73.9 ml/min 05/24/20 04:00 Est GFR ( Amer) 103.8 05/24/20 04:00 Est GFR (Non-Af Amer) 89.5 05/24/20 04:00 BUN/Creatinine Ratio 18.1 (10-20) 05/24/20 04:00 Glucose 131 mg/dl (70-99) H 05/24/20 04:00 Calcium 8.7 mg/dl (8.5-10.1) 05/24/20 04:00 Magnesium 2.2 mg/dl (1.8-2.4) 05/24/20 04:00 Troponin I < 0.015 ng/ml (0-0.045) 05/24/20 04:00 COVID-19 Eval Order CovFluRsv at [facility] 05/24/20 04:15 SARS-CoV-2 (PCR) NEGATIVE (Negative) 05/24/20 04:15 Influenza Type A (PCR) Negative (Neg) 05/24/20 04:15 Influenza Type B (PCR) Negative (Neg) 05/24/20 04:15 RSV (RT-PCR) Negative (Neg) 05/24/20 04:15 Diagnostic Findings Chest x-ray as per my interpretation hyperinflation EKG as per my interpretation : Rate 70, NSR, normal axis, incomplete RBBB, short AL you have abnormality septal leads
[2020-05-24] MEDS ORDERED: MULTI-VITAMIN INFUSION 10 ML, THIAMINE HCL 100 MG, FOLIC ACID 1 MG in SODIUM CHLORIDE 0... IV ONE (05:39)
[2020-05-24 05:59] LABS: Partial Thromboplastin Ratio 0.9; Partial Thromboplastin Time 24.8 Seconds (21.0-31.0)
[2020-05-24 06:02] LABS: Albumin Level 3.4 gm/dl (3.4-5.0); Aspartate Aminotransferase 18 U/L (15-37); Bilirubin,Total 0.5 mg/dl (0.2-1)
[2020-05-24 06:07] LABS: Alanine Aminotransferase 23 U/L (12-78); Alkaline Phosphatase 194 U/L (45-117); Bilirubin Direct 0.2 mg/dl (0-0.2)
[2020-05-24 06:26] LABS: HCO3 ABG 31 mmol/L (19-24); Oxygen Saturation ABG 98.4 % (90-95); PCO2 ABG 62 mmHg (35-46); PO2 ABG 131 mmHg (80-95); pH ABG 7.31 (7.35-7.45)
[2020-05-24 06:34] LABS: Allen Test Pos (Pos)
[2020-05-24] MEDS ORDERED: OPTIRAY 320 125ml IV ONE (06:35)
--- NOTE | 2020-05-24 06:44 | XRay Report ---
XR chest 1V portable HISTORY: 70 years-old Male SHOB acute shortness of breath COMPARISON: Chest radiograph 04/19/2019, CTA chest 05/24/2020 TECHNIQUE: Portable AP view of the chest FINDINGS: Cardiomediastinal and hilar silhouettes are within normal limits. Severe emphysema with chronic inter stitial coarsening. There is improved aeration of the lungs from comparison. No pneumothorax, pleural effusion, airspace consolidation or overt pulmonary edema. Degenerative changes of the shoulders and spine. IMPRESSION: Severe emphysema without acute process. ACT 112: Negative or not required by law. The above report was generated using voice recognition software. It may contain grammatical, syntax o r spelling errors. Electronically signed by: Shalom Wills M.D. 05/24/2020 6:43 AM
[2020-05-24] MEDS ORDERED: PROMETHAZINE HCL 6.25 MG in SODIUM CHLORIDE 0.9% 50 ML IV PRN (06:57)
[2020-05-24] MEDS ORDERED: GLUCOSE 10 TABS/TUBE PO PRN (06:57)
[2020-05-24] MEDS ORDERED: LORazepam 2 MG/4 ML VIAL IV PRN (06:57)
[2020-05-24] MEDS ORDERED: DEXTROSE 50% 50 ML SYRINGE IV PRN (06:57)
[2020-05-24] MEDS ORDERED: CARBOHYDRATES FOR HYPOGLYCEMIA PO PRN (06:57)
[2020-05-24] MEDS ORDERED: LORazepam 1 MG/2 ML VIAL IV PRN (06:57)
[2020-05-24] MEDS ORDERED: ATIVAN IV ALCOHOL WITHDRAWL IV PRN (06:57)
[2020-05-24] MEDS ORDERED: oxyCODONE HCL IR 5 MG TAB (IMMEDIATE RELEASE) PO PRN (06:57)
[2020-05-24] MEDS ORDERED: GLUCAGON FOR INJ 1 MG VIAL SQ PRN (06:57)
[2020-05-24] MEDS ORDERED: LORazepam 3 MG/6 ML VIAL IV PRN (06:57)
[2020-05-24] MEDS ORDERED: ACETAMINOPHEN 325 MG TAB PO PRN (06:57)
[2020-05-24] MEDS ORDERED: GLUCOSE 40% GEL 15 GM TUBE PO PRN (06:57)
--- NOTE | 2020-05-24 07:23 | CT Scan Report ---
CT ANGIOGRAPHY OF THE CHEST, PULMONARY EMBOLUS PROTOCOL CLINICAL HISTORY: Shortness of breath. COMPARISON STUDY: Chest CT April 19, 2019. Chest radiograph performed earlier today. TECHNIQUE: Following IV administration of 1 mL of Optiray-320, helical axial images of the chest were obtained utilizing the pulmonary embolus protocol. Maximal intensity projections and sagittal and c oronal reformats were viewed on an independent 3D workstation. IV contrast was administered without complication. Automated exposure control was utilized for the study. A dose lowering technique was utilized adhering to the principles of ALARA. CT DOSE: 596.20 mGy.cm FINDINGS: No pulmonary emboli are identified. There is no thoracic aortic dissection. Size of the he art is normal. No enlarged axillary, mediastinal or hilar lymph nodes are present. There is no pneumo thorax or pleural effusion. There are severe emphysema. Moderate bronchial wall thickening with mild mucus plugging within the right lower lobe is noted. There is no consolidation. Mild subpleural opaci ties favor atelectasis or scarring. Right apical scarring is noted. There is an old T12 compression f racture. There is an age indeterminate moderate compression fracture of the superior endplate of T10. There is mild adjacent infiltration. Abdomen and pelvis will be reported separate. IMPRESSION: 1. No pulmonary emboli identified. 2. Severe emphysema. 3. Moderate bronchial wall thickening with mucus plugging within the right lower lobe. 4. Moderate compression fracture of the superior endplate of T10 with minimal adjacent infiltration. This is likely acute to subacute. Old T12 compression fracture. ACT 112: Negative or not required by law. Electronically signed by: Cam Perez M.D. 05/24/2020 7:22 AM
[2020-05-24] MEDS: LEVALBUTEROL 1.25MG/0.5ML NEB INH SCH ×3 (07:33→18:28)
[2020-05-24] MEDS: IPRATROPIUM BROMIDE NEB SOLN 0.02% 2.5 ML VIAL INH SCH ×3 (07:33→18:28)
[2020-05-24] MEDS: VERAPAMIL HCL 120 MG TABCR PO SCH (08:31)
[2020-05-24] MEDS: ATORVASTATIN 40 MG TAB PO SCH (08:31)
[2020-05-24] MEDS: SERTRALINE HCL 100 MG TABLET PO SCH (08:31)
[2020-05-24] MEDS: PANTOprazole 40 MG TAB PO SCH (08:31)
[2020-05-24] MEDS: DOCUSATE SODIUM 100 MG CAP PO SCH (08:31)
[2020-05-24] MEDS: INSULIN GLARGINE SOLOSTAR 100 UNITS/ML 3 ML PEN SC SCH (08:32)
[2020-05-24] MEDS: INSULIN ASPART 100 UNITS/ML 3 ML PEN SC SCH ×4 (08:33→20:45)
[2020-05-24] MEDS: ENOXAPARIN INJ 30 MG/0.3 ML SYR SQ SCH (08:37)
--- NOTE | 2020-05-24 08:51 | CT Scan Report ---
ABDOMEN AND PELVIS CT WITHOUT CONTRAST HISTORY: Acute bilateral flank pain with shortness of breath FLANK PAIN TECHNIQUE: Multiaxial CT images of the abdomen and pelvis were performed without contrast. A dose lo wering technique was utilized adhering to the principles of ALARA. COMPARISON STUDY: CTA chest of same day, CT abdomen and pelvis 04/23/2018 FINDINGS: Imaged inferior cardiac chambers are unremarkable. Emphysema with bibasilar mucous plugging. No pneum atosis or pneumoperitoneum. Limited evaluation of the solid abdominal organs without the use of IV co ntrast. Within the limitations of the study, the spleen, pancreas, gallbladder and liver appear unrem arkable. Thickening of the adrenal glands suggestive of hyperplasia. 3 nonobstructing calculi of the right kidney measure up to 6 mm. 3 mm nonobstructing calculus of the inferior pole left kidney. Mild nonspecific bilateral perinephric stranding. No ureteral calculi or o bstructive uropathy identified. Pelvic structures are suboptimally visualized secondary to streak art ifact from right hip total joint arthroplasty. Mild bladder wall thickening with partial distention. Mild prostamegaly. Calcified plaque of the aorta without aneurysm. No adenopathy. No bowel obstruction. Mild rectal wall thickening, likely secondary to partial distention. There is a n inflamed sigmoid diverticulum on image 222 series 3. No evidence of perforation or abscess. Mild as sociated focal wall thickening of the sigmoid. Normal appendix. Unremarkable soft tissues. Chronic T1 2 compression deformity. Acute versus subacute 25% superior endplate compression deformity at T10 wit h mild paravertebral edema. No significant retropulsion. IMPRESSION: 1. Mild acute sigmoid diverticulitis. No abscess or perforation. 2. No bowel obstruction. 3. Nonobstructing bilateral nephrolithiasis. 4. Acute versus subacute T10 25% superior endplate compression deformity 5. Additional findings as above. ACT 112: Negative or not required by law. The above report was generated using voice recognition software. It may contain grammatical, syntax o r spelling errors. Electronically signed by: Shalom Wills M.D. 05/24/2020 8:49 AM
[2020-05-24] MEDS ORDERED: guaiFENesin 200 MG TAB PO SCH (10:00)
[2020-05-24] MEDS ORDERED: guaiFENesin 200 MG TAB PO PRN (10:07)
[2020-05-24] MEDS: CIPROFLOXACIN / D5W 400 MG/200 ML BAG IV SCH (12:19)
[2020-05-24] MEDS ORDERED: XOPENEX/ATROVENT 1.25mg/0.5MG NEB COMBO NEB SCH (13:00)
[2020-05-24] MEDS: metroNIDAZOLE 500 MG TAB PO SCH ×2 (14:22→20:45)
--- NOTE | 2020-05-24 19:33 | Communication Note ---
Date of Service: May 24, 2020 Pt was seen and examined. Lying in bed with no distress. He continues to cough. CTA chest showed no pulmonary emboli identified.Severe emphysema. Moderate bronchial wall thickening with mucus plugging within the right lower lobe. Moderate compression fracture of the superior endplate of T10 with minimal adjacent infiltration. CT abd/pelvis showed mild acute sigmoid diverticulitis and no abscess or perforation. Pt said that few days ago that he had episodes of diarrhea for 4 days. Currently complaint of mild abdominal tenderness travelling around her right lower side. will add flagyl and cipro for the mild diverticulitis. Consider ortho consult if develops increase back pain. Continue neb treatment, chest PT and Mucomyst. Pulmonary consult if SOB or respiratory status worsening. MD Atul
[2020-05-24] MEDS: GABAPENTIN 300 MG CAP PO SCH (20:45)
[2020-05-24] MEDS: MONTELUKAST SODIUM 10 MG TABLET PO SCH (20:45)
[2020-05-24] MEDS: DOXYCYCLINE HYCLATE 100 MG CAP PO SCH (20:45)
[2020-05-24] MEDS: ACETYLCYSTEINE 10% INHAL SOLN 4 ML **DISPENSED BY RESP. INH SCH (20:58)
[2020-05-25] MEDS: CIPROFLOXACIN / D5W 400 MG/200 ML BAG IV SCH ×2 (00:29→12:27)
[2020-05-25] MEDS: LEVOTHYROXINE SODIUM 50 MCG TABLET PO SCH (06:18)
--- NOTE | 2020-05-25 06:20 | Electrocardiogram Report ---
Test Reason : Blood Pressure : / mmHG Vent. Rate : 070 BPM Atrial Rate : 070 BPM P-R Int : 096 ms QRS Dur : 082 ms QT Int : 408 ms P-R-T Axes : -07 077 076 degrees QTc Int : 440 ms Poor data quality, interpretation may be adversely affected Sinus rhythm with short UT Incomplete right bundle branch block When compared with ECG of 19-APR-2019 09:52, No significant change was found Confirmed by Chris Hermosillo ([id number]) on 05/25/2020 6:20:12 AM Referred By: REFERRED SELF Confirmed By:Chris Hermosillo
[2020-05-25 06:39] LABS: Basophils # (auto) 0.01 K/uL (0-0.2); Basophils % (auto) 0.1 %; Eosinophils # (auto) 0.01 K/uL (0-0.5); Eosinophils % (auto) 0.1 %; Hematocrit (blood only) 30.6 % (42-52); Immature Granulocytes # (auto) 0.02 K/uL (0.00-0.02); Immature Granulocytes % (auto) 0.2 %; Lymphocytes # (auto) 0.65 K/uL (1.2-3.4); Lymphocytes % (auto) 5.6 %; Mean Corpuscular Hemoglobin 33.6 pg (25-34); Mean Corpuscular Hgb Conc 32.7 g/dL (32-36); Mean Corpuscular Volume 102.7 fL (80-100); Mean Platelet Volume 11.5 fL (7.4-10.4); Monocytes # (auto) 0.94 K/uL (0.11-0.59); Monocytes % (auto) 8.2 %; Neutrophils # (auto) 9.89 K/uL (1.4-6.5); Neutrophils % (auto) 85.8 %; Platelet Count 132 K/uL (130-400); RDW Standard Deviation 49.4 fL (36.4-46.3); Red Blood Count 2.98 M/uL (4.7-6.1); White Blood Count 11.52 K/uL (4.8-10.8)
[2020-05-25 06:47] LABS: INR 0.9 (0.9-1.1); Prothrombin Time 9.4 Seconds (9.0-12.0)
[2020-05-25 07:03] LABS: Calcium 8.7 mg/dl (8.5-10.1); Creatinine Clr Calc Pharmacy 76.5 ml/min; Est GFR (African American) 106.4; Est GFR (Non-African American) 91.8; Potassium 4.6 mmol/L (3.5-5.1)
[2020-05-25] MEDS: ACETYLCYSTEINE 10% INHAL SOLN 4 ML **DISPENSED BY RESP. INH SCH ×2 (07:12→19:52)
[2020-05-25] MEDS: LEVALBUTEROL 1.25MG/0.5ML NEB INH SCH ×5 (07:12→19:52)
[2020-05-25] MEDS: IPRATROPIUM BROMIDE NEB SOLN 0.02% 2.5 ML VIAL INH SCH ×5 (07:13→19:52)
[2020-05-25] MEDS: DOXYCYCLINE HYCLATE 100 MG CAP PO SCH ×2 (07:58→20:31)
[2020-05-25] MEDS: ENOXAPARIN INJ 30 MG/0.3 ML SYR SQ SCH (07:58)
[2020-05-25] MEDS: guaiFENesin 600 MG TABCR PO SCH ×2 (07:58→20:31)
[2020-05-25] MEDS: predniSONE 20 MG TAB PO SCH (07:59)
[2020-05-25] MEDS: FOLIC ACID 1 MG TAB PO SCH (07:59)
[2020-05-25] MEDS: PANTOprazole 40 MG TAB PO SCH (07:59)
[2020-05-25] MEDS: VERAPAMIL HCL 120 MG TABCR PO SCH (07:59)
[2020-05-25] MEDS: SERTRALINE HCL 100 MG TABLET PO SCH (07:59)
[2020-05-25] MEDS: DOCUSATE SODIUM 100 MG CAP PO SCH (07:59)
[2020-05-25] MEDS: ATORVASTATIN 40 MG TAB PO SCH (07:59)
[2020-05-25] MEDS: INSULIN ASPART 100 UNITS/ML 3 ML PEN SC SCH ×4 (08:00→20:32)
[2020-05-25] MEDS: metroNIDAZOLE 500 MG TAB PO SCH ×3 (08:00→20:31)
[2020-05-25] MEDS: INSULIN GLARGINE SOLOSTAR 100 UNITS/ML 3 ML PEN SC SCH (08:00)
[2020-05-25] MEDS: THIAMINE HCL 100 MG TAB PO SCH (08:00)
[2020-05-25] MEDS: MULTIVITAMIN TAB PO SCH (08:01)
--- NOTE | 2020-05-25 10:17 | Hospitalist Progress Note ---
Date of Service May 25, 2020 Assessment & Plan (1) Acute exacerbation of chronic obstructive pulmonary disease: Complicated bronchitis secondary to above Rule out pulmonary embolism as contributory factor to worsening shortness of breath the last few days CT PE obtained, negative for PE However CT shows severe emphysema and moderate bronchial wall thickening with mucous plugging within the right lower lobe Patient was started on doxycycline on admission, nebs RTC, steroids Chest PT ordered Pulmonary consult if without improvement Mild acute diverticulitis CT abdomen pelvis obtained due to right flank pain Right flank pain a few weeks duration Nonobstructing bilateral nephrolithiasis Patient was started on Cipro and Flagyl for diverticulitis Anemia Patient history of chronic anemia as well Current hemoglobin 10, down from 12.5 We will obtain FOBT and will check H&H again today No signs of bleeding T10 acute/subacute compression fracture of superior endplate -Currently denies back pain -If back pain worsens, will consult orthopedics Hypertension, BP stable PAF, off Coumadin since 2019 secondary to GI bleed and patient compliant issues, patient NSR DM2, on oral medications, well controlled as of recent hemoglobin A1c of 5.1 last April 2020 Basal insulin, ISS BG goal 140-180, carb count coverage history of TIA as per records Ongoing tobacco abuse Nicotine patch as needed DT precautions/MELY S DVT prophylaxis. Lovenox subcu Full code Admission and Anticipated Discharge Date Admission Date: May 24, 2020 Subjective Patient seen in follow-up of increase shortness of breath, mild acute diverticulitis Patient is currently lying in bed, in no acute distress. Says the breathing is better, however on and off he has troubles breathing. He does say it is much better though since he came to the hospital. He is a supplemental oxygen, says that at home he does use 3.5 to 4 L. He has rhonchus pulmonary sounds, says that's normal for him as well. Continues to have some right flank pain. Mentions that he has appointment today at [facility], possibly this pulmonary, will let them know that patient is hospitalized now. He also mentioned that he has 2 caregivers, and does not seem to be happy with them. Ches PT ordered for some mucous plugging. Review of Systems Review of Systems: All systems reviewed & are unremarkable except as noted in HPI & below Constitutional: no fever and no chills Respiratory: + cough and + dyspnea (improved) Cardiovascular: no chest pain and no palpitations Gastrointestinal: no abdominal pain Genitourinary: + flank pain (right) Physical Exam Physical Exam: GENERAL: WD, WN, in NAD, on suppl. O2 4L via NC HEENT: NC/AT, Pale palpebral conjunctivae NECK : Supple, no tenderness CHEST : + Diffuse rhonchi, + exp. wheezes, no tenderness HEART : mild tachycardia, no obvious murmurs ABDOMEN: Some distention, nontender to palp. BACK : + R flank tenderness EXTREMITIES : No LE swelling/tenderness, moves extremities spontaneously NEUROLOGIC : Alert and oriented x3, answering questions appropriately, no facial asymmetry, no other gross focality SKIN: Pallor, warm Results & Data Results & [facility] ([facility]) Vital Signs (Past 12 Hours) Vital Signs Temp Pulse Pulse Resp BP Pulse Ox 05/25/20 08:20 36.4 C L 118 H 16 124/67 98 05/25/20 07:37 60 05/25/20 07:14 68 20 98 05/25/20 04:00 36.7 C 70 18 122/69 96 05/25/20 02:04 62 05/25/20 00:01 60 20 97 05/24/20 23:10 36.7 C 65 18 136/67 100 Laboratory Results 05/25/20 05/25/20 05/25/20 Range/Units 07:33 06:18 06:18 WBC (4.8-10.8) K/uL RBC (4.7-6.1) M/uL Hgb (14.0-18.0) g/dL Hct (42-52) % MCV (80-100) fL MCH (25-34) pg MCHC (32-36) g/dL RDW Std Deviation (36.4-46.3) fL RDW Coeff of Daquan (11.5-14.5) % Plt Count (130-400) K/uL MPV (7.4-10.4) fL Immature Gran % (Auto) % Neut % (Auto) % Lymph % (Auto) % Johnson % (Auto) % Eos % (Auto) % Baso % (Auto) % Neut # (Auto) (1.4-6.5) K/uL Lymph # (Auto) (1.2-3.4) K/uL Johnson # (Auto) (0.11-0.59) K/uL Eos # (Auto) (0-0.5) K/uL Baso # (Auto) (0-0.2) K/uL Immature Gran # (Auto) (0.00-0.02) K/uL PT 9.4 (9.0-12.0) Seconds INR 0.9 (0.9-1.1) Sodium 140 (136-145) mmol/L Potassium 4.6 (3.5-5.1) mmol/L Chloride 104 (98-107) mmol/L Carbon Dioxide 36 H (21-32) mmol/L Anion Gap -1.0 L (3-11) BUN 19 H (7-18) mg/dl Creatinine 0.80 (0.6-1.4) mg/dl Est Cr Clr Drug Dosing 76.5 ml/min Est GFR ( Amer) 106.4 Est GFR (Non-Af Amer) 91.8 BUN/Creatinine Ratio 24.0 H (10-20) Glucose 84 (70-99) mg/dl POC Glucose 120 H (70-99) mg/dl Calcium 8.7 (8.5-10.1) mg/dl 05/25/20 05/24/20 05/24/20 Range/Units 06:18 20:17 16:28 WBC 11.52 H (4.8-10.8) K/uL RBC 2.98 L (4.7-6.1) M/uL Hgb 10.0 L (14.0-18.0) g/dL Hct 30.6 L (42-52) % MCV 102.7 H (80-100) fL MCH 33.6 (25-34) pg MCHC 32.7 (32-36) g/dL RDW Std Deviation 49.4 H (36.4-46.3) fL RDW Coeff of Daquan 13.0 (11.5-14.5) % Plt Count 132 (130-400) K/uL MPV 11.5 H (7.4-10.4) fL Immature Gran % (Auto) 0.2 % Neut % (Auto) 85.8 % Lymph % (Auto) 5.6 % Johnson % (Auto) 8.2 % Eos % (Auto) 0.1 % Baso % (Auto) 0.1 % Neut # (Auto) 9.89 H (1.4-6.5) K/uL Lymph # (Auto) 0.65 L (1.2-3.4) K/uL Johnson # (Auto) 0.94 H (0.11-0.59) K/uL Eos # (Auto) 0.01 (0-0.5) K/uL Baso # (Auto) 0.01 (0-0.2) K/uL Immature Gran # (Auto) 0.02 (0.00-0.02) K/uL PT (9.0-12.0) Seconds INR (0.9-1.1) Sodium (136-145) mmol/L Potassium (3.5-5.1) mmol/L Chloride (98-107) mmol/L Carbon Dioxide (21-32) mmol/L Anion Gap (3-11) BUN (7-18) mg/dl Creatinine (0.6-1.4) mg/dl Est Cr Clr Drug Dosing ml/min Est GFR ( Amer) Est GFR (Non-Af Amer) BUN/Creatinine Ratio (10-20) Glucose (70-99) mg/dl POC Glucose 192 H 215 H (70-99) mg/dl Calcium (8.5-10.1) mg/dl 05/24/20 Range/Units 11:27 WBC (4.8-10.8) K/uL RBC (4.7-6.1) M/uL Hgb (14.0-18.0) g/dL Hct (42-52) % MCV (80-100) fL MCH (25-34) pg MCHC (32-36) g/dL RDW Std Deviation (36.4-46.3) fL RDW Coeff of Daquan (11.5-14.5) % Plt Count (130-400) K/uL MPV (7.4-10.4) fL Immature Gran % (Auto) % Neut % (Auto) % Lymph % (Auto) % Johnson % (Auto) % Eos % (Auto) % Baso % (Auto) % Neut # (Auto) (1.4-6.5) K/uL Lymph # (Auto) (1.2-3.4) K/uL Johnson # (Auto) (0.11-0.59) K/uL Eos # (Auto) (0-0.5) K/uL Baso # (Auto) (0-0.2) K/uL Immature Gran # (Auto) (0.00-0.02) K/uL PT (9.0-12.0) Seconds INR (0.9-1.1) Sodium (136-145) mmol/L Potassium (3.5-5.1) mmol/L Chloride (98-107) mmol/L Carbon Dioxide (21-32) mmol/L Anion Gap (3-11) BUN (7-18) mg/dl Creatinine (0.6-1.4) mg/dl Est Cr Clr Drug Dosing ml/min Est GFR ( Amer) Est GFR (Non-Af Amer) BUN/Creatinine Ratio (10-20) Glucose (70-99) mg/dl POC Glucose 217 H (70-99) mg/dl Calcium (8.5-10.1) mg/dl Medications Administered Current Inpatient Medications Acetaminophen (Acetaminophen 325 Mg Tab) 650 mg PO Q4H PRN PRN Reason: Pain or Fever Stop: 06/23/20 06:56 Acetylcysteine (Acetylcysteine 10% Inhal Soln 4 Ml Dispensed By Resp.) 5 ml INH BIDR [facility] Stop: 06/23/20 20:59 Last Admin: 05/25/20 07:12 Dose: 5 ml Documented by: Atorvastatin Calcium (Atorvastatin 40 Mg Tab) 40 mg PO QAM [facility] Stop: 06/23/20 08:59 Last Admin: 05/25/20 07:59 Dose: 40 mg Documented by: Dextrose (Dextrose 50% 50 Ml Syringe) 25 - 50 ml IV UD PRN; Protocol PRN Reason: Hypoglycemia Protocol Stop: 06/23/20 06:56 Docusate Sodium (Docusate Sodium 100 Mg Cap) 100 mg PO DAILY [facility] Stop: 06/23/20 08:59 Last Admin: 05/25/20 07:59 Dose: 100 mg Documented by: Doxycycline Hyclate (Doxycycline Hyclate 100 Mg Cap) 100 mg PO BID [facility] Stop: 05/31/20 20:59 Last Admin: 05/25/20 07:58 Dose: 100 mg Documented by: Enoxaparin Sodium (Enoxaparin Inj 30 Mg/0.3 Ml Syr) 30 mg SQ QAM [facility] Stop: 06/23/20 08:59 Last Admin: 05/25/20 07:58 Dose: 30 mg Documented by: Folic Acid (Folic Acid 1 Mg Tab) 1 mg PO QAM [facility] Stop: 06/24/20 08:59 Last Admin: 05/25/20 07:59 Dose: 1 mg Documented by: Gabapentin (Gabapentin 300 Mg Cap) 300 mg PO HS [facility]E Stop: 06/23/20 20:59 Last Admin: 05/24/20 20:45 Dose: 300 mg Documented by: Glucagon (Glucagon For Inj 1 Mg Vial) 1 mg SQ UD PRN; Protocol PRN Reason: Hypoglycemia Protocol Stop: 06/23/20 06:56 Glucose (Glucose 10 Tabs/Tube) 4 - 8 tabs PO UD PRN; Protocol PRN Reason: Hypoglycemia Protocol Stop: 06/23/20 06:56 Glucose (Glucose 40% Gel 15 Gm Tube) 15 - 30 gm PO UD PRN; Protocol PRN Reason: Hypoglycemia Protocol Stop: 06/23/20 06:56 Guaifenesin (Guaifenesin 600 Mg Tabcr) 600 mg PO Q12 [facility]E Stop: 06/24/20 08:59 Last Admin: 05/25/20 07:58 Dose: 600 mg Documented by: Lorazepam (Ativan) 1 mg in 2 mls @ 2 mls/min IV UD PRN; Protocol PRN Reason: EtOH Withdrawl AWSS Score 6,7 Stop: 06/23/20 06:56 Lorazepam (Ativan) 2 mg in 4 mls @ 4 mls/min IV UD PRN; Protocol PRN Reason: EtOH Withdrawl AWSS Score 8,9 Stop: 06/23/20 06:56 Lorazepam (Ativan) 3 mg in 6 mls @ 4 mls/min IV ONCE PRN; Protocol PRN Reason: EtOH Withdrawl AWSS Score >=10 Stop: 06/23/20 06:56 Promethazine HCl 6.25 mg/ (Sodium Chloride) 50.25 mls @ 201 mls/hr IV Q6H PRN PRN Reason: Nausea And Vomiting Stop: 06/23/20 06:56 Ciprofloxacin (Cipro / D5w) 400 mg in 200 mls @ 100 mls/hr IV Q12H SAE; Protocol Stop: 06/03/20 11:59 Last Infusion: 05/25/20 02:23 Dose: Infused Documented by: Insulin Aspart (Insulin Aspart 100 Units/Ml 3 Ml Pen) 0 units SC ACHS SAE Stop: 06/23/20 06:56 Last Admin: 05/25/20 08:00 Dose: 3 units Documented by: Insulin Glargine (Insulin Glargine Solostar 100 Units/Ml 3 Ml Pen) 5 units SC DAILY [facility]E Stop: 06/23/20 08:59 Last Admin: 05/25/20 08:00 Dose: 5 units Documented by: Ipratropium [place] (Ipratropium [place] Neb Soln 0.02% 2.5 Ml Vial) 0.5 mg INH Q6R SAE Stop: 06/23/20 06:59 Last Admin: 05/25/20 07:13 Dose: 0.5 mg Documented by: Levalbuterol HCl (Levalbuterol 1.25mg/0.5ml Neb) 1.25 mg INH Q6R SAE Stop: 06/23/20 06:59 Last Admin: 05/25/20 07:12 Dose: 1.25 mg Documented by: Levothyroxine Sodium (Levothyroxine Sodium 50 Mcg Tablet) 50 mcg PO DAILYBB SAE Stop: 06/24/20 06:29 Last Admin: 05/25/20 06:18 Dose: 50 mcg Documented by: Metronidazole (Metronidazole 500 Mg Tab) 500 mg PO TID SAE Stop: 06/03/20 13:59 Last Admin: 05/25/20 08:00 Dose: 500 mg Documented by: Miscellaneous (Carbohydrates For Hypoglycemia ) 15 - 30 gm PO UD PRN PRN Reason: Hypoglycemia Protocol Stop: 06/23/20 06:56 Montelukast Sodium (Montelukast Sodium 10 Mg Tablet) 10 mg PO PM SAE Stop: 06/23/20 20:59 Last Admin: 05/24/20 20:45 Dose: 10 mg Documented by: Multivitamins (Multivitamin Tab) 1 tab PO QAM SAE Stop: 06/24/20 08:59 Last Admin: 05/25/20 08:01 Dose: 1 tab Documented by: Oxycodone HCl (Oxycodone Hcl Ir 5 Mg Tab (Immediate Release)) 5 mg PO Q4H PRN PRN Reason: Pain Stop: 06/07/20 06:56 Pantoprazole Sodium (Pantoprazole 40 Mg Tab) 40 mg PO DAILY SAE Stop: 06/23/20 08:59 Last Admin: 05/25/20 07:59 Dose: 40 mg Documented by: Prednisone (Prednisone 20 Mg Tab) 40 mg PO DAILY SAE Stop: 05/29/20 08:59 Last Admin: 05/25/20 07:59 Dose: 40 mg Documented by: Sertraline HCl (Sertraline Hcl 100 Mg Tablet) 100 mg PO DAILY SAE Stop: 06/23/20 08:59 Last Admin: 05/25/20 07:59 Dose: 100 mg Documented by: Thiamine HCl (Thiamine Hcl 100 Mg Tab) 100 mg PO QAM SAE Stop: 06/24/20 08:59 Last Admin: 05/25/20 08:00 Dose: 100 mg Documented by: Verapamil HCl (Verapamil Hcl 120 Mg Tabcr) 120 mg PO DAILY SAE Stop: 06/23/20 08:59 Last Admin: 05/25/20 07:59 Dose: 120 mg Documented by:
[2020-05-25] MEDS ORDERED: SODIUM CHLORIDE 0.9% 1000ML 500 ML IV ONE (11:35)
[2020-05-25 11:54] LABS: Hematocrit (blood only) 33.2 % (42-52); Hemoglobin 10.7 g/dL (14.0-18.0)
--- NOTE | 2020-05-25 12:10 | Consultation ---
Date of Consultation May 25, 2020 Assessment & Plan (1) Fracture, thoracic vertebra, compression: Patien has acute versus subacute T10 compression fracture. This has been diagnosed on an abdominal and pelvic CT scan. Would therefore like to pursue more detailed imaging for further evaluation. I will order an MRI of the thoracic spine. His pain seems to be quite tolerable. Would therefore not recommend any type of aggressive surgical intervention. May benefit from a TLSO brace but again due to his severe COPD this might be challenging for him. T Supervising Physician Co-Signing Physician Notes Dr. Apolinar Beltran History of Present Illness Brynn is a 70-year-old gentleman we are asked to see in consultation regarding a thoracic compression fracture. Patient states he has had an ache in the thoracolumbar area for the past few weeks. No specific accident, trauma, fall. He rates the pain to be a 3 out of 10. It does not radiate around the chest or abdominal wall or down the lower extremities. Normally at home he ambulates independently. He is trialed ice and heat at home. Denies bowel bladder changes. Attending Physician: Adiel Garrison MD Allergies Allergy/AdvReac Type Severity Reaction Status Date / Time turkey Allergy Unknown Verified 03/22/19 11:08 Home Medications Medication Instructions Recorded Confirmed Type atorvastatin 40 mg PO QAM 01/28/18 05/24/20 History docusate sodium [Colace] 100 mg PO DAILY 01/28/18 05/24/20 History gabapentin 300 mg PO HS 01/28/18 05/24/20 History metformin 1,000 mg PO DAILY 04/23/18 05/24/20 History albuterol sulfate 2.5 mg INHALATION TID #0 ml 04/30/18 05/24/20 Rx ipratropium bromide 0.5 mg INHALATION TID #0 ml 04/30/18 05/24/20 Rx Trelegy Ellipta 1 inh INHALATION DAILY 02/13/19 05/24/20 History levothyroxine 50 mcg PO DAILY 02/13/19 05/24/20 History montelukast 10 mg PO PM 02/13/19 05/24/20 History pantoprazole 40 mg PO DAILY 02/13/19 05/24/20 History sertraline 100 mg PO DAILY 02/13/19 05/24/20 History verapamil 120 mg PO DAILY 02/13/19 05/24/20 History acetaminophen 650 mg PO Q6 PRN MDD 3g/24hr 02/22/19 05/24/20 History hydroxyzine HCl 50 mg PO Q6 PRN 02/22/19 05/24/20 History guaifenesin 200 mg PO TID PRN #15 tab 04/22/19 05/24/20 Rx Patient History Medical History (Updated 05/25/20 @ 12:11 by Lissy Resendez PA-C) Alcohol use BPH (benign prostatic hyperplasia) Chronic respiratory failure with hypoxia COPD (chronic obstructive pulmonary disease) Depression Diabetes mellitus, type II Dyslipidemia Esophageal stenosis "s/p dilation June 2016" GERD (gastroesophageal reflux disease) HTN (hypertension) Hypothyroidism Leg edema Mood disorder Paroxysmal atrial fibrillation Superficial thrombophlebitis "2009" TIA (transient ischemic attack) "1982" Surgical History History of cataract surgery S/P bronchoscopy Family History Other Diabetes Social History Smoking Status: Current every day smoker Tobacco Type: Cigarettes Cigarettes Per Day: 20; Second Hand Exposure: No; Do You Dip or Chew Tobacco: No; Tobacco Cessation Education Requested by Patient: No Hx Alcohol Use: Yes Alcohol type: beer Alcohol Intake Frequency Comment: 2 beers a day Hx Substance Use: No Preferred Language: [place] Zealander Communication Ability: Effective 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 Beliefs That Will Affect Care: None marital status: Single Current Living Situation: Alone Current Living Situation Comment: has care givers on and th How many Children do You have: 0 Other Information That Helps Us Care for You: No Feels Safe at Home: Yes Safety Concerns: Feels Safe At This Time Assistive Devices: Denture - Upper, Denture - Lower, Glasses, Oxygen - Continuous and Walker Review of Systems Review of Systems: All systems reviewed & are unremarkable except as noted in HPI & below Physical Exam Physical Exam: He is seen in bed 250 bed 1 he is alert and oriented x3 no acute distress He is modestly tender to palpation across the thoracolumbar spine No lacerations or ecchymosis noted. Strength is intact bilateral lower extremities Constitutional: WD/WN, vitals as above Eyes: normal visual stevens by confrontation ENMT: external ear and nose normal, oropharynx normal Neck: normal visual inspection Respiratory: normal respiratory effort Cardiovascular: Extremities: normal capillary refill Chest (Breasts): Chest: normal inspection of chest Gastrointestinal (Abdomen): Inspection/Auscultation: abdomen normal to inspection Musculoskeletal: no cyanosis or clubbing, extremities motor strength 5/5 Spine: thoracic spine normal to inspection and lumbar spine normal to inspection Skin: no rashes, warm and dry Neurologic: normal touch/pain/proprioception, moves all extremities and awake Psychiatric: A+Ox3, euthymic affect Results & Data ([facility]) Vital Signs (Past 12 Hours) Vital Signs Temp Pulse Pulse Resp BP Pulse Ox 05/25/20 11:39 80 118/62 05/25/20 11:29 36.6 C 67 16 87/54 L 96 05/25/20 08:20 36.4 C L 118 H 16 124/67 98 05/25/20 07:37 60 05/25/20 07:14 68 20 98 05/25/20 04:00 36.7 C 70 18 122/69 96 05/25/20 02:04 62 Diagnostic Findings [facility], [id number] CT Scan Report Patient: BRYNN QUIROGA EAdmit Date: 05/24/20MR#: [id number]: [address] [facility] ID:[id number]: [address]Birth Date: [address] [place] [address] Zip: [place], [place] [address]Dlj: 68Location: 2WSex: MRoom/Bed: [id number] Phy: Rory Pollard M.D.Diagnosis: COPD EXACERBATIONPri Phy: PCP,NOService Date: 05/24/20Fam Phy:Interpreting Phy: Leodan WillsAdmcynthia Phy: Dell Hamilton MD Ordering Phy: Dell Hamilton MD cc: ~ ABDOMEN AND PELVIS CT WITHOUT CONTRAST HISTORY: Acute bilateral flank pain with shortness of breath FLANK PAIN TECHNIQUE: Multiaxial CT images of the abdomen and pelvis were performed without contrast. A dose lowering technique was utilized adhering to the principles of ALARA. COMPARISON STUDY: CTA chest of same day, CT abdomen and pelvis 04/23/2018 FINDINGS: Imaged inferior cardiac chambers are unremarkable. Emphysema with bibasilar mucous plugging. No pneumatosis or pneumoperitoneum. Limited evaluation of the solid abdominal organs without the use of IV contrast. Within the limitations of the study, the spleen, pancreas, gallbladder and liver appear unremarkable. Thickening of the adrenal glands suggestive of hyperplasia. 3 nonobstructing calculi of the right kidney measure up to 6 mm. 3 mm nonobstructing calculus of the inferior pole left kidney. Mild nonspecific bilateral perinephric stranding. No ureteral calculi or obstructive uropathy identified. Pelvic structures are suboptimally visualized secondary to streak artifact from right hip total joint arthroplasty. Mild bladder wall thickening with partial distention. Mild prostamegaly. Calcified plaque of the aorta without aneurysm. No adenopathy. No bowel obstruction. Mild rectal wall thickening, likely secondary to partial distention. There is an inflamed sigmoid diverticulum on image 222 series 3. No evidence of perforation or abscess. Mild associated focal wall thickening of the sigmoid. Normal appendix. Unremarkable soft tissues. Chronic T12 compression deformity. Acute versus subacute 25% superior endplate compression deformity at T10 with mild paravertebral edema. No significant retropulsion. IMPRESSION: 1. Mild acute sigmoid diverticulitis. No abscess or perforation. 2. No bowel obstruction. 3. Nonobstructing bilateral nephrolithiasis. 4. Acute versus subacute T10 25% superior endplate compression deformity 5. Additional findings as above. ACT 112: Negative or not required by law. The above report was generated using voice recognition software. It may contain grammatical, syntax or spelling errors. Electronically signed by: Shalom Wills M.D. 05/24/2020 8:49 AM Dictated: 05/24/20 0834Transcribed: 05/24/20 0834
[2020-05-25] MEDS: LIDOCAINE 5% 1 PATCH TD SCH (14:25)
--- NOTE | 2020-05-25 14:28 | Magnetic Resonance Report ---
THORACIC SPINE MRI HISTORY: Mid back pain. eval T10 compression fracture TECHNIQUE: Multiplanar multisequence MRI of the thoracic spine was performed without the use of contr ast. COMPARISON: Chest CTA 05/24/2020. FINDINGS: There is confirmation of the moderate super endplate compression fracture at T10 which demonstrates a pproximately 40% loss of height. There is marrow edema within the T10 vertebral body consistent with an acute fracture. There is also a small acute nondisplaced compression fracture at the inferior endp late of T9 posteriorly. No significant retropulsion. There is a Schmorl's node along the superior end plate of T11. Old mild superior endplate compression deformity at T12 is again noted. The remaining t horacic spine vertebral bodies are maintained. The thoracic spinal cord is suboptimally assessed due to the motion artifact but is likely normal in signal intensity and caliber. Small broad-based looper fixer ior disc bulge at T9-T10 without significant central canal narrowing. 3 mm of retropulsion the looper fixer ior superior corner of T12 without significant central canal narrowing. Paravertebral edema at the T9 and T10 levels consistent with the acute fractures. IMPRESSION: 1. Acute moderate superior endplate compression fracture at T10. No significant retropulsion. 2. Acute small focal inferior endplate compression fracture at T9 without significant loss of height. 3. Old T12 compression deformity, unchanged. ACT 112: Negative or not required by law. Electronically signed by: Joshua Guzman M.D. 05/25/2020 2:27 PM
[2020-05-25] MEDS: ALBUMIN 25% 12.5 GM/50 ML VIAL IV SCH (16:34)
[2020-05-25] MEDS: GABAPENTIN 300 MG CAP PO SCH (20:31)
[2020-05-25] MEDS: MONTELUKAST SODIUM 10 MG TABLET PO SCH (20:31)
[2020-05-25 20:45] LABS: Hematocrit (blood only) 32.2 % (42-52); Hemoglobin 10.2 g/dL (14.0-18.0)
[2020-05-26] MEDS: CIPROFLOXACIN / D5W 400 MG/200 ML BAG IV SCH ×2 (00:46→12:32)
[2020-05-26] MEDS: IPRATROPIUM BROMIDE NEB SOLN 0.02% 2.5 ML VIAL INH SCH ×4 (01:00→19:44)
[2020-05-26] MEDS: LEVALBUTEROL 1.25MG/0.5ML NEB INH SCH ×4 (01:00→19:44)
[2020-05-26] MEDS: LEVOTHYROXINE SODIUM 50 MCG TABLET PO SCH (05:49)
[2020-05-26 07:53] LABS: Hematocrit (blood only) 33.4 % (42-52); Hemoglobin 10.8 g/dL (14.0-18.0); Mean Corpuscular Hemoglobin 33.6 pg (25-34); Mean Corpuscular Hgb Conc 32.3 g/dL (32-36); Mean Platelet Volume 11.3 fL (7.4-10.4); Platelet Count 140 K/uL (130-400); RDW Standard Deviation 49.3 fL (36.4-46.3); Red Blood Count 3.21 M/uL (4.7-6.1); White Blood Count 10.56 K/uL (4.8-10.8)
[2020-05-26] MEDS: ACETYLCYSTEINE 10% INHAL SOLN 4 ML **DISPENSED BY RESP. INH SCH ×2 (07:53→19:44)
[2020-05-26] MEDS: INSULIN ASPART 100 UNITS/ML 3 ML PEN SC SCH ×4 (08:14→21:47)
[2020-05-26] MEDS: VERAPAMIL HCL 120 MG TABCR PO SCH (08:16)
[2020-05-26] MEDS: predniSONE 20 MG TAB PO SCH (08:16)
[2020-05-26] MEDS: guaiFENesin 600 MG TABCR PO SCH ×2 (08:16→21:44)
[2020-05-26] MEDS: ATORVASTATIN 40 MG TAB PO SCH (08:17)
[2020-05-26] MEDS: MULTIVITAMIN TAB PO SCH (08:17)
[2020-05-26] MEDS: DOCUSATE SODIUM 100 MG CAP PO SCH (08:17)
[2020-05-26] MEDS: INSULIN GLARGINE SOLOSTAR 100 UNITS/ML 3 ML PEN SC SCH (08:17)
[2020-05-26] MEDS: THIAMINE HCL 100 MG TAB PO SCH (08:17)
[2020-05-26] MEDS: PANTOprazole 40 MG TAB PO SCH (08:17)
[2020-05-26] MEDS: DOXYCYCLINE HYCLATE 100 MG CAP PO SCH ×2 (08:17→21:44)
[2020-05-26] MEDS: metroNIDAZOLE 500 MG TAB PO SCH ×3 (08:17→21:43)
[2020-05-26] MEDS: LIDOCAINE 5% 1 PATCH TD SCH (08:17)
[2020-05-26] MEDS: FOLIC ACID 1 MG TAB PO SCH (08:17)
[2020-05-26] MEDS: SERTRALINE HCL 100 MG TABLET PO SCH (08:18)
--- NOTE | 2020-05-26 08:27 | Hospitalist Progress Note ---
Date of Service May 26, 2020 Assessment & Plan (1) Acute exacerbation of chronic obstructive pulmonary disease: Acute on chronic hypoxic, hypercarbic resp. failure in the setting of COPD exacerbation and bronchitis Complicated bronchitis secondary to above Rule out pulmonary embolism as contributory factor to worsening shortness of breath the last few days CT PE obtained, negative for PE However CT shows severe emphysema and moderate bronchial wall thickening with mucous plugging within the right lower lobe Patient was started on doxycycline on admission, nebs RTC, steroids Chest PT ordered, flutter valve Pulmonary medicine consulted- methylprednisolone IV BID, BiPAP, trilogy for home Mild acute diverticulitis CT abdomen pelvis obtained due to right flank pain Right flank pain a few weeks duration Nonobstructing bilateral nephrolithiasis Patient was started on Cipro and Flagyl for diverticulitis Anemia Patient history of chronic anemia as well Current hemoglobin 10, down from 12.5 We will obtain FOBT and will monitor H&H No signs of bleeding H&H stable T10 acute/subacute compression fracture of superior endplate -Currently denies significant back pain -orthopedics consulted Hypertension, BP stable PAF, off Coumadin since 2019 secondary to GI bleed and patient compliant issues, patient NSR DM2, on oral medications, well controlled as of recent hemoglobin A1c of 5.1 last April 2020 Basal insulin, ISS BG goal 140-180, carb count coverage history of TIA as per records Ongoing tobacco abuse Nicotine patch as needed, cessation counseling provided DT precautions/MELY S DVT prophylaxis. SCDs Full code Admission and Anticipated Discharge Date Admission Date: May 24, 2020 Subjective Patient seen in follow-up of increase shortness of breath, mild acute diverticulitis Patient is currently lying in bed, feels more short of breath and wheezy. He is a supplemental oxygen, says that at home he does use 3.5 to 4 L. Ches PT ordered for some mucous plugging. Pt did not use this AM Had appointment at [facility] w/pulmonary scheduled for yesterday, the office w as notified that patient is hospitalized now. Review of Systems Review of Systems: All systems reviewed & are unremarkable except as noted in HPI & below Constitutional: no fever and no chills Respiratory: + dyspnea Cardiovascular: no chest pain and no palpitations Gastrointestinal: no abdominal pain, no nausea and no vomiting Physical Exam Physical Exam: GENERAL: WD, WN, on suppl. O2 4L via NC HEENT: NC/AT, Pale palpebral conjunctivae NECK : Supple, no tenderness CHEST : + diffuse rhonchi, + exp. wheezes (worsened from previous exam), mild work of breathing also noted HEART : rrr, no obvious murmurs ABDOMEN: Some distention, soft, nontender to palp. BACK : + R flank tenderness EXTREMITIES : No LE swelling/tenderness, moves extremities spontaneously NEUROLOGIC : Alert and oriented x3, answering questions appropriately, no facial asymmetry, no other gross focality SKIN: Pallor, warm Results & Data Results & Data ([facility]) Vital Signs (Past 12 Hours) Vital Signs Temp Pulse Pulse Resp BP Pulse Ox 05/26/20 07:56 74 18 98 05/26/20 07:45 36.5 C 71 20 146/77 H 91 05/26/20 07:30 72 05/26/20 03:27 63 05/26/20 03:00 36.7 C 63 20 145/73 H 97 05/26/20 01:00 81 18 95 05/25/20 22:55 37 C 67 20 136/75 97 Laboratory Results 05/26/20 05/26/20 05/26/20 Range/Units 20:10 16:19 11:10 WBC (4.8-10.8) K/uL RBC (4.7-6.1) M/uL Hgb (14.0-18.0) g/dL Hct (42-52) % MCV (80-100) fL MCH (25-34) pg MCHC (32-36) g/dL RDW Std Deviation (36.4-46.3) fL RDW Coeff of Daquan (11.5-14.5) % Plt Count (130-400) K/uL MPV (7.4-10.4) fL Sodium (136-145) mmol/L Potassium (3.5-5.1) mmol/L Chloride (98-107) mmol/L Carbon Dioxide (21-32) mmol/L Anion Gap (3-11) BUN (7-18) mg/dl Creatinine (0.6-1.4) mg/dl Est Cr Clr Drug Dosing ml/min Est GFR ( Amer) Est GFR (Non-Af Amer) BUN/Creatinine Ratio (10-20) Glucose (70-99) mg/dl POC Glucose 193 H 139 H 131 H (70-99) mg/dl Calcium (8.5-10.1) mg/dl Phosphorus (2.5-4.9) mg/dl Magnesium (1.8-2.4) mg/dl 05/26/20 05/26/20 05/26/20 Range/Units 07:38 07:21 07:21 WBC 10.56 (4.8-10.8) K/uL RBC 3.21 L (4.7-6.1) M/uL Hgb 10.8 L (14.0-18.0) g/dL Hct 33.4 L (42-52) % MCV 104.0 H (80-100) fL MCH 33.6 (25-34) pg MCHC 32.3 (32-36) g/dL RDW Std Deviation 49.3 H (36.4-46.3) fL RDW Coeff of Daquan 13.0 (11.5-14.5) % Plt Count 140 (130-400) K/uL MPV 11.3 H (7.4-10.4) fL Sodium 139 (136-145) mmol/L Potassium 4.2 (3.5-5.1) mmol/L Chloride 103 (98-107) mmol/L Carbon Dioxide 35 H (21-32) mmol/L Anion Gap 1.0 L (3-11) BUN 23 H (7-18) mg/dl Creatinine 0.83 (0.6-1.4) mg/dl Est Cr Clr Drug Dosing 73.5 ml/min Est GFR ( Amer) 104.8 Est GFR (Non-Af Amer) 90.4 BUN/Creatinine Ratio 28.2 H (10-20) Glucose 84 (70-99) mg/dl POC Glucose 90 (70-99) mg/dl Calcium 8.5 (8.5-10.1) mg/dl Phosphorus 2.7 (2.5-4.9) mg/dl Magnesium 1.9 (1.8-2.4) mg/dl
[2020-05-26 08:32] LABS: BUN Creatinine Ratio 28.2 (10-20); Calcium 8.5 mg/dl (8.5-10.1); Creatinine Clr Calc Pharmacy 73.5 ml/min; Est GFR (African American) 104.8; Est GFR (Non-African American) 90.4; Magnesium 1.9 mg/dl (1.8-2.4); Phosphorus 2.7 mg/dl (2.5-4.9); Potassium 4.2 mmol/L (3.5-5.1)
[2020-05-26] MEDS ORDERED: IPRATROPIUM BROMIDE NEB SOLN 0.02% 2.5 ML VIAL INH PRN (10:44)
[2020-05-26] MEDS ORDERED: LEVALBUTEROL 1.25MG/0.5ML NEB INH PRN (10:45)
[2020-05-26] MEDS ORDERED: XOPENEX/ATROVENT 1.25mg/0.5MG NEB COMBO NEB SCH (13:00)
[2020-05-26] MEDS ORDERED: methylPREDNISolone 40 MG in SYRINGE 0 ML IV ONE (13:15)
--- NOTE | 2020-05-26 17:15 | Pulmonary Consultation ---
Date of Consultation May 26, 2020 Assessment & Plan (1) Acute exacerbation of chronic obstructive pulmonary disease: In summary, this is a 70-year-old male with a history of severe COPD, significant [id number] history of tobacco abuse, hypertension, PAF not on anticoagulation, history of TIA, type 2 diabetes, chronic anemia presented to [facility] for progressive shortness of breath on exertion, found to be in [id number] hypoxemic, hypercapnic respiratory failure from COPD exacerbation. Mbtbi-cy-zozuyus hypoxemic, hypercapnic respiratory failure. Based on the presentation and description of his symptoms, alongside review of his CTA-Chest and significant history of COPD, do strongly suspect that this respiratory failure is being driven by an exacerbation of his COPD. There was no evidence for acute PE on CT-A. There are no gross signs of infection aside from his diverticulitis. He does not have overt symptoms of volume overload, and his last echocardiogram in 02/2019 did demonstrate an LVEF of 60-65% with mild LVH, no RWMAs. However, given the degree of his COPD, elevated right ventricular pressures are certainly a concern. Recommend checking a BNP and, if inconclusive, an echo, and considering diuresis. Exacerbation of severe chronic obstructive pulmonary disease. Patient has a known long-term history of COPD requiring multiple therapies at home. At this time, there does not to be a clear trigger or precipitating factor for this current flare. However, agree with the current regimen including scheduled levalbuterol, ipratropium, acetylcysteine, guaifenesin, and prednisone. Also recommend adding SoluMedrol 40mg IV b.i.d. Given the concurrent treatment for diverticulitis, can consider discontinuing doxycycline considering the coverage provided by ciprofloxacin. Also discussed with patient the option of noninvasive ventilation at home. Tobacco abuse. We spent significant time discussing his tobacco use habits. Engaged in reflective listening. He has an approx. 90 pack-year history. I provided education regarding improvements that hed notice in his respiratory function and general wellbeing with cessation. He notes interest in the past with cutting back / discontinuing, but was not eager to discuss further at the time of our visit. I would say he is likely between precontemplative and contemplative. Offered connecting him with resources. Given that hes had interest in the past, would continue to discuss / encourage cessation throughout this hospitalization. Thank you for this consultation. Please refer to Dr. Gann documentation for further details, recommendations. (2) Pneumonia: Laterality: bilateral Lung location: unspecified part of lung Pneumonia type: due to unspecified organism Qualified Code(s): J18.9 - Pneumonia, unspecified organism (3) COPD (chronic obstructive pulmonary disease): COPD type: unspecified COPD Qualified Code(s): J44.9 - Chronic obstructive pulmonary disease, unspecified (4) Tobacco use: (5) HTN (hypertension): (6) Diabetes mellitus, type II: (7) TIA (transient ischemic attack): (8) Paroxysmal atrial fibrillation: (9) GERD (gastroesophageal reflux disease): (10) COPD (chronic obstructive pulmonary disease): Supervising Physician Co-Signing Physician Notes Dr. Choi was the resident-physician during care of patient. I separately evaluated patient for renteria portions of the history and the exam. I was present during the critical portion of medical decision making, and I discussed the case with the resident. I generally agree with the findings and plan except for any additions/exceptions noted. Patient with longstanding COPD chronic hypoxic respiratory failure presenting to the hospital due to increasing shortness of breath. He notes that he is only able to walk 30 to 40 feet at baseline prior to getting short of breath. He has been wheezing more frequently. He gets short of breath with eating and talking. He is unclear about his home medications. He notes that he takes prednisone daily, but does not know the dose. He has numerous fractures and now has a vertebral thoracic fracture. He has acute on chronic hypercapnic respiratory failure. We will trial him on BiPAP in the hospital and suggest that he be discharged with noninvasive ventilator/trilogy. Case management consult has been placed for trilogy ventilator. I am increased his dose of methylprednisone to 40 mg twice daily and then he can quickly be tapered back to his home dose of prednisone over the next 5 to 7 days. I do not see any acute pulmonary infection and recommend discontinue antibiotics at this time. Continue with flutter valve for mucociliary clearance. Strongly encouraged him to consider complete smoking cessation. We also discussed CODE STATUS as he is currently listed as a full code. Long-term prognosis is poor. Consider alpha-1 trypsin testing as an outpatient completed. History of Present Illness Attending Physician: Dr. Arias This 70-year-old female has a notable past medical history of severe COPD Gold stage D, significant tobacco abuse (1.5ppd x 58yr = ~90py), hypertension, paroxysmal atrial fibrillation not on anticoagulation because of GI bleed, history of TIA, type 2 diabetes, and chronic anemia who presented to [facility] on 05/24 for evaluation of ongoing shortness of breath worsening over the last month. Pulmonology service was consulted to aid with his COPD treatment. Patient says that, at baseline, he is quite short of breath and requires between 3 to 4 L/min supplemental oxygen. However, over the preceding few days, he notes that his shortness of breath had gotten much worseprimarily with exertion, but also taken longer than usual to catch his breath when resting. He said that this is gradually worsened over the last month. He notes that over the last several months, his oxygen utilization has increasedhe notes that approximately half year to a year ago, he only required 3 L/min, but is now closer to 4. He denies any chest pain, pressure, fluid accumulation around this time. Denies any recent illness. Denies any recent travel. Denies any new allergen exposures. At home, he says that he utilizes a number of treatments to control his COPD. This includes daily oral prednisone, 4 times daily nebulizer treatments, and multiple inhalers. He said that he no longer has a PCP that he is able to follow. He notes that he follows with [facility] pulmonology for the majority of his pulmonary care. Upon his arrival to [facility], Turner was found to be in acute hypercapnic respiratory failure. CT scan of the chest did not identify any pulmonary emboli, but did reveal known severe emphysema alongside bronchial wall thickening, mucous plugging, and compression fractures within the thoracic vertebrae. Because of flank pain he had been experiencing, he also got a CT of the abdomen and pelvis, which did this. He was started on duo nebs, doxycycline. His current respiratory regimen includes Xopenex, Atrovent guaifenesin, Mucomyst, Singulair, prednisone, doxycycline, Xopenex as needed. Allergies Allergy/AdvReac Type Severity Reaction Status Date / Time turkey Allergy Unknown Verified 03/22/19 11:08 Home Medications Medication Instructions Recorded Confirmed Type atorvastatin 40 mg PO QAM 01/28/18 05/24/20 History docusate sodium [Colace] 100 mg PO DAILY 01/28/18 05/24/20 History gabapentin 300 mg PO HS 01/28/18 05/24/20 History metformin 1,000 mg PO DAILY 04/23/18 05/24/20 History albuterol sulfate 2.5 mg INHALATION TID #0 ml 04/30/18 05/24/20 Rx ipratropium bromide 0.5 mg INHALATION TID #0 ml 04/30/18 05/24/20 Rx Trelegy Ellipta 1 inh INHALATION DAILY 02/13/19 05/24/20 History levothyroxine 50 mcg PO DAILY 02/13/19 05/24/20 History montelukast 10 mg PO PM 02/13/19 05/24/20 History pantoprazole 40 mg PO DAILY 02/13/19 05/24/20 History sertraline 100 mg PO DAILY 02/13/19 05/24/20 History verapamil 120 mg PO DAILY 02/13/19 05/24/20 History acetaminophen 650 mg PO Q6 PRN MDD 3g/24hr 02/22/19 05/24/20 History hydroxyzine HCl 50 mg PO Q6 PRN 02/22/19 05/24/20 History guaifenesin 200 mg PO TID PRN #15 tab 04/22/19 05/24/20 Rx Patient History Medical History (Updated 05/25/20 @ 12:11 by Lissy Resendez PA-C) Alcohol use BPH (benign prostatic hyperplasia) Chronic respiratory failure with hypoxia COPD (chronic obstructive pulmonary disease) Depression Diabetes mellitus, type II Dyslipidemia Esophageal stenosis "s/p dilation June 2016" GERD (gastroesophageal reflux disease) HTN (hypertension) Hypothyroidism Leg edema Mood disorder Paroxysmal atrial fibrillation Superficial thrombophlebitis "2009" TIA (transient ischemic attack) "1982" Surgical History History of cataract surgery S/P bronchoscopy Family History Other Diabetes Social History Smoking Status: Current every day smoker Tobacco Type: Cigarettes Cigarettes Per Day: 20; Second Hand Exposure: No; Do You Dip or Chew Tobacco: No; Tobacco Cessation Education Requested by Patient: No Hx Alcohol Use: Yes Alcohol type: beer Alcohol Intake Frequency Comment: 2 beers a day Hx Substance Use: No Preferred Language: Turkmen Communication Ability: Effective Meat Clerk Required: No Beliefs That Will Affect Care: None marital status: Single Current Living Situation: Alone Current Living Situation Comment: has care givers on Tues and thurs How many Children do You have: 0 Other Information That Helps Us Care for You: No Feels Safe at Home: Yes Safety Concerns: Feels Safe At This Time Assistive Devices: Denture - Upper, Denture - Lower, Glasses, Oxygen - Continuous and Walker Review of Systems Review of Systems: as per hpi Physical Exam Physical Exam: General: Tired appearing 70-year-old male who is lying back in his hospital bed, watching TV upon my arrival. He speaks freely and in no acute distress HEENT: Neck veins are flat, mild use of accessory muscles. Trachea midline. Cardiac: Normal rate, regular rhythm. S1 and S2 are present. Because breath sounds are so prominent, could not truly evaluate for murmurs, rubs, gallops. Pulmonary: Mild to moderate respiratory effort with symmetric expansion of the chest. Patient is barrel chested. There are mild use of accessory muscles. He does not have appreciable conversational dyspnea. Lungs demonstrate diffuse wheezes throughout all lung stevens, most prominent at the bases; the expiratory phase is prolonged compared to inspiration. Extremities: No peripheral edema appreciated in the lower extremities bilaterally Skin: no rashes, warm and dry Neurologic: CN's II-XI intact bilaterally Psychiatric: A+Ox3, euthymic affect Results & Data Results & Data ([facility]) Vital Signs (Past 12 Hours) Vital Signs Temp Pulse Pulse Resp BP Pulse Ox 05/26/20 16:22 90 05/26/20 14:59 36.6 C 65 20 132/76 99 05/26/20 13:12 73 22 96 05/26/20 11:23 36.4 C L 68 20 115/68 96 05/26/20 07:56 74 18 98 05/26/20 07:45 36.5 C 71 20 146/77 H 91 05/26/20 07:30 72 vital signs labs and imaging reviewed Resident Activity Tracking Resident Involvement: Resident Care Provided Care Provided: Adult Hospital Medicine
--- NOTE | 2020-05-26 17:36 | Billing Data ---
Date of Service May 26, 2020 Coding Level of Care Code 73828 Initial Inpt Care Lvl 3
[2020-05-26] MEDS: methylPREDNISolone 40 MG in SYRINGE 0 ML IV SCH (21:42)
[2020-05-26] MEDS: MONTELUKAST SODIUM 10 MG TABLET PO SCH (21:43)
[2020-05-26] MEDS: GABAPENTIN 300 MG CAP PO SCH (21:44)
[2020-05-27] MEDS: CIPROFLOXACIN / D5W 400 MG/200 ML BAG IV SCH ×3 (00:11→23:31)
[2020-05-27] MEDS: IPRATROPIUM BROMIDE NEB SOLN 0.02% 2.5 ML VIAL INH SCH ×4 (00:29→19:16)
[2020-05-27] MEDS: LEVALBUTEROL 1.25MG/0.5ML NEB INH SCH ×4 (00:30→19:16)
[2020-05-27] MEDS: LEVOTHYROXINE SODIUM 50 MCG TABLET PO SCH (05:37)
[2020-05-27] MEDS: ACETYLCYSTEINE 10% INHAL SOLN 4 ML **DISPENSED BY RESP. INH SCH ×2 (07:04→19:16)
[2020-05-27 07:13] LABS: Hematocrit (blood only) 32.4 % (42-52); Hemoglobin 10.6 g/dL (14.0-18.0); Mean Corpuscular Hemoglobin 33.3 pg (25-34); Mean Corpuscular Hgb Conc 32.7 g/dL (32-36); Mean Corpuscular Volume 101.9 fL (80-100); Platelet Count 132 K/uL (130-400); RDW Coefficient of Variation 12.7 % (11.5-14.5); RDW Standard Deviation 47.7 fL (36.4-46.3); Red Blood Count 3.18 M/uL (4.7-6.1); White Blood Count 8.03 K/uL (4.8-10.8)
[2020-05-27 07:48] LABS: BUN Creatinine Ratio 26.7 (10-20); Calcium 8.2 mg/dl (8.5-10.1); Creatinine Clr Calc Pharmacy 68.8 ml/min; Est GFR (African American) 102.3; Est GFR (Non-African American) 88.3; Potassium 4.2 mmol/L (3.5-5.1)
[2020-05-27] MEDS: metroNIDAZOLE 500 MG TAB PO SCH ×3 (08:28→20:39)
[2020-05-27] MEDS: guaiFENesin 600 MG TABCR PO SCH ×2 (08:28→20:40)
[2020-05-27] MEDS: LIDOCAINE 5% 1 PATCH TD SCH (08:28)
[2020-05-27] MEDS: VERAPAMIL HCL 120 MG TABCR PO SCH (08:28)
[2020-05-27] MEDS: PANTOprazole 40 MG TAB PO SCH (08:28)
[2020-05-27] MEDS: methylPREDNISolone 40 MG in SYRINGE 0 ML IV SCH (08:28)
[2020-05-27] MEDS: DOXYCYCLINE HYCLATE 100 MG CAP PO SCH ×2 (08:28→20:40)
[2020-05-27] MEDS: ATORVASTATIN 40 MG TAB PO SCH (08:28)
[2020-05-27] MEDS: THIAMINE HCL 100 MG TAB PO SCH (08:28)
[2020-05-27] MEDS: FOLIC ACID 1 MG TAB PO SCH (08:28)
[2020-05-27] MEDS: SERTRALINE HCL 100 MG TABLET PO SCH (08:28)
[2020-05-27] MEDS: MULTIVITAMIN TAB PO SCH (08:28)
[2020-05-27] MEDS: INSULIN GLARGINE SOLOSTAR 100 UNITS/ML 3 ML PEN SC SCH (08:29)
[2020-05-27] MEDS: INSULIN ASPART 100 UNITS/ML 3 ML PEN SC SCH ×4 (08:29→20:54)
[2020-05-27] MEDS: DOCUSATE SODIUM 100 MG CAP PO SCH (08:34)
[2020-05-27] MEDS ORDERED: SODIUM PHOSPHATE 3 MMOL/1 ML INFUSION IV STA (09:06)
--- NOTE | 2020-05-27 09:09 | Hospitalist Progress Note ---
Date of Service May 27, 2020 Assessment & Plan (1) Acute exacerbation of chronic obstructive pulmonary disease: Acute on chronic hypoxic, hypercarbic resp. failure in the setting of COPD exacerbation and bronchitis Complicated bronchitis secondary to above Rule out pulmonary embolism as contributory factor to worsening shortness of breath the last few days CT PE obtained, negative for PE However CT shows severe emphysema and moderate bronchial wall thickening with mucous plugging within the right lower lobe Patient was started on doxycycline on admission, nebs RTC, steroids Chest PT ordered, flutter valve Pulmonary medicine consulted- methylprednisolone IV BID, BiPAP, trilogy for home Mild acute diverticulitis CT abdomen pelvis obtained due to right flank pain Right flank pain a few weeks duration Nonobstructing bilateral nephrolithiasis Patient was started on Cipro and Flagyl for diverticulitis Anemia Patient history of chronic anemia as well Current hemoglobin ~10, down from 12.5 We will obtain FOBT and will monitor H&H No signs of bleeding H&H stable T10 acute/subacute compression fracture of superior endplate -Currently denies significant back pain -orthopedics consulted Hypertension, BP stable PAF, off Coumadin since 2019 secondary to GI bleed and patient compliant issues, patient NSR DM2, on oral medications, well controlled as of recent hemoglobin A1c of 5.1 last April 2020 Basal insulin, ISS BG goal 140-180, carb count coverage history of TIA as per records Ongoing tobacco abuse Nicotine patch as needed, cessation counseling provided DT precautions/MELY S DVT prophylaxis. SCDs Full code Admission and Anticipated Discharge Date Admission Date: May 24, 2020 Subjective Patient seen in follow-up of increase shortness of breath, mild acute diverticulitis Patient is currently sitting up in bed, eating, in no acute distress He is a supplemental oxygen, says that at home he does use 3.5 to 4 L. Says that he is on and off frequently short of breath and becomes anxious and short of breath when I talked to him about smoking cessation, and his CO PD/clinical status. Ches PT ordered for some mucous plugging. Had appointment at [facility]/pulmonary scheduled for yesterday, the office was notified that patient is hospitalized now. Pulmonary medicine consulted, recommended patient to start on BiPAP, possibly starting trilogy at home again, and IV methylprednisolone. Review of Systems Review of Systems: All systems reviewed & are unremarkable except as noted in HPI & below As per HPI, all 10 systems reviewed, all other ROS negative Constitutional: no fever and no chills Respiratory: + cough and + dyspnea Cardiovascular: no chest pain and no palpitations Gastrointestinal: no abdominal pain, no nausea and no vomiting Genitourinary: + flank pain (right) Physical Exam Physical Exam: GENERAL: WD, WN, on suppl. O2 4L via NC HEENT: NC/AT, Pale palpebral conjunctivae NECK : Supple, no tenderness CHEST : + diffuse rhonchi, + exp. wheezes (minimal wheezing now), mild work of breathing also noted HEART : rrr, no obvious murmurs ABDOMEN: Some distention, soft, nontender to palp. BACK : + R flank tenderness (much improved) EXTREMITIES : No LE swelling/tenderness, moves extremities spontaneously NEUROLOGIC : Alert and oriented x3, answering questions appropriately, no facial asymmetry, no other gross focality SKIN: Pallor, warm Results & Data Results & Data ([facility]) Vital Signs (Past 12 Hours) Vital Signs Temp Pulse Pulse Resp BP Pulse Ox 05/27/20 07:36 55 L 05/27/20 07:07 62 20 98 05/27/20 07:00 36.2 C L 60 18 150/71 H 100 05/27/20 05:21 64 05/27/20 03:00 36.5 C 62 20 141/60 H 97 05/27/20 00:30 74 16 97 05/26/20 23:17 36.5 C 68 20 151/84 H 97 Laboratory Results 05/27/20 05/27/20 05/27/20 Range/Units 07:27 07:03 07:03 WBC 8.03 (4.8-10.8) K/uL RBC 3.18 L (4.7-6.1) M/uL Hgb 10.6 L (14.0-18.0) g/dL Hct 32.4 L (42-52) % MCV 101.9 H (80-100) fL MCH 33.3 (25-34) pg MCHC 32.7 (32-36) g/dL RDW Std Deviation 47.7 H (36.4-46.3) fL RDW Coeff of Daquan 12.7 (11.5-14.5) % Plt Count 132 (130-400) K/uL MPV 11.0 H (7.4-10.4) fL Sodium 139 (136-145) mmol/L Potassium 4.2 (3.5-5.1) mmol/L Chloride 103 (98-107) mmol/L Carbon Dioxide 36 H (21-32) mmol/L Anion Gap 1.0 L (3-11) BUN 24 H (7-18) mg/dl Creatinine 0.88 (0.6-1.4) mg/dl Est Cr Clr Drug Dosing 68.8 ml/min Est GFR ( Amer) 102.3 Est GFR (Non-Af Amer) 88.3 BUN/Creatinine Ratio 26.7 H (10-20) Glucose 164 H (70-99) mg/dl POC Glucose 135 H (70-99) mg/dl Calcium 8.2 L (8.5-10.1) mg/dl Phosphorus 2.0 L (2.5-4.9) mg/dl Magnesium 2.0 (1.8-2.4) mg/dl 05/26/20 05/26/20 05/26/20 Range/Units 20:10 16:19 11:10 WBC (4.8-10.8) K/uL RBC (4.7-6.1) M/uL Hgb (14.0-18.0) g/dL Hct (42-52) % MCV (80-100) fL MCH (25-34) pg MCHC (32-36) g/dL RDW Std Deviation (36.4-46.3) fL RDW Coeff of Daquan (11.5-14.5) % Plt Count (130-400) K/uL MPV (7.4-10.4) fL Sodium (136-145) mmol/L Potassium (3.5-5.1) mmol/L Chloride (98-107) mmol/L Carbon Dioxide (21-32) mmol/L Anion Gap (3-11) BUN (7-18) mg/dl Creatinine (0.6-1.4) mg/dl Est Cr Clr Drug Dosing ml/min Est GFR ( Amer) Est GFR (Non-Af Amer) BUN/Creatinine Ratio (10-20) Glucose (70-99) mg/dl POC Glucose 193 H 139 H 131 H (70-99) mg/dl Calcium (8.5-10.1) mg/dl Phosphorus (2.5-4.9) mg/dl Magnesium (1.8-2.4) mg/dl Medications Administered Current Inpatient Medications Acetaminophen (Acetaminophen 325 Mg Tab) 650 mg PO Q4H PRN PRN Reason: Pain or Fever Stop: 06/23/20 06:56 Acetylcysteine (Acetylcysteine 10% Inhal Soln 4 Ml Dispensed By Resp.) 5 ml INH BIDR [facility] Stop: 06/23/20 20:59 Last Admin: 05/27/20 07:04 Dose: 5 ml Documented by: Atorvastatin Calcium (Atorvastatin 40 Mg Tab) 40 mg PO QAM [facility] Stop: 06/23/20 08:59 Last Admin: 05/27/20 08:28 Dose: 40 mg Documented by: Dextrose (Dextrose 50% 50 Ml Syringe) 25 - 50 ml IV UD PRN; Protocol PRN Reason: Hypoglycemia Protocol Stop: 06/23/20 06:56 Docusate Sodium (Docusate Sodium 100 Mg Cap) 100 mg PO DAILY [facility] Stop: 06/23/20 08:59 Last Admin: 05/27/20 08:34 Dose: 100 mg Documented by: Doxycycline Hyclate (Doxycycline Hyclate 100 Mg Cap) 100 mg PO BID [facility] Stop: 05/31/20 20:59 Last Admin: 05/27/20 08:28 Dose: 100 mg Documented by: Enoxaparin Sodium (Enoxaparin Inj 30 Mg/0.3 Ml Syr) 30 mg SQ QAM [facility] Stop: 06/23/20 08:59 Last Admin: 05/25/20 07:58 Dose: 30 mg Documented by: Folic Acid (Folic Acid 1 Mg Tab) 1 mg PO QAM [facility] Stop: 06/24/20 08:59 Last Admin: 05/27/20 08:28 Dose: 1 mg Documented by: Gabapentin (Gabapentin 300 Mg Cap) 300 mg PO HS [facility] Stop: 06/23/20 20:59 Last Admin: 05/26/20 21:44 Dose: 300 mg Documented by: Glucagon (Glucagon For Inj 1 Mg Vial) 1 mg SQ UD PRN; Protocol PRN Reason: Hypoglycemia Protocol Stop: 06/23/20 06:56 Glucose (Glucose 10 Tabs/Tube) 4 - 8 tabs PO UD PRN; Protocol PRN Reason: Hypoglycemia Protocol Stop: 06/23/20 06:56 Glucose (Glucose 40% Gel 15 Gm Tube) 15 - 30 gm PO UD PRN; Protocol PRN Reason: Hypoglycemia Protocol Stop: 06/23/20 06:56 Guaifenesin (Guaifenesin 600 Mg Tabcr) 600 mg PO Q12 [facility] Stop: 06/24/20 08:59 Last Admin: 05/27/20 08:28 Dose: 600 mg Documented by: Lorazepam (Ativan) 1 mg in 2 mls @ 2 mls/min IV UD PRN; Protocol PRN Reason: EtOH Withdrawl AWSS Score 6,7 Stop: 06/23/20 06:56 Lorazepam (Ativan) 2 mg in 4 mls @ 4 mls/min IV UD PRN; Protocol PRN Reason: EtOH Withdrawl AWSS Score 8,9 Stop: 06/23/20 06:56 Lorazepam (Ativan) 3 mg in 6 mls @ 4 mls/min IV ONCE PRN; Protocol PRN Reason: EtOH Withdrawl AWSS Score >=10 Stop: 06/23/20 06:56 Promethazine HCl 6.25 mg/ (Sodium Chloride) 50.25 mls @ 201 mls/hr IV Q6H PRN PRN Reason: Nausea And Vomiting Stop: 06/23/20 06:56 Ciprofloxacin (Cipro / D5w) 400 mg in 200 mls @ 100 mls/hr IV Q12H SAE; Protocol Stop: 06/03/20 11:59 Last Infusion: 05/27/20 02:15 Dose: Infused Documented by: Methylprednisolone 40 mg/ (Syringe) 1 mls @ 1.5 mls/min IV BID [facility] Stop: 06/25/20 20:59 Last Admin: 05/27/20 08:28 Dose: 1.5 mls/min Documented by: Insulin Aspart (Insulin Aspart 100 Units/Ml 3 Ml Pen) 0 units SC ACHS [facility] Stop: 06/23/20 06:56 Last Admin: 05/27/20 08:29 Dose: 2 units Documented by: Insulin Glargine (Insulin Glargine Solostar 100 Units/Ml 3 Ml Pen) 5 units SC DAILY [facility] Stop: 06/23/20 08:59 Last Admin: 05/27/20 08:29 Dose: 5 units Documented by: Ipratropium Farwell (Ipratropium [place] Neb Soln 0.02% 2.5 Ml Vial) 0.5 mg INH Q6R [facility] Stop: 06/25/20 12:59 Last Admin: 05/27/20 07:04 Dose: 0.5 mg Documented by: Ipratropium [place] (Ipratropium [place] Neb Soln 0.02% 2.5 Ml Vial) 0.5 mg INH Q2H PRN PRN Reason: wheezing shortness of breath Stop: 06/25/20 10:44 Levalbuterol HCl (Levalbuterol 1.25mg/0.5ml Neb) 1.25 mg INH Q6R [facility] Stop: 06/25/20 12:59 Last Admin: 05/27/20 07:04 Dose: 1.25 mg Documented by: Levalbuterol HCl (Levalbuterol 1.25mg/0.5ml Neb) 1.25 mg INH Q2H PRN PRN Reason: wheezing shortness of breath Stop: 06/25/20 10:44 Levothyroxine Sodium (Levothyroxine Sodium 50 Mcg Tablet) 50 mcg PO DAILYBB [facility] Stop: 06/24/20 06:29 Last Admin: 05/27/20 05:37 Dose: 50 mcg Documented by: Lidocaine (Lidocaine 5% 1 Patch) 1 patch TD QAM [facility] Stop: 06/24/20 11:14 Last Admin: 05/27/20 08:28 Dose: 1 patch Documented by: Metronidazole (Metronidazole 500 Mg Tab) 500 mg PO TID [facility] Stop: 06/03/20 13:59 Last Admin: 05/27/20 08:28 Dose: 500 mg Documented by: Miscellaneous (Carbohydrates For Hypoglycemia ) 15 - 30 gm PO UD PRN PRN Reason: Hypoglycemia Protocol Stop: 06/23/20 06:56 Miscellaneous (Remove Lidoderm Patch) 1 ea N/A DAILY@2100 [facility] Stop: 06/24/20 11:14 Last Admin: 05/26/20 22:02 Dose: 1 ea Documented by: Montelukast Sodium (Montelukast Sodium 10 Mg Tablet) 10 mg PO PM [facility] Stop: 06/23/20 20:59 Last Admin: 05/26/20 21:43 Dose: 10 mg Documented by: Multivitamins (Multivitamin Tab) 1 tab PO QAM [facility] Stop: 06/24/20 08:59 Last Admin: 05/27/20 08:28 Dose: 1 tab Documented by: Oxycodone HCl (Oxycodone Hcl Ir 5 Mg Tab (Immediate Release)) 5 mg PO Q4H PRN PRN Reason: Pain Stop: 06/07/20 06:56 Pantoprazole Sodium (Pantoprazole 40 Mg Tab) 40 mg PO DAILY [facility] Stop: 06/23/20 08:59 Last Admin: 05/27/20 08:28 Dose: 40 mg Documented by: Potassium Phosphate (Pot Phosphate Monobasic W/ Sod Tab) 1 tab PO QID [facility] Stop: 06/26/20 12:59 Prednisone (Prednisone 20 Mg Tab) 40 mg PO DAILY [facility] Stop: 05/29/20 08:59 Last Admin: 05/26/20 08:16 Dose: 40 mg Documented by: Sertraline HCl (Sertraline Hcl 100 Mg Tablet) 100 mg PO DAILY [facility] Stop: 06/23/20 08:59 Last Admin: 05/27/20 08:28 Dose: 100 mg Documented by: Sodium Phosphate (Sodium Phosphate 3 Mmol/1 Ml Infusion) 9 mmol IV NOW STA Stop: 05/27/20 09:07 Thiamine HCl (Thiamine Hcl 100 Mg Tab) 100 mg PO QAM [facility] Stop: 06/24/20 08:59 Last Admin: 05/27/20 08:28 Dose: 100 mg Documented by: Verapamil HCl (Verapamil Hcl 120 Mg Tabcr) 120 mg PO DAILY [facility] Stop: 06/23/20 08:59 Last Admin: 05/27/20 08:28 Dose: 120 mg Documented by:
[2020-05-27] MEDS ORDERED: SODIUM PHOSPHATE 9 MMOL in SODIUM CHLORIDE 0.9% 250 ML IV ONE (09:30)
[2020-05-27] MEDS: POT PHOSPHATE MONOBASIC W/ SOD TAB PO SCH ×3 (12:06→20:42)
--- NOTE | 2020-05-27 13:16 | Pulmonology Progress Note ---
Date of Service May 27, 2020 Assessment & Plan (1) Acute exacerbation of chronic obstructive pulmonary disease: In summary, this is a 70-year-old male with a history of severe COPD, significant [id number] history of tobacco abuse, hypertension, PAF not on anticoagulation, history of TIA, type 2 diabetes, chronic anemia presented to [facility] for progressive shortness of breath on exertion, found to be in [id number] hypoxemic, hypercapnic respiratory failure from COPD exacerbation. [id number] hypoxemic, hypercapnic respiratory failure. - Based on the presentation and description of his symptoms, alongside review of his CTA-Chest and significant history of COPD, do strongly suspect that this respiratory failure is being driven by an exacerbation of his COPD. - There was no evidence for acute PE on CT-A. - There are no gross signs of infection aside from his diverticulitis - He does not have overt symptoms of volume overload, and his last echocardiogram in 02/2019 did demonstrate an LVEF of 60-65% with mild LVH, no RWMAs. Consider checking BNP - Encourage use of BiPAP while here, may be a good candidate upon d/c -- after talking with CM, it seems that he may have difficulties managing this at home. May be a good candidate for SNF. Exacerbation of severe chronic obstructive pulmonary disease. - Patient has a known long-term history of COPD requiring multiple therapies at home. At this time, there does not to be a clear trigger or precipitating factor for this current flare. - Continue current regimen including scheduled levalbuterol, ipratropium, guaifenesin - Continue SoluMedrol x 5-7d then wean back to home steroid dose - Consider discontinuation of antibiotics used for any respiratory etiology - Continue aggressuve mucociliary clearance, as above, and with Flutter Valve - Would resume home Trelegy - Given increased wheezing today, would discontinue MucoMyst - can cause bronchoconstriction Tobacco abuse. We spent significant time discussing his tobacco use habits. He has an approx. 90 pack-year history. He notes to me today that he would like to quit smoking and might be interested in smoking. Discussed with case management. Thank you for this consultation. Please refer to Dr. Gann documentation for further details, recommendations. (2) Pneumonia: Laterality: bilateral Lung location: unspecified part of lung Pneumonia type: due to unspecified organism Qualified Code(s): J18.9 - Pneumonia, unspecified organism (3) COPD (chronic obstructive pulmonary disease): COPD type: unspecified COPD Qualified Code(s): J44.9 - Chronic obstructive pulmonary disease, unspecified (4) Tobacco use: (5) HTN (hypertension): (6) Diabetes mellitus, type II: (7) TIA (transient ischemic attack): (8) Paroxysmal atrial fibrillation: (9) GERD (gastroesophageal reflux disease): Admission and Anticipated Discharge Date Admission Date: May 24, 2020 Supervising Physician Co-Signing Physician Notes Dr. Choi was the resident-physician during care of patient. I separately evaluated patient for renteria portions of the history and the exam. I was present during the critical portion of medical decision making, and I discussed the case with the resident. I generally agree with the findings and plan except for any additions/exceptions noted. We will transition to 40 mg prednisone tomorrow. Smoking cessation strongly encouraged. Patient not interested in the use of BiPAP or noninvasive ventilation at this time. Discussed with case management who indicated that he had a trilogy ventilator at home previously, but was noncompliant. Pulmonary will follow from the periphery. Thank you for consult. Subjective Doing well today. Reports a little more short of breath today after waking up compared to yesterday. Still noticing that he gets "really out of breath" when he makes any movements. Tolerating BiPAP intermittently. He does note to me today after motivational interviewing that he would be interested in quitting smoking. Review of Systems Review of Systems: as per HPI Physical Exam Physical Exam: General: Tired appearing 70-year-old male who is lying back in his hospital bed, watching TV upon my arrival. He speaks freely and in no acute distress HEENT: Neck veins are flat, mild use of accessory muscles. Trachea midline. Cardiac: Normal rate, regular rhythm. S1 and S2 are present. Because breath sounds are so prominent, could not truly evaluate for murmurs, rubs, gallops. Pulmonary: Mild to moderate respiratory effort with symmetric expansion of the chest. Patient is barrel chested. There are mild use of accessory muscles. He does not have appreciable conversational dyspnea. Lungs demonstrate diffuse wheezes throughout all lung stevens, most prominent at the bases; the expiratory phase is prolonged compared to inspiration. Extremities: No peripheral edema appreciated in the lower extremities bilaterally Results & Data Results & Data ([facility]) Vital Signs (Past 12 Hours) Vital Signs Temp Pulse Pulse Resp BP Pulse Ox 05/27/20 13:09 63 18 92 05/27/20 13:08 63 18 92 05/27/20 11:00 36.5 C 63 136/72 93 05/27/20 10:49 58 L 18 95 05/27/20 07:36 55 L 05/27/20 07:07 62 20 98 05/27/20 07:00 36.2 C L 60 18 150/71 H 100 05/27/20 05:21 64 05/27/20 03:00 36.5 C 62 20 141/60 H 97 Resident Activity Tracking Resident Involvement: Resident Care Provided Care Provided: Adult Hospital Medicine
[2020-05-27] MEDS: POLYETHYLENE (MIRALAX) 17 GM PACK PO SCH (16:36)
--- NOTE | 2020-05-27 17:12 | Billing Data ---
Date of Service May 27, 2020 Coding Level of Care Code 06189 Subseq Obs Care Lvl 2
[2020-05-27] MEDS: NICOTINE 7 MG/24 HR TDSY TD SCH (18:33)
[2020-05-27] MEDS: GABAPENTIN 300 MG CAP PO SCH (20:39)
[2020-05-27] MEDS: MONTELUKAST SODIUM 10 MG TABLET PO SCH (20:39)
[2020-05-28] MEDS: LEVALBUTEROL 1.25MG/0.5ML NEB INH SCH ×4 (00:01→19:19)
[2020-05-28] MEDS: IPRATROPIUM BROMIDE NEB SOLN 0.02% 2.5 ML VIAL INH SCH ×4 (00:01→19:19)
[2020-05-28] MEDS: LEVOTHYROXINE SODIUM 50 MCG TABLET PO SCH (06:25)
[2020-05-28] MEDS: ACETYLCYSTEINE 10% INHAL SOLN 4 ML **DISPENSED BY RESP. INH SCH ×2 (07:28→19:19)
[2020-05-28 08:05] LABS: BUN Creatinine Ratio 24.9 (10-20); Calcium 8.1 mg/dl (8.5-10.1); Creatinine Clr Calc Pharmacy 62.6 ml/min; Est GFR (African American) 93.8; Est GFR (Non-African American) 80.9; Magnesium 1.9 mg/dl (1.8-2.4); Potassium 3.8 mmol/L (3.5-5.1)
[2020-05-28] MEDS: ATORVASTATIN 40 MG TAB PO SCH (09:04)
[2020-05-28] MEDS: metroNIDAZOLE 500 MG TAB PO SCH ×3 (09:04→20:37)
[2020-05-28] MEDS: guaiFENesin 600 MG TABCR PO SCH ×2 (09:04→20:36)
[2020-05-28] MEDS: PANTOprazole 40 MG TAB PO SCH (09:04)
[2020-05-28] MEDS: DOXYCYCLINE HYCLATE 100 MG CAP PO SCH ×2 (09:04→20:36)
[2020-05-28] MEDS: THIAMINE HCL 100 MG TAB PO SCH (09:04)
[2020-05-28] MEDS: VERAPAMIL HCL 120 MG TABCR PO SCH (09:04)
[2020-05-28] MEDS: predniSONE 20 MG TAB PO SCH (09:04)
[2020-05-28] MEDS: SERTRALINE HCL 100 MG TABLET PO SCH (09:04)
[2020-05-28] MEDS: MULTIVITAMIN TAB PO SCH (09:04)
[2020-05-28] MEDS: POT PHOSPHATE MONOBASIC W/ SOD TAB PO SCH ×4 (09:04→20:37)
[2020-05-28] MEDS: FOLIC ACID 1 MG TAB PO SCH (09:04)
[2020-05-28] MEDS: LIDOCAINE 5% 1 PATCH TD SCH (09:05)
[2020-05-28] MEDS: DOCUSATE SODIUM 100 MG CAP PO SCH (09:06)
[2020-05-28] MEDS: POLYETHYLENE (MIRALAX) 17 GM PACK PO SCH (09:06)
[2020-05-28] MEDS: INSULIN ASPART 100 UNITS/ML 3 ML PEN SC SCH ×4 (09:09→20:40)
[2020-05-28] MEDS: INSULIN GLARGINE SOLOSTAR 100 UNITS/ML 3 ML PEN SC SCH (09:09)
[2020-05-28] MEDS: CIPROFLOXACIN / D5W 400 MG/200 ML BAG IV SCH (11:56)
[2020-05-28] MEDS: NICOTINE 7 MG/24 HR TDSY TD SCH (17:03)
[2020-05-28] MEDS: GABAPENTIN 300 MG CAP PO SCH (20:35)
[2020-05-28] MEDS: MONTELUKAST SODIUM 10 MG TABLET PO SCH (20:36)
--- NOTE | 2020-05-28 23:03 | Hospitalist Progress Note ---
Date of Service May 28, 2020 Assessment & Plan (1) Acute exacerbation of chronic obstructive pulmonary disease: Acute on chronic hypoxic, hypercarbic resp. failure in the setting of COPD exacerbation and bronchitis Complicated bronchitis secondary to above At baseline uses 3.5-4L of supl. O2 via NC Rule out pulmonary embolism as contributory factor to worsening shortness of breath the last few days CT PE obtained, negative for PE However CT shows severe emphysema and moderate bronchial wall thickening with mucous plugging within the right lower lobe Patient was started on doxycycline on admission, nebs RTC, steroids Chest PT ordered, flutter valve Pulmonary medicine consulted- methylprednisolone IV BID, BiPAP, trilogy for home Used trilogy at home in the past Pt feels only somewhat improved since admission, cont. to have episodes of shortness of breath Pt cont. 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, pulmonary office was notified Mild acute diverticulitis CT abdomen pelvis obtained due to right flank pain Right flank pain a few weeks duration Nonobstructing bilateral nephrolithiasis Patient was started on Cipro and Flagyl for diverticulitis Anemia Patient history of chronic anemia as well Current hemoglobin ~10, down from 12.5 We will obtain FOBT and will monitor H&H No signs of bleeding H&H stable T10 acute/subacute compression fracture of superior endplate -Currently denies significant back pain -orthopedics consulted Hypertension, BP stable PAF, off Coumadin since 2019 secondary to GI bleed and patient compliant issues, patient NSR DM2, on oral medications, well controlled as of recent hemoglobin A1c of 5.1 last April 2020 Basal insulin, ISS BG goal 140-180, carb count coverage history of TIA as per records Ongoing tobacco abuse Nicotine patch as needed, cessation counseling provided DT precautions/MELY S DVT prophylaxis. SCDs Full code Admission and Anticipated Discharge Date Admission Date: May 24, 2020 Subjective Patient seen in follow-up of increase shortness of breath, mild acute diverticulitis Patient is currently sitting up in bed, eating, in no acute distress He is a supplemental oxygen, says that at home he does use 3.5 to 4 L. Says that he is on and off frequently short of breath, feels little improved since his hospitalization. Pulmonary medicine consulted, recommended patient to start on BiPAP, possibly starting trilogy at home again, and IV methylprednisolone. Review of Systems Review of Systems: All systems reviewed & are unremarkable except as noted in HPI & below As per HPI, all 10 systems reviewed, all other ROS negative Constitutional: no fever and no chills Respiratory: + cough and + dyspnea Cardiovascular: no chest pain and no palpitations Gastrointestinal: no abdominal pain and no vomiting Genitourinary: + flank pain (right (improved)) Physical Exam Physical Exam: GENERAL: WD, WN, on suppl. O2 4L via NC HEENT: NC/AT, Pale palpebral conjunctivae NECK : Supple, no tenderness CHEST : diminished breath sounds,+ mild diffuse rhonchi, + exp. wheezes (minimal wheezing now) HEART : rrr, no obvious murmurs ABDOMEN: soft, nontender to palp., + bowel sounds BACK : + R flank tenderness (much improved) EXTREMITIES : No LE swelling/tenderness, moves extremities spontaneously NEUROLOGIC : Alert and oriented x3, answering questions appropriately, no facial asymmetry, no other gross focality SKIN: Pale, warm, dry Results & Data Results & Data ([facility]) Vital Signs (Past 12 Hours) Vital Signs Temp Pulse Pulse Resp BP Pulse Ox 05/28/20 19:23 77 20 99 05/28/20 19:14 36.4 C L 73 18 106/68 94 05/28/20 16:55 36.8 C 71 19 114/69 97 05/28/20 15:00 74 05/28/20 13:21 77 77 22 95 05/28/20 12:20 36.6 C 65 18 109/54 L 99 Laboratory Results 05/28/20 05/28/20 05/28/20 Range/Units 19:47 16:32 11:37 Sodium (136-145) mmol/L Potassium (3.5-5.1) mmol/L Chloride (98-107) mmol/L Carbon Dioxide (21-32) mmol/L Anion Gap (3-11) BUN (7-18) mg/dl Creatinine (0.6-1.4) mg/dl Est Cr Clr Drug Dosing ml/min Est GFR ( Amer) Est GFR (Non-Af Amer) BUN/Creatinine Ratio (10-20) Glucose (70-99) mg/dl POC Glucose 238 H 134 H 159 H (70-99) mg/dl Calcium (8.5-10.1) mg/dl Magnesium (1.8-2.4) mg/dl 05/28/20 05/28/20 Range/Units 07:33 07:18 Sodium 142 (136-145) mmol/L Potassium 3.8 (3.5-5.1) mmol/L Chloride 101 (98-107) mmol/L Carbon Dioxide 38 H (21-32) mmol/L Anion Gap 3.0 (3-11) BUN 24 H (7-18) mg/dl Creatinine 0.96 (0.6-1.4) mg/dl Est Cr Clr Drug Dosing 62.6 ml/min Est GFR ( Amer) 93.8 Est GFR (Non-Af Amer) 80.9 BUN/Creatinine Ratio 24.9 H (10-20) Glucose 82 (70-99) mg/dl POC Glucose 97 (70-99) mg/dl Calcium 8.1 L (8.5-10.1) mg/dl Magnesium 1.9 (1.8-2.4) mg/dl Medications Administered Current Inpatient Medications Acetaminophen (Acetaminophen 325 Mg Tab) 650 mg PO Q4H PRN PRN Reason: Pain or Fever Stop: 06/23/20 06:56 Acetylcysteine (Acetylcysteine 10% Inhal Soln 4 Ml Dispensed By Resp.) 5 ml INH BIDR [facility] Stop: 06/23/20 20:59 Last Admin: 05/28/20 19:19 Dose: 5 ml Documented by: Atorvastatin Calcium (Atorvastatin 40 Mg Tab) 40 mg PO QAM [facility] Stop: 06/23/20 08:59 Last Admin: 05/28/20 09:04 Dose: 40 mg Documented by: Dextrose (Dextrose 50% 50 Ml Syringe) 25 - 50 ml IV UD PRN; Protocol PRN Reason: Hypoglycemia Protocol Stop: 06/23/20 06:56 Docusate Sodium (Docusate Sodium 100 Mg Cap) 100 mg PO DAILY [facility] Stop: 06/23/20 08:59 Last Admin: 05/28/20 09:06 Dose: Not Given Documented by: Doxycycline Hyclate (Doxycycline Hyclate 100 Mg Cap) 100 mg PO BID [facility] Stop: 05/31/20 20:59 Last Admin: 05/28/20 20:36 Dose: 100 mg Documented by: Enoxaparin Sodium (Enoxaparin Inj 30 Mg/0.3 Ml Syr) 30 mg SQ QAM [facility] Stop: 06/23/20 08:59 Last Admin: 05/25/20 07:58 Dose: 30 mg Documented by: Folic Acid (Folic Acid 1 Mg Tab) 1 mg PO QAM [facility] Stop: 06/24/20 08:59 Last Admin: 05/28/20 09:04 Dose: 1 mg Documented by: Gabapentin (Gabapentin 300 Mg Cap) 300 mg PO HS [facility] Stop: 06/23/20 20:59 Last Admin: 05/28/20 20:35 Dose: 300 mg Documented by: Glucagon (Glucagon For Inj 1 Mg Vial) 1 mg SQ UD PRN; Protocol PRN Reason: Hypoglycemia Protocol Stop: 06/23/20 06:56 Glucose (Glucose 10 Tabs/Tube) 4 - 8 tabs PO UD PRN; Protocol PRN Reason: Hypoglycemia Protocol Stop: 06/23/20 06:56 Glucose (Glucose 40% Gel 15 Gm Tube) 15 - 30 gm PO UD PRN; Protocol PRN Reason: Hypoglycemia Protocol Stop: 06/23/20 06:56 Guaifenesin (Guaifenesin 600 Mg Tabcr) 600 mg PO Q12 [facility] Stop: 06/24/20 08:59 Last Admin: 05/28/20 20:36 Dose: 600 mg Documented by: Lorazepam (Ativan) 1 mg in 2 mls @ 2 mls/min IV UD PRN; Protocol PRN Reason: EtOH Withdrawl AWSS Score 6,7 Stop: 06/23/20 06:56 Lorazepam (Ativan) 2 mg in 4 mls @ 4 mls/min IV UD PRN; Protocol PRN Reason: EtOH Withdrawl AWSS Score 8,9 Stop: 06/23/20 06:56 Lorazepam (Ativan) 3 mg in 6 mls @ 4 mls/min IV ONCE PRN; Protocol PRN Reason: EtOH Withdrawl AWSS Score >=10 Stop: 06/23/20 06:56 Promethazine HCl 6.25 mg/ (Sodium Chloride) 50.25 mls @ 201 mls/hr IV Q6H PRN PRN Reason: Nausea And Vomiting Stop: 06/23/20 06:56 Ciprofloxacin (Cipro / D5w) 400 mg in 200 mls @ 100 mls/hr IV Q12H [facility]; Protocol Stop: 06/03/20 11:59 Last Infusion: 04/17/21 14:00 Dose: Infused Documented by: Insulin Aspart (Insulin Aspart 100 Units/Ml 3 Ml Pen) 0 units SC ACHS [facility] Stop: 06/23/20 06:56 Last Admin: 05/28/20 20:40 Dose: 3 units Documented by: Insulin Glargine (Insulin Glargine Solostar 100 Units/Ml 3 Ml Pen) 5 units SC DAILY [facility] Stop: 06/23/20 08:59 Last Admin: 05/28/20 09:09 Dose: 5 units Documented by: Ipratropium [place] (Ipratropium [place] Neb Soln 0.02% 2.5 Ml Vial) 0.5 mg INH Q6R [facility] Stop: 06/25/20 12:59 Last Admin: 05/28/20 19:19 Dose: 0.5 mg Documented by: Ipratropium [place] (Ipratropium [place] Neb Soln 0.02% 2.5 Ml Vial) 0.5 mg INH Q2H PRN PRN Reason: wheezing shortness of breath Stop: 06/25/20 10:44 Last Admin: 05/27/20 17:20 Dose: 0.5 mg Documented by: Levalbuterol HCl (Levalbuterol 1.25mg/0.5ml Neb) 1.25 mg INH Q6R [facility] Stop: 06/25/20 12:59 Last Admin: 05/28/20 19:19 Dose: 1.25 mg Documented by: Levalbuterol HCl (Levalbuterol 1.25mg/0.5ml Neb) 1.25 mg INH Q2H PRN PRN Reason: wheezing shortness of breath Stop: 06/25/20 10:44 Last Admin: 05/27/20 17:20 Dose: 1.25 mg Documented by: Levothyroxine Sodium (Levothyroxine Sodium 50 Mcg Tablet) 50 mcg PO DAILYBB [facility] Stop: 06/24/20 06:29 Last Admin: 05/28/20 06:25 Dose: 50 mcg Documented by: Lidocaine (Lidocaine 5% 1 Patch) 1 patch TD QAM [facility] Stop: 06/24/20 11:14 Last Admin: 05/28/20 09:05 Dose: 1 patch Documented by: Metronidazole (Metronidazole 500 Mg Tab) 500 mg PO TID [facility] Stop: 06/03/20 13:59 Last Admin: 05/28/20 20:37 Dose: 500 mg Documented by: Miscellaneous (Carbohydrates For Hypoglycemia ) 15 - 30 gm PO UD PRN PRN Reason: Hypoglycemia Protocol Stop: 06/23/20 06:56 Miscellaneous (Remove Lidoderm Patch) 1 ea N/A DAILY@2100 [facility] Stop: 06/24/20 11:14 Last Admin: 05/28/20 20:39 Dose: 1 ea Documented by: Miscellaneous (Remove Nicoderm Patch) 1 ea N/A DAILY@1759 [facility] Stop: 06/27/20 17:58 Last Admin: 05/28/20 17:03 Dose: 1 ea Documented by: Montelukast Sodium (Montelukast Sodium 10 Mg Tablet) 10 mg PO PM [facility] Stop: 06/23/20 20:59 Last Admin: 05/28/20 20:36 Dose: 10 mg Documented by: Multivitamins (Multivitamin Tab) 1 tab PO QAM [facility] Stop: 06/24/20 08:59 Last Admin: 05/28/20 09:04 Dose: 1 tab Documented by: Nicotine (Nicotine 7 Mg/24 Hr Tdsy) 7 mg TD DAILY@1800 [facility] Stop: 06/26/20 17:59 Last Admin: 05/28/20 17:03 Dose: Not Given Documented by: Oxycodone HCl (Oxycodone Hcl Ir 5 Mg Tab (Immediate Release)) 5 mg PO Q4H PRN PRN Reason: Pain Stop: 06/07/20 06:56 Pantoprazole Sodium (Pantoprazole 40 Mg Tab) 40 mg PO DAILY [facility] Stop: 06/23/20 08:59 Last Admin: 05/28/20 09:04 Dose: 40 mg Documented by: Polyethylene Glycol (Polyethylene (Miralax) 17 Gm Pack) 17 gm PO DAILY [facility] Stop: 06/26/20 16:29 Last Admin: 05/28/20 09:06 Dose: Not Given Documented by: Potassium Phosphate (Pot Phosphate Monobasic W/ Sod Tab) 1 tab PO QID [facility] Stop: 06/26/20 12:59 Last Admin: 05/28/20 20:37 Dose: 1 tab Documented by: Prednisone (Prednisone 20 Mg Tab) 40 mg PO DAILY [facility] Stop: 05/29/20 08:59 Last Admin: 05/28/20 09:04 Dose: 40 mg Documented by: Sertraline HCl (Sertraline Hcl 100 Mg Tablet) 100 mg PO DAILY [facility] Stop: 06/23/20 08:59 Last Admin: 05/28/20 09:04 Dose: 100 mg Documented by: Thiamine HCl (Thiamine Hcl 100 Mg Tab) 100 mg PO QAM [facility] Stop: 06/24/20 08:59 Last Admin: 05/28/20 09:04 Dose: 100 mg Documented by: Verapamil HCl (Verapamil Hcl 120 Mg Tabcr) 120 mg PO DAILY [facility] Stop: 06/23/20 08:59 Last Admin: 05/28/20 09:04 Dose: 120 mg Documented by:
[2020-05-29] MEDS: CIPROFLOXACIN / D5W 400 MG/200 ML BAG IV SCH ×3 (00:20→23:40)
[2020-05-29] MEDS: LEVALBUTEROL 1.25MG/0.5ML NEB INH SCH ×4 (00:53→19:25)
[2020-05-29] MEDS: IPRATROPIUM BROMIDE NEB SOLN 0.02% 2.5 ML VIAL INH SCH ×4 (00:53→19:25)
[2020-05-29] MEDS: LEVOTHYROXINE SODIUM 50 MCG TABLET PO SCH (06:21)
[2020-05-29] MEDS: LIDOCAINE 5% 1 PATCH TD SCH (07:43)
[2020-05-29] MEDS: POLYETHYLENE (MIRALAX) 17 GM PACK PO SCH (07:43)
[2020-05-29] MEDS: NICOTINE 7 MG/24 HR TDSY TD SCH (07:44)
[2020-05-29] MEDS: metroNIDAZOLE 500 MG TAB PO SCH ×3 (07:44→20:12)
[2020-05-29] MEDS: guaiFENesin 600 MG TABCR PO SCH ×2 (07:44→20:13)
[2020-05-29] MEDS: ATORVASTATIN 40 MG TAB PO SCH (07:45)
[2020-05-29] MEDS: VERAPAMIL HCL 120 MG TABCR PO SCH (07:45)
[2020-05-29] MEDS: POT PHOSPHATE MONOBASIC W/ SOD TAB PO SCH ×5 (07:45→20:11)
[2020-05-29] MEDS: SERTRALINE HCL 100 MG TABLET PO SCH (07:45)
[2020-05-29] MEDS: THIAMINE HCL 100 MG TAB PO SCH (07:46)
[2020-05-29] MEDS: PANTOprazole 40 MG TAB PO SCH (07:46)
[2020-05-29] MEDS: MULTIVITAMIN TAB PO SCH (07:46)
[2020-05-29] MEDS: DOCUSATE SODIUM 100 MG CAP PO SCH (07:46)
[2020-05-29] MEDS: FOLIC ACID 1 MG TAB PO SCH (07:46)
[2020-05-29 08:09] LABS: Hematocrit (blood only) 36.5 % (42-52); Hemoglobin 11.8 g/dL (14.0-18.0); Mean Corpuscular Hemoglobin 33.1 pg (25-34); Mean Corpuscular Hgb Conc 32.3 g/dL (32-36); Mean Corpuscular Volume 102.5 fL (80-100); Mean Platelet Volume 10.9 fL (7.4-10.4); Platelet Count 141 K/uL (130-400); RDW Coefficient of Variation 12.8 % (11.5-14.5); RDW Standard Deviation 48.4 fL (36.4-46.3); Red Blood Count 3.56 M/uL (4.7-6.1); White Blood Count 10.85 K/uL (4.8-10.8)
[2020-05-29] MEDS: INSULIN GLARGINE SOLOSTAR 100 UNITS/ML 3 ML PEN SC SCH (08:38)
[2020-05-29] MEDS: INSULIN ASPART 100 UNITS/ML 3 ML PEN SC SCH ×5 (08:38→20:14)
[2020-05-29 08:41] LABS: BUN Creatinine Ratio 33.2 (10-20); Calcium 8.2 mg/dl (8.5-10.1); Creatinine Clr Calc Pharmacy 74.8 ml/min; Est GFR (African American) 106.4; Est GFR (Non-African American) 91.8; Magnesium 1.9 mg/dl (1.8-2.4); Potassium 4.1 mmol/L (3.5-5.1)
--- NOTE | 2020-05-29 09:30 | Hospitalist Progress Note ---
Date of Service May 29, 2020 Assessment & Plan (1) Acute exacerbation of chronic obstructive pulmonary disease: Acute on chronic hypoxic, hypercarbic resp. failure in the setting of COPD exacerbation and bronchitis Complicated bronchitis secondary to above At baseline uses 3.5-4L of supl. O2 via NC Rule out pulmonary embolism as contributory factor to worsening shortness of breath the last few days CT PE obtained, negative for PE However CT shows severe emphysema and moderate bronchial wall thickening with mucous plugging within the right lower lobe Patient was started on doxycycline on admission, nebs RTC, steroids Chest PT ordered, flutter valve Pulmonary medicine consulted- methylprednisolone IV BID, BiPAP, trilogy for home Used trilogy at home in the past Pt feels only somewhat improved since admission, cont. to have episodes of shortness of breath Pt cont. 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, pulmonary office was notified Mild acute diverticulitis CT abdomen pelvis obtained due to right flank pain Right flank pain a few weeks duration Nonobstructing bilateral nephrolithiasis Patient was started on Cipro and Flagyl for diverticulitis Anemia Patient history of chronic anemia as well Current hemoglobin ~10, down from 12.5 We will obtain FOBT and will monitor H&H No signs of bleeding H&H stable T10 acute/subacute compression fracture of superior endplate -Currently denies significant back pain -orthopedics consulted Hypertension, BP stable PAF, off Coumadin since 2019 secondary to GI bleed and patient compliant issues, patient NSR DM2, on oral medications, well controlled as of recent hemoglobin A1c of 5.1 last April 2020 Basal insulin, ISS BG goal 140-180, carb count coverage history of TIA as per records Ongoing tobacco abuse Nicotine patch as needed, cessation counseling provided DT precautions/MELY S DVT prophylaxis. SCDs Full code Admission and Anticipated Discharge Date Admission Date: May 24, 2020 Subjective Patient seen in follow-up of increase shortness of breath, mild acute diverticulitis Patient is currently sitting up in bed,in no acute distress He is a supplemental oxygen, says that at home he does use 3.5 to 4 L. Says that he is on and off frequently short of breath, feels only little improved since his hospitalization. Pulmonary medicine consulted, recommended patient to start on BiPAP, possibly starting trilogy at home again, and IV methylprednisolone. will call PT/OT for eval, will discuss further w/ CM Review of Systems Review of Systems: All systems reviewed & are unremarkable except as noted in HPI & below Constitutional: + fatigue and + weakness (generalized); no fever and no chills Respiratory: + cough and + dyspnea Cardiovascular: no chest pain and no palpitations Gastrointestinal: no abdominal pain, no nausea and no vomiting Physical Exam Physical Exam: GENERAL: WD, WN, on suppl. O2 4L via NC HEENT: NC/AT, Pale palpebral conjunctivae NECK : Supple, no tenderness CHEST : diminished breath sounds,+ mild diffuse rhonchi, + exp. wheezes HEART : rrr, no obvious murmurs ABDOMEN: soft, nontender to palp., + bowel sounds BACK : + R flank tenderness (much improved) EXTREMITIES : No LE swelling/tenderness, moves extremities spontaneously NEUROLOGIC : Alert and oriented x3, answering questions appropriately, no facial asymmetry, no other gross focality SKIN: Pale, warm, dry Results & Data Results & Data ([facility]) Vital Signs (Past 12 Hours) Vital Signs Temp Pulse Pulse Resp BP Pulse Ox 05/29/20 08:07 78 104/64 05/29/20 07:41 36.6 C 75 22 91/52 L 90 05/29/20 07:31 81 20 95 05/29/20 03:53 36.4 C L 69 18 112/62 98 05/29/20 02:26 56 L 05/29/20 00:53 70 18 96 05/28/20 23:05 36.9 C 69 18 153/82 H 100 05/28/20 22:00 62 20 99 Laboratory Results 05/29/20 05/29/20 05/29/20 Range/Units 08:04 08:04 07:46 WBC 10.85 H (4.8-10.8) K/uL RBC 3.56 L (4.7-6.1) M/uL Hgb 11.8 L (14.0-18.0) g/dL Hct 36.5 L (42-52) % MCV 102.5 H (80-100) fL MCH 33.1 (25-34) pg MCHC 32.3 (32-36) g/dL RDW Std Deviation 48.4 H (36.4-46.3) fL RDW Coeff of [place] 12.8 (11.5-14.5) % Plt Count 141 (130-400) K/uL MPV 10.9 H (7.4-10.4) fL Sodium 142 (136-145) mmol/L Potassium 4.1 (3.5-5.1) mmol/L Chloride 105 (98-107) mmol/L Carbon Dioxide 37 H (21-32) mmol/L Anion Gap 0 L (3-11) BUN 27 H (7-18) mg/dl Creatinine 0.80 (0.6-1.4) mg/dl Est Cr Clr Drug Dosing 74.8 ml/min Est GFR ( Amer) 106.4 Est GFR (Non-Af Amer) 91.8 BUN/Creatinine Ratio 33.2 H (10-20) Glucose 67 L (70-99) mg/dl POC Glucose 77 (70-99) mg/dl Calcium 8.2 L (8.5-10.1) mg/dl Phosphorus 4.0 (2.5-4.9) mg/dl Magnesium 1.9 (1.8-2.4) mg/dl 05/28/20 05/28/20 05/28/20 Range/Units 19:47 16:32 11:37 WBC (4.8-10.8) K/uL RBC (4.7-6.1) M/uL Hgb (14.0-18.0) g/dL Hct (42-52) % MCV (80-100) fL MCH (25-34) pg MCHC (32-36) g/dL RDW Std Deviation (36.4-46.3) fL RDW Coeff of [place] (11.5-14.5) % Plt Count (130-400) K/uL MPV (7.4-10.4) fL Sodium (136-145) mmol/L Potassium (3.5-5.1) mmol/L Chloride (98-107) mmol/L Carbon Dioxide (21-32) mmol/L Anion Gap (3-11) BUN (7-18) mg/dl Creatinine (0.6-1.4) mg/dl Est Cr Clr Drug Dosing ml/min Est GFR ( Amer) Est GFR (Non-Af Amer) BUN/Creatinine Ratio (10-20) Glucose (70-99) mg/dl POC Glucose 238 H 134 H 159 H (70-99) mg/dl Calcium (8.5-10.1) mg/dl Phosphorus (2.5-4.9) mg/dl Magnesium (1.8-2.4) mg/dl Medications Administered Current Inpatient Medications Acetaminophen (Acetaminophen 325 Mg Tab) 650 mg PO Q4H PRN PRN Reason: Pain or Fever Stop: 06/23/20 06:56 Atorvastatin Calcium (Atorvastatin 40 Mg Tab) 40 mg PO QAM [facility] Stop: 06/23/20 08:59 Last Admin: 05/29/20 07:45 Dose: 40 mg Documented by: Dextrose (Dextrose 50% 50 Ml Syringe) 25 - 50 ml IV UD PRN; Protocol PRN Reason: Hypoglycemia Protocol Stop: 06/23/20 06:56 Docusate Sodium (Docusate Sodium 100 Mg Cap) 100 mg PO DAILY [facility] Stop: 06/23/20 08:59 Last Admin: 05/29/20 07:46 Dose: Not Given Documented by: Enoxaparin Sodium (Enoxaparin Inj 30 Mg/0.3 Ml Syr) 30 mg SQ QAM [facility] Stop: 06/23/20 08:59 Last Admin: 05/25/20 07:58 Dose: 30 mg Documented by: Folic Acid (Folic Acid 1 Mg Tab) 1 mg PO QAM [facility] Stop: 06/24/20 08:59 Last Admin: 05/29/20 07:46 Dose: 1 mg Documented by: Gabapentin (Gabapentin 300 Mg Cap) 300 mg PO HS [facility] Stop: 06/23/20 20:59 Last Admin: 05/28/20 20:35 Dose: 300 mg Documented by: Glucagon (Glucagon For Inj 1 Mg Vial) 1 mg SQ UD PRN; Protocol PRN Reason: Hypoglycemia Protocol Stop: 06/23/20 06:56 Glucose (Glucose 10 Tabs/Tube) 4 - 8 tabs PO UD PRN; Protocol PRN Reason: Hypoglycemia Protocol Stop: 06/23/20 06:56 Glucose (Glucose 40% Gel 15 Gm Tube) 15 - 30 gm PO UD PRN; Protocol PRN Reason: Hypoglycemia Protocol Stop: 06/23/20 06:56 Guaifenesin (Guaifenesin 600 Mg Tabcr) 600 mg PO Q12 [facility] Stop: 06/24/20 08:59 Last Admin: 05/29/20 07:44 Dose: 600 mg Documented by: Lorazepam (Ativan) 1 mg in 2 mls @ 2 mls/min IV UD PRN; Protocol PRN Reason: EtOH Withdrawl AWSS Score 6,7 Stop: 06/23/20 06:56 Lorazepam (Ativan) 2 mg in 4 mls @ 4 mls/min IV UD PRN; Protocol PRN Reason: EtOH Withdrawl AWSS Score 8,9 Stop: 06/23/20 06:56 Lorazepam (Ativan) 3 mg in 6 mls @ 4 mls/min IV ONCE PRN; Protocol PRN Reason: EtOH Withdrawl AWSS Score >=10 Stop: 06/23/20 06:56 Promethazine HCl 6.25 mg/ (Sodium Chloride) 50.25 mls @ 201 mls/hr IV Q6H PRN PRN Reason: Nausea And Vomiting Stop: 06/23/20 06:56 Ciprofloxacin (Cipro / D5w) 400 mg in 200 mls @ 100 mls/hr IV Q12H [facility]; Protocol Stop: 06/03/20 11:59 Last Infusion: 05/29/20 02:25 Dose: Infused Documented by: Insulin Aspart (Insulin Aspart 100 Units/Ml 3 Ml Pen) 0 units SC ACHS [facility] Stop: 06/23/20 06:56 Last Admin: 05/29/20 08:38 Dose: 1 units Documented by: Insulin Glargine (Insulin Glargine Solostar 100 Units/Ml 3 Ml Pen) 5 units SC DAILY [facility] Stop: 06/23/20 08:59 Last Admin: 05/29/20 08:38 Dose: 5 units Documented by: Ipratropium [place] (Ipratropium [place] Neb Soln 0.02% 2.5 Ml Vial) 0.5 mg INH Q6R [facility] Stop: 06/25/20 12:59 Last Admin: 05/29/20 07:30 Dose: 0.5 mg Documented by: Ipratropium [place] (Ipratropium [place] Neb Soln 0.02% 2.5 Ml Vial) 0.5 mg INH Q2H PRN PRN Reason: wheezing shortness of breath Stop: 06/25/20 10:44 Last Admin: 05/27/20 17:20 Dose: 0.5 mg Documented by: Levalbuterol HCl (Levalbuterol 1.25mg/0.5ml Neb) 1.25 mg INH Q6R [facility] Stop: 06/25/20 12:59 Last Admin: 05/29/20 07:30 Dose: 1.25 mg Documented by: Levalbuterol HCl (Levalbuterol 1.25mg/0.5ml Neb) 1.25 mg INH Q2H PRN PRN Reason: wheezing shortness of breath Stop: 06/25/20 10:44 Last Admin: 05/27/20 17:20 Dose: 1.25 mg Documented by: Levothyroxine Sodium (Levothyroxine Sodium 50 Mcg Tablet) 50 mcg PO DAILYBB [facility] Stop: 06/24/20 06:29 Last Admin: 05/29/20 06:21 Dose: 50 mcg Documented by: Lidocaine (Lidocaine 5% 1 Patch) 1 patch TD QAM [facility] Stop: 06/24/20 11:14 Last Admin: 05/29/20 07:43 Dose: 1 patch Documented by: Metronidazole (Metronidazole 500 Mg Tab) 500 mg PO TID [facility] Stop: 06/03/20 13:59 Last Admin: 05/29/20 07:44 Dose: 500 mg Documented by: Miscellaneous (Carbohydrates For Hypoglycemia ) 15 - 30 gm PO UD PRN PRN Reason: Hypoglycemia Protocol Stop: 06/23/20 06:56 Miscellaneous (Remove Lidoderm Patch) 1 ea N/A DAILY@2100 [facility] Stop: 06/24/20 11:14 Last Admin: 05/28/20 20:39 Dose: 1 ea Documented by: Miscellaneous (Remove Nicoderm Patch) 1 ea N/A DAILY@1759 [facility] Stop: 06/27/20 17:58 Last Admin: 05/28/20 17:03 Dose: 1 ea Documented by: Montelukast Sodium (Montelukast Sodium 10 Mg Tablet) 10 mg PO PM [facility] Stop: 06/23/20 20:59 Last Admin: 05/28/20 20:36 Dose: 10 mg Documented by: Multivitamins (Multivitamin Tab) 1 tab PO QAM [facility] Stop: 06/24/20 08:59 Last Admin: 05/29/20 07:46 Dose: 1 tab Documented by: Nicotine (Nicotine 7 Mg/24 Hr Tdsy) 7 mg TD DAILY@1800 [facility] Stop: 06/26/20 17:59 Last Admin: 05/29/20 07:44 Dose: 7 mg Documented by: Oxycodone HCl (Oxycodone Hcl Ir 5 Mg Tab (Immediate Release)) 5 mg PO Q4H PRN PRN Reason: Pain Stop: 06/07/20 06:56 Pantoprazole Sodium (Pantoprazole 40 Mg Tab) 40 mg PO DAILY [facility] Stop: 06/23/20 08:59 Last Admin: 05/29/20 07:46 Dose: 40 mg Documented by: Polyethylene Glycol (Polyethylene (Miralax) 17 Gm Pack) 17 gm PO DAILY [facility] Stop: 06/26/20 16:29 Last Admin: 05/29/20 07:43 Dose: Not Given Documented by: Potassium Phosphate (Pot Phosphate Monobasic W/ Sod Tab) 1 tab PO QID [facility] Stop: 06/26/20 12:59 Last Admin: 05/29/20 07:45 Dose: 1 tab Documented by: Sertraline HCl (Sertraline Hcl 100 Mg Tablet) 100 mg PO DAILY [facility] Stop: 06/23/20 08:59 Last Admin: 05/29/20 07:45 Dose: 100 mg Documented by: Thiamine HCl (Thiamine Hcl 100 Mg Tab) 100 mg PO QAM [facility] Stop: 06/24/20 08:59 Last Admin: 05/29/20 07:46 Dose: 100 mg Documented by: Verapamil HCl (Verapamil Hcl 120 Mg Tabcr) 120 mg PO DAILY [facility] Stop: 06/23/20 08:59 Last Admin: 05/29/20 07:45 Dose: 120 mg Documented by:
[2020-05-29] MEDS ORDERED: methylPREDNISolone 40 MG in SYRINGE 0 ML IV ONE (16:45)
[2020-05-29] MEDS: MONTELUKAST SODIUM 10 MG TABLET PO SCH (20:11)
[2020-05-29] MEDS: GABAPENTIN 300 MG CAP PO SCH (20:13)
[2020-05-30] MEDS: LEVALBUTEROL 1.25MG/0.5ML NEB INH SCH ×4 (00:37→19:43)
[2020-05-30] MEDS: IPRATROPIUM BROMIDE NEB SOLN 0.02% 2.5 ML VIAL INH SCH ×4 (00:37→19:42)
[2020-05-30] MEDS: LEVOTHYROXINE SODIUM 50 MCG TABLET PO SCH (06:06)
[2020-05-30 07:11] LABS: BUN Creatinine Ratio 23.6 (10-20); Creatinine Clr Calc Pharmacy 64.3 ml/min; Est GFR (African American) 97.4; Est GFR (Non-African American) 84.1; Magnesium 1.8 mg/dl (1.8-2.4); Phosphorus 3.1 mg/dl (2.5-4.9); Potassium 4.8 mmol/L (3.5-5.1)
[2020-05-30] MEDS: SERTRALINE HCL 100 MG TABLET PO SCH (07:30)
[2020-05-30] MEDS: PANTOprazole 40 MG TAB PO SCH (07:30)
[2020-05-30] MEDS: NICOTINE 7 MG/24 HR TDSY TD SCH (07:30)
[2020-05-30] MEDS: VERAPAMIL HCL 120 MG TABCR PO SCH (07:31)
[2020-05-30] MEDS: ATORVASTATIN 40 MG TAB PO SCH (07:31)
[2020-05-30] MEDS: THIAMINE HCL 100 MG TAB PO SCH (07:31)
[2020-05-30] MEDS: guaiFENesin 600 MG TABCR PO SCH ×2 (07:31→20:44)
[2020-05-30] MEDS: LIDOCAINE 5% 1 PATCH TD SCH (07:32)
[2020-05-30] MEDS: FOLIC ACID 1 MG TAB PO SCH (07:32)
[2020-05-30] MEDS: POT PHOSPHATE MONOBASIC W/ SOD TAB PO SCH (07:32)
[2020-05-30] MEDS: metroNIDAZOLE 500 MG TAB PO SCH ×3 (07:32→20:44)
[2020-05-30] MEDS: MULTIVITAMIN TAB PO SCH (07:32)
--- NOTE | 2020-05-30 08:13 | Hospitalist Progress Note ---
Date of Service May 30, 2020 Assessment & Plan (1) Acute exacerbation of chronic obstructive pulmonary disease: Acute on chronic hypoxic, hypercarbic resp. failure in the setting of COPD exacerbation and bronchitis Complicated bronchitis secondary to above At baseline uses 3.5-4L of supl. O2 via NC Rule out pulmonary embolism as contributory factor to worsening shortness of breath the last few days CT PE obtained, negative for PE However CT shows severe emphysema and moderate bronchial wall thickening with mucous plugging within the right lower lobe Patient was started on doxycycline on admission, nebs RTC, steroids Chest PT ordered, flutter valve Pulmonary medicine consulted- methylprednisolone IV BID, BiPAP, trilogy for home Used trilogy at home in the past, patient may be open to it again now Pt feels only somewhat improved since admission, cont. to have episodes of shortness of breath Pt cont. 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, pulmonary office was notified Mild acute diverticulitis CT abdomen pelvis obtained due to right flank pain Right flank pain a few weeks duration Nonobstructing bilateral nephrolithiasis Patient was started on Cipro and Flagyl for diverticulitis Anemia Patient history of chronic anemia as well Current hemoglobin ~10, down from 12.5 We will obtain FOBT and will monitor H&H No signs of bleeding H&H stable T10 acute/subacute compression fracture of superior endplate -Currently denies significant back pain -orthopedics consulted Hypertension, BP stable PAF, off Coumadin since 2019 secondary to GI bleed and patient compliant issues, patient NSR DM2, on oral medications, well controlled as of recent hemoglobin A1c of 5.1 last April 2020 Basal insulin, ISS BG goal 140-180, carb count coverage history of TIA as per records Ongoing tobacco abuse Nicotine patch as needed, cessation counseling provided DT precautions/MELY S DVT prophylaxis. SCDs Full code Admission and Anticipated Discharge Date Admission Date: May 24, 2020 Subjective Patient seen in follow-up of increase shortness of breath, mild acute diverticulitis Patient is currently laying in bed,in no acute distress He is a supplemental oxygen, says that at home he does use 3.5 to 4 L. Says that he is on and off frequently short of breath, feels only little improved since his hospitalization. Pulmonary medicine consulted, recommended patient to start on BiPAP, possibly starting trilogy at home again, and IV methylprednisolone. will call PT/OT for eval, will discuss further w/ CM Patient may be open to trilogy as well, however he may need SNF and he was not open to it before. Review of Systems Review of Systems: All systems reviewed & are unremarkable except as noted in HPI & below Constitutional: + fatigue and + weakness (generalized); no fever and no chills Respiratory: + cough and + dyspnea Cardiovascular: no chest pain, no palpitations and no edema Gastrointestinal: no abdominal pain, no nausea and no vomiting Physical Exam Physical Exam: GENERAL: WD, WN, on suppl. O2 4L via NC HEENT: NC/AT, Pale palpebral conjunctivae NECK : Supple, no tenderness CHEST : diminished breath sounds,+ mild diffuse rhonchi, + mild exp. wheezes HEART : rrr, no obvious murmurs ABDOMEN: soft, nontender to palp., + bowel sounds BACK : + R flank tenderness (much improved) EXTREMITIES : No LE swelling/tenderness, moves extremities spontaneously NEUROLOGIC : Alert and oriented x3, answering questions appropriately, no facial asymmetry, no other gross focality SKIN: Pale, warm, dry Results & Data Results & Data ([facility]) Vital Signs (Past 12 Hours) Vital Signs Temp Pulse Pulse Resp BP Pulse Ox 05/30/20 07:24 63 18 99 05/30/20 03:48 36.5 C 70 20 116/64 98 05/30/20 00:37 66 20 98 05/30/20 00:18 64 05/29/20 23:04 36.9 C 74 18 119/64 98 Laboratory Results 05/30/20 05/30/20 05/29/20 Range/Units 07:40 05:39 20:13 Sodium 140 (136-145) mmol/L Potassium 4.8 D (3.5-5.1) mmol/L Chloride 103 (98-107) mmol/L Carbon Dioxide 36 H (21-32) mmol/L Anion Gap 1.0 L (3-11) BUN 22 H (7-18) mg/dl Creatinine 0.93 (0.6-1.4) mg/dl Est Cr Clr Drug Dosing 64.3 ml/min Est GFR ( Amer) 97.4 Est GFR (Non-Af Amer) 84.1 BUN/Creatinine Ratio 23.6 H (10-20) Glucose 202 H (70-99) mg/dl POC Glucose 159 H 154 H (70-99) mg/dl Calcium 8.0 L (8.5-10.1) mg/dl Phosphorus 3.1 (2.5-4.9) mg/dl Magnesium 1.8 (1.8-2.4) mg/dl 05/29/20 05/29/20 05/29/20 Range/Units 16:35 11:04 08:04 Sodium 142 (136-145) mmol/L Potassium 4.1 (3.5-5.1) mmol/L Chloride 105 (98-107) mmol/L Carbon Dioxide 37 H (21-32) mmol/L Anion Gap 0 L (3-11) BUN 27 H (7-18) mg/dl Creatinine 0.80 (0.6-1.4) mg/dl Est Cr Clr Drug Dosing 74.8 ml/min Est GFR ( Amer) 106.4 Est GFR (Non-Af Amer) 91.8 BUN/Creatinine Ratio 33.2 H (10-20) Glucose 67 L (70-99) mg/dl POC Glucose 111 H 150 H (70-99) mg/dl Calcium 8.2 L (8.5-10.1) mg/dl Phosphorus 4.0 (2.5-4.9) mg/dl Magnesium 1.9 (1.8-2.4) mg/dl Medications Administered Current Inpatient Medications Acetaminophen (Acetaminophen 325 Mg Tab) 650 mg PO Q4H PRN PRN Reason: Pain or Fever Stop: 06/23/20 06:56 Atorvastatin Calcium (Atorvastatin 40 Mg Tab) 40 mg PO QAM [facility] Stop: 06/23/20 08:59 Last Admin: 05/30/20 07:31 Dose: 40 mg Documented by: Dextrose (Dextrose 50% 50 Ml Syringe) 25 - 50 ml IV UD PRN; Protocol PRN Reason: Hypoglycemia Protocol Stop: 06/23/20 06:56 Docusate Sodium (Docusate Sodium 100 Mg Cap) 100 mg PO DAILY [facility] Stop: 06/23/20 08:59 Last Admin: 05/29/20 07:46 Dose: Not Given Documented by: Enoxaparin Sodium (Enoxaparin Inj 30 Mg/0.3 Ml Syr) 30 mg SQ QAM [facility] Stop: 06/23/20 08:59 Last Admin: 05/25/20 07:58 Dose: 30 mg Documented by: Folic Acid (Folic Acid 1 Mg Tab) 1 mg PO QAM [facility] Stop: 06/24/20 08:59 Last Admin: 05/30/20 07:32 Dose: 1 mg Documented by: Gabapentin (Gabapentin 300 Mg Cap) 300 mg PO HS [facility] Stop: 06/23/20 20:59 Last Admin: 05/29/20 20:13 Dose: 300 mg Documented by: Glucagon (Glucagon For Inj 1 Mg Vial) 1 mg SQ UD PRN; Protocol PRN Reason: Hypoglycemia Protocol Stop: 06/23/20 06:56 Glucose (Glucose 10 Tabs/Tube) 4 - 8 tabs PO UD PRN; Protocol PRN Reason: Hypoglycemia Protocol Stop: 06/23/20 06:56 Glucose (Glucose 40% Gel 15 Gm Tube) 15 - 30 gm PO UD PRN; Protocol PRN Reason: Hypoglycemia Protocol Stop: 06/23/20 06:56 Guaifenesin (Guaifenesin 600 Mg Tabcr) 600 mg PO Q12 [facility] Stop: 06/24/20 08:59 Last Admin: 05/30/20 07:31 Dose: 600 mg Documented by: Lorazepam (Ativan) 1 mg in 2 mls @ 2 mls/min IV UD PRN; Protocol PRN Reason: EtOH Withdrawl AWSS Score 6,7 Stop: 06/23/20 06:56 Lorazepam (Ativan) 2 mg in 4 mls @ 4 mls/min IV UD PRN; Protocol PRN Reason: EtOH Withdrawl AWSS Score 8,9 Stop: 06/23/20 06:56 Lorazepam (Ativan) 3 mg in 6 mls @ 4 mls/min IV ONCE PRN; Protocol PRN Reason: EtOH Withdrawl AWSS Score >=10 Stop: 06/23/20 06:56 Promethazine HCl 6.25 mg/ (Sodium Chloride) 50.25 mls @ 201 mls/hr IV Q6H PRN PRN Reason: Nausea And Vomiting Stop: 06/23/20 06:56 Ciprofloxacin (Cipro / D5w) 400 mg in 200 mls @ 100 mls/hr IV Q12H [facility]; Protocol Stop: 06/03/20 11:59 Last Infusion: 05/30/20 03:17 Dose: Infused Documented by: Insulin Aspart (Insulin Aspart 100 Units/Ml 3 Ml Pen) 0 units SC ACHS [facility] Stop: 06/23/20 06:56 Last Admin: 05/29/20 20:14 Dose: Not Given Documented by: Insulin Glargine (Insulin Glargine Solostar 100 Units/Ml 3 Ml Pen) 5 units SC DAILY [facility] Stop: 06/23/20 08:59 Last Admin: 05/29/20 08:38 Dose: 5 units Documented by: Ipratropium [place] (Ipratropium [place] Neb Soln 0.02% 2.5 Ml Vial) 0.5 mg INH Q6R [facility] Stop: 06/25/20 12:59 Last Admin: 05/30/20 07:24 Dose: 0.5 mg Documented by: Ipratropium [place] (Ipratropium [place] Neb Soln 0.02% 2.5 Ml Vial) 0.5 mg INH Q2H PRN PRN Reason: wheezing shortness of breath Stop: 06/25/20 10:44 Last Admin: 05/27/20 17:20 Dose: 0.5 mg Documented by: Levalbuterol HCl (Levalbuterol 1.25mg/0.5ml Neb) 1.25 mg INH Q6R [facility] Stop: 06/25/20 12:59 Last Admin: 05/30/20 07:24 Dose: 1.25 mg Documented by: Levalbuterol HCl (Levalbuterol 1.25mg/0.5ml Neb) 1.25 mg INH Q2H PRN PRN Reason: wheezing shortness of breath Stop: 06/25/20 10:44 Last Admin: 05/27/20 17:20 Dose: 1.25 mg Documented by: Levothyroxine Sodium (Levothyroxine Sodium 50 Mcg Tablet) 50 mcg PO DAILYBB [facility] Stop: 06/24/20 06:29 Last Admin: 05/30/20 06:06 Dose: 50 mcg Documented by: Lidocaine (Lidocaine 5% 1 Patch) 1 patch TD QAM [facility] Stop: 06/24/20 11:14 Last Admin: 05/30/20 07:32 Dose: 1 patch Documented by: Metronidazole (Metronidazole 500 Mg Tab) 500 mg PO TID [facility] Stop: 06/03/20 13:59 Last Admin: 05/30/20 07:32 Dose: 500 mg Documented by: Miscellaneous (Carbohydrates For Hypoglycemia ) 15 - 30 gm PO UD PRN PRN Reason: Hypoglycemia Protocol Stop: 06/23/20 06:56 Miscellaneous (Remove Lidoderm Patch) 1 ea N/A DAILY@2100 [facility] Stop: 06/24/20 11:14 Last Admin: 05/29/20 20:13 Dose: 1 ea Documented by: Miscellaneous (Remove Nicoderm Patch) 1 ea N/A DAILY@0859 [facility] Stop: 06/29/20 08:58 Last Admin: 05/30/20 07:31 Dose: 1 ea Documented by: Montelukast Sodium (Montelukast Sodium 10 Mg Tablet) 10 mg PO PM [facility] Stop: 06/23/20 20:59 Last Admin: 05/29/20 20:11 Dose: 10 mg Documented by: Multivitamins (Multivitamin Tab) 1 tab PO QAM [facility] Stop: 06/24/20 08:59 Last Admin: 05/30/20 07:32 Dose: 1 tab Documented by: Nicotine (Nicotine 7 Mg/24 Hr Tdsy) 7 mg TD DAILY [facility] Stop: 06/29/20 08:59 Last Admin: 05/30/20 07:30 Dose: 7 mg Documented by: Oxycodone HCl (Oxycodone Hcl Ir 5 Mg Tab (Immediate Release)) 5 mg PO Q4H PRN PRN Reason: Pain Stop: 06/07/20 06:56 Pantoprazole Sodium (Pantoprazole 40 Mg Tab) 40 mg PO DAILY [facility] Stop: 06/23/20 08:59 Last Admin: 05/30/20 07:30 Dose: 40 mg Documented by: Polyethylene Glycol (Polyethylene (Miralax) 17 Gm Pack) 17 gm PO DAILY [facility] Stop: 06/26/20 16:29 Last Admin: 05/29/20 07:43 Dose: Not Given Documented by: Potassium Phosphate (Pot Phosphate Monobasic W/ Sod Tab) 1 tab PO QID [facility] Stop: 06/26/20 12:59 Last Admin: 05/30/20 07:32 Dose: 1 tab Documented by: Sertraline HCl (Sertraline Hcl 100 Mg Tablet) 100 mg PO DAILY [facility] Stop: 06/23/20 08:59 Last Admin: 05/30/20 07:30 Dose: 100 mg Documented by: Thiamine HCl (Thiamine Hcl 100 Mg Tab) 100 mg PO QAM [facility] Stop: 06/24/20 08:59 Last Admin: 05/30/20 07:31 Dose: 100 mg Documented by: Verapamil HCl (Verapamil Hcl 120 Mg Tabcr) 120 mg PO DAILY [facility] Stop: 06/23/20 08:59 Last Admin: 05/30/20 07:31 Dose: 120 mg Documented by:
[2020-05-30] MEDS: POLYETHYLENE (MIRALAX) 17 GM PACK PO SCH (08:16)
[2020-05-30] MEDS: INSULIN ASPART 100 UNITS/ML 3 ML PEN SC SCH ×4 (08:19→20:22)
[2020-05-30] MEDS: INSULIN GLARGINE SOLOSTAR 100 UNITS/ML 3 ML PEN SC SCH (08:19)
[2020-05-30] MEDS: DOCUSATE SODIUM 100 MG CAP PO SCH (08:23)
[2020-05-30] MEDS ORDERED: MAGNESIUM SULFATE / D5W 1 GM/100 ML BAG IV ONE (08:30)
[2020-05-30] MEDS: MAGNESIUM OXIDE 400 MG TAB PO SCH (09:40)
[2020-05-30] MEDS: CIPROFLOXACIN / D5W 400 MG/200 ML BAG IV SCH ×2 (11:55→23:34)
[2020-05-30] MEDS: GABAPENTIN 300 MG CAP PO SCH (20:44)
[2020-05-30] MEDS: MONTELUKAST SODIUM 10 MG TABLET PO SCH (20:44)
[2020-05-31] MEDS: LEVALBUTEROL 1.25MG/0.5ML NEB INH SCH ×4 (01:23→19:36)
[2020-05-31] MEDS: IPRATROPIUM BROMIDE NEB SOLN 0.02% 2.5 ML VIAL INH SCH ×4 (01:23→19:36)
[2020-05-31] MEDS: LEVOTHYROXINE SODIUM 50 MCG TABLET PO SCH (05:01)
[2020-05-31 07:32] LABS: BUN Creatinine Ratio 28.6 (10-20); Calcium 7.7 mg/dl (8.5-10.1); Creatinine Clr Calc Pharmacy 81.5 ml/min; Est GFR (African American) 109.2; Est GFR (Non-African American) 94.3; Magnesium 2.3 mg/dl (1.8-2.4); Potassium 4.5 mmol/L (3.5-5.1)
[2020-05-31] MEDS: guaiFENesin 600 MG TABCR PO SCH ×2 (07:47→20:33)
[2020-05-31] MEDS: VERAPAMIL HCL 120 MG TABCR PO SCH (07:47)
[2020-05-31] MEDS: FOLIC ACID 1 MG TAB PO SCH (07:47)
[2020-05-31] MEDS: POLYETHYLENE (MIRALAX) 17 GM PACK PO SCH (07:48)
[2020-05-31] MEDS: MAGNESIUM OXIDE 400 MG TAB PO SCH (07:48)
[2020-05-31] MEDS: ATORVASTATIN 40 MG TAB PO SCH (07:48)
[2020-05-31] MEDS: THIAMINE HCL 100 MG TAB PO SCH (07:48)
[2020-05-31] MEDS: PANTOprazole 40 MG TAB PO SCH (07:49)
[2020-05-31] MEDS: MULTIVITAMIN TAB PO SCH (07:49)
[2020-05-31] MEDS: metroNIDAZOLE 500 MG TAB PO SCH ×3 (07:49→20:33)
[2020-05-31] MEDS: LIDOCAINE 5% 1 PATCH TD SCH (07:49)
[2020-05-31] MEDS: SERTRALINE HCL 100 MG TABLET PO SCH (07:50)
[2020-05-31] MEDS: NICOTINE 7 MG/24 HR TDSY TD SCH (07:50)
[2020-05-31] MEDS: INSULIN ASPART 100 UNITS/ML 3 ML PEN SC SCH ×4 (08:58→21:23)
[2020-05-31] MEDS: INSULIN GLARGINE SOLOSTAR 100 UNITS/ML 3 ML PEN SC SCH (08:59)
[2020-05-31] MEDS: DOCUSATE SODIUM 100 MG CAP PO SCH (10:33)
[2020-05-31] MEDS: CIPROFLOXACIN / D5W 400 MG/200 ML BAG IV SCH (12:51)
[2020-05-31] MEDS: predniSONE 20 MG TAB PO SCH (17:12)
[2020-05-31] MEDS: GABAPENTIN 300 MG CAP PO SCH (20:33)
[2020-05-31] MEDS: MONTELUKAST SODIUM 10 MG TABLET PO SCH (20:34)
[2020-06-01] MEDS: LEVALBUTEROL 1.25MG/0.5ML NEB INH SCH ×4 (00:24→19:24)
[2020-06-01] MEDS: IPRATROPIUM BROMIDE NEB SOLN 0.02% 2.5 ML VIAL INH SCH ×4 (00:24→19:23)
[2020-06-01] MEDS: CIPROFLOXACIN / D5W 400 MG/200 ML BAG IV SCH ×3 (00:39→23:46)
[2020-06-01] MEDS: LEVOTHYROXINE SODIUM 50 MCG TABLET PO SCH (06:04)
[2020-06-01] MEDS: LIDOCAINE 5% 1 PATCH TD SCH (07:34)
[2020-06-01] MEDS: PANTOprazole 40 MG TAB PO SCH (07:35)
[2020-06-01] MEDS: FOLIC ACID 1 MG TAB PO SCH (07:35)
[2020-06-01] MEDS: VERAPAMIL HCL 120 MG TABCR PO SCH (07:35)
[2020-06-01] MEDS: POLYETHYLENE (MIRALAX) 17 GM PACK PO SCH (07:35)
[2020-06-01] MEDS: ATORVASTATIN 40 MG TAB PO SCH (07:35)
[2020-06-01] MEDS: predniSONE 20 MG TAB PO SCH (07:35)
[2020-06-01] MEDS: MULTIVITAMIN TAB PO SCH (07:36)
[2020-06-01] MEDS: SERTRALINE HCL 100 MG TABLET PO SCH (07:36)
[2020-06-01] MEDS: NICOTINE 7 MG/24 HR TDSY TD SCH (07:36)
[2020-06-01] MEDS: THIAMINE HCL 100 MG TAB PO SCH (07:36)
[2020-06-01] MEDS: metroNIDAZOLE 500 MG TAB PO SCH ×3 (07:36→20:25)
[2020-06-01] MEDS: guaiFENesin 600 MG TABCR PO SCH ×2 (07:37→20:24)
[2020-06-01] MEDS: INSULIN ASPART 100 UNITS/ML 3 ML PEN SC SCH ×4 (08:21→20:24)
--- NOTE | 2020-06-01 08:21 | Hospitalist Progress Note ---
Date of Service May 31, 2020 Assessment & Plan (1) Acute exacerbation of chronic obstructive pulmonary disease: Acute on chronic hypoxic, hypercarbic resp. failure in the setting of COPD exacerbation and bronchitis Complicated bronchitis secondary to above At baseline uses 3.5-4L of supl. O2 via NC Rule out pulmonary embolism as contributory factor to worsening shortness of breath the last few days CT PE obtained, negative for PE However CT shows severe emphysema and moderate bronchial wall thickening with mucous plugging within the right lower lobe Patient was started on doxycycline on admission, nebs RTC, steroids Chest PT ordered, flutter valve Pulmonary medicine consulted- methylprednisolone IV BID, BiPAP, trilogy for home Used trilogy at home in the past, patient may be open to it again now Pt feels only somewhat improved since admission, cont. to have episodes of shortness of breath Pt cont. 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, pulmonary office was notified Pt should follow up w/ his quill fixer after DC Likely plan for [facility] after hospital DC, per CM Mild acute diverticulitis CT abdomen pelvis obtained due to right flank pain Right flank pain a few weeks duration Nonobstructing bilateral nephrolithiasis Patient was started on Cipro and Flagyl for diverticulitis Anemia Patient history of chronic anemia as well Current hemoglobin ~10, down from 12.5 We will obtain FOBT and will monitor H&H No signs of bleeding H&H stable T10 acute/subacute compression fracture of superior endplate -Currently denies significant back pain -orthopedics consulted Hypertension, BP stable PAF, off Coumadin since 2019 secondary to GI bleed and patient compliant issues, patient NSR DM2, on oral medications, well controlled as of recent hemoglobin A1c of 5.1 last April 2020 Basal insulin, ISS BG goal 140-180, carb count coverage history of TIA as per records Ongoing tobacco abuse Nicotine patch as needed, cessation counseling provided DT precautions/MELY S DVT prophylaxis. SCDs Full code Admission and Anticipated Discharge Date Admission Date: May 24, 2020 Subjective Patient seen in follow-up of increase shortness of breath, mild acute diverticulitis Patient is currently laying in bed,in no acute distress He is a supplemental oxygen, says that at home he does use 3.5 to 4 L. Says that he is on and off frequently short of breath, feels only somewhat improved since his hospitalization. Pulmonary medicine consulted, recommended patient to start on BiPAP, possibly starting trilogy at home again, and IV methylprednisolone. PT/OT for eval, will discuss further w/ CM Patient may be open to trilogy as well, however he may need SNF and he was not open to it before. Now plan for [facility] Review of Systems Review of Systems: All systems reviewed & are unremarkable except as noted in HPI & below Constitutional: + fatigue and + weakness (generalized); no fever and no chills Respiratory: + cough and + dyspnea (improved) Cardiovascular: no chest pain and no palpitations Gastrointestinal: no abdominal pain, no nausea and no vomiting Physical Exam Physical Exam: GENERAL: WD, WN, on suppl. O2 4L via NC HEENT: NC/AT, Pale palpebral conjunctivae NECK : Supple, no tenderness CHEST : diminished breath sounds,+ mild diffuse rhonchi, + mild exp. wheezes HEART : rrr, no obvious murmurs ABDOMEN: soft, nontender to palp., + bowel sounds BACK : + R flank tenderness (much improved) EXTREMITIES : No LE swelling/tenderness, moves extremities spontaneously NEUROLOGIC : Alert and oriented x3, answering questions appropriately, no facial asymmetry, no other gross focality SKIN: Pale, warm, dry Results & Data Results & Data ([facility]) Vital Signs (Past 12 Hours) Vital Signs Temp Pulse Pulse Resp BP BP Pulse Ox 05/31/20 23:51 36.6 C 70 18 148/77 H 97
[2020-06-01] MEDS: INSULIN GLARGINE SOLOSTAR 100 UNITS/ML 3 ML PEN SC SCH (08:23)
[2020-06-01] MEDS: DOCUSATE SODIUM 100 MG CAP PO SCH (10:23)
[2020-06-01] MEDS: MAGNESIUM OXIDE 400 MG TAB PO SCH (10:23)
--- NOTE | 2020-06-01 14:31 | Hospitalist Progress Note ---
Date of Service June 01, 2020 Assessment & Plan (1) Acute exacerbation of chronic obstructive pulmonary disease: Completed course of antibiotics and remains on daily prednisone and bronchodilator therapy. Some wheezing still present on exam. Continue current therapy as patient is improved significantly. (2) Acute diverticulitis: Continue Cipro Flagyl. No evidence of abdominal pain and patient is tolerating p.o. and is afebrile. (3) Fracture, thoracic vertebra, compression: No recommendations for surgery, continue conservative measures including pain management as needed (4) Tobacco use: Continue to encourage smoking cessation efforts. Continue NicoDerm patch. (5) Alcohol use: (6) DVT prophylaxis: Lovenox Full code Disposition-likely to SNF in 1 to 2 days. Authorization pending. Bernie Carey DO [facility] hospitalist. Admission and Anticipated Discharge Date Admission Date: May 24, 2020 Subjective 70-year-old active smoker with known history of COPD presented with acute shortness of breath and admitted for COPD exacerbation. Incidental flank pain led to imaging of the abdomen and mild acute diverticulitis. Today he reports no abdominal pain and is tolerating p.o. His breathing is significantly improved and he feels he is ready for discharge soon. Afebrile Review of Systems Review of Systems: All systems reviewed & are unremarkable except as noted in Subjective Physical Exam Physical Exam: CONSTITUTIONAL: WNWD, generally well-appearing EYES: normal conjunctivae, no scleral icterus ENT: external ear and nose normal RESPIRATORY: wheezing throughout, no crackles or rales. normal respiratory effort, diminished breath sounds at the bases. CARDIOVASCULAR: regular rate and rhythm, S1 and 2 heard without murmurs, gallops or rubs, no JVD, no peripheral edema MUSCULOSKELETAL: generalized weakness, able to sit up on bedside without issue, head is normocephalic and atraumatic SKIN: warm and dry NEUROLOGIC: CN 2-12 grossly intact, normal cognition, normal speech, no tremor, no gross focal deficits. PSYCHIATRIC: alert cooperative and oriented to person, place and time. Results & Data Results & Data ([facility]) Vital Signs (Past 12 Hours) Vital Signs Temp Pulse Pulse Resp BP BP Pulse Ox 06/01/20 13:20 77 18 95 06/01/20 11:59 36.6 C 62 20 116/67 100 06/01/20 08:30 57 L 06/01/20 07:41 62 18 98 06/01/20 07:32 36.6 C 65 20 123/73 96 06/01/20 04:22 36.8 C 85 18 103/61 100 Medications Administered Current Inpatient Medications Acetaminophen (Acetaminophen 325 Mg Tab) 650 mg PO Q4H PRN PRN Reason: Pain or Fever Stop: 06/23/20 06:56 Atorvastatin Calcium (Atorvastatin 40 Mg Tab) 40 mg PO QAM [facility] Stop: 06/23/20 08:59 Last Admin: 06/01/20 07:35 Dose: 40 mg Documented by: Dextrose (Dextrose 50% 50 Ml Syringe) 25 - 50 ml IV UD PRN; Protocol PRN Reason: Hypoglycemia Protocol Stop: 06/23/20 06:56 Docusate Sodium (Docusate Sodium 100 Mg Cap) 100 mg PO DAILY [facility] Stop: 06/23/20 08:59 Last Admin: 06/01/20 10:23 Dose: 100 mg Documented by: Enoxaparin Sodium (Enoxaparin Inj 30 Mg/0.3 Ml Syr) 30 mg SQ QAM [facility] Stop: 06/23/20 08:59 Last Admin: 05/25/20 07:58 Dose: 30 mg Documented by: Folic Acid (Folic Acid 1 Mg Tab) 1 mg PO QAM [facility] Stop: 06/24/20 08:59 Last Admin: 06/01/20 07:35 Dose: 1 mg Documented by: Gabapentin (Gabapentin 300 Mg Cap) 300 mg PO HS [facility] Stop: 06/23/20 20:59 Last Admin: 05/31/20 20:33 Dose: 300 mg Documented by: Glucagon (Glucagon For Inj 1 Mg Vial) 1 mg SQ UD PRN; Protocol PRN Reason: Hypoglycemia Protocol Stop: 06/23/20 06:56 Glucose (Glucose 10 Tabs/Tube) 4 - 8 tabs PO UD PRN; Protocol PRN Reason: Hypoglycemia Protocol Stop: 06/23/20 06:56 Glucose (Glucose 40% Gel 15 Gm Tube) 15 - 30 gm PO UD PRN; Protocol PRN Reason: Hypoglycemia Protocol Stop: 06/23/20 06:56 Guaifenesin (Guaifenesin 600 Mg Tabcr) 600 mg PO Q12 [facility] Stop: 06/24/20 08:59 Last Admin: 06/01/20 07:37 Dose: 600 mg Documented by: Lorazepam (Ativan) 1 mg in 2 mls @ 2 mls/min IV UD PRN; Protocol PRN Reason: EtOH Withdrawl AWSS Score 6,7 Stop: 06/23/20 06:56 Lorazepam (Ativan) 2 mg in 4 mls @ 4 mls/min IV UD PRN; Protocol PRN Reason: EtOH Withdrawl AWSS Score 8,9 Stop: 06/23/20 06:56 Lorazepam (Ativan) 3 mg in 6 mls @ 4 mls/min IV ONCE PRN; Protocol PRN Reason: EtOH Withdrawl AWSS Score >=10 Stop: 06/23/20 06:56 Promethazine HCl 6.25 mg/ (Sodium Chloride) 50.25 mls @ 201 mls/hr IV Q6H PRN PRN Reason: Nausea And Vomiting Stop: 06/23/20 06:56 Ciprofloxacin (Cipro / D5w) 400 mg in 200 mls @ 100 mls/hr IV Q12H [facility]; Protocol Stop: 06/03/20 11:59 Last Admin: 06/01/20 12:44 Dose: 100 mls/hr Documented by: Insulin Aspart (Insulin Aspart 100 Units/Ml 3 Ml Pen) 0 units SC ACHS [facility] Stop: 06/23/20 06:56 Last Admin: 06/01/20 12:46 Dose: 5 units Documented by: Insulin Glargine (Insulin Glargine Solostar 100 Units/Ml 3 Ml Pen) 5 units SC DAILY [facility] Stop: 06/23/20 08:59 Last Admin: 06/01/20 08:23 Dose: 5 units Documented by: Ipratropium [place] (Ipratropium [place] Neb Soln 0.02% 2.5 Ml Vial) 0.5 mg INH Q6R [facility] Stop: 06/25/20 12:59 Last Admin: 06/01/20 13:19 Dose: 0.5 mg Documented by: Ipratropium [place] (Ipratropium [place] Neb Soln 0.02% 2.5 Ml Vial) 0.5 mg INH Q2H PRN PRN Reason: wheezing shortness of breath Stop: 06/25/20 10:44 Last Admin: 05/27/20 17:20 Dose: 0.5 mg Documented by: Levalbuterol HCl (Levalbuterol 1.25mg/0.5ml Neb) 1.25 mg INH Q6R [facility] Stop: 06/25/20 12:59 Last Admin: 06/01/20 13:19 Dose: 1.25 mg Documented by: Levalbuterol HCl (Levalbuterol 1.25mg/0.5ml Neb) 1.25 mg INH Q2H PRN PRN Reason: wheezing shortness of breath Stop: 06/25/20 10:44 Last Admin: 05/27/20 17:20 Dose: 1.25 mg Documented by: Levothyroxine Sodium (Levothyroxine Sodium 50 Mcg Tablet) 50 mcg PO DAILYBB [facility] Stop: 06/24/20 06:29 Last Admin: 06/01/20 06:04 Dose: 50 mcg Documented by: Lidocaine (Lidocaine 5% 1 Patch) [facility] [place] [facility]: 06/24/20 11:14 Last Admin: 06/01/20 07:34 Dose: 1 patch Documented by: Magnesium Oxide (Magnesium Oxide 400 Mg Tab) 400 mg PO [facility] Stop: 06/29/20 08:59 Last Admin: 06/01/20 10:23 Dose: 400 mg Documented by: Metronidazole (Metronidazole 500 Mg Tab) 500 mg PO TID [facility] Stop: 06/03/20 13:59 Last Admin: 06/01/20 07:36 Dose: 500 mg Documented by: Miscellaneous (Carbohydrates For Hypoglycemia ) 15 - 30 gm PO UD PRN PRN Reason: Hypoglycemia Protocol Stop: 06/23/20 06:56 Miscellaneous (Remove Lidoderm Patch) 1 ea N/A DAILY@2100 [facility] Stop: 06/24/20 11:14 Last Admin: 05/31/20 20:37 Dose: 1 ea Documented by: Miscellaneous (Remove Nicoderm Patch) 1 ea N/A DAILY@0859 [facility] Stop: 06/29/20 08:58 Last Admin: 06/01/20 08:23 Dose: 1 ea Documented by: Montelukast Sodium (Montelukast Sodium 10 Mg Tablet) 10 mg PO PM [facility] Stop: 06/23/20 20:59 Last Admin: 05/31/20 20:34 Dose: 10 mg Documented by: Multivitamins (Multivitamin Tab) [facility] [place] Stop: 06/24/20 08:59 Last Admin: 06/01/20 07:36 Dose: 1 tab Documented by: Nicotine (Nicotine 7 Mg/24 Hr Tdsy) 7 mg TD DAILY [facility] Stop: 06/29/20 08:59 Last Admin: 06/01/20 07:36 Dose: 7 mg Documented by: Oxycodone HCl (Oxycodone Hcl Ir 5 Mg Tab (Immediate Release)) 5 mg PO Q4H PRN PRN Reason: Pain Stop: 06/07/20 06:56 Pantoprazole Sodium (Pantoprazole 40 Mg Tab) 40 mg PO DAILY [facility] Stop: 06/23/20 08:59 Last Admin: 06/01/20 07:35 Dose: 40 mg Documented by: Polyethylene Glycol (Polyethylene (Miralax) 17 Gm Pack) 17 gm PO DAILY [facility] Stop: 06/26/20 16:29 Last Admin: 06/01/20 07:35 Dose: 17 gm Documented by: Prednisone (Prednisone 20 Mg Tab) 20 mg PO QAM [facility] Stop: 06/30/20 16:14 Last Admin: 06/01/20 07:35 Dose: 20 mg Documented by: Sertraline HCl (Sertraline Hcl 100 Mg Tablet) 100 mg PO DAILY [facility] Stop: 06/23/20 08:59 Last Admin: 06/01/20 07:36 Dose: 100 mg Documented by: Thiamine HCl (Thiamine Hcl 100 Mg Tab) 100 mg PO QAM [facility] Stop: 06/24/20 08:59 Last Admin: 06/01/20 07:36 Dose: 100 mg Documented by: Verapamil HCl (Verapamil Hcl 120 Mg Tabcr) 120 mg PO DAILY [facility] Stop: 06/23/20 08:59 Last Admin: 06/01/20 07:35 Dose: 120 mg Documented by:
[2020-06-01] MEDS: GABAPENTIN 300 MG CAP PO SCH (20:23)
[2020-06-01] MEDS: MONTELUKAST SODIUM 10 MG TABLET PO SCH (20:25)
[2020-06-02] MEDS: LEVALBUTEROL 1.25MG/0.5ML NEB INH SCH ×3 (00:20→13:18)
[2020-06-02] MEDS: IPRATROPIUM BROMIDE NEB SOLN 0.02% 2.5 ML VIAL INH SCH ×3 (00:20→13:18)
[2020-06-02] MEDS: LEVOTHYROXINE SODIUM 50 MCG TABLET PO SCH (05:49)
[2020-06-02] MEDS: MULTIVITAMIN TAB PO SCH (08:00)
[2020-06-02] MEDS: SERTRALINE HCL 100 MG TABLET PO SCH (08:00)
[2020-06-02] MEDS: PANTOprazole 40 MG TAB PO SCH (08:00)
[2020-06-02] MEDS: LIDOCAINE 5% 1 PATCH TD SCH (08:00)
[2020-06-02] MEDS: FOLIC ACID 1 MG TAB PO SCH (08:00)
[2020-06-02] MEDS: VERAPAMIL HCL 120 MG TABCR PO SCH (08:00)
[2020-06-02] MEDS: NICOTINE 7 MG/24 HR TDSY TD SCH (08:00)
[2020-06-02] MEDS: POLYETHYLENE (MIRALAX) 17 GM PACK PO SCH (08:00)
[2020-06-02] MEDS: predniSONE 20 MG TAB PO SCH (08:00)
[2020-06-02] MEDS: MAGNESIUM OXIDE 400 MG TAB PO SCH (08:00)
[2020-06-02] MEDS: ATORVASTATIN 40 MG TAB PO SCH (08:00)
[2020-06-02] MEDS: guaiFENesin 600 MG TABCR PO SCH (08:00)
[2020-06-02] MEDS: THIAMINE HCL 100 MG TAB PO SCH (08:00)
[2020-06-02] MEDS: DOCUSATE SODIUM 100 MG CAP PO SCH (08:00)
[2020-06-02] MEDS: metroNIDAZOLE 500 MG TAB PO SCH ×2 (08:00→13:59)
[2020-06-02] MEDS: INSULIN GLARGINE SOLOSTAR 100 UNITS/ML 3 ML PEN SC SCH (08:01)
[2020-06-02] MEDS: INSULIN ASPART 100 UNITS/ML 3 ML PEN SC SCH ×2 (08:01→11:51)
[2020-06-02] MEDS: CIPROFLOXACIN / D5W 400 MG/200 ML BAG IV SCH (11:50)
--- NOTE | 2020-06-02 14:35 | Discharge Summary ---
Date of Service June 02, 2020 Admission HPI Per Admitting Provider Chief Complaint: Worsening shortness of breath Primary Care Provider: Dr. Rizzo History obtained from patient and records. Medical history significant for chronic respiratory failure secondary to COPD on home O2, ongoing tobacco abuse, hypertension, PAF off anticoagulation secondary to GI bleed/patient compliance issues, History TIA as per records, DM2, on oral medications, chronic anemia (baseline hemoglobin of 11), hx urolithiasis, ongoing tobacco/alcohol abuse Recent confinement April 2019 for pneumonia. Patient not feeling well since last month. Junky cough symptoms and worsening shortness of breath mostly on exertion. Denies chest pain or fluid retention. Denies aspiration. No fever, no chills. Did not want to go to the ER to get checked out because he was afraid of Covid. No known recent COVID-19 contacts. Patient seen at PCP's office 3 weeks ago. Right flank pain symptoms somewhat worse with motion. Symptoms attributed to musculoskeletal pathology as per documentation. Worsening symptoms the last few days. Nebs and Solu-Medrol administered by EMS on route to the hospital. Doxycycline administered at the ER. Medical History as above Surgical History : Eye surgery, urologic procedures, hip replacement Family History : Heart disease, diabetes Personal/Social history : One pack daily, alcohol abuse as per records, disabled Allergies Admission Exam Per Admitting Provider GENERAL: Comfortable, pleasant, minimal respiratory distress SKIN: Pallor, warm HEENT: Pale palpebral conjunctivae, no ptosis, dry buccal mucosa, O2 mask in place NECK : Supple, no tenderness CHEST : Decreased breath sounds, no tenderness HEART : RRR, no obvious murmurs ABDOMEN: Some distention, nontender BACK : Minimal flank tenderness EXTREMITIES : No LE swelling/tenderness, no other conspicuous deformities noted NEUROLOGIC : Coherent, no facial asymmetry, no other gross focality Principal Diagnosis COPD exacerbation Mild acute diverticulitis Tobacco abuse Discharge Exam CONSTITUTIONAL: WNWD, generally well-appearing EYES: normal conjunctivae, no scleral icterus ENT: external ear and nose normal RESPIRATORY: clear to auscultation bilaterally, no crackles, rales or wheezes, normal respiratory effort, diminished breath sounds at the bases. CARDIOVASCULAR: regular rate and rhythm, S1 and 2 heard without murmurs, gallops or rubs, no JVD, no peripheral edema MUSCULOSKELETAL: generalized weakness, able to sit up on bedside without issue, head is normocephalic and atraumatic SKIN: warm and dry NEUROLOGIC: CN 2-12 grossly intact, normal cognition, normal speech, no tremor, no gross focal deficits. PSYCHIATRIC: alert cooperative and oriented to person, place and time. Discharge Data Allergies Allergy/AdvReac Type Severity Reaction Status Date / Time turkey Allergy Unknown Verified 03/22/19 11:08 Consultations 05/24/20 05:20 ED Decision to Admit Stat 05/25/20 11:07 Consult Orthopedic Surgery Routine 05/26/20 11:02 Consult Pulmonology Routine Ordered Studies Laboratory Results WBC 10.85 K/uL (4.8-10.8) H 05/29/20 08:04 RBC 3.56 M/uL (4.7-6.1) L 05/29/20 08:04 Hgb 11.8 g/dL (14.0-18.0) L 05/29/20 08:04 Hct 36.5 % (42-52) L 05/29/20 08:04 MCV 102.5 fL (80-100) H 05/29/20 08:04 MCH 33.1 pg (25-34) 05/29/20 08:04 MCHC 32.3 g/dL (32-36) 05/29/20 08:04 RDW Std Deviation 48.4 fL (36.4-46.3) H 05/29/20 08:04 RDW Coeff of Daquan 12.8 % (11.5-14.5) 05/29/20 08:04 Plt Count 141 K/uL (130-400) 05/29/20 08:04 MPV 10.9 fL (7.4-10.4) H 05/29/20 08:04 Immature Gran % (Auto) 0.2 % 05/25/20 06:18 Neut % (Auto) 85.8 % 05/25/20 06:18 Lymph % (Auto) 5.6 % 05/25/20 06:18 Dixon % (Auto) 8.2 % 05/25/20 06:18 Eos % (Auto) 0.1 % 05/25/20 06:18 Baso % (Auto) 0.1 % 05/25/20 06:18 Neut # (Auto) 9.89 K/uL (1.4-6.5) H 05/25/20 06:18 Lymph # (Auto) 0.65 K/uL (1.2-3.4) L 05/25/20 06:18 Dixon # (Auto) 0.94 K/uL (0.11-0.59) H 05/25/20 06:18 Eos # (Auto) 0.01 K/uL (0-0.5) 05/25/20 06:18 Baso # (Auto) 0.01 K/uL (0-0.2) 05/25/20 06:18 Immature Gran # (Auto) 0.02 K/uL (0.00-0.02) 05/25/20 06:18 PT 9.4 Seconds (9.0-12.0) 05/25/20 06:18 INR 0.9 (0.9-1.1) 05/25/20 06:18 APTT 24.8 Seconds (21.0-31.0) 05/24/20 04:00 PTT Ratio 0.9 05/24/20 04:00 ABG pH 7.31 (7.35-7.45) L 05/24/20 06:02 ABG pCO2 62 mmHg (35-46) H 05/24/20 06:02 ABG pO2 131 mmHg (80-95) H 05/24/20 06:02 ABG HCO3 31 mmol/L (19-24) H 05/24/20 06:02 ABG O2 Saturation 98.4 % (90-95) H 05/24/20 06:02 ABG Base Excess 3.0 mEq/L (-9-1.8) H 05/24/20 06:02 Hussein Test Pos (Pos) 05/24/20 06:02 Barometric Pressure 732.3 mm/Hg 05/24/20 06:02 Oxygen Given 3L 05/24/20 06:02 Sodium 142 mmol/L (136-145) 05/31/20 06:22 Potassium 4.5 mmol/L (3.5-5.1) 05/31/20 06:22 Chloride 107 mmol/L (98-107) 05/31/20 06:22 Carbon Dioxide 37 mmol/L (21-32) H 05/31/20 06:22 Anion Gap -2.0 (3-11) L 05/31/20 06:22 BUN 22 mg/dl (7-18) H 05/31/20 06:22 Creatinine 0.75 mg/dl (0.6-1.4) 05/31/20 06:22 Est Cr Clr Drug Dosing 81.5 ml/min 05/31/20 06:22 Est GFR ( Amer) 109.2 05/31/20 06:22 Est GFR (Non-Af Amer) 94.3 05/31/20 06:22 BUN/Creatinine Ratio 28.6 (10-20) H 05/31/20 06:22 Glucose 79 mg/dl (70-99) 05/31/20 06:22 POC Glucose 171 mg/dl (70-99) H 06/02/20 11:29 Calcium 7.7 mg/dl (8.5-10.1) L 05/31/20 06:22 Phosphorus 3.1 mg/dl (2.5-4.9) 05/30/20 05:39 Magnesium 2.3 mg/dl (1.8-2.4) 05/31/20 06:22 Total Bilirubin 0.5 mg/dl (0.2-1) 05/24/20 04:00 Direct Bilirubin 0.2 mg/dl (0-0.2) 05/24/20 04:00 AST 18 U/L (15-37) 05/24/20 04:00 ALT 23 U/L (12-78) 05/24/20 04:00 Alkaline Phosphatase 194 U/L (45-117) H 05/24/20 04:00 Troponin I < 0.015 ng/ml (0-0.045) 05/24/20 04:00 Total Protein 7.0 gm/dl (6.4-8.2) 05/24/20 04:00 Albumin 3.4 gm/dl (3.4-5.0) 05/24/20 04:00 Ethyl Alcohol mg/dL < 3.0 mg/dl (0-3) 05/24/20 05:54 COVID-19 Eval Order Covid19 IDNow [facility] 06/01/20 11:11 SARS-CoV-2 (PCR) NEGATIVE (Negative) 05/24/20 04:15 Influenza Type A (PCR) Negative (Neg) 05/24/20 04:15 Influenza Type B (PCR) Negative (Neg) 05/24/20 04:15 RSV (RT-PCR) Negative (Neg) 05/24/20 04:15 SARS-CoV-2, RNA, NAAT NEGATIVE (NEGATIVE) 06/01/20 11:11 Impressions Chest X-Ray 05/24/20 04:05 XR chest 1V portable HISTORY: 70 years-old Male SHOB acute shortness of breath COMPARISON: Chest radiograph 04/19/2019, CTA chest 05/24/2020 TECHNIQUE: Portable AP view of the chest FINDINGS: Cardiomediastinal and hilar silhouettes are within normal limits. Severe emphysema with chronic interstitial coarsening. There is improved aeration of the lungs from comparison. No pneumothorax, pleural effusion, airspace consolidation or overt pulmonary edema. Degenerative changes of the shoulders and spine. IMPRESSION: Severe emphysema without acute process. ACT 112: Negative or not required by law. The above report was generated using voice recognition software. It may contain grammatical, syntax or spelling errors. Electronically signed by: Shalom Wills M.D. 05/24/2020 6:43 AM Chest CTA 05/24/20 05:33 CT ANGIOGRAPHY OF THE CHEST, PULMONARY EMBOLUS PROTOCOL CLINICAL HISTORY: Shortness of breath. COMPARISON STUDY: Chest CT April 19, 2019. Chest radiograph performed earlier today. TECHNIQUE: Following IV administration of 1 mL of [id number]-320, helical axial images of the chest were obtained utilizing the pulmonary embolus protocol. Maximal intensity projections and sagittal and coronal reformats were viewed on an independent 3D workstation. IV contrast was administered without complication. Automated exposure control was utilized for the study. A dose lowering technique was utilized adhering to the principles of ALARA. CT DOSE: 596.20 mGy.cm FINDINGS: No pulmonary emboli are identified. There is no thoracic aortic dissection. Size of the heart is normal. No enlarged axillary, mediastinal or hilar lymph nodes are present. There is no pneumothorax or pleural effusion. There are severe emphysema. Moderate bronchial wall thickening with mild mucus plugging within the right lower lobe is noted. There is no consolidation. Mild subpleural opacities favor atelectasis or scarring. Right apical scarring is noted. There is an old T12 compression fracture. There is an age indeterminate moderate compression fracture of the superior endplate of T10. There is mild adjacent infiltration. Abdomen and pelvis will be reported separate. IMPRESSION: 1. No pulmonary emboli identified. 2. Severe emphysema. 3. Moderate bronchial wall thickening with mucus plugging within the right lower lobe. 4. Moderate compression fracture of the superior endplate of T10 with minimal adjacent infiltration. This is likely acute to subacute. Old T12 compression fracture. ACT 112: Negative or not required by law. Electronically signed by: Cam Perez M.D. 05/24/2020 7:22 AM Abdomen/Pelvis CT 05/24/20 06:[address] WITHOUT CONTRAST HISTORY: Acute bilateral flank pain with shortness of breath FLANK PAIN TECHNIQUE: Multiaxial CT images of the abdomen and pelvis were performed without contrast. A dose lowering technique was utilized adhering to the principles of ALARA. COMPARISON STUDY: CTA chest of same day, CT abdomen and pelvis 04/23/2018 FINDINGS: Imaged inferior cardiac chambers are unremarkable. Emphysema with bibasilar mucous plugging. No pneumatosis or pneumoperitoneum. Limited evaluation of the solid abdominal organs without the use of IV contrast. Within the limitations of the study, the spleen, pancreas, gallbladder and liver appear unremarkable. Thickening of the adrenal glands suggestive of hyperplasia. 3 nonobstructing calculi of the right kidney measure up to 6 mm. 3 mm nonobstructing calculus of the inferior pole left kidney. Mild nonspecific bilateral perinephric stranding. No ureteral calculi or obstructive uropathy identified. Pelvic structures are suboptimally visualized secondary to streak artifact from right hip total joint arthroplasty. Mild bladder wall thickening with partial distention. Mild prostamegaly. Calcified plaque of the aorta without aneurysm. No adenopathy. No bowel obstruction. Mild rectal wall thickening, likely secondary to partial distention. There is an inflamed sigmoid diverticulum on image 222 series 3. No evidence of perforation or abscess. Mild associated focal wall thickening of the sigmoid. Normal appendix. Unremarkable soft tissues. Chronic T12 compression deformity. Acute versus subacute 25% superior endplate compression deformity at T10 with mild paravertebral edema. No significant retropulsion. IMPRESSION: 1. Mild acute sigmoid diverticulitis. No abscess or perforation. 2. No bowel obstruction. 3. Nonobstructing bilateral nephrolithiasis. 4. Acute versus subacute T10 25% superior endplate compression deformity 5. Additional findings as above. ACT 112: Negative or not required by law. The above report was generated using voice recognition software. It may contain grammatical, syntax or spelling errors. Electronically signed by: Shalom Wills M.D. 05/24/2020 8:49 AM Thoracic Spine MRI 05/25/20 12:13 THORACIC SPINE MRI HISTORY: Mid back pain. eval T10 compression fracture TECHNIQUE: Multiplanar multisequence MRI of the thoracic spine was performed without the use of contrast. COMPARISON: Chest CTA 05/24/2020. FINDINGS: There is confirmation of the moderate super endplate compression fracture at T10 which demonstrates approximately 40% loss of height. There is marrow edema within the T10 vertebral body consistent with an acute fracture. There is also a small acute nondisplaced compression fracture at the inferior endplate of T9 posteriorly. No significant retropulsion. There is a Schmorl's node along the superior endplate of T11. Old mild superior endplate compression deformity at T12 is again noted. The remaining thoracic spine vertebral bodies are maintained. The thoracic spinal cord is suboptimally assessed due to the motion artifact but is likely normal in signal intensity and caliber. Small broad-based posterior disc bulge at T9-T10 without significant central canal narrowing. 3 mm of retropulsion the posterior superior corner of T12 without significant central canal narrowing. Paravertebral edema at the T9 and T10 levels consistent with the acute fractures. IMPRESSION: 1. Acute moderate superior endplate compression fracture at T10. No significant retropulsion. 2. Acute small focal inferior endplate compression fracture at T9 without significant loss of height. 3. Old T12 compression deformity, unchanged. ACT 112: Negative or not required by law. Electronically signed by: Joshua Guzman M.D. 05/25/2020 2:27 PM Hospital Course (1) Acute exacerbation of chronic obstructive pulmonary disease: (2) Acute diverticulitis: (3) Tobacco use: (4) Alcohol use: The patient is a 70-year-old man who presented to the hospital with worsening shortness of breath. He is a history of chronic respiratory failure secondary to COPD on home oxygen with ongoing tobacco abuse and alcohol dependence. He has paroxysmal atrial fibrillation and is off anticoagulation secondary to history of bleeding and compliance issues. He was started on bronchodilator therapy, doxycycline and steroids and imaging studies were ordered. His CT of the chest with contrast revealed no evidence of pulmonary embolus, severe emphysema, moderate bronchial wall thickening with mucous plugging in the right lower lobe. Moderate compression fracture of the superior endplate of T10 that was likely acute to subacute was also seen in addition to an old T12 compression fracture. Based on these findings an order for consult was placed with orthopedic spine who recommended the patient may benefit from a TLSO brace but due to his severe COPD no recommendation of any type of aggressive surgical intervention was thought garcia. A CT of the abdomen and pelvis without contrast was also performed in response to flank pain that was present on admission. Mild acute diverticulitis was seen in the sigmoid colon with no abscess or perforation. There was also no evidence of bowel obstruction and nonobstructing bilateral nephrolithiasis was seen. He was treated with a course of ciprofloxacin and Flagyl and abdominal pain resolved prior to discharge. Pulmonology was consulted and recommended continuing with flutter valve for mucociliary clearance. Strong recommendation for complete smoking cessation was given by multiple providers. Consideration for alpha-1 antitr ypsin testing as outpatient was recommended overall it was felt his prognosis was poor. At time of discharge he was mentating clearly and ambulating around his baseline. Of note, he reports his baseline is ambulating 30 to 40 feet before stopping and being short of breath. He was hemodynamically stable and afebrile and tolerating p.o. Physical exam revealed resolution of wheezing on auscultation with diminished breath sounds throughout. The patient reportedly felt better and was closer to his breathing baseline. He reported feeling comfortable leaving the hospital and going into rehab with a longterm facility. He was discharged in stable condition to [facility] with close primary care follow-up recommended. Additional pulmonary follow-up is also recommended. Again it was reiterated the patient needs to quit smoking. He verbalized understanding with intent to comply. Total Time Total Time Spent Total Time Spent (In Minutes): 60 Total Time Includes: Examination of the Patient, Discharge Planning, Medication Reconciliation and Communication With Other Providers Discharge Plan Discharge Items Patient Disposition: Transfer [facility] Reason For Visit: COPD EXACERBATION Discharge Diagnosis: COPD exacerbation Mild acute diverticulitis Tobacco abuse Condition on Discharge: Good Activity: Resume your previous activity Non-emergency contact: Primary Care Provider Call non-emergency contact if: you have any medication questions and your symptoms worsen Follow-up/Referrals: PCP,NO [Primary Care Provider] - Diet: Carb Consistent or DM2 and Heart Healthy Addtl Attending Provider Instructions: Please take all medications as instructed on discharge as below. It is recommended that you follow-up with your primary care doctor within 1 week of discharge from the hospital. This will be important to ensure your breathing is completely back to baseline and you have a referral in place for pulmonology. It is recommended that you follow up with a local test operator regularly for continued care of your lung disease. It was a pleasure taking care of you! Please call if you have any questions or problems. You can reach a [facility] hospitalist on duty at [facility] 24 hours a day by calling [phone]. Take care of yourself. Bernie Carey, DO [facility] Hospitalist Pending Studies at Discharge: No Stand-Alone Forms: My [facility] Skilled Items Patient informed of condition?: Yes DNR: No Discharge Level of Care: Skilled Communicable Disease: No Discharge Prognosis: Stable Lines: None Urinary Catheter: No Medications and DC Order Prescriptions: Continued verapamil 120 mg Tablet Extended Release 120 mg PO DAILY RF: 0 levothyroxine 50 mcg Tablet 50 mcg PO DAILY RF: 0 pantoprazole 40 mg Tablet,Delayed Release (Dr/Ec) 40 mg PO DAILY RF: 0 Trelegy Ellipta 100-62.5-25 mcg Blister With Device 1 inh INHALATION DAILY RF: 0 sertraline 100 mg Tablet 100 mg PO DAILY RF: 0 montelukast 10 mg Tablet 10 mg PO PM RF: 0 guaifenesin 200 mg tablet 200 mg PO TID PRN (Reason: cough) Qty: 15 RF: 0 atorvastatin 40 mg tablet 40 mg PO QAM RF: 0 docusate sodium [Colace] 100 mg Capsule 100 mg PO DAILY RF: 0 gabapentin 300 mg capsule 300 mg PO HS RF: 0 metformin 1,000 mg Tablet Extended Release 24hr 1,000 mg PO DAILY RF: 0 albuterol sulfate 2.5 mg /3 mL (0.083 %) Solution For Nebulization 2.5 mg INHALATION TID Qty: 0 RF: 0 ipratropium bromide 0.02 % solution 0.5 mg Inhalation TID Qty: 0 RF: 0 hydroxyzine HCl 50 mg Tablet 50 mg PO Q6 PRN (Reason: anxiety/agitation) RF: 0 acetaminophen 325 mg Tablet 650 mg PO Q6 MDD 3g/24hr PRN (Reason: pain scale 1-4) RF: 0 Discharge Orders: Discharge Order (Routine); Ordered 06/02/20 Ordered By: Bernie Carey Admission Data Admit Date/Time: 05/24/20 05:35 Attending Provider: Bernie Carey Admit Provider: Dell Hamilton Primary Care Provider: PCP,NO Other Providers: Alejadnro Shelby ; Rory Pollard ; [place] ; [place] ; Dell Hamilton ; Apolinar Beltran ; Kaz Arias
== END 2020-06-02 16:11 | DRG 189 ==
LOC: ED 03:52 → 2W 05:35 → SUATTDRO 05:35 → 2W 06:22

== ENCOUNTER 2020-06-16 01:38 | Inpatient (IN) ==
[2020-06-16] MEDS ORDERED: dexAMETHasone**PF** 10 MG/ML VIAL IV ONE (01:45)
[2020-06-16] MEDS ORDERED: ALBUT/IPRATROP 3MG/0.5MG NEB 3 ML VIAL INH STA (01:45)
--- NOTE | 2020-06-16 01:54 | Emergency Department Note ---
History of Present Illness General Chief complaint: Shortness of Breath/Dyspnea Stated complaint: LOW PULSE OX READINGS, SHORT OF BREATH Time Seen by Provider: 06/16/20 01:40 History of Present Illness This 70-year-old presents to the ER complaining of shortness of breath who is currently at rehab for COPD Location: Chest Quality: Hard to breathe Severity: Moderate Duration: Tonight Timing: Tonight Context: skilled nursing was concerned as patient sats were in the 70s and summoned EMS Modifying factors: better with nebulizer; worse with activity Patient states he feels much better now. After the breathing treatment he is back at baseline. He normally wears 4 L. Patient sats on 4 L are 97%. He is received 1 Covid vaccine. Patient denies fever, chills, flulike illness, chest pain. Patient states he would like to go back to the rehab facility tonight. Home Medications Medication Instructions Recorded Confirmed Type atorvastatin 40 mg PO QAM 01/28/18 06/16/20 History docusate sodium [Colace] 100 mg PO DAILY 01/28/18 06/16/20 History gabapentin 300 mg PO HS 01/28/18 06/16/20 History metformin 1,000 mg PO DAILY 04/23/18 06/16/20 History ipratropium bromide 0.5 mg INHALATION TID #0 ml 04/30/18 06/16/20 Rx Trelegy Ellipta 1 inh INHALATION DAILY 02/13/19 06/16/20 History levothyroxine 50 mcg PO DAILY 02/13/19 06/16/20 History montelukast 10 mg PO PM 02/13/19 06/16/20 History pantoprazole 40 mg PO DAILY 02/13/19 06/16/20 History sertraline 100 mg PO DAILY 02/13/19 06/16/20 History verapamil 120 mg PO DAILY 02/13/19 06/16/20 History acetaminophen 650 mg PO Q6 PRN MDD 3g/24hr 02/22/19 06/16/20 History hydroxyzine HCl 50 mg PO Q6 PRN 02/22/19 06/16/20 History guaifenesin 200 mg PO TID PRN #15 tab 04/22/19 06/16/20 Rx albuterol sulfate 2.5 mg INHALATION UD PRN 06/16/20 06/16/20 History ipratropium-albuterol [Combivent 1 puff INHALATION QID 06/16/20 06/16/20 History Respimat] Allergies Allergy/AdvReac Type Severity Reaction Status Date / Time turkey Allergy Unknown Verified 06/16/20 02:15 Past Med/Surg History Medical History (Updated 06/16/20 @ 03:59 by Tami Peralta PA-C) Alcohol use BPH (benign prostatic hyperplasia) Chronic respiratory failure with hypoxia COPD (chronic obstructive pulmonary disease) Depression Diabetes mellitus, type II Dyslipidemia Esophageal stenosis "s/p dilation June 2016" GERD (gastroesophageal reflux disease) HTN (hypertension) Hypothyroidism Leg edema Mood disorder Paroxysmal atrial fibrillation Superficial thrombophlebitis "2009" TIA (transient ischemic attack) "1982" Surgical History History of cataract surgery S/P bronchoscopy Family History Other Diabetes Social History Smoking Status: Former smoker Tobacco Type: Cigarettes Cigarettes Per Day: 20; Second Hand Exposure: No; Hx Alcohol Use: Yes Alcohol type: beer Alcohol Intake Frequency Comment: 2 beers a day Hx Substance Use: No Preferred Language: Albanian Communication Ability: Effective Rubber Trimmer Required: No Beliefs That Will Affect Care: None marital status: Single Current Living Situation: Alone Current Living Situation Comment: has care givers on Tues and thurs How many Children do You have: 0 Feels Safe at Home: Yes Assistive Devices: Oxygen - Continuous and Walker Review of Systems A total of 10 systems reviewed and were otherwise negative Physical Exam Vital Signs Vital Signs - 24 hr 06/16/20 01:40 06/16/20 01:55 06/16/20 02:30 Temperature 36.8 C Temperature Source Oral Pulse Rate 70 66 Pulse Rate [Right Apical] 71 Pulse Rate from SpO2 Sensor 61 Pulse Rhythm Regular Pulse Strength Normal Respiratory Rate 26 H 18 24 Respiratory Effort / Characteristics Non-Labored Spontaneous Respiratory Depth Normal Respiratory Pattern Regular Blood Pressure 144/78 H Blood Pressure [Right Arm] 144/77 H Blood Pressure Mean 100 Blood Pressure Mean [Right Arm] 99 Blood Pressure Position Sitting Blood Pressure Position [Right Arm] Sitting Pulse Oximetry 97 96 100 Oxygen Delivery Method Nasal Cannula Nasal Cannula Oxygen Flow Rate 4 3 Sepsis Recent Fever Within 48 Hours No Sepsis New/Unexplained Change in Mental Status No Sepsis Action Taken by Nursing No Action Required 06/16/20 03:03 06/16/20 03:15 06/16/20 03:30 Temperature Temperature Source Pulse Rate Pulse Rate [Right Apical] Pulse Rate from SpO2 Sensor 64 67 Pulse Rhythm Pulse Strength Respiratory Rate Respiratory Effort / Characteristics Respiratory Depth Respiratory Pattern Blood Pressure 134/79 140/65 130/69 Blood Pressure [Right Arm] Blood Pressure Mean 97 90 89 Blood Pressure Mean [Right Arm] Blood Pressure Position Blood Pressure Position [Right Arm] Pulse Oximetry 100 99 Oxygen Delivery Method Nasal Cannula Nasal Cannula Oxygen Flow Rate 4 4 Sepsis Recent Fever Within 48 Hours Sepsis New/Unexplained Change in Mental Status Sepsis Action Taken by Nursing 06/16/20 03:45 06/16/20 04:00 Temperature Temperature Source Pulse Rate 66 66 Pulse Rate [Right Apical] Pulse Rate from SpO2 Sensor 66 66 Pulse Rhythm Pulse Strength Respiratory Rate 21 21 Respiratory Effort / Characteristics Respiratory Depth Respiratory Pattern Blood Pressure 126/68 136/73 Blood Pressure [Right Arm] Blood Pressure Mean 87 94 Blood Pressure Mean [Right Arm] Blood Pressure Position Blood Pressure Position [Right Arm] Pulse Oximetry 99 96 Oxygen Delivery Method Nasal Cannula Nasal Cannula Oxygen Flow Rate 4 4 Sepsis Recent Fever Within 48 Hours Sepsis New/Unexplained Change in Mental Status Sepsis Action Taken by Nursing VITALS: Vitals are noted on the nurse's note and reviewed by myself. Vital signs stable. GENERAL: White male, in no acute distress, nondiaphoretic, well-developed well- nourished. SKIN: The skin was without rashes, erythema, edema, or bruising. There is no tenting of the skin. Capillary reflex less than 2 seconds. HEAD: Normocephalic atraumatic. EARS: External auditory canals clear EYES: Pupils equal round and reactive to light and accommodation. Conjunctivae without injection, sclerae without icterus. Extraocular movements intact. NOSE: Patent, turbinates without inflammation or discharge. MOUTH: Mucous membranes moist. Pharynx without erythema or exudate. Uvula midline. Airway patent. Tongue does not deviate. NECK: Supple without nuchal rigidity. No lymphadenopathy. No thyromegaly. Cervical spine is nontender. No JVD. HEART: Regular rate and rhythm LUNGS: Diffuse inspiratory and end expiratory wheezes. Rales right lower bases, no retractions or accessory muscle use. ABDOMEN: Positive bowel sounds x 4. Normal tympanic percussion. Soft, nonte nder, without masses or organomegaly. Monk sign negative. No guarding or rebound tenderness. No CVA tenderness MUSCULOSKELETAL: No muscle atrophy, erythema, or edema noted. NEURO: Patient was alert and oriented to person place and time. Normal sensation to light and sharp touch. No focal neurological deficits. Course Administered Medications Discontinued Medications Albuterol (Albut/Ipratrop 3mg/0.5mg Neb 3 Ml Vial) 3 ml INH NOW STA Stop: 06/16/20 01:46 Last Admin: 06/16/20 01:53 Dose: 3 ml Documented by: [id number] Dexamethasone Sodium Phosphate (DexamethasonePf 10 Mg/Ml Vial) 10 mg IV NOW ONE Stop: 06/16/20 01:46 Last Admin: 06/16/20 02:05 Dose: 10 mg Documented by: [id number] Furosemide (Furosemide 40 Mg/4 Ml Vial) 20 mg IV NOW STA Stop: 06/16/20 03:34 Last Admin: 06/16/20 03:42 Dose: 20 mg Documented by: [id number] Ioversol (Optiray 350 500ml) 125 ml IV ONCE ONE Stop: 06/16/20 03:07 Last Admin: 06/16/20 03:07 Dose: 107 ml Documented by: [id number] Medical Decision Making Medical Records Attestation: I reviewed the patient's medical records. Home Medications Current Medication List: was personally reviewed by me Laboratory Data Attestation: I reviewed the patient's lab results. Result diagrams: 06/16/20 Unknown 06/16/20 Unknown Lab Results 06/16/20 06/16/20 06/16/20 Range/Units 04:17 Unknown Unknown WBC 11.16 H (4.8-10.8) K/uL RBC 3.27 L (4.7-6.1) M/uL Hgb 10.8 L (14.0-18.0) g/dL Hct 32.8 L (42-52) % MCV 100.3 H (80-100) fL MCH 33.0 (25-34) pg MCHC 32.9 (32-36) g/dL RDW Std Deviation 47.1 H (36.4-46.3) fL RDW Coeff of Daquan 12.8 (11.5-14.5) % Plt Count 206 (130-400) K/uL MPV 11.0 H (7.4-10.4) fL Immature Gran % (Auto) 0.3 % Neut % (Auto) 73.4 % Lymph % (Auto) 10.1 % Redwood % (Auto) 13.1 % Eos % (Auto) 3.0 % Baso % (Auto) 0.1 % Neut # (Auto) 8.20 H (1.4-6.5) K/uL Lymph # (Auto) 1.13 L (1.2-3.4) K/uL Redwood # (Auto) 1.46 H (0.11-0.59) K/uL Eos # (Auto) 0.33 (0-0.5) K/uL Baso # (Auto) 0.01 (0-0.2) K/uL Immature Gran # (Auto) 0.03 H (0.00-0.02) K/uL PT 10.3 (9.0-12.0) Seconds INR 1.0 (0.9-1.1) APTT 25.9 (21.0-31.0) Seconds PTT Ratio 1.0 Sodium (136-145) mmol/L Potassium (3.5-5.1) mmol/L Chloride (98-107) mmol/L Carbon Dioxide (21-32) mmol/L Anion Gap (3-11) BUN (7-18) mg/dl Creatinine (0.6-1.4) mg/dl Est Cr Clr Drug Dosing ml/min Est GFR ( Amer) Est GFR (Non-Af Amer) BUN/Creatinine Ratio (10-20) Glucose (70-99) mg/dl Calcium (8.5-10.1) mg/dl Magnesium (1.8-2.4) mg/dl Total Bilirubin (0.2-1) mg/dl AST (15-37) U/L ALT (12-78) U/L Alkaline Phosphatase (45-117) U/L Troponin I (0-0.045) ng/ml NT-Pro-B Natriuret Pep (0-900) pg/ml Total Protein (6.4-8.2) gm/dl Albumin (3.4-5.0) gm/dl Globulin (2.5-4.0) gm/dl Albumin/Globulin Ratio (0.9-2) Urine Color Yellow Urine Appearance Clear (Clear) Urine pH 6.5 (4.5-7.5) Ur Specific Lee 1.032 H (1.000-1.030) Urine Protein Negative (Negative) Urine Glucose (UA) Negative (Negative) Urine Ketones Negative (Negative) Urine Blood 1+ H (Negative) Urine Nitrite Negative (Negative) Urine Bilirubin Negative (Negative) Urine Urobilinogen Negative (Negative) Ur Leukocyte Esterase Negative (Negative) Urine WBC (Auto) 0 (0-5) /hpf Urine RBC (Auto) 5-10 H (0-4) /hpf U Hyaline Cast (Auto) 1-5 (0-5) /lpf U Epithel Cells (Auto) 0-5 (0-5) /lpf Urine Bacteria (Auto) Negative (Negative) COVID-19 Eval Order SARS-CoV-2 (PCR) (Negative) Influenza Type A (PCR) (Neg) Influenza Type B (PCR) (Neg) RSV (RT-PCR) (Neg) 06/16/20 06/16/20 06/16/20 Range/Units Unknown Unknown Unknown WBC (4.8-10.8) K/uL RBC (4.7-6.1) M/uL Hgb (14.0-18.0) g/dL Hct (42-52) % MCV (80-100) fL MCH (25-34) pg MCHC (32-36) g/dL RDW Std Deviation (36.4-46.3) fL RDW Coeff of Daquan (11.5-14.5) % Plt Count (130-400) K/uL MPV (7.4-10.4) fL Immature Gran % (Auto) % Neut % (Auto) % Lymph % (Auto) % Redwood % (Auto) % Eos % (Auto) % Baso % (Auto) % Neut # (Auto) (1.4-6.5) K/uL Lymph # (Auto) (1.2-3.4) K/uL Redwood # (Auto) (0.11-0.59) K/uL Eos # (Auto) (0-0.5) K/uL Baso # (Auto) (0-0.2) K/uL Immature Gran # (Auto) (0.00-0.02) K/uL PT (9.0-12.0) Seconds INR (0.9-1.1) APTT (21.0-31.0) Seconds PTT Ratio Sodium 141 (136-145) mmol/L Potassium 4.1 (3.5-5.1) mmol/L Chloride 106 (98-107) mmol/L Carbon Dioxide 33 H (21-32) mmol/L Anion Gap 2.0 L (3-11) BUN 21 H (7-18) mg/dl Creatinine 0.98 (0.6-1.4) mg/dl Est Cr Clr Drug Dosing 55.2 ml/min Est GFR ( Amer) 91.4 Est GFR (Non-Af Amer) 78.9 BUN/Creatinine Ratio 21.3 H (10-20) Glucose 155 H (70-99) mg/dl Calcium 8.6 (8.5-10.1) mg/dl Magnesium 1.8 (1.8-2.4) mg/dl Total Bilirubin 0.4 (0.2-1) mg/dl AST 31 (15-37) U/L ALT 39 (12-78) U/L Alkaline Phosphatase 149 H (45-117) U/L Troponin I < 0.015 (0-0.045) ng/ml NT-Pro-B Natriuret Pep 1642 H (0-900) pg/ml Total Protein 6.5 (6.4-8.2) gm/dl Albumin 2.6 L (3.4-5.0) gm/dl Globulin 3.9 (2.5-4.0) gm/dl Albumin/Globulin Ratio 0.7 L (0.9-2) Urine Color Urine Appearance (Clear) Urine pH (4.5-7.5) Ur Specific Lee (1.000-1.030) Urine Protein (Negative) Urine Glucose (UA) (Negative) Urine Ketones (Negative) Urine Blood (Negative) Urine Nitrite (Negative) Urine Bilirubin (Negative) Urine Urobilinogen (Negative) Ur Leukocyte Esterase (Negative) Urine WBC (Auto) (0-5) /hpf Urine RBC (Auto) (0-4) /hpf U Hyaline Cast (Auto) (0-5) /lpf U Epithel Cells (Auto) (0-5) /lpf Urine Bacteria (Auto) (Negative) COVID-19 Eval Order CovFluRsv at [facility] SARS-CoV-2 (PCR) NEGATIVE (Negative) Influenza Type A (PCR) Negative (Neg) Influenza Type B (PCR) Negative (Neg) RSV (RT-PCR) Negative (Neg) Imaging Data Attestation: I personally reviewed and interpreted this imaging study as follows: MDM Narrative Prior records/ancillary studies reviewed. Triage Nursing notes reviewed. Additional history obtained from nursing The patient's history was concerning for respiratory difficulties. Differential diagnosis: Etiologies such as infections, reactive airway disease, pneumonia, pneumothorax, COPD, CHF, cardiac ischemia, pulmonary embolism, musculoskeletal, gastrointestinal, as well as others were entertained. Physical examination: As above. ER treatment provided: An order was placed for continuous cardiac monitoring. The monitor shows a rate of 60-1 10 with a sinus rhythm. Nebulizer, Decadron, Zosyn On reassessment the patient felt better. Diagnostic interpretation by me: The electrocardiogram was ordered for dyspnea. EKG: Poor baseline, normal sinus, normal intervals, no acute ST-T wave changes. Rate of 68. Impression normal sinus rhythm interpreted by myself I think arrhythmia is unlikely. EKG shows normal sinus rhythm with no interval abnormalities such as QT prolongation or WPW. There are no findings to suggest Brugada syndrome. Cardiac monitoring in the emergency department reveals no tachycardic or bradycardic dysrhythmia. Hypertrophic cardiomyopathy was considered but there are no clear historical elements pointing toward this. EKG is not suggestive. The QRS voltage is not extremely large and there are no s uggestive Q waves. The labs revealed elevated BNP. Negative troponin Imaging studies: Chest x-ray right pleural effusion with pulmonary congestion concerning for aspiration pneumonia per my interpretation CTA CHEST: Comparison to May 24, 2020. The pulmonary arterial tree is well-opacified with contrast. No pulmonary emboli are identified. The thoracic aorta is nondilated. There is no aneurysm or dissection. The heart is upper normal in size. No pericardial effusion is seen. No mediasti nal or axillary lymphadenopathy or mass is identified. There are moderate to severe emphysematous changes throughout both lungs. There is an acute appearing airspace infiltrate in the right upper lobe consistent with pneumonia. There is a right pleural effusion layering 4 cm posteriorly. No pneumothorax is seen. Mild degenerative changes in the lower thoracic spine. There are chronic appearing compression fractures at T12 and T10. No acute fracture is seen. Radiologist: Eugene Martin MD Consultation: Dr. Hamilton from medicine was consulted and will evaluate the patient for possible admission. This appears to be consistent with COPD exacerbation and aspiration pneumonia. Patient was started on antibiotics. Medicine was consulted. He will be evaluated for admission by the evaluation outlined above emergent etiologies such as cardiac ischemia, pulmonary embolism, reactive airway disease, pneumothorax, musculoskeletal, as well as others were deemed relatively unlikely. The pt informed about the findings as listed above. All questions were answered and pleased with the treatment. condition. The chart was completed utilizing [employer]OL Speech voice recognition software. Grammatical errors, random word insertions, pronoun errors, and incomplete sentences are an occassional consequence of this system due to software limitations, ambient noise, and hardware issues. Any formal questions or concerns about the content, text, or information contained within the body of t his dictation should be directly addressed to the physician assistant nurse manager for clarification. Impression & Plan Acute exacerbation of chronic obstructive pulmonary disease, Pneumonia Discharge Plan Visit Data Chief Complaint: Shortness of Breath/Dyspnea Stated Complaint: LOW PULSE OX READINGS, SHORT OF BREATH ED Provider: Tammy Chinchilla ED Midlevel Provider: Tami Peralta Discharge Problem: Acute exacerbation of chronic obstructive pulmonary disease, Pneumonia Patient Disposition: Admitted As Inpatient Condition: Fair Forms Stand Alone Forms: My [facility] Prescriptions Prescriptions: No Action verapamil 120 mg Tablet Extended Release 120 mg PO DAILY RF: 0 levothyroxine 50 mcg Tablet 50 mcg PO DAILY RF: 0 pantoprazole 40 mg Tablet,Delayed Release (Dr/Ec) 40 mg PO DAILY RF: 0 Trelegy Ellipta 100-62.5-25 mcg Blister With Device 1 inh INHALATION DAILY RF: 0 sertraline 100 mg Tablet 100 mg PO DAILY RF: 0 montelukast 10 mg Tablet 10 mg PO PM RF: 0 guaifenesin 200 mg tablet 200 mg PO TID PRN (Reason: cough) Qty: 15 RF: 0 atorvastatin 40 mg tablet 40 mg PO QAM RF: 0 docusate sodium [Colace] 100 mg Capsule 100 mg PO DAILY RF: 0 gabapentin 300 mg capsule 300 mg PO HS RF: 0 metformin 1,000 mg Tablet Extended Release 24hr 1,000 mg PO DAILY RF: 0 ipratropium bromide 0.02 % solution 0.5 mg Inhalation TID Qty: 0 RF: 0 hydroxyzine HCl 50 mg Tablet 50 mg PO Q6 PRN (Reason: anxiety/agitation) RF: 0 acetaminophen 325 mg Tablet 650 mg PO Q6 MDD 3g/24hr PRN (Reason: pain scale 1-4) RF: 0 Combivent Respimat 20-100 mcg/actuation mist 1 puff INHALATION QID RF: 0 albuterol sulfate 2.5 mg /3 mL (0.083 %) solution for nebulization 2.5 mg INHALATION UD PRN (Reason: Shortness Of Breath Or Wheezing) RF: 0 Referrals Referrals: PCP,NO [Physician] -
[2020-06-16 02:10] LABS: Basophils # (auto) 0.01 K/uL (0-0.2); Basophils % (auto) 0.1 %; Eosinophils # (auto) 0.33 K/uL (0-0.5); Hematocrit (blood only) 32.8 % (42-52); Hemoglobin 10.8 g/dL (14.0-18.0); Immature Granulocytes # (auto) 0.03 K/uL (0.00-0.02); Immature Granulocytes % (auto) 0.3 %; Lymphocytes # (auto) 1.13 K/uL (1.2-3.4); Lymphocytes % (auto) 10.1 %; Mean Corpuscular Hgb Conc 32.9 g/dL (32-36); Mean Corpuscular Volume 100.3 fL (80-100); Monocytes # (auto) 1.46 K/uL (0.11-0.59); Monocytes % (auto) 13.1 %; Neutrophils % (auto) 73.4 %; Platelet Count 206 K/uL (130-400); RDW Coefficient of Variation 12.8 % (11.5-14.5); RDW Standard Deviation 47.1 fL (36.4-46.3); Red Blood Count 3.27 M/uL (4.7-6.1); White Blood Count 11.16 K/uL (4.8-10.8)
[2020-06-16 02:20] LABS: Partial Thromboplastin Time 25.9 Seconds (21.0-31.0); Prothrombin Time 10.3 Seconds (9.0-12.0)
[2020-06-16 02:28] LABS: Alanine Aminotransferase 39 U/L (12-78); Albumin Level 2.6 gm/dl (3.4-5.0); Aspartate Aminotransferase 31 U/L (15-37); BUN Creatinine Ratio 21.3 (10-20); Bilirubin,Total 0.4 mg/dl (0.2-1); Blood Urea Nitrogen 21 mg/dl (7-18); Calcium 8.6 mg/dl (8.5-10.1); Carbon Dioxide 33 mmol/L (21-32); Chloride 106 mmol/L (98-107); Creatinine Clr Calc Pharmacy 55.2 ml/min; Est GFR (African American) 91.4; Est GFR (Non-African American) 78.9; Glucose 155 mg/dl (70-99); Potassium 4.1 mmol/L (3.5-5.1); Sodium 141 mmol/L (136-145)
[2020-06-16 02:31] LABS: Albumin Globulin Ratio 0.7 (0.9-2); Alkaline Phosphatase 149 U/L (45-117); Globulin 3.9 gm/dl (2.5-4.0); NT Pro B Type Natriuretic Pept 1642 pg/ml (0-900); Total Protein 6.5 gm/dl (6.4-8.2); Troponin I < 0.015 ng/ml (0-0.045)
[2020-06-16 03:06] LABS: Influenza A virus by PCR Negative (Neg); Influenza B virus by PCR Negative (Neg); RSV by PCR Negative (Neg); SARS CoV2 RNA(COVID-19) InHosp NEGATIVE (Negative)
[2020-06-16] MEDS ORDERED: OPTIRAY 350 500ml IV ONE (03:06)
[2020-06-16] MEDS ORDERED: FUROSEMIDE 40 MG/4 ML VIAL IV STA (03:33)
[2020-06-16 03:42] LABS: Magnesium 1.8 mg/dl (1.8-2.4)
--- NOTE | 2020-06-16 04:12 | History & Physical Report ---
Date of Service June 16, 2020 Assessment & Plan (1) Respiratory failure, acute and chronic: Multifactorial : COPD exacerbation secondary to HCAP, possible sepsis Asymmetric pulmonary congestion given elevated BNP hypertension, BP stable PAF, off Coumadin since 2019 secondary to GI bleed and patient compliant issues, patient NSR hx PSVT, requiring ER visit 2 weeks ago DM2, on oral medications, well controlled as of recent hemoglobin A1c of 5.1 last April 2020 history of TIA as per records chronic anemia, hemoglobin at baseline Past alcohol abuse Ongoing tobacco abuse Medical telemetry Supplemental O2 Baseline ABG Cultures, lactic acid, Zosyn Nebs RTC, prednisone course for COPD exacerbation Lasix 1 dose Pulmonary consult if without improvement Basal insulin, ISS BG goal 110-140, carb count coverage Nicotine patch as needed DVT prophylaxis. Heparin subcu Full code Text document was generated using [employer] voice recognition software. It may contain grammatical or spelling errors. Kindly contact undersigned for clarification of any documentation item in question. History of Present Illness Chief Complaint: Worsening cough, shortness of breath Primary Care Provider: Dr. Rizzo History obtained from patient and records. Medical history significant for chronic respiratory failure secondary to COPD on home O2, hypertension, PAF off anticoagulation secondary to GI bleed/patient compliance issues, hx PSVT, History TIA as per records, DM2 on oral medications, chronic anemia (baseline hemoglobin of 11), hx urolithiasis, ongoing tobacco/alcohol abuse Recent confinement 3 weeks ago for COPD exacerbation. Patient discharged to [facility] for rehab. Recent ER visit 2 weeks ago for SVT status post conversion after adenosine administration. Last night patient noted worsening cough symptoms productive of junky yellow sputum along with shortness of breath. Substernal pain with coughing. Some nausea symptoms without emesis. Patient denies aspiration. No fever, no chills. Patient denies weight gain. O2 sats 80s at rehab facility. Oxygen requirement up to 6 L per nasal cannula as per patient. Patient brought to the ER for evaluation. Decadron and neb treatment given for COPD exacerbation. Medical History as above Surgical History : Eye surgery, urologic procedures, hip replacement Family History : Heart disease, diabetes Personal/Social history : One pack daily, alcohol abuse as per records, disabled Allergies Allergy/AdvReac Type Severity Reaction Status Date / Time turkey Allergy Unknown Verified 06/16/20 02:15 Home Medications Medication Instructions Recorded Confirmed Type atorvastatin 40 mg PO QAM 01/28/18 06/16/20 History docusate sodium [Colace] 100 mg PO DAILY 01/28/18 06/16/20 History gabapentin 300 mg PO HS 01/28/18 06/16/20 History metformin 1,000 mg PO DAILY 04/23/18 06/16/20 History ipratropium bromide 0.5 mg INHALATION TID #0 ml 04/30/18 06/16/20 Rx Trelegy Ellipta 1 inh INHALATION DAILY 02/13/19 06/16/20 History levothyroxine 50 mcg PO DAILY 02/13/19 06/16/20 History montelukast 10 mg PO PM 02/13/19 06/16/20 History pantoprazole 40 mg PO DAILY 02/13/19 06/16/20 History sertraline 100 mg PO DAILY 02/13/19 06/16/20 History verapamil 120 mg PO DAILY 02/13/19 06/16/20 History acetaminophen 650 mg PO Q6 PRN MDD 3g/24hr 02/22/19 06/16/20 History hydroxyzine HCl 50 mg PO Q6 PRN 02/22/19 06/16/20 History guaifenesin 200 mg PO TID PRN #15 tab 04/22/19 06/16/20 Rx albuterol sulfate 2.5 mg INHALATION UD PRN 06/16/20 06/16/20 History ipratropium-albuterol [Combivent 1 puff INHALATION QID 06/16/20 06/16/20 History Respimat] Past Med/Surg History Medical History (Updated 06/16/20 @ 04:30 by Dell Hamilton MD) Alcohol use BPH (benign prostatic hyperplasia) Chronic respiratory failure with hypoxia COPD (chronic obstructive pulmonary disease) Depression Diabetes mellitus, type II Dyslipidemia Esophageal stenosis "s/p dilation June 2016" GERD (gastroesophageal reflux disease) HTN (hypertension) Hypothyroidism Leg edema Mood disorder Paroxysmal atrial fibrillation Superficial thrombophlebitis "2009" TIA (transient ischemic attack) "1982" Surgical History History of cataract surgery S/P bronchoscopy Family History Other Diabetes Social History Smoking Status: Former smoker Tobacco Type: Cigarettes Cigarettes Per Day: 20; Second Hand Exposure: No; Hx Alcohol Use: Yes Alcohol type: beer Alcohol Intake Frequency Comment: 2 beers a day Hx Substance Use: No Preferred Language: Yakut Communication Ability: Effective Glass Calibrator Required: No Beliefs That Will Affect Care: None marital status: Single Current Living Situation: Alone Current Living Situation Comment: has care givers on Tues and thurs How many Children do You have: 0 Feels Safe at Home: Yes Assistive Devices: Oxygen - Continuous and Walker Review of Systems Review of Systems: As per HPI, all 10 systems reviewed, all other ROS negative Physical Exam Physical Exam: GENERAL: Comfortable, pleasant, underweight, no respiratory distress SKIN: Pallor, warm HEENT: Sparse hair, bespectacled, pale palpebral conjunctivae, no ptosis, moist buccal mucosa, nasal cannula in place NECK : Supple, no tenderness CHEST : Decreased breath sounds, expiratory wheezes, no tenderness HEART : RRR, no obvious murmurs ABDOMEN: No distention, nontender EXTREMITIES : No LE swelling/tenderness, no other conspicuous deformities noted NEUROLOGIC : Coherent, no facial asymmetry, no other gross focality Results & Data Results & Data ([facility]) Vital Signs (Past 12 Hours) Vital Signs Temp Pulse Pulse Resp BP BP Pulse Ox 06/16/20 04:00 66 21 136/73 96 06/16/20 03:45 66 21 126/68 99 06/16/20 03:30 130/69 99 06/16/20 03:15 140/65 100 06/16/20 03:03 134/79 06/16/20 02:30 66 24 144/78 H 100 06/16/20 01:55 71 18 96 06/16/20 01:40 36.8 C 70 26 H 144/77 H 97 Laboratory Results Laboratory Results WBC 11.16 K/uL (4.8-10.8) H 06/16/20 Unknown RBC 3.27 M/uL (4.7-6.1) L 06/16/20 Unknown Hgb 10.8 g/dL (14.0-18.0) L 06/16/20 Unknown Hct 32.8 % (42-52) L 06/16/20 Unknown MCV 100.3 fL (80-100) H 06/16/20 Unknown MCH 33.0 pg (25-34) 06/16/20 Unknown MCHC 32.9 g/dL (32-36) 06/16/20 Unknown RDW Std Deviation 47.1 fL (36.4-46.3) H 06/16/20 Unknown RDW Coeff of Daquan 12.8 % (11.5-14.5) 06/16/20 Unknown Plt Count 206 K/uL (130-400) 06/16/20 Unknown MPV 11.0 fL (7.4-10.4) H 06/16/20 Unknown Immature Gran % (Auto) 0.3 % 06/16/20 Unknown Neut % (Auto) 73.4 % 06/16/20 Unknown Lymph % (Auto) 10.1 % 06/16/20 Unknown Dickson % (Auto) 13.1 % 06/16/20 Unknown Eos % (Auto) 3.0 % 06/16/20 Unknown Baso % (Auto) 0.1 % 06/16/20 Unknown Neut # (Auto) 8.20 K/uL (1.4-6.5) H 06/16/20 Unknown Lymph # (Auto) 1.13 K/uL (1.2-3.4) L 06/16/20 Unknown Dickson # (Auto) 1.46 K/uL (0.11-0.59) H 06/16/20 Unknown Eos # (Auto) 0.33 K/uL (0-0.5) 06/16/20 Unknown Baso # (Auto) 0.01 K/uL (0-0.2) 06/16/20 Unknown Immature Gran # (Auto) 0.03 K/uL (0.00-0.02) H 06/16/20 Unknown PT 10.3 Seconds (9.0-12.0) 06/16/20 Unknown INR 1.0 (0.9-1.1) 06/16/20 Unknown APTT 25.9 Seconds (21.0-31.0) 06/16/20 Unknown PTT Ratio 1.0 06/16/20 Unknown Sodium 141 mmol/L (136-145) 06/16/20 Unknown Potassium 4.1 mmol/L (3.5-5.1) 06/16/20 Unknown Chloride 106 mmol/L (98-107) 06/16/20 Unknown Carbon Dioxide 33 mmol/L (21-32) H 06/16/20 Unknown Anion Gap 2.0 (3-11) L 06/16/20 Unknown BUN 21 mg/dl (7-18) H 06/16/20 Unknown Creatinine 0.98 mg/dl (0.6-1.4) 06/16/20 Unknown Est Cr Clr Drug Dosing 55.2 ml/min 06/16/20 Unknown Est GFR ( Amer) 91.4 06/16/20 Unknown Est GFR (Non-Af Amer) 78.9 06/16/20 Unknown BUN/Creatinine Ratio 21.3 (10-20) H 06/16/20 Unknown Glucose 155 mg/dl (70-99) H 06/16/20 Unknown Calcium 8.6 mg/dl (8.5-10.1) 06/16/20 Unknown Magnesium 1.8 mg/dl (1.8-2.4) 06/16/20 Unknown Total Bilirubin 0.4 mg/dl (0.2-1) 06/16/20 Unknown AST 31 U/L (15-37) 06/16/20 Unknown ALT 39 U/L (12-78) 06/16/20 Unknown Alkaline Phosphatase 149 U/L (45-117) H 06/16/20 Unknown Troponin I < 0.015 ng/ml (0-0.045) 06/16/20 Unknown NT-Pro-B Natriuret Pep 1642 pg/ml (0-900) H 06/16/20 Unknown Total Protein 6.5 gm/dl (6.4-8.2) 06/16/20 Unknown Albumin 2.6 gm/dl (3.4-5.0) L 06/16/20 Unknown Globulin 3.9 gm/dl (2.5-4.0) 06/16/20 Unknown Albumin/Globulin Ratio 0.7 (0.9-2) L 06/16/20 Unknown COVID-19 Eval Order CovFluRsv at [facility] 06/16/20 Unknown SARS-CoV-2 (PCR) NEGATIVE (Negative) 06/16/20 Unknown Influenza Type A (PCR) Negative (Neg) 06/16/20 Unknown Influenza Type B (PCR) Negative (Neg) 06/16/20 Unknown RSV (RT-PCR) Negative (Neg) 06/16/20 Unknown Diagnostic Findings Chest x-ray as per my interpretation: asymmetric pulmonary congestion EKG as per my interpretation : Rate 70, NSR, normal axis, short HI, delta wave, incomplete RBBB, no ischemia CTA CHEST initial read: Comparison to May 24, 2020. The pulmonary arterial tree is well-opacified with contrast. No pulmonary emboli are identified. The thoracic aorta is nondilated. There is no aneurysm or dissection. The heart is upper normal in size. No pericardial effusion is seen. No mediastinal or axillary lymphadenopathy or mass is identified. There are moderate to severe emphysematous changes throughout both lungs. There is an acute appearing airspace infiltrate in the right upper lobe consistent with pneumonia. There is a right pleural effusion layering 4 cm posteriorly. No pneumothorax is seen. Mild degenerative changes in the lower thoracic spine. There are chronic appearing compression fractures at T12 and T10. No acute fracture is seen.
[2020-06-16] MEDS ORDERED: PIPERACILLIN/TAZOBACTAM 4.5 GM/120 ML BAG IV ONE (04:15)
[2020-06-16 04:25] LABS: Appearance Urine Clear (Clear); Bacteria Urine Automated Negative (Negative); Bilirubin Urine Negative (Negative); Blood Urine 1+ (Negative); Color Urine Yellow; Epithelial Cell Urine Auto 0-5 /lpf (0-5); Glucose Urine UA Negative (Negative); Ketones Urine Negative (Negative); Leukocyte Esterase Urine Negative (Negative); Nitrite Urine Negative (Negative); Protein Urine Negative (Negative); Specific Gravity Urine 1.032 (1.000-1.030); Urobilinogen Urine Negative (Negative); WBC Urine Automated 0 /hpf (0-5); pH Urine 6.5 (4.5-7.5)
[2020-06-16] MEDS ORDERED: ACETAMINOPHEN 325 MG TAB PO PRN (04:58)
[2020-06-16] MEDS ORDERED: CARBOHYDRATES FOR HYPOGLYCEMIA PO PRN (04:58)
[2020-06-16] MEDS ORDERED: oxyCODONE HCL IR 5 MG TAB (IMMEDIATE RELEASE) PO PRN (04:58)
[2020-06-16] MEDS ORDERED: DEXTROSE 50% 50 ML SYRINGE IV PRN (04:58)
[2020-06-16] MEDS ORDERED: PROMETHAZINE HCL 6.25 MG in SODIUM CHLORIDE 0.9% 50 ML IV PRN (04:58)
[2020-06-16] MEDS ORDERED: GLUCOSE 40% GEL 15 GM TUBE PO PRN (04:58)
[2020-06-16] MEDS ORDERED: GLUCAGON FOR INJ 1 MG VIAL SQ PRN (04:58)
[2020-06-16] MEDS ORDERED: PIPERACILL/TAZOBAC CONSULT ACTIVE PRN (04:58)
[2020-06-16] MEDS ORDERED: GLUCOSE 10 TABS/TUBE PO PRN (04:58)
[2020-06-16] MEDS ORDERED: INSULIN GLARGINE SOLOSTAR 100 UNITS/ML 3 ML PEN SC ONE (05:15)
[2020-06-16] MEDS: INSULIN ASPART 100 UNITS/ML 3 ML PEN SC SCH ×5 (05:31→20:28)
[2020-06-16] MEDS: LEVOTHYROXINE SODIUM 50 MCG TABLET PO SCH (05:37)
[2020-06-16] MEDS: HEPARIN SOD 5,000 UNIT/0.5 ML VIAL SQ SCH ×2 (05:38→14:05)
[2020-06-16] MEDS: MAGNESIUM SULFATE / D5W 1 GM/100 ML BAG IV SCH ×2 (05:38→08:07)
[2020-06-16 05:50] LABS: Base Excess ABG 2.9 mEq/L (-9-1.8); HCO3 ABG 29 mmol/L (19-24); Oxygen Saturation ABG 96.4 % (90-95); PCO2 ABG 54 mmHg (35-46); PO2 ABG 88 mmHg (80-95); pH ABG 7.35 (7.35-7.45)
[2020-06-16 06:05] LABS: Allen Test Pos (Pos)
[2020-06-16] MEDS ORDERED: PIPERACILLIN/TAZOBACTAM 4.5 GM in DEXTROSE 5% 100 ML IV ONE (06:45)
--- NOTE | 2020-06-16 07:22 | CT Scan Report ---
CT ANGIOGRAM OF THE CHEST CLINICAL HISTORY: Right sided chest pain. Cough. Shortness of breath. COMPARISON STUDY: 05/24/2020 TECHNIQUE: Following the IV administration of 107 mL of Optiray, CT angiogram of the thorax was perfo rmed from the thoracic inlet to the lung bases utilizing the pulmonary embolus protocol. Images are r eviewed in the axial, sagittal, and coronal planes. IV contrast was administered without complication . MIP imaging was performed. A dose lowering technique was utilized adhering to the principles of AL DEMI. CT DOSE: 329.30 mGy.cm FINDINGS: There are stable low-density left adrenal gland thickening. There is suspected right-sided nephrolith iasis. There are borderline enlarged mediastinal and hilar lymph nodes, likely reactive. There was no evidence of thoracic aortic dilatation. There were no pulmonary artery filling defects to indicate acute pulmonary embolism. There are bilateral pleural effusions right larger than left There is severe pulmonary emphysema. There are right upper lobe airspace opacities consistent with a pneumonia. These were not present on the prior study. There is an old T12 vertebral body compression fracture, and subacute T10 vertebral body compression fracture. IMPRESSION: 1. No evidence of acute pulmonary embolism 2. Interval development of right upper lobe pulmonary airspace opacities consistent with a pneumonia. 3. Bilateral pleural effusions right larger than left 4. Borderline enlarged mediastinal and hilar lymph nodes, statistically reactive. ACT 112: Negative or not required by law. Electronically signed by: Vladimir Parmar M.D. 06/16/2020 7:20 AM
[2020-06-16] MEDS: ALBUT/IPRATROP 3MG/0.5MG NEB 3 ML VIAL NEB SCH ×4 (07:26→19:24)
--- NOTE | 2020-06-16 07:32 | XRay Report ---
SINGLE VIEW CHEST CLINICAL HISTORY: Dyspnea. COPD FINDINGS: An AP, portable, upright chest radiograph is compared to study dated 06/07/2020 and correlat ed with chest CT dated 05/24/2020. The cardiomediastinal silhouette is unremarkable noting atheroscler otic calcification of the thoracic aorta. Emphysema and chronic interstitial thickening is similar to previous. Patchy airspace consolidation is seen throughout the right lung, most confluent in the rig ht midlung. The left lung appears clear. There is a small right pleural effusion. No pneumothorax is seen. The skeletal structures are osteopenic. The bony thorax is grossly intact. IMPRESSION: 1. Emphysema. 2. Airspace consolidation is seen throughout the right lung, typical in appearance for pneumonia/aspi ration pneumonitis. Clinical correlation will be required and radiographic follow-up to resolution is recommended. 3. Small right pleural effusion. ACT 112: Negative or not required by law. Electronically signed by: Fahad Hammond M.D. 06/16/2020 7:31 AM
[2020-06-16] MEDS: SERTRALINE HCL 100 MG TABLET PO SCH (08:08)
[2020-06-16] MEDS: DOCUSATE SODIUM 100 MG CAP PO SCH (08:08)
[2020-06-16] MEDS: VERAPAMIL HCL 120 MG TABCR PO SCH (08:08)
[2020-06-16] MEDS: ATORVASTATIN 40 MG TAB PO SCH (08:08)
[2020-06-16] MEDS: PANTOprazole 40 MG TAB PO SCH (08:08)
--- NOTE | 2020-06-16 08:08 | Electrocardiogram Report ---
Test Reason : Blood Pressure : / mmHG Vent. Rate : 068 BPM Atrial Rate : 068 BPM P-R Int : 094 ms QRS Dur : 078 ms QT Int : 406 ms P-R-T Axes : 029 068 061 degrees QTc Int : 431 ms Sinus rhythm with short VA Incomplete right bundle branch block Otherwise normal ECG When compared with ECG of 07-JUN-2020 03:48, No significant change was found Confirmed by Maximilian Campos ([id number]) on 06/16/2020 8:08:06 AM Referred By: [facility] Confirmed By:Maximilian Capmos
[2020-06-16] MEDS: PIPERACILLIN/TAZOBACTAM 3.375 GM in DEXTROSE 5% 100 ML IV SCH ×2 (12:57→20:26)
--- NOTE | 2020-06-16 18:59 | Hospitalist Progress Note ---
Date of Service June 16, 2020 Assessment & Plan (1) Respiratory failure, acute and chronic: Secondary to pneumonia, improved on current therapies. (2) Pneumonia: Pneumonia present on right lung, patient with heavy alcohol use history, aspiration is possible, therefore, cover for gram-negative microbes with broad- spectrum Zosyn at this time. Patient has improved on current therapies. Sputum culture as able. Speech therapy consulted to evaluate for danae aspiration. Trend pro calcitonin in a.m. (3) Diabetes mellitus, type II: Continue basal bolus insulin while hospitalized. (4) Paroxysmal atrial fibrillation: History of paroxysmal atrial fibrillation and is off of anticoagulation secondary to a history of bleeding and compliance issues. Continue rate control with verapamil, consider decreasing dosage if persistent bradycardia is seen. (5) GERD (gastroesophageal reflux disease): Continue pantoprazole per home regimen. (6) Hypothyroidism: Continue levothyroxine per home regimen. (7) COPD (chronic obstructive pulmonary disease): Does not appear to have exacerbation present. Patient is not wheezing and is at his baseline oxygen status. Mucus production and initial dyspnea likely secondary to pneumonia. Continue antibiotic therapy. Steroids were stopped. Bronchodilators as needed, continue scheduled Singulair per home regimen. (8) Alcohol use: Patient has been at rehab since last discharge. Continued cessation of alcohol recommended. (9) Tobacco use: Patient has been at rehab since last discharge. Continued cessation of tobacco recommended. (10) DVT prophylaxis: Heparin changed to Lovenox to reduce shock burden Full code Disposition-continue hospitalization at this time. Plan for him to return to rehab once medically stable. Bernie Carey DO [place] Hospitalist Admission and Anticipated Discharge Date Admission Date: June 16, 2020 Subjective Mr. Villareal is a 70-year-old man recently admitted to the hospital 1 month ago for COPD exacerbation. He reports going home and feeling well up until the day prior to admission when he became short of breath. He reports some change in his sputum color to a more yellow mucus. He otherwise denies any fevers, and he reports feeling improved since admission overnight. Review of Systems Review of Systems: All systems reviewed & are unremarkable except as noted in Subjective Physical Exam Physical Exam: CONSTITUTIONAL: WNWD, vitals as above, generally well- appearing EYES: normal conjunctivae, no scleral icterus ENT: external ear and nose normal, oropharynx clear RESPIRATORY: clear to auscultation bilaterally, no crackles, rales or wheezes, very diminished breath sounds throughout all lung stevens, normal respiratory effort CARDIOVASCULAR: regular rate and rhythm, S1 and 2 heard without murmurs, gallops or rubs, no JVD, no peripheral edema GASTROINTESTINAL: soft, nontender, nondistended MUSCULOSKELETAL: strength 5/5 throughout, head is normocephalic and atraumatic SKIN: warm and dry NEUROLOGIC: CN 2-12 grossly intact, no sensory deficit, normal cognition, normal speech, no gross focal deficits. PSYCHIATRIC: alert cooperative and oriented to person, place and time. Results & Data Results & Data ([facility]) Vital Signs (Past 12 Hours) Vital Signs Temp Pulse Pulse Pulse Resp BP Pulse Ox 06/16/20 14:46 36.4 C L 58 L 20 95/45 L 95 06/16/20 14:18 52 L 20 89 L 06/16/20 11:00 36.3 C L 77 20 136/65 97 06/16/20 10:46 50 L 18 98 06/16/20 07:26 54 L 68 18 98 06/16/20 07:00 36.7 C 51 L 20 120/71 97 Laboratory Results Short CBC 06/16/20 Range/Units Unknown WBC 11.16 H (4.8-10.8) K/uL Hgb 10.8 L (14.0-18.0) g/dL Hct 32.8 L (42-52) % Plt Count 206 (130-400) K/uL BMP 06/16/20 Unknown Sodium 141 Potassium 4.1 Chloride 106 Carbon Dioxide 33 H BUN 21 H Creatinine 0.98 Glucose 155 H Calcium 8.6 Cardiac Enzymes 06/16/20 Range/Units Unknown Troponin I < 0.015 (0-0.045) ng/ml Liver Function 06/16/20 Range/Units Unknown Total Bilirubin 0.4 (0.2-1) mg/dl AST 31 (15-37) U/L ALT 39 (12-78) U/L Alkaline Phosphatase 149 H (45-117) U/L Albumin 2.6 L (3.4-5.0) gm/dl Urine 06/16/20 Range/Units 04:17 Urine Color Yellow Urine Appearance Clear (Clear) Urine pH 6.5 (4.5-7.5) Ur Specific [place] 1.032 H (1.000-1.030) Urine Protein Negative (Negative) Urine Glucose (UA) Negative (Negative) Medications Administered Current Inpatient Medications Acetaminophen (Acetaminophen 325 Mg Tab) 650 mg PO Q4H PRN PRN Reason: Pain or Fever Stop: 07/16/20 04:57 Albuterol (Albut/Ipratrop 3mg/0.5mg Neb 3 Ml Vial) 3 ml NEB QIDR SAE Stop: 07/16/20 06:59 Last Admin: 06/16/20 14:18 Dose: 3 ml Documented by: Atorvastatin Calcium (Atorvastatin 40 Mg Tab) 40 mg PO QAM [facility] Stop: 07/16/20 08:59 Last Admin: 06/16/20 08:08 Dose: 40 mg Documented by: Dextrose (Dextrose 50% 50 Ml Syringe) 25 - 50 ml IV UD PRN; Protocol PRN Reason: Hypoglycemia Protocol Stop: 07/16/20 04:57 Docusate Sodium (Docusate Sodium 100 Mg Cap) 100 mg PO DAILY SAE Stop: 07/16/20 08:59 Last Admin: 06/16/20 08:08 Dose: 100 mg Documented by: Gabapentin (Gabapentin 300 Mg Cap) 300 mg PO HS [facility] Stop: 07/16/20 20:59 Glucagon (Glucagon For Inj 1 Mg Vial) 1 mg SQ UD PRN; Protocol PRN Reason: Hypoglycemia Protocol Stop: 07/16/20 04:57 Glucose (Glucose 10 Tabs/Tube) 4 - 8 tabs PO UD PRN; Protocol PRN Reason: Hypoglycemia Protocol Stop: 07/16/20 04:57 Glucose (Glucose 40% Gel 15 Gm Tube) 15 - 30 gm PO UD PRN; Protocol PRN Reason: Hypoglycemia Protocol Stop: 07/16/20 04:57 Heparin Sodium (Porcine) (Heparin Sod 5,000 Unit/0.5 Ml Vial) 5,000 units SQ Q8 SAE Stop: 07/16/20 05:59 Last Admin: 06/16/20 14:05 Dose: 5,000 units Documented by: Promethazine HCl 6.25 mg/ (Sodium Chloride) 50.25 mls @ 201 mls/hr IV Q6H PRN PRN Reason: Nausea And Vomiting Stop: 07/16/20 04:57 Piperacillin Sod/Tazobactam (Sod 3.375 gm/ Dextrose) 115 mls @ 28.75 mls/hr IV Q8H SAE; Protocol Stop: 06/23/20 11:59 Last Infusion: 06/16/20 17:10 Dose: Infused Documented by: Insulin Aspart (Insulin Aspart 100 Units/Ml 3 Ml Pen) 0 units SC ACHS [facility] Stop: 07/16/20 05:14 Last Admin: 06/16/20 17:52 Dose: 6 units Documented by: Insulin Glargine (Insulin Glargine Solostar 100 Units/Ml 3 Ml Pen) 5 units SC DAILY [facility] Stop: 07/17/20 08:59 Levothyroxine Sodium (Levothyroxine Sodium 50 Mcg Tablet) 50 mcg PO DAILYBB [facility] Stop: 07/16/20 06:29 Last Admin: 06/16/20 05:37 Dose: 50 mcg Documented by: Miscellaneous (Carbohydrates For Hypoglycemia ) 15 - 30 gm PO UD PRN PRN Reason: Hypoglycemia Protocol Stop: 07/16/20 04:57 Miscellaneous Information (Piperacill/Tazobac Consult Active) 1 ea N/A UD PRN PRN Reason: Consult Stop: 07/16/20 04:57 Montelukast Sodium (Montelukast Sodium 10 Mg Tablet) 10 mg PO PM [facility] Stop: 07/16/20 20:59 Oxycodone HCl (Oxycodone Hcl Ir 5 Mg Tab (Immediate Release)) 5 mg PO Q4H PRN PRN Reason: Pain Stop: 06/30/20 04:57 Pantoprazole Sodium (Pantoprazole 40 Mg Tab) 40 mg PO DAILY SAE Stop: 07/16/20 08:59 Last Admin: 06/16/20 08:08 Dose: 40 mg Documented by: Prednisone (Prednisone 20 Mg Tab) 40 mg PO DAILY [facility] Stop: 06/21/20 08:59 Sertraline HCl (Sertraline Hcl 100 Mg Tablet) 100 mg PO DAILY [facility] Stop: 07/16/20 08:59 Last Admin: 06/16/20 08:08 Dose: 100 mg Documented by: Verapamil HCl (Verapamil Hcl 120 Mg Tabcr) 120 mg PO DAILY [facility] Stop: 07/16/20 08:59 Last Admin: 06/16/20 08:08 Dose: 120 mg Documented by:
[2020-06-16] MEDS: ALBUT/IPRATROP 3MG/0.5MG NEB 3 ML VIAL NEB PRN (19:17)
[2020-06-16] MEDS: GABAPENTIN 300 MG CAP PO SCH (20:27)
[2020-06-16] MEDS: INSULIN GLARGINE SOLOSTAR 100 UNITS/ML 3 ML PEN SC SCH (20:27)
[2020-06-16] MEDS: MONTELUKAST SODIUM 10 MG TABLET PO SCH (20:29)
[2020-06-17] MEDS: PIPERACILLIN/TAZOBACTAM 3.375 GM in DEXTROSE 5% 100 ML IV SCH ×3 (04:44→20:14)
[2020-06-17] MEDS: LEVOTHYROXINE SODIUM 50 MCG TABLET PO SCH (05:52)
[2020-06-17 07:28] LABS: Eosinophils # (auto) 0.01 K/uL (0-0.5); Eosinophils % (auto) 0.1 %; Hematocrit (blood only) 29.9 % (42-52); Immature Granulocytes # (auto) 0.03 K/uL (0.00-0.02); Immature Granulocytes % (auto) 0.3 %; Lymphocytes # (auto) 0.84 K/uL (1.2-3.4); Lymphocytes % (auto) 8.2 %; Mean Corpuscular Hemoglobin 33.3 pg (25-34); Mean Corpuscular Hgb Conc 33.4 g/dL (32-36); Mean Corpuscular Volume 99.7 fL (80-100); Mean Platelet Volume 11.3 fL (7.4-10.4); Monocytes # (auto) 0.85 K/uL (0.11-0.59); Monocytes % (auto) 8.3 %; Neutrophils # (auto) 8.49 K/uL (1.4-6.5); Neutrophils % (auto) 83.1 %; Platelet Count 246 K/uL (130-400); RDW Coefficient of Variation 12.6 % (11.5-14.5); RDW Standard Deviation 45.9 fL (36.4-46.3); White Blood Count 10.22 K/uL (4.8-10.8)
[2020-06-17 07:46] LABS: Calcium 8.7 mg/dl (8.5-10.1); Creatinine Clr Calc Pharmacy 66.3 ml/min; Est GFR (African American) 94.9; Est GFR (Non-African American) 81.9; Potassium 4.1 mmol/L (3.5-5.1)
[2020-06-17] MEDS ORDERED: predniSONE 20 MG TAB PO SCH (09:00)
[2020-06-17] MEDS ORDERED: INSULIN GLARGINE SOLOSTAR 100 UNITS/ML 3 ML PEN SC SCH (09:00)
[2020-06-17] MEDS: INSULIN ASPART 100 UNITS/ML 3 ML PEN SC SCH ×4 (09:17→20:15)
[2020-06-17] MEDS: INSULIN GLARGINE SOLOSTAR 100 UNITS/ML 3 ML PEN SC SCH ×2 (09:19→20:16)
[2020-06-17] MEDS: DOCUSATE SODIUM 100 MG CAP PO SCH (09:20)
[2020-06-17] MEDS: ENOXAPARIN INJ 40 MG/0.4 ML SYR SQ SCH (09:20)
[2020-06-17] MEDS: PANTOprazole 40 MG TAB PO SCH (09:21)
[2020-06-17] MEDS: SERTRALINE HCL 100 MG TABLET PO SCH (09:21)
[2020-06-17] MEDS: ATORVASTATIN 40 MG TAB PO SCH (09:21)
[2020-06-17] MEDS: VERAPAMIL HCL 120 MG TABCR PO SCH (09:21)
[2020-06-17] MEDS: ALBUT/IPRATROP 3MG/0.5MG NEB 3 ML VIAL NEB PRN ×2 (11:50→22:30)
--- NOTE | 2020-06-17 15:31 | Hospitalist Progress Note ---
Date of Service June 17, 2020 Assessment & Plan (1) Respiratory failure, acute and chronic: Secondary to pneumonia, improved on current therapies. (2) Gram-negative pneumonia: Pneumonia present on right lung, patient with heavy alcohol use history, aspiration is possible, therefore, cover for gram-negative microbes with broad- spectrum Zosyn at this time. Patient has improved on current therapies. Sputum culture as able. Speech therapy consulted revealing no danae aspiration. He has a known h/o esophageal dysfunction-plan for barium swallow on saturday. Cont Protonix to minimize reflux. (3) Diabetes mellitus, type II: Continue basal bolus insulin while hospitalized. (4) Paroxysmal atrial fibrillation: History of paroxysmal atrial fibrillation and is off of anticoagulation secondary to a history of bleeding and compliance issues. Continue rate control with verapamil, consider decreasing dosage if persistent bradycardia is seen. (5) GERD (gastroesophageal reflux disease): Continue pantoprazole per home regimen. (6) Hypothyroidism: Continue levothyroxine per home regimen. (7) COPD (chronic obstructive pulmonary disease): Does not appear to have exacerbation present. Patient is not wheezing and is at his baseline oxygen status. Mucus production and initial dyspnea likely secondary to pneumonia. Continue antibiotic therapy. Steroids were stopped. Bronchodilators as needed, continue scheduled Singulair per home regimen. (8) Alcohol use: Patient has been at rehab since last discharge. Continued cessation of alcohol recommended. (9) Tobacco use: Patient has been at rehab since last discharge. Continued cessation of tobacco recommended. (10) DVT prophylaxis: Heparin changed to Lovenox to reduce shock burden Full code Disposition-continue hospitalization at this time. PT/OT to evaluate. He desires to go home with home heatlh at time of discharge. Bernie Carey DO [facility] Hospitalist Admission and Anticipated Discharge Date Admission Date: June 16, 2020 Subjective Mr. Villareal is a 70-year-old man recently admitted to the hospital 1 month ago for COPD exacerbation. He reports going home and feeling well up until the day prior to admission when he became short of breath. He reports persistent SOB with prolonged recovery time with exertion. Denies cough, fevers, chills or other new symptoms at this time. Not working to breathe. Review of Systems Review of Systems: All systems reviewed & are unremarkable except as noted in Subjective Physical Exam Physical Exam: CONSTITUTIONAL: WNWD, vitals as above, generally well- appearing EYES: normal conjunctivae, no scleral icterus ENT: external ear and nose normal, oropharynx clear RESPIRATORY: clear to auscultation bilaterally, no crackles, rales or wheezes, very diminished breath sounds throughout all lung stevens, normal respiratory effort CARDIOVASCULAR: regular rate and rhythm, S1 and 2 heard without murmurs, gallops or rubs, no JVD, no peripheral edema GASTROINTESTINAL: soft, nontender, nondistended MUSCULOSKELETAL: strength 5/5 throughout, head is normocephalic and atraumatic SKIN: warm and dry NEUROLOGIC: CN 2-12 grossly intact, no sensory deficit, normal cognition, normal speech, no gross focal deficits. PSYCHIATRIC: alert cooperative and oriented to person, place and time. Results & Data Results & Data ([facility]) Vital Signs (Past 12 Hours) Vital Signs Temp Pulse Pulse Resp BP Pulse Ox 06/17/20 14:55 36.5 C 53 L 20 105/66 97 06/17/20 11:50 58 L 18 98 06/17/20 11:27 36.6 C 57 L 20 128/64 99 06/17/20 07:59 36.4 C L 54 L 20 112/68 99 06/17/20 07:11 49 L 06/17/20 04:49 36.5 C 57 L 20 109/65 93 Laboratory Results Short CBC 06/17/20 Range/Units 06:27 WBC 10.22 (4.8-10.8) K/uL Hgb 10.0 L (14.0-18.0) g/dL Hct 29.9 L (42-52) % Plt Count 246 (130-400) K/uL [facility] 06/17/20 06:27 Sodium 140 Potassium 4.1 Chloride 105 Carbon Dioxide 32 BUN 21 H Creatinine 0.95 Glucose 130 H Calcium 8.7 Medications Administered Current Inpatient Medications Acetaminophen (Acetaminophen 325 Mg Tab) 650 mg PO Q4H PRN PRN Reason: Pain or Fever Stop: 07/16/20 04:57 Albuterol (Albut/Ipratrop 3mg/0.5mg Neb 3 Ml Vial) 3 ml NEB QIDR PRN PRN Reason: SOB/wheezing Stop: 07/16/20 06:59 Last Admin: 06/17/20 11:50 Dose: 3 ml Documented by: Atorvastatin Calcium (Atorvastatin 40 Mg Tab) 40 mg PO QAM [facility] Stop: 07/16/20 08:59 Last Admin: 06/17/20 09:21 Dose: 40 mg Documented by: Dextrose (Dextrose 50% 50 Ml Syringe) 25 - 50 ml IV UD PRN; Protocol PRN Reason: Hypoglycemia Protocol Stop: 07/16/20 04:57 Docusate Sodium (Docusate Sodium 100 Mg Cap) 100 mg PO DAILY [facility] Stop: 07/16/20 08:59 Last Admin: 06/17/20 09:20 Dose: 100 mg Documented by: Enoxaparin Sodium (Enoxaparin Inj 40 Mg/0.4 Ml Syr) 40 mg SQ QAM [facility] Stop: 07/17/20 08:59 Last Admin: 06/17/20 09:20 Dose: 40 mg Documented by: Gabapentin (Gabapentin 300 Mg Cap) 300 mg PO HS [facility] Stop: 07/16/20 20:59 Last Admin: 06/16/20 20:27 Dose: 300 mg Documented by: Glucagon (Glucagon For Inj 1 Mg Vial) 1 mg SQ UD PRN; Protocol PRN Reason: Hypoglycemia Protocol Stop: 07/16/20 04:57 Glucose (Glucose 10 Tabs/Tube) 4 - 8 tabs PO UD PRN; Protocol PRN Reason: Hypoglycemia Protocol Stop: 07/16/20 04:57 Glucose (Glucose 40% Gel 15 Gm Tube) 15 - 30 gm PO UD PRN; Protocol PRN Reason: Hypoglycemia Protocol Stop: 07/16/20 04:57 Promethazine HCl 6.25 mg/ (Sodium Chloride) 50.25 mls @ 201 mls/hr IV Q6H PRN PRN Reason: Nausea And Vomiting Stop: 07/16/20 04:57 Piperacillin Sod/Tazobactam (Sod 3.375 gm/ Dextrose) 115 mls @ 28.75 mls/hr IV Q8H [facility]; Protocol Stop: 06/23/20 11:59 Last Admin: 06/17/20 12:29 Dose: 28.8 mls/hr Documented by: Insulin Aspart (Insulin Aspart 100 Units/Ml 3 Ml Pen) 0 units SC ACHS [facility] Stop: 07/16/20 05:14 Last Admin: 06/17/20 12:26 Dose: Not Given Documented by: Insulin Glargine (Insulin Glargine Solostar 100 Units/Ml 3 Ml Pen) 10 units SC BID [facility] Stop: 07/16/20 20:59 Last Admin: 06/17/20 09:19 Dose: 10 units Documented by: Levothyroxine Sodium (Levothyroxine Sodium 50 Mcg Tablet) 50 mcg PO DAILYBB [facility] Stop: 07/16/20 06:29 Last Admin: 06/17/20 05:52 Dose: 50 mcg Documented by: Miscellaneous (Carbohydrates For Hypoglycemia ) 15 - 30 gm PO UD PRN PRN Reason: Hypoglycemia Protocol Stop: 07/16/20 04:57 Last Admin: 06/17/20 11:30 Dose: 30 gm Documented by: Miscellaneous Information (Piperacill/Tazobac Consult Active) 1 ea N/A UD PRN PRN Reason: Consult Stop: 07/16/20 04:57 Montelukast Sodium (Montelukast Sodium 10 Mg Tablet) 10 mg PO PM [facility] Stop: 07/16/20 20:59 Last Admin: 06/16/20 20:29 Dose: 10 mg Documented by: Pantoprazole Sodium (Pantoprazole 40 Mg Tab) 40 mg PO DAILY [facility] Stop: 07/16/20 08:59 Last Admin: 06/17/20 09:21 Dose: 40 mg Documented by: Sertraline HCl (Sertraline Hcl 100 Mg Tablet) 100 mg PO DAILY [facility] Stop: 07/16/20 08:59 Last Admin: 06/17/20 09:21 Dose: 100 mg Documented by: Verapamil HCl (Verapamil Hcl 120 Mg Tabcr) 120 mg PO DAILY [facility] Stop: 07/16/20 08:59 Last Admin: 06/17/20 09:21 Dose: 120 mg Documented by:
[2020-06-17] MEDS: GABAPENTIN 300 MG CAP PO SCH (20:15)
[2020-06-17] MEDS: MONTELUKAST SODIUM 10 MG TABLET PO SCH (20:15)
[2020-06-18] MEDS: PIPERACILLIN/TAZOBACTAM 3.375 GM in DEXTROSE 5% 100 ML IV SCH ×3 (03:33→19:39)
[2020-06-18] MEDS: LEVOTHYROXINE SODIUM 50 MCG TABLET PO SCH (05:44)
[2020-06-18] MEDS: DOCUSATE SODIUM 100 MG CAP PO SCH (08:52)
[2020-06-18] MEDS: ATORVASTATIN 40 MG TAB PO SCH (08:53)
[2020-06-18] MEDS: VERAPAMIL HCL 120 MG TABCR PO SCH (08:53)
[2020-06-18] MEDS: ENOXAPARIN INJ 40 MG/0.4 ML SYR SQ SCH (08:53)
[2020-06-18] MEDS: PANTOprazole 40 MG TAB PO SCH (08:53)
[2020-06-18] MEDS: SERTRALINE HCL 100 MG TABLET PO SCH (08:53)
[2020-06-18] MEDS: INSULIN ASPART 100 UNITS/ML 3 ML PEN SC SCH ×5 (08:54→21:06)
[2020-06-18] MEDS: INSULIN GLARGINE SOLOSTAR 100 UNITS/ML 3 ML PEN SC SCH ×2 (08:55→21:06)
[2020-06-18] MEDS: ALBUT/IPRATROP 3MG/0.5MG NEB 3 ML VIAL NEB PRN ×2 (09:22→21:30)
--- NOTE | 2020-06-18 17:32 | Hospitalist Progress Note ---
Date of Service June 18, 2020 Assessment & Plan (1) Respiratory failure, acute and chronic: Secondary to pneumonia, improved on current therapies. (2) Gram-negative pneumonia: Pneumonia present on right lung, patient with heavy alcohol use history, aspiration is possible, therefore, cover for gram-negative microbes with broad- spectrum Zosyn at this time. Patient has improved on current therapies. Sputum culture as able. Speech therapy consulted revealing no danae aspiration. He has a known h/o esophageal dysfunction-plan for barium swallow on saturday. Cont Protonix to minimize reflux. (3) Diabetes mellitus, type II: Continue basal bolus insulin while hospitalized. (4) Paroxysmal atrial fibrillation: History of paroxysmal atrial fibrillation and is off of anticoagulation secondary to a history of bleeding and compliance issues. Continue rate control with verapamil, consider decreasing dosage if persistent bradycardia is seen. (5) GERD (gastroesophageal reflux disease): Continue pantoprazole per home regimen. (6) Hypothyroidism: Continue levothyroxine per home regimen. (7) COPD (chronic obstructive pulmonary disease): Does not appear to have exacerbation present. Patient is not wheezing and is at his baseline oxygen status, with dyspnea likely secondary to pneumonia, improved. Continue antibiotic therapy. Steroids were stopped. Bronchodilators as needed, continue scheduled Singulair per home regimen. (8) Alcohol use: Patient has been at rehab since last discharge. Continued cessation of alcohol recommended. (9) Tobacco use: Patient has been at rehab since last discharge. Continued cessation of tobacco recommended. (10) DVT prophylaxis: Lovenox Full code Disposition-continue hospitalization at this time. PT/OT to evaluate. He desires to go home with home health at time of discharge. [facility] and Anticipated Discharge Date Admission Date: June 16, 2020 Subjective Mr. Villareal is a 70-year-old man recently admitted to the hospital 1 month ago for COPD exacerbation. He reports going home and feeling well up until the day prior to admission when he became short of breath. Today he reports improvement in his breathing. He still has some shortness of breath with exertion that is worse from his baseline. He was working with physical therapy today and reports this went well. He continues to tolerate p.o. He is coughing up mucus per his report. He asked where his things were including his black bag with electric razor into his wallet. Staff went on to search and found this is still over at [facility]. His wallet is not inside of his bag however, this is probably locked in a safe that is not accessible until Saturday. Review of Systems Review of Systems: All systems reviewed & are unremarkable except as noted in Subjective Physical Exam Physical Exam: CONSTITUTIONAL: WNWD, vitals as above, generally well- appearing EYES: normal conjunctivae, no scleral icterus ENT: external ear and nose normal, oropharynx clear RESPIRATORY: clear to auscultation bilaterally, no crackles, rales or wheezes, improvement in airflow throughout, normal diaphragmatic excursion, normal respiratory effort CARDIOVASCULAR: regular rate and rhythm, S1 and 2 heard without murmurs, gallops or rubs, no JVD, no peripheral edema GASTROINTESTINAL: soft, nontender, nondistended MUSCULOSKELETAL: strength 5/5 throughout, head is normocephalic and atraumatic SKIN: warm and dry NEUROLOGIC: CN 2-12 grossly intact, no sensory deficit, normal cognition, normal speech, no gross focal deficits. PSYCHIATRIC: alert cooperative and oriented to person, place and time. Results & Data Results & Data ([facility]) Vital Signs (Past 12 Hours) Vital Signs Temp Pulse Pulse Resp BP BP Pulse Ox 06/18/20 16:04 36.6 C 57 L 20 125/56 L 98 06/18/20 15:16 95 06/18/20 14:19 60 06/18/20 14:13 06/18/20 12:17 36.7 C 65 22 120/61 90 06/18/20 09:23 62 18 98 06/18/20 07:50 36.5 C 58 L 22 113/73 95 06/18/20 07:00 55 L Pulse Ox 06/18/20 16:04 06/18/20 15:16 06/18/20 14:19 06/18/20 14:13 90 06/18/20 12:17 06/18/20 09:23 06/18/20 07:50 06/18/20 07:00 Medications Administered Current Inpatient Medications Acetaminophen (Acetaminophen 325 Mg Tab) 650 mg PO Q4H PRN PRN Reason: Pain or Fever Stop: 07/16/20 04:57 Albuterol (Albut/Ipratrop 3mg/0.5mg Neb 3 Ml Vial) 3 ml NEB QIDR PRN PRN Reason: SOB/wheezing Stop: 07/16/20 06:59 Last Admin: 06/18/20 09:22 Dose: 3 ml Documented by: Atorvastatin Calcium (Atorvastatin 40 Mg Tab) 40 mg PO QAM [facility] Stop: 07/16/20 08:59 Last Admin: 06/18/20 08:53 Dose: 40 mg Documented by: Dextrose (Dextrose 50% 50 Ml Syringe) 25 - 50 ml IV UD PRN; Protocol PRN Reason: Hypoglycemia Protocol Stop: 07/16/20 04:57 Docusate Sodium (Docusate Sodium 100 Mg Cap) 100 mg PO DAILY [facility] Stop: 07/16/20 08:59 Last Admin: 06/18/20 08:52 Dose: 100 mg Documented by: Enoxaparin Sodium (Enoxaparin Inj 40 Mg/0.4 Ml Syr) 40 mg SQ QAM [facility] Stop: 07/17/20 08:59 Last Admin: 06/18/20 08:53 Dose: 40 mg Documented by: Gabapentin (Gabapentin 300 Mg Cap) 300 mg PO HS [facility] Stop: 07/16/20 20:59 Last Admin: 06/17/20 20:15 Dose: 300 mg Documented by: Glucagon (Glucagon For Inj 1 Mg Vial) 1 mg SQ UD PRN; Protocol PRN Reason: Hypoglycemia Protocol Stop: 07/16/20 04:57 Glucose (Glucose 10 Tabs/Tube) 4 - 8 tabs PO UD PRN; Protocol PRN Reason: Hypoglycemia Protocol Stop: 07/16/20 04:57 Glucose (Glucose 40% Gel 15 Gm Tube) 15 - 30 gm PO UD PRN; Protocol PRN Reason: Hypoglycemia Protocol Stop: 07/16/20 04:57 Promethazine HCl 6.25 mg/ (Sodium Chloride) 50.25 mls @ 201 mls/hr IV Q6H PRN PRN Reason: Nausea And Vomiting Stop: 07/16/20 04:57 Piperacillin Sod/Tazobactam (Sod 3.375 gm/ Dextrose) 115 mls @ 28.75 mls/hr IV Q8H [facility]; Protocol Stop: 06/23/20 11:59 Last Infusion: 06/18/20 16:43 Dose: Infused Documented by: Insulin Aspart (Insulin Aspart 100 Units/Ml 3 Ml Pen) 0 units SC ACHS [facility] Stop: 07/16/20 05:14 Last Admin: 06/18/20 17:08 Dose: Not Given Documented by: Insulin Glargine (Insulin Glargine Solostar 100 Units/Ml 3 Ml Pen) 10 units SC BID [facility] Stop: 07/16/20 20:59 Last Admin: 06/18/20 08:55 Dose: 10 units Documented by: Levothyroxine Sodium (Levothyroxine Sodium 50 Mcg Tablet) 50 mcg PO DAILYBB [facility] Stop: 07/16/20 06:29 Last Admin: 06/18/20 05:44 Dose: 50 mcg Documented by: Miscellaneous (Carbohydrates For Hypoglycemia ) 15 - 30 gm PO UD PRN PRN Reason: Hypoglycemia Protocol Stop: 07/16/20 04:57 Last Admin: 06/17/20 11:30 Dose: 30 gm Documented by: Miscellaneous Information (Piperacill/Tazobac Consult Active) 1 ea N/A UD PRN PRN Reason: Consult Stop: 07/16/20 04:57 Montelukast Sodium (Montelukast Sodium 10 Mg Tablet) 10 mg PO PM [facility] Stop: 07/16/20 20:59 Last Admin: 06/17/20 20:15 Dose: 10 mg Documented by: Pantoprazole Sodium (Pantoprazole 40 Mg Tab) 40 mg PO DAILY [facility] Stop: 07/16/20 08:59 Last Admin: 06/18/20 08:53 Dose: 40 mg Documented by: Sertraline HCl (Sertraline Hcl 100 Mg Tablet) 100 mg PO DAILY [facility] Stop: 07/16/20 08:59 Last Admin: 06/18/20 08:53 Dose: 100 mg Documented by: Verapamil HCl (Verapamil Hcl 120 Mg Tabcr) 120 mg PO DAILY [facility] Stop: 07/16/20 08:59 Last Admin: 06/18/20 08:53 Dose: 120 mg Documented by:
[2020-06-18] MEDS ORDERED: lisinopril 2.5 MG TAB PO SCH (20:05)
[2020-06-18] MEDS: MONTELUKAST SODIUM 10 MG TABLET PO SCH (21:05)
[2020-06-18] MEDS: GABAPENTIN 300 MG CAP PO SCH (21:05)
[2020-06-19] MEDS: PIPERACILLIN/TAZOBACTAM 3.375 GM in DEXTROSE 5% 100 ML IV SCH ×2 (04:32→13:19)
[2020-06-19] MEDS: LEVOTHYROXINE SODIUM 50 MCG TABLET PO SCH (06:12)
[2020-06-19] MEDS: ALBUT/IPRATROP 3MG/0.5MG NEB 3 ML VIAL NEB PRN ×2 (06:21→17:26)
[2020-06-19] MEDS: ATORVASTATIN 40 MG TAB PO SCH (08:00)
[2020-06-19] MEDS: SERTRALINE HCL 100 MG TABLET PO SCH (08:01)
[2020-06-19] MEDS: INSULIN GLARGINE SOLOSTAR 100 UNITS/ML 3 ML PEN SC SCH ×2 (08:01→21:32)
[2020-06-19] MEDS: VERAPAMIL HCL 120 MG TABCR PO SCH (08:01)
[2020-06-19] MEDS: ENOXAPARIN INJ 40 MG/0.4 ML SYR SQ SCH (08:02)
[2020-06-19] MEDS: DOCUSATE SODIUM 100 MG CAP PO SCH (08:02)
[2020-06-19] MEDS: PANTOprazole 40 MG TAB PO SCH (08:02)
[2020-06-19] MEDS: INSULIN ASPART 100 UNITS/ML 3 ML PEN SC SCH ×4 (08:05→21:31)
--- NOTE | 2020-06-19 13:09 | Hospitalist Progress Note ---
Date of Service June 19, 2020 Assessment & Plan (1) Respiratory failure, acute and chronic: Secondary to pneumonia, improved on current therapies. Swallow eval revealed no danae aspiration, however, known esophageal dysfunction and there may be contribution from this. Also high risk aspirator with heavy alcohol use history. Barium swallow in am. Improving but very slowly. Afebrile. As he was recently hospitalized and came from a care home, will swab for MRSA. If positive will add MRSA pneumonia coverage. If not continuing to improve may consider a CT chest to rule out parapneumonic process or other complication of pneumonia. (2) Gram-negative pneumonia: Likely aspiration Pneumonia present on right lung, patient with heavy alcohol use history, aspiration is possible, therefore, cover for gram-negative microbes with broad-spectrum Zosyn at this time. Patient has improved on current therapies. Sputum culture as able. Speech therapy consulted revealing no danae aspiration. He has a known h/o esophageal dysfunction-plan for barium swallow on saturday. Cont Protonix to minimize reflux. De-escalate to Augmentin now. (3) Diabetes mellitus, type II: Continue basal bolus insulin while hospitalized. (4) Paroxysmal atrial fibrillation: History of paroxysmal atrial fibrillation and is off of anticoagulation secondary to a history of bleeding and compliance issues. Continue rate control with verapamil, consider decreasing dosage if persistent bradycardia is seen. (5) GERD (gastroesophageal reflux disease): Continue pantoprazole per home regimen. (6) Hypothyroidism: Continue levothyroxine per home regimen. (7) COPD (chronic obstructive pulmonary disease): Does not appear to have exacerbation present. Patient is not wheezing and is at his baseline oxygen status, with dyspnea likely secondary to pneumonia, improved. Continue antibiotic therapy. Steroids were stopped. Bronchodilators as needed, continue scheduled Singulair per home regimen. (8) Alcohol use: Patient has been at rehab since last discharge. Continued cessation of alcohol recommended. (9) Tobacco use: Patient has been at rehab since last discharge. Continued cessation of tobacco recommended. (10) DVT prophylaxis: Lovenox Full code Disposition-continue hospitalization at this time. PT/OT to evaluate. He desires to go home with home health at time of discharge. Bernie Carey DO [facility] Hospitalist Admission and Anticipated Discharge Date Admission Date: June 16, 2020 Subjective Mr. Villareal is a 70-year-old man recently admitted to the hospital 1 month ago for COPD exacerbation. He reports going home and feeling well up until the day prior to admission when he became short of breath. Today he reports comtinued improvement in his breathing. He still has some shortness of breath with exertion that is worse from his baseline. He was working with physical therapy today and reports this went well. He continues to tolerate p.o. He is coughing up mucus per his report. Afebrile, no other issues at this time. Tolerating PO Review of Systems Review of Systems: All systems reviewed & are unremarkable except as noted in Subjective Physical Exam Physical Exam: CONSTITUTIONAL: WNWD, vitals as above, generally well- appearing EYES: normal conjunctivae, no scleral icterus ENT: external ear and nose normal, oropharynx clear RESPIRATORY: clear to auscultation bilaterally, no crackles, rales or wheezes, good airflow throughout, normal diaphragmatic excursion, normal respiratory effort. On his baseline oxygen supplementation. CARDIOVASCULAR: regular rate and rhythm, S1 and 2 heard without murmurs, gallops or rubs, no JVD, no peripheral edema GASTROINTESTINAL: soft, nontender, nondistended MUSCULOSKELETAL: strength 5/5 throughout, head is normocephalic and atraumatic SKIN: warm and dry NEUROLOGIC: CN 2-12 grossly intact, no sensory deficit, normal cognition, normal speech, no gross focal deficits. PSYCHIATRIC: alert cooperative and oriented to person, place and time. Results & Data Results & Data ([facility]) Vital Signs (Past 12 Hours) Vital Signs Temp Pulse Pulse Resp BP BP Pulse Ox 06/19/20 12:22 36.6 C 64 22 119/69 97 06/19/20 07:54 36.6 C 63 22 128/67 94 06/19/20 07:00 64 06/19/20 06:22 67 20 97 06/19/20 03:36 36.5 C 63 18 131/69 98 Medications Administered Current Inpatient Medications Acetaminophen (Acetaminophen 325 Mg Tab) 650 mg PO Q4H PRN PRN Reason: Pain or Fever Stop: 07/16/20 04:57 Albuterol (Albut/Ipratrop 3mg/0.5mg Neb 3 Ml Vial) 3 ml NEB QIDR PRN PRN Reason: SOB/wheezing Stop: 07/16/20 06:59 Last Admin: 06/19/20 06:21 Dose: 3 ml Documented by: Atorvastatin Calcium (Atorvastatin 40 Mg Tab) 40 mg PO QAM [facility] Stop: 07/16/20 08:59 Last Admin: 06/19/20 08:00 Dose: 40 mg Documented by: Dextrose (Dextrose 50% 50 Ml Syringe) 25 - 50 ml IV UD PRN; Protocol PRN Reason: Hypoglycemia Protocol Stop: 07/16/20 04:57 Docusate Sodium (Docusate Sodium 100 Mg Cap) 100 mg PO DAILY [facility] Stop: 07/16/20 08:59 Last Admin: 06/19/20 08:02 Dose: 100 mg Documented by: Enoxaparin Sodium (Enoxaparin Inj 40 Mg/0.4 Ml Syr) 40 mg SQ QAM [facility] Stop: 07/17/20 08:59 Last Admin: 06/19/20 08:02 Dose: 40 mg Documented by: Gabapentin (Gabapentin 300 Mg Cap) 300 mg PO HS [facility] Stop: 07/16/20 20:59 Last Admin: 06/18/20 21:05 Dose: 300 mg Documented by: Glucagon (Glucagon For Inj 1 Mg Vial) 1 mg SQ UD PRN; Protocol PRN Reason: Hypoglycemia Protocol Stop: 07/16/20 04:57 Glucose (Glucose 10 Tabs/Tube) 4 - 8 tabs PO UD PRN; Protocol PRN Reason: Hypoglycemia Protocol Stop: 07/16/20 04:57 Glucose (Glucose 40% Gel 15 Gm Tube) 15 - 30 gm PO UD PRN; Protocol PRN Reason: Hypoglycemia Protocol Stop: 07/16/20 04:57 Promethazine HCl 6.25 mg/ (Sodium Chloride) 50.25 mls @ 201 mls/hr IV Q6H PRN PRN Reason: Nausea And Vomiting Stop: 07/16/20 04:57 Piperacillin Sod/Tazobactam (Sod 3.375 gm/ Dextrose) 115 mls @ 28.75 mls/hr IV Q8H [facility]; Protocol Stop: 06/23/20 11:59 Last Infusion: 06/19/20 09:50 Dose: Infused Documented by: Insulin Aspart (Insulin Aspart 100 Units/Ml 3 Ml Pen) 0 units SC ACHS [facility] Stop: 07/16/20 05:14 Last Admin: 06/19/20 08:05 Dose: Not Given Documented by: Insulin Glargine (Insulin Glargine Solostar 100 Units/Ml 3 Ml Pen) 10 units SC BID [facility] Stop: 07/16/20 20:59 Last Admin: 06/19/20 08:01 Dose: 10 units Documented by: Levothyroxine Sodium (Levothyroxine Sodium 50 Mcg Tablet) 50 mcg PO DAILYBB [facility] Stop: 07/16/20 06:29 Last Admin: 06/19/20 06:12 Dose: 50 mcg Documented by: Lisinopril (Lisinopril 2.5 Mg Tab) 2.5 mg PO HS [facility] Stop: 07/18/20 20:04 Last Admin: 06/18/20 21:05 Dose: 2.5 mg Documented by: Miscellaneous (Carbohydrates For Hypoglycemia ) 15 - 30 gm PO UD PRN PRN Reason: Hypoglycemia Protocol Stop: 07/16/20 04:57 Last Admin: 06/17/20 11:30 Dose: 30 gm Documented by: Miscellaneous Information (Piperacill/Tazobac Consult Active) 1 ea N/A UD PRN PRN Reason: Consult Stop: 07/16/20 04:57 Montelukast Sodium (Montelukast Sodium 10 Mg Tablet) 10 mg PO PM [facility] Stop: 07/16/20 20:59 Last Admin: 06/18/20 21:05 Dose: 10 mg Documented by: Pantoprazole Sodium (Pantoprazole 40 Mg Tab) 40 mg PO DAILY [facility] Stop: 07/16/20 08:59 Last Admin: 06/19/20 08:02 Dose: 40 mg Documented by: Sertraline HCl (Sertraline Hcl 100 Mg Tablet) 100 mg PO DAILY [facility] Stop: 07/16/20 08:59 Last Admin: 06/19/20 08:01 Dose: 100 mg Documented by: Verapamil HCl (Verapamil Hcl 120 Mg Tabcr) 120 mg PO DAILY [facility] Stop: 07/16/20 08:59 Last Admin: 06/19/20 08:01 Dose: 120 mg Documented by:
[2020-06-19] MEDS: AMOXICILLIN/CLAVULANATE 875 MG TAB PO SCH (18:35)
[2020-06-19] MEDS: MONTELUKAST SODIUM 10 MG TABLET PO SCH (21:31)
[2020-06-19] MEDS: GABAPENTIN 300 MG CAP PO SCH (21:31)
[2020-06-20] MEDS: LEVOTHYROXINE SODIUM 50 MCG TABLET PO SCH (06:32)
[2020-06-20 07:00] LABS: Est GFR (African American) 105.3; Est GFR (Non-African American) 90.9
[2020-06-20] MEDS: DOCUSATE SODIUM 100 MG CAP PO SCH ×2 (07:41→11:41)
[2020-06-20] MEDS: PANTOprazole 40 MG TAB PO SCH ×2 (07:41→11:41)
[2020-06-20] MEDS: VERAPAMIL HCL 120 MG TABCR PO SCH ×2 (07:41→11:41)
[2020-06-20] MEDS: AMOXICILLIN/CLAVULANATE 875 MG TAB PO SCH ×3 (07:41→17:26)
[2020-06-20] MEDS: ENOXAPARIN INJ 40 MG/0.4 ML SYR SQ SCH ×2 (07:42→11:41)
[2020-06-20] MEDS: ATORVASTATIN 40 MG TAB PO SCH ×2 (07:42→11:41)
[2020-06-20] MEDS: SERTRALINE HCL 100 MG TABLET PO SCH ×2 (07:42→11:41)
[2020-06-20] MEDS: INSULIN ASPART 100 UNITS/ML 3 ML PEN SC SCH ×4 (09:30→22:30)
[2020-06-20] MEDS: INSULIN GLARGINE SOLOSTAR 100 UNITS/ML 3 ML PEN SC SCH ×2 (11:41→22:32)
--- NOTE | 2020-06-20 12:18 | Fluoroscopy Report ---
[place] video swallow HISTORY: Dysphagia. Possible aspiration. TECHNIQUE: Video fluoroscopic evaluation of swallowing was performed in the AP and lateral projection s by the speech pathology staff. The patient is fed nectar-thick and thin liquid barium, a barium coa bolivar wafer, and barium pudding. FLUOROSCOPY TIME: 2 minutes. NUMBER OF FLUOROSCOPY IMAGES: 0 COMPARISON STUDY: Barium swallow performed in 2007 FINDINGS: The swallowing mechanics appear normal for age. There is no aspiration or penetration ident ified. IMPRESSION: 1. No aspiration identified. 2. Please see the speech pathologist report for detailed findings and recommendations. ACT 112: Negative or not required by law. Electronically signed by: Vladimir Parmar M.D. 06/20/2020 12:17 PM
--- NOTE | 2020-06-20 17:38 | Hospitalist Progress Note ---
Date of Service June 20, 2020 Assessment & Plan (1) Respiratory failure, acute and chronic: Secondary to pneumonia, improved on current therapies. Swallow eval revealed no danae aspiration, however, known esophageal dysfunction and there may be contribution from this. Also high risk aspirator with heavy alcohol use history. Patient was unable to stand long enough for barium swallow study this morning. Improvement appears to have plateaued and patient is irritated with this. He is resigned to transferring back to rehab at this point but feels that he might vascillate back and forth from the hospital to rehab because of his breathing. Will as pulm to weigh in on a reasonable expectation for him as he may even be a hospice candidate with his level of dyspnea. May consider CT imaging of the chest, but would like to have pulm see him first and get their thoughts. (2) Gram-negative pneumonia: Likely aspiration Pneumonia present on right lung, patient with heavy alcohol use history and known h/o esophageal dysmotility. Speech therapy consulted revealing no danae aspiration. Unable to tolerate barium swallow with his current levvel of weakness. May consider as outpatient when he is stronger. Cont Protonix to minimize reflux. Cont Augmentin. (3) Diabetes mellitus, type II: At goal. Continue basal bolus insulin while hospitalized. (4) Paroxysmal atrial fibrillation: History of paroxysmal atrial fibrillation and is off of anticoagulation secondary to a history of bleeding and compliance issues. Continue rate control with verapamil (5) GERD (gastroesophageal reflux disease): Continue pantoprazole per home regimen. (6) Hypothyroidism: Continue levothyroxine per home regimen. (7) COPD (chronic obstructive pulmonary disease): Does not appear to have exacerbation present. Patient is not wheezing and is at his baseline oxygen status, with dyspnea likely secondary to pneumonia, improved. Continue antibiotic therapy. Steroids started on admission were stopped. Bronchodilators as needed, continue scheduled Singulair per home regimen. (8) Alcohol use: Patient has been at rehab since last discharge. Continued cessation of alcohol recommended. (9) Tobacco use: Patient has been at rehab since last discharge. Continued cessation of tobacco recommended. (10) DVT prophylaxis: Lovenox Full code Disposition-continue hospitalization at this time. Will likely need rehab at this point. Case Management to help set up transfer back in next few days once he is feeling better. Bernie Carey DO [facility] Hospitalist Admission and Anticipated Discharge Date Admission Date: June 16, 2020 Subjective Mr. Villareal is a 70-year-old man recently admitted to the hospital 1 month ago for COPD exacerbation. He reports going home and feeling well up until the day prior to admission when he became short of breath. Today he reports his breathing is about the same. He still has some shortness of breath with exertion that is worse from his baseline. He was unable to stand long enough to tolerate the barium swallow this morning. He is expressing irritation that he is not being listened to, and is upset about being from his belongings. Discussed logistics with piano case maker who is helping with this. Review of Systems Review of Systems: All systems reviewed & are unremarkable except as noted in Subjective Physical Exam Physical Exam: CONSTITUTIONAL: WNWD, vitals as above, generally NAD but agitated. EYES: normal conjunctivae, no scleral icterus ENT: external ear and nose normal, oropharynx clear RESPIRATORY: clear to auscultation bilaterally, no crackles, rales or wheezes, diminished breath sounds throughout. Normal diaphragmatic excursion, normal respiratory effort. On his baseline oxygen supplementation. CARDIOVASCULAR: regular rate and rhythm, S1 and 2 heard without murmurs, gallops or rubs, no JVD, no peripheral edema GASTROINTESTINAL: soft, nontender, nondistended MUSCULOSKELETAL: strength 5/5 throughout, head is normocephalic and atraumatic SKIN: warm and dry NEUROLOGIC: CN 2-12 grossly intact, no sensory deficit, normal cognition, normal speech, no gross focal deficits. PSYCHIATRIC: alert cooperative and oriented to person, place and time. Results & Data Results & Data ([facility]) Vital Signs (Past 12 Hours) Vital Signs Temp Pulse Pulse Resp BP BP Pulse Ox 06/20/20 15:22 36.2 C L 60 18 152/81 H 100 06/20/20 11:00 36.3 C L 64 16 119/74 100 06/20/20 07:26 36.7 C 64 18 119/66 100 Laboratory Results [facility] 06/20/20 05:32 Creatinine 0.82 Medications Administered Current Inpatient Medications Acetaminophen (Acetaminophen 325 Mg Tab) 650 mg PO Q4H PRN PRN Reason: Pain or Fever Stop: 07/16/20 04:57 Albuterol (Albut/Ipratrop 3mg/0.5mg Neb 3 Ml Vial) 3 ml NEB QIDR PRN PRN Reason: SOB/wheezing Stop: 07/16/20 06:59 Last Admin: 06/19/20 17:26 Dose: 3 ml Documented by: Amoxicillin/Clavulanate Potassium (Amoxicillin/Clavulanate 875 Mg Tab) 1 tab PO BIDM [facility] Stop: 06/26/20 16:59 Last Admin: 06/20/20 17:26 Dose: 1 tab Documented by: Atorvastatin Calcium (Atorvastatin 40 Mg Tab) 40 mg PO QAM [facility] Stop: 07/16/20 08:59 Last Admin: 06/20/20 11:41 Dose: 40 mg Documented by: Dextrose (Dextrose 50% 50 Ml Syringe) 25 - 50 ml IV UD PRN; Protocol PRN Reason: Hypoglycemia Protocol Stop: 07/16/20 04:57 Docusate Sodium (Docusate Sodium 100 Mg Cap) 100 mg PO DAILY [facility] Stop: 07/16/20 08:59 Last Admin: 06/20/20 11:41 Dose: 100 mg Documented by: Enoxaparin Sodium (Enoxaparin Inj 40 Mg/0.4 Ml Syr) [facility] Stop: 07/17/20 08:59 Last Admin: 06/20/20 11:41 Dose: 40 mg Documented by: Gabapentin (Gabapentin 300 Mg Cap) 300 mg PO HS [facility] Stop: 07/16/20 20:59 Last Admin: 06/19/20 21:31 Dose: 300 mg Documented by: Glucagon (Glucagon For Inj 1 Mg Vial) 1 mg SQ UD PRN; Protocol PRN Reason: Hypoglycemia Protocol Stop: 07/16/20 04:57 Glucose (Glucose 10 Tabs/Tube) 4 - 8 tabs PO UD PRN; Protocol PRN Reason: Hypoglycemia Protocol Stop: 07/16/20 04:57 Glucose (Glucose 40% Gel 15 Gm Tube) 15 - 30 gm PO UD PRN; Protocol PRN Reason: Hypoglycemia Protocol Stop: 07/16/20 04:57 Promethazine HCl 6.25 mg/ (Sodium Chloride) 50.25 mls @ 201 mls/hr IV Q6H PRN PRN Reason: Nausea And Vomiting Stop: 07/16/20 04:57 Insulin Aspart (Insulin Aspart 100 Units/Ml 3 Ml Pen) 0 units SC ACHS [facility] Stop: 07/16/20 05:14 Last Admin: 06/20/20 17:27 Dose: Not Given Documented by: Insulin Glargine (Insulin Glargine Solostar 100 Units/Ml 3 Ml Pen) 10 units SC BID SAE Stop: 07/16/20 20:59 Last Admin: 06/20/20 11:41 Dose: 10 units Documented by: Levothyroxine Sodium (Levothyroxine Sodium 50 Mcg Tablet) 50 mcg PO DAILYBB SAE Stop: 07/16/20 06:29 Last Admin: 06/20/20 06:32 Dose: 50 mcg Documented by: Miscellaneous (Carbohydrates For Hypoglycemia ) 15 - 30 gm PO UD PRN PRN Reason: Hypoglycemia Protocol Stop: 07/16/20 04:57 Last Admin: 06/17/20 11:30 Dose: 30 gm Documented by: Montelukast Sodium (Montelukast Sodium 10 Mg Tablet) 10 mg PO PM SAE Stop: 07/16/20 20:59 Last Admin: 06/19/20 21:31 Dose: 10 mg Documented by: Pantoprazole Sodium (Pantoprazole 40 Mg Tab) 40 mg PO DAILY SAE Stop: 07/16/20 08:59 Last Admin: 06/20/20 11:41 Dose: 40 mg Documented by: Sertraline HCl (Sertraline Hcl 100 Mg Tablet) 100 mg PO DAILY SAE Stop: 07/16/20 08:59 Last Admin: 06/20/20 11:41 Dose: 100 mg Documented by: Verapamil HCl (Verapamil Hcl 120 Mg Tabcr) 120 mg PO DAILY SAE Stop: 07/16/20 08:59 Last Admin: 06/20/20 11:41 Dose: 120 mg Documented by:
[2020-06-20] MEDS: GABAPENTIN 300 MG CAP PO SCH (22:30)
[2020-06-20] MEDS: MONTELUKAST SODIUM 10 MG TABLET PO SCH (22:30)
[2020-06-21] MEDS: ALBUT/IPRATROP 3MG/0.5MG NEB 3 ML VIAL NEB PRN (00:46)
[2020-06-21] MEDS: LEVOTHYROXINE SODIUM 50 MCG TABLET PO SCH (06:38)
[2020-06-21] MEDS: DOCUSATE SODIUM 100 MG CAP PO SCH (09:39)
[2020-06-21] MEDS: PANTOprazole 40 MG TAB PO SCH (09:39)
[2020-06-21] MEDS: SERTRALINE HCL 100 MG TABLET PO SCH (09:39)
[2020-06-21] MEDS: ATORVASTATIN 40 MG TAB PO SCH (09:39)
[2020-06-21] MEDS: VERAPAMIL HCL 120 MG TABCR PO SCH (09:39)
[2020-06-21] MEDS: ENOXAPARIN INJ 40 MG/0.4 ML SYR SQ SCH (09:40)
[2020-06-21] MEDS: AMOXICILLIN/CLAVULANATE 875 MG TAB PO SCH ×2 (09:40→16:29)
[2020-06-21] MEDS: INSULIN GLARGINE SOLOSTAR 100 UNITS/ML 3 ML PEN SC SCH ×2 (09:40→20:25)
[2020-06-21] MEDS: INSULIN ASPART 100 UNITS/ML 3 ML PEN SC SCH ×5 (09:44→20:24)
--- NOTE | 2020-06-21 14:09 | Pulmonary Consultation ---
Date of Consultation June 21, 2020 Assessment & Plan (1) Acute exacerbation of chronic obstructive pulmonary disease: CT chest 06/16/2020 personally reviewed: See year centrilobular and paraseptal emphysema, infiltrate appreciated in the right upper lobe with interstitial thickening. Bilateral pleural effusion, more on the right. Insignificant mediastinal adenopathy --Acute on chronic hypoxic hypercapnic respiratory failure Multifactorial Likely a combination of pneumonia as well as CHF given the elevated BNP Continue with antibiotics. Continue with diuretics to keep the patient negative balance Continue with oxygen limitation to keep oxygen saturation between 88-92% --Severe COPD with emphysema Continue with Trelegy On discharge would recommend azithromycin 250 mg Saturday --Active smoker Advised to quit Plan: Continue with antibiotics. I will add doxycycline for atypical coverage for 5 days Patient does have infiltrate on the right upper lobe as well as mild bilateral pleural effusion Patient last 2D echo was back in 2019. I will repeat 2D echo to make sure heart is not playing a role in that Continue with flutter valve with guaifenesin. QTC 431 Recommend adding azithromycin 250 mg Saturday on discharge for his COPD Please note the above document was generated using voice recognition software. It may contain grammatical, syntax or spelling errors.Any formal questions or concerns about the content, text or information contained within the body of this dictation should be directly addressed to the provider for clarification. (2) COPD (chronic obstructive pulmonary disease): COPD type: unspecified COPD Qualified Code(s): J44.9 - Chronic obstructive pulmonary disease, unspecified (3) Pneumonia: Laterality: bilateral Lung location: unspecified part of lung Pneumonia type: due to unspecified organism Qualified Code(s): J18.9 - Pneumonia, unspecified organism (4) Acute on chronic respiratory failure with hypoxia and hypercapnia: (5) Tobacco use: History of Present Illness Attending Physician: Bernie Carey DO History of Present Illness 70-year-old male past medical history of COPD with emphysema on 3 L nasal cannula at home,Paroxysmal A. fib off anticoagulation secondary to GI bleeds, history of TIA, diabetes type 2 to the hospital with complaints of worsening cough and shortness of breath progressively getting worse. Pulmonary consulted to help manage the COPD Cough was yellow in color. Denies any hemoptysis. Denies any fever. Patient says he always has chills. Denies any dysuria or diarrhea. At the time of examination patient states that he is feeling better compared to when he came to the hospital Denies any headache, no dizziness, no nausea or vomiting. Fair appetite. He is upset as he is not able to get his records from [facility]. There is also issues with money involved. Social history: Active smoker greater than [id number] smoking history Allergies Allergy/AdvReac Type Severity Reaction Status Date / Time turkey Allergy Unknown Verified 06/16/20 02:15 Home Medications Medication Instructions Recorded Confirmed Type atorvastatin 40 mg PO QAM 01/28/18 06/16/20 History docusate sodium [Colace] 100 mg PO DAILY 01/28/18 06/16/20 History gabapentin 300 mg PO HS 01/28/18 06/16/20 History metformin 1,000 mg PO DAILY 04/23/18 06/16/20 History ipratropium bromide 0.5 mg INHALATION TID #0 ml 04/30/18 06/16/20 Rx Trelegy Ellipta 1 inh INHALATION DAILY 02/13/19 06/16/20 History levothyroxine 50 mcg PO DAILY 02/13/19 06/16/20 History montelukast 10 mg PO PM 02/13/19 06/16/20 History pantoprazole 40 mg PO DAILY 02/13/19 06/16/20 History sertraline 100 mg PO DAILY 02/13/19 06/16/20 History verapamil 120 mg PO DAILY 02/13/19 06/16/20 History acetaminophen 650 mg PO Q6 PRN MDD 3g/24hr 02/22/19 06/16/20 History hydroxyzine HCl 50 mg PO Q6 PRN 02/22/19 06/16/20 History guaifenesin 200 mg PO TID PRN #15 tab 04/22/19 06/16/20 Rx albuterol sulfate 2.5 mg INHALATION UD PRN 06/16/20 06/16/20 History ipratropium-albuterol [Combivent 1 puff INHALATION QID 06/16/20 06/16/20 History Respimat] Patient History Medical History (Updated 06/21/20 @ 14:07 by Jorje Soto MD) Alcohol use BPH (benign prostatic hyperplasia) Chronic respiratory failure with hypoxia COPD (chronic obstructive pulmonary disease) Depression Diabetes mellitus, type II Dyslipidemia Esophageal stenosis "s/p dilation June 2016" GERD (gastroesophageal reflux disease) HTN (hypertension) Hypothyroidism Leg edema Mood disorder Paroxysmal atrial fibrillation Superficial thrombophlebitis "2009" TIA (transient ischemic attack) "1982" Surgical History History of cataract surgery S/P bronchoscopy Family History Other Diabetes Social History Smoking Status: Current every day smoker Tobacco Type: Cigarettes Cigarettes Per Day: 20; Second Hand Exposure: No; Do You Dip or Chew Tobacco: No; Hx Alcohol Use: Yes Alcohol type: beer Alcohol Intake Frequency Comment: 2 beers a day Hx Substance Use: No Preferred Language: Luxembourgish Communication Ability: Effective Venipuncturist Required: No Beliefs That Will Affect Care: None marital status: Single Current Living Situation: Alone Current Living Situation Comment: has care givers on and How many Children do You have: 0 Other Information That Helps Us Care for You: No Feels Safe at Home: Yes Safety Concerns: Feels Safe At This Time Assistive Devices: Denture - Upper, Denture - Lower, Glasses, Oxygen - Continuous and Walker Review of Systems 2 Review of Systems: All systems reviewed & are unremarkable except as noted in HPI & below Physical Exam Physical Exam: Constitutional: No acute distress HEENT: EOMI, PERRLA Respiratory system: Decreased air entry bilaterally, no wheeze, no rhonchi, no crackles CVS: S1-S2 positive, no murmurs or gallops, distant heart sounds Abdomen: Soft, nontender, nondistended, positive bowel sounds x4 Extremities: +2 pulses bilaterally radialis/ dorsalis pedis, no cyanosis, no edema Neuro: Awake alert oriented x3 Psych: Normal mood and affect G/U: No Ortega Skin: no rashes, warm and dry Lymphatic: no cervical or axillary lymphadenopathy Results & Data Results & Data ([facility]) Vital Signs (Past 12 Hours) Vital Signs Temp Pulse Resp BP Pulse Ox 06/21/20 07:11 36.7 C 67 20 153/82 H 98 06/17/20 06:27 06/20/20 05:32 PG Care Time/CCT Total # of Minutes Spent Total Time Spent with Patient: Total time spent is greater than 50% in coordination of care (as documented) at patient's floor/unit and/or counseling patient: Coding Level of Care Code 72130 Initial Inpt Care Lvl 3 Diagnoses Acute exacerbation of chronic obstructive pulmonary disease J44.1 COPD (chronic obstructive pulmonary disease) J44.9 COPD type: unspecified COPD Pneumonia J18.9 Laterality: bilateral Lung location: unspecified part of lung Pneumonia type: due to unspecified organism Acute on chronic respiratory failure with hypoxia and hypercapnia J96.21; J96.22 Tobacco use Z72.0
[2020-06-21] MEDS: DOXYCYCLINE HYCLATE 100 MG CAP PO SCH ×2 (16:29→20:23)
[2020-06-21] MEDS: GABAPENTIN 300 MG CAP PO SCH (20:22)
[2020-06-21] MEDS: MONTELUKAST SODIUM 10 MG TABLET PO SCH (20:23)
[2020-06-21] MEDS: guaiFENesin 600 MG TABCR PO SCH (21:09)
[2020-06-22] MEDS: LEVOTHYROXINE SODIUM 50 MCG TABLET PO SCH (05:54)
[2020-06-22] MEDS: ALBUT/IPRATROP 3MG/0.5MG NEB 3 ML VIAL NEB PRN ×2 (07:48→21:02)
[2020-06-22] MEDS: ATORVASTATIN 40 MG TAB PO SCH (08:20)
[2020-06-22] MEDS: VERAPAMIL HCL 120 MG TABCR PO SCH (08:20)
[2020-06-22] MEDS: AMOXICILLIN/CLAVULANATE 875 MG TAB PO SCH (08:21)
[2020-06-22] MEDS: guaiFENesin 600 MG TABCR PO SCH ×2 (08:21→20:34)
[2020-06-22] MEDS: DOXYCYCLINE HYCLATE 100 MG CAP PO SCH ×2 (08:21→20:34)
[2020-06-22] MEDS: SERTRALINE HCL 100 MG TABLET PO SCH (08:21)
[2020-06-22] MEDS: PANTOprazole 40 MG TAB PO SCH (08:21)
[2020-06-22] MEDS: ENOXAPARIN INJ 40 MG/0.4 ML SYR SQ SCH (08:22)
[2020-06-22] MEDS: INSULIN GLARGINE SOLOSTAR 100 UNITS/ML 3 ML PEN SC SCH ×2 (08:24→20:36)
[2020-06-22] MEDS: INSULIN ASPART 100 UNITS/ML 3 ML PEN SC SCH ×4 (08:56→20:36)
[2020-06-22] MEDS: DOCUSATE SODIUM 100 MG CAP PO SCH (08:58)
--- NOTE | 2020-06-22 14:29 | Pulmonology Progress Note ---
Date of Service June 22, 2020 Assessment & Plan (1) Acute exacerbation of chronic obstructive pulmonary disease: CT chest 06/16/2020 personally reviewed: See year centrilobular and paraseptal emphysema, infiltrate appreciated in the right upper lobe with interstitial t hickening. Bilateral pleural effusion, more on the right. Insignificant mediastinal adenopathy --Acute on chronic hypoxic hypercapnic respiratory failure Multifactorial Likely a combination of pneumonia as well as CHF given the elevated BNP Continue with antibiotics. Continue with diuretics to keep the patient negative balance Continue with oxygen limitation to keep oxygen saturation between 88-92% --Severe COPD with emphysema Continue with Trelegy On discharge would recommend azithromycin 250 mg Saturday --Active smoker Advised to quit Plan: Continue with doxycycline for total of 5 days Follow-up 2D echo Continue with flutter valve and guaifenesin Recommend repeating CT scan in 6-8 weeks QTC 431 Recommend adding azithromycin 250 mg Saturday on discharge for h is COPD No further recommendation from pulmonary perspective. Please call if needed. Please note the above document was generated using voice recognition software. It may contain grammatical, syntax or spelling errors.Any formal questions or concerns about the content, text or information contained within the body of this dictation should be directly addressed to the provider for clarification. (2) COPD (chronic obstructive pulmonary disease): COPD type: unspecified COPD Qualified Code(s): J44.9 - Chronic obstructive pulmonary disease, unspecified (3) Pneumonia: Laterality: bilateral Lung location: unspecified part of lung Pneumonia type: due to unspecified organism Qualified Code(s): J18.9 - Pneumonia, unspecified organism (4) Acute on chronic respiratory failure with hypoxia and hypercapnia: (5) Tobacco use: Admission and Anticipated Discharge Date Admission Date: June 16, 2020 Subjective Patient seen and examined at bedside. No acute distress, no adverse events overnight. Patient is in pleasant mood today after he got his belongings from [facility]. States his breathing is much better. He is coughing but not bringing up much phlegm. Denies any chest pain, no headache, no nausea, no vomiting. Good appetite. Review of Systems Review of Systems: All systems reviewed & are unremarkable except as noted in Subjective Physical Exam Physical Exam: Constitutional: No acute distress HEENT: EOMI, PERRLA Respiratory system: Decreased air entry bilaterally, no wheeze, no rhonchi, no crackles CVS: S1-S2 positive, no murmurs or gallops, distant heart sounds Abdomen: Soft, nontender, nondistended, positive bowel sounds x4 Extremities: +2 pulses bilaterally radialis/ dorsalis pedis, no cyanosis, no edema Neuro: Awake alert oriented x3 Psych: Normal mood and affect G/U: No Ortega Skin: no rashes, warm and dry Lymphatic: no cervical or axillary lymphadenopathy Results & Data Results & Data ([facility]) Vital Signs (Past 12 Hours) Vital Signs Temp Pulse Resp BP Pulse Ox 06/22/20 07:49 56 L 20 98 06/22/20 07:19 36.7 C 62 20 123/63 97 06/17/20 06:27 06/20/20 05:32 PG Care Time/CCT Total # of Minutes Spent Total Time Spent with Patient: Total time spent is greater than 50% in coordination of care (as documented) at patient's floor/unit and/or counseling patient: Coding Level of Care Code 26701 Subseq Hosp Care Lvl 3 Diagnoses Acute exacerbation of chronic obstructive pulmonary disease J44.1 COPD (chronic obstructive pulmonary disease) J44.9 COPD type: unspecified COPD Pneumonia J18.9 Laterality: bilateral Lung location: unspecified part of lung Pneumonia type: due to unspecified organism Acute on chronic respiratory failure with hypoxia and hypercapnia J96.21; J96.22 Tobacco use Z72.0
--- NOTE | 2020-06-22 16:04 | Hospitalist Progress Note ---
Date of Service June 22, 2020 Assessment & Plan (1) Respiratory failure, acute and chronic: Acute on chronic hypoxemic respiratory failure: At baseline advanced COPD on 3.5 L oxygen continuous Presented with worsening of hypoxia/respiratory failure : Multifactorial Possible decompensated CHF, symptom improved after diuresis, right upper lobe pneumonia There was concern for aspiration pneumonia given the location of infiltrate/right lung Appreciate input from speech, no evidence of aspiration noted on bedside eval Patient could not tolerate barium swallow evaluation. Appreciate input from pulmonology. Recommends patient should be on chronic suppressive antibiotic therapy Zithromax 250 mg 3 times a week/Saturday Needs total 5 days of doxycycline Patient should continue with flutter valve/guaifenesin Repeat CT chest in 6-8 weeks (2) Diabetes mellitus, type II: At goal. Continue basal bolus insulin while hospitalized. (3) Paroxysmal atrial fibrillation: History of paroxysmal atrial fibrillation off of anticoagulation secondary to a history of bleeding and compliance issues. Continue rate control with verapamil (4) GERD (gastroesophageal reflux disease): Continue pantoprazole per home regimen. (5) Hypothyroidism: Continue levothyroxine per home regimen. (6) COPD (chronic obstructive pulmonary disease): Does not appear to have exacerbation present. Per pulmonology, patient is started on chronic suppressive antibiotic/3 times a week Zithromax treatment (7) Alcohol use: Continued cessation of alcohol recommended. (8) Tobacco use: Continued cessation of tobacco recommended. (9) DVT prophylaxis: Lovenox Full code Disposition: Patient was in [facility] for short-term rehab getting hospitalized for pneumonia hypoxemic respiratory failure. Patient feels his activity status is back to baseline, does not want to return back to rehab, Appreciate PT OT evaluation, recommends patient can be return home with home health, Will need wheelchair van transport with O2 Case management updated Plan to discharge home tomorrow Admission and Anticipated Discharge Date Admission Date: June 16, 2020 Subjective Follow-up visit for acute on chronic hypoxemic respiratory failure/underlying advanced COPD/chronic diastolic heart failure/right upper lobe pneumonia. Patient reports feeling much better today, feels his breathing is back to baseline, on 3.5 L oxygen continuous Cough has improved, nonproductive, no fever or chills No complaint of orthopnea, no chest heaviness or chest discomfort Patient reports he feels like his baseline, at home he only have to work couple of feet to go to the bathroom/kitchen, Be with the physical therapy during this hospital stay, asking for home physical therapy. Does not feel the need to return back to rehab, wants to go home with home health Patient will need wheelchair transport with oxygen, case management updated, plan to discharge home tomorrow after transport is arranged. Patient is agreeable for transportation cost. Review of Systems Review of Systems: All systems reviewed & are unremarkable except as noted in Subjective Physical Exam Physical Exam: Physical exam: General: No acute distress, alert awake oriented x3 HEENT: PERRLA, EOMI, Heart: Regular S1-S2, no carotid bruit, no JVD, no lower extremity edema Lungs: Diminished, no audible wheeze or rales Abdomen: Soft nontender, no organomegaly Extremity: No cyanosis, no deformity, normal strength 5 out of 5 with upper and lower Neuro: No focal neurological deficit normal speech, normal visual field, Motor strength : normal both upper and lower extremity, sensation intact Psych: Alert awake oriented x3, normal affect Results & Data Results & Data ([facility]) Vital Signs (Past 12 Hours) Vital Signs Temp Pulse Resp BP Pulse Ox 06/22/20 07:49 56 L 20 98 06/22/20 07:19 36.7 C 62 20 123/63 97
[2020-06-22] MEDS: MONTELUKAST SODIUM 10 MG TABLET PO SCH (20:34)
[2020-06-22] MEDS: GABAPENTIN 300 MG CAP PO SCH (20:34)
[2020-06-23] MEDS: LEVOTHYROXINE SODIUM 50 MCG TABLET PO SCH (05:37)
--- NOTE | 2020-06-23 08:49 | Hospitalist Progress Note ---
Date of Service June 23, 2020 Assessment & Plan (1) Respiratory failure, acute and chronic: Acute on chronic hypoxemic respiratory failure: At baseline advanced COPD on 3.5 L oxygen continuous Presented with worsening of hypoxia/respiratory failure : Multifactorial Possible decompensated CHF, symptom improved after diuresis, right upper lobe pneumonia There was concern for aspiration pneumonia given the location of infiltrate/right lung Appreciate input from speech, no evidence of aspiration noted on bedside eval Patient could not tolerate barium swallow evaluation. received tx with PO Doxycycline and Augmentin during hospital stay will be discharged on 3 more days of Doxycycline Appreciate input from pulmonology. Recommends patient should be on chronic suppressive antibiotic therapy Zithromax 250 mg 3 times a week/Saturday Patient should continue with flutter valve/guaifenesin Repeat CT chest in 6-8 weeks (2) Diabetes mellitus, type II: At goal. Home medication resumed on discharge (3) Paroxysmal atrial fibrillation: History of paroxysmal atrial fibrillation off of anticoagulation secondary to a history of bleeding and compliance issues . Continue rate control with verapamil (4) GERD (gastroesophageal reflux disease): Continue pantoprazole per home regimen. (5) Hypothyroidism: Continue levothyroxine per home regimen. (6) COPD (chronic obstructive pulmonary disease): Does not appear to have exacerbation present. Per pulmonology, patient is started on chronic suppressive antibiotic/3 times a week Zithromax treatment pt will cont to follow up at pulmonology clinic at [facility] (7) Alcohol use: Continued cessation of alcohol recommended. (8) Tobacco use: Continued cessation of tobacco recommended. (9) DVT prophylaxis: Lovenox Full code Disposition: stable to be discharged home today wheel chair van transport arranged for 10 am today Admission and Anticipated Discharge Date Admission Date: June 16, 2020 Subjective Follow-up visit for acute on chronic hypoxemic respiratory failure/underlying advanced COPD/chronic diastolic heart failure/right upper lobe pneumonia. feeling much better today , breathing status back to baseline ( on 3.5 L 02 cont /home setting ) sitting up at edge of bed , finishing breakfast no complain of SOB , no cough , had an uneventful night stable vitals ready to be discharged to home today Physical Exam Physical Exam: Physical exam: General: No acute distress, alert awake oriented x3 HEENT: PERRLA, EOMI, Heart: Regular S1-S2, no carotid bruit, no JVD, no lower extremity edema Lungs: Diminished, no audible wheeze or rales Abdomen: Soft nontender, no organomegaly Extremity: No cyanosis, no deformity, normal strength 5 out of 5 with upper and lower Neuro: No focal neurological deficit normal speech, normal visual field, Motor strength : normal both upper and lower extremity, sensation intact Psych: Alert awake oriented x3, normal affect Results & Data Results & Data ([facility]) Vital Signs (Past 12 Hours) Vital Signs Temp Pulse Resp BP Pulse Ox 06/23/20 07:16 36.5 C 70 16 115/64 94 06/22/20 23:33 36.6 C 53 L 16 164/75 H 100 06/22/20 21:03 68 18 97
[2020-06-23] MEDS: ATORVASTATIN 40 MG TAB PO SCH (08:51)
[2020-06-23] MEDS: SERTRALINE HCL 100 MG TABLET PO SCH (08:51)
[2020-06-23] MEDS: INSULIN ASPART 100 UNITS/ML 3 ML PEN SC SCH (08:51)
[2020-06-23] MEDS: guaiFENesin 600 MG TABCR PO SCH (08:52)
[2020-06-23] MEDS: PANTOprazole 40 MG TAB PO SCH (08:52)
[2020-06-23] MEDS: ENOXAPARIN INJ 40 MG/0.4 ML SYR SQ SCH (08:52)
[2020-06-23] MEDS: VERAPAMIL HCL 120 MG TABCR PO SCH (08:52)
[2020-06-23] MEDS: DOXYCYCLINE HYCLATE 100 MG CAP PO SCH (08:52)
[2020-06-23] MEDS: DOCUSATE SODIUM 100 MG CAP PO SCH (08:54)
[2020-06-23] MEDS: INSULIN GLARGINE SOLOSTAR 100 UNITS/ML 3 ML PEN SC SCH (08:55)
[2020-06-23] MEDS: ALBUT/IPRATROP 3MG/0.5MG NEB 3 ML VIAL NEB PRN (09:07)
--- NOTE | 2020-06-24 15:08 | Discharge Summary ---
Date of Service June 24, 2020 Admission HPI Per Admitting Provider History obtained from patient and records. Medical history significant for chronic respiratory failure secondary to COPD on home O2, hypertension, PAF off anticoagulation secondary to GI bleed/patient compliance issues, hx PSVT, History TIA as per records, DM2 on oral medications, chronic anemia (baseline hemoglobin of 11), hx urolithiasis, ongoing tobacco/alcohol abuse Recent confinement 3 weeks ago for COPD exacerbation. Patient discharged to [facility] for rehab. Recent ER visit 2 weeks ago for SVT status post conversion after adenosine administration. Last night patient noted worsening cough symptoms productive of junky yellow sputum along with shortness of breath. Substernal pain with coughing. Some nausea symptoms without emesis. Patient denies aspiration. No fever, no chills. Patient denies weight gain. O2 sats 80s at rehab facility. Oxygen requirement up to 6 L per nasal cannula as per patient. Patient brought to the ER for evaluation. Decadron and neb treatment given for COPD exacerbation. Medical History as above Surgical History : Eye surgery, urologic procedures, hip replacement Family History : Heart disease, diabetes Personal/Social history : One pack daily, alcohol abuse as per records, disabled Principal Diagnosis -Acute on chronic hypoxic hypercapnic respiratory failure Multifactorial Likely a combination of pneumonia /acute on chronic diastolic heart failure/advanced COPD On chronic home O2 3.5 L continuous Right upper lobe pneumonia. Discharge Exam Physical exam: General: No acute distress, alert awake oriented x3 HEENT: PERRLA, EOMI, Heart: Regular S1-S2, no carotid bruit, no JVD, no lower extremity edema Lungs: diminished , no wheeze Abdomen: Soft nontender, no organomegaly Extremity: No cyanosis, no deformity, normal strength both upper and lower Neuro: No focal neurological deficit normal speech, Psych: Alert awake oriented x3, normal affect Discharge Data Allergies Allergy/AdvReac Type Severity Reaction Status Date / Time turkey Allergy Unknown Verified 06/16/20 02:15 Consultations 06/16/20 03:24 ED Decision to Admit Stat 06/20/20 17:28 Consult Pulmonology Routine Ordered Studies 06/16/20 02:30 CT angio chest PE protocol Urgent 06/20/20 10:00 Fluoro video [FL video swallow] Routine Hospital Course (1) Respiratory failure, acute and chronic: Acute on chronic hypoxemic respiratory failure: At baseline advanced COPD on 3.5 L oxygen continuous Presented with worsening of hypoxia/respiratory failure : Multifactorial Possible decompensated CHF, symptom improved after diuresis, right upper lobe pneumonia There was concern for aspiration pneumonia given the location of infiltrate/right lung Appreciate input from speech, no evidence of aspiration noted on bedside eval Patient could not tolerate barium swallow evaluation. received tx with PO Doxycycline and Augmentin during hospital stay will be discharged on 3 more days of Doxycycline Appreciate input from pulmonology. Recommends patient should be on chronic suppressive antibiotic therapy Zithromax 250 mg 3 times a week/Saturday Patient should continue with flutter valve/guaifenesin Repeat CT chest in 6-8 weeks (2) Diabetes mellitus, type II: At goal. Home medication resumed on discharge (3) Paroxysmal atrial fibrillation: History of paroxysmal atrial fibrillation off of anticoagulation secondary to a history of bleeding and compliance issues. Continue rate control with verapamil (4) GERD (gastroesophageal reflux disease): Continue pantoprazole per home regimen. (5) Hypothyroidism: Continue levothyroxine per home regimen. (6) COPD (chronic obstructive pulmonary disease): Does not appear to have exacerbation present. Per pulmonology, patient is started on chronic suppressive antibiotic/3 times a week Zithromax treatment pt will cont to follow up at pulmonology clinic at [facility] (7) Alcohol use: Continued cessation of alcohol recommended. (8) Tobacco use: Continued cessation of tobacco recommended. (9) DVT prophylaxis: Lovenox Full code Disposition: stable to be discharged home today wheel chair van transport arranged for 10 am today Total Time Total Time Spent Total Time Spent (In Minutes): 35mins Total Time Includes: Examination of the Patient, Discharge Planning and Medicat ion Reconciliation Discharge Plan Discharge Items Patient Disposition: Home - Home Health Services Reason For Visit: RESP FAILURE Discharge Diagnosis: --Acute on chronic hypoxic hypercapnic respiratory failure Multifactorial Likely a combination of pneumonia /acute on chronic diastolic heart failure/advanced COPD On chronic home O2 3.5 L continuous Right upper lobe pneumonia. Condition on Discharge: Fair Activity: As commented below Activity Comment: As tolerated Non-emergency contact: Primary Care Provider Call non-emergency contact if: you have any medication questions Follow-up/Referrals: Kade Braun DO [Outside Practitioners] - (Date & Time 06/28/2020 11:20 AM Provider Kade Braun DO Department Family [facility] ) Diet: Heart Healthy Addtl Attending Provider Instructions: Please take all medications as instructed on discharge list below. It is recommended that you follow-up with your primary care physician within 1-2 weeks of hospital discharge to ensure you are still doing well. Please call if you have any questions or problems. You can reach a [facility] hospitalist on duty at [facility] 24 hours a day by calling [phone] You are scheduled for your 2nd COVID vaccine on , July 07 at [facility]. Please arrive between 11:30am-1:30pm. Addtl Behavioral Health Consultant Provider Instructions: Take antibiotic azithromycin 250 mg 1 tablet on Saturday for COPD Antibiotic: Doxycycline 100 mg twice daily for 3 more days Continue to use flutter valve Repeat CT chest with contrast in 6-8 weeks continue to follow up with Pulmonology clinic at [facility] Pending Studies at Discharge: No Stand-Alone Forms: My [facility], Smoking Cessation Medications and DC Order Prescriptions: New azithromycin [Zithromax] 250 mg tablet 250 mg PO UD 30 Days Qty: 30 RF: 3 doxycycline hyclate 100 mg Capsule 100 mg PO BID 3 Days Qty: 6 RF: 0 Continued verapamil 120 mg Tablet Extended Release 120 mg PO DAILY RF: 0 levothyroxine 50 mcg Tablet 50 mcg PO DAILY RF: 0 pantoprazole 40 mg Tablet,Delayed Release (Dr/Ec) 40 mg PO DAILY RF: 0 Trelegy Ellipta 100-62.5-25 mcg Blister With Device 1 inh INHALATION DAILY RF: 0 sertraline 100 mg Tablet 100 mg PO DAILY RF: 0 montelukast 10 mg Tablet 10 mg PO PM RF: 0 guaifenesin 200 mg tablet 200 mg PO TID PRN (Reason: cough) Qty: 15 RF: 0 atorvastatin 40 mg tablet 40 mg PO QAM RF: 0 docusate sodium [Colace] 100 mg Capsule 100 mg PO DAILY RF: 0 gabapentin 300 mg capsule 300 mg PO HS RF: 0 metformin 1,000 mg Tablet Extended Release 24hr 1,000 mg PO DAILY RF: 0 ipratropium bromide 0.02 % solution 0.5 mg Inhalation TID Qty: 0 RF: 0 hydroxyzine HCl 50 mg Tablet 50 mg PO Q6 PRN (Reason: anxiety/agitation) RF: 0 acetaminophen 325 mg Tablet 650 mg PO Q6 MDD 3g/24hr PRN (Reason: pain scale 1-4) RF: 0 Combivent Respimat 20-100 mcg/actuation mist 1 puff INHALATION QID RF: 0 albuterol sulfate 2.5 mg /3 mL (0.083 %) solution for nebulization 2.5 mg INHALATION UD PRN (Reason: Shortness Of Breath Or Wheezing) RF: 0 Discharge Orders: Discharge Order (Routine); Ordered 06/23/20 Ordered By: Ria Hammer Admission Data Admit Date/Time: 06/16/20 04:14 Attending Provider: Ria Hammer Admit Provider: Dell Hamilton Primary Care Provider: [place] Other Providers: Dell Hamilton ; [place] ; Jorje Soto Sabrina M. Other Interventions: Discharge Summary Assessment (RN) Last Done: 06/23/20 09:28
== END 2020-06-23 10:39 | disposition home health service (06) | DRG 193 ==
LOC: ED 01:38 → 2N 04:14 → SUATTDRO 04:14 → 2N 04:34 → 3N 06-21 00:34

== ENCOUNTER 2020-12-06 14:26 | Inpatient (IN) ==
[2020-12-06] MEDS ORDERED: ALBUT/IPRATROP 3MG/0.5MG NEB 3 ML VIAL INH STA (14:56)
[2020-12-06] MEDS ORDERED: dexAMETHasone**PF** 10 MG/ML VIAL IV ONE (14:56)
[2020-12-06 15:06] LABS: Basophils # (auto) 0.01 K/uL (0-0.2); Basophils % (auto) 0.2 %; Eosinophils # (auto) 0.19 K/uL (0-0.5); Eosinophils % (auto) 3.1 %; Hematocrit (blood only) 36.2 % (42-52); Hemoglobin 11.5 g/dL (14.0-18.0); Immature Granulocytes # (auto) 0.01 K/uL (0.00-0.02); Immature Granulocytes % (auto) 0.2 %; Lymphocytes # (auto) 0.97 K/uL (1.2-3.4); Lymphocytes % (auto) 15.7 %; Mean Corpuscular Hemoglobin 33.4 pg (25-34); Mean Corpuscular Hgb Conc 31.8 g/dL (32-36); Mean Corpuscular Volume 105.2 fL (80-100); Mean Platelet Volume 11.7 fL (7.4-10.4); Monocytes # (auto) 0.66 K/uL (0.11-0.59); Monocytes % (auto) 10.7 %; Neutrophils # (auto) 4.34 K/uL (1.4-6.5); Neutrophils % (auto) 70.1 %; Platelet Count 123 K/uL (130-400); RDW Coefficient of Variation 13.6 % (11.5-14.5); RDW Standard Deviation 51.9 fL (36.4-46.3); Red Blood Count 3.44 M/uL (4.7-6.1); White Blood Count 6.18 K/uL (4.8-10.8)
[2020-12-06 15:14] LABS: Alanine Aminotransferase 22 U/L (12-78); Albumin Level 3.6 gm/dl (3.4-5.0); Aspartate Aminotransferase 27 U/L (15-37); BUN Creatinine Ratio 19.8 (10-20); Blood Urea Nitrogen 24 mg/dl (7-18); Calcium 9.1 mg/dl (8.5-10.1); Carbon Dioxide 34 mmol/L (21-32); Chloride 99 mmol/L (98-107); Est GFR (African American) 71.6 ml/min; Est GFR (Non-African American) 61.8 ml/min; Glucose 91 mg/dl (70-99); Magnesium 2.5 mg/dl (1.8-2.4); Potassium 4.4 mmol/L (3.5-5.1); Sodium 138 mmol/L (136-145)
[2020-12-06 15:18] LABS: Albumin Globulin Ratio 1.1 (0.9-2); Alkaline Phosphatase 142 U/L (45-117); Bilirubin,Total 0.4 mg/dl (0.2-1); Globulin 3.2 gm/dl (2.5-4.0); Total Protein 6.8 gm/dl (6.4-8.2); Troponin I < 0.015 ng/ml (0-0.045)
--- NOTE | 2020-12-06 15:38 | Emergency Department Note ---
Impression & Plan Acute on chronic respiratory failure with hypoxia and hypercapnia, COPD (chronic obstructive pulmonary disease), Paroxysmal atrial fibrillation ED Provider Note Provider: Eugene Quintanilla MD DATE OF SERVICE: 12/06/2020 CHIEF COMPLAINT:Short of breath, shaky, weak HISTORY OF PRESENT ILLNESS: Patient is a 70-year-old gentleman history of pneumonia, COPD on chronic 3-1/2 to 4 L of oxygen, daily alcohol use, hypertension, type 2 diabetes, paroxysmal atrial fibrillation presenting here today via ambulance from home. States over past 4 months has been having a chronic cough and feeling a bit more short of breath. Seemed worse today and he was unable to get up out of bed as he started feel more short of breath and shaky. States he did not fall develop near syncopal. Denies significant chest pain or abdominal pain. Patient states he been using his home nebulizers. Patient states the tremors he has been having have been ongoing for several weeks and can affect the arms and the legs at times. EMS reports the patient had an elevated CO2 upon arrival the patient states he has been a bit more foggy last several days. He reports he is vaccinated for Covid. No fevers reported. Denies leg swelling. REVIEW OF SYSTEMS: A total of 10 review of systems was obtained and negative exc ept as stated above in the HPI. PAST MEDICAL HISTORY: As noted above MEDICATIONS: Reviewed home medications SOCIAL HISTORY: Smoker, daily single beer, lives by himself PHYSICAL EXAM: GENERAL: alert and oriented in no acute distress on stretcher fatigued appearing Head: normocephalic and atraumatic EYES: No injection, discharge or icterus. NECK: Trachea midline. Supple. ENT: Mucous membranes pink and moist. LUNGS: Airway patent. No retractions but mildly tachypneic. Breath sounds with expiratory wheeze HEART: Regular rate and rhythm. No chest wall tenderness ABDOMEN: Soft and non-tender, without guarding or rebound. SKIN: Acyanotic, warm, dry, without rashes EXTREMITIES: Without swelling, tenderness or deformity NEUROLOGICAL: No focal deficits. No aphasia. No facial droop or slurred speech. Occasional intention tremor noted in the left upper extremity on exam (patient states this varies at times) EK bpm sinus rhythm without PVC or PAC. No acute ST segment elevation or depression with a QTC of 416. CONTINUOUS CARDIAC MONITORING: was ordered and showed a heart rate of 60s to 90s bpm in normal sinus rhythm with some brief transient episodes of A. fib (paroxysmal history reported in chart) Patient's laboratory studies and imaging reviewed. Differential includes Infection, dehydration, metabolic abnormality, hypo/hyperglycemia, electrolyte disturbance, anemia, hypoxia, cardiac sources, intracerebral event, toxicologic, neurologic, as well as other pathologies. IMPRESSION/MEDICAL DECISION MAKING: Patient with expiratory wheeze underlying history of COPD states a little bit more foggy and with weakness and more shortness of breath. Oxygen requirement is not significantly elevated and lower suspicion at this time this represents acute PE. Significant wheezing given DuoNeb here as well as some steroid. Covid test was sent although he is vaccinated. Question COPD exacerbation versus possible pneumonia. EKG without acute ischemic changes and troponin is undetectable which is reassuring. No significant leukocytosis and minimal anemia. VBG does show evidence of a low pH of 7.2 and hypercarbia with a CO2 of 95. Renal function appears at baseline. Covid test again was sent. Given his elevated CO2 and complaints will recommend a course of BiPAP to address the hypercarbia before this worsens. No believe he suffered a stroke or acute CVA and doubly would hemorrhaging at this time. Discussed the patient recommendation for admission and he was in agreement with this plan. Hospitalist team was consulted and patient mental status improved with the initiation of BiPAP. Less likely to be acute pneumonia or infectious but covered at this time for atypicals with a dose of IV azithromycin. DIAGNOSIS: COPD exacerbation, hypercarbic respiratory failure DISPOSITION: Hospitalist will evaluate Patient was agreeable with this plan. Critical Care I have personally spent 35 minutes of critical care time in the direct management of this patient. This includes bedside care, interpretation of diagnostic studies, and testing, discussion with consultants, patient, and other required patient management activities. These 35 minutes is in excess of all separately billable procedures. Past Med/Surg History Medical History (Updated 12/06/20 @ 22:19 by Eugene Quintanilla M.D.) Alcohol use BPH (benign prostatic hyperplasia) COPD (chronic obstructive pulmonary disease) Depression Diabetes mellitus, type II Dyslipidemia Esophageal stenosis "s/p dilation June 2016" GERD (gastroesophageal reflux disease) HTN (hypertension) Hypothyroidism Lung nodule Mood disorder Paroxysmal atrial fibrillation Superficial thrombophlebitis "2009" TIA (transient ischemic attack) "1982" Surgical History (Updated 12/06/20 @ 19:41 by Cleo Martin PA-C) S/P bronchoscopy Family History Other Diabetes Social History Smoking Status: Smoker, status unknown Tobacco Type: Cigarettes Cigarettes Per Day: 20; Second Hand Exposure: No; Hx Alcohol Use: Yes (per record) Alcohol type: beer Alcohol Intake Frequency Comment: 2 beers a day Hx Substance Use: No Preferred Language: Ghanaian Communication Ability: Effective Crisis Counselor Required: No Beliefs That Will Affect Care: None marital status: Single Current Living Situation: Other Current Living Situation Comment: unknown-pt has caregivers that come tu/thr How many Children do You have: 0 Feels Safe at Home: Yes Assistive Devices: Denture - Upper, Denture - Lower and Glasses Allergies Allergies Allergy/AdvReac Type Severity Reaction Status Date / Time turkey Allergy Unknown Verified 12/06/20 15:22 Home Meds Home Medications Medication Instructions Recorded Confirmed docusate sodium 100 mg capsule 100 mg PO QAM 01/28/18 12/06/20 (Colace) gabapentin 300 mg capsule 300 mg PO HS 01/28/18 12/06/20 fluticasone fur. 100 mcg-umeclid 1 inh INHALATION QAM 02/13/19 12/06/20 62.5 mcg-vilant 25 mcg inhalat.powder (Trelegy Ellipta) levothyroxine 50 mcg tablet 50 mcg PO DAILY 02/13/19 12/06/20 sertraline 100 mg tablet 100 mg PO QAM 02/13/19 12/06/20 verapamil 120 mg tablet,extended 120 mg PO QAM 02/13/19 12/06/20 release albuterol sulfate 2.5 mg INHALATION Q4 PRN 06/16/20 12/06/20 ipratropium 20 mcg-albuterol 100 1 puff INHALATION QID PRN 06/16/20 12/06/20 mcg/actuation mist for inhalation (Combivent Respimat) atorvastatin 40 mg tablet 40 mg PO DAILY 12/06/20 12/06/20 lisinopril 10 mg tablet 10 mg PO DAILY 12/06/20 12/06/20 montelukast 10 mg tablet 10 mg PO DAILY 12/06/20 12/06/20 Previous Rx's Medication Instructions Recorded azithromycin 250 mg tablet 250 mg PO UD 30 Days #30 tab 06/22/20 (Zithromax) pantoprazole 40 mg tablet,delayed 40 mg PO DAILY #30 tab 06/28/20 release (Protonix) Results & Data (ED) Vital Signs Vital Signs - 24 hr 12/06/20 14:43 12/06/20 14:47 12/06/20 14:54 Temperature 36.5 C Temperature Source Axillary Pulse Rate 77 Pulse Rate [Apical] 65 Pulse Rhythm [Apical] Regular Pulse Strength [Apical] Normal Respiratory Rate 24 22 Respiratory Effort / Characteristics Short of Breath SOB on Exertion Non-Labored Respiratory Depth Normal Respiratory Pattern Blood Pressure 109/75 Blood Pressure [Left Arm] 107/59 L Blood Pressure Mean 86 Blood Pressure Mean [Left Arm] 75 Pulse Oximetry 95 97 Oxygen Delivery Method Nasal Cannula Nasal Cannula Nasal Cannula Oxygen Flow Rate 3 3 3 Fraction of Inspired Oxygen Sepsis Recent Fever Within 48 Hours No Sepsis New/Unexplained Change in Mental Status No Sepsis Action Taken by Nursing No Action Required 12/06/20 15:15 12/06/20 15:23 12/06/20 16:27 Temperature Temperature Source Pulse Rate 79 Pulse Rate [Apical] 62 Pulse Rhythm [Apical] Pulse Strength [Apical] Respiratory Rate 21 18 Respiratory Effort / Characteristics Spontaneous Spontaneous Respiratory Depth Normal Respiratory Pattern Regular Blood Pressure Blood Pressure [Left Arm] Blood Pressure Mean Blood Pressure Mean [Left Arm] Pulse Oximetry 100 93 99 Oxygen Delivery Method Nasal Cannula Nasal Cannula Oxygen Flow Rate 3 3 Fraction of Inspired Oxygen 30 Sepsis Recent Fever Within 48 Hours Sepsis New/Unexplained Change in Mental Status Sepsis Action Taken by Nursing Laboratory Data Result diagrams: 12/06/20 14:30 12/06/20 14:30 Lab Results 12/06/20 12/06/20 12/06/20 Range/Units 14:30 14:30 14:30 WBC 6.18 (4.8-10.8) K/uL RBC 3.44 L (4.7-6.1) M/uL Hgb 11.5 L (14.0-18.0) g/dL Hct 36.2 L (42-52) % MCV 105.2 H (80-100) fL MCH 33.4 (25-34) pg MCHC 31.8 L (32-36) g/dL RDW Std Deviation 51.9 H (36.4-46.3) fL RDW Coeff of Daquan 13.6 (11.5-14.5) % Plt Count 123 L (130-400) K/uL MPV 11.7 H (7.4-10.4) fL Immature Gran % (Auto) 0.2 % Neut % (Auto) 70.1 % Lymph % (Auto) 15.7 % Berg[place] % (Auto) 10.7 % Eos % (Auto) 3.1 % Baso % (Auto) 0.2 % Neut # (Auto) 4.34 (1.4-6.5) K/uL Lymph # (Auto) 0.97 L (1.2-3.4) K/uL Berg[place] # (Auto) 0.66 H (0.11-0.59) K/uL Eos # (Auto) 0.19 (0-0.5) K/uL Baso # (Auto) 0.01 (0-0.2) K/uL Immature Gran # (Auto) 0.01 (0.00-0.02) K/uL PT 8.8 L (9.0-12.0) Seconds INR 0.9 (0.9-1.1) VBG pH (7.36-7.41) VBG pCO2 (38-50) mmHg VBG pO2 mmHg VBG HCO3 mmol/L VBG O2 Saturation % VBG Base Excess mEq/L Barometric Pressure mm/Hg Sodium 138 (136-145) mmol/L Potassium 4.4 (3.5-5.1) mmol/L Chloride 99 (98-107) mmol/L Carbon Dioxide 34 H (21-32) mmol/L Anion Gap 4.0 (3-11) BUN 24 H (7-18) mg/dl Creatinine 1.20 (0.6-1.4) mg/dl Est Cr Clr Drug Dosing Not Reportable Est GFR ( Amer) 71.6 ml/min Est GFR (Non-Af Amer) 61.8 ml/min BUN/Creatinine Ratio 19.8 (10-20) Glucose 91 (70-99) mg/dl Calcium 9.1 (8.5-10.1) mg/dl Magnesium 2.5 H (1.8-2.4) mg/dl Total Bilirubin 0.4 (0.2-1) mg/dl AST 27 (15-37) U/L ALT 22 (12-78) U/L Alkaline Phosphatase 142 H (45-117) U/L Troponin I < 0.015 (0-0.045) ng/ml Total Protein 6.8 (6.4-8.2) gm/dl Albumin 3.6 (3.4-5.0) gm/dl Globulin 3.2 (2.5-4.0) gm/dl Albumin/Globulin Ratio 1.1 (0.9-2) COVID-19 Eval Order SARS-CoV-2 (PCR) (Negative) 12/06/20 12/06/20 12/06/20 Range/Units 15:05 15:05 15:28 WBC (4.8-10.8) K/uL RBC (4.7-6.1) M/uL Hgb (14.0-18.0) g/dL Hct (42-52) % MCV (80-100) fL MCH (25-34) pg MCHC (32-36) g/dL RDW Std Deviation (36.4-46.3) fL RDW Coeff of Daquan (11.5-14.5) % Plt Count (130-400) K/uL MPV (7.4-10.4) fL Immature Gran % (Auto) % Neut % (Auto) % Lymph % (Auto) % Berg[place] % (Auto) % Eos % (Auto) % Baso % (Auto) % Neut # (Auto) (1.4-6.5) K/uL Lymph # (Auto) (1.2-3.4) K/uL Berg[place] # (Auto) (0.11-0.59) K/uL Eos # (Auto) (0-0.5) K/uL Baso # (Auto) (0-0.2) K/uL Immature Gran # (Auto) (0.00-0.02) K/uL PT (9.0-12.0) Seconds INR (0.9-1.1) VBG pH 7.21 L (7.36-7.41) VBG pCO2 95 H (38-50) mmHg VBG pO2 24 mmHg VBG HCO3 37 mmol/L VBG O2 Saturation < 60.0 % VBG Base Excess 7.1 mEq/L Barometric Pressure 722.4 mm/Hg Sodium (136-145) mmol/L Potassium (3.5-5.1) mmol/L Chloride (98-107) mmol/L Carbon Dioxide (21-32) mmol/L Anion Gap (3-11) BUN (7-18) mg/dl Creatinine (0.6-1.4) mg/dl Est Cr Clr Drug Dosing Est GFR ( Amer) ml/min Est GFR (Non-Af Amer) ml/min BUN/Creatinine Ratio (10-20) Glucose (70-99) mg/dl Calcium (8.5-10.1) mg/dl Magnesium (1.8-2.4) mg/dl Total Bilirubin (0.2-1) mg/dl AST (15-37) U/L ALT (12-78) U/L Alkaline Phosphatase (45-117) U/L Troponin I (0-0.045) ng/ml Total Protein (6.4-8.2) gm/dl Albumin (3.4-5.0) gm/dl Globulin (2.5-4.0) gm/dl Albumin/Globulin Ratio (0.9-2) COVID-19 Eval Order Covid19 at [facility] SARS-CoV-2 (PCR) NEGATIVE (Negative) Administered Medications Albuterol (Albut/Ipratrop 3mg/0.5mg Neb 3 Ml Vial) 3 ml NEB QIDR SAE Stop: 01/05/21 18:59 Last Admin: 12/06/20 18:19 Dose: 3 ml Documented by: [id number] Enoxaparin Sodium (Enoxaparin Inj 40 Mg/0.4 Ml Syr) 40 mg SQ Q24H SAE Stop: 01/05/21 18:59 Last Admin: 12/06/20 20:01 Dose: 40 mg Documented by: [id number] Gabapentin (Gabapentin 300 Mg Cap) 300 mg PO HS SAE Stop: 01/05/21 20:59 Last Admin: 12/06/20 21:27 Dose: 300 mg Documented by: [id number] Discontinued Medications Albuterol (Albut/Ipratrop 3mg/0.5mg Neb 3 Ml Vial) 12 ml INH ONE STA Stop: 12/06/20 14:57 Last Admin: 12/06/20 15:16 Dose: 12 ml Documented by: [id number] Dexamethasone Sodium Phosphate (DexamethasonePf 10 Mg/Ml Vial) 6 mg IV NOW ONE Stop: 12/06/20 14:57 Last Admin: 12/06/20 15:14 Dose: 6 mg Documented by: [id number] Azithromycin 500 mg/ Dextrose 255 mls @ 127.5 mls/hr IV NOW STA Stop: 12/06/20 18:40 Last Infusion: 12/06/20 20:01 Dose: 0 mls/hr Documented by: [id number] Admin: 12/06/20 17:37 Dose: 127.5 mls/hr Documented by: [id number] Imaging Data Radiologist's Impression: Chest X-Ray 12/06/20 14:56 XR chest 1V portable HISTORY: Dyspnea COMPARISON: Chest 06/28/2020. FINDINGS: No pneumothorax. Trace bilateral pleural effusions. The lungs are mildly hyperexpanded. The heart is normal in size. Mild diffuse chronic interstitial thickening and emphysema again noted. No evidence for pulmonary edema. No new focal lung consolidations to suggest pneumonia. IMPRESSION: 1. Trace bilateral pleural effusions. 2. Mild chronic interstitial thickening and mild emphysema. ACT 112: Negative or not required by law. Electronically signed by: Joshua Guzman M.D. 12/06/2020 4:00 PM Discharge Plan Visit Data Chief Complaint: Shortness of Breath/Dyspnea Stated Complaint: COPD ED Provider: Eugene Quintanilla Discharge Problem: Acute on chronic respiratory failure with hypoxia and hypercapnia, COPD (chronic obstructive pulmonary disease), Paroxysmal atrial fibrillation Patient Disposition: Admitted As Inpatient Discharge Instructions Interventions: ED Discharge Assessment Last Done: 12/06/20 18:00
[2020-12-06 15:41] LABS: INR 0.9 (0.9-1.1); Prothrombin Time 8.8 Seconds (9.0-12.0)
[2020-12-06 15:43] LABS: Base Excess VBG 7.1 mEq/L; HCO3 VBG 37 mmol/L; Oxygen Saturation VBG < 60.0 %; PCO2 VBG 95 mmHg (38-50); PO2 VBG 24 mmHg; pH VBG 7.21 (7.36-7.41)
--- NOTE | 2020-12-06 16:01 | XRay Report ---
XR chest 1V portable HISTORY: Dyspnea COMPARISON: Chest 06/28/2020. FINDINGS: No pneumothorax. Trace bilateral pleural effusions. The lungs are mildly hyperexpanded. The heart is normal in size. Mild diffuse chronic interstitial thickening and emphysema again noted. No evidence for pulmonary edema. No new focal lung consolidations to suggest pneumonia. IMPRESSION: 1. Trace bilateral pleural effusions. 2. Mild chronic interstitial thickening and mild emphysema. ACT 112: Negative or not required by law. Electronically signed by: Joshua Guzman M.D. 12/06/2020 4:00 PM
[2020-12-06] MEDS ORDERED: AZITHROMYCIN 500 MG in DEXTROSE 5% 250 ML IV STA (16:41)
--- NOTE | 2020-12-06 16:56 | History & Physical Report ---
Date of Service December 06, 2020 Assessment & Plan (1) Acute on chronic respiratory failure with hypoxia and hypercapnia: (2) COPD exacerbation: Plan: This is a 70-year-old male with past medical history of COPD, chronic respiratory failure on 3-4 L nasal cannula O2, hypothyroidism, type 2 diabetes, paroxysmal atrial fibrillation, hypertension, ongoing tobacco use, BPH and other medical problems listed below who presents with progressive shortness of breath and cough for the past 2 weeks and was found to have COPD exacerbation. Follows with Marissa gonzales has not come to appointment since last January. ABG - pH 7.3, pco2 71, HCO3 34 Bipap started, continue to monitor respiratory function closely Given 6mg IV Dexamethasone, duoneb and Azithromycin in ED Continue Bipap, duonebs QIDR, IV Azithromycin, IV solumedrol 40mg Q8H, Trelegy inh Afebrile, no evidence of PNA on imaging Repeat ABG in AM (3) Lung nodule: Plan: Outpatient CT chest wo con from 2018 showing spiculated left upper lobe lung nodule measuring up to 1.5 cm that was highly concerning for malignancy PET-CT or percutaneous biopsy recommended at that time. Patient not compliant with either Will obtain routine CT chest wo con (4) HTN (hypertension): Plan: Normotensive. Continue lisinopril, verapamil (5) Diabetes mellitus, type II: Plan: A1c 5.1 in April 2020, no longer on diabetic medications, carb consistent diet (6) Paroxysmal atrial fibrillation: Plan: Not on anticoagulation secondary to a history of bleeding and compliance issues. Continue verapamil (7) Alcohol dependence: Plan: History of rehab earlier this year. Serum alcohol level pending No signs/sx of withdrawal At risk protocol ordered (8) Hypothyroidism: Plan: Continue levothyroxine (9) BPH (benign prostatic hyperplasia): Plan: Bladder scan PRN (10) Mood disorder: Plan: Continue sertraline DVT Ppx: SQ Lovenox Code status: FULL PCP: Matthias Dispo: Admitted to PCU Patient seen in collaboration with Dr. Herrera. Please see addendum. History of Present Illness Chief Complaint: Shortness of breath Primary Care Provider: NO PCP This is a 70-year-old male with past medical history of COPD, chronic respiratory failure on 3-4 L nasal cannula O2, hypothyroidism, type 2 diabetes, paroxysmal atrial fibrillation, hypertension, ongoing tobacco use, BPH and other medical problems listed below who presents with progressive shortness of breath and cough for the past 2 weeks. Kindred worse this morning and was unable to get out of bed on his own due to feeling dyspneic and shaky. Was brought via in via EMS. Has been using home nebulizers and O2. Tremors have been present for the past few weeks and he notices them in both arms and legs intermittently. Has felt more "foggy" over the past few days. Denies any fever, chills, headache, CP or abdominal pain. No dysuria or diarrhea. No falls. Did received covid vaccination. Lives alone and ambulates with walker. Allergies Allergy/AdvReac Type Severity Reaction Status Date / Time turkey Allergy Unknown Verified 12/06/20 15:22 Home Medications Medication Instructions Recorded Confirmed Type docusate sodium 100 mg capsule 100 mg PO QAM 01/28/18 12/06/20 History (Colace) gabapentin 300 mg capsule 300 mg PO HS 01/28/18 12/06/20 History fluticasone fur. 100 mcg-umeclid 1 inh INHALATION QAM 02/13/19 12/06/20 History 62.5 mcg-vilant 25 mcg inhalat.powder (Trelegy Ellipta) levothyroxine 50 mcg tablet 50 mcg PO DAILY 02/13/19 12/06/20 History sertraline 100 mg tablet 100 mg PO QAM 02/13/19 12/06/20 History verapamil 120 mg tablet,extended 120 mg PO QAM 02/13/19 12/06/20 History release albuterol sulfate 2.5 mg INHALATION Q4 PRN 06/16/20 12/06/20 History ipratropium 20 mcg-albuterol 100 1 puff INHALATION QID PRN 06/16/20 12/06/20 History mcg/actuation mist for inhalation (Combivent Respimat) azithromycin 250 mg tablet 250 mg PO UD 30 Days #30 tab 06/22/20 12/06/20 Rx (Zithromax) pantoprazole 40 mg tablet,delayed 40 mg PO DAILY #30 tab 06/28/20 12/06/20 Rx release (Protonix) atorvastatin 40 mg tablet 40 mg PO DAILY 12/06/20 12/06/20 History lisinopril 10 mg tablet 10 mg PO DAILY 12/06/20 12/06/20 History montelukast 10 mg tablet 10 mg PO DAILY 12/06/20 12/06/20 History Past Med/Surg History Medical History (Updated 12/06/20 @ 19:55 by Cleo Martin PA-C) Alcohol use BPH (benign prostatic hyperplasia) COPD (chronic obstructive pulmonary disease) Depression Diabetes mellitus, type II Dyslipidemia Esophageal stenosis "s/p dilation June 2016" GERD (gastroesophageal reflux disease) HTN (hypertension) Hypothyroidism Lung nodule Mood disorder Paroxysmal atrial fibrillation Superficial thrombophlebitis "2009" TIA (transient ischemic attack) "1982" Surgical History (Updated 12/06/20 @ 19:41 by Cleo Martin PA-C) S/P bronchoscopy Family History Other Diabetes Social History Smoking Status: Smoker, status unknown Tobacco Type: Cigarettes Cigarettes Per Day: 20; Second Hand Exposure: No; Hx Alcohol Use: Yes (per record) Alcohol type: beer Alcohol Intake Frequency Comment: 2 beers a day Hx Substance Use: No Preferred Language: Turkish Communication Ability: Effective Program Director Cable Television Required: No Beliefs That Will Affect Care: None marital status: Single Current Living Situation: Other Current Living Situation Comment: unknown-pt has caregivers that come tues/thrusday How many Children do You have: 0 Feels Safe at Home: Yes Assistive Devices: Denture - Upper, Denture - Lower and Glasses Review of Systems Review of Systems: At least ten systems reviewed and negative except as noted in the HPI. Physical Exam Physical Exam: General Appearance: WD/WN, vitals as above, appears acutely ill, lethargic but responsive to questions, wearing bipap mask, BUE tremors Head: normocephalic, atraumatic Eyes: normal inspection, PERRL, conjunctivae normal, anicteric sclerae ENT: external ear and nose normal, bipap mask Neck: normal visual inspection, trachea midline, no thyromegaly Respiratory: increased respiratory effort, expiratory wheezes noted. No rales. No accessory muscle use Cardiovascular: regular rate, rhythm, no murmur, normal peripheral pulses, no BLE edema. Vessels: no JVD Chest: normal inspection of chest Abdomen/GI: normal bowel sounds, soft, nontender, no hepatosplenomegaly Extremities/Musculoskeletal: no cyanosis or clubbing, extremities motor strength 5/5 Neurologic: PERRL, EOMI, accommodation nl, no face palsy, no dysarthria, CN's II-XI intact bilaterally and moves all extremities Psychiatric: A+Ox3, euthymic affect Skin: no rashes, normal color, warm/dry Results & Data Results & Data ([facility]) Vital Signs (Past 12 Hours) Vital Signs Temp Pulse Pulse Resp BP BP Pulse Ox 12/06/20 16:27 79 18 99 12/06/20 15:23 62 21 93 12/06/20 15:15 100 12/06/20 14:54 65 22 107/59 L 97 12/06/20 14:47 36.5 C 77 24 109/75 95 Laboratory Results Short CBC 12/06/20 Range/Units 14:30 WBC 6.18 (4.8-10.8) K/uL Hgb 11.5 L (14.0-18.0) g/dL Hct 36.2 L (42-52) % Plt Count 123 L (130-400) K/uL BMP 12/06/20 14:30 Sodium 138 Potassium 4.4 Chloride 99 Carbon Dioxide 34 H BUN 24 H Creatinine 1.20 Glucose 91 Calcium 9.1 Cardiac Enzymes 12/06/20 Range/Units 14:30 Troponin I < 0.015 (0-0.045) ng/ml Liver Function 12/06/20 Range/Units 14:30 Total Bilirubin 0.4 (0.2-1) mg/dl AST 27 (15-37) U/L ALT 22 (12-78) U/L Alkaline Phosphatase 142 H (45-117) U/L Albumin 3.6 (3.4-5.0) gm/dl Diagnostic Findings Chest X-Ray 12/06/20 14:56 XR chest 1V portable HISTORY: Dyspnea COMPARISON: Chest 06/28/2020. FINDINGS: No pneumothorax. Trace bilateral pleural effusions. The lungs are mildly hyperexpanded. The heart is normal in size. Mild diffuse chronic interstitial thickening and emphysema again noted. No evidence for pulmonary edema. No new focal lung consolidations to suggest pneumonia. IMPRESSION: 1. Trace bilateral pleural effusions. 2. Mild chronic interstitial thickening and mild emphysema. ACT 112: Negative or not required by law. Electronically signed by: Joshua Guzman M.D. 12/06/2020 4:00 PM Code Status & VTE Plan VTE Prophylaxis Plan VTE Prophylaxis will be ordered: Yes Supervising Physician Co-Signing Physician Notes Pt is a 70 M with hx of COPD on home oxygen 3.5-4 L, Afib, Hypothyroidism, HTN, DMII, BPH, CKD admitted for hypoxia and weakness Exam: On BiPAP Lungs: difficult exam due to being on BiPAP, fair air entry b/l, no wheezing Cards: normal S1/S2, no murmur Abd: ND, soft, NT B/L LE: trace pitting edema A/P: Hypercapnia respiratory failure: -2/2 COPD exacerbation -Will continue the pt on BiPAP and repeat ABG - will transisition to [place] as pt tolerates -Duoneb q4hrs, steroid burst and zpak --- not suspecting pneumonia Weakness: -likely 2/2 COPD exacerbation -pt walks with walker at baseline -will get home PT/OT hx of Pulm nodule: -CT chest from 12/2018: New spiculated left upper lobe lung nodule measuring up to 1.5 cm. This is highly concerning for malignancy. Recommend PET-CT or percutaneous biopsy. Note patient is at high risk for pneumothorax due to severe emphysema. ---- pt never had a follow up CT chest therefore will get inpt CT chest w/o contrast Agree with A/P by Cleo Martin PA-C
[2020-12-06 17:08] LABS: HCO3 ABG 34 mmol/L (19-24); Oxygen Saturation ABG 92.6 % (90-95); PCO2 ABG 71 mmHg (35-46); PO2 ABG 63 mmHg (80-95)
[2020-12-06 17:09] LABS: Allen Test Pos (Pos)
[2020-12-06] MEDS: ALBUT/IPRATROP 3MG/0.5MG NEB 3 ML VIAL NEB SCH (18:19)
[2020-12-06] MEDS ORDERED: ONDANSETRON INJ 2 MG/ML 2 ML VIAL IV PRN (18:46)
[2020-12-06] MEDS ORDERED: POLYETHYLENE (MIRALAX) 17 GM PACK PO PRN (18:46)
[2020-12-06] MEDS ORDERED: ACETAMINOPHEN 325 MG TAB PO PRN (18:46)
[2020-12-06] MEDS: ENOXAPARIN INJ 40 MG/0.4 ML SYR SQ SCH (20:01)
[2020-12-06] MEDS ORDERED: LORazepam 1 MG TAB PO PRN (20:01)
--- NOTE | 2020-12-06 21:09 | CT Scan Report ---
CT chest diagnostic wo con CT DOSE: 297.63 mGy.cm CLINICAL HISTORY: 70 years-old Male with h/o CHANTELL nodule in the past. Follow-up study in a patient wi th pulmonary nodules TECHNIQUE: Multiaxial CT images of the chest were performed without contrast. A dose lowering techni que was utilized adhering to the principles of ALARA. COMPARISON: CTA chest 06/16/2020, 05/24/2020 FINDINGS: Unremarkable thyroid. No adenopathy. The heart is normal in size without pericardial effusi on. Atherosclerosis of the aorta without aneurysm. Trace pleural effusions. No pneumothorax. Severe e mphysema. Bronchial wall thickening suggestive of bronchitis with bibasilar mucous plugging. Scattere d calcified pulmonary granulomata. Linear scarring of the right upper lobe is redemonstrated. No susp icious pulmonary nodules or masses are identified. Large pulmonary bulla of the lung bases are again noted. No acute process of the imaged upper abdomen. 7 mm right renal calculus. 4 mm calculus of the superio r pole left kidney. Unremarkable soft tissues. Moderate compression fractures of the T8, and T9 verte bral bodies are new from prior. With mild inferior endplate compression at T7. No associated retropul honorio or significant paravertebral edema. Chronic T10 and T12 compression deformities with chronic sup erior endplate Schmorl's node at T11. IMPRESSION: 1. Severe emphysema with bronchial wall thickening suggestive of bronchitis. Right basilar mucous plu gging is again noted. 2. Trace pleural effusions. 3. Bilateral renal calculi. 4. Moderate acute versus subacute T8 and T9 compression deformities are new from 06/16/2020. No retropu lsion or appreciable paravertebral edema. ACT 112: Negative or not required by law. Electronically signed by: Leodan Wills M.D. 12/06/2020 9:07 PM
[2020-12-06] MEDS: GABAPENTIN 300 MG CAP PO SCH (21:27)
[2020-12-06 23:25] LABS: Appearance Urine Clear (Clear); Bacteria Urine Automated Negative (Negative); Bilirubin Urine Negative (Negative); Blood Urine Negative (Negative); Color Urine Yellow; Epithelial Cell Urine Auto 20-30 /lpf (0-5); Glucose Urine UA Negative (Negative); Ketones Urine Trace (Negative); Leukocyte Esterase Urine Negative (Negative); Nitrite Urine Negative (Negative); Protein Urine Trace (Negative); RBC Urine Automated 0-4 /hpf (0-4); Specific Gravity Urine 1.018 (1.000-1.030); Urobilinogen Urine Negative (Negative); pH Urine 5.5 (4.5-7.5)
[2020-12-07] MEDS: LEVOTHYROXINE SODIUM 50 MCG TABLET PO SCH (05:11)
--- NOTE | 2020-12-07 05:28 | Electrocardiogram Report ---
Test Reason : Blood Pressure : / mmHG Vent. Rate : 062 BPM Atrial Rate : 062 BPM P-R Int : 108 ms QRS Dur : 084 ms QT Int : 410 ms P-R-T Axes : 004 080 077 degrees QTc Int : 416 ms Poor data quality, interpretation may be adversely affected Sinus rhythm with short MI Incomplete right bundle branch block When compared with ECG of 16-JUN-2020 01:42, No significant change was found Confirmed by Chris Hermosillo ([id number]) on 12/07/2020 5:28:28 AM Referred By: Confirmed By:Chris Hermosillo
[2020-12-07 06:48] LABS: Base Excess ABG 9.6 mEq/L (-9-1.8); HCO3 ABG 37 mmol/L (19-24); Oxygen Saturation ABG 90.5 % (90-95); PCO2 ABG 70 mmHg (35-46); PO2 ABG 59 mmHg (80-95); pH ABG 7.34 (7.35-7.45)
[2020-12-07 06:50] LABS: Allen Test Pos (Pos)
[2020-12-07 07:02] LABS: Hemoglobin 10.4 g/dL (14.0-18.0); Mean Corpuscular Hemoglobin 32.7 pg (25-34); Mean Corpuscular Hgb Conc 32.5 g/dL (32-36); Mean Corpuscular Volume 100.6 fL (80-100); Mean Platelet Volume 12.6 fL (7.4-10.4); Platelet Count 108 K/uL (130-400); Platelet Estimate Decreased (Normal); RDW Coefficient of Variation 13.5 % (11.5-14.5); RDW Standard Deviation 50.2 fL (36.4-46.3); Red Blood Count 3.18 M/uL (4.7-6.1); White Blood Count 6.57 K/uL (4.8-10.8)
[2020-12-07 07:27] LABS: BUN Creatinine Ratio 25.7 (10-20); Calcium 8.8 mg/dl (8.5-10.1); Creatinine Clr Calc Pharmacy 53.5 ml/min; Est GFR (African American) 86.1 ml/min; Est GFR (Non-African American) 74.3 ml/min
[2020-12-07] MEDS: ALBUT/IPRATROP 3MG/0.5MG NEB 3 ML VIAL NEB SCH ×4 (07:32→20:13)
[2020-12-07] MEDS: lisinopril 10 MG TAB PO SCH (08:33)
[2020-12-07] MEDS: ATORVASTATIN 40 MG TAB PO SCH (08:33)
[2020-12-07] MEDS: PANTOprazole 40 MG TAB PO SCH (08:33)
[2020-12-07] MEDS: DOCUSATE SODIUM 100 MG CAP PO SCH (08:33)
[2020-12-07] MEDS: MONTELUKAST SODIUM 10 MG TABLET PO SCH (08:33)
[2020-12-07] MEDS: SERTRALINE HCL 100 MG TABLET PO SCH (08:33)
[2020-12-07] MEDS: VERAPAMIL HCL 120 MG TABCR PO SCH (08:34)
[2020-12-07] MEDS: FLUTICASONE FUROATE 100MCG 14 PUFFS/INHALER INH SCH (08:50)
[2020-12-07] MEDS: UMECLIDINIUM/VILANTEROL 62.5/25MCG 7 PUFFS/INHALER INH SCH (08:51)
--- NOTE | 2020-12-07 08:53 | Hospitalist Progress Note ---
Date of Service December 07, 2020 Assessment & Plan (1) Acute on chronic respiratory failure with hypoxia and hypercapnia: (2) COPD exacerbation: Plan: This is a 70-year-old male with past medical history of COPD, chronic respiratory failure on 3-4 L nasal cannula O2, hypothyroidism, type 2 diabetes, paroxysmal atrial fibrillation, hypertension, ongoing tobacco use, BPH and other medical problems listed below who presents with progressive shortness of breath and cough for the past 2 weeks and was found to have COPD exacerbation. Follows with Marissa gonzales has not come to appointment since last January. ABG - pH 7.3, pco2 71, HCO3 34 on admission (however per ED note pH 7.2, pCO2 90s) Bipap started, continue to monitor respiratory function closely Given 6mg IV Dexamethasone, duoneb and Azithromycin in ED Continued Bipap overnight This AM tried NC deastted to low 80s (12/07) Duonebs QIDR, IV Azithromycin, IV solumedrol 40mg Q8H, Trelegy inh Afebrile, no evidence of PNA on imaging Repeat ABG this AM seems improved pH 7.34 PCO2 70 (12/07) However patient lethargic, does not also appropriately stat ABG and chest x-ray ordered, pulmonary medicine contacted Repeat CXR (12/07) IMPRESSION: 1. Severe emphysema. No consolidation. 2. Trace right pleural effusion. (3) Lung nodule: Plan: Outpatient CT chest wo con from 2019 showing spiculated left upper lobe lung nodule measuring up to 1.5 cm that was highly concerning for malignancy PET-CT or percutaneous biopsy recommended at that time. Patient not compliant with either Will obtain routine CT chest wo con CT chest: IMPRESSION: 1. Severe emphysema with bronchial wall thickening suggestive of bronchitis. Right basilar mucous plugging is again noted. 2. Trace pleural effusions. 3. Bilateral renal calculi. 4. Moderate acute versus subacute T8 and T9 compression deformities are new from 06/16/2020. No retropulsion or appreciable paravertebral edema. (4) HTN (hypertension): Plan: Normotensive. Continue lisinopril, verapamil if can take PO (5) Diabetes mellitus, type II: Plan: A1c 5.1 in April 2020, no longer on diabetic medications, carb consistent diet (6) Paroxysmal atrial fibrillation: Plan: Not on anticoagulation secondary to a history of bleeding and compliance issues. Continue verapamil if can take PO (7) Alcohol dependence: Plan: History of rehab earlier this year. Serum alcohol level pending No signs/sx of withdrawal At risk protocol ordered (8) Hypothyroidism: Plan: Continue levothyroxine (9) BPH (benign prostatic hyperplasia): Plan: Bladder scan PRN (10) Mood disorder: Plan: Continue sertraline DVT Ppx: SQ Lovenox Code status: FULL PCP: Dr. Rizzo Dispo: Admitted to PCU Admission and Anticipated Discharge Date Admission Date: December 06, 2020 Subjective Patient seen in follow-up of acute on chronic respiratory failure, with hypoxia, hypercapnia - believed to be secondary to COPD exacerbation ABG this morning improved however patient confused, not answering appropriately Was on BiPAP overnight, uses trilogy at home, when tried to be on nasal cannula 4 L, desaturated to low 80s per nursing staff Currently laying in bed, on BiPAP, not answering appropriately Stat repeat ABG ordered, stat chest x-ray ordered Pulmonary medicine contacted Review of Systems Review of Systems: Unobtainable due to cognitive status Physical Exam Physical Exam: General Appearance: thin male, appears chronically ill, currently on Bipap mask, eyes open but barely responding to questions Head: normocephalic, atraumatic Eyes: normal inspection, EOMI, PERRL ENT: external ear and nose normal, bipap mask Neck: normal visual inspection Respiratory: on Bipap, + diffuse expiratory wheezes Cardiovascular: regular rate, rhythm, no murmur noted, normal peripheral pulses Chest: normal inspection of chest Abdomen/GI: normal bowel sounds, soft, nontender Extremities/Musculoskeletal: moves extremities Neurologic: Awake, with eyes open, however barely responding to questions, PERRL, EOMI,no face palsy,moves all extremities Skin: no rashes, normal color, warm/dry Results & Data Results & Data ([facility]) Vital Signs (Past 12 Hours) Vital Signs Temp Pulse Pulse Resp BP Pulse Ox 12/07/20 08:35 36.8 C 71 30 H 145/85 H 89 L 12/07/20 07:33 67 20 96 12/07/20 04:47 36.6 C 83 16 145/82 H 96 12/07/20 02:52 61 12/06/20 22:47 36.5 C 68 16 153/67 H 95 10/26/21 22:42 67 20 94 Laboratory Results 12/07/20 12/07/20 12/07/20 Range/Units 07:20 06:35 06:35 WBC (4.8-10.8) K/uL RBC (4.7-6.1) M/uL Hgb (14.0-18.0) g/dL Hct (42-52) % MCV (80-100) fL MCH (25-34) pg MCHC (32-36) g/dL RDW Std Deviation (36.4-46.3) fL RDW Coeff of Daquan (11.5-14.5) % Plt Count (130-400) K/uL MPV (7.4-10.4) fL Immature Gran % (Auto) % Neut % (Auto) % Lymph % (Auto) % [place] % (Auto) % Eos % (Auto) % Baso % (Auto) % Neut # (Auto) (1.4-6.5) K/uL Lymph # (Auto) (1.2-3.4) K/uL [place] # (Auto) (0.11-0.59) K/uL Eos # (Auto) (0-0.5) K/uL Baso # (Auto) (0-0.2) K/uL Immature Gran # (Auto) (0.00-0.02) K/uL Platelet Estimate (Normal) PT (9.0-12.0) Seconds INR (0.9-1.1) ABG pH 7.34 L (7.35-7.45) ABG pCO2 70 H (35-46) mmHg ABG pO2 59 L (80-95) mmHg ABG HCO3 37 H (19-24) mmol/L ABG O2 Saturation 90.5 (90-95) % ABG Base Excess 9.6 H (-9-1.8) mEq/L Hussein Test Pos (Pos) VBG pH (7.36-7.41) VBG pCO2 (38-50) mmHg VBG pO2 mmHg VBG HCO3 mmol/L VBG O2 Saturation % VBG Base Excess mEq/L Barometric Pressure 727.5 mm/Hg Oxygen Given 12L 30% Sodium 136 (136-145) mmol/L Potassium 5.0 (3.5-5.1) mmol/L Chloride 98 (98-107) mmol/L Carbon Dioxide 34 H (21-32) mmol/L Anion Gap 4.0 (3-11) BUN 27 H (7-18) mg/dl Creatinine 1.03 (0.6-1.4) mg/dl Est Cr Clr Drug Dosing 53.5 Est GFR ( Amer) 86.1 ml/min Est GFR (Non-Af Amer) 74.3 ml/min BUN/Creatinine Ratio 25.7 H (10-20) Glucose 101 H (70-99) mg/dl POC Glucose 111 H (70-99) mg/dl Calcium 8.8 (8.5-10.1) mg/dl Magnesium (1.8-2.4) mg/dl Total Bilirubin (0.2-1) mg/dl AST (15-37) U/L ALT (12-78) U/L Alkaline Phosphatase (45-117) U/L Troponin I (0-0.045) ng/ml Total Protein (6.4-8.2) gm/dl Albumin (3.4-5.0) gm/dl Globulin (2.5-4.0) gm/dl Albumin/Globulin Ratio (0.9-2) Urine Color Urine Appearance (Clear) Urine pH (4.5-7.5) Ur Specific [place] (1.000-1.030) Urine Protein (Negative) Urine Glucose (UA) (Negative) Urine Ketones (Negative) Urine Blood (Negative) Urine Nitrite (Negative) Urine Bilirubin (Negative) Urine Urobilinogen (Negative) Ur Leukocyte Esterase (Negative) Urine WBC (Auto) (0-5) /hpf Urine RBC (Auto) (0-4) /hpf U Hyaline Cast (Auto) (0-5) /lpf U Epithel Cells (Auto) (0-5) /lpf Urine Bacteria (Auto) (Negative) Granular Casts (0) /lpf COVID-19 Eval Order SARS-CoV-2 (PCR) (Negative) 12/07/20 12/06/20 12/06/20 Range/Units 06:35 23:15 20:21 WBC 6.57 (4.8-10.8) K/uL RBC 3.18 L (4.7-6.1) M/uL Hgb 10.4 L (14.0-18.0) g/dL Hct 32.0 L (42-52) % MCV 100.6 H (80-100) fL MCH 32.7 (25-34) pg MCHC 32.5 (32-36) g/dL RDW Std Deviation 50.2 H (36.4-46.3) fL RDW Coeff of Daquan 13.5 (11.5-14.5) % Plt Count 108 L (130-400) K/uL MPV 12.6 H (7.4-10.4) fL Immature Gran % (Auto) % Neut % (Auto) % Lymph % (Auto) % [place] % (Auto) % Eos % (Auto) % Baso % (Auto) % Neut # (Auto) (1.4-6.5) K/uL Lymph # (Auto) (1.2-3.4) K/uL [place] # (Auto) (0.11-0.59) K/uL Eos # (Auto) (0-0.5) K/uL Baso # (Auto) (0-0.2) K/uL Immature Gran # (Auto) (0.00-0.02) K/uL Platelet Estimate Decreased L (Normal) PT (9.0-12.0) Seconds INR (0.9-1.1) ABG pH (7.35-7.45) ABG pCO2 (35-46) mmHg ABG pO2 (80-95) mmHg ABG HCO3 (19-24) mmol/L ABG O2 Saturation (90-95) % ABG Base Excess (-9-1.8) mEq/L Hussein Test (Pos) VBG pH (7.36-7.41) VBG pCO2 (38-50) mmHg VBG pO2 mmHg VBG HCO3 mmol/L VBG O2 Saturation % VBG Base Excess mEq/L Barometric Pressure mm/Hg Oxygen Given Sodium (136-145) mmol/L Potassium (3.5-5.1) mmol/L Chloride (98-107) mmol/L Carbon Dioxide (21-32) mmol/L Anion Gap (3-11) BUN (7-18) mg/dl Creatinine (0.6-1.4) mg/dl Est Cr Clr Drug Dosing Est GFR ( Amer) ml/min Est GFR (Non-Af Amer) ml/min BUN/Creatinine Ratio (10-20) Glucose (70-99) mg/dl POC Glucose 180 H (70-99) mg/dl Calcium (8.5-10.1) mg/dl Magnesium (1.8-2.4) mg/dl Total Bilirubin (0.2-1) mg/dl AST (15-37) U/L ALT (12-78) U/L Alkaline Phosphatase (45-117) U/L Troponin I (0-0.045) ng/ml Total Protein (6.4-8.2) gm/dl Albumin (3.4-5.0) gm/dl Globulin (2.5-4.0) gm/dl Albumin/Globulin Ratio (0.9-2) Urine Color Yellow Urine Appearance Clear (Clear) Urine pH 5.5 (4.5-7.5) Ur Specific [place] 1.018 (1.000-1.030) Urine Protein Trace H (Negative) Urine Glucose (UA) Negative (Negative) Urine Ketones Trace H (Negative) Urine Blood Negative (Negative) Urine Nitrite Negative (Negative) Urine Bilirubin Negative (Negative) Urine Urobilinogen Negative (Negative) Ur Leukocyte Esterase Negative (Negative) Urine WBC (Auto) 1-5 (0-5) /hpf Urine RBC (Auto) 0-4 (0-4) /hpf U Hyaline Cast (Auto) 5-10 H (0-5) /lpf U Epithel Cells (Auto) 20-30 H (0-5) /lpf Urine Bacteria (Auto) Negative (Negative) Granular Casts 1-5 H (0) /lpf COVID-19 Eval Order SARS-CoV-2 (PCR) (Negative) 12/06/20 12/06/20 12/06/20 Range/Units 16:54 15:28 15:05 WBC (4.8-10.8) K/uL RBC (4.7-6.1) M/uL Hgb (14.0-18.0) g/dL Hct (42-52) % MCV (80-100) fL MCH (25-34) pg MCHC (32-36) g/dL RDW Std Deviation (36.4-46.3) fL RDW Coeff of Daquan (11.5-14.5) % Plt Count (130-400) K/uL MPV (7.4-10.4) fL Immature Gran % (Auto) % Neut % (Auto) % Lymph % (Auto) % [place] % (Auto) % Eos % (Auto) % Baso % (Auto) % Neut # (Auto) (1.4-6.5) K/uL Lymph # (Auto) (1.2-3.4) K/uL [place] # (Auto) (0.11-0.59) K/uL Eos # (Auto) (0-0.5) K/uL Baso # (Auto) (0-0.2) K/uL Immature Gran # (Auto) (0.00-0.02) K/uL Platelet Estimate (Normal) PT (9.0-12.0) Seconds INR (0.9-1.1) ABG pH 7.30 L (7.35-7.45) ABG pCO2 71 H (35-46) mmHg ABG pO2 63 L (80-95) mmHg ABG HCO3 34 H (19-24) mmol/L ABG O2 Saturation 92.6 (90-95) % ABG Base Excess 6.0 H (-9-1.8) mEq/L Hussein Test Pos (Pos) VBG pH 7.21 L (7.36-7.41) VBG pCO2 95 H (38-50) mmHg VBG pO2 24 mmHg VBG HCO3 37 mmol/L VBG O2 Saturation < 60.0 % VBG Base Excess 7.1 mEq/L Barometric Pressure 723.0 722.4 mm/Hg Oxygen Given 30% FIO2 Sodium (136-145) mmol/L Potassium (3.5-5.1) mmol/L Chloride (98-107) mmol/L Carbon Dioxide (21-32) mmol/L Anion Gap (3-11) BUN (7-18) mg/dl Creatinine (0.6-1.4) mg/dl Est Cr Clr Drug Dosing Est GFR ( Amer) ml/min Est GFR (Non-Af Amer) ml/min BUN/Creatinine Ratio (10-20) Glucose (70-99) mg/dl POC Glucose (70-99) mg/dl Calcium (8.5-10.1) mg/dl Magnesium (1.8-2.4) mg/dl Total Bilirubin (0.2-1) mg/dl AST (15-37) U/L ALT (12-78) U/L Alkaline Phosphatase (45-117) U/L Troponin I (0-0.045) ng/ml Total Protein (6.4-8.2) gm/dl Albumin (3.4-5.0) gm/dl Globulin (2.5-4.0) gm/dl Albumin/Globulin Ratio (0.9-2) Urine Color Urine Appearance (Clear) Urine pH (4.5-7.5) Ur Specific [place] (1.000-1.030) Urine Protein (Negative) Urine Glucose (UA) (Negative) Urine Ketones (Negative) Urine Blood (Negative) Urine Nitrite (Negative) Urine Bilirubin (Negative) Urine Urobilinogen (Negative) Ur Leukocyte Esterase (Negative) Urine WBC (Auto) (0-5) /hpf Urine RBC (Auto) (0-4) /hpf U Hyaline Cast (Auto) (0-5) /lpf U Epithel Cells (Auto) (0-5) /lpf Urine Bacteria (Auto) (Negative) Granular Casts (0) /lpf COVID-19 Eval Order SARS-CoV-2 (PCR) NEGATIVE (Negative) 12/06/20 12/06/20 12/06/20 Range/Units 15:05 14:30 14:30 WBC (4.8-10.8) K/uL RBC (4.7-6.1) M/uL Hgb (14.0-18.0) g/dL Hct (42-52) % MCV (80-100) fL MCH (25-34) pg MCHC (32-36) g/dL RDW Std Deviation (36.4-46.3) fL RDW Coeff of Daquan (11.5-14.5) % Plt Count (130-400) K/uL MPV (7.4-10.4) fL Immature Gran % (Auto) % Neut % (Auto) % Lymph % (Auto) % [place] % (Auto) % Eos % (Auto) % Baso % (Auto) % Neut # (Auto) (1.4-6.5) K/uL Lymph # (Auto) (1.2-3.4) K/uL [place] # (Auto) (0.11-0.59) K/uL Eos # (Auto) (0-0.5) K/uL Baso # (Auto) (0-0.2) K/uL Immature Gran # (Auto) (0.00-0.02) K/uL Platelet Estimate (Normal) PT 8.8 L (9.0-12.0) Seconds INR 0.9 (0.9-1.1) ABG pH (7.35-7.45) ABG pCO2 (35-46) mmHg ABG pO2 (80-95) mmHg ABG HCO3 (19-24) mmol/L ABG O2 Saturation (90-95) % ABG Base Excess (-9-1.8) mEq/L Hussein Test (Pos) VBG pH (7.36-7.41) VBG pCO2 (38-50) mmHg VBG pO2 mmHg VBG HCO3 mmol/L VBG O2 Saturation % VBG Base Excess mEq/L Barometric Pressure mm/Hg Oxygen Given Sodium 138 (136-145) mmol/L Potassium 4.4 (3.5-5.1) mmol/L Chloride 99 (98-107) mmol/L Carbon Dioxide 34 H (21-32) mmol/L Anion Gap 4.0 (3-11) BUN 24 H (7-18) mg/dl Creatinine 1.20 (0.6-1.4) mg/dl Est Cr Clr Drug Dosing Not Reportable Est GFR ( Amer) 71.6 ml/min Est GFR (Non-Af Amer) 61.8 ml/min BUN/Creatinine Ratio 19.8 (10-20) Glucose 91 (70-99) mg/dl POC Glucose (70-99) mg/dl Calcium 9.1 (8.5-10.1) mg/dl Magnesium 2.5 H (1.8-2.4) mg/dl Total Bilirubin 0.4 (0.2-1) mg/dl AST 27 (15-37) U/L ALT 22 (12-78) U/L Alkaline Phosphatase 142 H (45-117) U/L Troponin I < 0.015 (0-0.045) ng/ml Total Protein 6.8 (6.4-8.2) gm/dl Albumin 3.6 (3.4-5.0) gm/dl Globulin 3.2 (2.5-4.0) gm/dl Albumin/Globulin Ratio 1.1 (0.9-2) Urine Color Urine Appearance (Clear) Urine pH (4.5-7.5) Ur Specific [place] (1.000-1.030) Urine Protein (Negative) Urine Glucose (UA) (Negative) Urine Ketones (Negative) Urine Blood (Negative) Urine Nitrite (Negative) Urine Bilirubin (Negative) Urine Urobilinogen (Negative) Ur Leukocyte Esterase (Negative) Urine WBC (Auto) (0-5) /hpf Urine RBC (Auto) (0-4) /hpf U Hyaline Cast (Auto) (0-5) /lpf U Epithel Cells (Auto) (0-5) /lpf Urine Bacteria (Auto) (Negative) Granular Casts (0) /lpf COVID-19 Eval Order Covid19 at [facility] SARS-CoV-2 (PCR) (Negative) 12/06/20 Range/Units 14:30 WBC 6.18 (4.8-10.8) K/uL RBC 3.44 L (4.7-6.1) M/uL Hgb 11.5 L (14.0-18.0) g/dL Hct 36.2 L (42-52) % MCV 105.2 H (80-100) fL MCH 33.4 (25-34) pg MCHC 31.8 L (32-36) g/dL RDW Std Deviation 51.9 H (36.4-46.3) fL RDW Coeff of Daquan 13.6 (11.5-14.5) % Plt Count 123 L (130-400) K/uL MPV 11.7 H (7.4-10.4) fL Immature Gran % (Auto) 0.2 % Neut % (Auto) 70.1 % Lymph % (Auto) 15.7 % [place] % (Auto) 10.7 % Eos % (Auto) 3.1 % Baso % (Auto) 0.2 % Neut # (Auto) 4.34 (1.4-6.5) K/uL Lymph # (Auto) 0.97 L (1.2-3.4) K/uL [place] # (Auto) 0.66 H (0.11-0.59) K/uL Eos # (Auto) 0.19 (0-0.5) K/uL Baso # (Auto) 0.01 (0-0.2) K/uL Immature Gran # (Auto) 0.01 (0.00-0.02) K/uL Platelet Estimate (Normal) PT (9.0-12.0) Seconds INR (0.9-1.1) ABG pH (7.35-7.45) ABG pCO2 (35-46) mmHg ABG pO2 (80-95) mmHg ABG HCO3 (19-24) mmol/L ABG O2 Saturation (90-95) % ABG Base Excess (-9-1.8) mEq/L Hussein Test (Pos) VBG pH (7.36-7.41) VBG pCO2 (38-50) mmHg VBG pO2 mmHg VBG HCO3 mmol/L VBG O2 Saturation % VBG Base Excess mEq/L Barometric Pressure mm/Hg Oxygen Given Sodium (136-145) mmol/L Potassium (3.5-5.1) mmol/L Chloride (98-107) mmol/L Carbon Dioxide (21-32) mmol/L Anion Gap (3-11) BUN (7-18) mg/dl Creatinine (0.6-1.4) mg/dl Est Cr Clr Drug Dosing Est GFR ( Amer) ml/min Est GFR (Non-Af Amer) ml/min BUN/Creatinine Ratio (10-20) Glucose (70-99) mg/dl POC Glucose (70-99) mg/dl Calcium (8.5-10.1) mg/dl Magnesium (1.8-2.4) mg/dl Total Bilirubin (0.2-1) mg/dl AST (15-37) U/L ALT (12-78) U/L Alkaline Phosphatase (45-117) U/L Troponin I (0-0.045) ng/ml Total Protein (6.4-8.2) gm/dl Albumin (3.4-5.0) gm/dl Globulin (2.5-4.0) gm/dl Albumin/Globulin Ratio (0.9-2) Urine Color Urine Appearance (Clear) Urine pH (4.5-7.5) Ur Specific [place] (1.000-1.030) Urine Protein (Negative) Urine Glucose (UA) (Negative) Urine Ketones (Negative) Urine Blood (Negative) Urine Nitrite (Negative) Urine Bilirubin (Negative) Urine Urobilinogen (Negative) Ur Leukocyte Esterase (Negative) Urine WBC (Auto) (0-5) /hpf Urine RBC (Auto) (0-4) /hpf U Hyaline Cast (Auto) (0-5) /lpf U Epithel Cells (Auto) (0-5) /lpf Urine Bacteria (Auto) (Negative) Granular Casts (0) /lpf COVID-19 Eval Order SARS-CoV-2 (PCR) (Negative) Medications Administered Current Inpatient Medications Acetaminophen (Acetaminophen 325 Mg Tab) 650 mg PO Q4H PRN PRN Reason: Pain or Fever Stop: 01/05/21 18:45 Albuterol (Albut/Ipratrop 3mg/0.5mg Neb 3 Ml Vial) 3 ml NEB QIDR [facility] Stop: 01/05/21 18:59 Last Admin: 12/07/20 07:32 Dose: 3 ml Documented by: Atorvastatin Calcium (Atorvastatin 40 Mg Tab) 40 mg PO DAILY [facility] Stop: 01/06/21 08:59 Last Admin: 12/07/20 08:33 Dose: Not Given Documented by: Docusate Sodium (Docusate Sodium 100 Mg Cap) 100 mg PO QAM [facility] Stop: 01/06/21 08:59 Last Admin: 12/07/20 08:33 Dose: Not Given Documented by: Enoxaparin Sodium (Enoxaparin Inj 40 Mg/0.4 Ml Syr) 40 mg SQ Q24H [facility] Stop: 01/05/21 18:59 Last Admin: 12/06/20 20:01 Dose: 40 mg Documented by: Fluticasone Furoate (Fluticasone Furoate 100mcg 14 Puffs/Inhaler) 1 puffs INH DAILY [facility]; Protocol Stop: 01/06/21 08:59 Last Admin: 12/07/20 08:50 Dose: Not Given Documented by: Gabapentin (Gabapentin 300 Mg Cap) 300 mg PO HS [facility] Stop: 01/05/21 20:59 Last Admin: 12/06/20 21:27 Dose: 300 mg Documented by: Azithromycin 500 mg/ Dextrose 255 mls @ 127.5 mls/hr IV Q24H [facility] Stop: 12/14/20 16:59 Levothyroxine Sodium (Levothyroxine Sodium 50 Mcg Tablet) 50 mcg PO DAILYBB [facility] Stop: 01/06/21 06:29 Last Admin: 12/07/20 05:11 Dose: 50 mcg Documented by: Lisinopril (Lisinopril 10 Mg Tab) 10 mg PO DAILY [facility] Stop: 01/06/21 08:59 Last Admin: 12/07/20 08:33 Dose: Not Given Documented by: Lorazepam (Lorazepam 1 Mg Tab) 1 mg PO ONE PRN; Protocol PRN Reason: EtoH Withdrawal AWSS 6-10 Methylprednisolone (Methylprednisolone 40 Mg/Ml Vial) 40 mg IV Q8H [facility] Stop: 01/06/21 08:59 Montelukast Sodium (Montelukast Sodium 10 Mg Tablet) 10 mg PO DAILY [facility] Stop: 01/06/21 08:59 Last Admin: 12/07/20 08:33 Dose: Not Given Documented by: Ondansetron HCl (Ondansetron Inj 2 Mg/Ml 2 Ml Vial) 4 mg IV Q6H PRN PRN Reason: Nausea Stop: 01/05/21 18:45 Pantoprazole Sodium (Pantoprazole 40 Mg Tab) 40 mg PO DAILY [facility] Stop: 01/06/21 08:59 Last Admin: 12/07/20 08:33 Dose: Not Given Documented by: Polyethylene Glycol (Polyethylene (Miralax) 17 Gm Pack) 17 gm PO DAILY PRN PRN Reason: Constipation Stop: 01/05/21 18:45 Sertraline HCl (Sertraline Hcl 100 Mg Tablet) 100 mg PO QAM [facility] Stop: 01/06/21 08:59 Last Admin: 12/07/20 08:33 Dose: Not Given Documented by: Umeclidinium/Vilanterol (Umeclidinium/Vilanterol 62.5/25mcg 7 Puffs/Inhaler) 1 puffs INH DAILY [facility]; Protocol Stop: 01/06/21 08:59 Last Admin: 12/07/20 08:51 Dose: Not Given Documented by: Verapamil HCl (Verapamil Hcl 120 Mg Tabcr) 120 mg PO QAM [facility] Stop: 01/06/21 08:59 Last Admin: 12/07/20 08:34 Dose: Not Given Documented by:
[2020-12-07] MEDS ORDERED: NON-FORMULARY MEDICATION (Fluticasone-Umeclidin-Vilanter [Trelegy Ellipta] 100-62.5-25 mcg INH SCH (09:00)
--- NOTE | 2020-12-07 09:41 | XRay Report ---
XR chest 1V portable CLINICAL HISTORY: Respiratory failure. COMPARISON STUDY: Chest radiograph and chest CT December 06, 2020. FINDINGS: Severe emphysema is noted with lung hyperexpansion. There is no consolidation. No pneumotho rax or pleural effusion is noted. There is no evidence for pulmonary edema. Trace right pleural effus ion is present. IMPRESSION: 1. Severe emphysema. No consolidation. 2. Trace right pleural effusion. ACT 112: Negative or not required by law. Electronically signed by: Cam Perez M.D. 12/07/2020 9:39 AM
[2020-12-07 10:01] LABS: Base Excess ABG 10.3 mEq/L (-9-1.8); HCO3 ABG 38 mmol/L (19-24); Oxygen Saturation ABG 96.1 % (90-95); PCO2 ABG 69 mmHg (35-46); PO2 ABG 88 mmHg (80-95); pH ABG 7.36 (7.35-7.45)
[2020-12-07 10:03] LABS: Allen Test Pos (Pos)
[2020-12-07] MEDS: methylPREDNISolone 40 MG in SYRINGE 0 ML IV SCH ×2 (10:12→16:40)
[2020-12-07 10:31] LABS: Hematocrit (blood only) 30.7 % (42-52); Mean Corpuscular Hemoglobin 32.7 pg (25-34); Mean Corpuscular Volume 100.3 fL (80-100); Mean Platelet Volume 11.9 fL (7.4-10.4); Platelet Count 118 K/uL (130-400); RDW Coefficient of Variation 13.6 % (11.5-14.5); RDW Standard Deviation 49.8 fL (36.4-46.3); Red Blood Count 3.06 M/uL (4.7-6.1); White Blood Count 8.36 K/uL (4.8-10.8)
[2020-12-07 10:43] LABS: Mean Corpuscular Hgb Conc 32.6 g/dL (32-36)
[2020-12-07 10:49] LABS: Albumin Level 3.4 gm/dl (3.4-5.0); Calcium 8.9 mg/dl (8.5-10.1); Creatinine Clr Calc Pharmacy 56.2 ml/min; Est GFR (African American) 91.4 ml/min; Est GFR (Non-African American) 78.9 ml/min; Magnesium 2.4 mg/dl (1.8-2.4); Potassium 4.5 mmol/L (3.5-5.1)
--- NOTE | 2020-12-07 10:49 | CT Scan Report ---
CT head/brain wo con CLINICAL HISTORY: 70 years-old Male with AMS. Acutely altered mental status TECHNIQUE: Multiple axial CT images of the head were obtained without contrast. A dose lowering tech nique was utilized adhering to the principles of ALARA. CT DOSE: 1382.10 mGy.cm COMPARISON: Head CT 02/16/2019 FINDINGS: Motion degraded exam. The study was then repeated which was also motion degraded. No acute intracrani al hemorrhage, midline shift, intracranial mass, hydrocephalus, territorial ischemia or abnormal extr a-axial collection. Age-related involutional changes. White matter hypodensities suggestive of chroni c microvascular ischemic disease. 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 The calvarium is intact. Prior bilateral lens repair. The paranasal sinuses, mastoid air cells, and m iddle ear cavities are clear. IMPRESSION: Motion degraded exam. No acute intracranial abnormality. ACT 112: Negative or not required by law. The above report was generated using voice recognition software. It may contain grammatical, syntax o r spelling errors. Electronically signed by: Leodan Wills M.D. 12/07/2020 10:47 AM
[2020-12-07 10:51] LABS: Albumin Globulin Ratio 1.1 (0.9-2); Bilirubin,Total 0.6 mg/dl (0.2-1); Phosphorus 2.5 mg/dl (2.5-4.9); Total Protein 6.4 gm/dl (6.4-8.2)
--- NOTE | 2020-12-07 11:30 | Pulmonary Consultation ---
Date of Consultation December 07, 2020 Assessment & Plan (1) COPD (chronic obstructive pulmonary disease): COPD type: unspecified COPD Qualified Code(s): J44.9 - Chronic obstructive pulmonary disease, unspecified (2) Acute on chronic respiratory failure with hypoxia and hypercapnia: (3) Lung nodule: Attending: Dr. Arias Impression: This is a 70-year-old male under the chronic care of [facility] pulmonary and sleep medicine clinic. Outpatient work-up has been performed by [facility]. Please see HPI regarding previous studies. Recommendations: 1. Chronic respiratory failure with hypercapnia and hypoxia: Patient has a history of sleep disorder as well as COPD with chronic hypoxia and hypercapnia. He has been prescribed trilogy noninvasive ventilation and is followed by the [facility] sleep lab. Settings on the trilogy are AVAPS-AE with an IPAP of 18 and an EPAP of 6. Currently an order is in for BiPAP for the patient at 10/5 per protocol with a targeted minute ventilation of 8 to 10 L. We will continue on BiPAP during the hospital stay and discharged home on trilogy per [facility]'s recommendation. 2. COPD: Gold classification D. Severe obstruction with emphysema on CT scan. Patient has been on Trelegy inhaler and prefers Combivent. He should be on ICS /AC/LABA. While inpatient continue DuoNeb as needed for shortness of breath and wheezes. Would treat with scheduled Brio Ellipta (ICS/LABA) and Incruse Ellipta (AC) while inpatient and discharged on Combivent. Follow-up with the outpatient pulmonary office at [facility]. I would target an SaO2 of 88 to 92% while inpatient due to severe COPD. We will continue with steroids and azithromycin for COPD exacerbation. 3. Altered mental status: ABGs reveal a consistent acidosis. pH on ABG this morning was 7.34 with a PCO2 of 70. We will continue on BiPAP as listed above to try and correct the patient's respiratory acidosis. CT scan of the head showed no specific abnormalities although there was motion artifact. We will continue to work the patient up for dementia/delirium and treat underlying disorders. 4. Tobacco abuse: Patient admits to ongoing daily cigarette smoking. We will c ontinue to encourage complete abstinence from tobacco products. We will continue to encourage not to smoke with oxygen. Case discussed with Dr. Arias. Please refer to his addendum for further re commendations and corrections. History of Present Illness Reason for Consultation: COPD exacerbation/hypercapnia Attending Physician: Adiel Garrison MD History of Present Illness Attending: Dr. Arias This is a 70-year-old male with a past medical history including COPD group D, hypercapnia, hypoxia, paroxysmal atrial fibrillation, history of respiratory bronchiolitis and interstitial lung disease, diabetes type 2, nephropathy, current tobacco use disorder, BPH, ectopic atrial tachycardia, acquired hypothyroidism, chronic rhinitis, mixed dyslipidemia, hypertension, left upper lobe pulmonary nodule, GERD, major depressive disorder. The patient is a known hypercapnic patient with chronic supplemental oxygen use of 4 L/min continuously. Patient was most recently seen by [facility] pulmonary group 01/14/2019. He was following up for right upper lobe nodule. The bronchoscopy was performed 01/04/2014 and was negative/nondiagnostic. Most recent pulmonary function tests appear to be from 01/23/2019. Interpretation: Spirometry revealed very severe obstruction by ATS criteria. No significant acute bronchodilator response. Flow volume loops were obstructive. Lung volumes show the total lung capacity was increased consistent with hyperinflation. RV/TLC ratio is increased consistent with air trapping. Diffusion capacity was severely reduced. No recent pulmonary follow-up. Patient seen by PCP Dr. Kade Braun 09/02/2020 where patient was requesting Combivent instead of Trelegy. At the office visit the patient had an SaO2 of 87% on 3 L/min of supplemental oxygen via nasal cannula. Review of notes from [facility] sleep medicine disorder clinic revealed the patient previously had trilogy noninvasive ventilator therapy. DME supplier at that time was [facility] in [place]. Average IPAP at that time was 18 with an EPAP of 6. Patient was wearing 7 hours per night for 3-4 nights per week. Patient unable to provide any other history. He states he is short of breath. He denies any fever chills or sweats. He denies any specific sputum production or hemoptysis. ROS is not reliable with this patient at this time. Allergies Allergy/AdvReac Type Severity Reaction Status Date / Time turkey Allergy Unknown Verified 12/06/20 15:22 Home Medications Medication Instructions Recorded Confirmed Type docusate sodium 100 mg capsule 100 mg PO QAM 01/28/18 12/06/20 History (Colace) gabapentin 300 mg capsule 300 mg PO HS 01/28/18 12/06/20 History fluticasone fur. 100 mcg-umeclid 1 inh INHALATION QAM 02/13/19 12/06/20 History 62.5 mcg-vilant 25 mcg inhalat.powder (Trelegy Ellipta) levothyroxine 50 mcg tablet 50 mcg PO DAILY 02/13/19 12/06/20 History sertraline 100 mg tablet 100 mg PO QAM 02/13/19 12/06/20 History verapamil 120 mg tablet,extended 120 mg PO QAM 02/13/19 12/06/20 History release albuterol sulfate 2.5 mg INHALATION Q4 PRN 06/16/20 12/06/20 History ipratropium 20 mcg-albuterol 100 1 puff INHALATION QID PRN 06/16/20 12/06/20 History mcg/actuation mist for inhalation (Combivent Respimat) azithromycin 250 mg tablet 250 mg PO UD 30 Days #30 tab 06/22/20 12/06/20 Rx (Zithromax) pantoprazole 40 mg tablet,delayed 40 mg PO DAILY #30 tab 06/28/20 12/06/20 Rx release (Protonix) atorvastatin 40 mg tablet 40 mg PO DAILY 12/06/20 12/06/20 History lisinopril 10 mg tablet 10 mg PO DAILY 12/06/20 12/06/20 History montelukast 10 mg tablet 10 mg PO DAILY 12/06/20 12/06/20 History Patient History Medical History Alcohol use BPH (benign prostatic hyperplasia) COPD (chronic obstructive pulmonary disease) Depression Diabetes mellitus, type II Dyslipidemia Esophageal stenosis "s/p dilation June 2016" GERD (gastroesophageal reflux disease) HTN (hypertension) Hypothyroidism Lung nodule Mood disorder Paroxysmal atrial fibrillation Superficial thrombophlebitis "2009" TIA (transient ischemic attack) "1982" Surgical History S/P bronchoscopy Family History Other Diabetes Social History Smoking Status: Smoker, status unknown Tobacco Type: Cigarettes Cigarettes Per Day: 20; Second Hand Exposure: No; Hx Alcohol Use: Yes (per record) Alcohol type: beer Alcohol Intake Frequency Comment: 2 beers a day Hx Substance Use: No Preferred Language: Faroese Communication Ability: Impaired 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 EYES: No icterus, gaze conjugate. Pupils equal round and reactive to light. NOSE: No evidence of epistaxis. Oxymask in place at the time of my visit. MOUTH: No lesions or candidiasis. Oxymask in place at the time of my visit. Mucosa moist. NECK: Supple LUNGS: Rales and rhonchi appreciated on examination. Diffuse bronchospasm. HEART: Regular, rate controlled ABDOMEN: Soft, NT, ND, BS Present EXTREMITIES: No LE edema, pedal pulses intact and equal bilaterally. NEURO: Awake and alert. Poor historian. Unknown baseline. Results & Data Results & Data ([facility]) Vital Signs (Past 12 Hours) Vital Signs Temp Pulse Pulse Resp BP Pulse Ox 12/07/20 11:00 74 24 98 12/07/20 10:57 75 24 99 12/07/20 10:23 36.6 C 57 L 20 177/93 H 92 12/07/20 08:35 36.8 C 71 30 H 145/85 H 89 L 12/07/20 08:25 71 12/07/20 07:33 67 20 96 12/07/20 04:47 36.6 C 83 16 145/82 H 96 12/07/20 02:52 61 Laboratory Results 12/07/20 10:15 12/07/20 10:15 12/06/20 12/06/20 12/07/20 15:28 16:54 06:35 ABG pH 7.30 L 7.34 L ABG pCO2 71 H 70 H ABG pO2 63 L 59 L ABG HCO3 34 H 37 H ABG O2 Saturation 92.6 90.5 ABG Base Excess 6.0 H 9.6 H VBG pH 7.21 L VBG pCO2 95 H VBG pO2 24 VBG HCO3 37 VBG O2 Saturation < 60.0 VBG Base Excess 7.1 12/07/20 09:49 ABG pH 7.36 ABG pCO2 69 H ABG pO2 88 ABG HCO3 38 H ABG O2 Saturation 96.1 H ABG Base Excess 10.3 H VBG pH VBG pCO2 VBG pO2 VBG HCO3 VBG O2 Saturation VBG Base Excess COVID-19 Results 12/06/20 15:05 SARS-CoV-2 (PCR) NEGATIVE Diagnostic Findings Chest X-Ray 12/06/20 14:56 XR chest 1V portable HISTORY: Dyspnea COMPARISON: Chest 06/28/2020. FINDINGS: No pneumothorax. Trace bilateral pleural effusions. The lungs are mildly hyperexpanded. The heart is normal in size. Mild diffuse chronic interstitial thickening and emphysema again noted. No evidence for pulmonary edema. No new focal lung consolidations to suggest pneumonia. IMPRESSION: 1. Trace bilateral pleural effusions. 2. Mild chronic interstitial thickening and mild emphysema. ACT 112: Negative or not required by law. Electronically signed by: Joshua Guzman M.D. 12/06/2020 4:[address] 12/06/20 20:01 CT chest diagnostic wo con CT DOSE: 297.63 mGy.cm CLINICAL HISTORY: 70 years-old Male with h/o CHANTELL nodule in the past. Follow-up study in a patient with pulmonary nodules TECHNIQUE: Multiaxial CT images of the chest were performed without contrast. A dose lowering technique was utilized adhering to the principles of ALARA. COMPARISON: CTA chest 06/16/2020, 05/24/2020 FINDINGS: Unremarkable thyroid. No adenopathy. The heart is normal in size without pericardial effusion. Atherosclerosis of the aorta without aneurysm. Trace pleural effusions. No pneumothorax. Severe emphysema. Bronchial wall thickening suggestive of bronchitis with bibasilar mucous plugging. Scattered calcified pulmonary granulomata. Linear scarring of the right upper lobe is redemonstrated. No suspicious pulmonary nodules or masses are identified. Large pulmonary bulla of the lung bases are again noted. No acute process of the imaged upper abdomen. 7 mm right renal calculus. 4 mm calculus of the superior pole left kidney. Unremarkable soft tissues. Moderate compression fractures of the T8, and T9 vertebral bodies are new from prior. With mild inferior endplate compression at T7. No associated retropulsion or significant paravertebral edema. Chronic T10 and T12 compression deformities with chronic superior endplate Schmorl's node at T11. IMPRESSION: 1. Severe emphysema with bronchial wall thickening suggestive of bronchitis. Right basilar mucous plugging is again noted. 2. Trace pleural effusions. 3. Bilateral renal calculi. 4. Moderate acute versus subacute T8 and T9 compression deformities are new from 06/16/2020. No retropulsion or appreciable paravertebral edema. ACT 112: Negative or not required by law. Electronically signed by: Leodan Wills M.D. 12/06/2020 9:07 PM Chest X-Ray 12/07/20 08:55 XR chest 1V portable CLINICAL HISTORY: Respiratory failure. COMPARISON STUDY: Chest radiograph and chest CT December 06, 2020. FINDINGS: Severe emphysema is noted with lung hyperexpansion. There is no consolidation. No pneumothorax or pleural effusion is noted. There is no evidence for pulmonary edema. Trace right pleural effusion is present. IMPRESSION: 1. Severe emphysema. No consolidation. 2. Trace right pleural effusion. ACT 112: Negative or not required by law. Electronically signed by: Cam Perez M.D. 12/07/2020 9:[address] 12/07/20 10:07 CT head/brain wo con CLINICAL HISTORY: 70 years-old Male with AMS. Acutely altered mental status TECHNIQUE: Multiple axial CT images of the head were obtained without contrast. A dose lowering technique was utilized adhering to the principles of ALARA. CT DOSE: 1382.10 mGy.cm COMPARISON: Head CT 02/16/2019 FINDINGS: Motion degraded exam. The study was then repeated which was also motion degraded. No acute intracranial hemorrhage, midline shift, intracranial mass, hydrocephalus, territorial ischemia or abnormal extra-axial collection. Age- related involutional changes. White matter hypodensities suggestive of chronic microvascular ischemic disease. 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 The calvarium is intact. Prior bilateral lens repair. The paranasal sinuses, mastoid air cells, and middle ear cavities are clear. IMPRESSION: Motion degraded exam. No acute intracranial abnormality. ACT 112: Negative or not required by law. The above report was generated using voice recognition software. It may contain grammatical, syntax or spelling errors. Electronically signed by: Leodan Wills M.D. 12/07/2020 10:47 AM PG Care Time/CCT Total # of Minutes Spent Total Time Spent with Patient: Total time spent is greater than 50% in coordination of care (as documented) at patient's floor/unit and/or counseling patient: 70 minutes Coding Level of Care Code 51068 Initial Inpt Care Lvl 3 Diagnoses COPD (chronic obstructive pulmonary disease) J44.9 COPD type: unspecified COPD Acute on chronic respiratory failure with hypoxia and hypercapnia J96.21; J96.22 Lung nodule R91.1 Time Spent (min) 70
[2020-12-07] MEDS: PANTOprazole 40 MG in SYRINGE 0 ML IV SCH (12:07)
[2020-12-07] MEDS: NICOTINE 14 MG/24 HR PATCH TD SCH (12:50)
[2020-12-07] MEDS: AZITHROMYCIN 500 MG in DEXTROSE 5% 250 ML IV SCH (16:40)
[2020-12-07 17:57] LABS: Amphetamines+Metham, Urine Neg (Neg); Barbiturates, Urine Neg (Neg); Benzodiazepine, Urine Neg (Neg); Cocaine, Urine Neg (Neg); MDMA (Ecstacy), Urine Neg (Neg); Methadone, Urine Neg (Neg); Opiate, Urine Neg (Neg); Phencyclidine, Urine Neg (Neg)
[2020-12-07] MEDS: ENOXAPARIN INJ 40 MG/0.4 ML SYR SQ SCH (19:44)
[2020-12-07] MEDS ORDERED: LORazepam 1 MG/2 ML VIAL IV PRN (19:52)
[2020-12-07] MEDS ORDERED: ATIVAN IV ALCOHOL WITHDRAWL IV PRN (19:52)
[2020-12-07] MEDS ORDERED: LORazepam 3 MG/6 ML VIAL IV PRN (19:52)
[2020-12-07] MEDS ORDERED: LORazepam 2 MG/4 ML VIAL IV PRN (19:52)
[2020-12-07] MEDS: GABAPENTIN 300 MG CAP PO SCH ×2 (21:43→22:09)
[2020-12-08] MEDS: methylPREDNISolone 40 MG in SYRINGE 0 ML IV SCH ×3 (01:00→17:16)
[2020-12-08] MEDS ORDERED: FLUMAZENIL 0.1 MG/1 ML 10 ML VIAL IV STA (01:16)
[2020-12-08] MEDS ORDERED: FLUMAZENIL 0.1 MG/1 ML 10 ML VIAL IV ONE (01:20)
[2020-12-08] MEDS ORDERED: OLANZapine 10 MG/2.1 ML SDV IM PRN (01:31)
[2020-12-08] MEDS ORDERED: THIAMINE HCL 100 MG in SYRINGE 9 ML IV STA (01:34)
[2020-12-08 01:40] LABS: iSTAT Art Bld Gas pCO2 Correct 74 mmHg (35-46); iSTAT Arterial Blood Gas HCO3 40 meg/L (19-24); iSTAT Arterial Blood Gas pCO2 74 mmHg (35-46); iSTAT Arterial Blood Gas pH 7.34 (7.35-7.45); iSTAT Arterial Blood Gas pO2 71 mmHg (80-95); iSTAT Arterial Blood Gas pO2 C 71; iSTAT Carbon Dioxide > 40 mmol/L (24-31); iSTAT FiO2 30 %; iSTAT Hematocrit 33 % (42-52); iSTAT Hemoglobin 11.2 g/dl (14.0-18.0); iSTAT Potassium 4.4 mmol/L (3.3-5.0); iSTAT Site R Radial; iSTAT Sodium 136 mmol/L (135-144)
--- NOTE | 2020-12-08 01:51 | Communication Note ---
Date of Service: December 08, 2020 1252 AM Made aware by RN of behavior change. Only responding to pain as per RN Patient nonverbal. Episodic tensing/restlessness of the extremities noted since yesterday. Ativan 3 mg given 2 hours ago for MELY S score of 10 PPE Obtunded, sluggish pupils, nonverbal Episodic restlessness BiPAP in place Decreased breath sounds BSG 77 ABG pH 7.34, pCO2 74 AP Encephalopathy Multifactorial : high-dose Ativan administration for MELY S protocol Worsening respiratory acidosis from presumptive COPD exacerbation currently on BiPAP Flumazenil 1 dose Adjust BiPAP settings, recheck ABG after 1 hour Improved patient mentation with verbal output noted after first dose of Flumazenil. Hold Ativan dosing as per MELY S protocol for now. Zyprexa as needed agitation for now Ativan at lower doses as needed agitation associated with presumptive alcohol withdrawal once patient mentation back to baseline. Will relay to AM provider.
[2020-12-08 04:35] LABS: iSTAT Arterial Blood Gas HCO3 38 meg/L (19-24); iSTAT Arterial Blood Gas pCO2 63 mmHg (35-46); iSTAT Arterial Blood Gas pH 7.39 (7.35-7.45); iSTAT Arterial Blood Gas pO2 79 mmHg (80-95); iSTAT Carbon Dioxide > 40 mmol/L (24-31); iSTAT Hematocrit 31 % (42-52); iSTAT Hemoglobin 10.5 g/dl (14.0-18.0); iSTAT Potassium 4.6 mmol/L (3.3-5.0); iSTAT Sodium 136 mmol/L (135-144)
[2020-12-08 05:31] LABS: Hematocrit (blood only) 30.6 % (42-52); Hemoglobin 9.9 g/dL (14.0-18.0); Immature Granulocytes # (auto) 0.02 K/uL (0.00-0.02); Immature Granulocytes % (auto) 0.2 %; Lymphocytes # (auto) 0.26 K/uL (1.2-3.4); Lymphocytes % (auto) 2.9 %; Mean Corpuscular Hemoglobin 32.7 pg (25-34); Mean Platelet Volume 11.7 fL (7.4-10.4); Monocytes % (auto) 3.3 %; Neutrophils # (auto) 8.39 K/uL (1.4-6.5); Neutrophils % (auto) 93.6 %; Platelet Count 108 K/uL (130-400); RDW Coefficient of Variation 14.1 % (11.5-14.5); RDW Standard Deviation 52.2 fL (36.4-46.3); Red Blood Count 3.03 M/uL (4.7-6.1); White Blood Count 8.97 K/uL (4.8-10.8)
[2020-12-08 05:40] LABS: Mean Corpuscular Hgb Conc 32.4 g/dL (32-36)
[2020-12-08] MEDS: D5W AND NSS 1,000 ML IV SCH ×2 (05:47→21:58)
[2020-12-08 05:48] LABS: Albumin Level 3.1 gm/dl (3.4-5.0); BUN Creatinine Ratio 42.5 (10-20); Calcium 8.5 mg/dl (8.5-10.1); Creatinine Clr Calc Pharmacy 72.5 ml/min; Est GFR (African American) 108.7 ml/min; Est GFR (Non-African American) 93.7 ml/min; Magnesium 2.2 mg/dl (1.8-2.4); Potassium 4.4 mmol/L (3.5-5.1)
[2020-12-08 05:51] LABS: Albumin Globulin Ratio 1.1 (0.9-2); Bilirubin,Total 0.6 mg/dl (0.2-1); Globulin 2.9 gm/dl (2.5-4.0)
[2020-12-08] MEDS: ALBUT/IPRATROP 3MG/0.5MG NEB 3 ML VIAL NEB SCH ×5 (07:27→23:48)
[2020-12-08] MEDS: LEVOTHYROXINE SODIUM 50 MCG TABLET PO SCH (07:34)
[2020-12-08] MEDS: ATORVASTATIN 40 MG TAB PO SCH (08:29)
[2020-12-08] MEDS: FLUTICASONE FUROATE 100MCG 14 PUFFS/INHALER INH SCH (08:29)
[2020-12-08] MEDS: DOCUSATE SODIUM 100 MG CAP PO SCH (08:29)
[2020-12-08] MEDS: MULTIVITAMIN TAB PO SCH (08:30)
[2020-12-08] MEDS: MONTELUKAST SODIUM 10 MG TABLET PO SCH (08:30)
[2020-12-08] MEDS: lisinopril 10 MG TAB PO SCH (08:30)
--- NOTE | 2020-12-08 08:30 | Hospitalist Progress Note ---
Date of Service December 08, 2020 Assessment & Plan (1) Acute on chronic respiratory failure with hypoxia and hypercapnia: (2) COPD exacerbation: Plan: This is a 70-year-old male with past medical history of COPD, chronic respiratory failure on 3-4 L nasal cannula O2, hypothyroidism, type 2 diabetes, paroxysmal atrial fibrillation, hypertension, ongoing tobacco use, BPH and other medical problems listed below who presents with progressive shortness of breath and cough for the past 2 weeks and was found to have COPD exacerbation. Follows with Marissa gonzales has not come to appointment since last January. ABG - pH 7.3, pco2 71, HCO3 34 on admission (however per ED note pH 7.2, pCO2 90s) Bipap started, continue to monitor respiratory function closely Given 6mg IV Dexamethasone, duoneb and Azithromycin in ED Continued Bipap overnight (12/07) AM tried NC desatted to low 80s Duonebs QIDR, IV Azithromycin, IV solumedrol 40mg Q8H, Trelegy inh Afebrile, no evidence of PNA on imaging Repeat ABG (12/07) AM seems improved pH 7.34 PCO2 70 However patient lethargic, does not answer appropriately stat ABG and chest x-ray ordered pulmonary medicine contacted Repeat CXR (12/07) IMPRESSION: 1. Severe emphysema. No consolidation. 2. Trace right pleural effusion. 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/websphere process server developer notified Attempt to notify family as well, however case management currently searching for correct contact information (3) Lung nodule: Plan: Outpatient CT chest wo con from 2019 showing spiculated left upper lobe lung nodule measuring up to 1.5 cm that was highly concerning for malignancy PET-CT or percutaneous biopsy recommended at that time. Patient not compliant with either Will obtain routine CT chest wo con CT chest: IMPRESSION: 1. Severe emphysema with bronchial wall thickening suggestive of bronchitis. Right basilar mucous plugging is again noted. 2. Trace pleural effusions. 3. Bilateral renal calculi. 4. Moderate acute versus subacute T8 and T9 compression deformities are new from 06/16/2020. No retropulsion or appreciable paravertebral edema. (4) HTN (hypertension): Plan: Normotensive. Continue lisinopril, verapamil if can take PO (5) Diabetes mellitus, type II: Plan: A1c 5.1 in April 2020, no longer on diabetic medications, carb consistent diet (6) Paroxysmal atrial fibrillation: Plan: Not on anticoagulation secondary to a history of bleeding and compliance issues. Continue verapamil if can take PO (7) Alcohol dependence: Plan: History of rehab earlier this year. Serum alcohol level pending No signs/sx of withdrawal At risk protocol ordered (8) Hypothyroidism: Plan: Continue levothyroxine (9) BPH (benign prostatic hyperplasia): Plan: Bladder scan PRN (10) Mood disorder: Plan: Continue sertraline DVT Ppx: SQ Lovenox Code status: FULL PCP: Dr. Rizzo Dispo: Admitted to PCU Admission and Anticipated Discharge Date Admission Date: December 06, 2020 Subjective Patient seen in follow-up of acute on chronic respiratory failure, with hypoxia, hypercapnia - believed to be secondary to COPD exacerbation, encephalopathy Patient barely responsive yesterday, despite being on BiPAP, his mental status then improved in the afternoon Overnight patient again not responding, this seems to be also related to Ativan given for alcohol withdrawal at night [employer] physician was contacted, patient received flumazenil, see his note for more detail This morning patient is on BiPAP, he has good eye contact and seems to be nodding yes or no/trying to speak -however still moving his extremities without much coordination and, not able to tell if patient is comprehending Pulmonary/websphere process server developer physician notified Attempt to contact family, case management working on finding proper contact information as the one provided/in our computer system does not seem to be correct or helpful at this time Review of Systems Review of Systems: Unobtainable due to cognitive status Physical Exam 2 Physical Exam: General Appearance: thin male, appears chronically ill, currently on Bipap mask, eyes open but poor response to questions Head: normocephalic, atraumatic Eyes: normal inspection, EOMI, PERRL ENT: external ear and nose normal, bipap mask Neck: normal visual inspection Respiratory: on Bipap, + somewhat diminished breath sounds Cardiovascular: regular rate, rhythm, no murmur noted, normal peripheral pulses Chest: normal inspection of chest Abdomen/GI: normal bowel sounds, soft, nontender Extremities/Musculoskeletal: moves extremities Neurologic: Awake, with eyes open, however poorly responding to questions, PERRL, EOMI,no face palsy,moves all extremities Skin: no rashes, normal color, warm/dry Results & Data Results & Data ([facility]) Vital Signs (Past 12 Hours) Vital Signs Temp Pulse Pulse Pulse Resp BP BP 12/08/20 07:58 36.6 C 79 20 166/97 H 12/08/20 07:30 64 26 H 12/08/20 07:28 64 26 H 12/08/20 04:00 36.7 C 62 22 159/81 H 12/08/20 03:49 62 24 12/08/20 00:05 64 12/07/20 22:59 36.6 C 62 16 161/63 H 12/07/20 22:10 65 28 H Pulse Ox 12/08/20 07:58 99 12/08/20 07:30 98 12/08/20 07:28 98 12/08/20 04:00 95 12/08/20 03:49 94 12/08/20 00:05 12/07/20 22:59 97 12/07/20 22:10 95 Laboratory Results 12/08/20 12/08/20 12/08/20 Range/Units 07:06 05:15 05:15 WBC 8.97 (4.8-10.8) K/uL RBC 3.03 L (4.7-6.1) M/uL Hgb 9.9 L (14.0-18.0) g/dL POC Hgb (14.0-18.0) g/dl Hct 30.6 L (42-52) % POC Hct (42-52) % MCV 101.0 H (80-100) fL MCH 32.7 (25-34) pg MCHC 32.4 (32-36) g/dL RDW Std Deviation 52.2 H (36.4-46.3) fL RDW Coeff of Daquan 14.1 (11.5-14.5) % Plt Count 108 L (130-400) K/uL MPV 11.7 H (7.4-10.4) fL Immature Gran % (Auto) 0.2 % Neut % (Auto) 93.6 % Lymph % (Auto) 2.9 % [place] % (Auto) 3.3 % Eos % (Auto) 0.0 % Baso % (Auto) 0.0 % Neut # (Auto) 8.39 H (1.4-6.5) K/uL Lymph # (Auto) 0.26 L (1.2-3.4) K/uL [place] # (Auto) 0.30 (0.11-0.59) K/uL Eos # (Auto) 0.00 (0-0.5) K/uL Baso # (Auto) 0.00 (0-0.2) K/uL Immature Gran # (Auto) 0.02 (0.00-0.02) K/uL Sample Site POC pH (7.35-7.45) POC pCO2 (35-46) mmHg POC pO2 (80-95) mmHg POC HCO3 (19-24) jaime/L POC Total CO2 (24-31) mmol/L POC Base Excess (-9-1.8) jaime/L ABG pH (7.35-7.45) ABG pH (Temp Correct) (7.35-7.45) ABG pCO2 (35-46) mmHg ABG pCO2 (Temp Corrct (35-46) mmHg ABG pO2 (80-95) mmHg POC ABG pO2 at Pt Temp ABG HCO3 (19-24) mmol/L POC ABG O2 Sat (90-95) % ABG O2 Saturation (90-95) % ABG Base Excess (-9-1.8) mEq/L Hussein Test (Pos) Barometric Pressure mm/Hg Oxygen Given O2 Delivery Device POC O2 Rate POC FiO2 % IPAP POC Sodium (135-144) mmol/L Sodium 137 (136-145) mmol/L POC Potassium (3.3-5.0) mmol/L Potassium 4.4 (3.5-5.1) mmol/L Chloride 96 L (98-107) mmol/L Carbon Dioxide 36 H (21-32) mmol/L Anion Gap 5.0 (3-11) BUN 32 H (7-18) mg/dl Creatinine 0.76 (0.6-1.4) mg/dl Est Cr Clr Drug Dosing 72.5 ml/min Est GFR ( Amer) 108.7 ml/min Est GFR (Non-Af Amer) 93.7 ml/min BUN/Creatinine Ratio 42.5 H (10-20) Glucose 74 (70-99) mg/dl POC Glucose 83 (70-99) mg/dl Lactate (0.4-2.0) mmol/L Calcium 8.5 (8.5-10.1) mg/dl Phosphorus (2.5-4.9) mg/dl Magnesium 2.2 (1.8-2.4) mg/dl Total Bilirubin 0.6 (0.2-1) mg/dl AST 51 H (15-37) U/L ALT 27 (12-78) U/L Alkaline Phosphatase 110 (45-117) U/L Ammonia (11-32) umol/L Total Protein 6.0 L (6.4-8.2) gm/dl Albumin 3.1 L (3.4-5.0) gm/dl Globulin 2.9 (2.5-4.0) gm/dl Albumin/Globulin Ratio 1.1 (0.9-2) Procalcitonin (0-0.5) ng/ml Urine Opiates Screen (Neg) Ur Methadone, Qual (Neg) Urine Barbiturates (Neg) Ur Phencyclidine (PCP) (Neg) U Amphetamin/Meth Scrn (Neg) MDMA (Ecstasy) Screen (Neg) U Benzodiazepines Scrn (Neg) Ur Cocaine Metabolite (Neg) U Marijuana (THC) Screen (Neg) 12/08/20 12/08/20 12/08/20 Range/Units 04:33 04:17 01:14 WBC (4.8-10.8) K/uL RBC (4.7-6.1) M/uL Hgb (14.0-18.0) g/dL POC Hgb 10.5 L 11.2 L (14.0-18.0) g/dl Hct (42-52) % POC Hct 31 L 33 L (42-52) % MCV (80-100) fL MCH (25-34) pg MCHC (32-36) g/dL RDW Std Deviation (36.4-46.3) fL RDW Coeff of Daquan (11.5-14.5) % Plt Count (130-400) K/uL MPV (7.4-10.4) fL Immature Gran % (Auto) % Neut % (Auto) % Lymph % (Auto) % [place] % (Auto) % Eos % (Auto) % Baso % (Auto) % Neut # (Auto) (1.4-6.5) K/uL Lymph # (Auto) (1.2-3.4) K/uL [place] # (Auto) (0.11-0.59) K/uL Eos # (Auto) (0-0.5) K/uL Baso # (Auto) (0-0.2) K/uL Immature Gran # (Auto) (0.00-0.02) K/uL Sample Site R Radial POC pH 7.39 7.34 L (7.35-7.45) POC pCO2 63 H 74 H (35-46) mmHg POC pO2 79 L 71 L (80-95) mmHg POC HCO3 38 H 40 H (19-24) jaime/L POC Total CO2 > 40 H* > 40 H* (24-31) mmol/L POC Base Excess 13.0 H 14.0 H (-9-1.8) jaime/L ABG pH (7.35-7.45) ABG pH (Temp Correct) 7.340 L (7.35-7.45) ABG pCO2 (35-46) mmHg ABG pCO2 (Temp Corrct 74 H (35-46) mmHg ABG pO2 (80-95) mmHg POC ABG pO2 at Pt Temp 71 ABG HCO3 (19-24) mmol/L POC ABG O2 Sat 95.0 92.0 (90-95) % ABG O2 Saturation (90-95) % ABG Base Excess (-9-1.8) mEq/L Hussein Test NA (Pos) Barometric Pressure mm/Hg Oxygen Given O2 Delivery Device BIPAP POC O2 Rate 16 POC FiO2 30 % IPAP 12 POC Sodium 136 136 (135-144) mmol/L Sodium (136-145) mmol/L POC Potassium 4.6 4.4 (3.3-5.0) mmol/L Potassium (3.5-5.1) mmol/L Chloride (98-107) mmol/L Carbon Dioxide (21-32) mmol/L Anion Gap (3-11) BUN (7-18) mg/dl Creatinine (0.6-1.4) mg/dl Est Cr Clr Drug Dosing ml/min Est GFR ( Amer) ml/min Est GFR (Non-Af Amer) ml/min BUN/Creatinine Ratio (10-20) Glucose (70-99) mg/dl POC Glucose 77 (70-99) mg/dl Lactate (0.4-2.0) mmol/L Calcium (8.5-10.1) mg/dl Phosphorus (2.5-4.9) mg/dl Magnesium (1.8-2.4) mg/dl Total Bilirubin (0.2-1) mg/dl AST (15-37) U/L ALT (12-78) U/L Alkaline Phosphatase (45-117) U/L Ammonia (11-32) umol/L Total Protein (6.4-8.2) gm/dl Albumin (3.4-5.0) gm/dl Globulin (2.5-4.0) gm/dl Albumin/Globulin Ratio (0.9-2) Procalcitonin (0-0.5) ng/ml Urine Opiates Screen (Neg) Ur Methadone, Qual (Neg) Urine Barbiturates (Neg) Ur Phencyclidine (PCP) (Neg) U Amphetamin/Meth Scrn (Neg) MDMA (Ecstasy) Screen (Neg) U Benzodiazepines Scrn (Neg) Ur Cocaine Metabolite (Neg) U Marijuana (THC) Screen (Neg) 12/08/20 12/07/20 12/07/20 Range/Units 00:58 22:51 16:50 WBC (4.8-10.8) K/uL RBC (4.7-6.1) M/uL Hgb (14.0-18.0) g/dL POC Hgb (14.0-18.0) g/dl Hct (42-52) % POC Hct (42-52) % MCV (80-100) fL MCH (25-34) pg MCHC (32-36) g/dL RDW Std Deviation (36.4-46.3) fL RDW Coeff of Daquan (11.5-14.5) % Plt Count (130-400) K/uL MPV (7.4-10.4) fL Immature Gran % (Auto) % Neut % (Auto) % Lymph % (Auto) % [place] % (Auto) % Eos % (Auto) % Baso % (Auto) % Neut # (Auto) (1.4-6.5) K/uL Lymph # (Auto) (1.2-3.4) K/uL [place] # (Auto) (0.11-0.59) K/uL Eos # (Auto) (0-0.5) K/uL Baso # (Auto) (0-0.2) K/uL Immature Gran # (Auto) (0.00-0.02) K/uL Sample Site POC pH (7.35-7.45) POC pCO2 (35-46) mmHg POC pO2 (80-95) mmHg POC HCO3 (19-24) jaime/L POC Total CO2 (24-31) mmol/L POC Base Excess (-9-1.8) jaime/L ABG pH (7.35-7.45) ABG pH (Temp Correct) (7.35-7.45) ABG pCO2 (35-46) mmHg ABG pCO2 (Temp Corrct (35-46) mmHg ABG pO2 (80-95) mmHg POC ABG pO2 at Pt Temp ABG HCO3 (19-24) mmol/L POC ABG O2 Sat (90-95) % ABG O2 Saturation (90-95) % ABG Base Excess (-9-1.8) mEq/L Hussein Test (Pos) Barometric Pressure mm/Hg Oxygen Given O2 Delivery Device POC O2 Rate POC FiO2 % IPAP POC Sodium (135-144) mmol/L Sodium (136-145) mmol/L POC Potassium (3.3-5.0) mmol/L Potassium (3.5-5.1) mmol/L Chloride (98-107) mmol/L Carbon Dioxide (21-32) mmol/L Anion Gap (3-11) BUN (7-18) mg/dl Creatinine (0.6-1.4) mg/dl Est Cr Clr Drug Dosing ml/min Est GFR ( Amer) ml/min Est GFR (Non-Af Amer) ml/min BUN/Creatinine Ratio (10-20) Glucose (70-99) mg/dl POC Glucose 77 87 (70-99) mg/dl Lactate (0.4-2.0) mmol/L Calcium (8.5-10.1) mg/dl Phosphorus (2.5-4.9) mg/dl Magnesium (1.8-2.4) mg/dl Total Bilirubin (0.2-1) mg/dl AST (15-37) U/L ALT (12-78) U/L Alkaline Phosphatase (45-117) U/L Ammonia (11-32) umol/L Total Protein (6.4-8.2) gm/dl Albumin (3.4-5.0) gm/dl Globulin (2.5-4.0) gm/dl Albumin/Globulin Ratio (0.9-2) Procalcitonin (0-0.5) ng/ml Urine Opiates Screen Neg (Neg) Ur Methadone, Qual Neg (Neg) Urine Barbiturates Neg (Neg) Ur Phencyclidine (PCP) Neg (Neg) U Amphetamin/Meth Scrn Neg (Neg) MDMA (Ecstasy) Screen Neg (Neg) U Benzodiazepines Scrn Neg (Neg) Ur Cocaine Metabolite Neg (Neg) U Marijuana (THC) Screen Neg (Neg) 12/07/20 12/07/20 12/07/20 Range/Units 16:20 11:16 10:15 WBC (4.8-10.8) K/uL RBC (4.7-6.1) M/uL Hgb (14.0-18.0) g/dL POC Hgb (14.0-18.0) g/dl Hct (42-52) % POC Hct (42-52) % MCV (80-100) fL MCH (25-34) pg MCHC (32-36) g/dL RDW Std Deviation (36.4-46.3) fL RDW Coeff of Daquan (11.5-14.5) % Plt Count (130-400) K/uL MPV (7.4-10.4) fL Immature Gran % (Auto) % Neut % (Auto) % Lymph % (Auto) % [place] % (Auto) % Eos % (Auto) % Baso % (Auto) % Neut # (Auto) (1.4-6.5) K/uL Lymph # (Auto) (1.2-3.4) K/uL [place] # (Auto) (0.11-0.59) K/uL Eos # (Auto) (0-0.5) K/uL Baso # (Auto) (0-0.2) K/uL Immature Gran # (Auto) (0.00-0.02) K/uL Sample Site POC pH (7.35-7.45) POC pCO2 (35-46) mmHg POC pO2 (80-95) mmHg POC HCO3 (19-24) jaime/L POC Total CO2 (24-31) mmol/L POC Base Excess (-9-1.8) jaime/L ABG pH (7.35-7.45) ABG pH (Temp Correct) (7.35-7.45) ABG pCO2 (35-46) mmHg ABG pCO2 (Temp Corrct (35-46) mmHg ABG pO2 (80-95) mmHg POC ABG pO2 at Pt Temp ABG HCO3 (19-24) mmol/L POC ABG O2 Sat (90-95) % ABG O2 Saturation (90-95) % ABG Base Excess (-9-1.8) mEq/L Hussein Test (Pos) Barometric Pressure mm/Hg Oxygen Given O2 Delivery Device POC O2 Rate POC FiO2 % IPAP POC Sodium (135-144) mmol/L Sodium (136-145) mmol/L POC Potassium (3.3-5.0) mmol/L Potassium (3.5-5.1) mmol/L Chloride (98-107) mmol/L Carbon Dioxide (21-32) mmol/L Anion Gap (3-11) BUN (7-18) mg/dl Creatinine (0.6-1.4) mg/dl Est Cr Clr Drug Dosing ml/min Est GFR ( Amer) ml/min Est GFR (Non-Af Amer) ml/min BUN/Creatinine Ratio (10-20) Glucose (70-99) mg/dl POC Glucose 76 85 (70-99) mg/dl Lactate (0.4-2.0) mmol/L Calcium (8.5-10.1) mg/dl Phosphorus (2.5-4.9) mg/dl Magnesium (1.8-2.4) mg/dl Total Bilirubin (0.2-1) mg/dl AST (15-37) U/L ALT (12-78) U/L Alkaline Phosphatase (45-117) U/L Ammonia 20.0 (11-32) umol/L Total Protein (6.4-8.2) gm/dl Albumin (3.4-5.0) gm/dl Globulin (2.5-4.0) gm/dl Albumin/Globulin Ratio (0.9-2) Procalcitonin (0-0.5) ng/ml Urine Opiates Screen (Neg) Ur Methadone, Qual (Neg) Urine Barbiturates (Neg) Ur Phencyclidine (PCP) (Neg) U Amphetamin/Meth Scrn (Neg) MDMA (Ecstasy) Screen (Neg) U Benzodiazepines Scrn (Neg) Ur Cocaine Metabolite (Neg) U Marijuana (THC) Screen (Neg) 12/07/20 12/07/20 12/07/20 Range/Units 10:15 10:15 10:15 WBC 8.36 (4.8-10.8) K/uL RBC 3.06 L (4.7-6.1) M/uL Hgb 10.0 L (14.0-18.0) g/dL POC Hgb (14.0-18.0) g/dl Hct 30.7 L (42-52) % POC Hct (42-52) % MCV 100.3 H (80-100) fL MCH 32.7 (25-34) pg MCHC 32.6 (32-36) g/dL RDW Std Deviation 49.8 H (36.4-46.3) fL RDW Coeff of Daquan 13.6 (11.5-14.5) % Plt Count 118 L (130-400) K/uL MPV 11.9 H (7.4-10.4) fL Immature Gran % (Auto) % Neut % (Auto) % Lymph % (Auto) % [place] % (Auto) % Eos % (Auto) % Baso % (Auto) % Neut # (Auto) (1.4-6.5) K/uL Lymph # (Auto) (1.2-3.4) K/uL [place] # (Auto) (0.11-0.59) K/uL Eos # (Auto) (0-0.5) K/uL Baso # (Auto) (0-0.2) K/uL Immature Gran # (Auto) (0.00-0.02) K/uL Sample Site POC pH (7.35-7.45) POC pCO2 (35-46) mmHg POC pO2 (80-95) mmHg POC HCO3 (19-24) jaime/L POC Total CO2 (24-31) mmol/L POC Base Excess (-9-1.8) jaime/L ABG pH (7.35-7.45) ABG pH (Temp Correct) (7.35-7.45) ABG pCO2 (35-46) mmHg ABG pCO2 (Temp Corrct (35-46) mmHg ABG pO2 (80-95) mmHg POC ABG pO2 at Pt Temp ABG HCO3 (19-24) mmol/L POC ABG O2 Sat (90-95) % ABG O2 Saturation (90-95) % ABG Base Excess (-9-1.8) mEq/L Hussein Test (Pos) Barometric Pressure mm/Hg Oxygen Given O2 Delivery Device POC O2 Rate POC FiO2 % IPAP POC Sodium (135-144) mmol/L Sodium 136 (136-145) mmol/L POC Potassium (3.3-5.0) mmol/L Potassium 4.5 (3.5-5.1) mmol/L Chloride 96 L (98-107) mmol/L Carbon Dioxide 38 H (21-32) mmol/L Anion Gap 2.0 L (3-11) BUN 26 H (7-18) mg/dl Creatinine 0.98 (0.6-1.4) mg/dl Est Cr Clr Drug Dosing 56.2 ml/min Est GFR ( Amer) 91.4 ml/min Est GFR (Non-Af Amer) 78.9 ml/min BUN/Creatinine Ratio 27.0 H (10-20) Glucose 69 L (70-99) mg/dl POC Glucose (70-99) mg/dl Lactate 1.2 (0.4-2.0) mmol/L Calcium 8.9 (8.5-10.1) mg/dl Phosphorus 2.5 (2.5-4.9) mg/dl Magnesium 2.4 (1.8-2.4) mg/dl Total Bilirubin 0.6 (0.2-1) mg/dl AST 33 (15-37) U/L ALT 23 (12-78) U/L Alkaline Phosphatase 120 H (45-117) U/L Ammonia (11-32) umol/L Total Protein 6.4 (6.4-8.2) gm/dl Albumin 3.4 (3.4-5.0) gm/dl Globulin 3.0 (2.5-4.0) gm/dl Albumin/Globulin Ratio 1.1 (0.9-2) Procalcitonin (0-0.5) ng/ml Urine Opiates Screen (Neg) Ur Methadone, Qual (Neg) Urine Barbiturates (Neg) Ur Phencyclidine (PCP) (Neg) U Amphetamin/Meth Scrn (Neg) MDMA (Ecstasy) Screen (Neg) U Benzodiazepines Scrn (Neg) Ur Cocaine Metabolite (Neg) U Marijuana (THC) Screen (Neg) 12/07/20 12/07/20 Range/Units 10:15 09:49 WBC (4.8-10.8) K/uL RBC (4.7-6.1) M/uL Hgb (14.0-18.0) g/dL POC Hgb (14.0-18.0) g/dl Hct (42-52) % POC Hct (42-52) % MCV (80-100) fL MCH (25-34) pg MCHC (32-36) g/dL RDW Std Deviation (36.4-46.3) fL RDW Coeff of Daquan (11.5-14.5) % Plt Count (130-400) K/uL MPV (7.4-10.4) fL Immature Gran % (Auto) % Neut % (Auto) % Lymph % (Auto) % [place] % (Auto) % Eos % (Auto) % Baso % (Auto) % Neut # (Auto) (1.4-6.5) K/uL Lymph # (Auto) (1.2-3.4) K/uL [place] # (Auto) (0.11-0.59) K/uL Eos # (Auto) (0-0.5) K/uL Baso # (Auto) (0-0.2) K/uL Immature Gran # (Auto) (0.00-0.02) K/uL Sample Site POC pH (7.35-7.45) POC pCO2 (35-46) mmHg POC pO2 (80-95) mmHg POC HCO3 (19-24) jaime/L POC Total CO2 (24-31) mmol/L POC Base Excess (-9-1.8) jaime/L ABG pH 7.36 (7.35-7.45) ABG pH (Temp Correct) (7.35-7.45) ABG pCO2 69 H (35-46) mmHg ABG pCO2 (Temp Corrct (35-46) mmHg ABG pO2 88 (80-95) mmHg POC ABG pO2 at Pt Temp ABG HCO3 38 H (19-24) mmol/L POC ABG O2 Sat (90-95) % ABG O2 Saturation 96.1 H (90-95) % ABG Base Excess 10.3 H (-9-1.8) mEq/L Hussein Test Pos (Pos) Barometric Pressure 729.0 mm/Hg Oxygen Given 30% O2 Delivery Device POC O2 Rate POC FiO2 % IPAP POC Sodium (135-144) mmol/L Sodium (136-145) mmol/L POC Potassium (3.3-5.0) mmol/L Potassium (3.5-5.1) mmol/L Chloride (98-107) mmol/L Carbon Dioxide (21-32) mmol/L Anion Gap (3-11) BUN (7-18) mg/dl Creatinine (0.6-1.4) mg/dl Est Cr Clr Drug Dosing ml/min Est GFR ( Amer) ml/min Est GFR (Non-Af Amer) ml/min BUN/Creatinine Ratio (10-20) Glucose (70-99) mg/dl POC Glucose (70-99) mg/dl Lactate (0.4-2.0) mmol/L Calcium (8.5-10.1) mg/dl Phosphorus (2.5-4.9) mg/dl Magnesium (1.8-2.4) mg/dl Total Bilirubin (0.2-1) mg/dl AST (15-37) U/L ALT (12-78) U/L Alkaline Phosphatase (45-117) U/L Ammonia (11-32) umol/L Total Protein (6.4-8.2) gm/dl Albumin (3.4-5.0) gm/dl Globulin (2.5-4.0) gm/dl Albumin/Globulin Ratio (0.9-2) Procalcitonin < 0.05 (0-0.5) ng/ml Urine Opiates Screen (Neg) Ur Methadone, Qual (Neg) Urine Barbiturates (Neg) Ur Phencyclidine (PCP) (Neg) U Amphetamin/Meth Scrn (Neg) MDMA (Ecstasy) Screen (Neg) U Benzodiazepines Scrn (Neg) Ur Cocaine Metabolite (Neg) U Marijuana (THC) Screen (Neg) Medications Administered Current Inpatient Medications Acetaminophen (Acetaminophen 325 Mg Tab) 650 mg PO Q4H PRN PRN Reason: Pain or Fever Stop: 01/05/21 18:45 Albuterol (Albut/Ipratrop 3mg/0.5mg Neb 3 Ml Vial) 3 ml NEB QIDR SAE Stop: 01/05/21 18:59 Last Admin: 12/08/20 07:27 Dose: 3 ml Documented by: Atorvastatin Calcium (Atorvastatin 40 Mg Tab) 40 mg PO DAILY [facility] Stop: 01/06/21 08:59 Last Admin: 12/07/20 08:33 Dose: Not Given Documented by: Docusate Sodium (Docusate Sodium 100 Mg Cap) 100 mg PO QAM [facility] Stop: 01/06/21 08:59 Last Admin: 12/07/20 08:33 Dose: Not Given Documented by: Enoxaparin Sodium (Enoxaparin Inj 40 Mg/0.4 Ml Syr) 40 mg SQ Q24H [facility] Stop: 01/05/21 18:59 Last Admin: 12/07/20 19:44 Dose: 40 mg Documented by: Fluticasone Furoate (Fluticasone Furoate 100mcg 14 Puffs/Inhaler) 1 puffs INH DAILY [facility]; Protocol Stop: 01/06/21 08:59 Last Admin: 12/07/20 08:50 Dose: Not Given Documented by: Folic Acid (Folic Acid 1 Mg Tab) 1 mg PO QAM [facility] Stop: 01/07/21 08:59 Gabapentin (Gabapentin 300 Mg Cap) 300 mg PO HS [facility] Stop: 01/05/21 20:59 Last Admin: 12/07/20 22:09 Dose: Not Given Documented by: Azithromycin 500 mg/ Dextrose 255 mls @ 127.5 mls/hr IV Q24H [facility] Stop: 12/14/20 16:59 Last Infusion: 12/07/20 18:42 Dose: Infused Documented by: Pantoprazole Sodium 40 mg/ (Syringe) 10 mls @ 5 mls/min IV DAILY@1100 [facility] Stop: 01/06/21 10:59 Last Admin: 12/07/20 12:07 Dose: 5 mls/min Documented by: Methylprednisolone 40 mg/ (Syringe) 0.64 mls @ 1.5 mls/min IV Q8H SAE Stop: 01/06/21 09:59 Last Admin: 12/08/20 01:00 Dose: 1.5 mls/min Documented by: Dextrose/Sodium Chloride (D5w And Nss) 1,000 mls @ 40 mls/hr IV .Q24H SAE Stop: 01/07/21 05:14 Last Admin: 12/08/20 05:47 Dose: 40 mls/hr Documented by: Levothyroxine Sodium (Levothyroxine Sodium 50 Mcg Tablet) 50 mcg PO DAILYBB [facility] Stop: 01/06/21 06:29 Last Admin: 12/08/20 07:34 Dose: Not Given Documented by: Lisinopril (Lisinopril 10 Mg Tab) 10 mg PO DAILY [facility] Stop: 01/06/21 08:59 Last Admin: 12/07/20 08:33 Dose: Not Given Documented by: Miscellaneous (Remove Nicoderm Patch) 1 ea N/A DAILY@0859 [facility] Stop: 01/07/21 08:58 Montelukast Sodium (Montelukast Sodium 10 Mg Tablet) 10 mg PO DAILY [facility] Stop: 01/06/21 08:59 Last Admin: 12/07/20 08:33 Dose: Not Given Documented by: Multivitamins (Multivitamin Tab) 1 tab PO QAM [facility] Stop: 01/07/21 08:59 Nicotine (Nicotine 14 Mg/24 Hr Patch) 14 mg TD QAM [facility] Stop: 01/06/21 12:29 Last Admin: 12/07/20 12:50 Dose: 14 mg Documented by: Olanzapine (Olanzapine 10 Mg/2.1 Ml Sdv) 2.5 mg IM Q4H PRN PRN Reason: Anxiety/Agitation Stop: 01/07/21 01:30 Ondansetron HCl (Ondansetron Inj 2 Mg/Ml 2 Ml Vial) 4 mg IV Q6H PRN PRN Reason: Nausea Stop: 01/05/21 18:45 Pantoprazole Sodium (Pantoprazole 40 Mg Tab) 40 mg PO DAILY [facility] Stop: 01/06/21 08:59 Last Admin: 12/07/20 08:33 Dose: Not Given Documented by: Polyethylene Glycol (Polyethylene (Miralax) 17 Gm Pack) 17 gm PO DAILY PRN PRN Reason: Constipation Stop: 01/05/21 18:45 Sertraline HCl (Sertraline Hcl 100 Mg Tablet) 100 mg PO QAM [facility] Stop: 01/06/21 08:59 Last Admin: 12/07/20 08:33 Dose: Not Given Documented by: Thiamine HCl (Thiamine Hcl 100 Mg Tab) 100 mg PO QAM [facility] Stop: 01/08/21 08:59 Umeclidinium/Vilanterol (Umeclidinium/Vilanterol 62.5/25mcg 7 Puffs/Inhaler) 1 puffs INH DAILY [facility]; Protocol Stop: 01/06/21 08:59 Last Admin: 12/07/20 08:51 Dose: Not Given Documented by: Verapamil HCl (Verapamil Hcl 120 Mg Tabcr) 120 mg PO QAM [facility] Stop: 01/06/21 08:59 Last Admin: 12/07/20 08:34 Dose: Not Given Documented by:
[2020-12-08] MEDS: UMECLIDINIUM/VILANTEROL 62.5/25MCG 7 PUFFS/INHALER INH SCH (08:31)
[2020-12-08] MEDS: SERTRALINE HCL 100 MG TABLET PO SCH (08:31)
[2020-12-08] MEDS: PANTOprazole 40 MG TAB PO SCH (08:31)
[2020-12-08] MEDS: VERAPAMIL HCL 120 MG TABCR PO SCH (08:31)
[2020-12-08] MEDS ORDERED: ETOMIDATE 2 MG/ML 20 ML VIAL IV ONE (08:44)
[2020-12-08] MEDS ORDERED: ROCURONIUM BROMIDE 10 MG/ML 5 ML VIAL IV ONE (08:44)
[2020-12-08] MEDS ORDERED: FOLIC ACID 1 MG TAB PO SCH (09:00)
[2020-12-08] MEDS: NICOTINE 14 MG/24 HR PATCH TD SCH (09:31)
--- NOTE | 2020-12-08 12:00 | XRay Report ---
XR chest 1V portable HISTORY: 70 years-old Male Profound hypoxia acute hypoxia COMPARISON: Chest radiograph 12/07/2020 TECHNIQUE: Portable AP view of the chest FINDINGS: Cardiomediastinal and hilar silhouettes are unchanged. Emphysema with chronic interstitial coarsening . No pneumothorax, large pleural effusion, airspace consolidation or overt pulmonary edema. Possible trace pleural effusions. Bones appear grossly intact. IMPRESSION: Emphysema without acute process. ACT 112: Negative or not required by law. The above report was generated using voice recognition software. It may contain grammatical, syntax o r spelling errors. Electronically signed by: Leodan Wills M.D. 12/08/2020 11:59 AM
[2020-12-08] MEDS ORDERED: ACETAMINOPHEN 1,000 MG/100 ML VIAL IV PRN (12:18)
[2020-12-08] MEDS ORDERED: PANTOprazole 40 MG in SYRINGE 0 ML IV ONE (12:20)
[2020-12-08] MEDS ORDERED: THIAMINE HCL 100 MG in SYRINGE 9 ML IV SCH (12:30)
[2020-12-08] MEDS: FOLIC ACID 1 MG in SYRINGE 9.8 ML IV SCH (12:38)
[2020-12-08] MEDS: PANTOprazole 40 MG in SYRINGE 0 ML IV SCH ×2 (12:39→12:41)
[2020-12-08] MEDS: AZITHROMYCIN 500 MG in DEXTROSE 5% 250 ML IV SCH (17:16)
[2020-12-08] MEDS ORDERED: METOPROLOL TARTRATE 1 MG/ML VIAL IV STA ×2 (17:52→19:48)
--- NOTE | 2020-12-08 17:53 | Pulmonology Progress Note ---
Date of Service December 08, 2020 Assessment & Plan (1) COPD (chronic obstructive pulmonary disease): COPD type: unspecified COPD Qualified Code(s): J44.9 - Chronic obstructive pulmonary disease, unspecified (2) Acute on chronic respiratory failure with hypoxia and hypercapnia: (3) Lung nodule: Plan: Attending: Dr. Arias Impression: This is a 70-year-old male under the chronic care of [facility] pulmonary and sleep medicine clinic. Outpatient work-up has been performed by [facility]. Please see HPI on H&P regarding previous studies. Patient continues to be somewhat obtunded. This appears to be attributable to acute delirium. No clear evidence of infection. Tox screen negative. Compensated respiratory failure per ABG. Recommendations: 1. Chronic respiratory failure with hypercapnia and hypoxia: Patient has a history of sleep disorder as well as COPD with chronic hypoxia and hypercapnia. He has been prescribed trilogy noninvasive ventilation and is followed by the [facility] sleep lab. Settings on the trilogy are AVAPS-AE with an IPAP of 18 and an EPAP of 6. Continue BiPAP per protocol to maintain minute volume of 8 to 10 L. We will continue on BiPAP during the hospital stay and discharged home on trilogy per [facility]'s recommendation. Continue treatment for COPD exacerbation. Negative for COVID-19. Continue to attempt to reach family to determine power of regulatory attorney 2. COPD: Gold classification D. Severe obstruction with emphysema on CT scan. Patient has been on Trelegy inhaler and prefers Combivent. He should be on ICS/AC/LABA. While inpatient continue DuoNeb as needed for shortness of breath and wheezes. Would treat with scheduled Brio Ellipta (ICS/LABA) and Incruse Ellipta (AC) while inpatient and discharged on Combivent. Follow-up with the outpatient pulmonary office at [facility]. I would target an SaO2 of 88 to 92% while inpatient due to severe COPD. We will continue with steroids and azithr omycin for COPD exacerbation. 3. Altered mental status: ABGs reveal compensated respiratory failure. We will continue on BiPAP as listed above. CT scan of the head showed no specific abnormalities although there was motion artifact. Discussed with Dr. Garrison. Continue to work the patient up for dementia/delirium and treat underlying disorders. 4. Tobacco abuse: Patient admits to ongoing daily cigarette smoking. We will continue to encourage complete abstinence from tobacco products. Case discussed with Dr. Arias. Admission and Anticipated Discharge Date Admission Date: December 06, 2020 Subjective Attending: Dr. Arias Review of Systems Review of Systems: All systems reviewed & are unremarkable except as noted in Subjective Physical Exam Physical Exam: GENERAL : Patient is cachectic and appears ill EYES: No icterus, gaze conjugate NOSE: No evidence of epistaxis MOUTH: No lesions or candidiasis NECK: Supple LUNGS: Diffuse rhonchi. No appreciation of clear bronchospasm. HEART: Regular, rate in the 90s ABDOMEN: Soft, NT, ND, BS Present EXTREMITIES: No LE edema, pedal pulses intact NEURO: Awake and alert with acute delirium Results & Data Results & Data ([facility]) Vital Signs (Past 12 Hours) Vital Signs Temp Pulse Pulse Pulse Resp BP Pulse Ox 12/08/20 15:54 36.7 C 70 19 158/74 H 96 12/08/20 15:00 70 12/08/20 14:50 71 18 95 12/08/20 12:00 36.4 C L 75 19 157/84 H 96 12/08/20 10:42 70 24 98 12/08/20 10:41 70 24 97 12/08/20 08:33 78 12/08/20 07:58 36.6 C 79 20 166/97 H 99 12/08/20 07:30 64 26 H 98 12/08/20 07:28 64 26 H 98 Laboratory Results 12/08/20 05:15 12/08/20 05:15 Diagnostic Findings Chest X-Ray 12/06/20 14:56 XR chest 1V portable HISTORY: Dyspnea COMPARISON: Chest 06/28/2020. FINDINGS: No pneumothorax. Trace bilateral pleural effusions. The lungs are mildly hyperexpanded. The heart is normal in size. Mild diffuse chronic interstitial thickening and emphysema again noted. No evidence for pulmonary edema. No new focal lung consolidations to suggest pneumonia. IMPRESSION: 1. Trace bilateral pleural effusions. 2. Mild chronic interstitial thickening and mild emphysema. ACT 112: Negative or not required by law. Electronically signed by: Joshua Guzman M.D. 12/06/2020 4:[address] 12/06/20 20:01 CT chest diagnostic wo con CT DOSE: 297.63 mGy.cm CLINICAL HISTORY: 70 years-old Male with h/o CHANTELL nodule in the past. Follow-up study in a patient with pulmonary nodules TECHNIQUE: Multiaxial CT images of the chest were performed without contrast. A dose lowering technique was utilized adhering to the principles of ALARA. COMPARISON: CTA chest 06/16/2020, 05/24/2020 FINDINGS: Unremarkable thyroid. No adenopathy. The heart is normal in size without pericardial effusion. Atherosclerosis of the aorta without aneurysm. Trace pleural effusions. No pneumothorax. Severe emphysema. Bronchial wall thickening suggestive of bronchitis with bibasilar mucous plugging. Scattered c alcified pulmonary granulomata. Linear scarring of the right upper lobe is redemonstrated. No suspicious pulmonary nodules or masses are identified. Large pulmonary bulla of the lung bases are again noted. No acute process of the imaged upper abdomen. 7 mm right renal calculus. 4 mm calculus of the superior pole left kidney. Unremarkable soft tissues. Moderate compression fractures of the T8, and T9 vertebral bodies are new from prior. With mild inferior endplate compression at T7. No associated retropulsion or significant paravertebral edema. Chronic T10 and T12 compression deformities with chronic superior endplate Schmorl's node at T11. IMPRESSION: 1. Severe emphysema with bronchial wall thickening suggestive of bronchitis. Right basilar mucous plugging is again noted. 2. Trace pleural effusions. 3. Bilateral renal calculi. 4. Moderate acute versus subacute T8 and T9 compression deformities are new from 06/16/2020. No retropulsion or appreciable paravertebral edema. ACT 112: Negative or not required by law. Electronically signed by: Leodan Wills M.D. 12/06/2020 9:07 PM Chest X-Ray 12/07/20 08:55 XR chest 1V portable CLINICAL HISTORY: Respiratory failure. COMPARISON STUDY: Chest radiograph and chest CT December 06, 2020. FINDINGS: Severe emphysema is noted with lung hyperexpansion. There is no consolidation. No pneumothorax or pleural effusion is noted. There is no evidence for pulmonary edema. Trace right pleural effusion is present. IMPRESSION: 1. Severe emphysema. No consolidation. 2. Trace right pleural effusion. ACT 112: Negative or not required by law. Electronically signed by: Cam Perez M.D. 12/07/2020 9:[address] 12/07/20 10:07 CT head/brain wo con CLINICAL HISTORY: 70 years-old Male with AMS. Acutely altered mental status TECHNIQUE: Multiple axial CT images of the head were obtained without contrast. A dose lowering technique was utilized adhering to the principles of ALARA. CT DOSE: 1382.10 mGy.cm COMPARISON: Head CT 02/16/2019 FINDINGS: Motion degraded exam. The study was then repeated which was also motion degraded. No acute intracranial hemorrhage, midline shift, intracranial mass, hydrocephalus, territorial ischemia or abnormal extra-axial collection. Age- related involutional changes. White matter hypodensities suggestive of chronic microvascular ischemic disease. 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 The calvarium is intact. Prior bilateral lens repair. The paranasal sinuses, mastoid air cells, and middle ear cavities are clear. IMPRESSION: Motion degraded exam. No acute intracranial abnormality. ACT 112: Negative or not required by law. The above report was generated using voice recognition software. It may contain grammatical, syntax or spelling errors. Electronically signed by: Leodan Wills M.D. 12/07/2020 10:47 AM Chest X-Ray 12/08/20 11:33 XR chest 1V portable HISTORY: 70 years-old Male Profound hypoxia acute hypoxia COMPARISON: Chest radiograph 12/07/2020 TECHNIQUE: Portable AP view of the chest FINDINGS: Cardiomediastinal and hilar silhouettes are unchanged. Emphysema with chronic interstitial coarsening. No pneumothorax, large pleural effusion, airspace consolidation or overt pulmonary edema. Possible trace pleural effusions. Bones appear grossly intact. IMPRESSION: Emphysema without acute process. ACT 112: Negative or not required by law. The above report was generated using voice recognition software. It may contain grammatical, syntax or spelling errors. Electronically signed by: Leodan Wills M.D. 12/08/2020 11:59 AM Medications Administered Current Inpatient Medications Acetaminophen (Acetaminophen 325 Mg Tab) 650 mg PO Q4H PRN PRN Reason: Pain or Fever Stop: 01/05/21 18:45 Albuterol (Albut/Ipratrop 3mg/0.5mg Neb 3 Ml Vial) 3 ml NEB QIDR SAE Stop: 01/05/21 18:59 Last Admin: 12/08/20 14:50 Dose: 3 ml Documented by: Atorvastatin Calcium (Atorvastatin 40 Mg Tab) 40 mg PO DAILY SAE Stop: 01/06/21 08:59 Last Admin: 12/08/20 08:29 Dose: Not Given Documented by: Docusate Sodium (Docusate Sodium 100 Mg Cap) 100 mg PO QAM SAE Stop: 01/06/21 08:59 Last Admin: 12/08/20 08:29 Dose: Not Given Documented by: Enoxaparin Sodium (Enoxaparin Inj 40 Mg/0.4 Ml Syr) 40 mg SQ Q24H SAE Stop: 01/05/21 18:59 Last Admin: 12/07/20 19:44 Dose: 40 mg Documented by: Fluticasone Furoate (Fluticasone Furoate 100mcg 14 Puffs/Inhaler) 1 puffs INH DAILY [facility]; Protocol Stop: 01/06/21 08:59 Last Admin: 12/08/20 08:29 Dose: Not Given Documented by: Gabapentin (Gabapentin 300 Mg Cap) 300 mg PO HS SAE Stop: 01/05/21 20:59 Last Admin: 12/07/20 22:09 Dose: Not Given Documented by: Azithromycin 500 mg/ Dextrose 255 mls @ 127.5 mls/hr IV Q24H SAE Stop: 12/14/20 16:59 Last Admin: 12/08/20 17:16 Dose: 127.5 mls/hr Documented by: Pantoprazole Sodium 40 mg/ (Syringe) 10 mls @ 5 mls/min IV DAILY@1100 [facility] Stop: 01/06/21 10:59 Last Admin: 12/08/20 12:41 Dose: 5 mls/min Documented by: Methylprednisolone 40 mg/ (Syringe) 0.64 mls @ 1.5 mls/min IV Q8H SAE Stop: 01/06/21 09:59 Last Admin: 12/08/20 17:16 Dose: 1.5 mls/min Documented by: Dextrose/Sodium Chloride (D5w And Nss) 1,000 mls @ 40 mls/hr IV .Q24H SAE Stop: 01/07/21 05:14 Last Admin: 12/08/20 05:47 Dose: 40 mls/hr Documented by: Thiamine HCl 100 mg/ Syringe 10 mls @ 2 mls/min IV QAM SAE Stop: 01/07/21 12:29 Last Admin: 12/08/20 12:38 Dose: 2 mls/min Documented by: Folic Acid 1 mg/ Syringe 10 mls @ 5 mls/min IV QAM [facility] Stop: 01/07/21 12:29 Last Admin: 12/08/20 12:38 Dose: 5 mls/min Documented by: Acetaminophen (Ofirmev) 1,000 mg in 100 mls @ 400 mls/hr IV Q8H PRN PRN Reason: pain, discomfort, fever Stop: 12/11/20 12:17 Levothyroxine Sodium (Levothyroxine Sodium 50 Mcg Tablet) 50 mcg PO DAILYBB [facility] Stop: 01/06/21 06:29 Last Admin: 12/08/20 07:34 Dose: Not Given Documented by: Lisinopril (Lisinopril 10 Mg Tab) 10 mg PO DAILY [facility] Stop: 01/06/21 08:59 Last Admin: 12/08/20 08:30 Dose: Not Given Documented by: Miscellaneous (Remove Nicoderm Patch) 1 ea N/A DAILY@0859 [facility] Stop: 01/07/21 08:58 Last Admin: 12/08/20 09:31 Dose: 1 ea Documented by: Montelukast Sodium (Montelukast Sodium 10 Mg Tablet) 10 mg PO DAILY [facility] Stop: 01/06/21 08:59 Last Admin: 12/08/20 08:30 Dose: Not Given Documented by: Multivitamins (Multivitamin Tab) 1 tab PO [facility] Stop: 01/07/21 08:59 Last Admin: 12/08/20 08:30 Dose: Not Given Documented by: Nicotine (Nicotine 14 Mg/24 Hr Patch) 14 mg TD [facility] Stop: 01/06/21 12:29 Last Admin: 12/08/20 09:31 Dose: 14 mg Documented by: Olanzapine (Olanzapine 10 Mg/2.1 Ml Sdv) 2.5 mg IM Q4H PRN PRN Reason: Anxiety/Agitation Stop: 01/07/21 01:30 Ondansetron HCl (Ondansetron Inj 2 Mg/Ml 2 Ml Vial) 4 mg IV Q6H PRN PRN Reason: Nausea Stop: 01/05/21 18:45 Pantoprazole Sodium (Pantoprazole 40 Mg Tab) 40 mg PO DAILY [facility] Stop: 01/06/21 08:59 Last Admin: 12/08/20 08:31 Dose: Not Given Documented by: Polyethylene Glycol (Polyethylene (Miralax) 17 Gm Pack) 17 gm PO DAILY PRN PRN Reason: Constipation Stop: 01/05/21 18:45 Sertraline HCl (Sertraline Hcl 100 Mg Tablet) 100 mg PO QAM SAE Stop: 01/06/21 08:59 Last Admin: 12/08/20 08:31 Dose: Not Given Documented by: Umeclidinium/Vilanterol (Umeclidinium/Vilanterol 62.5/25mcg 7 Puffs/Inhaler) 1 puffs INH DAILY SAE; Protocol Stop: 01/06/21 08:59 Last Admin: 12/08/20 08:31 Dose: Not Given Documented by: Verapamil HCl (Verapamil Hcl 120 Mg Tabcr) 120 mg PO QAM SAE Stop: 01/06/21 08:59 Last Admin: 12/08/20 08:31 Dose: Not Given Documented by: PG Care Time/CCT Total # of Minutes Spent Total Time Spent with Patient: Total time spent is greater than 50% in coordination of care (as documented) at patient's floor/unit and/or counseling patient: 30 minutes Coding Level of Care Code 18164 Subseq Hosp Care Lvl 2 Diagnoses COPD (chronic obstructive pulmonary disease) J44.9 COPD type: unspecified COPD Acute on chronic respiratory failure with hypoxia and hypercapnia J96.21; J96.22 Lung nodule R91.1 Time Spent (min) 30
[2020-12-08] MEDS ORDERED: METOPROLOL TARTRATE 1 MG/ML VIAL IV ONE (17:56)
[2020-12-08] MEDS ORDERED: ADENOSINE IV SOLN 3 MG/ML 2 ML VIAL IV ONE ×2 (18:00→18:06)
[2020-12-08 18:37] LABS: Base Excess VBG 8.4 mEq/L; HCO3 VBG 37 mmol/L; PCO2 VBG 75 mmHg (38-50); PO2 VBG 26 mmHg; pH VBG 7.31 (7.36-7.41)
[2020-12-08 18:47] LABS: Oxygen Saturation VBG < 60.0 %
[2020-12-08 18:52] LABS: BUN Creatinine Ratio 28.8 (10-20); Blood Urea Nitrogen 30 mg/dl (7-18); Calcium 8.4 mg/dl (8.5-10.1); Carbon Dioxide 36 mmol/L (21-32); Chloride 95 mmol/L (98-107); Creatinine Clr Calc Pharmacy 53.5 ml/min; Est GFR (African American) 86.1 ml/min; Est GFR (Non-African American) 74.3 ml/min; Glucose 139 mg/dl (70-99); Magnesium 2.3 mg/dl (1.8-2.4); Potassium 4.3 mmol/L (3.5-5.1); Sodium 137 mmol/L (136-145)
[2020-12-08 18:57] LABS: Phosphorus 2.6 mg/dl (2.5-4.9); Troponin I < 0.015 ng/ml (0-0.045)
[2020-12-08] MEDS ORDERED: STAT IV Infusion **Titration per Protocol STA ×2 (19:10→20:55)
--- NOTE | 2020-12-08 19:15 | Critical Care Consultation ---
Date of Consultation December 08, 2020 Assessment & Plan (1) Atrial fibrillation with rapid ventricular response: (2) COPD (chronic obstructive pulmonary disease): (3) Acute on chronic respiratory failure with hypoxia and hypercapnia: (4) Lung nodule: (5) Altered mental state: 70-year-old male with a history of chronic hypoxemic respiratory failure, COPD, tobacco abuse, paroxysmal atrial fibrillation and alcohol abuse presenting to the hospital due to shortness of breath. Found to be in atrial fibrillation with rapid ventricular response and possible alcohol withdrawal. Neurologic: We will initiate Precedex for agitation delirium. Alcohol withdrawal protocol with Ativan ordered. Will initiate thiamine 200 mg 3 times daily. Folic acid 1 mg daily. Pulmonary: Continue BiPAP support. He has evidence of chronic hypercapnic respiratory failure. VBG demonstrating worsening hypercapnic respiratory failure with a pH of 7.31 and a PCO2 of 75. Continue methylprednisone for possible COPD exacerbation. Continue duo nebs. Continue azithromycin. Cardiovascular: Paroxysmal atrial fibrillation likely due to delirium and acute hypercapnic respiratory failure. We will initiate Precedex for agitation which should also help with his heart rate. If his heart rate continues to be refractory to Precedex, will initiate rate controlling agents with IV metoprolol. Gastrointestinal: N.p.o. Renal: No significant issues at this time Infectious disease: On azithromycin for his COPD exacerbation. We will add ceftriaxone empirically Blood cultures and urinalysis ordered. Procalcitonin 12/07/2020 was less than 0.05. Hematologic: Anemia of chronic disease. Stable. Continue Lovenox for DVT prophylaxis. Endocrine: We will check a TSH. VTE prophylaxis: Lovenox CODE STATUS: Full Family at bedside: None available at bedside Disposition: Remain in the ICU. May need to be intubated overnight he has worsening hypercapnic respiratory failure. I have personally spent 49 minutes of critical care time in the direct management of this patient. This is a life/limb threatening event. This includes time spent evaluating patient, direct bedside care, chart review, placing orders, interpretation of diagnostic studies, discussion with consultants, patient, and family members, as well as other required patient management activities. This time is exclusive of all separately billable procedures, and teaching time and separate from and in addition to any other critical care service time. Thank you for allowing us to participate in the care of this patient. History of Present Illness Reason for Consultation: Atrial fibrillation with rapid ventricular response and altered mental status Attending Physician: Adiel Garrison MD History of Present Illness 70-year-old male with a history of COPD, chronic hypoxemic respiratory failure, hypothyroidism, type 2 diabetes mellitus and atrial fibrillation who presented to the hospital due to shortness of breath and altered sensorium. He was seen earlier by the pulmonary PA [place]. I was asked by the hospitalist to evaluate the patient given sudden instability in his hemodynamics. He was hypertensive with systolics in the 90s and tachycardic with heart rates in the 150s and 160s. He appeared to have altered mental status. His BiPAP mask was in place. There were numerous providers and ancillary staff at bedside. Patient was given 6 mg of adenosine at bedside with no significant changes in his heart rate. Initial EKG demonstrated SVT. Repeat EKG when his heart rate slowed down to 130 after approximately 250 cc of fluid bolus demonstrated atrial fibrillation with a rapid ventricular response. Patient denies any chest pain. Labs ordered. Allergies Allergy/AdvReac Type Severity Reaction Status Date / Time turkey Allergy Unknown Verified 12/06/20 15:22 lorazepam [From Ativan] AdvReac Intermediate oversedation Verified 12/08/20 01:58 from 3 mg ativan Home Medications Medication Instructions Recorded Confirmed Type docusate sodium 100 mg capsule 100 mg PO QAM 01/28/18 12/06/20 History (Colace) gabapentin 300 mg capsule 300 mg PO HS 01/28/18 12/06/20 History fluticasone fur. 100 mcg-umeclid 1 inh INHALATION QAM 02/13/19 12/06/20 History 62.5 mcg-vilant 25 mcg inhalat.powder (Trelegy Ellipta) levothyroxine 50 mcg tablet 50 mcg PO DAILY 02/13/19 12/06/20 History sertraline 100 mg tablet 100 mg PO QAM 02/13/19 12/06/20 History verapamil 120 mg tablet,extended 120 mg PO QAM 02/13/19 12/06/20 History release albuterol sulfate 2.5 mg INHALATION Q4 PRN 06/16/20 12/06/20 History ipratropium 20 mcg-albuterol 100 1 puff INHALATION QID PRN 06/16/20 12/06/20 History mcg/actuation mist for inhalation (Combivent Respimat) azithromycin 250 mg tablet 250 mg PO UD 30 Days #30 tab 06/22/20 12/06/20 Rx (Zithromax) pantoprazole 40 mg tablet,delayed 40 mg PO DAILY #30 tab 06/28/20 12/06/20 Rx release (Protonix) atorvastatin 40 mg tablet 40 mg PO DAILY 12/06/20 12/06/20 History lisinopril 10 mg tablet 10 mg PO DAILY 12/06/20 12/06/20 History montelukast 10 mg tablet 10 mg PO DAILY 12/06/20 12/06/20 History Patient History Medical History (Updated 12/08/20 @ 19:23 by Kaz Arias MD) Alcohol use Altered mental state Atrial fibrillation with rapid ventricular response BPH (benign prostatic hyperplasia) COPD (chronic obstructive pulmonary disease) Depression Diabetes mellitus, type II Dyslipidemia Esophageal stenosis "s/p dilation June 2016" GERD (gastroesophageal reflux disease) HTN (hypertension) Hypothyroidism Lung nodule Mood disorder Paroxysmal atrial fibrillation Superficial thrombophlebitis "2009" TIA (transient ischemic attack) "1982" Surgical History S/P bronchoscopy Family History Other Diabetes Social History Smoking Status: Smoker, status unknown Tobacco Type: Cigarettes Cigarettes Per Day: 20; Second Hand Exposure: No; Hx Alcohol Use: Yes (per record) Alcohol type: beer Alcohol Intake Frequency Comment: 2 beers a day Hx Substance Use: No Preferred Language: Lithuanian Communication Ability: Impaired Career Information Specialist Required: No Beliefs That Will Affect Care: None marital status: Single Current Living Situation: Other Current Living Situation Comment: unknown-pt has caregivers that come tues/thrusday How many Children do You have: 0 Feels Safe at Home: Yes Assistive Devices: BiPap Review of Systems Review of Systems: All systems reviewed & are unremarkable except as noted in HPI & below Physical Exam Physical Exam: Constitutional: Chronically ill-appearing male in moderate distress. BiPAP mask in place. Eyes: Pupils are equal round and reactive to light. Conjunctivae are normal. Anicteric sclera. Ears nose, mouth and throat: BiPAP mask in place. No obvious deformities. Neck: Trachea is midline. Visual inspection is normal. Respiratory: Diminished lung sounds bilaterally. No wheezes. Cardiovascular: Regular rate and rhythm. No murmurs. No edema. Gastrointestinal: Normal bowel sounds, soft, nontender and nondistended. No hepatosplenomegaly noted. Musculoskeletal: No cyanosis. Patient is able to move all extremities. Skin: No rashes, warm dry and intact. Neurologic: No focal deficits. Psychiatric: Anxious and agitated Results & Data Results & Data ([facility]) Vital Signs (Past 12 Hours) Vital Signs Temp Pulse Pulse Pulse Resp BP Pulse Ox 12/08/20 18:52 97.9 F 143 H 24 122/93 92 12/08/20 15:54 98.1 F 70 19 158/74 H 96 12/08/20 15:00 70 12/08/20 14:50 71 18 95 12/08/20 12:00 97.5 F L 75 19 157/84 H 96 12/08/20 10:42 70 24 98 12/08/20 10:41 70 24 97 12/08/20 08:33 78 12/08/20 07:58 97.9 F 79 20 166/97 H 99 12/08/20 07:30 64 26 H 98 12/08/20 07:28 64 26 H 98 Vital signs, labs and imaging were personally reviewed Coding Level of Care Code Critical Care 1st 30-74 mins Diagnoses COPD (chronic obstructive pulmonary disease) J44.9 COPD type: unspecified COPD Acute on chronic respiratory failure with hypoxia and hypercapnia J96.21; J96.22 Lung nodule R91.1 Atrial fibrillation with rapid ventricular response I48.91 Altered mental state R41.82 Time Spent (min) 49 (1) COPD (chronic obstructive pulmonary disease) COPD type: unspecified COPD Qualified Code(s): J44.9 - Chronic obstructive pulmonary disease, unspecified
[2020-12-08] MEDS ORDERED: FOLIC ACID 1 MG in SYRINGE 9.8 ML IV STA (19:26)
[2020-12-08] MEDS ORDERED: DEXMEDETOMIDINE HCL 200 MCG in SODIUM CHLORIDE 0.9% 48 ML IV SCH (19:30)
[2020-12-08] MEDS ORDERED: LORazepam 2 MG/4 ML VIAL ONE (19:32)
[2020-12-08] MEDS ORDERED: LORazepam 2 MG/4 ML VIAL IV PRN (19:39)
[2020-12-08] MEDS ORDERED: ATIVAN IV ALCOHOL WITHDRAWL IV PRN (19:39)
[2020-12-08] MEDS ORDERED: LORazepam 3 MG/6 ML VIAL IV PRN (19:39)
[2020-12-08] MEDS ORDERED: LORazepam 1 MG/2 ML VIAL IV PRN (19:39)
[2020-12-08] MEDS ORDERED: AMIODARONE 150MG / 100ML D5W IV ONE (20:34)
[2020-12-08] MEDS ORDERED: RAPID SEQUENCE INDUCTION BAG ONE (20:43)
[2020-12-08] MEDS ORDERED: PROPOFOL IV EMULSION 10 MG/ML 100 ML VIAL IV ONE (20:53)
--- NOTE | 2020-12-08 20:55 | Procedure Note ---
Procedure Note Date of Service December 08, 2020 Note INTUBATION PROCEDURE NOTE: Dr. Kaz Arias A time-out was completed verifying correct patient, procedure, site, positioning. Patient was evaluated and required intubation for altered mental status and hypercapnic respiratory failure. Sedative agent used: 20 mg of etomidate Paralysis agent used: 50 mg of rocuronium Emergent consent was implied given patients rapidly declining clinical status and need for airway protection. Number of attempts: 1 The patient was prepared in the appropriate fashion. Sedation was achieved utilizing etomidate and rocuronium. The patient was easily ventilated using [id number] to achieve adequate oxygenation. A 7.5 Pashto endotracheal tube was placed under video laryngoscope guidance to 23 cm at the lip. The stylette was removed and balloon was inflated with 10mL of air. Appropriate Colorimetric change was appreciated. Bilateral breath sounds were heard without air sounds in the abdomen. Post Intubation Chest X-ray ordered Patient tolerated the procedure well and there were no immediate complications. Coding CPT Codes Resuscitation - Resuscitation: 04765 Endotracheal Intubation, emergency ([id number]) [facility] [place] Procedure Codes (Charges) Resuscitation Resuscitation: 40524 Endotracheal Intubation, emergency
[2020-12-08] MEDS: LORazepam 1 MG/2 ML VIAL IV PRN ×2 (21:42→21:44)
[2020-12-08 21:48] LABS: iSTAT Allen Test Pass; iSTAT Art Bld Gas pCO2 Correct 47 mmHg (35-46); iSTAT Art Bld Gas pH Corrected 7.487 (7.35-7.45); iSTAT Arterial Blood Gas HCO3 35 meg/L (19-24); iSTAT Arterial Blood Gas pCO2 47 mmHg (35-46); iSTAT Arterial Blood Gas pH 7.48 (7.35-7.45); iSTAT Arterial Blood Gas pO2 82 mmHg (80-95); iSTAT Arterial Blood Gas pO2 C 81; iSTAT Carbon Dioxide 37 mmol/L (24-31); iSTAT FiO2 28 %; iSTAT Hematocrit 29 % (42-52); iSTAT Hemoglobin 9.9 g/dl (14.0-18.0); iSTAT Potassium 4.2 mmol/L (3.3-5.0); iSTAT Site L Radial; iSTAT Sodium 137 mmol/L (135-144)
[2020-12-08] MEDS: propofoL 1,000 MG/100 ML VIAL IV SCH (21:48)
[2020-12-08] MEDS: cefTRIAXone SODIUM 1,000 MG in DEXTROSE 5% 50 ML IV SCH (21:48)
[2020-12-08] MEDS: THIAMINE HCL 200 MG in SODIUM CHLORIDE 0.9% 50 ML IV SCH (21:48)
[2020-12-08] MEDS: ENOXAPARIN INJ 40 MG/0.4 ML SYR SQ SCH (21:51)
[2020-12-08] MEDS: fentaNYL DRIP 1,250 MCG/250 ML BAG IV SCH (22:09)
[2020-12-08] MEDS: GABAPENTIN 300 MG CAP PO SCH (22:13)
[2020-12-09] MEDS ORDERED: GLYCOPYRROLATE 0.2 MG/ML VIAL IV ONE (03:02)
[2020-12-09] MEDS: ALBUT/IPRATROP 3MG/0.5MG NEB 3 ML VIAL NEB SCH ×5 (03:25→19:14)
[2020-12-09] MEDS: THIAMINE HCL 200 MG in SODIUM CHLORIDE 0.9% 50 ML IV SCH ×3 (03:35→19:52)
[2020-12-09] MEDS: propofoL 1,000 MG/100 ML VIAL IV SCH (03:48)
[2020-12-09 04:23] LABS: iSTAT Allen Test Pass; iSTAT Art Bld Gas pCO2 Correct 38 mmHg (35-46); iSTAT Art Bld Gas pH Corrected 7.531 (7.35-7.45); iSTAT Arterial Blood Gas HCO3 32 meg/L (19-24); iSTAT Arterial Blood Gas pCO2 38 mmHg (35-46); iSTAT Arterial Blood Gas pH 7.52 (7.35-7.45); iSTAT Arterial Blood Gas pO2 73 mmHg (80-95); iSTAT Arterial Blood Gas pO2 C 71; iSTAT Carbon Dioxide 33 mmol/L (24-31); iSTAT FiO2 28 %; iSTAT Hematocrit 29 % (42-52); iSTAT Hemoglobin 9.9 g/dl (14.0-18.0); iSTAT Potassium 3.6 mmol/L (3.3-5.0); iSTAT Site L Radial; iSTAT Sodium 136 mmol/L (135-144)
[2020-12-09 04:54] LABS: Hematocrit (blood only) 28.7 % (42-52); Hemoglobin 9.5 g/dL (14.0-18.0); Mean Corpuscular Hemoglobin 33.1 pg (25-34); Mean Corpuscular Hgb Conc 33.1 g/dL (32-36); Mean Platelet Volume 11.9 fL (7.4-10.4); Platelet Count 110 K/uL (130-400); RDW Standard Deviation 51.4 fL (36.4-46.3); Red Blood Count 2.87 M/uL (4.7-6.1)
[2020-12-09 05:22] LABS: BUN Creatinine Ratio 31.4 (10-20); Calcium 8.3 mg/dl (8.5-10.1); Creatinine Clr Calc Pharmacy 68.9 ml/min; Est GFR (African American) 106.4 ml/min; Est GFR (Non-African American) 91.8 ml/min; Magnesium 2.2 mg/dl (1.8-2.4); Phosphorus 2.2 mg/dl (2.5-4.9); Potassium 3.6 mmol/L (3.5-5.1)
[2020-12-09] MEDS ORDERED: POTASSIUM PHOS 3 MMOL/1 ML INFUSION IV STA (06:07)
[2020-12-09] MEDS ORDERED: POTASSIUM PHOSPHATE 21 MMOL in SODIUM CHLORIDE 0.9% 500 ML IV ONE (06:30)
[2020-12-09] MEDS: LEVOTHYROXINE SODIUM 50 MCG TABLET PO SCH (06:34)
[2020-12-09] MEDS: VERAPAMIL HCL 120 MG TABCR PO SCH (07:37)
[2020-12-09] MEDS: NICOTINE 14 MG/24 HR PATCH TD SCH (07:37)
[2020-12-09] MEDS: fentaNYL DRIP 1,250 MCG/250 ML BAG IV SCH (07:40)
--- NOTE | 2020-12-09 08:23 | XRay Report ---
XR chest 1V portable HISTORY: 70 years-old Male post intubation acute respiratory failure COMPARISON: Chest radiograph of same day at 11:27 AM TECHNIQUE: Supine AP view of the chest FINDINGS: Endotracheal tube has been placed terminating 3.9 cm superior to the fior. Cardiomediastinal and hi lar silhouettes are unchanged. Emphysema with chronic interstitial coarsening. There is no pneumothor ax, pleural effusion or overt pulmonary edema or airspace consolidation. Degenerative changes of the shoulders and spine. IMPRESSION: 1. Endotracheal tube terminates 3.9 cm superior to the fior. 2. Emphysema. ACT 112: Negative or not required by law. The above report was generated using voice recognition software. It may contain grammatical, syntax o r spelling errors. Electronically signed by: Leodan Wills M.D. 12/09/2020 8:21 AM
[2020-12-09] MEDS: DOCUSATE SODIUM 100 MG CAP PO SCH (08:39)
[2020-12-09] MEDS: FLUTICASONE FUROATE 100MCG 14 PUFFS/INHALER INH SCH (08:39)
[2020-12-09] MEDS ORDERED: THIAMINE HCL 100 MG TAB PO SCH (09:00)
[2020-12-09] MEDS ORDERED: FOLIC ACID 1 MG in SYRINGE 9.8 ML IV SCH (09:00)
[2020-12-09] MEDS: FOLIC ACID 1 MG in SYRINGE 9.8 ML IV SCH (09:29)
[2020-12-09] MEDS: methylPREDNISolone 40 MG in SYRINGE 0 ML IV SCH (09:29)
--- NOTE | 2020-12-09 09:34 | XRay Report ---
XR chest 1V portable HISTORY: Respiratory failure. COMPARISON: Chest 12/08/2020. FINDINGS: Endotracheal tube terminates 4.1 cm from the fior. This is unchanged. No pneumothorax. Th e heart is normal in size. No pleural effusions. Mild interstitial thickening which is likely chronic . Emphysema. No new focal lung consolidations to suggest pneumonia. IMPRESSION: 1. The endotracheal tube terminates 4.1 cm and the fior. 2. Emphysema. ACT 112: Negative or not required by law. Electronically signed by: Joshua Guzman M.D. 12/09/2020 9:33 AM
--- NOTE | 2020-12-09 09:34 | Critical Care Progress Note ---
Date of Service December 09, 2020 Assessment & Plan (1) Atrial fibrillation with rapid ventricular response: (2) COPD (chronic obstructive pulmonary disease): (3) Acute on chronic respiratory failure with hypoxia and hypercapnia: (4) Lung nodule: (5) Altered mental state: Plan: 70-year-old male with a history of chronic hypoxemic respiratory failure, COPD, tobacco abuse, paroxysmal atrial fibrillation and alcohol abuse presenting to the hospital due to shortness of breath. Found to be in atrial fibrillation with rapid ventricular response and possible alcohol withdrawal. Neurologic: Likely alcohol withdrawal. Continue thiamine 200 mg 3 times daily. Folic acid 1 mg daily. Weaning sedation to perform a spontaneousa wakening trial. Pulmonary: Intubated for hypercapnic respiratory failure and airway protection. Continue methylprednisone for possible COPD exacerbation. Continue duo nebs. Continue azithromycin. Cardiovascular: Paroxysmal atrial fibrillation likely due to delirium and acute hypercapnic respiratory failure. Currently bradycardic likely due to sedation. Received a dose of amiodarone last evening and converted to a sinus rhythm. He does have a history of paroxysmal atrial fibrillation. He is not currently on anticoagulati on. He is having bleeding from his oropharynx. Once bleeding improves, will initiate heparin infusion. Gastrointestinal: We will start tube feeds if unable to extubate. Renal: No significant issues at this time Infectious disease: On azithromycin for his COPD exacerbation. Continue ceftriaxone empirically. Blood cultures and urinalysis ordered. Procalcitonin 12/07/2020 was less than 0.05. Hematologic: Anemia of chronic disease. Stable. Hold chemical DVT prophylaxis at this time. SCDs. Endocrine: TSH normal. VTE prophylaxis: SCD CODE STATUS: Full Family at bedside: None available at bedside Disposition: Remain in the ICU. Palliative care consulted due to poor prognosis. I have personally spent 44 minutes of critical care time in the direct management of this patient. This is a life/limb threatening event. This includes time spent evaluating patient, direct bedside care, chart review, placing orders, interpretation of diagnostic studies, discussion with consultants, patient, and family members, as well as other required patient management activities. This time is exclusive of all separately billable procedures, and teaching time and separate from and in addition to any other critical care service time. Thank you for allowing us to participate in the care of this patient. Admission and Anticipated Discharge Date Admission Date: December 06, 2020 Subjective Patient seen and examined this morning. He is currently heavily sedated with propofol and fentanyl. Bradycardic overnight. Received a dose of glycopyrrolate due to bradycardia. Early in the night he received amiodarone due to atrial fibrillation with rapid ventricular response. He was intubated last night due to hypoxemic and hypercapnic respiratory failure. Review of Systems Review of Systems: Unobtainable due to endotracheal tube and Unobtainable due to reduced consciousness Physical Exam Physical Exam: Constitutional: Chronically ill-appearing male in no significant distress. Intubated. Eyes: Pupils are equal round and reactive to light. Conjunctivae are normal. Anicteric sclera. Ears, nose, mouth and throat: Endotracheal tube in place. Neck: Trachea is midline. Visual inspection is normal. Respiratory: Diminished lung sounds bilaterally. No wheezes. Cardiovascular: Regular rate and rhythm. No murmurs. No edema. Gastrointestinal: Normal bowel sounds, soft, nontender and nondistended. Musculoskeletal: No cyanosis. Patient is able to move all extremities. Skin: No rashes, warm dry and intact. Neurologic: No focal deficits. Psychiatric: Anxious and agitated Results & Data Results & Data ([facility]) Vital Signs (Past 12 Hours) Vital Signs Pulse Resp BP Pulse Ox 12/09/20 08:07 44 L 14 95 12/09/20 03:10 66 15 95 12/09/20 03:00 39 L 15 155/79 H 95 12/09/20 02:30 39 L 15 95 12/09/20 02:00 40 L 15 95 12/09/20 01:30 40 L 15 95 12/09/20 01:00 42 L 15 94 12/09/20 00:30 44 L 15 94 12/09/20 00:00 49 L 15 94 12/08/20 23:30 55 L 15 95 12/08/20 23:15 45 L 15 95 12/08/20 23:00 50 L 15 93 12/08/20 22:30 46 L 15 94 12/08/20 22:00 48 L 15 96 12/08/20 21:40 155 H 122/93 12/08/20 21:30 60 15 97 vital signs, labs and imaging personally reviewed. Coding Level of Care Code Critical Care 1st 30-74 mins Diagnoses Atrial fibrillation with rapid ventricular response I48.91 COPD (chronic obstructive pulmonary disease) J44.9 COPD type: unspecified COPD Acute on chronic respiratory failure with hypoxia and hypercapnia J96.21; J96.22 Lung nodule R91.1 Altered mental state R41.82 Time Spent (min) 44 (1) COPD (chronic obstructive pulmonary disease) COPD type: unspecified COPD Qualified Code(s): J44.9 - Chronic obstructive pulmonary disease, unspecified
--- NOTE | 2020-12-09 09:39 | Electrocardiogram Report ---
Test Reason : Blood Pressure : / mmHG Vent. Rate : 136 BPM Atrial Rate : 133 BPM P-R Int : 000 ms QRS Dur : 076 ms QT Int : 278 ms P-R-T Axes : 000 079 074 degrees QTc Int : 418 ms Poor data quality, interpretation may be adversely affected Atrial fibrillation with rapid ventricular response Abnormal ECG When compared with ECG of 08-DEC-2020 17:53, (unconfirmed) Atrial fibrillation has replaced Sinus rhythm ST no longer depressed in Inferior leads Confirmed by Helio Landeros ([id number]) on 12/09/2020 9:39:05 AM Referred By: REFERRED SELF Confirmed By:Ronnie Landeros
--- NOTE | 2020-12-09 09:40 | Electrocardiogram Report ---
Test Reason : Blood Pressure : / mmHG Vent. Rate : 167 BPM Atrial Rate : 037 BPM P-R Int : 000 ms QRS Dur : 084 ms QT Int : 286 ms P-R-T Axes : 000 067 071 degrees QTc Int : 477 ms Poor data quality, interpretation may be adversely affected Supraventricular tachycardia Marked ST abnormality, possible inferior subendocardial injury Abnormal ECG When compared with ECG of 06-DEC-2020 14:39, Vent. rate has increased BY [address] now depressed in Inferior leads ST now depressed in Anterolateral leads Confirmed by Helio Landeros ([id number]) on 12/09/2020 9:39:49 AM Referred By: REFERRED SELF Confirmed By:Ronnie Landeros
[2020-12-09] MEDS: SERTRALINE HCL 100 MG TABLET PO SCH (09:58)
[2020-12-09] MEDS: MULTIVITAMIN TAB PO SCH (09:58)
[2020-12-09] MEDS: MONTELUKAST SODIUM 10 MG TABLET PO SCH (09:58)
[2020-12-09] MEDS: lisinopril 10 MG TAB PO SCH (09:58)
[2020-12-09] MEDS: UMECLIDINIUM/VILANTEROL 62.5/25MCG 7 PUFFS/INHALER INH SCH (09:58)
[2020-12-09 10:41] LABS: Appearance Urine Clear (Clear); Bacteria Urine Automated Negative (Negative); Bilirubin Urine Negative (Negative); Blood Urine 2+ (Negative); Color Urine Yellow; Glucose Urine UA Negative (Negative); Ketones Urine 1+ (Negative); Leukocyte Esterase Urine 1+ (Negative); Nitrite Urine Negative (Negative); Protein Urine Negative (Negative); RBC Urine Automated >30 /hpf (0-4); Urobilinogen Urine Negative (Negative); pH Urine 6.5 (4.5-7.5)
[2020-12-09] MEDS: PANTOprazole 40 MG in SYRINGE 0 ML IV SCH (11:12)
[2020-12-09] MEDS: PROPOFOL BOLUS FROM BAG IV PRN ×2 (12:53→15:58)
[2020-12-09] MEDS: D5W AND NSS 1,000 ML IV SCH (12:53)
[2020-12-09] MEDS ORDERED: PEPTAMEN 1.5 CAL 1,000 ML BAG PO SCH (15:45)
[2020-12-09] MEDS: TUBE FEEDING WATER FLUSH GT SCH ×2 (16:35→19:53)
[2020-12-09] MEDS: PROSOURCE NO CARB 30 ML/PKT GT SCH (16:35)
[2020-12-09] MEDS: AZITHROMYCIN 500 MG in DEXTROSE 5% 250 ML IV SCH (16:38)
[2020-12-09] MEDS: cefTRIAXone SODIUM 1,000 MG in DEXTROSE 5% 50 ML IV SCH (19:51)
[2020-12-09] MEDS: ENOXAPARIN INJ 40 MG/0.4 ML SYR SQ SCH (19:51)
[2020-12-09] MEDS: GABAPENTIN 250 MG/5 ML 470 ML BTL PO SCH (20:06)
[2020-12-10] MEDS: TUBE FEEDING WATER FLUSH GT SCH ×4 (00:32→11:52)
[2020-12-10] MEDS: D5W AND NSS 1,000 ML IV SCH ×2 (00:41→13:56)
[2020-12-10] MEDS: propofoL 1,000 MG/100 ML VIAL IV SCH (00:41)
[2020-12-10] MEDS: THIAMINE HCL 200 MG in SODIUM CHLORIDE 0.9% 50 ML IV SCH ×3 (04:33→20:23)
[2020-12-10 05:27] LABS: iSTAT Allen Test Pass; iSTAT Art Bld Gas pCO2 Correct 54 mmHg (35-46); iSTAT Arterial Blood Gas HCO3 34 meg/L (19-24); iSTAT Arterial Blood Gas pCO2 54 mmHg (35-46); iSTAT Arterial Blood Gas pO2 71 mmHg (80-95); iSTAT Arterial Blood Gas pO2 C 71; iSTAT Carbon Dioxide 35 mmol/L (24-31); iSTAT FiO2 28 %; iSTAT Hematocrit 30 % (42-52); iSTAT Hemoglobin 10.2 g/dl (14.0-18.0); iSTAT Potassium 3.3 mmol/L (3.3-5.0); iSTAT Site R Brachial; iSTAT Sodium 138 mmol/L (135-144)
[2020-12-10] MEDS: LEVOTHYROXINE SODIUM 50 MCG TABLET PO SCH (05:49)
[2020-12-10 06:19] LABS: BUN Creatinine Ratio 26.6 (10-20); Calcium 7.9 mg/dl (8.5-10.1); Creatinine Clr Calc Pharmacy 64.8 ml/min; Est GFR (African American) 103.8 ml/min; Est GFR (Non-African American) 89.5 ml/min; Phosphorus 2.9 mg/dl (2.5-4.9); Potassium 3.5 mmol/L (3.5-5.1)
[2020-12-10 06:21] LABS: Hematocrit (blood only) 31.2 % (42-52); Hemoglobin 10.2 g/dL (14.0-18.0); Mean Corpuscular Hemoglobin 32.7 pg (25-34); Mean Corpuscular Hgb Conc 32.7 g/dL (32-36); Mean Platelet Volume 12.2 fL (7.4-10.4); Platelet Count 107 K/uL (130-400); Platelet Estimate Decreased (Normal); RDW Coefficient of Variation 14.6 % (11.5-14.5); RDW Standard Deviation 52.6 fL (36.4-46.3); Red Blood Count 3.12 M/uL (4.7-6.1); White Blood Count 7.76 K/uL (4.8-10.8)
[2020-12-10] MEDS: ALBUT/IPRATROP 3MG/0.5MG NEB 3 ML VIAL NEB SCH ×4 (06:51→18:58)
--- NOTE | 2020-12-10 07:56 | XRay Report ---
XR chest 1V portable HISTORY: Respiratory distress. Follow-up. COMPARISON: Chest 12/09/2020. FINDINGS: Rotated study. Endotracheal tube terminates 2.3 cm from the fior. Nasogastric tube termin ates below the diaphragm. The heart is normal in size. No pneumothorax. Trace right pleural effusion. Emphysema is again noted. No new focal lung consolidations. IMPRESSION: 1. Rotated study. 2. Satisfactory support line placement. 3. Trace right pleural effusion. ACT 112: Negative or not required by law. Electronically signed by: Joshua Guzman M.D. 12/10/2020 7:55 AM
[2020-12-10] MEDS: DOCUSATE SODIUM SYRUP 100 MG/10 ML UDC PO SCH (08:23)
[2020-12-10] MEDS: FLUTICASONE FUROATE 100MCG 14 PUFFS/INHALER INH SCH (08:23)
[2020-12-10] MEDS: SERTRALINE HCL 100 MG TABLET PO SCH (08:24)
[2020-12-10] MEDS: MONTELUKAST SODIUM 10 MG TABLET PO SCH (08:24)
[2020-12-10] MEDS: UMECLIDINIUM/VILANTEROL 62.5/25MCG 7 PUFFS/INHALER INH SCH (08:24)
[2020-12-10] MEDS: MULTIVITAMIN TAB PO SCH (08:24)
[2020-12-10] MEDS: NICOTINE 14 MG/24 HR PATCH TD SCH (08:24)
[2020-12-10] MEDS: methylPREDNISolone 40 MG in SYRINGE 0 ML IV SCH (08:26)
[2020-12-10] MEDS: FOLIC ACID 1 MG in SYRINGE 9.8 ML IV SCH (08:27)
[2020-12-10] MEDS: lisinopril 10 MG TAB PO SCH (08:53)
[2020-12-10] MEDS: PROSOURCE NO CARB 30 ML/PKT GT SCH (08:53)
--- NOTE | 2020-12-10 10:37 | Hospitalist Progress Note ---
Date of Service December 09, 2020 Assessment & Plan (1) Acute on chronic respiratory failure with hypoxia and hypercapnia: (2) COPD exacerbation: Plan: This is a 70-year-old male with past medical history of COPD, chronic respiratory failure on 3-4 L nasal cannula O2, hypothyroidism, type 2 diabetes, paroxysmal atrial fibrillation, hypertension, ongoing tobacco use, BPH and other medical problems listed below who presents with progressive shortness of breath and cough for the past 2 weeks and was found to have COPD exacerbation. Follows with Marissa gonzales has not come to appointment since last January. ABG - pH 7.3, pco2 71, HCO3 34 on admission (however per ED note pH 7.2, pCO2 90s) Bipap started, continue to monitor respiratory function closely Given 6mg IV Dexamethasone, duoneb and Azithromycin in ED Continued Bipap overnight (12/07) AM tried NC desatted to low 80s Duonebs QIDR, IV Azithromycin, IV solumedrol 40mg Q8H, Trelegy inh Afebrile, no evidence of PNA on imaging Repeat ABG (12/07) AM seems improved pH 7.34 PCO2 70 However patient lethargic, does not answer appropriately stat ABG and chest x-ray ordered pulmonary medicine contacted Repeat CXR (12/07) IMPRESSION: 1. Severe emphysema. No consolidation. 2. Trace right pleural effusion. 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 notified Attempt to notify family as well, however case management currently searching for correct contact information Palliative medicine also consulted 12/09 Patient has been on BiPAP most of the admission, and barely responding or tremulous and not cooperative/likely withdrawing from alcohol CT head negative, ammonia normal, lactic acid normal, tox screen normal procalcitonin normal pH improving on BiPAP, PCO2 also improving on BiPAP, however still elevated Pulmonary medicine been following Had an episode at night when he was again unresponsive when he received Ativan and therefore this was stopped (as above) however yesterday evening (12/08 PM) Patient went into SVT/A. fib RVR, code purple was called and patient was then transferred to ICU overnight patient required intubation Currently patient is intubated and sedated, in care of ICU team (3) Lung nodule: Plan: Outpatient CT chest wo con from 2018 showing spiculated left upper lobe lung nodule measuring up to 1.5 cm that was highly concerning for malignancy PET-CT or percutaneous biopsy recommended at that time. Patient not compliant with either Will obtain routine CT chest wo con CT chest: IMPRESSION: 1. Severe emphysema with bronchial wall thickening suggestive of bronchitis. Right basilar mucous plugging is again noted. 2. Trace pleural effusions. 3. Bilateral renal calculi. 4. Moderate acute versus subacute T8 and T9 compression deformities are new from 06/16/2020. No retropulsion or appreciable paravertebral edema. (4) HTN (hypertension): Plan: Normotensive. Continue lisinopril, verapamil if can take PO (5) Diabetes mellitus, type II: Plan: A1c 5.1 in April 2020, no longer on diabetic medications, carb consistent diet (6) Paroxysmal atrial fibrillation: Plan: Not on anticoagulation secondary to a history of bleeding and compliance issues. Continue verapamil if can take PO (7) Alcohol dependence: Plan: History of rehab earlier this year. Serum alcohol level pending No signs/sx of withdrawal At risk protocol ordered (8) Hypothyroidism: Plan: Continue levothyroxine (9) BPH (benign prostatic hyperplasia): Plan: Bladder scan PRN (10) Mood disorder: Plan: Continue sertraline DVT Ppx: SQ Lovenox Code status: FULL PCP: Dr. Rizzo Dispo: Transferred to ICU yesterday Admission and Anticipated Discharge Date Admission Date: December 06, 2020 Subjective Patient seen in follow-up of acute on chronic respiratory failure, with hypoxia, hypercapnia - believed to be secondary to COPD exacerbation, encephalopathy, likely alcohol withdrawal Pt on BiPAP most of the time since admission, however barely responding or is tremulous, likely withdrawing from alcohol After receiving Ativan overnight, however again unresponsive In the evening yesterday patient was code purple as he went into SVT/A. fib with RVR, he was then transferred to ICU and overnight required intubation Attempted to contact family, case management working on finding proper contact information as the one provided/in our computer system does not seem to be correct or helpful Currently [facility] unable to obtain ROS, care per ICU team Review of Systems Review of Systems: Unobtainable due to cognitive status, Unobtainable due to endotracheal tube and Unobtainable due to reduced consciousness Physical Exam Physical Exam: General Appearance: thin male, appears chronically ill, currently sedated and intubated Head: normocephalic, atraumatic Eyes: normal inspection,PERRL ENT: external ear and nose normal, Endotracheal tube in place Neck: normal visual inspection Respiratory: + somewhat diminished breath sounds Cardiovascular: regular rate, rhythm, no murmur noted, no LE edema Chest: normal inspection of chest Abdomen/GI: normal bowel sounds, soft, nontender Extremities/Musculoskeletal: no LE edema Neurologic: sedated Skin: no rash, warm/dry Results & Data Results & Data ([facility]) Vital Signs (Past 12 Hours) Vital Signs Temp Pulse Resp BP Pulse Ox 12/09/20 23:30 63 14 93 12/09/20 23:00 68 14 137/75 95 12/09/20 22:30 64 14 100 Medications Administered Current Inpatient Medications Acetaminophen (Acetaminophen 325 Mg Tab) 650 mg PO Q4H PRN PRN Reason: Pain or Fever Stop: 01/05/21 18:45 Albuterol (Albut/Ipratrop 3mg/0.5mg Neb 3 Ml Vial) 3 ml NEB QIDR [facility] Stop: 01/05/21 18:59 Last Admin: 12/10/20 06:51 Dose: 3 ml Documented by: Atorvastatin Calcium (Atorvastatin 40 Mg Tab) 40 mg PO DAILY [facility] Stop: 01/06/21 08:59 Last Admin: 12/08/20 08:29 Dose: Not Given Documented by: Docusate Sodium (Docusate Sodium Syrup 100 Mg/10 Ml Udc) 100 mg PO QAM [facility] Stop: 01/09/21 08:59 Last Admin: 12/10/20 08:23 Dose: 100 mg Documented by: Enoxaparin Sodium (Enoxaparin Inj 40 Mg/0.4 Ml Syr) 40 mg SQ Q24H [facility] Stop: 01/05/21 18:59 Last Admin: 12/09/20 19:51 Dose: 40 mg Documented by: Enteral Nutritional Formula (Peptamen 1.5 Jin 1,000 Ml Bag) 1,000 ml PO CONT [facility]; Protocol Stop: 01/08/21 15:44 Last Admin: 12/09/20 16:35 Dose: 1,000 ml Documented by: Fentanyl Citrate (Fentanyl Bolus From Bag) 50 mcg IV Q60M PRN PRN Reason: Pain or Agitation Stop: 12/22/20 20:54 Last Admin: 12/09/20 14:17 Dose: 50 mcg Documented by: Fluticasone Furoate (Fluticasone Furoate 100mcg 14 Puffs/Inhaler) 1 puffs INH DAILY [facility]; Protocol Stop: 01/06/21 08:59 Last Admin: 12/10/20 08:23 Dose: Not Given Documented by: Gabapentin (Gabapentin 250 Mg/5 Ml 470 Ml Btl) 300 mg PO HS [facility] Stop: 01/08/21 20:59 Last Admin: 12/09/20 20:06 Dose: 300 mg Documented by: Azithromycin 500 mg/ Dextrose 255 mls @ 127.5 mls/hr IV Q24H [facility] Stop: 12/14/20 16:59 Last Infusion: 12/09/20 18:50 Dose: Infused Documented by: Pantoprazole Sodium 40 mg/ (Syringe) 10 mls @ 5 mls/min IV DAILY@1100 [facility] Stop: 01/06/21 10:59 Last Admin: 12/09/20 11:12 Dose: 5 mls/min Documented by: Folic Acid 1 mg/ Syringe 10 mls @ 5 mls/min IV QAM [facility] Stop: 01/07/21 12:29 Last Admin: 12/10/20 08:27 Dose: 5 mls/min Documented by: Acetaminophen (Ofirmev) 1,000 mg in 100 mls @ 400 mls/hr IV Q8H PRN PRN Reason: pain, discomfort, fever Stop: 12/11/20 12:17 Dexmedetomidine HCl 200 mcg/ (Sodium Chloride) 50 mls @ 0 mls/hr IV .Q0M [facility]; Protocol Stop: 12/12/20 19:29 Last Titration: 12/08/20 22:14 Dose: 0 mcg/kg/hr, 0 mls/hr Documented by: Thiamine HCl 200 mg/ Sodium (Chloride) 52 mls @ 208 mls/hr IV Q8H [facility] Stop: 01/07/21 19:29 Last Infusion: 12/10/20 05:03 Dose: Infused Documented by: Ceftriaxone Sodium 1,000 mg/ (Dextrose) 50 mls @ 100 mls/hr IV Q24H [facility]; Protocol Stop: 12/15/20 19:59 Last Infusion: 12/09/20 20:22 Dose: Infused Documented by: Methylprednisolone 40 mg/ (Syringe) 0.64 mls @ 1.5 mls/min IV DAILY [facility] Stop: 01/08/21 08:59 Last Admin: 12/10/20 08:26 Dose: 1.5 mls/min Documented by: Lorazepam (Ativan) 1 mg in 2 mls @ 2 mls/min IV UD PRN; Protocol PRN Reason: EtOH Withdrawl AWSS Score 6,7 Stop: 01/07/21 19:38 Last Admin: 12/08/20 21:44 Dose: 2 mls/min Documented by: Lorazepam (Ativan) 2 mg in 4 mls @ 4 mls/min IV UD PRN; Protocol PRN Reason: EtOH Withdrawl AWSS Score 8,9 Stop: 01/07/21 19:38 Lorazepam (Ativan) 3 mg in 6 mls @ 4 mls/min IV ONCE PRN; Protocol PRN Reason: EtOH Withdrawl AWSS Score >=10 Stop: 01/07/21 19:38 Fentanyl Citrate (Fentanyl Drip) 1,250 mcg in 250 mls @ 5 mls/hr IV .Q50H [facility]; Protocol Stop: 12/22/20 20:59 Last Titration: 12/10/20 07:00 Dose: 25 mcg/hr, 5 mls/hr Documented by: Propofol (Diprivan) 1,000 mg in 100 mls @ 4.959 mls/hr IV .[id number] [facility]; Protocol Stop: 12/11/20 20:59 Last Titration: 12/10/20 07:00 Dose: 15 mcg/kg/min, 5 mls/hr Documented by: Dextrose/Sodium Chloride (D5w And Nss) 1,000 mls @ 80 mls/hr IV .[id number] [facility] Stop: 01/08/21 12:44 Last Admin: 12/10/20 00:41 Dose: 80 mls/hr Documented by: Levothyroxine Sodium (Levothyroxine Sodium 50 Mcg Tablet) 50 mcg PO DAILYBB [facility] Stop: 01/06/21 06:29 Last Admin: 12/10/20 05:49 Dose: 50 mcg Documented by: Lisinopril (Lisinopril 10 Mg Tab) 10 mg PO DAILY [facility] Stop: 01/06/21 08:59 Last Admin: 12/10/20 08:53 Dose: Not Given Documented by: Miscellaneous (Remove Nicoderm Patch) 1 ea N/A DAILY@0859 [facility] Stop: 01/07/21 08:58 Last Admin: 12/10/20 08:23 Dose: 1 ea Documented by: Montelukast Sodium (Montelukast Sodium 10 Mg Tablet) 10 mg PO DAILY [facility] Stop: 01/06/21 08:59 Last Admin: 12/10/20 08:24 Dose: 10 mg Documented by: Multivitamins (Multivitamin Tab) 1 tab PO QAM [facility] Stop: 01/07/21 08:59 Last Admin: 12/10/20 08:24 Dose: 1 tab Documented by: Nicotine (Nicotine 14 Mg/24 Hr Patch) 14 mg TD QAM [facility] Stop: 01/06/21 12:29 Last Admin: 12/10/20 08:24 Dose: 14 mg Documented by: Nutritional Formula (Prosource No Carb 30 Ml/Pkt) 30 ml GT DAILY [facility] Stop: 01/08/21 15:59 Last Admin: 12/10/20 08:53 Dose: 30 ml Documented by: Olanzapine (Olanzapine 10 Mg/2.1 Ml Sdv) 2.5 mg IM Q4H PRN PRN Reason: Anxiety/Agitation Stop: 01/07/21 01:30 Ondansetron HCl (Ondansetron Inj 2 Mg/Ml 2 Ml Vial) 4 mg IV Q6H PRN PRN Reason: Nausea Stop: 01/05/21 18:45 Pantoprazole Sodium (Pantoprazole 40 Mg Tab) 40 mg PO DAILY [facility] Stop: 01/06/21 08:59 Last Admin: 12/08/20 08:31 Dose: Not Given Documented by: Polyethylene Glycol (Polyethylene (Miralax) 17 Gm Pack) 17 gm PO DAILY PRN PRN Reason: Constipation Stop: 01/05/21 18:45 Propofol (Propofol Bolus From Bag) 20 mg IV Q5M PRN PRN Reason: Sedation Stop: 12/11/20 20:54 Last Admin: 12/09/20 15:58 Dose: 20 mg Documented by: Sertraline HCl (Sertraline Hcl 100 Mg Tablet) 100 mg PO QAM [facility] Stop: 01/06/21 08:59 Last Admin: 12/10/20 08:24 Dose: 100 mg Documented by: Sterile Water (Tube Feeding Water Flush) 60 ml GT Q4H [facility] Stop: 01/08/21 15:59 Last Admin: 12/10/20 08:23 Dose: 60 ml Documented by: Umeclidinium/Vilanterol (Umeclidinium/Vilanterol 62.5/25mcg 7 Puffs/Inhaler) 1 puffs INH DAILY [facility]; Protocol Stop: 01/06/21 08:59 Last Admin: 12/10/20 08:24 Dose: Not Given Documented by: Verapamil HCl (Verapamil Hcl 120 Mg Tabcr) 120 mg PO QAM [facility] Stop: 01/06/21 08:59 Last Admin: 12/09/20 07:37 Dose: Not Given Documented by:
--- NOTE | 2020-12-10 10:45 | Hospitalist Progress Note ---
Date of Service December 10, 2020 Assessment & Plan (1) Acute on chronic respiratory failure with hypoxia and hypercapnia: (2) COPD exacerbation: Plan: This is a 70-year-old male with past medical history of COPD, chronic respiratory failure on 3-4 L nasal cannula O2, hypothyroidism, type 2 diabetes, paroxysmal atrial fibrillation, hypertension, ongoing tobacco use, BPH and other medical problems listed below who presents with progressive shortness of breath and cough for the past 2 weeks and was found to have COPD exacerbation. Follows with Marissa gonzales has not come to appointment since last January. ABG - pH 7.3, pco2 71, HCO3 34 on admission (however per ED note pH 7.2, pCO2 90s) Bipap started, continue to monitor respiratory function closely Given 6mg IV Dexamethasone, duoneb and Azithromycin in ED Continued Bipap overnight (12/07) AM tried NC desatted to low 80s Duonebs QIDR, IV Azithromycin, IV solumedrol 40mg Q8H, Trelegy inh Afebrile, no evidence of PNA on imaging Repeat ABG (12/07) AM seems improved pH 7.34 PCO2 70 However patient lethargic, does not answer appropriately stat ABG and chest x-ray ordered pulmonary medicine contacted Repeat CXR (12/07) IMPRESSION: 1. Severe emphysema. No consolidation. 2. Trace right pleural effusion. 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/upper marker notified Attempt to notify family as well, however case management currently searching for correct contact information Palliative medicine also consulted 12/09 Patient has been on BiPAP most of the admission, and barely responding or tremulous and not cooperative/likely withdrawing from alcohol CT head negative, ammonia normal, lactic acid normal, tox screen normal procalcitonin normal pH improving on BiPAP, PCO2 also improving on BiPAP, however still elevated Pulmonary medicine been following Had an episode at night when he was again unresponsive when he received Ativan and therefore this was stopped (as above) however yesterday evening (12/08 PM) Patient went into SVT/A. fib RVR, code purple was called and patient was then transferred to ICU overnight patient required intubation Currently patient is intubated and sedated, in care of ICU team 12/10 Patient extubated today, on nasal cannula He is awake alert, able to have simple conversation Currently has no complaints (3) Lung nodule: Plan: Outpatient CT chest wo con from 2018 showing spiculated left upper lobe lung nodule measuring up to 1.5 cm that was highly concerning for malignancy PET-CT or percutaneous biopsy recommended at that time. Patient not compliant with either Will obtain routine CT chest wo con CT chest: IMPRESSION: 1. Severe emphysema with bronchial wall thickening suggestive of bronchitis. Right basilar mucous plugging is again noted. 2. Trace pleural effusions. 3. Bilateral renal calculi. 4. Moderate acute versus subacute T8 and T9 compression deformities are new from 06/16/2020. No retropulsion or appreciable paravertebral edema. (4) HTN (hypertension): Plan: Normotensive. Continue lisinopril, verapamil if can take PO (5) Diabetes mellitus, type II: Plan: A1c 5.1 in April 2020, no longer on diabetic medications, carb consistent diet (6) Paroxysmal atrial fibrillation: Plan: Not on anticoagulation secondary to a history of bleeding and compliance issues. Continue verapamil if can take PO Afib w/ RVR as above at home verapamil, not able to take PO most of admission stay initially given beta john, now on amiodarone plan to start IV heparin Cardiology also consulted director long term care anticoagulation questionable- may be higher risk than benefit (as above) (7) Alcohol dependence: Plan: History of rehab earlier this year. At risk protocol ordered Pt tremulous and restless, then episode of SVT/ Afib w/RVR - liklely secondary to etoh withdrawal (8) Hypothyroidism: Plan: Continue levothyroxine (9) BPH (benign prostatic hyperplasia): Plan: Bladder scan PRN (10) Mood disorder: Plan: Continue sertraline DVT Ppx: SQ Lovenox Code status: FULL PCP: Dr. Rizzo Dispo: ICU Admission and Anticipated Discharge Date Admission Date: December 06, 2020 Subjective Patient seen in follow-up of acute on chronic respiratory failure, with hypoxia, hypercapnia - believed to be secondary to COPD exacerbation, encephalopathy, likely alcohol withdrawal Pt on BiPAP most of the time since admission, however barely responding or tremulous/ restless, likely withdrawing from alcohol Patient was code purple on 12/08 evening, as he went into SVT/A. fib with RVR, he was then transferred to ICU and overnight required intubation Today (12/10) patient extubated, currently on nasal cannula, he is awake and actually can hold a conversation, first time conversing with the patient since his admission Asking who should be contacted and let know that he is in the hospital. Told him that I could not get a hold of his brother Osmin. Patient says that Osmin possibly changed his number, lives in [place] and they are not close. He also says he does not have any other family or close friends. Says that he lives alone. He is asking about food and about his clothes. Currently has no complaints, denies any chest pain, fever, chills, abdominal pain, nausea vomiting Review of Systems Review of Systems: All systems reviewed & are unremarkable except as noted in Subjective Physical Exam Physical Exam: General Appearance: thin male, disheveled, chronically ill appearing M, sitting up in bed, in no acute distress, on nasal cannula Head: normocephalic, atraumatic Eyes: normal inspection,PERRL, EOMI ENT: external ear and nose normal Neck: normal visual inspection Respiratory: + coarse breath sounds Cardiovascular: regular rate, rhythm, no murmur noted, no LE edema Chest: normal inspection of chest Abdomen/GI: normal bowel sounds, soft, nontender Extremities/Musculoskeletal: no LE edema Neurologic: Awake and alert, able to have simple conversation. No facial asymmetry, speech slow but fluent, moves extremities. Skin: no rash, warm/dry Results & Data Results & Data ([facility]) Vital Signs (Past 12 Hours) Vital Signs Temp Pulse Resp BP Pulse Ox 12/10/20 10:00 74 15 127/79 98 12/10/20 09:48 24 93 12/10/20 09:00 69 13 124/73 94 12/10/20 08:02 54 L 16 96 12/10/20 08:00 63 13 99/65 L 96 12/10/20 07:00 58 L 14 108/68 97 12/10/20 05:30 36.5 C 58 L 14 96 12/10/20 05:28 60 12/10/20 05:00 50 L 14 92/65 L 97 12/10/20 04:30 57 L 14 100 12/10/20 04:00 60 14 85/55 L 96 12/10/20 03:30 61 14 95 12/10/20 03:00 67 14 87/62 L 95 12/10/20 02:30 64 14 96 12/10/20 02:00 64 14 101/62 97 12/10/20 01:50 63 14 98 12/10/20 01:30 57 L 14 95 12/10/20 01:00 69 17 138/74 98 12/10/20 00:30 63 14 94 12/10/20 00:00 62 14 135/74 93 12/09/20 23:30 63 14 93 12/09/20 23:00 68 14 137/75 95 Laboratory Results 12/10/20 12/10/20 12/10/20 Range/Units 05:27 05:27 05:05 WBC 7.76 (4.8-10.8) K/uL RBC 3.12 L (4.7-6.1) M/uL Hgb 10.2 L (14.0-18.0) g/dL POC Hgb 10.2 L (14.0-18.0) g/dl Hct 31.2 L (42-52) % POC Hct 30 L (42-52) % MCV 100.0 (80-100) fL MCH 32.7 (25-34) pg MCHC 32.7 (32-36) g/dL RDW Std Deviation 52.6 H (36.4-46.3) fL RDW Coeff of Daquan 14.6 H (11.5-14.5) % Plt Count 107 L (130-400) K/uL MPV 12.2 H (7.4-10.4) fL Platelet Estimate Decreased L (Normal) Sample Site R Brachial POC pH 7.40 (7.35-7.45) POC pCO2 54 H (35-46) mmHg POC pO2 71 L (80-95) mmHg POC HCO3 34 H (19-24) jaime/L POC Total CO2 35 H (24-31) mmol/L POC Base Excess 9.0 H (-9-1.8) jaime/L ABG pH (Temp Correct) 7.400 (7.35-7.45) ABG pCO2 (Temp Corrct 54 H (35-46) mmHg POC ABG pO2 at Pt Temp 71 POC ABG O2 Sat 94.0 (90-95) % Hussein Test Pass O2 Delivery Device Ventilator POC O2 Rate 14 POC FiO2 28 % Tidal Volume 420 PEEP 5 POC Sodium 138 (135-144) mmol/L Sodium 138 (136-145) mmol/L POC Potassium 3.3 (3.3-5.0) mmol/L Potassium 3.5 (3.5-5.1) mmol/L Chloride 101 (98-107) mmol/L Carbon Dioxide 34 H (21-32) mmol/L Anion Gap 3.0 (3-11) BUN 23 H (7-18) mg/dl Creatinine 0.85 (0.6-1.4) mg/dl Est Cr Clr Drug Dosing 64.8 ml/min Est GFR ( Amer) 103.8 ml/min Est GFR (Non-Af Amer) 89.5 ml/min BUN/Creatinine Ratio 26.6 H (10-20) Glucose 138 H (70-99) mg/dl POC Glucose (70-99) mg/dl Calcium 7.9 L (8.5-10.1) mg/dl Phosphorus 2.9 (2.5-4.9) mg/dl Magnesium 2.0 (1.8-2.4) mg/dl Urine Color Urine Appearance (Clear) Urine pH (4.5-7.5) Ur Specific [place] (1.000-1.030) Urine Protein (Negative) Urine Glucose (UA) (Negative) Urine Ketones (Negative) Urine Blood (Negative) Urine Nitrite (Negative) Urine Bilirubin (Negative) Urine Urobilinogen (Negative) Ur Leukocyte Esterase (Negative) Urine WBC (Auto) (0-5) /hpf Urine RBC (Auto) (0-4) /hpf U Hyaline Cast (Auto) (0-5) /lpf U Epithel Cells (Auto) (0-5) /lpf Urine Bacteria (Auto) (Negative) Nasal Screen MRSA (PCR) (Negative) 12/09/20 12/09/20 12/09/20 Range/Units 16:28 11:10 10:20 WBC (4.8-10.8) K/uL RBC (4.7-6.1) M/uL Hgb (14.0-18.0) g/dL POC Hgb (14.0-18.0) g/dl Hct (42-52) % POC Hct (42-52) % MCV (80-100) fL MCH (25-34) pg MCHC (32-36) g/dL RDW Std Deviation (36.4-46.3) fL RDW Coeff of Daquan (11.5-14.5) % Plt Count (130-400) K/uL MPV (7.4-10.4) fL Platelet Estimate (Normal) Sample Site POC pH (7.35-7.45) POC pCO2 (35-46) mmHg POC pO2 (80-95) mmHg POC HCO3 (19-24) jaime/L POC Total CO2 (24-31) mmol/L POC Base Excess (-9-1.8) jaime/L ABG pH (Temp Correct) (7.35-7.45) ABG pCO2 (Temp Corrct (35-46) mmHg POC ABG pO2 at Pt Temp POC ABG O2 Sat (90-95) % Hussein Test O2 Delivery Device POC O2 Rate POC FiO2 % Tidal Volume PEEP POC Sodium (135-144) mmol/L Sodium (136-145) mmol/L POC Potassium (3.3-5.0) mmol/L Potassium (3.5-5.1) mmol/L Chloride (98-107) mmol/L Carbon Dioxide (21-32) mmol/L Anion Gap (3-11) BUN (7-18) mg/dl Creatinine (0.6-1.4) mg/dl Est Cr Clr Drug Dosing ml/min Est GFR ( Amer) ml/min Est GFR (Non-Af Amer) ml/min BUN/Creatinine Ratio (10-20) Glucose (70-99) mg/dl POC Glucose 152 H 110 H (70-99) mg/dl Calcium (8.5-10.1) mg/dl Phosphorus (2.5-4.9) mg/dl Magnesium (1.8-2.4) mg/dl Urine Color Urine Appearance (Clear) Urine pH (4.5-7.5) Ur Specific [place] (1.000-1.030) Urine Protein (Negative) Urine Glucose (UA) (Negative) Urine Ketones (Negative) Urine Blood (Negative) Urine Nitrite (Negative) Urine Bilirubin (Negative) Urine Urobilinogen (Negative) Ur Leukocyte Esterase (Negative) Urine WBC (Auto) (0-5) /hpf Urine RBC (Auto) (0-4) /hpf U Hyaline Cast (Auto) (0-5) /lpf U Epithel Cells (Auto) (0-5) /lpf Urine Bacteria (Auto) (Negative) Nasal Screen MRSA (PCR) Negative (Negative) 12/09/20 Range/Units 10:20 WBC (4.8-10.8) K/uL RBC (4.7-6.1) M/uL Hgb (14.0-18.0) g/dL POC Hgb (14.0-18.0) g/dl Hct (42-52) % POC Hct (42-52) % MCV (80-100) fL MCH (25-34) pg MCHC (32-36) g/dL RDW Std Deviation (36.4-46.3) fL RDW Coeff of Daquan (11.5-14.5) % Plt Count (130-400) K/uL MPV (7.4-10.4) fL Platelet Estimate (Normal) Sample Site POC pH (7.35-7.45) POC pCO2 (35-46) mmHg POC pO2 (80-95) mmHg POC HCO3 (19-24) jaime/L POC Total CO2 (24-31) mmol/L POC Base Excess (-9-1.8) jaime/L ABG pH (Temp Correct) (7.35-7.45) ABG pCO2 (Temp Corrct (35-46) mmHg POC ABG pO2 at Pt Temp POC ABG O2 Sat (90-95) % Hussein Test O2 Delivery Device POC O2 Rate POC FiO2 % Tidal Volume PEEP POC Sodium (135-144) mmol/L Sodium (136-145) mmol/L POC Potassium (3.3-5.0) mmol/L Potassium (3.5-5.1) mmol/L Chloride (98-107) mmol/L Carbon Dioxide (21-32) mmol/L Anion Gap (3-11) BUN (7-18) mg/dl Creatinine (0.6-1.4) mg/dl Est Cr Clr Drug Dosing ml/min Est GFR ( Amer) ml/min Est GFR (Non-Af Amer) ml/min BUN/Creatinine Ratio (10-20) Glucose (70-99) mg/dl POC Glucose (70-99) mg/dl Calcium (8.5-10.1) mg/dl Phosphorus (2.5-4.9) mg/dl Magnesium (1.8-2.4) mg/dl Urine Color Yellow Urine Appearance Clear (Clear) Urine pH 6.5 (4.5-7.5) Ur Specific [place] 1.020 (1.000-1.030) Urine Protein Negative (Negative) Urine Glucose (UA) Negative (Negative) Urine Ketones 1+ H (Negative) Urine Blood 2+ H (Negative) Urine Nitrite Negative (Negative) Urine Bilirubin Negative (Negative) Urine Urobilinogen Negative (Negative) Ur Leukocyte Esterase 1+ H (Negative) Urine WBC (Auto) 10-30 H (0-5) /hpf Urine RBC (Auto) >30 H (0-4) /hpf U Hyaline Cast (Auto) 1-5 (0-5) /lpf U Epithel Cells (Auto) 10-20 H (0-5) /lpf Urine Bacteria (Auto) Negative (Negative) Nasal Screen MRSA (PCR) (Negative) Medications Administered Current Inpatient Medications Acetaminophen (Acetaminophen 325 Mg Tab) 650 mg PO Q4H PRN PRN Reason: Pain or Fever Stop: 01/05/21 18:45 Albuterol (Albut/Ipratrop 3mg/0.5mg Neb 3 Ml Vial) 3 ml NEB QIDR [facility] Stop: 01/05/21 18:59 Last Admin: 12/10/20 06:51 Dose: 3 ml Documented by: Atorvastatin Calcium (Atorvastatin 40 Mg Tab) 40 mg PO DAILY [facility] Stop: 01/06/21 08:59 Last Admin: 12/08/20 08:29 Dose: Not Given Documented by: Docusate Sodium (Docusate Sodium Syrup 100 Mg/10 Ml Udc) 100 mg PO QAM [facility] Stop: 01/09/21 08:59 Last Admin: 12/10/20 08:23 Dose: 100 mg Documented by: Enoxaparin Sodium (Enoxaparin Inj 40 Mg/0.4 Ml Syr) 40 mg SQ Q24H [facility] Stop: 01/05/21 18:59 Last Admin: 12/09/20 19:51 Dose: 40 mg Documented by: Enteral Nutritional Formula (Peptamen 1.5 Jin 1,000 Ml Bag) 1,000 ml PO CONT SAE; Protocol Stop: 01/08/21 15:44 Last Admin: 12/09/20 16:35 Dose: 1,000 ml Documented by: Fentanyl Citrate (Fentanyl Bolus From Bag) 50 mcg IV Q60M PRN PRN Reason: Pain or Agitation Stop: 12/22/20 20:54 Last Admin: 12/09/20 14:17 Dose: 50 mcg Documented by: Fluticasone Furoate (Fluticasone Furoate 100mcg 14 Puffs/Inhaler) 1 puffs INH DAILY [facility]; Protocol Stop: 01/06/21 08:59 Last Admin: 12/10/20 08:23 Dose: Not Given Documented by: Gabapentin (Gabapentin 250 Mg/5 Ml 470 Ml Btl) 300 mg PO HS [facility] Stop: 01/08/21 20:59 Last Admin: 12/09/20 20:06 Dose: 300 mg Documented by: Azithromycin 500 mg/ Dextrose 255 mls @ 127.5 mls/hr IV Q24H [facility] Stop: 12/14/20 16:59 Last Infusion: 12/09/20 18:50 Dose: Infused Documented by: Pantoprazole Sodium 40 mg/ (Syringe) 10 mls @ 5 mls/min IV DAILY@1100 [facility] Stop: 01/06/21 10:59 Last Admin: 12/09/20 11:12 Dose: 5 mls/min Documented by: Folic Acid 1 mg/ Syringe 10 mls @ 5 mls/min IV QAM [facility] Stop: 01/07/21 12:29 Last Admin: 12/10/20 08:27 Dose: 5 mls/min Documented by: Acetaminophen (Ofirmev) 1,000 mg in 100 mls @ 400 mls/hr IV Q8H PRN PRN Reason: pain, discomfort, fever Stop: 12/11/20 12:17 Dexmedetomidine HCl 200 mcg/ (Sodium Chloride) 50 mls @ 0 mls/hr IV .Q0M [facility]; Protocol Stop: 12/12/20 19:29 Last Titration: 12/08/20 22:14 Dose: 0 mcg/kg/hr, 0 mls/hr Documented by: Thiamine HCl 200 mg/ Sodium (Chloride) 52 mls @ 208 mls/hr IV Q8H [facility] Stop: 01/07/21 19:29 Last Infusion: 12/10/20 05:03 Dose: Infused Documented by: Ceftriaxone Sodium 1,000 mg/ (Dextrose) 50 mls @ 100 mls/hr IV Q24H [facility]; Protocol Stop: 12/15/20 19:59 Last Infusion: 12/09/20 20:22 Dose: Infused Documented by: Methylprednisolone 40 mg/ (Syringe) 0.64 mls @ 1.5 mls/min IV DAILY [facility] Stop: 01/08/21 08:59 Last Admin: 12/10/20 08:26 Dose: 1.5 mls/min Documented by: Lorazepam (Ativan) 1 mg in 2 mls @ 2 mls/min IV UD PRN; Protocol PRN Reason: EtOH Withdrawl AWSS Score 6,7 Stop: 01/07/21 19:38 Last Admin: 12/08/20 21:44 Dose: 2 mls/min Documented by: Lorazepam (Ativan) 2 mg in 4 mls @ 4 mls/min IV UD PRN; Protocol PRN Reason: EtOH Withdrawl AWSS Score 8,9 Stop: 01/07/21 19:38 Lorazepam (Ativan) 3 mg in 6 mls @ 4 mls/min IV ONCE PRN; Protocol PRN Reason: EtOH Withdrawl AWSS Score >=10 Stop: 01/07/21 19:38 Fentanyl Citrate (Fentanyl Drip) 1,250 mcg in 250 mls @ 5 mls/hr IV .Q50H [facility]; Protocol Stop: 12/22/20 20:59 Last Titration: 12/10/20 07:00 Dose: 25 mcg/hr, 5 mls/hr Documented by: Propofol (Diprivan) 1,000 mg in 100 mls @ 4.959 mls/hr IV .[id number] [facility]; Protocol Stop: 12/11/20 20:59 Last Titration: 12/10/20 07:00 Dose: 15 mcg/kg/min, 5 mls/hr Documented by: Dextrose/Sodium Chloride (D5w And Nss) 1,000 mls @ 80 mls/hr IV .[id number] [facility] Stop: 01/08/21 12:44 Last Admin: 12/10/20 00:41 Dose: 80 mls/hr Documented by: Levothyroxine Sodium (Levothyroxine Sodium 50 Mcg Tablet) 50 mcg PO DAILYBB [facility] Stop: 01/06/21 06:29 Last Admin: 12/10/20 05:49 Dose: 50 mcg Documented by: Lisinopril (Lisinopril 10 Mg Tab) 10 mg PO DAILY [facility] Stop: 01/06/21 08:59 Last Admin: 12/10/20 08:53 Dose: Not Given Documented by: Miscellaneous (Remove Nicoderm Patch) 1 ea N/A DAILY@0859 [facility] Stop: 01/07/21 08:58 Last Admin: 12/10/20 08:23 Dose: 1 ea Documented by: Montelukast Sodium (Montelukast Sodium 10 Mg Tablet) 10 mg PO DAILY [facility] Stop: 01/06/21 08:59 Last Admin: 12/10/20 08:24 Dose: 10 mg Documented by: Multivitamins (Multivitamin Tab) 1 tab PO QAM [facility] Stop: 01/07/21 08:59 Last Admin: 12/10/20 08:24 Dose: 1 tab Documented by: Nicotine (Nicotine 14 Mg/24 Hr Patch) 14 mg TD QAM [facility] Stop: 01/06/21 12:29 Last Admin: 12/10/20 08:24 Dose: 14 mg Documented by: Nutritional Formula (Prosource No Carb 30 Ml/Pkt) 30 ml GT DAILY [facility] Stop: 01/08/21 15:59 Last Admin: 12/10/20 08:53 Dose: 30 ml Documented by: Olanzapine (Olanzapine 10 Mg/2.1 Ml Sdv) 2.5 mg IM Q4H PRN PRN Reason: Anxiety/Agitation Stop: 01/07/21 01:30 Ondansetron HCl (Ondansetron Inj 2 Mg/Ml 2 Ml Vial) 4 mg IV Q6H PRN PRN Reason: Nausea Stop: 01/05/21 18:45 Pantoprazole Sodium (Pantoprazole 40 Mg Tab) 40 mg PO DAILY [facility] Stop: 01/06/21 08:59 Last Admin: 12/08/20 08:31 Dose: Not Given Documented by: Polyethylene Glycol (Polyethylene (Miralax) 17 Gm Pack) 17 gm PO DAILY PRN PRN Reason: Constipation Stop: 01/05/21 18:45 Propofol (Propofol Bolus From Bag) 20 mg IV Q5M PRN PRN Reason: Sedation Stop: 12/11/20 20:54 Last Admin: 12/09/20 15:58 Dose: 20 mg Documented by: Sertraline HCl (Sertraline Hcl 100 Mg Tablet) 100 mg PO QAM [facility] Stop: 01/06/21 08:59 Last Admin: 12/10/20 08:24 Dose: 100 mg Documented by: Sterile Water (Tube Feeding Water Flush) 60 ml GT Q4H [facility] Stop: 01/08/21 15:59 Last Admin: 12/10/20 08:23 Dose: 60 ml Documented by: Umeclidinium/Vilanterol (Umeclidinium/Vilanterol 62.5/25mcg 7 Puffs/Inhaler) 1 puffs INH DAILY [facility]; Protocol Stop: 01/06/21 08:59 Last Admin: 12/10/20 08:24 Dose: Not Given Documented by: Verapamil HCl (Verapamil Hcl 120 Mg Tabcr) 120 mg PO QAM [facility] Stop: 01/06/21 08:59 Last Admin: 12/09/20 07:37 Dose: Not Given Documented by:
[2020-12-10] MEDS: PANTOprazole 40 MG in SYRINGE 0 ML IV SCH (11:51)
[2020-12-10] MEDS ORDERED: AMIODARONE / D5W 150 MG/100 ML BAG IV STA ×2 (15:58→16:03)
[2020-12-10] MEDS ORDERED: STAT IV Infusion **Titration per Protocol STA ×2 (15:58→15:59)
[2020-12-10] MEDS ORDERED: 0.2 MICRON FILTER SET 1 EA IV ONE ×2 (15:58→16:00)
[2020-12-10] MEDS ORDERED: AMIODARONE IV BOLUS & DRIP IV STA ×2 (15:58→15:59)
[2020-12-10] MEDS ORDERED: Heparin IV Adult Wt-Based Standard *NO* Bolus Protocol IV SCH (15:59)
[2020-12-10] MEDS ORDERED: AMIODARONE / D5W 360 MG/200 ML BAG IV ONE ×2 (16:08→16:09)
[2020-12-10] MEDS ORDERED: METOPROLOL TARTRATE 1 MG/ML VIAL IV STA (16:24)
[2020-12-10] MEDS ORDERED: METOPROLOL TARTRATE 1 MG/ML VIAL IV ONE (16:28)
[2020-12-10] MEDS: AZITHROMYCIN 500 MG in DEXTROSE 5% 250 ML IV SCH (16:29)
--- NOTE | 2020-12-10 16:33 | Critical Care Progress Note ---
Date of Service December 10, 2020 Assessment & Plan (1) Atrial fibrillation with rapid ventricular response: (2) COPD (chronic obstructive pulmonary disease): (3) Acute on chronic respiratory failure with hypoxia and hypercapnia: (4) Lung nodule: (5) Altered mental state: Plan: 70-year-old male with a history of chronic hypoxemic respiratory failure, COPD, tobacco abuse, paroxysmal atrial fibrillation and alcohol abuse presenting to the hospital due to shortness of breath. Found to be in atrial fibrillation with rapid ventricular response and possible alcohol withdrawal. Neurologic: Likely alcohol withdrawal. Continue thiamine 200 mg 3 times daily. Folic acid 1 mg daily. Continue alcohol withdrawal protocol. Pulmonary: Extubated to BiPAP. Doing well on nasal cannula. Maintain oxygen saturations being 88 to 92%. Transition methylprednisone to prednisone tomorrow. Treat for total of 5 to 7 days. Continue duo nebs. Continue azithromycin for 5 days total. Palliative care consult placed due to end-stage COPD and chronic conditions. Echo 06/21/2020 with EF of 60 to 65%. Grade 1 diastolic dysfunction. May need to repeat echo given EKG changes on 12/08/2020. Cardiovascular: Paroxysmal atrial fibrillation likely due to delirium and acute hypercapnic and hypoxemic respiratory failure. We will give a dose of 5 mg IV metoprolol. IV amiodarone initiated. Cardiology consult placed. Hemodynamically stable. Gastrointestinal: NPO. Will obtain speech consult. Renal: No significant issues at this time Infectious disease: On azithromycin for his COPD exacerbation. Urine and blood cultures negative. Procalcitonin unremarkable. Will discontinue ceftriaxone. Hematologic: Anemia of chronic disease. Stable. Hold chemical DVT prophylaxis at this time. SCDs. Endocrine: TSH normal. VTE prophylaxis: Heparin for DVT prophylaxis. CODE STATUS: Full Family at bedside: None available at bedside Disposition: Remain in the ICU. Palliative care consulted due to poor prognosis. I have personally spent 48 minutes of critical care time in the direct management of this patient. This is a life/limb threatening event. This includes time spent evaluating patient, direct bedside care, chart review, placing orders, interpretation of diagnostic studies, discussion with consultants, patient, and family members, as well as other required patient management activities. This time is exclusive of all separately billable procedures, and teaching time and separate from and in addition to any other critical care service time. Thank you for allowing us to participate in the care of this patient. Admission and Anticipated Discharge Date Admission Date: December 06, 2020 Subjective Patient seen and examined this morning. He was doing well on a spontaneous breathing trial and I ultimately extubated the patient to BiPAP. He has been weaned down to nasal cannula. He has had periods of atrial fibrillation this afternoon with rapid ventricular response. Review of Systems Review of Systems: All systems reviewed & are unremarkable except as noted in HPI & below Physical Exam Physical Exam: Constitutional: Chronically ill-appearing male in moderate distress. BiPAP mask in place. Eyes: Pupils are equal round and reactive to light. Conjunctivae are normal. Anicteric sclera. Ears nose, mouth and throat: BiPAP mask in place. No obvious deformities. Neck: Trachea is midline. Visual inspection is normal. Respiratory: Diminished lung sounds bilaterally. No wheezes. Cardiovascular: Regular rate and rhythm. No murmurs. No edema. Gastrointestinal: Normal bowel sounds, soft, nontender and nondistended. No hepatosplenomegaly noted. Musculoskeletal: No cyanosis. Patient is able to move all extremities. Skin: No rashes, warm dry and intact. Neurologic: No focal deficits. Psychiatric: Anxious and agitated Results & Data Results & Data ([facility]) Vital Signs (Past 12 Hours) Vital Signs Temp Pulse Pulse Pulse Resp BP BP 12/10/20 15:18 19 12/10/20 12:58 105 H 20 12/10/20 12:00 98.1 F 79 72 22 130/86 12/10/20 11:00 75 25 H 129/77 12/10/20 10:17 60 12/10/20 10:00 74 15 127/79 12/10/20 09:48 24 12/10/20 09:00 69 13 124/73 12/10/20 08:02 54 L 16 12/10/20 08:00 63 13 99/65 L 12/10/20 07:00 58 L 14 108/68 12/10/20 05:30 97.7 F 58 L 14 12/10/20 05:28 60 12/10/20 05:00 50 L 14 92/65 L 12/10/20 04:30 57 L 14 Pulse Ox 12/10/20 15:18 99 12/10/20 12:58 95 12/10/20 12:00 98 12/10/20 11:00 98 12/10/20 10:17 12/10/20 10:00 98 12/10/20 09:48 93 12/10/20 09:00 94 12/10/20 08:02 96 12/10/20 08:00 96 12/10/20 07:00 97 12/10/20 05:30 96 12/10/20 05:28 12/10/20 05:00 97 12/10/20 04:30 100 Vital signs, labs and imaging personally reviewed Coding Level of Care Code Critical Care 1st 30-74 mins Diagnoses Atrial fibrillation with rapid ventricular response I48.91 COPD (chronic obstructive pulmonary disease) J44.9 COPD type: unspecified COPD Acute on chronic respiratory failure with hypoxia and hypercapnia J96.21; J96.22 Lung nodule R91.1 Altered mental state R41.82 Time Spent (min) 48 (1) COPD (chronic obstructive pulmonary disease) COPD type: unspecified COPD Qualified Code(s): J44.9 - Chronic obstructive pulmonary disease, unspecified
[2020-12-10] MEDS: POTASSIUM CHLORIDE / WTR 10 MEQ/100 ML PLCT IV SCH ×4 (16:37→20:20)
[2020-12-10 18:14] LABS: Partial Thromboplastin Ratio 0.9; Partial Thromboplastin Time 23.1 Seconds (21.0-31.0)
[2020-12-10] MEDS: HEPARIN SODIUM/DEXTROSE 25,000 UNITS/500 ML BAG IV SCH (18:44)
--- NOTE | 2020-12-10 18:52 | Cardiology Consultation ---
Date of Consultation December 10, 2020 Assessment & Plan (1) Atrial fibrillation with rapid ventricular response: 70-year-old male, chronically debilitated. Per outpatient notes, utilizes a motorized wheelchair at baseline as he is not able to walk sufficiently, continues to smoke cigarettes, and drinks alcohol regularly. Has a history of chronic hypercapnic respiratory failure. Patient presented with delirium and shortness of breath. He ultimately was found to have narrow complex tachycardia consistent with atrial fibrillation however episodes of SVT are also a possibility He was intubated for respiratory support, subsequently extubated, and is now in sinus rhythm in the 70s with occasional PVCs on an amiodarone infusion, on BiPAP support. At present, I agree with the critical care recommendations to proceed with amiodarone. This of course needs to be performed with caution given his treatment with azithromycin. He is already on verapamil. Amiodarone course is not an ideal medication due to his underlying lung disease, but at present, I think it is our best option. Agree with tentative plan to start unfractioned heparin infusion for stroke prophylaxis with caution given his relatively low platelet count of 100 7K today. Per review of his records, it appears he is not on chronic anticoagulation due to his chronically debilitated state, and concern with inability to take this medication on a reliable basis. And therefore it has been felt that anticoagulation poses more risk than benefit for him previously. This of course need to be reassessed as his current situation develops. History of Present Illness Attending Physician: Adiel Garrison MD History of Present Illness Turner Villareal is a 70 year old male seen in cardiology consultation per the request of Dr Arias for evaluation of paroxysmal atrial fibrillation with rapid ventricular response. The patient is previously followed with Dr. Michael of our practice with most recent outpatient visit dating back to 2019. Patient has a longstanding history of cigarette smoking and COPD and is on chronic oxygen supplementation at baseline. He has been seen by cardiology during past admissions for episodes of atrial fibrillation that occur concurrently with COPD exacerbations. The patient was admitted having presented to the emergency department on 12/06/2020 with shortness of breath. [facility] well as [facility] medicine, and ultimately was seen in emergent critical care consultation on 12/08/2020 with progressive altered mental status, respiratory insufficiency, and tachycardia with heart rates up to the 160s. This neuro complex tachycardia did not respond to adenosine, and on serial EKG measurement it was determined he was likely in atrial fibrillation. He was subsequently intubated due to hypercapnic respiratory failure for airway protection and he was extubated this morning 12/10/2020. He was doing well on nasal cannula, until feeling a little bit more short of breath this evening and now he is back on BiPAP therapy. At present, sinus rhythm in the 70s as noted, although he has had some intermitt ent tachycardia, and last night he apparently had transient bradycardia. Allergies Allergy/AdvReac Type Severity Reaction Status Date / Time turkey Allergy Unknown Verified 12/06/20 15:22 lorazepam [From Ativan] AdvReac Intermediate oversedation Verified 12/08/20 01:58 from 3 mg ativan Home Medications Medication Instructions Recorded Confirmed Type docusate sodium 100 mg capsule 100 mg PO QAM 01/28/18 12/06/20 History (Colace) gabapentin 300 mg capsule 300 mg PO HS 01/28/18 12/06/20 History fluticasone fur. 100 mcg-umeclid 1 inh INHALATION QAM 02/13/19 12/06/20 History 62.5 mcg-vilant 25 mcg inhalat.powder (Trelegy Ellipta) levothyroxine 50 mcg tablet 50 mcg PO DAILY 02/13/19 12/06/20 History sertraline 100 mg tablet 100 mg PO QAM 02/13/19 12/06/20 History verapamil 120 mg tablet,extended 120 mg PO QAM 02/13/19 12/06/20 History release albuterol sulfate 2.5 mg INHALATION Q4 PRN 06/16/20 12/06/20 History ipratropium 20 mcg-albuterol 100 1 puff INHALATION QID PRN 06/16/20 12/06/20 History mcg/actuation mist for inhalation (Combivent Respimat) azithromycin 250 mg tablet 250 mg PO UD 30 Days #30 tab 06/22/20 12/06/20 Rx (Zithromax) pantoprazole 40 mg tablet,delayed 40 mg PO DAILY #30 tab 06/28/20 12/06/20 Rx release (Protonix) atorvastatin 40 mg tablet 40 mg PO DAILY 12/06/20 12/06/20 History lisinopril 10 mg tablet 10 mg PO DAILY 12/06/20 12/06/20 History montelukast 10 mg tablet 10 mg PO DAILY 12/06/20 12/06/20 History Patient History Medical History Alcohol use Altered mental state Atrial fibrillation with rapid ventricular response BPH (benign prostatic hyperplasia) COPD (chronic obstructive pulmonary disease) Depression Diabetes mellitus, type II Dyslipidemia Esophageal stenosis "s/p dilation June 2016" GERD (gastroesophageal reflux disease) HTN (hypertension) Hypothyroidism Lung nodule Mood disorder Paroxysmal atrial fibrillation Superficial thrombophlebitis "2009" TIA (transient ischemic attack) "1982" Surgical History S/P bronchoscopy Family History Other Diabetes Social History Smoking Status: Smoker, status unknown Tobacco Type: Cigarettes Cigarettes Per Day: 20; Second Hand Exposure: No; Hx Alcohol Use: Yes (per record) Alcohol type: beer Alcohol Intake Frequency Comment: 2 beers a day Hx Substance Use: No Preferred Language: Estonian Communication Ability: Impaired Pulmonary Fellow Required: No Beliefs That Will Affect Care: None marital status: Single Current Living Situation: Other Current Living Situation Comment: unknown-pt has caregivers that come tue s/thrusday How many Children do You have: 0 Feels Safe at Home: Yes Assistive Devices: None Review of Systems Review of Systems: Unobtainable due to cognitive status Physical Exam Physical Exam: Temp Pulse Resp BP Pulse Ox 37.3 C 71 16 158/77 H 97 12/10/20 18:15 12/10/20 18:15 12/10/20 18:15 12/10/20 18:15 12/10/20 18:15 Constitutional: Chronically ill in appearance, frail Respiratory: Coarse breath sounds bilaterally Cardiovascular: RRR, no murmur, no edema Neurologic: Moves all 4 extremities on command Results & Data ([facility]) Vital Signs (Past 12 Hours) Vital Signs Temp Pulse Pulse Pulse Resp BP BP 12/10/20 18:15 37.3 C 71 16 158/77 H 12/10/20 17:52 37.3 C 12/10/20 17:00 78 24 149/85 H 12/10/20 16:37 88 167/93 H 12/10/20 16:00 87 23 167/93 H 12/10/20 15:18 19 12/10/20 15:00 79 21 135/79 12/10/20 14:00 81 22 145/93 H 12/10/20 13:00 98 H 16 127/72 12/10/20 12:58 105 H 20 12/10/20 12:00 36.7 C 79 72 22 130/86 12/10/20 11:00 75 25 H 129/77 12/10/20 10:17 60 12/10/20 10:00 74 15 127/79 12/10/20 09:48 24 12/10/20 09:00 69 13 124/73 12/10/20 08:02 54 L 16 12/10/20 08:00 63 13 99/65 L 12/10/20 07:00 58 L 14 108/68 Pulse Ox 12/10/20 18:15 97 12/10/20 17:52 12/10/20 17:00 100 12/10/20 16:37 12/10/20 16:00 100 12/10/20 15:18 99 12/10/20 15:00 97 12/10/20 14:00 99 12/10/20 13:00 95 12/10/20 12:58 95 12/10/20 12:00 98 12/10/20 11:00 98 12/10/20 10:17 12/10/20 10:00 98 12/10/20 09:48 93 12/10/20 09:00 94 12/10/20 08:02 96 12/10/20 08:00 96 12/10/20 07:00 97 Laboratory Results Coagulation 12/10/20 Range/Units 17:57 APTT 23.1 (21.0-31.0) Seconds CBC 12/10/20 Range/Units 05:27 WBC 7.76 (4.8-10.8) K/uL RBC 3.12 L (4.7-6.1) M/uL Hgb 10.2 L (14.0-18.0) g/dL Hct 31.2 L (42-52) % Plt Count 107 L (130-400) K/uL Comprehensive Metabolic Panel 12/10/20 Range/Units 05:27 Sodium 138 (136-145) mmol/L Potassium 3.5 (3.5-5.1) mmol/L Chloride 101 (98-107) mmol/L Carbon Dioxide 34 H (21-32) mmol/L BUN 23 H (7-18) mg/dl Creatinine 0.85 (0.6-1.4) mg/dl Glucose 138 H (70-99) mg/dl Calcium 7.9 L (8.5-10.1) mg/dl Intake and Output 12/10/20 12/10/20 12/10/20 06:59 14:59 22:59 Intake Total 1015.360 / 3041.778 1529.833 / 1922.450 392.617 / 1922.450 Output Total 200 / 870 300 / 800 500 / 800 Balance 815.360 / 2171.778 1229.833 / 1122.450 -107.383 / 1122.450 Intake: IV 1015.360 / 2841.778 1189.833 / 1582.450 392.617 / 1582.450 Amiodarone / D5w 150 mg In 100 100 / 100 ml @ 600 mls/hr IV NOW STA Rx#: [id number] Azithromycin 500 mg In Dextrose 192.617 / 192.617 5% 250 ml @ 127.5 mls/hr IV Q24H [facility] Rx#:[id number] D5w and Nss 1,000 ml @ 80 mls/ 944 / 944 1000 / 1000 hr IV .[id number] [facility] Rx#:[id number] Dexmedetomidine HCl 200 mcg In 0 / 0 Sodium Chloride 0.9% 48 ml @ 0 MCG/KG/HR IV .Q0M [facility] Rx#: [id number] Potassium Chloride / Wtr 10 meq 100 / 100 In 100 ml @ 100 mls/hr IV Q1H [facility] Rx#:[id number] Thiamine HCl 200 mg In Sodium 52 / 156 52 / 52 Chloride 0.9% 50 ml @ 208 mls/ hr IV Q8H [facility] Rx#:[id number] fentaNYL DRIP 1,250 mcg In 250 73.083 / 73.083 ml @ 0 MCG/HR IV .Q0M [facility] Rx#: [id number] propofoL 1,000 mg In 100 ml @ 19.360 / 107.110 64.75 / 64.75 15 MCG/KG/MIN 4.959 mls/hr IV . [id number] [facility] Rx#:[id number] Tube Feeding 220 / 220 Tube Irrigant 120 / 120 Output: Urine 200 / 250 Urine Amount (Catheter) 300 / 800 500 / 800 Ortega/Indwelling 300 / 800 500 / 800 Diagnostic Findings EKG performed 12/08/2020 suggests atrial fibrillation with rapid ventricular response, and mild diffuse rate related ST segment depression. Echocardiogram performed 06/21/2020: Mild concentric left ventricular hypertrophy, LVEF 6065%, no evidence of pulmonary hypertension. Mild aortic valve sclerosis without stenosis Troponin I was negative on 2 measurements this admission on 12/06/2020 and on 12/08/2020
[2020-12-10] MEDS ORDERED: OLANZapine 10 MG/2.1 ML SDV IM STA (19:51)
[2020-12-10] MEDS: GABAPENTIN 250 MG/5 ML 470 ML BTL PO SCH (20:23)
[2020-12-10] MEDS: AMIODARONE / D5W 360 MG/200 ML BAG IV SCH (21:26)
[2020-12-10] MEDS ORDERED: AMIODARONE / D5W 360 MG/200 ML BAG IV SCH (22:00)
[2020-12-11 01:45] LABS: Partial Thromboplastin Ratio 1.3
[2020-12-11] MEDS ORDERED: HEPARIN IV BOLUS 2,000 UNITS in SYRINGE 0 ML IV ONE (02:30)
[2020-12-11 04:47] LABS: Hematocrit (blood only) 31.7 % (42-52); Hemoglobin 10.5 g/dL (14.0-18.0); Mean Corpuscular Hemoglobin 33.4 pg (25-34); Mean Corpuscular Hgb Conc 33.1 g/dL (32-36); Mean Platelet Volume 11.8 fL (7.4-10.4); Platelet Count 106 K/uL (130-400); RDW Coefficient of Variation 14.7 % (11.5-14.5); RDW Standard Deviation 54.3 fL (36.4-46.3); Red Blood Count 3.14 M/uL (4.7-6.1)
[2020-12-11] MEDS: THIAMINE HCL 200 MG in SODIUM CHLORIDE 0.9% 50 ML IV SCH ×3 (04:54→21:31)
[2020-12-11] MEDS: LEVOTHYROXINE SODIUM 50 MCG TABLET PO SCH (05:38)
[2020-12-11 06:18] LABS: BUN Creatinine Ratio 22.4 (10-20); Calcium 8.2 mg/dl (8.5-10.1); Creatinine Clr Calc Pharmacy 70.6 ml/min; Est GFR (African American) 107.5 ml/min; Est GFR (Non-African American) 92.8 ml/min; Phosphorus 3.2 mg/dl (2.5-4.9); Potassium 4.1 mmol/L (3.5-5.1)
[2020-12-11] MEDS: ALBUT/IPRATROP 3MG/0.5MG NEB 3 ML VIAL NEB SCH ×4 (07:31→19:07)
--- NOTE | 2020-12-11 08:22 | Hospitalist Progress Note ---
Date of Service December 11, 2020 Assessment & Plan (1) Acute on chronic respiratory failure with hypoxia and hypercapnia: (2) COPD exacerbation: Plan: This is a 70-year-old male with past medical history of COPD, chronic respiratory failure on 3-4 L nasal cannula O2, hypothyroidism, type 2 diabetes, paroxysmal atrial fibrillation, hypertension, ongoing tobacco use, BPH and other medical problems listed below who presents with progressive shortness of breath and cough for the past 2 weeks and was found to have COPD exacerbation. Follows with Marissa gonzales has not come to appointment since last January. ABG - pH 7.3, pco2 71, HCO3 34 on admission (however per ED note pH 7.2, pCO2 90s) Bipap started, continue to monitor respiratory function closely Given 6mg IV Dexamethasone, duoneb and Azithromycin in ED Continued Bipap overnight (12/07) AM tried NC desatted to low 80s Duonebs QIDR, IV Azithromycin, IV solumedrol 40mg Q8H, Trelegy inh Afebrile, no evidence of PNA on imaging Repeat ABG (12/07) AM seems improved pH 7.34 PCO2 70 However patient lethargic, does not answer appropriately stat ABG and chest x-ray ordered pulmonary medicine contacted Repeat CXR (12/07) IMPRESSION: 1. Severe emphysema. No consolidation. 2. Trace right pleural effusion. 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/sandblast or shotblast equipment tender notified Attempt to notify family as well, however case management currently searching for correct contact information Palliative medicine also consulted 12/09 Patient has been on BiPAP most of the admission, and barely responding or tremulous and not cooperative/likely withdrawing from alcohol CT head negative, ammonia normal, lactic acid normal, tox screen normal procalcitonin normal pH improving on BiPAP, PCO2 also improving on BiPAP, however still elevated Pulmonary medicine been following Had an episode at night when he was again unresponsive when he received Ativan and therefore this was stopped (as above) however yesterday evening (12/08 PM) Patient went into SVT/A. fib RVR, code purple was called and patient was then transferred to ICU overnight patient required intubation Currently patient is intubated and sedated, in care of ICU team 12/10 Patient extubated today, on nasal cannula He is awake alert, able to have simple conversation Currently has no complaints 12/11 Patient is currently on nasal cannula, awake alert able to have conversation Patient will be downgraded from ICU PT recommends SNF/LTAC/rehab Patient reports no close family or friends, lives alone (3) Lung nodule: Plan: Outpatient CT chest wo con from 2018 showing spiculated left upper lobe lung nodule measuring up to 1.5 cm that was highly concerning for malignancy PET-CT or percutaneous biopsy recommended at that time. Patient not compliant with either Will obtain routine CT chest wo con CT chest: IMPRESSION: 1. Severe emphysema with bronchial wall thickening suggestive of bronchitis. Right basilar mucous plugging is again noted. 2. Trace pleural effusions. 3. Bilateral renal calculi. 4. Moderate acute versus subacute T8 and T9 compression deformities are new from 06/16/2020. No retropulsion or appreciable paravertebral edema. (4) HTN (hypertension): Plan: Normotensive. Continue lisinopril, verapamil if can take PO (5) Diabetes mellitus, type II: Plan: A1c 5.1 in April 2020, no longer on diabetic medications, carb consistent diet (6) Paroxysmal atrial fibrillation: Plan: Not on anticoagulation secondary to a history of bleeding and compliance issues. 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 At risk protocol ordered Pt tremulous and restless, then episode of SVT/ Afib w/RVR - liklely secondary to etoh withdrawal (8) Hypothyroidism: Plan: Continue levothyroxine (9) BPH (benign prostatic hyperplasia): Plan: Bladder scan PRN (10) Mood disorder: Plan: Continue sertraline DVT Ppx: SQ Lovenox Code status: FULL PCP: Dr. Rizzo Dispo: ICU -> PCU PT recommends LTAC/SNF/ rehab Patient says that his brother Osmin lives in [place] and they are not close, did not speak for years. He also says he does not have any other family or close friends. Says that he lives alone. Admission and Anticipated Discharge Date Admission Date: December 06, 2020 Subjective Patient seen in follow-up of acute on chronic respiratory failure, with hypoxia, hypercapnia - believed to be secondary to COPD exacerbation, encephalopathy, likely alcohol withdrawal Pt on BiPAP most of the time since admission, however barely responding or tremulous/ restless, likely withdrawing from alcohol Patient was code purple on 12/08 evening, as he went into SVT/A. fib with RVR, he was then transferred to ICU and overnight required intubation (12/10) patient extubated 12/11 - currently on nasal cannula, he is awake alert and actually can hold a conversation Asking who should be contacted and let know that he is in the hospital. Told him that I could not get a hold of his brother Osmin. Patient says that Osimn lives in [place] and they are not close, did not speak together for years. He also says he does not have any other family or close friends. Says that he lives alone. Currently has no complaints, denies any chest pain, fever, chills, abdominal pain, nausea vomiting PT eval recommends - SNF/LTAC/rehab Review of Systems Review of Systems: All systems reviewed & are unremarkable except as noted in Subjective Physical Exam Physical Exam: General Appearance: thin male, disheveled, chronically ill appearing M, sitting up in bed, in no acute distress, on nasal cannula Head: normocephalic, atraumatic Eyes: normal inspection,PERRL, EOMI ENT: external ear and nose normal Neck: normal visual inspection Respiratory: + coarse breath sounds Cardiovascular: regular rate, rhythm, no murmur noted, no LE edema Chest: normal inspection of chest Abdomen/GI: normal bowel sounds, soft, nontender Extremities/Musculoskeletal: no LE edema Neurologic: Awake and alert, able to have simple conversation. No facial asymmetry, speech slow but fluent, moves extremities. Skin: no rash, warm/dry Results & Data Results & Data ([facility]) Vital Signs (Past 12 Hours) Vital Signs Pulse Pulse Resp BP Pulse Ox 12/11/20 07:30 65 65 22 93 12/11/20 06:00 75 34 H 163/83 H 91 12/11/20 05:45 82 20 99 12/11/20 05:00 156/84 H 12/11/20 04:00 72 19 161/98 H 99 12/11/20 03:00 67 20 94 12/11/20 02:00 158/81 H 100 12/11/20 01:16 66 19 99 12/11/20 01:00 61 16 119/60 100 12/11/20 00:42 68 12/11/20 00:00 64 16 161/65 H 98 12/10/20 23:00 66 19 164/86 H 99 12/10/20 22:20 77 28 H 98 12/10/20 22:00 79 22 173/91 H 100 12/10/20 21:00 71 19 174/93 H 99 12/10/20 20:30 70 16 100 Laboratory Results 12/11/20 12/11/20 12/11/20 Range/Units 07:53 06:26 04:32 WBC (4.8-10.8) K/uL RBC (4.7-6.1) M/uL Hgb (14.0-18.0) g/dL Hct (42-52) % MCV (80-100) fL MCH (25-34) pg MCHC (32-36) g/dL RDW Std Deviation (36.4-46.3) fL RDW Coeff of Daquan (11.5-14.5) % Plt Count (130-400) K/uL MPV (7.4-10.4) fL APTT Pending (21.0-31.0) Seconds PTT Ratio Pending Sodium 142 (136-145) mmol/L Potassium 4.1 D (3.5-5.1) mmol/L Chloride 106 (98-107) mmol/L Carbon Dioxide 36 H (21-32) mmol/L Anion Gap 1.0 L (3-11) BUN 18 (7-18) mg/dl Creatinine 0.78 (0.6-1.4) mg/dl Est Cr Clr Drug Dosing 70.6 ml/min Est GFR ( Amer) 107.5 ml/min Est GFR (Non-Af Amer) 92.8 ml/min BUN/Creatinine Ratio 22.4 H (10-20) Glucose 82 (70-99) mg/dl POC Glucose 87 (70-99) mg/dl Calcium 8.2 L (8.5-10.1) mg/dl Phosphorus 3.2 (2.5-4.9) mg/dl Magnesium 2.0 (1.8-2.4) mg/dl 12/11/20 12/11/20 12/10/20 Range/Units 04:32 01:05 23:58 WBC 7.80 (4.8-10.8) K/uL RBC 3.14 L (4.7-6.1) M/uL Hgb 10.5 L (14.0-18.0) g/dL Hct 31.7 L (42-52) % MCV 101.0 H (80-100) fL MCH 33.4 (25-34) pg MCHC 33.1 (32-36) g/dL RDW Std Deviation 54.3 H (36.4-46.3) fL RDW Coeff of Daquan 14.7 H (11.5-14.5) % Plt Count 106 L (130-400) K/uL MPV 11.8 H (7.4-10.4) fL APTT 35.0 H (21.0-31.0) Seconds PTT Ratio 1.3 Sodium (136-145) mmol/L Potassium (3.5-5.1) mmol/L Chloride (98-107) mmol/L Carbon Dioxide (21-32) mmol/L Anion Gap (3-11) BUN (7-18) mg/dl Creatinine (0.6-1.4) mg/dl Est Cr Clr Drug Dosing ml/min Est GFR ( Amer) ml/min Est GFR (Non-Af Amer) ml/min BUN/Creatinine Ratio (10-20) Glucose (70-99) mg/dl POC Glucose 93 (70-99) mg/dl Calcium (8.5-10.1) mg/dl Phosphorus (2.5-4.9) mg/dl Magnesium (1.8-2.4) mg/dl 12/10/20 Range/Units 17:57 WBC (4.8-10.8) K/uL RBC (4.7-6.1) M/uL Hgb (14.0-18.0) g/dL Hct (42-52) % MCV (80-100) fL MCH (25-34) pg MCHC (32-36) g/dL RDW Std Deviation (36.4-46.3) fL RDW Coeff of Daquan (11.5-14.5) % Plt Count (130-400) K/uL MPV (7.4-10.4) fL APTT 23.1 (21.0-31.0) Seconds PTT Ratio 0.9 Sodium (136-145) mmol/L Potassium (3.5-5.1) mmol/L Chloride (98-107) mmol/L Carbon Dioxide (21-32) mmol/L Anion Gap (3-11) BUN (7-18) mg/dl Creatinine (0.6-1.4) mg/dl Est Cr Clr Drug Dosing ml/min Est GFR ( Amer) ml/min Est GFR (Non-Af Amer) ml/min BUN/Creatinine Ratio (10-20) Glucose (70-99) mg/dl POC Glucose (70-99) mg/dl Calcium (8.5-10.1) mg/dl Phosphorus (2.5-4.9) mg/dl Magnesium (1.8-2.4) mg/dl Medications Administered Current Inpatient Medications Acetaminophen (Acetaminophen 325 Mg Tab) 650 mg PO Q4H PRN PRN Reason: Pain or Fever Stop: 01/05/21 18:45 Albuterol (Albut/Ipratrop 3mg/0.5mg Neb 3 Ml Vial) 3 ml NEB QIDR SAE Stop: 01/05/21 18:59 Last Admin: 12/11/20 07:31 Dose: 3 ml Documented by: Atorvastatin Calcium (Atorvastatin 40 Mg Tab) 40 mg PO DAILY [facility] Stop: 01/06/21 08:59 Last Admin: 12/08/20 08:29 Dose: Not Given Documented by: Docusate Sodium (Docusate Sodium Syrup 100 Mg/10 Ml Udc) 100 mg PO QAM SAE Stop: 01/09/21 08:59 Last Admin: 12/10/20 08:23 Dose: 100 mg Documented by: Fluticasone Furoate (Fluticasone Furoate 100mcg 14 Puffs/Inhaler) 1 puffs INH DAILY SAE; Protocol Stop: 01/06/21 08:59 Last Admin: 12/10/20 08:23 Dose: Not Given Documented by: Gabapentin (Gabapentin 250 Mg/5 Ml 470 Ml Btl) 300 mg PO HS [facility] Stop: 01/08/21 20:59 Last Admin: 12/10/20 20:23 Dose: 300 mg Documented by: Pantoprazole Sodium 40 mg/ (Syringe) 10 mls @ 5 mls/min IV DAILY@1100 SAE Stop: 01/06/21 10:59 Last Admin: 12/10/20 11:51 Dose: 5 mls/min Documented by: Folic Acid 1 mg/ Syringe 10 mls @ 5 mls/min IV QAM [facility] Stop: 01/07/21 12:29 Last Admin: 12/10/20 08:27 Dose: 5 mls/min Documented by: Acetaminophen (Ofirmev) 1,000 mg in 100 mls @ 400 mls/hr IV Q8H PRN PRN Reason: pain, discomfort, fever Stop: 12/11/20 12:17 Thiamine HCl 200 mg/ Sodium (Chloride) 52 mls @ 208 mls/hr IV Q8H SAE Stop: 01/07/21 19:29 Last Infusion: 12/11/20 05:16 Dose: Infused Documented by: Methylprednisolone 40 mg/ (Syringe) 0.64 mls @ 1.5 mls/min IV DAILY [facility] Stop: 01/08/21 08:59 Last Admin: 12/10/20 08:26 Dose: 1.5 mls/min Documented by: Lorazepam (Ativan) 1 mg in 2 mls @ 2 mls/min IV UD PRN; Protocol PRN Reason: EtOH Withdrawl AWSS Score 6,7 Stop: 01/07/21 19:38 Last Admin: 12/08/20 21:44 Dose: 2 mls/min Documented by: Lorazepam (Ativan) 2 mg in 4 mls @ 4 mls/min IV UD PRN; Protocol PRN Reason: EtOH Withdrawl AWSS Score 8,9 Stop: 01/07/21 19:38 Lorazepam (Ativan) 3 mg in 6 mls @ 4 mls/min IV ONCE PRN; Protocol PRN Reason: EtOH Withdrawl AWSS Score >=10 Stop: 01/07/21 19:38 Heparin Sodium/Dextrose (Heparin Sodium/Dextrose) 25,000 units in 500 mls @ 22 mls/hr IV .[id number] [facility]; Protocol Stop: 01/09/21 17:14 Last Titration: 12/11/20 07:16 Dose: 1,100 units/hr, 22 mls/hr Documented by: Amiodarone HCl/Dextrose (Nexterone / D5w) 360 mg in 200 mls @ 16.667 mls/hr IV .Q12H [facility] Stop: 01/09/21 21:59 Last Admin: 12/10/20 21:26 Dose: 0.5 mg/min, 16.7 mls/hr Documented by: Azithromycin 250 mg/ Dextrose 252.5 mls @ 125 mls/hr IV DAILY [facility]E Stop: 12/14/20 08:59 Levothyroxine Sodium (Levothyroxine Sodium 50 Mcg Tablet) 50 mcg PO DAILYBB [facility] Stop: 01/06/21 06:29 Last Admin: 12/11/20 05:38 Dose: 50 mcg Documented by: Lisinopril (Lisinopril 10 Mg Tab) 10 mg PO DAILY [facility] Stop: 01/06/21 08:59 Last Admin: 12/10/20 08:53 Dose: Not Given Documented by: Miscellaneous (Remove Nicoderm Patch) 1 ea N/A DAILY@0859 [facility] Stop: 01/07/21 08:58 Last Admin: 12/10/20 08:23 Dose: 1 ea Documented by: Montelukast Sodium (Montelukast Sodium 10 Mg Tablet) 10 mg PO DAILY [facility] Stop: 01/06/21 08:59 Last Admin: 12/10/20 08:24 Dose: 10 mg Documented by: Multivitamins (Multivitamin Tab) 1 tab PO QAM [facility] Stop: 01/07/21 08:59 Last Admin: 12/10/20 08:24 Dose: 1 tab Documented by: Nicotine (Nicotine 14 Mg/24 Hr Patch) 14 mg TD QAM [facility] Stop: 01/06/21 12:29 Last Admin: 12/10/20 08:24 Dose: 14 mg Documented by: Ondansetron HCl (Ondansetron Inj 2 Mg/Ml 2 Ml Vial) 4 mg IV Q6H PRN PRN Reason: Nausea Stop: 01/05/21 18:45 Pantoprazole Sodium (Pantoprazole 40 Mg Tab) 40 mg PO DAILY [facility] Stop: 01/06/21 08:59 Last Admin: 12/08/20 08:31 Dose: Not Given Documented by: Polyethylene Glycol (Polyethylene (Miralax) 17 Gm Pack) 17 gm PO DAILY PRN PRN Reason: Constipation Stop: 01/05/21 18:45 Sertraline HCl (Sertraline Hcl 100 Mg Tablet) 100 mg PO QAM [facility] Stop: 01/06/21 08:59 Last Admin: 12/10/20 08:24 Dose: 100 mg Documented by: Umeclidinium/Vilanterol (Umeclidinium/Vilanterol 62.5/25mcg 7 Puffs/Inhaler) 1 puffs INH DAILY [facility]; Protocol Stop: 01/06/21 08:59 Last Admin: 12/10/20 08:24 Dose: Not Given Documented by: Verapamil HCl (Verapamil Hcl 120 Mg Tabcr) 120 mg PO QAM [facility] Stop: 01/06/21 08:59 Last Admin: 12/09/20 07:37 Dose: Not Given Documented by:
[2020-12-11] MEDS: AZITHROMYCIN 250 MG in DEXTROSE 5% 250 ML IV SCH (08:25)
[2020-12-11] MEDS: DOCUSATE SODIUM SYRUP 100 MG/10 ML UDC PO SCH (08:25)
[2020-12-11] MEDS: NICOTINE 14 MG/24 HR PATCH TD SCH (08:25)
[2020-12-11] MEDS: methylPREDNISolone 40 MG in SYRINGE 0 ML IV SCH (08:25)
[2020-12-11] MEDS: MULTIVITAMIN TAB PO SCH (08:26)
[2020-12-11] MEDS: lisinopril 10 MG TAB PO SCH (08:26)
[2020-12-11] MEDS: FLUTICASONE FUROATE 100MCG 14 PUFFS/INHALER INH SCH (08:26)
[2020-12-11] MEDS: UMECLIDINIUM/VILANTEROL 62.5/25MCG 7 PUFFS/INHALER INH SCH (08:26)
[2020-12-11] MEDS: SERTRALINE HCL 100 MG TABLET PO SCH (08:26)
[2020-12-11] MEDS: MONTELUKAST SODIUM 10 MG TABLET PO SCH (08:26)
[2020-12-11 08:27] LABS: Partial Thromboplastin Ratio 2.3
[2020-12-11] MEDS: FOLIC ACID 1 MG in SYRINGE 9.8 ML IV SCH (08:27)
[2020-12-11 08:29] LABS: Partial Thromboplastin Time 59.3 Seconds (21.0-31.0)
[2020-12-11] MEDS: AMIODARONE / D5W 360 MG/200 ML BAG IV SCH (08:39)
[2020-12-11] MEDS: PANTOprazole 40 MG in SYRINGE 0 ML IV SCH (10:10)
[2020-12-11] MEDS ORDERED: Nursing to Pharmacy Communication SCH (10:30)
[2020-12-11] MEDS: VERAPAMIL HCL 120 MG TABCR PO SCH (10:38)
--- NOTE | 2020-12-11 10:41 | Critical Care Progress Note ---
Date of Service December 11, 2020 Assessment & Plan (1) Atrial fibrillation with rapid ventricular response: (2) COPD (chronic obstructive pulmonary disease): (3) Acute on chronic respiratory failure with hypoxia and hypercapnia: (4) Lung nodule: (5) Altered mental state: Plan: 70-year-old male with a history of chronic hypoxemic respiratory failure, COPD, tobacco abuse, paroxysmal atrial fibrillation and alcohol abuse presenting to the hospital due to shortness of breath. Found to be in atrial fibrillation with rapid ventricular response and possible alcohol withdrawal. Neurologic: Patient denies any significant alcohol withdrawal previously and denies alcohol abuse. Concern for alcohol withdrawal is less at this time continue thiamine 200 mg 3 times daily. Folic acid 1 mg daily. Neurology consulted for evaluation of possible movement disorder versus partial seizures Pulmonary: Doing well today. Continue BiPAP at night. Continue steroids for 5 days total. Continue azithromycin for 5 days total. Palliative care consult placed due to end-stage COPD and chronic conditions. Cardiovascular: Paroxysmal atrial fibrillation likely due to delirium and acute on chronic hypoxemic and hypercapnic respiratory failure. Echo 06/21/2020 with EF of 60 to 65%. Grade 1 diastolic dysfunction. May need to repeat echo given EKG changes on 12/08/2020. Will defer to cardiology. Appreciate their input. We will transition from IV to p.o. amiodarone given atrial fibrillation. Currently on a heparin drip. Restart lisinopril and verapamil. Gastrointestinal: NPO. Will obtain speech consult. Renal: No significant issues at this time Infectious disease: On azithromycin for his COPD exacerbation. Urine and blood cultures negative. Procalcitonin unremarkable. Hematologic: Anemia of chronic disease. Stable. Endocrine: TSH normal. VTE prophylaxis: Heparin infusion. CODE STATUS: Full Family at bedside: None available at bedside Disposition: Downgrade out of ICU. Palliative care consulted due to overall poor prognosis. Discussed with hospitalist, lot worker and bedside nurse. Admission and Anticipated Discharge Date Admission Date: December 06, 2020 Subjective Patient seen and examined this morning. He is doing very well. He has been in a sinus rhythm. He remains hypertensive and is getting his oral hypertensive medications. He is saturating well on 3 Liters of oxygen. No significant events overnight. Review of Systems Review of Systems: All systems reviewed & are unremarkable except as noted in HPI & below Physical Exam Physical Exam: Constitutional: Chronically ill-appearing male in no significant distress. Nasal cannula in place. Eyes: Pupils are equal round and reactive to light. Conjunctivae are normal. Anicteric sclera. Ears nose, mouth and throat: No obvious deformities. Neck: Trachea is midline. Visual inspection is normal. Respiratory: Diminished lung sounds bilaterally. No wheezes. Cardiovascular: Regular rate and rhythm. No murmurs. No edema. Gastrointestinal: Normal bowel sounds, soft, nontender and nondistended. . Musculoskeletal: No cyanosis. Patient is able to move all extremities. Skin: No rashes, warm dry and intact. Neurologic: No focal deficits. Psychiatric: Anxious and agitated Results & Data Results & Data ([facility]) Vital Signs (Past 12 Hours) Vital Signs Pulse Pulse Resp BP Pulse Ox 12/11/20 09:08 65 12/11/20 09:00 70 18 163/85 H 98 12/11/20 08:00 72 24 162/82 H 99 12/11/20 07:30 65 65 22 93 12/11/20 07:00 65 25 H 163/92 H 94 12/11/20 06:00 75 34 H 163/83 H 91 12/11/20 05:45 82 20 99 12/11/20 05:00 156/84 H 12/11/20 04:00 72 19 161/98 H 99 12/11/20 03:00 67 20 94 12/11/20 02:00 158/81 H 100 12/11/20 01:16 66 19 99 12/11/20 01:00 61 16 119/60 100 12/11/20 00:42 68 12/11/20 00:00 64 16 161/65 H 98 12/10/20 23:00 66 19 164/86 H 99 Vital signs, labs and imaging personally reviewed Coding Level of Care Code 02047 Subseq Hosp Care Lvl 3 Diagnoses Atrial fibrillation with rapid ventricular response I48.91 COPD (chronic obstructive pulmonary disease) J44.9 COPD type: unspecified COPD Acute on chronic respiratory failure with hypoxia and hypercapnia J96.21; J96.22 Lung nodule R91.1 Altered mental state R41.82 (1) COPD (chronic obstructive pulmonary disease) COPD type: unspecified COPD Qualified Code(s): J44.9 - Chronic obstructive pulmonary disease, unspecified
--- NOTE | 2020-12-11 12:16 | Electroencephalogram ---
EEG Procedure Note Date of Service December 11, 2020 Start / End Times Start Time: 1030 End Time: 1050 Referring Physician Bill Smith MD History Encephalopathy with left greater than right hand tremor question seizures Home Medication List Medication Instructions Recorded Confirmed Type docusate sodium 100 mg capsule 100 mg PO QAM 01/28/18 12/06/20 History (Colace) gabapentin 300 mg capsule 300 mg PO HS 01/28/18 12/06/20 History fluticasone fur. 100 mcg-umeclid 1 inh INHALATION QAM 02/13/19 12/06/20 History 62.5 mcg-vilant 25 mcg inhalat.powder (Trelegy Ellipta) levothyroxine 50 mcg tablet 50 mcg PO DAILY 02/13/19 12/06/20 History sertraline 100 mg tablet 100 mg PO QAM 02/13/19 12/06/20 History verapamil 120 mg tablet,extended 120 mg PO QAM 02/13/19 12/06/20 History release albuterol sulfate 2.5 mg INHALATION Q4 PRN 06/16/20 12/06/20 History ipratropium 20 mcg-albuterol 100 1 puff INHALATION QID PRN 06/16/20 12/06/20 History mcg/actuation mist for inhalation (Combivent Respimat) azithromycin 250 mg tablet 250 mg PO UD 30 Days #30 tab 06/22/20 12/06/20 Rx (Zithromax) pantoprazole 40 mg tablet,delayed 40 mg PO DAILY #30 tab 06/28/20 12/06/20 Rx release (Protonix) atorvastatin 40 mg tablet 40 mg PO DAILY 12/06/20 12/06/20 History lisinopril 10 mg tablet 10 mg PO DAILY 12/06/20 12/06/20 History montelukast 10 mg tablet 10 mg PO DAILY 12/06/20 12/06/20 History Inpatient Medication List Albuterol (Albut/Ipratrop 3mg/0.5mg Neb 3 Ml Vial) 3 ml NEB QIDR [facility] Stop: 01/05/21 18:59 Last Admin: 12/11/20 11:23 Dose: 3 ml Documented by: [id number] Admin: 12/11/20 07:31 Dose: 3 ml Documented by: [id number] Admin: 12/10/20 18:58 Dose: 3 ml Documented by: [id number] Admin: 12/10/20 15:05 Dose: 3 ml Documented by: [id number] Admin: 12/10/20 12:58 Dose: 3 ml Documented by: [id number] Admin: 12/10/20 06:51 Dose: 3 ml Documented by: [id number] Admin: 12/09/20 19:14 Dose: 3 ml Documented by: [id number] Admin: 12/09/20 15:18 Dose: 3 ml Documented by: [id number] Admin: 12/09/20 10:54 Dose: 3 ml Documented by: [id number] Admin: 12/09/20 08:02 Dose: 3 ml Documented by: [id number] Admin: 12/09/20 03:25 Dose: 3 ml Documented by: [id number] Admin: 12/08/20 23:48 Dose: 3 ml Documented by: [id number] Admin: 12/08/20 19:50 Dose: Not Given Documented by: [id number] Admin: 12/08/20 14:50 Dose: 3 ml Documented by: [id number] Admin: 12/08/20 10:39 Dose: 3 ml Documented by: [id number] Admin: 12/08/20 07:27 Dose: 3 ml Documented by: [id number] Admin: 12/07/20 20:13 Dose: 3 ml Documented by: [id number] Admin: 12/07/20 14:44 Dose: 3 ml Documented by: [id number] Admin: 12/07/20 10:57 Dose: 3 ml Documented by: [id number] Admin: 12/07/20 07:32 Dose: 3 ml Documented by: [id number] Admin: 12/06/20 18:19 Dose: 3 ml Documented by: [id number] Atorvastatin Calcium (Atorvastatin 40 Mg Tab) 40 mg PO DAILY SAE Stop: 01/06/21 08:59 Last Admin: 12/08/20 08:29 Dose: Not Given Documented by: [id number] Admin: 12/07/20 08:33 Dose: Not Given Documented by: [id number] Docusate Sodium (Docusate Sodium Syrup 100 Mg/10 Ml Udc) 100 mg PO QAM SAE Stop: 01/09/21 08:59 Last Admin: 12/11/20 08:25 Dose: 100 mg Documented by: [id number] Admin: 12/10/20 08:23 Dose: 100 mg Documented by: [id number] Fluticasone Furoate (Fluticasone Furoate 100mcg 14 Puffs/Inhaler) 1 puffs INH DAILY SAE; Protocol Stop: 01/06/21 08:59 Last Admin: 12/11/20 08:26 Dose: 1 puffs Documented by: [id number] Admin: 12/10/20 08:23 Dose: Not Given Documented by: [id number] Admin: 12/09/20 08:39 Dose: Not Given Documented by: [id number] Admin: 12/08/20 08:29 Dose: Not Given Documented by: [id number] Admin: 12/07/20 08:50 Dose: Not Given Documented by: [id number] Gabapentin (Gabapentin 250 Mg/5 Ml 470 Ml Btl) 300 mg PO HS SAE Stop: 01/08/21 20:59 Last Admin: 12/10/20 20:23 Dose: 300 mg Documented by: [id number] Admin: 12/09/20 20:06 Dose: 300 mg Documented by: [id number] Pantoprazole Sodium 40 mg/ (Syringe) 10 mls @ 5 mls/min IV DAILY@1100 SAE Stop: 01/06/21 10:59 Last Admin: 12/11/20 10:10 Dose: 5 mls/min Documented by: [id number] Admin: 12/10/20 11:51 Dose: 5 mls/min Documented by: [id number] Admin: 12/09/20 11:12 Dose: 5 mls/min Documented by: [id number] Admin: 12/08/20 12:41 Dose: 5 mls/min Documented by: [id number] Admin: 12/07/20 12:07 Dose: 5 mls/min Documented by: [id number] Folic Acid 1 mg/ Syringe 10 mls @ 5 mls/min IV QAM SAE Stop: 01/07/21 12:29 Last Admin: 12/11/20 08:27 Dose: 5 mls/min Documented by: [id number] Admin: 12/10/20 08:27 Dose: 5 mls/min Documented by: [id number] Admin: 12/09/20 09:29 Dose: 5 mls/min Documented by: [id number] Admin: 12/08/20 12:38 Dose: 5 mls/min Documented by: [id number] Thiamine HCl 200 mg/ Sodium (Chloride) 52 mls @ 208 mls/hr IV Q8H SAE Stop: 01/07/21 19:29 Last Infusion: 12/11/20 05:16 Dose: 0 mls/hr Documented by: [id number] Admin: 12/11/20 04:54 Dose: 208 mls/hr Documented by: [id number] Infusion: 12/10/20 20:38 Dose: 0 mls/hr Documented by: [id number] Admin: 12/10/20 20:23 Dose: 208 mls/hr Documented by: [id number] Infusion: 12/10/20 12:06 Dose: 0 mls/hr Documented by: [id number] Admin: 12/10/20 11:51 Dose: 208 mls/hr Documented by: [id number] Infusion: 12/10/20 05:03 Dose: 0 mls/hr Documented by: [id number] Admin: 12/10/20 04:33 Dose: 208 mls/hr Documented by: [id number] Infusion: 12/09/20 20:21 Dose: 0 mls/hr Documented by: [id number] Admin: 12/09/20 19:52 Dose: 208 mls/hr Documented by: [id number] Infusion: 12/09/20 11:28 Dose: 0 mls/hr Documented by: [id number] Admin: 12/09/20 11:12 Dose: 208 mls/hr Documented by: [id number] Infusion: 12/09/20 04:14 Dose: 0 mls/hr Documented by: [id number] Admin: 12/09/20 03:35 Dose: 208 mls/hr Documented by: [id number] Infusion: 12/08/20 22:03 Dose: 0 mls/hr Documented by: [id number] Admin: 12/08/20 21:48 Dose: 208 mls/hr Documented by: [id number] Methylprednisolone 40 mg/ (Syringe) 0.64 mls @ 1.5 mls/min IV DAILY SAE Stop: 01/08/21 08:59 Last Admin: 12/11/20 08:25 Dose: 1.5 mls/min Documented by: [id number] Admin: 12/10/20 08:26 Dose: 1.5 mls/min Documented by: [id number] Admin: 12/09/20 09:29 Dose: 1.5 mls/min Documented by: [id number] Lorazepam (Ativan) 1 mg in 2 mls @ 2 mls/min IV UD PRN; Protocol PRN Reason: EtOH Withdrawl AWSS Score 6,7 Stop: 01/07/21 19:38 Last Admin: 12/08/20 21:44 Dose: 2 mls/min Documented by: [id number] Admin: 12/08/20 21:42 Dose: 2 mls/min Documented by: [id number] Heparin Sodium/Dextrose (Heparin Sodium/Dextrose) 25,000 units in 500 mls @ 22 mls/hr IV .[id number] SAE; Protocol Stop: 01/09/21 17:14 Last Titration: 12/11/20 07:16 Dose: 1,100 units/hr, 22 mls/hr Documented by: [id number] Cosigned by: [id number] Titration: 12/11/20 01:51 Dose: 1,100 units/hr, 22 mls/hr Documented by: [id number] Cosigned by: [id number] Titration: 12/10/20 18:59 Dose: 1,000 units/hr, 20 mls/hr Documented by: [id number] Cosigned by: [id number] Admin: 12/10/20 18:44 Dose: 1,000 units/hr, 20 mls/hr Documented by: [id number] Cosigned by: [id number] Amiodarone HCl/Dextrose (Nexterone / D5w) 360 mg in 200 mls @ 16.667 mls/hr IV .Q12H SAE Stop: 01/09/21 21:59 Last Admin: 12/11/20 08:39 Dose: 0.5 mg/min, 16.7 mls/hr Documented by: [id number] Cosigned by: [id number] Infusion: 12/11/20 08:39 Dose: 0.5 mg/min, 16.7 mls/hr Documented by: [id number] Cosigned by: [id number] Admin: 12/10/20 21:26 Dose: 0.5 mg/min, 16.7 mls/hr Documented by: [id number] Cosigned by: [id number] Azithromycin 250 mg/ Dextrose 252.5 mls @ 125 mls/hr IV DAILY SAE Stop: 12/14/20 08:59 Last Infusion: 12/11/20 10:27 Dose: 0 mls/hr Documented by: [id number] Admin: 12/11/20 08:25 Dose: 125 mls/hr Documented by: [id number] Levothyroxine Sodium (Levothyroxine Sodium 50 Mcg Tablet) 50 mcg PO DAILYBB [facility] Stop: 01/06/21 06:29 Last Admin: 12/11/20 05:38 Dose: 50 mcg Documented by: [id number] Admin: 12/10/20 05:49 Dose: 50 mcg Documented by: [id number] Admin: 12/09/20 06:34 Dose: Not Given Documented by: [id number] Admin: 12/08/20 07:34 Dose: Not Given Documented by: [id number] Admin: 12/07/20 05:11 Dose: 50 mcg Documented by: [id number] Lisinopril (Lisinopril 10 Mg Tab) 10 mg PO DAILY [facility] Stop: 01/06/21 08:59 Last Admin: 12/11/20 08:26 Dose: 10 mg Documented by: [id number] Admin: 12/10/20 08:53 Dose: Not Given Documented by: [id number] Admin: 12/09/20 09:58 Dose: 10 mg Documented by: [id number] Admin: 12/08/20 08:30 Dose: Not Given Documented by: [id number] Admin: 12/07/20 08:33 Dose: Not Given Documented by: [id number] Miscellaneous (Remove Nicoderm Patch) 1 ea N/A DAILY@0859 [facility] Stop: 01/07/21 08:58 Last Admin: 12/11/20 08:27 Dose: 1 ea Documented by: [id number] Admin: 12/10/20 08:23 Dose: 1 ea Documented by: [id number] Admin: 12/09/20 07:36 Dose: 1 ea Documented by: [id number] Admin: 12/08/20 09:31 Dose: 1 ea Documented by: [id number] Montelukast Sodium (Montelukast Sodium 10 Mg Tablet) 10 mg PO DAILY [facility] Stop: 01/06/21 08:59 Last Admin: 12/11/20 08:26 Dose: 10 mg Documented by: [id number] Admin: 12/10/20 08:24 Dose: 10 mg Documented by: [id number] Admin: 12/09/20 09:58 Dose: 10 mg Documented by: [id number] Admin: 12/08/20 08:30 Dose: Not Given Documented by: [id number] Admin: 12/07/20 08:33 Dose: Not Given Documented by: [id number] Multivitamins (Multivitamin Tab) 1 tab PO QAM SAE Stop: 01/07/21 08:59 Last Admin: 12/11/20 08:26 Dose: 1 tab Documented by: [id number] Admin: 12/10/20 08:24 Dose: 1 tab Documented by: [id number] Admin: 12/09/20 09:58 Dose: Not Given Documented by: [id number] Admin: 12/08/20 08:30 Dose: Not Given Documented by: [id number] Nicotine (Nicotine 14 Mg/24 Hr Patch) 14 mg TD QAM [facility] Stop: 01/06/21 12:29 Last Admin: 12/11/20 08:25 Dose: 14 mg Documented by: [id number] Admin: 12/10/20 08:24 Dose: 14 mg Documented by: [id number] Admin: 12/09/20 07:37 Dose: 14 mg Documented by: [id number] Admin: 12/08/20 09:31 Dose: 14 mg Documented by: [id number] Admin: 12/07/20 12:50 Dose: 14 mg Documented by: [id number] Pantoprazole Sodium (Pantoprazole 40 Mg Tab) 40 mg PO DAILY SAE Stop: 01/06/21 08:59 Last Admin: 12/08/20 08:31 Dose: Not Given Documented by: [id number] Admin: 12/07/20 08:33 Dose: Not Given Documented by: [id number] Sertraline HCl (Sertraline Hcl 100 Mg Tablet) 100 mg PO QAM [facility] Stop: 01/06/21 08:59 Last Admin: 12/11/20 08:26 Dose: 100 mg Documented by: [id number] Admin: 12/10/20 08:24 Dose: 100 mg Documented by: [id number] Admin: 12/09/20 09:58 Dose: 100 mg Documented by: [id number] Admin: 12/08/20 08:31 Dose: Not Given Documented by: [id number] Admin: 12/07/20 08:33 Dose: Not Given Documented by: [id number] Umeclidinium/Vilanterol (Umeclidinium/Vilanterol 62.5/25mcg 7 Puffs/Inhaler) 1 puffs INH DAILY SAE; Protocol Stop: 01/06/21 08:59 Last Admin: 12/11/20 08:26 Dose: 1 puffs Documented by: [id number] Admin: 12/10/20 08:24 Dose: Not Given Documented by: [id number] Admin: 12/09/20 09:58 Dose: Not Given Documented by: [id number] Admin: 12/08/20 08:31 Dose: Not Given Documented by: [id number] Admin: 12/07/20 08:51 Dose: Not Given Documented by: [id number] Verapamil HCl (Verapamil Hcl 120 Mg Tabcr) 120 mg PO QAM [facility]E Stop: 01/06/21 08:59 Last Admin: 12/11/20 10:38 Dose: 120 mg Documented by: [id number] Admin: 12/09/20 07:37 Dose: Not Given Documented by: [id number] Admin: 12/08/20 08:31 Dose: Not Given Documented by: [id number] Admin: 12/07/20 08:34 Dose: Not Given Documented by: [id number] Discontinued Medications Adenosine (Adenosine Iv Soln 3 Mg/Ml 2 Ml Vial) Confirm Administered Dose 6 mg IV .STK-MED ONE Stop: 12/08/20 18:01 Last Admin: 12/08/20 18:03 Dose: 6 mg Documented by: [id number] Adenosine (Adenosine Iv Soln 3 Mg/Ml 2 Ml Vial) Confirm Administered Dose 12 mg IV .STK-MED ONE Stop: 12/08/20 18:07 Last Admin: 12/08/20 18:39 Dose: Not Given Documented by: [id number] Albuterol (Albut/Ipratrop 3mg/0.5mg Neb 3 Ml Vial) 12 ml INH ONE STA Stop: 12/06/20 14:57 Last Admin: 12/06/20 15:16 Dose: 12 ml Documented by: [id number] Amiodarone HCl/Dextrose (Amiodarone 150mg / 100ml D5w) Confirm Administered Dose 150 mg IV .STK-MED ONE Stop: 12/08/20 20:35 Last Admin: 12/08/20 21:45 Dose: 150 mg Documented by: [id number] Cosigned by: [id number] Dexamethasone Sodium Phosphate (DexamethasonePf 10 Mg/Ml Vial) 6 mg IV NOW ONE Stop: 12/06/20 14:57 Last Admin: 12/06/20 15:14 Dose: 6 mg Documented by: [id number] Docusate Sodium (Docusate Sodium 100 Mg Cap) 100 mg PO QAM SAE Stop: 01/06/21 08:59 Last Admin: 12/09/20 08:39 Dose: Not Given Documented by: [id number] Admin: 12/08/20 08:29 Dose: Not Given Documented by: [id number] Admin: 12/07/20 08:33 Dose: Not Given Documented by: [id number] Enoxaparin Sodium (Enoxaparin Inj 40 Mg/0.4 Ml Syr) 40 mg SQ Q24H SAE Stop: 01/05/21 18:59 Last Admin: 12/09/20 19:51 Dose: 40 mg Documented by: [id number] Admin: 12/08/20 21:51 Dose: 40 mg Documented by: [id number] Admin: 12/07/20 19:44 Dose: 40 mg Documented by: [id number] Admin: 12/06/20 20:01 Dose: 40 mg Documented by: [id number] Enteral Nutritional Formula (Peptamen 1.5 Jin 1,000 Ml Bag) 1,000 ml PO CONT SAE; Protocol Stop: 01/08/21 15:44 Last Admin: 12/09/20 16:35 Dose: 1,000 ml Documented by: [id number] Fentanyl Citrate (Fentanyl Bolus From Bag) 50 mcg IV Q60M PRN PRN Reason: Pain or Agitation Stop: 12/22/20 20:54 Last Admin: 12/09/20 14:17 Dose: 50 mcg Documented by: [id number] Flumazenil (Flumazenil 0.1 Mg/1 Ml 10 Ml Vial) 0.2 mg IV NOW STA Stop: 12/08/20 01:17 Last Admin: 12/08/20 01:20 Dose: 0.2 mg Documented by: [id number] Flumazenil (Flumazenil 0.1 Mg/1 Ml 10 Ml Vial) Confirm Administered Dose 1 mg IV .STK-MED ONE Stop: 12/08/20 01:21 Last Admin: 12/08/20 01:59 Dose: Not Given Documented by: [id number] Folic Acid (Folic Acid 1 Mg Tab) 1 mg PO QAM SAE Stop: 01/07/21 08:59 Last Admin: 12/08/20 08:29 Dose: Not Given Documented by: [id number] Gabapentin (Gabapentin 300 Mg Cap) 300 mg PO HS SAE Stop: 01/05/21 20:59 Last Admin: 12/08/20 22:13 Dose: Not Given Documented by: [id number] Admin: 12/07/20 22:09 Dose: Not Given Documented by: [id number] Admin: 12/06/20 21:27 Dose: 300 mg Documented by: [id number] Glycopyrrolate (Glycopyrrolate 0.2 Mg/Ml Vial) 0.2 mg IV ONCE ONE Stop: 12/09/20 03:03 Last Admin: 12/09/20 03:36 Dose: 0.2 mg Documented by: [id number] Azithromycin 500 mg/ Dextrose 255 mls @ 127.5 mls/hr IV NOW STA Stop: 12/06/20 18:40 Last Infusion: 12/06/20 20:01 Dose: 0 mls/hr Documented by: [id number] Admin: 12/06/20 17:37 Dose: 127.5 mls/hr Documented by: [id number] Azithromycin 500 mg/ Dextrose 255 mls @ 127.5 mls/hr IV Q24H SAE Stop: 12/14/20 16:59 Last Infusion: 12/10/20 18:00 Dose: 0 mls/hr Documented by: [id number] Admin: 12/10/20 16:29 Dose: 127 mls/hr Documented by: [id number] Infusion: 12/09/20 18:50 Dose: 0 mls/hr Documented by: [id number] Admin: 12/09/20 16:38 Dose: 127 mls/hr Documented by: [id number] Infusion: 12/08/20 19:16 Dose: 0 mls/hr Documented by: [id number] Admin: 12/08/20 17:16 Dose: 127.5 mls/hr Documented by: [id number] Infusion: 12/07/20 18:42 Dose: 0 mls/hr Documented by: [id number] Admin: 12/07/20 16:40 Dose: 127.5 mls/hr Documented by: [id number] Methylprednisolone 40 mg/ (Syringe) 0.64 mls @ 1.5 mls/min IV Q8H SAE Stop: 01/06/21 09:59 Last Admin: 12/08/20 17:16 Dose: 1.5 mls/min Documented by: [id number] Admin: 12/08/20 09:31 Dose: 1.5 mls/min Documented by: [id number] Admin: 12/08/20 01:00 Dose: 1.5 mls/min Documented by: [id number] Admin: 12/07/20 16:40 Dose: 1.5 mls/min Documented by: [id number] Admin: 12/07/20 10:12 Dose: 1.5 mls/min Documented by: [id number] Lorazepam (Ativan) 3 mg in 6 mls @ 4 mls/min IV ONCE PRN; Protocol PRN Reason: EtOH Withdrawl AWSS Score >=10 Stop: 01/06/21 19:51 Last Admin: 12/07/20 22:04 Dose: 4 mls/min Documented by: [id number] Thiamine HCl 100 mg/ Syringe 10 mls @ 2 mls/min [facility] Stop: 12/08/20 01:38 Last Admin: 12/08/20 01:50 Dose: 2 mls/min Documented by: [id number] Dextrose/Sodium Chloride (D5w And Nss) 1,000 mls @ 40 mls/hr IV .Q24H [facility] Stop: 01/07/21 05:14 Last Infusion: 12/09/20 14:17 Dose: 0 mls/hr Documented by: [id number] Admin: 12/08/20 21:58 Dose: 40 mls/hr Documented by: [id number] Infusion: 12/08/20 21:58 Dose: 40 mls/hr Documented by: [id number] Admin: 12/08/20 05:47 Dose: 40 mls/hr Documented by: [id number] Thiamine HCl 100 mg/ Syringe 10 mls @ 2 mls/min IV QAM SAE Stop: 01/07/21 12:29 Last Admin: 12/08/20 12:38 Dose: 2 mls/min Documented by: [id number] Pantoprazole Sodium 40 mg/ (Syringe) 10 mls @ 5 mls/min IV QAM ONE Stop: 12/08/20 12:21 Last Admin: 12/08/20 12:40 Dose: Not Given Documented by: [id number] Dexmedetomidine HCl 200 mcg/ (Sodium Chloride) 50 mls @ 0 mls/hr IV .Q0M SAE; Protocol Stop: 12/12/20 19:29 Last Titration: 12/10/20 14:00 Dose: 0 mcg/kg/hr, 0 mls/hr Documented by: [id number] Titration: 12/08/20 22:14 Dose: 0 mcg/kg/hr, 0 mls/hr Documented by: [id number] Admin: 12/08/20 19:24 Dose: 0.4 mcg/kg/hr, 5.5 mls/hr Documented by: [id number] Cosigned by: [id number] Ceftriaxone Sodium 1,000 mg/ (Dextrose) 50 mls @ 100 mls/hr IV Q24H [facility]; Protocol Stop: 12/15/20 19:59 Last Infusion: 12/09/20 20:22 Dose: 0 mls/hr Documented by: [id number] Admin: 12/09/20 19:51 Dose: 100 mls/hr Documented by: [id number] Infusion: 12/08/20 22:18 Dose: 0 mls/hr Documented by: [id number] Admin: 12/08/20 21:48 Dose: 100 mls/hr Documented by: [id number] Fentanyl Citrate (Fentanyl Drip) 1,250 mcg in 250 mls @ 0 mls/hr IV .Q0M [facility]; Protocol Stop: 12/22/20 20:59 Last Titration: 12/10/20 13:56 Dose: 0 mcg/hr, 0 mls/hr Documented by: [id number] Cosigned by: [id number] Titration: 12/10/20 09:45 Dose: 0 mcg/hr, 0 mls/hr Documented by: [id number] Cosigned by: [id number] Titration: 12/10/20 07:00 Dose: 25 mcg/hr, 5 mls/hr Documented by: [id number] Cosigned by: [id number] Titration: 12/09/20 19:08 Dose: 25 mcg/hr, 5 mls/hr Documented by: [id number] Cosigned by: [id number] Titration: 12/09/20 14:18 Dose: 25 mcg/hr, 5 mls/hr Documented by: [id number] Cosigned by: [id number] Titration: 12/09/20 11:13 Dose: 0 mcg/hr, 0 mls/hr Documented by: [id number] Cosigned by: [id number] Titration: 12/09/20 10:45 Dose: 25 mcg/hr, 5 mls/hr Documented by: [id number] Cosigned by: [id number] Titration: 12/09/20 09:29 Dose: 50 mcg/hr, 10 mls/hr Documented by: [id number] Cosigned by: [id number] Titration: 12/09/20 08:00 Dose: 75 mcg/hr, 15 mls/hr Documented by: [id number] Cosigned by: [id number] Admin: 12/09/20 07:40 Dose: 25 mcg/hr, 5 mls/hr Documented by: [id number] Cosigned by: [id number] Titration: 12/09/20 07:40 Dose: 125 mcg/hr, 25 mls/hr Documented by: [id number] Cosigned by: [id number] Titration: 12/09/20 07:14 Dose: 25 mcg/hr, 5 mls/hr Documented by: [id number] Cosigned by: [id number] Admin: 12/08/20 22:09 Dose: 25 mcg/hr, 5 mls/hr Documented by: [id number] Cosigned by: [id number] Propofol (Diprivan) 1,000 mg in 100 mls @ 4.959 mls/hr IV .[id number] SAE; Protocol Stop: 12/11/20 20:59 Last Titration: 12/10/20 13:57 Dose: 0 mcg/kg/min, 0 mls/hr Documented by: [id number] Titration: 12/10/20 07:00 Dose: 15 mcg/kg/min, 5 mls/hr Documented by: [id number] Cosigned by: [id number] Titration: 12/10/20 01:00 Dose: 15 mcg/kg/min, 5 mls/hr Documented by: [id number] Admin: 12/10/20 00:41 Dose: 10 mcg/kg/min, 3.3 mls/hr Documented by: [id number] Cosigned by: [id number] Titration: 12/10/20 00:41 Dose: 10 mcg/kg/min, 3.3 mls/hr Documented by: [id number] Cosigned by: [id number] Titration: 12/09/20 19:08 Dose: 10 mcg/kg/min, 3.3 mls/hr Documented by: [id number] Cosigned by: [id number] Titration: 12/09/20 15:59 Dose: 10 mcg/kg/min, 3.3 mls/hr Documented by: [id number] Titration: 12/09/20 10:03 Dose: 0 mcg/kg/min, 0 mls/hr Documented by: [id number] Titration: 12/09/20 07:51 Dose: 10 mcg/kg/min, 3.3 mls/hr Documented by: [id number] Titration: 12/09/20 07:14 Dose: 30 mcg/kg/min, 9.9 mls/hr Documented by: [id number] Cosigned by: [id number] Admin: 12/09/20 03:48 Dose: 30 mcg/kg/min, 9.9 mls/hr Documented by: [id number] Cosigned by: [id number] Titration: 12/09/20 03:48 Dose: 30 mcg/kg/min, 9.9 mls/hr Documented by: [id number] Cosigned by: [id number] Titration: 12/08/20 22:15 Dose: 30 mcg/kg/min, 9.9 mls/hr Documented by: [id number] Titration: 12/08/20 21:55 Dose: 25 mcg/kg/min, 8.3 mls/hr Documented by: [id number] Admin: 12/08/20 21:48 Dose: 20 mcg/kg/min, 6.6 mls/hr Documented by: [id number] Cosigned by: [id number] Potassium Phosphate 21 mmol/ (Sodium Chloride) 507 mls @ 140 mls/hr IV 0630 ONE Stop: 12/09/20 10:07 Last Infusion: 12/09/20 10:03 Dose: 0 mls/hr Documented by: [id number] Admin: 12/09/20 06:34 Dose: 140 mls/hr Documented by: [id number] Dextrose/Sodium Chloride (D5w And Nss) 1,000 mls @ 80 mls/hr IV .[id number] SAE Stop: 01/08/21 12:44 Last Admin: 12/10/20 13:56 Dose: Not Given Documented by: [id number] Infusion: 12/10/20 13:11 Dose: 0 mls/hr Documented by: [id number] Admin: 12/10/20 00:41 Dose: 80 mls/hr Documented by: [id number] Infusion: 12/10/20 00:41 Dose: 80 mls/hr Documented by: [id number] Admin: 12/09/20 12:53 Dose: 80 mls/hr Documented by: [id number] Amiodarone HCl/Dextrose (Nexterone / D5w) 150 mg in 100 mls @ 600 mls/hr IV NOW STA Stop: 12/10/20 16:12 Last Infusion: 12/10/20 16:34 Dose: 0 mls/hr Documented by: [id number] Cosigned by: [id number] Admin: 12/10/20 16:23 Dose: 600 mls/hr Documented by: [id number] Cosigned by: [id number] Amiodarone HCl/Dextrose (Nexterone / D5w) 360 mg in 200 mls @ 33.333 mls/hr IV ONE ONE Stop: 12/10/20 22:08 Last Infusion: 12/10/20 22:31 Dose: 0 mls/hr Documented by: [id number] Cosigned by: [id number] Admin: 12/10/20 16:30 Dose: 33.3 mls/hr Documented by: [id number] Cosigned by: [id number] Potassium Chloride ([place] / Wtr) 10 meq in 100 mls @ 100 mls/hr IV Q1H SAE Stop: 12/10/20 20:59 Last Infusion: 12/10/20 21:24 Dose: 0 mls/hr Documented by: [id number] Admin: 12/10/20 20:20 Dose: 100 mls/hr Documented by: [id number] Infusion: 12/10/20 20:18 Dose: 100 mls/hr Documented by: [id number] Admin: 12/10/20 19:18 Dose: 100 mls/hr Documented by: [id number] Infusion: 12/10/20 19:13 Dose: 100 mls/hr Documented by: [id number] Admin: 12/10/20 18:13 Dose: 100 mls/hr Documented by: [id number] Infusion: 12/10/20 17:37 Dose: 100 mls/hr Documented by: [id number] Admin: 12/10/20 16:37 Dose: 100 mls/hr Documented by: [id number] Heparin Sodium (Porcine) 2,000 (units/ Syringe) 2 mls @ 10 mls/min IV NOW ONE Stop: 12/11/20 02:31 Last Admin: 12/11/20 02:34 Dose: 10 mls/min Documented by: [id number] Cosigned by: [id number] Lorazepam (Lorazepam 1 Mg Tab) 1 mg PO ONE PRN; Protocol PRN Reason: EtoH Withdrawal AWSS 6-10 Last Admin: 12/07/20 19:44 Dose: 1 mg Documented by: [id number] Lorazepam (Lorazepam 2 Mg/4 Ml Vial) Confirm Administered Dose 2 mg .ROUTE .STK- MED ONE Stop: 12/08/20 19:33 Last Admin: 12/08/20 21:47 Dose: Not Given Documented by: [id number] Metoprolol Tartrate (Metoprolol Tartrate 1 Mg/Ml Vial) 5 mg IV NOW STA Stop: 12/08/20 17:53 Last Admin: 12/08/20 18:37 Dose: Not Given Documented by: [id number] Metoprolol Tartrate (Metoprolol Tartrate 1 Mg/Ml Vial) Confirm Administered Dose 5 mg IV .STK-MED ONE Stop: 12/08/20 17:57 Last Admin: 12/08/20 18:37 Dose: Not Given Documented by: [id number] Metoprolol Tartrate (Metoprolol Tartrate 1 Mg/Ml Vial) 2.5 mg IV NOW STA Stop: 12/08/20 19:49 Last Admin: 12/08/20 21:40 Dose: 2.5 mg Documented by: [id number] Metoprolol Tartrate (Metoprolol Tartrate 1 Mg/Ml Vial) 5 mg IV NOW STA Stop: 12/10/20 16:25 Last Admin: 12/10/20 16:37 Dose: 5 mg Documented by: [id number] Metoprolol Tartrate (Metoprolol Tartrate 1 Mg/Ml Vial) Confirm Administered Dose 5 mg IV .STK-MED ONE Stop: 12/10/20 16:29 Last Admin: 12/10/20 16:37 Dose: Not Given Documented by: [id number] Miscellaneous (Rapid Sequence Induction Bag) Confirm Administered Dose 1 ea .ROUTE .STK-MED ONE Stop: 12/08/20 20:44 Last Admin: 12/08/20 22:05 Dose: 1 ea Documented by: [id number] Nutritional Formula (Prosource No Carb 30 Ml/Pkt) 30 ml GT DAILY SAE Stop: 01/08/21 15:59 Last Admin: 12/10/20 08:53 Dose: 30 ml Documented by: [id number] Admin: 12/09/20 16:35 Dose: 30 ml Documented by: [id number] Olanzapine (Olanzapine 10 Mg/2.1 Ml Sdv) 2.5 mg IM Q4H PRN PRN Reason: Anxiety/Agitation Stop: 01/07/21 01:30 Last Admin: 12/10/20 16:13 Dose: 2.5 mg Documented by: [id number] Olanzapine (Olanzapine 10 Mg/2.1 Ml Sdv) 2.5 mg IM NOW STA Stop: 12/10/20 19:52 Last Admin: 12/10/20 21:08 Dose: 2.5 mg Documented by: [id number] Propofol (Propofol Iv Emulsion 10 Mg/Ml 100 Ml Vial) Confirm Administered Dose 1,000 mg IV .STK-MED ONE Stop: 12/08/20 20:54 Last Admin: 12/08/20 22:03 Dose: Not Given Documented by: [id number] Propofol (Propofol Bolus From Bag) 20 mg IV Q5M PRN PRN Reason: Sedation Stop: 12/11/20 20:54 Last Admin: 12/09/20 15:58 Dose: 20 mg Documented by: [id number] Cosigned by: [id number] Admin: 12/09/20 12:53 Dose: 20 mg Documented by: [id number] Cosigned by: [id number] Sterile Water (Tube Feeding Water Flush) 60 ml GT Q4H SAE Stop: 01/08/21 15:59 Last Admin: 12/10/20 11:52 Dose: Not Given Documented by: [id number] Admin: 12/10/20 08:23 Dose: 60 ml Documented by: [id number] Admin: 12/10/20 04:33 Dose: 60 ml Documented by: [id number] Admin: 12/10/20 00:32 Dose: 60 ml Documented by: [id number] Admin: 12/09/20 19:53 Dose: 60 ml Documented by: [id number] Admin: 12/09/20 16:35 Dose: 60 ml Documented by: [id number] Description This is a 21 electrode EEG with a single channel dedicated to limited EKG. The electrodes were placed in accordance with the International 10-20 system. This EEG was done as a bedside recording and is of great technical quality with fewer no muscle movement artifacts. Simultaneous video recording of patient movement was obtained. Drowsiness and light sleep were not recorded During wakefulness the EEG demonstrates normal background alpha rhythm of up to 10 Hz maximum frequency and 30 V a maximum amplitude which is bilaterally symmetrical in maximum posterior head regions. Polymorphic mid to upper frequency modest voltage theta activity is seen symmetrically in the central regions. Beta activity seen bifrontally No potentially epileptogenic activity is seen Photic stimulation provokes a modest driving response Video analysis reveals minimal tremulousness of the hands without any unilateral accentuation Interpretation This is normal EEG during wakefulness Supervising Physician Co-Signing Physician Notes This is a normal EEG during wakefulness without evidence for focal or generalized encephalopathy without evidence for potentially epileptogenic activity. Video analysis reveals very minimal tremor activity which appears to be relatively symmetrical and if anything essential in nature rather than parkinsonian Bill Smith MD
--- NOTE | 2020-12-11 12:24 | Communication Note ---
Date of Service: December 11, 2020 Neurology has been asked to evaluate Mr. Villareal is 70-year-old white right- handed male with severe COPD paroxysmal atrial fibrillation and a host of other medical problems which are chronic in nature. He has been extubated after period of brief intubation due to hypoxemic failure and is now post BiPAP is on nasal oxygen and is alert oriented in three spheres this is a day by one, and tells me he has had a tremor of his hands for some time but denies a family history for same. He does have diabetes has numbness of his feet does not describe numbness of his hands It appears that the consult was requested because of the encephalopathy which is now largely resolved and is probably multifactorial and is associated with an unremarkable CT scan of the head and today and normal EEG My suspicions are that this is primarily driven by his hypoxia and hopefully this can be maintained at all not optimistic in view of his pulmonary function at this will be the case In terms of the tremor he states this is been present for some time it looks to be essential in nature and that it there with intention not at rest has no pill- rolling qualities and is not associated with any parkinsonian features such as bradykinesia rigidity loss of facial expression positive Myerson sign etc. and neurologic examination reveals evidence for polyneuropathy with areflexia at the ankles and knees some mild distal motor weakness and sensory loss to vibration and temperature into the severe proprioception in the distal lower extremities but sparing the hands At this point I certainly would not suggest treatment of the tremor. Some of this may be essential some this may reflect an alcohol withdrawal syndrome for which he has been treated and some of this may reflect his pulmonary meds ie albuterol, combivent, and his ssri treatments for depression in addition to the stress of his acute illness This is not parkinsons I would recommend no treatment at this time until the acte illness has resolved and this could be done on an outpatient visit basis Neurology will sign off at this time but can return prn should ther be any significant changes in his status Bill Smith MD
--- NOTE | 2020-12-11 15:40 | Cardiology Progress Note ---
Date of Service December 11, 2020 Assessment & Plan (1) Atrial fibrillation with rapid ventricular response: Plan: Paroxysmal atrial fibrillation noted in the setting of acute on chronic hypoxemic and hypercapnic respiratory failure. Possible alcohol withdrawal. Remains in sinus. He is considered poor candidate for long-term anticoagulation, given his comorbidities, fall risk, and unreliability of him to take the medication appropriately. Continue heparin infusion in the short-term. Resume oral verapamil. Transition from IV to oral amiodarone. Amiodarone of course not ideal from a pulmonary standpoint, but likely still our best option to avoid recurrent heart rates in the 160s. Admission and Anticipated Discharge Date Admission Date: December 06, 2020 Subjective Patient seen in follow-up. He was off of BiPAP support, and on nasal cannula when I had seen him this morning, 2 L/min, with pulse oximetry maintained in the 90s. He was much more alert. Telemetry revealed ongoing sinus rhythm in the 60s to 70s without significant tachycardia or bradycardia overnight or thus far today. Review of Systems Review of Systems: All systems reviewed & are unremarkable except as noted in HPI & below Physical Exam Physical Exam: Temp Pulse Resp BP Pulse Ox 37.3 C 67 18 163/85 H 98 12/10/20 18:15 12/11/20 15:00 12/11/20 15:00 12/11/20 09:00 12/11/20 15:00 Constitutional: Chronically ill in appearance without acute distress Respiratory: Coarse breath sounds bilaterally with no rales rhonchi or wheezing Cardiovascular: Rate/Rhythm: regular rate Heart Sounds: no murmur Extremities: no edema Musculoskeletal: Legs are thin, decreased muscle mass Neurologic: Conversant, follows commands Results & Data ([place]) Vital Signs (Past 12 Hours) Vital Signs Pulse Pulse Resp BP Pulse Ox Pulse Ox Pulse Ox 12/11/20 15:00 67 18 98 12/11/20 11:50 93 98 12/11/20 11:25 66 18 96 12/11/20 09:08 65 12/11/20 09:00 70 18 163/85 H 98 12/11/20 08:00 66 24 162/82 H 99 12/11/20 07:30 65 65 22 93 12/11/20 07:00 65 25 H 163/92 H 94 12/11/20 06:00 75 34 H 163/83 H 91 12/11/20 05:45 82 20 99 12/11/20 05:00 156/84 H 12/11/20 04:00 72 19 161/98 H 99 Pulse Ox 12/11/20 15:00 12/11/20 11:50 77 L 12/11/20 11:25 12/11/20 09:08 12/11/20 09:00 12/11/20 08:00 12/11/20 07:30 12/11/20 07:00 12/11/20 06:00 12/11/20 05:45 12/11/20 05:00 12/11/20 04:00 Laboratory Results Coagulation 12/10/20 12/11/20 12/11/20 Range/Units 17:57 01:05 07:53 APTT 23.1 35.0 H 59.3 H* (21.0-31.0) Seconds CBC 12/11/20 Range/Units 04:32 WBC 7.80 (4.8-10.8) K/uL RBC 3.14 L (4.7-6.1) M/uL Hgb 10.5 L (14.0-18.0) g/dL Hct 31.7 L (42-52) % Plt Count 106 L (130-400) K/uL Comprehensive Metabolic Panel 12/11/20 Range/Units 04:32 Sodium 142 (136-145) mmol/L Potassium 4.1 D (3.5-5.1) mmol/L Chloride 106 (98-107) mmol/L Carbon Dioxide 36 H (21-32) mmol/L BUN 18 (7-18) mg/dl Creatinine 0.78 (0.6-1.4) mg/dl Glucose 82 (70-99) mg/dl Calcium 8.2 L (8.5-10.1) mg/dl Intake and Output 12/11/20 12/11/20 12/11/20 06:59 14:59 22:59 Intake Total 189.333 / 2668.783 610.985 / 610.985 Output Total 1830 / 2630 Balance -1640.667 / 38.783 610.985 / 610.985 Intake: IV 189.333 / 2328.783 610.985 / 610.985 Amiodarone / D5w 360 mg In 200 187.318 / 187.318 ml @ 0.5 MG/MIN 16.667 mls/hr IV .Q12H [facility] Rx#:[id number] Azithromycin 250 mg In Dextrose 252.5 / 252.5 5% 250 ml @ 125 mls/hr IV DAILY [facility] Rx#:[id number] Heparin Sodium/Dextrose 25,000 137.333 / 142.333 119.167 / 119.167 units In 500 ml @ 1,100 UNITS/ HR 22 mls/hr IV .[id number] [facility] Rx #:[id number] Thiamine HCl 200 mg In Sodium 52 / 156 52 / 52 Chloride 0.9% 50 ml @ 208 mls/ hr IV Q8H [facility] Rx#:[id number] Output: Urine 1830 / 1830
[2020-12-11] MEDS: HEPARIN SODIUM/DEXTROSE 25,000 UNITS/500 ML BAG IV SCH (15:54)
[2020-12-11] MEDS: AMIODARONE 200 MG TAB PO SCH (16:46)
[2020-12-11] MEDS: GABAPENTIN 250 MG/5 ML 470 ML BTL PO SCH (21:31)
[2020-12-12] MEDS ORDERED: FUROSEMIDE INJ 20 MG/2 ML VIAL IV ONE (03:58)
[2020-12-12] MEDS: LEVALBUTEROL HCL 1.25 MG/3 ML NEB NEB PRN (05:09)
[2020-12-12] MEDS: THIAMINE HCL 200 MG in SODIUM CHLORIDE 0.9% 50 ML IV SCH (05:14)
[2020-12-12] MEDS: LEVOTHYROXINE SODIUM 50 MCG TABLET PO SCH (05:25)
[2020-12-12] MEDS: ALBUT/IPRATROP 3MG/0.5MG NEB 3 ML VIAL NEB SCH ×4 (07:33→19:31)
[2020-12-12 07:49] LABS: Partial Thromboplastin Ratio 2.3
[2020-12-12] MEDS: methylPREDNISolone 40 MG in SYRINGE 0 ML IV SCH (07:53)
[2020-12-12 08:07] LABS: Partial Thromboplastin Time 59.5 Seconds (21.0-31.0)
[2020-12-12] MEDS ORDERED: LORazepam 0.5 MG TAB PO PRN (08:21)
[2020-12-12 08:45] LABS: BUN Creatinine Ratio 17.1 (10-20); Creatinine Clr Calc Pharmacy 72.9 ml/min; Est GFR (African American) 106.9 ml/min; Est GFR (Non-African American) 92.3 ml/min; Magnesium 2.1 mg/dl (1.8-2.4); Potassium 3.6 mmol/L (3.5-5.1)
[2020-12-12] MEDS: NICOTINE 14 MG/24 HR PATCH TD SCH (08:50)
[2020-12-12] MEDS: UMECLIDINIUM/VILANTEROL 62.5/25MCG 7 PUFFS/INHALER INH SCH (08:51)
[2020-12-12] MEDS: FLUTICASONE FUROATE 100MCG 14 PUFFS/INHALER INH SCH (08:51)
[2020-12-12] MEDS: SERTRALINE HCL 100 MG TABLET PO SCH (08:52)
[2020-12-12] MEDS: AMIODARONE 200 MG TAB PO SCH ×3 (08:52→16:49)
[2020-12-12] MEDS: MONTELUKAST SODIUM 10 MG TABLET PO SCH (08:52)
[2020-12-12] MEDS: MULTIVITAMIN TAB PO SCH (08:52)
[2020-12-12] MEDS: VERAPAMIL HCL 120 MG TABCR PO SCH (08:53)
[2020-12-12] MEDS: lisinopril 10 MG TAB PO SCH (08:53)
[2020-12-12] MEDS: DOCUSATE SODIUM SYRUP 100 MG/10 ML UDC PO SCH (08:53)
[2020-12-12] MEDS: AZITHROMYCIN 250 MG in DEXTROSE 5% 250 ML IV SCH (08:53)
[2020-12-12 09:19] LABS: Phosphorus 2.6 mg/dl (2.5-4.9)
[2020-12-12] MEDS: THIAMINE HCL 100 MG TAB PO SCH (10:33)
[2020-12-12] MEDS: PANTOprazole 40 MG in SYRINGE 0 ML IV SCH (10:33)
[2020-12-12] MEDS: FOLIC ACID 1 MG TAB PO SCH (10:33)
--- NOTE | 2020-12-12 11:06 | Electrocardiogram Report ---
Test Reason : Blood Pressure : / mmHG Vent. Rate : 059 BPM Atrial Rate : 059 BPM P-R Int : 092 ms QRS Dur : 080 ms QT Int : 482 ms P-R-T Axes : 091 078 076 degrees QTc Int : 477 ms Sinus bradycardia Otherwise normal ECG When compared with ECG of 08-DEC-2020 18:10, Sinus rhythm has replaced Atrial fibrillation Vent. rate has decreased BY 77 BPM Confirmed by Helio Landeros ([id number]) on 12/12/2020 11:06:30 AM Referred By: REFERRED SELF Confirmed By:Ronnie Landeros
--- NOTE | 2020-12-12 11:54 | Psychiatric Consultation ---
Date of Consultation December 12, 2020 Impression / Recommendations Impression 70 yo man with multiple medical conditions including COPD on home oxygen, T2DM, HTN, alcohol use and tobbacco use who was admitted medically for COPD exacerbation. Psychiatry was consulted for recommendations regarding substance use and anxiety. 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 He is not deemed to require higher level or more intensive psychiatric treatment at this time and he declines referrals for additional outpatient resources but he was provided with substance use and local therapy resources should he desire these in the future. Per his report he does not meet criteria for alcohol use disorder but discussed option for naltrexone or additional substance use treatment in the future should he feel his use becomes problematic. There is concern he is minimizing his use since he required lorazepam during hospitalization for withdrawal which is unlikely with only 1 beer per day. He is motivated to quit smoking cigarettes which would help his COPD and in turn should improve his breathing and his mood. Discussed option of medications to treat tobacco use cravings as well as NRT with the patch and he is interested in both as an outpatient. Discussed both chantix and wellbutrin and he is most interested in wellbutrin since it could also help his mood. Discussed risks, benefits, alternatives, he has no hx of purging or seizures. 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 If not well tolerated could consider Chantix 0.5 mg BID instead. -C/w sertraline 100 mg qd -provided with outpt resources should he desire therapy or substance use support for alcohol in the future Risk Factors Assessment Male: Yes : Yes Do You Have Access To A Gun?: No Mental Health Diagnoses: Yes Substance Use Disorders: Yes Previous Attempt: No Hopelessness: No Psych History Identifying Data 70 yo man with multiple medical conditions including COPD on home oxygen, T2DM, HTN, alcohol use and tobbacco use who was admitted medically for COPD exacerbation. Psychiatry was consulted for recommendations regarding substance use and anxiety. Chief Complaint "I'm ok today". History of Present Illness Turner was admitted for COPD exacerbation and after admission there was concern for acute alcohol withdrawal necessitating use of lorazepam and subsequent hypoxia and ICU transfer. He reports intermittent depressive symptoms, (PHQ-9 score 7-most prominent for low energy and lack of interest, negative for SI), and anxiety which he attributes to how he is functioning in terms of being able to breathe and energy level. He feels that when he feels well physically his mood tends to be stable but that he feels worse when he's struggling to do ADLs because of his breathing. Currently he feels his mood is "much better because breathing is better". He's been on sertraline 100mg qd for many years and finds this helpful. He reports drinking one beer per night at 9pm and stopping at 10pm. He denies any concerns about his alcohol use currently nor feels it is interfering with his life or obligations. Attended residential treatment about 5 years ago and did AA in the past but found it unhelpful and that it increased cravings to drink. He declined any interventions or supports for his alcohol use. He reports long history of tobacco use since age 10. Currently smokes 1-1.5 pack per day. He has quit multiple times in the past, using NRT patches, with longest quit time of 1.5 years and last tried quitting about 3 years ago. He's motivated to quit again and wants to use the NRT again. He doesn't like the lozenges or gum. Also discussed the option for medication including Wellbutrin vs Chantix which he is very interested in trying. No history of seizures, psychotic symptoms, or binging/purging. No history of SI or past attempts. Past Psychiatric History Previous Psych History: hx alcohol use, hx depression/anxiety Outpatient Services: none Previous Psych Admissions: none Do You Have Access To A Gun?: No History of Previous Suicide Attempt: No Allergies Allergy/AdvReac Type Severity Reaction Status Date / Time turkey Allergy Unknown Verified 12/06/20 15:22 lorazepam [From Ativan] AdvReac Intermediate oversedation Verified 12/08/20 01:58 from 3 mg ativan Home Medications Medication Instructions Recorded Confirmed Type docusate sodium 100 mg capsule 100 mg PO QAM 01/28/18 12/06/20 History (Colace) gabapentin 300 mg capsule 300 mg PO HS 01/28/18 12/06/20 History fluticasone fur. 100 mcg-umeclid 1 inh INHALATION QAM 02/13/19 12/06/20 History 62.5 mcg-vilant 25 mcg inhalat.powder (Trelegy Ellipta) levothyroxine 50 mcg tablet 50 mcg PO DAILY 02/13/19 12/06/20 History sertraline 100 mg tablet 100 mg PO QAM 02/13/19 12/06/20 History verapamil 120 mg tablet,extended 120 mg PO QAM 02/13/19 12/06/20 History release albuterol sulfate 2.5 mg INHALATION Q4 PRN 06/16/20 12/06/20 History ipratropium 20 mcg-albuterol 100 1 puff INHALATION QID PRN 06/16/20 12/06/20 History mcg/actuation mist for inhalation (Combivent Respimat) azithromycin 250 mg tablet 250 mg PO UD 30 Days #30 tab 06/22/20 12/06/20 Rx (Zithromax) pantoprazole 40 mg tablet,delayed 40 mg PO DAILY #30 tab 06/28/20 12/06/20 Rx release (Protonix) atorvastatin 40 mg tablet 40 mg PO DAILY 12/06/20 12/06/20 History lisinopril 10 mg tablet 10 mg PO DAILY 12/06/20 12/06/20 History montelukast 10 mg tablet 10 mg PO DAILY 12/06/20 12/06/20 History Family History none Substance Abuse History see HPI Personal History Living Arrangements: Home Beliefs That Will Affect Care: None Patient History Medical History (Updated 12/12/20 @ 12:03 by Alexandra Ortega MD) Alcohol use Altered mental state Atrial fibrillation with rapid ventricular response BPH (benign prostatic hyperplasia) COPD (chronic obstructive pulmonary disease) Depression Depression due to physical illness Diabetes mellitus, type II Dyslipidemia Esophageal stenosis "s/p dilation June 2016" GERD (gastroesophageal reflux disease) HTN (hypertension) Hypothyroidism Lung nodule Mood disorder Paroxysmal atrial fibrillation Superficial thrombophlebitis "2009" TIA (transient ischemic attack) "1982" Surgical History S/P bronchoscopy Family History Other Diabetes Social History Smoking Status: Smoker, status unknown Tobacco Type: Cigarettes Cigarettes Per Day: 20; Second Hand Exposure: No; Hx Alcohol Use: Yes (per record) Alcohol type: beer Alcohol Intake Frequency Comment: 2 beers a day Hx Substance Use: No Preferred Language: Divehi Communication Ability: Impaired [employer] Station Attendant Required: No Beliefs That Will Affect Care: None marital status: Single Current Living Situation: Other Current Living Situation Comment: unknown-pt has caregivers that come tues/thrusday How many Children do You have: 0 Feels Safe at Home: Yes Assistive Devices: BiPap and Oxygen - Continuous Physical Exam Psychiatric: Orientation: alert, oriented x 3 and cooperative Apperance: appropriately dressed and appropriately groomed Eye Contact: good eye contact Motor Behavior: no abnormal motor movements Speech: normal rate/rhythm/volume of speech Affect: euthymic affect Mood: no depressed mood and no anxious mood Thought Process: goal directed thought process Thought Content: reality based without delusions Suicidal Thoughts: denies suicidal thoughts Homicidal Thoughts: denies homicidal thoughts Halluc inations: no auditory hallucinations and no visual hallucinations Cognition: recent memory grossly intact, remote memory grossly intact, attention grossly intact and language grossly intact Estimated Intelligence: consistent with education level Insight: good insight Judgement: good judgement Vital Signs (Past 24 Hours): Last Vital Signs Temp 36.9 C 12/12/20 07:58 Pulse 63 12/12/20 10:48 Resp 20 12/12/20 10:48 BP 128/69 12/12/20 08:27 Pulse Ox 90 12/12/20 10:48 Review of Systems All systems reviewed & are unremarkable except as noted in HPI & below Results & Data (PSY) Medications Administered Albuterol (Albut/Ipratrop 3mg/0.5mg Neb 3 Ml Vial) 3 ml NEB QIDR SAE Stop: 01/05/21 18:59 Last Admin: 12/12/20 10:47 Dose: 3 ml Documented by: [id number] Admin: 12/12/20 07:33 Dose: 3 ml Documented by: [id number] Admin: 12/11/20 19:07 Dose: 3 ml Documented by: [id number] Admin: 12/11/20 15:00 Dose: 3 ml Documented by: [id number] Admin: 12/11/20 11:23 Dose: 3 ml Documented by: [id number] Admin: 12/11/20 07:31 Dose: 3 ml Documented by: [id number] Admin: 12/10/20 18:58 Dose: 3 ml Documented by: [id number] Admin: 12/10/20 15:05 Dose: 3 ml Documented by: [id number] Admin: 12/10/20 12:58 Dose: 3 ml Documented by: [id number] Admin: 12/10/20 06:51 Dose: 3 ml Documented by: [id number] Admin: 12/09/20 19:14 Dose: 3 ml Documented by: [id number] Admin: 12/09/20 15:18 Dose: 3 ml Documented by: [id number] Admin: 12/09/20 10:54 Dose: 3 ml Documented by: [id number] Admin: 12/09/20 08:02 Dose: 3 ml Documented by: [id number] Admin: 12/09/20 03:25 Dose: 3 ml Documented by: [id number] Admin: 12/08/20 23:48 Dose: 3 ml Documented by: [id number] Admin: 12/08/20 19:50 Dose: Not Given Documented by: [id number] Admin: 12/08/20 14:50 Dose: 3 ml Documented by: [id number] Admin: 12/08/20 10:39 Dose: 3 ml Documented by: [id number] Admin: 12/08/20 07:27 Dose: 3 ml Documented by: [id number] Admin: 12/07/20 20:13 Dose: 3 ml Documented by: [id number] Admin: 12/07/20 14:44 Dose: 3 ml Documented by: [id number] Admin: 12/07/20 10:57 Dose: 3 ml Documented by: [id number] Admin: 12/07/20 07:32 Dose: 3 ml Documented by: [id number] Admin: 12/06/20 18:19 Dose: 3 ml Documented by: [id number] Amiodarone HCl (Amiodarone 200 Mg Tab) 200 mg PO TIDM SAE Stop: 01/10/21 16:59 Last Admin: 12/12/20 08:52 Dose: 200 mg Documented by: [id number] Admin: 12/11/20 16:46 Dose: 200 mg Documented by: [id number] Atorvastatin Calcium (Atorvastatin 40 Mg Tab) 40 mg PO DAILY SAE Stop: 01/06/21 08:59 Last Admin: 12/08/20 08:29 Dose: Not Given Documented by: [id number] Admin: 12/07/20 08:33 Dose: Not Given Documented by: [id number] Docusate Sodium (Docusate Sodium Syrup 100 Mg/10 Ml Udc) 100 mg PO QAM SAE Stop: 01/09/21 08:59 Last Admin: 12/12/20 08:53 Dose: 100 mg Documented by: [id number] Admin: 12/11/20 08:25 Dose: 100 mg Documented by: [id number] Admin: 12/10/20 08:23 Dose: 100 mg Documented by: [id number] Fluticasone Furoate (Fluticasone Furoate 100mcg 14 Puffs/Inhaler) 1 puffs INH DAILY SAE; Protocol Stop: 01/06/21 08:59 Last Admin: 12/12/20 08:51 Dose: 1 puffs Documented by: [id number] Admin: 12/11/20 08:26 Dose: 1 puffs Documented by: [id number] Admin: 12/10/20 08:23 Dose: Not Given Documented by: [id number] Admin: 12/09/20 08:39 Dose: Not Given Documented by: [id number] Admin: 12/08/20 08:29 Dose: Not Given Documented by: [id number] Admin: 12/07/20 08:50 Dose: Not Given Documented by: [id number] Folic Acid (Folic Acid 1 Mg Tab) 1 mg PO QAM SAE Stop: 01/11/21 08:59 Last Admin: 12/12/20 10:33 Dose: 1 mg Documented by: [id number] Gabapentin (Gabapentin 250 Mg/5 Ml 470 Ml Btl) 300 mg PO HS [facility] Stop: 01/08/21 20:59 Last Admin: 12/11/20 21:31 Dose: 300 mg Documented by: [id number] Admin: 12/10/20 20:23 Dose: 300 mg Documented by: [id number] Admin: 12/09/20 20:06 Dose: 300 mg Documented by: [id number] Pantoprazole Sodium 40 mg/ (Syringe) 10 mls @ 5 mls/min IV DAILY@1100 SAE Stop: 01/06/21 10:59 Last Admin: 12/12/20 10:33 Dose: 5 mls/min Documented by: [id number] Admin: 12/11/20 10:10 Dose: 5 mls/min Documented by: [id number] Admin: 12/10/20 11:51 Dose: 5 mls/min Documented by: [id number] Admin: 12/09/20 11:12 Dose: 5 mls/min Documented by: [id number] Admin: 12/08/20 12:41 Dose: 5 mls/min Documented by: [id number] Admin: 12/07/20 12:07 Dose: 5 mls/min Documented by: [id number] Methylprednisolone 40 mg/ (Syringe) 0.64 mls @ 1.5 mls/min IV DAILY SAE Stop: 01/08/21 08:59 Last Admin: 12/12/20 07:53 Dose: 1.5 mls/min Documented by: [id number] Admin: 12/11/20 08:25 Dose: 1.5 mls/min Documented by: [id number] Admin: 12/10/20 08:26 Dose: 1.5 mls/min Documented by: [id number] Admin: 12/09/20 09:29 Dose: 1.5 mls/min Documented by: [id number] Lorazepam (Ativan) 1 mg in 2 mls @ 2 mls/min IV UD PRN; Protocol PRN Reason: EtOH Withdrawl AWSS Score 6,7 Stop: 01/07/21 19:38 Last Admin: 12/08/20 21:44 Dose: 2 mls/min Documented by: [id number] Admin: 12/08/20 21:42 Dose: 2 mls/min Documented by: [id number] Heparin Sodium/Dextrose (Heparin Sodium/Dextrose) 25,000 units in 500 mls @ 22 mls/hr IV .[id number] SAE; Protocol Stop: 01/09/21 17:14 Last Titration: 12/12/20 08:08 Dose: 1,100 units/hr, 22 mls/hr Documented by: [id number] Cosigned by: [id number] Titration: 12/12/20 06:59 Dose: 1,100 units/hr, 22 mls/hr Documented by: [id number] Cosigned by: [id number] Admin: 12/11/20 15:54 Dose: 1,100 units/hr, 22 mls/hr Documented by: [id number] Cosigned by: [id number] Titration: 12/11/20 15:54 Dose: 1,100 units/hr, 22 mls/hr Documented by: [id number] Cosigned by: [id number] Titration: 12/11/20 07:16 Dose: 1,100 units/hr, 22 mls/hr Documented by: [id number] Cosigned by: [id number] Titration: 12/11/20 01:51 Dose: 1,100 units/hr, 22 mls/hr Documented by: [id number] Cosigned by: [id number] Titration: 12/10/20 18:59 Dose: 1,000 units/hr, 20 mls/hr Documented by: [id number] Cosigned by: [id number] Admin: 12/10/20 18:44 Dose: 1,000 units/hr, 20 mls/hr Documented by: [id number] Cosigned by: [id number] Azithromycin 250 mg/ Dextrose 252.5 mls @ 125 mls/hr IV DAILY SAE Stop: 12/14/20 08:59 Last Infusion: 12/12/20 11:04 Dose: 0 mls/hr Documented by: [id number] Admin: 12/12/20 08:53 Dose: 125 mls/hr Documented by: [id number] Infusion: 12/11/20 10:27 Dose: 0 mls/hr Documented by: [id number] Admin: 12/11/20 08:25 Dose: 125 mls/hr Documented by: [id number] Levalbuterol HCl (Levalbuterol Hcl 1.25 Mg/3 Ml Neb) 1.25 mg NEB Q4H PRN PRN Reason: Shortness Of Breath Or Wheezing Stop: 01/11/21 03:59 Last Admin: 12/12/20 05:09 Dose: 1.25 mg Documented by: [id number] Levothyroxine Sodium (Levothyroxine Sodium 50 Mcg Tablet) 50 mcg PO DAILYBB SAE Stop: 01/06/21 06:29 Last Admin: 12/12/20 05:25 Dose: 50 mcg Documented by: [id number] Admin: 12/11/20 05:38 Dose: 50 mcg Documented by: [id number] Admin: 12/10/20 05:49 Dose: 50 mcg Documented by: [id number] Admin: 12/09/20 06:34 Dose: Not Given Documented by: [id number] Admin: 12/08/20 07:34 Dose: Not Given Documented by: [id number] Admin: 12/07/20 05:11 Dose: 50 mcg Documented by: [id number] Lisinopril (Lisinopril 10 Mg Tab) 10 mg PO DAILY SAE Stop: 01/06/21 08:59 Last Admin: 12/12/20 08:53 Dose: 10 mg Documented by: [id number] Admin: 12/11/20 08:26 Dose: 10 mg Documented by: [id number] Admin: 12/10/20 08:53 Dose: Not Given Documented by: [id number] Admin: 12/09/20 09:58 Dose: 10 mg Documented by: [id number] Admin: 12/08/20 08:30 Dose: Not Given Documented by: [id number] Admin: 12/07/20 08:33 Dose: Not Given Documented by: [id number] Lorazepam (Lorazepam 0.5 Mg Tab) 0.5 mg PO Q4H PRN PRN Reason: Anxiety Stop: 01/11/21 08:20 Last Admin: 12/12/20 08:57 Dose: 0.5 mg Documented by: [id number] Miscellaneous (Remove Nicoderm Patch) 1 ea N/A DAILY@[id number] [facility] Stop: 01/07/21 08:58 Last Admin: 12/12/20 08:51 Dose: 1 ea Documented by: [id number] Admin: 12/11/20 08:27 Dose: 1 ea Documented by: [id number] Admin: 12/10/20 08:23 Dose: 1 ea Documented by: [id number] Admin: 12/09/20 07:36 Dose: 1 ea Documented by: [id number] Admin: 12/08/20 09:31 Dose: 1 ea Documented by: [id number] Montelukast Sodium (Montelukast Sodium 10 Mg Tablet) 10 mg PO DAILY [facility] Stop: 01/06/21 08:59 Last Admin: 12/12/20 08:52 Dose: 10 mg Documented by: [id number] Admin: 12/11/20 08:26 Dose: 10 mg Documented by: [id number] Admin: 12/10/20 08:24 Dose: 10 mg Documented by: [id number] Admin: 12/09/20 09:58 Dose: 10 mg Documented by: [id number] Admin: 12/08/20 08:30 Dose: Not Given Documented by: [id number] Admin: 12/07/20 08:33 Dose: Not Given Documented by: [id number] Multivitamins (Multivitamin Tab) 1 tab PO QAM [facility] Stop: 01/07/21 08:59 Last Admin: 12/12/20 08:52 Dose: 1 tab Documented by: [id number] Admin: 12/11/20 08:26 Dose: 1 tab Documented by: [id number] Admin: 12/10/20 08:24 Dose: 1 tab Documented by: [id number] Admin: 12/09/20 09:58 Dose: Not Given Documented by: [id number] Admin: 12/08/20 08:30 Dose: Not Given Documented by: [id number] Nicotine (Nicotine 14 Mg/24 Hr Patch) 14 mg TD QAM SAE Stop: 01/06/21 12:29 Last Admin: 12/12/20 08:50 Dose: 14 mg Documented by: [id number] Admin: 12/11/20 08:25 Dose: 14 mg Documented by: [id number] Admin: 12/10/20 08:24 Dose: 14 mg Documented by: [id number] Admin: 12/09/20 07:37 Dose: 14 mg Documented by: [id number] Admin: 12/08/20 09:31 Dose: 14 mg Documented by: [id number] Admin: 12/07/20 12:50 Dose: 14 mg Documented by: [id number] Sertraline HCl (Sertraline Hcl 100 Mg Tablet) 100 mg PO QA SAE Stop: 01/06/21 08:59 Last Admin: 12/12/20 08:52 Dose: 100 mg Documented by: [id number] Admin: 12/11/20 08:26 Dose: 100 mg Documented by: [id number] Admin: 12/10/20 08:24 Dose: 100 mg Documented by: [id number] Admin: 12/09/20 09:58 Dose: 100 mg Documented by: [id number] Admin: 12/08/20 08:31 Dose: Not Given Documented by: [id number] Admin: 12/07/20 08:33 Dose: Not Given Documented by: [id number] Thiamine HCl (Thiamine Hcl 100 Mg Tab) 100 mg PO QAM SAE Stop: 01/11/21 08:59 Last Admin: 12/12/20 10:33 Dose: 100 mg Documented by: [id number] Umeclidinium/Vilanterol (Umeclidinium/Vilanterol 62.5/25mcg 7 Puffs/Inhaler) 1 puffs INH DAILY SAE; Protocol Stop: 01/06/21 08:59 Last Admin: 12/12/20 08:51 Dose: 1 puffs Documented by: [id number] Admin: 12/11/20 08:26 Dose: 1 puffs Documented by: [id number] Admin: 12/10/20 08:24 Dose: Not Given Documented by: [id number] Admin: 12/09/20 09:58 Dose: Not Given Documented by: [id number] Admin: 12/08/20 08:31 Dose: Not Given Documented by: [id number] Admin: 12/07/20 08:51 Dose: Not Given Documented by: [id number] Verapamil HCl (Verapamil Hcl 120 Mg Tabcr) 120 mg PO QAM [facility] Stop: 01/06/21 08:59 Last Admin: 12/12/20 08:53 Dose: 120 mg Documented by: [id number] Admin: 12/11/20 10:38 Dose: 120 mg Documented by: [id number] Admin: 12/09/20 07:37 Dose: Not Given Documented by: [id number] Admin: 12/08/20 08:31 Dose: Not Given Documented by: [id number] Admin: 12/07/20 08:34 Dose: Not Given Documented by: [id number] Coding Level of Care Code 30196 Inpt Consult Level 2 Diagnoses Tobacco use Z72.0 Alcohol use Z72.89 Depression due to physical illness F06.31 Time Spent (min) 40
[2020-12-12] MEDS: HEPARIN SODIUM/DEXTROSE 25,000 UNITS/500 ML BAG IV SCH (13:34)
--- NOTE | 2020-12-12 13:56 | Fluoroscopy Report ---
FL video swallow HISTORY: r/o aspiration s/p extubation TECHNIQUE: Video fluoroscopic evaluation of swallowing was performed in the AP and lateral projection s by the speech pathology staff. The patient is fed nectar-thick and thin liquid barium, a barium coa bolivar wafer, and barium pudding. FLUOROSCOPY TIME: 1.9 minutes. A cine loop submitted. COMPARISON STUDY: None. FINDINGS: There is normal hyoid excursion and epiglottic deflection. No aspiration identified. A few episodes of penetration identified with the thin liquid barium. IMPRESSION: 1. No aspiration identified. 2. Please see the speech pathologist report for detailed findings and recommendations. ACT 112: Negative or not required by law. Electronically signed by: Joshua Guzman M.D. 12/12/2020 1:55 PM
--- NOTE | 2020-12-12 19:32 | Cardiology Progress Note ---
Date of Service December 12, 2020 Assessment & Plan (1) Atrial fibrillation with rapid ventricular response: Plan: Follow-up EKG performed 12/11/2020 revealed sinus bradycardia 59 bpm with stable QT interval 477 ms. Paroxysmal atrial fibrillation noted in the setting of acute on chronic hypoxemic and hypercapnic respiratory failure. Possible alcohol withdrawal. Remains in sinus. He is considered poor candidate for long-term anticoagulation, given his comorbidities, fall risk, and unreliability of him to take the medication appropriately. Continue heparin infusion in the short-term. Continue oral verapamil, amiodarone. Amiodarone of course not ideal from a pulmonary standpoint, but likely still our best option to avoid recurrent heart rates in the 160s. Admission and Anticipated Discharge Date Admission Date: December 06, 2020 Subjective Patient seen in cardiology follow-up. He has been resting comfortably, and has no complaints. Telemetry reveals ongoing sinus rhythm in the 70s. Pulse oximetry stable at 96% 3 L nasal cannula. Physical Exam Physical Exam: Temp Pulse Resp BP Pulse Ox 36.9 C 77 18 114/60 96 12/12/20 16:24 12/12/20 16:24 12/12/20 16:24 12/12/20 16:24 12/12/20 16:24 Constitutional: + ill appearing (Chronically ill in appearance, cachectic, without acute distress); no acute distress Respiratory: No rales or rhonchi Cardiovascular: RRR, no murmur, no edema Neurologic: Follows commands no focal deficits Results & Data ([facility]) Vital Signs (Past 12 Hours) Vital Signs Temp Pulse Pulse Resp BP BP Pulse Ox 12/12/20 16:24 36.9 C 77 18 114/60 96 12/12/20 15:02 67 12/12/20 14:36 76 26 H 94 12/12/20 11:40 36.7 C 71 22 111/75 93 12/12/20 10:48 63 20 90 12/12/20 08:27 61 22 128/69 96 12/12/20 08:17 65 12/12/20 08:06 91 12/12/20 08:01 91 12/12/20 07:58 36.9 C 81 24 99/61 L 79 L 12/12/20 07:55 73 L 12/12/20 07:35 65 18 92 12/12/20 07:34 65 22 92
[2020-12-12] MEDS: GABAPENTIN 250 MG/5 ML 470 ML BTL PO SCH (20:16)
[2020-12-13] MEDS: LEVOTHYROXINE SODIUM 50 MCG TABLET PO SCH (05:50)
[2020-12-13] MEDS: ALBUT/IPRATROP 3MG/0.5MG NEB 3 ML VIAL NEB SCH ×4 (06:09→19:27)
[2020-12-13 07:08] LABS: Hematocrit (blood only) 28.7 % (42-52); Hemoglobin 9.3 g/dL (14.0-18.0); Mean Corpuscular Hemoglobin 32.7 pg (25-34); Mean Corpuscular Hgb Conc 32.4 g/dL (32-36); Mean Corpuscular Volume 101.1 fL (80-100); Mean Platelet Volume 11.6 fL (7.4-10.4); Platelet Count 116 K/uL (130-400); RDW Coefficient of Variation 14.2 % (11.5-14.5); RDW Standard Deviation 52.4 fL (36.4-46.3); Red Blood Count 2.84 M/uL (4.7-6.1); White Blood Count 9.48 K/uL (4.8-10.8)
[2020-12-13 07:29] LABS: Partial Thromboplastin Ratio 2.6
--- NOTE | 2020-12-13 07:35 | Hospitalist Progress Note ---
Date of Service December 12, 2020 (late entry) Assessment & Plan (1) Acute on chronic respiratory failure with hypoxia and hypercapnia: (2) COPD exacerbation: Plan: This is a 70-year-old male with past medical history of COPD, chronic respiratory failure on 3-4 L nasal cannula O2, hypothyroidism, type 2 diabetes, paroxysmal atrial fibrillation, hypertension, ongoing tobacco use, BPH and other medical problems listed below who presents with progressive shortness of breath and cough for the past 2 weeks and was found to have COPD exacerbation. Follows with Marissa gonzales has not come to appointment since last January. ABG - pH 7.3, pco2 71, HCO3 34 on admission (however per ED note pH 7.2, pCO2 90s) Bipap started, continue to monitor respiratory function closely Given 6mg IV Dexamethasone, duoneb and Azithromycin in ED Continued Bipap overnight (12/07) AM tried NC desatted to low 80s Duonebs QIDR, IV Azithromycin, IV solumedrol 40mg Q8H, Trelegy inh Afebrile, no evidence of PNA on imaging Repeat ABG (12/07) AM seems improved pH 7.34 PCO2 70 However patient lethargic, does not answer appropriately stat ABG and chest x-ray ordered pulmonary medicine contacted Repeat CXR (12/07) IMPRESSION: 1. Severe emphysema. No consolidation. 2. Trace right pleural effusion. 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/combustion engineer notified Attempt to notify family as well, however case management currently searching for correct contact information Palliative medicine also consulted 12/09 Patient has been on BiPAP most of the admission, and barely responding or tremulous and not cooperative/likely withdrawing from alcohol CT head negative, ammonia normal, lactic acid normal, tox screen normal procalcitonin normal pH improving on BiPAP, PCO2 also improving on BiPAP, however still elevated Pulmonary medicine been following Had an episode at night when he was again unresponsive when he received Ativan and therefore this was stopped (as above) however yesterday evening (12/08 PM) Patient went into SVT/A. fib RVR, code purple was called and patient was then transferred to ICU overnight patient required intubation Currently patient is intubated and sedated, in care of ICU team 12/10 Patient extubated today, on nasal cannula He is awake alert, able to have simple conversation Currently has no complaints 12/11 Patient is currently on nasal cannula, awake alert able to have conversation Patient will be downgraded from ICU PT recommends SNF/LTAC/rehab Patient reports no close family or friends, lives alone 02/21 Pt remains on NC, on BiPAP overnight cont.amiodarone for Afib CM involved for placement Pt gets very tired and short of breath easily Palliative also consulted (3) Lung nodule: Plan: Outpatient CT chest wo con from 2018 showing spiculated left upper lobe lung nodule measuring up to 1.5 cm that was highly concerning for malignancy PET-CT or percutaneous biopsy recommended at that time. Patient not compliant with either Will obtain routine CT chest wo con CT chest: IMPRESSION: 1. Severe emphysema with bronchial wall thickening suggestive of bronchitis. Right basilar mucous plugging is again noted. 2. Trace pleural effusions. 3. Bilateral renal calculi. 4. Moderate acute versus subacute T8 and T9 compression deformities are new from 06/16/2020. No retropulsion or appreciable paravertebral edema. (4) HTN (hypertension): Plan: Normotensive. Continue lisinopril, verapamil if can take PO (5) Diabetes mellitus, type II: Plan: A1c 5.1 in April 2020, no longer on diabetic medications, carb consistent diet (6) Paroxysmal atrial fibrillation: Plan: Not on anticoagulation secondary to a history of bleeding and compliance issues. Continue verapamil if can take PO Afib w/ RVR as above at home verapamil, not able to take PO most of admission stay initially given beta john, now on amiodarone started IV heparin, which was continued Cardiology also consulted equipment operator intermodal yard anticoagulation questionable- may be higher risk than benefit (as above) (7) Alcohol dependence: Plan: History of rehab earlier this year. At risk protocol ordered Pt tremulous and restless, then episode of SVT/ Afib w/RVR - liklely secondary to etoh withdrawal (8) Hypothyroidism: Plan: Continue levothyroxine (9) BPH (benign prostatic hyperplasia): Plan: Bladder scan PRN (10) Mood disorder: Plan: Continue sertraline DVT Ppx: IV heparin - plan to switch to SQ Lovenox Code status: FULL PCP: Dr. Rizzo Dispo: ICU -> PCU PT recommends LTAC/SNF/ rehab Patient says that his brother Osmin lives in [place] and they are not close, did not speak for years. He also says he does not have any other family or close friends. Says that he lives alone. CM involved and palliative medicine also consulted Admission and Anticipated Discharge Date Admission Date: December 06, 2020 Subjective Patient seen in follow-up of acute on chronic respiratory failure, with hypoxia, hypercapnia - believed to be secondary to COPD exacerbation, encephalopathy, likely alcohol withdrawal Pt on BiPAP initially most of the time since admission, however barely responding or tremulous/ restless, likely withdrawing from alcohol Patient was code purple on 12/08 evening, as he went into SVT/A. fib with RVR, he was then transferred to ICU and overnight required intubation (12/10) patient extubated Currently on nasal cannula, he is awake alert and actually can hold a conversati on Currently has no complaints, denies any chest pain, fever, chills, abdominal pain, nausea vomiting PT eval recommends - SNF/LTAC/rehab Pt says he has no close family or friends Palliative medicine also consulted Review of Systems Review of Systems: All systems reviewed & are unremarkable except as noted in Subjective Physical Exam Physical Exam: General Appearance: thin male, disheveled, chronically ill appearing M, sitting up in bed, in no acute distress, on nasal cannula Head: normocephalic, atraumatic Eyes: normal inspection,PERRL, EOMI ENT: external ear and nose normal Neck: normal visual inspection Respiratory: + rhonchi, no wheezing Cardiovascular: regular rate, rhythm, no murmur noted, no LE edema Chest: normal inspection of chest Abdomen/GI: normal bowel sounds, soft, nontender Extremities/Musculoskeletal: no LE edema Neurologic: Awake and alert, able to have simple conversation. No facial asymmetry, speech slow but fluent, moves extremities. Skin: no rash, warm/dry Results & Data Results & Data ([facility]) Vital Signs (Past 12 Hours) Vital Signs Temp Pulse Pulse Resp BP Pulse Ox 12/13/20 06:13 55 L 16 98 12/13/20 06:10 55 L 20 96 12/13/20 05:36 62 12/13/20 04:21 36.4 C L 63 18 98/55 L 92 12/12/20 23:39 36.8 C 73 16 120/61 96 12/12/20 22:18 63 16 99 12/12/20 20:00 36.9 C 58 L 20 110/64 95 Medications Administered Current Inpatient Medications Acetaminophen (Acetaminophen 325 Mg Tab) 650 mg PO Q4H PRN PRN Reason: Pain or Fever Stop: 01/05/21 18:45 Albuterol (Albut/Ipratrop 3mg/0.5mg Neb 3 Ml Vial) 3 ml NEB QIDR SAE Stop: 01/05/21 18:59 Last Admin: 12/13/20 06:09 Dose: 3 ml Documented by: Amiodarone HCl (Amiodarone 200 Mg Tab) 200 mg PO TIDM [facility]E Stop: 01/10/21 16:59 Last Admin: 12/12/20 16:49 Dose: 200 mg Documented by: Atorvastatin Calcium (Atorvastatin 40 Mg Tab) 40 mg PO DAILY [facility] Stop: 01/06/21 08:59 Last Admin: 12/08/20 08:29 Dose: Not Given Documented by: Docusate Sodium (Docusate Sodium Syrup 100 Mg/10 Ml Udc) 100 mg PO QAM [facility] Stop: 01/09/21 08:59 Last Admin: 12/12/20 08:53 Dose: 100 mg Documented by: Fluticasone Furoate (Fluticasone Furoate 100mcg 14 Puffs/Inhaler) 1 puffs INH DAILY [facility]; Protocol Stop: 01/06/21 08:59 Last Admin: 12/12/20 08:51 Dose: 1 puffs Documented by: Folic Acid (Folic Acid 1 Mg Tab) 1 mg PO QAM [facility]E Stop: 01/11/21 08:59 Last Admin: 12/12/20 10:33 Dose: 1 mg Documented by: Gabapentin (Gabapentin 250 Mg/5 Ml 470 Ml Btl) 300 mg PO HS SAE Stop: 01/08/21 20:59 Last Admin: 12/12/20 20:16 Dose: 300 mg Documented by: Methylprednisolone 40 mg/ (Syringe) 0.64 mls @ 1.5 mls/min IV DAILY [facility]E Stop: 01/08/21 08:59 Last Admin: 12/12/20 07:53 Dose: 1.5 mls/min Documented by: Lorazepam (Ativan) 1 mg in 2 mls @ 2 mls/min IV UD PRN; Protocol PRN Reason: EtOH Withdrawl AWSS Score 6,7 Stop: 01/07/21 19:38 Last Admin: 12/08/20 21:44 Dose: 2 mls/min Documented by: Lorazepam (Ativan) 2 mg in 4 mls @ 4 mls/min IV UD PRN; Protocol PRN Reason: EtOH Withdrawl AWSS Score 8,9 Stop: 01/07/21 19:38 Lorazepam (Ativan) 3 mg in 6 mls @ 4 mls/min IV ONCE PRN; Protocol PRN Reason: EtOH Withdrawl AWSS Score >=10 Stop: 01/07/21 19:38 Heparin Sodium/Dextrose (Heparin Sodium/Dextrose) 25,000 units in 500 mls @ 22 mls/hr IV .[id number] [facility]; Protocol Stop: 01/09/21 17:14 Last Admin: 12/12/20 13:34 Dose: 1,100 units/hr, 22 mls/hr Documented by: Azithromycin 250 mg/ Dextrose 252.5 mls @ 125 mls/hr IV DAILY [facility] Stop: 12/14/20 08:59 Last Infusion: 12/12/20 11:04 Dose: Infused Documented by: Levalbuterol HCl (Levalbuterol Hcl 1.25 Mg/3 Ml Neb) 1.25 mg NEB Q4H PRN PRN Reason: Shortness Of Breath Or Wheezing Stop: 01/11/21 03:59 Last Admin: 12/12/20 05:09 Dose: 1.25 mg Documented by: Levothyroxine Sodium (Levothyroxine Sodium 50 Mcg Tablet) [facility] Stop: 01/06/21 06:29 Last Admin: 12/13/20 05:50 Dose: 50 mcg Documented by: Lisinopril (Lisinopril 10 Mg Tab) 10 mg PO DAILY [facility] Stop: 01/06/21 08:59 Last Admin: 12/12/20 08:53 Dose: 10 mg Documented by: Lorazepam (Lorazepam 0.5 Mg Tab) 0.5 mg PO Q4H PRN PRN Reason: Anxiety Stop: 01/11/21 08:20 Last Admin: 12/12/20 08:57 Dose: 0.5 mg Documented by: Miscellaneous (Remove Nicoderm Patch) 1 ea N/A DAILY@0859 [facility] Stop: 01/07/21 08:58 Last Admin: 12/12/20 08:51 Dose: 1 ea Documented by: Montelukast Sodium (Montelukast Sodium 10 Mg Tablet) 10 mg PO DAILY [facility] Stop: 01/06/21 08:59 Last Admin: 12/12/20 08:52 Dose: 10 mg Documented by: Multivitamins (Multivitamin Tab) 1 tab PO [facility] Stop: 01/07/21 08:59 Last Admin: 12/12/20 08:52 Dose: 1 tab Documented by: Nicotine (Nicotine 14 Mg/24 Hr Patch) 14 mg TD [facility] Stop: 01/06/21 12:29 Last Admin: 12/12/20 08:50 Dose: 14 mg Documented by: Ondansetron HCl (Ondansetron Inj 2 Mg/Ml 2 Ml Vial) 4 mg IV Q6H PRN PRN Reason: Nausea Stop: 01/05/21 18:45 Pantoprazole Sodium (Pantoprazole 40 Mg Tab) 40 mg PO 1100 [facility] Stop: 01/12/21 10:59 Polyethylene Glycol (Polyethylene (Miralax) 17 Gm Pack) 17 gm PO DAILY PRN PRN Reason: Constipation Stop: 01/05/21 18:45 Sertraline HCl (Sertraline Hcl 100 Mg Tablet) 100 mg PO [facility] Stop: 01/06/21 08:59 Last Admin: 12/12/20 08:52 Dose: 100 mg Documented by: Thiamine HCl (Thiamine Hcl 100 Mg Tab) 100 mg PO [facility] Stop: 01/11/21 08:59 Last Admin: 12/12/20 10:33 Dose: 100 mg Documented by: Umeclidinium/Vilanterol (Umeclidinium/Vilanterol 62.5/25mcg 7 Puffs/Inhaler) 1 puffs INH DAILY [facility]; Protocol Stop: 01/06/21 08:59 Last Admin: 12/12/20 08:51 Dose: 1 puffs Documented by: Verapamil HCl (Verapamil Hcl 120 Mg Tabcr) [facility] [place] [facility] Stop: 01/06/21 08:59 Last Admin: 12/12/20 08:53 Dose: 120 mg Documented by:
--- NOTE | 2020-12-13 07:36 | Hospitalist Progress Note ---
Date of Service December 13, 2020 Assessment & Plan (1) Acute on chronic respiratory failure with hypoxia and hypercapnia: (2) COPD exacerbation: Plan: This is a 70-year-old male with past medical history of COPD, chronic respiratory failure on 3-4 L nasal cannula O2, hypothyroidism, type 2 diabetes, paroxysmal atrial fibrillation, hypertension, ongoing tobacco use, BPH and other medical problems listed below who presents with progressive shortness of breath and cough for the past 2 weeks and was found to have COPD exacerbation. Follows with Marissa gonzales has not come to appointment since last January. ABG - pH 7.3, pco2 71, HCO3 34 on admission (however per ED note pH 7.2, pCO2 90s) Bipap started, continue to monitor respiratory function closely Given 6mg IV Dexamethasone, duoneb and Azithromycin in ED Continued Bipap overnight (12/07) AM tried NC desatted to low 80s Duonebs QIDR, IV Azithromycin, IV solumedrol 40mg Q8H, Trelegy inh Afebrile, no evidence of PNA on imaging Repeat ABG (12/07) AM seems improved pH 7.34 PCO2 70 However patient lethargic, does not answer appropriately stat ABG and chest x-ray ordered pulmonary medicine contacted Repeat CXR (12/07) IMPRESSION: 1. Severe emphysema. No consolidation. 2. Trace right pleural effusion. 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/assistant professor of mathematics notified Attempt to notify family as well, however case management currently searching for correct contact information Palliative medicine also consulted 12/09 Patient has been on BiPAP most of the admission, and barely responding or tremulous and not cooperative/likely withdrawing from alcohol CT head negative, ammonia normal, lactic acid normal, tox screen normal procalcitonin normal pH improving on BiPAP, PCO2 also improving on BiPAP, however still elevated Pulmonary medicine been following Had an episode at night when he was again unresponsive when he received Ativan and therefore this was stopped (as above) however yesterday evening (12/08 PM) Patient went into SVT/A. fib RVR, code purple was called and patient was then transferred to ICU overnight patient required intubation Currently patient is intubated and sedated, in care of ICU team 12/10 Patient extubated today, on nasal cannula He is awake alert, able to have simple conversation Currently has no complaints 12/11 Patient is currently on nasal cannula, awake alert able to have conversation Patient will be downgraded from ICU PT recommends SNF/LTAC/rehab Patient reports no close family or friends, lives alone 12/12 Pt remains on NC, on BiPAP overnight cont.amiodarone for Afib CM involved for placement Pt gets very tired and short of breath easily Palliative also consulted 12/13 Pt remains on NC and BiPAP nightly Pt gets very tired and short of breath easily CM involved for placement Palliative also consulted (3) Lung nodule: Plan: Outpatient CT chest wo con from 2018 showing spiculated left upper lobe lung nodule measuring up to 1.5 cm that was highly concerning for malignancy PET-CT or percutaneous biopsy recommended at that time. Patient not compliant with either Will obtain routine CT chest wo con CT chest: IMPRESSION: 1. Severe emphysema with bronchial wall thickening suggestive of bronchitis. Right basilar mucous plugging is again noted. 2. Trace pleural effusions. 3. Bilateral renal calculi. 4. Moderate acute versus subacute T8 and T9 compression deformities are new from 06/16/2020. No retropulsion or appreciable paravertebral edema. (4) HTN (hypertension): Plan: Normotensive. Continue lisinopril, verapamil if can take PO (5) Diabetes mellitus, type II: Plan: A1c 5.1 in April 2020, no longer on diabetic medications, carb consistent diet (6) Paroxysmal atrial fibrillation: Plan: Not on anticoagulation secondary to a history of bleeding and compliance issues. Continue verapamil if can take PO Afib w/ RVR as above at home verapamil, not able to take PO most of admission stay initially given beta john, now on amiodarone started IV heparin, which was continued Cardiology also consulted halfway anticoagulation questionable- may be higher risk than benefit (as above) (7) Alcohol dependence: Plan: History of rehab earlier this year. At risk protocol ordered Pt tremulous and restless, then episode of SVT/ Afib w/RVR - liklely secondary to etoh withdrawal (8) Hypothyroidism: Plan: Continue levothyroxine (9) BPH (benign prostatic hyperplasia): Plan: Bladder scan PRN (10) Mood disorder: Plan: Continue sertraline DVT Ppx: IV heparin - plan to switch to SQ Lovenox Code status: FULL PCP: Dr. Rizzo Dispo: PCU PT recommends LTAC/SNF/ rehab Patient says that his brother Osmin lives in [place] and they are not close, did not speak for years. He also says he does not have any other family or close friends. Says that he lives alone. CM involved and palliative medicine also consulted Admission and Anticipated Discharge Date Admission Date: December 06, 2020 Subjective Patient seen in follow-up of acute on chronic respiratory failure, with hypoxia, hypercapnia - believed to be secondary to COPD exacerbation, encephalopathy, likely alcohol withdrawal Pt on BiPAP initially most of the time since admission, however barely responding or tremulous/ restless, likely withdrawing from alcohol Patient was code purple on 12/08 evening, as he went into SVT/A. fib with RVR, he was then transferred to ICU and overnight required intubation (12/10) patient extubated Currently on nasal cannula, he is awake alert and actually can hold a conversation Currently has no complaints, denies any chest pain, fever, chills, abdominal pain, nausea vomiting He gets very tired and short of breath even with slightest exertion PT eval recommends - SNF/LTAC/rehab Pt says he has no close family or friends Palliative medicine also consulted Review of Systems Review of Systems: All systems reviewed & are unremarkable except as noted in Subjective Physical Exam Physical Exam: General Appearance: thin male, disheveled, chronically ill appearing M, sitting up in bed, in no acute distress, on nasal cannula Head: normocephalic, atraumatic Eyes: normal inspection,PERRL, EOMI ENT: external ear and nose normal Neck: normal visual inspection Respiratory: + rhonchi, no wheezing Cardiovascular: regular rate, rhythm, no murmur noted, no LE edema Chest: normal inspection of chest Abdomen/GI: normal bowel sounds, soft, nontender Extremities/Musculoskeletal: no LE edema Neurologic: Awake and alert, able to have simple conversation. No facial asymmetry, speech slow but fluent, moves extremities. Skin: no rash, warm/dry Results & Data Results & Data ([facility]) Vital Signs (Past 12 Hours) Vital Signs Temp Pulse Pulse Resp BP Pulse Ox 12/13/20 06:13 55 L 16 98 12/13/20 06:10 55 L 20 96 12/13/20 05:36 62 12/13/20 04:21 36.4 C L 63 18 98/55 L 92 12/12/20 23:39 36.8 C 73 16 120/61 96 12/12/20 22:18 63 16 99 12/12/20 20:00 36.9 C 58 L 20 110/64 95 Medications Administered Current Inpatient Medications Acetaminophen (Acetaminophen 325 Mg Tab) 650 mg PO Q4H PRN PRN Reason: Pain or Fever Stop: 01/05/21 18:45 Albuterol (Albut/Ipratrop 3mg/0.5mg Neb 3 Ml Vial) 3 ml NEB QIDR [facility]E Stop: 01/05/21 18:59 Last Admin: 12/13/20 06:09 Dose: 3 ml Documented by: Amiodarone HCl (Amiodarone 200 Mg Tab) 200 mg PO TIDM [facility]E Stop: 01/10/21 16:59 Last Admin: 12/12/20 16:49 Dose: 200 mg Documented by: Atorvastatin Calcium (Atorvastatin 40 Mg Tab) 40 mg PO DAILY [facility] Stop: 01/06/21 08:59 Last Admin: 12/08/20 08:29 Dose: Not Given Documented by: Docusate Sodium (Docusate Sodium Syrup 100 Mg/10 Ml Udc) 100 mg PO QAM [facility] Stop: 01/09/21 08:59 Last Admin: 12/12/20 08:53 Dose: 100 mg Documented by: Fluticasone Furoate (Fluticasone Furoate 100mcg 14 Puffs/Inhaler) 1 puffs INH DAILY [facility]; Protocol Stop: 01/06/21 08:59 Last Admin: 12/12/20 08:51 Dose: 1 puffs Documented by: Folic Acid (Folic Acid 1 Mg Tab) 1 mg PO QAM [facility]E Stop: 01/11/21 08:59 Last Admin: 12/12/20 10:33 Dose: 1 mg Documented by: Gabapentin (Gabapentin 250 Mg/5 Ml 470 Ml Btl) 300 mg PO HS [facility]E Stop: 01/08/21 20:59 Last Admin: 12/12/20 20:16 Dose: 300 mg Documented by: Methylprednisolone 40 mg/ (Syringe) 0.64 mls @ 1.5 mls/min IV DAILY [facility] Stop: 01/08/21 08:59 Last Admin: 12/12/20 07:53 Dose: 1.5 mls/min Documented by: Lorazepam (Ativan) 1 mg in 2 mls @ 2 mls/min IV UD PRN; Protocol PRN Reason: EtOH Withdrawl AWSS Score 6,7 Stop: 01/07/21 19:38 Last Admin: 12/08/20 21:44 Dose: 2 mls/min Documented by: Lorazepam (Ativan) 2 mg in 4 mls @ 4 mls/min IV UD PRN; Protocol PRN Reason: EtOH Withdrawl AWSS Score 8,9 Stop: 01/07/21 19:38 Lorazepam (Ativan) 3 mg in 6 mls @ 4 mls/min IV ONCE PRN; Protocol PRN Reason: EtOH Withdrawl AWSS Score >=10 Stop: 01/07/21 19:38 Heparin Sodium/Dextrose (Heparin Sodium/Dextrose) 25,000 units in 500 mls @ 22 mls/hr IV .[id number] [facility]; Protocol Stop: 01/09/21 17:14 Last Admin: 12/12/20 13:34 Dose: 1,100 units/hr, 22 mls/hr Documented by: Azithromycin 250 mg/ Dextrose 252.5 mls @ 125 mls/hr IV DAILY [facility] Stop: 12/14/20 08:59 Last Infusion: 12/12/20 11:04 Dose: Infused Documented by: Levalbuterol HCl (Levalbuterol Hcl 1.25 Mg/3 Ml Neb) 1.25 mg NEB Q4H PRN PRN Reason: Shortness Of Breath Or Wheezing Stop: 01/11/21 03:59 Last Admin: 12/12/20 05:09 Dose: 1.25 mg Documented by: Levothyroxine Sodium (Levothyroxine Sodium 50 Mcg Tablet) 50 mcg PO DAILYBB [facility] Stop: 01/06/21 06:29 Last Admin: 12/13/20 05:50 Dose: 50 mcg Documented by: Lisinopril (Lisinopril 10 Mg Tab) 10 mg PO DAILY [facility] Stop: 01/06/21 08:59 Last Admin: 12/12/20 08:53 Dose: 10 mg Documented by: Lorazepam (Lorazepam 0.5 Mg Tab) 0.5 mg PO Q4H PRN PRN Reason: Anxiety Stop: 01/11/21 08:20 Last Admin: 12/12/20 08:57 Dose: 0.5 mg Documented by: Miscellaneous (Remove Nicoderm Patch) 1 ea N/A DAILY@0859 [facility] Stop: 01/07/21 08:58 Last Admin: 12/12/20 08:51 Dose: 1 ea Documented by: Montelukast Sodium (Montelukast Sodium 10 Mg Tablet) 10 mg PO DAILY [facility] Stop: 01/06/21 08:59 Last Admin: 12/12/20 08:52 Dose: 10 mg Documented by: Multivitamins (Multivitamin Tab) [facility] Stop: 01/07/21 08:59 Last Admin: 12/12/20 08:52 Dose: 1 tab Documented by: Nicotine (Nicotine 14 Mg/24 Hr Patch) 14 mg TD [facility] Stop: 01/06/21 12:29 Last Admin: 12/12/20 08:50 Dose: 14 mg Documented by: Ondansetron HCl (Ondansetron Inj 2 Mg/Ml 2 Ml Vial) 4 mg IV Q6H PRN PRN Reason: Nausea Stop: 01/05/21 18:45 Pantoprazole Sodium (Pantoprazole 40 Mg Tab) 40 mg PO 1100 [facility] Stop: 01/12/21 10:59 Polyethylene Glycol (Polyethylene (Miralax) 17 Gm Pack) 17 gm PO DAILY PRN PRN Reason: Constipation Stop: 01/05/21 18:45 Sertraline HCl (Sertraline Hcl 100 Mg Tablet) 100 mg PO [facility] Stop: 01/06/21 08:59 Last Admin: 12/12/20 08:52 Dose: 100 mg Documented by: Thiamine HCl (Thiamine Hcl 100 Mg Tab) 100 mg PO QAM [facility] Stop: 01/11/21 08:59 Last Admin: 12/12/20 10:33 Dose: 100 mg Documented by: Umeclidinium/Vilanterol (Umeclidinium/Vilanterol 62.5/25mcg 7 Puffs/Inhaler) 1 puffs INH DAILY [facility]; Protocol Stop: 01/06/21 08:59 Last Admin: 12/12/20 08:51 Dose: 1 puffs Documented by: Verapamil HCl (Verapamil Hcl 120 Mg Tabcr) 120 [facility] Stop: 01/06/21 08:59 Last Admin: 12/12/20 08:53 Dose: 120 mg Documented by:
[2020-12-13 07:49] LABS: Partial Thromboplastin Time 68.9 Seconds (21.0-31.0)
[2020-12-13 08:28] LABS: BUN Creatinine Ratio 18.6 (10-20); Calcium 8.5 mg/dl (8.5-10.1); Creatinine Clr Calc Pharmacy 66.7 ml/min; Est GFR (African American) 105.3 ml/min; Est GFR (Non-African American) 90.9 ml/min; Magnesium 2.1 mg/dl (1.8-2.4); Potassium 3.5 mmol/L (3.5-5.1)
[2020-12-13] MEDS: FLUTICASONE FUROATE 100MCG 14 PUFFS/INHALER INH SCH (08:35)
[2020-12-13] MEDS: UMECLIDINIUM/VILANTEROL 62.5/25MCG 7 PUFFS/INHALER INH SCH (08:36)
[2020-12-13] MEDS: VERAPAMIL HCL 120 MG TABCR PO SCH (08:36)
[2020-12-13] MEDS: THIAMINE HCL 100 MG TAB PO SCH (08:36)
[2020-12-13] MEDS: MULTIVITAMIN TAB PO SCH (08:36)
[2020-12-13] MEDS: methylPREDNISolone 40 MG in SYRINGE 0 ML IV SCH (08:37)
[2020-12-13] MEDS: PANTOprazole 40 MG TAB PO SCH (08:37)
[2020-12-13] MEDS: AMIODARONE 200 MG TAB PO SCH ×3 (08:37→17:27)
[2020-12-13] MEDS: SERTRALINE HCL 100 MG TABLET PO SCH (08:37)
[2020-12-13] MEDS: FOLIC ACID 1 MG TAB PO SCH (08:38)
[2020-12-13] MEDS: MONTELUKAST SODIUM 10 MG TABLET PO SCH (08:38)
[2020-12-13] MEDS: lisinopril 10 MG TAB PO SCH (08:38)
[2020-12-13] MEDS: NICOTINE 14 MG/24 HR PATCH TD SCH (08:39)
[2020-12-13] MEDS: AZITHROMYCIN 250 MG in DEXTROSE 5% 250 ML IV SCH (08:41)
[2020-12-13 08:43] LABS: Phosphorus 3.2 mg/dl (2.5-4.9)
[2020-12-13] MEDS: DOCUSATE SODIUM SYRUP 100 MG/10 ML UDC PO SCH (11:01)
--- NOTE | 2020-12-13 12:03 | Palliative Care Consultation ---
Date of Consultation December 13, 2020 Assessment & Plan (1) Palliative care encounter: I talked with Mr. Villareal about his wishes for care. On review of his chart, he met with palliative care during a hospitalization in February of 2018. At that time he indicated that he would want to be a full code if it were likely that he could recover. Per the note, a POLST form was completed at that time but there is not a POLST form scanned into the EMR. He does not recall completing the form. He acknowledges that he has bad lungs and says that he would consider intubation for short period if he could get back to his prior level of function. We reviewed statistical likelihood that he would have successful resuscitation to return to his prior level of function, he felt that if his heart stopped or his breathing stopped, he would prefer to naturally. He would want medical care, including hospitalization for treatable problems but would want to consider the risks and benefits of treatments at the time. I asked him if he had someone who would make decisions for him if he were unable to do so. He tells me that he has not spoken to his or children in 20 years. He has a neighbor but has not spoken to him in 3 years. He does have a former caregiver named Jennifer (he is unsure of her last name) who he would trust to make decisions for him. Her phone number is [phone]. He has not spoken with her about this and declined my offer to call her and discuss it. Based on his wishes, we completed a POLST form for DNR, limited interventions, trial of antibiotics and fluids with no terminal operator nutrition or hydration. Form is signed and on the chart. I encouraged him to talk with Jennifer about his wishes. (2) COPD exacerbation: (3) Alcohol dependence: (4) Lung nodule: (5) Diabetes mellitus, type II: History of Present Illness Reason for Consultation: goals of care Requesting Physician: Dr. Garrison Attending Physician: Adiel Garrison MD History of Present Illness 70 yo gentleman with COPD and chronic hypoxic respiratory failure. He is oxygen dependent at 3-4 L baseline. He also has diabetes and atrial fibrillation and has been having rapid ventricular response during his hospitalization which is now controlled. He is also being monitored for a 1.5cm CHANTELL pulmonary nodule suspicious for malignancy. He lives alone in an apartment and has assistance for a few hours daily for housekeeping and meals. He reports that he was able t o manage his ADLs at home prior to admission. He does have a history of alcohol abuse. He describes himself as a loner and does not have support other than the caregivers during the day. Allergies Allergy/AdvReac Type Severity Reaction Status Date / Time turkey Allergy Unknown Verified 12/06/20 15:22 lorazepam [From Ativan] AdvReac Intermediate oversedation Verified 12/08/20 01:58 from 3 mg ativan Home Medications Medication Instructions Recorded Confirmed Type docusate sodium 100 mg capsule 100 mg PO QAM 01/28/18 12/06/20 History (Colace) gabapentin 300 mg capsule 300 mg PO HS 01/28/18 12/06/20 History fluticasone fur. 100 mcg-umeclid 1 inh INHALATION QAM 02/13/19 12/06/20 History 62.5 mcg-vilant 25 mcg inhalat.powder (Trelegy Ellipta) levothyroxine 50 mcg tablet 50 mcg PO DAILY 02/13/19 12/06/20 History sertraline 100 mg tablet 100 mg PO QAM 02/13/19 12/06/20 History verapamil 120 mg tablet,extended 120 mg PO QAM 02/13/19 12/06/20 History release albuterol sulfate 2.5 mg INHALATION Q4 PRN 06/16/20 12/06/20 History ipratropium 20 mcg-albuterol 100 1 puff INHALATION QID PRN 06/16/20 12/06/20 History mcg/actuation mist for inhalation (Combivent Respimat) azithromycin 250 mg tablet 250 mg PO UD 30 Days #30 tab 06/22/20 12/06/20 Rx (Zithromax) pantoprazole 40 mg tablet,delayed 40 mg PO DAILY #30 tab 06/28/20 12/06/20 Rx release (Protonix) atorvastatin 40 mg tablet 40 mg PO DAILY 12/06/20 12/06/20 History lisinopril 10 mg tablet 10 mg PO DAILY 12/06/20 12/06/20 History montelukast 10 mg tablet 10 mg PO DAILY 12/06/20 12/06/20 History Patient History Medical History Alcohol use Altered mental state Atrial fibrillation with rapid ventricular response BPH (benign prostatic hyperplasia) COPD (chronic obstructive pulmonary disease) Depression Depression due to physical illness Diabetes mellitus, type II Dyslipidemia Esophageal stenosis "s/p dilation June 2016" GERD (gastroesophageal reflux disease) HTN (hypertension) Hypothyroidism Lung nodule Mood disorder Paroxysmal atrial fibrillation Superficial thrombophlebitis "2009" TIA (transient ischemic attack) "1982" Surgical History S/P bronchoscopy Family History Other Diabetes Social History Smoking Status: Smoker, status unknown Tobacco Type: Cigarettes Cigarettes Per Day: 20; Second Hand Exposure: No; Hx Alcohol Use: Yes (per record) Alcohol type: beer Alcohol Intake Frequency Comment: 2 beers a day Hx Substance Use: No Preferred Language: Wolof Communication Ability: Impaired 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 Beliefs That Will Affect Care: None marital status: Single Current Living Situation: Other Current Living Situation Comment: unknown-pt has caregivers that come tues/thrusday How many Children do You have: 0 Feels Safe at Home: Yes Assistive Devices: Oxygen - Continuous Review of Systems Review of Systems: [place] Symptom Assessment Scale Pain 0/3 Dyspnea 1/3 Anxiety 0/3 Fatigue 2/3 Nausea 0/3 Drowsiness 0/3 Palliative Performance Score 40% Physical Exam Constitutional: no acute distress Respiratory: normal respiratory effort; no labored breathing (at rest) Cardiovascular: Rate/Rhythm: + irregularly irregular Extremities: no edema Musculoskeletal: Extremities: + muscle hypertrophy Skin: warm and dry Neurologic: no focal motor deficits Speech / Cognition: normal cognition Results & Data ([facility]) Vital Signs (Past 12 Hours) Vital Signs Temp Pulse Pulse Resp BP Pulse Ox 12/13/20 10:00 90 18 86 L 12/13/20 07:37 97.7 F 70 23 125/70 96 12/13/20 06:13 55 L 16 98 12/13/20 06:10 55 L 20 96 12/13/20 05:36 62 12/13/20 04:21 97.5 F L 63 18 98/55 L 92 PG Care Time/CCT Total # of Minutes Spent Total Time Spent: 65 Total Time Spent with Patient: Total time spent is greater than 50% in coordination of care (as documented) at patient's floor/unit and/or counseling patient: goals of care, code status, surrogate decision maker, POLST completion Coding Level of Care Code 56202 Initial Inpt Care Lvl 2 Diagnoses Palliative care encounter Z51.5 COPD exacerbation J44.1 Alcohol dependence F10.20 Lung nodule R91.1 Diabetes mellitus, type II E11.9
[2020-12-13] MEDS: HEPARIN SODIUM/DEXTROSE 25,000 UNITS/500 ML BAG IV SCH ×3 (12:48→19:06)
[2020-12-13] MEDS: LEVALBUTEROL HCL 1.25 MG/3 ML NEB NEB PRN (12:58)
[2020-12-13 14:30] LABS: Partial Thromboplastin Ratio 1.8
[2020-12-13 15:10] LABS: Partial Thromboplastin Time 48.1 Seconds (21.0-31.0)
--- NOTE | 2020-12-13 18:53 | Cardiology Progress Note ---
Date of Service December 13, 2020 Assessment & Plan (1) Atrial fibrillation with rapid ventricular response: Plan: Follow-up EKG performed 12/11/2020 revealed sinus bradycardia 59 bpm with stable QT interval 477 ms. Paroxysmal atrial fibrillation noted in the setting of acute on chronic hypoxemic and hypercapnic respiratory failure. Possible alcohol withdrawal. Remains in sinus. He is considered poor candidate for long-term anticoagulation, given his comorbidities, fall risk, and unreliability of him to take the medication appropriately. Continue oral verapamil, amiodarone. Amiodarone of course not ideal from a pulmonary standpoint, but likely still our best option to avoid recurrent heart rates in the 160s. Pt is felt to be a poor candidate for anticoagulation custodial due to difficulty with adherence and bleeding risk. DC IV heparin. Start SQ lovenox for DVT prophylaxis tomorrow. Repeat EKG in am to follow up QTc given use of Azithromycin, Zoloft, amiodarone. Admission and Anticipated Discharge Date Admission Date: December 06, 2020 Subjective Pt seen in follow up of atrial fibrillation. Remains in SR. Remains on 2 L/m nasal cannula oxygen with pulse ox of 95%. Physical Exam Physical Exam: Temp Pulse Resp BP Pulse Ox 37.6 C H 65 18 105/60 95 12/13/20 14:44 12/13/20 15:07 12/13/20 15:07 12/13/20 14:44 12/13/20 15:07 Constitutional: + cachectic; no acute distress Respiratory: no cough, not tachypneic and no audible wheezes Auscultation: + wheezes; no crackles and no rales Cardiovascular: RRR, no murmur, no edema Extremities: no edema Neurologic: PERRL, EOMI, accommodation nl, no face palsy, no dysarthria Results & Data ([facility]) Vital Signs (Past 12 Hours) Vital Signs Temp Pulse Resp BP Pulse Ox 12/13/20 15:07 65 18 95 12/13/20 14:44 37.6 C H 74 18 105/60 93 12/13/20 12:59 79 20 98 12/13/20 11:57 37.6 C H 67 18 123/69 12/13/20 10:00 90 18 86 L 12/13/20 07:37 36.5 C 70 23 125/70 96 Laboratory Results Coagulation 12/13/20 12/13/20 Range/Units 06:56 13:55 APTT 68.9 H* 48.1 H* (21.0-31.0) Seconds CBC 12/13/20 Range/Units 06:56 WBC 9.48 (4.8-10.8) K/uL RBC 2.84 L (4.7-6.1) M/uL Hgb 9.3 L (14.0-18.0) g/dL Hct 28.7 L (42-52) % Plt Count 116 L (130-400) K/uL Comprehensive Metabolic Panel 12/13/20 Range/Units 06:56 Sodium 141 (136-145) mmol/L Potassium 3.5 (3.5-5.1) mmol/L Chloride 100 (98-107) mmol/L Carbon Dioxide 38 H (21-32) mmol/L BUN 15 (7-18) mg/dl Creatinine 0.82 (0.6-1.4) mg/dl Glucose 113 H (70-99) mg/dl Calcium 8.5 (8.5-10.1) mg/dl Intake and Output 12/13/20 12/13/20 12/13/20 06:59 14:59 22:59 Intake Total 1472.500 / 1529.550 57.05 / 1529.550 Output Total 450 / 450 Balance 1022.500 / 1079.550 57.05 / 1079.550 Intake: IV 752.500 / 809.550 57.05 / 809.550 Azithromycin 250 mg In Dextrose 252.5 / 252.5 5% 250 ml @ 125 mls/hr IV DAILY [facility]E Rx#:[id number] Heparin Sodium/Dextrose 25,000 500.000 / 557.050 57.05 / 557.050 units In 500 ml @ 1,050 UNITS/ HR 21 mls/hr IV .[id number] [facility]E Rx #:[id number] Oral 720 / 720 Output: Urine 450 / 450 Other: Weight 54.7 kg 54.7 kg Weight Measurement Method Built in [facility] Patient Weight 12/14/20 06:59 Weight 54.7 kg
[2020-12-13] MEDS: GABAPENTIN 250 MG/5 ML 470 ML BTL PO SCH (20:46)
[2020-12-14] MEDS: LEVALBUTEROL HCL 1.25 MG/3 ML NEB NEB PRN (00:19)
[2020-12-14] MEDS ORDERED: FUROSEMIDE INJ 20 MG/2 ML VIAL IV ONE (01:15)
[2020-12-14] MEDS: LEVOTHYROXINE SODIUM 50 MCG TABLET PO SCH (05:53)
[2020-12-14] MEDS: ALBUT/IPRATROP 3MG/0.5MG NEB 3 ML VIAL NEB SCH ×4 (06:23→19:19)
[2020-12-14 06:57] LABS: BUN Creatinine Ratio 13.8 (10-20); Calcium 8.6 mg/dl (8.5-10.1); Creatinine Clr Calc Pharmacy 57.4 ml/min; Est GFR (African American) 94.9 ml/min; Est GFR (Non-African American) 81.9 ml/min; Potassium 3.4 mmol/L (3.5-5.1)
[2020-12-14 07:09] LABS: Phosphorus 2.5 mg/dl (2.5-4.9)
[2020-12-14] MEDS: AMIODARONE 200 MG TAB PO SCH ×3 (07:52→16:52)
[2020-12-14] MEDS: VERAPAMIL HCL 120 MG TABCR PO SCH (08:23)
[2020-12-14] MEDS: MULTIVITAMIN TAB PO SCH (08:23)
[2020-12-14] MEDS: PANTOprazole 40 MG TAB PO SCH (08:23)
[2020-12-14] MEDS: THIAMINE HCL 100 MG TAB PO SCH (08:23)
[2020-12-14] MEDS: NICOTINE 14 MG/24 HR PATCH TD SCH (08:24)
[2020-12-14] MEDS: SERTRALINE HCL 100 MG TABLET PO SCH (08:24)
[2020-12-14] MEDS: FLUTICASONE FUROATE 100MCG 14 PUFFS/INHALER INH SCH (08:24)
[2020-12-14] MEDS: methylPREDNISolone 40 MG in SYRINGE 0 ML IV SCH (08:24)
[2020-12-14] MEDS: MONTELUKAST SODIUM 10 MG TABLET PO SCH (08:24)
[2020-12-14] MEDS: FOLIC ACID 1 MG TAB PO SCH (08:24)
[2020-12-14] MEDS: DOXYCYCLINE HYCLATE 100 MG CAP PO SCH ×2 (08:24→20:42)
[2020-12-14] MEDS: lisinopril 10 MG TAB PO SCH (08:24)
[2020-12-14] MEDS: ENOXAPARIN INJ 40 MG/0.4 ML SYR SQ SCH (08:25)
[2020-12-14] MEDS: DOCUSATE SODIUM SYRUP 100 MG/10 ML UDC PO SCH (08:25)
[2020-12-14] MEDS: UMECLIDINIUM/VILANTEROL 62.5/25MCG 7 PUFFS/INHALER INH SCH (08:26)
[2020-12-14] MEDS ORDERED: POTASSIUM CHLORIDE CRTAB 20 MEQ TABCR PO STA (09:27)
--- NOTE | 2020-12-14 18:23 | Communication Note ---
Date of Service: December 14, 2020 Telemetry reviewed remains in sinus rhythm in the range of 60-70 bpm. Patient interviewed, comfortable. EKG performed today 12/14/2020: At 1621, sinus rhythm at 60 bpm, minimal nonspecific repolarization changes, corrected QT interval stable at 4 to 50 ms Continue verapamil, amiodarone.
--- NOTE | 2020-12-14 19:18 | Hospitalist Progress Note ---
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 Is being managed for the following: #. Acute on chronic respiratory failure with hypoxia and hypercapnia: #. COPD exacerbation: History of sleep disorder as well as COPD with chronic hypoxia and hypercapnia Follows with Marissa gonzales, has not come to appointment since last January. No evidence of pneumonia on imaging. On 12/08 evening, patient went into SVT/A. fib RVR--> code purple was called --> patient transferred to ICU overnight and required intubation--> extubated nasal cannula. Pulm consulted: Continue BiPAP during hospital stay and discharge home on Trelegy per Marissa's recommendation. c/w steroids and zithro for COPD exacerbation. Palliative on board: Patient reports no close family or friends, lives alone. Patient is DNR, limited interventions, trial of antibiotics and fluids with no long-term nutrition or hydration. Patient currently awake alert and oriented. Continue with BiPAP overnight and as needed nasal cannula during the day. Patient will need placement upon discharge. #. Lung nodule: Outpatient CT chest wo con from 2018 showing spiculated left upper lobe lung nodule measuring up to 1.5 cm that was highly concerning for malignancy PET-CT or percutaneous biopsy recommended at that time. Patient not compliant with either Routine CT obtained while inpatient showed severe emphysema with bronchial wall thickening suggestive of bronchitis and right basilar mucous plugging. Trace pleural effusion. T8 and T9 compression deformities new from 06/16/2020. #. HTN (hypertension): Normotensive. Continue lisinopril, verapamil #. Diabetes mellitus, type II: A1c 5.1 in April 2020, no longer on diabetic medications, carb consistent diet #. Paroxysmal atrial fibrillation: Not on anticoagulation secondary to a history of bleeding and compliance issues. Cardiology on board: Continue verapamil and amiodarone. Poor candidate for long-term anticoagulation given his comorbidities/fall risk/compliance issue. Heparin drip DC'd and transitioned to prophylactic Lovenox dose. #. Alcohol dependence: History of rehab earlier this year. At risk protocol ordered Pt tremulous and restless, then episode of SVT/ Afib w/RVR - liklely secondary to etoh withdrawal Patient currently stable at bedside. #. Hypothyroidism: Continue levothyroxine #. BPH (benign prostatic hyperplasia): Bladder scan PRN #. Mood disorder: Continue sertraline DVT Ppx: lovenox sq Code status: DNR/DNI PCP: Dr. Rizzo Dispo: PCU PT recommends LTAC/SNF/ rehab. CM working on [facility]. Patient says that his brother Osmin lives in [place] and they are not close, did not speak for years. He also says he does not have any other family or close friends. Says that he lives alone. Admission and Anticipated Discharge Date Admission Date: December 06, 2020 Subjective Patient was lying semiupright in bed, on 3.5 L nasal cannula oxygen, no acute events overnight, NAD. Patient is eating okay. Patient has not had bowel movement since last 5 days. Will increase his bowel regimen, follow-up. Patient denies headache/dizziness/increased shortness of breath/palpitation/other review of symptoms. Physical Exam Physical Exam: GENERAL: Alert and oriented x3. NAD, on 3.5L HEENT: No pallor, no icterus. Pupils equal, round and reactive to light. Oral mucosa moist. NECK: No JVD, no neck masses. HEART: S1 and S2 heard. Regular rate and rhythm. No murmur, no gallop. RESPIRATORY SYSTEM: Normal AP diameter. No accessory muscle use. No wheezing, no crackles. Decreased Breath sound, no wheezing. ABDOMEN: Soft, bowel sounds present, nontender, no distention. CENTRAL NERVOUS SYSTEM: Alert and oriented x3. No facial droop. Speech is clear. Obeys simple commands. Moves extremities. EXTREMITIES: No edema, no erythema seen. UC w/ yellow urine collection. Results & Data Results & Data ([facility]) Vital Signs (Past 12 Hours) Vital Signs Temp Pulse Pulse Pulse Resp BP BP 12/14/20 15:48 64 20 12/14/20 15:09 37.2 C 64 18 103/59 L 12/14/20 15:01 67 12/14/20 13:31 12/14/20 11:33 103 H 20 12/14/20 11:24 37.0 C 65 20 116/69 12/14/20 08:00 69 12/14/20 07:23 36.8 C 70 20 123/66 Pulse Ox 12/14/20 15:48 90 12/14/20 15:09 99 12/14/20 15:01 12/14/20 13:31 94 12/14/20 11:33 98 12/14/20 11:24 100 12/14/20 08:00 12/14/20 07:23 99
[2020-12-14] MEDS: GABAPENTIN 250 MG/5 ML 470 ML BTL PO SCH (20:42)
[2020-12-14] MEDS: DOCUSATE SODIUM 100 MG CAP PO SCH (20:42)
[2020-12-15] MEDS: ALBUT/IPRATROP 3MG/0.5MG NEB 3 ML VIAL NEB SCH ×5 (02:38→19:06)
[2020-12-15] MEDS: LEVOTHYROXINE SODIUM 50 MCG TABLET PO SCH (06:20)
[2020-12-15 06:26] LABS: Hematocrit (blood only) 28.5 % (42-52); Hemoglobin 9.1 g/dL (14.0-18.0); Mean Corpuscular Hgb Conc 31.9 g/dL (32-36); Mean Corpuscular Volume 103.3 fL (80-100); Mean Platelet Volume 11.6 fL (7.4-10.4); Platelet Count 155 K/uL (130-400); RDW Coefficient of Variation 14.2 % (11.5-14.5); RDW Standard Deviation 53.5 fL (36.4-46.3); Red Blood Count 2.76 M/uL (4.7-6.1); White Blood Count 9.03 K/uL (4.8-10.8)
[2020-12-15 06:54] LABS: BUN Creatinine Ratio 20.2 (10-20); Calcium 8.6 mg/dl (8.5-10.1); Creatinine Clr Calc Pharmacy 53.2 ml/min; Est GFR (African American) 87.1 ml/min; Est GFR (Non-African American) 75.2 ml/min; Potassium 4.7 mmol/L (3.5-5.1)
[2020-12-15] MEDS: AMIODARONE 200 MG TAB PO SCH ×3 (08:18→17:06)
[2020-12-15] MEDS: DOCUSATE SODIUM 100 MG CAP PO SCH ×2 (08:20→20:19)
[2020-12-15] MEDS: ENOXAPARIN INJ 40 MG/0.4 ML SYR SQ SCH (08:20)
[2020-12-15] MEDS: DOXYCYCLINE HYCLATE 100 MG CAP PO SCH ×2 (08:20→20:20)
[2020-12-15] MEDS: FLUTICASONE FUROATE 100MCG 14 PUFFS/INHALER INH SCH (08:21)
[2020-12-15] MEDS: UMECLIDINIUM/VILANTEROL 62.5/25MCG 7 PUFFS/INHALER INH SCH (08:21)
[2020-12-15] MEDS: lisinopril 10 MG TAB PO SCH (08:22)
[2020-12-15] MEDS: FOLIC ACID 1 MG TAB PO SCH (08:22)
[2020-12-15] MEDS: MONTELUKAST SODIUM 10 MG TABLET PO SCH (08:23)
[2020-12-15] MEDS: MULTIVITAMIN TAB PO SCH (08:23)
[2020-12-15] MEDS: POLYETHYLENE (MIRALAX) 17 GM PACK PO SCH (08:23)
[2020-12-15] MEDS: methylPREDNISolone 40 MG in SYRINGE 0 ML IV SCH (08:23)
[2020-12-15] MEDS: NICOTINE 14 MG/24 HR PATCH TD SCH (08:23)
[2020-12-15] MEDS: VERAPAMIL HCL 120 MG TABCR PO SCH (08:24)
[2020-12-15] MEDS: THIAMINE HCL 100 MG TAB PO SCH (08:24)
[2020-12-15] MEDS: SERTRALINE HCL 100 MG TABLET PO SCH (08:24)
--- NOTE | 2020-12-15 10:46 | Electrocardiogram Report ---
Test Reason : Blood Pressure : / mmHG Vent. Rate : 062 BPM Atrial Rate : 062 BPM P-R Int : 094 ms QRS Dur : 088 ms QT Int : 444 ms P-R-T Axes : 034 077 076 degrees QTc Int : 450 ms Sinus rhythm Nonspecific ST abnormality Abnormal ECG When compared with ECG of 11-DEC-2020 16:03, No significant change was found Confirmed by Helio Landeros ([id number]) on 12/15/2020 10:46:30 AM Referred By: REFERRED SELF Confirmed By:Ronnie Landeros
[2020-12-15] MEDS: PANTOprazole 40 MG TAB PO SCH (13:54)
--- NOTE | 2020-12-15 14:59 | Communication Note ---
Date of Service: December 15, 2020 Remains in sinus rhythm on telemetry. Continue present treatment.
--- NOTE | 2020-12-15 17:26 | Hospitalist Progress Note ---
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 Is being managed for the following: #. Acute on chronic respiratory failure with hypoxia and hypercapnia: #. COPD exacerbation: History of sleep disorder as well as COPD with chronic hypoxia and hypercapnia Follows with Marissa gonzales, has not come to appointment since last January. No evidence of pneumonia on imaging. On 12/08 evening, patient went into SVT/A. fib RVR--> code purple was called --> patient transferred to ICU overnight and required intubation--> extubated nasal cannula. Pulm consulted: Continue BiPAP during hospital stay and discharge home on Trelegy per Marissa's recommendation. c/w steroids and zithro for COPD exacerbation. Palliative on board: Patient reports no close family or friends, lives alone. Patient is DNR, limited interventions, trial of antibiotics and fluids with no long-term nutrition or hydration. Patient currently awake alert and oriented. Continue with BiPAP overnight and as needed nasal cannula during the day. Patient will need placement upon discharge. #. Lung nodule: Outpatient CT chest wo con from 2018 showing spiculated left upper lobe lung nodule measuring up to 1.5 cm that was highly concerning for malignancy PET-CT or percutaneous biopsy recommended at that time. Patient not compliant with either Routine CT obtained while inpatient showed severe emphysema with bronchial wall thickening suggestive of bronchitis and right basilar mucous plugging. Trace pleural effusion. T8 and T9 compression deformities new from 06/16/2020. #. HTN (hypertension): Normotensive. Continue lisinopril, verapamil #. Diabetes mellitus, type II: A1c 5.1 in April 2020, no longer on diabetic medications, carb consistent diet #. Paroxysmal atrial fibrillation: Not on anticoagulation secondary to a history of bleeding and compliance issues. Cardiology on board: Continue verapamil and amiodarone. Poor candidate for long-term anticoagulation given his comorbidities/fall risk/compliance issue. Heparin drip DC'd and transitioned to prophylactic Lovenox dose. #. Alcohol dependence: History of rehab earlier this year. At risk protocol ordered Patient currently stable at bedside. #. Hypothyroidism: Continue levothyroxine #. BPH (benign prostatic hyperplasia): Bladder scan PRN #. Mood disorder: Continue sertraline DVT Ppx: lovenox sq Code status: DNR/DNI PCP: Dr. Rizzo Dispo: PCU PT recommends LTAC/SNF/ rehab. CM working on placement. Patient says that his brother Osmin lives in [place] and they are not close, did not speak for years. He also says he does not have any other family or close friends. Says that he lives alone. Patient stable for discharge when bed available. Admission and Anticipated Discharge Date Admission Date: December 06, 2020 Subjective Patient was lying semiupright in bed, on 2 L nasal cannula oxygen, no acute events overnight per Pt, NAD. Per RN, patient was more confused overnight and is weak. Patient is eating okay. Patient has not had bowel movement since last 5 days. Will increase his bowel regimen, follow-up. Patient denies headache/dizziness/increased shortness of breath/palpitation/other review of symptoms. Physical Exam Physical Exam: GENERAL: Alert and oriented x3. NAD, on 2L HEENT: No pallor, no icterus. Pupils equal, round and reactive to light. Oral mucosa moist. NECK: No JVD, no neck masses. HEART: S1 and S2 heard. Regular rate and rhythm. No murmur, no gallop. RESPIRATORY SYSTEM: Normal AP diameter. No accessory muscle use. No wheezing, no crackles. Decreased Breath sound, no wheezing. ABDOMEN: Soft, bowel sounds present, nontender, no distention. CENTRAL NERVOUS SYSTEM: Alert and oriented x3. No facial droop. Speech is clear. Obeys simple commands. Moves extremities. EXTREMITIES: No edema, no erythema seen. UC w/ yellow urine collection. Results & Data Results & Data ([facility]) Vital Signs (Past 12 Hours) Vital Signs Temp Pulse Resp BP Pulse Ox 12/15/20 15:03 78 20 99 12/15/20 15:01 36.7 C 70 19 92/52 L 99 12/15/20 11:38 36.3 C L 79 18 110/51 L 92 12/15/20 10:27 74 20 95 12/15/20 07:01 36.6 C 71 17 149/71 H 98 12/15/20 05:33 18 97
[2020-12-15] MEDS: GABAPENTIN 250 MG/5 ML 470 ML BTL PO SCH (20:28)
[2020-12-16] MEDS: ALBUT/IPRATROP 3MG/0.5MG NEB 3 ML VIAL NEB SCH ×4 (05:59→18:09)
[2020-12-16] MEDS: LEVOTHYROXINE SODIUM 50 MCG TABLET PO SCH (06:16)
[2020-12-16 08:16] LABS: Hemoglobin 8.8 g/dL (14.0-18.0); Mean Corpuscular Hemoglobin 33.1 pg (25-34); Mean Corpuscular Hgb Conc 32.6 g/dL (32-36); Mean Corpuscular Volume 101.5 fL (80-100); Mean Platelet Volume 11.4 fL (7.4-10.4); Platelet Count 165 K/uL (130-400); RDW Coefficient of Variation 14.2 % (11.5-14.5); RDW Standard Deviation 53.2 fL (36.4-46.3); Red Blood Count 2.66 M/uL (4.7-6.1); White Blood Count 7.89 K/uL (4.8-10.8)
[2020-12-16] MEDS: AMIODARONE 200 MG TAB PO SCH ×3 (09:01→17:29)
[2020-12-16] MEDS: DOXYCYCLINE HYCLATE 100 MG CAP PO SCH ×2 (09:02→20:37)
[2020-12-16] MEDS: DOCUSATE SODIUM 100 MG CAP PO SCH ×2 (09:02→20:37)
[2020-12-16] MEDS: ENOXAPARIN INJ 40 MG/0.4 ML SYR SQ SCH (09:03)
[2020-12-16] MEDS: FLUTICASONE FUROATE 100MCG 14 PUFFS/INHALER INH SCH (09:03)
[2020-12-16] MEDS: THIAMINE HCL 100 MG TAB PO SCH (09:04)
[2020-12-16] MEDS: FOLIC ACID 1 MG TAB PO SCH (09:04)
[2020-12-16] MEDS: POLYETHYLENE (MIRALAX) 17 GM PACK PO SCH (09:05)
[2020-12-16] MEDS: SERTRALINE HCL 100 MG TABLET PO SCH (09:05)
[2020-12-16] MEDS: NICOTINE 14 MG/24 HR PATCH TD SCH (09:05)
[2020-12-16] MEDS: UMECLIDINIUM/VILANTEROL 62.5/25MCG 7 PUFFS/INHALER INH SCH (09:05)
[2020-12-16] MEDS: MULTIVITAMIN TAB PO SCH (09:06)
[2020-12-16] MEDS: methylPREDNISolone 40 MG in SYRINGE 0 ML IV SCH (09:06)
[2020-12-16] MEDS: MONTELUKAST SODIUM 10 MG TABLET PO SCH (09:06)
[2020-12-16] MEDS: VERAPAMIL HCL 120 MG TABCR PO SCH (09:07)
[2020-12-16] MEDS: lisinopril 10 MG TAB PO SCH (09:07)
[2020-12-16 10:23] LABS: Ferritin 171.7 ng/ml (8-388)
[2020-12-16] MEDS: PANTOprazole 40 MG TAB PO SCH (11:49)
[2020-12-16] MEDS ORDERED: LACTULOSE SYRUP 20 GM/30 ML UDC PO ONE (18:35)
--- NOTE | 2020-12-16 18:38 | Hospitalist Progress Note ---
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 Is being managed for the following: #. Acute on chronic respiratory failure with hypoxia and hypercapnia: #. COPD exacerbation: History of sleep disorder as well as COPD with chronic hypoxia and hypercapnia Follows with Marissa gnozales, has not come to appointment since last January. No evidence of pneumonia on imaging. On 12/08 evening, patient went into SVT/A. fib RVR--> code purple was called --> patient transferred to ICU overnight and required intubation--> extubated nasal cannula. Pulm consulted: Continue BiPAP during hospital stay and discharge home on Trelegy per Marissa's recommendation. c/w steroids and zithro for COPD exacerbation. Patient using BiPAP setting of 12/ while in hospital per RN. Patient will need to follow-up with his cafe cook as an outpatient for ongoing management of his COPD and use of noninvasive ventilation. Palliative on board: Patient reports no close family or friends, lives alone. Patient is DNR, limited interventions, trial of antibiotics and fluids with no long-term nutrition or hydration. Patient currently awake alert and oriented. Continue with BiPAP overnight and as needed nasal cannula during the day. Patient will need placement upon discharge. #. Lung nodule: Outpatient CT chest wo con from 2018 showing spiculated left upper lobe lung nodule measuring up to 1.5 cm that was highly concerning for malignancy PET-CT or percutaneous biopsy recommended at that time. Patient not compliant with either Routine CT obtained while inpatient showed severe emphysema with bronchial wall thickening suggestive of bronchitis and right basilar mucous plugging. Trace pleural effusion. T8 and T9 compression deformities new from 06/16/2020. #. HTN (hypertension): Normotensive. Continue lisinopril, verapamil #. Diabetes mellitus, type II: A1c 5.1 in April 2020, no longer on diabetic medications, carb consistent diet #. Paroxysmal atrial fibrillation: Not on anticoagulation secondary to a history of bleeding and compliance issues. Cardiology on board: Continue verapamil and amiodarone. Poor candidate for long-term anticoagulation given his comorbidities/fall risk/compliance issue. Heparin drip DC'd and transitioned to prophylactic Lovenox dose. #. Alcohol dependence: History of rehab earlier this year. At risk protocol ordered Patient currently stable at bedside. #. Hypothyroidism: Continue levothyroxine #. BPH (benign prostatic hyperplasia): Bladder scan PRN #. Mood disorder: Continue sertraline #. Other: Patient has not moved his bowels for few days, will give 1 dose of lactulose. Follow. DVT Ppx: lovenox sq Code status: DNR/DNI PCP: Dr. Rizzo Dispo: PCU PT recommends LTAC/SNF/ rehab. CM working on placement. Patient says that his brother Osmin lives in [place] and they are not close, did not speak for years. He also says he does not have any other family or close friends. Says that he lives alone. Patient stable for discharge when bed available. Admission and Anticipated Discharge Date Admission Date: December 06, 2020 Subjective Patient was lying in bed, on 3.5 L nasal cannula oxygen, no acute events overnight per Pt, NAD. Patient is eating okay. Patient has not had bowel movement since last 6 days. Will increase his bowel regimen, follow-up. Patient denies headache/dizziness/increased shortness of breath/palpitation/other review of symptoms. Physical Exam Physical Exam: GENERAL: Alert and oriented x3. NAD, on 3.5L HEENT: No pallor, no icterus. Pupils equal, round and reactive to light. Oral mucosa moist. NECK: No JVD, no neck masses. HEART: S1 and S2 heard. Regular rate and rhythm. No murmur, no gallop. RESPIRATORY SYSTEM: Normal AP diameter. No accessory muscle use. No wheezing, no crackles. Decreased Breath sound, no wheezing. ABDOMEN: Soft, bowel sounds present, nontender, no distention. CENTRAL NERVOUS SYSTEM: Alert and oriented x3. No facial droop. Speech is clear. Obeys simple commands. Moves extremities. EXTREMITIES: No edema, no erythema seen. UC w/ yellow urine collection. Results & Data Results & Data ([facility]) Vital Signs (Past 12 Hours) Vital Signs Temp Pulse Resp BP BP Pulse Ox 12/16/20 18:09 62 18 96 12/16/20 16:01 36.7 C 66 16 91/42 L 97 12/16/20 14:37 74 20 97 12/16/20 12:23 37.0 C 68 18 102/57 L 98 12/16/20 07:15 36.7 C 73 18 97/57 L 99
[2020-12-16] MEDS: GABAPENTIN 250 MG/5 ML 470 ML BTL PO SCH (22:05)
[2020-12-17] MEDS: LEVOTHYROXINE SODIUM 50 MCG TABLET PO SCH (06:15)
[2020-12-17 06:40] LABS: Hematocrit (blood only) 27.8 % (42-52); Hemoglobin 9.2 g/dL (14.0-18.0); Mean Corpuscular Hemoglobin 33.8 pg (25-34); Mean Corpuscular Hgb Conc 33.1 g/dL (32-36); Mean Corpuscular Volume 102.2 fL (80-100); Mean Platelet Volume 11.2 fL (7.4-10.4); Platelet Count 194 K/uL (130-400); RDW Coefficient of Variation 14.1 % (11.5-14.5); RDW Standard Deviation 52.6 fL (36.4-46.3); Red Blood Count 2.72 M/uL (4.7-6.1); White Blood Count 8.16 K/uL (4.8-10.8)
[2020-12-17] MEDS: ALBUT/IPRATROP 3MG/0.5MG NEB 3 ML VIAL NEB SCH ×4 (07:14→19:19)
[2020-12-17 07:21] LABS: Calcium 8.6 mg/dl (8.5-10.1); Creatinine Clr Calc Pharmacy 54.4 ml/min; Est GFR (African American) 89.2 ml/min; Magnesium 1.9 mg/dl (1.8-2.4); Potassium 4.2 mmol/L (3.5-5.1)
[2020-12-17] MEDS: SERTRALINE HCL 100 MG TABLET PO SCH (08:26)
[2020-12-17] MEDS: MULTIVITAMIN TAB PO SCH (08:26)
[2020-12-17] MEDS: THIAMINE HCL 100 MG TAB PO SCH (08:26)
[2020-12-17] MEDS: ENOXAPARIN INJ 40 MG/0.4 ML SYR SQ SCH (08:27)
[2020-12-17] MEDS: lisinopril 10 MG TAB PO SCH (08:27)
[2020-12-17] MEDS: VERAPAMIL HCL 120 MG TABCR PO SCH (08:27)
[2020-12-17] MEDS: DOXYCYCLINE HYCLATE 100 MG CAP PO SCH ×2 (08:28→20:26)
[2020-12-17] MEDS: NICOTINE 14 MG/24 HR PATCH TD SCH (08:29)
[2020-12-17] MEDS: DOCUSATE SODIUM 100 MG CAP PO SCH ×2 (08:29→20:25)
[2020-12-17] MEDS: MONTELUKAST SODIUM 10 MG TABLET PO SCH (08:30)
[2020-12-17] MEDS: AMIODARONE 200 MG TAB PO SCH ×3 (08:30→16:40)
[2020-12-17] MEDS: FOLIC ACID 1 MG TAB PO SCH (08:30)
[2020-12-17] MEDS: UMECLIDINIUM/VILANTEROL 62.5/25MCG 7 PUFFS/INHALER INH SCH (08:31)
[2020-12-17] MEDS: FLUTICASONE FUROATE 100MCG 14 PUFFS/INHALER INH SCH (08:31)
[2020-12-17] MEDS: methylPREDNISolone 40 MG in SYRINGE 0 ML IV SCH (08:31)
[2020-12-17] MEDS: POLYETHYLENE (MIRALAX) 17 GM PACK PO SCH (08:32)
[2020-12-17] MEDS: MAGNESIUM OXIDE 400 MG TAB PO SCH ×2 (09:16→20:26)
[2020-12-17] MEDS: PANTOprazole 40 MG TAB PO SCH (11:21)
[2020-12-17] MEDS ORDERED: LACTULOSE SYRUP 20 GM/30 ML UDC PO ONE (11:30)
--- NOTE | 2020-12-17 11:57 | XRay Report ---
KUB HISTORY: Acute generalized abdominal pain with constipation constipation COMPARISON: CT abdomen and pelvis 05/24/2020 FINDINGS: Nonobstructive bowel gas pattern. Moderate to extensive fecal retention. Enteric contrast i s noted within the large bowel from recent video swallow study obtained on 12/12/2020. Renal shadows are obscured by bowel gas. Bilateral nephrolithiasis redemonstrated with calculi measuring up to 5 mm on the right and 3 mm on the left. No ureteral calculi identified No pneumoperitoneum or pneumatosis .. Right hip total joint arthroplasty. Degenerative changes of the spine and left hip. No fracture. IMPRESSION: 1. Nonobstructive bowel gas pattern. 2. Moderate to extensive fecal retention. 3. Bilateral nephrolithiasis redemonstrated. ACT 112: Negative or not required by law. The above report was generated using voice recognition software. It may contain grammatical, syntax o r spelling errors. Electronically signed by: Leodan Wills M.D. 12/17/2020 11:56 AM
[2020-12-17] MEDS ORDERED: MINERAL OIL ENEMA 133 ML BTL PR ONE (12:45)
--- NOTE | 2020-12-17 14:07 | Hospitalist Progress Note ---
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 Is being managed for the following: #. Acute on chronic respiratory failure with hypoxia and hypercapnia: #. COPD exacerbation: History of sleep disorder as well as COPD with chronic hypoxia and hypercapnia Follows with Marissa gonzales, has not come to appointment since last January. No evidence of pneumonia on imaging. On 12/08 evening, patient went into SVT/A. fib RVR--> code purple was called --> patient transferred to ICU overnight and required intubation--> extubated nasal cannula. Pulm consulted: Continue BiPAP during hospital stay and discharge home on Trelegy per Marissa's recommendation. c/w steroids and zithro for COPD exacerbation. Patient using BiPAP setting of 12/5 w/ RR 14 w/ his baseline O2 while in hospit al per RN/Respiratory therapist. Patient will need to follow-up with his subcontract manager as an outpatient for ongoing management of his COPD and use of noninvasive ventilation. Palliative on board: Patient reports no close family or friends, lives alone. Patient is DNR, limited interventions, trial of antibiotics and fluids with no long-term nutrition or hydration. Patient currently awake alert and oriented. Continue with BiPAP overnight and as needed nasal cannula during the day. Patient will need placement upon discharge. #. Constipation Patient reports no reported bowel since last 7 days, normal bowel sounds on exam, patient denies belly pain Patient diet has been minimal, recently improved, x-ray KUB moderate to extensive fecal retention with no obstructive pattern Will try lactulose and enema #. Lung nodule: Outpatient CT chest wo con from 2018 showing spiculated left upper lobe lung nodule measuring up to 1.5 cm that was highly concerning for malignancy PET-CT or percutaneous biopsy recommended at that time. Patient not compliant with either Routine CT obtained while inpatient showed severe emphysema with bronchial wall thickening suggestive of bronchitis and right basilar mucous plugging. Trace pleural effusion. T8 and T9 compression deformities new from 06/16/2020. #. HTN (hypertension): Normotensive. Continue lisinopril, verapamil #. Diabetes mellitus, type II: A1c 5.1 in April 2020, no longer on diabetic medications, carb consistent diet #. Paroxysmal atrial fibrillation: Not on anticoagulation secondary to a history of bleeding and compliance issues. Cardiology on board: Continue verapamil and amiodarone. Poor candidate for long-term anticoagulation given his comorbidities/fall risk/compliance issue. Heparin drip DC'd and transitioned to prophylactic Lovenox dose. #. Alcohol dependence: History of rehab earlier this year. At risk protocol ordered Patient currently stable at bedside. #. Hypothyroidism: Continue levothyroxine #. BPH (benign prostatic hyperplasia): Bladder scan PRN #. Mood disorder: Continue sertraline #. Other: Patient has not moved his bowels for few days, will give 1 dose of lactulose. Follow. DVT Ppx: lovenox sq Code status: DNR/DNI PCP: Dr. Rizzo Dispo: PCU PT recommends LTAC/SNF/ rehab. CM working on placement. Patient says that his brother Osmin lives in [place] and they are not close, did not speak for years. He also says he does not have any other family or close friends. Says that he lives alone. Patient stable for discharge when bed available after patient moves bowel . Admission and Anticipated Discharge Date Admission Date: December 06, 2020 Subjective Patient was lying in bed, on 2 L nasal cannula oxygen, no acute events overnight per RNJERARDO. Patient is eating okay. Patient has not had bowel movement since last 7 days. Will give trial of lactulose and enema, follow-up of x-ray KUB. Normal bowel sounds on exam and patient does not complain of belly pain. Patient denies headache/dizziness/increased shortness of breath/palpitation/other review of symptoms. Physical Exam Physical Exam: GENERAL: Alert and oriented x3. NAD, on 2L HEENT: No pallor, no icterus. Pupils equal, round and reactive to light. Oral mucosa moist. NECK: No JVD, no neck masses. HEART: S1 and S2 heard. Regular rate and rhythm. No murmur, no gallop. RESPIRATORY SYSTEM: Normal AP diameter. No accessory muscle use. No wheezing, no crackles. Decreased Breath sound, no wheezing. ABDOMEN: Soft, bowel sounds present, nontender, no distention. CENTRAL NERVOUS SYSTEM: Alert and oriented x3. No facial droop. Speech is clear. Obeys simple commands. Moves extremities. EXTREMITIES: No edema, no erythema seen. UC w/ yellow urine collection. Results & Data Results & Data ([facility]) Vital Signs (Past 12 Hours) Vital Signs Temp Pulse Resp BP Pulse Ox 12/17/20 11:01 36.5 C 70 20 98/59 L 99 12/17/20 10:39 74 20 95 12/17/20 07:15 68 20 98 12/17/20 06:12 36.9 C 65 14 128/62 100 12/17/20 03:51 36.7 C 67 17 106/57 L 97
[2020-12-17] MEDS: GABAPENTIN 250 MG/5 ML 470 ML BTL PO SCH (20:26)
[2020-12-18] MEDS: LEVOTHYROXINE SODIUM 50 MCG TABLET PO SCH (05:29)
[2020-12-18] MEDS: ALBUT/IPRATROP 3MG/0.5MG NEB 3 ML VIAL NEB SCH ×5 (06:02→18:19)
[2020-12-18] MEDS: AMIODARONE 200 MG TAB PO SCH ×3 (08:02→16:14)
[2020-12-18] MEDS: MONTELUKAST SODIUM 10 MG TABLET PO SCH (08:03)
[2020-12-18] MEDS: predniSONE 20 MG TAB PO SCH (08:03)
[2020-12-18] MEDS: THIAMINE HCL 100 MG TAB PO SCH (08:03)
[2020-12-18] MEDS: MULTIVITAMIN TAB PO SCH (08:03)
[2020-12-18] MEDS: MAGNESIUM OXIDE 400 MG TAB PO SCH ×2 (08:04→20:55)
[2020-12-18] MEDS: VERAPAMIL HCL 120 MG TABCR PO SCH (08:04)
[2020-12-18] MEDS: DOXYCYCLINE HYCLATE 100 MG CAP PO SCH ×2 (08:04→20:55)
[2020-12-18] MEDS: DOCUSATE SODIUM 100 MG CAP PO SCH ×2 (08:04→20:55)
[2020-12-18] MEDS: FOLIC ACID 1 MG TAB PO SCH (08:04)
[2020-12-18] MEDS: SERTRALINE HCL 100 MG TABLET PO SCH (08:04)
[2020-12-18] MEDS: FLUTICASONE FUROATE 100MCG 14 PUFFS/INHALER INH SCH (08:05)
[2020-12-18] MEDS: NICOTINE 14 MG/24 HR PATCH TD SCH (08:05)
[2020-12-18] MEDS: UMECLIDINIUM/VILANTEROL 62.5/25MCG 7 PUFFS/INHALER INH SCH (08:05)
[2020-12-18] MEDS: ENOXAPARIN INJ 40 MG/0.4 ML SYR SQ SCH (08:06)
[2020-12-18] MEDS: lisinopril 10 MG TAB PO SCH (08:07)
[2020-12-18] MEDS: PANTOprazole 40 MG TAB PO SCH (11:21)
[2020-12-18] MEDS ORDERED: UNIT DOSE COMPOUND PR ONE (14:57)
--- NOTE | 2020-12-18 15:07 | Hospitalist Progress Note ---
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 Is being managed for the following: #. Acute on chronic respiratory failure with hypoxia and hypercapnia: #. COPD exacerbation: History of sleep disorder as well as COPD with chronic hypoxia and hypercapnia Follows with Marissa gonzales, has not come to appointment since last January. No evidence of pneumonia on imaging. On 12/08 evening, patient went into SVT/A. fib RVR--> code purple was called --> patient transferred to ICU overnight and required intubation--> extubated nasal cannula. Pulm consulted: Continue BiPAP during hospital stay and discharge home on Trelegy per Marissa's recommendation. c/w steroids and zithro for COPD exacerbation. Patient using BiPAP setting of 12/5 w/ RR 14 w/ his baseline O2 while in hospit al per RN/Respiratory therapist. Patient will need to follow-up with his manager estate as an outpatient for ongoing management of his COPD and use of noninvasive ventilation. Palliative on board: Patient reports no close family or friends, lives alone. Patient is DNR, limited interventions, trial of antibiotics and fluids with no long-term nutrition or hydration. Patient currently awake alert and oriented. No wheezing on exam. Stable COPD currently. Continue with BiPAP overnight and as needed ; nasal cannula during the day. Patient will need placement upon discharge. #. Constipation Patient reports no reported bowel since last 7 days, normal bowel sounds on exam, patient denies belly pain Patient diet has been minimal, recently improved, x-ray KUB moderate to extensive fecal retention with no obstructive pattern Will try lactulose enema, c/w other laxatives. #. Lung nodule: Outpatient CT chest wo con from 2018 showing spiculated left upper lobe lung nodule measuring up to 1.5 cm that was highly concerning for malignancy PET-CT or percutaneous biopsy recommended at that time. Patient not compliant with either Routine CT obtained while inpatient showed severe emphysema with bronchial wall thickening suggestive of bronchitis and right basilar mucous plugging. Trace pleural effusion. T8 and T9 compression deformities new from 06/16/2020. #. HTN (hypertension): Normotensive. Continue lisinopril, verapamil #. Diabetes mellitus, type II: A1c 5.1 in April 2020, no longer on diabetic medications, carb consistent diet #. Paroxysmal atrial fibrillation: Not on anticoagulation secondary to a history of bleeding and compliance issues. Cardiology on board: Continue verapamil and amiodarone. Poor candidate for long-term anticoagulation given his comorbidities/fall risk/compliance issue. Heparin drip DC'd and transitioned to prophylactic Lovenox dose. #. Alcohol dependence: History of rehab earlier this year. At risk protocol ordered Patient currently stable at bedside. #. Hypothyroidism: Continue levothyroxine #. BPH (benign prostatic hyperplasia): Bladder scan PRN #. Mood disorder: Continue sertraline #. Other: Patient has not moved his bowels for few days, will give 1 dose of lactulose. Follow. DVT Ppx: lovenox sq Code status: DNR/DNI PCP: Dr. Rizzo Dispo: PCU PT recommends LTAC/SNF/ rehab. CM working on placement. Patient says that his brother Osmin lives in [place] and they are not close, did not speak for years. He also says he does not have any other family or close friends. Says that he lives alone. Patient stable for discharge when bed available after patient moves bowel . Admission and Anticipated Discharge Date Admission Date: December 06, 2020 Subjective Patient was lying in bed, on 2 L nasal cannula oxygen, no acute events overnight per RN, JERARDO. Patient is eating okay. Patient has not had bowel movement since last 8 days. Will give trial of lactulose enema, follow-up of x-ray KUB. Normal bowel sounds on exam and patient does not complain of belly pain. Patient denies headache/dizziness/increased shortness of breath/palpitation/other review of symptoms. Physical Exam Physical Exam: GENERAL: Alert and oriented x3. NAD, on 2L HEENT: No pallor, no icterus. Pupils equal, round and reactive to light. Oral mucosa moist. NECK: No JVD, no neck masses. HEART: S1 and S2 heard. Regular rate and rhythm. No murmur, no gallop. RESPIRATORY SYSTEM: Normal AP diameter. No accessory muscle use. No wheezing, no crackles. Decreased Breath sound, no wheezing. ABDOMEN: Soft, bowel sounds present, nontender, no distention. CENTRAL NERVOUS SYSTEM: Alert and oriented x3. No facial droop. Speech is clear. Obeys simple commands. Moves extremities. EXTREMITIES: No edema, no erythema seen. UC w/ yellow urine collection. Results & Data Results & Data ([facility]) Vital Signs (Past 12 Hours) Vital Signs Temp Pulse Resp BP Pulse Ox 12/18/20 14:57 68 16 95 12/18/20 11:55 36.8 C 71 20 98/59 L 95 12/18/20 10:29 68 18 98 12/18/20 07:44 36.9 C 69 22 118/56 L 98 12/18/20 06:02 61 18 100
[2020-12-18] MEDS ORDERED: LACTULOSE 200 GM, WATER, STERILE IRRIG 700 ML, BARCODE IDENTIFIER 1 EA PR ONE (15:30)
[2020-12-18] MEDS: POLYETHYLENE (MIRALAX) 17 GM PACK PO SCH (16:13)
[2020-12-18] MEDS: GABAPENTIN 250 MG/5 ML 470 ML BTL PO SCH (21:22)
[2020-12-19] MEDS: LEVOTHYROXINE SODIUM 50 MCG TABLET PO SCH (06:26)
[2020-12-19] MEDS: ALBUT/IPRATROP 3MG/0.5MG NEB 3 ML VIAL NEB SCH ×2 (07:14→11:11)
[2020-12-19 08:00] LABS: BUN Creatinine Ratio 20.1 (10-20); Calcium 8.5 mg/dl (8.5-10.1); Creatinine Clr Calc Pharmacy 45.5 ml/min; Est GFR (African American) 73.1 ml/min; Potassium 4.5 mmol/L (3.5-5.1)
[2020-12-19] MEDS: ENOXAPARIN INJ 40 MG/0.4 ML SYR SQ SCH (08:48)
[2020-12-19] MEDS: POLYETHYLENE (MIRALAX) 17 GM PACK PO SCH (08:49)
[2020-12-19] MEDS: predniSONE 20 MG TAB PO SCH (08:50)
[2020-12-19] MEDS: DOXYCYCLINE HYCLATE 100 MG CAP PO SCH (08:50)
[2020-12-19] MEDS: lisinopril 10 MG TAB PO SCH (08:50)
[2020-12-19] MEDS: SERTRALINE HCL 100 MG TABLET PO SCH (08:50)
[2020-12-19] MEDS: VERAPAMIL HCL 120 MG TABCR PO SCH (08:50)
[2020-12-19] MEDS: AMIODARONE 200 MG TAB PO SCH ×2 (08:50→12:06)
[2020-12-19] MEDS: MULTIVITAMIN TAB PO SCH (08:51)
[2020-12-19] MEDS: MONTELUKAST SODIUM 10 MG TABLET PO SCH (08:51)
[2020-12-19] MEDS: FOLIC ACID 1 MG TAB PO SCH (08:51)
[2020-12-19] MEDS: UMECLIDINIUM/VILANTEROL 62.5/25MCG 7 PUFFS/INHALER INH SCH (08:51)
[2020-12-19] MEDS: DOCUSATE SODIUM 100 MG CAP PO SCH (08:51)
[2020-12-19] MEDS: NICOTINE 14 MG/24 HR PATCH TD SCH (08:51)
[2020-12-19] MEDS: THIAMINE HCL 100 MG TAB PO SCH (08:51)
[2020-12-19] MEDS: FLUTICASONE FUROATE 100MCG 14 PUFFS/INHALER INH SCH (08:52)
[2020-12-19] MEDS: PANTOprazole 40 MG TAB PO SCH (12:06)
--- NOTE | 2020-12-19 12:39 | Discharge Summary ---
Date of Service December 19, 2020 Admission HPI Per Admitting Provider This is a 70-year-old male with past medical history of COPD, chronic respiratory failure on 3-4 L nasal cannula O2, hypothyroidism, type 2 diabetes, paroxysmal atrial fibrillation, hypertension, ongoing tobacco use, BPH and other medical problems listed below who presents with progressive shortness of breath and cough for the past 2 weeks. [place] worse this morning and was unable to get out of bed on his own due to feeling dyspneic and shaky. Was brought via in via EMS. Has been using home nebulizers and O2. Tremors have been present for the past few weeks and he notices them in both arms and legs intermittently. Has felt more "foggy" over the past few days. Denies any fever, chills, headache, CP or abdominal pain. No dysuria or diarrhea. No falls. Did received covid vaccination. Lives alone and ambulates with walker. Admission Exam Per Admitting Provider On BiPAP Lungs: difficult exam due to being on BiPAP, fair air entry b/l, no wheezing Cards: normal S1/S2, no murmur Abd: ND, soft, NT B/L LE: trace pitting edema Principal Diagnosis Acute on chronic respiratory failure with hypoxia and hypercapnia COPD exacerbation Constipation Paroxysmal atrial fibrillation Alcohol abuse and tobacco abuse. Discharge Exam GENERAL: Alert and oriented x3. NAD, on 2L HEENT: No pallor, no icterus. Pupils equal, round and reactive to light. Oral mucosa moist. NECK: No JVD, no neck masses. HEART: S1 and S2 heard. Regular rate and rhythm. No murmur, no gallop. RESPIRATORY SYSTEM: Normal AP diameter. No accessory muscle use. No wheezing, no crackles. Decreased Breath sound, no wheezing. ABDOMEN: Soft, bowel sounds present, nontender, no distention. CENTRAL NERVOUS SYSTEM: Alert and oriented x3. No facial droop. Speech is clear. Obeys simple commands. Moves extremities. EXTREMITIES: No edema, no erythema seen. UC w/ yellow urine collection. Discharge Data Allergies Allergy/AdvReac Type Severity Reaction Status Date / Time turkey Allergy Unknown Verified 12/06/20 15:22 lorazepam [From Ativan] AdvReac Intermediate oversedation Verified 12/08/20 01:58 from 3 mg ativan Consultations 12/06/20 16:41 ED Decision to Admit Stat 12/07/20 08:54 Consult Pulmonology Routine 12/08/20 12:25 Consult Palliative Care Routine 12/08/20 18:13 Consult Supervisor Residential Stat 12/09/20 09:30 Consult Palliative Care Routine 12/10/20 16:26 Consult Cardiology Routine 12/10/20 23:07 Consult Neurology Routine 12/12/20 08:21 Consult Psychiatry Routine Ordered Studies 12/06/20 20:01 CT chest diagnostic wo con Routine 12/07/20 10:07 CT head/brain wo con Stat 12/12/20 13:00 FL video swallow Routine Hospital Course (1) Acute on chronic respiratory failure with hypoxia and hypercapnia: (2) COPD exacerbation: 70-year-old male with past medical history of COPD, chronic respiratory failure on 3-4 L nasal cannula O2, hypothyroidism, type 2 diabetes, paroxysmal atrial fibrillation, hypertension, ongoing tobacco use, BPH who presents 12/06 with progressive shortness of breath and cough for the past 2 weeks 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 He was managed for the following: #. Acute on chronic respiratory failure with hypoxia and hypercapnia: #. COPD exacerbation: History of sleep disorder as well as COPD with chronic hypoxia and hypercapnia Follows with Marissa gonzales, has not come to appointment since last January. No evidence of pneumonia on imaging. On 12/08 evening, patient went into SVT/A. fib RVR--> code purple was called --> patient transferred to ICU overnight and required intubation--> extubated nasal cannula. Pulm consulted: Continue BiPAP during hospital stay and discharge home on Trelegy per Marissa's recommendation. c/w steroids and zithro for COPD exacerbation. Patient using BiPAP setting of 12/5 w/ RR 14 w/ his baseline O2 while in hospital per RN/Respiratory therapist. 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 Palliative on board: Patient reports no close family or friends, lives alone. Patient is DNR, limited interventions, trial of antibiotics and fluids with no long-term nutrition or hydration. Patient currently awake alert and oriented on the day of discharge. No wheezing on exam. Stable COPD currently. Continue with BiPAP overnight and as needed ; nasal cannula during the day. Azithromycin changed to doxycycline for concerns of QT prolongation. Patient being discharged to SNF. #. Constipation Patient did not move bowel for 7 days, finally moved bowel after multiple bowel regimens on 12/18. Patient being discharged with laxatives, use as needed. Incorporate high-fiber ingredients in the diet. #. Lung nodule: Outpatient CT chest wo con from 2018 showing spiculated left upper lobe lung nodule measuring up to 1.5 cm that was highly concerning for malignancy PET-CT or percutaneous biopsy recommended at that time. Patient not compliant with either Routine CT obtained while inpatient showed severe emphysema with bronchial wall thickening suggestive of bronchitis and right basilar mucous plugging. Trace pleural effusion. T8 and T9 compression deformities new from 06/16/2020. Patient to follow-up with his pulmonology within a week time of discharge. #. HTN (hypertension): Normotensive. Continuedlisinopril, verapamil #. Diabetes mellitus, type II: A1c 5.1 in April 2020, no longer on diabetic medications, carb consistent diet #. Paroxysmal atrial fibrillation: Not on anticoagulation secondary to a history of bleeding and compliance issues. Cardiology on board: Continue verapamil and amiodarone. Poor candidate for long-term anticoagulation given his comorbidities/fall risk/compliance issue. Heparin drip DC'd and transitioned to prophylactic Lovenox dose while in hospital. Patient not on any anticoagulation due to above. #. Alcohol dependence: History of rehab earlier this year. At risk protocol ordered Patient currently stable at bedside. #. Hypothyroidism: Continue levothyroxine #. BPH (benign prostatic hyperplasia): Bladder scan PRN #. Mood disorder: Continue sertraline #. Other: Patient has not moved his bowels for few days, will give 1 dose of lactulose. Follow. Code status: DNR/DNI PCP: Dr. Rizzo Patient being discharged to SNF with following instruction at time discharge: Complete abstinence from tobacco products. Complete abstinence from alcohol products. Per psychiatry you have been started on Wellbutrin XL to help with smoking cessation. Your azithromycin daily has been changed to doxycycline daily. Take medications as prescribed. Follow-up with your primary care physician within a week time. Follow-up with your lung doctor within a week time. Your BiPAP setting while in the hospital were 12/5 with respiratory rate of 14. Total Time Total Time Spent Total Time Spent (In Minutes): 50 Discharge Plan Discharge Items Patient Disposition: Transfer Correction Fac Reason For Visit: COPD EXACERBATION Discharge Diagnosis: Acute on chronic respiratory failure with hypoxia and hypercapnia COPD exacerbation Constipation Paroxysmal atrial fibrillation Alcohol abuse and tobacco abuse. Activity: Resume your previous activity Non-emergency contact: Primary Care Provider Call non-emergency contact if: you have any medication questions, your symptoms worsen and your temperature is above 101 Follow-up/Referrals: PCP,NO [Primary Care Provider] - Diet: Regular and Other - See Diet Comment Diet Comment: increase protein in diet. Addtl Attending Provider Instructions: Complete abstinence from tobacco products. Complete abstinence from alcohol products. Per psychiatry you have been started on Wellbutrin XL to help with smoking cessation. Your azithromycin daily has been changed to doxycycline daily. Take medications as prescribed. Follow-up with your primary care physician within a week time. Follow-up with your lung doctor within a week time. Your BiPAP setting while in the hospital were 12/5 with respiratory rate of 14. 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 Could also consider addition of naltrexone in the future for alcohol use if use escalates or becomes problematic. Pending Studies at Discharge: No Stand-Alone Forms: My [facility] Skilled Items Patient informed of condition?: Yes DNR: Yes Discharge Level of Care: Skilled Communicable Disease: No Discharge Prognosis: Stable Lines: None Urinary Catheter: No Medications and DC Order Prescriptions: New doxycycline hyclate 100 mg Capsule 100 mg PO DAILY Qty: 30 RF: 0 nicotine 7 mg/24 hr Patch 24 Hour 14 mg transdermal QAM 30 Days Qty: 30 RF: 0 amiodarone 200 mg Tablet 200 mg PO TIDM Qty: 90 RF: 0 polyethylene glycol 3350 [Miralax] 17 gram Powder In Packet 17 g PO DAILY PRN (Reason: constipation) Qty: 30 RF: 0 prednisone 20 mg Tablet 40 mg PO QAM 5 Days Qty: 10 RF: 0 thiamine HCl (vitamin B1) [Vitamin B-1] 100 mg Tablet 100 mg PO QAM 30 Days Qty: 30 RF: 0 folic acid 1 mg Tablet 1 mg PO QAM 30 Days Qty: 30 RF: 0 multivitamin with folic acid [Daily-Sd (with folic acid)] 400 mcg Tablet 1 tab PO QAM 30 Days Qty: 30 RF: 0 Remove Nicoderm Patch 1 dose Not Applicable DAILY@0859 30 Days RF: 0 bupropion HCl [Wellbutrin XL] 150 mg tablet extended release 24 hr 150 mg PO DAILY Qty: 30 RF: 0 Continued verapamil 120 mg Tablet Extended Release 120 mg PO QAM RF: 0 levothyroxine 50 mcg Tablet 50 mcg PO DAILY RF: 0 Trelegy Ellipta 100-62.5-25 mcg Blister With Device 1 inh INHALATION QAM RF: 0 sertraline 100 mg Tablet 100 mg PO QAM RF: 0 docusate sodium [Colace] 100 mg Capsule 100 mg PO QAM RF: 0 gabapentin 300 mg capsule 300 mg PO HS RF: 0 Combivent Respimat 20-100 mcg/actuation mist 1 puff INHALATION QID PRN (Reason: Shortness Of Breath Or Wheezing) RF: 0 albuterol sulfate 2.5 mg /3 mL (0.083 %) solution for nebulization 2.5 mg INHALATION Q4 PRN (Reason: Shortness Of Breath Or Wheezing) RF: 0 pantoprazole [Protonix] 40 mg tablet,delayed release (DR/EC) 40 mg PO DAILY Qty: 30 RF: 5 montelukast 10 mg tablet 10 mg PO DAILY RF: 0 atorvastatin 40 mg tablet 40 mg PO DAILY RF: 0 lisinopril 10 mg tablet 10 mg PO DAILY RF: 0 Discontinued azithromycin [Zithromax] 250 mg tablet 250 mg PO UD 30 Days Qty: 30 RF: 3 Discharge Orders: Discharge Order (Routine); Ordered 12/19/20 Ordered By: Elinor Iqbal Admission Data Admit Date/Time: 12/06/20 16:51 Attending Provider: Elinor Iqbal Admit Provider: Rene Herrera Primary Care Provider: PCP,NO Other Providers: Kaz Arias ; Tammy Jain ; Rene Herrera ; Naveen Buchanan ; Surendra Wooten ; [place] ; Zachary Metz ; Michael Michael ; Adrián Ross ; Lula Persaud ; Fern Razo ; Lynda Wilkins ; Jack Newby ; Fern Parker ; Bill Smith ; Fern Kern ; Antoni Velazquez ; Alexandra Ortega ; Elizabeth Mayen ; Brianna Garcia ; Brenden Carpenter ; [facility]
== END 2020-12-19 15:15 | DRG 208 ==
LOC: ED 14:26 → SUATTDRO 16:51 → 2S 16:51 → 1E 12-08 18:11 → 2S 12-11 16:34